=== PATIENT | female | born 1940 | race Caucasian/White ===

== ENCOUNTER 2022-09-29 08:12 | Outpatient (OUT) | payer MEDICARE, BC, SELFPAY ==
--- NOTE | 2022-09-29 08:27 | CT_ITS ---
The [address] [address] Patient Name: GIOVANNA BAUM MRN: [id number] date: 1940 Sex: F Assigned Patient Location: CT Current Patient Location: CT Accession/Order Number: [id number] Exam Date: 09/29/2022 08:40 Report Date: 09/29/2022 08:56 At the request of: GIOVANA JUAN Procedure: CT chest wo con EXAM: CT chest wo con HISTORY: Multiple Pulmonary Nodules R91.8 COMPARISON: CT chest 07/19/2022. TECHNIQUE: Axial soft tissue and lung windows of the chest with coronal and sagittal reformats. Findings: Lack of intravenous contrast limits evaluation. Unremarkable thyroid gland. The heart is mildly enlarged. There are mild coronary artery and aortic annular calcifications. No pericardial effusion. The thoracic aorta is normal caliber with mild atherosclerotic disease. The pulmonary arteries are nondilated. The central airways are patent. No pneumothorax. No pleural effusion. No significant interval change in the previously identified pulmonary nodules. The largest is within the right upper lobe measuring approximately 1.0 cm. Stable small region of left apical scarring. No enlarged mediastinal, hilar, axillary or supraclavicular nodes. Calcified mediastinal and hilar nodes likely relating to prior granulomatous disease. The gallbladder is surgically absent. No aggressive sclerotic or lytic osseous lesions. Mild multilevel degenerative spondylosis. IMPRESSION: 1. Stable pulmonary nodules. Nodule follow-up guidelines: Single or multiple solid nodule(s) greater than 8 mm in size warrant referral to a specialist or lung nodule clinic to determine if a 3 month follow-up, PET/CT, tissue sampling, or other strategy is warranted. Electronically authenticated by: NAVYA GUY Date: 09/29/2022 08:56
== END 2022-09-29 08:13 ==
LOC: CT 08:21
PROVIDERS: PCP Internal Medicine; Visit Provider Internal Medicine
DX: R91.8 Other nonspecific abnormal finding of lung field (principal)
CPT/HCPCS: 71250

== ENCOUNTER 2022-10-05 14:06 | Outpatient (OUT) | payer MEDICARE, BC, SELFPAY ==
--- NOTE | 2022-10-05 10:10 | PM.CN ---
Consult Note: HPI Data of Consult Patient: known to practice within the last 3 years Consult date: 10/05/22 Requesting Physician: DAVID KAPOOR NP Primary Care Provider: KENTON MAURICIO Consult Narrative Reason for consult: back pain Narrative: Rupali is here for low back pain exacerbation. Pain is in bilat low back and radiates down legs to knees. R>L with intermittent tingling. She had caudal NKECHI 07/20 with 99% relief of pain. We discussed repeating the NKECHI procedure and she is agreeable to this. She is unable to be scheduled until end of September so will give rx for medrol dose pack. She has had steroid pack before without issues. No new sensorimotor sx or new bowel or bladder issues. cc:: CC: DAVID KAPOOR NP Review of Systems ROS Status of ROS 10 or more systems reviewed and unremarkable except as noted in history and below Musculoskeletal Reports: back pain Meds Home Medications and Allergies Allergies Allergy/AdvReac Type Severity Reaction Status Date / Time midazolam [From Versed] Allergy Unknown Verified 10/05/22 10:18 Exam Constitutional Documenting provider has reviewed patient's vital signs: yes Common normals: no apparent distress, oriented x3, healthy appearing, alert and well nourished General appearance: cooperative, comfortable and well developed Orientation/consciousness: Yes awake, Yes oriented to person, Yes oriented to place and Yes oriented to time HENMS Common normals: normocephalic, external ears normal and moist oral mucous membranes Respiratory Common normals: normal respiratory effort, no retractions and no use of accessory muscles Effort & inspection: able to speak in complete sentences Back & Pelvis Lumbar spine/lower back: normal to inspection, ROM limited, pain with ROM, paraspinal muscle tenderness, paraspinal muscle spasm, straight leg raise negative bilaterally and other soft tissue findings (positive facet load, positive michelle r>l) Extremity Common normals: normal to inspection, full ROM and normal capillary refill Other: muscle strength 4/5 bilat with intact sensation bilat LE Assessment and Plan Assessment and Plan (1) Lumbar radiculopathy: Plan Caudal NKECHI medrol dose pack
== END 2022-10-05 14:07 ==
LOC: PM 11-16 14:06
PROVIDERS: PCP Internal Medicine; Visit Provider Nurse Practitioner
DX: M54.16 Radiculopathy, lumbar region (principal)
CPT/HCPCS: G0463

== ENCOUNTER 2022-10-24 09:03 | Day surgery (SDC) | payer MEDICARE, BC, SELFPAY ==
--- NOTE | 2022-10-24 08:53 | P.ON_ITS ---
Date of procedure: 10/24/22 Procedure: Caudal Epidural Steroid Injection Pre-operative diagnosis includes Lumbar Radiculopathy, Postoperative diagnosis same, Under fluoroscopic guidance Solution used for the injection is Marcaine 0.25% Depo-Medrol 80 mg total of 5ml Omnipaque 3cc,3ml total, 1ml was used for injection to confirm needle tip placement within the epidural space. Anesthesia: local anesthesia using 2% lidocaine, total no more than 5 mL. Timeout process compliant After obtaining informed consent .the patient was brought to the procedure room .placed in the prone position . the area was prepped and draped in a sterile fashion utilizing betadine. 25 gauge needle was used to create a skin wheal over the sacral hiatus identified under fluoroscopy. 17 gauge touhy needle was inserted over the anesthetized area and directed to the prairie band hiatus under fluoroscopic guidance . after piercing the sacrococcygeal ligament. Confirmation of needle tip placement within the epidural space was accomplished with injection of contrast solution. the steroid solution was then injected .needle was removed post procedurally. patient transferred to recovery area in stable condition. Discharged home after meeting criteria.l Surgeon: Cecily Herrmann
[2022-10-24 09:44] VITALS: BP 102/55; PULSE 66; RESP 16; TEMP 36.4; O2SAT 96
[2022-10-24 10:47] VITALS: RESP 20
[2022-10-24 10:51] VITALS: BP 137/66; PULSE 54; O2SAT 97
[2022-10-24] MEDS: IOHEXOL 240 MG/ML - 10 ML VIAL INJ (10:54)
[2022-10-24] MEDS: BUPIVACAINE HCL 0.25% PF 25 MG/10 ML VIAL 2 ML INJ (10:54)
[2022-10-24] MEDS: 0.9 % SODIUM CHLORIDE 10 ML SYRINGE - SALINE FLUSH 2 ML INJ (10:54)
[2022-10-24] MEDS: LIDOCAINE HCL 2% PF 100 MG/5 ML VIAL 2 ML INJ (10:55)
[2022-10-24] MEDS: METHYLPREDNISOLONE ACETATE 80 MG/ML VIAL INJ (10:55)
[2022-10-24 10:56] VITALS: BP 129/60; PULSE 56; O2SAT 96
== END 2022-10-24 10:58 | disposition home or self-care (01) ==
LOC: SURGOUT 09:03
PROVIDERS: PCP Internal Medicine; Visit Provider Anesthesiology Pain Medicine
DX: M54.16 Radiculopathy, lumbar region (principal)
CPT/HCPCS: 62323; J1040; Q9966

== ENCOUNTER 2022-11-09 09:33 | Outpatient (OUT) | payer MEDICARE, BC, SELFPAY ==
--- NOTE | 2022-11-09 09:51 | P.CN_ITS ---
Consult Note: HPI Data of Consult Patient: known to practice within the last 3 years Consult date: 11/09/22 Requesting Physician: DAVID KAPOOR NP Primary Care Provider: Ovi Crooks DO Consult Narrative Narrative: Here for f/u to caudal NKECHI done 10/24/22. She recieved 100% relief of pain with increased fx continued through today. Pain is midback today and 1/10 worse with activity. No new sensorimotor or bowel or bladder issues. No adverse med SE. JORGE- 20 cc:: CC: DAVID KAPOOR NP Review of Systems ROS Status of ROS 10 or more systems reviewed and unremarkable except as noted in history and below Musculoskeletal Reports: back pain PFSH [facility], [facility] Medical History (Updated 11/09/22 @ 10:00 by DAVID KAPOOR NP) Surgical History Meds Home Medications and Allergies Home Medications Medication Instructions Recorded Confirmed Type atorvastatin 40 mg tablet 40 mg PO DAILY 10/05/22 10/24/22 History baclofen 5 mg tablet 5 mg PO BID 10/05/22 10/24/22 History escitalopram oxalate 10 mg tablet 10 mg PO DAILY 10/05/22 10/24/22 History (Lexapro) gabapentin 100 mg capsule 100 mg PO DAILY 10/05/22 10/24/22 History isosorbide mononitrate 30 mg 30 mg PO DAILY 10/05/22 10/24/22 History tablet,extended release 24 hr losartan 50 mg tablet 50 mg PO DAILY 10/05/22 10/24/22 History metoprolol tartrate 25 mg tablet 12.5 mg PO DAILY 10/05/22 10/24/22 History oxybutynin chloride 15 mg 15 mg PO DAILY 10/05/22 10/24/22 History tablet,extended release 24 hr Allergies Allergy/AdvReac Type Severity Reaction Status Date / Time midazolam [From Versed] Allergy Unknown Verified 10/24/22 09:51 Exam Constitutional Documenting provider has reviewed patient's vital signs: yes Common normals: no apparent distress, average body habitus, oriented x3, no limitations, healthy appearing, alert and well nourished General appearance: cooperative, comfortable and well developed HENTX Common normals: normocephalic and moist oral mucous membranes Respiratory Common normals: normal respiratory effort, no retractions and no use of accessory muscles Effort & inspection: able to speak in complete sentences and symmetric chest movement Back & Pelvis Lumbar spine/lower back: normal to inspection, ROM limited, paraspinal muscle tenderness and paraspinal muscle spasm Other: muscle strength 4/5 bilat LE with intact sensation negative facet loading Extremity Common normals: normal to inspection, full ROM, normal capillary refill and no pedal edema Assessment and Plan Assessment and Plan (1) Lumbar radiculopathy: (2) Muscle spasm: Plan f/u in 3 months
== END 2022-11-09 09:34 | disposition home or self-care (01) ==
PROVIDERS: PCP Internal Medicine; Visit Provider Nurse Practitioner
DX: M54.16 Radiculopathy, lumbar region (principal); M62.838 Other muscle spasm
CPT/HCPCS: G0463

== ENCOUNTER 2023-01-22 14:11 | Outpatient (OUT) | payer MEDICARE, BC, SELFPAY ==
--- NOTE | 2023-01-22 14:18 | XR_ITS ---
The [place] [address] Patient Name: GIOVANNA BAUM MRN: [id number] date: 1940 Sex: F Assigned Patient Location: [facility] Current Patient Location: Accession/Order Number: [id number] Exam Date: 01/22/2023 14:22 Report Date: 01/23/2023 07:27 At the request of: KENTON MAURICIO Procedure: XR lumbar spine 2-3V EXAMINATION: XR lumbar spine 2-3V HISTORY: Acute right-sided low back pain w/o sciatica M54.50 COMPARISON: No relevant comparison available. FINDINGS: BONES: Levocurvature centered at L3. Moderate diffuse degenerative spondylosis and facet osteoarthropathy DISC SPACES: Moderate multilevel disc space narrowing with endplate sclerosis. Multilevel vacuum disks PARASPINOUS: Negative. No paraspinous abnormality is seen. OTHER: Right upper quadrant surgical clips from cholecystectomy XR/XR lumbar spine 2-3V IMPRESSION: Moderate degenerative changes with levocurvature Electronically authenticated by: GÓMEZ WALLER Date: 01/23/2023 07:27
--- NOTE | 2023-01-22 14:18 | XR_ITS ---
The [address] [address] Patient Name: GIOVANNA BAUM MRN: [id number] date: 1940 Sex: F Assigned Patient Location: [facility] Current Patient Location: [facility] Accession/Order Number: [id number] Exam Date: 01/22/2023 14:22 Report Date: 01/23/2023 07:29 At the request of: KENTON MAURICIO Procedure: XR hip RT 2V w/ pelvis PROCEDURE: XR hip RT 2V w/ pelvis COMPARISON: None. HISTORY: Right hip pain M25.551 FINDINGS: BONES:No acute fracture or dislocation. Moderate right and mild left hip osteoarthropathy with marginal osteophyte formation and joint space narrowing. Degenerative changes of the spine SOFT TISSUES:Negative. No visible soft tissue swelling. EFFUSION:None visible. OTHER: Negative. XR/XR hip RT 2V w/ pelvis IMPRESSION: Moderate right hip osteoarthritis Electronically authenticated by: GÓMEZ WALLER Date: 01/23/2023 07:29
== END 2023-01-22 14:12 | disposition home or self-care (01) ==
LOC: RAD 14:13
PROVIDERS: PCP Internal Medicine; Visit Provider Internal Medicine
DX: M54.50 Low back pain, unspecified (principal); M25.551 Pain in right hip; M16.11 Unilateral primary osteoarthritis, right hip
CPT/HCPCS: 72100; 73502

== ENCOUNTER 2023-02-07 08:52 | Outpatient (OUT) | payer MEDICARE, BC, SELFPAY ==
--- NOTE | 2023-02-07 09:05 | PM.CN ---
Consult Note: HPI Data of Consult Patient: known to practice within the last 3 years Requesting Physician: DAVID KAPOOR NP Primary Care Provider: Ovi Crooks DO Consult Narrative Reason for consult: f/u Narrative: Rupali Richardson a pleasant 82 year old female presents for evaluation of chronic low back pain. Patient recently had a fall and was seen by her family doctor who prescribed [place] for her pain which helped. Today rating pain 1/10 in low back. Patient had a caudal NKECHI in september which continues to provide 100% relief in radicular symptoms and 90% improvement in pain. cc:: CC: DAVID KAPOOR NP Review of Systems ROS Status of ROS 10 or more systems reviewed and unremarkable except as noted in history and below Musculoskeletal Reports: joint pain (right SIJ) PFSH PFS Medical History (Updated 02/07/23 @ 09:14 by Kelly Lott NP) Acid reflux ?K21.9 - Gastro-esophageal reflux disease without esophagitis (ICD-10) Atrial fibrillation ?I48.91 - Unspecified atrial fibrillation (ICD-10) Low back pain ?M54.50 - Low back pain, unspecified (ICD-10) Numbness and tingling ?R20.0 - Anesthesia of skin (ICD-10) ?R20.2 - Paresthesia of skin (ICD-10) Obesity ?E66.9 - Obesity, unspecified (ICD-10) Osteoarthritis ?M19.90 - Unspecified osteoarthritis, unspecified site (ICD-10) Sleep apnea ?G47.30 - Sleep apnea, unspecified (ICD-10) 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 - Acquired absence of unspecified finger(s) (ICD-10) Upper back pain ?M54.9 - Dorsalgia, unspecified (ICD-10) Surgical History H/O cardiac catheterization ?Z98.890 - Other specified postprocedural states (ICD-10) H/O hand surgery ?Z98.890 - Other specified postprocedural states (ICD-10) History of cholecystectomy ?Z90.49 - Acquired absence of other specified parts of digestive tract (ICD-10) History of hysterectomy ?Z90.710 - Acquired absence of both cervix and uterus (ICD-10) Hx of appendectomy ?Z90.49 - Acquired absence of other specified parts of digestive tract (ICD-10) S/P lumbar spine operation ?Z98.890 - Other specified postprocedural states (ICD-10) S/P sinus surgery ?Z98.890 - Other specified postprocedural states (ICD-10) S/P thoracentesis ?Z98.890 - Other specified postprocedural states (ICD-10) Meds Home Medications and Allergies Home Medications Medication Instructions Recorded Confirmed Type atorvastatin 40 mg tablet 40 mg PO DAILY 10/05/22 10/24/22 History baclofen 5 mg tablet 5 mg PO BID 10/05/22 10/24/22 History escitalopram oxalate 10 mg tablet 10 mg PO DAILY 10/05/22 10/24/22 History (Lexapro) gabapentin 100 mg capsule 100 mg PO DAILY 10/05/22 10/24/22 History isosorbide mononitrate 30 mg 30 mg PO DAILY 10/05/22 10/24/22 History tablet,extended release 24 hr losartan 50 mg tablet 50 mg PO DAILY 10/05/22 10/24/22 History metoprolol tartrate 25 mg tablet 12.5 mg PO DAILY 10/05/22 10/24/22 History oxybutynin chloride 15 mg 15 mg PO DAILY 10/05/22 10/24/22 History tablet,extended release 24 hr Allergies Allergy/AdvReac Type Severity Reaction Status Date / Time midazolam [From Versed] Allergy Unknown Verified 10/24/22 09:51 Exam Constitutional Documenting provider has reviewed patient's vital signs: yes Common normals: no apparent distress, oriented x3, healthy appearing, alert and well nourished General appearance: cooperative [facility] Common normals: normocephalic, hearing grossly normal bilaterally and moist oral mucous membranes Head and scalp: normocephalic Eye Common normals: PERRL Pupil: PERRL Neck & C-Spine Common normals: full ROM General: normal visual inspection Chest Common normals: inspection of chest normal Respiratory Common normals: normal respiratory effort, no retractions and no use of accessory muscles Back & Pelvis Lumbar spine/lower back: ROM limited and straight leg raise negative bilaterally Sacroiliac joints: SI joint(s) abnormal (right positive michelle, gaenslen, tender over PSIS) Extremity Common normals: normal to inspection and full ROM Neuro Common normals: oriented x3, CN's II-XII intact bilaterally, moves all extremities, no focal motor deficits, no sensory deficits noted and deep tendon reflexes 2+ bilaterally Sensorium/orientation: alert Motor exam: strength 5/5 throughout and no movement abnormalities noted Psych Common normals: mental status grossly normal, thought process normal, cooperative, affect normal, speech normal and activity/motor behavior normal Speech: normal speech Thought process: normal thought process Results Additional Findings Additional findings: I have checked an OARRS report on this patient today and there are no aberrancies noted in the prescribing history.?? A drug screen was completed and reviewed within the last year, and if there has not been a drug screen completed we ordered one today to monitor higher risk, state monitored pain medication use. As part of providing excellent, safe, comprehensive care, the following was completed at our patient's visit: 1. A medication reconciliation and review to ensure accurate knowledge of current/active medications, including asking our patients to inform us about any upuc-muo-gmlritc medications or herbal remedies/nutritional supplements/alternative remedies. 2. A review to specifically ensure our patients have had annual screening for: elevated body mass index (BMI), tobacco use, screening for depression, and screening for unhealthy alcohol use. When screening is concerning, patients are provided with education and the specific recommendation to discuss the concerning health issue and treatment options with their primary care provider. Assessment and Plan Assessment and Plan (1) Chronic right sacroiliac joint pain: (2) Lumbar radiculopathy: Assessment and Plan: symptoms resolved since caudal NKECHI, ongoing relief >80% (3) Muscle spasm: (4) Lumbar spondylosis: Plan declining SIJ injection on right side medications managed through PCP pain well controlled f/u PRN
== END 2023-02-07 08:53 | disposition home or self-care (01) ==
LOC: PM 08:53
PROVIDERS: PCP Internal Medicine; Visit Provider Nurse Practitioner
DX: M47.26 Other spondylosis with radiculopathy, lumbar region (principal); M62.838 Other muscle spasm; M53.3 Sacrococcygeal disorders, not elsewhere classified; G89.29 Other chronic pain
CPT/HCPCS: G0463

== ENCOUNTER 2023-02-21 10:48 | Outpatient (OUT) | payer MEDICARE, BC, SELFPAY ==
--- NOTE | 2023-02-21 11:01 | MR_ITS ---
The [address] [address] Patient Name: GIOVANNA BAUM MRN: [facility]:[id number] date: 1940 Sex: F Assigned Patient Location: LAB Current Patient Location: LAB Accession/Order Number: [id number] Exam Date: 02/21/2023 11:10 Report Date: 02/21/2023 12:29 At the request of: KENTON MAURICIO Procedure: MR head/brain wo/w con EXAM: MR head/brain wo/w con HISTORY: Jerking Movements Of Extremities R25.2, Left Leg Weakness COMPARISON: None. TECHNIQUE: Multiplanar multisequence MR imaging of the brain was performed with and without intravenous contrast. FINDINGS: Motion artifact mildly degrades evaluation of multiple sequences. Calvarium/skull base: No focal marrow replacing lesion suggestive of neoplasm. Orbits: Bilateral platinum ocular lens replacements. Paranasal sinuses: Inferior right maxillary sinus mucosal retention cyst versus polyp. Brain: No restricted diffusion. No significant white matter disease. Parenchymal volume is grossly appropriate. No abnormal intracranial enhancement. No mass effect, hemorrhage, or hydrocephalus. Grossly normal flow-related signal in the major intracranial arteries and dural sinuses. MR/MR head/brain wo/w con IMPRESSION: No acute intracranial process. Grossly unremarkable appearance of brain parenchyma for patient's age. Electronically authenticated by: JUAN JOSE ALLEN Date: 02/21/2023 12:29
[2023-02-21 11:08] LABS: Estimated GFR (African America >60 (>=60); Estimated GFR (Non-African Ame 50 (>=60)
== END 2023-02-21 10:49 | disposition home or self-care (01) ==
LOC: LAB 10:48
PROVIDERS: PCP Internal Medicine; Visit Provider Internal Medicine
DX: R29.898 Other symptoms and signs involving the musculoskeletal system (principal); R25.2 Cramp and spasm
CPT/HCPCS: 36415; 70553; 82565; A9575

== ENCOUNTER 2023-02-22 12:22 | Outpatient (OUT) | payer MEDICARE, BC, SELFPAY ==
[2023-02-22 12:40] LABS: Basophils Percent Auto 0.1 % (0.2-2.0); Eosinophils Absolute Auto 0.1 10^3/uL (0.0-0.7); Eosinophils Percent Auto 1.6 % (0.9-7.0); Hematocrit 37.9 % (36.0-48.0); Hemoglobin 12.2 g/dL (12.0-16.0); Immature Granulocytes Abs Auto 0.03 10^3/uL (0.00-0.03); Immature Granulocytes Pct Auto 0.4 % (0.0-0.5); Lymphocytes Absolute Auto 1.8 10^3/uL (1.2-3.8); Lymphocytes Percent Auto 24.5 % (20.5-60.0); Mean Corpuscular HGB Conc 32.2 g/dL (29.9-35.2); Mean Corpuscular Hemoglobin 30.1 pg (26.7-34.0); Mean Corpuscular Volume 93.6 fL (81.0-99.0); Mean Platelet Volume 11.2 fL (9.5-13.5); Monocytes Absolute Auto 0.6 10^3/uL (0.3-0.8); Neutrophils Absolute Auto 4.9 10^3/uL (1.4-6.5); Neutrophils Percent Auto 65.4 % (43.0-75.0); Platelet Count 199 10^3/uL (150-450); Red Blood Count 4.05 10^6/uL (4.20-5.40); White Blood Count 7.4 10^3/uL (4.0-11.0)
[2023-02-22 13:54] LABS: Alanine Aminotransferase 23 U/L (14-59); Albumin Globulin Ratio 1.1; Albumin Level 3.5 g/dL (3.4-5.0); Alkaline Phosphatase 81 U/L (46-116); Anion Gap 9.5; Aspartate Amino Transferase 17 U/L (15-37); BUN Creatinine Ratio 14.8; Bilirubin Total 1.1 mg/dL (0.2-1.0); Calcium 9.5 mg/dL (8.5-10.1); Carbon Dioxide 30.5 mmol/L (21.0-32.0); Chloride 103 mmol/L (98-107); Estimated GFR (African America 46 (>=60); Estimated GFR (Non-African Ame 38 (>=60); Globulin 3.2 g/dL; Glucose 110 mg/dL (74-106); Sodium 139 mmol/L (136-145); Thyroid Stimulating Hormone 1.676 uIU/mL (0.358-3.740); Total Protein 6.7 g/dL (6.4-8.2)
== END 2023-02-22 12:23 | disposition home or self-care (01) ==
LOC: LAB 12:26
PROVIDERS: PCP Internal Medicine; Visit Provider Internal Medicine
DX: R29.898 Other symptoms and signs involving the musculoskeletal system (principal); R25.2 Cramp and spasm; I10 Essential (primary) hypertension
CPT/HCPCS: 36415; 80053; 82607; 84443; 85025

== ENCOUNTER 2023-02-28 11:14 | Outpatient (OUT) | payer MEDICARE, BC, SELFPAY ==
--- NOTE | 2023-02-28 11:17 | US_ITS ---
[address] [address] Patient Name: GIOVANNA BAUM MRN: [id number] date: 1940 Sex: F Assigned Patient Location: Current Patient Location: [place] Accession/Order Number: [id number] Exam Date: 02/28/2023 11:20 Report Date: 02/28/2023 16:54 At the request of: KENTON MAURICIO Procedure: US carotid duplex BI EXAMINATION: US carotid duplex BI HISTORY: Cerebral Infraction, Thrombosis Of Cerebral Arteries COMPARISON: No relevant comparison available. TECHNIQUE: Duplex Doppler ultrasound analysis of carotid and vertebral arteries. . Bilateral carotid arterial duplex examination was performed using B-mode, color flow and spectral analysis. Carotid stenosis is reported according to validated velocity parameters, similar to NASCET criteria. FINDINGS: RIGHT CAROTID ARTERY No significant atherosclerotic plaque Subclavian: PSV: 131.9 cm/s cm/s EDV: 3.7 cm/s cm/s CCA: Prox: PSV: 74.7 cm/s cm/s EDV: 19.5 cm/s cm/s Mid: PSV: 60.9 cm/s cm/s EDV: 15.6 cm/s cm/s Distal: PSV: 58.1 cm/s cm/s EDV: 12.8 cm/s cm/s BULB: PSV: 52.9 cm/s cm/s EDV: 15.4 cm/s cm/s ICA: Prox: PSV: 45.2 cm/s cm/s EDV: 15.4 cm/s cm/s Mid: PSV: 68.4 cm/s cm/s EDV: 23.2 cm/s cm/s Distal: PSV: 35.5 cm/s cm/s EDV: 13.5 cm/s cm/s ECA: PSV: 76.8 cm/s cm/s EDV: 8.7 cm/s cm/s VERTEBRAL: PSV: 36.1 cm/s cm/s EDV: 12.0 cm/s cm/s, antegrade ICA/CCA ratio: PSV: 0.9 EDV: 1.2 LEFT CAROTID ARTERY No significant atherosclerotic plaque Subclavian: PSV: 155.4 cm/s cm/s EDV: 0.0 cm/s CCA: Prox: PSV: 77.4 cm/s cm/s EDV: 20.8 cm/s Mid: PSV: 77.4 cm/s cm/s EDV: 19.2 cm/s Distal: PSV: 72.5 cm/s cm/s EDV: 20.8 cm/s BULB: PSV: 46.0 cm/s cm/s EDV: 9.8 cm/s ICA: Prox: PSV: 47.1 cm/s cm/s EDV: 12.0 cm/s Mid: PSV: 50.4 cm/s cm/s EDV: 18.6 cm/s Distal: PSV: 64.7 cm/s cm/s EDV: 24.1 cm/s ECA: PSV: 93.5 cm/s cm/s EDV: 9.5 cm/s VERTEBRAL: PSV: 37.3 cm/s cm/s EDV: 12.0 cm/s , antegrade ICA/CCA ratio: PSV: 0.8 EDV: 1.2 US/US carotid duplex BI IMPRESSION: 0-49% flow stenosis bilateral internal carotid arteries Spectral Doppler US Thresholds (Reference: Omar EG, et al. Radiology 2000; 214:247-252) Stenosis (%) PSV (cm/sec) VICA/VCCA 0-49 <150 <2.5 50-69 150-225 2.5-4.0 >70 >225 >4.0 Electronically authenticated by: GÓMEZ WALLER Date: 02/28/2023 16:54
--- NOTE | 2023-02-28 12:39 | CA_ITS ---
The [facility] Test Date: 2023-03-12 Pat Name: GIOVANNA BAUM Department: Room: - Gender: Female [employer]ger: : 1940 Requested By: KENTON MAURICIO Order Number: [id number] Reading MD: KENTON MAURICIO Interpretive Statements Predominant rhythm is sinus with average rate of 62 bpm Tachycardia - max rate of 148 bpm w/ episode of SVT - 4 episodes of PSVT w/ longest duration of 6 beats Bradycardia - min rate of 44 bpm - longest episode of 3h 43min 17sec w/ rates between 45-55 bpm Ventricular ectopy - 927 total (<1%) - 925 PVC - 2 couplets Patient triggered events: none IMpression: Predominant rhythm is sinus with average rate of 62 bpm Fastest rate of 148 bpm and slowest rate of 44 bpm 925 PVC, 2 couplets No atrial fibrillation No pauses or blocks Electronically Signed On 03-13-2023 7:19:45 EST by KENTON MAURICIO
== END 2023-02-28 11:15 | disposition home or self-care (01) ==
LOC: US 11:14
PROVIDERS: PCP Internal Medicine; Visit Provider Internal Medicine
DX: I63.323 Cerebral infarction due to thrombosis of bilateral anterior cerebral arteries (principal); I25.10 Atherosclerotic heart disease of native coronary artery without angina pectoris; I10 Essential (primary) hypertension; R09.89 Other specified symptoms and signs involving the circulatory and respiratory systems
CPT/HCPCS: 93242; 93880

== ENCOUNTER 2023-03-02 08:48 | Outpatient (OUT) | payer MEDICARE, BC, SELFPAY ==
[2023-03-02 10:46] LABS: Chol HDL Ratio 2.1; Cholesterol 130 mg/dL (<=200); HDL Cholesterol 62 mg/dL (40-60); Triglycerides 124 mg/dL (<=150); VLDL CHOLESTEROL 24.8 mg/dL
[2023-03-02 12:15] LABS: Estimated Average Glucose 117 mg/dL; Glycohemoglobin A1C 5.7 % (4.5-6.2)
== END 2023-03-02 08:49 | disposition home or self-care (01) ==
LOC: LAB 08:50
PROVIDERS: PCP Internal Medicine; Visit Provider Psychiatry & Neurology Neurology
DX: I63.9 Cerebral infarction, unspecified (principal)
CPT/HCPCS: 36415; 80061; 83036

== ENCOUNTER 2023-03-06 12:48 | Outpatient (OUT) | payer MEDICARE, BC, SELFPAY ==
--- NOTE | 2023-03-06 13:41 | CA_ITS ---
Patient Name GIOVANNA BAUM MR# Age Sex Date Time [id number] F 03/06/2023 12:59 At the Request Of DR Ovi Crooks D.O. ECHOCARDIOGRAM REPORT PROCEDURE: CA ECHO DOPPLER COMPLETE INDICATIONS: ASHD, CVA, Primary HTN COMPARISON: None. DESCRIPTION: COMPLETE ECHOCARDIOGRAM Real-time transthoracic echocardiography with 2D, M-mode, spectral and color flow Doppler performed. QUALITY: Technical quality was good. LEFT VENTRICLE: Normal chamber size. Mild concentric left ventricular hypertrophy. LV EF: Global left ventricular systolic function is normal; visually estimated ejection fraction is 55-60% DIASTOLIC: Normal diastolic function. ATRIAL SEPTUM: Visually appears intact. LEFT ATRIUM: Normal chamber size. RIGHT ATRIUM: Normal chamber size. RIGHT VENTRICLE: Normal chamber size. Normal right ventricular systolic function. TRICUSPID VALVE: Normal mobility and thickness. Mild regurgitation. Doppler studies reveal mildly (35-45) elevated right sided pressures. RVSP 37 mmHg MITRAL VALVE: Normal mobility and thickness. No evidence of mitral valve stenosis. There is no mitral annular calcification. Trivial mitral regurgitation. AORTIC VALVE: Normal trileaflet appearance. No visible sclerosis. Normal leaflet mobility. No evidence of aortic valve stenosis. No aortic regurgitation. AORTIC ROOT: Normal diameter and appearance. PULMONIC VALVE: Not well visualized. No stenosis. No regurgitation. PERICARDIUM: Anterior free space; trivial effusion vs fat pad. IVC: Collapses with inspirations. CONCLUSION: 1. Global left ventricular systolic function is normal; visually estimated ejection fraction is 55-60% 2. The right ventricle is normal in size and systolic function 3. Normal diastolic function 4. Mildly increased left ventricular wall thickness 5. Mild tricuspid regurgitation 6. Right ventricular systolic pressure is mildly elevated; RVSP 37 mmHg 7. Anterior free space; trivial effusion versus fat pad Adult Echocardiography Procedure Report Left Ventricle LVEDD (3.7 - 5.6 cm): 4.36 cm LVESD (2.2 - 4.0 cm): 2.34 cm LVIVS thickness (0.6 - 1.2 cm): 1.07 cm LVPW thickness (0.5 - 1.0 cm): 0.97 cm e': 0.08 m/s E - e': 8.74 LVOT Max Gradient: 2.51 mm[Hg] LVOT Area (cm2): 0.79 m/s Peak Velocity (LVOT): 0.79 m/s LVOT Diameter 1.96 cm Left Atrium LA Volume Index (2D A2C): 35.42 ml/m2 Left Atrium Systolic Dimension: 4.03 cm Mitral Valve MV E to A Ratio: 0.82 Mitral Valve A-Wave Peak Velocity: 0.82 m/s Mitral Valve E-Wave Peak Velocity: 0.67 m/s Right Ventricle RV Internal Diastolic Dimension: 4.16 cm Aorta AO Root Diam: 2.71 cm Ascending Ao Diam: 2.47 cm Aortic Valve AoV Area (Peak Jose Alfredo): 1.80 cm2, 1.80 cm2 Peak Velocity(Antegrade Flow): 1.33 m/s Peak Gradient(Antegrade Flow): 7.08 mm[Hg] Tricuspid Valve Peak Velocity (Regurgitant Flow): 2.53 m/s, 2.54 m/s, 2.67 m/s, 2.93 m/s Pulmonic Valve Peak Velocity: 1.04 m/s Peak Gradient: 4.86 mm[Hg], 3.79 mm[Hg] Right Atrium Right Atrium Systolic Pressure: 38.20 ml, 38.20 ml Dictated by: Keshav Sanchez M.D. on 03/07/2023 at 12:30 Approved by: Keshav Sanchez M.D. on 03/07/2023 at 12:32
== END 2023-03-06 12:49 | disposition home or self-care (01) ==
LOC: CARD 12:48
PROVIDERS: PCP Internal Medicine; Visit Provider Internal Medicine
DX: I63.323 Cerebral infarction due to thrombosis of bilateral anterior cerebral arteries (principal); I25.10 Atherosclerotic heart disease of native coronary artery without angina pectoris; I10 Essential (primary) hypertension
CPT/HCPCS: 93306

== ENCOUNTER 2023-03-07 13:31 | Outpatient (OUT) | payer MEDICARE, BC, SELFPAY ==
--- NOTE | 2023-03-07 13:37 | MR_ITS ---
[address] [address] Patient Name: GIOVANNA BAUM MRN: [id number] date: 1940 Sex: F Assigned Patient Location: MRI Current Patient Location: MRI Accession/Order Number: [id number] Exam Date: 03/07/2023 13:42 Report Date: 03/07/2023 14:37 At the request of: CAROLINA LEO Procedure: MR angio head wo con EXAMINATION: MR angio head wo con HISTORY: Cerebral Infraction Left Hemisphere I63.9 COMPARISON: MRI brain 02/21/2023 TECHNIQUE: MR angiography was performed in the usual manner. Multiplanar reconstructed 2D and 3D images of the cerebral arteries were created and interpreted. FINDINGS: INTERNAL CAROTIDS: No visible stenosis or aneurysm. ANTERIOR CEREBRALS: No visible stenosis or aneurysm. MIDDLE CEREBRALS: No visible stenosis or aneurysm. POSTERIOR CEREBRALS: No visible stenosis or aneurysm. BASILAR: No visible stenosis or aneurysm. VERTEBRALS: No visible stenosis or aneurysm. OTHER: Negative with no evidence of a vascular malformation. MR/MR angio head wo con IMPRESSION: 1. Normal MR angiography of the brain. Electronically authenticated by: WILLIAM BERMEO Date: 03/07/2023 14:37
--- OUTSIDE RECORDS SUMMARY | 2023-04-17 15:21 | XMS_ITS | CCD ---
Author Name Unknown Address [address] [place] [address] Organization [facility] Care Team Providers Care Program Professional Name Role Phone Zahler, Quinn Unavailable Unavailable Zahler, Quinn Unavailable Unavailable Shelleyhler, Quinn Unavailable Unavailable OVI CROOKS~[id number] UNKNOWN Unavailable Unavailable Zahler, Quinn Unavailable Unavailable Zahler, Quinn Unavailable Unavailable Kala, Quinn Unavailable Unavailable OVI CROOKS~[id number] UNKNOWN Unavailable Unavailable MD Brina Morrissey Attending Provider Brina Morrissey Unavailable Ovi Crooks Unavailable DR OVI CROOKS Primary Care Unavailable CRISTOBAL .MARY Admitting Unavailable CRISTOBAL .MARY Attending Unavailable JESSICA ., DR ELIAZBETH Cerna Attending Unavailable JESSICA ., DR ELIZABETH Cerna Consulting Unavailable JESSICA ., DR ELIZABETH Cerna Admitting Unavailable BALL, DR FUNG Primary Care Unavailable HALKER ., DAVID Admitting Unavailable HALKER ., DAVID Attending Unavailable BALL, DR FUNG Primary Care Unavailable BALL, DR FUNG Admitting Unavailable BALL, DR FUNG Attending Unavailable BALL, DR FUNG Consulting Unavailable VALERIY, DR FUNG Primary Care Unavailable WEST, DR GÓMEZ Mclean Consulting Unavailable VALERIY, DR FUNG Admitting Unavailable BALL, DR FUNG Primary Care Unavailable BALL, DR FUNG Attending Unavailable BALL, DR FUNG Consulting Unavailable WEST, DR GÓMEZ Mclean Consulting Unavailable VALERIY, DR FUNG Primary Care Unavailable JESSICA ., DR ELIZABETH Cerna Attending Unavailable JESSICA ., DR ELIZABETH Cerna Consulting Unavailable JESSICA ., DR ELIZABETH Cerna Admitting Unavailable BALL, DR FUNG Primary Care Unavailable JESSICA ., DR ELIZABETH Cerna Attending Unavailable JESSICA ., DR ELIZABETH Cerna Admitting Unavailable LAKSHMIPATHY ., NARENDRANBRETT Admitting Elodia vailable LAKSHMIPATHY ., NARMARIA C Attending Elodia vailable LAKSHMIPATHY ., NARENDRANATH Consulting Elodia vailable BALL, DR FUNG Primary Care Unavailable CRISTOBAL ., MARY Consulting Unavailable JESSICA ., DR ELIZABETH Cerna Admitting Unavailable JESISCA ., DR ELIZABETH Cerna Attending Unavailable BALL, DR FUNG Primary Care Unavailable JESSICA ., DR ELIZABETH Cerna Attending Unavailable JESSICA ., DR ELIZABETH Cerna Consulting Unavailable JESSICA ., DR ELIZABETH Cerna Admitting Unavailable BALL, DR FUNG Primary Care Unavailable JLUISLLUVIA Consulting Unavailable JESSICA ., DR ELIZABETH Cerna Admitting Unavailable JESSICA ., DR ELIZABETH Cerna Attending Unavailable JESSICA ., DR ELIZABETH Cerna Consulting Unavailable BALL, DR FUNG Primary Care Unavailable CRISTOBAL ., MARY Consulting Unavailable JESSICA ., DR ELIZABETH Cerna Attending Unavailable JESSICA ., DR ELIZABETH Cerna Admitting Unavailable BALL, DR FUNG Primary Care Unavailable LAKSHMIPATHY ., NARENDRANATH Consulting Elodia vailable LAKSHMIPATHY ., NARENDRANATH Admitting Elodia vailable LAKSHMIPATHY ., RUBEN Attending Elodia vailable BALL, DR FUNG Primary Care Unavailable JESSICA ., DR ELIZABETH Cerna Attending Unavailable JESSICA ., DR ELIZABETH Cerna Admitting Unavailable BALL, DR FUNG Primary Care Unavailable JESSICA ., DR ELIZABETH Cerna Consulting Unavailable BALL, DR FUNG Admitting Unavailable BALL, DR FUNG Primary Care Unavailable BALL, DR FUNG Attending Unavailable BALL, DR FUNG Consulting Unavailable NEFCY, WHITNEY Consulting Unavailable CRISTOBAL ., MARY Consulting Unavailable JESSICA ., DR ELIZABETH Cerna Attending Unavailable JESSICA ., DR ELIZABETH Cerna Admitting Unavailable BALL, DR FUNG Primary Care Unavailable BALL, DR FUNG Primary Care Unavailable SAMSA ., GIOVANA Admitting Unavailable SAMSA ., GIOVANA Attending Unavailable SAMSA ., GIOVANA Consulting Unavailable ALGHOTHANI, MOHAMAD Consulting Unavailable ALGHOTHANI, MOHAMAD Admitting Unavailable ALGHOTHANI, MOHAMAD Attending Unavailable BALL, DR FUNG Primary Care Unavailable BALL, DR FUNG Primary Care Unavailable JESSICA ., DR ELIZABETH Cerna Attending Unavailable JESSICA ., DR ELIZABETH Cerna Admitting Unavailable HALKER ., DAVID Attending Unavailable HALKER ., ADVID Consulting Unavailable HALKER ., DAVID Admitting Unavailable BALL, DR FUNG Primary Care Unavailable BALL, DR FUNG Admitting Unavailable BALL, DR FUNG Attending Unavailable BALL, DR FUNG Consulting Unavailable BALL, DR FUNG Primary Care Unavailable ZIEBER, DR WILLIAM Alas Consulting Unavailable JESSICA ., DR ELIZABETH Cerna Attending Unavailable BALL, DR FUNG Primary Care Unavailable JESSICA ., DR ELIZABETH Cerna Consulting Unavailable JASKARAN ., DR ELIZABETH Cerna Admitting Unavailable MARY WHEELER Admitting Unavailable VALERIY, DR FUNG Primary Care Unavailable MARY WHEELER Attending Unavailable VALERIY, DR FUNG Consulting Unavailable ELVIE, DR WILLIAM Alas Consulting Unavailable SUSU .MARY Consulting Unavailable ALGHOTHANI, MOHAMAD Attending Unavailable ALGHOTHANI, MOHAMAD Attending Unavailable ALGHOTHANI, MOHAMAD Attending Unavailable ALGHOTHANI, MOHAMAD Attending Unavailable ALGHOTHANI, MOHAMAD Admitting Unavailable ALGHOTHANI, MOHAMAD Attending Unavailable ALGHOTHANI, MOHAMAD Referring Unavailable ALGHOTHANI, MOHAMAD Referring Unavailable Allergies Allergy Classification Reported Allergen(s) Allergy Type Date of Onset Reaction(s) Facility (1 source) Midazolam Drug Allergy 10-03-2016 [facility] Repository (1 source) Midazolam; 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: [MIDAZOLAM] Drug Allergy 05-10-2022 [facility] Repository Medications Current Medications Medication Drug Class(es) Dates Sig (Normalized) Sig (Original) acetaminophen 325 mg / HYDROcodone bitartrate 5 mg oral tablet (9 sources) Opioid Agonist Start: 01-19-2023 take 1 tablet by mouth twice daily as needed for pain HYDROcodone-Acetam inophen 5-325 MG 1 tablet Orally bid as needed for pain for 7 days Dec, Active aspirin 81 mg delayed release oral tablet (13 sources) Platelet Aggregation Inhibitor, Nonsteroidal Anti-inflammatory Drug take 1 tablet by mouth every twenty-four hours Aspirin Adult Low Dose 81 MG 1 tablet Orally Once a day Active atorvastatin 40 mg oral tablet (13 sources) HMG-CoA Reductase Inhibitor take 1 tablet by mouth every twenty-four hours Atorvastatin Calcium 40 MG 1 tablet Orally Once a day Active 120 actuat budesonide 0.16 mg/actuat / formoterol fumarate 0.0045 mg/actuat metered dose inhaler (11 sources) Corticosteroid, beta2-Adrenergic Agonist Start: 07-31-2022 take 2 puff(s) by inhalation twice daily Symbicort 160-4.5 MCG/ACT 2 puffs Inhalation Twice a day Jul, Active ciprofloxacin 3 mg/ml ophthalmic solution (5 sources) Quinolone Antimicrobial Start: 07-17-2022 take 2 drop(s) into the eye(s) every four hours Ciprofloxacin HCl 0.3 % 2 drops Ophthalmic every 4 hours while awake for 7 days Jun, Active CPAP Machine (17 sources) CPAP Machine Act susu escitalopram 10 mg oral tablet (17 sources) Serotonin Reuptake Inhibitor Escitalopram Oxalate 10 MG TAKE 1 TABLET EVERY DAY Active gabapentin 100 mg oral capsule (17 sources) Anti-epileptic Agent Gabapentin 100 MG TA KE 1 CAPSULE AT BEDTIME Active hydroCHLOROthiazide 25 mg oral tablet (15 sources) Thiazide Diuretic hydroCHLOROthi azide 25 MG TAKE 1 TABLET EVERY DAY Active Hydrochlorothiazide-25 mg 25 mg (2 sources) take 1 tablet by mouth once daily Hydrochlorothiazide-25 mg 25 mg 1 tablet Orally Once a day Active 24 hr isosorbide mononitrate 30 mg extended release oral tablet (13 sources) Nitrate Vasodilator take 1 tablet by mouth every twenty-four hours Isosorbide Mononitrate ER 30 MG 1 tablet in the morning Orally Once a day Active losartan potassium 50 mg oral tablet (17 sources) Angiotensin 2 Receptor Gustavo Losartan Potassium 5 0 MG TAKE 1 TABLET EVERY DAY Active 24 hr metoprolol succinate 25 mg extended release oral tablet (13 sources) beta-Adrenergic Gustavo take 1 tablet by mouth every twenty-four hours Metoprolol Succinate ER 25 MG 1 tablet Orally Once a day Active omeprazole 40 mg delayed release oral capsule (13 sources) Proton Pump Inhibitor Start: 2022 take 1 capsule by mouth once daily Omeprazole 40 MG 1 capsule 30 minutes before morning meal Orally Once a day Jun, Active 24 hr oxybutynin chloride 15 mg extended release oral tablet (13 sources) Cholinergic Muscarinic Antagonist oxyBUTYnin Chloride ER 15 MG TAKE 1 TABLET EVERY DAY for 90 Active Completed/Discontinued Medications Medication Drug Class(es) Dates Sig (Normalized) Sig (Original) baclofen 10 mg oral tablet (7 sources) gamma-Aminobutyric Acid-ergic Agonist take 1 tablet by mouth every twelve hours Baclofen 10 MG 1 tablet as needed Orally Twice a day Not-Taking fluticasone propionate 0.05 mg/actuat metered dose nasal spray (7 sources) Corticosteroid take 1 spray(s) nasal route once daily Flonase 50 MCG/ACT 1 spray in each nostril Nasally Once a day Not-Taking loratadine 10 mg oral tablet (7 sources) take 1 tablet by mouth once daily Claritin 10 MG 1 tablet Orally Once a day Not-Taking pantoprazole 40 mg delayed release oral tablet (7 sources) Proton Pump Inhibitor Start: 10-08-2012 take 1 tablet by mouth every twenty-four hours Protonix 40 mg 1 tablet Orally daily Sep, Not-Taking raNITIdine 300 mg oral tablet (7 sources) Histamine-2 Receptor Antagonist Start: 11-09-2014 take 1 tablet by mouth once daily Zantac 300 MG 1 tablet Orally daily Oct, Not-Taking triamcinolone acetonide 40 mg/ml injectable suspension (20 sources) Corticosteroid Start: 12-21-2021 Kenalog-40 Dec, 20 mg Tylenol Arthritis Pain 650 MG (7 sources) Tylenol Arthritis Pain 650 MG as directed Orally Not-Taking Tylenol Arthriti s Pain 650 MG as directed Orally Active Problems Active Problems Problem Classification Problem Date Documented Da te Episodic/Chronic Acute bronchitis (1 source) Acute bronchitis; 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: [Acute bronchitis due to other specified organisms] Episodic Acute cerebrovascular disease (6 sources) Cerebral infarction; 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: [Cerebral infarction, unspecified] Chronic Asthma (13 sources) Uncomplicated mild persistent asthma; 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: [Mild persistent asthma, uncomplicated] Onset: 6 Chronic Cardiac dysrhythmias (1 source) Paroxysmal atrial fibrillation; 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: [Paroxysmal atrial fibrillation] Chronic Coronary atherosclerosis and other heart disease (20 sources) Coronary arteriosclerosis; 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: [Atherosclerotic heart disease of [place] coronary artery without angina pectoris] Onset: 3 Chronic Disorders of lipid metabolism (20 sources) Hyperlipidemia, unspecified; 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: [Hypercholesterolemia] Onset: 3 Chronic Esophageal disorders (20 sources) Gastroesophageal reflux disease; 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: [GERD [Gastroesophageal reflux disease]] Chronic Esophageal disorders (2 sources) Esophageal disorders; 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: [Gastro-esophageal reflux disease with esophagitis, without bleeding] Essential hypertension (19 sources) Essential hypertension; 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: [Essential (primary) hypertension] Onset: 2 Chronic Genitourinary symptoms and ill-defined conditions (1 source) Urinary incontinence; 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: [Other urinary incontinence] Chronic Genitourinary symptoms and ill-defined conditions (1 source) Dysuria; 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: [Dysuria] Episodic Heart valve disorders (1 source) Rheumatic disorders of both mitral and tricuspid valves; 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: [RHEUMATIC D/O MITRAL TRICUSPID VALV] Onset: 2 Chronic Immunizations and screening for infectious disease (1 source) Vaccination given; 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: [Encounter for immunization] Episodic Inflammation; infection of eye (except that caused by tuberculosis or sexually transmitteddisease) (1 source) Unspecified acute conjunctivitis, bilateral Episodic Malaise and fatigue (2 sources) Chronic fatigue, unspecified; 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: [Chronic fatigue syndrome] Onset: 2 Chronic Menopausal disorders (1 source) Primary ovarian failure; 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: [Other primary ovarian failure] Onset: 6 Chronic Mood disorders (17 sources) Recurrent major depression in full remission; 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: [Major depressive disorder, recurrent, in full remission] Onset: 5 Chronic Mycoses (1 source) Candidiasis of skin and nails; 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: [Candidiasis of skin and nail] Episodic Nonspecific chest pain (7 sources) Chest pain, unspecified; 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: [Chest pain] Onset: 2 Episodic Nutritional deficiencies (1 source) Vitamin D deficiency; 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: [Vitamin D deficiency, unspecified] Onset: 8 Chronic Osteoarthritis (20 sources) Arthritis of bilateral first carpometacarpal joints; 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: [Bilateral primary osteoarthritis of first carpometacarpal joints] Onset: 6 Resolved: 2 Chronic Other aftercare (1 source) Long-term current use of drug therapy; 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: [Other medical terminologist (current) drug therapy] Episodic Other circulatory disease (1 source) H/O: cardiovascular disease; 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: [Personal history of other diseases of the circulatory system] Episodic Other circulatory disease (1 source) Other specified symptoms and signs involving the circulatory and respiratory systems Episodic Other congenital anomalies (1 source) Congenital spondylolysis of lumbosacral region; 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: [Congenital spondylolysis, lumbosacral region] Onset: 6 Chronic Other connective tissue disease (3 sources) Pain in left hand Onset: 2 Resolved: 2 Episodic Other connective tissue disease (3 sources) Pain in right hand Onset: 2 Resolved: 2 Episodic Other connective tissue disease (2 sources) Other symptoms and signs involving the musculoskeletal system Episodic Other connective tissue disease (2 sources) Cramp and spasm Episodic Other diseases of bladder and urethra (13 sources) Overactive bladder; 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: [Overactive bladder] Chronic Other diseases of bladder and urethra (1 source) Overactive bladder Chronic Other ear and sense organ disorders (1 source) Impacted cerumen; 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: [Impacted cerumen, right ear] Episodic Other gastrointestinal disorders (17 sources) Dysphagia; 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: [Dysphagia] Episodic Other injuries and conditions due to external causes (1 source) History of fall; 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: [History of falling] Episodic Other lower respiratory disease (18 sources) Cough; 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: [Cough] Episodic Other lower respiratory disease (12 sources) Multiple nodules of lung; 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: [Other nonspecific abnormal finding of lung field] Episodic Other lower respiratory disease (13 sources) Nodule of lung; 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: [Solitary pulmonary nodule] Episodic Other lower respiratory disease (2 sources) Solitary pulmonary nodule Episodic Other lower respiratory disease (5 sources) Other nonspecific abnormal finding of lung field; 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: [OTH NONSPECIFIC ABN FIND LNG FIELD] Onset: 3 Episodic Other lower respiratory disease (4 sources) Chronic cough; 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: [CHRONIC COUGH] Onset: 3 Episodic Other lower respiratory disease (1 source) Dyspnea; 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: [Other forms of dyspnea] Episodic Other nervous system disorders (17 sources) Carpal tunnel syndrome of right wrist; 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: [Carpal tunnel syndrome, right upper limb] Chronic Other nervous system disorders (17 sources) Carpal tunnel syndrome of left wrist; 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: [Carpal tunnel syndrome, left upper limb] Chronic Other nervous system disorders (3 sources) Carpal tunnel syndrome, right upper limb Onset: 2 Resolved: 2 Chronic Other nervous system disorders (3 sources) Carpal tunnel syndrome, left upper limb Onset: 2 Resolved: 2 Chronic Other nervous system disorders (1 source) Other chronic pain; 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: [OTHER CHRONIC PAIN] Onset: 3 Chronic Other nervous system disorders (2 sources) Anesthesia of skin Onset: 2 Resolved: 2 Episodic Other nervous system disorders (1 source) Paresthesia; 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: [Paresthesia of skin] Episodic Other nutritional; endocrine; and metabolic disorders (1 source) Hypercalcemia; 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: [Hypercalcemia] Onset: 8 Chronic Other nutritional; endocrine; and metabolic disorders (1 source) Obesity; 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: [Obesity, unspecified] Chronic Other nutritional; endocrine; and metabolic disorders (1 source) Simple obesity ; 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: [Other obesity due to excess calories] Onset: 6 Chronic Other nutritional; endocrine; and metabolic disorders (2 sources) Body mass index 30+ - obesity; 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: [Body mass index 31.0-31.9, adult] Onset: 6 Chronic Other screening for suspected conditions (not mental disorders or infectious disease) (1 source) Abnormal findings on diagnostic imaging of other specified body structures; 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: [ABNORML FIND DX IMG OTH BODY STRUC] Onset: 3 Chronic Other screening for suspected conditions (not mental disorders or infectious disease) (9 sources) Encounter for screening mammogram for malignant neoplasm of breast; 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: [Abnormal result of other cardiovascular function study] Onset: 7 Episodic Georgina-; endo-; and myocarditis; cardiomyopathy (except that caused by tuberculosis or sexually transmitted disease) (1 source) Acute pericarditis; 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: [Acute pericarditis, unspecified] Episodic Pulmonary heart disease (13 sources) Secondary pulmonary hypertension; 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: [Other secondary pulmonary hypertension] Chronic Residual codes; unclassified (14 sources) Obstructive sleep apnea syndrome; 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: [Obstructive sleep apnea (adult) (pediatric)] Onset: 7 Chronic Residual codes; unclassified (3 sources) Obstructive sleep apnea (adult) (pediatric); 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: [Obstructive sleep apnea] Chronic Residual codes; unclassified (1 source) Postmenopausal state; 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: [Asymptomatic menopausal state] Episodic Spondylosis; intervertebral disc disorders; other back problems (20 sources) Lumbar spondylosis; 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: [Spondylosis without myelopathy or radiculopathy, lumbar region] Onset: 5 Chronic Unclassified (4 sources) LOW BACK PAIN, UNSPECIFIED; 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: [LOW BACK PAIN, UNSPECIFIED] Onset: 3 Unclassified (1 source) CONTACT W/AND (SUSP) EXPOS COVID-19; 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: [CONTACT W/AND (SUSP) EXPOS COVID-19] Onset: 3 Unclassified (1 source) GASTR-ESOPH RFLX DS ESPHGTS W/O BLD; 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: [GASTR-ESOPH RFLX DS ESPHGTS W/O BLD] Onset: 2 Unclassified (2 sources) Cardiac Stress Test; 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: [Cardiac Stress Test] Onset: 3 Unclassified (1 source) Other ventricular tachycardia; 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: [Other ventricular tachycardia] Viral infection (1 source) Herpes zoster with complication; 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: [Zoster with other complications] Episodic Viral infection (1 source) Disease caused by 2019-nCoV; 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: [COVID-19] Past or Other Problems Problem Classification Problem Date Documented Da te Episodic/Chronic Conditions associated with dizziness or vertigo (1 source) Benign paroxysmal positional vertigo; 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: [Benign paroxysmal vertigo, unspecified ear] Resolved: 08-16-2021 Episodic Malaise and fatigue (1 source) Malaise and fatigue; 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: [Other malaise and fatigue] Onset: 08-05-2015 Episodic Other aftercare (1 source) Other medical terminologist (current) drug therapy; 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: [OTH PEDODONTIST CURRENT DRUG THERAPY] Onset: 09-20-2021 Episodic Other lower respiratory disease (5 sources) Other forms of dyspnea; 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: [OTHER FORMS OF DYSPNEA] Onset: 02-27-2022 Episodic Other non-traumatic joint disorders (1 source) Arthralgia of the pelvic region and thigh; 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: [Pain in joint, pelvic region and thigh] Onset: 01-17-2016 Episodic Other non-traumatic joint disorders (1 source) Arthralgia of the lower leg; 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: [Pain in joint, lower leg] Onset: 07-26-2018 Episodic Other nutritional; endocrine; and metabolic disorders (1 source) Overweight; 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: [Overweight] Onset: 08-05-2015 Episodic Other nutritional; endocrine; and metabolic disorders (1 source) Body mass index 25-29 - overweight; 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: [Body mass index 29.0-29.9, adult] Onset: 08-05-2015 Episodic Residual codes; unclassified (1 source) Requires influenza virus vaccination; 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: [Need for prophylactic vaccination and inoculation, Influenza] Onset: 03-27-2018 Episodic Spondylosis; intervertebral disc disorders; other back problems (9 sources) Radiculopathy, lumbar region; 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: [Spinal stenosis, lumbar region without neurogenic claudication] Onset: 12-04-2014 Episodic Unclassified (13 sources) NSVT (nonsustained ventricular tachycardia); 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: [NSVT (nonsustained ventricular tachycardia)] Unclassified (1 source) LOW BACK PAIN, UNSPECIFIED; 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: [LOW BACK PAIN, UNSPECIFIED] Onset: 07-20-2022 Results Test Name Value Interpretation Reference Range Facil ity Office Visiton 01-05-2023 Follow-up visit [id number] Naseem Richardson 1940 F Date Provider Department Center 01/05/2023 Nelida-NIK GR [facility] Family History Problem Relation Age of Onset No Known Problems Mother No Known Problems Father Family Status - Relation Status Age at Mother Father Level of Service:72319 [place] OFFICE/OUTPATIENT ESTABLISHED LOW MDM 20-29 MIN Normal [facility] FUNGAL AB QUANTITAIVE DOUBLE IMMUNODIFFUon 07-30-2022 Aspergillus flavus Negative Normal Neg:<1:1 [facility] Comment on above: Performed By: #### F UNGUYI #### [facility] [address] [address] [address] Milena Rosa Aspergillus fumigatus Negative Normal Neg:<1:1 [facility] Comment on above: Performed By: #### F UNGUYI #### [facility] [address] [address] [address] Milena Rosa Aspergillus niger Negative Normal Neg:<1:1 [facility] Comment on above: Performed By: #### F UNGUYI #### [facility] [address] [address] [address] Milena Rosa Blastomyces Negative Normal Neg:<1:1 [facility] Comment on above: Performed By: #### F UNGUYI #### [facility] [address] [address] [address] Milena Rosa HISTOPLASMA GALACTOMANNAN AG URINEon 07-30-2022 Histoplasma Gal'rosales Ag <0.5 Normal <0.5 ng/mL [facility] Comment on above: Performed By: #### H ISTGAL ####[facility] [id number] [address]Dr. Milena Rosa COCCIDIODES IGG/IGM AB BY IF Aon 07-29-2022 Coccidiodes Ab, IgG EIA 0.1 EIA Units Normal [facility] Comment on above: Result Comment: Nega tive <1.0 Indeterminate 1.0-1.4 Positive >1.4 Performed By: #### C OCCABS #### [facility] [address] [address] [address] Milena Rosa Coccidiodes Ab, IgM, EIA 0.0 EIA Units Normal [facility] Comment on above: Result Comment: Nega tive <1.0 Indeterminate 1.0-1.4 Positive >1.4 Performed By: #### C OCCABS #### [facility] [address] [address] [address] Milena Rosa HISTOPLASMA CAP AB QUANT DID on 07-29-2022 Histoplasma Mycelial CF Ab. Negative Normal Neg:<1:2 [facility] Comment on above: Performed By: #### H ISTDID ####[facility] [id number] [address]Dr. Milena Rosa Histoplasma Yeast CF Ab Negative Normal Neg:<1:2 [facility] Comment on above: Performed By: #### H ISTDID ####[facility] [id number] [address]Dr. Milena Rosa Office Visiton 07-26-2022 Follow-up visit [id number] Naseem Richardson 1940 F Date Provider [facility] Family History Problem Relation Age of Onset No Known Problems Mother No Known Problems Father Family Status - Relation Status Age at Mother Father Level of Service:65247 [place] OFFICE/OUTPATIENT ESTABLISHED MOD MDM 30-39 MIN Reason for Visit and Comments: Follow-up [605529] - 6 weeks- Go over Holter monitor results- Discuss medications Normal [facility] CT CHEST WO CONon 07-19-2022 CT CHEST WO CON EXAMINATION: CT CHES T WO CON HISTORY: Chronic cough , shortness of breath COMPARISON: No relevant comparison available. TECHNIQUE: Axial, Coronal, and Sagittal images were created without the administration of IV contrast material. Dose reduction techniques were achieved by using automated exposure control and/or adjustment of mA and/or kV according to patient size and/or use of iterative reconstruction technique. FINDINGS: LUNGS: A few scattered, well-circumscribed nodules, largest is within right upper lobe at level of aortic arch, 10 mm in diameter. No pulmonary infiltrates or significant chronic interstitial changes. PLEURA: No mass, effusion, or pneumothorax. VASCULATURE: No abnormality. ASHANTI: Numerous calcified lymph nodes bilaterally. MEDIASTINUM: Numerous calcified lymph nodes. CARDIAC: No enlargement or pericardial thickening. AORTA: No aneurysm or dissection. CHEST WALL: No mass or axillary adenopathy. BONES: No bone lesion or fracture. LIMITED ABDOMEN: No suspicious findings. Limited images of the upper abdomen. OTHER: Negative. IMPRESSION: 1. No appreciable infiltrates, significant chronic interstitial changes, or specific findings to account for patient's symptoms. 2. A few nodules scattered within the lungs, largest is within right upper lobe, 10 mm. While there are no overtly suspicious characteristics, and statistically these likely represent granulomas, follow-up CT chest in 3 months is recommended to document stability. Alternatively, PET/CT imaging could be performed at this time. 3. Numerous calcified mediastinal and bilateral hilar lymph nodes which also favors chronic granulomatous disease. Electronically authenticated by: WILLIAM BERMEO Date: 2022-07-19 14:55 Normal [facility] Office Visiton 06-07-2022 Follow-up visit [id number] Naseem Richardson 1940 F Date Provider Department Center 06/07/2022 [id number] GR [facility] Family History Problem Relation Age of Onset No Known Problems Mother No Known Problems Father Family Status - Relation Status Age at Mother Father Level of Service:33833 [place] OFFICE/OUTPATIENT ESTABLISHED MOD MDM 30-39 MIN Reason for Visit and Comments: Post-Cath [731] Normal [facility] HPon 05-17-2022 HP Attestation signed by Nik Gr MD at 05/17/2022 8:53 AM H and P reviewed. No significant changes. Patient presenting with CHAVIRA and abnormal stress. Plan to proceed with cath. Procedure was explained to patient at length and in detail. Risks, benefits, and alternatives were discussed. Patient is informed that risks of this invasive procedure include, but are not limited to, bleeding, hematoma, kidney injury, CVA, arrythmia requiring defibrillation, need for emergent open heart surgery, and . Patient understands these risks and wishes to proceed. Nik Gr MD History Of Present Illness Giovanna Richardson is a 81 y.o. female presenting with shortness of breath with positive stress test in LAD distribution. She is referred from Dr. Crooks for abnormal stress test. Had right heart cath and pericardiocentesis with Dr. Sanchez back in 2008. At that time she was found to have new onset afib and moderate pericardial effusion. She had Covid-19 in Dec 2021 and hasn't really felt the same since then. She does get chest pain, but can't tell if it's heartburn or not. Does get SOB w/wo exertion. Palpitations are not often. Had echo in Jan 2022. Past Medical History She has a past medical history of Hypertension. Surgical History She has a past surgical history that includes Pericardiocentesis; Appendectomy; Hysterectomy; Sinus surgery; and Back surgery. Social History She reports that she has never smoked. She has never used smokeless tobacco. She reports that she does not currently use alcohol. No history on file for drug use. Family History Family History Problem Relation Name Age of Onset No Known Problems Mother No Known Problems Father Allergies Versed [midazolam] Medications Medications Prior to Admission Medication Sig Dispense Refill Last Dose aspirin 81 mg EC tablet Take 81 mg by mouth in the morning. 05/17/2022 escitalopram (Lexapro) 10 mg tablet Take 10 mg by mouth in the morning. 05/17/2022 gabapentin (Neurontin) 100 mg capsule Take 100 mg by mouth 1 (one) time each day. 05/16/2022 hydroCHLOROthiazide (HYDRODiuril) 25 mg tablet Take 25 mg by mouth in the morning. 05/17/2022 losartan (Cozaar) 50 mg tablet Take 50 mg by mouth in the morning. 05/17/2022 metoprolol succinate XL (Toprol-XL) 25 mg 24 hr tablet Take 25 mg by mouth in the morning. 05/17/2022 oxybutynin XL (Ditropan-XL) 15 mg 24 hr tablet Take 15 mg by mouth in the morning. 05/17/2022 Review of Systems Review of Systems Cardiovascular: Positive for chest pain, dyspnea on exertion and palpitations. Respiratory: Positive for cough, shortness of breath and wheezing. Musculoskeletal: Positive for back pain. Neurological: Positive for headaches and light-headedness. All other systems reviewed and are negative. Last Recorded Vitals Patient Vitals for the past 24 hrs: BP Pulse Resp SpO2 05/17/22 0714 128/60 61 16 97 % Physical Exam Constitutional: Appearance: Normal appearance. HENT: Head: Normocephalic. Nose: Nose normal. Mouth/Throat: Mouth: Mucous membranes are moist. Eyes: Pupils: Pupils are equal, round, and reactive to light. Cardiovascular: Rate and Rhythm: Normal rate and regular rhythm. Pulses: Normal pulses. Pulmonary: Effort: Respiratory distress present. Abdominal: General: Bowel sounds are normal. Musculoskeletal: General: Normal range of motion. Skin: General: Skin is warm. Neurological: General: No focal deficit present. Psychiatric: Mood and Affect: Mood normal. Relevant Lab Results Lab Results Component Value Date CL 103 05/15/2022 CO2 26.7 05/15/2022 BUN 18 05/15/2022 Nuclear stress test: positive in LAD distribution. Echo: normal EF Relevant Imaging Results No image results found. Assessment/Plan Shortness of breath Positive stress test Hx of Covid infection Plan: We will do LHC with conscious sedation, risk and benefits discussed. 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 Milena Rosa Basophils/100 WBC (Bld) 0.3 % Normal 0.2-2.0 [facility] Comment on above: Performed By: #### C BC #### [facility] [address] [place] [address] Dr. Milena Rosa EO # 0.2 103/ul Normal 0.0-0.7 [facility] Comment on above: Performed By: #### C BC #### [facility] [address] [place] [address] Dr. Milena Rosa Eosinophils/100 WBC (Bld) 2.8 % Normal 0.9-7.0 [facility] Comment on above: Performed By: #### C BC #### [facility] [address] [place] [address] Dr. Milena Rosa Erythrocyte distribution wid th (RBC) [Ratio] 13.3 % Normal 11.0-15.0 [facility] Comment on above: Performed By: #### C BC #### [facility] [address] [place] [address] Dr. Milena Rosa Hematocrit (Bld) [Volume fraction] 38.5 % Normal 3 6.0-48.0 [facility] Comment on above: Performed By: #### C BC #### [facility] [address] [place] [address] Dr. Milena Rosa Hemoglobin (Bld) [Mass/Vol] 12.6 g/dL Normal 12.0-16. 0 [facility] Comment on above: Performed By: #### C BC #### [facility] [address] [place] [address] Dr. Milena Rosa IG # 0.02 10e3/ul Normal 0.00-0.03 [facility] Comment on above: Performed By: #### C BC #### [facility] [address] [place] [address] Dr. Milena Rosa IG % 0.3 % Normal 0.0-0.5 [facility] Comment on above: Performed By: #### C BC #### [facility] [address] [place] [address] Dr. Milena Rosa LYMPH # 2.5 103/ul Normal 1.2-3.8 [facility] Comment on above: Performed By: #### C BC #### [facility] [address] [place] [address] Dr. Milena Rosa Lymphocytes/100 WBC (Bld) 37.6 % Normal 20.5-60.0 [facility] Comment on above: Performed By: #### C BC #### [facility] [address] [place] [address] Dr. Milena Rosa MANUAL DIFF REQ NO Normal [facility] Comment on above: Performed By: #### C BC #### [facility] [address] [place] [address] Dr. Milena Rosa MCH (RBC) [Entitic mass] 29.8 pg Normal 26.7-34.0 [facility] Comment on above: Performed By: #### C BC #### [facility] [address] [place] [address] Dr. Milena Rosa MCHC (RBC) [Mass/Vol] 32.7 g/dL Normal 29.9-35.2 [facility] Comment on above: Performed By: #### C BC #### [facility] [address] [place] [address] Dr. Milena Rosa MCV (RBC) [Entitic vol] 91.0 fL Normal 81.0-99.0 [facility] Comment on above: Performed By: #### C BC #### [facility] [address] [place] [address] Dr. Milena Rosa MONO # 0.7 103/ul Normal 0.3-0.8 [facility] Comment on above: Performed By: #### C BC #### [facility] [address] [place] [address] Dr. Milena Rosa Monocytes/100 WBC (Bld) 10.0 % Normal 1.7-12.0 [facility] Comment on above: Performed By: #### C BC #### [facility] [address] [place] [address] Dr. Milena Rosa NEUT # 3.3 103/ul Normal 1.4-6.5 [facility] Comment on above: Performed By: #### C BC #### [facility] [address] [place] [address] Dr. Milena Rosa Neutrophils/100 WBC (Bld) 49.0 % Normal 43.0-75.0 [facility] Comment on above: Performed By: #### C BC #### [facility] [address] [place] [address] Dr. Milena Rosa Platelet mean volume (Bld) [ Entitic vol] 11.5 fL Normal 9.5-13.5 [facility] Comment on above: Performed By: #### C BC #### [facility] [address] [place] [address] Dr. Milena Rosa PLT 201 103/ul Normal 150-450 [facility] Comment on above: Performed By: #### C BC #### [facility] [address] [place] [address] Dr. Milena Rosa RBC 4.23 106/ul Normal 4.20-5.40 [facility] Comment on above: Performed By: #### C BC #### [facility] [address] [place] [address] Dr. Milena Rosa WBC 6.7 103/ul Normal 4.0-11.0 [facility] Comment on above: Performed By: #### C BC #### [facility] [address] [place] [address] Dr. Milena Rosa Covid-19 PCR ([facility])on 04-30 SARS-CoV-2 (COVID-19) RNA RADHA+probe Ql (Unsp spec) Not detected Normal NOT DETECTED [facility] Comment on above: Result Comment: This test is not yet approved or cleared by the [place] FDA. When there are no FDA-approved or cleared tests available, and other criteria are met, FDA can make tests available under an emergency access mechanism called an Emergency Use Authorization (EUA). The EUA for this test is supported by the [place] of Health and Human Service's (HHS's) declaration that circumstances exist to justify the emergency use of in vitro diagnostics for the detection and/or diagnosis of the virus that causes COVID-19. This EUA will remain in effect (meaning this test can be used) for the duration of the COVID-19 declaration justifying emergency of IVDs, unless it is terminated or revoked by FDA (after which the test may no longer be used). When diagnostic testing is negative, the possibility of a false negative should be considered in the context of a patient's recent exposures and the presence of clinical signs and symptoms consistent with SARS-CoV-2. Performed By: #### [facility] ####[facility] [address] [address]Dr. Milena Rosa PROF CHEM 8 (BAS METB)on Anion gap [Moles/Vol] 13.1 mmol/L Normal [facility] Comment on above: Performed By: #### B MP #### [facility] [address] [address] [address] Milena Rosa Calcium [Mass/Vol] 9.8 mg/dL Normal 8.5-10.1 [facility] Comment on above: Performed By: #### B MP #### [facility] [address] [address] [address] Milena Rosa Chloride [Moles/Vol] 103 mmol/L Normal 98-107 [facility] Comment on above: Performed By: #### B MP #### [facility] [address] [address] [address] Milena Rosa CO2 [Moles/Vol] 26.7 mmol/L Normal 21.0-32.0 [facility] Comment on above: Performed By: #### B MP #### [facility] [address] [address] [address] Milena Rosa Creatinine [Mass/Vol] 0.95 mg/dL Normal 0.55-1.02 [facility] Comment on above: Performed By: #### B MP #### [facility] [address] [address] [address] Milena Rsoa EGFR-AF ENGLISH >60 Normal >=60 [facility] Comment on above: Performed By: #### B MP #### [facility] [address] [address] [address] Milena Rosa EGFR-NON AF ENGLISH 57 mL/min/1.73m2 Critically low >=60 [facility] Comment on above: Performed By: #### B MP #### [facility] [address] [address] [address] Milena Rosa Glucose [Mass/Vol] 93 mg/dL Normal 74-106 [facility] Comment on above: Performed By: #### B MP #### [facility] [address] [address] [address] Milena Rosa Potassium [Moles/Vol] 3.8 mmol/L Normal 3.5-5.1 [facility] Comment on above: Performed By: #### B MP #### [facility] [address] [address] [address] Milena Rosa Sodium [Moles/Vol] 139 mmol/L Normal 136-145 [facility] Comment on above: Performed By: #### B MP #### [facility] [address] [address] [address] Milena Rosa Urea nitrogen [Mass/Vol] 18.0 mg/dL Normal 7.0-18.0 [facility] Comment on above: Performed By: #### B MP #### [facility] [address] [address] [address] Milena Rosa Urea nitrogen/Creatinine [Mass ratio] 18.9 mg/mg Normal [facility] Comment on above: Performed By: #### B MP #### [facility] [address] [address] [address] Milena Rosa Office Visiton 05-10-2022 Follow-up visit [id number] Naseem Richardson 1940 F Date Provider [facility] Family History Problem Relation Age of Onset No Known Problems Mother No Known Problems Father Family Status - Relation Status Age at Mother Father Level of Service:67567 [place] OFFICE/OUTPATIENT NEW MODERATE MDM 45-59 MINUTES Reason for Visit and Comments: Cardiac Stress Test [489] Normal [facility] NM STRESS/REST MULTIon 04-28 NM STRESS/REST MULTI Patient: GIOVANNA RICHARDSON Exam Date: 04/28/2022 : 1940 Gender:F Ordering : DR OVI CROOKS D.O. Admission #: [id number] Family : Order #: [id number] CLICK HERE TO VIEW EXAM RADIOLOGY REPORT PROCEDURE: RADIONUCLIDE IMAGING STRESS/REST MULTI COMPARISON: None. INDICATIONS: Dyspnea on exertion, chest pain TECHNIQUE: Exam Description: Stress/Rest one day protocol gated SPECT Rest Imagin.5 mCi Tc-99m Cardiolite IV on 04/28/2022 Stress Imaging 31.7 mCi Tc-99m Cardiolite IV on 04/28/2022 Exercise Protocol: Jason Heart Rate (bpm): Rest: 64 Max: 142 PMHR: 100 Blood Pressure: Rest: 134/82 Max: 186/114 Exercise Time: Minutes: 3 Seconds: 00 Stage Reached: Stage: 1 Mets 4.6 Symptoms: shortness of breath Rest and peak stress ECG findings were abnormal and the exercise portion of the study was abnormal per attending physician Dr. Ramón Crooks due to EKG changes. For more details please see separate cardiac stress test report. FINDINGS: QUALITY OF STUDY: Excellent. PERFUSION DEFECT: LOCATION: Mid-anterior. Apical anterior. SIZE: Small (1-2 segments). SEVERITY: Moderate. TYPE: Reversible. WALL MOTION: Normal. LV SIZE: Normal. 50 mL. TID / TCD: None; 0.9 LVEF: Normal. Calculated EF 73%. SUMMARY: Myocardial perfusion imaging study has ABNORMAL findings. CONCLUSION: 1. Moderate size moderate severity defect in the anterior wall, LAD distribution, with redistribution suggesting an area of reversible ischemia. Further evaluation is recommended 2. Abnormal exercise test secondary to EKG changes Dictated by: Gómez Ziegler MD on 04/28/2022 at 14:22 Approved by: Gómez Ziegler MD on 04/28/2022 at 14:26 Normal [facility] CBC AUTO DIFFon 02-27-2022 BASO # 0.0 103/ul Normal 0.0-0.1 [facility] Comment on above: Performed By: #### C BC ####[facility] [address] [address]Dr. Milena Rosa Basophils/100 WBC (Bld) 0.5 % Normal 0.2-2.0 [facility] Comment on above: Performed By: #### C BC ####[facility] [address] [place], [place] [address]Dr. Milena Rosa EO # 0.1 103/ul Normal 0.0-0.7 [facility] Comment on above: Performed By: #### C BC ####[facility] [address] [place], [place] [address]Dr. Milena Rosa Eosinophils/100 WBC (Bld) 1.9 % Normal 0.9-7.0 [facility] Comment on above: Performed By: #### C BC ####[facility] [address] [place], [place] [address]Dr. Milena Rosa Erythrocyte distribution wid th (RBC) [Ratio] 14.3 % Normal 11.0-15.0 [facility] Comment on above: Performed By: #### C BC ####[facility] [address] [place], [place] [address]Dr. Milena Rosa Hematocrit (Bld) [Volume fraction] 37.6 % Normal 3 6.0-48.0 [facility] Comment on above: Performed By: #### C BC ####[facility] [address] [place], [place] [address]Dr. Milena Rosa Hemoglobin (Bld) [Mass/Vol] 12.6 g/dL Normal 12.0-16. 0 [facility] Comment on above: Performed By: #### C BC ####[facility] [address] [place], [place] [address]Dr. Milena Rosa IG # 0.02 10e3/ul Normal 0.00-0.03 [facility] Comment on above: Performed By: #### C BC ####[facility] [address] [address]Dr. Kimberleychinedu Rosa IG % 0.3 % Normal 0.0-0.5 [facility] Comment on above: Performed By: #### C BC ####[facility] [address] [address]Dr. Milena Moe LYMPH # 2.1 103/ul Normal 1.2-3.8 [facility] Comment on above: Performed By: #### C BC ####[facility] [address] [place], [place] [address]Dr. Kimberleychinedu Rosa Lymphocytes/100 WBC (Bld) 33.2 % Normal 20.5-60.0 [facility] Comment on above: Performed By: #### C BC ####[facility] [address] [place], [place] [address]Dr. Milena Rosa MANUAL DIFF REQ NO Normal [facility] Comment on above: Performed By: #### C BC ####[facility] [address] [place], [place] [address]Dr. Milena Rosa MCH (RBC) [Entitic mass] 30.9 pg Normal 26.7-34.0 [facility] Comment on above: Performed By: #### C BC ####[facility] [address] [place], [place] [address]Dr. Milena Rosa MCHC (RBC) [Mass/Vol] 33.5 g/dL Normal 29.9-35.2 [facility] Comment on above: Performed By: #### C BC ####[facility] [address] [place], [place] [address]Dr. Milena Moe MCV (RBC) [Entitic vol] 92.2 fL Normal 81.0-99.0 [facility] Comment on above: Performed By: #### C BC ####[facility] [address] [place], [place] [address]Dr. Milena Rosa MONO # 0.6 103/ul Normal 0.3-0.8 [facility] Comment on above: Performed By: #### C BC ####[facility] [address] [address]Dr. Milena Rosa Monocytes/100 WBC (Bld) 8.9 % Normal 1.7-12.0 [facility] Comment on above: Performed By: #### C BC ####[facility] [address] [address]Dr. Milena Rosa NEUT # 3.5 103/ul Normal 1.4-6.5 [facility] Comment on above: Performed By: #### C BC ####[facility] [address] [address]Dr. Milena Rosa Neutrophils/100 WBC (Bld) 55.2 % Normal 43.0-75.0 [facility] Comment on above: Performed By: #### C BC ####[facility] [address] [address]Dr. Milena Rosa Platelet mean volume (Bld) [ Entitic vol] 11.6 fL Normal 9.5-13.5 [facility] Comment on above: Performed By: #### C BC ####[facility] [address] [place], [place] [address]Dr. Milena Rosa PLT 217 103/ul Normal 150-450 [facility] Comment on above: Performed By: #### C BC ####[facility] [address] [address]Dr. Milena Rosa RBC 4.08 106/ul Critically low 4.20-5.40 [facility] Comment on above: Performed By: #### C BC ####[facility] [address] [address]Dr. Milena Rosa WBC 6.3 103/ul Normal 4.0-11.0 [facility] Comment on above: Performed By: #### C BC ####[facility] [address] [address]Dr. Milena Rosa ECHOCARDIO M/2D COMPLETEon 1 ECHOCARDIO M/2D COMPLETE Patient: GIOVANNA ALCARAZ Exam Date: 02/27/2022 : 1940 Gender:F Ordering : DR OVI CROOKS D.O. Admission #: [id number] Family : Order #: [id number] CLICK HERE TO VIEW EXAM ECHOCARDIOGRAM REPORT PROCEDURE: CARDIO PULMONARY ECHOCARDIO M/2D COMP INDICATIONS: Dyspnea on exertion, h/o Covid (12/2021) COMPARISON: None. DESCRIPTION: COMPLETE ECHOCARDIOGRAM Real-time transthoracic echocardiography with 2D, M-mode, spectral and color flow Doppler performed. QUALITY: Technical quality was good. 59 150# BP 128/88 LEFT VENTRICLE: Normal chamber size. Borderline left ventricular hypertrophy. Systolic function is at the lower limits of normal. The septum is abnormal in function, might be related to bundle branch block. LV EF: Lower limits of normal left ventricular ejection fraction, (50-55%). DIASTOLIC: ATRIAL SEPTUM: Visually appears intact. LEFT ATRIUM: Normal chamber size. RIGHT ATRIUM: Normal chamber size. RIGHT VENTRICLE: Normal chamber size. Normal right ventricular systolic function. TRICUSPID VALVE: Normal mobility and thickness. No stenosis with mild regurgitation. Doppler studies reveal mildly (35-45) elevated right sided pressures. RVSP 42 mmHg MITRAL VALVE: Normal mobility and thickness. No evidence of mitral valve stenosis. There is no mitral annular calcification. Mild mitral regurgitation. AORTIC VALVE: Normal trileaflet appearance. No visible sclerosis. Normal leaflet mobility. No evidence of aortic valve stenosis. No aortic regurgitation. AORTIC ROOT: Normal diameter and appearance. PULMONIC VALVE: Normal thickness and mobility. No stenosis. No regurgitation. PERICARDIUM: No evidence of pericardial effusion. IVC: IVC is normal in size, does not fully collapse with inspiration. PLEURA: CONCLUSION: 1. Left ventricular systolic function is at the lower limits of normal. LVEF is 50 to 55%. 2. Normal right ventricular size and systolic function. 3. Mild mitral and tricuspid regurgitation. 4. Mildly elevated right-sided pressures. 5. No pericardial effusion. Adult Echocardiography Procedure Report Left Ventricle LVEDD (3.7 - 5.6 cm): 4.03 cm LVESD (2.2 - 4.0 cm): 2.75 cm LVIVS thickness (0.6 - 1.2 cm): 0.91 cm LVPW thickness (0.5 - 1.0 cm): 0.96 cm LVOT Max Gradient: 1.36 mm[Hg] Peak Velocity (LVOT): 0.58 m/s LVOT Diameter 2.36 cm Left Ventricular Ejection Fraction: 50-55 % Left Atrium LA Volume Index (2D A2C): 54.84 ml, 58.52 ml Left Atrium Systolic Dimension: 3.98 cm Mitral Valve MV E to A Ratio: 0.78 Mitral Valve A-Wave Peak Velocity: 0.72 m/s Mitral Valve E-Wave Peak Velocity: 0.56 m/s Right Ventricle Aorta AO Root Diam: 2.68 cm Aortic Valve AoV Area (Peak Jose Alfredo): 2.27 cm2, 2.27 cm2 Peak Velocity(Antegrade Flow): 1.13 m/s Peak Gradient(Antegrade Flow): 5.08 mm[Hg] Tricuspid Valve Peak Velocity (Regurgitant Flow): 2.27 m/s, 2.90 m/s Peak Velocity: 0.33 m/s Pulmonic Valve Mean Gradient: 1.15 mm[Hg] Mean Velocity: 0.49 m/s Peak Velocity: 0.77 m/s, 0.84 m/s Peak Gradient: 2.81 mm[Hg], 2.36 mm[Hg] Right Atrium Right Atrium Systolic Pressure: 46.25 ml, 62.25 ml, 30.25 ml Dictated by: Carlito Christie M.D. on 03/01/2022 at 11:51 Approved by: Carlito Christie M.D. on 03/01/2022 at 11:53 Normal [facility] PROF CHEM 8 (BAS METB)on Anion gap [Moles/Vol] 6.1 mmol/L Normal [facility] Comment on above: Performed By: #### B TERESA, TSH #### [facility] [address] [address] [address] Milena Rosa Calcium [Mass/Vol] 9.0 mg/dL Normal 8.5-10.1 [facility] Comment on above: Performed By: #### B TERESA, TSH #### [facility] [address] [address] [address] Milena Rosa Chloride [Moles/Vol] 103 mmol/L Normal 98-107 [facility] Comment on above: Performed By: #### B TERESA, TSH #### [facility] [address] [address] [address] Milena Rosa CO2 [Moles/Vol] 34.4 mmol/L Critically high 21.0-32.0 [facility] Comment on above: Performed By: #### B MP, TSH #### [facility] [address] [address] [address] Milena Rosa Creatinine [Mass/Vol] 1.21 mg/dL Critically high 0.55-1.02 [facility] Comment on above: Performed By: #### B MP, TSH #### [facility] [address] [address] [address] Milena Rosa EGFR-AF ENGLISH 52 mL/min/1.73m2 Critically low >=60 [facility] Comment on above: Performed By: #### B MP, TSH #### [facility] [address] [address] [address] Milena Rosa EGFR-NON AF ENGLISH 43 mL/min/1.73m2 Critically low >=60 [facility] Comment on above: Performed By: #### B MP, TSH #### [facility] [address] [address] [address] Milena Rosa Glucose [Mass/Vol] 101 mg/dL Normal 74-106 [facility] Comment on above: Performed By: #### B MP, TSH #### [facility] [address] [address] [address] Milena Rosa Potassium [Moles/Vol] 3.5 mmol/L Normal 3.5-5.1 [facility] Comment on above: Performed By: #### B MP, TSH #### [facility] [address] [address] [address] Milena Rosa Sodium [Moles/Vol] 140 mmol/L Normal 136-145 [facility] Comment on above: Performed By: #### B MP, TSH #### [facility] [address] [address] [address] Milena Rosa Urea nitrogen [Mass/Vol] 20.0 mg/dL Critically high 7.0-18 .0 [facility] Comment on above: Performed By: #### B MP, TSH #### [facility] [address] [place], [place] [address] Dr. Milena Rosa Urea nitrogen/Creatinine [Mass ratio] 16.5 mg/mg Normal [facility] Comment on above: Performed By: #### B MP, TSH #### [facility] [address] [place], [place] [address] Dr. Milena Rosa TSHon 02-27-2022 TSH 1.640 uIU/mL Normal 0.358-3.740 [facility] Comment on above: Performed By: #### B MP, TSH #### [facility] [address] [place], [place] [address] Dr. Milena Rosa XR CHEST 2 Von 02-27-2022 XR CHEST 2 V EXAM: XR CHEST 2 V HISTORY: Dyspnea for 2 months COMPARISON: None. TECHNIQUE: Upright PA and lateral chest x-ray FINDINGS: The heart is not enlarged and the vasculature is not distended. No acute infiltrate, effusion or pneumothorax is identified. A very small amount of atelectasis or scarring is seen at the lung bases. Some degenerative changes are seen in the spine. IMPRESSION: No acute infiltrate or evidence of cardiac decompensation. Slight chronic changes are seen at the lung bases. Direct comparison with a previous study may be helpful in determining the chronicity of these findings. Electronically authenticated by: WHITNEY FOURNIER Date: 2022-02-27 13:49 Normal [facility] MRI LSPINE WO CONon 01-10-20 22 MRI LSPINE WO CON EXAMINATION: MRI LSP INE WO CON HISTORY: Lumbar spondylosis ; chronic lumbar and right leg pain COMPARISON: XR lumbar spine 07/26/2018, MRI lumbar spine 01/24/2016 TECHNIQUE: A variety of imaging planes and parameters were utilized for visualization of suspected pathology. FINDINGS: For the purposes of numbering, sagittal T2 image # 8 extends from the T10 vertebral body superiorly to the S4 level inferiorly. PARASPINAL AREA: Chronic renal cysts bilaterally and old hemorrhagic cyst within left kidney; unchanged in size. BONES: Mild grade 1 retrolisthesis of L2 on 3. Degenerative marrow endplate changes at L2, 3, and 4. No fracture. CORD/CAUDA EQUINA: Normal caliber, contour, and signal intensity. DISC LEVELS: 12-L1: Early degenerative disc disease is present without focal protrusion or neural impingement. L1-L2: Mild central canal and right foramen narrowing. Mild diffuse disc bulging, slightly eccentric to the right. Mild degenerative facet arthropathy. L2-L3: Marked central canal with trace amount CSF surrounding the nerve roots. Mild/moderate foramen narrowing bilaterally. Large posterior disc-osteophyte complex and complete loss of disc space with Modic type I degenerative endplate changes. Mild degenerative facet arthropathy. L3-L4: Mild central canal narrowing. Marked right, mild left foramen narrowing. Small posterior disc-osteophyte complex and complete loss of disc height with Modic type I degenerative endplate changes. Mild degenerative facet arthropathy, left greater than right. L4-L5: Moderate-marked central canal and bilateral foramen narrowing. Mild diffuse disc bulging and mild disc at reduction. Moderate degenerative facet arthropathy bilaterally. L5-S1: Mild central canal and mild-moderate foramen narrowing bilaterally. Moderate diffuse disc bulging with moderate disc height reduction posteriorly. Moderate degenerative facet arthropathy bilaterally. IMPRESSION: 1. Multilevel central canal and foraminal narrowing secondary to degenerative disc disease and facet arthropathy, greatest at L2-L3, L3-L4, L4-L5. Electronically authenticated by: WILLIAM BERMEO Date: 2022-01-09 16:20 Normal [facility] XR hand BI 3Von 12-21-2021 XR hand BI 3V [facility] [address] XRay Report Signed Patient: Giovanna Richardson MR#: [id number] : 1940 Acct:[id number] Age/Sex: 81 / F ADM Date: 12/21/21 [place] [facility] [place]: Type: [facility] Attending Dr: Brina Morrissey MD Copies to: Brina Morrissey MD Ordering Provider: Brina Morrissey MD Date of Service: 12/21/21 XR/XR hand BI 3V: Pain in right hand Bilateral hand series, 4 views each. Reason for exam: Bilateral thumb pain at CMC joint. No known injury. COMPARISON: None. FINDINGS: Left hand demonstrates absence of the middle phalanx of the third and fourth digits. No focal soft tissue abnormality. No acute bony process. Moderate degenerative changes involving the CMC joint of the thumb. Mild degenerative changes of the interphalangeal joints. No bony erosions. Right hand demonstrates no focal soft tissue abnormality. Mild degenerative changes involving the CMC joint. Mild degenerative changes involving the interphalangeal joints. No bony erosions. Acute bony process. XR/XR hand BI 3V Impression: No acute bony process. Degenerative changes involving both hands with moderate degenerative changes involving the CMC joint of the left hand and mild degenerative changes involving the CMC joint of the right hand. 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 Impression dictated by: Erasmo Caal Jr., Vito12/21/2021 2:31 PM Dictation Location: [place] [address] Transcribed By: [facility] 12/21/21 1431 Dictated By: Erasmo Caal Jr, DO 12/21/21 1427 Signed By: 12/21/[address] [facility] CBC AUTO DIFFon 09-14-2021 BASO # 0.0 103/ul Normal 0.0-0.1 [facility] Comment on above: Performed By: #### C BC #### [facility] [address] [place] [address] Dr. Milena Rosa Basophils/100 WBC (Bld) 0.2 % Normal 0.2-2.0 [facility] Comment on above: Performed By: #### C BC #### [facility] [address] [place] [address] Dr. Milena Rosa EO # 0.1 103/ul Normal 0.0-0.7 [facility] Comment on above: Performed By: #### C BC #### [facility] [address] [address] [address] Milena Rosa Eosinophils/100 WBC (Bld) 2.8 % Normal 0.9-7.0 [facility] Comment on above: Performed By: #### C BC #### [facility] [address] [address] [address] Milena Rosa Erythrocyte distribution wid th (RBC) [Ratio] 13.4 % Normal 11.0-15.0 [facility] Comment on above: Performed By: #### C BC #### [facility] [address] [place] [address] Dr. Milena Rosa Hematocrit (Bld) [Volume fraction] 38.2 % Normal 3 6.0-48.0 [facility] Comment on above: Performed By: #### C BC #### [facility] [address] [place] [address] Dr. Milena Rosa Hemoglobin (Bld) [Mass/Vol] 12.5 g/dL Normal 12.0-16. 0 [facility] Comment on above: Performed By: #### C BC #### [facility] [address] [place] [address] Dr. Milena Rosa IG # 0.02 10e3/ul Normal 0.00-0.03 [facility] Comment on above: Performed By: #### C BC #### [facility] [address] [place] [address] Dr. Milena Rosa IG % 0.4 % Normal 0.0-0.5 [facility] Comment on above: Performed By: #### C BC #### [facility] [address] [place] [address] Dr. Milena Rosa LYMPH # 2.1 103/ul Normal 1.2-3.8 [facility] Comment on above: Performed By: #### C BC #### [facility] [address] [place] [address] Dr. Milena Rosa Lymphocytes/100 WBC (Bld) 40.5 % Normal 20.5-60.0 [facility] Comment on above: Performed By: #### C BC #### [facility] [address] [place] [address] Dr. Milena Rosa MANUAL DIFF REQ NO Normal [facility] Comment on above: Performed By: #### C BC #### [facility] [address] [place] [address] Dr. Milena Rosa MCH (RBC) [Entitic mass] 29.7 pg Normal 26.7-34.0 [facility] Comment on above: Performed By: #### C BC #### [facility] [address] [place] [address] Dr. Milena Rosa MCHC (RBC) [Mass/Vol] 32.7 g/dL Normal 29.9-35.2 [facility] Comment on above: Performed By: #### C BC #### [facility] [address] [place] [address] Dr. Milena Rosa MCV (RBC) [Entitic vol] 90.7 fL Normal 81.0-99.0 [facility] Comment on above: Performed By: #### C BC #### [facility] [address] [place] [address] Dr. Milena Rosa MONO # 0.6 103/ul Normal 0.3-0.8 [facility] Comment on above: Performed By: #### C BC #### [facility] [address] [place] [address] Dr. Milena Rosa Monocytes/100 WBC (Bld) 12.0 % Normal 1.7-12.0 [facility] Comment on above: Performed By: #### C BC #### [facility] [address] [place] [address] Dr. Milena Rosa NEUT # 2.3 103/ul Normal 1.4-6.5 [facility] Comment on above: Performed By: #### C BC #### [facility] [address] [place] [address] Dr. Milena Rosa Neutrophils/100 WBC (Bld) 44.1 % Normal 43.0-75.0 [facility] Comment on above: Performed By: #### C BC #### [facility] [address] [place] [address] Dr. Milena Rosa Platelet mean volume (Bld) [ Entitic vol] 11.7 fL Normal 9.5-13.5 [facility] Comment on above: Performed By: #### C BC #### [facility] [address] [place] [address] Dr. Milena Rosa PLT 206 103/ul Normal 150-450 [facility] Comment on above: Performed By: #### C BC #### [facility] [address], [place] [address] Dr. Milena Rosa RBC 4.21 106/ul Normal 4.20-5.40 [facility] Comment on above: Performed By: #### C BC #### [facility] [address], [place] [address] Dr. Milena Rosa WBC 5.1 103/ul Normal 4.0-11.0 [facility] Comment on above: Performed By: #### C BC #### [facility] [address], [place] [address] Dr. Milena Rosa MG MAMM SCREEN 3D SHERICE CADon 09-14-2021 MG MAMM SCREEN 3D SHERICE CAD Patient: GIOVANNA RICHARDSON Exam Date: 09/14/2021 : 1940 Gender:F Ordering : DR OVI CROOKS D.O. Admission #: [id number] Family : Order #: [id number] CLICK HERE TO VIEW EXAM RADIOLOGY REPORT PROCEDURE: MAMMOGRAM SCREENING 3D BILATERAL CAD COMPARISON: MG MAMM SCREEN HSERICE W CAD, 03/29/2018. MG MAMM SCREEN SHERICE W CAD, 07/05/2020. INDICATIONS: Screening mammography Calculator Name NCI Breast Cancer Risk Assessment Tool 5 Year Breast Cancer Risk 1.50% Lifetime Breast Cancer Risk 2.80% Personal Breast Cancer No Personal Ovarian Cancer No Treatments None Family Cancers None LOCATION: [facility] BREAST COMPOSITION: Scattered areas fibroglandular density. FINDINGS: DIAGNOSTIC CATEGORY 1--NEGATIVE. NO CHANGE FROM COMPARISON ASSESSMENT. Scattered benign-appearing calcifications are present. Scattered benign-appearing lymph nodes are present. RIGHT BREAST: No significant suspicious finding. LEFT BREAST: No significant suspicious finding. RECOMMENDATIONS: ROUTINE MAMMOGRAM AND CLINICAL EVALUATION IN 12 MONTHS. PLEASE NOTE: A NORMAL MAMMOGRAM DOES NOT EXCLUDE THE POSSIBILITY OF BREAST CANCER. A CLINICALLY SUSPICIOUS PALPABLE LUMP SHOULD BE BIOPSIED. Dictated by: Gómez Ziegler MD on 09/14/2021 at 10:40 Approved by: Gómez Ziegler MD on 09/14/2021 at 10:42 Normal [facility] PROF CHEM 8 (BAS METB)on Anion gap [Moles/Vol] 10.5 mmol/L Normal [facility] Comment on above: Performed By: #### B MP #### [facility] [address] [address] [address] Milena Rosa Calcium [Mass/Vol] 9.5 mg/dL Normal 8.5-10.1 [facility] Comment on above: Performed By: #### B MP #### [facility] [address] [address] [address] Milena Rosa Chloride [Moles/Vol] 101 mmol/L Normal 98-107 [facility] Comment on above: Performed By: #### B MP #### [facility] [address] [address] [address] Milena Rosa CO2 [Moles/Vol] 31.1 mmol/L Normal 21.0-32.0 [facility] Comment on above: Performed By: #### B MP #### [facility] [address] [address] [address] Milena Rosa Creatinine [Mass/Vol] 1.01 mg/dL Normal 0.55-1.02 [facility] Comment on above: Performed By: #### B MP #### [facility] [address] [address] [address] Milena Rosa EGFR-AF ENGLISH >60 Normal >=60 [facility] Comment on above: Performed By: #### B MP #### [facility] [address] [address] [address] Milena Rosa EGFR-NON AF ENGLISH 53 mL/min/1.73m2 Critically low >=60 [facility] Comment on above: Performed By: #### B MP #### [facility] [address] [address] [address] Milena Rosa Glucose [Mass/Vol] 96 mg/dL Normal 74-106 [facility] Comment on above: Performed By: #### B MP #### [facility] [address] [address] [address] Milena Rosa Potassium [Moles/Vol] 3.6 mmol/L Normal 3.5-5.1 [facility] Comment on above: Performed By: #### B MP #### [facility] [address] [address] [address] Milena Rosa Sodium [Moles/Vol] 139 mmol/L Normal 136-145 [facility] Comment on above: Performed By: #### B MP #### [facility] [address] [address] [address] Milena Rosa Urea nitrogen [Mass/Vol] 20.0 mg/dL Critically high 7.0-18 .0 [facility] Comment on above: Performed By: #### B MP #### [facility] [address] [address] [address] Milena Rosa Urea nitrogen/Creatinine [Mass ratio] 19.8 mg/mg Normal [facility] Comment on above: Performed By: #### B MP #### [facility] [address] [address] [address] Milena Rosa Coding Summary.on 12-26-2017 Coding Summary. CODING DATE: FINAL [facility] STATUS: Home (Routine DC) PAYOR: Medicare APC DESCRIPTION 5481 Laser Eye Procedures ADMIT DX: REASON FOR VISIT DX: H26.492 Other secondary cataract, left eye FINAL DX: PRINCIPAL: H26.492 Other secondary cataract, left eye SECONDARY: PYMT PROC APC STAT DESCRIPTION DOCTOR NAME DATE 77699 5481 T Discission of secondary Quinn Armendariz DO 12/25/2017 membranous cataract (opacified posterior lens capsule and/or anterior hyaloid); laser surgery (eg, YAG laser) (1 or more stages) LT Left side (used to identify procedures performed on the left side of the body) NOTE: The code number assigned matches the documented diagnosis and / or procedure in the patient's chart. However, the narrative phrase printed from the coding software may appear abbreviated, or result in slightly different terminology. Revised Coded By: Isha Eddy Revised Date Saved: 12/26/2017 11:03 am Normal [facility] Coding Summary.on 12-19-2017 Coding Summary. CODING DATE: FINAL [facility] STATUS: Home (Routine DC) PAYOR: Medicare APC DESCRIPTION 5481 Laser Eye Procedures ADMIT DX: REASON FOR VISIT DX: H26.40 Unspecified secondary cataract FINAL DX: PRINCIPAL: H26.40 Unspecified secondary cataract SECONDARY: PYMT PROC APC STAT DESCRIPTION DOCTOR NAME DATE 5480 T Discission of secondary Quinn Armendariz DO 12/18/2017 membranous cataract (opacified posterior lens capsule and/or anterior hyaloid); laser surgery (eg, YAG laser) (1 or more stages) RT Right side (used to identify procedures performed on the right side of the body) NOTE: The code number assigned matches the documented diagnosis and / or procedure in the patient's chart. However, the narrative phrase printed from the coding software may appear abbreviated, or result in slightly different terminology. Coded By: Shilpa Perez Date Saved: 12/19/2017 09:21 am Anastasia Alvarez [facility] Vital Signs Date Time Vital Sign Value Performing Clinician Facility 02-20-2023 16:00-0400 Body height [employer] Other [facility] Other 02-20-2023 16:00-0400 Body mass index (BMI) [Ratio] 30.44 kg/m2 [employer] Other [facility] Other 02-20-2023 16:00-0400 Body weight 69.54 kg Ovi Ball Other [facility] Other 02-20-2023 16:00-0400 Diastolic blood pressure 78 mm[Hg] [facility] [employer] Other [facility] Other 02-20-2023 16:00-0400 Respiratory rate 12 /min [facility] [employer] Other [facility] Other 02-20-2023 16:00-0400 Systolic blood pressure 144 mm[Hg] Ovi Ball Other [facility] Other 07-17-2022 16:30-0400 Body height [facility] [employer] Other [facility] Other 07-17-2022 16:30-0400 Body mass index (BMI) [Ratio] 31.33 kg/m2 Ovi Ball Other [facility] Other 07-17-2022 16:30-0400 Body weight 71.58 kg Ovi Ball Other [facility] Other 07-17-2022 16:30-0400 Diastolic blood pressure 75 mm[Hg] Ovi Ball Other [facility] Other 07-17-2022 16:30-0400 Respiratory rate 12 /min Ovi Ball Other [facility] Other 07-17-2022 16:30-0400 Systolic blood pressure 122 mm[Hg] Ovi Ball Other [facility] Other 12-21-2021 11:00-0400 Body height Brina Morrissey Other [facility] [employer] Other Encounters Encounter Date Encounter Type Care Provider Facility Start: 03-13-2023 End: 03-13-2023 ambulatory Ovi Ball Other [facility] [employer] Other Start: 03-13-2023 Telephone encounter Ovi Ball [facility] Start: 03-07-2023 End: 03-07-2023 ambulatory Ovi Ball Other [facility] Other Start: 03-07-2023 Telephone encounter Ovi Ball [facility] Start: 03-01-2023 End: 03-01-2023 ambulatory Ovi Ball Other [facility] Other Start: 03-01-2023 Telephone encounter Voi Ball [facility] Start: 02-28-2023 End: 02-28-2023 ambulatory Ovi Ball Other [facility] Other Start: 02-28-2023 Telephone encounter Ovi Crooks [facility] Start: 02-22-2023 End: 02-22-2023 ambulatory Ovi Crooks Other [facility] Other Start: 02-22-2023 Telephone encounter Ovi Crooks [facility] Start: 02-21-2023 End: 02-21-2023 ambulatory Ovi Crooks Other [facility] Other Start: 02-21-2023 Telephone encounter Ovi Crooks [facility] Start: 02-20-2023 End: 02-20-2023 ambulatory Ovi Crooks Other [facility] Other Start: 02-20-2023 Office outpatient vi sit 25 minutes Ovi Crooks [facility] Start: 01-23-2023 End: 01-23-2023 ambulatory Ovi Crooks Other [facility] Other Start: 01-23-2023 Telephone encounter Ovi Crooks [facility] Start: 01-16-2023 End: 01-16-2023 ambulatory Brina Morrissey Other [facility] Other Start: 01-16-2023 Office outpatient vi sit 15 minutes Brina Morrissey [facility] Start: 01-05-2023 End: 01-05-2023 ambulatory [facility] Start: 11-23-2022 ambulatory DAVID KAPOOR . Facili ty:[facility] Start: 09-01-2022 End: 09-02-2022 ambulatory DAVID KAPOOR . Facility:[facility] Start: 07-31-2022 End: 07-31-2022 ambulatory Brina Morrissey Other [facility] [employer] Other Start: 07-31-2022 Telephone encounter Brina Wright [facility] Start: 07-26-2022 End: 07-27-[address] OVI CROOKS Facility:[facility] Start: 07-26-2022 End: 07-26-2022 ambulatory [facility] Start: 07-25-2022 End: 07-25-2022 ambulatory SYEDMARIA C MICHAELBRITANYALEXANDRA . Facility:[facility] Start: 07-20-2022 End: 07-21-2022 ambulatory SYEDMARIA C MICHAELMIPATHY . Facility:[facility] Start: 07-19-2022 End: 07-20-[address] OVI CROOKS [facility] [employer] Other Start: 07-19-2022 Telephone encounter Ovi IBARRA [facility] Start: 07-17-2022 End: 07-17-2022 ambulatory Ovi Crooks Other [place] [employer] Other Start: 07-17-2022 Patient encounter procedure Ovi Crooks [facility] Start: 06-20-2022 End: 06-20-[address] ELIZABETH JESSICA . Facility:[facility] Start: 06-07-2022 Telephone encounter Brina Wright [facility] Start: 06-07-2022 End: 06-07-2022 ambulatory [facility] [employer] Other Start: 05-20-2022 Encounter for preprocedural laboratory examination [facility] Start: 05-17-2022 End: 05-17-2022 ambulatory [facility] Start: 05-15-2022 End: 05-16-2022 ambulatory [facility] Facility:[facility] Start: 05-15-2022 End: 05-16-2022 Encounter for preprocedural laboratory examination [facility] Facility:[facility] Start: 05-10-2022 End: 05-10-2022 ambulatory [facility] Start: 05-09-[address] ELIZABETH JESSICA . Faci lity:[facility]1 Start: 04-28-2022 End: 04-29-[address] OVI CROOKS Facility:[facility] Start: 04-13-[address] OVI Flores ty:[facility]1 Start: 03-14-[address] OVI CROOKS [facility] ty:[facility] Start: 03-10-[address] OVI Flores ty:[facility] Start: 03-07-[address] ELIZABETH JESSICA . Faci lity:[facility]1 Start: 03-03-2022 ambulatory DR OVI Flores ty:[facility]1 Start: 02-27-2022 End: 02-28-[address] OVI CROOKS Facility:[facility]1 Start: 02-23-2022 End: 02-24-2022 ambulatory MARY CRISTOBAL . Facility:[facility] Start: 02-07-2022 End: 02-07-[address] ELIZABETH JESSICA . Facility:[facility] Start: 01-18-2022 End: 01-18-2022 ambulatory Brina Morrissey Other [facility] Other Start: 01-18-2022 Office outpatient vi sit 15 minutes Brina Morrissey [facility] Start: 01-09-2022 End: 01-10-2022 ambulatory MARY CRISTOBAL . Facility:[facility] Start: 12-29-2021 End: 12-30-2021 ambulatory MARY CRISTOBAL . Facility:[facility] Start: 12-21-2021 End: 12-21-2021 ambulatory Brina Morrissey Other [facility] Other Start: 12-21-2021 Office outpatient ne w 30 minutes Brina Morrissey [facility] Start: 12-21-2021 End: 12-21-2021 Patient encounter procedure MD Brina Morrissey Work Phone: [facility] Start: 12-13-2021 End: 12-13-[address] ELIZABETH JESSICA . Facility:[facility]1 Start: 12-01-2021 End: 12-02-2021 ambulatory MARY CRISTOBAL . Facility:[facility] Start: 09-14-2021 End: 09-15-[address] OVI CROOKS Facility:[facility] Start: 08-17-2021 Adult health examination Brina Morrissey Other [facility] Other Start: 12-25-2017 End: 12-25-2017 Patient [place] [place]: 12-18-2017 End: 12-18-2017 Patient encounter Quinn Armendariz [place] [place] Date Procedure Procedure Detail Performing Clinician Start: 07-26-2022 Follow-up visit Follow-up NIK [facility] Start: 12-21-2021 Plain X-ray of castillo Morrissey Work Phone: Start: 03-26-2018 Screening for osteoporosis Brina Morrissey Other Start: 08-05-2015 Screening for malign ant neoplasm of colon Brina Hawkhernan Other Start: 08-05-2015 Screening mammography C oleliz Morrissey Other Cough 786.2 Brina Calvhernan Depression screening Brina Morrissey Other Screening for malign ant neoplasm of breast Brina Morrissey Other Immunizations Immunization Date Immunization Notes Care Provider Anita krishnamurthy 02-17-2022 influenza, high dose seasonal, preservative-free Ovi Crooks Other [facility] Other 02-17-2022 influenza virus vaccine, split virus (incl. purified surface antigen) Brina Morrissey Other [facility] Other 04-04-2021 COVID-19 Vaccine Pfi zer - Documentation Purposes Only Ovi Crooks Other [facility] Other 01-17-2021 influenza virus vaccine, split virus (incl. purified surface antigen) Brina Morrissey Other [facility] Other 06-17-2020 COVID-19 Vaccine Pfi zer - Documentation Purposes Only Ovi Valeriy Other [facility] Other 05-27-2020 COVID-19 Vaccine Moderna - Documentation Purposes Only Brina Morrissey Other [facility] Other 05-27-2020 COVID-19 Vaccine Pfi zer - Documentation Purposes Only Ovi Valeriy Other [facility] Other 03-10-2020 influenza virus vaccine, split virus (incl. purified surface antigen) Brina Morrissey Other [facility] Other 03-07-2019 influenza virus vaccine, split virus (incl. purified surface antigen) Brina Morrissey Other [facility] Other 03-27-2018 influenza virus vaccine, split virus (incl. purified surface antigen) Brina Morrissey Other [facility] Other 03-16-2017 pneumococcal Conjuga te, unspecified formulation; 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: [Need for prophylactic vaccination against Streptococcus pneumoniae (pneumococcus)] Brina Morrissey Other [facility] Other 03-16-2017 pneumococcal polysaccharide vaccine, 23 valent Ovi Crooks Other [facility] Other 11-17-2016 pneumococcal conjuga te vaccine, 13 valent Ovi Crooks Other [facility] Other 02-09-2016 influenza virus vaccine, split virus (incl. purified surface antigen) Brina Morrissey Other [facility] Other Payers Date Payer Category Payer Medicare [id number] 1957 Medicare [id number] 1959 Unknown [id number] 1942 Unknown [id number] 2.16.84 0.1.230237.3.579.2.593 1942 Unknown [id number] 2.16.84 0.1.195563.3.579.2.593 1942 Unknown [id number] 2.16.84 0.1.348424.3.579.2.593 1942 Unknown [id number] 2.16.84 0.1.927994.3.579.2.593 1942 Unknown [id number] 2.16.84 0.1.307688.3.579.2.593 1942 Unknown [id number] 2.16.84 0.1.092569.3.579.2.593 1942 Unknown [id number] 2.16.84 0.1.193496.3.579.2.593 1942 Unknown [id number] 2.16.84 0.1.092632.3.579.2.593 1942 Unknown [id number] 2.16.84 0.1.218063.3.579.2.593 1942 Unknown [id number] 2.16.84 0.1.136087.3.579.2.593 1942 Unknown [id number] 2.16.84 0.1.377524.3.579.2.593 1942 Unknown [id number] 2.16.84 0.1.871993.3.579.2.593 1942 Unknown [id number] 2.16.84 0.1.235809.3.579.2.593 1942 Unknown [id number] 2.16.84 0.1.680288.3.579.2.593 1942 Unknown [id number] 2.16.84 0.1.315311.3.579.2.593 1942 Unknown [id number] 2.16.84 0.1.731762.3.579.2.593 1942 Unknown [id number] 2.16.84 0.1.922429.3.579.2.593 1942 Unknown [id number] 2.16.84 0.1.506203.3.579.2.593 1942 Unknown [id number] 2.16.84 0.1.117460.3.579.2.593 1942 Unknown [id number] 2.16.84 0.1.386979.3.579.2.593 1942 Unknown [id number] 2.16.84 0.1.843085.3.579.2.593 1942 Unknown [id number] 2.16.84 0.1.663858.3.579.2.593 1942 Unknown [id number] 2.16.84 0.1.935626.3.579.2.593 1942 Unknown [id number] 2.16.84 0.1.452979.3.579.2.593 Social History Date Type Detail Facility Tobacco smoking status [facility] Unknown if ever smoked [facility] Work Phone: Start: 1940 Sex Assigned At Female F [facility] Sex Assigned At Sex Assigned At Bir th [facility] Other Clinical Notes 12-01-2021 to 02-28-2023 Note Date & Type Note Facility 02-28-2023 Evaluation note Encounter Date Diagnosis Assessment Notes Feb, Acute cerebral infarction (ICD-10 - I63.9) [facility] [employer] Other 11-01-2023 Evaluation note* Encounter Date Diagnosis Assessment Notes Treatment Notes Treatment Clinical Notes Feb, Bruit (ICD-10 - R09.89) [facility] Other 10-25-2023 Evaluation note* Encounter Date Diagnosis Assessment Notes Treatment Notes Treatment Clinical Notes Jan, Transient left leg weakness (ICD-10 - R29.898) Jan, Jerking movements of extremities (ICD-10 - R25.2) [facility] Other 10-24-2023 Evaluation note* Encounter Date Diagnosis Assessment Notes Treatment Notes Treatment Clinical Notes Jan, Transient left leg weakness (ICD-10 - R29.898) No acute findings on examination today. Unable to determine etiology to this patient's complaints. No obvious nerve impingment symptoms or findings No obvious persistent focal neurologic deficit MRI brain Labs Referral to Neurology Jan, Jerking movements of extremities (ICD-10 - R25.2) r/o metabolic abnormalities w/ labs. Focal seizure disorder? Schedule labs and MRI brain to r/o tumor, infarction, hemorrhage. Refer to Neurology Jan, Lumbar spondylosis (ICD-10 - M47.816) Jan, Obstructive sleep apnea (ICD-10 - G47.33) AHI 38 w/ Psat 80% Jan, ASHD (arteriosclerotic heart disease) (ICD-10 - I25.10) This patient is stable without activity related CP, dyspnea or lightheadedness. They are instructed to continue exercise and AHA diet plan. Continue secondary prevention measures. Jan, Primary hypertension (ICD-10 - I10) This patient is instructed to consume a healthy, low-fat, low-salt diet. They are also encouraged to continue exercise to achieve/maintain a normal BMI. Jan, Elevated cholesterol (ICD-10 - E78.00) Instructed on diet and exercise with continued statin therapy.Discussed the beneficial effects of lowering cholesterol in reducing the risk for cerebrovascular and cardiovascular disease. [facility] Other 09-19-2023 Evaluation note* Encounter Date Diagnosis Assessment Notes Treatment Notes Treatment Clinical Notes Dec, Carpal tunnel syndrome, right (ICD-10 - G56.01) Bilateral carpal tunnel and bilateral thumb CMC joints injected with cortisone under sterile technique, patient tolerated well Dec, Carpal tunnel syndrome, left (ICD-10 - G56.02) Dec, Arthritis of carpometacarpal (CMC) joint of right thumb (ICD-10 - M18.11) Dec, Arthritis of carpometacarpal (CMC) joint of left thumb (ICD-10 - M18.12) Dec, Pain in right hand (ICD-10 - M79.641) Dec, Pain in left hand (ICD-10 - M79.642) [facility] Other 09-08-2023 NoteCardiology Clinic Note Chief Complaint: abnormal stress HPI: Giovanna Richardson is a 82 y.o. female With a past medical history including hypertension, hyperlipidemia, questionable atrial fibrillation, and mild to moderate non obstructive CAD. She Presents to cardiology clinic today for follow-up. Overall, she states that she is doing well. She continues to have improvement in her shortness of breath with inhaler use. She denies any chest pain or Chest pressure. She states that she is active. She was recently cutting up wood with her son, and she denies any chest pain or shortness of breath with that activity. She denies any lower extremity with orthopnea, paroxysmal nocturnal dyspnea. She has not been taking aspirin as she does not like to take medications. Cardiology ROS: GENERAL: Denies fever, chills, night sweats, weight loss. HEENT: Denies changes in vision, photophobia, changes in hearing, epistaxis, oral bleeding. CARDIOVASCULAR: Denies chest pain. Endorses shortness of breath at rest and with exertion. Denies orthopnea/PND, lower extremity edema, palpitations, lightheadedness/dizziness. RESPIRATORY: Denies SOB, coughing, wheezing GI: Denies abdominal pain, nausea/vomiting, heartburn, melena/hematochezia. RENAL: Denies dysuria, hematuria, flank pain. MSK: Denies muscle weakness/pain, arthralgias/joint pain. NEUROLOGIC: Denies LOC, weakness, numbness, headaches. SKIN: Denies abnormal rashes or bleeding. PSYCH: Denies significant anxiety, depression, sleep disturbances. Past Medical History She has a past medical history of Hyperlipidemia and Hypertension. Surgical History She has a past surgical history that includes Pericardiocentesis; Appendectomy; Hysterectomy; Sinus surgery; and Back surgery. Social History She reports that she has never smoked. She has never used smokeless tobacco. She reports that she does not currently use alcohol. She reports that she does not use drugs. Family History Family History Problem Relation Name Age of Onset No Known Problems Mother No Known Problems Father Medications Current Outpatient Medications on File Prior to Visit Medication Sig Dispense Refill acetaminophen (Tylenol) 500 mg tablet Take by mouth every 6 (six) hours if needed for mild pain (1-3 pain score). atorvastatin (Lipitor) 40 mg tablet Take 40 mg by mouth in the morning. baclofen (Lioresal) 5 mg tablet Take 2.5-5 mg by mouth if needed. budesonide-formoteroL (Symbicort) 160-4.5 mcg/actuation inhaler every 12 (twelve) hours. calcium carbonate (CALCIUM 500 ORAL) Take by mouth. ciclesonide (Alvesco) 80 mcg/actuation inhaler 1 puff every 12 (twelve) hours. escitalopram (Lexapro) 10 mg tablet Take 10 mg by mouth in the morning. gabapentin (Neurontin) 100 mg capsule Take 100 mg by mouth 1 (one) time each day. hydroCHLOROthiazide (HYDRODiuril) 25 mg tablet Take 25 mg by mouth in the morning. isosorbide mononitrate ER (Imdur) 30 mg 24 hr tablet Take 1 tablet (30 mg) by mouth in the morning. Do not crush or chew. 90 tablet 3 losartan (Cozaar) 50 mg tablet Take 50 mg by mouth in the morning. metoprolol succinate XL (Toprol-XL) 25 mg 24 hr tablet Take 1 tablet (25 mg) by mouth once daily as directed. 90 tablet 3 multivitamin tablet Take 1 tablet by mouth in the morning. omeprazole (PriLOSEC) [address] capsule 1 (one) time each day at the same time. oxybutynin XL (Ditropan-XL) 15 mg 24 hr tablet Take 15 mg by mouth in the morning. aspirin 81 mg EC tablet Take 1 tablet (81 mg) by mouth in the morning. 90 tablet 3 atorvastatin (Lipitor) 40 mg tablet Take 1 tablet (40 mg) by mouth at bedtime. 90 tablet 3 No current facility-administered medications on file prior to visit. Allergies Versed [midazolam] Physical Exam VITAL SIGNS: BP 103/66 (BP Location: Left arm, Patient Position: Sitting) Pulse 60 Ht 1.511 m (4' 11.5 ) Wt 70.8 kg (156 lb) SpO2 93% BMI 30.98 kg/m??? Constitutional: Well developed, Well nourished, No acute distress, Non-toxic appearance. HENT: Normocephalic, Atraumatic, Bilateral external ears have normal appearance, Bilateral TMs clear, Oropharynx moist, No oral or pharyngeal exudates, Nose appears normal, nares are patent. Eyes: PERRLA, EOMI, Conjunctiva normal, No discharge. Neck: Normal range of motion, No tenderness, Supple, No stridor. No cervical lymphadenopathy noted. Cardiovascular: Normal heart rate, Normal rhythm, No murmurs, No rubs, No gallops. Thorax & Lungs: Normal breath sounds, No respiratory distress, No wheezing, No chest tenderness to palpation. Abdomen: Bowel sounds normal, Soft, Nontender, No masses, No pulsatile masses. Skin: Warm, Dry, No erythema, No rash. Back: No tenderness, No CVA tenderness. Extremities: Intact distal pulses, No edema, No tenderness, No cyanosis, No clubbing. Musculoskeletal: Good range of motion in all major joints with 5/5 muscle strength in all muscle groups, (more content not included)...[facility]09-08-2023 NotePatient here for 6 mo follow up CAD, hypertension, and hyperlipidemia. Has not been taking aspirin because she doesn't like taking a lot of pills. Says she's only had chest pain once recently. Sees Dr. Smith and had CT chest in September. [facility]04-03-2023 Evaluation note* Encounter Date Diagnosis Assessment Notes Treatment Notes Treatment Clinical Notes Jul, Pulmonary nodule (ICD-10 - R91.1) RUL 10mm nodule - 06/3022Jul, Cough (ICD9-CM - 786.2) Jul, Mild persistent asthma without complication (ICD-10 - J45.30) [facility] Other 03-29-2023 NoteCardiology Clinic Note Chief Complaint: abnormal stress HPI: Giovanna Richardson is a 81 y.o. female With a past medical history including hypertension, hyperlipidemia, questionable atrial fibrillation, and mild to moderate non obstructive CAD. She Presents to cardiology clinic today for follow-up. Overall patient is doing well. She denies chest pain. She continues to have some shortness of breath both at rest and with exertion, but she believes that this is much better since working with pulmonary on titration of inhalers. She denies any lower extremity with orthopnea, paroxysmal nocturnal dyspnea. She denies any dizziness or lightheadedness. She denies any near-syncope or syncope She recently completed a 30 day event monitor which did not demonstrate any sustained arrythmias. Cardiology ROS: GENERAL: Denies fever, chills, night sweats, weight loss. HEENT: Denies changes in vision, photophobia, changes in hearing, epistaxis, oral bleeding. CARDIOVASCULAR: Denies chest pain. Endorses shortness of breath at rest and with exertion. Denies orthopnea/PND, lower extremity edema, palpitations, lightheadedness/dizziness. RESPIRATORY: Denies SOB, coughing, wheezing GI: Denies abdominal pain, nausea/vomiting, heartburn, melena/hematochezia. RENAL: Denies dysuria, hematuria, flank pain. MSK: Denies muscle weakness/pain, arthralgias/joint pain. NEUROLOGIC: Denies LOC, weakness, numbness, headaches. SKIN: Denies abnormal rashes or bleeding. PSYCH: Denies significant anxiety, depression, sleep disturbances. Past Medical History She has a past medical history of Hyperlipidemia and Hypertension. Surgical History She has a past surgical history that includes Pericardiocentesis; Appendectomy; Hysterectomy; Sinus surgery; and Back surgery. Social History She reports that she has never smoked. She has never used smokeless tobacco. She reports that she does not currently use alcohol. She reports that she does not use drugs. Family History Family History Problem Relation Name Age of Onset No Known Problems Mother No Known Problems Father Medications Current Outpatient Medications on File Prior to Visit Medication Sig Dispense Refill acetaminophen (Tylenol) 500 mg tablet Take by mouth every 6 (six) hours if needed for mild pain (1-3 pain score). aspirin 81 mg EC tablet Take 1 tablet (81 mg) by mouth in the morning. 90 tablet 3 atorvastatin (Lipitor) 40 mg tablet Take 40 mg by mouth in the morning. calcium carbonate (CALCIUM 500 ORAL) Take by mouth. ciclesonide (Alvesco) 80 mcg/actuation inhaler 1 puff every 12 (twelve) hours. escitalopram (Lexapro) 10 mg tablet Take 10 mg by mouth in the morning. gabapentin (Neurontin) 100 mg capsule Take 100 mg by mouth 1 (one) time each day. hydroCHLOROthiazide (HYDRODiuril) 25 mg tablet Take 25 mg by mouth in the morning. isosorbide mononitrate ER (Imdur) 30 mg 24 hr tablet Take 1 tablet (30 mg) by mouth in the morning. Do not crush or chew. 90 tablet 3 losartan (Cozaar) 50 mg tablet Take 50 mg by mouth in the morning. metoprolol succinate XL (Toprol-XL) 25 mg 24 hr tablet Take 1 tablet (25 mg) by mouth once daily as directed. 90 tablet 3 multivitamin tablet Take 1 tablet by mouth in the morning. omeprazole (PriLOSEC) [address] capsule 1 (one) time each day at the same time. oxybutynin XL (Ditropan-XL) 15 mg 24 hr tablet Take 15 mg by mouth in the morning. atorvastatin (Lipitor) 40 mg tablet Take 1 tablet (40 mg) by mouth at bedtime. 90 tablet 3 No current facility-administered medications on file prior to visit. Allergies Versed [midazolam] Physical Exam VITAL SIGNS: BP 116/66 (BP Location: Left arm, Patient Position: Sitting, BP Cuff Size: Adult) Pulse 55 Ht 1.511 m (4' 11.5 ) Wt 70.3 kg (155 lb) SpO2 97% BMI 30.78 kg/m??? Constitutional: Well developed, Well nourished, No acute distress, Non-toxic appearance. HENT: Normocephalic, Atraumatic, Bilateral external ears have normal appearance, Bilateral TMs clear, Oropharynx moist, No oral or pharyngeal exudates, Nose appears normal, nares are patent. Eyes: PERRLA, EOMI, Conjunctiva normal, No discharge. Neck: Normal range of motion, No tenderness, Supple, No stridor. No cervical lymphadenopathy noted. Cardiovascular: Normal heart rate, Normal rhythm, No murmurs, No rubs, No gallops. Thorax & Lungs: Normal breath sounds, No respiratory distress, No wheezing, No chest tenderness to palpation. Abdomen: Bowel sounds normal, Soft, Nontender, No masses, No pulsatile masses. Skin: Warm, Dry, No erythema, No rash. Back: No tenderness, No CVA tenderness. Extremities: Intact distal pulses, No edema, No tenderness, No cyanosis, No clubbing. Musculoskeletal: Good range of motion in all major joints with 5/5 muscle strength in all muscle groups, No tenderness to palpation or major deformities noted. Neurologic: Alert & oriented x 3, Normal motor function in all (more content not included)...[facility]03-23-2023 NoteCONSULTATION CONSULTATION DATE: 07/20/2022 TO: Dr. Crooks CHIEF COMPLAINT: Includes severe lower back pain, left leg pain. HISTORY: Pain is rated 5-7/10 pain, sharp in character, increased with activities such as standing, walking and performing transitioning maneuvers. She reports that she walks for approximately 50-100 yards and has pain in her right lower extremity and her lower back. She reports that this sometimes increases her weakness as well. She feels most comfortable in the semi-recumbent position. She denies any change in her bowel and bladder habits. EXAM: Her exam is notable for patient having some mild hypoesthesia along the right L5 dermatome, equivocally depressed right Achilles reflex. Straight leg raise was equivocally positive at approximately 45 degrees. She had no clinical myelopathy on examination. She had a fair amount of myofascial spasm involving the lumbar paravertebral muscles. IMPRESSION: The patient appears to have chronic pain secondary to spinal stenosis. At this point, she expresses desire to avoid surgery if at all possible. RECOMMENDATIONS: I have recommended she start aquatic therapy, proceed with a caudal epidural steroid injection which we could advanced via a catheter to the L5 level, and to maintain her current regimen of baclofen 5 mg at h.s. and gabapentin 100 mg at h.s. She is unable to increase the gabapentin secondary to patient feeling sleepy, but she does report that it does seem to be helping some of her pain symptoms.[id number] Evaluation note* Encounter Date Diagnosis Assessment Notes Treatment Notes Treatment Clinical Notes Jun, Pulmonary nodule (ICD-10 - R91.1) RUL 10mm nodule - 06/3022 [facility] Other 03-20-2023 Evaluation note* Encounter Date Diagnosis Assessment Notes Treatment Notes Treatment Clinical Notes Jun, Medicare annual wellness visit, subsequent (ICD-10 - Z00.00) Personalized health advice was given to the beneficiary including a written plan for screenings discussed and provided. Advanced care planning reviewed and/or information given as requested. Additional counseling was provided here today in regards to, [ ]. The above visit was performed by [ ], under direct supervision of [ ]. Document reviewed and amended by provider signed below. Jun, ASHD (arteriosclerot ic heart disease) (ICD-10 - I25.10) This patient is stable without activity related CP, dyspnea or lightheadedness. They are instructed to continue exercise and AHA diet plan. Jun, Primary hypertension (ICD-10 - I10) This patient is instructed to consume a healthy, low-fat, low-salt diet. They are also encouraged to continue exercise to achieve/maintain a normal BMI. Jun, Gastroesophageal reflux disease with esophagitis without hemorrhage (ICD-10 - K21.00) Diet instructions: Smaller portions, avoid eating and laying flat, avoid eating or drinking prior to bedtime. Weight loss. Jun, Major depressive disorder, recurrent, in full remission (ICD-10 - F33.42) Healthy diet and exericise. Continue present therapy Jun, Obstructive sleep apnea (ICD-10 - G47.33) This patient is aware of the benefits associated with DIVINA: With continued use, the patient reduces the risk for ID, CVA, HTN, cardiac dysrhythmias and sudden cardiac deaths.The patient is also aware of the association between DIVINA and morning headaches, daytime somnolence, fatigue and obesity, which also has been improved with continued use.The patient is compliant with treatment, wearing the equipment every night for greater than 4 hours.The patient is instructed to continue use of the CPAP for DIVINA treatment. Jun, Overactive bladder (ICD-10 - N32.81) Improved w/ medications, tolerating side effects Jun, Acute bacterial conjunctivitis of both eyes (ICD-10 - H10.33) Warm compresses, begin antibiotics, wash hands frequently Jun, Screening mammogram for breast cancer (ICD-10 - Z12.31) [facility] Other 02-08-2023 Evaluation note* Encounter Date Diagnosis Assessment Notes Treatment Notes Treatment Clinical Notes May, ASHD (arterioscleroti c heart disease) (ICD-10 - I25.10) LHC: moderate, nonobstructive coronary disease - 05/2022 [facility] Other 02-08-2023 NotePatient here for follow up heart cath. She was started on atorvastatin and is tolerating it well so far. She will send back 30-day event monitor today for report generation. States she thinks she feels better, but still has some chest pain and SOB. Review of Systems Cardiovascular: Positive for chest pain, dyspnea on exertion and palpitations. Respiratory: Positive for cough, shortness of breath and wheezing. Musculoskeletal: Positive for back pain. Neurological: Positive for headaches and light-headedness. All other systems reviewed and are negative.[facility] 06-07-2022 NoteCardiology Clinic Note Chief Complaint: abnormal stress HPI: Giovanna Richardson is a 81 y.o. female With a past medical history including hypertension, hyperlipidemia, questionable atrial fibrillation, and mild to moderate non obstructive CAD. She Presents to cardiology clinic today for follow-up post cardiac catheterization. She states that overall, she is doing better. She continues to have occasional atypical chest pain. She does have some shortness of breath both at rest and with activity. She denies any additional complaints or concerns. She denies any lower extremity with orthopnea, paroxysmal nocturnal dyspnea. She denies any dizziness or lightheadedness. She denies any near-syncope or syncope.She has been wearing her 30-day event monitor, and just returned today. Cardiology ROS: GENERAL: Denies fever, chills, night sweats, weight loss. HEENT: Denies changes in vision, photophobia, changes in hearing, epistaxis, oral bleeding. CARDIOVASCULAR: Endorses occasional chest pain, shortness of breath at rest and with exertion. Denies orthopnea/PND, lower extremity edema, palpitations, lightheadedness/dizziness. RESPIRATORY: Denies SOB, coughing, wheezing GI: Denies abdominal pain, nausea/vomiting, heartburn, melena/hematochezia. RENAL: Denies dysuria, hematuria, flank pain. MSK: Denies muscle weakness/pain, arthralgias/joint pain. NEUROLOGIC: Denies LOC, weakness, numbness, headaches. SKIN: Denies abnormal rashes or bleeding. PSYCH: Denies significant anxiety, depression, sleep disturbances. Past Medical History She has a past medical history of Hyperlipidemia and Hypertension. Surgical History She has a past surgical history that includes Pericardiocentesis; Appendectomy; Hysterectomy; Sinus surgery; and Back surgery. Social History She reports that she has never smoked. She has never used smokeless tobacco. She reports that she does not currently use alcohol. No history on file for drug use. Family History Family History Problem Relation Name Age of Onset No Known Problems Mother No Known Problems Father Medications Current Outpatient Medications on File Prior to Visit Medication Sig Dispense Refill escitalopram (Lexapro) 10 mg tablet Take 10 mg by mouth in the morning. gabapentin (Neurontin) 100 mg capsule Take 100 mg by mouth 1 (one) time each day. hydroCHLOROthiazide (HYDRODiuril) 25 mg tablet Take 25 mg by mouth in the morning. losartan (Cozaar) 50 mg tablet Take 50 mg by mouth in the morning. oxybutynin XL (Ditropan-XL) 15 mg 24 hr tablet Take 15 mg by mouth in the morning. [DISCONTINUED] aspirin 81 mg EC tablet Take 81 mg by mouth in the morning. [DISCONTINUED] atorvastatin (Lipitor) 40 mg tablet Take 1 tablet (40 mg) by mouth in the morning. (Patient taking differently: Take 40 mg by mouth at bedtime.) 30 tablet 2 [DISCONTINUED] metoprolol succinate XL (Toprol-XL) 25 mg 24 hr tablet Take 25 mg by mouth in the morning. No current facility-administered medications on file prior to visit. Allergies Versed [midazolam] Physical Exam VITAL SIGNS: BP 111/73 (BP Location: Left arm, Patient Position: Sitting) Pulse 54 Ht 1.511 m (4' 11.5 ) Wt 69.4 kg (153 lb) SpO2 96% BMI 30.39 kg/m??? Constitutional: Well developed, Well nourished, No acute distress, Non-toxic appearance. HENT: Normocephalic, Atraumatic, Bilateral external ears have normal appearance, Bilateral TMs clear, Oropharynx moist, No oral or pharyngeal exudates, Nose appears normal, nares are patent. Eyes: PERRLA, EOMI, Conjunctiva normal, No discharge. Neck: Normal range of motion, No tenderness, Supple, No stridor. No cervical lymphadenopathy noted. Cardiovascular: Normal heart rate, Normal rhythm, No murmurs, No rubs, No gallops. Thorax & Lungs: Normal breath sounds, No respiratory distress, No wheezing, No chest tenderness to palpation. Abdomen: Bowel sounds normal, Soft, Nontender, No masses, No pulsatile masses. Skin: Warm, Dry, No erythema, No rash. Back: No tenderness, No CVA tenderness. Extremities: Intact distal pulses, No edema, No tenderness, No cyanosis, No clubbing. Musculoskeletal: Good range of motion in all major joints with 5/5 muscle strength in all muscle groups, No tenderness to palpation or major deformities noted. Neurologic: Alert & oriented x 3, Normal motor function in all major muscle groups, Normal sensory function to all major dermatomes, No focal deficits noted. Psychiatric: Affect normal, Judgment normal, Mood normal. 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 Plan discussed with attending. [facility] Card[facility] Clinic Note Chief Complaint: abnormal stress HPI: Giovanna Richardson is a 81 y.o. female With a past medical history including hypertension, hyperlipidemia questional atrial fibrillation. She was referred to Cardiology clinic for Abnormal stress test. Patient reports symptoms of Chest pain or shortness of breath. Stress test was performed, patient had abnormal EKG findings and abnormal myocardial perfusion concerning for ischemia in LAD distribution. Patient reports that their symptoms have increased in severity over the last few months. Patient adamantly denies any chest pain, syncope, LE edema, orthopnea, PND, palps, or bleeding. Patient denies any previous history of CVA, PVD, DM, HTN, Depressed LVEF, and CAD. Cardiology ROS: GENERAL: Denies fever, chills, night sweats, weight loss. HEENT: Denies changes in vision, photophobia, changes in hearing, epistaxis, oral bleeding. CARDIOVASCULAR: Endorses chest pain, shortness of breath. Denies orthopnea/PND, lower extremity edema, palpitations, lightheadedness/dizziness. RESPIRATORY: Denies SOB, coughing, wheezing GI: Denies abdominal pain, nausea/vomiting, heartburn, melena/hematochezia. RENAL: Denies dysuria, hematuria, flank pain. MSK: Denies muscle weakness/pain, arthralgias/joint pain. NEUROLOGIC: Denies LOC, weakness, numbness, headaches. SKIN: Denies abnormal rashes or bleeding. PSYCH: Denies significant anxiety, depression, sleep disturbances. Past Medical History She has a past medical history of Hyperlipidemia and Hypertension. Surgical History She has a past surgical history that includes Pericardiocentesis; Appendectomy; Hysterectomy; Sinus surgery; and Back surgery. Social History She reports that she has never smoked. She has never used smokeless tobacco. She reports that she does not currently use alcohol. No history on file for drug use. Family History Family History Problem Relation Name Age of Onset No Known Problems Mother No Known Problems Father Medications Current Outpatient Medications on File Prior to Visit Medication Sig Dispense Refill aspirin 81 mg EC tablet Take 81 mg by mouth in the morning. escitalopram (Lexapro) 10 mg tablet Take 10 mg by mouth in the morning. gabapentin (Neurontin) 100 mg capsule Take 100 mg by mouth 1 (one) time each day. hydroCHLOROthiazide (HYDRODiuril) 25 mg tablet Take 25 mg by mouth in the morning. losartan (Cozaar) 50 mg tablet Take 50 mg by mouth in the morning. metoprolol succinate XL (Toprol-XL) 25 mg 24 hr tablet Take 25 mg by mouth in the morning. oxybutynin XL (Ditropan-XL) 15 mg 24 hr tablet Take 15 mg by mouth in the morning. No current facility-administered medications on file prior to visit. Allergies Versed [midazolam] Physical Exam VITAL SIGNS: BP 124/77 (BP Location: Left arm, Patient Position: Sitting) Pulse 56 Ht 1.511 m (4' 11.5 ) Wt 70.8 kg (156 lb) SpO2 97% BMI 30.98 kg/m??? Constitutional: Well developed, Well nourished, No acute distress, Non-toxic appearance. HENT: Normocephalic, Atraumatic, Bilateral external ears have normal appearance, Bilateral TMs clear, Oropharynx moist, No oral or pharyngeal exudates, Nose appears normal, nares are patent. Eyes: PERRLA, EOMI, Conjunctiva normal, No discharge. Neck: Normal range of motion, No tenderness, Supple, No stridor. No cervical lymphadenopathy noted. Cardiovascular: Normal heart rate, Normal rhythm, No murmurs, No rubs, No gallops. Thorax & Lungs: Normal breath sounds, No respiratory distress, No wheezing, No chest tenderness to palpation. Abdomen: Bowel sounds normal, Soft, Nontender, No masses, No pulsatile masses. Skin: Warm, Dry, No erythema, No rash. Back: No tenderness, No CVA tenderness. Extremities: Intact distal pulses, No edema, No tenderness, No cyanosis, No clubbing. Musculoskeletal: Good range of motion in all major joints with 5/5 muscle strength in all muscle groups, No tenderness to palpation or major deformities noted. Neurologic: Alert & oriented x 3, Normal motor function in all major muscle groups, Normal sensory function to all major dermatomes, No focal deficits noted. Psychiatric: Affect normal, Judgment normal, Mood normal. EKG results: Encounter Date: 05/17/22 Electrocardiogram, 12-lead Result Value Ventricular Rate 53 Atrial Rate 53 TX Interval 186 QRS DURATION 142 QT Interval 472 QTC CALCULATION(BAZETT) 442 P [place] 29 R-[place] -35 T Wave [place] 59 Impression Sinus bradycardia Left axis deviation Left bundle branch block Abnormal ECG When compared with ECG of 30-NOV-2008 12:01, Premature atrial complexes are no longer Present Left bundle branch block is now Present Confirmed by Torres Arcos ([id number]) on 05/20/2022 10:41:20 PM Impression: -Abnormal stress -Chest pain -HTN: patient states blood pressure is well controlled -HLD -Questionable afib Plan: -The patient's find (more content not included)...[facility]01-11-2023 NoteNew patient here to re-establish care. She is referred from Dr. Crooks for abnormal stress test. Had right heart cath and pericardiocentesis with Dr. Sanchez back in 2008. At that time she was found to have new onset afib and moderate pericardial effusion. She had Covid-19 in Dec 2021 and hasn't really felt the same since then. She does get chest pain, but can't tell if it's heartburn or not. Does get SOB w/wo exertion. Palpitations are not often. Had echo in Jan 2022. Review of Systems Cardiovascular: Positive for chest pain, dyspnea on exertion and palpitations. Respiratory: Positive for cough, shortness of breath and wheezing. Musculoskeletal: Positive for back pain. Neurological: Positive for headaches and light-headedness. All other systems reviewed and are negative.[facility] 02-23-2022 NoteCONSULTATION CONSULTATION DATE: 02/23/2022 This is a very pleasant 81-year-old female who returns to the clinic status post #2 bilateral MBB of L2, L3 and L4, L5 completed on 02/07/2022. She was afforded 95% relief for one day. Today she reports her pain at 4 out of 10 at rest, it will climb to 6 or 7 out of 10 with physical activity. Activities that aggravate her pain are lifting, housework, bending and ADLs. Sitting and lying down decreases her pain. She does not use heat, ice or topical rubs. Medications include Baclofen 5 mg q.h.s., gabapentin 100 mg q. day and Lexapro. She does take a multivitamin regimen. Prior to this injection she had right anterior and lateral lower extremity radiating pain, this was greatly decreased with the infection. However, it is returning back to baseline. She denies any falls or injury or footdrop. REVIEW OF SYSTEMS, PAST MEDICAL HISTORY, ALLERGIES AND IMAGES: Have been reviewed and noted in the chart. PHYSICAL EXAM: VITAL SIGNS: Blood pressure 120/75, heart rate is 64, temperature is 96.9. Height is 4'11 , weighs 69 kg. . GENERAL APPEARANCE: Pleasant, appropriate and in no acute distress. BACK: Back with range of motion guarded in lateral rotation and flexion and extension. Reproduction of spinoaxial pain is noted to direct compression along the lower lumbar facets of L2, L3 and L4, L5 bilaterally. The patient does radiate to right lower extremities just below the knee. Enrique's point nontender bilaterally. Saber's and compression test negative. MUSCULOSKELETAL: Slight muscle atrophy noted bilateral lower extremities. However, the patient is steady and does not use the assistive device. NEUROLOGICAL: Patchy hypesthesia noted along L4 and L5 dermatomes to the right lower extremity, +1 bilateral patellar reflexes. DIAGNOSIS: Lumbar degenerative disease, lumbar spinal canal stenosis, lumbar spondylosis, spinoaxial lower back pain. PLAN: We will move forward to authorize for radiofrequency ablation done on the right side, subsequently move to the left of L2, L3 and L4, L5. She is to continue with the low dose Baclofen at 5 mg q.h.s. I did encourage her to use heat as well as a topical rub to decrease her muscle tightness. The patient agrees to move forward with the plan of care. She will be followed in the clinic thereafter.[facility] [id number] Evaluation note* Encounter Date Diagnosis Assessment Notes Treatment Notes Treatment Clinical Notes Dec, Pain in left hand (ICD-10 - M79.642) Dec, Arthritis of carpometacarpal (CMC) joint of both thumbs (ICD-10 - M18.0) Discussed with patient she is progressing well. Continue to use voltaren gel as needed. Patient given Dr. Stewart medication sheet Dec, Pain in right hand (ICD-10 - M79.641) Dec, Carpal tunnel syndrome, right (ICD-10 - G56.01) Dec, Carpal tunnel syndrome, left (ICD-10 - G56.02) Dec, Numbness in both duran ds (ICD-10 - R20.0) [employer] Other 09-01-2022 NoteCONSULTATION CONSULTATION DATE: 12/29/2021 HISTORY OF PRESENT ILLNESS: This is a 81-year-old female returning to the clinic status post #1 bilateral MBB of L2, L3 and L4, L5 completed on 12/13/2021 that afforded her 100% relief for a few hours. Patient had this procedure done in 2019, but states this procedure was much more successful. She does watch her great-grandchildren and is a very active lady. At her last appointment, she was prescribed baclofen 10 mg q.h.s. and she feels this has made a significant difference in her pain. However, she feels slightly foggy in the morning, so she has trialed 5 mg which has worked well for her. Current medications include gabapentin 100 mg daily, Lexapro 10 mg daily, Tylenol, multivitamin and Os-Te. Patient's REVIEW OF SYSTEMS / PAST MEDICAL HISTORY / ALLERGIES and IMAGES have been reviewed and they are noted on the chart. PHYSICAL EXAM: VITAL SIGNS: Blood pressure 146/81, heart rate is 69. Temperature is 97.7. She is 4'11 and weighs 69.5 kg. GENERAL APPEARANCE: Pleasant, appropriate, in no acute distress. FOCUSED EXAM - BACK: Range of motion is guarded in lateral rotation and flexion/extension. Reproduction of patient's spinal axial pain noted to direct compression along the lumbar facets. It does not radiate below the knees. Fullness is palpated which is indicative of facet arthropathy, lumbar spondylosis. Enrique's point is non-tender bilaterally with negative FABERs and compression tests. MUSCULOSKELETAL: Motor is intact, 4/5 bilaterally. Slight diffuse muscle atrophy noted. Patient ambulates without an assistive device in a stable and steady gait. NEUROLOGICAL: Patchy hypoesthesia noted along right L4, L5 dermatome below the knee. Radicular sensory is intact. +2 bilateral patellar and Achilles reflexes. DIAGNOSIS: Lumbar spondylosis, lumbar degenerative disc disease, lumbar neuritis and spinal axial lower back, pain. PLAN: We will authorize to move forward with #2 bilateral MBB of L2, L3 and L4, L5. Patient is to continue with the 5 mg of baclofen only at bedtime. Maintenance with her vitamins and heat regimen was encouraged. We will see the patient following the procedure and patient is in agreement to move forward.[facility] [id number] Evaluation note* Encounter Date Diagnosis Assessment Notes Treatment Notes Treatment Clinical Notes Nov, Pain in left hand (ICD-10 - M79.642) Nov, Arthritis of carpometacarpal (CMC) joint of both thumbs (ICD-10 - M18.0) Extensive discussion was held with the patient regarding treatment options. She was instructed to wear a supportive wrist brace at night and during activities during the day, as well as using topical Voltaren Gel in the morning and at night. Patient also has elected for cortisone injections today. After sterile prep, cortisone injections performed into bilateral thumb CMC joints. Patient tolerated well. Discussed surgical treatment if the injections are not helpful. Nov, Pain in right hand (ICD-10 - M79.641) Nov, Carpal tunnel syndrome, right (ICD-10 - G56.01) The patient also appears to have carpal tunnel of both wrists. Cortisone injections were performed into both wrists after sterile prep. Patient tolerated well. Nov, Carpal tunnel syndrome, left (ICD-10 - G56.02) Nov, Numbness in both duran ds (ICD-10 - R20.0) [employer] Other 08-04-2022 NoteCONSULTATION CONSULTATION DATE: 12/01/2021 HISTORY OF PRESENT ILLNESS: This is a very pleasant and active, 81-year-old female, returning to the clinic after one year for lower back and buttock pain. She has had procedures in the past with her last procedure being right sided SI RFA in August of 2020. She has had lumbar medial branch and RFAs in the past, which were very successful for her. Today, her pain is 4/10 and she describes it as a very heavy feeling and achy feeling. It increased approximately two months and last month was progressively worse. She does watch her small grandchildren. She describes her pain, which is mostly to the right leg, as heavy and has fallen twice going up the steps. She feels it is very difficult to lift her right leg when stepping up or into the car. Her last MRI was in 2015 which conformed multilevel degenerative disc. Activities that aggravate her pain are stairs, bending, lifting, physical activity and prolonged sitting. She does use heat which decreases the pain. Current medications include Tylenol, multivitamin, gabapentin and Lexapro. She does have a history of an unknown type of back surgery for a bulging disc in 2011. Patient does not use an assistive device to ambulate. 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 Patient's REVIEW OF SYSTEMS / PAST MEDICAL HISTORY / ALLERGIES and IMAGES have been reviewed and they are noted on the chart. PHYSICAL EXAM: VITAL SIGNS: Blood pressure 120/74, heart rate is 69. Temperature is 97.1. She is 4'11 and weighs 69 kg. GENERAL APPEARANCE: Pleasant, appropriate, in no acute distress. FOCUSED EXAM - BACK: Range of motion is guarded in lateral rotation and flexion/extension. Bilateral paravertebral muscles are taut bilaterally. Upon compression of the posterior elements of the lumbar facets, pain is reproduced that does not radiate below the legs. Fullness is palpated, which is indicative of facet arthropathy and lumbar spondylosis to L2, L3 and L4, L5 bilaterally. Patient has referred pain to the groin upon compression of L2, L3. Right Enrique's point is tender. FABERs mildly positive. MUSCULOSKELETAL: Motor is intact, right leg 3/5, left leg 4/5. Muscle atrophy noted to right quadriceps. Patient does not use assistive device but walks with a slow, steady, antalgic gait. NEUROLOGICAL: Diffuse neuropathy to right lower extremity, stocking distribution to right S1 to the fifth toe. IMPRESSION: Lumbar degenerative disc, lumbar spondylosis, spinal axial lower back pain and lumbar paravertebral spasms. PLAN: Patient will be started on baclofen 10 mg q.h.s. I feel it is important to get an updated MRI to evaluate pathological progression. We will authorize for a #1 bilateral MBB to L2, L3 and L4, L5, which the patient consents to and wishes to move forward on. Nutrition and vitamin importance were discussed. She is to use a heat rub with a heating pad daily. Patient will be followed up in the office post procedure.[facility] SystemEvaluation noteNo assessment information availableAcmc Healthcare System Glenbeigh Work Phone: Evaluation noteNo InformationNortThe Children's Hospital Foundation [employer] Other Hisjeyt general Narrative - Reported* Type Description Date Medical History Esophageal reflux Medical History seasonal allergies Medical History DIVINA Medical History Hypertension Surgical History APPENEDECTOMY Surgical History HYSTERECTOMY Surgical History SINUS Surgical History LEFT HAND Surgical History HEART CATH Surgical History CHOLECYSTECTOMY [employer] Other History general Narrative - Reported* Type Description Date Medical History Esophageal reflux Medical History seasonal allergies Medical History DIVINA Medical History Hypertension Medical History ASHD (arteriosclerotic heart dis ease) Surgical History APPENEDECTOMY Surgical History HYSTERECTOMY Surgical History SINUS Surgical History LEFT HAND Surgical History HEART CATH Surgical History CHOLECYSTECTOMY Surgical History cardiac catheterization 06/07/22 Current Media [facility] [employer] Other History general Narrative - Reported* Type Description Date Medical History Esophageal reflux Medical History seasonal allergies Medical History DIVINA Medical History Hypertension Medical History ASHD (arteriosclerotic heart dis ease) Medical History Lumbar spondylosis Medical History Overactive bladder Medical History Primary osteoarthrit is of both first carpometacarpal joints Medical History Other secondary pulmonary hypert ension Medical History Multiple pulmonary nodules Medical History NSVT (nonsustained ventricular t achycardia) Medical History Obstructive sleep apnea Medical History Major depressive dis order, recurrent, in full remission Surgical History APPENEDECTOMY Surgical History HYSTERECTOMY Surgical History SINUS Surgical History LEFT HAND Surgical History HEART CATH Surgical History CHOLECYSTECTOMY Surgical History cardiac catheterization 06/07/22 Hospitalization History SEE SURGICAL HX [employer] Other Summary Purpose Family History No Family History Records FoundNo Family History Records FoundNo Family History Records FoundNo Family History Records Found Advance Directives Advance Directive Response Recorded Date/ Time Advance Directives No December 21, 2021 12:20pm Chief Complaint and Reason for Visit Chief Complaint M79.641 Additional Source Comments INFORMATION SOURCE (unrecogn ized section and content) DATE CREATED AUTHOR 12/29/2017 [facility] DATE CREATED AUTHOR AUTHOR'S ORGANIZ ATION 12/25/2021 [facility] DATE CREATED AUTHOR AUTHOR'S ORGANIZ ATION 09/08/2022 [facility] DATE CREATED AUTHOR AUTHOR'S ORGANIZ ATION 01/06/2023 [facility] Care Teams (unrecognized sec tion and content) Team Status: Inactive Member Role Status Dates Brina Morrissey MD Attending Provider Active Goals (unrecognized section and content) Goals may be documented in a n alternate sectionNo InformationNo InformationNo InformationNo InformationNo InformationNo InformationNo InformationNo InformationNo InformationNo InformationNo InformationNo InformationNo InformationNo InformationNo InformationNo InformationNo Information REASON FOR VISIT (unrecogniz ed section and content) Bilateral Thumb PainRecheck Bilateral HandsNo InformationNo InformationWELLNESSNo InformationNo InformationBilateral Hand PainXray resultsright leg jerkingRevised orderMRI resultsNew DXNew DXUS resultsEcho resultsHolter FOR RECORDS PERTAINING TO PATIENTS WHO ARE OR HAVE BEEN ENROLLED IN A CHEMICAL DEPENDENCY/SUBSTANCEABUSE PROGRAM, SOME INFORMATION MAY BE OMITTED. This clinical summary was aggregated from multiple sources. Caution should be exercised in using it in the provision of clinical care. This summary normalizes information from multiple sources, and as a consequence, information in this document may materially change the coding, format and clinical context of patient data. In addition, data may be omitted in some cases. CLINICAL DECISIONS SHOULD BE BASED ON THE PRIMARY CLINICAL RECORDS. [facility] provides no warranty or guarantee of the accuracy or completeness of information in this document.
== END 2023-03-07 13:32 | disposition home or self-care (01) ==
LOC: MRI 13:31
PROVIDERS: PCP Internal Medicine; Visit Provider Psychiatry & Neurology Neurology
DX: I63.9 Cerebral infarction, unspecified (principal)
CPT/HCPCS: 70544

== ENCOUNTER 2023-04-12 12:32 | Outpatient (OUT) | payer MEDICARE, BC, SELFPAY ==
--- NOTE | 2023-04-12 12:56 | P.CN_ITS ---
Consult Note: HPI Data of Consult Patient: known to practice within the last 3 years Requesting Physician: Kelly Lott NP Primary Care Provider: Ovi Crooks DO Consult Narrative Reason for consult: f/u Narrative: Rupali Richardson a pleasant 82 year old female presents for evaluation of chronic low back pain, more so on the right side. Pain today 8/10 ache. Patient recently had a mini stroke, is now on plavix. Patient would like to discuss injection therapy today. Pt has found mild benefit from baclofen and gabapentin. 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 - Acquired absence of unspecified finger(s) (ICD-10) Numbness and tingling ?R20.0 - Anesthesia of skin (ICD-10) ?R20.2 - Paresthesia of skin (ICD-10) Osteoarthritis ?M19.90 - Unspecified osteoarthritis, unspecified site (ICD-10) Upper back pain ?M54.9 - Dorsalgia, unspecified (ICD-10) Low back pain ?M54.50 - Low back pain, unspecified (ICD-10) Acid reflux ?K21.9 - Gastro-esophageal reflux disease without esophagitis (ICD-10) Obesity ?E66.9 - Obesity, unspecified (ICD-10) Sleep apnea ?G47.30 - Sleep apnea, unspecified (ICD-10) Atrial fibrillation ?I48.91 - Unspecified atrial fibrillation (ICD-10) Surgical History S/P lumbar spine operation ?Z98.890 - Other specified postprocedural states (ICD-10) S/P thoracentesis ?Z98.890 - Other specified postprocedural states (ICD-10) S/P sinus surgery ?Z98.890 - Other specified postprocedural states (ICD-10) H/O hand surgery ?Z98.890 - Other specified postprocedural states (ICD-10) H/O cardiac catheterization ?Z98.890 - Other specified postprocedural states (ICD-10) History of hysterectomy ?Z90.710 - Acquired absence of both cervix and uterus (ICD-10) History of cholecystectomy ?Z90.49 - Acquired absence of other specified parts of digestive tract (ICD- 10) Hx of appendectomy ?Z90.49 - Acquired absence of other specified parts of digestive tract (ICD- 10) Meds Home Medications and Allergies Home Medications Medication Instructions Recorded Confirmed Type atorvastatin 40 mg tablet 40 mg PO DAILY 10/05/22 10/24/22 History baclofen 5 mg tablet 5 mg PO BID 10/05/22 10/24/22 History escitalopram oxalate 10 mg tablet 10 mg PO DAILY 10/05/22 10/24/22 History (Lexapro) gabapentin 100 mg capsule 100 mg PO DAILY 10/05/22 10/24/22 History isosorbide mononitrate 30 mg 30 mg PO DAILY 10/05/22 10/24/22 History tablet,extended release 24 hr losartan 50 mg tablet 50 mg PO DAILY 10/05/22 10/24/22 History metoprolol tartrate 25 mg tablet 12.5 mg PO DAILY 10/05/22 10/24/22 History oxybutynin chloride 15 mg 15 mg PO DAILY 10/05/22 10/24/22 History tablet,extended release 24 hr Allergies Allergy/AdvReac Type Severity Reaction Status Date / Time midazolam [From Versed] Allergy Unknown Verified 10/24/22 09:51 Exam Constitutional Documenting provider has reviewed patient's vital signs: yes Common normals: no apparent distress, oriented x3, healthy appearing, alert and well nourished General appearance: cooperative HENOH Common normals: normocephalic, hearing grossly normal bilaterally and moist oral mucous membranes Head and scalp: normocephalic Eye Common normals: PERRL Pupil: PERRL Neck & C-Spine Common normals: full ROM General: normal visual inspection Chest Common normals: inspection of chest normal Respiratory Common normals: normal respiratory effort, no retractions and no use of accessory muscles Back & Pelvis Lumbar spine/lower back: ROM limited and straight leg raise positive right Other: pain with palpation over bilateral superior gluteal nerves pain with michelle/fadir Extremity Common normals: normal to inspection and full ROM Neuro Common normals: oriented x3, CN's II-XII intact bilaterally, moves all extremities, no focal motor deficits, no sensory deficits noted and deep tendon reflexes 2+ bilaterally Sensorium/orientation: alert Gait (neuro): antalgic Motor exam: strength 5/5 throughout and no movement abnormalities noted Psych Common normals: mental status grossly normal, thought process normal, cooperative, affect normal, speech normal and activity/motor behavior normal Speech: normal speech Thought process: normal thought process Results Additional Findings Additional findings: I have checked an [place] report on this patient today and there are no aberrancies noted in the prescribing history.?? A drug screen was completed and reviewed within the last year, and if there has not been a drug screen completed we ordered one today to monitor higher risk, state monitored pain medication use. As part of providing excellent, safe, comprehensive care, the following was completed at our patient's visit: 1. A medication reconciliation and review to ensure accurate knowledge of current/active medications, including asking our patients to inform us about any [id number] medications or herbal remedies/nutritional supplements/alternative remedies. 2. A review to specifically ensure our patients have had annual screening for: elevated body mass index (BMI), tobacco use, screening for depression, and screening for unhealthy alcohol use. When screening is concerning, patients are provided with education and the specific recommendation to discuss the concerning health issue and treatment options with their primary care provider. Assessment and Plan Assessment and Plan (1) Neuritis: (2) Anticoagulant long-term use: (3) Lumbar spondylosis: (4) Lumbar radiculopathy: Plan will reach out to neurology to see at what point could we hold plavix for repeat caudal NKECHI as previous injection provided >3 months relief bilateral nerve block of superior gluteal nerves under fluoroscopy in consideration of thermal RFA continue HEP as tolerated increase gabapentin to 100mg BID f/u 1 week after procedure
== END 2023-04-12 12:33 | disposition home or self-care (01) ==
LOC: PM 12:33
PROVIDERS: PCP Internal Medicine; Visit Provider Nurse Practitioner
DX: M79.2 Neuralgia and neuritis, unspecified (principal); Z79.01 Long term (current) use of anticoagulants; M47.816 Spondylosis without myelopathy or radiculopathy, lumbar region; M54.16 Radiculopathy, lumbar region
CPT/HCPCS: G0463

== ENCOUNTER 2023-05-08 08:27 | Day surgery (SDC) | payer MEDICARE, BC, SELFPAY ==
--- OUTSIDE RECORDS SUMMARY | 2023-05-08 08:29 | XMS_ITS | CCD ---
Author Name Unknown Address [address] [place] [address] Organization [facility] Care Team Providers Care Headlight Adjuster Name Role Phone Zahler, Quinn Unavailable Unavailable Zahler, Quinn Unavailable Unavailable Erliner, Quinn Unavailable Unavailable OVI CROOKS~[phone] UNKNOWN Unavailable Unavailable Zahler, Quinn Unavailable Unavailable Zahler, Quinn Unavailable Unavailable Kala, Quinn Unavailable Unavailable OVI CROOKS~[phone] UNKNOWN Unavailable Unavailable MD Brina Morrissey Attending [...] (1 source) Midazolam Drug Allergy 10-03-2016 [facility] Repository (1 source) Midazolam; 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: [MIDAZOLAM] Drug Allergy 05-10-2022 [facility] Repository Medications Current Medications Medication Drug Class(es) [...] Coronary arteriosclerosis; 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: [Atherosclerotic heart disease of [place]ling[place] & [place] coronary artery without angina pectoris] Onset: 3 [...] current use of drug therapy; 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: [Other intermodal customer service (current) drug therapy] Episodic Other and ill-defined [...] 08-05-2015 Episodic Other aftercare (1 source) Other mcc (current) drug therapy; 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: [OTH NURSING HOME CURRENT DRUG THERAPY] Onset: 09-20-2021 Episodic Other [...] Range Facility Office Visiton 01-05-2023 Follow-up visit [id number] Giovanna Richardson 1940 F Date Provider Department Center 01/05/2023 NIK RICHARDS [facility] Family History Problem Relation Age of Onset No Known Problems Mother No Known Problems Father Family Status - Relation Status Age at Mother Father Level of Service:60622 [place] OFFICE/OUTPATIENT ESTABLISHED LOW MDM 20-29 MIN Normal [facility] FUNGAL AB QUANTITAIVE DOUBLE IMMUNODIFFUon 07-30-2022 Aspergillus flavus Negative Normal Neg:<1:1 [facility] Comment on above: Performed By: #### F UNGUYI #### [facility] Laboratory [address] [address] [address] Milena Rosa Aspergillus fumigatus Negative Normal Neg:<1:1 [facility] Comment on above: Performed By: #### F UNGUYI #### [facility] [address] [address] [address] Milena Rosa Aspergillus niger Negative Normal Neg:<1:1 [facility] Comment on above: Performed By: #### F UNGUYI #### [facility] [address] [address] [address] Milena Rosa Blastomyces Negative Normal Neg:<1:1 [facility] Comment on above: Performed By: #### F UNGUYI #### [facility] [address] [place] [address] Dr. Milena Rosa HISTOPLASMA GALACTOMANNAN AG URINEon 07-30-2022 Histoplasma Gal'rosales Ag <0.5 Normal <0.5 ng/mL [facility] Comment on above: Performed By: #### H ISTGAL ####[facility] [address] [address]Dr. Milena Rosa COCCIDIODES IGG/IGM AB BY IF Aon 07-29-2022 Coccidiodes Ab, IgG EIA 0.1 EIA Units Normal [facility] Comment on above: Result Comment: Nega tive <1.0 Indeterminate 1.0-1.4 Positive >1.4 Performed By: #### C OCCABS #### [facility] [address] [place] [address] Dr. Milena Rosa Coccidiodes Ab, IgM, EIA 0.0 EIA Units Normal [facility] Comment on above: Result Comment: Nega tive <1.0 Indeterminate 1.0-1.4 Positive >1.4 Performed By: #### C OCCABS #### [facility] [address] [place] [address] Dr. Milena Rosa HISTOPLASMA CAP AB QUANT DID on 07-29-2022 Histoplasma Mycelial CF Ab. Negative Normal Neg:<1:2 [facility] Comment on above: Performed By: #### H ISTDID ####[facility] [address] [place], [place] [address]Dr. Milena Rosa Histoplasma Yeast CF Ab Negative Normal Neg:<1:2 [facility] Comment on above: Performed By: #### H ISTDID ####[facility] [address] [address]Dr. Milena Rosa Office Visiton 07-26-2022 Follow-up visit [id number] Giovanna Richardson 1940 F Date Provider Department Center 07/26/2022 NIK RICHARDS [facility] Family History Problem Relation Age of Onset No Known Problems Mother No Known Problems Father Family Status - Relation Status Age at Mother Father Level of Service:55637 [place] OFFICE/OUTPATIENT ESTABLISHED MOD MDM 30-39 MIN Reason for Visit and Comments: Follow-up [639210] - 6 weeks- Go over Holter monitor results- Discuss medications Normal [facility] CT CHEST WO CONon 07-19-2022 CT CHEST [...] by: WILLIAM BERMEO Date: 2022-07-19 14:55 Normal [facility] Office Visiton 06-07-2022 Follow-up visit [id number] Giovanna Richardson 1940 F Date Provider Department Center 06/07/2022 [id number] GR [facility] Family History Problem Relation Age of Onset No Known Problems Mother No Known Problems Father Family Status - Relation Status Age at Mother Father Level of Service:00660 [place] OFFICE/OUTPATIENT ESTABLISHED MOD MDM 30-39 MIN Reason for Visit and Comments: Post-Cath [731] Normal [facility] HPon 05-17-2022 - Attestation signed by Nik [...] conscious sedation, risk and benefits discussed. 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 CBC AUTO DIFFon 05-15-2022 BASO # 0.0 103/ul Normal 0.0-0.1 [facility] Comment on above: Performed By: #### C BC #### [facility] [address] [address] [address] Milena Rosa Basophils/100 WBC (Bld) 0.3 % Normal 0.2-2.0 [facility] Comment on above: Performed By: #### C BC #### [facility] [address] [address] [address] Milena Rosa EO # 0.2 103/ul Normal 0.0-0.7 [facility] Comment on above: Performed By: #### C BC #### [facility] [address] [address] [address] Milena Rosa Eosinophils/100 WBC (Bld) 2.8 % Normal 0.9-7.0 [facility] Comment on above: Performed By: #### C BC #### [facility] [address] [address] [address] Milena Rosa Erythrocyte distribution width (RBC) [Ratio] 13.3 % Normal 11.0-15.0 [facility] Comment on above: Performed By: #### C BC #### [facility] [address] [address] [address] Milena Rosa Hematocrit (Bld) [Volume fraction] 38.5 % Normal 36.0-48.0 [facility] Comment on above: Performed By: #### C BC #### [facility] [address] [address] [address] Milena Rosa Hemoglobin (Bld) [Mass/Vol] 12.6 g/dL Normal 12.0-16.0 [facility] Comment on above: Performed By: #### C BC #### [facility] [address] [place] [address] Dr. Milena Rosa IG # 0.02 10e3/ul Normal 0.00-0.03 [facility] Comment on above: Performed By: #### C BC #### [facility] [address] [place] [address] Dr. Milena Rosa IG % 0.3 % Normal 0.0-0.5 [facility] Comment on above: Performed By: #### C BC #### [facility] [address] [place] [address] Dr. Milena Rosa LYMPH # 2.5 103/ul Normal 1.2-3.8 [facility] Comment on above: Performed By: #### C BC #### [facility] [address] [place] [address] Dr. Milena Rosa Lymphocytes/100 WBC (Bld) 37.6 % Normal 20.5-60.0 [facility] Comment on above: Performed By: #### C BC #### [facility] [address] [place] [address] Dr. Milena Rosa MANUAL DIFF REQ NO Normal [facility] Comment on above: Performed By: #### C BC #### [facility] [address] [place] [address] Dr. Milena Rosa MCH (RBC) [Entitic mass] 29.8 pg Normal 26.7-34.0 [facility] Comment on above: Performed By: #### C BC #### [facility] [address] [place] [address] Dr. Milena Rosa MCHC (RBC) [Mass/Vol] 32.7 g/dL Normal 29.9-35.2 [facility] Comment on above: Performed By: #### C BC #### [facility] [address] [place] [address] Dr. Milena Rosa MCV (RBC) [Entitic vol] 91.0 fL Normal 81.0-99.0 [facility] Comment on above: Performed By: #### C BC #### [facility] [address] [place] [address] Dr. Milena Rosa MONO # 0.7 103/ul Normal 0.3-0.8 [facility] Comment on above: Performed By: #### C BC #### [facility] [address] [place] [address] Dr. Milena Rosa Monocytes/100 WBC (Bld) 10.0 % Normal 1.7-12.0 [facility] Comment on above: Performed By: #### C BC #### [facility] [address] [place] [address] Dr. Milena Rosa NEUT # 3.3 103/ul Normal 1.4-6.5 [facility] Comment on above: Performed By: #### C BC #### [facility] [address] [place] [address] Dr. Milena Rosa Neutrophils/100 WBC (Bld) 49.0 % Normal 43.0-75.0 [facility] Comment on above: Performed By: #### C BC #### [facility] [address] [place] [address] Dr. Milena Rosa Platelet mean volume (Bld) [Entitic vol] 11.5 fL Normal 9.5-13.5 [facility] Comment on above: Performed By: #### C BC #### [facility] [address] [place] [address] Dr. Milena Rosa PLT 201 103/ul Normal 150-450 [facility] Comment on above: Performed By: #### C BC #### [facility] [address] [place] [address] Dr. Milena Rosa RBC 4.23 106/ul Normal 4.20-5.40 [facility] Comment on above: Performed By: #### C BC #### [facility] [address] [place] [address] Dr. Milena Rosa WBC 6.7 103/ul Normal 4.0-11.0 [facility] Comment on above: Performed By: #### C BC #### [facility] [address] [address] [address] Milena Rosa Covid-19 PCR (CVDTB)on 04-30 SARS-CoV-2 (COVID-19) RNA RADHA+probe Ql (Unsp spec) Not detected Normal NOT DETECTED [facility] Comment on above: Result Comment: This test is not yet approved or cleared by the [place] FDA. When there are no FDA-approved or cleared tests available, and other criteria are met, FDA can make tests available under an emergency access mechanism called an Emergency Use Authorization (EUA). The EUA for this test is supported by the [place] of Health and Human Service's (HHS's) declaration [...] with SARS-CoV-2. Performed By: #### C VDTB ####[facility] [address] [address]Dr. Milena Rosa PROF CHEM 8 (BAS METB)on Anion gap [Moles/Vol] 13.1 mmol/L Normal [facility] Comment on above: Performed By: #### B MP #### [facility] [address] [place] [address] Dr. Milena Rosa Calcium [Mass/Vol] 9.8 mg/dL Normal 8.5-10.1 [facility] Comment on above: Performed By: #### B MP #### [facility] [address] [place] [address] Dr. Milena Rosa Chloride [Moles/Vol] 103 mmol/L Normal 98-107 [facility] Comment on above: Performed By: #### B MP #### [facility] [address] [place] [address] Dr. Milena Rosa CO2 [Moles/Vol] 26.7 mmol/L Normal 21.0-32.0 [facility] Comment on above: Performed By: #### B MP #### [facility] [address] [address] [address] Milena Rosa Creatinine [Mass/Vol] 0.95 mg/dL Normal 0.55-1.02 [facility] Comment on above: Performed By: #### B MP #### [facility] [address] [address] [address] Milena Rosa EGFR-AF DOMINICAN >60 Normal >=[address] [facility] Comment on above: Performed By: #### B MP #### [facility] [address] [address] [address] Milena Rosa EGFR-NON AF DOMINICAN 57 mL/min/1.73m2 Critically low >=60 [facility] Comment on above: Performed By: #### B MP #### [facility] [address] [address] [address] Milena Rosa Glucose [Mass/Vol] 93 mg/dL Normal 74-106 [facility] Comment on above: Performed By: #### B MP #### [facility] [address] [address] [address] Milena Rosa Potassium [Moles/Vol] 3.8 mmol/L Normal 3.5-5.1 [facility] Comment on above: Performed By: #### B MP #### [facility] [address] [address] [address] Milena Rosa Sodium [Moles/Vol] 139 mmol/L Normal 136-145 [facility] Comment on above: Performed By: #### B MP #### [facility] [address] [address] [address] Milena Rosa Urea nitrogen [Mass/Vol] 18.0 mg/dL Normal 7.0-18.0 [facility] Comment on above: Performed By: #### B MP #### [facility] [address] [address] [address] Milena Rosa Urea nitrogen/Creatinine [Mass ratio] 18.9 mg/mg Normal [facility] Comment on above: Performed By: #### B #### [facility] [address] [address] [address] Milena Rosa Office Visiton 05-10-2022 Follow-up visit [id number] Giovanna Richardson 1940 F Date Provider Department Center 05/10/2022 3848-LEYDIBERNY SORIASimran [facility] Family History Problem Relation Age of Onset No Known Problems Mother No Known Problems Father Family Status - Relation Status Age at Mother Father Level of Service:36191 [place] OFFICE/OUTPATIENT NEW MODERATE MDM 45-59 MINUTES Reason for Visit and Comments: Cardiac Stress Test [489] Normal [facility] NM STRESS/REST MULTIon 04-28 NM STRESS/REST MULTI Patient: GIOVANNA RICHARDSON Exam Date: 04/28/2022 : 1940 Gender:F Ordering : DR OVI CROOKS DNinfa Admission #: [id number] Family : Order #: [id number] CLICK HERE TO VIEW EXAM RADIOLOGY REPORT [...] on 04/28/2022 at 14:22 Approved by: Gómez Zieglre MD on 04/28/2022 at 14:26 Normal [facility] CBC AUTO DIFFon 02-27-2022 BASO # 0.0 103/ul Normal 0.0-0.1 [facility] Comment on above: Performed By: #### C BC ####[facility] [address] [address]Dr. Milena Rosa Basophils/100 WBC (Bld) 0.5 % Normal 0.2-2.0 [facility] Comment on above: Performed By: #### C BC ####[facility] [address] [place], [place] [address]Dr. Milena Rosa EO # 0.1 103/ul Normal 0.0-0.7 [facility] Comment on above: Performed By: #### C BC ####[facility] [address] [place], [place] [address]Dr. Milena Rosa Eosinophils/100 WBC (Bld) 1.9 % Normal 0.9-7.0 [facility] Comment on above: Performed By: #### C BC ####[facility] [address] [place], [place] [address]Dr. Milena Rosa Erythrocyte distribution width (RBC) [Ratio] 14.3 % Normal 11.0-15.0 [facility] Comment on above: Performed By: #### C BC ####[facility] [address] [place], [place] [address]Dr. Milena Rosa Hematocrit (Bld) [Volume fraction] 37.6 % Normal 36.0-48.0 [facility] Comment on above: Performed By: #### C BC ####[facility] [address] [place], [place] [address]Dr. Milena Rosa Hemoglobin (Bld) [Mass/Vol] 12.6 g/dL Normal 12.0-16.0 [facility] Comment on above: Performed By: #### C BC ####[facility] [address] [address]Dr. Milena Rosa IG # 0.02 10e3/ul Normal 0.00-0.03 [facility] Comment on above: Performed By: #### C BC ####[facility] [address] [address]Dr. Milena Rosa IG % 0.3 % Normal 0.0-0.5 [facility] Comment on above: Performed By: #### C BC ####[facility] [address] [address]Dr. Milena Rosa LYMPH # 2.1 103/ul Normal 1.2-3.8 [facility] Comment on above: Performed By: #### C BC ####[facility] [address] [address]DrElia Roas Lymphocytes/100 WBC (Bld) 33.2 % Normal 20.5-60.0 [facility] Comment on above: Performed By: #### C BC ####[facility] [address] [address]DrElia Rosa MANUAL DIFF REQ NO Normal [facility] Comment on above: Performed By: #### C BC ####[facility] [address] [address]Dr. Milena Rosa MCH (RBC) [Entitic mass] 30.9 pg Normal 26.7-34.0 [facility] Comment on above: Performed By: #### C BC ####[facility] [address] [address]Dr. Milena Rosa MCHC (RBC) [Mass/Vol] 33.5 g/dL Normal 29.9-35.2 [facility] Comment on above: Performed By: #### C BC ####[facility] [address] [address]Dr. Milena Rosa MCV (RBC) [Entitic vol] 92.2 fL Normal 81.0-99.0 [facility] Comment on above: Performed By: #### C BC ####[facility] [address] [address] Milena Rosa MONO # 0.6 103/ul Normal 0.3-0.8 [facility] Comment on above: Performed By: #### C BC ####[facility] [address] [address] Milena Rosa Monocytes/100 WBC (Bld) 8.9 % Normal 1.7-12.0 [facility] Comment on above: Performed By: #### C BC ####[facility] [address] [address] Milena Rosa NEUT # 3.5 103/ul Normal 1.4-6.5 [facility] Comment on above: Performed By: #### C BC ####[facility] [address] [address]Dr. Milena Rosa Neutrophils/100 WBC (Bld) 55.2 % Normal 43.0-75.0 [facility] Comment on above: Performed By: #### C BC ####[facility] [address] [address] Milena Rosa Platelet mean volume (Bld) [Entitic vol] 11.6 fL Normal 9.5-13.5 [facility] Comment on above: Performed By: #### C BC ####[facility] [address] [address] Milena Rosa PLT 217 103/ul Normal 150-450 [facility] Comment on above: Performed By: #### C BC ####[facility] [address] [address] Milena Rosa RBC 4.08 106/ul Critically low 4.20-5.40 [facility] Comment on above: Performed By: #### C BC ####[facility] [address] [address]Dr. Milena Rosa WBC 6.3 103/ul Normal 4.0-11.0 [facility] Comment on above: Performed By: #### C BC ####[facility] [address] [place], [place] [address]Bo. Milena Rosa ECHOCARDIO M/2D COMPLETEon 1 ECHOCARDIO M/2D COMPLETE Patient: GIOVANNA RICHARDSON Exam Date: 02/27/2022 : 1940 Gender:F Ordering : DR OVI CROOKS DEliaOElia Admission #: [id number] Family : Order #: [id number] CLICK HERE TO VIEW EXAM ECHOCARDIOGRAM REPORT [...] Christie M.D. on 03/01/2022 at 11:53 Normal [facility] PROF CHEM 8 (BAS METB)on Anion gap [Moles/Vol] 6.1 mmol/L Normal [facility] Comment on above: Performed By: #### B TERESA TSH #### [facility] [address] [place] [address] Dr. Milena Rosa Calcium [Mass/Vol] 9.0 mg/dL Normal 8.5-10.1 [facility] Comment on above: Performed By: #### B TERESA, TSH #### [facility] [address] [address] [address] Milena Rosa Chloride [Moles/Vol] 103 mmol/L Normal 98-107 [facility] Comment on above: Performed By: #### B MP, TSH #### [facility] [address] [address] [address] Milena Rosa CO2 [Moles/Vol] 34.4 mmol/L Critically high 21.0-32.0 [facility] Comment on above: Performed By: #### B MP, TSH #### [facility] [address] [address] [address] Milena Rosa Creatinine [Mass/Vol] 1.21 mg/dL Critically high 0.55-1.02 [facility] Comment on above: Performed By: #### B MP, TSH #### [facility] [address] [place] [address] Dr. Milena Rosa EGFR-AF DOMINICAN 52 mL/min/1.73m2 Critically low >=60 [facility] Comment on above: Performed By: #### B MP, TSH #### [facility] [address] [place] [address] Dr. Milena Rosa EGFR-NON AF DOMINICAN 43 mL/min/1.73m2 Critically low >=60 [facility] Comment on above: Performed By: #### B MP, TSH #### [facility] [address] [place] [address] Dr. Milena Rosa Glucose [Mass/Vol] 101 mg/dL Normal 74-106 [facility] Comment on above: Performed By: #### B MP, TSH #### [facility] [address] [place] [address] Dr. Milena Rosa Potassium [Moles/Vol] 3.5 mmol/L Normal 3.5-5.1 [facility] Comment on above: Performed By: #### B MP, TSH #### [facility] [address] [place] [address] Dr. Milena Rosa Sodium [Moles/Vol] 140 mmol/L Normal 136-145 [facility] Comment on above: Performed By: #### B MP, TSH #### [facility] [address] [address] [address] Milena Rosa Urea nitrogen [Mass/Vol] 20.0 mg/dL Critically high 7.0-18.0 [facility] Comment on above: Performed By: #### B MP, TSH #### [facility] [address] [address] [address] Milena Rosa Urea nitrogen/Creatinine [Mass ratio] 16.5 mg/mg Normal [facility] Comment on above: Performed By: #### B MP, TSH #### [facility] [address] [address] [address] Milena Rosa TSHon 02-27-2022 TSH 1.640 uIU/mL Normal 0.358-3.740 [facility] Comment on above: Performed By: #### B MP, TSH #### [facility] [address] [address] [address] Milena Rosa XR CHEST 2 Von [...] by: WHITNEY FOURNIER Date: 2022-02-27 13:49 Normal [facility] MRI LSPINE WO CONon 01-10-20 MRI LSPINE [...] by: WILLIAM BERMEO Date: 2022-01-09 16:20 Normal [facility] XR hand BI 3Von 12-21-2021 XR hand BI 3V [facility] Main [place] [address] [place] [address] XRay Report Signed Patient: Giovanna Richardson MR#: [id number] : 1940 Acct:[id number] Age/Sex: 81 / F ADM Date: 12/21/21 Loc: [facility] Room: Type: [facility] Attending Dr: Brina Morrissey MD Copies to: [...] Caal Jr., D.O.12/21/2021 2:31 PM Dictation Location: [place] [address] Transcribed By: [facility] 12/21/21 1431 Dictated By: Erasmo Caal Jr, DO 12/21/21 1427 Signed By: 12/21/21 1431 Normal [facility] CBC AUTO DIFFon 09-14-2021 BASO # 0.0 103/ul Normal 0.0-0.1 [facility] Comment on above: Performed By: #### C BC #### [facility] [address] [address] [address] Milena Rosa Basophils/100 WBC (Bld) 0.2 % Normal 0.2-2.0 [facility] Comment on above: Performed By: #### C BC #### [facility] [address] [address] [address] Milena Rosa EO # 0.1 103/ul Normal 0.0-0.7 [facility] Comment on above: Performed By: #### C BC #### [facility] [address] [address] [address] Milena Rosa Eosinophils/100 WBC (Bld) 2.8 % Normal 0.9-7.0 [facility] Comment on above: Performed By: #### C BC #### [facility] [address] [place] [address] Dr. Milena Rosa Erythrocyte distribution width (RBC) [Ratio] 13.4 % Normal 11.0-15.0 [facility] Comment on above: Performed By: #### C BC #### [facility] [address] [place] [address] Dr. Milena Rosa Hematocrit (Bld) [Volume fraction] 38.2 % Normal 36.0-48.0 [facility] Comment on above: Performed By: #### C BC #### [facility] [address] [place] [address] Dr. Milena Rosa Hemoglobin (Bld) [Mass/Vol] 12.5 g/dL Normal 12.0-16.0 [facility] Comment on above: Performed By: #### C BC #### [facility] [address] [place] [address] Dr. Milena Rosa IG # 0.02 10e3/ul Normal 0.00-0.03 [facility] Comment on above: Performed By: #### C BC #### [facility] [address] [place] [address] Dr. Milena Rosa IG % 0.4 % Normal 0.0-0.5 [facility] Comment on above: Performed By: #### C BC #### [facility] [address] [place] [address] Dr. Milena Rosa LYMPH # 2.1 103/ul Normal 1.2-3.8 [facility] Comment on above: Performed By: #### C BC #### [facility] [address] [place] [address] Dr. Milena Rosa Lymphocytes/100 WBC (Bld) 40.5 % Normal 20.5-60.0 [facility] Comment on above: Performed By: #### C BC #### [facility] [address] [place] [address] Dr. Milena Rosa MANUAL DIFF REQ NO Normal [facility] Comment on above: Performed By: #### C BC #### [facility] [address] [address] [address] Milena Rosa MCH (RBC) [Entitic mass] 29.7 pg Normal 26.7-34.0 [facility] Comment on above: Performed By: #### C BC #### [facility] [address] [place] [address] Dr. Milena Rosa MCHC (RBC) [Mass/Vol] 32.7 g/dL Normal 29.9-35.2 [facility] Comment on above: Performed By: #### C BC #### [facility] [address] [place] [address] Dr. Milena Rosa MCV (RBC) [Entitic vol] 90.7 fL Normal 81.0-99.0 [facility] Comment on above: Performed By: #### C BC #### [facility] [address] [place] [address] Dr. Milena Rosa MONO # 0.6 103/ul Normal 0.3-0.8 [facility] Comment on above: Performed By: #### C BC #### [facility] [address] [place] [address] Dr. Milena Rosa Monocytes/100 WBC (Bld) 12.0 % Normal 1.7-12.0 [facility] Comment on above: Performed By: #### C BC #### [facility] [address] [place] [address] Dr. Milena Rosa NEUT # 2.3 103/ul Normal 1.4-6.5 [facility] Comment on above: Performed By: #### C BC #### [facility] [address] [place] [address] Dr. Milnea Rosa Neutrophils/100 WBC (Bld) 44.1 % Normal 43.0-75.0 [facility] Comment on above: Performed By: #### C BC #### [facility] [address] [place] [address] Dr. Milena Rosa Platelet mean volume (Bld) [Entitic vol] 11.7 fL Normal 9.5-13.5 [facility] Comment on above: Performed By: #### C BC #### [facility] [address] [address] [address] Milena Rosa PLT 206 103/ul Normal 150-450 [facility] Comment on above: Performed By: #### C BC #### [facility] [address] [address] [address] Milena Rosa RBC 4.21 106/ul Normal 4.20-5.40 [facility] Comment on above: Performed By: #### C BC #### [facility] [address] [address] [address] Milena Rosa WBC 5.1 103/ul Normal 4.0-11.0 [facility] Comment on above: Performed By: #### C BC #### [facility] [address] [address] [address] Milena Rosa MG MAMM SCREEN 3D SHERICE CADon 09-14-2021 MG MAMM SCREEN 3D SHERICE CAD Patient: GIOVANNA RICHARDSON Exam Date: 09/14/2021 : 1940 Gender:F Ordering : DR OVI CROOKS D.O. Admission #: [id number] Family : Order #: [id number] CLICK HERE TO VIEW EXAM RADIOLOGY REPORT [...] Treatments None Family Cancers None LOCATION: [facility] BREAST COMPOSITION: Scattered areas fibroglandular density. FINDINGS: [...] Ziegler MD on 09/14/2021 at 10:42 Normal [facility] PROF CHEM 8 (BAS METB)on Anion gap [Moles/Vol] 10.5 mmol/L Normal [facility] Comment on above: Performed By: #### B MP #### [facility] [address] [place] [address] Dr. Milena Rosa Calcium [Mass/Vol] 9.5 mg/dL Normal 8.5-10.1 [facility] Comment on above: Performed By: #### B MP #### [facility] [address] [address] [address] Milena Rosa Chloride [Moles/Vol] 101 mmol/L Normal 98-107 [facility] Comment on above: Performed By: #### B MP #### [facility] [address] [place] [address] Dr. Milena Rosa CO2 [Moles/Vol] 31.1 mmol/L Normal 21.0-32.[address] [facility] Comment on above: Performed By: #### B MP #### [facility] [address] [place] [address] Dr. Milena Rosa Creatinine [Mass/Vol] 1.01 mg/dL Normal 0.55-1.02 [facility] Comment on above: Performed By: #### B MP #### [facility] [address] [place] [address] Dr. Milena Rosa EGFR-AF DOMINICAN >60 Normal >=[address] [facility] Comment on above: Performed By: #### B MP #### [facility] [address] [address] [address] Milena Rosa EGFR-NON AF DOMINICAN 53 mL/min/1.73m2 Critically low >=60 [facility] Comment on above: Performed By: #### B MP #### [facility] [address] [address] [address] Milena Rosa Glucose [Mass/Vol] 96 mg/dL Normal 74-106 [facility] Comment on above: Performed By: #### B MP #### [facility] [address] [place] [address] Dr. Milena Rosa Potassium [Moles/Vol] 3.6 mmol/L Normal 3.5-5.1 [facility] Comment on above: Performed By: #### B MP #### [facility] [address] [address] [address] Milena Rosa Sodium [Moles/Vol] 139 mmol/L Normal 136-145 [facility] Comment on above: Performed By: #### B MP #### [facility] [address] [address] [address] Milena Rosa Urea nitrogen [Mass/Vol] 20.0 mg/dL Critically high 7.0-18.0 [facility] Comment on above: Performed By: #### B MP #### [facility] [address] [address] [address] Milena Rosa Urea nitrogen/Creatinine [Mass ratio] 19.8 mg/mg Normal [facility] Comment on above: Performed By: #### B MP #### [facility] [address] [address] [address] Milena Rosa Coding Summary.on 12-26-2017 Coding Summary. CODING DATE: 12/26/2017 FINAL [facility] STATUS: Home (Routine DC) PAYOR: Medicare APC DESCRIPTION 5[address] [facility] Procedures ADMIT DX: REASON FOR VISIT DX: H26.492 Other secondary cataract, left eye FINAL DX: PRINCIPAL: H26.492 Other secondary cataract, left eye SECONDARY: PYMT PROC APC STAT DESCRIPTION DOCTOR NAME DATE 19616 5481 T Discission of secondary Kala KENNEDY [...] Revised Date Saved: 12/26/2017 11:03 am Normal [place] Coding Summary.on 12-19-2017 Coding Summary. CODING DATE: 12/19/2017 FINAL [facility] STATUS: Home (Routine DC) PAYOR: Medicare APC DESCRIPTION [address] [facility] Procedures ADMIT DX: REASON FOR VISIT DX: H26.40 Unspecified secondary cataract FINAL DX: PRINCIPAL: H26.40 Unspecified secondary cataract SECONDARY: PYMT PROC APC STAT DESCRIPTION DOCTOR NAME DATE 28550 5481 T Discission of secondary Quinn Armendariz [...] Perez Date Saved: 12/19/2017 09:21 am Normal [place] Vital Signs Date Time Vital Sign Value Performing Clinician Facility 02-20-2023 16:00-[address] [facility] Other [facility] Other 02-20-2023 16:00-0400 Body mass index (BMI) [Ratio] 30.44 kg/m2 [facility] Other [facility] Other 02-20-2023 16:00-0400 Body weight 69.54 kg [facility] [employer] Other [facility] Other 02-20-2023 16:00-0400 Diastolic blood pressure 78 mm[Hg] [facility] [employer] Other [facility] Other 02-20-2023 16:00-0400 Respiratory rate 12 /min [facility] [employer] Other [facility] Other 02-20-2023 16:00-0400 Systolic blood pressure 144 mm[Hg] [facility] [employer] Other [facility] Other 07-17-2022 16:30-0400 Body height Ovi Ball Other [facility] Other 07-17-2022 16:30-0400 Body mass index (BMI) [Ratio] 31.33 kg/m2 Ovi Ball Other [facility] Other 07-17-2022 16:30-0400 Body weight 71.58 kg Ovi Ball Other [facility] Other 07-17-2022 16:30-0400 Diastolic blood pressure 75 mm[Hg] Ovi Ball Other [facility] Other 07-17-2022 16:30-0400 Respiratory rate 12 /min Ovi Ball Other [facility] Other 07-17-2022 16:30-0400 Systolic blood pressure 122 mm[Hg] Ovi Ball Other [facility] Other 12-21-2021 11:00-0400 Body height Brina Morrissey Other [facility] Other Encounters Encounter Date Encounter Type Care Provider Facility Start: 04-17-2023 End: 04-17-2023 ambulatory Ovi Ball Other [facility] Other Start: 04-17-2023 Telephone encounter Ovi Ball [facility] Start: 03-13-2023 End: 03-13-2023 ambulatory Ovi Ball Other [facility] Other Start: 03-13-2023 Telephone encounter Ovi Ball [facility] Start: 03-07-2023 End: 03-07-2023 ambulatory Ovi Ball Other [facility] Other Start: 03-07-2023 Telephone encounter Ovi Ball [facility] Start: 03-01-2023 End: 03-01-2023 ambulatory Ovi Crooks Other [facility] Other Start: 03-01-2023 Telephone encounter Ovi Crooks [facility] Start: 02-28-2023 End: 02-28-2023 ambulatory Ovi Crooks Other [facility] Other Start: 02-28-2023 Telephone encounter Ovi Crooks [facility] Start: 02-22-2023 End: 02-22-2023 ambulatory Ovi Crooks Other [facility] Other Start: 02-22-2023 Telephone encounter Ovi Crooks [facility] Start: 02-21-2023 End: 02-21-2023 ambulatory Ovi Crooks Other [facility] Other Start: 02-21-2023 Telephone encounter Ovi Crooks [facility] Start: 02-20-2023 End: 02-20-2023 ambulatory Ovi Crooks Other [facility] Other Start: 02-20-2023 Office outpatient vi sit 25 minutes Ovi Crooks [facility] Start: 01-23-2023 End: 01-23-2023 ambulatory Ovi Crooks Other [facility] Other Start: 01-23-2023 Telephone encounter Ovi Crooks [facility] Start: 01-16-2023 End: 01-16-2023 ambulatory Brina Morrissey Other [facility] Other Start: 01-16-2023 Office outpatient vi sit 15 minutes Brina Morrissey [facility] Start: 01-05-2023 End: 01-05-2023 [facility] Start: 11-23-2022 ambulatory DAVID KAPOOR . Facili ty:[facility]1 Start: 09-01-2022 End: 09-02-2022 ambulatory DAVID KAPOOR . Facility:[facility]1 Start: 07-31-2022 End: 07-31-2022 ambulatory Brina Morrissey Other [facility] Other Start: 07-31-2022 Telephone encounter Brina Wright [facility] Start: 07-26-2022 End: 07-27-[address] OVI CROOKS Facility:[facility]1 Start: 07-26-2022 End: 07-26-2022 ambulatory [facility] Start: 07-25-2022 End: 07-25-2022 ambulatory NARJESENIAATH LAKSHMIPATHY . Facility:[facility]1 Start: 07-20-2022 End: 07-21-2022 ambulatory NARCLARERANATH LAKSHMIPATHY . Facility:[facility]1 Start: 07-19-2022 End: 07-20-[address] OVI CROOKS [facility] Other Start: 07-19-2022 Telephone encounter Ovi IBARRA [facility] Start: 07-17-2022 End: 07-17-2022 ambulatory Ovi Crooks Other [facility] Other Start: 07-17-2022 Patient encounter procedure Ovi Crooks [facility] Start: 06-20-2022 End: 06-20-[address] ELIZABETH JESSICA . Facility:[facility]1 Start: 06-07-2022 Telephone encounter Brina Wright [facility] Start: 06-07-2022 End: 06-07-2022 ambulatory [facility]S [facility] Other Start: 05-20-2022 [facility] Start: 05-17-2022 End: 05-17-2022 ambulatory [facility] Start: 05-15-2022 End: 05-16-2022 ambulatory [facility] Facility:[facility]1 Start: 05-15-2022 End: 05-16-2022 Encounter for preprocedural laboratory examination [facility] Facility:[facility]1 Start: 05-10-2022 End: 05-10-2022 ambulatory [facility] Start: 05-09-[address] ELIZABETH JESSICA . [...] 01-18-2022 End: 01-18-2022 ambulatory Brina Morrissey Other [facility] Other Start: 01-18-2022 Office outpatient vi sit 15 minutes Brina Morrissey [facility] Start: 01-09-2022 End: 01-10-2022 ambulatory MARY CRISTOBAL . Facility:[facility]1 Start: 12-29-2021 End: 12-30-2021 ambulatory MARY CRISTOBAL . Facility:[facility]1 Start: 12-21-2021 End: 12-21-2021 ambulatory Brina Morrissey Other [facility] Other Start: 12-21-2021 Office outpatient ne w 30 minutes Brina Morrissey [facility] Start: 12-21-2021 End: 12-21-2021 Patient encounter procedure MD Brina Morrissey Work Phone: [facility] Start: 12-13-2021 End: 12-13-[address] ELIZABETH JESSICA . Facility:[facility]1 Start: 12-01-2021 End: 12-02-2021 ambulatory MARY CRISTOBAL . Facility:[facility]1 Start: 09-14-2021 End: 09-15-[address] OVI CROOKS Facility: Start: 08-17-2021 Adult health examination Brina Morrissey Other [facility] Other Start: 12-25-2017 End: 12-25-2017 Patient encounter Quinn Armendariz Facility:[facility] Start: 12-18-2017 End: 12-18-2017 Patient encounter Quinn Armendariz Facility:[facility] Procedures Date Procedure Procedure Detail Performing Clinician Start: 07-26-2022 Follow-up visit Follow-up NIK GR Start: 12-21-2021 Plain X-ray of castlilo Morrissey Work Phone: Start: 03-26-2018 Screening for osteoporosis Brina Morrissey Other Start: 08-05-2015 Screening for malign ant neoplasm of colon Brina Morrissey Other Start: 08-05-2015 Screening mammography C oleliz Morrissey Other Cough 786.2 Brina Morrissey Depression screening Brina Ghanshyam Other Screening for malign ant neoplasm of breast Brina Ghanshyam Other Immunizations Immunization Date Immunization Notes Care Provider Fa [facility] 02-17-2022 influenza, high dose seasonal, preservative-free Ovi Crooks Other [facility] Other 02-17-2022 influenza virus vaccine, split virus (incl. purified surface antigen) Brina Morrissey Other [facility] Other 04-04-2021 COVID-19 Vaccine Pfi zer - Documentation Purposes Only Ovi Crooks Other [facility] Other 01-17-2021 influenza virus vaccine, split virus (incl. purified surface antigen) Brina Morrissey Other [facility] Other 06-17-2020 COVID-19 Vaccine Pfi zer - Documentation Purposes Only Ovi Crooks Other [facility] Other 05-27-2020 COVID-19 Vaccine Moderna - Documentation Purposes Only Brina Morrissey Other [facility] Other 05-27-2020 COVID-19 Vaccine Pfi zer - Documentation Purposes Only Ovi Crooks Other [facility] Other 03-10-2020 influenza virus vaccine, split virus (incl. purified surface antigen) Brina Morrissey Other [facility] Other 03-07-2019 influenza virus vaccine, split virus (incl. purified surface antigen) Brina Morrissey Other [facility] Other 03-27-2018 influenza virus vaccine, split virus (incl. purified surface antigen) Brina Morrissey Other [facility] Other 03-16-2017 pneumococcal Conjuga te, unspecified formulation; 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: [Need for prophylactic vaccination against Streptococcus pneumoniae (pneumococcus)] Brina Morrissey Other [facility] Other 03-16-2017 pneumococcal polysaccharide vaccine, 23 valent Ovi Crooks Other [facility] Other 11-17-2016 pneumococcal conjuga te vaccine, 13 valent Ovi Crooks Other [facility] Other 02-09-2016 influenza virus vaccine, split virus (incl. purified surface antigen) Brina Morrissey Other [facility] Other Payers Date Payer Category Payer Medicare [id number] 1957 Medicare [id number] 1957 Unknown [id number] 1940 Unknown [id number] 2.16.84 0.1.770397.3.579.2.593 1940 Unknown [id number] 2.16.84 0.1.048979.3.579.2.593 1940 Unknown [id number] 2.16.84 0.1.941459.3.579.2.593 1942 Unknown [id number] 2.16.84 0.1.143107.3.579.2.593 1940 Unknown [id number] 2.16.84 0.1.296147.3.579.2.593 1940 Unknown [id number] 2.16.84 0.1.599282.3.579.2.593 1940 Unknown [id number] 2.16.84 0.1.786263.3.579.2.593 1940 Unknown [id number] 2.16.84 0.1.345475.3.579.2.593 1940 Unknown [id number] 2.16.84 0.1.117804.3.579.2.593 1940 Unknown [id number] 2.16.84 0.1.975485.3.579.2.593 1942 Unknown [id number] 2.16.84 0.1.234813.3.579.2.593 1942 Unknown [id number] 2.16.84 0.1.640199.3.579.2.593 1942 Unknown [id number] 2.16.84 0.1.742496.3.579.2.593 1940 Unknown [id number] 2.16.84 0.1.735110.3.579.2.593 1942 Unknown [id number] 2.16.84 0.1.734842.3.579.2.593 1942 Unknown [id number] 2.16.84 0.1.451234.3.579.2.593 1942 Unknown [id number] 2.16.84 0.1.140984.3.579.2.593 1940 Unknown [id number] 2.16.84 0.1.219517.3.579.2.593 1940 Unknown [id number] 2.16.84 0.1.928699.3.579.2.593 1940 Unknown [id number] 2.16.84 0.1.861470.3.579.2.593 1940 Unknown [id number] 2.16.84 0.1.809627.3.579.2.593 1940 Unknown [id number] 2.16.84 0.1.654230.3.579.2.593 1940 Unknown [id number] 2.16.84 0.1.717333.3.579.2.593 1940 Unknown [id number] 2.16.84 0.1.954285.3.579.2.593 Social History Date Type Detail Facility Tobacco smoking status DCIS Unknown if ever smoked [facility] Work Phone: Start: 1940 Sex Assigned At Female F [facility] Sex Assigned At Sex Assigned At Bir th [facility] Other Clinical Notes 12-01-2021 to 04-17-2023 Note Date & Type Note Facility 04-17-2023 Evaluation note Encounter Date Diagnosis Assessment Notes Mar, Acute cerebral infarction (ICD-10 - I63.9) Mar, Cerebral atherosclerosis (ICD-10 - I67.2) [facility] Other 11-01-2023 Evaluation note* Encounter Date Diagnosis Assessment Notes Treatment Notes Treatment Clinical Notes Feb, Acute cerebral infarction (ICD-10 - I63.9) [facility] Other 11-01-2023 Evaluation note* Encounter Date Diagnosis Assessment Notes Treatment Notes Treatment Clinical Notes Feb, Bruit (ICD-10 - R09.89) [facility] Other 10-25-2023 Evaluation note* Encounter Date Diagnosis Assessment Notes Treatment Notes Treatment Clinical Notes Jan, Transient left leg weakness (ICD-10 - R29.898) Jan, Jerking movements of extremities (ICD-10 - R25.2) [facility] Other 10-24-2023 Evaluation note* Encounter Date Diagnosis [...] the risk for cerebrovascular and cardiovascular disease. [facility] Other 09-19-2023 Evaluation note* Encounter Date Diagnosis [...] Pain in left hand (ICD-10 - M79.642) [facility] Other 09-08-2023 NoteCardiology Clinic Note Chief Complaint: [...] in all muscle groups, (more content not included)...[facility]09-08-2023 NotePatient here for 6 mo follow up CAD, hypertension, and hyperlipidemia. Has not been taking aspirin because she doesn't like taking a lot of pills. Says she's only had chest pain once recently. Sees Dr. Smith and had CT chest in September. [facility]04-03-2023 Evaluation note* Encounter Date Diagnosis Assessment Notes Treatment Notes Treatment Clinical Notes Jul, Pulmonary nodule (ICD-10 - R91.1) RUL 10mm nodule - 06/3022Jul, Cough (ICD9-CM - 786.2) Jul, Mild persistent asthma without complication (ICD-10 - J45.30) [facility] Other 03-29-2023 NoteCardiology Clinic Note Chief Complaint: [...] motor function in all (more content not included)...[facility]03-23-2023 NoteCONSULTATION CONSULTATION DATE: 07/20/2022 TO: Dr. Crooks [...] be helping some of her pain symptoms.[id number] Evaluation note* Encounter Date Diagnosis Assessment Notes Treatment Notes Treatment Clinical Notes Jun, Pulmonary nodule (ICD-10 - R91.1) RUL 10mm nodule - 06/3022 [facility] Other 03-20-2023 Evaluation note* Encounter Date Diagnosis [...] use, the patient reduces the risk for KS, CVA, HTN, cardiac dysrhythmias and sudden cardiac [...] mammogram for breast cancer (ICD-10 - Z12.31) [facility] Other 02-08-2023 Evaluation note* Encounter Date Diagnosis Assessment Notes Treatment Notes Treatment Clinical Notes May, ASHD (arterioscleroti c heart disease) (ICD-10 - I25.10) LHC: moderate, nonobstructive coronary disease - 05/2022 [facility] Other 02-08-2023 NotePatient here for follow up [...] light-headedness. All other systems reviewed and are negative.[facility] 06-07-2022 NoteCardiology Clinic Note Chief Complaint: abnormal [...] Value Ventricular Rate 53 Atrial Rate 53 W[place] Interval 186 QRS DURATION 142 QT Interval 472 QTC CALCULATION(BAZETT) 442 P [place] 29 R-[place] -35 T Wave [place] 59 Impression Sinus bradycardia Left axis deviation Left bundle branch block Abnormal ECG When compared with ECG of 30-NOV-2008 12:01, Premature atrial comple (more content not included)...[facility]01-18-2023 NotePatient: Giovanna Gordon Lcwilber Procedure Information Date/Time: 05/17/22 0830 Procedure: CORONARY ANGIOGRAPHY Location: [facility] [address] / [facility] (Cath) Providers: Nik Gr MD Clinical information reviewed: Allergies Meds OB Status Physical Exam Airway Mallampati: III TM distance: >3 FB Neck ROM: full Cardiovascular Rhythm: regular Rate: normal Dental Pulmonary Abdominal Anesthesia Plan ASA 3 CSE Anesthetic plan and risks discussed with patient. Plan discussed with attending. [facility] Note Chief Complaint: [...] Value Ventricular Rate 53 Atrial Rate 53 W[place] Interval 186 QRS DURATION 142 QT Interval 472 QTC CALCULATION(BAZETT) 442 P [place] 29 R-[place] -35 T Wave [place] 59 Impression Sinus bradycardia Left axis deviation [...] Plan: -The patient's find (more content not included)...[facility]01-11-2023 NoteNew patient here to re-establish care. She [...] light-headedness. All other systems reviewed and are negative.[facility] 02-23-2022 NoteCONSULTATION CONSULTATION DATE: 02/23/2022 This is [...] will be followed in the clinic thereafter.[facility] [id number] Evaluation note* Encounter Date Diagnosis Assessment Notes [...] in both duran ds (ICD-10 - R20.0) [facility] Other 09-01-2022 NoteCONSULTATION CONSULTATION DATE: 12/29/2021 HISTORY [...] patient is in agreement to move forward.[facility] [id number] Evaluation note* Encounter Date Diagnosis Assessment Notes [...] in both duran ds (ICD-10 - R20.0) [facility] Other 08-04-2022 NoteCONSULTATION CONSULTATION DATE: 12/01/2021 HISTORY [...] followed up in the office post procedure.[facility] CenterEvaluation noteNo assessment information availableKettering Health [facility] Work Phone: Evaluation noteNo InformationNort for; to (do) Centers Other History general Narrative - Reported* Type Description Date Medical History Esophageal reflux Medical History seasonal allergies Medical History [place] Medical History Hypertension Surgical History APPENEDECTOMY Surgical History HYSTERECTOMY Surgical History SINUS Surgical History LEFT HAND Surgical History HEART CATH Surgical History CHOLECYSTECTOMY [facility] Other HisReliSen general Narrative - Reported* Type Description Date Medical History Esophageal reflux Medical History seasonal allergies Medical History [place] Medical History Hypertension Medical History ASHD (arteriosclerotic heart dis ease) Surgical History APPENEDECTOMY Surgical History HYSTERECTOMY Surgical History SINUS Surgical History LEFT HAND Surgical History HEART CATH Surgical History CHOLECYSTECTOMY Surgical History cardiac catheterization 06/07/22 [facility] Other Hisazkt general Narrative - Reported* Type Description Date [...] catheterization 06/07/22 Hospitalization History SEE SURGICAL HX [facility] Other Summary Purpose Family History No Family History Records FoundNo Family History Records FoundNo Family History Records FoundNo Family History Records Found Advance Directives Advance Directive Response Recorded Date/ Time Advance Directives No December 21, 2021 12:20pm Chief Complaint and Reason for Visit Chief Complaint M79.641 Additional Source Comments INFORMATION SOURCE (unrecogn ized section and content) DATE CREATED AUTHOR 12/29/[address] [facility] [facility] DATE CREATED AUTHOR AUTHOR'S ORGANIZ ATION 12/25/2021 [facility] DATE CREATED AUTHOR AUTHOR'S ORGANIZ ATION 09/08/2022 [facility] DATE CREATED AUTHOR AUTHOR'S ORGANIZ ATION 01/06/2023 [facility] Care Teams (unrecognized sec tion and [...] BE BASED ON THE PRIMARY CLINICAL RECORDS. [employer] [facility]. provides no warranty or guarantee of the accuracy or completeness of information in this document.
[2023-05-08 08:39] VITALS: BP 109/68; PULSE 61; RESP 16; TEMP 36.4; O2SAT 99
[2023-05-08 09:35] VITALS: BP 125/68; PULSE 69; RESP 20; O2SAT 94
[2023-05-08 09:37] VITALS: BP 151/69; PULSE 66; O2SAT 94
[2023-05-08] MEDS: BUPIVACAINE HCL 0.25% PF 25 MG/10 ML VIAL 8 ML INJ (09:41)
--- NOTE | 2023-05-08 10:47 | W.PM.PROCNOT ---
Date of procedure: 05/08/23 Pre-op diagnosis: Bilateral Gluteal nerve neuritis Post-op diagnosis: same as pre-op Procedure: Bilateral Superior gluteal nerve block, diagnostic Performed under fluoroscopic guidance Immediate complications none Anesthesia: none Solution used for injection: In each syringe, 2 milliliters 0.25% Marcaine 2.5 mL is used for injection for each side Time out process compliant After informed consent obtained patient was brought to the procedure room placed in the prone position skin overlying the area was prepped and draped in a sterile fashion using betadine. 25 gauge spinal needle Insert over each of the target areas identified in fluoroscopy corresponding needles were advanced Under fluoroscopic guidance until the target/targets encountered, no indication of intravascular or Intraneuronal needle tip placement. Solution injected.needles removed post procedurally. patient transferred to recovery room in stable condition to be discharged home after meeting criteria Anesthesia: Local Surgeon: Cecily Herrmann Condition: stable
== END 2023-05-08 09:49 | disposition home or self-care (01) ==
LOC: SURGOUT 08:27
PROVIDERS: PCP Internal Medicine; Visit Provider Anesthesiology Pain Medicine
DX: G57.83 Other specified mononeuropathies of bilateral lower limbs (principal)
CPT/HCPCS: 64450; J0665

== ENCOUNTER 2023-05-17 14:00 | Outpatient (OUT) | payer MEDICARE, BC, SELFPAY ==
--- OUTSIDE RECORDS SUMMARY | 2023-05-01 08:07 | XMS_ITS | CCD ---
Author Name Unknown Address [address] [place] [address] Organization [facility] Care Team Providers Care Switching Operator Name Role Phone Zahler, Quinn Unavailable Unavailable Zahler, Quinn Unavailable Unavailable Erliner, Quinn Unavailable Unavailable OVI CROOKS~[id number] UNKNOWN Unavailable Unavailable Zahler, Quinn Unavailable Unavailable Zahler, Quinn Unavailable Unavailable Kala, Quinn Unavailable Unavailable OVI CROOKS~[id number] UNKNOWN Unavailable Unavailable MD Brina Morrissey Attending Provider Brina Morrissey Unavailable Ovi Crooks Unavailable DR OVI CROOKS Primary Care Unavailable CRISTOBAL .MARY Admitting Unavailable CRISTOBAL .MARY Attending Unavailable JESSICA ., DR ELIZABETH Cerna Attending Unavailable JESSICA ., DR ELIZABETH Cerna Consulting Unavailable JESSICA ., DR ELIZABETH Cerna Admitting Unavailable BALL, DR FUNG Primary Care Unavailable HALKER ., DAVID Admitting Unavailable HALKER ., DAVID Attending Unavailable BALL, DR FUNG Primary Care Unavailable BALL, DR FUNG Admitting Unavailable BALL, DR FUNG Attending Unavailable BALL, DR FUNG Consulting Unavailable HANG, DR FUNG Primary Care Unavailable WEST, DR GÓMEZ Mclean Consulting Unavailable HANG, DR FUNG Admitting Unavailable BALL, DR FUNG Primary Care Unavailable BALL, DR FUNG Attending Unavailable BALL, DR FUNG Consulting Unavailable WEST, DR GÓMEZ Mclean Consulting Unavailable HANG, DR FUNG Primary Care Unavailable JESSICA ., DR ELIZABETH Cerna Attending Unavailable JESSICA ., DR ELIZABETH Cerna Consulting Unavailable JESSICA ., DR ELIZABETH Cerna Admitting Unavailable HANG, DR FUNG Primary Care Unavailable JESSICA ., [...] HALKER ., DAVID Attending Unavailable HALKER ., DAVID Consulting Unavailable HALKER ., DAVID Admitting Unavailable [...] Cerna Admitting Unavailable MARY WHEELER Admitting Unavailable DR OVI CROOKS Primary Care Unavailable MARY WHEELER Attending Unavailable HANG, DR FUNG Consulting Unavailable ELVIE, DR WILLIAM [...] (1 source) Midazolam Drug Allergy 10-03-2016 [facility] Repository (1 source) Midazolam; 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: [MIDAZOLAM] Drug Allergy 05-10-2022 [facility] Repository Medications Current Medications Medication Drug Class(es) Dates Sig (Normalized) Sig (Original) acetaminophen 325 mg / HYDROcodone bitartrate 5 mg oral tablet (10 sources) Opioid Agonist Start: 01-19-2023 take 1 tablet by mouth twice daily as needed for pain HYDROcodone-Acetam inophen 5-325 MG 1 tablet Orally bid as needed for pain for 7 days Dec, Active aspirin 81 mg delayed release oral tablet (14 sources) Platelet Aggregation Inhibitor, Nonsteroidal Anti-inflammatory Drug take 1 tablet by mouth every twenty-four hours Aspirin Adult Low Dose 81 MG 1 tablet Orally Once a day Active atorvastatin 40 mg oral tablet (14 sources) HMG-CoA Reductase Inhibitor take 1 tablet by mouth every twenty-four hours Atorvastatin Calcium 40 MG 1 tablet Orally Once a day Active 60 actuat budesonide 0.16 mg/actuat / formoterol fumarate 0.0045 mg/actuat metered dose inhaler (12 sources) Corticosteroid, beta2-Adrenergic Agonist Start: 07-31-2022 take 2 puff(s) by inhalation twice daily Symbicort 160-4.5 MCG/ACT 2 puffs Inhalation Twice a day Jul, Active Start: 07-31-2022 take 2 puff(s) by in halation twice daily Symbicort 160-4.5 MCG/ACT 2 puffs Inhalation Twice a day Jul, Active ciprofloxacin 3 mg/ml ophthalmic solution (5 sources) Quinolone Antimicrobial Start: 07-17-2022 take 2 drop(s) into the eye(s) every four hours Ciprofloxacin HCl 0.3 % 2 drops Ophthalmic every 4 hours while awake for 7 days Jun, Active clopidogrel 75 mg oral tablet (1 source) P2Y12 Platelet Inhibitor Start: 04-17-2023 take 1 tablet by mouth every twenty-four hours Clopidogrel Bisulfate 75 MG 1 tablet Orally Once a day for 30 days Mar, Active CPAP Machine (18 sources) CPAP Machine Act susu escitalopram 10 mg oral tablet (18 sources) Serotonin Reuptake Inhibitor Escitalopram Oxalate 10 MG TAKE 1 TABLET EVERY DAY Active gabapentin 100 mg oral capsule (18 sources) Anti-epileptic Agent Gabapentin 100 MG TA KE 1 CAPSULE AT BEDTIME Active hydroCHLOROthiazide 25 mg oral tablet (16 sources) Thiazide Diuretic hydroCHLOROthi azide 25 MG TAKE 1 TABLET EVERY DAY Active Hydrochlorothiazide-25 mg 25 mg (2 sources) take 1 tablet by mouth once daily Hydrochlorothiazide-25 mg 25 mg 1 tablet Orally Once a day Active 24 hr isosorbide mononitrate 30 mg extended release oral tablet (14 sources) Nitrate Vasodilator take 1 tablet by mouth every twenty-four hours Isosorbide Mononitrate ER 30 MG 1 tablet in the morning Orally Once a day Active losartan potassium 50 mg oral tablet (18 sources) Angiotensin 2 Receptor Gustavo Losartan Potassium 5 0 MG TAKE 1 TABLET EVERY DAY Active 24 hr metoprolol succinate 25 mg extended release oral tablet (14 sources) beta-Adrenergic Gustavo take 1 tablet by mouth every twenty-four hours Metoprolol Succinate ER 25 MG 1 tablet Orally Once a day Active omeprazole 40 mg delayed release oral capsule (14 sources) Proton Pump Inhibitor Start: 2022 take 1 capsule by mouth once daily Omeprazole 40 MG 1 capsule 30 minutes before morning meal Orally Once a day Jun, Active 24 hr oxybutynin chloride 15 mg extended release oral tablet (14 sources) Cholinergic Muscarinic Antagonist oxyBUTYnin Chloride ER [...] other specified organisms] Episodic Acute cerebrovascular disease (8 sources) Cerebral infarction; 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: [Cerebral infarction, unspecified] Chronic Asthma (14 sources) Uncomplicated mild persistent asthma; 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: [Mild persistent asthma, uncomplicated] Onset: 6 Chronic Cardiac dysrhythmias (2 sources) Paroxysmal atrial fibrillation; 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: [Paroxysmal atrial fibrillation] Chronic Coronary atherosclerosis and other heart disease (20 sources) Coronary arteriosclerosis; 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: [Atherosclerotic heart disease of tanana coronary artery without angina pectoris] Onset: 3 Chronic Disorders of lipid metabolism (20 sources) Hyperlipidemia, unspecified; 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: [Hypercholesterolemia] Onset: 3 Chronic Esophageal disorders (20 sources) Gastroesophageal reflux disease; 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: [GERD [Gastroesophageal reflux disease]] Chronic Esophageal disorders (2 sources) Esophageal disorders; 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: [Gastro-esophageal reflux disease with esophagitis, without bleeding] Essential hypertension (20 sources) Essential hypertension; 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: [Essential (primary) hypertension] [...] ovarian failure] Onset: 6 Chronic Mood disorders (18 sources) Recurrent major depression in full remission; [...] current use of drug therapy; 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: [Other parts counterman (current) drug therapy] Episodic Other and ill-defined cerebrovascular disease (1 source) Cerebral atherosclerosis; 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: [Cerebral atherosclerosis] Chronic Other and ill-defined cerebrovascular disease (1 source) Cerebral atherosclerosis Chronic Other circulatory disease (1 source) H/O: cardiovascular [...] Episodic Other diseases of bladder and urethra (14 sources) Overactive bladder; 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: [Overactive bladder] Chronic Other diseases of bladder and urethra (1 source) Overactive bladder Chronic Other ear and sense organ disorders (1 source) Impacted cerumen; 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: [Impacted cerumen, right ear] Episodic Other gastrointestinal disorders (18 sources) Dysphagia; 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: [Dysphagia] Episodic Other injuries and conditions due to external causes (1 source) History of fall; 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: [History of falling] Episodic Other lower respiratory disease (19 sources) Cough; 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: [Cough] Episodic Other lower respiratory disease (13 sources) Multiple nodules of lung; 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: [Other nonspecific abnormal finding of lung field] Episodic Other lower respiratory disease (14 sources) Nodule of lung; 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: [Solitary pulmonary [...] of dyspnea] Episodic Other nervous system disorders (18 sources) Carpal tunnel syndrome of right wrist; 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: [Carpal tunnel syndrome, right upper limb] Chronic Other nervous system disorders (18 sources) Carpal tunnel syndrome of left wrist; [...] [Acute pericarditis, unspecified] Episodic Pulmonary heart disease (14 sources) Secondary pulmonary hypertension; 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: [Other secondary pulmonary hypertension] Chronic Residual codes; unclassified (15 sources) Obstructive sleep apnea syndrome; 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: [Obstructive [...] 08-05-2015 Episodic Other aftercare (1 source) Other correction (current) drug therapy; 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: [OTH HALF-WAY CURRENT DRUG THERAPY] Onset: 09-20-2021 Episodic Other [...] Results Test Name Value Interpretation Reference Range Facility Office Visiton 01-05-2023 Follow-up visit [id number] Giovanna Richardson 1940 F Date Provider Department Center 01/05/2023 NIK RICHARDS [facility] Family History Problem Relation Age of Onset No Known Problems Mother No Known Problems Father Family Status - Relation Status Age at Mother Father Level of Service:86060 NM OFFICE/OUTPATIENT ESTABLISHED LOW MDM 20-29 MIN Normal [facility] FUNGAL AB QUANTITAIVE DOUBLE IMMUNODIFFUon 07-30-2022 Aspergillus flavus Negative Normal Neg:<1:1 [facility] Comment on above: Performed By: #### F UNGUYI #### [facility] [address] [address] [address] Milena Rosa Aspergillus fumigatus Negative Normal Neg:<1:1 [facility] Comment on above: Performed By: #### F UNGUYI #### [facility] [address] [address] [address] Milena Rosa Aspergillus niger Negative Normal Neg:<1:1 [facility] Comment on above: Performed By: #### F UNGUYI #### [facility] [address] [address] [address] Milena Rosa Blastomyces Negative Normal Neg:<1:1 [facility] Comment on above: Performed By: #### F UNGUYI #### [facility] [address] [place] [address] Dr. Milena Rosa HISTOPLASMA GALACTOMANNAN AG URINEon 07-30-2022 Histoplasma Gal'rosales Ag <0.5 Normal <0.5 ng/mL [facility] Comment on above: Performed By: #### H ISTGAL ####[facility] [address] [address]Dr. Milena Rosa COCCIDIODES IGG/IGM AB BY IF Aon 07-29-2022 Coccidiodes Ab, IgG EIA 0.1 EIA Units Normal [facility] Comment on above: Result Comment: Nega tive <1.0 Indeterminate 1.0-1.4 Positive >1.4 Performed By: #### C OCCABS #### [facility] [address] [place] [address] Dr. Milena Rosa Coccidiodes Ab, IgM, EIA 0.0 EIA Units Normal [facility] Comment on above: Result Comment: Nega tive <1.0 Indeterminate 1.0-1.4 Positive >1.4 Performed By: #### C OCCABS #### [facility] [address] [place] [address] Dr. Milena Rosa HISTOPLASMA CAP AB QUANT DID on 07-29-2022 Histoplasma Mycelial CF Ab. Negative Normal Neg:<1:2 [facility] Comment on above: Performed By: #### H ISTDID ####[facility] [address] [place], [place] [address]Dr. Milena Rosa Histoplasma Yeast CF Ab Negative Normal Neg:<1:2 [facility] Comment on above: Performed By: #### H ISTDID ####[facility] [address] [address]Dr. Milena Rosa Office Visiton 07-26-2022 Follow-up visit [id number] Giovanna Richardson 1940 F Date Provider Department Center 07/26/2022 NIK RICHARDS [facility] Family History Problem Relation Age of Onset No Known Problems Mother No Known Problems Father Family Status - Relation Status Age at Mother Father Level of Service:88133 NM OFFICE/OUTPATIENT ESTABLISHED MOD MDM 30-39 MIN Reason for Visit and Comments: Follow-up [870277] - 6 weeks- Go over Holter monitor results- Discuss medications Normal [facility] CT CHEST WO CONon 07-19-2022 CT CHEST [...] by: WILLIAM BERMEO Date: 2022-07-19 14:55 Normal [facility] Office Visiton 06-07-2022 Follow-up visit [id number] Giovanna Richardson 1940 F Date Provider Department Center 06/07/2022 [id number] [facility] Family History Problem Relation Age of Onset No Known Problems Mother No Known Problems Father Family Status - Relation Status Age at Mother Father Level of Service:24033 NM OFFICE/OUTPATIENT ESTABLISHED MOD MDM 30-39 MIN Reason for Visit and Comments: Post-Cath [731] Normal [facility] HPon 05-17-2022 - Attestation signed by Nik Gr MD at [...] conscious sedation, risk and benefits discussed. Susan. vamp wetter [facility] CBC AUTO DIFFon 05-15-2022 BASO # 0.0 103/ul Normal 0.0-0.1 [facility] Comment on above: Performed By: #### C BC #### [facility] [address] [address] [address] Milena Rosa Basophils/100 WBC (Bld) 0.3 % Normal 0.2-2.0 [facility] Comment on above: Performed By: #### C BC #### [facility] [address] [address] [address] Milena Rosa EO # 0.2 103/ul Normal 0.0-0.7 [facility] Comment on above: Performed By: #### C BC #### [facility] [address] [address] [address] Milena Rosa Eosinophils/100 WBC (Bld) 2.8 % Normal 0.9-7.0 [facility] Comment on above: Performed By: #### C BC #### [facility] [address] [address] [address] Milena Rosa Erythrocyte distribution width (RBC) [Ratio] 13.3 % Normal 11.0-15.0 [facility] Comment on above: Performed By: #### C BC #### [facility] [address] [address] [address] Milena Rosa Hematocrit (Bld) [Volume fraction] 38.5 % Normal 36.0-48.0 [facility] Comment on above: Performed By: #### C BC #### [facility] [address] [address] [address] Milena Rosa Hemoglobin (Bld) [Mass/Vol] 12.6 g/dL Normal 12.0-16.0 [facility] Comment on above: Performed By: #### C BC #### [facility] [address] [place] [address] Dr. Milena Rosa IG # 0.02 10e3/ul Normal 0.00-0.03 [facility] Comment on above: Performed By: #### C BC #### [facility] [address] [place] [address] Dr. Milena Rosa IG % 0.3 % Normal 0.0-0.5 [facility] Comment on above: Performed By: #### C BC #### [facility] [address] [place] [address] Dr. Milena Rosa LYMPH # 2.5 103/ul Normal 1.2-3.8 [facility] Comment on above: Performed By: #### C BC #### [facility] [address] [place] [address] Dr. Milena Rosa Lymphocytes/100 WBC (Bld) 37.6 % Normal 20.5-60.0 [facility] Comment on above: Performed By: #### C BC #### [facility] [address] [place] [address] Dr. Milena Rosa MANUAL DIFF REQ NO Normal [facility] Comment on above: Performed By: #### C BC #### [facility] [address] [place] [address] Dr. Milena Rosa MCH (RBC) [Entitic mass] 29.8 pg Normal 26.7-34.0 [facility] Comment on above: Performed By: #### C BC #### [facility] [address] [place] [address] Dr. Milena Rosa MCHC (RBC) [Mass/Vol] 32.7 g/dL Normal 29.9-35.2 [facility] Comment on above: Performed By: #### C BC #### [facility] [address] [place] [address] Dr. Milena Rosa MCV (RBC) [Entitic vol] 91.0 fL Normal 81.0-99.0 [facility] Comment on above: Performed By: #### C BC #### [facility] [address] [place] [address] Dr. Milena Rosa MONO # 0.7 103/ul Normal 0.3-0.8 [facility] Comment on above: Performed By: #### C BC #### [facility] [address] [place] [address] Dr. Milena Rosa Monocytes/100 WBC (Bld) 10.0 % Normal 1.7-12.0 [facility] Comment on above: Performed By: #### C BC #### [facility] [address] [place] [address] Dr. Milena Rosa NEUT # 3.3 103/ul Normal 1.4-6.5 [facility] Comment on above: Performed By: #### C BC #### [facility] [address] [place] [address] Dr. Milena Rosa Neutrophils/100 WBC (Bld) 49.0 % Normal 43.0-75.0 [facility] Comment on above: Performed By: #### C BC #### [facility] [address] [place] [address] Dr. Milena Rosa Platelet mean volume (Bld) [Entitic vol] 11.5 fL Normal 9.5-13.5 [facility] Comment on above: Performed By: #### C BC #### [facility] [address] [place] [address] Dr. Milena Rosa PLT 201 103/ul Normal 150-450 [facility] Comment on above: Performed By: #### C BC #### [facility] [address] [place] [address] Dr. Milena Rosa RBC 4.23 106/ul Normal 4.20-5.40 [facility] Comment on above: Performed By: #### C BC #### [facility] [address] [place] [address] Dr. Milena Rosa WBC 6.7 103/ul Normal 4.0-11.0 [facility] Comment on above: Performed By: #### C BC #### [facility] [address] [address] [address] Milena Rosa Covid-19 PCR (CVDTB)on 04-30 SARS-CoV-2 (COVID-19) RNA RADHA+probe Ql (Unsp spec) Not detected Normal NOT DETECTED [facility] Comment on above: Result Comment: This test is not yet approved or cleared by the [place] FDA. When there are no FDA-approved or cleared tests available, and other criteria are met, FDA can make tests available under an emergency access mechanism called an Emergency Use Authorization (EUA). The EUA for this test is supported by the [place] of Health and Human Service's (HHS's) declaration [...] consistent with SARS-CoV-2. Performed By: #### C VDTB ####[facility] [address] [address]Dr. Milena Rosa PROF CHEM 8 (BAS METB)on Anion gap [Moles/Vol] 13.1 mmol/L Normal [facility] Comment on above: Performed By: #### B MP #### [facility] [address] [place] [address] Dr. Milena Rosa Calcium [Mass/Vol] 9.8 mg/dL Normal 8.5-10.1 [facility] Comment on above: Performed By: #### B MP #### [facility] [address] [place] [address] Dr. Milena Rosa Chloride [Moles/Vol] 103 mmol/L Normal 98-107 [facility] Comment on above: Performed By: #### B MP #### [facility] [address] [place] [address] Dr. Milena Rosa CO2 [Moles/Vol] 26.7 mmol/L Normal 21.0-32.0 [facility] Comment on above: Performed By: #### B MP #### [facility] [address] [address] [address] Milena Rosa Creatinine [Mass/Vol] 0.95 mg/dL Normal 0.55-1.02 [facility] Comment on above: Performed By: #### B MP #### [facility] [address] [address] [address] Milena Rosa EGFR-AF FINNISH >60 Normal >=60 [facility] Comment on above: Performed By: #### B MP #### [facility] [address] [address] [address] Milena Rosa EGFR-NON AF FINNISH 57 mL/min/1.73m2 Critically low >=60 [facility] Comment on above: Performed By: #### B MP #### [facility] [address] [address] [address] Milena Rosa Glucose [Mass/Vol] 93 mg/dL Normal 74-106 [facility] Comment on above: Performed By: #### B MP #### [facility] [address] [address] [address] Milena Rosa Potassium [Moles/Vol] 3.8 mmol/L Normal 3.5-5.1 [facility] Comment on above: Performed By: #### B MP #### [facility] [address] [address] [address] Milena Rosa Sodium [Moles/Vol] 139 mmol/L Normal 136-145 [facility] Comment on above: Performed By: #### B MP #### [facility] [address] [address] [address] Milena Rosa Urea nitrogen [Mass/Vol] 18.0 mg/dL Normal 7.0-18.0 [facility] Comment on above: Performed By: #### B MP #### [facility] [address] [address] [address] Milena Rosa Urea nitrogen/Creatinine [Mass ratio] 18.9 mg/mg Normal [facility] Comment on above: Performed By: #### B #### [facility] [address] [address] [address] Milena Rosa Office Visiton 05-10-2022 Follow-up visit [id number] Giovanna Richardson 1940 F Date Provider Department Center 05/10/2022 [id number] SORIASimran [facility] Family History Problem Relation Age of Onset No Known Problems Mother No Known Problems Father Family Status - Relation Status Age at Mother Father Level of Service:30258 NM OFFICE/OUTPATIENT NEW MODERATE MDM 45-59 MINUTES Reason for Visit and Comments: Cardiac Stress Test [489] Normal [facility] NM STRESS/REST MULTIon 04-28 NM STRESS/REST MULTI Patient: GIOVANNA RICHARDSON Exam Date: 04/28/2022 : 1940 Gender:F Ordering : DR OVI CROOKS DNinfa Admission #: [id number] Family : Order #: [id number] CLICK HERE TO VIEW EXAM RADIOLOGY REPORT [...] MD on 04/28/2022 at 14:26 Normal [facility] CBC AUTO DIFFon 02-27-2022 BASO # 0.0 103/ul Normal 0.0-0.1 [facility] Comment on above: Performed By: #### C BC ####[facility] [address] [address]Dr. Milena Rosa Basophils/100 WBC (Bld) 0.5 % Normal 0.2-2.0 [facility] Comment on above: Performed By: #### C BC ####[facility] [address] [place], [place] [address]Dr. Milena Rosa EO # 0.1 103/ul Normal 0.0-0.7 [facility] Comment on above: Performed By: #### C BC ####[facility] [address] [place], [place] [id number]. Milena Rosa Eosinophils/100 WBC (Bld) 1.9 % Normal 0.9-7.0 [facility] Comment on above: Performed By: #### C BC ####[facility] [address] [place], [place] [address]Dr. Milena Rosa Erythrocyte distribution width (RBC) [Ratio] 14.3 % Normal 11.0-15.0 [facility] Comment on above: Performed By: #### C BC ####[facility] [address] [place], [place] [address]Dr. Milnea Rosa Hematocrit (Bld) [Volume fraction] 37.6 % Normal 36.0-48.0 [facility] Comment on above: Performed By: #### C BC ####[facility] [address] [place], [place] [address]Dr. Milena Rosa Hemoglobin (Bld) [Mass/Vol] 12.6 g/dL Normal 12.0-16.0 [facility] Comment on above: Performed By: #### C BC ####[facility] [address] [address]Dr. Milena Rosa IG # 0.02 10e3/ul Normal 0.00-0.03 [facility] Comment on above: Performed By: #### C BC ####[facility] [address] [address]Dr. Milena Rosa IG % 0.3 % Normal 0.0-0.5 [facility] Comment on above: Performed By: #### C BC ####[facility] [address] [address]Dr. Milena Rosa LYMPH # 2.1 103/ul Normal 1.2-3.8 [facility] Comment on above: Performed By: #### C BC ####[facility] [id number] [place] [address]DrElia Rosa Lymphocytes/100 WBC (Bld) 33.2 % Normal 20.5-60.0 [facility] Comment on above: Performed By: #### C BC ####[facility] [address]ckbvrwdcv8306 [place] [address]DrElia Rosa MANUAL DIFF REQ NO Normal [facility] Comment on above: Performed By: #### C BC ####[facility] [address]tkq[address]fwumi[address] [place] [address]Dr. Milena Rosa MCH (RBC) [Entitic mass] 30.9 pg Normal 26.7-34.0 [facility] Comment on above: Performed By: #### C BC ####[facility] [address] [place] [address]Dr. Milena Rosa MCHC (RBC) [Mass/Vol] 33.5 g/dL Normal 29.9-35.2 [facility] Comment on above: Performed By: #### C BC ####[facility] Mozqzndowy[address] [place] [address]Dr. Milena Rosa MCV (RBC) [Entitic vol] 92.2 fL Normal 81.0-99.0 [facility] Comment on above: Performed By: #### C BC ####[facility] [address] [place] [id number]. Milena Rosa MONO # 0.6 103/ul Normal 0.3-0.8 [facility] Comment on above: Performed By: #### C BC ####[facility] Mzyfzcwfqy82[address] [place] [id number]. Milena Rsoa Monocytes/100 WBC (Bld) 8.9 % Normal 1.7-12.0 [facility] Comment on above: Performed By: #### C BC ####[facility] [address]zoxsht[address] [place] [id number]. Milena Rosa NEUT # 3.5 103/ul Normal 1.4-6.5 [facility] Comment on above: Performed By: #### C BC ####[facility] Ytjlug[address]ij32[address] [place] [address]Dr. Milena Rosa Neutrophils/100 WBC (Bld) 55.2 % Normal 43.0-75.0 [facility] Comment on above: Performed By: #### C BC ####[facility] Snqvommqxr7[address] [place] [id number]. Milena Rosa Platelet mean volume (Bld) [Entitic vol] 11.6 fL Normal 9.5-13.5 [facility] Comment on above: Performed By: #### C BC ####[facility] [address]blktkvz34[address] [place] [id number]. Milena Rosa PLT 217 103/ul Normal 150-450 [facility] Comment on above: Performed By: #### C BC ####[facility] Dwxgbqlhaz8354 [place] [id number]. Milena Rosa RBC 4.08 106/ul Critically low 4.20-5.40 [facility] Comment on above: Performed By: #### C BC ####[facility] Cgnvpzljmj3[address] [place] [id number]. Milena Rosa WBC 6.3 103/ul Normal 4.0-11.0 [facility] Comment on above: Performed By: #### C BC ####[facility] Qkmhpmenpj9856 [place], [place] [address]Wu. Milena Rosa ECHOCARDIO M/2D COMPLETEon 1 ECHOCARDIO M/2D COMPLETE Patient: GIOVANNA RICHARDSON Exam Date: 02/27/2022 : 1940 Gender:F Ordering : DR OVI CROOKS DEliaOElia Admission #: [id number] Family : Order #: [id number] CLICK HERE TO VIEW EXAM ECHOCARDIOGRAM REPORT [...] Christie M.D. on 03/01/2022 at 11:53 Normal [facility] PROF CHEM 8 (BAS METB)on Anion gap [Moles/Vol] 6.1 mmol/L Normal [facility] Comment on above: Performed By: #### B TERESA TSH #### [facility] [address] [place] [address] Dr. Milena Rosa Calcium [Mass/Vol] 9.0 mg/dL Normal 8.5-10.1 [facility] Comment on above: Performed By: #### B TERESA, TSH #### [facility] [address] [place] [address] [address] Milena Rosa Chloride [Moles/Vol] 103 mmol/L Normal 98-107 [facility] Comment on above: Performed By: #### B MP, TSH #### [facility] [address] [place] [address] [address] Milena Rosa CO2 [Moles/Vol] 34.4 mmol/L Critically high 21.0-32.0 [facility] Comment on above: Performed By: #### B MP, TSH #### [facility] [address] [place] [address] [address] Milena Rosa Creatinine [Mass/Vol] 1.21 mg/dL Critically high 0.55-1.02 [facility] Comment on above: Performed By: #### B MP, TSH #### [facility] [address] [place] [address] Dr. Milena Rosa EGFR-AF FINNISH 52 mL/min/1.73m2 Critically low >=60 [facility] Comment on above: Performed By: #### B MP, TSH #### [facility] [address] [place] [address] Dr. Milena Rosa EGFR-NON AF FINNISH 43 mL/min/1.73m2 Critically low >=60 [facility] Comment on above: Performed By: #### B MP, TSH #### [facility] [address] [place] [address] Dr. Milena Rosa Glucose [Mass/Vol] 101 mg/dL Normal 74-106 [facility] Comment on above: Performed By: #### B MP, TSH #### [facility] [address] [place] [address] Dr. Milena Rosa Potassium [Moles/Vol] 3.5 mmol/L Normal 3.5-5.1 [facility] Comment on above: Performed By: #### B MP, TSH #### [facility] [address] [place] [address] Dr. Milena Rosa Sodium [Moles/Vol] 140 mmol/L Normal 136-145 [facility] Comment on above: Performed By: #### B MP, TSH #### [facility] [address] [place] [address] [address] Milena Rosa Urea nitrogen [Mass/Vol] 20.0 mg/dL Critically high 7.0-18.0 [facility] Comment on above: Performed By: #### B MP, TSH #### [facility] [address] [place] [address] [address] Milena Rosa Urea nitrogen/Creatinine [Mass ratio] 16.5 mg/mg Normal [facility] Comment on above: Performed By: #### B MP, TSH #### [facility] [address] [place] [address] [address] Milena Rosa TSHon 02-27-2022 TSH 1.640 uIU/mL Normal 0.358-3.740 [facility] Comment on above: Performed By: #### B MP, TSH #### [facility] [address] [place] [address] [address] Milena Rosa XR CHEST 2 Von [...] by: WHITNEY FOURNIER Date: 2022-02-27 13:49 Normal [facility] MRI LSPINE WO CONon 01-10-20 MRI LSPINE WO CON EXAMINATION: MRI LSPINE WO CON HISTORY: Lumbar spondylosis ; chronic [...] by: WILLIAM BERMEO Date: 2022-01-09 16:20 Normal [facility] XR hand BI 3Von 12-21-2021 XR hand BI 3V [facility] [place] [address] [place] [address] XRay Report Signed Patient: Giovanna Richardson MR#: [id number] : 1940 Acct:[id number] Age/Sex: 81 / F ADM Date: 12/21/21 Loc: [facility] Room: Type: [facility] Attending Dr: Brina Morrissey MD Copies to: [...] hand. Impression dictated by: Erasmo Caal Jr., D.O.12/21/2021 2:31 PM Dictation Location: [place] [address] Transcribed By: [facility] 12/21/21 1431 Dictated By: Erasmo Caal Jr, DO 12/21/21 1427 Signed By: 12/21/21 [address] [facility] CBC AUTO DIFFon 09-14-2021 BASO # 0.0 103/ul Normal 0.0-0.1 [facility] Comment on above: Performed By: #### C BC #### [facility] [address] [place] [address] [address] Milena Rosa Basophils/100 WBC (Bld) 0.2 % Normal 0.2-2.0 [facility] Comment on above: Performed By: #### C BC #### [facility] [address] [place] [address] [address] Milena Rosa EO # 0.1 103/ul Normal 0.0-0.7 [facility] Comment on above: Performed By: #### C BC #### [facility] [address] [place] [address] [address] Milena Rosa Eosinophils/100 WBC (Bld) 2.8 % Normal 0.9-7.0 [facility] Comment on above: Performed By: #### C BC #### [facility] [address] [place] [address] Dr. Milena Rosa Erythrocyte distribution width (RBC) [Ratio] 13.4 % Normal 11.0-15.0 [facility] Comment on above: Performed By: #### C BC #### [facility] [address] [place] [address] Dr. Milena Rosa Hematocrit (Bld) [Volume fraction] 38.2 % Normal 36.0-48.0 [facility] Comment on above: Performed By: #### C BC #### [facility] [address] [place] [address] Dr. Milena Rosa Hemoglobin (Bld) [Mass/Vol] 12.5 g/dL Normal 12.0-16.0 [facility] Comment on above: Performed By: #### C BC #### [facility] [address] [place] [address] Dr. Milena Rosa IG # 0.02 10e3/ul Normal 0.00-0.03 [facility] Comment on above: Performed By: #### C BC #### [facility] [address] [place] [address] Dr. Milena Rosa IG % 0.4 % Normal 0.0-0.5 [facility] Comment on above: Performed By: #### C BC #### [facility] [address] [place] [address] Dr. Milena Rosa LYMPH # 2.1 103/ul Normal 1.2-3.8 [facility] Comment on above: Performed By: #### C BC #### [facility] [address] [place] [address] Dr. Milena Rosa Lymphocytes/100 WBC (Bld) 40.5 % Normal 20.5-60.0 [facility] Comment on above: Performed By: #### C BC #### [facility] [address] [place] [address] Dr. Milena Rosa MANUAL DIFF REQ NO Normal [facility] Comment on above: Performed By: #### C BC #### [facility] [address] [place] [address] [address] Milena Rosa MCH (RBC) [Entitic mass] 29.7 pg Normal 26.7-34.0 [facility] Comment on above: Performed By: #### C BC #### [facility] [address] [place] [address] Dr. Milena Rosa MCHC (RBC) [Mass/Vol] 32.7 g/dL Normal 29.9-35.2 [facility] Comment on above: Performed By: #### C BC #### [facility] [address] [place] [address] Dr. Milena Rosa MCV (RBC) [Entitic vol] 90.7 fL Normal 81.0-99.0 [facility] Comment on above: Performed By: #### C BC #### [facility] [address] [place] [address] Dr. Milena Rosa MONO # 0.6 103/ul Normal 0.3-0.8 [facility] Comment on above: Performed By: #### C BC #### [facility] [address] [place] [address] Dr. Milena Rosa Monocytes/100 WBC (Bld) 12.0 % Normal 1.7-12.0 [facility] Comment on above: Performed By: #### C BC #### [facility] [address] [place] [address] Dr. Milena Rosa NEUT # 2.3 103/ul Normal 1.4-6.5 [facility] Comment on above: Performed By: #### C BC #### [facility] [address] [place] [address] Dr. Milena Rosa Neutrophils/100 WBC (Bld) 44.1 % Normal 43.0-75.0 [facility] Comment on above: Performed By: #### C BC #### [facility] [address] [place] [address] Dr. Milena Rosa Platelet mean volume (Bld) [Entitic vol] 11.7 fL Normal 9.5-13.5 [facility] Comment on above: Performed By: #### C BC #### [facility] [address] [place] [address] [address] Milena Rosa PLT 206 103/ul Normal 150-450 [facility] Comment on above: Performed By: #### C BC #### [facility] [address] [place] [address] [address] Milena Rosa RBC 4.21 106/ul Normal 4.20-5.40 [facility] Comment on above: Performed By: #### C BC #### [facility] [address] [place] [address] [address] Milena Rosa WBC 5.1 103/ul Normal 4.0-11.0 [facility] Comment on above: Performed By: #### C BC #### [facility] [address] [place] [address] [address] Milena Rosa MG MAMM SCREEN 3D SHERICE CADon 09-14-2021 MG MAMM SCREEN 3D SHERICE CAD Patient: GIOVANNA RICHARDSON Exam Date: 09/14/2021 : 1940 Gender:F Ordering : DR OVI CROOKS D.O. Admission #: [id number] Family : Order #: [id number] CLICK HERE TO VIEW EXAM RADIOLOGY REPORT PROCEDURE: MAMMOGRAM SCREENING 3D BILATERAL CAD COMPARISON: MG MAMM SCREEN SHERICE W CAD, 03/29/2018. MG MAMM SCREEN SHERICE W CAD, 07/05/2020. INDICATIONS: Screening mammography Calculator Name NCI Breast Cancer Risk Assessment Tool 5 Year Breast Cancer Risk 1.50% Lifetime Breast Cancer Risk 2.80% Personal Breast Cancer No Personal Ovarian Cancer No Treatments None Family Cancers None LOCATION: [facility] BREAST COMPOSITION: Scattered areas fibroglandular density. FINDINGS: [...] Ziegler MD on 09/14/2021 at 10:42 Normal [facility] PROF CHEM 8 (BAS METB)on Anion gap [Moles/Vol] 10.5 mmol/L Normal [facility] Comment on above: Performed By: #### B MP #### [facility] [address] [place] [address] Dr. Milena Rosa Calcium [Mass/Vol] 9.5 mg/dL Normal 8.5-10.1 [facility] Comment on above: Performed By: #### B MP #### [facility] [address] [place] [address] [address] Milena Rosa Chloride [Moles/Vol] 101 mmol/L Normal 98-107 [facility] Comment on above: Performed By: #### B MP #### [facility] [address] [place] [address] Dr. Milena Rosa CO2 [Moles/Vol] 31.1 mmol/L Normal 21.0-32.0 [facility] Comment on above: Performed By: #### B MP #### [facility] [address] [place] [address] Dr. Milena Rosa Creatinine [Mass/Vol] 1.01 mg/dL Normal 0.55-1.02 [facility] Comment on above: Performed By: #### B MP #### [facility] [address] [place] [address] Dr. Milena Rosa EGFR-AF FINNISH >60 Normal >=60 [facility] Comment on above: Performed By: #### B MP #### [facility] [address] [address] [address] Milena Rosa EGFR-NON AF FINNISH 53 mL/min/1.73m2 Critically low >=60 [facility] Comment on above: Performed By: #### B MP #### [facility] [address] [place] [address] [address] Milena Rosa Glucose [Mass/Vol] 96 mg/dL Normal 74-106 [facility] Comment on above: Performed By: #### B MP #### [facility] [address] [place] [address] Dr. Milena Rosa Potassium [Moles/Vol] 3.6 mmol/L Normal 3.5-5.1 [facility] Comment on above: Performed By: #### B MP #### [facility] [address] [place] [address] [address] Milena Rosa Sodium [Moles/Vol] 139 mmol/L Normal 136-145 [facility] Comment on above: Performed By: #### B MP #### [facility] [address] [place] [address] [address] Milena Rosa Urea nitrogen [Mass/Vol] 20.0 mg/dL Critically high 7.0-18.0 [facility] Comment on above: Performed By: #### B MP #### [facility] [address] [place] [address] [address] Milena Rosa Urea nitrogen/Creatinine [Mass ratio] 19.8 mg/mg Normal [facility] Comment on above: Performed By: #### B MP #### [facility] [address] [address] [address] Milena Rosa Coding Summary.on 12-26-2017 Coding Summary. 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 Coding Summary.on 12-19-2017 Coding Summary. CODING DATE: 12/19/2017 FINAL [facility] STATUS: Home (Routine DC) PAYOR: Medicare APC DESCRIPTION 5481 [facility] Procedures ADMIT DX: REASON FOR VISIT DX: H26.40 Unspecified secondary cataract FINAL DX: PRINCIPAL: H26.40 Unspecified secondary cataract SECONDARY: PYMT PROC APC STAT DESCRIPTION DOCTOR NAME DATE 74449 5481 T Discission of secondary Quinn Armendariz [...] Shilpa Perez Date Saved: 12/19/2017 09:21 am Normal [facility] Vital Signs Date Time Vital Sign Value Performing Clinician Facility 02-20-2023 16:00-0400 Body height [facility] Other [facility] Other 02-20-2023 16:00-0400 Body mass index (BMI) [Ratio] 30.44 kg/m2 [facility] Other [facility] Other 02-20-2023 16:00-0400 Body weight 69.54 kg Ovi Sybari Other [facility] Other 02-20-2023 16:00-0400 Diastolic blood pressure 78 mm[Hg] Ovi Sybari Other [facility] Other 02-20-2023 16:00-0400 Respiratory rate 12 /min Ovi Sybari Other [facility] Other 02-20-2023 16:00-0400 Systolic blood pressure 144 mm[Hg] Ovi Sybari Other [facility] Other 07-17-2022 16:30-0400 Body height Ovi Ball Other [facility] Other 07-17-2022 16:30-0400 Body mass index (BMI) [Ratio] 31.33 kg/m2 Ovi Ball Other [facility] Other 07-17-2022 16:30-0400 Body weight 71.58 kg Ovi Ball Other [facility] Other 07-17-2022 16:30-0400 Diastolic blood pressure 75 mm[Hg] Ovi Ball Other [facility] Other 07-17-2022 16:30-0400 Respiratory rate 12 /min Ovi Ball Other [facility] Other 07-17-2022 16:30-0400 Systolic blood pressure 122 mm[Hg] Ovi Ball Other [facility] Other 12-21-2021 11:00-0400 Body height Brina Morrissey Other [facility] Other Encounters Encounter Date Encounter Type Care Provider Facility Start: 04-17-2023 End: 04-17-2023 ambulatory Ovi Ball Other [facility] Other Start: 04-17-2023 Telephone encounter Ovi Ball [facility] Start: 03-13-2023 End: 03-13-2023 ambulatory Ovi Ball Other [facility] Other Start: 03-13-2023 Telephone encounter Ovi Ball [facility] Start: 03-07-2023 End: 03-07-2023 ambulatory Ovi Ball Other [facility] Other Start: 03-07-2023 Telephone encounter Ovi Ball [facility] Start: 03-01-2023 End: 03-01-2023 ambulatory Ovi Crooks Other [facility] Other Start: 03-01-2023 Telephone encounter Ovi Crooks [facility] Start: 02-28-2023 End: 02-28-2023 ambulatory Ovi Crooks Other [facility] Other Start: 02-28-2023 Telephone encounter Ovi Crooks [facility] Start: 02-22-2023 End: 02-22-2023 ambulatory Ovi Crooks Other [facility] Other Start: 02-22-2023 Telephone encounter Ovi Crooks [facility] Start: 02-21-2023 End: 02-21-2023 ambulatory Ovi Crooks Other [facility] Other Start: 02-21-2023 Telephone encounter Ovi Crooks [facility] Start: 02-20-2023 End: 02-20-2023 ambulatory Ovi Crooks Other [facility] Other Start: 02-20-2023 Office outpatient vi sit 25 minutes Ovi Crooks [facility] Start: 01-23-2023 End: 01-23-2023 ambulatory Ovi Crooks Other [facility] Other Start: 01-23-2023 Telephone encounter Ovi Crooks [facility] Start: 01-16-2023 End: 01-16-2023 ambulatory Brina Morrissey Other [facility] Other Start: 01-16-2023 Office outpatient vi sit 15 minutes Brina Morrissey [facility] Start: 01-05-2023 End: 01-05-2023 [facility] Start: 11-23-2022 ambulatory DAVID KAPOOR . Facili ty:H1 Start: 09-01-2022 End: 09-02-2022 ambulatory DAVID KAPOOR . Facility:[facility] Start: 07-31-2022 End: 07-31-2022 ambulatory Brina Morrissey Other [facility] Other Start: 07-31-2022 Telephone encounter Brina Wright [facility] Start: 07-26-2022 End: 07-27-[address] OVI CROOKS Facility:[facility]1 Start: 07-26-2022 End: 07-26-2022 ambulatory [facility] Start: 07-25-2022 End: 07-25-2022 ambulatory NARJESENIAATH LAKSHMIPATHY . Facility:[facility]1 Start: 07-20-2022 End: 07-21-2022 ambulatory NARCLARERANATH LAKSHMIPATHY . Facility:[facility]1 Start: 07-19-2022 End: 07-20-[address] OVI CROOKS [facility] Other Start: 07-19-2022 Telephone encounter Ovi IBARRA [facility] Start: 07-17-2022 End: 07-17-2022 ambulatory Ovi Crooks Other [facility] Other Start: 07-17-2022 Patient encounter procedure Ovi Crooks [facility] Start: 06-20-2022 End: 06-20-[address] ELIZABETH JESSICA . Facility:[facility]1 Start: 06-07-2022 Telephone encounter Brina Wright [facility] Start: 06-07-2022 End: 06-07-2022 ambulatory [facility] Other Start: 05-20-2022 Encounter for preprocedural laboratory examination [facility] Start: 05-17-2022 End: 05-17-2022 ambulatory [facility] Start: 05-15-2022 End: 05-16-2022 ambulatory [facility] Facility:[facility]1 Start: 05-15-2022 End: 05-16-2022 Encounter for preprocedural laboratory examination [facility] Facility:[facility]1 Start: 05-10-2022 End: 05-10-2022 ambulatory [facility] Start: 05-09-[address] ELIZABETH JESSICA . Faci lity:H1 Start: 04-28-2022 End: 04-29-[address] OVI CROOKS Facility:[facility]1 Start: 04-13-[address] OVI CROOKS Facilgarcía ty:H1 Start: 03-14-[address] OVI Flores ty:[facility]1 Start: 03-10-[address] OVI Flores ty:[facility]1 Start: 03-07-[address] ELIZABETH JESSICA . Faci lity:H1 Start: 03-03-[address] OVI Flores ty:H1 Start: 02-27-2022 End: 02-28-[address] OVI CROOKS Facility:H1 Start: 02-23-2022 End: 02-24-2022 ambulatory MARY CRISTOBAL . Facility:[facility]1 Start: 02-07-2022 End: 02-07-[address] ELIZABETH JESSICA . Facility:[facility]1 Start: 01-18-2022 End: 01-18-2022 ambulatory Brina Morrissey Other [facility] Other Start: 01-18-2022 Office outpatient vi sit 15 minutes Brina Morrissey [facility] Start: 01-09-2022 End: 01-10-2022 ambulatory MARY CRISTOBAL . Facility:[facility]1 Start: 12-29-2021 End: 12-30-2021 ambulatory MARY CRISTOBAL . Facility:[facility]1 Start: 12-21-2021 End: 12-21-2021 ambulatory Brina Morrissey Other [facility] Other Start: 12-21-2021 Office outpatient ne w 30 minutes Brina Morrissey [facility] Start: 12-21-2021 End: 12-21-2021 Patient encounter procedure MD Brina Morrissey Work Phone: [facility] Start: 12-13-2021 End: 12-13-[address] ELIZABETH JESSICA . Facility:[facility]1 Start: 12-01-2021 End: 12-02-2021 ambulatory MARY CRISTOBAL . Facility:[facility]1 Start: 09-14-2021 End: 09-15-[address] OVI CROOKS Facility: Start: 08-17-2021 Adult health examination Brina Morrissey Other [facility] Other Start: 12-25-2017 End: 12-25-2017 Patient encounter Quinn Armendariz Facility:[facility] Start: 12-18-2017 End: 12-18-2017 Patient encounter Quinn Armendariz Facility:[facility] Procedures Date Procedure Procedure Detail Performing Clinician Start: 07-26-2022 Follow-up visit Follow-up NIK GR Start: 12-21-2021 Plain X-ray of castillo Morrissey Work Phone: Start: 03-26-2018 Screening for osteoporosis Brina Morrissey Other Start: 08-05-2015 Screening for malign ant neoplasm of colon Brina Morrissey Other Start: 08-05-2015 Screening mammography C oleliz Morrissey Other Cough 786.2 Brina Morrissey Depression screening Brina Ghanshyam Other Screening for malign ant neoplasm of breast Brina Ghanshyam Other Immunizations Immunization Date Immunization Notes Care Provider Fa [facility] 02-17-2022 influenza, high dose seasonal, preservative-free Ovi Crooks Other [facility] Other 02-17-2022 influenza virus vaccine, split virus (incl. purified surface antigen) Brina Morrissey Other [facility] Other 04-04-2021 COVID-19 Vaccine Pfi zer - Documentation Purposes Only Ovi Crooks Other [facility] Other 01-17-2021 influenza virus vaccine, split virus (incl. purified surface antigen) Brina Morrissey Other [facility] Other 06-17-2020 COVID-19 Vaccine Pfi zer - Documentation Purposes Only Ovi Crooks Other [facility] Other 05-27-2020 COVID-19 Vaccine Moderna - Documentation Purposes Only Brina Morrissey Other [facility] Other 05-27-2020 COVID-19 Vaccine Pfi zer - Documentation Purposes Only Ovi Crooks Other [facility] Other 03-10-2020 influenza virus vaccine, split virus (incl. purified surface antigen) Brina Morrissey Other [facility] Other 03-07-2019 influenza virus vaccine, split virus (incl. purified surface antigen) Brina Morrissey Other [facility] Other 03-27-2018 influenza virus vaccine, split virus (incl. purified surface antigen) Brina Morrissey Other [facility] Other 03-16-2017 pneumococcal Conjuga te, unspecified formulation; 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: [Need for prophylactic vaccination against Streptococcus pneumoniae (pneumococcus)] Brina Morrissey Other [facility] Other 03-16-2017 pneumococcal polysaccharide vaccine, 23 valent Ovi Crooks Other [facility] Other 11-17-2016 pneumococcal conjuga te vaccine, 13 valent Ovi Crooks Other [facility] Other 02-09-2016 influenza virus vaccine, split virus (incl. purified surface antigen) Brina Morrissey Other [facility] Other Payers Date Payer Category Payer Medicare [id number] 1957 Medicare [id number] 1959 Unknown [id number] 1942 Unknown [id number] 2.16.84 0.1.404535.3.579.2.593 1942 Unknown [id number] 2.16.84 0.1.076287.3.579.2.593 1942 Unknown [id number] 2.16.84 0.1.255693.3.579.2.593 1942 Unknown [id number] 2.16.84 0.1.020261.3.579.2.593 1942 Unknown [id number] 2.16.84 0.1.169886.3.579.2.593 1942 Unknown [id number] 2.16.84 0.1.472799.3.579.2.593 1942 Unknown [id number] 2.16.84 0.1.289068.3.579.2.593 1942 Unknown [id number] 2.16.84 0.1.064309.3.579.2.593 1942 Unknown [id number] 2.16.84 0.1.698324.3.579.2.593 1942 Unknown [id number] 2.16.84 0.1.462917.3.579.2.593 1942 Unknown [id number] 2.16.84 0.1.732699.3.579.2.593 1942 Unknown [id number] 2.16.84 0.1.450884.3.579.2.593 1942 Unknown [id number] 2.16.84 0.1.259784.3.579.2.593 1942 Unknown [id number] 2.16.84 0.1.158435.3.579.2.593 1942 Unknown [id number] 2.16.84 0.1.477674.3.579.2.593 1942 Unknown [id number] 2.16.84 0.1.130701.3.579.2.593 1942 Unknown [id number] 2.16.84 0.1.394514.3.579.2.593 1942 Unknown [id number] 2.16.84 0.1.793087.3.579.2.593 1942 Unknown [id number] 2.16.84 0.1.796728.3.579.2.593 1942 Unknown [id number] 2.16.84 0.1.055931.3.579.2.593 1942 Unknown [id number] 2.16.84 0.1.785080.3.579.2.593 1942 Unknown [id number] 2.16.84 0.1.212910.3.579.2.593 1942 Unknown [id number] 2.16.84 0.1.229925.3.579.2.593 1942 Unknown [id number] 2.16.84 0.1.599201.3.579.2.593 Social History Date Type Detail Facility Tobacco smoking status MOIS Unknown if ever smoked [facility] Work Phone: Start: 1940 Sex Assigned At Female F [facility] Sex Assigned At Sex Assigned At Bir th [facility] Other Clinical Notes 12-01-2021 to 04-17-2023 Note Date & Type Note Facility 04-17-2023 Evaluation note Encounter Date Diagnosis Assessment Notes Mar, Acute cerebral infarction (ICD-10 - I63.9) Mar, Cerebral atherosclerosis (ICD-10 - I67.2) [facility] Other 11-01-2023 Evaluation note* Encounter Date Diagnosis Assessment Notes Treatment Notes Treatment Clinical Notes Feb, Acute cerebral infarction (ICD-10 - I63.9) [facility] Other 11-01-2023 Evaluation note* Encounter Date Diagnosis Assessment Notes Treatment Notes Treatment Clinical Notes Feb, Bruit (ICD-10 - R09.89) [facility] Other 10-25-2023 Evaluation note* Encounter Date Diagnosis Assessment Notes Treatment Notes Treatment Clinical Notes Jan, Transient left leg weakness (ICD-10 - R29.898) Jan, Jerking movements of extremities (ICD-10 - R25.2) [facility] Other 10-24-2023 Evaluation note* Encounter Date Diagnosis [...] the risk for cerebrovascular and cardiovascular disease. [facility] Other 09-19-2023 Evaluation note* Encounter Date Diagnosis [...] Pain in left hand (ICD-10 - M79.642) [facility] Other 09-08-2023 NoteCardiology Clinic Note Chief Complaint: [...] in all muscle groups, (more content not included)...[facility]09-08-2023 NotePatient here for 6 mo follow up CAD, hypertension, and hyperlipidemia. Has not been taking aspirin because she doesn't like taking a lot of pills. Says she's only had chest pain once recently. Sees Dr. Smith and had CT chest in September. [facility]04-03-2023 Evaluation note* Encounter Date Diagnosis Assessment Notes Treatment Notes Treatment Clinical Notes Jul, Pulmonary nodule (ICD-10 - R91.1) RUL 10mm nodule - 06/3022Jul, Cough (ICD9-CM - 786.2) Jul, Mild persistent asthma without complication (ICD-10 - J45.30) [facility] Other 03-29-2023 NoteCardiology Clinic Note Chief Complaint: [...] motor function in all (more content not included)...[facility]03-23-2023 NoteCONSULTATION CONSULTATION DATE: 07/20/2022 TO: Dr. Crooks [...] be helping some of her pain symptoms.[facility] [id number] Evaluation note* Encounter Date Diagnosis Assessment Notes Treatment Notes Treatment Clinical Notes Jun, Pulmonary nodule (ICD-10 - R91.1) RUL 10mm nodule - 06/3022 [facility] Other 03-20-2023 Evaluation note* Encounter Date Diagnosis [...] use, the patient reduces the risk for OH, CVA, HTN, cardiac dysrhythmias and sudden cardiac [...] mammogram for breast cancer (ICD-10 - Z12.31) [facility] Other 02-08-2023 Evaluation note* Encounter Date Diagnosis Assessment Notes Treatment Notes Treatment Clinical Notes May, ASHD (arterioscleroti c heart disease) (ICD-10 - I25.10) LHC: moderate, nonobstructive coronary disease - 05/2022 [facility] Other 02-08-2023 NotePatient here for follow up [...] light-headedness. All other systems reviewed and are negative.[facility] 06-07-2022 NoteCardiology Clinic Note Chief Complaint: abnormal [...] Value Ventricular Rate 53 Atrial Rate 53 NM Interval 186 QRS DURATION 142 QT Interval 472 QTC CALCULATION(BAZETT) 442 P Kent 29 R-Kent -35 T Wave Kent 59 Impression Sinus bradycardia Left axis deviation Left bundle branch block Abnormal ECG When compared with ECG of 30-NOV-2008 12:01, Premature atrial comple (more content not included)...[facility]01-18-2023 NotePatient: Giovanna Gordon Lcwilber Procedure Information Date/Time: 05/17/22 0830 Procedure: CORONARY ANGIOGRAPHY Location: [facility] [address] / [facility] (Cath) Providers: Nik Gr MD Clinical information reviewed: Allergies Meds OB Status Physical Exam Airway Mallampati: III TM distance: >3 FB Neck ROM: full Cardiovascular Rhythm: regular Rate: normal Dental Pulmonary Abdominal Anesthesia Plan ASA 3 CSE Anesthetic plan and risks discussed with patient. Plan discussed with attending. Additional Equipment RequestsUnHolmes [facility] Note Chief Complaint: abnormal [...] Value Ventricular Rate 53 Atrial Rate 53 NM Interval 186 QRS DURATION 142 QT Interval 472 QTC CALCULATION(BAZETT) 442 P Kent 29 R-Kent -35 T Wave Kent 59 Impression Sinus bradycardia Left axis deviation [...] Plan: -The patient's find (more content not included)...[facility]01-11-2023 NoteNew patient here to re-establish care. She [...] light-headedness. All other systems reviewed and are negative.[facility] 02-23-2022 NoteCONSULTATION CONSULTATION DATE: 02/23/2022 This is [...] will be followed in the clinic thereafter.[facility] [id number] Evaluation note* Encounter Date Diagnosis Assessment Notes [...] in both duran ds (ICD-10 - R20.0) [facility] Other 09-01-2022 NoteCONSULTATION CONSULTATION DATE: 12/29/2021 HISTORY [...] patient is in agreement to move forward.[facility] [id number] Evaluation note* Encounter Date Diagnosis Assessment Notes [...] in both duran ds (ICD-10 - R20.0) [facility] Other 08-04-2022 NoteCONSULTATION CONSULTATION DATE: 12/01/2021 HISTORY [...] followed up in the office post procedure.[facility] HospitalEvaluation noteNo assessment information availableMemorial Health System Work Phone: Evaluation noteNo InformationNort Bridge [employer] Other History general Narrative - Reported* Type Description Date Medical History Esophageal reflux Medical History seasonal allergies Medical History DIV[place] Medical History Hypertension Surgical History APPENEDECTOMY Surgical History HYSTERECTOMY Surgical History SINUS Surgical History LEFT HAND Surgical History HEART CATH Surgical History CHOLECYSTECTOMY [facility] Other [employer] general Narrative - Reported* Type Description Date Medical History Esophageal reflux Medical History seasonal allergies Medical History [place] Medical History Hypertension Medical History ASHD (arteriosclerotic heart dis ease) Surgical History APPENEDECTOMY Surgical History HYSTERECTOMY Surgical History SINUS Surgical History LEFT HAND Surgical History HEART CATH Surgical History CHOLECYSTECTOMY Surgical History cardiac catheterization 06/07/22 [facility] Other [employer] general Narrative - Reported* Type Description Date [...] catheterization 06/07/22 Hospitalization History SEE SURGICAL HX [facility] Other Summary Purpose Family History No Family History Records FoundNo Family History Records FoundNo Family History Records FoundNo Family History Records Found Advance Directives Advance Directive Response Recorded Date/ Time Advance Directives No December 21, 2021 12:20pm Chief Complaint and Reason for Visit Chief Complaint M79.641 Additional Source Comments INFORMATION SOURCE (unrecogn ized section and content) DATE CREATED AUTHOR 12/29/2017 [facility] DATE CREATED AUTHOR AUTHOR'S ORGANIZ ATION 12/25/2021 [facility] DATE CREATED AUTHOR AUTHOR'S ORGANIZ ATION 09/08/2022 [facility] DATE CREATED AUTHOR AUTHOR'S ORGANIZ ATION 01/06/2023 [facility] Care Teams (unrecognized sec tion and [...] leg jerkingRevised orderMRI resultsNew DXNew DXUS resultsEcho resultsHolterNo Information FOR RECORDS PERTAINING TO PATIENTS WHO ARE [...] BE BASED ON THE PRIMARY CLINICAL RECORDS. [facility] [employer] [facility]. provides no warranty or guarantee of the accuracy or completeness of information in this document.
--- OUTSIDE RECORDS SUMMARY | 2023-05-17 14:03 | XMS_ITS | CCD ---
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 Name Role Phone Zahler, Quinn Unavailable Unavailable Zahler, Quinn Unavailable Unavailable Erliner, Quinn Unavailable Unavailable OVI CROOKS~[id number] UNKNOWN Unavailable Unavailable Zahler, Quinn Unavailable Unavailable Zahler, Quinn Unavailable Unavailable Kala, Quinn Unavailable Unavailable OVI CROOKS~[phone] UNKNOWN Unavailable Unavailable MD Brina Morrissey Attending [...] Primary Care Unavailable JESSICA ., DR ELIZABETH Crena Attending Unavailable JESSICA ., DR ELIZABETH Cerna [...] (1 source) Midazolam Drug Allergy 10-03-2016 [facility] Repository (1 source) Midazolam; 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: [MIDAZOLAM] Drug Allergy 05-10-2022 [facility] Repository Medications Current Medications Medication Drug Class(es) [...] Coronary arteriosclerosis; 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: [Atherosclerotic heart disease of [place] coronary artery without angina pectoris] Onset: 3 [...] current use of drug therapy; 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: [Other fci (current) drug therapy] Episodic Other and ill-defined [...] 08-05-2015 Episodic Other aftercare (1 source) 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; 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: [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] Onset: 09-20-2021 Episodic Other [...] Range Facility Office Visiton 01-05-2023 Follow-up visit [id number] Giovanna Richardson 1940 F Date Provider Department Center 01/05/2023 NIK RICHARDS [facility] Family History Problem Relation Age of Onset No Known Problems Mother No Known Problems Father Family Status - Relation Status Age at Mother Father Level of Service:30695 SD OFFICE/OUTPATIENT ESTABLISHED LOW MDM 20-29 MIN Normal [facility] FUNGAL AB QUANTITAIVE DOUBLE IMMUNODIFFUon 07-30-2022 Aspergillus flavus Negative Normal Neg:<1:1 [facility] Comment on above: Performed By: #### F UNGUYI #### [facility] [address] [address] [address] Milena Rosa Aspergillus fumigatus Negative Normal Neg:<1:1 [facility] Comment on above: Performed By: #### F UNGUYI #### [facility] [address] [address] [address] Milena Rosa Aspergillus niger Negative Normal Neg:<1:1 [facility] Comment on above: Performed By: #### F UNGUYI #### [facility] [address] [address] [address] Milena Rosa Blastomyces Negative Normal Neg:<1:1 [facility] Comment on above: Performed By: #### F UNGUYI #### [facility] [address] [place] [address] Dr. Milena Rosa HISTOPLASMA GALACTOMANNAN AG URINEon 07-30-2022 Histoplasma Gal'rosales Ag <0.5 Normal <0.5 ng/mL [facility] Comment on above: Performed By: #### H ISTGAL ####[facility] [address] [address]Dr. Milena Rosa COCCIDIODES IGG/IGM AB BY IF Aon 07-29-2022 Coccidiodes Ab, IgG EIA 0.1 EIA Units Normal [facility] Comment on above: Result Comment: Nega tive <1.0 Indeterminate 1.0-1.4 Positive >1.4 Performed By: #### C OCCABS #### [facility] [address] [place] [address] Dr. Milena Rosa Coccidiodes Ab, IgM, EIA 0.0 EIA Units Normal [facility] Comment on above: Result Comment: Nega tive <1.0 Indeterminate 1.0-1.4 Positive >1.4 Performed By: #### C OCCABS #### [facility] [address] [place] [address] Dr. Milena Rosa HISTOPLASMA CAP AB QUANT DID on 07-29-2022 Histoplasma Mycelial CF Ab. Negative Normal Neg:<1:2 [facility] Comment on above: Performed By: #### H ISTDID ####[facility] [address] [place], [place] [address]Dr. Milena Rosa Histoplasma Yeast CF Ab Negative Normal Neg:<1:2 [facility] Comment on above: Performed By: #### H ISTDID ####[facility] [address] [address]Dr. Milena Rosa Office Visiton 07-26-2022 Follow-up visit [id number] Giovanna Richardson 1940 F Date Provider Department Center 07/26/2022 NIK RICHARDS [facility] Family History Problem Relation Age of Onset No Known Problems Mother No Known Problems Father Family Status - Relation Status Age at Mother Father Level of Service:66992 SD OFFICE/OUTPATIENT ESTABLISHED MOD MDM 30-39 MIN Reason for Visit and Comments: Follow-up [528043] - 6 weeks- Go over Holter monitor results- Discuss medications Normal [facility] CT CHEST WO CONon 07-19-2022 CT CHEST [...] by: WILLIAM BERMEO Date: 2022-07-19 14:55 Normal [facility] Office Visiton 06-07-2022 Follow-up visit [id number] Giovanna Richardson 1940 F Date Provider Department Center 06/07/2022 [id number] [facility] Family History Problem Relation Age of Onset No Known Problems Mother No Known Problems Father Family Status - Relation Status Age at Mother Father Level of Service:89054 SD OFFICE/OUTPATIENT ESTABLISHED MOD MDM 30-39 MIN Reason for Visit and Comments: Post-Cath [731] Normal [facility] HPon 05-17-2022 - Attestation signed by Nik [...] conscious sedation, risk and benefits discussed. 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 Milena Rosa Basophils/100 WBC (Bld) 0.3 % Normal 0.2-2.0 [facility] Comment on above: Performed By: #### C BC #### [facility] [address] [address] [address] Milena Rosa EO # 0.2 103/ul Normal 0.0-0.7 [facility] Comment on above: Performed By: #### C BC #### [facility] [address] [address] [address] Milena Rosa Eosinophils/100 WBC (Bld) 2.8 % Normal 0.9-7.0 [facility] Comment on above: Performed By: #### C BC #### [facility] [address] [address] [address] Milena Rosa Erythrocyte distribution width (RBC) [Ratio] 13.3 % Normal 11.0-15.0 [facility] Comment on above: Performed By: #### C BC #### [facility] [address] [address] [address] Milena Rosa Hematocrit (Bld) [Volume fraction] 38.5 % Normal 36.0-48.0 [facility] Comment on above: Performed By: #### C BC #### [facility] [address] [address] [address] Milena Rosa Hemoglobin (Bld) [Mass/Vol] 12.6 g/dL Normal 12.0-16.0 [facility] Comment on above: Performed By: #### C BC #### [facility] [address] [place] [address] Dr. Milena Rosa IG # 0.02 10e3/ul Normal 0.00-0.03 [facility] Comment on above: Performed By: #### C BC #### [facility] [address] [place] [address] Dr. Milena Rosa IG % 0.3 % Normal 0.0-0.5 [facility] Comment on above: Performed By: #### C BC #### [facility] [address] [place] [address] Dr. Milena Rosa LYMPH # 2.5 103/ul Normal 1.2-3.8 [facility] Comment on above: Performed By: #### C BC #### [facility] [address] [place] [address] Dr. Milena Rosa Lymphocytes/100 WBC (Bld) 37.6 % Normal 20.5-60.0 [facility] Comment on above: Performed By: #### C BC #### [facility] [address] [place] [address] Dr. Milena Rosa MANUAL DIFF REQ NO Normal [facility] Comment on above: Performed By: #### C BC #### [facility] [address] [place] [address] Dr. Milena Rosa MCH (RBC) [Entitic mass] 29.8 pg Normal 26.7-34.0 [facility] Comment on above: Performed By: #### C BC #### [facility] [address] [place] [address] Dr. Milena Rosa MCHC (RBC) [Mass/Vol] 32.7 g/dL Normal 29.9-35.2 [facility] Comment on above: Performed By: #### C BC #### [facility] [address] [place] [address] Dr. Milena Rosa MCV (RBC) [Entitic vol] 91.0 fL Normal 81.0-99.0 [facility] Comment on above: Performed By: #### C BC #### [facility] [address] [place] [address] Dr. Milena Rosa MONO # 0.7 103/ul Normal 0.3-0.8 [facility] Comment on above: Performed By: #### C BC #### [facility] [address] [place] [address] Dr. Milena Rosa Monocytes/100 WBC (Bld) 10.0 % Normal 1.7-12.0 [facility] Comment on above: Performed By: #### C BC #### [facility] [address] [place] [address] Dr. Milena Rosa NEUT # 3.3 103/ul Normal 1.4-6.5 [facility] Comment on above: Performed By: #### C BC #### [facility] [address] [place] [address] Dr. Milena Rosa Neutrophils/100 WBC (Bld) 49.0 % Normal 43.0-75.0 [facility] Comment on above: Performed By: #### C BC #### [facility] [address] [place] [address] Dr. Milena Rosa Platelet mean volume (Bld) [Entitic vol] 11.5 fL Normal 9.5-13.5 [facility] Comment on above: Performed By: #### C BC #### [facility] [address] [place] [address] Dr. Milena Rosa PLT 201 103/ul Normal 150-450 [facility] Comment on above: Performed By: #### C BC #### [facility] [address] [place] [address] Dr. Milena Rosa RBC 4.23 106/ul Normal 4.20-5.40 [facility] Comment on above: Performed By: #### C BC #### [facility] [address] [place] [address] Dr. Milena Rosa WBC 6.7 103/ul Normal 4.0-11.0 [facility] Comment on above: Performed By: #### C BC #### [facility] [address] [address] [address] Milena Rosa Covid-19 PCR (CVDTB)on 04-30 SARS-CoV-2 (COVID-19) RNA RADHA+probe Ql (Unsp spec) Not detected Normal NOT DETECTED [facility] Comment on above: Result Comment: This test is not yet approved or cleared by the [place] FDA. When there are no FDA-approved or cleared tests available, and other criteria are met, FDA can make tests available under an emergency access mechanism called an Emergency Use Authorization (EUA). The EUA for this test is supported by the Chairman And Chief Executive Officer of Health and Human Service's (HHS's) declaration [...] with SARS-CoV-2. Performed By: #### C VDTB ####[facility] [address] [address]Dr. Milena Rosa PROF CHEM 8 (BAS METB)on Anion gap [Moles/Vol] 13.1 mmol/L Normal [facility] Comment on above: Performed By: #### B MP #### [facility] [address] [place] [address] Dr. Milena Rosa Calcium [Mass/Vol] 9.8 mg/dL Normal 8.5-10.1 [facility] Comment on above: Performed By: #### B MP #### [facility] [address] [place] [address] Dr. Milena Rosa Chloride [Moles/Vol] 103 mmol/L Normal 98-107 [facility] Comment on above: Performed By: #### B MP #### [facility] [address] [place] [address] Dr. Milena Rosa CO2 [Moles/Vol] 26.7 mmol/L Normal 21.0-32.0 [facility] Comment on above: Performed By: #### B MP #### [facility] [address] [address] [address] Milena Rosa Creatinine [Mass/Vol] 0.95 mg/dL Normal 0.55-1.02 [facility] Comment on above: Performed By: #### B MP #### [facility] [address] [address] [address] Milena Rosa EGFR-AF CUBAN >60 Normal >=60 [facility] Comment on above: Performed By: #### B MP #### [facility] [address] [address] [address] Milena Rosa EGFR-NON AF CUBAN 57 mL/min/1.73m2 Critically low >=60 [facility] Comment on above: Performed By: #### B MP #### [facility] [address] [address] [address] Milena Rosa Glucose [Mass/Vol] 93 mg/dL Normal 74-106 [facility] Comment on above: Performed By: #### B MP #### [facility] [address] [address] [address] Milena Rosa Potassium [Moles/Vol] 3.8 mmol/L Normal 3.5-5.1 [facility] Comment on above: Performed By: #### B MP #### [facility] [address] [address] [address] Milena Rosa Sodium [Moles/Vol] 139 mmol/L Normal 136-145 [facility] Comment on above: Performed By: #### B MP #### [facility] [address] [address] [address] Milena Rosa Urea nitrogen [Mass/Vol] 18.0 mg/dL Normal 7.0-18.0 [facility] Comment on above: Performed By: #### B MP #### [facility] [address] [address] [address] Milena Rosa Urea nitrogen/Creatinine [Mass ratio] 18.9 mg/mg Normal [facility] Comment on above: Performed By: #### B #### [facility] [address] [address] [address] Milena Rosa Office Visiton 05-10-2022 Follow-up visit [id number] Giovanna Richardson 1940 F Date Provider Department Center 05/10/2022 [id number] SORIASimran [facility] Family History Problem Relation Age of Onset No Known Problems Mother No Known Problems Father Family Status - Relation Status Age at Mother Father Level of Service:43818 SD OFFICE/OUTPATIENT NEW MODERATE MDM 45-59 MINUTES Reason for Visit and Comments: Cardiac Stress Test [489] Normal [facility] NM STRESS/REST MULTIon 04-28 NM STRESS/REST MULTI Patient: GIOVANNA RICHARDSON Exam Date: 04/28/2022 : 1940 Gender:F Ordering : DR OVI CROOKS DNinfa Admission #: [id number] Family : Order #: [id number] CLICK HERE TO VIEW EXAM RADIOLOGY REPORT [...] MD on 04/28/2022 at 14:26 Normal [facility] CBC AUTO DIFFon 02-27-2022 BASO # 0.0 103/ul Normal 0.0-0.1 [facility] Comment on above: Performed By: #### C BC ####[facility] [address] [address]Dr. Milena Rosa Basophils/100 WBC (Bld) 0.5 % Normal 0.2-2.0 [facility] Comment on above: Performed By: #### C BC ####[facility] [address] [place], [place] [address]Dr. Milena Rosa EO # 0.1 103/ul Normal 0.0-0.7 [facility] Comment on above: Performed By: #### C BC ####[facility] [address] [place], [place] [address]Dr. Milena Rosa Eosinophils/100 WBC (Bld) 1.9 % Normal 0.9-7.0 [facility] Comment on above: Performed By: #### C BC ####[facility] [address] [place], [place] [address]Dr. Milena Rosa Erythrocyte distribution width (RBC) [Ratio] 14.3 % Normal 11.0-15.0 [facility] Comment on above: Performed By: #### C BC ####[facility] [address] [place], [place] [address]Dr. Milena Rosa Hematocrit (Bld) [Volume fraction] 37.6 % Normal 36.0-48.0 [facility] Comment on above: Performed By: #### C BC ####[facility] [address] [place], [place] [address]Dr. Milena Rosa Hemoglobin (Bld) [Mass/Vol] 12.6 g/dL Normal 12.0-16.0 [facility] Comment on above: Performed By: #### C BC ####[facility] [address] [address]Dr. Milena Rosa IG # 0.02 10e3/ul Normal 0.00-0.03 [facility] Comment on above: Performed By: #### C BC ####[facility] [address] [address]Dr. Milena Rosa IG % 0.3 % Normal 0.0-0.5 [facility] Comment on above: Performed By: #### C BC ####[facility] [address] [address]Dr. Milena Rosa LYMPH # 2.1 103/ul Normal 1.2-3.8 [facility] Comment on above: Performed By: #### C BC ####[facility] [address] [address]DrElia Rosa Lymphocytes/100 WBC (Bld) 33.2 % Normal 20.5-60.0 [facility] Comment on above: Performed By: #### C BC ####[facility] [address] [address]DrElia Rosa MANUAL DIFF REQ NO Normal [facility] Comment on above: Performed By: #### C BC ####[facility] [address] [address]Dr. Milena Rosa MCH (RBC) [Entitic mass] 30.9 pg Normal 26.7-34.0 [facility] Comment on above: Performed By: #### C BC ####[facility] [address] [address]Dr. Milena Rosa MCHC (RBC) [Mass/Vol] 33.5 g/dL Normal 29.9-35.2 [facility] Comment on above: Performed By: #### C BC ####[facility] [address] [address]Dr. Milena Rosa MCV (RBC) [Entitic vol] 92.2 fL Normal 81.0-99.0 [facility] Comment on above: Performed By: #### C BC ####[facility] [address] [address] Milena Rosa MONO # 0.6 103/ul Normal 0.3-0.8 [facility] Comment on above: Performed By: #### C BC ####[facility] [address] [address]Dr. Milena Rosa Monocytes/100 WBC (Bld) 8.9 % Normal 1.7-12.0 [facility] Comment on above: Performed By: #### C BC ####[facility] [address] [address]Dr. Milena Rosa NEUT # 3.5 103/ul Normal 1.4-6.5 [facility] Comment on above: Performed By: #### C BC ####[facility] [address] [address]Dr. Milena Rosa Neutrophils/100 WBC (Bld) 55.2 % Normal 43.0-75.0 [facility] Comment on above: Performed By: #### C BC ####[facility] [address] [address] Milena Rosa Platelet mean volume (Bld) [Entitic vol] 11.6 fL Normal 9.5-13.5 [facility] Comment on above: Performed By: #### C BC ####[facility] [address] [address]. Milena Rosa PLT 217 103/ul Normal 150-450 [facility] Comment on above: Performed By: #### C BC ####[facility] [address] [address]Dr. Milena Rosa RBC 4.08 106/ul Critically low 4.20-5.40 [facility] Comment on above: Performed By: #### C BC ####[facility] [address] [address]. Milena Rosa WBC 6.3 103/ul Normal 4.0-11.0 [facility] Comment on above: Performed By: #### C BC ####[facility] [address] [place], [place] [address]Kb. Milena Rosa ECHOCARDIO M/2D COMPLETEon 1 ECHOCARDIO M/2D COMPLETE Patient: GIOVANNA RICHARDSON Exam Date: 02/27/2022 : 1940 Gender:F Ordering : DR OVI CROOKS DEliaOElia Admission #: [id number] Family : Order #: [id number] CLICK HERE TO VIEW EXAM ECHOCARDIOGRAM REPORT [...] Christie M.D. on 03/01/2022 at 11:53 Normal [facility] PROF CHEM 8 (BAS METB)on Anion gap [Moles/Vol] 6.1 mmol/L Normal [facility] Comment on above: Performed By: #### B TERESA TSH #### [facility] [address] [place] [address] Dr. Milena Rosa Calcium [Mass/Vol] 9.0 mg/dL Normal 8.5-10.1 [facility] Comment on above: Performed By: #### B TERESA, TSH #### [facility] [address] [address] [address] Milena Rosa Chloride [Moles/Vol] 103 mmol/L Normal 98-107 [facility] Comment on above: Performed By: #### B MP, TSH #### [facility] [address] [address] [address] Milena Rosa CO2 [Moles/Vol] 34.4 mmol/L Critically high 21.0-32.0 [facility] Comment on above: Performed By: #### B MP, TSH #### [facility] [address] [address] [address] Milena Rosa Creatinine [Mass/Vol] 1.21 mg/dL Critically high 0.55-1.02 [facility] Comment on above: Performed By: #### B MP, TSH #### [facility] [address] [place] [address] Dr. Milena Rosa EGFR-AF CUBAN 52 mL/min/1.73m2 Critically low >=60 [facility] Comment on above: Performed By: #### B MP, TSH #### [facility] [address] [place] [address] Dr. Milena Rosa EGFR-NON AF CUBAN 43 mL/min/1.73m2 Critically low >=60 [facility] Comment on above: Performed By: #### B MP, TSH #### [facility] [address] [place] [address] Dr. Milena Rosa Glucose [Mass/Vol] 101 mg/dL Normal 74-106 [facility] Comment on above: Performed By: #### B MP, TSH #### [facility] [address] [place] [address] Dr. Milena Rosa Potassium [Moles/Vol] 3.5 mmol/L Normal 3.5-5.1 [facility] Comment on above: Performed By: #### B MP, TSH #### [facility] [address] [place] [address] Dr. Milena Rosa Sodium [Moles/Vol] 140 mmol/L Normal 136-145 [facility] Comment on above: Performed By: #### B MP, TSH #### [facility] [address] [address] [address] Milena Rosa Urea nitrogen [Mass/Vol] 20.0 mg/dL Critically high 7.0-18.0 [facility] Comment on above: Performed By: #### B MP, TSH #### [facility] [address] [address] [address] Milena Rosa Urea nitrogen/Creatinine [Mass ratio] 16.5 mg/mg Normal [facility] Comment on above: Performed By: #### B MP, TSH #### [facility] [address] [address] [address] Milena Rosa TSHon 02-27-2022 TSH 1.640 uIU/mL Normal 0.358-3.[address] [facility] Comment on above: Performed By: #### B MP, TSH #### [facility] [address] [address] [address] Milena Rosa XR CHEST 2 Von [...] by: WHITNEY FOURNIER Date: 2022-02-27 13:49 Normal [facility] MRI LSPINE WO CONon 01-10-20 MRI [...] by: WILLIAM BERMEO Date: 2022-01-09 16:20 Normal [facility] XR hand BI 3Von 12-21-2021 XR hand BI 3V [facility] [place] [address] [place] [address] XRay Report Signed Patient: Giovanna Richardson MR#: [id number] : 1940 Acct:[id number] Age/Sex: 81 / F ADM Date: 12/21/21 Loc: [facility] Room: Type: [facility] Attending Dr: Brina Morrissey MD Copies [...] Caal Jr., D.O.12/21/2021 2:31 PM Dictation Location: [place] [address] Transcribed By: [facility] 12/21/21 1431 Dictated By: Erasmo Caal Jr, DO 12/21/21 1427 Signed By: 12/21/21 1431 Normal [facility] CBC AUTO DIFFon 09-14-2021 BASO # 0.0 103/ul Normal 0.0-0.1 [facility] Comment on above: Performed By: #### C BC #### [facility] [address] [address] [address] Milena Rosa Basophils/100 WBC (Bld) 0.2 % Normal 0.2-2.0 [facility] Comment on above: Performed By: #### C BC #### [facility] [address] [address] [address] Milena Rosa EO # 0.1 103/ul Normal 0.0-0.7 [facility] Comment on above: Performed By: #### C BC #### [facility] [address] [address] [address] Milena Rosa Eosinophils/100 WBC (Bld) 2.8 % Normal 0.9-7.0 [facility] Comment on above: Performed By: #### C BC #### [facility] [address] [place], [place] [address] Dr. Milena Rosa Erythrocyte distribution width (RBC) [Ratio] 13.4 % Normal 11.0-15.0 [facility] Comment on above: Performed By: #### C BC #### [facility] [address] [place] [address] Dr. Milena Rosa Hematocrit (Bld) [Volume fraction] 38.2 % Normal 36.0-48.0 [facility] Comment on above: Performed By: #### C BC #### [facility] [address] [place] [address] Dr. Milena Rosa Hemoglobin (Bld) [Mass/Vol] 12.5 g/dL Normal 12.0-16.0 [facility] Comment on above: Performed By: #### C BC #### [facility] [address] [place] [address] Dr. Milena Rosa IG # 0.02 10e3/ul Normal 0.00-0.03 [facility] Comment on above: Performed By: #### C BC #### [facility] [address] [place] [address] Dr. Milena Rosa IG % 0.4 % Normal 0.0-0.5 [facility] Comment on above: Performed By: #### C BC #### [facility] [address] [place] [address] Dr. Milena Rosa LYMPH # 2.1 103/ul Normal 1.2-3.8 [facility] Comment on above: Performed By: #### C BC #### [facility] [address] [place] [address] Dr. Milena Rosa Lymphocytes/100 WBC (Bld) 40.5 % Normal 20.5-60.0 [facility] Comment on above: Performed By: #### C BC #### [facility] [address] [place] [address] Dr. Milena Rosa MANUAL DIFF REQ NO Normal [facility] Comment on above: Performed By: #### C BC #### [facility] [address] [address] [address] Milena Rosa MCH (RBC) [Entitic mass] 29.7 pg Normal 26.7-34.0 [facility] Comment on above: Performed By: #### C BC #### [facility] [address] [place] [address] Dr. Milena Rosa MCHC (RBC) [Mass/Vol] 32.7 g/dL Normal 29.9-35.2 [facility] Comment on above: Performed By: #### C BC #### [facility] [address] [place] [address] Dr. Milena Rosa MCV (RBC) [Entitic vol] 90.7 fL Normal 81.0-99.0 [facility] Comment on above: Performed By: #### C BC #### [facility] [address] [place] [address] Dr. Milena Rosa MONO # 0.6 103/ul Normal 0.3-0.8 [facility] Comment on above: Performed By: #### C BC #### [facility] [address] [place] [address] Dr. Milena Rosa Monocytes/100 WBC (Bld) 12.0 % Normal 1.7-12.0 [facility] Comment on above: Performed By: #### C BC #### [facility] [address] [place] [address] Dr. Milena Rosa NEUT # 2.3 103/ul Normal 1.4-6.5 [facility] Comment on above: Performed By: #### C BC #### [facility] [address] [place] [address] Dr. Milena Rosa Neutrophils/100 WBC (Bld) 44.1 % Normal 43.0-75.0 [facility] Comment on above: Performed By: #### C BC #### [facility] [address] [place] [address] Dr. Milena Rosa Platelet mean volume (Bld) [Entitic vol] 11.7 fL Normal 9.5-13.5 [facility] Comment on above: Performed By: #### C BC #### [facility] [address] [address] [address] Milena Rosa PLT 206 103/ul Normal 150-450 [facility] Comment on above: Performed By: #### C BC #### [facility] [address] [address] [address] Milena Rosa RBC 4.21 106/ul Normal 4.20-5.40 [facility] Comment on above: Performed By: #### C BC #### [facility] [address] [address] [address] Milena Rosa WBC 5.1 103/ul Normal 4.0-11.0 [facility] Comment on above: Performed By: #### C BC #### [facility] [address] [address] [address] Milena Rosa MG MAMM SCREEN 3D SHERICE CADon 09-14-2021 MG MAMM SCREEN 3D SHERICE CAD Patient: GIOVANNA RICHARDSON Exam Date: 09/14/2021 : 1940 Gender:F Ordering : DR OVI CROOKS D.O. Admission #: [id number] Family : Order #: [id number] CLICK HERE TO VIEW EXAM RADIOLOGY REPORT [...] Treatments None Family Cancers None LOCATION: [facility] BREAST COMPOSITION: Scattered areas fibroglandular [...] Ziegler MD on 09/14/2021 at 10:42 Normal [facility] PROF CHEM 8 (BAS METB)on Anion gap [Moles/Vol] 10.5 mmol/L Normal [facility] Comment on above: Performed By: #### B MP #### [facility] [address] [place] [address] Dr. Milena Rosa Calcium [Mass/Vol] 9.5 mg/dL Normal 8.5-10.1 [facility] Comment on above: Performed By: #### B MP #### [facility] [address] [address] [address] Milena Rosa Chloride [Moles/Vol] 101 mmol/L Normal 98-107 [facility] Comment on above: Performed By: #### B MP #### [facility] [address] [place] [address] Dr. Milena Rosa CO2 [Moles/Vol] 31.1 mmol/L Normal 21.0-32.0 [facility] Comment on above: Performed By: #### B MP #### [facility] [address] [place] [address] Dr. Milena Rosa Creatinine [Mass/Vol] 1.01 mg/dL Normal 0.55-1.02 [facility] Comment on above: Performed By: #### B MP #### [facility] [address] [place] [address] Dr. Milena Rosa EGFR-AF CUBAN >60 Normal >=60 [facility] Comment on above: Performed By: #### B MP #### [facility] [address] [address] [address] Milena Rosa EGFR-NON AF CUBAN 53 mL/min/1.73m2 Critically low >=60 [facility] Comment on above: Performed By: #### B MP #### [facility] [address] [address] [address] Milena Rosa Glucose [Mass/Vol] 96 mg/dL Normal 74-106 [facility] Comment on above: Performed By: #### B MP #### [facility] [address] [place] [address] Dr. Milena Rosa Potassium [Moles/Vol] 3.6 mmol/L Normal 3.5-5.1 [facility] Comment on above: Performed By: #### B MP #### [facility] [address] [address] [address] Milena Rosa Sodium [Moles/Vol] 139 mmol/L Normal 136-145 [facility] Comment on above: Performed By: #### B MP #### [facility] [address] [address] [address] Milena Rosa Urea nitrogen [Mass/Vol] 20.0 mg/dL Critically high 7.0-18.0 [facility] Comment on above: Performed By: #### B MP #### [facility] [address] [address] [address] Milena Rosa Urea nitrogen/Creatinine [Mass ratio] 19.8 mg/mg Normal [facility] Comment on above: Performed By: #### B MP #### [facility] [address] [address] [address] Milena Rosa Coding Summary.on 12-26-2017 Coding Summary. CODING DATE: 12/26/2017 FINAL [facility] STATUS: Home (Routine DC) PAYOR: Medicare APC DESCRIPTION [address] [facility] Procedures ADMIT DX: REASON FOR VISIT DX: H26.492 Other secondary cataract, left eye FINAL DX: PRINCIPAL: H26.492 Other secondary cataract, left eye SECONDARY: PYMT PROC APC STAT DESCRIPTION DOCTOR NAME DATE 13780 5481 T Discission of secondary Kala KENNEDY [...] Revised Date Saved: 12/26/2017 11:03 am Normal [facility] Coding Summary.on 12-19-2017 Coding Summary. CODING DATE: 12/19/2017 FINAL [facility] STATUS: Home (Routine DC) PAYOR: Medicare APC DESCRIPTION [facility] [facility] Procedures ADMIT DX: REASON FOR VISIT DX: H26.40 Unspecified secondary cataract FINAL DX: PRINCIPAL: H26.40 Unspecified secondary cataract SECONDARY: PYMT PROC APC STAT DESCRIPTION DOCTOR NAME DATE 23171 5481 T Discission of secondary Quinn Armendariz [...] Perez Date Saved: 12/19/2017 09:21 am Normal [facility] Vital Signs Date Time Vital Sign Value Performing Clinician Facility 02-20-2023 16:00-0400 Body height [facility] Other [facility] Other 02-20-2023 16:00-0400 Body mass index (BMI) [Ratio] 30.44 kg/m2 [facility] Other [facility] Other 02-20-2023 16:00-0400 Body weight 69.54 kg [facility] Other [facility] Other 02-20-2023 16:00-0400 Diastolic blood pressure 78 mm[Hg] [facility] Other [facility] Other 02-20-2023 16:00-0400 Respiratory rate 12 /min [facility] [employer] Other [facility] Other 02-20-2023 16:00-0400 Systolic blood pressure 144 mm[Hg] [facility] Other [facility] Other 07-17-2022 16:30-0400 Body height Ovi Ball Other [facility] Other 07-17-2022 16:30-0400 Body mass index (BMI) [Ratio] 31.33 kg/m2 Ovi Ball Other [facility] Other 07-17-2022 16:30-0400 Body weight 71.58 kg Ovi Ball Other [facility] Other 07-17-2022 16:30-0400 Diastolic blood pressure 75 mm[Hg] Ovi Ball Other [facility] Other 07-17-2022 16:30-0400 Respiratory rate 12 /min Ovi Ball Other [facility] Other 07-17-2022 16:30-0400 Systolic blood pressure 122 mm[Hg] Ovi Ball Other [facility] Other 12-21-2021 11:00-0400 Body height Brina Morrissey Other [facility] Other Encounters Encounter Date Encounter Type Care Provider Facility Start: 04-17-2023 End: 04-17-2023 ambulatory Ovi Ball Other [facility] Other Start: 04-17-2023 Telephone encounter Ovi Ball [facility] Start: 03-13-2023 End: 03-13-2023 ambulatory Ovi Ball Other [facility] Other Start: 03-13-2023 Telephone encounter Ovi Ball [facility] Start: 03-07-2023 End: 03-07-2023 ambulatory Ovi Ball Other [facility] Other Start: 03-07-2023 Telephone encounter Ovi Ball [facility] Start: 03-01-2023 End: 03-01-2023 ambulatory Ovi Crooks Other [facility] Other Start: 03-01-2023 Telephone encounter Ovi Crooks [facility] Start: 02-28-2023 End: 02-28-2023 ambulatory Ovi Crooks Other [facility] Other Start: 02-28-2023 Telephone encounter Ovi Crooks [facility] Start: 02-22-2023 End: 02-22-2023 ambulatory Ovi Crooks Other [facility] Other Start: 02-22-2023 Telephone encounter Ovi Crooks [facility] Start: 02-21-2023 End: 02-21-2023 ambulatory Ovi Crooks Other [facility] Other Start: 02-21-2023 Telephone encounter Ovi Crooks [facility] Start: 02-20-2023 End: 02-20-2023 ambulatory Ovi Crooks Other [facility] Other Start: 02-20-2023 Office outpatient vi sit 25 minutes Ovi Crooks [facility] Start: 01-23-2023 End: 01-23-2023 ambulatory Ovi Crooks Other [facility] Other Start: 01-23-2023 Telephone encounter Ovi Crooks [facility] Start: 01-16-2023 End: 01-16-2023 ambulatory Brina Morrissey Other [facility] Other Start: 01-16-2023 Office outpatient vi sit 15 minutes Brina Morrissey [facility] Start: 01-05-2023 End: 01-05-2023 [facility] Start: 11-23-2022 ambulatory DAVID KAPOOR . Facili ty:H1 Start: 09-01-2022 End: 09-02-2022 ambulatory DAVID KAPOOR . Facility:[facility]1 Start: 07-31-2022 End: 07-31-2022 ambulatory Brina Morrissey Other [facility] Other Start: 07-31-2022 Telephone encounter Brina Wright [facility] Start: 07-26-2022 End: 07-27-[address] OVI CROOKS Facility:[facility]1 Start: 07-26-2022 End: 07-26-2022 ambulatory [facility] Start: 07-25-2022 End: 07-25-2022 ambulatory NARJESENIAATH LAKSHMIPATHY . Facility:H1 Start: 07-20-2022 End: 07-21-2022 ambulatory NARCLARERANATH LAKSHMIPATHY . Facility:[facility]1 Start: 07-19-2022 End: 07-20-[address] OVI CROOKS [facility] Other Start: 07-19-2022 Telephone encounter Ovi IBARRA [facility] Start: 07-17-2022 End: 07-17-2022 ambulatory Ovi Crooks Other [facility] Other Start: 07-17-2022 Patient encounter procedure Ovi Crooks [facility] Start: 06-20-2022 End: 06-20-[address] ELIZABETH JESSICA . Facility:[facility]1 Start: 06-07-2022 Telephone encounter Brina Wright [facility] Start: 06-07-2022 End: 06-07-2022 [facility] [employer] Other Start: 05-20-2022 Encounter for preprocedural laboratory examination [facility] Start: 05-17-2022 End: 05-17-2022 ambulatory [facility] Start: 05-15-2022 End: 05-16-2022 ambulatory [facility] Facility:H1 Start: 05-15-2022 End: 05-16-2022 Encounter for preprocedural laboratory examination [facility] Facility:[facility]1 Start: 05-10-2022 End: 05-10-2022 ambulatory NIK [facility] Start: 05-09-[address] ELIZABETH JESSICA . [...] 01-18-2022 End: 01-18-2022 ambulatory Brina Morrissey Other [facility] Other Start: 01-18-2022 Office outpatient vi sit 15 minutes Brina Morrissey [facility] Start: 01-09-2022 End: 01-10-2022 ambulatory MARY CRISTOBAL . Facility:H1 Start: 12-29-2021 End: 12-30-2021 ambulatory MARY CRISTOBAL . Facility:[facility]1 Start: 12-21-2021 End: 12-21-2021 ambulatory Brina Morrissey Other [facility] Other Start: 12-21-2021 Office outpatient ne w 30 minutes Brina Morrissey [facility] Start: 12-21-2021 End: 12-21-2021 Patient encounter procedure MD Brina Morrissey Work Phone: [facility] Start: 12-13-2021 End: 12-13-[address] ELIZABETH JESSICA . Facility:[facility]1 Start: 12-01-2021 End: 12-02-2021 ambulatory MARY CRISTOBAL . Facility:[facility]1 Start: 09-14-2021 End: 09-15-[address] OVI CROOKS Facility: Start: 08-17-2021 Adult health examination Brina Morrissey Other [facility] [employer] Other Start: 12-25-2017 End: 12-25-2017 Patient encounter Quinn Armendariz Facility:[facility] Start: 12-18-2017 End: 12-18-2017 Patient encounter Quinn Armendariz Facility:[facility] Procedures Date Procedure Procedure Detail Performing Clinician [...] Immunization Date Immunization Notes Care Provider Fa [facility] 02-17-2022 influenza, high dose seasonal, preservative-free Ovi Crooks Other [facility] Other 02-17-2022 influenza virus vaccine, split virus (incl. purified surface antigen) Brina Morrissey Other [facility] Other 04-04-2021 COVID-19 Vaccine Pfi zer - Documentation Purposes Only Ovi Crooks Other [facility] Other 01-17-2021 influenza virus vaccine, split virus (incl. purified surface antigen) Brina Morrissey Other [facility] Other 06-17-2020 COVID-19 Vaccine Pfi zer - Documentation Purposes Only Ovi Crooks Other [facility] Other 05-27-2020 COVID-19 Vaccine Moderna - Documentation Purposes Only Brina Morrissey Other [facility] Other 05-27-2020 COVID-19 Vaccine Pfi zer - Documentation Purposes Only Ovi Crooks Other [facility] Other 03-10-2020 influenza virus vaccine, split virus (incl. purified surface antigen) Brina Morrissey Other [facility] Other 03-07-2019 influenza virus vaccine, split virus (incl. purified surface antigen) Brina Morrissey Other [facility] Other 03-27-2018 influenza virus vaccine, split virus (incl. purified surface antigen) Brina Morrissey Other [facility] Other 03-16-2017 pneumococcal Conjuga te, unspecified formulation; 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: [Need for prophylactic vaccination against Streptococcus pneumoniae (pneumococcus)] Brina Morrissey Other [facility] Other 03-16-2017 pneumococcal polysaccharide vaccine, 23 valent Ovi Crooks Other [facility] Other 11-17-2016 pneumococcal conjuga te vaccine, 13 valent Ovi Crooks Other [facility] Other 02-09-2016 influenza virus vaccine, split virus (incl. purified surface antigen) Brina Morrissey Other [facility] Other Payers Date Payer Category Payer Medicare [id number] 1957 Medicare [id number] 1957 Unknown [id number] 1940 Unknown [id number] 2.16.84 0.1.310608.3.579.2.593 1940 Unknown [id number] 2.16.84 0.1.177087.3.579.2.593 1940 Unknown [id number] 2.16.84 0.1.207269.3.579.2.593 1942 Unknown [id number] 2.16.84 0.1.539795.3.579.2.593 1940 Unknown [id number] 2.16.84 0.1.726844.3.579.2.593 1940 Unknown [id number] 2.16.84 0.1.813984.3.579.2.593 1940 Unknown [id number] 2.16.84 0.1.339454.3.579.2.593 1942 Unknown [id number] 2.16.84 0.1.459040.3.579.2.593 1942 Unknown [id number] 2.16.84 0.1.185275.3.579.2.593 1942 Unknown [id number] 2.16.84 0.1.341841.3.579.2.593 1942 Unknown [id number] 2.16.84 0.1.907859.3.579.2.593 1942 Unknown [id number] 2.16.84 0.1.685226.3.579.2.593 1942 Unknown [id number] 2.16.84 0.1.671578.3.579.2.593 1942 Unknown [id number] 2.16.84 0.1.661538.3.579.2.593 1942 Unknown [id number] 2.16.84 0.1.312776.3.579.2.593 1942 Unknown [id number] 2.16.84 0.1.622585.3.579.2.593 1942 Unknown [id number] 2.16.84 0.1.749093.3.579.2.593 1940 Unknown [id number] 2.16.84 0.1.389137.3.579.2.593 1940 Unknown [id number] 2.16.84 0.1.692274.3.579.2.593 1942 Unknown [id number] 2.16.84 0.1.642634.3.579.2.593 1942 Unknown [id number] 2.16.84 0.1.712808.3.579.2.593 1942 Unknown [id number] 2.16.84 0.1.424990.3.579.2.593 1940 Unknown [id number] 2.16.84 0.1.899546.3.579.2.593 1940 Unknown [id number] 2.16.84 0.1.693756.3.579.2.593 Social History Date Type Detail Facility Tobacco smoking status NDIS Unknown if ever smoked [facility] Work Phone: Start: 1940 Sex Assigned At Female F [facility] Sex Assigned At Sex Assigned At Bir th [employer] [employer] Other Clinical Notes 12-01-2021 to 04-17-2023 Note Date & Type Note Facility 04-17-2023 Evaluation note Encounter Date Diagnosis Assessment Notes Mar, Acute cerebral infarction (ICD-10 - I63.9) Mar, Cerebral atherosclerosis (ICD-10 - I67.2) [facility] [employer] Other 11-01-2023 Evaluation note* Encounter Date Diagnosis Assessment Notes Treatment Notes Treatment Clinical Notes Feb, Acute cerebral infarction (ICD-10 - I63.9) [facility] Other 11-01-2023 Evaluation note* Encounter Date Diagnosis Assessment Notes Treatment Notes Treatment Clinical Notes Feb, Bruit (ICD-10 - R09.89) [facility] Other 10-25-2023 Evaluation note* Encounter Date Diagnosis Assessment Notes Treatment Notes Treatment Clinical Notes Jan, Transient left leg weakness (ICD-10 - R29.898) Jan, Jerking movements of extremities (ICD-10 - R25.2) [facility] Other 10-24-2023 Evaluation note* Encounter Date Diagnosis [...] the risk for cerebrovascular and cardiovascular disease. [facility] Other 09-19-2023 Evaluation note* Encounter Date Diagnosis [...] Pain in left hand (ICD-10 - M79.642) [facility] Other 09-08-2023 NoteCardiology Clinic Note Chief Complaint: [...] in all muscle groups, (more content not included)...[facility]09-08-2023 NotePatient here for 6 mo follow up CAD, hypertension, and hyperlipidemia. Has not been taking aspirin because she doesn't like taking a lot of pills. Says she's only had chest pain once recently. Sees Dr. Smith and had CT chest in September. [facility]04-03-2023 Evaluation note* Encounter Date Diagnosis Assessment Notes Treatment Notes Treatment Clinical Notes Jul, Pulmonary nodule (ICD-10 - R91.1) RUL 10mm nodule - 06/3022Jul, Cough (ICD9-CM - 786.2) Jul, Mild persistent asthma without complication (ICD-10 - J45.30) [facility] Other 03-29-2023 NoteCardiology Clinic Note Chief Complaint: [...] motor function in all (more content not included)...[facility]03-23-2023 NoteCONSULTATION CONSULTATION DATE: 07/20/2022 TO: Dr. Crooks [...] be helping some of her pain symptoms.[id number] Evaluation note* Encounter Date Diagnosis Assessment Notes Treatment Notes Treatment Clinical Notes Jun, Pulmonary nodule (ICD-10 - R91.1) RUL 10mm nodule - 06/3022 [facility] Other 03-20-2023 Evaluation note* Encounter Date Diagnosis [...] use, the patient reduces the risk for VA, CVA, HTN, cardiac dysrhythmias and sudden cardiac [...] mammogram for breast cancer (ICD-10 - Z12.31) [facility] Other 02-08-2023 Evaluation note* Encounter Date Diagnosis Assessment Notes Treatment Notes Treatment Clinical Notes May, ASHD (arterioscleroti c heart disease) (ICD-10 - I25.10) LHC: moderate, nonobstructive coronary disease - 05/2022 [facility] Other 02-08-2023 NotePatient here for follow up [...] light-headedness. All other systems reviewed and are negative.[facility] 06-07-2022 NoteCardiology Clinic Note Chief Complaint: abnormal [...] Value Ventricular Rate 53 Atrial Rate 53 SD Interval 186 QRS DURATION 142 QT Interval 472 QTC CALCULATION(BAZETT) 442 P [place] 29 R-[place] -35 T Wave [place] 59 Impression Sinus bradycardia Left axis deviation Left bundle branch block Abnormal ECG When compared with ECG of 30-NOV-2008 12:01, Premature atrial comple (more content not included)...[facility]01-18-2023 NotePatient: Giovanna Gordon Lcwilber Procedure Information Date/Time: 05/17/22 0830 Procedure: CORONARY ANGIOGRAPHY Location: [facility] / [facility] (Cath) Providers: Nik Gr MD Clinical information reviewed: Allergies Meds OB Status Physical Exam Airway Mallampati: III TM distance: >3 FB Neck ROM: full Cardiovascular Rhythm: regular Rate: normal Dental Pulmonary Abdominal Anesthesia Plan ASA 3 CSE Anesthetic plan and risks discussed with patient. Plan discussed with attending. [facility] Note Chief Complaint: [...] Value Ventricular Rate 53 Atrial Rate 53 SD Interval 186 QRS DURATION 142 QT Interval 472 QTC CALCULATION(BAZETT) 442 P [place] 29 R-[place] -35 T Wave [place] 59 Impression Sinus bradycardia Left axis deviation [...] Plan: -The patient's find (more content not included)...[facility]01-11-2023 NoteNew patient here to re-establish care. She [...] light-headedness. All other systems reviewed and are negative.[facility] 02-23-2022 NoteCONSULTATION CONSULTATION DATE: 02/23/2022 This is [...] will be followed in the clinic thereafter.[facility] [id number] Evaluation note* Encounter Date Diagnosis Assessment Notes [...] in both duran ds (ICD-10 - R20.0) [facility] Other 09-01-2022 NoteCONSULTATION CONSULTATION DATE: 12/29/2021 HISTORY [...] patient is in agreement to move forward.[facility] [id number] Evaluation note* Encounter Date Diagnosis Assessment Notes [...] in both duran ds (ICD-10 - R20.0) [facility] Other 08-04-2022 NoteCONSULTATION CONSULTATION DATE: 12/01/2021 HISTORY [...] followed up in the office post procedure.[facility] CenterEvaluation noteNo assessment information availableSelect [facility] Work Phone: Evaluation noteNo InformationNort [employer] Other History general Narrative - Reported* Type Description Date Medical History Esophageal reflux Medical History seasonal allergies Medical History DIVINA Medical History Hypertension Surgical History APPENEDECTOMY Surgical History HYSTERECTOMY Surgical History SINUS Surgical History LEFT HAND Surgical History HEART CATH Surgical History CHOLECYSTECTOMY [employer] Other [employer] Narrative - Reported* Type Description Date Medical History Esophageal reflux Medical History seasonal allergies Medical History DIV[place] Medical History Hypertension Medical History ASHD (arteriosclerotic heart dis ease) Surgical History APPENEDECTOMY Surgical History HYSTERECTOMY Surgical History SINUS Surgical History LEFT HAND Surgical History HEART CATH Surgical History CHOLECYSTECTOMY Surgical History cardiac catheterization 06/07/22 [employer] Other [facility] general Narrative - Reported* Type Description Date [...] catheterization 06/07/22 Hospitalization History SEE SURGICAL HX [employer] Other Summary Purpose Family History No Family History Records FoundNo Family History Records FoundNo Family History Records FoundNo Family History Records Found Advance Directives Advance Directive Response Recorded Date/ Time Advance Directives No December 21, 2021 12:20pm Chief Complaint and Reason for Visit Chief Complaint M79.641 Additional Source Comments INFORMATION SOURCE (unrecogn ized section and content) DATE CREATED AUTHOR 12/29/2017 [facility] [email or web address] [facility] DATE CREATED AUTHOR AUTHOR'S ORGANIZ ATION 12/25/2021 [facility] DATE CREATED AUTHOR AUTHOR'S ORGANIZ ATION 09/08/2022 [facility] DATE CREATED AUTHOR AUTHOR'S ORGANIZ ATION 01/06/2023 [facility] Care Teams (unrecognized sec tion [...] BE BASED ON THE PRIMARY CLINICAL RECORDS. [facility]. provides no warranty or guarantee of the accuracy or completeness of information in this document.
--- NOTE | 2023-05-17 14:21 | P.CN_ITS ---
Consult Note: HPI Data of Consult Patient: known to practice within the last 3 years Requesting Physician: Kelly Lott NP Primary Care Provider: Ovi Crooks, Consult Narrative Reason for consult: f/u Narrative: Rupali Richardson a pleasant 82 year old female presents for evaluation of chronic low back pain, more so on the right side. Pain today 5/10 ache. Patient recently had a mini stroke, is now on plavix. Pt has found mild benefit from baclofen and gabapentin. Patient reports 70% improvement for 4 hours after bilateral superior gluteal nerve block. Patients son here today to discuss injection therapy and care plan. 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 - Acquired absence of unspecified finger(s) (ICD-10) Numbness and tingling ?R20.0 - Anesthesia of skin (ICD-10) ?R20.2 - Paresthesia of skin (ICD-10) Osteoarthritis ?M19.90 - Unspecified osteoarthritis, unspecified site (ICD-10) Upper back pain ?M54.9 - Dorsalgia, unspecified (ICD-10) Low back pain ?M54.50 - Low back pain, unspecified (ICD-10) Acid reflux ?K21.9 - Gastro-esophageal reflux disease without esophagitis (ICD-10) Obesity ?E66.9 - Obesity, unspecified (ICD-10) Sleep apnea ?G47.30 - Sleep apnea, unspecified (ICD-10) Atrial fibrillation ?I48.91 - Unspecified atrial fibrillation (ICD-10) Surgical History S/P lumbar spine operation ?Z98.890 - Other specified postprocedural states (ICD-10) S/P thoracentesis ?Z98.890 - Other specified postprocedural states (ICD-10) S/P sinus surgery ?Z98.890 - Other specified postprocedural states (ICD-10) H/O hand surgery ?Z98.890 - Other specified postprocedural states (ICD-10) H/O cardiac catheterization ?Z98.890 - Other specified postprocedural states (ICD-10) History of hysterectomy ?Z90.710 - Acquired absence of both cervix and uterus (ICD-10) History of cholecystectomy ?Z90.49 - Acquired absence of other specified parts of digestive tract (ICD- 10) Hx of appendectomy ?Z90.49 - Acquired absence of other specified parts of digestive tract (ICD- 10) Meds Home Medications and Allergies Home Medications Medication Instructions Recorded Confirmed Type atorvastatin 40 mg tablet 40 mg PO DAILY 10/05/22 05/08/23 History baclofen 5 mg tablet 5 mg PO BID 10/05/22 05/08/23 History escitalopram oxalate 10 mg tablet 10 mg PO DAILY 10/05/22 05/08/23 History (Lexapro) gabapentin 100 mg capsule 100 mg PO BID 10/05/22 05/08/23 History isosorbide mononitrate 30 mg 30 mg PO DAILY 10/05/22 05/08/23 History tablet,extended release 24 hr losartan 50 mg tablet 50 mg PO DAILY 10/05/22 05/08/23 History metoprolol tartrate 25 mg tablet 12.5 mg PO DAILY 10/05/22 05/08/23 History oxybutynin chloride 15 mg 15 mg PO DAILY 10/05/22 05/08/23 History tablet,extended release 24 hr clopidogrel .ROUTE DAILY 04/12/23 History Allergies Allergy/AdvReac Type Severity Reaction Status Date / Time midazolam [From Versed] Allergy Unknown Verified 05/08/23 08:46 Exam Constitutional Documenting provider has reviewed patient's vital signs: yes Common normals: no apparent distress, oriented x3, healthy appearing, alert and well nourished General appearance: cooperative [facility] Common normals: normocephalic, hearing grossly normal bilaterally and moist oral mucous membranes Head and scalp: normocephalic Eye Common normals: PERRL Pupil: PERRL Neck & C-Spine Common normals: full ROM General: normal visual inspection Chest Common normals: inspection of chest normal Respiratory Common normals: normal respiratory effort, no retractions and no use of accessory muscles Back & Pelvis Lumbar spine/lower back: ROM limited and straight leg raise negative bilaterally Other: pain with palpation over bilateral superior gluteal nerves pain with michelle/fadir Extremity Common normals: normal to inspection and full ROM Neuro Common normals: oriented x3, CN's II-XII intact bilaterally, moves all extremities, no focal motor deficits, no sensory deficits noted and deep tendon reflexes 2+ bilaterally Sensorium/orientation: alert Gait (neuro): antalgic Motor exam: strength 5/5 throughout and no movement abnormalities noted Psych Common normals: mental status grossly normal, thought process normal, cooperative, affect normal, speech normal and activity/motor behavior normal Speech: normal speech Thought process: normal thought process Results Additional Findings Additional findings: I have checked an OARRS report on this patient today and there are no aberrancies noted in the prescribing history.?? A drug screen was completed and reviewed within the last year, and if there has not been a drug screen completed we ordered one today to monitor higher risk, state monitored pain medication use. As part of providing excellent, safe, comprehensive care, the following was completed at our patient's visit: 1. A medication reconciliation and review to ensure accurate knowledge of current/active medications, including asking our patients to inform us about any [id number] medications or herbal remedies/nutritional supplements/alternative remedies. 2. A review to specifically ensure our patients have had annual screening for: elevated body mass index (BMI), tobacco use, screening for depression, and screening for unhealthy alcohol use. When screening is concerning, patients are provided with education and the specific recommendation to discuss the concerning health issue and treatment options with their primary care provider. Assessment and Plan Assessment and Plan (1) Neuritis: (2) Anticoagulant long-term use: (3) Lumbar radiculopathy: (4) Muscle spasm: Plan reviewed options with patient,has previously had >50% improvement >3 months from caudal NKECHI in the past however recent bilateral superior gluteal nerve block relieved pain 70% and increased functional ability patient would like to proceed with bilateral superior gluteal nerve RFA under fluoroscopy with Dr Herrmann continue current medications will reach out to tree trimming line technician regarding plavix hold for procedure f/u 1 month after procedure
== END 2023-05-17 14:01 | disposition home or self-care (01) ==
LOC: PM 14:00
PROVIDERS: PCP Internal Medicine; Visit Provider Nurse Practitioner
DX: M79.2 Neuralgia and neuritis, unspecified (principal); Z79.01 Long term (current) use of anticoagulants; M54.16 Radiculopathy, lumbar region; M62.838 Other muscle spasm
CPT/HCPCS: G0463

== ENCOUNTER 2023-07-30 08:31 | Outpatient (OUT) | payer MEDICARE, BC, SELFPAY ==
--- NOTE | 2023-07-30 08:35 | MM_ITS ---
Patient Name: GIOVANNA BAUM MR#: [id number] : 1940 Exam Date: 07/30/2023 Ordering Doctor: DR Ovi Crooks D.O. RADIOLOGY REPORT PROCEDURE: MM TOMOSYNTHESIS SCREENING BI COMPARISON: MG MAMM SCREEN 3D SHERICE CAD, 09/14/2021. MG MAMM SCREEN SHERICE W CAD, 07/05/2020. MG MAMM SCREEN SHERICE W CAD, 03/29/2018. MG MAMM SHERICE SCRN W CAD DIG, 08/12/2015. INDICATIONS: screening Calculator Name NCI Breast Cancer Risk Assessment Tool 5 Year Breast Cancer Risk 1.50% Lifetime Breast Cancer Risk 2.30% Personal Breast Cancer No Personal Ovarian Cancer No Treatments None Family Cancers None LOCATION: [facility] BREAST COMPOSITION: Scattered areas fibroglandular density. FINDINGS: DIAGNOSTIC CATEGORY 1--NEGATIVE. RIGHT BREAST: No significant suspicious finding. No significant change has occurred. LEFT BREAST: No significant suspicious finding. No significant change has occurred. RECOMMENDATIONS: ROUTINE MAMMOGRAM AND CLINICAL EVALUATION IN 12 MONTHS. PLEASE NOTE: A NORMAL MAMMOGRAM DOES NOT EXCLUDE THE POSSIBILITY OF BREAST CANCER. A CLINICALLY SUSPICIOUS PALPABLE LUMP SHOULD BE BIOPSIED. Dictated by: Les Harris M.D. on 08/01/2023 at 11:30 Approved by: Les Harris M.D. on 08/01/2023 at 11:32
== END 2023-07-30 08:32 | disposition home or self-care (01) ==
LOC: MAMMO 08:31
PROVIDERS: PCP Internal Medicine; Visit Provider Internal Medicine
DX: Z12.31 Encounter for screening mammogram for malignant neoplasm of breast (principal); I67.2 Cerebral atherosclerosis; I25.10 Atherosclerotic heart disease of native coronary artery without angina pectoris; E78.00 Pure hypercholesterolemia, unspecified; I10 Essential (primary) hypertension
CPT/HCPCS: 77063; 77067

== ENCOUNTER 2023-08-01 11:30 | Outpatient (OUT) | payer MEDICARE, BC, SELFPAY ==
[2023-08-01 13:02] LABS: Alanine Aminotransferase 25 U/L (14-59); Albumin Globulin Ratio 1.2; Albumin Level 3.6 g/dL (3.4-5.0); Alkaline Phosphatase 75 U/L (46-116); Anion Gap 12.3; Aspartate Amino Transferase 26 U/L (15-37); BUN Creatinine Ratio 14.6; Bilirubin Total 0.9 mg/dL (0.2-1.0); Calcium 9.6 mg/dL (8.5-10.1); Carbon Dioxide 29.6 mmol/L (21.0-32.0); Chloride 105 mmol/L (98-107); Chol HDL Ratio 1.9; Cholesterol 126 mg/dL (<=200); Estimated GFR (African America >60 (>=60); Estimated GFR (Non-African Ame 52 (>=60); Globulin 3.1 g/dL; Glucose 82 mg/dL (74-106); HDL Cholesterol 68 mg/dL (40-60); Potassium 3.9 mmol/L (3.5-5.1); Sodium 143 mmol/L (136-145); Total Protein 6.7 g/dL (6.4-8.2); Triglycerides 114 mg/dL (<=150); VLDL CHOLESTEROL 22.8 mg/dL
== END 2023-08-01 11:31 | disposition home or self-care (01) ==
LOC: LAB 11:30
PROVIDERS: PCP Internal Medicine; Visit Provider Internal Medicine
DX: I67.2 Cerebral atherosclerosis (principal); I25.10 Atherosclerotic heart disease of native coronary artery without angina pectoris; I10 Essential (primary) hypertension; E78.00 Pure hypercholesterolemia, unspecified
CPT/HCPCS: 36415; 80053; 80061

== ENCOUNTER 2023-08-02 11:56 | Outpatient (OUT) | payer MEDICARE, BC, SELFPAY ==
--- OUTSIDE RECORDS SUMMARY | 2023-08-02 12:11 | XMS_ITS | CCD ---
Author Organization [facility] Care Team Providers Care Professor Of Biological Sciences Name Role Phone Zahler, Quinn Unavailable Unavailable Zahler, Quinn Unavailable Unavailable Erliner, Quinn Unavailable Unavailable OVI CROOKS~[id number] UNKNOWN Unavailable Unavailable Zahler, Quinn Unavailable Unavailable Zahler, Quinn Unavailable Unavailable Kala, Quinn Unavailable Unavailable OVI CROOKS~[id number] UNKNOWN Unavailable Unavailable MD Brina Morrissey Attending Provider Brina Morrissey Unavailable Ovi Crooks Unavailable DR OVI CROOKS Primary Care Unavailable CRISTOBAL . MARY Admitting Unavailable CRISTOBAL ., MARY Attending Unavailable JESSICA ., DR ELIZABETH Cerna Attending Unavailable JESSICA ., DR ELIZABETH Cerna Consulting Unavailable JESSICA ., DR ELIZABETH Cerna Admitting Unavailable BALL, DR DIOR Primary Care Unavailable HALKER .DAVID Admitting Unavailable HALKER .DAVID Attending Unavailable BALL, DR DIOR Primary Care Unavailable BALL, DR DIOR Admitting Unavailable BALL, DR DIOR Attending Unavailable BALL, DR DIOR Consulting Unavailable VALERIY, DR DIOR Primary Care Unavailable CHRISTIN, DR GÓMEZ Mclean Consulting Unavailable VALERIY, DR DIOR Admitting Unavailable BALL, DR DIOR Primary Care Unavailable BALL, DR DIOR Attending Unavailable BALL, DR DIOR Consulting Unavailable WEST, DR GÓMEZ Mclean Consulting Unavailable VALERIY, DR DIOR Primary Care Unavailable JESSICA ., DR ELIZABETH Cerna Attending Unavailable JESSICA ., DR ELIZABETH Cerna Consulting Unavailable JESSICA ., DR ELIZABETH Cerna Admitting Unavailable VALERIY, DR DIOR Primary Care Unavailable JESSICA ., DR ELIZABETH Cerna Attending Unavailable JESSICA ., DR ELIZABETH Cerna Admitting Unavailable LAKSHMIPATHY ., NARENDDYLAN Admitting Elodia vailable LAKSHMIPATHY ., NARMARIA C Attending Elodia vailable LAKSHMIPATHY ., NARENDDYLAN Consulting Elodia vailable BALL, DR DIOR Primary Care Unavailable CRISTOBAL ., MARY Consulting Unavailable JESSICA ., DR ELIZABETH Cerna Admitting Unavailable JESSICA ., DR ELIZABETH Cerna Attending Unavailable BALL, DR DIOR Primary Care Unavailable JESSICA ., DR ELIZABETH Cerna Attending Unavailable JESSICA ., DR ELIZABETH Cerna Consulting Unavailable JESSICA ., DR ELIZABETH Cerna Admitting Unavailable BALL, DR DIOR Primary Care Unavailable JLUISLLUVIA Consulting Unavailable JESSICA ., DR ELIZABETH Cerna Admitting Unavailable JESSICA ., DR ELIZABETH Cerna Attending Unavailable JESSICA ., DR ELIZABETH Cerna Consulting Unavailable BALL, DR DIOR Primary Care Unavailable CRISTOBAL ., MARY Consulting Unavailable JESSICA ., DR ELIZABETH Cerna Attending Unavailable JESSICA ., DR ELIZABETH Cerna Admitting Unavailable BALL, DR DIOR Primary Care Unavailable LAKSHMIPATHY ., NARENDRANATH Consulting Elodia vailable LAKSHMIPATHY ., NARENDRANATH Admitting Elodia vailable LAKSHMIPATHY ., RUBEN Attending Elodia vailable BALL, DR DIOR Primary Care Unavailable JESSICA ., DR ELIZABETH Cerna Attending Unavailable JESSICA ., DR ELIZABETH Cerna Admitting Unavailable BALL, DR DIOR Primary Care Unavailable JESSICA ., DR ELIZABETH Cerna Consulting Unavailable BALL, DR DIOR Admitting Unavailable BALL, DR DIOR Primary Care Unavailable BALL, DR DIOR Attending Unavailable BALL, DR DIOR Consulting Unavailable NEFCY, PETER Consulting Unavailable CRISTOBAL ., MARY Consulting Unavailable JESSICA ., DR ELIZABETH Cerna Attending Unavailable JESSICA ., DR ELIZABETH Cerna Admitting Unavailable BALL, DR DIOR Primary Care Unavailable BALL, DR DIOR Primary Care Unavailable SAMSA ., GIOVANA Admitting Unavailable SAMSA ., GIOVANA Attending Unavailable SAMSA ., GIOVANA Consulting Unavailable ALGHOTHANI, MOHAMAD Consulting Unavailable ALGHOTHANI, MOHAMAD Admitting Unavailable ALGHOTHANI, JEMAL Attending Unavailable BALL, DR DIOR Primary Care Unavailable BALL, DR DIOR Primary Care Unavailable JESSICA ., DR ELIAZBETH Cerna Attending Unavailable JESSICA ., DR ELIZABETH Cerna Admitting Unavailable HALKER ., DAVID Attending Unavailable HALKER ., DAVID Consulting Unavailable HALKER ., DAVID Admitting Unavailable BALL, DR DIOR Primary Care Unavailable BALL, DR DIOR Admitting Unavailable BALL, DR DIOR Attending Unavailable BALL, DR DIOR Consulting Unavailable BALL, DR DIOR Primary Care Unavailable ZIEBER, DR WILLIAM Alas Consulting Unavailable JESSICA ., DR ELIZABETH Cerna Attending Unavailable BALL, DR DIOR Primary Care Unavailable JESSICA ., DR ELIZABETH Cerna Consulting Unavailable JESSICA ., DR LEMONAL S Admitting Unavailable MARY WHEELER Admitting Unavailable DR OVI CROOKS Primary Care Unavailable MARY WHEELER Attending Unavailable DR OVI CROOKS Consulting Unavailable DR WILLIAM BERMEO Consulting Unavailable MARY WHEELER Consulting Unavailable JEMAL MEDEIROS Attending Unavailable JEMAL MEDEIROS Attending Unavailable JEMAL MEDEIROS Attending Unavailable Allergies Allergy Classification Reported Allergen(s) Allergy Type Date of Onset Reaction(s) Facility (1 source) Midazolam Drug Allergy 10-03-2016 [facility] Repository (1 source) Midazolam; 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: [MIDAZOLAM] Drug Allergy 05-10-2022 [facility] Repository Medications Current Medications Medication Drug Class(es) Dates Sig (Normalized) Sig (Original) acetaminophen 325 mg / HYDROcodone bitartrate 5 mg oral tablet (10 sources) Opioid Agonist Start: 01-19-2023 take 1 tablet by mouth twice daily as needed for pain HYDROcodone-Acetam inophen 5-325 MG 1 tablet Orally bid as needed for pain for 7 days Dec, Active atorvastatin 40 mg oral tablet (15 sources) HMG-CoA Reductase Inhibitor Start: 07-03-2023 take 1 tablet by mouth once daily Atorvastatin Active 1 TAB PO Daily July 03, 2023 1:00am FreeTextSi tablet Orally Once a day; Note: Source Status: Taking; Provider: Valeriy Dior ( ) take 1 tablet by jose th every twenty-four hours Atorvastatin Calcium 40 MG 1 tablet Oral ly Once a day Active 120 actuat budesonide 0.16 mg/actuat / formoterol fumarate 0.0045 mg/actuat metered dose inhaler (13 sources) Corticosteroid, beta2-Adrenergic Agonist Start: 07-19-2023 take 1 puff(s) by inhalation twice daily Budesonide-Formoterol (Symbicort) 160-4.5 mcg/actuation HFA aerosol inhaler Active 2 PUFF INHALATION Twice daily July 19, 2023 12:00am Start: 07-31-2022 take 2 puff(s) by in [...] Jun, Active clopidogrel 75 mg oral tablet (2 sources) P2Y12 Platelet Inhibitor Start: 07-03-2023 take 1 tablet by mouth once daily Clopidogrel Active 75 MG PO Daily July 03, 2023 1:00am FreeTextSi tablet Orally Once a day; Note: Source Status: Start; Provider: Valeriy Quinn Start: 04-17-2023 take 1 tablet by jose th every twenty-four hours Clopidogrel Bisulfate 75 MG 1 tablet Orally Once a day for 30 days Mar, Active CPAP Machine (18 sources) CPAP Machine Act susu escitalopram 10 mg oral tablet (20 sources) Serotonin Reuptake Inhibitor Start: 07-16-2023 Escitalopram Oxalate Active 0 .ROUTE .COMPLEX 90 July 16, 2023 5:05pm TAKE 1 TABLET EVERY DAY Start: 07-03-2023 End: 07-16-2023 take 1 tablet by mouth once daily Escitalopram Oxalate Discontinued 10 MG PO Daily July 03, 2023 1:00am July 16, 2023 5:05pm FreeTextSig: TAKE 1 TABLET EVERY DAY; Note: Source Status: Taking; Provider: Valeriy Dior ( ) Escitalopram Oxa late 10 MG TAKE 1 TABLET EVERY DAY Active gabapentin 100 mg oral capsule (19 sources) Anti-epileptic Agent Start: 07-03-2023 take 1 capsule by mouth at bedtime Gabapentin Active 100 MG PO July 03, 2023 1:00am FreeTextSig: TAKE 1 CAPSULE AT BEDTIME; Note: Source Status: Start; Refills: 3; Qty: 90 Capsule; Provider: Valeriy Dior ( ) Gabapentin 100 M G TAKE 1 CAPSULE AT BEDTIME Active hydroCHLOROthiazide 25 mg oral tablet (17 sources) Thiazide Diuretic Start: 07-03-2023 take 1 tablet by mouth once daily Hydrochlorothiazide Active 25 MG PO Daily July 03, 2023 1:00am FreeTextSig: TAKE 1 TABLET EVERY DAY; Note: Source Status: Taking; Provider: Valeriy Dior ( ) hydroCHLOROthiaz luis 25 MG TAKE 1 TABLET EVERY DAY Active Hydrochlorothiazide-25 mg 25 mg (2 sources) take 1 tablet by mouth once daily Hydrochlorothiazide-25 mg 25 mg 1 tablet Orally Once a day Active 24 hr isosorbide mononitrate 30 mg extended release oral tablet (15 sources) Nitrate Vasodilator Start : 07-02 take 1 tablet by mouth once daily in the morning Isosorbide Mononitrate Active 1 TAB PO Daily July 03, 2023 1:00am FreeTextSi tablet in the morning Orally Once a day; Note: Source Status: Taking; Provider: Valeriy Dior ( ) take 1 tablet by jose th every twenty-four hours Isosorbide Mononitrate ER 30 MG 1 tablet in the morning Orally Once a day Active losartan potassium 50 mg oral tablet (19 sources) Angiotensin 2 Receptor Gustavo Start: 07-03-2023 take 1 tablet by mouth once daily Losartan Active 50 MG PO Daily July 03, 2023 1:00am FreeTextSig: TAKE 1 TABLET EVERY DAY; Note: Source Status: Taking; Provider: Valeriy Dior ( ) Losartan Potassi um 50 MG TAKE 1 TABLET EVERY DAY Active 24 hr metoprolol succinate 25 mg extended release oral tablet (15 sources) beta-Adrenergic Gustavo Start: 07-03-2023 take 1 tablet by mouth once daily Metoprolol Succinate Active 25 MG PO Daily July 03, 2023 1:00am FreeTextSi tablet Orally Once a day; Note: Source Status: Taking; Provider: Valeriy Dior ( ) take 1 tablet by jose th every twenty-four hours Metoprolol Succinate ER 25 MG 1 tablet Orally Once a day Active omeprazole 40 mg delayed release oral capsule (15 sources) Proton Pump Inhibitor Start: 07-03-2023 take 1 capsule by mouth once daily Omeprazole Active 40 MG PO Daily July 03, 2023 1:00am FreeTextSi capsule 30 minutes before morning meal Orally Once a day; Note: Source Status: Taking; Provider: Valeriy Quinn Start: 07-17-2022 take 1 capsule by mo uth once daily Omeprazole 40 MG 1 capsule 30 minutes before morning meal Orally Once a day Jun, Active 24 hr oxybutynin chloride 15 mg extended release oral tablet (15 sources) Cholinergic Muscarinic Antagonist Start: 07-03-2023 take 1 tablet by mouth once daily Oxybutynin Chloride Active 1 TAB PO Daily July 03, 2023 1:00am FreeTextSig: TAKE 1 TABLET EVERY DAY; Note: Source Status: Taking; Refills: 3; Qty: 90 Tablet; Provider: Valeriy Dior ( ) oxyBUTYnin Chlor luis ER 15 MG TAKE 1 TABLET EVERY DAY for 90 Active Completed/Discontinued Medications Medication Drug Class(es) Dates Sig (Normalized) Sig (Original) aspirin 81 mg delayed release oral tablet (16 sources) Platelet Aggregation Inhibitor, Nonsteroidal Anti-inflammatory Drug Start: 07-19-2023 End: 07-20-2023 Aspirin (Karon Low Dose Aspirin) 81 mg tablet,delayed release (DR/EC) Discontinued 81 MG PO Daily July 19, 2023 12:00am July 20, 2023 9:03am Start: 07-03-2023 End: 07-04-2023 take 1 tablet by mouth once daily Aspirin Discontinued 81 MG PO Daily July 03, 2023 1:00am July 04, 2023 10:06am FreeTextSi tablet Orally Once a day; Note: Source Status: Taking; Provider: Valeriy Dior ( ) take 1 tablet by jose th every twenty-four hours Aspirin Adult Low Dose 81 MG 1 tablet Orally Once a day Active baclofen 10 mg oral tablet (7 sources) [...] tablet (7 sources) Proton Pump Inhibitor Start: 10-09-19 13 take 1 tablet by mouth every twenty-four hours Protonix 40 mg 1 tablet Orally daily Sep, Not-Taking raNITIdine 300 mg oral tablet (7 sources) Histamine-2 Receptor Antagonist Start: 11-10-19 15 take 1 tablet by mouth once daily Zantac 300 MG 1 tablet Orally daily Oct, Not-Taking triamcinolone acetonide 40 mg/ml injectable suspension (20 sources) Corticosteroid Start: 12-22-19 Kenalog-40 Dec, 20 mg Tylenol Arthritis Pain 650 MG (7 sources) Tylenol Arthriti s Pain 650 MG as directed Orally Not-Taking Tylenol Arthriti s Pain 650 MG as directed Orally Active Problems Active Problems Problem Classification Problem Date Documented Da te Episodic/Chronic Acute bronchitis (1 source) Acute bronchitis; 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: [Acute bronchitis due to other specified organisms] Episodic Acute cerebrovascular disease (8 sources) Cerebral infarction; 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: [Cerebral infarction, unspecified] Chronic Asthma (16 sources) Uncomplicated mild persistent asthma; 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: [Mild persistent asthma, uncomplicated] Onset: 6 Chronic Cardiac dysrhythmias (2 sources) Paroxysmal atrial fibrillation; 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: [Paroxysmal atrial fibrillation] Chronic Coronary atherosclerosis and other heart disease (20 sources) Coronary arteriosclerosis; 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: [Atherosclerotic heart disease of [place] coronary artery without angina pectoris] Onset: 3 Chronic Disorders of lipid metabolism (20 sources) Hypercholesterolemia; 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: [Pure hypercholesterolemia, unspecified] Onset: 3 Chronic Esophageal disorders (20 sources) Gastroesophageal reflux disease; 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: [GERD [Gastroesophageal reflux disease]] 07-18-2023 Chronic Esophageal disorders (2 sources) Esophageal disorders; [...] ovarian failure] Onset: 6 Chronic Mood disorders (20 sources) Recurrent major depression in full remission; 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: [Major depressive disorder, recurrent, in full remission] Onset: 5 Chronic Mycoses (1 source) Candidiasis of skin and nails; 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: [Candidiasis of skin and nail] Episodic Nutritional deficiencies (1 source) Vitamin D deficiency; 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: [Vitamin D deficiency, unspecified] Onset: 8 Chronic Osteoarthritis (20 sources) Arthritis of bilateral first carpometacarpal joints; 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: [Bilateral primary osteoarthritis of first carpometacarpal joints] Onset: 6 Resolved: 2 Chronic Other aftercare (1 source) Long-term current use of drug therapy; 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: [Other care home (current) drug therapy] Episodic Other and ill-defined cerebrovascular disease (2 sources) Cerebral atherosclerosis; 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: [Cerebral atherosclerosis] 07-18-2023 Chronic Other and ill-defined cerebrovascular disease (2 sources) Cerebral atherosclerosis; 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: [Cerebral atherosclerosis] Chronic Other circulatory disease (1 source) H/O: cardiovascular disease; 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: [Personal history of other diseases of the circulatory system] Episodic Other circulatory disease (1 source) Other specified symptoms and signs involving the circulatory and respiratory systems Episodic Other congenital anomalies (1 source) Congenital spondylolysis of lumbosacral region; 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: [Congenital spondylolysis, lumbosacral region] Onset: 6 Chronic Other connective tissue disease (4 sources) Pain in left hand; 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: [Pain in limb] Onset: 2 Resolved: 2 Episodic Other connective tissue disease (4 sources) Pain in right hand; 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: [Pain in limb] Onset: 2 Resolved: 2 Episodic Other connective tissue disease (2 sources) Other symptoms and signs involving the musculoskeletal system Episodic Other connective tissue disease (2 sources) Cramp and spasm Episodic Other connective tissue disease (2 sources) Hand pain; 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: [Pain in left hand] 07-04-2023 Episodic Other diseases of bladder and urethra [...] of dyspnea] Episodic Other nervous system disorders (19 sources) Carpal tunnel syndrome of right wrist; 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: [Carpal tunnel syndrome, right upper limb] 07-03-2023 Chronic Other nervous system disorders (19 sources) Carpal tunnel syndrome of left wrist; 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: [Carpal tunnel syndrome, left upper limb] 07-03-2023 Chronic Other nervous system disorders (4 sources) Carpal tunnel syndrome, right upper limb; 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: [Carpal tunnel syndrome] Onset: 2 Resolved: 2 Chronic Other nervous system disorders (4 sources) Carpal tunnel syndrome, left upper limb; 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: [Carpal tunnel syndrome] Onset: 2 Resolved: 2 Chronic Other nervous [...] conditions (not mental disorders or infectious disease) (8 sources) Encounter for screening mammogram for malignant neoplasm of breast; 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: [Encounter for screening for diseases of the blood and blood-forming organs and certain disorders involving the immune mechanism] Onset: 7 Episodic Georgina-; endo-; and myocarditis; cardiomyopathy (except that caused by tuberculosis or sexually transmitted disease) (1 source) Acute pericarditis; 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: [Acute pericarditis, unspecified] Episodic Pulmonary heart disease (14 sources) Secondary pulmonary hypertension; 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: [Other secondary pulmonary hypertension] Chronic Residual codes; unclassified (16 sources) Obstructive sleep apnea syndrome; 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: [Obstructive sleep apnea (adult) (pediatric)] Onset: 7 07-18-2023 Chronic Residual codes; unclassified (4 sources) Obstructive sleep apnea (adult) (pediatric); 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: [Obstructive sleep apnea (adult)(pediatric)] Chronic Residual codes; unclassified (1 source) Postmenopausal [...] DS ESPHGTS W/O BLD] Onset: 2 Unclassified (1 source) Other ventricular tachycardia; 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: [...] [Other malaise and fatigue] Onset: 08-05-2015 Episodic Nonspecific chest pain (7 sources) Chest pain, unspecified; 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: [Chest pain] Onset: 04-28-2022 Episodic Other aftercare (1 source) Other terminologist (current) drug therapy; 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: [OTH CUSTODIAL CURRENT DRUG THERAPY] Onset: 09-20-2021 Episodic Other [...] Range Facility Office Visiton 01-05-2023 Follow-up visit [id number] Giovanna Richardson 1940 F Date Provider Department Center 01/05/2023 JEMAL RICHARDS [facility] Family History Problem Relation Age of Onset No Known Problems Mother No Known Problems Father Family Status - Relation Status Age at Mother Father Level of Service:[address]50 [place] OFFICE/OUTPATIENT ESTABLISHED LOW MDM 20-29 MIN Normal [facility] FUNGAL AB QUANTITAIVE DOUBLE IMMUNODIFFUon 07-30-2022 Aspergillus flavus Negative Normal Neg:<1:1 [facility] Comment on above: Performed By: #### F UNGUYI #### [facility] [address] [address] [address] Milena Rosa Aspergillus fumigatus Negative Normal Neg:<1:1 [facility] Comment on above: Performed By: #### F UNGUYI #### [facility] [address] [address] [address] Milena Rosa Aspergillus niger Negative Normal Neg:<1:1 [facility] Comment on above: Performed By: #### F UNGUYI #### [facility] [address] [address] [address] Milena Rosa Blastomyces Negative Normal Neg:<1:1 [facility] Comment on above: Performed By: #### F UNGUYI #### [facility] [address] [address] [address] Milena Rosa HISTOPLASMA GALACTOMANNAN AG URINEon 07-30-2022 Histoplasma Gal'rosales Ag <0.5 Normal <0.5 ng/mL [facility] Comment on above: Performed By: #### H ISTGAL ####[facility] [id number] [address]DrElia Rosa COCCIDIODES IGG/IGM AB BY IF Aon 07-29-2022 Coccidiodes Ab, IgG EIA 0.1 EIA Units Normal [facility] Comment on above: Result Comment: Nega tive <1.0 Indeterminate 1.0-1.4 Positive >1.4 Performed By: #### C OCCABS #### [facility] [address] [place] [address] Dr. Milena Rosa Coccidiodes Ab, IgM, EIA 0.0 EIA Units Normal [facility] Comment on above: Result Comment: Nega tive <1.0 Indeterminate 1.0-1.4 Positive >1.4 Performed By: #### C OCCABS #### [facility] [address] [address] [address] Milena Rosa HISTOPLASMA CAP AB QUANT DID on 07-29-2022 Histoplasma Mycelial CF Ab. Negative Normal Neg:<1:2 [facility] Comment on above: Performed By: #### H ISTDID ####[facility] [id number] [address]DrElia Rosa Histoplasma Yeast CF Ab Negative Normal Neg:<1:2 [facility] Comment on above: Performed By: #### H ISTDID ####[facility] [id number] [address]DrElia Rosa Office Visiton 07-26-2022 Follow-up visit [id number] Giovanna Richardson 1940 F Date Provider Department Center 07/26/2022 Kamilah8JEMAL LYON [facility] Family History Problem Relation Age of Onset No Known Problems Mother No Known Problems Father Family Status - Relation Status Age at Mother Father Level of Service:[address]324 [place] OFFICE/OUTPATIENT ESTABLISHED MOD MDM 30-39 MIN Reason for Visit and Comments: Follow-up [397436] - 6 weeks- Go over Holter monitor results- Discuss medications Normal [facility] CT CHEST WO CONon 07-19-2022 CT [...] mass, effusion, or pneumothorax. VASCULATURE: No abnormality. SAHANTI: Numerous calcified lymph nodes bilaterally. MEDIASTINUM: Numerous [...] by: WILLIAM BERMEO Date: 2022-07-19 14:55 Normal [facility] Office Visiton 06-07-2022 Follow-up visit [id number] Giovanna Richardson 1940 F Date Provider Department Center 06/07/2022 3848-JEMAL MEDEIROS [facility] Family History Problem Relation Age of Onset No Known Problems Mother No Known Problems Father Family Status - Relation Status Age at Mother Father Level of Service:[address]44 [place] OFFICE/OUTPATIENT ESTABLISHED MOD MDM 30-39 MIN Reason for Visit and Comments: Post-Cath [731] Normal [facility] CBC AUTO DIFFon 05-15-2022 BASO # 0.0 103/ul Normal 0.0-0.1 [facility] Comment on above: Performed By: #### C BC #### [facility] [address] [address] [address] Milena Rosa Basophils/100 WBC (Bld) 0.3 % Normal 0.2-2.0 [facility] Comment on above: Performed By: #### C BC #### [facility] [address] [address] [address] Milena Rosa EO # 0.2 103/ul Normal 0.0-0.7 [facility] Comment on above: Performed By: #### C BC #### [facility] [address] [place] [address] Dr. Milena Rosa Eosinophils/100 WBC (Bld) 2.8 % Normal 0.9-7.0 [facility] Comment on above: Performed By: #### C BC #### [facility] [address] [place] [address] Dr. Milena Rosa Erythrocyte distribution width (RBC) [Ratio] 13.3 % Normal 11.0-15.0 [facility] Comment on above: Performed By: #### C BC #### [facility] [address] [place] [address] Dr. Milena Rosa Hematocrit (Bld) [Volume fraction] 38.5 % Normal 36.0-48.0 [facility] Comment on above: Performed By: #### C BC #### [facility] [address] [place] [address] Dr. Milena Rosa Hemoglobin (Bld) [Mass/Vol] 12.6 g/dL Normal 12.0-16.0 [facility] Comment on above: Performed By: #### C BC #### [facility] [address] [place] [address] Dr. Milena Rosa IG # 0.02 10e3/ul Normal 0.00-0.03 [facility] Comment on above: Performed By: #### C BC #### [facility] [address] [place] [address] Dr. Milena Rosa IG % 0.3 % Normal 0.0-0.5 [facility] Comment on above: Performed By: #### C BC #### [facility] [address] [place] [address] Dr. Milena Rosa LYMPH # 2.5 103/ul Normal 1.2-3.8 [facility] Comment on above: Performed By: #### C BC #### [facility] [address] [place] [address] Dr. Milena Rosa Lymphocytes/100 WBC (Bld) 37.6 % Normal 20.5-60.0 [facility] Comment on above: Performed By: #### C BC #### [facility] [address] [place] [address] Dr. Milena Rosa MANUAL DIFF REQ NO Normal [facility] Comment on above: Performed By: #### C BC #### [facility] [address] [place] [address] Dr. Milena Rosa MCH (RBC) [Entitic mass] 29.8 pg Normal 26.7-34.0 [facility] Comment on above: Performed By: #### C BC #### [facility] [address] [place] [address] Dr. Milena Rosa MCHC (RBC) [Mass/Vol] 32.7 g/dL Normal 29.9-35.2 [facility] Comment on above: Performed By: #### C BC #### [facility] [address] [place] [address] Dr. Milena Rosa MCV (RBC) [Entitic vol] 91.0 fL Normal 81.0-99.0 [facility] Comment on above: Performed By: #### C BC #### [facility] [address] [place] [address] Dr. Milena Rosa MONO # 0.7 103/ul Normal 0.3-0.8 [facility] Comment on above: Performed By: #### C BC #### [facility] [address] [place] [address] Dr. Milena Rosa Monocytes/100 WBC (Bld) 10.0 % Normal 1.7-12.0 [facility] Comment on above: Performed By: #### C BC #### [facility] [address] [place] [address] Dr. Milena Rosa NEUT # 3.3 103/ul Normal 1.4-6.5 [facility] Comment on above: Performed By: #### C BC #### [facility] [address] [place] [address] Dr. Milena Rosa Neutrophils/100 WBC (Bld) 49.0 % Normal 43.0-75.0 [facility] Comment on above: Performed By: #### C BC #### [facility] [address] [place] [address] Dr. Milena Rosa Platelet mean volume (Bld) [Entitic vol] 11.5 fL Normal 9.5-13.5 [facility] Comment on above: Performed By: #### C BC #### [facility] [address] [place] [address] Dr. Milena Rosa PLT 201 103/ul Normal 150-450 [facility] Comment on above: Performed By: #### C BC #### [facility] [address] [place] [address] Dr. Milena Rosa RBC 4.23 106/ul Normal 4.20-5.40 [facility] Comment on above: Performed By: #### C BC #### [facility] [address] [place] [address] Dr. Milena Rosa WBC 6.7 103/ul Normal 4.0-11.0 [facility] Comment on above: Performed By: #### C BC #### [facility] [address] [place] [address] Dr. Milena Rosa Covid-19 PCR (CVDTB)on 04-30 SARS-CoV-2 (COVID-19) RNA RADHA+probe Ql (Unsp spec) Not detected Normal NOT DETECTED [facility] Comment on above: Result Comment: This test is not yet approved or cleared by the [place] FDA. When there are no FDA-approved or cleared tests available, and other criteria are met, FDA can make tests available under an emergency access mechanism called an Emergency Use Authorization (EUA). The EUA for this test is supported by the [place] of Health and Human Service's (HHS's) declaration [...] consistent with SARS-CoV-2. Performed By: #### [facility] ####[facility] [address] [place] [address]Dr. Milena Rosa PROF CHEM 8 (BAS METB)on Anion gap [Moles/Vol] 13.1 mmol/L Normal [facility] Comment on above: Performed By: #### B MP #### [facility] [address] [place] [address] Dr. Milena Rosa Calcium [Mass/Vol] 9.8 mg/dL Normal 8.5-10.1 [facility] Comment on above: Performed By: #### B MP #### [facility] [address] [place] [address] Dr. Milena Rosa Chloride [Moles/Vol] 103 mmol/L Normal 98-107 [facility] Comment on above: Performed By: #### B MP #### [facility] [address] [address] [address] Milena Rosa CO2 [Moles/Vol] 26.7 mmol/L Normal 21.0-32.0 [facility] Comment on above: Performed By: #### B MP #### [facility] [address] [address] [address] Milena Rosa Creatinine [Mass/Vol] 0.95 mg/dL Normal 0.55-1.02 [facility] Comment on above: Performed By: #### B MP #### [facility] [address] [address] [address] Milena Rosa EGFR-AF EGYPTIAN >60 Normal >=60 [facility] Comment on above: Performed By: #### B MP #### [facility] [address] [address] [address] Milena Rosa EGFR-NON AF EGYPTIAN 57 mL/min/1.73m2 Critically low >=60 [facility] Comment on above: Performed By: #### B MP #### [facility] [address] [address] [address] Milena Rosa Glucose [Mass/Vol] 93 mg/dL Normal 74-106 [facility] Comment on above: Performed By: #### B MP #### [facility] [address] [address] [address] Milena Rosa Potassium [Moles/Vol] 3.8 mmol/L Normal 3.5-5.1 [facility] Comment on above: Performed By: #### B MP #### [facility] [address] [address] [address] Milena Rosa Sodium [Moles/Vol] 139 mmol/L Normal 136-145 [facility] Comment on above: Performed By: #### B MP #### [facility] [address] [address] [address] Milena Rosa Urea nitrogen [Mass/Vol] 18.0 mg/dL Normal 7.0-18.0 [facility] Comment on above: Performed By: #### B MP #### [facility] [address] [address] [address] Milena Rosa Urea nitrogen/Creatinine [Mass ratio] 18.9 mg/mg Normal [facility] Comment on above: Performed By: #### B MP #### [facility] [address] [address] [address] Milena Rosa NM STRESS/REST MULTIon 04-28 NM STRESS/REST MULTI Patient: GIOVANNA RICHARDSONElia Exam Date: 04/28/2022 : 1940 Gender:F Ordering : DR OVI CROOKS DNinfa Admission #: [id number] Family : Order #: [id number] CLICK HERE TO VIEW EXAM RADIOLOGY REPORT [...] MD on 04/28/2022 at 14:26 Normal [facility] CBC AUTO DIFFon 02-27-2022 BASO # 0.0 103/ul Normal 0.0-0.1 [facility] Comment on above: Performed By: #### C BC ####[facility] [address] [place], [place] [address]VcElia Rosa Basophils/100 WBC (Bld) 0.5 % Normal 0.2-2.0 [facility] Comment on above: Performed By: #### C BC ####[facility] [address] [place] [id number]. Milena Rosa EO # 0.1 103/ul Normal 0.0-0.7 [facility] Comment on above: Performed By: #### C BC ####[facility] [address] [place] [address]Dr. Milena Rosa Eosinophils/100 WBC (Bld) 1.9 % Normal 0.9-7.0 [facility] Comment on above: Performed By: #### C BC ####[facility] [address] [place], [place] [address]Dr. Milena Rosa Erythrocyte distribution width (RBC) [Ratio] 14.3 % Normal 11.0-15.0 [facility] Comment on above: Performed By: #### C BC ####[facility] [address] [place], [place] [address]Dr. Milena Rosa Hematocrit (Bld) [Volume fraction] 37.6 % Normal 36.0-48.0 [facility] Comment on above: Performed By: #### C BC ####[facility] [address] [place], [place] [address]Dr. Milena Rosa Hemoglobin (Bld) [Mass/Vol] 12.6 g/dL Normal 12.0-16.0 [facility] Comment on above: Performed By: #### C BC ####[facility] [address] [place], [place] [address]Dr. Milena Rosa IG # 0.02 10e3/ul Normal 0.00-0.03 [facility] Comment on above: Performed By: #### C BC ####[facility] [address] [place], [place] [address]Dr. Milena Rosa IG % 0.3 % Normal 0.0-0.5 [facility] Comment on above: Performed By: #### C BC ####[facility] [address] [place], [place] [address]Dr. Milena Rosa LYMPH # 2.1 103/ul Normal 1.2-3.8 [facility] Comment on above: Performed By: #### C BC ####[facility] [address] [place] [address]Dr. Milena Rosa Lymphocytes/100 WBC (Bld) 33.2 % Normal 20.5-60.0 [facility] Comment on above: Performed By: #### C BC ####[facility] [address] [place] [address]Dr. Milena Moe MANUAL DIFF REQ NO Normal [facility] Comment on above: Performed By: #### C BC ####[facility] [address] [place] [address]Dr. Milena Rosa MCH (RBC) [Entitic mass] 30.9 pg Normal 26.7-34.0 [facility] Comment on above: Performed By: #### C BC ####[facility] [address] [place] [address]Dr. Milena Moe MCHC (RBC) [Mass/Vol] 33.5 g/dL Normal 29.9-35.2 [facility] Comment on above: Performed By: #### C BC ####[facility] [address] [place], [place] [address]Dr. Milena Moe MCV (RBC) [Entitic vol] 92.2 fL Normal 81.0-99.0 [facility] Comment on above: Performed By: #### C BC ####[facility] [address] [place], [place] [address]Dr. Milena Moe MONO # 0.6 103/ul Normal 0.3-0.8 [facility] Comment on above: Performed By: #### C BC ####[facility] [address] [place] [address]Dr. Milena Moe Monocytes/100 WBC (Bld) 8.9 % Normal 1.7-12.0 [facility] Comment on above: Performed By: #### C BC ####[facility] [address] [place], [place] [address]Dr. Kimberleychinedu Moe NEUT # 3.5 103/ul Normal 1.4-6.5 [facility] Comment on above: Performed By: #### C BC ####[facility] [address] [place], [place] [address]Kn. Milena Rosa Neutrophils/100 WBC (Bld) 55.2 % Normal 43.0-75.0 [facility] Comment on above: Performed By: #### C BC ####[facility] [address] [place], [place] [address]Mi. Milena Rosa Platelet mean volume (Bld) [Entitic vol] 11.6 fL Normal 9.5-13.5 [facility] Comment on above: Performed By: #### C BC ####[facility] [address] [place], [place] [address]Cx. Milena Rosa PLT 217 103/ul Normal 150-450 [facility] Comment on above: Performed By: #### C BC ####[facility] [address] [place], [place] [address]Jw. Milena Rosa RBC 4.08 106/ul Critically low 4.20-5.40 [facility] Comment on above: Performed By: #### C BC ####[facility] [address] [place], [place] [address]Rv. Milena Rosa WBC 6.3 103/ul Normal 4.0-11.0 [facility] Comment on above: Performed By: #### C BC ####[facility] [address] [place], [place] [address]Fi. Milena Rosa ECHOCARDIO M/2D COMPLETEon 1 ECHOCARDIO M/2D COMPLETE Patient: GIOVANNA RICHARDSON Exam Date: 02/27/2022 : 1940 Gender:F Ordering : DR OVI CROOKS D.O. Admission #: [id number] Family : Order #: [id number] CLICK HERE TO VIEW EXAM ECHOCARDIOGRAM REPORT [...] M.D. on 03/01/2022 at 11:51 Approved by: Cralito Christie M.D. on 03/01/2022 at 11:53 Normal [facility] PROF CHEM 8 (BAS METB)on Anion gap [Moles/Vol] 6.1 mmol/L Normal [facility] Comment on above: Performed By: #### B TERESA, TSH #### [facility] [address] [place] [address] Dr. Milena Rosa Calcium [Mass/Vol] 9.0 mg/dL Normal 8.5-10.1 [facility] Comment on above: Performed By: #### Naseem MOORE, TSH #### [facility] [address] [place] [address] Dr. Milena Rosa Chloride [Moles/Vol] 103 mmol/L Normal 98-107 [facility] Comment on above: Performed By: #### Naseem MOORE, TSH #### [facility] [address] [place] [address] Dr. Milena Rosa CO2 [Moles/Vol] 34.4 mmol/L Critically high 21.0-32.0 [facility] Comment on above: Performed By: #### B TERESA, TSH #### [facility] [address] [place] [address] Dr. Milena Rosa Creatinine [Mass/Vol] 1.21 mg/dL Critically high 0.55-1.02 [facility] Comment on above: Performed By: #### Naseem MOORE, TSH #### [facility] [address] [address] [address] Milena Rosa EGFR-AF EGYPTIAN 52 mL/min/1.73m2 Critically low >=60 [facility] Comment on above: Performed By: #### B MP, TSH #### [facility] [address] [place] [address] Dr. Milena Rosa EGFR-NON AF EGYPTIAN 43 mL/min/1.73m2 Critically low >=60 [facility] Comment on above: Performed By: #### B MP, TSH #### [facility] [address] [place] [address] Dr. Milena Rosa Glucose [Mass/Vol] 101 mg/dL Normal 74-106 [facility] Comment on above: Performed By: #### B MP, TSH #### [facility] [address] [place] [address] Dr. Milena Rosa Potassium [Moles/Vol] 3.5 mmol/L Normal 3.5-5.1 [facility] Comment on above: Performed By: #### B TERESA, TSH #### [facility] [address] [place] [address] Dr. Milena Rosa Sodium [Moles/Vol] 140 mmol/L Normal 136-145 [facility] Comment on above: Performed By: #### B TERESA, TSH #### [facility] [address] [place] [address] Dr. Milena Rosa Urea nitrogen [Mass/Vol] 20.0 mg/dL Critically high 7.0-18.0 [facility] Comment on above: Performed By: #### B MP, TSH #### [facility] [address] [place] [address] Dr. Milena Rosa Urea nitrogen/Creatinine [Mass ratio] 16.5 mg/mg Normal [facility] Comment on above: Performed By: #### B MP, TSH #### [facility] [address] [place] [address] Dr. Milena Rosa TSHon 02-27-2022 TSH 1.640 uIU/mL Normal 0.358-3.740 [facility] Comment on above: Performed By: #### B MP, TSH #### [facility] [address] [address] [address] Milena Rosa XR CHEST 2 Von [...] WHITNEY FOURNIER Date: 2022-02-27 13:49 Normal [facility] MRI LSPINE WO CONon 01-10-20 22 MRI LSPINE WO CON EXAMINATION: MRI LSPINE [...] by: WILLIAM BERMEO Date: 2022-01-09 16:20 Normal [facility] XR hand BI 3Von 12-21-2021 XR hand BI 3V [facility] [place] [address] [place] [address] XRay Report Signed Patient: Giovanna Richardson MR#: [id number] : 1940 Acct:[id number] Age/Sex: 81 / F ADM Date: 12/21/21 Loc: [facility] Room: Type: [facility] Attending Dr: Brina Morrissey MD Copies to: [...] Caal Jr., D.O.12/21/2021 2:31 PM Dictation Location: [facility]- Transcribed By: [facility] 12/21/21 1431 Dictated By: Erasmo Caal Jr, DO 12/21/21 1427 Signed By: 12/21/21 1431 [facility] [place] [facility] CBC AUTO DIFFon 09-14-2021 BASO # 0.0 103/ul Normal 0.0-0.1 [facility] Comment on above: Performed By: #### C BC #### [facility] [address] [address] [address] Milena Rosa Basophils/100 WBC (Bld) 0.2 % Normal 0.2-2.0 [facility] Comment on above: Performed By: #### C BC #### [facility] [address] [address] [address] Milena Rosa EO # 0.1 103/ul Normal 0.0-0.7 [facility] Comment on above: Performed By: #### C BC #### [facility] [address] [address] [address] Milena Rosa Eosinophils/100 WBC (Bld) 2.8 % Normal 0.9-7.0 [facility] Comment on above: Performed By: #### C BC #### [facility] [address] [address] [address] Milena Rosa Erythrocyte distribution width (RBC) [Ratio] 13.4 % Normal 11.0-15.0 [facility] Comment on above: Performed By: #### C BC #### [facility] [address] [address] [address] Milena Rosa Hematocrit (Bld) [Volume fraction] 38.2 % Normal 36.0-48.0 [facility] Comment on above: Performed By: #### C BC #### [facility] [address] [address] [address] Milena Rosa Hemoglobin (Bld) [Mass/Vol] 12.5 g/dL Normal 12.0-16.0 [facility] Comment on above: Performed By: #### C BC #### [facility] [address] [place] [address] Dr. Milena Rosa IG # 0.02 10e3/ul Normal 0.00-0.03 [facility] Comment on above: Performed By: #### C BC #### [facility] [address] [place] [address] Dr. Milena Rosa IG % 0.4 % Normal 0.0-0.5 [facility] Comment on above: Performed By: #### C BC #### [facility] [address] [place] [address] Dr. Milena Rosa LYMPH # 2.1 103/ul Normal 1.2-3.8 [facility] Comment on above: Performed By: #### C BC #### [facility] [address] [place] [address] Dr. Milena Rosa Lymphocytes/100 WBC (Bld) 40.5 % Normal 20.5-60.0 [facility] Comment on above: Performed By: #### C BC #### [facility] [address] [place] [address] Dr. Milena Rosa MANUAL DIFF REQ NO Normal [facility] Comment on above: Performed By: #### C BC #### [facility] [address] [place] [address] Dr. Milena Rosa MCH (RBC) [Entitic mass] 29.7 pg Normal 26.7-34.0 [facility] Comment on above: Performed By: #### C BC #### [facility] [address] [place] [address] Dr. Milena Rosa MCHC (RBC) [Mass/Vol] 32.7 g/dL Normal 29.9-35.2 [facility] Comment on above: Performed By: #### C BC #### [facility] [address] [place] [address] Dr. Milena Rosa MCV (RBC) [Entitic vol] 90.7 fL Normal 81.0-99.0 [facility] Comment on above: Performed By: #### C BC #### [facility] [address] [place] [address] Dr. Milena Rosa MONO # 0.6 103/ul Normal 0.3-0.8 [facility] Comment on above: Performed By: #### C BC #### [facility] [address] [place] [address] Dr. Milena Rosa Monocytes/100 WBC (Bld) 12.0 % Normal 1.7-12.0 [facility] Comment on above: Performed By: #### C BC #### [facility] [address] [place] [address] Dr. Milena Rosa NEUT # 2.3 103/ul Normal 1.4-6.5 [facility] Comment on above: Performed By: #### C BC #### [facility] [address] [place] [address] Dr. Milena Rosa Neutrophils/100 WBC (Bld) 44.1 % Normal 43.0-75.0 [facility] Comment on above: Performed By: #### C BC #### [facility] [address] [place] [address] Dr. Milena Rosa Platelet mean volume (Bld) [Entitic vol] 11.7 fL Normal 9.5-13.5 [facility] Comment on above: Performed By: #### C BC #### [facility] [address] [place] [address] Dr. Milena Rosa PLT 206 103/ul Normal 150-450 [facility] Comment on above: Performed By: #### C BC #### [facility] [address] [place] [address] Dr. Milena Rosa RBC 4.21 106/ul Normal 4.20-5.40 [facility] Comment on above: Performed By: #### C BC #### [facility] [address] [place] [address] Dr. Milena Rosa WBC 5.1 103/ul Normal 4.0-11.0 [facility] Comment on above: Performed By: #### C BC #### [facility] [address] [place] [address] Dr. Milena Rosa MG MAMM SCREEN 3D SHERICE CADon 05-18-2022 MG MAMM SCREEN 3D SHERICE CAD Patient: GIOVANNA RICHARDSON Exam Date: 09/14/2021 : 1940 Gender:F Ordering : DR OVI CROOKS D.O. Admission #: [id number] Family : Order #: [id number] CLICK HERE TO VIEW EXAM RADIOLOGY REPORT [...] Treatments None Family Cancers None LOCATION: [facility] BREAST COMPOSITION: Scattered areas fibroglandular density. [...] MD on 09/14/2021 at 10:42 Normal [facility] PROF CHEM 8 (BAS METB)on Anion gap [Moles/Vol] 10.5 mmol/L Normal [facility] Comment on above: Performed By: #### B MP #### [facility] [address] [address] [address] Milena Rosa Calcium [Mass/Vol] 9.5 mg/dL Normal 8.5-10.1 [facility] Comment on above: Performed By: #### B MP #### [facility] [address] [address] [address] Milena Rosa Chloride [Moles/Vol] 101 mmol/L Normal 98-107 [facility] Comment on above: Performed By: #### B MP #### [facility] [address] [address] [address] Milena Rosa CO2 [Moles/Vol] 31.1 mmol/L Normal 21.0-32.0 [facility] Comment on above: Performed By: #### B MP #### [facility] [address] [address] [address] Milena Rosa Creatinine [Mass/Vol] 1.01 mg/dL Normal 0.55-1.02 [facility] Comment on above: Performed By: #### B MP #### [facility] [address] [address] [address] Milena Rosa EGFR-AF EGYPTIAN >60 Normal >=60 [facility] Comment on above: Performed By: #### B MP #### [facility] [address] [address] [address] Milena Rosa EGFR-NON AF EGYPTIAN 53 mL/min/1.73m2 Critically low >=60 [facility] Comment on above: Performed By: #### B MP #### [facility] [address] [address] [address] Milena Rosa Glucose [Mass/Vol] 96 mg/dL Normal 74-106 [facility] Comment on above: Performed By: #### B MP #### [facility] [address] [address] [address] Milena Rosa Potassium [Moles/Vol] 3.6 mmol/L Normal 3.5-5.1 [facility] Comment on above: Performed By: #### B MP #### [facility] [address] [address] [address] Milena Rosa Sodium [Moles/Vol] 139 mmol/L Normal 136-145 [facility] Comment on above: Performed By: #### B MP #### [facility] [address] [address] [address] Milena Rosa Urea nitrogen [Mass/Vol] 20.0 mg/dL Critically high 7.0-18.0 [facility] Comment on above: Performed By: #### B MP #### [facility] [address] [address] [address] Milena Rosa Urea nitrogen/Creatinine [Mass ratio] 19.8 mg/mg Normal [facility] Comment on above: Performed By: #### B MP #### [facility] [address] [address] [address] Milena Rosa Coding Summary.on 12-26-2017 Coding Summary. 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 [...] Shilpa Perez Date Saved: 12/19/2017 09:21 am [facility] Vital Signs Date Time Vital Sign Value Performing Clinician Facility 07-20-2023 09:05-0400 Body height 151.13 cm [facility] 07-20-2023 09:05-0400 Body mass index (BMI) [Ratio] 29.8 kg/m2 [facility] 07-20-2023 09:05-0400 Body weight 68.2 kg [facility] 07-20-2023 09:05-0400 Diastolic blood pressure 71 mm[Hg] [facility] 07-20-2023 09:05-0400 Heart rate 62 /min [facility] 07-20-2023 09:05-0400 Respiratory rate 12 /min [facility] 07-20-2023 09:05-0400 Systolic blood pressure 112 mm[Hg] [facility] 02-20-2023 16:00-0400 Body height Ovi Ball Other [facility] Other 02-20-2023 16:00-0400 Body mass index (BMI) [Ratio] 30.44 kg/m2 Ovi Ball Other [facility] Other 02-20-2023 16:00-0400 Body weight 69.54 kg Ovi Ball Other [facility] Other 02-20-2023 16:00-0400 Diastolic blood pressure 78 mm[Hg] Ovi Ball Other [facility] Other 02-20-2023 16:00-0400 Respiratory rate 12 /min Ovi Ball Other [facility] Other 02-20-2023 16:00-0400 Systolic blood pressure 144 mm[Hg] Ovi Ball Other [facility] Other 07-17-2022 16:30-0400 Body height Ovi Ball Other [facility] Other 07-17-2022 16:30-0400 Body mass index (BMI) [Ratio] 31.33 kg/m2 Ovi Crooks Other [facility] Other 07-17-2022 16:30-0400 Body weight 71.58 kg Ovi Ball Other [facility] [facility] Other 07-17-2022 16:30-0400 Diastolic blood pressure 75 mm[Hg] Ovi Ball Other [facility] Other 07-17-2022 16:30-0400 Respiratory rate 12 /min Ovi Ball Other [facility] [facility] Other 07-17-2022 16:30-0400 Systolic blood pressure 122 mm[Hg] Ovi Ball Other [facility] [facility] Other 12-21-2021 11:00-0400 Body height Brina Morrissey Other [employer] Other Encounters Encounter Date Encounter Type Care Provider Facility Start: 07-20-2023 End: 07-20-2023 ambulatory [facility] Work Phone: Start: 07-20-2023 End: 07-20-2023 Patient encounter procedure [facility] Work Phone: Start: 07-04-2023 End: 07-04-2023 Patient encounter procedure [facility] Work Phone: Start: 04-17-2023 End: 04-17-2023 ambulatory Ovi Crooks Other [employer] Other Start: 04-17-2023 Telephone encounter Ovi Ball [facility] Start: 03-13-2023 End: 03-13-2023 ambulatory Ovi Ball Other [facility] [facility] Other Start: 03-13-2023 Telephone encounter Ovi Crooks [facility] Start: 03-07-2023 End: 03-07-2023 ambulatory Ovi Crooks Other [facility] Other Start: 03-07-2023 Telephone encounter Ovi Crooks [facility] Start: 03-01-2023 End: 03-01-2023 ambulatory Ovi Crooks Other [facility] Other Start: 03-01-2023 Telephone encounter Ovi Crooks [facility] Start: 02-28-2023 End: 02-28-2023 ambulatory Ovi Crooks Other [facility] Other Start: 02-28-2023 Telephone encounter Ovi Crooks [facility] Start: 02-22-2023 End: 02-22-2023 ambulatory Ovi Crooks Other [facility] Networks Other Start: 02-22-2023 Telephone encounter Ovi Crooks [facility] Start: 02-21-2023 End: 02-21-2023 ambulatory Ovi Crooks Other [employer] Other Start: 02-21-2023 Telephone encounter Ovi Crooks [facility] Start: 02-20-2023 End: 02-20-2023 ambulatory Ovi Crooks Other [employer] Other Start: 02-20-2023 Office outpatient vi sit 25 minutes Ovi Crooks [facility] Start: 01-23-2023 End: 01-23-2023 ambulatory Ovi Ball Other [employer] Other Start: 01-23-2023 Telephone encounter Ovi Crooks [facility] Start: 01-16-2023 End: 01-16-2023 ambulatory Brina Morrissey Other [employer] Other Start: 01-16-2023 Office outpatient vi sit 15 minutes Brina Carineey [facility] Start: 01-05-2023 End: 01-05-2023 ambulatory [facility] Start: 11-23-2022 ambulatory DAVID HALCHASE . Facili ty:H1 Start: 09-01-2022 End: 09-02-2022 ambulatory DAVID HALCHASE . Facility:[facility]1 Start: 07-31-2022 End: 07-31-2022 ambulatory Brina Morrissey Other [phone] Other Start: 07-31-2022 Telephone encounter Brina Wright [facility] Start: 07-26-2022 End: 07-27-[address] OVI CROOKS Facility:[facility]1 Start: 07-26-2022 End: 07-26-2022 ambulatory [facility] Start: 07-25-2022 End: 07-25-2022 ambulatory NARENDRANATH LAKSHMIPATHY . Facility:H1 Start: 07-20-2022 End: 07-21-2022 ambulatory NARENDRANATH LAKSHMIPATHY . Facility:[facility]1 Start: 07-19-2022 End: 07-20-[address] OVI CROOKS [facility] Other Start: 07-19-2022 Telephone encounter Ovi Crooks [facility] Start: 07-17-2022 End: 07-17-2022 ambulatory Ovi Crooks Other [employer] Other Start: 07-17-2022 Patient encounter procedure Ovi GUERRERO [facility] Start: 06-20-2022 End: 06-20-[address] ELIZABETH JESSICA . Facility:[facility]1 Start: 06-07-2022 Telephone encounter Brina Wright [facility] Start: 06-07-2022 End: 06-07-2022 ambulatory [facility] [employer] Other Start: 05-20-2022 Encounter for preprocedural laboratory examination [facility] Start: 05-15-2022 End: 05-16-2022 ambulatory JEMAL MEDEIROS Facility:H1 Start: 05-15-2022 End: 05-16-2022 Encounter for preprocedural laboratory examination JEMAL MEDEIROS Facility:[facility]1 Start: 05-09-[address] ELIZABETH JESSICA . [...] 01-18-2022 End: 01-18-2022 ambulatory Brina Morrissey Other [employer] Other Start: 01-18-2022 Office outpatient vi sit 15 minutes Brina Morrissey [facility] Start: 01-09-2022 End: 01-10-2022 ambulatory MARY CRISTOBAL . Facility:H1 Start: 12-29-2021 End: 12-30-2021 ambulatory MARY CRISTOBAL . Facility:[facility]1 Start: 12-21-2021 End: 12-21-2021 ambulatory Brina Morrissey Other [employer] Other Start: 12-21-2021 Office outpatient ne w 30 minutes Brina Morrissey [facility] Start: 12-21-2021 End: 12-21-2021 Patient encounter procedure MD Brina Morrissey Work Phone: [facility] Start: 12-13-2021 End: 12-13-[address] ELIZABETH JESSICA . Facility: Start: 12-01-2021 End: 12-02-2021 ambulatory MARY CRISTOBAL . Facility:[facility]1 Start: 09-14-2021 End: 09-15-[address] OVI CROOKS Facility: Start: 08-17-2021 Adult health examination Brina Morrissey Other [employer] Other Start: 12-25-2017 End: 12-25-2017 Patient encounter Quinn Armendariz Facility[place] Start: 12-18-2017 End: 12-18-2017 Patient encounter Quinn Armendariz Facility[place] Procedures Date Procedure Procedure Detail Performing Clinician Start: 07-26-2022 Follow-up visit Follow-up JEMAL MEDEIROS Start: 12-21-2021 Plain X-ray of castillo Morrissey Work Phone: Start: 03-26-2018 Screening for osteoporosis Brina Ghanshyam Other Start: 08-05-2015 Screening for malign ant neoplasm of colon Brinaishmael Morrissey Other Start: 08-05-2015 Screening mammography C olmikeishmael Morrissey Other Cough 786.2 Brina Morrissey Depression screening Brina Morrissey Other Screening for malign ant neoplasm of breast Brina Morrissey Other Immunizations Immunization Date Immunization Notes Care Provider Fa desirae 02-17-2022 influenza, high dose seasonal, preservative-free Ovi Crooks Other [employer] Other 02-17-2022 influenza virus vaccine, split virus (incl. purified surface antigen) Brina Morrissey Other [employer] Other 02-17-2022 influenza virus vaccine, unspecified formulation [facility] 04-04-2021 COVID-19 Vaccine Pfi zer - Documentation Purposes Only Ovi Crooks Other [facility] 01-17-2021 influenza virus vaccine, split virus (incl. purified surface antigen) Brina Morrissey Other [facility] Other 01-17-2021 influenza virus vaccine, unspecified formulation [facility] 06-17-2020 COVID-19 Vaccine Pfi zer - Documentation Purposes Only Ovi Crooks Other [facility] 05-27-2020 COVID-19 Vaccine Moderna - Documentation Purposes Only Brina Morrissey Other [facility] 05-27-2020 COVID-19 Vaccine Pfi zer - Documentation Purposes Only Ovi Crooks Other [facility] 03-10-2020 influenza virus vaccine, split virus (incl. purified surface antigen) Brina Morrissey Other [facility] Other 03-10-2020 influenza virus vaccine, unspecified formulation [facility] 03-07-2019 influenza virus vaccine, split virus (incl. purified surface antigen) Brina Morrissey Other [facility] Other 03-07-2019 influenza virus vaccine, unspecified formulation [facility] 03-27-2018 influenza virus vaccine, split virus (incl. purified surface antigen) Brina Morrissey Other [facility] Other 03-27-2018 influenza virus vaccine, unspecified formulation [facility] 03-16-2017 pneumococcal Conjuga te, unspecified formulation; 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: [Need for prophylactic vaccination against Streptococcus pneumoniae (pneumococcus)] Brina Morrissey Other [facility] Other 03-16-2017 pneumococcal polysaccharide vaccine, 23 valent Ovi Crooks Other [facility] 11-17-2016 pneumococcal conjuga te vaccine, 13 valent Ovi Crooks Other [facility] 02-09-2016 influenza virus vaccine, split virus (incl. purified surface antigen) Brina Morrissey Other [employer] Other 02-09-2016 influenza virus vaccine, unspecified formulation [facility] Payers Date Payer Category Payer Medicare [id number] 1957 Medicare [id number] 1957 Unknown [id number] 1940 Unknown [id number] 2.16.84 0.1.500531.3.579.2.593 1940 Unknown [id number] 2.16.84 0.1.192461.3.579.2.593 1942 Unknown [id number] 2.16.84 0.1.717889.3.579.2.593 1942 Unknown [id number] 2.16.84 0.1.661890.3.579.2.593 1942 Unknown [id number] 2.16.84 0.1.430321.3.579.2.593 1942 Unknown [id number] 2.16.84 0.1.499004.3.579.2.593 1942 Unknown [id number] 2.16.84 0.1.595522.3.579.2.593 1942 Unknown [id number] 2.16.84 0.1.833362.3.579.2.593 1942 Unknown [id number] 2.16.84 0.1.206565.3.579.2.593 1942 Unknown [id number] 2.16.84 0.1.863927.3.579.2.593 1942 Unknown [id number] 2.16.84 0.1.060508.3.579.2.593 1942 Unknown [id number] 2.16.84 0.1.299654.3.579.2.593 1942 Unknown [id number] 2.16.84 0.1.247841.3.579.2.593 1942 Unknown [id number] 2.16.84 0.1.753069.3.579.2.593 1942 Unknown [id number] 2.16.84 0.1.980833.3.579.2.593 1942 Unknown [id number] 2.16.84 0.1.974334.3.579.2.593 1942 Unknown [id number] 2.16.84 0.1.157443.3.579.2.593 1942 Unknown [id number] 2.16.84 0.1.970592.3.579.2.593 1942 Unknown [id number] 2.16.84 0.1.946880.3.579.2.593 1942 Unknown [id number] 2.16.84 0.1.384890.3.579.2.593 1942 Unknown [id number] 2.16.84 0.1.546283.3.579.2.593 1942 Unknown [id number] 2.16.84 0.1.778953.3.579.2.593 1942 Unknown [id number] 2.16.84 0.1.211670.3.579.2.593 1942 Unknown [id number] 2.16.84 0.1.850438.3.579.2.593 Social History Date Type Detail Facility Tobacco smoking status DCIS Unknown if ever smoked [facility] Work Phone: Start: 1940 Sex Assigned At Female F [facility] Sex Assigned At Sex Assigned At Bir th [facility] Other Start: 06-28-2023 Tobacco smoking status NHIS Never smoked tobacco (finding) [facility] Clinical Notes 12-01-2021 to 05-18-2023 Note Date & Type Note Facility 05-18-2023 Note We received fax from [facility] requesting patient hold her Plavix x7 prior to a procedure with them. I looked in her medication list and did not see it listed. Also noted her CAD was non obstructive . I called patient to see if she was actually taking Plavix. She said Dr. Lennon (neurology) put her on it in Jan/Feb 2023 for TIA. I faxed back the request to Pain Mgmt and asked them to contact Dr. Arriola for clearance. [facility] 04-17-2023 Evaluation note Encounter Date Diagnosis Assessment Notes Mar, Acute cerebral infarction (ICD-10 - I63.9) Mar, Cerebral atherosclerosis (ICD-10 - I67.2) [employer] Other 11-01-2023 Evaluation note* Encounter Date Diagnosis Assessment Notes Treatment Notes Treatment Clinical Notes Feb, Acute cerebral infarction (ICD-10 - I63.9) [employer] Other 11-01-2023 Evaluation note* Encounter Date Diagnosis Assessment Notes Treatment Notes Treatment Clinical Notes Feb, Bruit (ICD-10 - R09.89) [employer] Other 10-25-2023 Evaluation note* Encounter Date Diagnosis Assessment Notes Treatment Notes Treatment Clinical Notes Jan, Transient left leg weakness (ICD-10 - R29.898) Jan, Jerking movements of extremities (ICD-10 - R25.2) [employer] Other 10-24-2023 Evaluation note* Encounter Date Diagnosis [...] the risk for cerebrovascular and cardiovascular disease. [employer] Other 09-19-2023 Evaluation note* Encounter Date Diagnosis [...] Pain in left hand (ICD-10 - M79.642) [employer] Other 09-08-2023 NoteCardiology Clinic Note Chief Complaint: [...] in all muscle groups, (more content not included)...[facility]09-08-2023 NotePatient here for 6 mo follow up CAD, hypertension, and hyperlipidemia. Has not been taking aspirin because she doesn't like taking a lot of pills. Says she's only had chest pain once recently. Sees Dr. Smith and had CT chest in September. [facility]04-03-2023 Evaluation note* Encounter Date Diagnosis Assessment Notes Treatment Notes Treatment Clinical Notes Jul, Pulmonary nodule (ICD-10 - R91.1) RUL 10mm nodule - 06/3022Jul, Cough (ICD9-CM - 786.2) Jul, Mild persistent asthma without complication (ICD-10 - J45.30) [employer] Other 03-29-2023 NoteCardiology Clinic Note Chief Complaint: [...] motor function in all (more content not included)...[facility]03-23-2023 NoteCONSULTATION CONSULTATION DATE: 07/20/2022 TO: Dr. [...] be helping some of her pain symptoms.[id number] Evaluation [facility]* Encounter Date Diagnosis Assessment Notes Treatment Notes Treatment Clinical Notes Jun, Pulmonary nodule (ICD-10 - R91.1) RUL 10mm nodule - 06/3022 [employer] Other 03-20-2023 Evaluation note* Encounter Date Diagnosis [...] use, the patient reduces the risk for NH, CVA, HTN, cardiac dysrhythmias and sudden cardiac [...] mammogram for breast cancer (ICD-10 - Z12.31) [employer] Other 02-08-2023 Evaluation note* Encounter Date Diagnosis Assessment Notes Treatment Notes Treatment Clinical Notes May, ASHD (arterioscleroti c heart disease) (ICD-10 - I25.10) LHC: moderate, nonobstructive coronary disease - 05/2022 [employer] Other 02-08-2023 NotePatient here for follow up [...] light-headedness. All other systems reviewed and are negative.[facility] 06-07-2022 NoteCardiology Clinic Note Chief Complaint: [...] Value Ventricular Rate 53 Atrial Rate 53 [place] Interval 186 QRS DURATION 142 QT Interval 472 QTC CALCULATION(BAZETT) 442 P [place] 29 R-[place] -35 T Wave [place] 59 Impression Sinus bradycardia Left axis deviation Left bundle branch block Abnormal ECG When compared with ECG of 30-NOV-2008 12:01, Premature atrial comple (more content not included)...[facility]10-27-2022 NoteCONSULTATION CONSULTATION DATE: 02/23/2022 This is a [...] will be followed in the clinic thereafter.[facility] [id number] Evaluation note* Encounter Date Diagnosis Assessment Notes [...] in both duran ds (ICD-10 - R20.0) [employer] Other 09-01-2022 NoteCONSULTATION CONSULTATION DATE: 12/29/2021 HISTORY [...] patient is in agreement to move forward.[facility] [id number] Evaluation note* Encounter Date Diagnosis Assessment Notes [...] in both duran ds (ICD-10 - R20.0) [employer] Other 08-04-2022 NoteCONSULTATION CONSULTATION DATE: 12/01/2021 HISTORY [...] followed up in the office post procedure.[facility] Hospital[facility] noteNo assessment information [facility] Work Phone: Evaluation noteNo [facility] Other Evaluation note* Diagnosis Onset Date Resolution Status Arthritis of carpometacarpal (CMC) joint of left thumb acute Arthritis of carpometacarpal (CMC) joint of right thumb acute Carpal tunnel syndrome, left acute Carpal tunnel syndrome, right acute Left hand pain acute Right hand pain acute ASHD (arteriosclerotic heart disease) acute Cerebral atherosclerosis acu te GERD (gastroesophageal reflux disease) acute Lumbar spondylosis acute Major depressive disorder, r ecurrent, in full remission acute Mild persistent asthma without complication acute Obstructive sleep apnea acut e Primary hypertension acute Medicare annual wellness visit, subsequent noneactive Screening mammogram for breast cancer noneactive [facility] Work Phone: History general Narrative - Reported* Type Description Date Medical History Esophageal reflux Medical History seasonal allergies Medical History DIVINA Medical History Hypertension Surgical History APPENEDECTOMY Surgical History HYSTERECTOMY Surgical History SINUS Surgical History LEFT HAND Surgical History HEART CATH Surgical History CHOLECYSTECTOMY [facility] Other History general Narrative - Reported* Type Description Date Medical History Esophageal reflux Medical History seasonal allergies Medical History DIV[place] Medical History Hypertension Medical History ASHD (arteriosclerotic heart dis ease) Surgical History APPENEDECTOMY Surgical History HYSTERECTOMY Surgical History SINUS Surgical History LEFT HAND Surgical History HEART CATH Surgical History CHOLECYSTECTOMY Surgical History cardiac catheterization 06/07/22 [employer] Other History general Narrative - Reported* Type [...] catheterization 06/07/22 Hospitalization History SEE SURGICAL HX [employer] Other Summary Purpose Family History Relationship Condition Age at Onset Recorded Date/T urvashi sister Hypertension Unknown Diabetes mellitus Unknown Advance Directives Advance Directive Response Recorded Date/ Time Advance Directives No December 21, 2021 12:20pm Chief Complaint and Reason for Visit Chief Complaint M79.641 Chief Complaint OP SP SHERICE HAND PAIN Medicare Wellness Reason for Visit Arthritis of carpome tacarpal (CMC) joint of left thumb Arthritis of carpometacarpal (CMC) joint of right thumb Carpal tunnel syndrome, left Carpal tunnel syndrome, right Left hand pain Right hand pain ASHD (arteriosclerotic heart disease) Cerebral atherosclerosis GERD (gastroesophageal reflux disease) Lumbar spondylosis Major depressive disorder, recurrent, in full remission Mild persistent asthma without complication Obstructive sleep apnea Primary hypertension Medicare annual wellness visit, subsequent Screening mammogram for breast cancer Additional Source Comments INFORMATION SOURCE (unrecogn ized section and content) DATE CREATED AUTHOR [facility]29/[facility] DATE CREATED AUTHOR AUTHOR'S ORGANIZ ATION 12/25/2021 [facility] DATE CREATED AUTHOR AUTHOR'S ORGANIZ ATION 09/08/2022 [facility] DATE CREATED AUTHOR AUTHOR'S ORGANIZ ATION 05/19/2023 [facility] Care Teams (unrecognized sec tion and content) Team Status: Inactive Member Role Status Dates Brina Morrissey MD Attending Provider Active Team Status: Active Member Role Status Dates Ovi Crooks DO Primary Care Provider Active Team Status: Inactive Member Role Status Dates Ovi Crooks DO Primary Care Provider Active Start: July 04, 2023 End: July 04, 2023 Brina Morrissey MD Attending Provider Active Start: July 04, 2023 End: July 04, 2023 Team Status: Inactive Member Role Status Dates Ovi Crooks DO Primary Care Provide r, Attending Provider Active Start: July 20, 2023 End: July 20, 2023 Goals (unrecognized section and content) Goals may be documented in a n alternate sectionNo InformationNo InformationNo InformationNo InformationNo InformationNo InformationNo InformationNo InformationNo InformationNo InformationNo InformationNo InformationNo InformationNo InformationNo InformationNo InformationNo InformationNo InformationGoals may be documented in an alternate section REASON FOR VISIT (unrecogniz ed section and [...] BE BASED ON THE PRIMARY CLINICAL RECORDS. [facility]. provides no warranty or guarantee of the accuracy or completeness of information in this document.
[2023-08-02 12:41] LABS: Basophils Percent Auto 0.3 % (0.2-2.0); Eosinophils Absolute Auto 0.2 10^3/uL (0.0-0.7); Eosinophils Percent Auto 3.1 % (0.9-7.0); Hematocrit 37.7 % (36.0-48.0); Hemoglobin 11.8 g/dL (12.0-16.0); Immature Granulocytes Abs Auto 0.02 10^3/uL (0.00-0.03); Immature Granulocytes Pct Auto 0.3 % (0.0-0.5); Lymphocytes Absolute Auto 2.1 10^3/uL (1.2-3.8); Lymphocytes Percent Auto 34.3 % (20.5-60.0); Mean Corpuscular HGB Conc 31.3 g/dL (29.9-35.2); Mean Corpuscular Volume 92.6 fL (81.0-99.0); Mean Platelet Volume 11.6 fL (9.5-13.5); Monocytes Absolute Auto 0.6 10^3/uL (0.3-0.8); Monocytes Percent Auto 10.1 % (1.7-12.0); Neutrophils Absolute Auto 3.1 10^3/uL (1.4-6.5); Neutrophils Percent Auto 51.9 % (43.0-75.0); Platelet Count 191 10^3/uL (150-450); Red Blood Count 4.07 10^6/uL (4.20-5.40)
== END 2023-08-02 11:57 | disposition home or self-care (01) ==
LOC: LAB 11:58
PROVIDERS: PCP Internal Medicine; Visit Provider Internal Medicine
DX: I67.2 Cerebral atherosclerosis (principal); I25.10 Atherosclerotic heart disease of native coronary artery without angina pectoris; I10 Essential (primary) hypertension; E78.00 Pure hypercholesterolemia, unspecified
CPT/HCPCS: 36415; 85025

== ENCOUNTER 2023-09-13 12:45 | Outpatient (OUT) | payer MEDICARE, BC, SELFPAY ==
--- NOTE | 2023-09-13 12:52 | FL_ITS ---
The [address] [address] Patient Name: GIOVANNA BAUM MRN: [id number] date: 1940 Sex: F Assigned Patient Location: [place] Current [place] Location[place] Accession/Order Number: [id number] Exam Date: 09/13/2023 13:00 Report Date: 09/13/2023 14:07 At the request of: TORRES ROSA Procedure: FL modified barium swallow EXAMINATION: FL modified barium swallow HISTORY: PHARYNGOESOPHAGEAL DYSPHAGIA COMPARISON: No relevant comparison available. TECHNIQUE: A swallowing evaluation was performed with fluoroscopy in the usual manner. Standard level fluoroscopic mode of operation utilized. FINDINGS: ORAL PHASE: Normal deglutition. PHARYNGEAL PHASE: Slightly early spillage of thin and nectar thickened liquid over the base of the tongue and slightly delayed/limited closure of the epiglottis. ASPIRATION: No aspiration or penetration. STRUCTURE: Normal. No visible obstruction, stricture, or dilatation. OTHER: Patient swallowed a barium tablet without difficulty or delay, but describes feeling like the tablet was stuck within her throat. FL/FL modified barium swallow IMPRESSION: 1. No aspiration or penetration despite less than optimal closure of the epiglottis and early spillage of contrast over base of tongue. Please see speech pathologist's report for further discussion. Electronically authenticated by: WILLIAM BERMEO Date: 09/13/2023 14:07
--- OUTSIDE RECORDS SUMMARY | 2023-09-13 13:08 | XMS_ITS | CCD ---
Author Organization [facility] Care Team Providers Care Behavioral Assistant Name Role Phone Zahler, Quinn Unavailable Unavailable Zahler, Quinn Unavailable Unavailable Erliner, Quinn Unavailable Unavailable OVI CROOKS~[id number] UNKNOWN Unavailable Unavailable Zahler, Quinn Unavailable Unavailable Zahler, Quinn Unavailable Unavailable Kala, Quinn Unavailable Unavailable OVI CROOKS~[id number] UNKNOWN Unavailable Unavailable MD Brina Morrissey Attending Provider [phone] Brina Morrissey Unavailable Ovi Crooks Unavailable DR OVI CROOKS Primary Care Unavailable CRISTOBAL .MARY Admitting Unavailable CRISTOBAL ., MARY Attending Unavailable JESSICA ., DR ELIZABETH Cerna Attending Unavailable JESSICA ., DR ELIZABETH Cerna Consulting Unavailable JESSICA ., DR ELIZABETH Cerna Admitting Unavailable VALERIY, DR DIOR Primary Care Unavailable HALKER .DAVID Admitting Unavailable HALKER .DAVID Attending Unavailable VALERIY, DR DIOR Primary Care Unavailable VALERIY, DR DIOR Admitting Unavailable BALL, DR DIOR Attending Unavailable BALL, DR DIOR Consulting Unavailable VALERIY, DR DIOR Primary Care Unavailable CHRISTIN, DR GÓMEZ Mclean Consulting Unavailable VALERIY, DR DIOR Admitting Unavailable VALERIY, DR DIOR Primary Care Unavailable VALERIY, DR DIOR Attending Unavailable BALL, DR DIOR [...] ., NARENDRANATH Consulting Elodia vailable BALL, DR DIOR Primary [...] ., NARENDRANATH Consulting Elodia vailable LAKSHMIPATHY ., NARENDDREWATH Admitting Elodia vailable LAKSHMIPATHY ., RUBEN Attending [...] Consulting Unavailable ALGHOTHANI, MOHAMAD Admitting Unavailable ALGHOTHANI, MOHQUINTEND Attending Unavailable BALL, DR DIOR Primary Care [...] JESSICA ., DR ELIZABETH Cerna Consulting Unavailable DR ELIZABETH LEE Admitting Unavailable MARY WHEELER Admitting Unavailable DR OVI CROOKS Primary Care Unavailable MARY WHEELER Attending Unavailable DR OVI CROOKS Consulting Unavailable DR WILLIAM BERMEO Consulting Unavailable MARY WHEELER Consulting Unavailable JEMAL MEDEIROS Attending Unavailable JEMAL MEDEIROS Attending Unavailable JEMAL MEDEIROS Attending Unavailable TORRES ROSA Attending Unavailable Allergies Allergy Classification Reported Allergen(s) Allergy Type Date of Onset Reaction(s) Facility (1 source) Midazolam Drug Allergy 10-03-2016 [facility] Repository (1 source) Midazolam; 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: [MIDAZOLAM] Drug Allergy 05-10-2022 [facility] Repository Medications Current Medications Medication [...] Start: 07-17-2022 take 1 capsule by mo [facility] once daily Omeprazole 40 MG 1 capsule [...] Dior ( ) take 1 tablet by [facility] every twenty-four hours Aspirin Adult Low Dose [...] Coronary arteriosclerosis; 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: [Atherosclerotic heart disease of [place] coronary artery without angina pectoris] Onset: 3 [...] current use of drug therapy; 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: [Other detention (current) drug therapy] Episodic Other and ill-defined [...] 04-28-2022 Episodic Other aftercare (1 source) 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; 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: [OTH HALF-WAY CURRENT [...] Range Facility Office Visiton 01-05-2023 Follow-up visit [id number] Giovanna Richardson 1940 F Date Provider Department Center 01/05/2023 NelidaJEMAL MEDEIROS [facility] Family History Problem Relation Age of Onset No Known Problems Mother No Known Problems Father Family Status - Relation Status Age at Mother Father Level of Service:38925 [place] OFFICE/OUTPATIENT ESTABLISHED LOW MDM 20-29 MIN Normal [facility] FUNGAL AB QUANTITAIVE DOUBLE IMMUNODIFFUon 07-30-2022 Aspergillus flavus Negative Normal Neg:<1:1 [facility] Comment on above: Performed By: #### F UNGUYI #### [facility] [address] [address] [address] Milena Rosa Aspergillus fumigatus Negative Normal Neg:<1:1 [facility] Comment on above: Performed By: #### F UNGUYI #### [facility] [address] [address] [address] Milena Rosa Aspergillus niger Negative Normal Neg:<1:1 [facility] Comment on above: Performed By: #### F UNGUYI #### [facility] [address] [address] [address] Milena Rosa Blastomyces Negative Normal Neg:<1:1 [facility] Comment on above: Performed By: #### F UNGUYI #### [facility] [address] [address] [address] Milena Rosa HISTOPLASMA GALACTOMANNAN AG URINEon 07-30-2022 Histoplasma Gal'rosales Ag <0.5 Normal <0.5 ng/mL [facility] Comment on above: Performed By: #### H ISTGAL ####[facility] [address] [address]DrElia Rosa COCCIDIODES IGG/IGM AB BY IF Aon 07-29-2022 Coccidiodes Ab, IgG EIA 0.1 EIA Units Normal [facility] Comment on above: Result Comment: Nega tive <1.0 Indeterminate 1.0-1.4 Positive >1.4 Performed By: #### C OCCABS #### [facility] [address] [address] [address] Milena Rosa Coccidiodes Ab, IgM, EIA 0.0 EIA Units Normal [facility] Comment on above: Result Comment: Nega tive <1.0 Indeterminate 1.0-1.4 Positive >1.4 Performed By: #### C OCCABS #### [facility] [address] [address] [address] Milena Rosa HISTOPLASMA CAP AB QUANT DID on 07-29-2022 Histoplasma Mycelial CF Ab. Negative Normal Neg:<1:2 [facility] Comment on above: Performed By: #### H ISTDID ####[facility] [address] [address]DrElia Rosa Histoplasma Yeast CF Ab Negative Normal Neg:<1:2 [facility] Comment on above: Performed By: #### H ISTDID ####[facility] [address] [address]Dr. Milena Rosa Office Visiton 07-26-2022 Follow-up visit [id number] Giovanna Richardson 1940 F Date Provider Department Center 07/26/2022 JEMAL RICHARDS [facility] Family History Problem Relation Age of Onset No Known Problems Mother No Known Problems Father Family Status - Relation Status Age at Mother Father Level of Service:66593 [place] OFFICE/OUTPATIENT ESTABLISHED MOD MDM 30-39 MIN Reason for Visit and Comments: Follow-up [904482] - 6 weeks- Go over Holter monitor results- Discuss medications Normal [facility] CT CHEST WO CONon 07-19-2022 [...] by: WILLIAM BERMEO Date: 2022-07-19 14:55 Normal [facility] Office Visiton 06-07-2022 Follow-up visit [id number] Giovanna Richardson 1940 F Date Provider Department Center 06/07/2022 3848-JEMAL MEDEIROS [facility] Family History Problem Relation Age of Onset No Known Problems Mother No Known Problems Father Family Status - Relation Status Age at Mother Father Level of Service:81973 [place] OFFICE/OUTPATIENT ESTABLISHED MOD MDM 30-39 MIN Reason for Visit and Comments: Post-Cath [731] Normal [facility] CBC AUTO DIFFon 05-15-2022 BASO # 0.0 103/ul Normal 0.0-0.1 [facility] Comment on above: Performed By: #### C BC #### [facility] [address] [address] [address] Milena Rosa Basophils/100 WBC (Bld) 0.3 % Normal 0.2-2.0 [facility] Comment on above: Performed By: #### C BC #### [facility] [address] [address] [address] Milena Rosa EO # 0.2 103/ul Normal 0.0-0.7 [facility] Comment on above: Performed By: #### C BC #### [facility] [address] [place] [address] Dr. Milena Rosa Eosinophils/100 WBC (Bld) 2.8 % Normal 0.9-7.0 [facility] Comment on above: Performed By: #### C BC #### [facility] [address] [address] [address] Milena Rosa Erythrocyte distribution width (RBC) [Ratio] 13.3 % Normal 11.0-15.0 [facility] Comment on above: Performed By: #### C BC #### [facility] [address] [place] [address] Dr. Milena Rosa Hematocrit (Bld) [Volume fraction] 38.5 % Normal 36.0-48.0 [facility] Comment on above: Performed By: #### C BC #### [facility] [address] [address] [address] Milena Rosa Hemoglobin (Bld) [Mass/Vol] 12.6 g/dL Normal 12.0-16.0 [facility] Comment on above: Performed By: #### C BC #### [facility] [address] [place] [address] Dr. Milena Rosa IG # 0.02 10e3/ul Normal 0.00-0.03 [facility] Comment on above: Performed By: #### C BC #### [facility] [address] [place] [address] Dr. Milena Rosa IG % 0.3 % Normal 0.0-0.5 [facility] Comment on above: Performed By: #### C BC #### [facility] [address] [place] [address] Dr. Milena Rosa LYMPH # 2.5 103/ul Normal 1.2-3.8 [facility] Comment on above: Performed By: #### C BC #### [facility] [address] [place] [address] Dr. Milena Rosa Lymphocytes/100 WBC (Bld) 37.6 % Normal 20.5-60.0 [facility] Comment on above: Performed By: #### C BC #### [facility] [address] [place] [address] Dr. Milena Rosa MANUAL DIFF REQ NO Normal [facility] Comment on above: Performed By: #### C BC #### [facility] [address] [place] [address] Dr. Milena Rosa MCH (RBC) [Entitic mass] 29.8 pg Normal 26.7-34.0 [facility] Comment on above: Performed By: #### C BC #### [facility] [address] [place] [address] Dr. Milena Rosa MCHC (RBC) [Mass/Vol] 32.7 g/dL Normal 29.9-35.2 [facility] Comment on above: Performed By: #### C BC #### [facility] [address] [place] [address] Dr. Milena Rosa MCV (RBC) [Entitic vol] 91.0 fL Normal 81.0-99.0 [facility] Comment on above: Performed By: #### C BC #### [facility] [address] [place] [address] Dr. Milena Rosa MONO # 0.7 103/ul Normal 0.3-0.8 [facility] Comment on above: Performed By: #### C BC #### [facility] [address] [place] [address] Dr. Milena Rosa Monocytes/100 WBC (Bld) 10.0 % Normal 1.7-12.0 [facility] Comment on above: Performed By: #### C BC #### [facility] [address] [place] [address] Dr. Milena Rosa NEUT # 3.3 103/ul Normal 1.4-6.5 [facility] Comment on above: Performed By: #### C BC #### [facility] [address] [place] [address] Dr. Milena Rosa Neutrophils/100 WBC (Bld) 49.0 % Normal 43.0-75.0 [facility] Comment on above: Performed By: #### C BC #### [facility] [address] [place] [address] Dr. Milena Rosa Platelet mean volume (Bld) [Entitic vol] 11.5 fL Normal 9.5-13.5 [facility] Comment on above: Performed By: #### C BC #### [facility] [address] [place] [address] Dr. Milena Rosa PLT 201 103/ul Normal 150-450 [facility] Comment on above: Performed By: #### C BC #### [facility] [address] [place] [address] Dr. Milena Rosa RBC 4.23 106/ul Normal 4.20-5.40 [facility] Comment on above: Performed By: #### C BC #### [facility] [address] [place] [address] Dr. Milena Rosa WBC 6.7 103/ul Normal 4.0-11.0 [facility] Comment on above: Performed By: #### C BC #### [facility] [address] [place] [address] Dr. Milena Rosa [facility]30 SARS-CoV-2 (COVID-19) RNA RADHA+probe Ql (Unsp spec) Not detected Normal NOT DETECTED [facility] Comment on above: Result Comment: This test is not yet approved or cleared by the [place] FDA. When there are no FDA-approved or cleared tests available, and other criteria are met, FDA can make tests available under an emergency access mechanism called an Emergency Use Authorization (EUA). The EUA for this test is supported by the [employer] Inspector of Health and Human Service's (HHS's) declaration [...] with SARS-CoV-2. Performed By: #### C VDTB ####[facility] [address] [address]Dr. Milena Rosa PROF CHEM 8 (BAS METB)on Anion gap [Moles/Vol] 13.1 mmol/L Normal [facility] Comment on above: Performed By: #### B MP #### [facility] [address] [place] [address] Dr. Milena Rosa Calcium [Mass/Vol] 9.8 mg/dL Normal 8.5-10.1 [facility] Comment on above: Performed By: #### B MP #### [facility] [address] [place] [address] Dr. Milena Rosa Chloride [Moles/Vol] 103 mmol/L Normal 98-107 [facility] Comment on above: Performed By: #### B MP #### [facility] [address] [place] [address] Dr. Milena Rosa CO2 [Moles/Vol] 26.7 mmol/L Normal 21.0-32.0 [facility] Comment on above: Performed By: #### B MP #### [facility] [address] [place] [address] Dr. Milena Rosa Creatinine [Mass/Vol] 0.95 mg/dL Normal 0.55-1.02 [facility] Comment on above: Performed By: #### B MP #### [facility] [address] [address] [address] Milena Rosa EGFR-AF ICELANDIC >60 Normal >=60 [facility] Comment on above: Performed By: #### B MP #### [facility] [address] [address] [address] Milena Rosa EGFR-NON AF ICELANDIC 57 mL/min/1.73m2 Critically low >=60 [facility] Comment on above: Performed By: #### B MP #### [facility] [address] [address] [address] Milena Rosa Glucose [Mass/Vol] 93 mg/dL Normal 74-106 [facility] Comment on above: Performed By: #### B MP #### [facility] [address] [address] [address] Milena Rosa Potassium [Moles/Vol] 3.8 mmol/L Normal 3.5-5.1 [facility] Comment on above: Performed By: #### B MP #### [facility] [address] [address] [address] Milena Rosa Sodium [Moles/Vol] 139 mmol/L Normal 136-145 [facility] Comment on above: Performed By: #### B MP #### [facility] [address] [address] [address] Milena Rosa Urea nitrogen [Mass/Vol] 18.0 mg/dL Normal 7.0-18.0 [facility] Comment on above: Performed By: #### B MP #### [facility] [address] [address] [address] Milena Rosa Urea nitrogen/Creatinine [Mass ratio] 18.9 mg/mg Normal [facility] Comment on above: Performed By: #### B MP #### [facility] [address] [address] [address] Milena Rosa NM STRESS/REST MULTIon 04-28 NM STRESS/REST MULTI Patient: GIOVANNA RICHARDSON Exam Date: 04/28/2022 : 1940 Gender:F Ordering : DR OVI CROOKS D.O. Admission #: [id number] Family : Order #: [id number] CLICK HERE TO VIEW EXAM RADIOLOGY REPORT [...] MD on 04/28/2022 at 14:26 Normal [facility] CBC AUTO DIFFon 02-27-2022 BASO # 0.0 103/ul Normal 0.0-0.1 [facility] Comment on above: Performed By: #### C BC ####[facility] [address] [place], [place] [address]ZvElia Abbott Rosa Basophils/100 WBC (Bld) 0.5 % Normal 0.2-2.0 [facility] Comment on above: Performed By: #### C BC ####[facility] [address] [address]Dr. Milena Rosa EO # 0.1 103/ul Normal 0.0-0.7 [facility] Comment on above: Performed By: #### C BC ####[facility] [address] [place], [place] [address]Dr. Milena Rosa Eosinophils/100 WBC (Bld) 1.9 % Normal 0.9-7.0 [facility] Comment on above: Performed By: #### C BC ####[facility] [address] [place], [place] [address]Dr. Milena Rosa Erythrocyte distribution width (RBC) [Ratio] 14.3 % Normal 11.0-15.0 [facility] Comment on above: Performed By: #### C BC ####[facility] [address] [place], [place] [address]Dr. Milena Rosa Hematocrit (Bld) [Volume fraction] 37.6 % Normal 36.0-48.0 [facility] Comment on above: Performed By: #### C BC ####[facility] [address] [place], [place] [address]Dr. Milena Rosa Hemoglobin (Bld) [Mass/Vol] 12.6 g/dL Normal 12.0-16.0 [facility] Comment on above: Performed By: #### C BC ####[facility] [address] [place], [place] [address]Dr. Milena Rosa IG # 0.02 10e3/ul Normal 0.00-0.03 [facility] Comment on above: Performed By: #### C BC ####[facility] [address] [place], [place] [address]Dr. Milena Rosa IG % 0.3 % Normal 0.0-0.5 [facility] Comment on above: Performed By: #### C BC ####[facility] [address] [place], [place] [address]Dr. Kimberleychinedu Rosa LYMPH # 2.1 103/ul Normal 1.2-3.8 [facility] Comment on above: Performed By: #### C BC ####[facility] [address] [id number]. Milena Moe Lymphocytes/100 WBC (Bld) 33.2 % Normal 20.5-60.0 [facility] Comment on above: Performed By: #### C BC ####[facility] [address] [id number]. Milena Rosa MANUAL DIFF REQ NO Normal [facility] Comment on above: Performed By: #### C BC ####[facility] [address] [id number]. Kimberleychinedu Rosa MCH (RBC) [Entitic mass] 30.9 pg Normal 26.7-34.0 [facility] Comment on above: Performed By: #### C BC ####[facility] [address] [place], [place] [address]Dr. Milena Rosa MCHC (RBC) [Mass/Vol] 33.5 g/dL Normal 29.9-35.2 [facility] Comment on above: Performed By: #### C BC ####[facility] [address] [place], [place] [address]Dr. Milena Rosa MCV (RBC) [Entitic vol] 92.2 fL Normal 81.0-99.0 [facility] Comment on above: Performed By: #### C BC ####[facility] [address] [place], [place] [address]Dr. Milena Rosa MONO # 0.6 103/ul Normal 0.3-0.8 [facility] Comment on above: Performed By: #### C BC ####[facility] [address] [place], [place] [address]Dr. Milena Rosa Monocytes/100 WBC (Bld) 8.9 % Normal 1.7-12.0 [facility] Comment on above: Performed By: #### C BC ####[facility] [address] [place], [place] [address]Dr. Milena Rosa NEUT # 3.5 103/ul Normal 1.4-6.5 [facility] Comment on above: Performed By: #### C BC ####[facility] [address] [place], [place] [address]Qt. Milena Rosa Neutrophils/100 WBC (Bld) 55.2 % Normal 43.0-75.0 [facility] Comment on above: Performed By: #### C BC ####[facility] [address] [place], [place] [address]Ty. Milena Rosa Platelet mean volume (Bld) [Entitic vol] 11.6 fL Normal 9.5-13.5 [facility] Comment on above: Performed By: #### C BC ####[facility] [address] [place], [place] [address]Zg. Milena Rosa PLT 217 103/ul Normal 150-450 [facility] Comment on above: Performed By: #### C BC ####[facility] [address] [place], [place] [address]Ar. Milena Rosa RBC 4.08 106/ul Critically low 4.20-5.40 [facility] Comment on above: Performed By: #### C BC ####[facility] [address] [place], [place] [address]No. Milena Rosa WBC 6.3 103/ul Normal 4.0-11.0 [facility] Comment on above: Performed By: #### C BC ####[facility] [address] [id number]. Milena Rosa ECHOCARDIO M/2D COMPLETEon 1 ECHOCARDIO M/2D COMPLETE Patient: GIOVANNA RICHARDSON Exam Date: 02/27/2022 : 1940 Gender:F Ordering : DR OVI CROOKS DEliaOElia Admission #: [id number] Family : Order #: [id number] CLICK HERE TO VIEW EXAM ECHOCARDIOGRAM REPORT [...] Christie M.D. on 03/01/2022 at 11:53 Normal [facility] PROF CHEM 8 (BAS METB)on Anion gap [Moles/Vol] 6.1 mmol/L Normal [facility] Comment on above: Performed By: #### B TERESA, TSH #### [facility] [address] [address] [address] Milena Rosa Calcium [Mass/Vol] 9.0 mg/dL Normal 8.5-10.1 [facility] Comment on above: Performed By: #### B TERESA, TSH #### [facility] [address] [address] [address] Milena Rosa Chloride [Moles/Vol] 103 mmol/L Normal 98-107 [facility] Comment on above: Performed By: #### B TERESA, TSH #### [facility] [address] [address] [address] Milena Rosa CO2 [Moles/Vol] 34.4 mmol/L Critically high 21.0-32.0 [facility] Comment on above: Performed By: #### B TERESA, TSH #### [facility] [address] [address] [address] Milena Rosa Creatinine [Mass/Vol] 1.21 mg/dL Critically high 0.55-1.02 [facility] Comment on above: Performed By: #### B ETRESA, TSH #### [facility] [address] [address] [address] Milena Rosa EGFR-AF ICELANDIC 52 mL/min/1.73m2 Critically low >=60 [facility] Comment on above: Performed By: #### B MP, TSH #### [facility] [address] [address] [address] Milena Rosa EGFR-NON AF ICELANDIC 43 mL/min/1.73m2 Critically low >=60 [facility] Comment on above: Performed By: #### B MP, TSH #### [facility] [address] [address] [address] Milena Rosa Glucose [Mass/Vol] 101 mg/dL Normal 74-106 [facility] Comment on above: Performed By: #### B MP, TSH #### [facility] [address] [place] [address] Dr. Milena Rosa Potassium [Moles/Vol] 3.5 mmol/L Normal 3.5-5.1 [facility] Comment on above: Performed By: #### B MP, TSH #### [facility] [address] [place] [address] Dr. Milena Rosa Sodium [Moles/Vol] 140 mmol/L Normal 136-145 [facility] Comment on above: Performed By: #### B MP, TSH #### [facility] [address] [place] [address] Dr. Milena Rosa Urea nitrogen [Mass/Vol] 20.0 mg/dL Critically high 7.0-18.0 [facility] Comment on above: Performed By: #### B MP, TSH #### [facility] [address] [place] [address] Dr. Milena Rosa Urea nitrogen/Creatinine [Mass ratio] 16.5 mg/mg Normal [facility] Comment on above: Performed By: #### B MP, TSH #### [facility] [address] [address] [address] Milena Rosa TSHon 02-27-2022 TSH 1.640 uIU/mL Normal 0.358-3.740 [facility] Comment on above: Performed By: #### B , [facility] #### [facility] [address] [address] [address] Milena Rosa XR CHEST 2 Von [...] WHITNEY FOURNIER Date: 2022-02-27 13:49 Normal [facility] [facility] WO CONon 01-10-20 [...] by: WILLIAM BERMEO Date: 2022-01-09 16:20 Normal [facility] XR hand BI 3Von 12-21-2021 XR hand BI 3V [facility] Main [place] [address] [place] [address] XRay Report Signed Patient: Giovanna Richardson MR#: [id number] : 1940 Acct:[id number] Age/Sex: 81 / F ADM Date: 12/21/21 Loc: [facility] Room: Type: [facility] Attending Dr: Brina Morrissey MD Copies to: [...] Caal Jr., D.O.12/21/2021 2:31 PM Dictation Location: [place] [address] Transcribed By: [facility] 12/21/21 143 Dictated By: Erasmo Caal Jr, DO 12/21/21 1427 Signed By: 12/21/21 1431 [facility] CBC AUTO DIFFon 09-14-2021 BASO # 0.0 103/ul Normal 0.0-0.1 [facility] Comment on above: Performed By: #### C BC #### [facility] [address] [place] [address] Dr. Milena Rosa Basophils/100 WBC (Bld) 0.2 % Normal 0.2-2.0 [facility] Comment on above: Performed By: #### C BC #### [facility] [address] [place] [address] Dr. Milena Rosa EO # 0.1 103/ul Normal 0.0-0.7 [facility] Comment on above: Performed By: #### C BC #### [facility] [address] [place] [address] Dr. Milena Rosa Eosinophils/100 WBC (Bld) 2.8 % Normal 0.9-7.0 [facility] Comment on above: Performed By: #### C BC #### [facility] [address] [place] [address] Dr. Milena Rosa Erythrocyte distribution width (RBC) [Ratio] 13.4 % Normal 11.0-15.0 [facility] Comment on above: Performed By: #### C BC #### [facility] [address] [place] [address] Dr. Milena Rosa Hematocrit (Bld) [Volume fraction] 38.2 % Normal 36.0-48.0 [facility] Comment on above: Performed By: #### C BC #### [facility] [address] [place] [address] Dr. Milena Rosa Hemoglobin (Bld) [Mass/Vol] 12.5 g/dL Normal 12.0-16.0 [facility] Comment on above: Performed By: #### C BC #### [facility] [address] [place] [address] Dr. Milena Rosa IG # 0.02 10e3/ul Normal 0.00-0.03 [facility] Comment on above: Performed By: #### C BC #### [facility] [address] [place] [address] Dr. Milena Rosa IG % 0.4 % Normal 0.0-0.5 [facility] Comment on above: Performed By: #### C BC #### [facility] [address] [place] [address] Dr. Milena Rosa LYMPH # 2.1 103/ul Normal 1.2-3.8 [facility] Comment on above: Performed By: #### C BC #### [facility] [address] [place] [address] Dr. Milena Rosa Lymphocytes/100 WBC (Bld) 40.5 % Normal 20.5-60.0 [facility] Comment on above: Performed By: #### C BC #### [facility] [address] [place] [address] Dr. Milena Rosa MANUAL DIFF REQ NO Normal [facility] Comment on above: Performed By: #### C BC #### [facility] [address] [place] [address] Dr. Milena Rosa MCH (RBC) [Entitic mass] 29.7 pg Normal 26.7-34.0 [facility] Comment on above: Performed By: #### C BC #### [facility] [address] [place] [address] Dr. Milena Rosa MCHC (RBC) [Mass/Vol] 32.7 g/dL Normal 29.9-35.2 [facility] Comment on above: Performed By: #### C BC #### [facility] [address] [place] [address] Dr. Milena Rosa MCV (RBC) [Entitic vol] 90.7 fL Normal 81.0-99.0 [facility] Comment on above: Performed By: #### C BC #### [facility] [address] [place] [address] Dr. Milena Rosa MONO # 0.6 103/ul Normal 0.3-0.8 [facility] Comment on above: Performed By: #### C BC #### [facility] [address] [place] [address] Dr. Milena Rosa Monocytes/100 WBC (Bld) 12.0 % Normal 1.7-12.0 [facility] Comment on above: Performed By: #### C BC #### [facility] [address] [place] [address] Dr. Milena Rosa NEUT # 2.3 103/ul Normal 1.4-6.5 [facility] Comment on above: Performed By: #### C BC #### [facility] [address] [place] [address] Dr. Milena Rosa Neutrophils/100 WBC (Bld) 44.1 % Normal 43.0-75.0 [facility] Comment on above: Performed By: #### C BC #### [facility] [address] [place] [address] Dr. Milena Rosa Platelet mean volume (Bld) [Entitic vol] 11.7 fL Normal 9.5-13.5 [facility] Comment on above: Performed By: #### C BC #### [facility] [address] [place] [address] Dr. Milena Rosa PLT 206 103/ul Normal 150-450 [facility] Comment on above: Performed By: #### C BC #### [facility] [address] [place] [address] Dr. Milena Rosa RBC 4.21 106/ul Normal 4.20-5.40 [facility] Comment on above: Performed By: #### C BC #### [facility] [address] [place] [address] Dr. Milena Rosa WBC 5.1 103/ul Normal 4.0-11.0 [facility] Comment on above: Performed By: #### C BC #### [facility] [address] [place] [address] Dr. Milena Rosa MG MAMM SCREEN 3D SHERICE CADon 09-14-2021 MG MAMM SCREEN 3D SHERICE CAD Patient: GIOVANNA RICHARDSON Exam Date: 09/14/2021 : 1940 Gender:F Ordering : DR OVI CROOKS D.O. Admission #: [id number] Family : Order #: [id number] CLICK HERE TO VIEW EXAM RADIOLOGY REPORT [...] Treatments None Family Cancers None LOCATION: [facility] BREAST COMPOSITION: Scattered areas fibroglandular [...] Ziegler MD on 09/14/2021 at 10:42 Normal [facility] PROF CHEM 8 (BAS METB)on Anion gap [Moles/Vol] 10.5 mmol/L Normal [facility] Comment on above: Performed By: #### B MP #### [facility] [address] [address] [address] Milena Rosa Calcium [Mass/Vol] 9.5 mg/dL Normal 8.5-10.1 [facility] Comment on above: Performed By: #### B MP #### [facility] [address] [place] [address] [address] Milena Rosa Chloride [Moles/Vol] 101 mmol/L Normal 98-107 [facility] Comment on above: Performed By: #### B MP #### [facility] [address] [place] [address] [address] Milena Rosa CO2 [Moles/Vol] 31.1 mmol/L Normal 21.0-32.0 [facility] Comment on above: Performed By: #### B MP #### [facility] [address] [place] [address] [address] Milena Rosa Creatinine [Mass/Vol] 1.01 mg/dL Normal 0.55-1.02 [facility] Comment on above: Performed By: #### B MP #### [facility] [address] [place] [address] [address] Milena Rosa EGFR-AF ICELANDIC >60 Normal >=60 [facility] Comment on above: Performed By: #### B MP #### [facility] [address] [place] [address] [address] Milena Rosa EGFR-NON AF ICELANDIC 53 mL/min/1.73m2 Critically low >=60 [facility] Comment on above: Performed By: #### B MP #### [facility] [address] [place] [address] [address] Milena Rosa Glucose [Mass/Vol] 96 mg/dL Normal 74-106 [facility] Comment on above: Performed By: #### B MP #### [facility] [address] [address] [address] Milena Rosa Potassium [Moles/Vol] 3.6 mmol/L Normal 3.5-5.1 [facility] Comment on above: Performed By: #### B MP #### [facility] [address] [address] [address] Milena Rosa Sodium [Moles/Vol] 139 mmol/L Normal 136-145 [facility] Comment on above: Performed By: #### B MP #### [facility] [address] [address] [address] Milena Rosa Urea nitrogen [Mass/Vol] 20.0 mg/dL Critically high 7.0-18.0 [facility] Comment on above: Performed By: #### B MP #### [facility] [address] [address] [address] Milena Rosa Urea nitrogen/Creatinine [Mass ratio] 19.8 mg/mg Normal [facility] Comment on above: Performed By: #### B #### [facility] [address] [address] [address] Milena Rosa Coding Summary.on 12-26-2017 Coding Summary. CODING DATE: 12/26/2017 FINAL [facility] STATUS: Home (Routine DC) PAYOR: Medicare APC DESCRIPTION 5481 [facility] Procedures ADMIT DX: REASON FOR VISIT DX: H26.492 Other secondary cataract, left eye FINAL DX: PRINCIPAL: H26.492 Other secondary cataract, left eye SECONDARY: PYMT PROC APC STAT DESCRIPTION DOCTOR NAME DATE 28422 5481 T Discission of secondary Zahler DO, Quinn 12/25/2017 membranous cataract (opacified posterior lens [...] Saved: 12/26/2017 11:03 am Normal [facility] Coding Summary.on 12-19-2017 Coding Summary. CODING DATE: 12/19/2017 [facility] STATUS: Home (Routine DC) PAYOR: Medicare APC DESCRIPTION 5481 [facility] Eye Procedures ADMIT DX: REASON FOR VISIT DX: H26.40 Unspecified secondary cataract FINAL DX: PRINCIPAL: H26.40 Unspecified secondary cataract SECONDARY: PYMT PROC APC STAT DESCRIPTION DOCTOR NAME DATE 48067 5481 T Discission of secondary Shelleyhler DOMeronQuinn 12/18/2017 membranous cataract (opacified posterior lens capsule [...] Saved: 12/19/2017 09:21 am Normal [facility] Vital Signs Date Time Vital Sign Value Performing Clinician Facility 07-20-2023 09:05-0400 Body height 151.13 cm [facility] 07-20-2023 09:05-0400 Body mass index (BMI) [Ratio] 29.8 kg/m2 [facility] 07-20-2023 09:05-0400 Body weight 68.2 kg [facility] 07-20-2023 09:05-0400 Diastolic blood pressure 71 mm[Hg] [facility] 07-20-2023 09:05-0400 Heart rate 62 /min [facility] 07-20-2023 09:05-0400 Respiratory rate 12 /min [facility] 07-20-2023 09:05-0400 Systolic blood pressure 112 mm[Hg] [facility] 02-20-2023 16:00-0400 Body height Ovi Ball Other [facility] Other 02-20-2023 16:00-0400 Body mass index (BMI) [Ratio] 30.44 kg/m2 Ovi Ball Other [facility] Other 02-20-2023 16:00-0400 Body weight 69.54 kg Ovi Ball Other [facility] Other 02-20-2023 16:00-0400 Diastolic blood pressure 78 mm[Hg] Ovi Ball Other [facility] Other 02-20-2023 16:00-0400 Respiratory rate 12 /min Ovi Ball Other [facility] Other 02-20-2023 16:00-0400 Systolic blood pressure 144 mm[Hg] Ovi Ball Other [facility] Other 07-17-2022 16:30-0400 Body height Ovi Ball Other [facility] Other 07-17-2022 16:30-0400 Body mass index (BMI) [Ratio] 31.33 kg/m2 Ovi Crooks Other [facility] Other 07-17-2022 16:30-0400 Body weight 71.58 kg Ovi Crooks Other [facility] Other 07-17-2022 16:30-0400 Diastolic blood pressure 75 mm[Hg] Ovi Crooks Other [facility] Other 07-17-2022 16:30-0400 Respiratory rate 12 /min Ovi Crooks Other [facility] Other 07-17-2022 16:30-0400 Systolic blood pressure 122 mm[Hg] Ovi Crooks Other [facility] Other 12-21-2021 11:00-0400 Body height Brina Morrissey Other [employer] Other Encounters Encounter Date Encounter Type Care Provider Facility Start: 08-15-2023 End: 08-15-2023 ambulatory TORRES ROSA Not Available Start: 07-20-2023 End: 07-20-2023 ambulatory [facility] Work Phone: Start: 07-20-2023 End: 07-20-2023 Patient encounter procedure [facility] Work Phone: Start: 07-04-2023 End: 07-04-2023 Patient encounter procedure [facility] Work Phone: Start: 04-17-2023 End: 04-17-2023 ambulatory Ovi Valeriy Other [facility] [employer] Other Start: 04-17-2023 Telephone encounter Ovi Ball [facility] Start: 03-13-2023 End: 03-13-2023 ambulatory Ovi Crooks Other [facility] Other Start: 03-13-2023 Telephone encounter Ovi Crooks [facility] Start: 03-07-2023 End: 03-07-2023 ambulatory Ovi Ball Other [facility] [employer] Other Start: 03-07-2023 Telephone encounter Ovi Ball [facility] Start: 03-01-2023 End: 03-01-2023 ambulatory Ovi Ball Other [facility] Other Start: 03-01-2023 Telephone encounter Ovi Crooks [facility] Start: 02-28-2023 End: 02-28-2023 ambulatory Ovi Crooks Other [facility] Other Start: 02-28-2023 Telephone encounter Ovi Ball [facility] Start: 02-22-2023 End: 02-22-2023 ambulatory Ovi Crooks Other [facility] Other Start: 02-22-2023 Telephone encounter Ovi Crooks [facility] Start: 02-21-2023 End: 02-21-2023 ambulatory Ovi Crooks Other [facility] Other Start: 02-21-2023 Telephone encounter Ovi Ball [facility] Start: 02-20-2023 End: 02-20-2023 ambulatory Ovi Ball Other [facility] Other Start: 02-20-2023 Office outpatient vi sit 25 minutes Ovi Ball [facility] Start: 01-23-2023 End: 01-23-2023 ambulatory Ovi Ball Other [facility] Other Start: 01-23-2023 Telephone encounter Ovi Ball [facility] Start: 01-16-2023 End: 01-16-2023 ambulatory Brina Morrissey Other [facility] Other Start: 01-16-2023 Office outpatient vi sit 15 minutes Brina Morrissey [facility] Start: 01-05-2023 End: 01-05-2023 ambulatory [facility] Start: 11-23-2022 ambulatory DAVID KAPOOR . Facili ty:[facility]1 Start: 09-01-2022 End: 09-02-2022 ambulatory DAVID KAPOOR . Facility:[facility] Start: 07-31-2022 End: 07-31-2022 ambulatory Brina Morrissey Other [employer] Other Start: 07-31-2022 Telephone encounter Brina Wright [facility] Start: 07-26-2022 End: 07-27-[address] OVI CROOKS Facility:[facility] Start: 07-26-2022 End: 07-26-2022 ambulatory [facility] Start: 07-25-2022 End: 07-25-2022 ambulatory NARENDRANATH LAKSHMIPATHY . Facility:[facility] Start: 07-20-2022 End: 07-21-2022 ambulatory NARENDRANATH LAKSHMIPATHY . Facility:[facility] Start: 07-19-2022 End: 07-20-[address] OVI CROOKS [facility] Other Start: 07-19-2022 Telephone encounter Ovi Crooks [facility] Start: 07-17-2022 End: 07-17-2022 ambulatory Ovi Crooks Other [employer] Other Start: 07-17-2022 Patient encounter procedure Ovi GUERRERO [facility] Start: 06-20-2022 End: 06-20-[address] ELIZABETH JESSICA . Facility:[facility]1 Start: 06-07-2022 Telephone encounter Brina Wright [facility] Start: 06-07-2022 End: 06-07-[address] [facility] Other Start: 05-20-2022 Encounter for preprocedural laboratory examination JEMAL MEDEIROS [facility] Start: 05-15-2022 End: 05-16-2022 ambulatory JEMAL MEDEIROS Facility:[facility] Start: 05-15-2022 End: 05-16-2022 Encounter for preprocedural laboratory examination JEMAL MEDEIROS Facility:[facility] Start: 05-09-[address] ELIZABETH JESSICA . Faci lity:[facility]1 Start: 04-28-2022 End: 04-29-[address] OVI CROOKS Facility:[facility] Start: 04-13-[address] OVI Flores ty:[facility]1 Start: 03-14-[address] OVI Flores [...] 01-18-2022 End: 01-18-2022 ambulatory Brina Morrissey Other [facility] Other Start: 01-18-2022 Office outpatient vi sit 15 minutes Brina Morrissey [facility] Start: 01-09-2022 End: 01-10-2022 ambulatory MARY CRISTOBAL . Facility:[facility]1 Start: 12-29-2021 End: 12-30-2021 ambulatory MARY CRISTOBAL . Facility:[facility] Start: 12-21-2021 End: 12-21-2021 ambulatory Brina Morrissey Other [facility] Other Start: 12-21-2021 Office outpatient ne w 30 minutes Brina Morrissey [facility] Start: 12-21-2021 End: 12-21-2021 Patient encounter procedure MD Brina Morrissey Work Phone: [facility] Start: 12-13-2021 End: 12-13-[address] ELIZABETH JESSICA . Facility:[facility]1 Start: 12-01-2021 End: 12-02-2021 ambulatory MARY CRISTOBAL . Facility: Start: 09-14-2021 End: 09-15-[address] OVI CROOKS Facility: Start: 08-17-2021 Adult health examination Brina Morrissey Other [employer] Other Start: 12-25-2017 End: 12-25-2017 Patient encounter Quinn Armendariz Facility:[facility] Start: 12-18-2017 End: 12-18-2017 Patient encounter Quinn Armendariz Facility:[facility] Procedures Date Procedure Procedure Detail Performing Clinician Start: 07-26-2022 Follow-up visit Follow-up JEMAL MEDEIROS Start: 12-21-2021 Plain X-ray of bilat eral hands MD Brina Morrissey Work Phone: Start: 03-26-2018 Screening for osteoporosis Brina Morrissey Other Start: 08-05-2015 Screening for malign ant neoplasm of colon Brina Morrissey Other Start: 08-05-2015 Screening mammography C oleliz Morrissey Other Cough 786.2 Brina Morrissey Depression screening Brina Morrissey Other Screening for malign ant neoplasm of breast Brina Morrissey Other Immunizations Immunization Date Immunization Notes Care Provider Fa cili 02-17-2022 influenza, high dose seasonal, preservative-free Ovi Crooks Other [employer] Other 02-17-2022 influenza virus vaccine, split virus (incl. purified surface antigen) Brina Morrissey Other [employer] Other 02-17-2022 influenza virus vaccine, unspecified formulation [facility] 04-04-2021 COVID-19 Vaccine Pfi zer - Documentation Purposes Only Ovi Crooks Other [facility] 01-17-2021 influenza virus vaccine, split virus (incl. purified surface antigen) Brina Morrissey Other [facility] Other 01-17-2021 influenza virus vaccine, unspecified formulation [facility] 06-17-2020 COVID-19 Vaccine Pfi zer - Documentation Purposes Only Ovi Crooks Other [facility] 05-27-2020 COVID-19 Vaccine Moderna - Documentation Purposes Only Brina Morrissey Other [facility] 05-27-2020 COVID-19 Vaccine Pfi zer - Documentation Purposes Only Ovi Crooks Other [facility] 03-10-2020 influenza virus vaccine, split virus (incl. purified surface antigen) Brina Morrissey Other [facility] Other 03-10-2020 influenza virus vaccine, unspecified formulation [facility] 03-07-2019 influenza virus vaccine, split virus (incl. purified surface antigen) Brina Morrissey Other [facility] Other 03-07-2019 influenza virus vaccine, unspecified formulation [facility] 03-27-2018 influenza virus vaccine, split virus (incl. purified surface antigen) Brina Morrissey Other [facility] Other 03-27-2018 influenza virus vaccine, unspecified formulation [facility] 03-16-2017 pneumococcal Conjuga te, unspecified formulation; 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: [Need for prophylactic vaccination against Streptococcus pneumoniae (pneumococcus)] Brina Morrissey Other [facility] Other 03-16-2017 pneumococcal polysaccharide vaccine, 23 valent Ovi Crooks Other [facility] 11-17-2016 pneumococcal conjuga te vaccine, 13 valent Ovi Crooks Other [facility] 02-09-2016 influenza virus vaccine, split virus (incl. purified surface antigen) Brina Morrissey Other [employer] Other 02-09-2016 influenza virus vaccine, unspecified formulation [facility] Payers Date Payer Category Payer Medicare [id number] 1957 Medicare [id number] 1957 Unknown [id number] 1940 Unknown [id number] 2.16.84 0.1.148311.3.579.2.593 1940 Unknown [id number] 2.16.84 0.1.755664.3.579.2.593 1940 Unknown [id number] 2.16.84 0.1.609328.3.579.2.593 1940 Unknown [id number] 2.16.84 0.1.167954.3.579.2.593 1940 Unknown [id number] 2.16.84 0.1.190645.3.579.2.593 1940 Unknown [id number] 2.16.84 0.1.067567.3.579.2.593 1940 Unknown [id number] 2.16.84 0.1.817238.3.579.2.593 1940 Unknown [id number] 2.16.84 0.1.225128.3.579.2.593 1940 Unknown [id number] 2.16.84 0.1.974448.3.579.2.593 1940 Unknown [id number] 2.16.84 0.1.575154.3.579.2.593 1942 Unknown [id number] 2.16.84 0.1.830998.3.579.2.593 1942 Unknown [id number] 2.16.84 0.1.245049.3.579.2.593 1942 Unknown [id number] 2.16.84 0.1.888374.3.579.2.593 1942 Unknown [id number] 2.16.84 0.1.727169.3.579.2.593 1942 Unknown [id number] 2.16.84 0.1.427054.3.579.2.593 1942 Unknown [id number] 2.16.84 0.1.575120.3.579.2.593 1942 Unknown [id number] 2.16.84 0.1.546978.3.579.2.593 1942 Unknown [id number] 2.16.84 0.1.519549.3.579.2.593 1942 Unknown [id number] 2.16.84 0.1.543689.3.579.2.593 1942 Unknown [id number] 2.16.84 0.1.354815.3.579.2.593 1942 Unknown [id number] 2.16.84 0.1.761922.3.579.2.593 1942 Unknown [id number] 2.16.84 0.1.229050.3.579.2.593 1940 Unknown [id number] 2.16.84 0.1.629827.3.579.2.593 1940 Unknown [id number] 2.16.84 0.1.661113.3.579.2.593 1940 Unknown [id number] 2.16.84 0.1.067777.3.579.2.1259 Social History Date Type Detail Facility Tobacco smoking status OHIS Unknown if ever smoked [facility] Work Phone: Start: 1940 Sex Assigned At Female [facility] Sex Assigned At Sex Assigned At Bir th [employer] Other Start: 06-28-2023 Tobacco smoking status NHIS Never smoked tobacco (finding) [facility] Clinical Notes 12-01-2021 to 05-18-2023 Note Date & Type Note Facility 05-18-2023 Note We received fax from [facility] Pain Mgmt requesting patient hold her Plavix [...] them to contact Dr. Arriola for clearance. [facility] 04-17-2023 Evaluation note Encounter Date Diagnosis Assessment Notes Mar, Acute cerebral infarction (ICD-10 - I63.9) Mar, Cerebral atherosclerosis (ICD-10 - I67.2) [facility] Other 11-01-2023 Evaluation note* Encounter Date Diagnosis Assessment Notes Treatment Notes Treatment Clinical Notes Feb, Acute cerebral infarction (ICD-10 - I63.9) [facility] Other 11-01-2023 Evaluation note* Encounter Date Diagnosis Assessment Notes Treatment Notes Treatment Clinical Notes Feb, Bruit (ICD-10 - R09.89) [facility] Other 10-25-2023 Evaluation note* Encounter Date Diagnosis Assessment Notes Treatment Notes Treatment Clinical Notes Jan, Transient left leg weakness (ICD-10 - R29.898) Jan, Jerking movements of extremities (ICD-10 - R25.2) [facility] Other 10-24-2023 Evaluation note* Encounter Date Diagnosis [...] the risk for cerebrovascular and cardiovascular disease. [facility] Other 09-19-2023 Evaluation note* Encounter Date Diagnosis [...] Pain in left hand (ICD-10 - M79.642) [facility] Other 09-08-2023 NoteCardiology Clinic Note Chief Complaint: [...] in all muscle groups, (more content not included)...[facility]09-08-2023 NotePatient here for 6 mo follow up CAD, hypertension, and hyperlipidemia. Has not been taking aspirin because she doesn't like taking a lot of pills. Says she's only had chest pain once recently. Sees Dr. Smith and had CT chest in September. [facility]04-03-2023 Evaluation note* Encounter Date Diagnosis Assessment Notes Treatment Notes Treatment Clinical Notes Jul, Pulmonary nodule (ICD-10 - R91.1) RUL 10mm nodule - 06/3022Jul, Cough (ICD9-CM - 786.2) Jul, Mild persistent asthma without complication (ICD-10 - J45.30) [facility] Other 03-29-2023 NoteCardiology Clinic Note Chief Complaint: [...] motor function in all (more content not included)...[facility]03-23-2023 NoteCONSULTATION CONSULTATION DATE: 07/20/2022 TO: [...] be helping some of her pain symptoms.[id number] Evaluation note* Encounter Date Diagnosis Assessment Notes Treatment Notes Treatment Clinical Notes Jun, Pulmonary nodule (ICD-10 - R91.1) RUL 10mm nodule - 06/3022 [employer] Other 03-20-2023 Evaluation note* Encounter Date Diagnosis [...] use, the patient reduces the risk for DE, CVA, HTN, cardiac dysrhythmias and sudden cardiac [...] mammogram for breast cancer (ICD-10 - Z12.31) [employer] Other 02-08-2023 Evaluation note* Encounter Date Diagnosis Assessment Notes Treatment Notes Treatment Clinical Notes May, ASHD (arterioscleroti c heart disease) (ICD-10 - I25.10) LHC: moderate, nonobstructive coronary disease - 05/2022 [employer] Other 02-08-2023 NotePatient here for follow up [...] light-headedness. All other systems reviewed and are negative.[facility] 06-07-2022 NoteCardiology Clinic Note Chief [...] Value Ventricular Rate 53 Atrial Rate 53 GA Interval 186 QRS DURATION 142 QT Interval 472 QTC CALCULATION(BAZETT) 442 P [place] 29 R-[place] -35 T Wave [place] 59 Impression Sinus bradycardia Left axis deviation Left bundle branch block Abnormal ECG When compared with ECG of 30-NOV-2008 12:01, Premature atrial comple (more content not included)...[facility]10-27-2022 NoteCONSULTATION CONSULTATION DATE: 02/23/2022 This is a [...] will be followed in the clinic thereafter.[facility] [id number] Evaluation note* Encounter Date Diagnosis Assessment Notes [...] in both duran ds (ICD-10 - R20.0) [employer] Other 09-01-2022 NoteCONSULTATION CONSULTATION DATE: 12/29/2021 HISTORY [...] patient is in agreement to move forward.[facility] [id number] Evaluation note* Encounter Date Diagnosis Assessment Notes [...] in both duran ds (ICD-10 - R20.0) [employer] Other 08-04-2022 NoteCONSULTATION CONSULTATION DATE: 12/01/2021 HISTORY [...] followed up in the office post procedure.[facility] CenterEvaluation noteNo assessment information availableKindred Hospital Dayton Work Phone: Evaluation noteNo InformationNort [employer] Other Evaluation note* Diagnosis Onset Date Resolution [...] noneactive Screening mammogram for breast cancer noneactive [facility] Work Phone: Histdzm general Narrative - Reported* Type Description Date Medical History Esophageal reflux Medical History seasonal allergies Medical History DIVINA Medical History Hypertension Surgical History APPENEDECTOMY Surgical History HYSTERECTOMY Surgical History SINUS Surgical History LEFT HAND Surgical History HEART CATH Surgical History CHOLECYSTECTOMY [employer] Other Histbxc general Narrative - Reported* Type Description Date Medical History Esophageal reflux Medical History seasonal allergies Medical History DIVINA Medical History Hypertension Medical History ASHD (arteriosclerotic heart dis ease) Surgical History APPENEDECTOMY Surgical History HYSTERECTOMY Surgical History SINUS Surgical History LEFT HAND Surgical History HEART CATH Surgical History CHOLECYSTECTOMY Surgical History cardiac catheterization 06/07/22 [employer] Other Hisjcdh general Narrative - Reported* Type Description Date [...] catheterization 06/07/22 Hospitalization History SEE SURGICAL HX [employer] Other Summary Purpose Family History No Family History Records Found Relationship Condition Age at Onset Recorded Date/T urvashi sister Hypertension Unknown Diabetes mellitus Unknown Advance Directives No Advanced Directives Records Found Advance Directive Response Recorded Date/ Time Advance [...] and content) DATE CREATED AUTHOR 12/29/2017 [facility] DATE CREATED AUTHOR AUTHOR'S ORGANIZ ATION 12/25/2021 [facility] DATE CREATED AUTHOR AUTHOR'S ORGANIZ ATION 09/08/2022 [facility] DATE CREATED AUTHOR AUTHOR'S ORGANIZ ATION 05/19/2023 [facility] DATE CREATED AUTHOR AUTHOR'S ORGANIZ ATION 08/16/2023 [facility]ists EPIC Care Teams (unrecognized sec tion and content) [...] BE BASED ON THE PRIMARY CLINICAL RECORDS. [employer] [facility]. provides no warranty or guarantee of the accuracy or completeness of information in this document.
== END 2023-09-13 12:46 | disposition home or self-care (01) ==
LOC: FL 12:47
PROVIDERS: PCP Internal Medicine; Visit Provider Otolaryngology
DX: R13.14 Dysphagia, pharyngoesophageal phase (principal)
CPT/HCPCS: 74230; 92611

== ENCOUNTER 2023-10-08 09:54 | Outpatient (RCR) | payer MEDICARE, BC, SELFPAY | END 2023-11-20 11:53 | disposition home or self-care (01) | LOC: ST 09:54 | PROVIDERS: PCP Internal Medicine; Visit Provider Otolaryngology | DX: R13.14 Dysphagia, pharyngoesophageal phase (principal) | CPT/HCPCS: 92526 ==

== ENCOUNTER 2023-11-07 11:35 | Outpatient (OUT) | payer MEDICARE, BC, SELFPAY ==
[2023-11-07 12:08] LABS: Basophils Percent Auto 0.4 % (0.2-2.0); Eosinophils Absolute Auto 0.1 10^3/uL (0.0-0.7); Eosinophils Percent Auto 2.6 % (0.9-7.0); Hematocrit 35.4 % (36.0-48.0); Hemoglobin 11.8 g/dL (12.0-16.0); Immature Granulocytes Abs Auto 0.01 10^3/uL (0.00-0.03); Immature Granulocytes Pct Auto 0.2 % (0.0-0.5); Lymphocytes Absolute Auto 1.9 10^3/uL (1.2-3.8); Lymphocytes Percent Auto 35.4 % (20.5-60.0); Mean Corpuscular HGB Conc 33.3 g/dL (29.9-35.2); Mean Corpuscular Hemoglobin 30.6 pg (26.7-34.0); Mean Corpuscular Volume 91.7 fL (81.0-99.0); Mean Platelet Volume 12.2 fL (9.5-13.5); Monocytes Absolute Auto 0.6 10^3/uL (0.3-0.8); Monocytes Percent Auto 12.1 % (1.7-12.0); Neutrophils Absolute Auto 2.6 10^3/uL (1.4-6.5); Neutrophils Percent Auto 49.3 % (43.0-75.0); Platelet Count 190 10^3/uL (150-450); Red Blood Count 3.86 10^6/uL (4.20-5.40); Red Cell Distribution Width 13.3 % (11.0-15.0); White Blood Count 5.3 10^3/uL (4.0-11.0)
[2023-11-07 12:10] LABS: Anion Gap 11.8; BUN Creatinine Ratio 12.8; Carbon Dioxide 30.7 mmol/L (21.0-32.0); Chloride 102 mmol/L (98-107); Estimated GFR (African America 54 (>=60); Estimated GFR (Non-African Ame 45 (>=60); Glucose 107 mg/dL (74-106); Potassium 3.5 mmol/L (3.5-5.1); Sodium 141 mmol/L (136-145)
[2023-11-07 13:20] LABS: Percent Iron Saturation 31.8 %
== END 2023-11-07 11:36 | disposition home or self-care (01) ==
LOC: LAB 11:36
PROVIDERS: PCP Internal Medicine; Visit Provider Internal Medicine
DX: D64.9 Anemia, unspecified (principal); N18.9 Chronic kidney disease, unspecified
CPT/HCPCS: 36415; 80048; 82607; 82728; 82746; 83540; 83550; 85025

== ENCOUNTER 2023-12-26 08:58 | Outpatient (OUT) | payer MEDICARE, BC, SELFPAY ==
--- OUTSIDE RECORDS SUMMARY | 2023-12-26 09:19 | XMS_ITS | CCD ---
Author Organization [facility] [place] [facility] Care Team Providers Care Tableau Administrator Name Role Phone Zahler, Quinn Unavailable Unavailable Zahler, Quinn Unavailable Unavailable Shelleyhler, Quinn Unavailable Unavailable OVI CROOKS~[id number] UNKNOWN Unavailable Unavailable Zahler, Quinn Unavailable Unavailable Zahler, Quinn Unavailable Unavailable Erliner, Quinn Unavailable Unavailable OVI CROOKS~[id number] UNKNOWN Unavailable Unavailable MD Brina Morrissey Attending Provider [phone] Brina Morrissey Unavailable Ovi Crooks Unavailable DR OVI CROOKS Primary Care Unavailable CRISTOBAL . MARY Admitting Unavailable CRISTOBAL ., MARY Attending Unavailable JESSICA ., DR ELIZABETH Cerna Attending Unavailable JESSICA ., DR ELIZABETH Cerna Consulting Unavailable JESSICA ., DR ELIZABETH Cerna Admitting Unavailable BALL, DR DIOR Primary Care Unavailable HALKER ., DAVID Admitting Unavailable HALKER .DAVID Attending Unavailable BALL, DR DIOR Primary Care Unavailable BALL, DR DIOR Admitting Unavailable BALL, DR DIOR Attending Unavailable BALL, DR DIOR Consulting Unavailable VALERIY, DR DIOR Primary Care Unavailable CHRISTIN, DR GÓMEZ Mclean Consulting Unavailable VALERIY, DR DIOR Admitting Unavailable BALL, DR DIOR Primary Care Unavailable BALL, DR DIOR Attending Unavailable BALL, DR OVI Tucker Unavailable WEST, DR GÓMEZ Mclean Consulting Unavailable [...] NARMARIA C Attending Elodia vailable LAKSHMIPATHY ., NARMARIA C Consulting Elodia vailable VALERIY, DR DIOR Primary Care Unavailable CRISTOBAL ., [...] ., NARENDRANATH Admitting Elodia vailable LAKSHMIPATHY ., NARJESENIAATH Attending Elodia vailable BALL, DR DIOR Primary Care Unavailable JESSICA ., DR ELIZABETH eCrna Attending Unavailable JESSICA ., DR ELIZABETH Cerna [...] JESSICA ., DR ELIZABETH Cerna Admitting Unavailable MARY WHEELER Admitting Unavailable DR OVI CROOKS Primary Care Unavailable MARY WHEELER Attending Unavailable DR OVI CROOKS Consulting Unavailable DR WILLIAM BERMEO Consulting Unavailable MARY WHEELER Consulting Unavailable JEMAL MEDEIROS Attending Unavailable JEMAL MEDEIROS Attending Unavailable JEMAL MEDEIROS Attending Unavailable TORRES ROSA Attending Unavailable TORRES ROSA Attending Unavailable Allergies Allergy Classification Reported Allergen(s) Allergy Type Date of Onset Reaction(s) Facility (1 source) Midazolam Drug Allergy 10-03-2016 [facility] Repository (1 source) Midazolam; 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: [MIDAZOLAM] Drug Allergy 05-10-2022 [facility] Repository Medications Current Medications Medication [...] Start: 07-17-2022 take 1 capsule by mo [facility] once daily Omeprazole 40 MG 1 capsule [...] Dior ( ) take 1 tablet by [facility] every twenty-four hours Aspirin Adult Low [...] Coronary arteriosclerosis; 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: [Atherosclerotic heart disease of [place] coronary artery without angina pectoris] Onset: 3 [...] current use of drug therapy; 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: [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] Episodic Other and ill-defined [...] 04-28-2022 Episodic Other aftercare (1 source) 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; 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: [OTH LONG-TERM CURRENT DRUG THERAPY] Onset: 09-20-2021 Episodic Other [...] Range Facility Office Visiton 01-05-2023 Follow-up visit [id number] Giovanna Richardson 1940 F Date Provider Department Center 01/05/2023 NelidaJEMAL MEDEIROS [facility] Family History Problem Relation Age of Onset No Known Problems Mother No Known Problems Father Family Status - Relation Status Age at Mother Father Level of Service:59763 DC OFFICE/OUTPATIENT ESTABLISHED LOW MDM 20-29 MIN Normal [facility] FUNGAL AB QUANTITAIVE DOUBLE IMMUNODIFFUon 07-30-2022 Aspergillus flavus Negative Normal Neg:<1:1 [facility] Comment on above: Performed By: #### F UNGUYI #### [facility] Laboratory [address] [address] [address] Milena Rosa Aspergillus fumigatus Negative Normal Neg:<1:1 [facility] Comment on above: Performed By: #### F UNGUYI #### [facility] Laboratory [address] [address] [address] Milena Rosa Aspergillus niger Negative Normal Neg:<1:1 [facility] Comment on above: Performed By: #### F UNGUYI #### [facility] Laboratory [address] [address] [address] Milena Rosa Blastomyces Negative Normal Neg:<1:1 [facility] Comment on above: Performed By: #### F UNGUYI #### [facility] Laboratory [address] [address] [address] Milena Rosa HISTOPLASMA GALACTOMANNAN AG URINEon 07-30-2022 Histoplasma Gal'rosales Ag <0.5 Normal <0.5 ng/mL [facility] Comment on above: Performed By: #### H ISTGAL ####[facility] [address] [address]Dr. Milena Rosa COCCIDIODES IGG/IGM AB BY IF Aon 07-29-2022 Coccidiodes Ab, IgG EIA 0.1 EIA Units Normal [facility] Comment on above: Result Comment: Nega tive <1.0 Indeterminate 1.0-1.4 Positive >1.4 Performed By: #### C OCCABS #### [facility] Laboratory [address] [address] [address] Milena Rosa Coccidiodes Ab, IgM, EIA 0.0 EIA Units Normal [facility] Comment on above: Result Comment: Nega tive <1.0 Indeterminate 1.0-1.4 Positive >1.4 Performed By: #### C OCCABS #### [facility] Laboratory [address] [address] [address] Milena Rosa HISTOPLASMA CAP AB QUANT DID on 07-29-2022 Histoplasma Mycelial CF Ab. Negative Normal Neg:<1:2 [facility] Comment on above: Performed By: #### H ISTDID ####[facility] [address] [address]DrElia Rosa Histoplasma Yeast CF Ab Negative Normal Neg:<1:2 [facility] Comment on above: Performed By: #### H ISTDID ####[facility] [address] [address]DrElia Rosa Office Visiton 07-26-2022 Follow-up visit [id number] Giovanna Richardson 1940 F Date Provider Department Center 07/26/2022 JEMAL RICHARDS [facility] Family History Problem Relation Age of Onset No Known Problems Mother No Known Problems Father Family Status - Relation Status Age at Mother Father Level of Service:42954 DC OFFICE/OUTPATIENT ESTABLISHED MOD MDM 30-39 MIN Reason for Visit and Comments: Follow-up [210493] - 6 weeks- Go over Holter monitor results- Discuss medications Normal [facility] CT CHEST WO CONon 07-19-2022 [...] by: WILLIAM BERMEO Date: 2022-07-19 14:55 Normal [facility] Office Visiton 06-07-2022 Follow-up visit [id number] Giovanna Richardson 1940 F Date Provider Department Center 06/07/2022 3848-JEMAL MEDEIROS [facility] Family History Problem Relation Age of Onset No Known Problems Mother No Known Problems Father Family Status - Relation Status Age at Mother Father Level of Service:87799 DC OFFICE/OUTPATIENT ESTABLISHED MOD MDM 30-39 MIN Reason for Visit and Comments: Post-Cath [731] Normal [facility] CBC AUTO DIFFon 05-15-2022 BASO # 0.0 103/ul Normal 0.0-0.1 [facility] Comment on above: Performed By: #### C BC #### [facility] Laboratory [address] [address] [address] Milena Rosa Basophils/100 WBC (Bld) 0.3 % Normal 0.2-2.0 [facility] Comment on above: Performed By: #### C BC #### [facility] Laboratory [address] [address] [address] Milena Rosa EO # 0.2 103/ul Normal 0.0-0.7 [facility] Comment on above: Performed By: #### C BC #### [facility] Laboratory [address] [address] [address] Milena Rosa Eosinophils/100 WBC (Bld) 2.8 % Normal 0.9-7.0 [facility] Comment on above: Performed By: #### C BC #### [facility] Laboratory [address] [address] [address] Milena Rosa Erythrocyte distribution width (RBC) [Ratio] 13.3 % Normal 11.0-15.0 [facility] Comment on above: Performed By: #### C BC #### [facility] Laboratory [address] [address] [address] Milena Rosa Hematocrit (Bld) [Volume fraction] 38.5 % Normal 36.0-48.0 [facility] Comment on above: Performed By: #### C BC #### [facility] Laboratory [address] [address] [address] Milena Rosa Hemoglobin (Bld) [Mass/Vol] 12.6 g/dL Normal 12.0-16.0 [facility] Comment on above: Performed By: #### C BC #### [facility] Laboratory [address] [address] [address] Milena Rosa IG # 0.02 10e3/ul Normal 0.00-0.03 [facility] Comment on above: Performed By: #### C BC #### [facility] Laboratory [address] [place] [address] Dr. Milena Rosa IG % 0.3 % Normal 0.0-0.5 [facility] Comment on above: Performed By: #### C BC #### [facility] Laboratory [address] [place] [address] Dr. Milena Rosa LYMPH # 2.5 103/ul Normal 1.2-3.8 [facility] Comment on above: Performed By: #### C BC #### [facility] Laboratory [address] [place] [address] Dr. Milena Rosa Lymphocytes/100 WBC (Bld) 37.6 % Normal 20.5-60.0 [facility] Comment on above: Performed By: #### C BC #### [facility] Laboratory [address] [place] [address] Dr. Milena Rosa MANUAL DIFF REQ NO [facility] Comment on above: Performed By: #### C BC #### [facility] Laboratory [address] [place] [address] Dr. Milena Rosa MCH (RBC) [Entitic mass] 29.8 pg Normal 26.7-34.0 [facility] Comment on above: Performed By: #### C BC #### [facility] Laboratory [address] [place] [address] Dr. Milena Rosa MCHC (RBC) [Mass/Vol] 32.7 g/dL Normal 29.9-35.2 [facility] Comment on above: Performed By: #### C BC #### [facility] Laboratory [address] [place] [address] Dr. Milena Rosa MCV (RBC) [Entitic vol] 91.0 fL Normal 81.0-99.0 [facility] Comment on above: Performed By: #### C BC #### [facility] Laboratory [address] [place] [address] Dr. Milena Rosa MONO # 0.7 103/ul Normal 0.3-0.8 [facility] Comment on above: Performed By: #### C BC #### [facility] Laboratory [address] [place] [address] Dr. Milena Rosa Monocytes/100 WBC (Bld) 10.0 % Normal 1.7-12.0 [facility] Comment on above: Performed By: #### C BC #### [facility] Laboratory [address] [place] [address] Dr. Milena Rosa NEUT # 3.3 103/ul Normal 1.4-6.5 [facility] Comment on above: Performed By: #### C BC #### [facility] Laboratory [address] [place] [address] Dr. Milena Rosa Neutrophils/100 WBC (Bld) 49.0 % Normal 43.0-75.0 [facility] Comment on above: Performed By: #### C BC #### [facility] Laboratory [address] [place] [address] Dr. Milena Rosa Platelet mean volume (Bld) [Entitic vol] 11.5 fL Normal 9.5-13.5 [facility] Comment on above: Performed By: #### C BC #### [facility] Laboratory [address] [place] [address] Dr. Milena Rosa PLT 201 103/ul Normal 150-450 [facility] Comment on above: Performed By: #### C BC #### [facility] Laboratory [address] [place] [address] Dr. Milena Rosa RBC 4.23 106/ul Normal 4.20-5.40 [facility] Comment on above: Performed By: #### C BC #### [facility] Laboratory [address] [place] [address] Dr. Milena Rosa WBC 6.7 103/ul Normal 4.0-11.0 [facility] Comment on above: Performed By: #### C BC #### [facility] Laboratory [address] [place] [address] Dr. Milena Rosa Covid-19 PCR ([facility]on 04-30 SARS-CoV-2 (COVID-19) RNA RADHA+probe Ql (Unsp spec) Not detected Normal NOT DETECTED [facility] Comment on above: Result Comment: This test is not yet approved or cleared by the [place] FDA. When there are no FDA-approved or cleared tests available, and other criteria are met, FDA can make tests available under an emergency access mechanism called an Emergency Use Authorization (EUA). The EUA for this test is supported by the [place] of Health and Human Service's (HHS's) declaration [...] with SARS-CoV-2. Performed By: #### C VDTB ####[facility] [address] [address]Dr. Milena Rosa PROF CHEM 8 (BAS METB)on Anion gap [Moles/Vol] 13.1 mmol/L Normal [facility] Comment on above: Performed By: #### B MP #### [facility] Laboratory [address] [place] [address] Dr. Milena Rosa Calcium [Mass/Vol] 9.8 mg/dL Normal 8.5-10.1 [facility] Comment on above: Performed By: #### B MP #### [facility] Laboratory [address] [place] [address] Dr. Milena Rosa Chloride [Moles/Vol] 103 mmol/L Normal 98-107 [facility] Comment on above: Performed By: #### B MP #### [facility] Laboratory [address] [place] [address] Dr. Milena Rosa CO2 [Moles/Vol] 26.7 mmol/L Normal 21.0-32.0 [facility] Comment on above: Performed By: #### B MP #### [facility] Laboratory [address] [place] [address] Dr. Milena Rosa Creatinine [Mass/Vol] 0.95 mg/dL Normal 0.55-1.02 [facility] Comment on above: Performed By: #### B MP #### [facility] Laboratory [address] [address] [address] Milena Rosa EGFR-AF MONTENEGRIN >60 Normal >=60 [facility] Comment on above: Performed By: #### B MP #### [facility] Laboratory [address] [address] [address] Milena Rosa EGFR-NON AF MONTENEGRIN 57 mL/min/1.73m2 Critically low >=60 [facility] Comment on above: Performed By: #### B MP #### [facility] [address] [address] [address] Milena Rosa Glucose [Mass/Vol] 93 mg/dL Normal 74-106 [facility] Comment on above: Performed By: #### B MP #### [facility] Laboratory [address] [address] [address] Milena Rosa Potassium [Moles/Vol] 3.8 mmol/L Normal 3.5-5.1 [facility] Comment on above: Performed By: #### B MP #### [facility] Laboratory [address] [address] [address] Milena Rosa Sodium [Moles/Vol] 139 mmol/L Normal 136-145 [facility] Comment on above: Performed By: #### B MP #### [facility] Laboratory [address] [address] [address] Milena Rosa Urea nitrogen [Mass/Vol] 18.0 mg/dL Normal 7.0-18.0 [facility] Comment on above: Performed By: #### B MP #### [facility] Laboratory [address] [address] [address] Milena Rosa Urea nitrogen/Creatinine [Mass ratio] 18.9 mg/mg Normal [facility] Comment on above: Performed By: #### B MP #### [facility] Laboratory [address] [address] [address] Milena Rosa NM STRESS/REST MULTIon 04-28 NM STRESS/REST MULTI Patient: GIOVANNA RICHARDSON Exam Date: 04/28/2022 : 1940 Gender:F Ordering : DR OVI CROOKS D.O. Admission #: [id number] Family : Order #: [id number] CLICK HERE TO VIEW EXAM RADIOLOGY REPORT [...] MD on 04/28/2022 at 14:22 Approved by: Gómze Ziegler MD on 04/28/2022 at 14:26 Normal [facility] CBC AUTO DIFFon 02-27-2022 BASO # 0.0 103/ul Normal 0.0-0.1 [facility] Comment on above: Performed By: #### C BC ####[facility] [address] [place], [place] [address]PiElia Abbott Rosa Basophils/100 WBC (Bld) 0.5 % Normal 0.2-2.0 [facility] Comment on above: Performed By: #### C BC ####[facility] [address] [address]Dr. Milena Rosa EO # 0.1 103/ul Normal 0.0-0.7 [facility] Comment on above: Performed By: #### C BC ####[facility] [address] [place], [place] [address]Dr. Milena Rosa Eosinophils/100 WBC (Bld) 1.9 % Normal 0.9-7.0 [facility] Comment on above: Performed By: #### C BC ####[facility] [address] [place], [place] [address]Dr. Milena Rosa Erythrocyte distribution width (RBC) [Ratio] 14.3 % Normal 11.0-15.0 [facility] Comment on above: Performed By: #### C BC ####[facility] [address] [place], [place] [address]Dr. Milena Rosa Hematocrit (Bld) [Volume fraction] 37.6 % Normal 36.0-48.0 [facility] Comment on above: Performed By: #### C BC ####[facility] [address] [place], [place] [address]Dr. Milena Rosa Hemoglobin (Bld) [Mass/Vol] 12.6 g/dL Normal 12.0-16.0 [facility] Comment on above: Performed By: #### C BC ####[facility] [address] [place], [place] [address]Dr. Milena Rosa IG # 0.02 10e3/ul Normal 0.00-0.03 [facility] Comment on above: Performed By: #### C BC ####[facility] [address] [place], [place] [address]Dr. Milena Rosa IG % 0.3 % Normal 0.0-0.5 [facility] Comment on above: Performed By: #### C BC ####[facility] [address] [place], [place] [address]Dr. Kimberleychinedu Rosa LYMPH # 2.1 103/ul Normal 1.2-3.8 [facility] Comment on above: Performed By: #### C BC ####[facility] [address] [address]. Milena Moe Lymphocytes/100 WBC (Bld) 33.2 % Normal 20.5-60.0 [facility] Comment on above: Performed By: #### C BC ####[facility] [address] [address]. Milena Rosa MANUAL DIFF REQ NO Normal [facility] Comment on above: Performed By: #### C BC ####[facility] [address] [id number]. Kimberleychinedu Rosa MCH (RBC) [Entitic mass] 30.9 pg Normal 26.7-34.0 [facility] Comment on above: Performed By: #### C BC ####[facility] [address] [place], [place] [address]Dr. Milena Rosa MCHC (RBC) [Mass/Vol] 33.5 g/dL Normal 29.9-35.2 [facility] Comment on above: Performed By: #### C BC ####[facility] [address] [place], [place] [address]Dr. Milena Rosa MCV (RBC) [Entitic vol] 92.2 fL Normal 81.0-99.0 [facility] Comment on above: Performed By: #### C BC ####[facility] [address] [place], [place] [address]Dr. Milena Rosa MONO # 0.6 103/ul Normal 0.3-0.8 [facility] Comment on above: Performed By: #### C BC ####[facility] [address] [place], [place] [address]Dr. Milena Rosa Monocytes/100 WBC (Bld) 8.9 % Normal 1.7-12.0 [facility] Comment on above: Performed By: #### C BC ####[facility] [address] [place], [place] [address]Dr. Milena Rosa NEUT # 3.5 103/ul Normal 1.4-6.5 [facility] Comment on above: Performed By: #### C BC ####[facility] [address] [place], [place] [address]Gj. Milena Rosa Neutrophils/100 WBC (Bld) 55.2 % Normal 43.0-75.0 [facility] Comment on above: Performed By: #### C BC ####[facility] [address] [place], [place] [address]Gu. Milena Rosa Platelet mean volume (Bld) [Entitic vol] 11.6 fL Normal 9.5-13.5 [facility] Comment on above: Performed By: #### C BC ####[facility] [address] [place], [place] [address]Fe. Milena Rosa PLT 217 103/ul Normal 150-450 [facility] Comment on above: Performed By: #### C BC ####[facility] [address] [address]Dr. Milena Rosa RBC 4.08 106/ul Critically low 4.20-5.40 [facility] Comment on above: Performed By: #### C BC ####[facility] [address] [place], [place] [address]Ol. Milena Rosa WBC 6.3 103/ul Normal 4.0-11.0 [facility] Comment on above: Performed By: #### C BC ####[facility] [address] [id number]. Milena Rosa ECHOCARDIO M/2D COMPLETEon 1 ECHOCARDIO M/2D COMPLETE Patient: GIOVANNA RICHARDSON Exam Date: 02/27/2022 : 1940 Gender:F Ordering : DR OVI CROOKS DEliaOElia Admission #: [id number] Family : Order #: [id number] CLICK HERE TO VIEW EXAM ECHOCARDIOGRAM REPORT [...] Christie M.D. on 03/01/2022 at 11:53 Normal [facility] PROF CHEM 8 (BAS METB)on Anion gap [Moles/Vol] 6.1 mmol/L Normal [facility] Comment on above: Performed By: #### B TERESA, TSH #### [facility] Laboratory [address] [address] [address] Milena Rosa Calcium [Mass/Vol] 9.0 mg/dL Normal 8.5-10.1 [facility] Comment on above: Performed By: #### B TERESA, TSH #### [facility] Laboratory [address] [address] [address] Milena Rosa Chloride [Moles/Vol] 103 mmol/L Normal 98-107 [facility] Comment on above: Performed By: #### B TERESA, TSH #### [facility] Laboratory [address] [address] [address] Milena Rosa CO2 [Moles/Vol] 34.4 mmol/L Critically high 21.0-32.0 [facility] Comment on above: Performed By: #### B TERESA, TSH #### [facility] Laboratory [address] [place] [address] Dr[address] Milena Rosa Creatinine [Mass/Vol] 1.21 mg/dL Critically high 0.55-1.02 [facility] Comment on above: Performed By: #### B TERESA, TSH #### [facility] [address] [place] [address] [address] Milena Rosa EGFR-AF MONTENEGRIN 52 mL/min/1.73m2 Critically low >=60 [facility] Comment on above: Performed By: #### B MP, TSH #### [facility] [address] [place] [address] [address] Milena Rosa EGFR-NON AF MONTENEGRIN 43 mL/min/1.73m2 Critically low >=60 [facility] Comment on above: Performed By: #### B MP, TSH #### [facility] [address] [place] [address] [address] Milena Rosa Glucose [Mass/Vol] 101 mg/dL Normal 74-106 [facility] Comment on above: Performed By: #### B MP, TSH #### [facility] [address] [place] [address] Dr. Milena Rosa Potassium [Moles/Vol] 3.5 mmol/L Normal 3.5-5.1 [facility] Comment on above: Performed By: #### B MP, TSH #### [facility] [address] [place] [address] [address] Milena Rosa Sodium [Moles/Vol] 140 mmol/L Normal 136-145 [facility] Comment on above: Performed By: #### B MP, TSH #### [facility] [address] [place] [address] Dr. Milena Rosa Urea nitrogen [Mass/Vol] 20.0 mg/dL Critically high 7.0-18.0 [facility] Comment on above: Performed By: #### B MP, TSH #### [facility] [address] [place] [address] [address] Milena Rosa Urea nitrogen/Creatinine [Mass ratio] 16.5 mg/mg Normal [facility] Comment on above: Performed By: #### B MP, TSH #### [facility] [address] [place] [address] [address] Milena Rosa TSHon 02-27-2022 TSH 1.640 uIU/mL Normal 0.358-3.740 [facility] Comment on above: Performed By: #### B , [facility] #### [facility] [address] [place] [address] [address] Milena Rosa XR CHEST 2 Von [...] WHITNEY FOURNIER Date: 2022-02-27 13:49 Normal The [facility] MRI LSPINE WO CONon 01-10-20 MRI LSPINE [...] by: WILLIAM BERMEO Date: 2022-01-09 16:20 Normal [facility] XR hand BI 3Von 12-21-2021 XR hand BI 3V [facility] Main [place] [address] [place] [address] XRay Report Signed Patient: Giovanna Richardson MR#: [id number] : 1940 Acct:[id number] Age/Sex: 81 / F ADM Date: 12/21/21 Loc: [facility] Room: Type: [facility] Attending Dr: Brina Morrissey MD Copies to: [...] Caal Jr., D.O.12/21/2021 2:31 PM Dictation Location: [place] [address] Transcribed By: [facility] 12/21/21 143 Dictated By: Erasmo Caal Jr, DO 12/21/21 1427 Signed By: 12/21/21 1431 [facility] CBC AUTO DIFFon 09-14-2021 BASO # 0.0 103/ul Normal 0.0-0.1 [facility] Comment on above: Performed By: #### C BC #### [facility] [address] [place] [address] [address] Milena Rosa Basophils/100 WBC (Bld) 0.2 % Normal 0.2-2.0 [facility] Comment on above: Performed By: #### C BC #### [facility] [address] [place] [address] Dr. Milena Rosa EO # 0.1 103/ul Normal 0.0-0.7 [facility] Comment on above: Performed By: #### C BC #### [facility] [address] [place] [address] Dr. Milena Rosa Eosinophils/100 WBC (Bld) 2.8 % Normal 0.9-7.0 [facility] Comment on above: Performed By: #### C BC #### [facility] [address] [place] [address] Dr. Milena Rosa Erythrocyte distribution width (RBC) [Ratio] 13.4 % Normal 11.0-15.0 [facility] Comment on above: Performed By: #### C BC #### [facility] [address] [place] [address] Dr. Milena Rosa Hematocrit (Bld) [Volume fraction] 38.2 % Normal 36.0-48.0 [facility] Comment on above: Performed By: #### C BC #### [facility] [address] [place] [address] Dr. Milena Rosa Hemoglobin (Bld) [Mass/Vol] 12.5 g/dL Normal 12.0-16.0 [facility] Comment on above: Performed By: #### C BC #### [facility] [address] [place] [address] [address] Milena Rosa IG # 0.02 10e3/ul Normal 0.00-0.03 [facility] Comment on above: Performed By: #### C BC #### [facility] [address] [place] [address] Dr. Milena Rosa IG % 0.4 % Normal 0.0-0.5 [facility] Comment on above: Performed By: #### C BC #### [facility] [address] [place] [address] Dr. Milena Rosa LYMPH # 2.1 103/ul Normal 1.2-3.8 [facility] Comment on above: Performed By: #### C BC #### [facility] [address] [place] [address] Dr. Milena Rosa Lymphocytes/100 WBC (Bld) 40.5 % Normal 20.5-60.0 [facility] Comment on above: Performed By: #### C BC #### [facility] [address] [place] [address] Dr. Milena Rosa MANUAL DIFF REQ NO [facility] Comment on above: Performed By: #### C BC #### [facility] [address] [place] [address] Dr. Milena Rosa MCH (RBC) [Entitic mass] 29.7 pg Normal 26.7-34.0 [facility] Comment on above: Performed By: #### C BC #### [facility] [address] [place] [address] Dr. Milena Rosa MCHC (RBC) [Mass/Vol] 32.7 g/dL Normal 29.9-35.2 The [facility] Comment on above: Performed By: #### C BC #### [facility] [address] [place] [address] Dr. Milena Rosa MCV (RBC) [Entitic vol] 90.7 fL Normal 81.0-99.0 [facility] Comment on above: Performed By: #### C BC #### [facility] [address] [place] [address] Dr. Milena Rosa MONO # 0.6 103/ul Normal 0.3-0.8 The [facility] Comment on above: Performed By: #### C BC #### [facility] [address] [place] [address] Dr. Milena Rosa Monocytes/100 WBC (Bld) 12.0 % Normal 1.7-12.0 [facility] Comment on above: Performed By: #### C BC #### [facility] [address] [place] [address] Dr. Milena Rosa NEUT # 2.3 103/ul Normal 1.4-6.5 The [facility] Comment on above: Performed By: #### C BC #### [facility] [address] [place] [address] Dr. Milena Rosa Neutrophils/100 WBC (Bld) 44.1 % Normal 43.0-75.0 [facility] Comment on above: Performed By: #### C BC #### [facility] [address] [place] [address] Dr. Milena Rosa Platelet mean volume (Bld) [Entitic vol] 11.7 fL Normal 9.5-13.5 The [facility] Comment on above: Performed By: #### C BC #### [facility] [address] [place] [address] Dr. Milena Rosa PLT 206 103/ul Normal 150-450 [facility] Comment on above: Performed By: #### C BC #### [facility] [address] [place] [address] Dr. Milena Rosa RBC 4.21 106/ul Normal 4.20-5.40 The [facility] Comment on above: Performed By: #### C BC #### [facility] [address] [place] [address] Dr. Milena Rosa WBC 5.1 103/ul Normal 4.0-11.0 The [facility] Comment on above: Performed By: #### C BC #### [facility] [address] [place] [address] Dr. Milena Rosa MG MAMM SCREEN 3D SHERICE CADon 09-14-2021 MG MAMM SCREEN 3D SHERICE CAD Patient: GIOVANNA RICHARDSON Exam Date: 09/14/2021 : 1940 Gender:F Ordering : DR OVI CROOKS D.O. Admission #: [id number] Family : Order #: [id number] CLICK HERE TO VIEW EXAM RADIOLOGY REPORT [...] Treatments None Family Cancers None LOCATION: The [facility] BREAST COMPOSITION: Scattered areas fibroglandular density. FINDINGS: [...] Ziegler MD on 09/14/2021 at 10:42 Normal [facility] PROF CHEM 8 (BAS METB)on Anion gap [Moles/Vol] 10.5 mmol/L Normal [facility] Comment on above: Performed By: #### B MP #### [facility] [address] [place] [address] [address] Milena Rosa Calcium [Mass/Vol] 9.5 mg/dL Normal 8.5-10.1 [facility] Comment on above: Performed By: #### B MP #### [facility] [address] [place] [address] [address] Milena Rosa Chloride [Moles/Vol] 101 mmol/L Normal 98-107 [facility] Comment on above: Performed By: #### B MP #### [facility] [address] [address] [address] Milena Rosa CO2 [Moles/Vol] 31.1 mmol/L Normal 21.0-32.0 The [facility] Comment on above: Performed By: #### B MP #### [facility] [address] [place] [address] Dr. Milena Rosa Creatinine [Mass/Vol] 1.01 mg/dL Normal 0.55-1.02 [facility] Comment on above: Performed By: #### B MP #### [facility] [address] [place] [address] Dr. Milena Rosa EGFR-AF MONTENEGRIN >60 Normal >=60 The [facility] Comment on above: Performed By: #### B MP #### [facility] [address] [place] [address] Dr. Milena Rosa EGFR-NON AF MONTENEGRIN 53 mL/min/1.73m2 Critically low >=60 The [facility] Comment on above: Performed By: #### B MP #### [facility] [address] [place] [address] Dr. Milena Rosa Glucose [Mass/Vol] 96 mg/dL Normal 74-106 [facility] Comment on above: Performed By: #### B MP #### [facility] [address] [place] [address] Dr. Milena Rosa Potassium [Moles/Vol] 3.6 mmol/L Normal 3.5-5.1 The [facility] Comment on above: Performed By: #### B MP #### [facility] [address] [address] [address] Milena Rosa Sodium [Moles/Vol] 139 mmol/L Normal 136-145 [facility] Comment on above: Performed By: #### B MP #### [facility] [address] [place] [address] Dr. Milena Rosa Urea nitrogen [Mass/Vol] 20.0 mg/dL Critically high 7.0-18.0 The [facility] Comment on above: Performed By: #### B MP #### [facility] [address] [place] [address] Dr. Milena Rosa Urea nitrogen/Creatinine [Mass ratio] 19.8 mg/mg Normal [facility] Comment on above: Performed By: #### B #### [facility] [address] [place] [address] [address] Milena Rosa Coding Summary.on 12-26-2017 Coding Summary. CODING DATE: 12/26/2017 FINAL [facility] STATUS: Home (Routine DC) PAYOR: Medicare APC DESCRIPTION 5481 Laser Eye Procedures ADMIT DX: REASON FOR VISIT DX: H26.492 Other secondary cataract, left eye FINAL DX: PRINCIPAL: H26.492 Other secondary cataract, left eye SECONDARY: PYMT PROC APC STAT DESCRIPTION DOCTOR NAME DATE 66912 5481 T Discission of secondary Zahler DOMeronQuinn 12/25/2017 membranous cataract (opacified posterior lens capsule [...] in slightly different terminology. Revised Coded By: sIha Eddy Revised Date Saved: 12/26/2017 11:03 am [address] [facility] Coding Summary.on 12-19-2017 Coding Summary. CODING DATE: 12/19/2017 FINAL [facility] STATUS: Home (Routine DC) PAYOR: Medicare APC DESCRIPTION 5481 Laser Eye Procedures ADMIT DX: REASON FOR VISIT DX: H26.40 Unspecified secondary cataract FINAL DX: PRINCIPAL: H26.40 Unspecified secondary cataract SECONDARY: PYMT PROC APC STAT DESCRIPTION DOCTOR NAME DATE 85467 5481 T Discission of secondary Shelleyhler DOMeronQuinn [...] 12/19/2017 09:21 am Normal [facility] Vital Signs Date Time Vital Sign Value Performing Clinician Facility 07-20-2023 09:05-0400 Body height 151.13 cm [facility] 07-20-2023 09:05-0400 Body mass index (BMI) [Ratio] 29.8 kg/m2 [facility] 07-20-2023 09:05-0400 Body weight 68.2 kg [facility] 07-20-2023 09:05-0400 Diastolic blood pressure 71 mm[Hg] [facility] 07-20-2023 09:05-0400 Heart rate 62 /min [facility] 07-20-2023 09:05-0400 Respiratory rate 12 /min [facility] 07-20-2023 09:05-0400 Systolic blood pressure 112 mm[Hg] [facility] 02-20-2023 16:00-0400 Body height Ovi Ball Other [facility] Other 02-20-2023 16:00-0400 Body mass index (BMI) [Ratio] 30.44 kg/m2 Ovi Ball Other [facility] Other 02-20-2023 16:00-0400 Body weight 69.54 kg Ovi Ball Other [facility] Other 02-20-2023 16:00-0400 Diastolic blood pressure 78 mm[Hg] Ovi Ball Other [facility] Other 02-20-2023 16:00-0400 Respiratory rate 12 /min Ovi Ball Other [facility] Other 02-20-2023 16:00-0400 Systolic blood pressure 144 mm[Hg] Ovi Ball Other [facility] Other 07-17-2022 16:30-0400 Body height Ovi Ball Other [employer] Other 07-17-2022 16:30-0400 Body mass index (BMI) [Ratio] 31.33 kg/m2 Ovi Ball Other [employer] Other 07-17-2022 16:30-0400 Body weight 71.58 kg Ovi Ball Other [employer] Other 07-17-2022 16:30-0400 Diastolic blood pressure 75 mm[Hg] Ovi Valeriy Other [employer] Other 07-17-2022 16:30-0400 Respiratory rate 12 /min Ovi Ball Other [employer] Other 07-17-2022 16:30-0400 Systolic blood pressure 122 mm[Hg] Ovi Crooks Other [employer] Other 12-21-2021 11:00-0400 Body height Brina Morrissey Other [employer] Other Encounters Encounter Date Encounter Type Care Provider Facility Start: 09-26-2023 End: 09-26-2023 ambulatory TORRES H TIMMIS Not Available Start: 08-15-2023 End: 08-15-2023 ambulatory TORRES H TIMMIS Not Available Start: 07-20-2023 End: 07-20-2023 ambulatory [facility] Work Phone: Start: 07-20-2023 End: 07-20-2023 Patient encounter procedure [facility] Work Phone: Start: 07-04-2023 End: 07-04-2023 Patient encounter procedure [facility] Work Phone: Start: 04-17-2023 End: 04-17-2023 ambulatory Ovi Crooks Other [employer] Other Start: 04-17-2023 Telephone encounter Ovi Ball [facility] Start: 03-13-2023 End: 03-13-2023 ambulatory Ovi Ball Other [employer] Other Start: 03-13-2023 Telephone encounter Ovi Ball [facility] Start: 03-07-2023 End: 03-07-2023 ambulatory Ovi Ball Other [employer] Other Start: 03-07-2023 Telephone encounter Ovi Ball [facility] Start: 03-01-2023 End: 03-01-2023 ambulatory Ovi Ball Other [employer] Other Start: 03-01-2023 Telephone encounter Ovi Ball [facility] Start: 02-28-2023 End: 02-28-2023 ambulatory Ovi Ball Other [employer] Other Start: 02-28-2023 Telephone encounter Ovi Ball [facility] Start: 02-22-2023 End: 02-22-2023 ambulatory Ovi Ball Other [employer] Other Start: 02-22-2023 Telephone encounter Ovi Ball [facility] Start: 02-21-2023 End: 02-21-2023 ambulatory Ovi Ball Other [employer] Other Start: 02-21-2023 Telephone encounter Ovi Ball [facility] Start: 02-20-2023 End: 02-20-2023 ambulatory Ovi Ball Other [employer] Other Start: 02-20-2023 Office outpatient vi sit 25 minutes Ovi Ball [facility] Start: 01-23-2023 End: 01-23-2023 ambulatory Ovi Ball Other [employer] Other Start: 01-23-2023 Telephone encounter Ovi Ball [facility] Start: 01-16-2023 End: 01-16-2023 ambulatory Brina Morrissey Other [employer] Other Start: 01-16-2023 Office outpatient vi sit 15 minutes Brina GUERRERO [facility] Start: 01-05-2023 End: 01-05-2023 ambulatory [facility] Start: 11-23-2022 ambulatory DAVID KAPOOR . Facili ty:[facility] Start: 09-01-2022 End: 09-02-2022 ambulatory DAVID KAPOOR . Facility:[facility] Start: 07-31-2022 End: 07-31-2022 ambulatory Brina Morrissey Other [employer] Other Start: 07-31-2022 Telephone encounter Brina Wright [facility] Start: 07-26-2022 End: 07-27-[address] OVI CROOKS Facility:[facility] Start: 07-26-2022 End: 07-26-2022 ambulatory [facility] Start: 07-25-2022 End: 07-25-2022 ambulatory NARENDRANATH LAKSHMIPATHY . Facility:[facility] Start: 07-20-2022 End: 07-21-2022 ambulatory NARENDRANATH LAKSHMIPATHY . Facility:[facility] Start: 07-19-2022 End: 07-20-[address]VI CROOKS [facility] Other Start: 07-19-2022 Telephone encounter Ovi IBARRA [facility] Start: 07-17-2022 End: 07-17-2022 ambulatory Ovi Crooks Other [facility] [facility] [employer] Other Start: 07-17-2022 Patient encounter procedure Ovi GUERRERO [facility] Start: 06-20-2022 End: 06-20-[address] ELIZABETH JESSICA . Facility:[facility] Start: 06-07-2022 Telephone encounter Brina Wright [facility] Start: 06-07-2022 End: 06-07-2022 ambulatory JEMAL MEDEIROS [employer] Other Start: 05-20-2022 Encounter for preprocedural laboratory examination JEMAL MEDEIROS [facility] Start: 05-15-2022 End: 05-16-2022 ambulatory JEMAL [...] 01-18-2022 End: 01-18-2022 ambulatory Brina Morrissey Other [employer] Other Start: 01-18-2022 Office outpatient vi sit 15 minutes Brina Calvey [facility] Start: 01-09-2022 End: 01-10-2022 ambulatory MARY CRISTOBAL . Facility:[facility] Start: 12-29-2021 End: 12-30-2021 ambulatory MARY CRISTOBAL . Facility:[facility] Start: 12-21-2021 End: 12-21-2021 ambulatory Brina Calvey Other [employer] Other Start: 12-21-2021 Office outpatient ne w 30 minutes Brina Calvey [facility] Start: 12-21-2021 End: 12-21-2021 Patient encounter procedure MD Brina Morrissey Work Phone: [facility] Start: 12-13-2021 End: 12-13-[address] ELIZABETH JESSICA . Facility:[facility] Start: 12-01-2021 End: 12-02-2021 ambulatory MARY Rodrigez Facility:[facility] Start: 09-14-2021 End: 09-15-[address] OVI CROOKS Facility:[facility] Start: 08-17-2021 Adult health examination Brina Morrissey Other [employer] Other Start: 12-25-2017 End: 12-25-2017 Patient encounter Quinn Armendariz Facility:[facility] Start: 12-18-2017 End: 12-18-2017 Patient encounter Quinn Armendariz Facility:[facility] Procedures Date Procedure Procedure Detail Performing Clinician Start: 07-26-2022 Follow-up visit Follow-up JEMAL MEDEIROS Start: 12-21-2021 Plain X-ray of bilat savital hands MD Brina Morrissey Work Phone: Start: 03-26-2018 Screening for osteoporosis Brina Morrissey Other Start: 08-05-2015 Screening for malign ant neoplasm of colon Brina Morrissey Other Start: 08-05-2015 Screening mammography C oleliz Morrissey Other [employer] 786.2 Brina Morrissey Depression screening Brina Morrissey Other Screening for malign ant neoplasm of breast Brina Morrissey Other Immunizations Immunization Date Immunization Notes Care Provider Antia krishnamurthy 02-17-2022 influenza, high dose seasonal, preservative-free Ovi Crooks Other [employer] Other 02-17-2022 influenza virus vaccine, split virus (incl. purified surface antigen) Brina Morrissey Other [employer] Other 02-17-2022 influenza virus vaccine, unspecified formulation [facility] 04-04-2021 COVID-19 Vaccine Pfi zer - Documentation Purposes Only Ovi Crooks Other [facility] 01-17-2021 influenza virus vaccine, split virus (incl. purified surface antigen) Brina Morrissey Other [employer] [facility] [employer] Other 01-17-2021 influenza virus vaccine, unspecified formulation [facility] 06-17-2020 COVID-19 Vaccine Pfi zer - Documentation Purposes Only Ovi Crooks Other [facility] 05-27-2020 COVID-19 Vaccine Moderna - Documentation Purposes Only Brina Morrissey Other [facility] 05-27-2020 COVID-19 Vaccine Pfi zer - Documentation Purposes Only Ovi Crooks Other [facility] 03-10-2020 influenza virus vaccine, split virus (incl. purified surface antigen) Brina Morrissey Other [facility] [employer] Other 03-10-2020 influenza virus vaccine, unspecified formulation [facility] 03-07-2019 influenza virus vaccine, split virus (incl. purified surface antigen) Brina Morrissey Other [facility] [employer] Other 03-07-2019 influenza virus vaccine, unspecified formulation [facility] 03-27-2018 influenza virus vaccine, split virus (incl. purified surface antigen) Brina Morrissey Other [employer] [facility] [employer] Other 03-27-2018 influenza virus vaccine, unspecified formulation [facility] 03-16-2017 pneumococcal Conjuga te, unspecified formulation; 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: [Need for prophylactic vaccination against Streptococcus pneumoniae (pneumococcus)] Brina Morrissey Other [employer] Other 03-16-2017 pneumococcal polysaccharide vaccine, 23 valent Ovi Crooks Other [facility] 11-17-2016 pneumococcal conjuga te vaccine, 13 valent Ovi Crooks Other [facility] 02-09-2016 influenza virus vaccine, split virus (incl. purified surface antigen) Brina Morrissey Other [employer] Other 02-09-2016 influenza virus vaccine, unspecified formulation [facility] Payers Date Payer Category Payer Medicare [id number] 1957 Medicare [id number] 1957 Unknown [id number] 1940 Unknown [id number] 2.16.84 [id number] 1940 Unknown [id number] 2.16.84 [id number] 1940 Unknown [id number] 2.16.84 [id number] 1940 Unknown [id number] 2.16.84 [id number] 1940 Unknown [id number] 2.16.84 [id number] 1940 Unknown [id number] 2.16.84 [id number] 1940 Unknown [id number] 2.16.84 [id number] 1940 Unknown [id number] 2.16.84 0.1.759873.3.579.2.593 1940 Unknown [id number] 2.16.84 0.1.606768.3.579.2.593 1940 Unknown [id number] 2.16.84 0.1.891519.3.579.2.593 1942 Unknown [id number] 2.16.84 0.1.971113.3.579.2.593 1942 Unknown [id number] 2.16.84 0.1.343472.3.579.2.593 1942 Unknown [id number] 2.16.84 0.1.391610.3.579.2.593 1942 Unknown [id number] 2.16.84 0.1.159375.3.579.2.593 1942 Unknown [id number] 2.16.84 0.1.935704.3.579.2.593 1942 Unknown [id number] 2.16.84 0.1.807635.3.579.2.593 1942 Unknown [id number] 2.16.84 0.1.694327.3.579.2.593 1942 Unknown [id number] 2.16.84 0.1.493625.3.579.2.593 1942 Unknown [id number] 2.16.84 0.1.731659.3.579.2.593 1942 Unknown [id number] 2.16.84 0.1.896183.3.579.2.593 1942 Unknown [id number] 2.16.84 0.1.942164.3.579.2.593 1942 Unknown [id number] 2.16.84 0.1.229165.3.579.2.593 1942 Unknown [id number] 2.16.84 0.1.136501.3.579.2.593 1942 Unknown [id number] 2.16.84 0.1.263932.3.579.2.593 1940 Unknown [id number] 2.16.84 0.1.613391.3.579.2.1259 1940 Unknown [id number] 2.16.84 0.1.384436.3.579.2.1259 Social History Date Type Detail Facility Tobacco smoking status NHIS Unknown if ever smoked [facility] Work Phone: Start: 1940 Sex Assigned At Female F [facility] Sex Assigned At Sex Assigned At Bir [place] [employer] Other Start: 06-28-2023 Tobacco smoking status NHIS Never smoked tobacco (finding) [facility] Clinical Notes 12-01-2021 to 05-18-2023 Note Date & Type Note Facility 05-18-2023 Note We received fax from [facility] requesting patient hold her Plavix [...] them to contact Dr. Arriola for clearance. [facility] 04-17-2023 Evaluation note Encounter Date Diagnosis Assessment Notes Mar, Acute cerebral infarction (ICD-10 - I63.9) Mar, Cerebral atherosclerosis (ICD-10 - I67.2) [employer] [facility] [employer] Other 11-01-2023 Evaluation note* Encounter Date Diagnosis Assessment Notes Treatment Notes Treatment Clinical Notes Feb, Acute cerebral infarction (ICD-10 - I63.9) [employer] Other 11-01-2023 Evaluation note* Encounter Date Diagnosis Assessment Notes Treatment Notes Treatment Clinical Notes Feb, Bruit (ICD-10 - R09.89) [employer] Other 10-25-2023 Evaluation note* Encounter Date Diagnosis Assessment Notes Treatment Notes Treatment Clinical Notes Jan, Transient left leg weakness (ICD-10 - R29.898) Jan, Jerking movements of extremities (ICD-10 - R25.2) [employer] Other 10-24-2023 Evaluation note* Encounter Date Diagnosis [...] the risk for cerebrovascular and cardiovascular disease. [employer] Other 09-19-2023 Evaluation note* Encounter Date Diagnosis [...] Pain in left hand (ICD-10 - M79.642) [employer] Other 09-08-2023 NoteCardiology Clinic Note Chief Complaint: [...] in all muscle groups, (more content not included)...[facility]09-08-2023 NotePatient here for 6 mo follow up CAD, hypertension, and hyperlipidemia. Has not been taking aspirin because she doesn't like taking a lot of pills. Says she's only had chest pain once recently. Sees Dr. Smith and had CT chest in September. [facility]04-03-2023 Evaluation note* Encounter Date Diagnosis Assessment Notes Treatment Notes Treatment Clinical Notes Jul, Pulmonary nodule (ICD-10 - R91.1) RUL 10mm nodule - 06/3022Jul, Cough (ICD9-CM - 786.2) Jul, Mild persistent asthma without complication (ICD-10 - J45.30) [employer] Other 03-29-2023 NoteCardiology Clinic Note Chief Complaint: [...] motor function in all (more content not included)...[facility]03-23-2023 NoteCONSULTATION CONSULTATION DATE: 07/20/2022 TO: [...] be helping some of her pain symptoms.[id number] [facility] note* Encounter Date Diagnosis Assessment Notes Treatment Notes Treatment Clinical Notes Jun, Pulmonary nodule (ICD-10 - R91.1) RUL 10mm nodule - 06/3022 [employer] Other 03-20-2023 Evaluation note* Encounter Date Diagnosis [...] use, the patient reduces the risk for NM, CVA, HTN, cardiac dysrhythmias and sudden cardiac [...] mammogram for breast cancer (ICD-10 - Z12.31) [employer] Other 02-08-2023 Evaluation note* Encounter Date Diagnosis Assessment Notes Treatment Notes Treatment Clinical Notes May, ASHD (arterioscleroti c heart disease) (ICD-10 - I25.10) LHC: moderate, nonobstructive coronary disease - 05/2022 [employer] Other 02-08-2023 NotePatient here for follow up [...] light-headedness. All other systems reviewed and are negative.[facility] 06-07-2022 NoteCardiology Clinic Note Chief [...] Value Ventricular Rate 53 Atrial Rate 53 DC Interval 186 QRS DURATION 142 QT Interval 472 QTC CALCULATION(BAZETT) 442 P [place] 29 R-[place] -35 T Wave [place] 59 Impression Sinus bradycardia Left axis deviation Left bundle branch block Abnormal ECG When compared with ECG of 30-NOV-2008 12:01, Premature atrial comple (more content not included)...[facility]10-27-2022 NoteCONSULTATION CONSULTATION DATE: 02/23/2022 This [...] will be followed in the clinic thereafter.[facility] [id number] Evaluation note* Encounter Date Diagnosis Assessment Notes [...] in both duran ds (ICD-10 - R20.0) [employer] Other 09-01-2022 NoteCONSULTATION CONSULTATION DATE: 12/29/2021 HISTORY [...] patient is in agreement to move forward.[facility] [id number] Evaluation note* Encounter Date Diagnosis Assessment Notes [...] in both duran ds (ICD-10 - R20.0) [employer] Other 08-04-2022 NoteCONSULTATION CONSULTATION DATE: 12/01/2021 HISTORY [...] followed up in the office post procedure.[facility]Evaluation noteNo assessment information availableTrihealth Good Sam[facility] Work Phone: Evaluation noteNo InformationNort [employer] Other Evaluation note* Diagnosis Onset Date Resolution [...] noneactive Screening mammogram for breast cancer noneactive [facility] Work Phone: Hisfwng general Narrative - Reported* Type Description Date Medical History Esophageal reflux Medical History seasonal allergies Medical History DIVINA Medical History Hypertension Surgical History APPENEDECTOMY Surgical History HYSTERECTOMY Surgical History SINUS Surgical History LEFT HAND Surgical History HEART CATH Surgical History CHOLECYSTECTOMY [employer] Other Hisbdve general Narrative - Reported* Type Description Date Medical History Esophageal reflux Medical History seasonal allergies Medical History DIVINA Medical History Hypertension Medical History ASHD (arteriosclerotic heart dis ease) Surgical History APPENEDECTOMY Surgical History HYSTERECTOMY Surgical History SINUS Surgical History LEFT HAND Surgical History HEART CATH Surgical History CHOLECYSTECTOMY Surgical History cardiac catheterization 06/07/22 [employer] Other Hisbxnw general Narrative - Reported* Type Description Date [...] catheterization 06/07/22 Hospitalization History SEE SURGICAL HX [employer] Other Summary Purpose Family History No Family [...] and content) DATE CREATED AUTHOR 12/29/2017 Jaime Mckeon [facility] DATE CREATED AUTHOR AUTHOR'S ORGANIZ ATION 12/25/2021 [facility] DATE CREATED AUTHOR AUTHOR'S ORGANIZ ATION 09/08/2022 [facility] DATE CREATED AUTHOR AUTHOR'S ORGANIZ ATION 05/19/2023 [facility] DATE CREATED AUTHOR AUTHOR'S ORGANIZ ATION 09/27/2023 [facility] EPIC Care Teams (unrecognized [...] BE BASED ON THE PRIMARY CLINICAL RECORDS. [facility] [employer] [facility]. provides no warranty or guarantee of the accuracy or completeness of information in this document.
--- NOTE | 2023-12-26 09:39 | P.CN_ITS ---
Consult Note: HPI Data of Consult Patient: known to practice within the last 3 years Requesting Physician: Kelly Lott NP Primary Care Provider: Ovi Crooks, Consult Narrative Reason for consult: f/u Narrative: Rupali Richardson a pleasant 82 year old female presents for evaluation of chronic low back pain, more so on the right side. Pain today 5-6/10 burning, sharp ache. Pt has found mild benefit from tylenol and gabapentin, stopped baclofen as she did not like the way it made her feel. Patient previously reported 70% improvement for 4 hours after bilateral superior gluteal nerve block immediately following and hours after, however we were not able to proceed with RFA as a blood thinner hold of plavix for 7 days was not approved. Patients would like to discuss proceeding with RFAs at this time, saw Dr Arriola in October and has not been evaluated recently by Dr Crooks. cc:: CC: Kelly Lott NP Review of Systems ROS Status of ROS 10 or more systems reviewed and unremark able except as noted in history and below Musculoskeletal Reports: back pain PFSH PFSH Medical History (Updated 04/12/23 @ 13:12 by Kelly Lott NP) Numbness and tingling ?R20.0 - Anesthesia of skin (ICD-10) ?R20.2 - Paresthesia of skin (ICD-10) Osteoarthritis ?M19.90 - Unspecified osteoarthritis, unspecified site (ICD-10) Upper back pain ?M54.9 - Dorsalgia, unspecified (ICD-10) Low back pain ?M54.50 - Low back pain, unspecified (ICD-10) Acid reflux ?K21.9 - Gastro-esophageal reflux disease without esophagitis (ICD-10) Obesity ?E66.9 - Obesity, unspecified (ICD-10) Sleep apnea ?G47.30 - Sleep apnea, unspecified (ICD-10) Atrial fibrillation ?I48.91 - Unspecified atrial fibrillation (ICD-10) Surgical History 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 - Acquired absence of unspecified finger(s) (ICD-10) S/P lumbar spine operation ?Z98.890 - Other specified postprocedural states (ICD-10) S/P thoracentesis ?Z98.890 - Other specified postprocedural states (ICD-10) S/P sinus surgery ?Z98.890 - Other specified postprocedural states (ICD-10) H/O hand surgery ?Z98.890 - Other specified postprocedural states (ICD-10) H/O cardiac catheterization ?Z98.890 - Other specified postprocedural states (ICD-10) History of hysterectomy ?Z90.710 - Acquired absence of both cervix and uterus (ICD-10) History of cholecystectomy ?Z90.49 - Acquired absence of other specified parts of digestive tract (ICD- 10) Hx of appendectomy ?Z90.49 - Acquired absence of other specified parts of digestive tract (ICD- 10) Meds Home Medications and Allergies Home Medications ?Medication ?Instructions ?Recorded ?Confirmed ?Type atorvastatin 40 mg tablet 40 mg PO DAILY 10/05/22 05/08/23 History baclofen 5 mg tablet 5 mg PO BID 10/05/22 05/08/23 History escitalopram oxalate 10 mg tablet 10 mg PO DAILY 10/05/22 05/08/23 History (Lexapro) gabapentin 100 mg capsule 100 mg PO BID 10/05/22 05/08/23 History isosorbide mononitrate 30 mg 30 mg PO DAILY 10/05/22 05/08/23 History tablet,extended release 24 hr losartan 50 mg tablet 50 mg PO DAILY 10/05/22 05/08/23 History metoprolol tartrate 25 mg tablet 12.5 mg PO DAILY 10/05/22 05/08/23 History oxybutynin chloride 15 mg 15 mg PO DAILY 10/05/22 05/08/23 History tablet,extended release 24 hr clopidogrel .ROUTE DAILY 04/12/23 History Allergies Allergy/AdvReac Type Severity Reaction Status Date / Time midazolam [From Versed] Allergy Unknown Verified 05/08/23 08:46 Exam Constitutional Documenting provider has reviewed patient's vital signs: yes Common normals: no apparent distress, oriented x3, healthy appearing, alert and well nourished General appearance: cooperative HENMT Common normals: normocephalic, hearing grossly normal bilaterally and moist oral mucous membranes Head and scalp: normocephalic Eye Common normals: PERRL Pupil: PERRL Neck & C-Spine Common normals: full ROM General: normal visual inspection Chest Common normals: inspection of chest normal Respiratory Common normals: normal respiratory effort, no retractions and no use of accessory muscles Back & Pelvis Lumbar spine/lower back: ROM limited and straight leg raise negative bilaterally Other: pain with palpation over bilateral superior gluteal nerves pain with michelle/fadir Extremity Common normals: normal to inspection and full ROM Neuro Common normals: oriented x3, CN's II-XII intact bilaterally, moves all extremities, no focal motor deficits, no sensory deficits noted and deep tendon reflexes 2+ bilaterally Sensorium/orientation: alert Gait (neuro): antalgic Motor exam: strength 5/5 throughout and no movement abnormalities noted Psych Common normals: mental status grossly normal, thought process normal, cooperative, affect normal, speech normal and activity/motor behavior normal Speech: normal speech Thought process: normal thought process Results Additional Findings Additional findings: If on a controlled substance or opioids, I have checked an [place]AR[place] report on this patient and there are no aberrancies noted in the prescribing history.??If on a controlled substance or opioid a drug screen was completed and reviewed within the last year, and if there has not been a drug screen completed we ordered one today to monitor higher risk, state monitored pain medication use. As part of providing excellent, safe, comprehensive care, the following was completed at our patient's visit: 1. A medication reconciliation and review to ensure accurate knowledge of current/active medications, including asking our patients to inform us about any [id number] medications or herbal remedies/nutritional supplements/alternative remedies. 2. A review to specifically ensure our patients have had annual screening for screening for depression, screening for tobacco use, and screening for unhealthy alcohol use. For concerning screenings had a discussion with the patient, provided patient education, and recommended follow-up with primary care provider when appropriate. If patient noted with a risk of falling, they received education on strength, gait, and balance training to prevent future risk of falling. Assessment and Plan Assessment and Plan (1) Neuritis: (2) Anticoagulant long-term use: (3) Lumbar radiculopathy: (4) Muscle spasm: Plan right then left superior gluteal nerve RFA under fluoroscopy with Dr Herrmann, risks vs benefits reviewed. we will request 7 day hold of plavix prior to procedure continue current medications f/u 1 month after procedure
== END 2023-12-26 08:59 | disposition home or self-care (01) ==
LOC: PM 08:58
PROVIDERS: PCP Internal Medicine; Visit Provider Nurse Practitioner
DX: M79.2 Neuralgia and neuritis, unspecified (principal); Z79.01 Long term (current) use of anticoagulants; M62.838 Other muscle spasm
CPT/HCPCS: G0463

== ENCOUNTER 2024-03-08 01:08 | Observation (INO) | payer MEDICARE, BC, SELFPAY ==
[2024-03-08] VITALS (67 sets, daily range): BP systolic 76–126; BP diastolic 45–70; PULSE 57–79; TEMP 36.3–37; O2SAT 89–98; BMI 30.7; BMI 32.0
--- NOTE | 2024-03-08 01:15 | ECG_ITS ---
[facility] Test Date: 2024-03-08 Pat Name: GIOVANNA BAUM Department: Room: - Gender: Female Manager Crisis: : 1940 Requested By: [id number] Order Number: [id number] Reading MD: YE MARSHALL Measurements Intervals [place] Rate: 67 P: 26 WI: 166 QRS: 14 QRSD: 130 T: 94 QT: 436 QTc: 451 Interpretive Statements 1100 Sinus rhythm 2550 Left bundle branch block 9150 abnormal ECG Compared to ECG 03/03/2019 11:45:44 Sinus arrhythmia no longer present Electronically Signed On 03-08-2024 6:30:47 EST by YE MARSHALL
--- OUTSIDE RECORDS SUMMARY | 2024-03-08 01:15 | XMS_ITS | CCD ---
Author Organization [facility] Care Team Providers Care Anti Air Warfare Operations Officer Name Role Phone Zahler, Quinn Unavailable Unavailable Zahler, Quinn Unavailable Unavailable Zahler, Quinn Unavailable Unavailable OVI CROOKS~[id number] UNKNOWN Unavailable Unavailable Zahler, Quinn Unavailable Unavailable Zahler, Quinn Unavailable Unavailable Erliner, Quinn Unavailable Unavailable OVI CROOKS~[id number] UNKNOWN Unavailable Unavailable MD Brina Morrissey Attending Provider Brina Morrissey Unavailable Ovi Crooks Unavailable DR OVI CROOKS Primary Care Unavailable CRISTOBAL . MARY Admitting Unavailable RCISTOBAL .MARY Attending Unavailable JESSICA ., DR ELIZABETH [...] DR ELIZABETH Cerna Admitting Unavailable LAKSHMIPATHY ., NARMARIA C Admitting Elodia vailable LAKSHMIPATHY ., RUBEN Attending Elodia vailable LAKSHMIPATHY ., NARENDDYLAN Consulting Elodia vailable VALERIY, DR DIOR Primary Care Unavailable CRISTOBAL ., MARY Consulting Unavailable JESSICA ., DR ELIZABETH Cerna Admitting Unavailable JESSICA ., DR ELIZABETH Cerna Attending Unavailable BALL, DR DIOR Primary Care Unavailable JESSICA ., DR ELIZABETH Cerna Attending Unavailable JESSICA ., DR ELIZABETH Cerna Consulting Unavailable JESSICA ., DR ELIZABETH Cerna Admitting Unavailable BALL, DR DIOR Primary Care Unavailable JLUISLLUVIA Brumfield Consulting Unavailable JESSICA ., DR ELIZABETH Cerna [...] ., NARENDRANATH Admitting Elodia vailable LAKSHMIPATHY ., NARMARIA C Attending Elodia vailable BALL, DR DIOR Primary Care Unavailable JESSICA ., DR ELIZABETH Cerna Attending Unavailable JESSICA ., DR ELIZABETH Cerna Admitting Unavailable BALL, DR DIOR Primary Care Unavailable JESSICA ., DR ELIZABETH Cerna Consulting Unavailable BALL, DR DIOR Admitting Unavailable BALL, DR DIOR Primary Care Unavailable BALL, DR DIOR Attending Unavailable BALL, DR DIOR Consulting Unavailable NEFCY, WHITNEY Consulting Unavailable CRISTOBAL [...] JESSICA ., DR ELIZABETH Cerna Admitting Unavailable CRISTOBAL ., MARY Admitting Unavailable DR OVI CROOKS Primary Care Unavailable MARY WHEELER Attending Unavailable DR OVI CROOKS Consulting Unavailable ELVIE, DR WILLIAM Alas Consulting Unavailable MARY WHEELER Consulting Unavailable JEMAL MEDEIROS Attending Unavailable JEMAL MEDEIROS Attending Unavailable JEMAL MEDEIROS Attending Unavailable TORRES ROSA Attending Unavailable TORRES ROSA Attending Unavailable Ovi Crooks MD Primary Care Provider Allergies Allergy Classification Reported Allergen(s) Allergy Type Date of Onset Reaction(s) Facility (1 source) Midazolam Drug Allergy 7 [facility] Repository (2 sources) Midazolam; 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: [MIDAZOLAM] Drug Allergy 3 Nausea And Vomiting [facility] Repository Medications Current Medications Medication Drug Class(es) Dates Sig (Normalized) Sig (Original) acetaminophen 325 mg / HYDROcodone bitartrate 5 mg oral tablet (10 sources) Opioid Agonist Start: 01-19-2023 take 1 tablet by mouth twice daily as needed for pain HYDROcodone-Acetam inophen 5-325 MG 1 tablet Orally bid as needed for pain for 7 days Dec, Active atorvastatin 40 mg oral tablet (18 sources) HMG-CoA Reductase Inhibitor Start: 05-08-2023 take 1 tablet by mouth once daily [...] formoterol fumarate 0.0045 mg/actuat metered dose inhaler (16 sources) Corticosteroid, beta2-Adrenergic Agonist Start: 07-19-2023 take [...] puffs Inhalation Twice a day Jul, Active take 2 puff(s) by in halation in the morning budesonide-formoterol (Symbicort) 160-4.5 MCG/ACT inhaler Inhale 2 puffs in the morning and 2 puffs before bedtime. Rinse mouth with water after use to reduce aftertaste and incidence of candidiasis. Do not swallow.. Active ciprofloxacin 3 mg/ml ophthalmic solution (5 sources) Quinolone Antimicrobial Start: 07-17-2022 take 2 drop(s) into the eye(s) every four hours Ciprofloxacin HCl 0.3 % 2 drops Ophthalmic every 4 hours while awake for 7 days Jun, Active clopidogrel 75 mg oral tablet (5 sources) P2Y12 Platelet Inhibitor Start: 07-03-2023 End: 01-16-2025 take 1 tablet by mouth once daily clopidogrel (Plavix) 75 MG tablet Indications: Cerebral infarction, left hemisphere (CMS/HCC) Take 1 tablet (75 mg) by mouth Daily 90 tablet 3 01/17/2024 01/16/2025 Active Start: 04-17-2023 take 1 tablet by jose th every twenty-four hours Clopidogrel Bisulfate 75 MG 1 tablet Orally Once a day for 30 days Mar, Active CPAP Machine (18 sources) CPAP Machine Act susu escitalopram 10 mg oral tablet (20 sources) Serotonin Reuptake Inhibitor Start: 07-16-2023 End: 12-10-2023 Escitalopram Oxalate Active 0 .ROUTE .COMPLEX 90 December 10, 2023 6:54am TAKE 1 TABLET EVERY DAY Start: 07-03-2023 End: 07-16-2023 take 1 tablet by mouth once daily Escitalopram Oxalate Discontinued 10 MG PO Daily July 03, 2023 1:00am July 16, 2023 5:05pm FreeTextSig: TAKE 1 TABLET EVERY DAY; Note: Source Status: Taking; Provider: Valeriy Dior ( ) famotidine 20 mg oral tablet (2 sources) Histamine-2 Receptor Antagonist Start: 02-25-2024 take 20 mg by mouth once daily at bedtime Famotidine Active 20 MG PO Daily at bedtime February 25, 2024 12:00am Start: 11-12-2023 take 1 tablet by jose th at bedtime famotidine (Pepcid) 20 MG tablet Indications: LPRD (laryngopharyngeal reflux disease) TAKE 1 TABLET BY MOUTH AT BEDTIME 90 tablet 11/12/2023 Active gabapentin 100 mg oral capsule (20 sources) Anti-epileptic Agent Start: 07-03-2023 take 1 capsule by mouth at bedtime Gabapentin Active 100 MG PO July 03, 2023 1:00am FreeTextSig: TAKE 1 CAPSULE AT BEDTIME; Note: Source Status: Start; Refills: 3; Qty: 90 Capsule; Provider: Valeriy Dior ( ) hydroCHLOROthiazide (20 sources) Thiazide Diuretic Start: 08-28-2023 Hydrochlorothiazide Active 0 .ROUTE .COMPLEX 90 August 28, 2023 4:54pm TAKE 1 TABLET EVERY DAY Start: 07-03-2023 End: 08-28-2023 take 1 tablet by mouth once daily Hydrochlorothiazide Discontinued 25 MG PO Daily July 03, 2023 1:00am August 28, 2023 4:54pm FreeTextSig: TAKE 1 TABLET EVERY DAY; Note: Source Status: Taking; Provider: Valeriy Dior ( ) Hydrochlorothiazide-25 mg 25 mg (2 sources) take 1 tablet by mouth once daily Hydrochlorothiazide-25 mg 25 mg 1 tablet Orally Once a day Active 24 hr isosorbide mononitrate 30 mg extended release oral tablet (18 sources) Nitrate Vasodilator Start : 05-08 take 1 tablet by mouth once daily [...] Active losartan potassium 50 mg oral tablet (20 sources) Angiotensin 2 Receptor Gustavo Start: 07-03-2023 take 1 tablet by mouth once daily Losartan Active 50 MG PO Daily July 03, 2023 1:00am FreeTextSig: TAKE 1 TABLET EVERY DAY; Note: Source Status: Taking; Provider: Valeriy Dior ( ) 24 hr metoprolol succinate 25 mg extended release oral tablet (18 sources) beta-Adrenergic Gustavo Start: 06-19-2023 take 1 tablet by mouth once daily Metoprolol Succinate Active 25 MG PO Daily July 03, 2023 1:00am FreeTextSi tablet Orally Once a day; Note: Source Status: Taking; Provider: Valeriy Dior ( ) take 1 tablet by jose every twenty-four hours Metoprolol Succinate ER 25 MG 1 tablet Orally Once a day Active omeprazole 40 mg delayed release oral capsule (18 sources) Proton Pump Inhibitor Start: 07-03-2023 take 1 capsule by mouth once daily Omeprazole Active 40 MG PO Daily July 03, 2023 1:00am FreeTextSi capsule 30 minutes before morning meal Orally Once a day; Note: Source Status: Taking; Provider: Valeriy Quinn Start: 07-17-2022 take 1 capsule by mo [facility] once daily Omeprazole 40 MG 1 capsule 30 minutes before morning meal Orally Once a day Jun, Active 24 hr oxybutynin chloride 15 mg extended release oral tablet (20 sources) Cholinergic Muscarinic Antagonist Start: 12-10-2023 Oxybutynin Chloride Active 0 .ROUTE .COMPLEX 90 December 10, 2023 6:54am TAKE 1 TABLET EVERY DAY Start: 09-28-2023 oxybutynin XL (Ditropan-XL) 15 MG 24 hr tablet 09/28/2023 Active Start: 07-03-2023 End: 12-10-2023 take 1 tablet by mouth once daily Oxybutynin Chloride Discontinued 1 TAB PO Daily July 03, 2023 1:00am December 10, 2023 6:54am FreeTextSig: TAKE 1 TABLET EVERY DAY; Note: Source Status: Taking; Refills: 3; Qty: 90 Tablet; Provider: Valeriy Dior ( ) oxyBUTYnin Chlor luis ER 15 MG TAKE 1 TABLET EVERY DAY for 90 Active Completed/Discontinued Medications Medication Drug Class(es) Dates Sig (Normalized) Sig (Original) aspirin 81 mg delayed release oral tablet (20 sources) Platelet Aggregation Inhibitor, Nonsteroidal Anti-inflammatory Drug [...] injectable suspension (20 sources) Corticosteroid Start: 12-22-19 22 Kenalog-40 Dec, 20 mg Tylenol Arthritis Pain 650 MG (7 sources) Tylenol Arthriti s Pain 650 MG as directed Orally Not-Taking Tylenol Arthriti s Pain 650 MG as directed Orally Active Problems Active Problems Problem Classification Problem Date Documented Date Episodic/Chronic Acute bronchitis (1 source) Acute bronchitis; 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: [Acute bronchitis due to other specified organisms] Episodic Acute cerebrovascular disease (10 sources) Cerebral infarction; 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: [Cerebral infarction, unspecified] Onset: 10-08-2023 Chronic Asthma (20 sources) Uncomplicated mild persistent asthma; 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: [Mild persistent asthma, uncomplicated] Onset: 08-05-2015 Chronic Cardiac dysrhythmias (3 sources) Paroxysmal atrial fibrillation; 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: [Paroxysmal atrial fibrillation] Onset: 07-26-2022 08-09-2023 Chronic Chronic kidney disease (2 sources) Chronic kidney disease; 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: [Chronic kidney disease, unspecified] 08-02-2023 Chronic Coronary atherosclerosis and other heart disease (20 sources) Coronary arteriosclerosis; 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: [Atherosclerotic heart disease of [place] coronary artery without angina pectoris] Onset: 06-07-2022 Chronic Deficiency and other anemia (2 sources) Anemia; 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: [Anemia, unspecified] 08-02-2023 Episodic Disorders of lipid metabolism (20 sources) Hypercholesterolemia; 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: [Pure hypercholesterolemia, unspecified] Onset: 06-07-2022 Chronic Esophageal disorders (20 sources) Gastroesophageal reflux disease; 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: [GERD [Gastroesophageal reflux disease]] Onset: 07-26-2022 07-18-2023 Chronic Esophageal disorders (2 sources) Esophageal disorders; 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: [Gastro-esophageal reflux disease with esophagitis, without bleeding] Essential hypertension (20 sources) Essential hypertension; 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: [Essential (primary) hypertension] Onset: 03-02-2022 Chronic Genitourinary symptoms and ill-defined conditions (1 source) Urinary incontinence; 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: [Other urinary incontinence] Chronic Genitourinary symptoms and ill-defined conditions (1 source) Dysuria; 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: [Dysuria] Episodic Heart valve disorders (1 source) Rheumatic disorders of both mitral and tricuspid valves; 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: [RHEUMATIC D/O MITRAL TRICUSPID VALV] Onset: 03-02-2022 Chronic Immunizations and screening for infectious disease (1 source) Vaccination given; 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: [Encounter for immunization] Episodic Inflammation; infection of eye (except that caused by tuberculosis or sexually transmitteddisease) (1 source) Unspecified acute conjunctivitis, bilateral Episodic Malaise and fatigue (2 sources) Chronic fatigue, unspecified; 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: [Chronic fatigue syndrome] Onset: 03-02-2022 Chronic Menopausal disorders (1 source) Primary ovarian failure; 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: [Other primary ovarian failure] Onset: 08-05-2015 Chronic Miscellaneous mental health disorders (1 source) Primary insomnia; 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: [Primary insomnia] Onset: 10-08-2023 10-08-2023 Chronic Mood disorders (20 sources) Recurrent major depression in full remission; 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: [Major depressive disorder, recurrent, in full remission] Onset: 12-04-2014 Chronic Mycoses (1 source) Candidiasis of skin and nails; 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: [Candidiasis of skin and nail] Episodic Nutritional deficiencies (1 source) Vitamin D deficiency; 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: [Vitamin D deficiency, unspecified] Onset: 07-21-2017 Chronic Osteoarthritis (20 sources) Arthritis of bilateral first carpometacarpal joints; 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: [Bilateral primary osteoarthritis of first carpometacarpal joints] Onset: 12-14-2015 Resolved: 12-21-2021 Chronic Other aftercare (1 source) Long-term current use of drug therapy; 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: [Other halfway (current) drug therapy] Episodic Other and ill-defined cerebrovascular disease (5 sources) Cerebral atherosclerosis; 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: [Cerebral atherosclerosis] Onset: 08-09-2023 07-18-2023 Chronic Other and ill-defined cerebrovascular disease (3 sources) Cerebral atherosclerosis; 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: [Cerebral atherosclerosis] Chronic Other circulatory disease (1 source) H/O: cardiovascular disease; 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: [Personal history of other diseases of the circulatory system] Episodic Other circulatory disease (1 source) Other specified symptoms and signs involving the circulatory and respiratory systems Episodic Other congenital anomalies (1 source) Congenital spondylolysis of lumbosacral region; 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: [Congenital spondylolysis, lumbosacral region] Onset: 12-14-2015 Chronic Other connective tissue disease (4 sources) Pain in left hand; 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: [Pain in limb] Onset: 12-21-2021 Resolved: 12-21-2021 Episodic Other connective tissue disease (4 sources) Pain in right hand; 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: [Pain in limb] Onset: 12-21-2021 Resolved: 12-21-2021 Episodic Other connective tissue disease (2 sources) Other symptoms and signs involving the musculoskeletal system Episodic Other connective tissue disease (2 sources) Cramp and spasm Episodic Other connective tissue disease (6 sources) Hand pain; 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: [Pain in left hand] 07-04-2023 Episodic Other diseases of bladder and urethra (15 sources) Overactive bladder; 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: [Overactive bladder] Onset: 07-26-2022 08-09-2023 Chronic Other diseases of bladder and urethra (1 source) Overactive bladder Chronic Other ear and sense organ disorders (1 source) Impacted cerumen; 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: [Impacted cerumen, right ear] Episodic Other injuries and conditions due to external causes (1 source) History of fall; 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: [History of falling] Episodic Other lower respiratory disease (19 sources) Cough; 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: [Cough] Episodic Other lower respiratory disease (16 sources) Multiple nodules of lung; 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: [Other nonspecific abnormal finding of lung field] Onset: 07-26-2022 12-03-2023 Episodic Other lower respiratory disease (14 sources) Nodule of lung; 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: [Solitary pulmonary nodule] Episodic Other lower respiratory disease (2 sources) Solitary pulmonary nodule Episodic Other lower respiratory disease (5 sources) Other nonspecific abnormal finding of lung field; 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: [OTH NONSPECIFIC ABN FIND LNG FIELD] Onset: 07-26-2022 Episodic Other nervous system disorders (20 sources) Carpal tunnel syndrome of right wrist; 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: [Carpal tunnel syndrome, right upper limb] 07-03-2023 Chronic Other nervous system disorders (20 sources) Carpal tunnel syndrome of left wrist; 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: [Carpal tunnel syndrome, left upper limb] 07-03-2023 Chronic Other nervous system disorders (6 sources) Carpal tunnel syndrome, right upper limb; 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: [Carpal tunnel syndrome] Onset: 12-21-2021 Resolved: 12-21-2021 Chronic Other nervous system disorders (6 sources) Carpal tunnel syndrome, left upper limb; 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: [Carpal tunnel syndrome] Onset: 12-21-2021 Resolved: 12-21-2021 Chronic Other nervous system disorders (1 source) Other chronic pain; 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: [OTHER CHRONIC PAIN] Onset: 07-23-2022 Chronic Other nervous system disorders (2 sources) Anesthesia of skin Onset: 12-21-2021 Resolved: 12-21-2021 Episodic Other nervous system disorders (1 source) Paresthesia; 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: [Paresthesia of skin] Episodic Other nutritional; endocrine; and metabolic disorders (1 source) Hypercalcemia; 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: [Hypercalcemia] Onset: 07-21-2017 Chronic Other nutritional; endocrine; and metabolic disorders (1 source) Simple obesity ; 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: [Other obesity due to excess calories] Onset: 08-05-2015 Chronic Other nutritional; endocrine; and metabolic disorders (2 sources) Body mass index 30+ - obesity; 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: [Body mass index 31.0-31.9, adult] Onset: 08-05-2015 Chronic Other upper respiratory disease (2 sources) Hoarse; 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: [Dysphonia] 07-20-2023 Episodic Paralysis (1 source) Right hemiparesis; 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: [Hemiplegia, unspecified affecting right dominant side] Onset: 10-08-2023 10-08-2023 Chronic Georgina-; endo-; and myocarditis; cardiomyopathy (except that caused by tuberculosis or sexually transmitted disease) (1 source) Acute pericarditis; 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: [Acute pericarditis, unspecified] Episodic Pulmonary heart disease (15 sources) Secondary pulmonary hypertension; 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: [Other secondary pulmonary hypertension] Onset: 07-26-2022 08-09-2023 Chronic Residual codes; unclassified (19 sources) Obstructive sleep apnea syndrome; 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: [Obstructive sleep apnea (adult) (pediatric)] Onset: 10-06-2016 07-18-2023 Chronic Residual codes; unclassified (5 sources) Obstructive sleep apnea (adult) (pediatric); 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: [Obstructive sleep apnea (adult)(pediatric)] Chronic Residual codes; unclassified (1 source) Hypersomnia; 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: [Hypersomnia, unspecified] Onset: 10-08-2023 10-08-2023 Chronic Residual codes; unclassified (1 source) Postmenopausal state; Translations: [Asymptomatic menopausal state] Episodic Spondylosis; intervertebral disc disorders; other back problems (20 sources) Lumbar spondylosis; Translations: [Spondylosis without myelopathy or radiculopathy, lumbar region] Onset: 12-04-2014 Chronic Unclassified (4 sources) LOW BACK PAIN, UNSPECIFIED; Translations: [LOW BACK PAIN, UNSPECIFIED] Onset: 06-21-2022 Unclassified (1 source) CONTACT W/AND (SUSP) EXPOS COVID-19; Translations: [CONTACT W/AND (SUSP) EXPOS COVID-19] Onset: 05-20-2022 Unclassified (1 source) GASTR-ESOPH RFLX DS ESPHGTS W/O BLD; Translations: [GASTR-ESOPH RFLX DS ESPHGTS W/O BLD] Onset: 03-02-2022 Unclassified (1 source) Other ventricular tachycardia; Translations: [...] 04-28-2022 Episodic Other aftercare (1 source) Other aerographer (current) drug therapy; Translations: [OTH LEGAL RESEARCHER CURRENT DRUG THERAPY] Onset: 09-20-2021 Episodic Other aftercare (1 source) Long-term current use of inhaled steroid; Translations: [mounter (current) use of 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] Onset: 07-26-2022 08-09-2023 Episodic Other gastrointestinal disorders (19 sources) Dysphagia; Translations: [Dysphagia] Onset: 08-15-2023 08-15-2023 Episodic Other infections; including parasitic (1 source) Personal history of other infectious and parasitic diseases; Translations: [History of COVID-19] Onset: 07-26-2022 Resolved: 08-09-2023 08-09-2023 Episodic Other lower respiratory disease (5 sources) Chronic cough; Translations: [Chronic cough] Onset: 07-19-2022 Episodic Other lower respiratory disease (5 sources) Other forms of dyspnea; Translations: [OTHER FORMS OF DYSPNEA] Onset: 02-27-2022 Episodic Other lower respiratory disease (2 sources) Dyspnea; Translations: [Other forms of dyspnea] Onset: 07-26-2022 Resolved: 08-09-2023 08-09-2023 Episodic Other lower respiratory disease (1 source) Hypoxia; Translations: [Hypoxemia] Onset: 10-08-2023 10-08-2023 Episodic Other non-traumatic joint disorders (1 source) Arthralgia of the pelvic region and thigh; Translations: [Pain in joint, pelvic region and thigh] Onset: 01-17-2016 Episodic Other non-traumatic joint disorders (1 source) Arthralgia of the lower leg; Translations: [Pain in joint, lower leg] Onset: 07-26-2018 Episodic Other nutritional; endocrine; and metabolic disorders (2 sources) Obesity; Translations: [Obesity, unspecified] Onset: 01-05-2023 Resolved: 08-09-2023 08-09-2023 Chronic Other nutritional; endocrine; and metabolic disorders (1 source) Overweight; Translations: [Overweight] Onset: 08-05-2015 Episodic Other nutritional; endocrine; and metabolic disorders (1 source) Body mass index 25-29 - overweight; Translations: [Body mass index 29.0-29.9, adult] Onset: 08-05-2015 Episodic Other screening for suspected conditions (not mental disorders or infectious disease) (2 sources) Abnormal findings on diagnostic imaging of other specified body structures; Translations: [Imaging of thorax abnormal] Onset: 07-22-2022 Resolved: 08-09-2023 08-09-2023 Chronic Other screening for suspected conditions (not mental disorders or infectious disease) (9 sources) Encounter for screening mammogram for malignant neoplasm of breast; Translations: [Encounter for screening for diseases of the blood and blood-forming organs and certain disorders involving the immune mechanism] Onset: 03-16-2017 Resolved: 08-09-2023 Episodic Residual codes; unclassified (1 source) Requires influenza virus vaccination; Translations: [Need for prophylactic vaccination and inoculation, Influenza] Onset: 03-27-2018 Episodic Residual codes; unclassified (1 source) Sleep deprivation; Translations: [Sleep deprivation] Onset: 10-08-2023 10-08-2023 Episodic Spondylosis; intervertebral disc disorders; other back problems (9 sources) Radiculopathy, lumbar region; Translations: [Spinal stenosis, lumbar region without neurogenic claudication] Onset: 12-04-2014 Episodic Unclassified (13 sources) NSVT (nonsustained ventricular tachycardia); Translations: [NSVT (nonsustained ventricular tachycardia)] Unclassified (1 source) LOW BACK PAIN, UNSPECIFIED; Translations: [LOW BACK PAIN, UNSPECIFIED] Onset: 07-20-2022 Results Test Name Value Interpretation Reference Range Facility Basophils Auto (Bld) [#/Vol] on 11-07-2023 Basophils (Bld) [#/Vol] 0.0 10 3/uL 0.0-0.1 [facility] Basophils/100 WBC Auto (Bld) on 11-07-2023 Basophils/100 WBC (Bld) 0.4 % 0.2-2.0 [facility] Eosinophils/100 WBC Auto (Bl d)on 11-07-2023 Eosinophils/100 WBC (Bld) 2.6 % 0.9-7.0 [facility] Erythrocyte distribution wid th Auto (RBC) [Ratio]on 11-07-2023 Erythrocyte distribution width (RBC) [Ratio] 13.3 % 11.0-15.0 [facility] Estimated glomerular filtrat ion rate (GFR) non- Americanon 11-07-2023 GFR/1.73 sq M.predicted among non-blacks MDRD (S/P/Bld) [Vol rate/Area] 45 mL/min/{1.73_m2} Low >=60 [facility] Hematocrit Auto (Bld) [Volum e fraction]on 11-07-2023 Hematocrit (Bld) [Volume fraction] 35.4 % Low 36.0-48.0 [facility] Hemoglobin [Mass/volume] in Bloodon 11-07-2023 Hemoglobin (Bld) [Mass/Vol] 11.8 g/dL Low 12.0-16.0 [facility] Iron binding capacity [Mass/ volume] in Serum or Plasmaon 11-07-2023 Iron binding capacity [Mass/Vol] 258.0 ug/dL 250.0-450.0 [facility] Iron saturation [Mass Fracti on] in Serum or Plasmaon 11-07-2023 Iron saturation [Mass fraction] 31.8 % [facility] Laboratory - Chemistry and C hemistry - challengeon 11-07-2023 Calcium [Mass/Vol] 10.0 mg/dL 8.5-10.1 [facility] Chloride [Moles/Vol] 102 mmol/L 98-107 [facility] CO2 [Moles/Vol] 30.7 mmol/L 21.0-32.0 [facility] Cobalamin (Vitamin B12) [Mass/Vol] 344.0 pg/mL 193.0-986.0 [facility] Creatinine [Mass/Vol] 1.17 mg/dL High 0.55-1.02 [facility] Ferritin [Mass/Vol] 154.0 ng/mL 8.0-252.0 [facility] GFR/1.73 sq M.predicted MDRD (S/P/Bld) [Vol rate/Area] 54 mL/min/{1.73_m2} Low >=60 [facility] Glucose [Mass/Vol] 107 mg/dL High 74-106 [facility] Iron [Mass/Vol] 82.0 ug/dL 50.0-170.0 [facility] Potassium [Moles/Vol] 3.5 mmol/L 3.5-5.1 [facility] Sodium [Moles/Vol] 141 mmol/L 136-145 [facility] Urea nitrogen [Mass/Vol] 15.0 mg/dL 7.0-18.0 [facility] Urea nitrogen/Creatinine [Mass ratio] 12.8 mg/mg [facility] Laboratory - Hematology and Cell countson 11-07-2023 Immature granulocytes/100 WBC (Bld) 0.2 % 0.0-0.5 [facility] Leukocytes [#/volume] correc jonnie for nucleated erythrocytes in Blood by Automated counon 11-07-2023 WBC corrected for nucl RBC Auto (Bld) [#/Vol] 5.3 10 3/uL 4.0-11.0 [facility] Lymphocytes Auto (Bld) [#/Vo l]on 11-07-2023 Lymphocytes (Bld) [#/Vol] 1.9 10 3/uL 1.2-3.8 [facility] Lymphocytes/100 WBC Auto (Bl d)on 11-07-2023 Lymphocytes/100 WBC (Bld) 35.4 % 20.5-60.0 [facility] MCH Auto (RBC) [Entitic mass ]on 11-07-2023 MCH (RBC) [Entitic mass] 30.6 pg 26.7-34.0 [facility] MCHC Auto (RBC) [Mass/Vol]on 11-07-2023 MCHC (RBC) [Mass/Vol] 33.3 g/dL 29.9-35.2 [facility] MCV Auto (RBC) [Entitic vol] on 11-07-2023 MCV (RBC) [Entitic vol] 91.7 fL 81.0-99.0 [facility] Monocytes Auto (Bld) [#/Vol] on 11-07-2023 Monocytes (Bld) [#/Vol] 0.6 10 3/uL 0.3-0.8 [facility] Monocytes/100 WBC Auto (Bld) on 11-07-2023 Monocytes/100 WBC (Bld) 12.1 % High 1.7-12.0 [facility] Neutrophils Auto (Bld) [#/Vo l]on 11-07-2023 Neutrophils (Bld) [#/Vol] 2.6 10 3/uL 1.4-6.5 [facility] Neutrophils/100 WBC Auto (Bl d)on 11-07-2023 Neutrophils/100 WBC (Bld) 49.3 % 43.0-75.0 [facility] No Panel Informationon 11-06 Eosinophils # (Auto) 0.1 10 3/uL 0.0-0.7 [facility] Folate 17.80 ng/mL 8.60-58.90 [facility] Immature Granulocyte # (Auto) 0.01 10 3/uL 0.00-0.03 [facility] Platelet mean volume Auto (B ld) [Entitic vol]on 11-07-2023 Platelet mean volume (Bld) [Entitic vol] 12.2 fL 9.5-13.5 [facility] Platelets Auto (Bld) [#/Vol] on 11-07-2023 Platelets (Bld) [#/Vol] 190 10 3/uL 150-450 [facility] RBC Auto (Bld) [#/Vol]on RBC (Bld) [#/Vol] 3.86 10 6/uL Low 4.20-5.[address] [facility] Serum or plasma anion gap de terminationon 11-07-2023 Anion gap [Moles/Vol] 11.8 mmol/L [facility] Office Visiton 01-05-2023 Follow-up visit [id number] Giovanna Richardson 1940 F Date Provider Department Center 01/05/2023 [id number]-LAYNONIBERNYSimran [facility] Family History Problem Relation Age of Onset No Known Problems Mother No Known Problems Father Family Status - Relation Status Age at Mother Father Level of Service:70655 IN OFFICE/OUTPATIENT ESTABLISHED LOW MDM 20-29 MIN Normal [facility] FUNGAL AB QUANTITAIVE DOUBLE IMMUNODIFFUon 07-30-2022 Aspergillus flavus Negative Normal Neg:<1:1 [facility] Comment on above: Performed By: #### F UNGUYI #### [facility] [address] [address] [address] Milena Rosa Aspergillus fumigatus Negative Normal Neg:<1:1 [facility] Comment on above: Performed By: #### F UNGUYI #### [facility] [address] [place] [address] Dr. Milena Rosa Aspergillus niger Negative Normal Neg:<1:1 [facility] Comment on above: Performed By: #### F UNGUYI #### [facility] [address] [address] [address] Milena Rosa Blastomyces Negative Normal Neg:<1:1 [facility] Comment on above: Performed By: #### F UNGUYI #### [facility] [address] [address] [address] Milena Rosa HISTOPLASMA GALACTOMANNAN AG URINEon 07-30-2022 Histoplasma Gal'rosales Ag <0.5 Normal <0.5 ng/mL [facility] Comment on above: Performed By: #### H ISTGAL ####[facility] [address] [address]Dr. Milena Rosa COCCIDIODES IGG/IGM AB BY IF Aon 07-29-2022 Coccidiodes Ab, IgG EIA 0.1 EIA Units Normal [facility] Comment on above: Result Comment: Nega tive <1.0 Indeterminate 1.0-1.4 Positive >1.4 Performed By: #### C OCCABS #### [facility] [address] [address] [address] Milena Rosa Coccidiodes Ab, IgM, EIA 0.0 EIA Units Normal [facility] Comment on above: Result Comment: Nega tive <1.0 Indeterminate 1.0-1.4 Positive >1.4 Performed By: #### C OCCABS #### [facility] [address] [place], [place] [address] Dr. Milena Rosa HISTOPLASMA CAP AB QUANT DID on 07-29-2022 Histoplasma Mycelial CF Ab. Negative Normal Neg:<1:2 [facility] Comment on above: Performed By: #### H ISTDID ####[facility] [address] [place], [place] [address]WsDr. Milena Rosa Histoplasma Yeast CF Ab Negative Normal Neg:<1:2 [facility] Comment on above: Performed By: #### H ISTDID ####[facility] [address] [id number]. Milena Rosa Office Visiton 07-26-2022 Follow-up visit [id number] Giovanna Richardson 1940 F Date Provider Department Center 07/26/2022 3848-JEMAL MEDEIROS [facility] Family History Problem Relation Age of Onset No Known Problems Mother No Known Problems Father Family Status - Relation Status Age at Mother Father Level of Service:83117 IN OFFICE/OUTPATIENT ESTABLISHED MOD MDM 30-39 MIN Reason for Visit and Comments: Follow-up [003638] - 6 weeks- Go over Holter monitor results- Discuss medications Normal [facility] CT CHEST WO CONon 07-19-2022 CT CHEST [...] by: WILLIAM BERMEO Date: 2022-07-19 14:55 Normal [facility] Office Visiton 06-07-2022 Follow-up visit [id number] Giovanna Richardson 1940 F Date Provider Department Center 06/07/2022 3848-JEMAL MEDEIROS [facility] Family History Problem Relation Age of Onset No Known Problems Mother No Known Problems Father Family Status - Relation Status Age at Mother Father Level of Service:34689 IN OFFICE/OUTPATIENT ESTABLISHED MOD MDM 30-39 MIN Reason for Visit and Comments: Post-Cath [731] Normal [facility] CBC AUTO DIFFon 05-15-2022 BASO # 0.0 103/ul Normal 0.0-0.1 [facility] Comment on above: Performed By: #### C BC #### [facility] [address] [place], [place] [address] Dr. Milena Rosa Basophils/100 WBC (Bld) 0.3 % Normal 0.2-2.0 [facility] Comment on above: Performed By: #### C BC #### [facility] [address] [place], [place] [address] Dr. Milena Rosa EO # 0.2 103/ul Normal 0.0-0.7 [facility] Comment on above: Performed By: #### C BC #### [facility] [address] [place] [address] Dr. Milena Rosa Eosinophils/100 WBC (Bld) 2.8 % Normal 0.9-7.0 [facility] Comment on above: Performed By: #### C BC #### [facility] [address] [place] [address] Dr. Milena Rosa Erythrocyte distribution width (RBC) [Ratio] 13.3 % Normal 11.0-15.0 [facility] Comment on above: Performed By: #### C BC #### [facility] [address] [place] [address] Dr. Milena Rosa Hematocrit (Bld) [Volume fraction] 38.5 % Normal 36.0-48.0 [facility] Comment on above: Performed By: #### C BC #### [facility] [address] [place] [address] Dr. Milena Rosa Hemoglobin (Bld) [Mass/Vol] 12.6 g/dL Normal 12.0-16.0 [facility] Comment on above: Performed By: #### C BC #### [facility] [address] [place] [address] Dr. Milena Rosa IG # 0.02 10e3/ul Normal 0.00-0.03 [facility] Comment on above: Performed By: #### C BC #### [facility] [address] [place] [address] Dr. Milena Rosa IG % 0.3 % Normal 0.0-0.5 [facility] Comment on above: Performed By: #### C BC #### [facility] [address] [place] [address] Dr. Milena Rosa LYMPH # 2.5 103/ul Normal 1.2-3.8 [facility] Comment on above: Performed By: #### C BC #### [facility] [address] [place] [address] Dr. Milena Rosa Lymphocytes/100 WBC (Bld) 37.6 % Normal 20.5-60.0 [facility] Comment on above: Performed By: #### C BC #### [facility] [address] [place] [address] Dr. Milena Rosa MANUAL DIFF REQ NO Normal [facility] Comment on above: Performed By: #### C BC #### [facility] [address] [place] [address] Dr. Milena Rosa MCH (RBC) [Entitic mass] 29.8 pg Normal 26.7-34.0 [facility] Comment on above: Performed By: #### C BC #### [facility] [address] [place] [address] Dr. Milena Rosa MCHC (RBC) [Mass/Vol] 32.7 g/dL Normal 29.9-35.2 [facility] Comment on above: Performed By: #### C BC #### [facility] [address] [place] [address] Dr. Milena Rosa MCV (RBC) [Entitic vol] 91.0 fL Normal 81.0-99.0 [facility] Comment on above: Performed By: #### C BC #### [facility] [address] [place] [address] Dr. Milena Rosa MONO # 0.7 103/ul Normal 0.3-0.8 [facility] Comment on above: Performed By: #### C BC #### [facility] [address] [place] [address] Dr. Milena Rosa Monocytes/100 WBC (Bld) 10.0 % Normal 1.7-12.0 [facility] Comment on above: Performed By: #### C BC #### [facility] [address] [place] [address] Dr. Milena Rosa NEUT # 3.3 103/ul Normal 1.4-6.5 [facility] Comment on above: Performed By: #### C BC #### [facility] [address] [place] [address] Dr. Milena Rosa Neutrophils/100 WBC (Bld) 49.0 % Normal 43.0-75.0 [facility] Comment on above: Performed By: #### C BC #### [facility] [address] [place] [address] Dr. Milena Rosa Platelet mean volume (Bld) [Entitic vol] 11.5 fL Normal 9.5-13.5 [facility] Comment on above: Performed By: #### C BC #### [facility] [address] [place] [address] Dr. Milena Rosa PLT 201 103/ul Normal 150-450 [facility] Comment on above: Performed By: #### C BC #### [facility] [address] [place] [address] Dr. Milena Rosa RBC 4.23 106/ul Normal 4.20-5.40 [facility] Comment on above: Performed By: #### C BC #### [facility] [address] [place] [address] Dr. Milena Rosa WBC 6.7 103/ul Normal 4.0-11.0 [facility] Comment on above: Performed By: #### C BC #### [facility] [address] [place] [address] Dr. Milena Rosa [facility]on [facility]30 SARS-CoV-2 (COVID-19) RNA RADHA+probe Ql (Unsp spec) Not detected Normal NOT DETECTED [facility] Comment on above: Result Comment: This test is not yet approved or cleared by the [place] FDA. When there are no FDA-approved or cleared tests available, and other criteria are met, FDA can make tests available under an emergency access mechanism called an Emergency Use Authorization (EUA). The EUA for this test is supported by the Supervisor [employer] of Health and Human Service's (HHS's) declaration [...] consistent with SARS-CoV-2. Performed By: #### C VDTBH ####[facility] [address] [place], [place] [address]JdDr. Milena Rosa PROF CHEM 8 (BAS METB)on Anion gap [Moles/Vol] 13.1 mmol/L Normal [facility] Comment on above: Performed By: #### B MP #### [facility] [address] [address] [address] Milena Rosa Calcium [Mass/Vol] 9.8 mg/dL Normal 8.5-10.1 [facility] Comment on above: Performed By: #### B MP #### [facility] [address] [address] [address] Milena Rosa Chloride [Moles/Vol] 103 mmol/L Normal 98-107 [facility] Comment on above: Performed By: #### B MP #### [facility] [address] [address] [address] Milena Rosa CO2 [Moles/Vol] 26.7 mmol/L Normal 21.0-32.0 [facility] Comment on above: Performed By: #### B MP #### [facility] [address] [address] [address] Milena Rosa Creatinine [Mass/Vol] 0.95 mg/dL Normal 0.55-1.02 [facility] Comment on above: Performed By: #### B MP #### [facility] [address] [address] [address] Milena Rosa EGFR-AF COLOMBIAN >60 Normal >=60 [facility] Comment on above: Performed By: #### B MP #### [facility] [address] [address] [address] Milena Rosa EGFR-NON AF COLOMBIAN 57 mL/min/1.73m2 Critically low >=60 [facility] Comment on above: Performed By: #### B MP #### [facility] [address] [address] [address] Milena Rosa Glucose [Mass/Vol] 93 mg/dL Normal 74-106 [facility] Comment on above: Performed By: #### B MP #### [facility] [address] [address] [address] Milena Rosa Potassium [Moles/Vol] 3.8 mmol/L Normal 3.5-5.1 [facility] Comment on above: Performed By: #### B MP #### [facility] [address] [address] [address] Milena Rosa Sodium [Moles/Vol] 139 mmol/L Normal 136-145 [facility] Comment on above: Performed By: #### B MP #### [facility] [address] [address] [address] Milena Rosa Urea nitrogen [Mass/Vol] 18.0 mg/dL Normal 7.0-18.0 [facility] Comment on above: Performed By: #### B MP #### [facility] [address] [address] [address] Milena Rosa Urea nitrogen/Creatinine [Mass ratio] 18.9 mg/mg Normal [facility] Comment on above: Performed By: #### B MP #### [facility] [address] [address] [address] Milena Rosa NM STRESS/REST MULTIon 04-28 NM STRESS/REST MULTI Patient: GIOVANNA RICHARDSON Exam Date: 04/28/2022 : 1940 Gender:F Ordering : DR OVI CROOKS D.O. Admission #: [id number] Family : Order #: [id number] CLICK HERE TO VIEW EXAM RADIOLOGY REPORT [...] MD on 04/28/2022 at 14:26 Normal [facility] CBC AUTO DIFFon 02-27-2022 BASO # 0.0 103/ul Normal 0.0-0.1 [facility] Comment on above: Performed By: #### C BC ####[facility] [address] [place], [place] [address]Dr. Milena Rosa Basophils/100 WBC (Bld) 0.5 % Normal 0.2-2.0 [facility] Comment on above: Performed By: #### C BC ####[facility] [address] [place], [place] [address]Dr. Kimberleychinedu Rosa EO # 0.1 103/ul Normal 0.0-0.7 [facility] Comment on above: Performed By: #### C BC ####[facility] [address] [place], [place] [address]Dr. Kimberleychinedu Rosa Eosinophils/100 WBC (Bld) 1.9 % Normal 0.9-7.0 [facility] Comment on above: Performed By: #### C BC ####[facility] [address] [address]Dr. Kimberleychinedu Rosa Erythrocyte distribution width (RBC) [Ratio] 14.3 % Normal 11.0-15.0 [facility] Comment on above: Performed By: #### C BC ####[facility] [address] [address]Dr. Milena Rosa Hematocrit (Bld) [Volume fraction] 37.6 % Normal 36.0-48.0 [facility] Comment on above: Performed By: #### C BC ####[facility] [address] [address]Dr. Milena Rosa Hemoglobin (Bld) [Mass/Vol] 12.6 g/dL Normal 12.0-16.0 [facility] Comment on above: Performed By: #### C BC ####[facility] [address] [address]Dr. Milena Rosa IG # 0.02 10e3/ul Normal 0.00-0.03 [facility] Comment on above: Performed By: #### C BC ####[facility] [address] [address]Dr. Milena Rosa IG % 0.3 % Normal 0.0-0.5 [facility] Comment on above: Performed By: #### C BC ####[facility] [address] [place], [place] [address]Dr. Milena Rosa LYMPH # 2.1 103/ul Normal 1.2-3.8 The [facility] Comment on above: Performed By: #### C BC ####[facility] [address] [place], [place] [address]Dr. Milena Rosa Lymphocytes/100 WBC (Bld) 33.2 % Normal 20.5-60.0 [facility] Comment on above: Performed By: #### C BC ####[facility] [address] [place], [place] [address]Dr. Milena Rosa MANUAL DIFF REQ NO Normal [facility] Comment on above: Performed By: #### C BC ####[facility] [address] [place], [place] [address]Dr. Kimberleychinedu Rosa MCH (RBC) [Entitic mass] 30.9 pg Normal 26.7-34.0 [facility] Comment on above: Performed By: #### C BC ####[facility] [address] [address]Dr. Milena Rosa MCHC (RBC) [Mass/Vol] 33.5 g/dL Normal 29.9-35.2 [facility] Comment on above: Performed By: #### C BC ####[facility] [address] [address]Dr. Milena Rosa MCV (RBC) [Entitic vol] 92.2 fL Normal 81.0-99.0 [facility] Comment on above: Performed By: #### C BC ####[facility] [address] [address]Dr. Milena Rosa MONO # 0.6 103/ul Normal 0.3-0.8 [facility] Comment on above: Performed By: #### C BC ####[facility] [address] [place], [place] [address]Dr. Milena Rosa Monocytes/100 WBC (Bld) 8.9 % Normal 1.7-12.0 [facility] Comment on above: Performed By: #### C BC ####[facility] [address] [place], [place] [address]Dr. Milena Rosa NEUT # 3.5 103/ul Normal 1.4-6.5 The [facility] Comment on above: Performed By: #### C BC ####[facility] [address] [place], [place] [address]Dr. Milena Rosa Neutrophils/100 WBC (Bld) 55.2 % Normal 43.0-75.0 [facility] Comment on above: Performed By: #### C BC ####[facility] [address] [id number]. Milena Rosa Platelet mean volume (Bld) [Entitic vol] 11.6 fL Normal 9.5-13.5 [facility] Comment on above: Performed By: #### C BC ####[facility] [address] [place], [place] [id number]. Milena Rosa PLT 217 103/ul Normal 150-450 [facility] Comment on above: Performed By: #### C BC ####[facility] [address] [place], [place] [address]Wo. Milena Rosa RBC 4.08 106/ul Critically low 4.20-5.40 The [facility] Comment on above: Performed By: #### C BC ####[facility] [address] [place], [place] [address]ZqElia Rosa WBC 6.3 103/ul Normal 4.0-11.0 [facility] Comment on above: Performed By: #### C BC ####[facility] [address] [place], [place] [address]Vv. Milena Rosa ECHOCARDIO M/2D COMPLETEon 1 ECHOCARDIO M/2D COMPLETE Patient: GIOVANNA RICHARDSON Exam Date: 02/27/2022 : 1940 Gender:F Ordering : DR OVI CROOKS D.O. Admission #: [id number] Family : Order #: [id number] CLICK HERE TO VIEW EXAM ECHOCARDIOGRAM REPORT [...] Christie M.D. on 03/01/2022 at 11:53 Normal [facility] PROF CHEM 8 (BAS B)on Anion gap [Moles/Vol] 6.1 mmol/L Normal [facility] Comment on above: Performed By: #### B TERESA, TSH #### [facility] [address] [address] [address] Milena Rosa Calcium [Mass/Vol] 9.0 mg/dL Normal 8.5-10.1 [facility] Comment on above: Performed By: #### B TERESA, TSH #### [facility] [address] [address] [address] Milena Rosa Chloride [Moles/Vol] 103 mmol/L Normal 98-107 [facility] Comment on above: Performed By: #### B TERESA, TSH #### [facility] [address] [place] [address] Dr. Milena Rosa CO2 [Moles/Vol] 34.4 mmol/L Critically high 21.0-32.0 [facility] Comment on above: Performed By: #### B TERESA, TSH #### [facility] [address] [place] [address] Dr. Milena Rosa Creatinine [Mass/Vol] 1.21 mg/dL Critically high 0.55-1.02 [facility] Comment on above: Performed By: #### B TERESA, TSH #### [facility] [address] [place] [address] Dr. Milena Rosa EGFR-AF COLOMBIAN 52 mL/min/1.73m2 Critically low >=60 [facility] Comment on above: Performed By: #### B TERESA, TSH #### [facility] [address] [place] [address] Dr. Milena Rosa EGFR-NON AF COLOMBIAN 43 mL/min/1.73m2 Critically low >=60 [facility] Comment on above: Performed By: #### B TERESA, TSH #### [facility] [address] [place] [address] Dr. Milena Rosa Glucose [Mass/Vol] 101 mg/dL Normal 74-106 [facility] Comment on above: Performed By: #### B TERESA, TSH #### [facility] [address] [address] [address] Milena Rosa Potassium [Moles/Vol] 3.5 mmol/L Normal 3.5-5.1 [facility] Comment on above: Performed By: #### B MP, TSH #### [facility] [address] [place] [address] Dr. Milena Rosa Sodium [Moles/Vol] 140 mmol/L Normal 136-145 [facility] Comment on above: Performed By: #### B MP, TSH #### [facility] [address] [place] [address] Dr. Milena Rosa Urea nitrogen [Mass/Vol] 20.0 mg/dL Critically high 7.0-18.0 [facility] Comment on above: Performed By: #### B MP, TSH #### [facility] [address] [place] [address] Dr. Milena Rosa Urea nitrogen/Creatinine [Mass ratio] 16.5 mg/mg Normal [facility] Comment on above: Performed By: #### B MP, TSH #### [facility] [address] [place] [address] Dr. Milena Rosa TSHon 02-27-2022 TSH 1.640 uIU/mL Normal 0.358-3.[address] [facility] Comment on above: Performed By: #### B MP, TSH #### [facility] [facility] [address] [place] [address] Dr. Milena Rosa XR CHEST 2 Von [...] WHITNEY FOURNIER Date: 2022-02-27 13:49 Normal The [facility] MRI LSPINE WO CONon 01-10-20 MRI [facility] CON EXAMINATION: MRI [facility] CON HISTORY: Lumbar spondylosis ; chronic lumbar [...] by: WILLIAM BERMEO Date: 2022-01-09 16:20 Normal [facility] XR hand BI 3Von 12-21-2021 XR hand BI 3V [facility] Main [place] [address] [place] [address] XRay Report Signed Patient: Giovanna Richardson MR#: [id number] : 1940 Acct:[id number] Age/Sex: 81 / F ADM Date: 12/21/21 Loc: [facility] Room: Type: [facility] Attending Dr: Brina Morrissey MD Copies [...] hand. Impression dictated by: Erasmo Caal Jr., D.OElia12/21/2021 2:31 PM Dictation Location: [place] [address] Transcribed By: [facility] 12/21/21 1431 Dictated By: Erasmo Caal Jr, DO 12/21/21 1427 Signed By: 12/21/21 1431 [facility] CBC AUTO DIFFon 09-14-2021 BASO # 0.0 103/ul Normal 0.0-0.1 [facility] Comment on above: Performed By: #### C BC #### [facility] [address] [address] [address] Milena Rosa Basophils/100 WBC (Bld) 0.2 % Normal 0.2-2.0 [facility] Comment on above: Performed By: #### C BC #### [facility] [address] [place] [address] Dr. Milena Rosa EO # 0.1 103/ul Normal 0.0-0.7 [facility] Comment on above: Performed By: #### C BC #### [facility] [address] [place] [address] Dr. Milena Rosa Eosinophils/100 WBC (Bld) 2.8 % Normal 0.9-7.0 [facility] Comment on above: Performed By: #### C BC #### [facility] [address] [place] [address] Dr. Milena Rosa Erythrocyte distribution width (RBC) [Ratio] 13.4 % Normal 11.0-15.0 [facility] Comment on above: Performed By: #### C BC #### [facility] [address] [place] [address] Dr. Milena Rosa Hematocrit (Bld) [Volume fraction] 38.2 % Normal 36.0-48.0 [facility] Comment on above: Performed By: #### C BC #### [facility] [address] [place] [address] Dr. Milena Rosa Hemoglobin (Bld) [Mass/Vol] 12.5 g/dL Normal 12.0-16.0 [facility] Comment on above: Performed By: #### C BC #### [facility] [address] [place] [address] Dr. Milena Rosa IG # 0.02 10e3/ul Normal 0.00-0.03 [facility] Comment on above: Performed By: #### C BC #### [facility] [address] [place] [address] Dr. Milena Rosa IG % 0.4 % Normal 0.0-0.5 [facility] Comment on above: Performed By: #### C BC #### [facility] [address] [place] [address] Dr. Milena Rosa LYMPH # 2.1 103/ul Normal 1.2-3.8 [facility] Comment on above: Performed By: #### C BC #### [facility] [address] [place] [address] Dr. Milena Rosa Lymphocytes/100 WBC (Bld) 40.5 % Normal 20.5-60.0 [facility] Comment on above: Performed By: #### C BC #### [facility] [address] [place] [address] Dr. Milena Rosa MANUAL DIFF REQ NO Normal [facility] Comment on above: Performed By: #### C BC #### [facility] [address] [place] [address] Dr. Milena Rosa MCH (RBC) [Entitic mass] 29.7 pg Normal 26.7-34.0 [facility] Comment on above: Performed By: #### C BC #### [facility] [address] [place] [address] Dr. Milena Rosa MCHC (RBC) [Mass/Vol] 32.7 g/dL Normal 29.9-35.2 [facility] Comment on above: Performed By: #### C BC #### [facility] [address] [place] [address] Dr. Milena Rosa MCV (RBC) [Entitic vol] 90.7 fL Normal 81.0-99.0 [facility] Comment on above: Performed By: #### C BC #### [facility] [address] [place] [address] Dr. Milena Rosa MONO # 0.6 103/ul Normal 0.3-0.8 [facility] Comment on above: Performed By: #### C BC #### [facility] [address] [place] [address] Dr. Milena Rosa Monocytes/100 WBC (Bld) 12.0 % Normal 1.7-12.0 [facility] Comment on above: Performed By: #### C BC #### [facility] [address] [place] [address] Dr. Milena Rosa NEUT # 2.3 103/ul Normal 1.4-6.5 [facility] Comment on above: Performed By: #### C BC #### [facility] [address] [place] [address] Dr. iMlena Rosa Neutrophils/100 WBC (Bld) 44.1 % Normal 43.0-75.0 [facility] Comment on above: Performed By: #### C BC #### [facility] [address] [place] [address] Dr. Milena Rosa Platelet mean volume (Bld) [Entitic vol] 11.7 fL Normal 9.5-13.5 [facility] Comment on above: Performed By: #### C BC #### [facility] [address] [address] [address] Milena Rosa PLT 206 103/ul Normal 150-450 [facility] Comment on above: Performed By: #### C BC #### [facility] [address] [place] [address] Dr. Milena Rosa RBC 4.21 106/ul Normal 4.20-5.40 [facility] Comment on above: Performed By: #### C BC #### [facility] [address] [place] [address] Dr. Milena Rosa WBC 5.1 103/ul Normal 4.0-11.0 [facility] Comment on above: Performed By: #### C BC #### [facility] [address] [place] [address] Dr. Milena Rosa MG MAMM SCREEN 3D SHERICE CADon 09-14-2021 MG MAMM SCREEN 3D SHERICE CAD Patient: GIOVANNA RICHARDSON Exam Date: 09/14/2021 : 1940 Gender:F Ordering : DR OVI CROOKS D.O. Admission #: [id number] Family : Order #: [id number] CLICK HERE TO VIEW EXAM RADIOLOGY REPORT [...] Treatments None Family Cancers None LOCATION: [facility] BREAST COMPOSITION: Scattered areas fibroglandular [...] Ziegler MD on 09/14/2021 at 10:42 Normal [facility] PROF CHEM 8 (BAS METB)on Anion gap [Moles/Vol] 10.5 mmol/L Normal [facility] Comment on above: Performed By: #### B MP #### [facility] [address] [place] [address] Dr. Milena Rosa Calcium [Mass/Vol] 9.5 mg/dL Normal 8.5-10.1 [facility] Comment on above: Performed By: #### B MP #### [facility] [address] [place] [address] Dr. Milena Rosa Chloride [Moles/Vol] 101 mmol/L Normal 98-107 [facility] Comment on above: Performed By: #### B MP #### [facility] [address] [place] [address] Dr. Milena Rosa CO2 [Moles/Vol] 31.1 mmol/L Normal 21.0-32.0 [facility] Comment on above: Performed By: #### B MP #### [facility] [address] [address] [address] Milena Rosa Creatinine [Mass/Vol] 1.01 mg/dL Normal 0.55-1.02 [facility] Comment on above: Performed By: #### B MP #### [facility] [address] [place] [address] Dr. Milena Rosa EGFR-AF COLOMBIAN >60 Normal >=60 [facility] Comment on above: Performed By: #### B MP #### [facility] [address] [place] [address] Dr. Milena Rosa EGFR-NON AF COLOMBIAN 53 mL/min/1.73m2 Critically low >=60 [facility] Comment on above: Performed By: #### B MP #### [facility] [address] [address] [address] Milena Rosa Glucose [Mass/Vol] 96 mg/dL Normal 74-106 [facility] Comment on above: Performed By: #### B MP #### [facility] [address] [address] [address] Milena Rosa Potassium [Moles/Vol] 3.6 mmol/L Normal 3.5-5.1 [facility] Comment on above: Performed By: #### B MP #### [facility] [address] [address] [address] Milena Rosa Sodium [Moles/Vol] 139 mmol/L Normal 136-145 [facility] Comment on above: Performed By: #### B MP #### [facility] [address] [address] [address] Milena Rosa Urea nitrogen [Mass/Vol] 20.0 mg/dL Critically high 7.0-18.0 [facility] Comment on above: Performed By: #### B MP #### [facility] [address] [address] [address] Milena Rosa Urea nitrogen/Creatinine [Mass ratio] 19.8 mg/mg Normal [facility] Comment on above: Performed By: #### B MP #### [facility] [address] [address] [address] Milena Rosa Coding Summary.on 12-26-2017 Coding Summary. CODING DATE: 12/26/2017 FINAL [facility] STATUS: Home (Routine DC) PAYOR: Medicare APC DESCRIPTION [address] [facility] Procedures ADMIT DX: REASON FOR VISIT DX: H26.492 Other secondary cataract, left eye FINAL DX: PRINCIPAL: H26.492 Other secondary cataract, left eye SECONDARY: PYMT PROC APC STAT DESCRIPTION DOCTOR NAME DATE 76117 2516 T Discission of secondary Quinn Armendariz DO [...] Eddy Revised Date Saved: 12/26/2017 11:03 am [facility] Coding Summary.on 12-19-2017 Coding Summary. CODING DATE: 12/19/2017 FINAL [facility] STATUS: Home (Routine DC) PAYOR: Medicare APC DESCRIPTION [facility] Procedures ADMIT DX: REASON FOR VISIT DX: H26.40 Unspecified secondary cataract FINAL DX: PRINCIPAL: H26.40 Unspecified secondary cataract SECONDARY: PYMT PROC APC STAT DESCRIPTION DOCTOR NAME DATE 70753 5481 T Discission of secondary Quinn Armendariz [...] Shilpa Perez Date Saved: 12/19/2017 09:21 am [facility] Vital Signs Date Time Vital Sign Value Performing Clinician Facility 02-25-2024 10:040 Body height 151.13 cm [facility] 02-25-2024 10:080400 Body mass index (BMI) [Ratio] 30.4 kg/m2 [facility] 02-25-2024 10:080400 Body weight 69.39 kg [facility] 02-25-2024 10:08-0400 Diastolic blood pressure 70 mm[Hg] [facility] 02-25-2024 10:08-0400 Heart rate 61 /min [facility] 02-25-2024 10:080400 Respiratory rate 12 /min [facility] 02-25-2024 10:080400 Systolic blood pressure 126 mm[Hg] [facility] 07-20-2023 09:05-0400 Body height 151.13 cm [facility] 07-20-2023 09:05-0400 Body mass index (BMI) [Ratio] 29.8 kg/m2 [facility] 07-20-2023 09:05-0400 Body weight 68.2 kg [facility] 07-20-2023 09:05-0400 Diastolic blood pressure 71 mm[Hg] [facility] 07-20-2023 09:05-0400 Heart rate 62 /min [facility] 07-20-2023 09:05-0400 Respiratory rate 12 /min [facility] 07-20-2023 09:05-0400 Systolic blood pressure 112 mm[Hg] [facility] 02-20-2023 16:00-0400 Body height Ovi Ball Other [facility] [employer] Other 02-20-2023 16:00-0400 Body mass index (BMI) [Ratio] 30.44 kg/m2 Ovi Ball Other [facility] [employer] Other 02-20-2023 16:00-0400 Body weight 69.54 kg Ovi Ball Other [facility] [employer] Other 02-20-2023 16:00-0400 Diastolic blood pressure 78 mm[Hg] Ovi Ball Other [facility] [employer] Other 02-20-2023 16:00-0400 Respiratory rate 12 /min Ovi Ball Other [facility] [employer] Other 02-20-2023 16:00-0400 Systolic blood pressure 144 mm[Hg] Ovi Ball Other [facility] [employer] Other 07-17-2022 16:30-0400 Body height Ovi Ball Other [facility] [employer] Other 07-17-2022 16:30-0400 Body mass index (BMI) [Ratio] 31.33 kg/m2 [facility] [employer] Other [facility] Other 07-17-2022 16:30-0400 Body weight 71.58 kg Ovi [employer] Other [facility] Other 07-17-2022 16:30-0400 Diastolic blood pressure 75 mm[Hg] [facility] [employer] Other [facility] Other 07-17-2022 16:30-0400 Respiratory rate 12 /min [facility] [employer] Other [facility] Other 07-17-2022 16:30-0400 Systolic blood pressure 122 mm[Hg] [facility] [employer] Other [facility] Other 12-21-2021 11:00-0400 Body height Brina Morrissey Other [facility] Other Encounters Encounter Date Encounter Type Care Provider Facility Start: 02-25-2024 End: 02-25-2024 ambulatory [facility] Work Phone: Start: 02-25-2024 End: 02-25-2024 Patient encounter procedure [facility] Work Phone: Start: 02-15-2024 End: 02-15-2024 Loki Rosa MD Work Phone: [facility] Comment on above: LPRD (laryngopharyng eal reflux disease) Start: 01-01-2024 End: 01-01-2024 ambulatory [facility] Work Phone: Start: 01-01-2024 End: 01-01-2024 Patient encounter procedure [facility] Work Phone: Start: 11-07-2023 Non-patient / Non-visit [facility] Work Phone: Start: 09-26-2023 End: 09-26-2023 ambulatory TORRES H TIMMIS Not Available Start: 08-15-2023 End: 08-15-2023 ambulatory TORRES H TIMMIS Not Available Start: 07-20-2023 End: 07-20-2023 ambulatory [facility] Work Phone: Start: 07-20-2023 End: 07-20-2023 Patient encounter procedure [facility] Work Phone: Start: 07-04-2023 End: 07-04-2023 Patient encounter procedure [facility] Work Phone: Start: 04-17-2023 End: 04-17-2023 ambulatory Ovi Ball Other [facility] Other Start: 04-17-2023 Telephone encounter Ovi Ball [facility] Start: 03-13-2023 End: 03-13-2023 ambulatory Ovi Ball Other [facility] Other Start: 03-13-2023 Telephone encounter Ovi Ball [facility] Start: 03-07-2023 End: 03-07-2023 ambulatory Ovi Ball Other [facility] Other Start: 03-07-2023 Telephone encounter Ovi Ball [facility] Start: 03-01-2023 End: 03-01-2023 ambulatory Ovi Ball Other [facility] Other Start: 03-01-2023 Telephone encounter Ovi Ball [facility] Start: 02-28-2023 End: 02-28-2023 ambulatory Ovi Ball Other [facility] Other Start: 02-28-2023 Telephone encounter Ovi Ball [facility] Start: 02-22-2023 End: 02-22-2023 ambulatory Ovi Ball Other [facility] Other Start: 02-22-2023 Telephone encounter Ovi IBARRA [facility] Start: 02-21-2023 End: 02-21-2023 ambulatory Ovi Crooks Other [facility] Other Start: 02-21-2023 Telephone encounter Ovi IBARRA [facility] Start: 02-20-2023 End: 02-20-2023 ambulatory Ovi Crooks Other [facility] Other Start: 02-20-2023 Office outpatient vi sit 25 minutes Ovi Crooks [facility] Start: 01-23-2023 End: 01-23-2023 ambulatory Ovi Valeriy Other [facility] Other Start: 01-23-2023 Telephone encounter Ovi IBARRA [facility] Start: 01-16-2023 End: 01-16-2023 ambulatory Brina Morrissey Other [facility] Other Start: 01-16-2023 Office outpatient vi sit 15 minutes [facility] Start: 01-05-2023 End: 01-05-2023 ambulatory [facility] Start: 11-23-2022 ambulatory DAVID KAPOOR . Facili ty:[facility]1 Start: 09-01-2022 End: 09-02-2022 ambulatory DAVID KAPOOR . Facility:[facility] Start: 07-31-2022 End: 07-31-2022 ambulatory Brina Morrissey Other [facility] Other Start: 07-31-2022 Telephone encounter Brina Wright [facility] Start: 07-26-2022 End: 07-27-[address] OVI CROOKS Facility:[facility]1 Start: 07-26-2022 End: 07-26-2022 ambulatory [facility] Start: 07-25-2022 End: 07-25-2022 ambulatory NARENDRANATH LAKSHMIPATHY . Facility:[facility]1 Start: 07-20-2022 End: 07-21-2022 ambulatory NARENDRANATH LAKSHMIPATHY . Facility:[facility]1 Start: 07-19-2022 End: 07-20-[address] OVI CROOKS [facility] [employer] Other Start: 07-19-2022 Telephone encounter Ovi Crooks [facility] Start: 07-17-2022 End: 07-17-2022 ambulatory Ovi Crooks Other [facility] [employer] Other Start: 07-17-2022 Patient encounter procedure Oiv GUERRERO [facility] Start: 06-20-2022 End: 06-20-[address] ELIZABETH JESSICA . Facility:[facility]1 Start: 06-07-2022 Telephone encounter Brina Carinehernan Wright BONILL[facility] Start: 06-07-2022 End: 06-07-2022 ambulatory [facility] Other Start: 05-20-2022 Encounter for preprocedural laboratory examination [facility] Start: 05-15-2022 End: 05-16-2022 ambulatory [facility] Facility:[facility]1 Start: 05-15-2022 End: 05-16-2022 Encounter for preprocedural laboratory examination [facility] Facility:[facility]1 Start: 05-09-[address] ELIZABETH JESSICA [...] 01-18-2022 End: 01-18-2022 ambulatory Brina Morrissey Other [facility] Other Start: 01-18-2022 Office outpatient vi sit 15 minutes Brina Morrissey [facility] Start: 01-09-2022 End: 01-10-2022 ambulatory MARY CRISTOBAL . Facility:[facility]1 Start: 12-29-2021 End: 12-30-2021 ambulatory MARY CRISTOBAL . Facility:[facility]1 Start: 12-21-2021 End: 12-21-2021 ambulatory Brina Morrissey Other [facility] Other Start: 12-21-2021 Office outpatient ne w 30 minutes Brina Morrissey [facility] Start: 12-21-2021 End: 12-21-2021 Patient encounter procedure MD Brina Morrissey Work Phone: [facility] Start: 12-13-2021 End: 12-13-[address] ELIZABETH JESSICA . Facility: Start: 12-01-2021 End: 12-02-2021 ambulatory MARY CRISTOBAL . Facility: Start: 09-14-2021 End: 09-15-[address] OVI CROOKS Facility: Start: 08-17-2021 Adult health examination Brina Morrissey Other [facility] Other Start: 12-25-2017 End: 12-25-2017 Patient encounter Quinn Armendariz [place] Start: 12-18-2017 End: 12-18-2017 Patient encounter Quinn Armendariz Facility[place] Procedures [...] ant neoplasm of breast Brina Morrissey Other Plan of Treatment Date Care Activity Detail Author Start: 04-14-2024 End: 04-14-2024 Patient encounter procedure 04/14/2024 2:20 PM EST Office [facility] [address] [place] [address] Brigitte Yang NP [address] [place], [place] [facility] [address] Start: 12-30-2023 Influenza vaccination Influenza Vacc ine (#1) [facility] Immunizations Immunization Date Immunization Notes Care Provider Fa cili 02-25-2024 influenza, high dose seasonal, preservative-free [facility] 02-17-2022 influenza, high dose seasonal, preservative-free Ovi Crooks Other [facility] [employer] Other 02-17-2022 influenza virus vaccine, split virus (incl. purified surface antigen) Brina Morrissey Other [facility] Other 02-17-2022 influenza virus vaccine, unspecified formulation [facility] 04-04-2021 COVID-19 Vaccine Pfi zer - Documentation Purposes Only Ovi Crooks Other [facility] 01-17-2021 influenza virus vaccine, split virus (incl. purified surface antigen) Brina Morrissey Other [facility] [employer] Other 01-17-2021 influenza virus vaccine, unspecified formulation [facility] 06-17-2020 COVID-19 Vaccine Pfi zer - Documentation Purposes Only Ovi Crooks Other [facility] 05-27-2020 COVID-19 Vaccine Moderna - Documentation Purposes Only Brina Morrissey Other [facility] 05-27-2020 COVID-19 Vaccine Pfi zer - Documentation Purposes Only Ovi Crooks Other [facility] 03-10-2020 influenza virus vaccine, split virus (incl. purified surface antigen) Brina Morrissey Other [facility] [employer] Other 03-10-2020 influenza virus vaccine, unspecified formulation [facility] 03-07-2019 influenza virus vaccine, split virus (incl. purified surface antigen) Brina Morrissey Other [facility] [employer] Other 03-07-2019 influenza virus vaccine, unspecified formulation [facility] 03-27-2018 influenza virus vaccine, split virus (incl. purified surface antigen) Brina Morrissey Other [facility] [employer] Other 03-27-2018 influenza virus vaccine, unspecified formulation [facility] 03-16-2017 pneumococcal Conjuga te, unspecified formulation; Translations: [Need for prophylactic vaccination against Streptococcus pneumoniae (pneumococcus)] Brina Morrissey Other [facility] [employer] Other 03-16-2017 pneumococcal polysaccharide vaccine, 23 valent Ovi Crooks Other [facility] 11-17-2016 pneumococcal conjuga te vaccine, 13 valent Ovi Crooks Other [facility] 02-09-2016 influenza virus vaccine, split virus (incl. purified surface antigen) Brina Morrissey Other [facility] [employer] Other 02-09-2016 influenza virus vaccine, unspecified formulation [facility] Payers Date Payer Category Payer Medicare [id number] 2016 [employer] Blue [employer] BCBS [id number] 2007 Medicare MEDICARE [id number] 1959 Medicare [id number] 1959 Unknown [id number] 1940 Unknown [id number] 2.16840.1.459126.3.579. 2.59 1940 Unknown [id number] 2.16.840.1.171503.3.579. 2.59 1942 Unknown [id number] 2.16.840.1.346713.3.579. 2.59 1942 Unknown [id number] 2.16.840.1.475766.3.579. 2.593 1942 Unknown [id number] 2.16.840.1.569328.3.579. 2.593 1942 Unknown [id number] 2.16.840.1.439418.3.579. 2.593 1942 Unknown [id number] 2.16.840.1.675516.3.579. 2.593 1942 Unknown [id number] 2.16.840.1.182351.3.579. 2.593 1942 Unknown [id number] 2.16.840.1.026837.3.579. 2.593 1942 Unknown [id number] 2.16.840.1.455543.3.579. 2.593 1942 Unknown [id number] 2.16.840.1.146212.3.579. 2.593 1942 Unknown [id number] 2.16.840.1.658933.3.579. 2.593 1942 Unknown [id number] 2.16.840.1.958796.3.579. 2.593 1942 Unknown [id number] 2.16.840.1.988304.3.579. 2.593 1942 Unknown [id number] 2.16.840.1.382040.3.579. 2.593 1942 Unknown [id number] 2.16.840.1.889119.3.579. 2.593 1942 Unknown [id number] 2.16.840.1.359688.3.579. 2.593 1942 Unknown [id number] 2.16.840.1.550743.3.579. 2.593 1942 Unknown [id number] 2.16.840.1.072090.3.579. 2.593 1942 Unknown [id number] 2.16.840.1.586324.3.579. 2.593 1942 Unknown [id number] 2.16.840.1.250572.3.579. 2.593 1942 Unknown [id number] 2.16.840.1.251479.3.579. 2.593 1942 Unknown [id number] 2.16.840.1.623843.3.579. 2.593 1942 Unknown [id number] 2.16.840.1.972662.3.579. 2.593 1942 Unknown [id number] 1940 Unknown [id number] Social History Date Type Detail Facility Tobacco smoking stat us [facility] Unknown if ever smoked [facility] Work Phone: Start: 1940 Sex Assigned At Female F [facility] Start: 10-08-2023 Sex Assigned At N [facility] [employer] Other Start: 06-28-2023 End: 08-09-2023 Tobacco smoking status NHIS Never smoked tobacco (finding) [facility] Start: 08-09-2023 Tobacco use and exposure Smokeless tobacco non-user [facility] Start: 10-08-2023 Alcoholic beverage intake Current drinker of alcohol (finding) [facility] Start: 10-08-2023 History of Social function [facility] How often to you hav e a drink containing alcohol? Monthly or less [facility] How many standard drinks containing alcohol do you have on a typical day? 1 or 2 [facility] How often do you hav e 6 or more drinks on 1 occasion? Never [facility] Start: 10-08-2023 Alcohol Comment caffeine: 1-2 cups per day [facility] Start: 1940 Sex assigned at Not on file [facility] Clinical Notes 12-01-2021 to 05-18-2023 Note Date & Type Note Facility 05-18-2023 Note We received fax from [facility] requesting patient hold her Plavix [...] them to contact Dr. Arriola for clearance. [facility] 04-17-2023 Evaluation note Encounter Date Diagnosis Assessment Notes Mar, Acute cerebral infarction (ICD-10 - I63.9) Mar, Cerebral atherosclerosis (ICD-10 - I67.2) [employer] Other 11-01-2023 Evaluation note* Encounter Date Diagnosis Assessment Notes Treatment Notes Treatment Clinical Notes Feb, Acute cerebral infarction (ICD-10 - I63.9) [facility] Other 11-01-2023 Evaluation note* Encounter Date Diagnosis Assessment Notes Treatment Notes Treatment Clinical Notes Feb, Bruit (ICD-10 - R09.89) [facility] Other 10-25-2023 Evaluation note* Encounter Date Diagnosis Assessment Notes Treatment Notes Treatment Clinical Notes Jan, Transient left leg weakness (ICD-10 - R29.898) Jan, Jerking movements of extremities (ICD-10 - R25.2) [facility] Other 10-24-2023 Evaluation note* Encounter Date Diagnosis [...] the risk for cerebrovascular and cardiovascular disease. [employer] Other 09-19-2023 Evaluation note* Encounter Date Diagnosis [...] Pain in left hand (ICD-10 - M79.642) [facility] Other 09-08-2023 NoteCardiology Clinic Note Chief Complaint: [...] in all muscle groups, (more content not included)...[facility]09-08-2023 NotePatient here for 6 mo follow up CAD, hypertension, and hyperlipidemia. Has not been taking aspirin because she doesn't like taking a lot of pills. Says she's only had chest pain once recently. Sees Dr. Smith and had CT chest in September. [facility]04-03-2023 Evaluation note* Encounter Date Diagnosis Assessment Notes Treatment Notes Treatment Clinical Notes Jul, Pulmonary nodule (ICD-10 - R91.1) RUL 10mm nodule - 06/3022Jul, Cough (ICD9-CM - 786.2) Jul, Mild persistent asthma without complication (ICD-10 - J45.30) [facility] Other 03-29-2023 NoteCardiology Clinic Note Chief Complaint: [...] motor function in all (more content not included)...[facility]03-23-2023 NoteCONSULTATION CONSULTATION DATE: 07/20/2022 TO: Dr. Crooks [...] be helping some of her pain symptoms.[id number] Evaluation note* Encounter Date Diagnosis Assessment Notes Treatment Notes Treatment Clinical Notes Jun, Pulmonary nodule (ICD-10 - R91.1) RUL 10mm nodule - 06/3022 [facility] Other 03-20-2023 Evaluation note* Encounter Date Diagnosis [...] use, the patient reduces the risk for [place], CVA, HTN, cardiac dysrhythmias and sudden cardiac [...] mammogram for breast cancer (ICD-10 - Z12.31) [facility] Other 02-08-2023 Evaluation note* Encounter Date Diagnosis Assessment Notes Treatment Notes Treatment Clinical Notes May, ASHD (arterioscleroti c heart disease) (ICD-10 - I25.10) LHC: moderate, nonobstructive coronary disease - 05/2022 [employer] Other 02-08-2023 NotePatient here for follow up [...] light-headedness. All other systems reviewed and are negative.[facility] 06-07-2022 NoteCardiology Clinic Note Chief Complaint: abnormal [...] Value Ventricular Rate 53 Atrial Rate 53 IN Interval 186 QRS DURATION 142 QT Interval 472 QTC CALCULATION(BAZETT) 442 P [place] 29 R-Estelline -35 T Wave [place] 59 Impression Sinus bradycardia Left axis deviation Left bundle branch block Abnormal ECG When compared with ECG of 30-NOV-2008 12:01, Premature atrial comple (more content not included)...[facility]10-27-2022 NoteCONSULTATION CONSULTATION DATE: 02/23/2022 This is a [...] will be followed in the clinic thereafter.[facility] [id number] Evaluation note* Encounter Date Diagnosis Assessment Notes [...] in both duran ds (ICD-10 - R20.0) [employer] Other 09-01-2022 NoteCONSULTATION CONSULTATION DATE: 12/29/2021 HISTORY [...] patient is in agreement to move forward.[facility] [id number] Evaluation note* Encounter Date Diagnosis Assessment Notes [...] in both duran ds (ICD-10 - R20.0) [facility] Other 08-04-2022 NoteCONSULTATION CONSULTATION DATE: 12/01/2021 HISTORY [...] followed up in the office post procedure.[facility] CenterEvaluation noteNo assessment information availableMercy Health St. [facility] Work Phone: Evaluation noteNo InformationNort [employer] Other Evaluation note* Diagnosis Onset Date Resolution [...] noneactive Screening mammogram for breast cancer noneactive [facility] Work Phone: Evaluation note* Diagnosis Onset Date Resolution Status Arthritis of carpometacarpal (CMC) joint of left thumb acute Arthritis of carpometacarpal (CMC) joint of right thum b acute Carpal tunnel syndrome, left acute Carpal tunnel syndrome, right acute [facility] Work Phone: Evaluation note* Diagnosis LPRD (laryngopharyngeal reflux disease) Acute laryngitis, without mention of obstruction documented in this encounter [facility] HealthcareEvaluation [facility]* Diagnosis Onset Date Resolution Status Arthritis of carpometacarpal (CMC) joint of left thumb acute Arthritis of carpometacarpal (CMC) joint of right thum b acute Carpal tunnel syndrome, left acute Carpal tunnel syndrome, right acute ASHD (arteriosclerotic heart disease) acute Cerebral atherosclerosis acu te Elevated cholesterol acute Lumbar spondylosis acute Major depressive disorder, recurrent, in full remissio n acute Mild persistent asthma without complication acute Obstructive sleep apnea acut e Primary hypertension acute [facility] Work Phone: [employer] general Narrative - Reported* Type Description Date Medical History Esophageal reflux Medical History seasonal allergies Medical History [place] Medical History Hypertension Surgical History APPENEDECTOMY Surgical History HYSTERECTOMY Surgical History SINUS Surgical History LEFT HAND Surgical History HEART CATH Surgical History CHOLECYSTECTOMY [facility] Other [employer] general Narrative - Reported* Type Description Date Medical History Esophageal reflux Medical History seasonal allergies Medical History [place] Medical History Hypertension Medical History ASHD (arteriosclerotic heart dis ease) Surgical History APPENEDECTOMY Surgical History HYSTERECTOMY Surgical History SINUS Surgical History LEFT HAND Surgical History HEART CATH Surgical History CHOLECYSTECTOMY Surgical History cardiac catheterization 06/07/22 [facility] Other [facility]p general Narrative - Reported* Type Description Date [...] catheterization 06/07/22 Hospitalization History SEE SURGICAL HX [facility] Other Summary Purpose Family History Relationship Condition [...] visit, subsequent Screening mammogram for breast cancer Chief Complaint OP SP BILAT HAND TIM N Reason for Visit Arthritis of carpome tacarpal (CMC) joint of left thumb Arthritis of carpometacarpal (CMC) joint of right thumb Carpal tunnel syndrome, left Carpal tunnel syndrome, right Chief Complaint OP SP BILAT HAND TIM N 6 Month Check Up Reason for Visit Arthritis of carpome tacarpal (CMC) joint of left thumb Arthritis of carpometacarpal (CMC) joint of right thumb Carpal tunnel syndrome, left Carpal tunnel syndrome, right ASHD (arteriosclerotic heart disease) Cerebral atherosclerosis Elevated cholesterol Lumbar spondylosis Major depressive disorder, recurrent, in full remission Mild persistent asthma without complication Obstructive sleep apnea Primary hypertension Additional Source Comments INFORMATION SOURCE (unrecogn ized section and content) DATE CREATED AUTHOR 12/29/2017 [place] [facility] DATE CREATED AUTHOR AUTHOR'S ORGANIZ ATION 12/25/2021 [facility] DATE CREATED AUTHOR AUTHOR'S ORGANIZ ATION 09/08/2022 [facility] DATE CREATED AUTHOR AUTHOR'S ORGANIZ ATION 05/19/2023 [facility] DATE CREATED AUTHOR AUTHOR'S ORGANIZ ATION 09/27/2023 [facility] Care Teams (unrecognized sec tion and content) Team Status: Active Member Role Status Dates Ovi Crooks DO Primary Care Provider Active Team Status: Inactive Member Role Status Dates Ovi Crooks DO Primary Care Provider Active Start: January 01, 2024 End: January 01, 2024 Brina Morrissey MD Attending Provider Active Start: January 01, 2024 End: January 01, 2024 Team Status: Inactive Member Role Status Dates Ovi Crooks DO Primary Care Provide r, Attending Provider Active Start: February 25, 2024 End: February 25, 2024 Team Status: Active Member Role Status Dates Ovi Crooks DO Primary Care Provider Active Team Status: Active Member Role Status Dates Ovi Crooks DO Primary Care Provide r, Attending Provider Active Start: November 07, 2023 Team Status: Inactive Member Role Status Dates Ovi Crooks DO Primary Care Provider Active Start: January 01, 2024 End: January 01, 2024 Brina Morrissey MD Attending Provider Active Start: January 01, 2024 End: January 01, 2024 Team Status: Inactive Member Role Status Dates Brina Morrissey MD Attending Provider Active Team Status: Inactive Member Role Status Dates Ovi Crooks DO Primary Care Provider Active Start: July 04, 2023 End: July 04, 2023 Brina Morrissey MD Attending Provider Active Start: July 04, 2023 End: July 04, 2023 Team Status: Inactive Member Role Status Dates Ovi Crooks DO Primary Care Provide r, Attending Provider Active Start: July 20, 2023 End: July 20, 2023 [employer] Relationship Specialty [place] [address] [place] [id number] PCP - General Internal Medicine 07/10/23 Team Status: Inactive Member Role Status Dates Ovi Crooks DO Primary Care Provide r, Attending Provider Active Start: February 25, 2024 End: February 25, 2024 Goals (unrecognized section and content) Goals may be documented in a n alternate sectionNo InformationNo InformationNo InformationNo InformationNo InformationNo InformationNo InformationNo InformationNo InformationNo InformationNo InformationNo InformationNo InformationNo InformationNo InformationNo InformationNo InformationNo InformationGoals may be documented in an alternate sectionGoals may be documented in an alternate sectionGoals may be documented in an alternate section REASON FOR VISIT (unrecogniz ed section and content) Reason Comments Med Refill FOR RECORDS PERTAINING TO PATIENTS WHO ARE [...] BE BASED ON THE PRIMARY CLINICAL RECORDS. [employer] [facility]. provides no warranty or guarantee of the accuracy or completeness of information in this document.
--- NOTE | 2024-03-08 01:27 | ED_ITS ---
Documented by User: Marin Chase MD 03/11/24 19:25 HPI - Chest Pain General Chief Complaint: Chest Pain Stated Complaint: chest pain Time Seen by Provider: 03/08/24 01:23 Source: patient Mode of arrival: Wheelchair Limitations: no limitations History of Present Illness HPI narrative: presents complaining of pain left shoulder and neck. States she developed left shoulder pain before going to bed. She decided to go to bed hoping it would be better in the AM. States she woke up in the middle of the night to go to the bathroom and the pain was worse and she also felt weak. States pain then was also present on her left side. Points to left flank area. Pain in her shoulder increases with deep breath or changing position. No nausea or vomiting. with palpation she has shoulder pain but she feels taking a deep breath causes more pain of the shoulder than palpitation. She is not short of breath. No injury Related Data Home Medications ?Medication ?Instructions ?Recorded ?Confirmed atorvastatin 40 mg tablet 40 mg PO DAILY 10/05/22 03/08/24 escitalopram oxalate 10 mg tablet 10 mg PO DAILY 10/05/22 03/08/24 (Lexapro) gabapentin 100 mg capsule 100 mg PO BID 10/05/22 03/08/24 isosorbide mononitrate 30 mg 30 mg PO DAILY 10/05/22 03/08/24 tablet,extended release 24 hr losartan 50 mg tablet 50 mg PO DAILY 10/05/22 03/08/24 metoprolol tartrate 25 mg tablet 12.5 mg PO DAILY 10/05/22 03/08/24 oxybutynin chloride 15 mg 15 mg PO DAILY 10/05/22 03/08/24 tablet,extended release 24 hr clopidogrel 75 mg PO DAILY 04/12/23 03/08/24 budesonide-formoterol HFA 160 2 puff inhalation Q12H 03/08/24 03/08/24 mcg-4.5 mcg/actuation aerosol inhaler (Symbicort) hydrochlorothiazide 25 mg tablet 25 mg PO QAM 03/08/24 03/08/24 omeprazole 40 mg capsule,delayed 40 mg PO .ACB 03/08/24 03/08/24 release Previous Rx's ?Medication ?Instructions ?Recorded cefdinir 300 mg capsule 600 mg (2 x 300 mg) PO DAILY #20 03/09/24 caps prednisone 20 mg tablet 60 mg (3 x 20 mg) PO DAILY 4 days 03/09/24 #12 tabs Allergies Allergy/AdvReac Type Severity Reaction Status Date / Time midazolam (From Versed) Allergy Unknown Vomiting Verified 03/08/24 01:18 Review of Systems 2 ROS0 Status of ROS 10 or more systems reviewed and unremark able except as noted in history and below [facility] Medical History (Updated 03/08/24 @ 06:28 by Marin Chase MD) Numbness and tingling ?R20.0 - Anesthesia of skin (ICD-10) ?R20.2 - Paresthesia of skin (ICD-10) Osteoarthritis ?M19.90 - Unspecified osteoarthritis, unspecified site (ICD-10) Upper back pain ?M54.9 - Dorsalgia, unspecified (ICD-10) Low back pain ?M54.50 - Low back pain, unspecified (ICD-10) Acid reflux ?K21.9 - Gastro-esophageal reflux disease without esophagitis (ICD-10) Obesity ?E66.9 - Obesity, unspecified (ICD-10) Sleep apnea ?G47.30 - Sleep apnea, unspecified (ICD-10) Atrial fibrillation ?I48.91 - Unspecified atrial fibrillation (ICD-10) Surgical History 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 - Acquired absence of unspecified finger(s) (ICD-10) S/P lumbar spine operation ?Z98.890 - Other specified postprocedural states (ICD-10) S/P thoracentesis ?Z98.890 - Other specified postprocedural states (ICD-10) S/P sinus surgery ?Z98.890 - Other specified postprocedural states (ICD-10) H/O hand surgery ?Z98.890 - Other specified postprocedural states (ICD-10) H/O cardiac catheterization ?Z98.890 - Other specified postprocedural states (ICD-10) History of hysterectomy ?Z90.710 - Acquired absence of both cervix and uterus (ICD-10) History of cholecystectomy ?Z90.49 - Acquired absence of other specified parts of digestive tract (ICD- 10) Hx of appendectomy ?Z90.49 - Acquired absence of other specified parts of digestive tract (ICD- 10) Social History Highest level of school completed/degree received: high school graduate Little interest or pleasure in doing things: not at all Feeling down, depressed, or hopeless: not at all Exam Constitutional Vital Signs, click to edit/add: Last Vital Signs Temp 98.2 F 03/09/24 11:50 Pulse 72 03/09/24 13:49 Resp 18 03/09/24 11:50 BP 110/62 03/09/24 11:50 Pulse Ox 90 L 03/09/24 11:50 O2 Del Method Room Air 03/09/24 11:50 O2 Flow Rate 2 03/09/24 07:56 Common normals: no apparent distress, average body habitus, oriented x3, no limitations, healthy appearing, alert and well nourished HENGA Common normals: normocephalic and head/scalp atraumatic Eye Common normals: PERRL, EOMs intact bilaterally and conjunctivae normal Respiratory Common normals: normal respiratory effort, no retractions, no use of accessory muscles and clear to auscultation bilaterally Cardio Common normals: regular rate, regular rhythm, S1 normal heart sound and S2 normal heart sound GI Common normals: Normal to inspection, nondistended, normoactive bowel sounds present and soft to palpation GI image (female): 2 1. mild tenderness Extremity Common normals: normal to inspection and full ROM Other: mild tenderness with palpation left shoulder Neuro Common normals: oriented x3, CN's II-XII intact bilaterally, moves all extremities and no focal motor deficits Psych Appearance: grossly normal Course Course Hospital Course: Patient was initially admitted after evaluation in the emergency room for chest pain. Cardiac markers were negative, EKG was negative, CTA was completed secondary to elevated D-dimer, found to have no pulmonary embolism but does have groundglass appearance. Laboratory results showed acute kidney injury and hypokalemia. She was not improved the following day so she was kept 1 additional day with IV steroids. The IV steroids and Toradol did seem to improve her chest wall pain. This is likely then pleurisy. She did end up requiring it in an extended stay secondary to persistence of her pain and no improvement over the first midnight. Medically necessary treatment did span 2 midnights. Today she is improved, much faster than anticipated based on her pain level the previous day. At this point if she is ambulating well in the hallway she will be discharged to home in improving condition. Medications to this. Follow-up PCP this next week. Vital Signs Vital signs: Vital Signs Temperature 98.5 F 03/08/24 01:13 Pulse Rate 79 03/08/24 01:13 Respiratory Rate 18 03/08/24 01:13 Blood Pressure 126/64 03/08/24 01:13 Pulse Oximetry 94 L 03/08/24 01:13 Oxygen Delivery Method Room Air 03/08/24 01:13 Temperature 98.2 F 03/09/24 11:50 Pulse Rate 72 03/09/24 13:49 Respiratory Rate 18 03/09/24 11:50 Blood Pressure 110/62 03/09/24 11:50 Pulse Oximetry 90 L 03/09/24 11:50 Oxygen Delivery Method Room Air 03/09/24 11:50 Oxygen Delivery Flow Rate 2 03/09/24 07:56 MDM - Chest Pain MDM Narrative Medical decision making narrative: patient presents with complaint of left shoulder and neck pain. she has a history of CAD. EKG NSR with LBBB. Pain increases with deep breath. She also describes pain left abdomen flank area. At home she woke up to go to the bathroom and describes feeling weak. Called her son to bring her to the hospital. Exam with mild tenderness of her left shoulder. left shoulder pain increases more with deep breath than with palpation. serial troponin neg. d-dimer is positive. She also became hypotensive during her time in the department with BP decreasing to 80 systolic. She however is asymptomatic . CT abdomen and pelvis ordered due to complaint of left flank pain. CTA chest ordered due to elevated d-dimer and complaint of pleuritic pain. cxray with borderline cardiomegaly. CT abdomen without findings to explain her symptoms. IV NS ordered due to hypotension and CTA chest pending at change of shift care transferred to oncoming physician at change of shift Lab Data Labs: Lab Results 03/08/24 03/08/24 03/08/24 Range/Units 01:45 04:50 09:00 WBC 9.9 (4.0-11.0) 10^3/uL RBC 3.82 L (4.20-5.40) 10^6/uL Hgb 11.6 L (12.0-16.0) g/dL Hct 34.8 L (36.0-48.0) % MCV 91.1 (81.0-99.0) fL MCH 30.4 (26.7-34.0) pg MCHC 33.3 (29.9-35.2) g/dL RDW 14.0 (11.0-15.0) % Plt Count 195 (150-450) 10^3/uL MPV 11.9 (9.5-13.5) fL Neut % (Auto) 70.1 (43.0-75.0) % Lymph % (Auto) 20.1 L (20.5-60.0) % Perry % (Auto) 8.0 (1.7-12.0) % Eos % (Auto) 1.3 (0.9-7.0) % Baso % (Auto) 0.2 (0.2-2.0) % Neut # (Auto) 6.9 H (1.4-6.5) 10^3/uL Lymph # (Auto) 2.0 (1.2-3.8) 10^3/uL Perry # (Auto) 0.8 (0.3-0.8) 10^3/uL Eos # (Auto) 0.1 (0.0-0.7) 10^3/uL Baso # (Auto) 0.0 (0.0-0.1) 10^3/uL Abs Immat Gran (auto) 0.03 (0.00-0.03) 10^3/uL Imm/Tot Granulo (auto) 0.3 (0.0-0.5) % D-Dimer 1.19 H* (<=0.59) mg/L FEU Sodium 145 (136-145) mmol/L Potassium 3.1 L (3.5-5.1) mmol/L Chloride 106 (98-107) mmol/L Carbon Dioxide 29.0 (21.0-32.0) mmol/L Anion Gap 13.1 BUN 18.0 (7.0-18.0) mg/dL Creatinine 1.25 H (0.55-1.02) mg/dL Est GFR ( Amer) 50 L (>=60 mL/min/1.73m^2) Est GFR (Non-Af Amer) 41 L (>=60 mL/min/1.73m^2) BUN/Creatinine Ratio 14.4 Glucose 111 H (74-106) mg/dL Calcium 9.0 (8.5-10.1) mg/dL Troponin I High Sens 9.0 8.2 (4.0-51.3) pg/mL Specimen Source Blood A.calcoaceticus-baumannii cmplx PCR Not detected (NOT DETECTE) Bacteroides fragilis Not detected (NOT DETECTE) Tawnya albicans (PCR) Not detected (NOT DETECTE) Tawnya auris (PCR) Not detected (NOT DETECTE) C. glabrata (PCR) Not detected (NOT DETECTE) C. krusei (PCR) Not detected (NOT DETECTE) C. parapsilosis (PCR) Not detected (NOT DETECTE) C. tropicalis (PCR) Not detected (NOT DETECTE) C. neoform/gattii (PCR) Not detected (NOT DETECTE) Enterobacterales (PCR) Not detected (NOT DETECTE) E. cloacae complex PCR Not detected (NOT DETECTE) Enterococc faecalis PCR Not detected (NOT DETECTE) Enterococc faecium PCR Not detected (NOT DETECTE) E. coli (PCR) Not detected (NOT DETECTE) H. influenzae (PCR) Not detected (NOT DETECTE) Klebsiella aerogenes (PCR) Not detected (NOT DETECTE) Klebsiella oxytoca PCR Not detected (NOT DETECTE) K. pneumoniae group (PCR) Not detected (NOT DETECTE) List. monocytogenes PCR Not detected (NOT DETECTE) N. meningitidis (PCR) Not detected (NOT DETECTE) Proteus spp. (copies/mL) Not detected (NOT DETECTE) Salmonella spp. (PCR) Not detected (NOT DETECTE) Serratia marcescens PCR Not detected (NOT DETECTE) Staphylococcus sp PCR Not detected (NOT DETECTE) Staph aureus (PCR) Not detected (NOT DETECTE) mecA/C & MREJ Resist Gene Not applicable (NOT DETECTE) mecA/C-Methicil Resis Gene Not applicable (NOT DETECTE) mcr-1 Colistin Res Gene PCR Not applicable (NOT DETECTE) Staph epidermidis (PCR) Not detected (NOT DETECTE) Staph lugdunensis (TEM-PCR) Not detected (NOT DETECTE) S. maltophilia (PCR) Not detected (NOT DETECTE) Streptococcus sp PCR Not detected (NOT DETECTE) Strep agalactiae (PCR) Not detected (NOT DETECTE) Strep pneumoniae (PCR) Not detected (NOT DETECTE) S. pyogenes (PCR) Not detected (NOT DETECTE) P. aeruginosa (PCR) Not detected (NOT DETECTE) Giovanny/B-Vanco Res Genes Not applicable (NOT DETECTE) blaIMP Car res Gene PCR Not applicable (NOT DETECTE) KPC (blaKPC) Detect PCR Not applicable (NOT DETECTE) NDM (blaNDM) Detect PCR Not applicable (NOT DETECTE) OXA-48 Carbapenem Resis Gene (PCR) Not applicable (NOT DETECTE) blaVIM Car Res Gene PCR Not applicable (NOT DETECTE) CTX-M ESBL (PCR) Not applicable (NOT DETECTE) Imaging Data Chest x-ray: Radiologist's impression: ITS Impressions Chest X-Ray 03/08/24 01:29 IMPRESSION: 1. Borderline enlarged cardiac silhouette with mild left basilar atelectasis. Electronically authenticated by: Deyis MOTA Date: 03/08/2024 04:40 Abdomen/Pelvis CT 03/08/24 05:32 IMPRESSION: 1. No obvious explanation for patient's abdominal pain particularly on the left. 2. No nephro or ureterolithiasis. 3. There are few simple appearing cysts in the right as well as left kidney with a hypodense nodule along the lower pole of the left kidney which could be a hemorrhagic cyst or cyst with proteinaceous contents. 4. Previous cholecystectomy, hysterectomy, appendectomy. 5. Diverticulosis without diverticulitis. Electronically authenticated by: NICOLE CAIN Date: 03/08/2024 06:25 Chest CTA 03/08/24 06:36 IMPRESSION: 1. No evidence of major pulmonary thromboembolism. 2. Mild cardiomegaly with mild interstitial prominence and groundglass haze could be from pulmonary congestion. Trace left pleural effusion. 3. Calcified granulomas including a few noncalcified lung nodules. Recommend clinical correlation and follow-up at 6-12 month interval. Electronically authenticated by: EDWIN MUÑIZ Date: 03/08/2024 08:10 Discharge Plan Discharge Chief Complaint: Chest Pain Clinical Impression: Pleuritic chest pain, Acute hypotension Patient Disposition: Admitted as Observation Time of Disposition Decision: 08:43 Condition: Fair Discharge Date/Time: 03/08/24 09:43 Documented by User: Zachary Carcamo MD 03/08/24 09:15 HPI - Chest Pain General Chief Complaint: Chest Pain Stated Complaint: chest pain Time Seen by Provider: 03/08/24 01:23 Related Data Home Medications ?Medication ?Instructions ?Recorded ?Confirmed atorvastatin 40 mg tablet 40 mg PO DAILY 10/05/22 03/08/24 escitalopram oxalate 10 mg tablet 10 mg PO DAILY 10/05/22 03/08/24 (Lexapro) gabapentin 100 mg capsule 100 mg PO BID 10/05/22 03/08/24 isosorbide mononitrate 30 mg 30 mg PO DAILY 10/05/22 03/08/24 tablet,extended release 24 hr losartan 50 mg tablet 50 mg PO DAILY 10/05/22 03/08/24 metoprolol tartrate 25 mg tablet 12.5 mg PO DAILY 10/05/22 03/08/24 oxybutynin chloride 15 mg 15 mg PO DAILY 10/05/22 03/08/24 tablet,extended release 24 hr clopidogrel 75 mg PO DAILY 04/12/23 03/08/24 budesonide-formoterol HFA 160 2 puff inhalation Q12H 03/08/24 03/08/24 mcg-4.5 mcg/actuation aerosol inhaler (Symbicort) hydrochlorothiazide 25 mg tablet 25 mg PO QAM 03/08/24 03/08/24 omeprazole 40 mg capsule,delayed 40 mg PO .ACB 03/08/24 03/08/24 release Previous Rx's ?Medication ?Instructions ?Recorded cefdinir 300 mg capsule 600 mg (2 x 300 mg) PO DAILY #20 03/09/24 caps prednisone 20 mg tablet 60 mg (3 x 20 mg) PO DAILY 4 days 03/09/24 #12 tabs Allergies Allergy/AdvReac Type Severity Reaction Status Date / Time midazolam (From Versed) Allergy Unknown Vomiting Verified 03/08/24 01:18 PFSH PFS Medical History (Updated 03/08/24 @ 06:28 by Marin Chase MD) Numbness and tingling ?R20.0 - Anesthesia of skin (ICD-10) ?R20.2 - Paresthesia of skin (ICD-10) Osteoarthritis ?M19.90 - Unspecified osteoarthritis, unspecified site (ICD-10) Upper back pain ?M54.9 - Dorsalgia, unspecified (ICD-10) Low back pain ?M54.50 - Low back pain, unspecified (ICD-10) Acid reflux ?K21.9 - Gastro-esophageal reflux disease without esophagitis (ICD-10) Obesity ?E66.9 - Obesity, unspecified (ICD-10) Sleep apnea ?G47.30 - Sleep apnea, unspecified (ICD-10) Atrial fibrillation ?I48.91 - Unspecified atrial fibrillation (ICD-10) Surgical History 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 - Acquired absence of unspecified finger(s) (ICD-10) S/P lumbar spine operation ?Z98.890 - Other specified postprocedural states (ICD-10) S/P thoracentesis ?Z98.890 - Other specified postprocedural states (ICD-10) S/P sinus surgery ?Z98.890 - Other specified postprocedural states (ICD-10) H/O hand surgery ?Z98.890 - Other specified postprocedural states (ICD-10) H/O cardiac catheterization ?Z98.890 - Other specified postprocedural states (ICD-10) History of hysterectomy ?Z90.710 - Acquired absence of both cervix and uterus (ICD-10) History of cholecystectomy ?Z90.49 - Acquired absence of other specified parts of digestive tract (ICD- 10) Hx of appendectomy ?Z90.49 - Acquired absence of other specified parts of digestive tract (ICD- 10) Social History Highest level of school completed/degree received: high school graduate Little interest or pleasure in doing things: not at all Feeling down, depressed, or hopeless: not at all Exam Constitutional Vital Signs, click to edit/add: Last Vital Signs Temp 98.2 F 11/10/24 11:50 Pulse 72 03/09/24 13:49 Resp 18 03/09/24 11:50 BP 110/62 03/09/24 11:50 Pulse Ox 90 L 03/09/24 11:50 O2 Del Method Room Air 03/09/24 11:50 O2 Flow Rate 2 03/09/24 07:56 GI GI image (female): 2 1. mild tenderness Course Course Hospital Course: Patient was initially admitted after evaluation in the emergency room for chest pain. Cardiac markers were negative, EKG was negative, CTA was completed secondary to elevated D-dimer, found to have no pulmonary embolism but does have groundglass appearance. Laboratory results showed acute kidney injury and hypokalemia. She was not improved the following day so she was kept 1 additional day with IV steroids. The IV steroids and Toradol did seem to improve her chest wall pain. This is likely then pleurisy. She did end up requiring it in an extended stay secondary to persistence of her pain and no improvement over the first midnight. Medically necessary treatment did span 2 midnights. Today she is improved, much faster than anticipated based on her pain level the previous day. At this point if she is ambulating well in the hallway she will be discharged to home in improving condition. Medications to this. Follow-up PCP this next week. Vital Signs Vital signs: Vital Signs Temperature 98.5 F 03/08/24 01:13 Pulse Rate 79 03/08/24 01:13 Respiratory Rate 18 03/08/24 01:13 Blood Pressure 126/64 03/08/24 01:13 Pulse Oximetry 94 L 03/08/24 01:13 Oxygen Delivery Method Room Air 03/08/24 01:13 Temperature 98.2 F 03/09/24 11:50 Pulse Rate 72 03/09/24 13:49 Respiratory Rate 18 03/09/24 11:50 Blood Pressure 110/62 03/09/24 11:50 Pulse Oximetry 90 L 03/09/24 11:50 Oxygen Delivery Method Room Air 03/09/24 11:50 Oxygen Delivery Flow Rate 2 03/09/24 07:56 MDM - Chest Pain MDM Narrative Medical decision making narrative: patient presents with complaint of left shoulder and neck pain. she has a history of CAD. EKG NSR with LBBB. Pain increases with deep breath. She also describes pain left abdomen flank area. At home she woke up to go to the bathroom and describes feeling weak. Called her son to bring her to the hospital. Exam with mild tenderness of her left shoulder. left shoulder pain increases more with deep breath than with palpation. serial troponin neg. d-dimer is positive. She also became hypotensive during her time in the department with BP decreasing to 80 systolic. She however is asymptomatic . CT abdomen and pelvis ordered due to complaint of left flank pain. CTA chest ordered due to elevated d-dimer and complaint of pleuritic pain. cxray with borderline cardiomegaly. CT abdomen without findings to explain her symptoms. IV NS ordered due to hypotension and CTA chest pending at change of shift care transferred to oncoming physician at change of shift JK 8:45am CAT scan of chest shows no evidence of pulmonary embolism. CT of the abdomen is negative as well. She was hypotensive upon arrival and is now running a systolic blood pressure in the 90s. She is on several blood pressure medications at home, including hydrochlorothiazide, metoprolol, and losartan. She is also on isosorbide. Blood cultures are obtained and are pending. She is being admitted for observation. 2 sets of troponin are negative. Differential Diagnosis Differential diagnosis: Likely fracture of rib, pneumothorax, unstable angina pectoris, atypical chest pain, st elevation myocardial infarction, chest pain and other Lab Data Attestation: I reviewed the patient's lab results. Labs: Lab Results 03/08/24 03/08/24 03/08/24 Range/Units 01:45 04:50 09:00 WBC 9.9 (4.0-11.0) 10^3/uL RBC 3.82 L (4.20-5.40) 10^6/uL Hgb 11.6 L (12.0-16.0) g/dL Hct 34.8 L (36.0-48.0) % MCV 91.1 (81.0-99.0) fL MCH 30.4 (26.7-34.0) pg MCHC 33.3 (29.9-35.2) g/dL RDW 14.0 (11.0-15.0) % Plt Count 195 (150-450) 10^3/uL MPV 11.9 (9.5-13.5) fL Neut % (Auto) 70.1 (43.0-75.0) % Lymph % (Auto) 20.1 L (20.5-60.0) % Perry % (Auto) 8.0 (1.7-12.0) % Eos % (Auto) 1.3 (0.9-7.0) % Baso % (Auto) 0.2 (0.2-2.0) % Neut # (Auto) 6.9 H (1.4-6.5) 10^3/uL Lymph # (Auto) 2.0 (1.2-3.8) 10^3/uL Perry # (Auto) 0.8 (0.3-0.8) 10^3/uL Eos # (Auto) 0.1 (0.0-0.7) 10^3/uL Baso # (Auto) 0.0 (0.0-0.1) 10^3/uL Abs Immat Gran (auto) 0.03 (0.00-0.03) 10^3/uL Imm/Tot Granulo (auto) 0.3 (0.0-0.5) % D-Dimer 1.19 H* (<=0.59) mg/L FEU Sodium 145 (136-145) mmol/L Potassium 3.1 L (3.5-5.1) mmol/L Chloride 106 (98-107) mmol/L Carbon Dioxide 29.0 (21.0-32.0) mmol/L Anion Gap 13.1 BUN 18.0 (7.0-18.0) mg/dL Creatinine 1.25 H (0.55-1.02) mg/dL Est GFR ( Amer) 50 L (>=60 mL/min/1.73m^2) Est GFR (Non-Af Amer) 41 L (>=60 mL/min/1.73m^2) BUN/Creatinine Ratio 14.4 Glucose 111 H (74-106) mg/dL Calcium 9.0 (8.5-10.1) mg/dL Troponin I High Sens 9.0 8.2 (4.0-51.3) pg/mL Specimen Source Blood A.calcoaceticus-baumannii cmplx PCR Not detected (NOT DETECTE) Bacteroides fragilis Not detected (NOT DETECTE) Tawnya albicans (PCR) Not detected (NOT DETECTE) Tawnya auris (PCR) Not detected (NOT DETECTE) C. glabrata (PCR) Not detected (NOT DETECTE) C. krusei (PCR) Not detected (NOT DETECTE) C. parapsilosis (PCR) Not detected (NOT DETECTE) C. tropicalis (PCR) Not detected (NOT DETECTE) C. neoform/gattii (PCR) Not detected (NOT DETECTE) Enterobacterales (PCR) Not detected (NOT DETECTE) E. cloacae complex PCR Not detected (NOT DETECTE) Enterococc faecalis PCR Not detected (NOT DETECTE) Enterococc faecium PCR Not detected (NOT DETECTE) E. coli (PCR) Not detected (NOT DETECTE) H. influenzae (PCR) Not detected (NOT DETECTE) Klebsiella aerogenes (PCR) Not detected (NOT DETECTE) Klebsiella oxytoca PCR Not detected (NOT DETECTE) K. pneumoniae group (PCR) Not detected (NOT DETECTE) List. monocytogenes PCR Not detected (NOT DETECTE) N. meningitidis (PCR) Not detected (NOT DETECTE) Proteus spp. (copies/mL) Not detected (NOT DETECTE) Salmonella spp. (PCR) Not detected (NOT DETECTE) Serratia marcescens PCR Not detected (NOT DETECTE) Staphylococcus sp PCR Not detected (NOT DETECTE) Staph aureus (PCR) Not detected (NOT DETECTE) mecA/C & MREJ Resist Gene Not applicable (NOT DETECTE) mecA/C-Methicil Resis Gene Not applicable (NOT DETECTE) mcr-1 Colistin Res Gene PCR Not applicable (NOT DETECTE) Staph epidermidis (PCR) Not detected (NOT DETECTE) Staph lugdunensis (TEM-PCR) Not detected (NOT DETECTE) S. maltophilia (PCR) Not detected (NOT DETECTE) Streptococcus sp PCR Not detected (NOT DETECTE) Strep agalactiae (PCR) Not detected (NOT DETECTE) Strep pneumoniae (PCR) Not detected (NOT DETECTE) S. pyogenes (PCR) Not detected (NOT DETECTE) P. aeruginosa (PCR) Not detected (NOT DETECTE) Giovanny/B-Vanco Res Genes Not applicable (NOT DETECTE) blaIMP Car res Gene PCR Not applicable (NOT DETECTE) KPC (blaKPC) Detect PCR Not applicable (NOT DETECTE) NDM (blaNDM) Detect PCR Not applicable (NOT DETECTE) OXA-48 Carbapenem Resis Gene (PCR) Not applicable (NOT DETECTE) blaVIM Car Res Gene PCR Not applicable (NOT DETECTE) CTX-M ESBL (PCR) Not applicable (NOT DETECTE) Imaging Data Chest x-ray: Radiologist's impression: ITS Impressions Chest X-Ray 03/08/24 01:29 IMPRESSION: 1. Borderline enlarged cardiac silhouette with mild left basilar atelectasis. Electronically authenticated by: Deysi MOTA Date: 03/08/2024 04:40 Abdomen/Pelvis CT 03/08/24 05:32 IMPRESSION: 1. No obvious explanation for patient's abdominal pain particularly on the left. 2. No nephro or ureterolithiasis. 3. There are few simple appearing cysts in the right as well as left kidney with a hypodense nodule along the lower pole of the left kidney which could be a hemorrhagic cyst or cyst with proteinaceous contents. 4. Previous cholecystectomy, hysterectomy, appendectomy. 5. Diverticulosis without diverticulitis. Electronically authenticated by: NICOLE CAIN Date: 03/08/2024 06:25 Chest CTA 03/08/24 06:36 IMPRESSION: 1. No evidence of major pulmonary thromboembolism. 2. Mild cardiomegaly with mild interstitial prominence and groundglass haze could be from pulmonary congestion. Trace left pleural effusion. 3. Calcified granulomas including a few noncalcified lung nodules. Recommend clinical correlation and follow-up at 6-12 month interval. Electronically authenticated by: EDWIN MUÑIZ Date: 03/08/2024 08:10 ECG Data Attestation: I personally reviewed and interpreted this ECG as follows: (EKG on my interpretation shows sinus rhythm with a left bundle branch block and a rate of 67.) Discharge Plan Discharge Chief Complaint: Chest Pain Clinical Impression: Pleuritic chest pain, Acute hypotension Patient Disposition: Admitted as Observation Time of Disposition Decision: 08:43 Condition: Fair Discharge Date/Time: 03/08/24 09:43
--- NOTE | 2024-03-08 01:29 | XR_ITS ---
The [address] [address] Patient Name: GIOVANNA ABUM MRN: [id number] date: 1940 Sex: F Assigned Patient Location: ER Current Patient Location: ER Accession/Order Number: [id number] Exam Date: 03/08/2024 01:45 Report Date: 03/08/2024 04:40 At the request of: JOSE BRANNON Procedure: XR chest 1V EXAM: XR chest 1V HISTORY: chest pain COMPARISON: None. TECHNIQUE: One view of the chest was obtained. FINDINGS: The cardiac silhouette is borderline enlarged. There is mild left basilar atelectasis. There is no significant pneumothorax or pleural effusion. No acute osseous abnormality is seen. There are calcified mediastinal and hilar lymph nodes. XR/XR chest 1V IMPRESSION: 1. Borderline enlarged cardiac silhouette with mild left basilar atelectasis. Electronically authenticated by: Deysi MOTA Date: 03/08/2024 04:40
[2024-03-08 02:00] LABS: Basophils Percent Auto 0.2 % (0.2-2.0); Eosinophils Absolute Auto 0.1 10^3/uL (0.0-0.7); Eosinophils Percent Auto 1.3 % (0.9-7.0); Hematocrit 34.8 % (36.0-48.0); Hemoglobin 11.6 g/dL (12.0-16.0); Immature Granulocytes Abs Auto 0.03 10^3/uL (0.00-0.03); Immature Granulocytes Pct Auto 0.3 % (0.0-0.5); Lymphocytes Percent Auto 20.1 % (20.5-60.0); Mean Corpuscular HGB Conc 33.3 g/dL (29.9-35.2); Mean Corpuscular Hemoglobin 30.4 pg (26.7-34.0); Mean Corpuscular Volume 91.1 fL (81.0-99.0); Mean Platelet Volume 11.9 fL (9.5-13.5); Monocytes Absolute Auto 0.8 10^3/uL (0.3-0.8); Neutrophils Absolute Auto 6.9 10^3/uL (1.4-6.5); Neutrophils Percent Auto 70.1 % (43.0-75.0); Platelet Count 195 10^3/uL (150-450); Red Blood Count 3.82 10^6/uL (4.20-5.40); White Blood Count 9.9 10^3/uL (4.0-11.0)
[2024-03-08] MEDS: MORPHINE SULFATE 4 MG/ML VIAL IV (02:45)
[2024-03-08] MEDS: ONDANSETRON PF 4 MG/2 ML VIAL IV (03:00)
--- NOTE | 2024-03-08 05:32 | CT_ITS ---
The [address] [address] Patient Name: GIOVANNA BAUM MRN: [id number] date: 1940 Sex: F Assigned Patient Location: ER Current Patient Location: Accession/Order Number: [id number] Exam Date: 03/08/2024 05:25 Report Date: 03/08/2024 06:25 At the request of: JOSE BRANNON Procedure: CT abdomen pelvis wo con CLINICAL HISTORY: Left-sided abdominal pain. Nausea. EXAMINATION: Unenhanced CT scan of the abdomen and pelvis: 03/08/2024. COMPARISON: None. TECHNIQUE: 3 mm axial images from lung bases through ischial tuberosities without intravenous or oral contrast were obtained. Sagittal, coronal reconstructions were performed. FINDINGS: The visualized lung bases demonstrate no focal abnormalities. The heart size seems normal. There is a small sliding-type hiatus hernia. There are some calcified granulomas at the left lung base. CT ABDOMEN: For a noncontrast study the liver, spleen, pancreas, adrenal glands appear normal. The patient is status post cholecystectomy. There is no hydronephrosis or nephrolithiasis involving the left or the right kidney. There is a hypodense nodule along the lower pole posterior aspect of the left kidney which is exophytic, which measures 8 mm in size with average Hounsfield units of approximately 85. At the same level there are 2 small low-density lesions anteriorly both exophytic, one less than a centimeter in size and the other lesion being 1.2 cm with average Hounsfield units of 2. The abdominal aorta is mildly atherosclerotic. There is no retroperitoneal or mesenteric adenopathy. The bowel loops are of normal caliber. Appendix is not seen. There are few scattered diverticula in the colon. CT PELVIS: The bladder is normal. There is no ureterolithiasis. There is no pelvic adenopathy. No discrete pockets of fluid collections are seen. The uterus, ovaries are not identified. The visualized osseous structures demonstrate degenerative changes of the thoracolumbar spine. CT/CT abdomen pelvis wo con IMPRESSION: 1. No obvious explanation for patient's abdominal pain particularly on the left. 2. No nephro or ureterolithiasis. 3. There are few simple appearing cysts in the right as well as left kidney with a hypodense nodule along the lower pole of the left kidney which could be a hemorrhagic cyst or cyst with proteinaceous contents. 4. Previous cholecystectomy, hysterectomy, appendectomy. 5. Diverticulosis without diverticulitis. Electronically authenticated by: NICOLE CAIN Date: 03/08/2024 06:25
[2024-03-08 06:04] LABS: Anion Gap 13.1; BUN Creatinine Ratio 14.4; Chloride 106 mmol/L (98-107); Estimated GFR (African America 50 (>=60 mL/min/1.73m^2); Estimated GFR (Non-African Ame 41 (>=60 mL/min/1.73m^2); Glucose 111 mg/dL (74-106); Potassium 3.1 mmol/L (3.5-5.1); Sodium 145 mmol/L (136-145)
[2024-03-08 06:07] LABS: Troponin I High Sensitivity 8.2 pg/mL (4.0-51.3)
[2024-03-08 06:12] LABS: D Dimer 1.19 mg/L FEU (<=0.59)
--- NOTE | 2024-03-08 06:36 | CT_ITS ---
The [address] [address] Patient Name: GIOVANNA BAUM MRN: [id number] date: 1940 Sex: F Assigned Patient Location: ED.MAIN Current Patient Location: ER Accession/Order Number: [id number] Exam Date: 03/08/2024 07:15 Report Date: 03/08/2024 08:10 At the request of: JOSE BRANNON Procedure: CT angio chest EXAM: CT angio chest , 03/08/2024 HISTORY: chest pain left-sided and left abdomen. Nausea. COMPARISON: Chest x-ray from 03/18/[address] scan from 2022. TECHNIQUE: CT scan of the chest was performed following IV contrast injection using 100 mL of Omnipaque 350 iodine contrast with angiogram protocol. Coronal and sagittal reconstructions were performed. FINDINGS: The main pulmonary artery, right and left pulmonary arteries, bilateral lobar and segmental pulmonary arteries are patent and show no filling defect to suggest pulmonary thromboembolism. Some of the imaging is limited due to motion/breathing artifacts. The lung windows demonstrate prominent interstitial markings and bilateral groundglass haziness could be from mild pulmonary congestion or nonspecific inflammation. Bilateral mild dependent atelectasis and low lung volumes. Bilateral lung nodules, some of which are calcified along with calcified hilar and mediastinal lymph nodes are likely due to old granulomas. Noncalcified nodular densities in the right upper lobe, likely due to chronically impacted bronchi. CT scan at 12 month interval could be considered to demonstrate stability. The central tracheobronchial airways are patent. The mediastinal windows demonstrate patent thoracic aorta and great vessels. Motion artifacts at the aortic root. No obvious thoracic aneurysm. Mild atherosclerotic calcification of the thoracic aorta. Mild cardiomegaly. No thyroid enlargement or focal lesion. The esophagus is nondilated. Small hiatal hernia. Trace left pleural effusion. No right pleural effusion or pericardial effusion. The bone windows demonstrate mild degenerative changes thoracic spine. No focal aggressive bone lesion. CT/CT angio chest IMPRESSION: 1. No evidence of major pulmonary thromboembolism. 2. Mild cardiomegaly with mild interstitial prominence and groundglass haze could be from pulmonary congestion. Trace left pleural effusion. 3. Calcified granulomas including a few noncalcified lung nodules. Recommend clinical correlation and follow-up at 6-12 month interval. Electronically authenticated by: EDWIN MUÑIZ Date: 03/08/2024 08:10
[2024-03-08] MEDS: 0.9 % SODIUM CHLORIDE 1,000 ML 999 ML IV (06:49)
--- OUTSIDE RECORDS SUMMARY | 2024-03-08 10:04 | XMS_ITS | CCD ---
Author Organization [facility] Care Team Providers Care Student Records Coordinator Name Role Phone Zahler, Quinn Unavailable Unavailable Zahler, Quinn Unavailable Unavailable Zahler, Quinn Unavailable Unavailable OVI CROOKS~[phone] UNKNOWN Unavailable Unavailable Zahler, Quinn Unavailable Unavailable Zahler, Quinn Unavailable Unavailable Erliner, Quinn Unavailable Unavailable OVI CROOKS~[phone] UNKNOWN Unavailable Unavailable MD Brina Morrissey Attending Provider Brina Morrissey Unavailable Ovi Crooks Unavailable DR OVI CROOKS Primary Care Unavailable CRISTOBAL . MARY Admitting Unavailable CRISTOBAL .MARY Attending Unavailable JESSICA [...] Primary Care Unavailable JESSICA ., DR ELIZABETH Ceran Attending Unavailable JESSICA ., DR ELIZABETH Cerna [...] WILLIAM Alas Consulting Unavailable JESSICA ., DR ELIAZBETH Cerna Attending Unavailable BALL, DR DIOR Primary Care Unavailable JESSICA ., DR ELIZABETH Cerna Consulting Unavailable JESISCA ., DR ELIZABETH Cerna Admitting Unavailable CRISTOBAL [...] (1 source) Midazolam Drug Allergy 7 [facility] Repository (2 sources) Midazolam; Translations: [MIDAZOLAM] Drug Allergy 3 Nausea And Vomiting [facility] Repository Medications Current Medications Medication Drug Class(es) [...] Start: 07-17-2022 [facility] Omeprazole 40 MG 1 [...] Coronary arteriosclerosis; Translations: [Atherosclerotic heart disease of [place] coronary artery without angina pectoris] Onset: 06-07-2022 [...] current use of drug therapy; Translations: [Other longterm (current) drug therapy] Episodic Other and ill-defined [...] 04-28-2022 Episodic Other aftercare (1 source) 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; Translations: [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 DRUG THERAPY] Onset: 09-20-2021 Episodic Other aftercare (1 source) Long-term current use of inhaled steroid; Translations: [termite inspector (current) use of 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] Onset: 07-26-2022 [...] Basophils (Bld) [#/Vol] 0.0 10 3/uL 0.0-0.1 [facility] Basophils/100 WBC Auto (Bld) on 11-07-2023 Basophils/100 WBC (Bld) 0.4 % 0.2-2.0 [facility] Eosinophils/100 WBC Auto (Bl d)on 11-07-2023 Eosinophils/100 WBC (Bld) 2.6 % 0.9-7.0 [facility] Erythrocyte distribution wid th Auto (RBC) [Ratio]on 11-07-2023 Erythrocyte distribution width (RBC) [Ratio] 13.3 % 11.0-15.0 [facility] Estimated glomerular filtrat ion rate (GFR) non- Americanon 11-07-2023 GFR/1.73 sq M.predicted among non-blacks MDRD (S/P/Bld) [Vol rate/Area] 45 mL/min/{1.73_m2} Low >=60 [facility] Hematocrit Auto (Bld) [Volum e fraction]on 11-07-2023 Hematocrit (Bld) [Volume fraction] 35.4 % Low 36.0-48.0 [facility] Hemoglobin [Mass/volume] in Bloodon 11-07-2023 Hemoglobin (Bld) [Mass/Vol] 11.8 g/dL Low 12.0-16.0 [facility] Iron binding capacity [Mass/ volume] in Serum or Plasmaon 11-07-2023 Iron binding capacity [Mass/Vol] 258.0 ug/dL 250.0-450.0 [facility] Iron saturation [Mass Fracti on] in Serum or Plasmaon 11-07-2023 Iron saturation [Mass fraction] 31.8 % [facility] Laboratory - Chemistry and C hemistry - challengeon 11-07-2023 Calcium [Mass/Vol] 10.0 mg/dL 8.5-10.1 [facility] Chloride [Moles/Vol] 102 mmol/L 98-107 [facility] CO2 [Moles/Vol] 30.7 mmol/L 21.0-32.0 [facility] Cobalamin (Vitamin B12) [Mass/Vol] 344.0 pg/mL 193.0-986.0 [facility] Creatinine [Mass/Vol] 1.17 mg/dL High 0.55-1.02 [facility] Ferritin [Mass/Vol] 154.0 ng/mL 8.0-252.0 [facility] GFR/1.73 sq M.predicted MDRD (S/P/Bld) [Vol rate/Area] 54 mL/min/{1.73_m2} Low >=60 [facility] Glucose [Mass/Vol] 107 mg/dL High 74-106 [facility] Iron [Mass/Vol] 82.0 ug/dL 50.0-170.0 [facility] Potassium [Moles/Vol] 3.5 mmol/L 3.5-5.1 [facility] Sodium [Moles/Vol] 141 mmol/L 136-145 [facility] Urea nitrogen [Mass/Vol] 15.0 mg/dL 7.0-18.0 [facility] Urea nitrogen/Creatinine [Mass ratio] 12.8 mg/mg [facility] Laboratory - Hematology and Cell countson 11-07-2023 Immature granulocytes/100 WBC (Bld) 0.2 % 0.0-0.5 [facility] Leukocytes [#/volume] correc jonnie for nucleated erythrocytes in Blood by Automated counon 11-07-2023 WBC corrected for nucl RBC Auto (Bld) [#/Vol] 5.3 10 3/uL 4.0-11.0 [facility] Lymphocytes Auto (Bld) [#/Vo l]on 11-07-2023 Lymphocytes (Bld) [#/Vol] 1.9 10 3/uL 1.2-3.8 [facility] Lymphocytes/100 WBC Auto (Bl d)on 11-07-2023 Lymphocytes/100 WBC (Bld) 35.4 % 20.5-60.0 [facility] MCH Auto (RBC) [Entitic mass ]on 11-07-2023 MCH (RBC) [Entitic mass] 30.6 pg 26.7-34.0 [facility] MCHC Auto (RBC) [Mass/Vol]on 11-07-2023 MCHC (RBC) [Mass/Vol] 33.3 g/dL 29.9-35.2 [facility] MCV Auto (RBC) [Entitic vol] on 11-07-2023 MCV (RBC) [Entitic vol] 91.7 fL 81.0-99.0 [facility] Monocytes Auto (Bld) [#/Vol] on 11-07-2023 Monocytes (Bld) [#/Vol] 0.6 10 3/uL 0.3-0.8 [facility] Monocytes/100 WBC Auto (Bld) on 11-07-2023 Monocytes/100 WBC (Bld) 12.1 % High 1.7-12.0 [facility] Neutrophils Auto (Bld) [#/Vo l]on 11-07-2023 Neutrophils (Bld) [#/Vol] 2.6 10 3/uL 1.4-6.5 [facility] Neutrophils/100 WBC Auto (Bl d)on 11-07-2023 Neutrophils/100 WBC (Bld) 49.3 % 43.0-75.0 [facility] No Panel Informationon 11-06 Eosinophils # (Auto) 0.1 10 3/uL 0.0-0.7 [facility] Folate 17.80 ng/mL 8.60-58.90 [facility] Immature Granulocyte # (Auto) 0.01 10 3/uL 0.00-0.03 [facility] Platelet mean volume Auto (B ld) [Entitic vol]on 11-07-2023 Platelet mean volume (Bld) [Entitic vol] 12.2 fL 9.5-13.5 [facility] Platelets Auto (Bld) [#/Vol] on 11-07-2023 Platelets (Bld) [#/Vol] 190 10 3/uL 150-450 [facility] RBC Auto (Bld) [#/Vol]on RBC (Bld) [#/Vol] 3.86 10 6/uL Low 4.20-5.40 [facility] Serum or plasma anion gap de terminationon 11-07-2023 Anion gap [Moles/Vol] 11.8 mmol/L [facility] Office Visiton 01-05-2023 Follow-up visit [id number] Giovanna Richardson 1940 F Date Provider Department Center 01/05/2023 [id number]-LAYNONIBERNYSimran [facility] Family History Problem Relation Age of Onset No Known Problems Mother No Known Problems Father Family Status - Relation Status Age at Mother Father Level of Service:71384 MS OFFICE/OUTPATIENT ESTABLISHED LOW MDM 20-29 MIN Normal [facility] FUNGAL AB QUANTITAIVE DOUBLE IMMUNODIFFUon 07-30-2022 Aspergillus flavus Negative Normal Neg:<1:1 [facility] Comment on above: Performed By: #### F UNGUYI #### [facility] [address] [address] [address] Milena Rosa Aspergillus fumigatus Negative Normal Neg:<1:1 [facility] Comment on above: Performed By: #### F UNGUYI #### [facility] [address] [place] [address] Dr. Milena Rosa Aspergillus niger Negative Normal Neg:<1:1 [facility] Comment on above: Performed By: #### F UNGUYI #### [facility] [address] [address] [address] Milena Rosa Blastomyces Negative Normal Neg:<1:1 [facility] Comment on above: Performed By: #### F UNGUYI #### [facility] [address] [address] [address] Milena Rosa HISTOPLASMA GALACTOMANNAN AG URINEon 07-30-2022 Histoplasma Gal'rosales Ag <0.5 Normal <0.5 ng/mL [facility] Comment on above: Performed By: #### H ISTGAL ####[facility] [address] [address]Dr. Milena Rosa COCCIDIODES IGG/IGM AB BY IF Aon 07-29-2022 Coccidiodes Ab, IgG EIA 0.1 EIA Units Normal [facility] Comment on above: Result Comment: Nega tive <1.0 Indeterminate 1.0-1.4 Positive >1.4 Performed By: #### C OCCABS #### [facility] [address] [address] [address] Milena Rosa Coccidiodes Ab, IgM, EIA 0.0 EIA Units Normal [facility] Comment on above: Result Comment: Nega tive <1.0 Indeterminate 1.0-1.4 Positive >1.4 Performed By: #### C OCCABS #### [facility] [address], [place] [address] Dr. Milena Rosa HISTOPLASMA CAP AB QUANT DID on 07-29-2022 Histoplasma Mycelial CF Ab. Negative Normal Neg:<1:2 [facility] Comment on above: Performed By: #### H ISTDID ####[facility] [address] [place], [place] [address]JyDr. Milena Rosa Histoplasma Yeast CF Ab Negative Normal Neg:<1:2 [facility] Comment on above: Performed By: #### H ISTDID ####[facility] [address] [id number]. Milena Rosa Office Visiton 07-26-2022 Follow-up visit [id number] Giovanna Richardson 1940 F Date Provider Department Center 07/26/2022 3848-JEMAL MEDEIROS [facility] Family History Problem Relation Age of Onset No Known Problems Mother No Known Problems Father Family Status - Relation Status Age at Mother Father Level of Service:54442 MS OFFICE/OUTPATIENT ESTABLISHED MOD MDM 30-39 MIN Reason for Visit and Comments: Follow-up [263888] - 6 weeks- Go over Holter monitor results- Discuss medications Normal [facility] CT CHEST WO CONon 07-19-2022 CT CHEST [...] WILLIAM BERMEO Date: 2022-07-19 14:55 Normal [facility] Office Visiton 06-07-2022 Follow-up visit [id number] Giovanna Richardson 1940 F Date Provider Department Center 06/07/2022 3848-JEMAL MEDEIROS [facility] Family History Problem Relation Age of Onset No Known Problems Mother No Known Problems Father Family Status - Relation Status Age at Mother Father Level of Service:50268 MS OFFICE/OUTPATIENT ESTABLISHED MOD MDM 30-39 MIN Reason for Visit and Comments: Post-Cath [731] Normal [facility] CBC AUTO DIFFon 05-15-2022 BASO # 0.0 103/ul Normal 0.0-0.1 [facility] Comment on above: Performed By: #### C BC #### [facility] [address] [place], [place] [address] Dr. Milena Rosa Basophils/100 WBC (Bld) 0.3 % Normal 0.2-2.0 [facility] Comment on above: Performed By: #### C BC #### [facility] [address] [place], [place] [address] Dr. Milena Rosa EO # 0.2 103/ul Normal 0.0-0.7 [facility] Comment on above: Performed By: #### C BC #### [facility] [address] [place] [address] Dr. Milena Rosa Eosinophils/100 WBC (Bld) 2.8 % Normal 0.9-7.0 [facility] Comment on above: Performed By: #### C BC #### [facility] [address] [place] [address] Dr. Milena Rosa Erythrocyte distribution width (RBC) [Ratio] 13.3 % Normal 11.0-15.0 [facility] Comment on above: Performed By: #### C BC #### [facility] [address] [place] [address] Dr. Milena Rosa Hematocrit (Bld) [Volume fraction] 38.5 % Normal 36.0-48.0 [facility] Comment on above: Performed By: #### C BC #### [facility] [address] [place] [address] Dr. Milena Rosa Hemoglobin (Bld) [Mass/Vol] 12.6 g/dL Normal 12.0-16.0 [facility] Comment on above: Performed By: #### C BC #### [facility] [address] [place] [address] Dr. Milena Rosa IG # 0.02 10e3/ul Normal 0.00-0.03 [facility] Comment on above: Performed By: #### C BC #### [facility] [address] [place] [address] Dr. Milena Rosa IG % 0.3 % Normal 0.0-0.5 [facility] Comment on above: Performed By: #### C BC #### [facility] [address] [place] [address] Dr. Milena Rosa LYMPH # 2.5 103/ul Normal 1.2-3.8 [facility] Comment on above: Performed By: #### C BC #### [facility] [address] [place] [address] Dr. Milena Rosa Lymphocytes/100 WBC (Bld) 37.6 % Normal 20.5-60.0 [facility] Comment on above: Performed By: #### C BC #### [facility] [address] [place] [address] Dr. Milena Rosa MANUAL DIFF REQ NO Normal [facility] Comment on above: Performed By: #### C BC #### [facility] [address] [place] [address] Dr. Milena Rosa MCH (RBC) [Entitic mass] 29.8 pg Normal 26.7-34.0 [facility] Comment on above: Performed By: #### C BC #### [facility] [address] [place] [address] Dr. Milena Rosa MCHC (RBC) [Mass/Vol] 32.7 g/dL Normal 29.9-35.2 [facility] Comment on above: Performed By: #### C BC #### [facility] [address] [place] [address] Dr. Milena Rosa MCV (RBC) [Entitic vol] 91.0 fL Normal 81.0-99.0 [facility] Comment on above: Performed By: #### C BC #### [facility] [address] [place] [address] Dr. Milena Rosa MONO # 0.7 103/ul Normal 0.3-0.8 [facility] Comment on above: Performed By: #### C BC #### [facility] [address] [place] [address] Dr. Milena Rosa Monocytes/100 WBC (Bld) 10.0 % Normal 1.7-12.0 [facility] Comment on above: Performed By: #### C BC #### [facility] [address] [place] [address] Dr. Milena Rosa NEUT # 3.3 103/ul Normal 1.4-6.5 [facility] Comment on above: Performed By: #### C BC #### [facility] [address] [place] [address] Dr. Milena Rosa Neutrophils/100 WBC (Bld) 49.0 % Normal 43.0-75.0 [facility] Comment on above: Performed By: #### C BC #### [facility] [address] [place] [address] Dr. Milena Rosa Platelet mean volume (Bld) [Entitic vol] 11.5 fL Normal 9.5-13.5 [facility] Comment on above: Performed By: #### C BC #### [facility] [address] [place] [address] Dr. Milena Rosa PLT 201 103/ul Normal 150-450 [facility] Comment on above: Performed By: #### C BC #### [facility] [address] [place] [address] Dr. Milena Rosa RBC 4.23 106/ul Normal 4.20-5.40 [facility] Comment on above: Performed By: #### C BC #### [facility] [address] [place] [address] Dr. Milena Rosa WBC 6.7 103/ul Normal 4.0-11.0 [facility] Comment on above: Performed By: #### C BC #### [facility] [address] [place] [address] Dr. Milena Rosa [facility] 04-30 SARS-CoV-2 (COVID-19) RNA RADHA+probe Ql (Unsp spec) Not detected Normal NOT DETECTED [facility] Comment on above: Result Comment: This test is not yet approved or cleared by the [place] FDA. When there are no FDA-approved or cleared tests available, and other criteria are met, FDA can make tests available under an emergency access mechanism called an Emergency Use Authorization (EUA). The EUA for this test is supported by the Sales Trainee of Health and Human Service's (HHS's) declaration [...] with SARS-CoV-2. Performed By: #### C VDTBH ####[facility] [address] [place], [place] [address]QsDr. Milena Rosa PROF CHEM 8 (BAS METB)on Anion gap [Moles/Vol] 13.1 mmol/L Normal [facility] Comment on above: Performed By: #### B MP #### [facility] [address] [address] [address] Milena Rosa Calcium [Mass/Vol] 9.8 mg/dL Normal 8.5-10.1 [facility] Comment on above: Performed By: #### B MP #### [facility] [address] [address] [address] Milena Rosa Chloride [Moles/Vol] 103 mmol/L Normal 98-107 [facility] Comment on above: Performed By: #### B MP #### [facility] [address] [address] [address] Milena Rosa CO2 [Moles/Vol] 26.7 mmol/L Normal 21.0-32.0 [facility] Comment on above: Performed By: #### B MP #### [facility] [address] [address] [address] Milena Rosa Creatinine [Mass/Vol] 0.95 mg/dL Normal 0.55-1.02 [facility] Comment on above: Performed By: #### B MP #### [facility] [address] [address] [address] Milena Rosa EGFR-AF MICRONESIAN >60 Normal >=60 [facility] Comment on above: Performed By: #### B MP #### [facility] [address] [address] [address] Milena Rosa EGFR-NON AF MICRONESIAN 57 mL/min/1.73m2 Critically low >=60 [facility] Comment on above: Performed By: #### B MP #### [facility] [address] [address] [address] Milena Rosa Glucose [Mass/Vol] 93 mg/dL Normal 74-106 [facility] Comment on above: Performed By: #### B MP #### [facility] [address] [address] [address] Milena Rosa Potassium [Moles/Vol] 3.8 mmol/L Normal 3.5-5.1 [facility] Comment on above: Performed By: #### B MP #### [facility] [address] [address] [address] Milena Rosa Sodium [Moles/Vol] 139 mmol/L Normal 136-145 [facility] Comment on above: Performed By: #### B MP #### [facility] [address] [address] [address] Milena Rosa Urea nitrogen [Mass/Vol] 18.0 mg/dL Normal 7.0-18.0 [facility] Comment on above: Performed By: #### B MP #### [facility] [address] [address] [address] Milena Rosa Urea nitrogen/Creatinine [Mass ratio] 18.9 mg/mg Normal [facility] Comment on above: Performed By: #### B MP #### [facility] [address] [address] [address] Milena Rosa NM STRESS/REST MULTIon 04-28 NM STRESS/REST MULTI Patient: GIOVANNA RICHARDSON Exam Date: 04/28/2022 : 1940 Gender:F Ordering : DR OVI CROOKS D.O. Admission #: [id number] Family : Order #: [id number] CLICK HERE TO VIEW EXAM RADIOLOGY REPORT [...] on 04/28/2022 at 14:26 Normal [facility] CBC AUTO DIFFon 02-27-2022 BASO # 0.0 103/ul Normal 0.0-0.1 [facility] Comment on above: Performed By: #### C BC ####[facility] [address] [place], [place] [address]Dr. Milena Rosa Basophils/100 WBC (Bld) 0.5 % Normal 0.2-2.0 [facility] Comment on above: Performed By: #### C BC ####[facility] [address] [place], [place] [address]Dr. Kimberleychinedu Rosa EO # 0.1 103/ul Normal 0.0-0.7 [facility] Comment on above: Performed By: #### C BC ####[facility] [address] [place], [place] [address]Dr. Kimberleychinedu Rosa Eosinophils/100 WBC (Bld) 1.9 % Normal 0.9-7.0 [facility] Comment on above: Performed By: #### C BC ####[facility] [address] [address]Dr. Kimberleychinedu Rosa Erythrocyte distribution width (RBC) [Ratio] 14.3 % Normal 11.0-15.0 [facility] Comment on above: Performed By: #### C BC ####[facility] [address] [address]Dr. Milena oRsa Hematocrit (Bld) [Volume fraction] 37.6 % Normal 36.0-48.0 [facility] Comment on above: Performed By: #### C BC ####[facility] [address] [address]Dr. Milena Rosa Hemoglobin (Bld) [Mass/Vol] 12.6 g/dL Normal 12.0-16.0 [facility] Comment on above: Performed By: #### C BC ####[facility] [address] [address]Dr. Milena Rosa IG # 0.02 10e3/ul Normal 0.00-0.03 [facility] Comment on above: Performed By: #### C BC ####[facility] [address] [address]Dr. Milena Rosa IG % 0.3 % Normal 0.0-0.5 [facility] Comment on above: Performed By: #### C BC ####[facility] [address] [place], [place] [address]Dr. Milena Rosa LYMPH # 2.1 103/ul Normal 1.2-3.8 [facility] Comment on above: Performed By: #### C BC ####[facility] [address] [place], [place] [address]Dr. Milena Rosa Lymphocytes/100 WBC (Bld) 33.2 % Normal 20.5-60.0 [facility] Comment on above: Performed By: #### C BC ####[facility] [address] [place], [place] [address]Dr. Milena Rosa MANUAL DIFF REQ NO Normal [facility] Comment on above: Performed By: #### C BC ####[facility] [address] [place], [place] [address]Dr. Kimberleychinedu Rosa MCH (RBC) [Entitic mass] 30.9 pg Normal 26.7-34.0 [facility] Comment on above: Performed By: #### C BC ####[facility] [address] [id number]. Milena Rosa MCHC (RBC) [Mass/Vol] 33.5 g/dL Normal 29.9-35.2 [facility] Comment on above: Performed By: #### C BC ####[facility] [address] [id number]. Milena Rosa MCV (RBC) [Entitic vol] 92.2 fL Normal 81.0-99.0 [facility] Comment on above: Performed By: #### C BC ####[facility] [address] [id number]. Milena Rosa MONO # 0.6 103/ul Normal 0.3-0.8 [facility] Comment on above: Performed By: #### C BC ####[facility] [address] [place], [place] [address]Dr. Milena Rosa Monocytes/100 WBC (Bld) 8.9 % Normal 1.7-12.0 [facility] Comment on above: Performed By: #### C BC ####[facility] [address] [place], [place] [address]Dr. Milena Rosa NEUT # 3.5 103/ul Normal 1.4-6.5 [facility] Comment on above: Performed By: #### C BC ####[facility] [address] [place], [place] [address]Dr. Milena Rosa Neutrophils/100 WBC (Bld) 55.2 % Normal 43.0-75.0 [facility] Comment on above: Performed By: #### C BC ####[facility] [address] [id number]. Milena Rosa Platelet mean volume (Bld) [Entitic vol] 11.6 fL Normal 9.5-13.5 [facility] Comment on above: Performed By: #### C BC ####[facility] [address] [place], [place] [address]Dr. Milena Rosa PLT 217 103/ul Normal 150-450 [facility] Comment on above: Performed By: #### C BC ####[facility] [address] [place], [place] [address]Zd. Milena Rosa RBC 4.08 106/ul Critically low 4.20-5.40 [facility] Comment on above: Performed By: #### C BC ####[facility] [address] [place], [place] [address]VnElia Rosa WBC 6.3 103/ul Normal 4.0-11.0 [facility] Comment on above: Performed By: #### C BC ####[facility] [address] [place], [place] [address]Dd. Milena Rosa ECHOCARDIO M/2D COMPLETEon 1 ECHOCARDIO M/2D COMPLETE Patient: GIOVANNA RICHARDSON Exam Date: 02/27/2022 : 1940 Gender:F Ordering : DR OVI CROOKS D.O. Admission #: [id number] Family : Order #: [id number] CLICK HERE TO VIEW EXAM ECHOCARDIOGRAM REPORT [...] M.D. on 03/01/2022 at 11:53 Normal [facility] PROF CHEM 8 (BAS B)on Anion gap [Moles/Vol] 6.1 mmol/L Normal [facility] Comment on above: Performed By: #### B TERESA, TSH #### [facility] [address] [address] [address] Milena Rosa Calcium [Mass/Vol] 9.0 mg/dL Normal 8.5-10.1 [facility] Comment on above: Performed By: #### B TERESA, TSH #### [facility] [address] [address] [address] Milena Rosa Chloride [Moles/Vol] 103 mmol/L Normal 98-107 [facility] Comment on above: Performed By: #### B TERESA, TSH #### [facility] [address] [place] [address] Dr. Milena Rosa CO2 [Moles/Vol] 34.4 mmol/L Critically high 21.0-32.0 [facility] Comment on above: Performed By: #### B TERESA, TSH #### [facility] [address] [place] [address] Dr. Milena Rosa Creatinine [Mass/Vol] 1.21 mg/dL Critically high 0.55-1.02 [facility] Comment on above: Performed By: #### B TERESA, TSH #### [facility] [address] [place] [address] Dr. Milena Rosa EGFR-AF MICRONESIAN 52 mL/min/1.73m2 Critically low >=60 [facility] Comment on above: Performed By: #### B TERESA, TSH #### [facility] [address] [place] [address] Dr. Milena Rosa EGFR-NON AF MICRONESIAN 43 mL/min/1.73m2 Critically low >=60 [facility] Comment on above: Performed By: #### B TERESA, TSH #### [facility] [address] [place] [address] Dr. Milena Rosa Glucose [Mass/Vol] 101 mg/dL Normal 74-106 [facility] Comment on above: Performed By: #### B TERESA, TSH #### [facility] [address] [address] [address] Milena Rosa Potassium [Moles/Vol] 3.5 mmol/L Normal 3.5-5.1 [facility] Comment on above: Performed By: #### B MP, TSH #### [facility] [address] [place] [address] Dr. Milena Rosa Sodium [Moles/Vol] 140 mmol/L Normal 136-145 [facility] Comment on above: Performed By: #### B MP, TSH #### [facility] [address] [place] [address] Dr. Milena Rosa Urea nitrogen [Mass/Vol] 20.0 mg/dL Critically high 7.0-18.0 [facility] Comment on above: Performed By: #### B MP, TSH #### [facility] [address] [place] [address] Dr. Milena Rosa Urea nitrogen/Creatinine [Mass ratio] 16.5 mg/mg Normal [facility] Comment on above: Performed By: #### B MP, TSH #### [facility] [address] [place] [address] Dr. Milena Rosa TSHon 02-27-2022 TSH 1.640 uIU/mL Normal 0.358-3.740 [facility] Comment on above: Performed By: #### B MP, TSH #### [facility] [address] [place] [address] Dr. Milena Rosa XR CHEST 2 Von [...] WHITNEY FOURNIER Date: 2022-02-27 13:49 Normal [facility] MRI LSPINE WO CONon 01-10-20 MRI [facility] CON EXAMINATION: MRI [facility] CON HISTORY: Lumbar spondylosis ; chronic [...] by: WILLIAM BERMEO Date: 2022-01-09 16:20 Normal [facility] XR hand BI 3Von 12-21-2021 XR hand BI [address]V [facility] [place] [address] [place] [address] XRay Report Signed Patient: Giovanna Richardson MR#: [id number] : 1940 Acct:[id number] Age/Sex: 81 / F ADM Date: 12/21/21 [place] [facility] [place]: Type: [facility] Attending Dr: Brina Morrissey MD Copies [...] Caal Jr., D.OElia12/21/2021 2:31 PM Dictation Location: [place] [address] Transcribed By: [facility] 12/21/21 1431 Dictated By: Erasmo Caal Jr, DO 12/21/21 1427 Signed By: 12/21/21 1431 [facility] CBC AUTO DIFFon 09-14-2021 BASO # 0.0 103/ul Normal 0.0-0.1 [facility] Comment on above: Performed By: #### C BC #### [facility] [address] [address] [address] Milena Rosa Basophils/100 WBC (Bld) 0.2 % Normal 0.2-2.0 [facility] Comment on above: Performed By: #### C BC #### [facility] [address] [place] [address] Dr. Milena Rosa EO # 0.1 103/ul Normal 0.0-0.7 [facility] Comment on above: Performed By: #### C BC #### [facility] [address] [place] [address] Dr. Milena Rosa Eosinophils/100 WBC (Bld) 2.8 % Normal 0.9-7.0 [facility] Comment on above: Performed By: #### C BC #### [facility] [address] [place] [address] Dr. Milena Rosa Erythrocyte distribution width (RBC) [Ratio] 13.4 % Normal 11.0-15.0 [facility] Comment on above: Performed By: #### C BC #### [facility] [address] [place] [address] Dr. Milena Rosa Hematocrit (Bld) [Volume fraction] 38.2 % Normal 36.0-48.0 [facility] Comment on above: Performed By: #### C BC #### [facility] [address] [place] [address] Dr. Milena Rosa Hemoglobin (Bld) [Mass/Vol] 12.5 g/dL Normal 12.0-16.0 [facility] Comment on above: Performed By: #### C BC #### [facility] [address] [place] [address] Dr. Milena Rosa IG # 0.02 10e3/ul Normal 0.00-0.03 [facility] Comment on above: Performed By: #### C BC #### [facility] [address] [place] [address] Dr. Milena Rosa IG % 0.4 % Normal 0.0-0.5 [facility] Comment on above: Performed By: #### C BC #### [facility] [address] [place] [address] Dr. Milena Rosa LYMPH # 2.1 103/ul Normal 1.2-3.8 [facility] Comment on above: Performed By: #### C BC #### [facility] [address] [place] [address] Dr. Milena Rosa Lymphocytes/100 WBC (Bld) 40.5 % Normal 20.5-60.0 [facility] Comment on above: Performed By: #### C BC #### [facility] [address] [place] [address] Dr. Milena Rosa MANUAL DIFF REQ NO Normal [facility] Comment on above: Performed By: #### C BC #### [facility] [address] [place] [address] Dr. Milena Rosa MCH (RBC) [Entitic mass] 29.7 pg Normal 26.7-34.0 [facility] Comment on above: Performed By: #### C BC #### [facility] [address] [place] [address] Dr. Milena Rosa MCHC (RBC) [Mass/Vol] 32.7 g/dL Normal 29.9-35.2 [facility] Comment on above: Performed By: #### C BC #### [facility] [address] [place] [address] Dr. Milena Rosa MCV (RBC) [Entitic vol] 90.7 fL Normal 81.0-99.0 [facility] Comment on above: Performed By: #### C BC #### [facility] [address] [place] [address] Dr. Milena Rosa MONO # 0.6 103/ul Normal 0.3-0.8 [facility] Comment on above: Performed By: #### C BC #### [facility] [address] [place] [address] Dr. Milena Rosa Monocytes/100 WBC (Bld) 12.0 % Normal 1.7-12.0 [facility] Comment on above: Performed By: #### C BC #### [facility] [address] [place] [address] Dr. Milena Rosa NEUT # 2.3 103/ul Normal 1.4-6.5 [facility] Comment on above: Performed By: #### C BC #### [facility] [address] [place] [address] Dr. Milena Rosa Neutrophils/100 WBC (Bld) 44.1 % Normal 43.0-75.0 [facility] Comment on above: Performed By: #### C BC #### [facility] [address] [place] [address] Dr. Milena Rosa Platelet mean volume (Bld) [Entitic vol] 11.7 fL Normal 9.5-13.5 [facility] Comment on above: Performed By: #### C BC #### [facility] [address] [address] [address] Milena Rosa PLT 206 103/ul Normal 150-450 [facility] Comment on above: Performed By: #### C BC #### [facility] [address] [place] [address] Dr. Milena Rosa RBC 4.21 106/ul Normal 4.20-5.40 [facility] Comment on above: Performed By: #### C BC #### [facility] [address] [place] [address] Dr. Milena Rosa WBC 5.1 103/ul Normal 4.0-11.0 [facility] Comment on above: Performed By: #### C BC #### [facility] [address] [place] [address] Dr. Milena Rosa MG MAMM SCREEN 3D SHERICE CADon 09-14-2021 MG MAMM SCREEN 3D SHERICE CAD Patient: GIOVANNA RICHARDSON Exam Date: 09/14/2021 : 1940 Gender:F Ordering : DR OVI CROOKS D.O. Admission #: [id number] Family : Order #: [id number] CLICK HERE TO VIEW EXAM RADIOLOGY REPORT [...] None Family Cancers None LOCATION: [facility] BREAST COMPOSITION: Scattered areas fibroglandular density. [...] Ziegler MD on 09/14/2021 at 10:42 Normal [facility] PROF CHEM 8 (BAS METB)on Anion gap [Moles/Vol] 10.5 mmol/L Normal [facility] Comment on above: Performed By: #### B MP #### [facility] [address] [place] [address] Dr. Milena Rosa Calcium [Mass/Vol] 9.5 mg/dL Normal 8.5-10.1 [facility] Comment on above: Performed By: #### B MP #### [facility] [address] [place] [address] Dr. Milena Rosa Chloride [Moles/Vol] 101 mmol/L Normal 98-107 [facility] Comment on above: Performed By: #### B MP #### [facility] [address] [place] [address] Dr. Milena Rosa CO2 [Moles/Vol] 31.1 mmol/L Normal 21.0-32.0 [facility] Comment on above: Performed By: #### B MP #### [facility] [address] [address] [address] Milena Rosa Creatinine [Mass/Vol] 1.01 mg/dL Normal 0.55-1.02 [facility] Comment on above: Performed By: #### B MP #### [facility] [address] [place] [address] Dr. Milena Rosa EGFR-AF MICRONESIAN >60 Normal >=60 [facility] Comment on above: Performed By: #### B MP #### [facility] [address] [place] [address] Dr. Milena Rosa EGFR-NON AF MICRONESIAN 53 mL/min/1.73m2 Critically low >=60 [facility] Comment on above: Performed By: #### B MP #### [facility] [address] [address] [address] Milena Rosa Glucose [Mass/Vol] 96 mg/dL Normal 74-106 [facility] Comment on above: Performed By: #### B MP #### [facility] [address] [address] [address] Milena Rosa Potassium [Moles/Vol] 3.6 mmol/L Normal 3.5-5.1 [facility] Comment on above: Performed By: #### B MP #### [facility] [address] [address] [address] Milena Rosa Sodium [Moles/Vol] 139 mmol/L Normal 136-145 [facility] Comment on above: Performed By: #### B MP #### [facility] [address] [address] [address] Milena Rosa Urea nitrogen [Mass/Vol] 20.0 mg/dL Critically high 7.0-18.0 [facility] Comment on above: Performed By: #### B MP #### [facility] [address] [address] [address] Milena Rosa Urea nitrogen/Creatinine [Mass ratio] 19.8 mg/mg Normal [facility] Comment on above: Performed By: #### B MP #### [facility] [address] [address] [address] Milena Rosa Coding Summary.on 12-26-2017 Coding Summary. CODING DATE: 12/26/2017 FINAL [facility] STATUS: Home (Routine DC) PAYOR: Medicare APC DESCRIPTION 5[facility] Procedures ADMIT DX: REASON FOR VISIT DX: H26.492 Other secondary cataract, left eye FINAL DX: PRINCIPAL: H26.492 Other secondary cataract, left eye SECONDARY: PYMT PROC APC STAT DESCRIPTION DOCTOR NAME DATE 43993 0951 T Discission of secondary Quinn Armendariz DO [...] Eddy Revised Date Saved: 12/26/2017 11:03 am [facility] Coding Summary.on 12-19-2017 Coding Summary. CODING DATE: 12/19/2017 FINAL [facility] STATUS: Home (Routine DC) PAYOR: Medicare APC DESCRIPTION [facility] Procedures ADMIT DX: REASON FOR VISIT DX: H26.40 Unspecified secondary cataract FINAL DX: PRINCIPAL: H26.40 Unspecified secondary cataract SECONDARY: PYMT PROC APC STAT DESCRIPTION DOCTOR NAME DATE 65871 5481 T Discission of secondary Quinn Armendariz [...] Shilpa Perez Date Saved: 12/19/2017 09:21 am [facility] Vital Signs Date Time Vital Sign Value Performing Clinician Facility 02-25-2024 10:040 Body height 151.13 cm [facility] 02-25-2024 10:080400 Body mass index (BMI) [Ratio] 30.4 kg/m2 [facility] 02-25-2024 10:080400 Body weight 69.39 kg [facility] 02-25-2024 10:08-0400 Diastolic blood pressure 70 mm[Hg] [facility] 02-25-2024 10:08-0400 Heart rate 61 /min [facility] 02-25-2024 10:080400 Respiratory rate 12 /min [facility] 02-25-2024 10:080400 Systolic blood pressure 126 mm[Hg] [facility] 07-20-2023 09:05-0400 Body height 151.13 cm [facility] 07-20-2023 09:05-0400 Body mass index (BMI) [Ratio] 29.8 kg/m2 [facility] 07-20-2023 09:05-0400 Body weight 68.2 kg [facility] 07-20-2023 09:05-0400 Diastolic blood pressure 71 mm[Hg] [facility] 07-20-2023 09:05-0400 Heart rate 62 /min [facility] 07-20-2023 09:05-0400 Respiratory rate 12 /min [facility] 07-20-2023 09:05-0400 Systolic blood pressure 112 mm[Hg] [facility] 02-20-2023 16:00-0400 Body height Ovi Ball Other [facility] [employer] Other 02-20-2023 16:00-0400 Body mass index (BMI) [Ratio] 30.44 kg/m2 Ovi Ball Other [facility] [employer] Other 02-20-2023 16:00-0400 Body weight 69.54 kg Ovi Ball Other [facility] [employer] Other 02-20-2023 16:00-0400 Diastolic blood pressure 78 mm[Hg] Ovi Ball Other [facility] [employer] Other 02-20-2023 16:00-0400 Respiratory rate 12 /min Ovi Ball Other [facility] [employer] Other 02-20-2023 16:00-0400 Systolic blood pressure 144 mm[Hg] Ovi Ball Other [facility] [employer] Other 07-17-2022 16:30-0400 Body height Ovi Ball Other [facility] [employer] Other 07-17-2022 16:30-0400 Body mass index (BMI) [Ratio] 31.33 kg/m2 [facility]vi [employer] Other [employer] Other 07-17-2022 16:30-0400 Body weight 71.58 kg Ovi [employer] Other [employer] Other 07-17-2022 16:30-0400 Diastolic blood pressure 75 mm[Hg] [facility] [employer] Other [employer] Other 07-17-2022 16:30-0400 Respiratory rate 12 /min [facility]vi [employer] Other [employer] Other 07-17-2022 16:30-0400 Systolic blood pressure 122 mm[Hg] [facility] [employer] Other [employer] Other 12-21-2021 11:00-0400 Body height Brina Morrissey Other [employer] Other Encounters Encounter Date Encounter Type Care Provider Facility Start: 02-25-2024 End: 02-25-2024 ambulatory [facility] Work Phone: Start: 02-25-2024 End: 02-25-2024 Patient encounter procedure [facility] Work Phone: Start: 02-15-2024 End: 02-15-2024 Loki Rosa MD Work Phone: [facility] Comment on above: LPRD (laryngopharyng eal reflux disease) Start: 01-01-2024 End: 01-01-2024 ambulatory [facility] Work Phone: Start: 01-01-2024 End: 01-01-2024 Patient encounter procedure [facility] Work Phone: Start: 11-07-2023 Non-patient / Non-visit [facility] Work Phone: Start: 09-26-2023 End: 09-26-2023 ambulatory TORRES H TIMMIS Not Available Start: 08-15-2023 End: 08-15-2023 ambulatory TORRES H TIMMIS Not Available Start: 07-20-2023 End: 07-20-2023 ambulatory [facility] Work Phone: Start: 07-20-2023 End: 07-20-2023 Patient encounter procedure [facility] Work Phone: Start: 07-04-2023 End: 07-04-2023 Patient encounter procedure [facility] Work Phone: Start: 04-17-2023 End: 04-17-2023 ambulatory Ovi Ball Other [employer] Other Start: 04-17-2023 Telephone encounter Ovi Ball [facility] Start: 03-13-2023 End: 03-13-2023 ambulatory Ovi Ball Other [employer] Other Start: 03-13-2023 Telephone encounter Ovi Ball [facility] Start: 03-07-2023 End: 03-07-2023 ambulatory Ovi Ball Other [employer] Other Start: 03-07-2023 Telephone encounter Ovi Ball [facility] Start: 03-01-2023 End: 03-01-2023 ambulatory Ovi Ball Other [employer] Other Start: 03-01-2023 Telephone encounter Ovi Ball [facility] Start: 02-28-2023 End: 02-28-2023 ambulatory Ovi Ball Other [employer] Other Start: 02-28-2023 Telephone encounter Ovi Ball [facility] Start: 02-22-2023 End: 02-22-2023 ambulatory Ovi Ball Other [employer] Other Start: 02-22-2023 Telephone encounter Ovi IBARRA [facility] Start: 02-21-2023 End: 02-21-2023 ambulatory Ovi Crooks Other [employer] Other Start: 02-21-2023 Telephone encounter Ovi IBARRA [facility] Start: 02-20-2023 End: 02-20-2023 ambulatory Ovi Crooks Other [employer] Other Start: 02-20-2023 Office outpatient vi sit 25 minutes Ovi Crooks [facility] Start: 01-23-2023 End: 01-23-2023 ambulatory Ovi Valeriy Other [employer] Other Start: 01-23-2023 Telephone encounter Ovi IBARRA [facility] Start: 01-16-2023 End: 01-16-2023 ambulatory Brina Morrissey Other [employer] Other Start: 01-16-2023 Office outpatient vi sit 15 minutes [facility] Start: 01-05-2023 End: 01-05-2023 ambulatory [facility] Start: 11-23-2022 ambulatory DAVID KAPOOR . Facili ty:[facility]1 Start: 09-01-2022 End: 09-02-2022 ambulatory DAVID KAPOOR . Facility:[facility] Start: 07-31-2022 End: 07-31-2022 ambulatory Brina Morrissey Other [employer] Other Start: 07-31-2022 Telephone encounter Brina Wright [facility] Start: 07-26-2022 End: 07-27-[address] OVI CROOKS Facility:[facility]1 Start: 07-26-2022 End: 07-26-2022 ambulatory [facility] Start: 07-25-2022 End: 07-25-2022 ambulatory NARENDRANATH LAKSHMIPATHY . Facility:[facility] Start: 07-20-2022 End: 07-21-2022 ambulatory NARENDRANATH LAKSHMIPATHY . Facility:[facility] Start: 07-19-2022 End: 07-20-[address] OVI CROOKS [facility] [employer] Other Start: 07-19-2022 Telephone encounter Ovi Crooks [facility] Start: 07-17-2022 End: 07-17-2022 ambulatory Ovi Crooks Other [facility] [employer] Other Start: 07-17-2022 Patient encounter procedure Ovi GUERRERO [facility] Start: 06-20-2022 End: 06-20-[address] ELIZABETH JESSICA . Facility:[facility]1 Start: 06-07-2022 Telephone encounter Brina Carinehernan Wright BONILLA [facility] Start: 06-07-2022 End: 06-07-2022 ambulatory [facility] [employer] Other Start: 05-20-2022 Encounter for preprocedural laboratory examination [facility] Start: 05-15-2022 End: 05-16-2022 ambulatory [facility] Facility:[facility]1 Start: 05-15-2022 End: 05-16-2022 Encounter for preprocedural laboratory examination [facility] Facility:[facility]1 Start: 05-09-[address] ELIZABETH JESSICA [...] 01-18-2022 End: 01-18-2022 ambulatory Brina Morrissey Other [employer] Other Start: 01-18-2022 Office outpatient vi sit 15 minutes Brina Morrissey [facility] Start: 01-09-2022 End: 01-10-2022 ambulatory MARY CRISTOBAL . Facility:[facility]1 Start: 12-29-2021 End: 12-30-2021 ambulatory MARY CRISTOBAL . Facility:[facility] Start: 12-21-2021 End: 12-21-2021 ambulatory Brina Morrissey Other [employer] Other Start: 12-21-2021 Office outpatient ne w 30 minutes Brina Morrissey [facility] Start: 12-21-2021 End: 12-21-2021 Patient encounter procedure MD Brina Morrissey Work Phone: [facility] Start: 12-13-2021 End: 12-13-[address] ELIZABETH JESSICA . Facility: Start: 12-01-2021 End: 12-02-2021 ambulatory MARY CRISTOBAL . Facility: Start: 09-14-2021 End: 09-15-[address] OVI CROOKS Facility: Start: 08-17-2021 Adult health examination Brina Morrissey Other [employer] Other Start: 12-25-2017 End: 12-25-2017 Patient encounter Quinn Armendariz Facility:[facility] Start: 12-18-2017 End: 12-18-2017 Patient encounter Quinn Armendariz Facility:[facility] Procedures Date Procedure Procedure Detail Performing Clinician [...] procedure 04/14/2024 2:20 PM EST [facility] [address] [place] [address] Brigitte Yang NP [address] [place], [place] [facility] [address] Start: 12-30-2023 Influenza vaccination Influenza Vacc ine (#1) [facility] Immunizations Immunization Date Immunization Notes Care Provider Fa cili 02-25-2024 influenza, high dose seasonal, preservative-free [facility] 02-17-2022 influenza, high dose seasonal, preservative-free Ovi Crooks Other [facility] [employer] Other 02-17-2022 influenza virus vaccine, split virus (incl. purified surface antigen) Brina Morrissey Other [facility] [employer] Other 02-17-2022 influenza virus vaccine, unspecified formulation [facility] 04-04-2021 COVID-19 Vaccine Pfi zer - Documentation Purposes Only Ovi Crooks Other [facility] 01-17-2021 influenza virus vaccine, split virus (incl. purified surface antigen) Brina Morrissey Other [facility] [employer] Other 01-17-2021 influenza virus vaccine, unspecified formulation [facility] 06-17-2020 COVID-19 Vaccine Pfi zer - Documentation Purposes Only Ovi Crooks Other [facility] 05-27-2020 COVID-19 Vaccine Moderna - Documentation Purposes Only Brina Morrissey Other [facility] 05-27-2020 COVID-19 Vaccine Pfi zer - Documentation Purposes Only Ovi Crooks Other [place] [facility] 03-10-2020 influenza virus vaccine, split virus (incl. purified surface antigen) Brina Morrissey Other [email or web address] [facility] [employer] Other 03-10-2020 influenza virus vaccine, unspecified formulation [facility] 03-07-2019 influenza virus vaccine, split virus (incl. purified surface antigen) Brina Morrissey Other [email or web address] [facility] [employer] Other 03-07-2019 influenza virus vaccine, unspecified formulation [facility] 03-27-2018 influenza virus vaccine, split virus (incl. purified surface antigen) Brina Morrissey Other [email or web address] [facility] [employer] Other 03-27-2018 influenza virus vaccine, unspecified formulation [facility] 03-16-2017 pneumococcal Conjuga te, unspecified formulation; Translations: [Need for prophylactic vaccination against Streptococcus pneumoniae (pneumococcus)] Brina Morrissey Other [email or web address] [facility] [employer] Other 03-16-2017 pneumococcal polysaccharide vaccine, 23 valent Ovi Crooks Other [facility] 11-17-2016 pneumococcal conjuga te vaccine, 13 valent Ovi Crooks Other [facility] 02-09-2016 influenza virus vaccine, split virus (incl. purified surface antigen) Brina Morrissey Other [email or web address] [facility] [employer] Other 02-09-2016 influenza virus vaccine, unspecified formulation [facility] Payers Date Payer Category Payer Medicare [id number] 2016 [employer] Blue [employer] BCBS [id number] 2007 Medicare MEDICARE [id number] 1959 Medicare [id number] 1959 Unknown [id number] 1942 Unknown [id number] 2.16840.1.680952.3.579. 2.59 1942 Unknown [id number] 2.16.840.1.525496.3.579. 2.59 1942 Unknown [id number] 2.16.840.1.172295.3.579. 2.59 1942 Unknown [id number] 2.16.840.1.418628.3.579. 2.593 1942 Unknown [id number] 2.16.840.1.648441.3.579. 2.593 1942 Unknown [id number] 2.16.840.1.794528.3.579. 2.593 1942 Unknown [id number] 2.16.840.1.315554.3.579. 2.593 1942 Unknown [id number] 2.16.840.1.065644.3.579. 2.593 1942 Unknown [id number] 2.16.840.1.983658.3.579. 2.593 1942 Unknown [id number] 2.16.840.1.906097.3.579. 2.593 1942 Unknown [id number] 2.16.840.1.611570.3.579. 2.593 1942 Unknown [id number] 2.16.840.1.598255.3.579. 2.593 1942 Unknown [id number] 2.16.840.1.239009.3.579. 2.593 1942 Unknown [id number] 2.16.840.1.044000.3.579. 2.593 1942 Unknown [id number] 2.16.840.1.831781.3.579. 2.593 1942 Unknown [id number] 2.16.840.1.791248.3.579. 2.593 1942 Unknown [id number] 2.16.840.1.849640.3.579. 2.593 1942 Unknown [id number] 2.16.840.1.104793.3.579. 2.593 1942 Unknown [id number] 2.16.840.1.922331.3.579. 2.593 1942 Unknown [id number] 2.16.840.1.662152.3.579. 2.593 1942 Unknown [id number] 2.16.840.1.851673.3.579. 2.593 1942 Unknown [id number] 2.16.840.1.769805.3.579. 2.593 1942 Unknown [id number] 2.16.840.1.986943.3.579. 2.593 1942 Unknown [id number] 2.16.840.1.675180.3.579. 2.593 1942 Unknown [id number] 2.16.840.1.762490.3.579. 2.1259 1942 Unknown [id number] 2.16.840.1.699046.3.579. 2.1259 Social History Date Type Detail Facility Tobacco smoking stat us [facility] Unknown if ever smoked [facility] Work Phone: Start: 1940 Sex Assigned At Female F [facility] Start: 10-08-2023 Sex Assigned At [facility] Other Start: 06-28-2023 End: 08-09-2023 Tobacco smoking status NHIS Never smoked tobacco (finding) [facility] Start: 08-09-2023 Tobacco use and exposure [...] them to contact Dr. Arriola for clearance. [facility] 04-17-2023 Evaluation note Encounter Date Diagnosis Assessment Notes Mar, Acute cerebral infarction (ICD-10 - I63.9) Mar, Cerebral atherosclerosis (ICD-10 - I67.2) [employer] Other 11-01-2023 Evaluation note* Encounter Date Diagnosis Assessment Notes Treatment Notes Treatment Clinical Notes Feb, Acute cerebral infarction (ICD-10 - I63.9) [employer] Other 11-01-2023 Evaluation note* Encounter Date Diagnosis Assessment Notes Treatment Notes Treatment Clinical Notes Feb, Bruit (ICD-10 - R09.89) [employer] Other 10-25-2023 Evaluation note* Encounter Date Diagnosis Assessment Notes Treatment Notes Treatment Clinical Notes Jan, Transient left leg weakness (ICD-10 - R29.898) Jan, Jerking movements of extremities (ICD-10 - R25.2) [employer] [facility] Other 10-24-2023 Evaluation note* Encounter Date Diagnosis [...] the risk for cerebrovascular and cardiovascular disease. [facility] Other 09-19-2023 Evaluation note* Encounter Date Diagnosis [...] Pain in left hand (ICD-10 - M79.642) [employer] Other 09-08-2023 NoteCardiology Clinic Note Chief Complaint: [...] in all muscle groups, (more content not included)...[facility]09-08-2023 NotePatient here for 6 mo follow up CAD, hypertension, and hyperlipidemia. Has not been taking aspirin because she doesn't like taking a lot of pills. Says she's only had chest pain once recently. Sees Dr. Smith and had CT chest in September. [facility]04-03-2023 Evaluation note* Encounter Date Diagnosis Assessment Notes Treatment Notes Treatment Clinical Notes Jul, Pulmonary nodule (ICD-10 - R91.1) RUL 10mm nodule - 06/3022Jul, Cough (ICD9-CM - 786.2) Jul, Mild persistent asthma without complication (ICD-10 - J45.30) [employer] Other 03-29-2023 NoteCardiology Clinic Note Chief Complaint: [...] motor function in all (more content not included)...[facility]03-23-2023 NoteCONSULTATION CONSULTATION DATE: 07/20/2022 TO: Dr. Crooks [...] helping some of her pain symptoms.[id number] Evaluation note* Encounter Date Diagnosis Assessment Notes Treatment Notes Treatment Clinical Notes Jun, Pulmonary nodule (ICD-10 - R91.1) RUL 10mm nodule - 06/3022 [employer] Other 03-20-2023 Evaluation note* Encounter Date Diagnosis [...] mammogram for breast cancer (ICD-10 - Z12.31) [employer] Other 02-08-2023 Evaluation note* Encounter Date Diagnosis Assessment Notes Treatment Notes Treatment Clinical Notes May, ASHD (arterioscleroti c heart disease) (ICD-10 - I25.10) LHC: moderate, nonobstructive coronary disease - 05/2022 [employer] Other 02-08-2023 NotePatient here for follow up [...] light-headedness. All other systems reviewed and are negative.[facility] 06-07-2022 NoteCardiology Clinic Note Chief Complaint: abnormal [...] Value Ventricular Rate 53 Atrial Rate 53 MS Interval 186 QRS DURATION 142 QT Interval 472 QTC CALCULATION(BAZETT) 442 P Ripley 29 R-Ripley -35 T Wave Ripley 59 Impression Sinus bradycardia Left axis deviation Left bundle branch block Abnormal ECG When compared with ECG of 30-NOV-2008 12:01, Premature atrial comple (more content not included)...[facility]10-27-2022 NoteCONSULTATION CONSULTATION DATE: 02/23/2022 This is a [...] be followed in the clinic thereafter.[facility] [id number] Evaluation note* Encounter Date Diagnosis Assessment Notes [...] in both duran ds (ICD-10 - R20.0) [employer] Other 09-01-2022 NoteCONSULTATION CONSULTATION DATE: 12/29/2021 HISTORY [...] is in agreement to move forward.[facility] [id number] Evaluation note* Encounter Date Diagnosis Assessment Notes [...] in both duran ds (ICD-10 - R20.0) [employer] Other 08-04-2022 NoteCONSULTATION CONSULTATION DATE: 12/01/2021 HISTORY [...] up in the office post procedure.[facility] HospitalEvaluation noteNo assessment information availableAdena [facility] Work Phone: Evaluation noteNo InformationNort [employer] Other Evaluation note* Diagnosis Onset Date Resolution [...] noneactive Screening mammogram for breast cancer noneactive [facility] Work Phone: Evaluation note* Diagnosis Onset Date Resolution Status Arthritis of carpometacarpal (CMC) joint of left thumb acute Arthritis of carpometacarpal (CMC) joint of right thum b acute Carpal tunnel syndrome, left acute Carpal tunnel syndrome, right acute [facility] Work Phone: Evaluation note* Diagnosis LPRD (laryngopharyngeal reflux disease) Acute laryngitis, without mention of obstruction documented in this encounter [facility]* Diagnosis Onset Date Resolution Status [...] sleep apnea acut e Primary hypertension acute [facility] Work Phone: Hiskgqa general Narrative - Reported* Type Description Date Medical History Esophageal reflux Medical History seasonal allergies Medical History DIVINA Medical History Hypertension Surgical History APPENEDECTOMY Surgical History HYSTERECTOMY Surgical History SINUS Surgical History LEFT HAND Surgical History HEART CATH Surgical History CHOLECYSTECTOMY [employer] Other Hiscrnc general Narrative - Reported* Type Description Date Medical History Esophageal reflux Medical History seasonal allergies Medical History DIVINA Medical History Hypertension Medical History ASHD (arteriosclerotic heart dis ease) Surgical History APPENEDECTOMY Surgical History HYSTERECTOMY Surgical History SINUS Surgical History LEFT HAND Surgical History HEART CATH Surgical History CHOLECYSTECTOMY Surgical History cardiac catheterization 06/07/22 [employer] Other Hisfaxv general Narrative - Reported* Type Description Date [...] catheterization 06/07/22 Hospitalization History SEE SURGICAL HX [employer] Other Summary Purpose Family History Relationship Condition [...] section and content) DATE CREATED AUTHOR 12/29/2017 Algona Moca [facility] DATE CREATED AUTHOR AUTHOR'S ORGANIZ ATION 12/25/2021 [facility] DATE CREATED AUTHOR AUTHOR'S ORGANIZ ATION 09/08/2022 [facility] DATE CREATED AUTHOR AUTHOR'S ORGANIZ ATION 05/19/2023 [facility] DATE CREATED AUTHOR AUTHOR'S ORGANIZ ATION 09/27/2023 [facility] d[facility] Specialists [facility] Care Teams (unrecognized sec tion and content) [...] July 20, 2023 End: July 20, 2023 Student Records Coordinator Relationship Specialty [place] [address] [place] [id number] PCP - General Internal Medicine 07/10/23 Team [...] BE BASED ON THE PRIMARY CLINICAL RECORDS. [email or web address] [facility]. provides no warranty or guarantee of the accuracy or completeness of information in this document.
--- NOTE | 2024-03-08 10:59 | P.HP_ITS ---
HPI H&P: HPI History of Present Illness Chief complaint: chest pain, HYPOTENSION Narrative: Patient was seen and evaluated in the emergency room with left-sided pain. CT scan was done to look for a pulmonary embolism that was negative. Did have some groundglass appearance but COVID-19 also negative. Patient was given morphine for pain control, after that had significant hypotension with blood pressure 76/44 with a mean arterial pressure of 46. Patient was given some fluids. Impr ovement in blood pressure. When I saw patient up on the medical surgical floor, she was resting in bed with some being uncomfortable with left-sided pain., son was with her., No other complaints. Opioid HPI Opioid Management Most Recent Pain and Opioid Data: Last Pain Scale 4 03/08/24 13:15 03/08/24 Last Pain Assessment 03/08/24 13:15 Last MAR Pain Assessment 03/08/24 12:31 Last ORT Total Score 0 03/08/24 10:05 03/08/24 Last ORT Risk Category Low Risk 03/08/24 10:05 03/08/24 Review of Systems ROS Status of ROS 10 or more systems reviewed and unremark able except as noted in history and below [facility] Medical History (Updated 03/08/24 @ 06:28 by Marin Chase MD) Numbness and tingling ?R20.0 - Anesthesia of skin (ICD-10) ?R20.2 - Paresthesia of skin (ICD-10) Osteoarthritis ?M19.90 - Unspecified osteoarthritis, unspecified site (ICD-10) Upper back pain ?M54.9 - Dorsalgia, unspecified (ICD-10) Low back pain ?M54.50 - Low back pain, unspecified (ICD-10) Acid reflux ?K21.9 - Gastro-esophageal reflux disease without esophagitis (ICD-10) Obesity ?E66.9 - Obesity, unspecified (ICD-10) Sleep apnea ?G47.30 - Sleep apnea, unspecified (ICD-10) Atrial fibrillation ?I48.91 - Unspecified atrial fibrillation (ICD-10) Surgical History 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 - Acquired absence of unspecified finger(s) (ICD-10) S/P lumbar spine operation ?Z98.890 - Other specified postprocedural states (ICD-10) S/P thoracentesis ?Z98.890 - Other specified postprocedural states (ICD-10) S/P sinus surgery ?Z98.890 - Other specified postprocedural states (ICD-10) H/O hand surgery ?Z98.890 - Other specified postprocedural states (ICD-10) H/O cardiac catheterization ?Z98.890 - Other specified postprocedural states (ICD-10) History of hysterectomy ?Z90.710 - Acquired absence of both cervix and uterus (ICD-10) History of cholecystectomy ?Z90.49 - Acquired absence of other specified parts of digestive tract (ICD- 10) Hx of appendectomy ?Z90.49 - Acquired absence of other specified parts of digestive tract (ICD- 10) Social History Highest level of school completed/degree received: high school graduate Little interest or pleasure in doing things: not at all Feeling down, depressed, or hopeless: not at all Meds Home Medications and Allergies Home Medications ?Medication ?Instructions ?Recorded ?Confirmed ?Type atorvastatin 40 mg tablet 40 mg PO DAILY 10/05/22 03/08/24 History escitalopram oxalate 10 mg tablet 10 mg PO DAILY 10/05/22 03/08/24 History (Lexapro) gabapentin 100 mg capsule 100 mg PO BID 10/05/22 03/08/24 History isosorbide mononitrate 30 mg 30 mg PO DAILY 10/05/22 03/08/24 History tablet,extended release 24 hr losartan 50 mg tablet 50 mg PO DAILY 10/05/22 03/08/24 History metoprolol tartrate 25 mg tablet 12.5 mg PO DAILY 10/05/22 03/08/24 History oxybutynin chloride 15 mg 15 mg PO DAILY 10/05/22 03/08/24 History tablet,extended release 24 hr clopidogrel 75 mg PO DAILY 04/12/23 03/08/24 History budesonide-formoterol HFA 160 2 puff inhalation Q12H 03/08/24 03/08/24 History mcg-4.5 mcg/actuation aerosol inhaler (Symbicort) hydrochlorothiazide 25 mg tablet 25 mg PO QAM 03/08/24 03/08/24 History omeprazole 40 mg capsule,delayed 40 mg PO .ACB 03/08/24 03/08/24 History release Allergies Allergy/AdvReac Type Severity Reaction Status Date / Time midazolam (From Versed) Allergy Unknown Vomiting Verified 03/08/24 01:18 Exam Constitutional Vital Signs, click to edit/add: Last Vital Signs Temp 98.0 F 03/08/24 10:05 Pulse 70 03/08/24 10:05 Resp 18 03/08/24 10:05 BP 105/70 03/08/24 10:05 Pulse Ox 89 L 03/08/24 10:05 O2 Del Method Nasal Cannula 03/08/24 10:05 O2 Flow Rate 2 03/08/24 10:05 Documenting provider has reviewed patient's vital signs: yes Common normals: apparent distress (Moderate respiratory distress secondary to pain and chest wall) HENMT Common normals: normocephalic Chest Common normals: inspection of chest normal (No palpable chest pain) Respiratory Common normals: abnormal respiratory effort (Moderate respiratory distress secondary to pain) Auscultation: no rales, no rhonchi and no wheezes Cardio Common normals: irregular rate and irregular rhythm Rate: tachycardic Rhythm: abnormal rhythm GI Common normals: Normal to inspection, nondistended, normoactive bowel sounds present, soft to palpation and non-tender Results Labs Labs: Short CBC 03/08/24 Range/Units 01:45 WBC 9.9 (4.0-11.0) 10^3/uL Hgb 11.6 L (12.0-16.0) g/dL Hct 34.8 L (36.0-48.0) % Plt Count 195 (150-450) 10^3/uL BMP 03/08/24 01:45 Sodium 145 Potassium 3.1 L Chloride 106 Carbon Dioxide 29.0 BUN 18.0 Creatinine 1.25 H Glucose 111 H Calcium 9.0 Assessment and Plan Assessment and Plan (1) Acute hypotension: (2) Pleuritic chest pain: (3) Anticoagulant long-term use: (4) Lumbar spondylosis: (5) Sleep apnea: (6) Atrial fibrillation: Plan Admission findings: Tachycardia, respiratory distress, acute hypotension with a mean arterial blood pressure of 56 in the emergency room. Secondary to left- sided pain. Groundglass appearance on CT scan but no signs of heart failure or COVID. Left-sided pain possibly related to pleurisy. Left-sided chest wall pain with increasing pain with deep inspiration consistent with pleurisy. Patient with significant hypotension with current treatment plan. Monitor closely. Hypokalemia-supplement and monitor daily Groundglass appearance on CT scan with possible left lower lobe pneumonia- monitor as an outpatient possibly related to pleurisy, IV antibiotics. Toradol and steroids for pain control. LVH-monitor as an outpatient Acute kidney injury, baseline creatinine of 1.06, admission creatinine of 1.25 resulting in 118% above baseline secondary to dehydration Bradycardia-monitor on telemetry Hypercholesterolemia- continue with home medication Depression-continue with home medications Low back pain-continue with home medications Hypertension-continue with home medications GERD-continue with home medications Bladder spasm-continue with home medications Admission status: Patient initially placed in observation with the symptoms as outlined above, patient not significantly improved today with pain persisting further. Medications will be adjusted today. But medically necessary treatment will span 2 midnights. Inpatient status.
[2024-03-08 11:11] LABS: Bilirubin Urine NEGATIVE (NEGATIVE); Blood Urine TRACE-L (NEGATIVE); Clarity Urine CLEAR (CLEAR); Color Urine LT. YELLOW (YELLOW); Glucose Urine UA NEGATIVE (NEGATIVE); Ketones Urine NEGATIVE (NEGATIVE); Leukocyte Esterase Urine NEGATIVE (NEGATIVE); Nitrite Urine NEGATIVE (NEGATIVE); Protein Urine NEGATIVE (NEG/TRACE)
[2024-03-08 11:19] LABS: Bacteria Urine TRACE #/HPF (NONE SEEN); Cast Seen? SEEN #/LPF (NONE SEEN); Crystals Seen? None Seen #/HPF (None Seen); Hyaline Casts Urine RARE; Mucus Urine TRACE (NONE SEEN); RBC Urine 0-2 #/HPF (0-2); Squamous Epithelial Cell Urine RARE #/LPF (NONE/RARE); Urine Culture Indicated NO; WBC Urine 0-2 #/HPF (NONE SEEN)
[2024-03-08 11:38] LABS: Influenza Virus A Antigen Negative; Influenza Virus B Antigen Negative; Internal Control Within Normal Limits; SARS-CoV-2 Ag NEGATIVE (NEGATIVE)
[2024-03-08 11:47] LABS: Lactate/Lactic Acid 1.2 mmol/L (0.4-2.0)
[2024-03-08 11:57] LABS: Troponin I High Sensitivity 9.3 pg/mL (4.0-51.3)
[2024-03-08 12:25] LABS: Alanine Aminotransferase 156 U/L (14-59); Albumin Level 3.2 g/dL (3.4-5.0); Alkaline Phosphatase 89 U/L (46-116); Aspartate Amino Transferase 178 U/L (15-37); Bilirubin Direct 0.4 mg/dL (0.0-0.2); Bilirubin Total 1.4 mg/dL (0.2-1.0); Globulin 3.1 g/dL; Magnesium 1.9 mg/dL (1.8-2.4); Total Protein 6.3 g/dL (6.4-8.2)
[2024-03-08] MEDS: LACTATED RINGER'S SOLUTION 1,000 ML 100 ML IV ×2 (12:30→20:50)
[2024-03-08] MEDS: CEFTRIAXONE 1,000 MG in 0.9 % SODIUM CHLORIDE 50 ML 100 MG IV (12:31)
[2024-03-08] MEDS: KETOROLAC TROMETHAMINE 30 MG/ML VIAL 15 MG IVP ×2 (12:31→18:25)
[2024-03-08] MEDS: HYOSCYAMINE SULFATE 0.125 MG TAB.SUBL SL ×2 (12:31→16:07)
[2024-03-08] MEDS: DEXAMETHASONE SOD PHOS 20 MG/5 ML VIAL 6 MG IVP (12:32)
[2024-03-08] MEDS: ISOSORBIDE MONONITRATE 30 MG TAB.ER.24H PO (16:07)
[2024-03-08] MEDS: OXYBUTYNIN CHLORIDE 5 MG TAB XL 15 MG PO (16:08)
[2024-03-08] MEDS: OMEPRAZOLE 40 MG CAPSULE.DR PO (16:08)
[2024-03-08] MEDS: GABAPENTIN 100 MG CAPSULE PO ×2 (16:09→20:50)
[2024-03-08] MEDS: CLOPIDOGREL BISULFATE 75 MG TABLET PO (16:09)
[2024-03-08] MEDS: ESCITALOPRAM 10 MG TABLET PO (16:09)
[2024-03-08] MEDS: TRAMADOL HCL 50 MG TABLET PO (20:50)
[2024-03-08] MEDS: ATORVASTATIN CALCIUM 40 MG TABLET PO (20:50)
[2024-03-08] MEDS: IPRATROPIUM/ALBUTEROL SULFATE 3 ML AMPUL.NEB IH (22:19)
[2024-03-08] MEDS: BUDESONIDE 0.5 MG/2 ML AMPULE NEB IH (22:19)
[2024-03-08 22:55] LABS: A. calcoaceticus-baumannii Cpx NOT DETECTED (NOT DETECTE); Bacteroides fragilis NOT DETECTED (NOT DETECTE); Candida albicans NOT DETECTED (NOT DETECTE); Candida auris NOT DETECTED (NOT DETECTE); Candida glabrata NOT DETECTED (NOT DETECTE); Candida krusei NOT DETECTED (NOT DETECTE); Candida parapsilosis NOT DETECTED (NOT DETECTE); Candida tropicalis NOT DETECTED (NOT DETECTE); Cryptococcus neoformans/gattii NOT DETECTED (NOT DETECTE); Enterobacter cloacae complex NOT DETECTED (NOT DETECTE); Enterobacterales NOT DETECTED (NOT DETECTE); Enterococcus faecalis NOT DETECTED (NOT DETECTE); Enterococcus faecium NOT DETECTED (NOT DETECTE); Haemophilus influenzae NOT DETECTED (NOT DETECTE); Klebsiella aerogenes NOT DETECTED (NOT DETECTE); Klebsiella pneumoniae group NOT DETECTED (NOT DETECTE); Listeria monocytogenes NOT DETECTED (NOT DETECTE); Neisseria meningitidis NOT DETECTED (NOT DETECTE); Proteus spp. NOT DETECTED (NOT DETECTE); Pseudomonas aeruginosa NOT DETECTED (NOT DETECTE); Salmonella spp. NOT DETECTED (NOT DETECTE); Serratia marcescens NOT DETECTED (NOT DETECTE); Staphylococcus epidermidis NOT DETECTED (NOT DETECTE); Staphylococcus lugdunensis NOT DETECTED (NOT DETECTE); Staphylococcus spp. NOT DETECTED (NOT DETECTE); Stenotrophomonas maltophilia NOT DETECTED (NOT DETECTE); Streptococcus agalactiae NOT DETECTED (NOT DETECTE); Streptococcus pneumoniae NOT DETECTED (NOT DETECTE); Streptococcus pyogenes NOT DETECTED (NOT DETECTE); Streptococcus spp. NOT DETECTED (NOT DETECTE)
[2024-03-09] VITALS (12 sets, daily range): BP systolic 91–110; BP diastolic 53–62; PULSE 65–91; TEMP 36.3–36.8; O2SAT 90–94
[2024-03-09] MEDS: KETOROLAC TROMETHAMINE 30 MG/ML VIAL 15 MG IVP ×2 (01:05→05:51)
[2024-03-09] MEDS: IPRATROPIUM/ALBUTEROL SULFATE 3 ML AMPUL.NEB IH (05:04)
[2024-03-09] MEDS: HYOSCYAMINE SULFATE 0.125 MG TAB.SUBL SL (05:51)
[2024-03-09] MEDS: OMEPRAZOLE 40 MG CAPSULE.DR PO (05:51)
[2024-03-09 06:25] LABS: Basophils Percent Auto 0.1 % (0.2-2.0); Hematocrit 35.4 % (36.0-48.0); Hemoglobin 11.5 g/dL (12.0-16.0); Immature Granulocytes Abs Auto 0.06 10^3/uL (0.00-0.03); Immature Granulocytes Pct Auto 0.7 % (0.0-0.5); Lymphocytes Absolute Auto 1.3 10^3/uL (1.2-3.8); Lymphocytes Percent Auto 13.9 % (20.5-60.0); Mean Corpuscular HGB Conc 32.5 g/dL (29.9-35.2); Mean Corpuscular Hemoglobin 30.1 pg (26.7-34.0); Mean Corpuscular Volume 92.7 fL (81.0-99.0); Monocytes Absolute Auto 0.3 10^3/uL (0.3-0.8); Monocytes Percent Auto 3.4 % (1.7-12.0); Neutrophils Absolute Auto 7.6 10^3/uL (1.4-6.5); Neutrophils Percent Auto 81.9 % (43.0-75.0); Platelet Count 179 10^3/uL (150-450); Red Blood Count 3.82 10^6/uL (4.20-5.40); White Blood Count 9.2 10^3/uL (4.0-11.0)
[2024-03-09 06:45] LABS: Anion Gap 19.1; BUN Creatinine Ratio 12.1; Calcium 8.9 mg/dL (8.5-10.1); Carbon Dioxide 21.8 mmol/L (21.0-32.0); Chloride 103 mmol/L (98-107); Estimated GFR (African America 34 (>=60 mL/min/1.73m^2); Estimated GFR (Non-African Ame 28 (>=60 mL/min/1.73m^2); Glucose 164 mg/dL (74-106); Sodium 141 mmol/L (136-145)
[2024-03-09 06:49] LABS: Potassium 2.9 mmol/L (3.5-5.1)
[2024-03-09] MEDS: ISOSORBIDE MONONITRATE 30 MG TAB.ER.24H PO (09:17)
[2024-03-09] MEDS: CLOPIDOGREL BISULFATE 75 MG TABLET PO (09:17)
[2024-03-09] MEDS: OXYBUTYNIN CHLORIDE 5 MG TAB XL 15 MG PO (09:17)
[2024-03-09] MEDS: GABAPENTIN 100 MG CAPSULE PO (09:17)
[2024-03-09] MEDS: 0.9 % SODIUM CHLORIDE 1,000 ML 1000 ML IV (09:17)
[2024-03-09] MEDS: POTASSIUM CHLORIDE 10 MEQ ER TABLET 20 MEQ PO (09:17)
[2024-03-09] MEDS: ESCITALOPRAM 10 MG TABLET PO (09:17)
[2024-03-09] MEDS: POTASSIUM CHLORIDE 40 MEQ in 0.9 % SODIUM CHLORIDE 250 ML 67.5 MEQ IV (09:20)
[2024-03-09 09:35] LABS: Source Blood
--- NOTE | 2024-03-09 10:50 | P.DS_ITS ---
DS: Providers Provider Date of admission: 03/08/24 09:43 Primary care physician: Ovi Crooks DO Consults: 03/08/24 11:00 Consult to Pharmacy Routine Consulting Provider: Reason for consultation: Please [place] me when Med Rec is Updated Has provider been notified: No Occupational Therapy Eval and Treat Routine Reason for consultation: Only if needed for Rehab Has provider been notified: No Physical Therapy Eval and Treat Routine Reason for consultation: Eval and Treat Has provider been notified: No DS: Diagnosis Discharge Diagnosis (1) Acute hypotension: (2) Pleuritic chest pain: (3) Anticoagulant long-term use: (4) Lumbar spondylosis: (5) Sleep apnea: (6) Atrial fibrillation: Plan Admission findings: Tachycardia, respiratory distress, acute hypotension with a mean arterial blood pressure of 56 in the emergency room. Secondary to left- sided pain. Groundglass appearance on CT scan but no signs of heart failure or COVID. Left-sided pain possibly related to pleurisy. Left-sided chest wall pain with increasing pain with deep inspiration consistent with pleurisy.-Workup for pulmonary embolism was negative. Improved today. Hypokalemia-stable Groundglass appearance on CT scan with possible left lower lobe pneumonia-may need repeat CT scan as an outpatient LVH-monitor as an outpatient Acute kidney injury, baseline creatinine of 1.06, admission creatinine of 1.25 resulting in 118% above baseline secondary to dehydration-stable at the time of discharge Bradycardia-monitor on telemetry Hypercholesterolemia- continue with home medication Depression-continue with home medications Low back pain-continue with home medications Hypertension-continue with home medications GERD-continue with home medications Bladder spasm-continue with home medications Admission status: Patient initially placed in observation with the symptoms as outlined above, patient not significantly improved today with pain persisting further. Medications will be adjusted today. But medically necessary treatment will span 2 midnights. Inpatient status. ? DS: Summary Hospital Course Hospital Course: Patient was initially admitted after evaluation in the emergency room for chest pain. Cardiac markers were negative, EKG was negative, CTA was completed secondary to elevated D-dimer, found to have no pulmonary embolism but does have groundglass appearance. Laboratory results showed acute kidney injury and hypokalemia. She was not improved the following day so she was kept 1 additional day with IV steroids. The IV steroids and Toradol did seem to improve her chest wall pain. This is likely then pleurisy. She did end up requiring it in an extended stay secondary to persistence of her pain and no improvement over the first midnight. Medically necessary treatment did span 2 midnights. Today she is improved, much faster than anticipated based on her pain level the previous day. At this point if she is ambulating well in the hallway she will be discharged to home in improving condition. Medications to this. Follow-up PCP this next week. Status at Discharge Overall status at discharge: patient is not back to baseline Time Spent with Patient Time attestation: Total time spent providing and/or coordinating discharge services: Time spent: greater than 30 minutes Exam Constitutional Vital Signs, click to edit/add: Last Vital Signs Temp 97.6 F 03/09/24 07:56 Pulse 72 03/09/24 10:11 Resp 18 03/09/24 07:56 BP 91/53 03/09/24 07:56 Pulse Ox 94 L 03/09/24 10:11 O2 Del Method Room Air 03/09/24 10:11 O2 Flow Rate 2 03/09/24 07:56 Documenting provider has reviewed patient's vital signs: yes Common normals: no apparent distress Chest Common normals: inspection of chest normal Respiratory Common normals: normal respiratory effort and no retractions Cardio Common normals: regular rate and regular rhythm GI Common normals: Normal to inspection, nondistended, normoactive bowel sounds present Extremity Common normals: normal to inspection DS: Data Data Completed and Pending Labs on day of discharge: Labs from last 24 hours 03/09/24 03/08/24 03/08/24 06:00 11:19 11:13 WBC 9.2 RBC 3.82 L Hgb 11.5 L Hct 35.4 L MCV 92.7 MCH 30.1 MCHC 32.5 RDW 14.0 Plt Count 179 MPV 12.0 Neut % (Auto) 81.9 H Lymph % (Auto) 13.9 L Coles % (Auto) 3.4 Eos % (Auto) 0.0 L Baso % (Auto) 0.1 L Neut # (Auto) 7.6 H Lymph # (Auto) 1.3 Coles # (Auto) 0.3 Eos # (Auto) 0.0 Baso # (Auto) 0.0 Abs Immat Gran (auto) 0.06 H Imm/Tot Granulo (auto) 0.7 H Sodium 141 Potassium 2.9 L* Chloride 103 Carbon Dioxide 21.8 Anion Gap 19.1 BUN 21.0 H Creatinine 1.74 H Est GFR ( Amer) 34 L Est GFR (Non-Af Amer) 28 L BUN/Creatinine Ratio 12.1 Glucose 164 H Lactate 1.2 Calcium 8.9 Magnesium 1.9 Total Bilirubin 1.4 H Direct Bilirubin 0.4 H AST 178 H ALT 156 H Alkaline Phosphatase 89 Troponin I High Sens 9.3 NT-Pro-B Natriuret Pep 697.0 Total Protein 6.3 L Albumin 3.2 L Globulin 3.1 Albumin/Globulin Ratio 1.0 Lipase 26.0 Urine Color Urine Clarity Urine pH Ur Specific Wagner Urine Protein Urine Glucose (UA) Urine Ketones Urine Occult Blood Urine Nitrite Urine Bilirubin Urine Urobilinogen Ur Leukocyte Esterase Urine RBC Urine WBC Ur Squamous Epith Cells Urine Crystals Urine Bacteria Urine Casts Hyaline Casts Urine Mucus Ur Culture Indicated? Specimen Source A.calcoaceticus-baumannii cmplx PCR Bacteroides fragilis Tawnya albicans (PCR) Tawnya auris (PCR) C. glabrata (PCR) C. krusei (PCR) C. parapsilosis (PCR) C. tropicalis (PCR) C. neoform/gattii (PCR) Enterobacterales (PCR) E. cloacae complex PCR Enterococc faecalis PCR Enterococc faecium PCR E. coli (PCR) H. influenzae (PCR) Influenza Type A Ag Negative Influenza Type B Ag Negative Klebsiella aerogenes (PCR) Klebsiella oxytoca PCR K. pneumoniae group (PCR) List. monocytogenes PCR N. meningitidis (PCR) Proteus spp. (copies/mL) Salmonella spp. (PCR) SARS-CoV-2 Ag (CV2AG) Negative Serratia marcescens PCR Staphylococcus sp PCR Staph aureus (PCR) mecA/C & MREJ Resist Gene mecA/C-Methicil Resis Gene mcr-1 Colistin Res Gene PCR Staph epidermidis (PCR) Staph lugdunensis (TEM-PCR) S. maltophilia (PCR) Streptococcus sp PCR Strep agalactiae (PCR) Strep pneumoniae (PCR) S. pyogenes (PCR) P. aeruginosa (PCR) Giovanny/B-Vanco Res Genes blaIMP Car res Gene PCR KPC (blaKPC) Detect PCR NDM (blaNDM) Detect PCR OXA-48 Carbapenem Resis Gene (PCR) blaVIM Car Res Gene PCR CTX-M ESBL (PCR) 03/08/24 03/08/24 11:00 09:00 WBC RBC Hgb Hct MCV MCH MCHC RDW Plt Count MPV Neut % (Auto) Lymph % (Auto) Coles % (Auto) Eos % (Auto) Baso % (Auto) Neut # (Auto) Lymph # (Auto) Coles # (Auto) Eos # (Auto) Baso # (Auto) Abs Immat Gran (auto) Imm/Tot Granulo (auto) Sodium Potassium Chloride Carbon Dioxide Anion Gap BUN Creatinine Est GFR ( Amer) Est GFR (Non-Af Amer) BUN/Creatinine Ratio Glucose Lactate Calcium Magnesium Total Bilirubin Direct Bilirubin AST ALT Alkaline Phosphatase Troponin I High Sens NT-Pro-B Natriuret Pep Total Protein Albumin Globulin Albumin/Globulin Ratio Lipase Urine Color Lt. yellow Urine Clarity Clear Urine pH 7.0 Ur Specific Wagner 1.010 Urine Protein Negative Urine Glucose (UA) Negative Urine Ketones Negative Urine Occult Blood Trace-l Urine Nitrite Negative Urine Bilirubin Negative Urine Urobilinogen 1.0 Ur Leukocyte Esterase Negative Urine RBC 0-2 Urine WBC 0-2 A Ur Squamous Epith Cells Rare Urine Crystals None seen Urine Bacteria Trace A Urine Casts Seen A Hyaline Casts Rare Urine Mucus Trace A Ur Culture Indicated? No Specimen Source Blood A.calcoaceticus-baumannii cmplx PCR Not detected Bacteroides fragilis Not detected Tawnya albicans (PCR) Not detected Tawnya auris (PCR) Not detected C. glabrata (PCR) Not detected C. krusei (PCR) Not detected C. parapsilosis (PCR) Not detected C. tropicalis (PCR) Not detected C. neoform/gattii (PCR) Not detected Enterobacterales (PCR) Not detected E. cloacae complex PCR Not detected Enterococc faecalis PCR Not detected Enterococc faecium PCR Not detected E. coli (PCR) Not detected H. influenzae (PCR) Not detected Influenza Type A Ag Influenza Type B Ag Klebsiella aerogenes (PCR) Not detected Klebsiella oxytoca PCR Not detected K. pneumoniae group (PCR) Not detected List. monocytogenes PCR Not detected N. meningitidis (PCR) Not detected Proteus spp. (copies/mL) Not detected Salmonella spp. (PCR) Not detected SARS-CoV-2 Ag (CV2AG) Serratia marcescens PCR Not detected Staphylococcus sp PCR Not detected Staph aureus (PCR) Not detected mecA/C & MREJ Resist Gene Not applicable mecA/C-Methicil Resis Gene Not applicable mcr-1 Colistin Res Gene PCR Not applicable Staph epidermidis (PCR) Not detected Staph lugdunensis (TEM-PCR) Not detected S. maltophilia (PCR) Not detected Streptococcus sp PCR Not detected Strep agalactiae (PCR) Not detected Strep pneumoniae (PCR) Not detected S. pyogenes (PCR) Not detected P. aeruginosa (PCR) Not detected Giovanny/B-Vanco Res Genes Not applicable blaIMP Car res Gene PCR Not applicable KPC (blaKPC) Detect PCR Not applicable NDM (blaNDM) Detect PCR Not applicable OXA-48 Carbapenem Resis Gene (PCR) Not applicable blaVIM Car Res Gene PCR Not applicable CTX-M ESBL (PCR) Not applicable Preliminary micro results at discharge 03/08/24 09:00 Blood Culture Result 2 - Preliminary Blood Discharge Plan Discharge Disposition: Home, Self-Care Condition: Fair Discharge Medications: New prednisone 20 mg tablet 60 mg PO DAILY 4 Days Qty: 12 0RF cefdinir 300 mg capsule 600 mg PO DAILY Qty: 20 0RF Continued gabapentin 100 mg capsule 100 mg PO BID clopidogrel [Plavix] 75 mg PO DAILY atorvastatin 40 mg tablet 40 mg PO DAILY metoprolol tartrate 25 mg tablet 12.5 mg PO DAILY losartan 50 mg tablet 50 mg PO DAILY escitalopram oxalate [Lexapro] 10 mg tablet 10 mg PO DAILY isosorbide mononitrate 30 mg tablet extended release 24 hr 30 mg PO DAILY oxybutynin chloride 15 mg tablet extended release 24hr 15 mg PO DAILY hydrochlorothiazide 25 mg tablet 25 mg PO QAM budesonide-formoterol [Symbicort] 160-4.5 mcg/actuation HFA aerosol inhaler 2 puff INHALATION Q12H omeprazole 40 mg capsule,delayed release(DR/EC) 40 mg PO .ACB Activity: increase activity as tolerated Diet: advance to your usual diet Print Language: Mauritian Patient Instructions: Prednisone (By mouth), Cefdinir (By mouth), Pleurisy (DC) Forms: Portal Instructions Follow Up Appointments: Call Dr. Crooks's office tomorrow to make follow up for within the week #
== END 2024-03-09 15:56 | disposition home or self-care (01) ==
LOC: ER 08:43 → MS 10:02
PROVIDERS: Internal Medicine; Admitting Provider Family Medicine; Emergency Provider Emergency Medicine; PCP Internal Medicine; Visit Provider Family Medicine
DX: R09.1 Pleurisy (principal); I95.9 Hypotension, unspecified; R00.0 Tachycardia, unspecified; R06.03 Acute respiratory distress; E87.6 Hypokalemia; I51.7 Cardiomegaly; N17.9 Acute kidney failure, unspecified; R00.1 Bradycardia, unspecified; E78.00 Pure hypercholesterolemia, unspecified; F32.A Depression, unspecified; M54.50 Low back pain, unspecified; I10 Essential (primary) hypertension; K21.9 Gastro-esophageal reflux disease without esophagitis; N32.89 Other specified disorders of bladder; M47.816 Spondylosis without myelopathy or radiculopathy, lumbar region; R91.8 Other nonspecific abnormal finding of lung field; Z20.822 Contact with and (suspected) exposure to COVID-19; G47.30 Sleep apnea, unspecified; I48.91 Unspecified atrial fibrillation; Z79.01 Long term (current) use of anticoagulants
CPT/HCPCS: 36415; 71045; 71275; 74176; 80048; 80076; 81001; 83605; 83690; 83735; 83880; 84484; 85025; 85378; 87040; 87150; 87804; 87811; 93005; 94640; 94667; 94668; 94761; 96361; 96365; 96366; 96367; 96375; 96376; 97162; 99285; G0378; J0696; J1100; J1885; J2270; J2405; J3480; Q9967

== ENCOUNTER 2024-05-08 09:21 | Outpatient (OUT) | payer MEDICARE, BC, SELFPAY ==
--- NOTE | 2024-05-08 09:26 | CT_ITS ---
[address] [address] Patient Name: GIOVANNA BAUM MRN: [id number] date: 1940 Sex: F Assigned Patient Location: CT Current Patient Location: CT Accession/Order Number: [id number] Exam Date: 05/08/2024 09:30 Report Date: 05/08/2024 13:05 At the request of: KENTON MAURICIO Procedure: CT chest wo con EXAMINATION: CT chest wo con, 05/08/2024 9:30 AM EST HISTORY: Ground Glass Opacity Present On Imaging Of Lung COMPARISON: 09/29/2022 TECHNIQUE: CT scan of the chest was performed without IV contrast. CT dose reduction technique was used, including Automated Exposure Control. FINDINGS: No supraclavicular adenopathy. Thyroid gland is normal. No axillary adenopathy. Calcified hilar and mediastinal nodes from prior granulomatous disease. Heart size is normal. Mild coronary artery calcifications. No acute abnormality of the visualized portions of the upper abdomen. Mild bilateral apical lung scarring. Unchanged pulmonary lung nodules. Examples include: Pulmonary nodule of the right upper lobe measuring 5 mm (3/17). Pulmonary nodule of the right upper lobe measuring 5 mm (3/25). Pulmonary nodule of the right upper lobe measuring 7 mm (3/29), unchanged. Previously seen groundglass opacity from the 03/08/2024 examination has resolved. Mild patchy atelectasis at the right lung base. Mild to moderate degeneration of the thoracic spine disc spaces. Vertebral body height is preserved. No acute osseous abnormality. CT/CT chest wo con IMPRESSION: 1. Previously seen groundglass opacity from the 03/08/2024 examination has resolved. 2. Unchanged pulmonary lung nodules. The largest nodule at the right upper lobe measuring 7 mm. Follow-up CT of the chest could be obtained in 6 months. 3. No acute abnormality of the visualized portions of the upper abdomen. 4. No acute osseous abnormality. Electronically authenticated by: WADE ALEXIS Date: 05/08/2024 13:05
[2024-05-08 10:35] LABS: Basophils Percent Auto 0.1 % (0.2-2.0); Eosinophils Percent Auto 0.2 % (0.9-7.0); Immature Granulocytes Abs Auto 0.05 10^3/uL (0.00-0.03); Immature Granulocytes Pct Auto 0.4 % (0.0-0.5); Lymphocytes Absolute Auto 1.8 10^3/uL (1.2-3.8); Lymphocytes Percent Auto 14.1 % (20.5-60.0); Mean Corpuscular HGB Conc 33.3 g/dL (29.9-35.2); Mean Corpuscular Hemoglobin 30.2 pg (26.7-34.0); Mean Corpuscular Volume 90.5 fL (81.0-99.0); Monocytes Absolute Auto 0.8 10^3/uL (0.3-0.8); Monocytes Percent Auto 6.5 % (1.7-12.0); Neutrophils Absolute Auto 9.9 10^3/uL (1.4-6.5); Neutrophils Percent Auto 78.7 % (43.0-75.0); Platelet Count 232 10^3/uL (150-450); Red Blood Count 4.31 10^6/uL (4.20-5.40); White Blood Count 12.6 10^3/uL (4.0-11.0)
[2024-05-08 10:53] LABS: Alanine Aminotransferase 17 U/L (14-59); Albumin Globulin Ratio 1.2; Albumin Level 3.7 g/dL (3.4-5.0); Alkaline Phosphatase 69 U/L (46-116); Anion Gap 11.1; Aspartate Amino Transferase 16 U/L (15-37); BUN Creatinine Ratio 20.2; Bilirubin Total 0.6 mg/dL (0.2-1.0); Calcium 9.9 mg/dL (8.5-10.1); Carbon Dioxide 29.7 mmol/L (21.0-32.0); Chloride 104 mmol/L (98-107); Estimated GFR (African America 50 (>=60 mL/min/1.73m^2); Estimated GFR (Non-African Ame 42 (>=60 mL/min/1.73m^2); Globulin 3.1 g/dL; Glucose 115 mg/dL (74-106); Potassium 3.8 mmol/L (3.5-5.1); Sodium 141 mmol/L (136-145); Total Protein 6.8 g/dL (6.4-8.2)
== END 2024-05-08 09:22 | disposition home or self-care (01) ==
LOC: CT 09:21
PROVIDERS: PCP Internal Medicine; Visit Provider Internal Medicine
DX: R91.8 Other nonspecific abnormal finding of lung field (principal); R74.01 Elevation of levels of liver transaminase levels; N18.9 Chronic kidney disease, unspecified
CPT/HCPCS: 36415; 71250; 80053; 85025

== ENCOUNTER 2024-08-27 08:24 | Outpatient (OUT) | payer MEDICARE, BC, SELFPAY ==
--- NOTE | 2024-08-27 09:02 | PM.CN ---
Consult Note: HPI Data of Consult Patient: known to practice within the last 3 years Requesting Physician: Kelly Lott NP Primary Care Provider: Ovi Crooks, DO Consult Narrative Reason for consult: low back and right leg pain Narrative: Rupali Richardson a pleasant 83 year old female presents for evaluation of low back and right leg pain. prior lumbar MRI consistent with multilevel degenerative changes and stenosis. Pain today 3/10 aching sharp, increasing to 10/10 with standing, walking, twisting, pulling, standing, gardening. Pain improved with forward flexion, sitting, lying down. Pt reports heaviness and weakness to RLE with activity. currently utilizing tylenol and gabapentin with mild benefit without side effects. cc:: CC: Kelly Lott NP Review of Systems ROS Status of ROS 10 or more systems reviewed and unremarkable except as noted in history and below Musculoskeletal Reports: back pain and extremity pain [facility], [facility] Medical History (Updated 08/27/24 @ 09:04 by Kelly Lott NP) Acute hypotension ?I95.9 - Hypotension, unspecified (ICD-10) Pleuritic chest pain ?R07.81 - Pleurodynia (ICD-10) Anticoagulant long-term use ?Z79.01 - custodial (current) use of anticoagulants (ICD-10) Lumbar spondylosis ?M47.816 - Spondylosis without myelopathy or radiculopathy, lumbar region (ICD-10) Numbness and tingling ?R20.0 - Anesthesia of skin (ICD-10) ?R20.2 - Paresthesia of skin (ICD-10) Osteoarthritis ?M19.90 - Unspecified osteoarthritis, unspecified site (ICD-10) Upper back pain ?M54.9 - Dorsalgia, unspecified (ICD-10) Low back pain ?M54.50 - Low back pain, unspecified (ICD-10) Acid reflux ?K21.9 - Gastro-esophageal reflux disease without esophagitis (ICD-10) Obesity ?E66.9 - Obesity, unspecified (ICD-10) Sleep apnea ?G47.30 - Sleep apnea, unspecified (ICD-10) Atrial fibrillation ?I48.91 - Unspecified atrial fibrillation (ICD-10) Surgical History 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 - Acquired absence of unspecified finger(s) (ICD-10) S/P lumbar spine operation ?Z98.890 - Other specified postprocedural states (ICD-10) S/P thoracentesis ?Z98.890 - Other specified postprocedural states (ICD-10) S/P sinus surgery ?Z98.890 - Other specified postprocedural states (ICD-10) H/O hand surgery ?Z98.890 - Other specified postprocedural states (ICD-10) H/O cardiac catheterization ?Z98.890 - Other specified postprocedural states (ICD-10) History of hysterectomy ?Z90.710 - Acquired absence of both cervix and uterus (ICD-10) History of cholecystectomy ?Z90.49 - Acquired absence of other specified parts of digestive tract (ICD-10) Hx of appendectomy ?Z90.49 - Acquired absence of other specified parts of digestive tract (ICD-10) Social History Highest level of school completed/degree received: high school graduate Little interest or pleasure in doing things: not at all Feeling down, depressed, or hopeless: not at all Meds Home Medications and Allergies Home Medications ?Medication ?Instructions ?Recorded ?Confirmed ?Type atorvastatin 40 mg tablet 40 mg PO DAILY 10/05/22 03/08/24 History escitalopram oxalate 10 mg tablet 10 mg PO DAILY 10/05/22 03/08/24 History (Lexapro) gabapentin 100 mg capsule 100 mg PO BID 10/05/22 03/08/24 History isosorbide mononitrate 30 mg 30 mg PO DAILY 10/05/22 03/08/24 History tablet,extended release 24 hr losartan 50 mg tablet 50 mg PO DAILY 10/05/22 03/08/24 History metoprolol tartrate 25 mg tablet 12.5 mg PO DAILY 10/05/22 03/08/24 History oxybutynin chloride 15 mg 15 mg PO DAILY 10/05/22 03/08/24 History tablet,extended release 24 hr clopidogrel 75 mg PO DAILY 04/12/23 03/08/24 History budesonide-formoterol HFA 160 2 puff inhalation Q12H 03/08/24 03/08/24 History mcg-4.5 mcg/actuation aerosol inhaler (Symbicort) hydrochlorothiazide 25 mg tablet 25 mg PO QAM 03/08/24 03/08/24 History omeprazole 40 mg capsule,delayed 40 mg PO .ACB 03/08/24 03/08/24 History release cefdinir 300 mg capsule 600 mg (2 x 300 mg) PO DAILY #20 03/09/24 Rx caps prednisone 20 mg tablet 60 mg (3 x 20 mg) PO DAILY 4 days 03/09/24 Rx #12 tabs Allergies Allergy/AdvReac Type Severity Reaction Status Date / Time midazolam (From Versed) Allergy Unknown Vomiting Verified 03/08/24 01:18 Exam Constitutional Documenting provider has reviewed patient's vital signs: yes Common normals: no apparent distress, oriented x3, healthy appearing, alert and well nourished General appearance: cooperative HENMT Common normals: normocephalic, hearing grossly normal bilaterally and moist oral mucous membranes Head and scalp: normocephalic Eye Common normals: PERRL Pupil: PERRL Neck & C-Spine Common normals: full ROM General: normal visual inspection Chest Common normals: inspection of chest normal Respiratory Common normals: normal respiratory effort, no retractions and no use of accessory muscles Back & Pelvis Lumbar spine/lower back: ROM limited, pain with ROM, lumbar spinal tenderness and straight leg raise positive right Sacroiliac joints: SI joint(s) abnormal Other: decreased sensation to right L4,5,S1 strength 4/5 in RLE right sij positive michelle(patricks), gaenslens, thigh thrust, compression test Neuro Common normals: oriented x3 Sensorium/orientation: alert Psych Common normals: mental status grossly normal, thought process normal, cooperative, affect normal, speech normal and activity/motor behavior normal Speech: normal speech Thought process: normal thought process Results Additional Findings Additional findings: If on a controlled substance or opioids, I have checked an [place] report on this patient and there are no aberrancies noted in the prescribing history.??If on a controlled substance or opioid a drug screen was completed and reviewed within the last year, and if there has not been a drug screen completed we ordered one today to monitor higher risk, state monitored pain medication use. As part of providing excellent, safe, comprehensive care, the following was completed at our patient's visit: 1. A medication reconciliation and review to ensure accurate knowledge of current/active medications, including asking our patients to inform us about any [id number] medications or herbal remedies/nutritional supplements/alternative remedies. 2. A review to specifically ensure our patients have had annual screening for screening for depression, screening for tobacco use, and screening for unhealthy alcohol use. For concerning screenings had a discussion with the patient, provided patient education, and recommended follow-up with primary care provider when appropriate. If patient noted with a risk of falling, they received education on strength, gait, and balance training to prevent future risk of falling. Portions of this note may have been carried over from the previous visit and updated as appropriate. Please note this office utilizes paper charting in addition to the electronic medical record. A list of current medications, vitals, and PMH is available there as the clinical staff outside of myself do not have access to [employer] charting during the clinic day operations. As part of providing quality comprehensive care the current medications, vitals, and PMH were reviewed in the paper chart. Assessment and Plan Assessment and Plan (1) Lumbar stenosis with neurogenic claudication: Assessment and Plan: The patient has had over 3 months of moderate to severe low back and right leg pain with functional impairment and inadequate response to conservative care including NSAIDS (unless there are contraindication such as concurrent blood thinners), multiple oral or topical pain medications, and home exercise program/physical therapy.? Patient has completed >6 weeks of guided home exercise program and/or formal physical therapy program without relief of their symptoms.? I have reviewed the imaging of the lumbar spine and no red flags were identified.? The Oswestry Disability Index was completed, and the patient scored a 24%.? The patient noted the following:?? moderate to severe pain impacting ADLs, sleep, social life, travel We discussed the risks and benefits of the procedure with the patient, and we are NOT planning on using sedation as outlined in the guidelines from Medicare unless there is a documented reason that sedation would be strongly recommended.?? ?The procedure will be completed with fluoroscopic guidance.? (2) Sacroiliitis: Plan proceed with right L4-5 L5-S1 TFESI under fluoroscopy for lumbar stenosis with NC. continue HEP as tolerated. continue current medications. f/u after injection, consider right SIJ injection if right SIJ pain persists.
== END 2024-08-27 08:25 | disposition home or self-care (01) ==
LOC: PM 08:24
PROVIDERS: PCP Internal Medicine; Visit Provider Nurse Practitioner
DX: M48.062 Spinal stenosis, lumbar region with neurogenic claudication (principal); M46.1 Sacroiliitis, not elsewhere classified
CPT/HCPCS: G0463

== ENCOUNTER 2024-09-03 08:34 | Outpatient (OUT) | payer MEDICARE, BC, SELFPAY ==
[2024-09-03 08:59] LABS: Basophils Percent Auto 0.1 % (0.2-2.0); Eosinophils Percent Auto 0.1 % (0.9-7.0); Hematocrit 37.6 % (36.0-48.0); Hemoglobin 12.8 g/dL (12.0-16.0); Immature Granulocytes Abs Auto 0.04 10^3/uL (0.00-0.03); Immature Granulocytes Pct Auto 0.4 % (0.0-0.5); Lymphocytes Absolute Auto 1.3 10^3/uL (1.2-3.8); Lymphocytes Percent Auto 11.6 % (20.5-60.0); Mean Corpuscular Hemoglobin 30.2 pg (26.7-34.0); Mean Corpuscular Volume 88.7 fL (81.0-99.0); Mean Platelet Volume 11.8 fL (9.5-13.5); Monocytes Absolute Auto 0.4 10^3/uL (0.3-0.8); Monocytes Percent Auto 3.8 % (1.7-12.0); Neutrophils Absolute Auto 9.1 10^3/uL (1.4-6.5); Platelet Count 213 10^3/uL (150-450); Red Blood Count 4.24 10^6/uL (4.20-5.40); Red Cell Distribution Width 13.2 % (11.0-15.0); White Blood Count 10.8 10^3/uL (4.0-11.0)
[2024-09-03 09:46] LABS: Alanine Aminotransferase 21 U/L (14-59); Albumin Globulin Ratio 1.1; Albumin Level 3.7 g/dL (3.4-5.0); Alkaline Phosphatase 75 U/L (46-116); Anion Gap 7.2; Aspartate Amino Transferase 13 U/L (15-37); BUN Creatinine Ratio 15.2; Bilirubin Total 0.7 mg/dL (0.2-1.0); Calcium 10.6 mg/dL (8.5-10.1); Carbon Dioxide 32.4 mmol/L (21.0-32.0); Chloride 103 mmol/L (98-107); Chol HDL Ratio 1.8; Cholesterol 129 mg/dL (<=200); Estimated GFR (African America 47 (>=60 mL/min/1.73m^2); Estimated GFR (Non-African Ame 39 (>=60 mL/min/1.73m^2); Globulin 3.3 g/dL; Glucose 149 mg/dL (74-106); HDL Cholesterol 73 mg/dL (40-60); Potassium 3.6 mmol/L (3.5-5.1); Sodium 139 mmol/L (136-145); Triglycerides 72 mg/dL (<=150); VLDL CHOLESTEROL 14.4 mg/dL
== END 2024-09-03 08:35 | disposition home or self-care (01) ==
LOC: LAB 08:36
PROVIDERS: PCP Internal Medicine; Visit Provider Internal Medicine
DX: D64.9 Anemia, unspecified (principal); I25.10 Atherosclerotic heart disease of native coronary artery without angina pectoris; I10 Essential (primary) hypertension; E78.00 Pure hypercholesterolemia, unspecified
CPT/HCPCS: 36415; 80053; 80061; 85025

== ENCOUNTER 2024-09-08 07:45 | Day surgery (SDC) | payer MEDICARE, BC, SELFPAY ==
--- OUTSIDE RECORDS SUMMARY | 2024-09-08 08:06 | XMS_ITS | CCD ---
Author Organization [facility] Care Team Providers Care Film Examiner Name Role Phone Zahler, Quinn Unavailable Unavailable Zahler, Quinn Unavailable Unavailable Zahler, Quinn Unavailable Unavailable OVI CROOKS~[phone] UNKNOWN Unavailable Unavailable Zahler, Quinn Unavailable Unavailable Zahler, Quinn Unavailable Unavailable Erliner, Quinn Unavailable Unavailable OVI CROOKS~[id number] UNKNOWN Unavailable Unavailable MD Brina Morrissey Attending [...] Attending Unavailable BALL, DR DIOR Consulting Unavailable HANG, DR DIOR Primary Care Unavailable CHRISTIN, DR GÓMEZ Mclean Consulting Unavailable HANG, DR DIOR Admitting Unavailable BALL, DR DIOR Primary Care Unavailable BALL, DR DIOR Attending Unavailable BALL, DR DIOR Consulting Unavailable WEST, DR GÓMEZ Mclean Consulting Unavailable HANG, DR DIOR Primary Care Unavailable JESSICA ., DR ELIZABETH Cerna Attending Unavailable JESSICA ., DR ELIZABETH Cerna Consulting Unavailable JESSICA ., DR ELIZABETH Cerna Admitting Unavailable HANG, DR DIOR Primary Care Unavailable JESSICA ., DR ELIZABETH Cerna Attending Unavailable JESSICA ., DR ELIZABETH Cerna Admitting Unavailable LAKSHMIPATHY ., NARMARIA C Admitting Elodia vailable LAKSHMIPATHY ., RUBEN Attending Elodia vailable LAKSHMIPATHY ., NARENDDYLAN Consulting Elodia vailable HANG, DR DIOR Primary Care Unavailable CRISTOBAL ., [...] MEDEIROS Attending Unavailable JEMAL MEDEIROS Attending Unavailable Ovi Crooks MD Primary Care Provider Madhavi Arriola DO Unavailable TORRES ROSA Attending Unavailable TORRES ROSA Attending Unavailable BRIGITTE YANG Attending Unavailable BRIGITTE YANG Attending Unavailable Allergies Allergy Classification Reported Allergen(s) Allergy Type Date of Onset Reaction(s) Facility (1 source) Midazolam Drug Allergy 7 [facility] Repository (6 sources) Midazolam; Translations: [MIDAZOLAM] Drug Allergy 3 Nausea And Vomiting [facility] Repository Medications Current Medications Medication Drug Class(es) Dates Sig (Normalized) Sig (Original) acetaminophen 325 mg / HYDROcodone bitartrate 5 mg oral tablet (10 sources) Opioid Agonist Start: 01-19-2023 take 1 tablet by mouth twice daily as needed for pain HYDROcodone-Acetam inophen 5-325 MG 1 tablet Orally bid as needed for pain for 7 days Dec, Active atorvastatin 40 mg oral tablet (20 sources) HMG-CoA Reductase Inhibitor Start: 05-08-2023 take 1 tablet by mouth once daily Atorvastatin 40 mg tablet Active 1 TAB PO Daily July 03, 2023 1:00am FreeTextSi tablet Orally Once a day; Note: Source Status: Taking; Provider: Hang Dior ( ) take 1 tablet by jose th every twenty-four hours Atorvastatin Calcium 40 MG 1 tablet Oral ly Once a day Active 120 actuat budesonide 0.16 mg/actuat / formoterol fumarate 0.0045 mg/actuat metered dose inhaler (20 sources) Corticosteroid, beta2-Adrenergic Agonist Start: 07-19-2023 take [...] Jun, Active clopidogrel 75 mg oral tablet (14 sources) P2Y12 Platelet Inhibitor Start: 04-17-2023 End: 01-16-2025 take 1 tablet by mouth once daily Clopidogrel 75 mg tablet Active 75 MG PO Daily July 03, 2023 1:00am FreeTextSi tablet Orally Once a day; Note: Source Status: Start; Provider: Hang Quinn CPAP Machine (18 sources) CPAP Machine Act susu escitalopram 10 mg oral tablet (20 sources) Serotonin Reuptake Inhibitor Start: 07-16-2023 End: 12-10-2023 Escitalopram Oxalate 10 mg tablet Active 0 .ROUTE .COMPLEX December 10, 2023 6:54am TAKE 1 TABLET EVERY DAY Start: 07-03-2023 End: 07-16-2023 take 1 tablet by mouth once daily Escitalopram Oxalate 10 mg tablet Discontinued 10 MG PO Daily July 03, 2023 1:00am July 16, 2023 5:05pm FreeTextSig: TAKE 1 TABLET EVERY DAY; Note: Source Status: Taking; Provider: Hang Dior ( ) gabapentin (20 sources) Anti-epileptic Agent Start: 05-11-2024 Gabapenti n 100 mg capsule Active 0 .ROUTE .COMPLEX May 11, 2024 8:27pm TAKE 1 CAPSULE AT BEDTIME Start: 07-03-2023 End: 05-11-2024 take 1 capsule by mouth at bedtime Gabapentin 100 mg capsule Discontinued 100 MG PO July 03, 2023 1:00am May 11, 2024 8:27pm FreeTextSig: TAKE 1 CAPSULE AT BEDTIME; Note: Source Status: Start; Refills: 3; Qty: 90 Capsule; Provider: Hang Dior ( ) hydroCHLOROthiazide (20 sources) Thiazide Diuretic Start: 05-11-2024 Hydrochlorot hiazide 25 mg tablet Active 0 .ROUTE .COMPLEX May 11, 2024 8:27pm TAKE 1 TABLET EVERY DAY Start: 08-28-2023 End: 05-11-2024 Hydrochlorothiazide 25 mg ta blet Discontinued 0 .ROUTE .COMPLEX August 28, 2023 4:54pm May 11, 2024 8:27pm TAKE 1 TABLET EVERY DAY Start: 08-28-2023 Hydrochlorothi azide 25 mg tablet Active 0 .ROUTE .COMPLEX August 28, 2023 3:54pm TAKE 1 TABLET EVERY DAY Start: 08-28-2023 Hydrochlorothi azide Active 0 .ROUTE .COMPLEX August 28, 2023 4:54pm TAKE 1 TABLET EVERY DAY Start: 07-03-2023 End: 08-28-2023 take 1 tablet by mouth once daily Hydrochlorothiazide 25 mg tablet Discontinued 25 MG PO Daily July 03, 2023 1:00am August 28, 2023 4:54pm FreeTextSig: TAKE 1 TABLET EVERY DAY; Note: Source Status: Taking; Provider: Hang Dior ( ) Hydrochlorothiazide-25 mg 25 mg (2 sources) take 1 tablet by mouth once daily Hydrochlorothiazide-25 mg 25 mg 1 tablet Orally Once a day Active 24 hr isosorbide mononitrate 30 mg extended release oral tablet (20 sources) Nitrate Vasodilator Start : 05-08 take 1 tablet by mouth once daily in the morning Isosorbide Mononitrate 30 mg tablet extended release 24 hr Active 1 TAB PO Daily July 03, 2023 1:00am FreeTextSi tablet in the morning Orally Once a day; Note: Source Status: Taking; Provider: Hang Dior ( ) take 1 tablet by jose th every twenty-four hours Isosorbide Mononitrate ER 30 MG 1 tablet in the morning Orally Once a day Active losartan potassium 50 mg oral tablet (20 sources) Angiotensin 2 Receptor Gustavo Start: 07-03-2023 take 1 tablet by mouth once daily Losartan 50 mg tablet Active 50 MG PO Daily July 03, 2023 1:00am FreeTextSig: TAKE 1 TABLET EVERY DAY; Note: Source Status: Taking; Provider: Hang Dior ( ) 24 hr metoprolol succinate 25 mg extended release oral tablet (20 sources) beta-Adrenergic Gustavo Start: 06-19-2023 take 1 tablet by mouth once daily Metoprolol Succinate 25 mg tablet extended release 24 hr Active 25 MG PO Daily July 03, 2023 1:00am FreeTextSi tablet Orally Once a day; Note: Source Status: Taking; Provider: Hang Dior ( ) take 1 tablet by jose th every twenty-four hours Metoprolol Succinate ER 25 MG 1 tablet Orally Once a day Active omeprazole 40 mg delayed release oral capsule (20 sources) Proton Pump Inhibitor Start: 03-22-2024 Omeprazole 40 mg capsule,delayed release(DR/EC) Active 0 .ROUTE .COMPLEX March 22, 2024 12:46pm TAKE 1 CAPSULE ONE TIME DAILY 30 MINUTES BEFORE MORNING MEAL Start: 07-03-2023 End: 03-22-2024 take 1 capsule by mouth once daily Omeprazole 40 mg capsule,delayed release(DR/EC) Discontinued 40 MG PO Daily July 03, 2023 1:00am March 22, 2024 12:46pm FreeTextSi capsule 30 minutes before morning meal Orally Once a day; Note: Source Status: Taking; Provider: Hang Quinn Start: 07-17-2022 take 1 capsule by mo [facility] once daily Omeprazole 40 MG 1 capsule 30 minutes before morning meal Orally Once a day Jun, Active 24 hr oxybutynin chloride 15 mg extended release oral tablet (20 sources) Cholinergic Muscarinic Antagonist Start: 12-10-2023 Oxybutynin Chloride 15 mg tablet extended release 24hr Active 0 .ROUTE .COMPLEX 90 December 10, 2023 6:54am TAKE 1 TABLET EVERY DAY Start: 09-28-2023 oxybutynin XL (Ditropan-XL) 15 MG 24 hr tablet 09/28/2023 Active Start: 07-03-2023 End: 12-10-2023 take 1 tablet by mouth once daily Oxybutynin Chloride 15 mg tablet extended release 24hr Discontinued 1 TAB PO Daily July 03, 2023 1:00am December 10, 2023 6:54am FreeTextSig: TAKE 1 TABLET EVERY DAY; Note: Source Status: Taking; Refills: 3; Qty: 90 Tablet; Provider: Hang Dior ( ) oxyBUTYnin Chlor luis ER [...] 1 tablet by mouth once daily Aspirin 81 mg tablet,delayed release (DR/EC) Discontinued 81 MG PO Daily July 03, 2023 1:00am July 04, 2023 10:06am FreeTextSi tablet Orally Once a day; Note: Source Status: Taking; Provider: Hang Dior ( ) take 1 tablet by jose th every twenty-four hours Aspirin Adult Low Dose 81 MG 1 tablet Orally Once a day Active baclofen 10 mg oral tablet (7 sources) gamma-Aminobutyric Acid-ergic Agonist take 1 tablet by mouth every twelve hours Baclofen 10 MG 1 tablet as needed Orally Twice a day Not-Taking famotidine 20 mg oral tablet (10 sources) Histamine-2 Receptor Antagonist Start: 024 End: 025 take 1 tablet by mouth once daily at bedtime Famotidine 20 mg tablet Discontinued 20 MG PO Daily at bedtime February 25, 2024 12:00am August 25, 2024 10:00am fluticasone propionate 0.05 mg/actuat metered dose nasal [...] tablet (7 sources) Proton Pump Inhibitor Start: 013 take 1 tablet by mouth every twenty-four hours Protonix 40 mg 1 tablet Orally daily Sep, Not-Taking raNITIdine 300 mg oral tablet (7 sources) Histamine-2 Receptor Antagonist Start: 015 take 1 tablet by mouth once daily Zantac 300 MG 1 tablet Orally daily Oct, Not-Taking triamcinolone acetonide 40 mg/ml injectable suspension (20 sources) Corticosteroid Start: 022 Kenalog-40 Dec, 20 mg Tylenol Arthritis Pain 650 MG (7 sources) Tylenol Arthriti s Pain 650 MG as directed Orally Not-Taking Tylenol Arthriti s Pain 650 MG as directed Orally Active Problems Active Problems Problem Classification Problem Date Documented Date Episodic/Chronic Acute and unspecified renal failure (1 source) Acute kidney failure, unspecified; Translations: [Acute kidney failure, unspecified] 03-17-2024 Episodic Acute bronchitis (1 source) Acute bronchitis; Translations: [Acute bronchitis due to other specified organisms] Episodic Acute cerebrovascular disease (20 sources) Cerebral infarction; Translations: [Cerebral infarction, unspecified] Onset: 10-08-2023 Chronic Asthma (20 sources) Uncomplicated mild persistent asthma; Translations: [Mild persistent asthma, uncomplicated] Onset: 08-05-2015 Chronic Cardiac dysrhythmias (7 sources) Paroxysmal atrial fibrillation; Translations: [Paroxysmal atrial fibrillation] Onset: 07-26-2022 08-09-2023 Chronic Chronic kidney disease (7 sources) Chronic kidney disease; Translations: [Chronic kidney disease, unspecified] 08-02-2023 Chronic Coronary atherosclerosis and other heart disease (20 sources) Coronary arteriosclerosis; Translations: [Atherosclerotic heart disease of [place] coronary artery without angina pectoris] Onset: 06-07-2022 Chronic Deficiency and other anemia (6 sources) Anemia; Translations: [Anemia, unspecified] 08-02-2023 Episodic [...] Onset: 08-05-2015 Chronic Miscellaneous mental health disorders (5 sources) Primary insomnia; Translations: [Primary insomnia] Onset: 10-08-2023 [...] current use of drug therapy; Translations: [Other lobsterman (current) drug therapy] Episodic Other and ill-defined cerebrovascular disease (13 sources) Cerebral atherosclerosis; Translations: [Cerebral atherosclerosis] Onset: 08-09-2023 07-18-2023 Chronic Other and ill-defined cerebrovascular disease (7 sources) Cerebral atherosclerosis; Translations: [Cerebral atherosclerosis] Chronic [...] Episodic Other diseases of bladder and urethra (19 sources) Overactive bladder; Translations: [Overactive bladder] Onset: 07-26-2022 08-09-2023 Chronic Other diseases of bladder and urethra (1 source) Overactive bladder Chronic Other ear and sense organ disorders (1 source) Impacted cerumen; Translations: [Impacted cerumen, right ear] Episodic Other injuries and conditions due to external causes (1 source) History of fall; Translations: [History of falling] Episodic Other liver diseases (8 sources) Elevated liver enzymes level; Translations: [High liver transaminase level] 03-15-2024 Episodic Other lower respiratory disease (19 sources) Cough; Translations: [Cough] Episodic Other lower respiratory disease (20 sources) Multiple nodules of lung; Translations: [Other nonspecific abnormal finding of lung field] Onset: 07-26-2022 12-03-2023 Episodic Comment on above: CT: 10cm RUL - 3No further imaging due to patient decision CT: 10cm RUL - 3, CT: 5mm (2), 7mm RUL - 04/2024No further imaging due to patient decision Other lower respiratory disease (14 sources) Nodule of lung; Translations: [Solitary pulmonary nodule] Episodic Other lower respiratory disease (2 sources) Solitary pulmonary nodule Episodic Other lower respiratory disease (13 sources) Other nonspecific abnormal finding of lung field; Translations: [Ground glass opacity present on imaging of lung] Onset: 07-26-2022 Episodic Other lower respiratory disease (7 sources) Hypoxia; Translations: [Hypoxemia] Onset: 10-08-2023 10-08-2023 Episodic Other lower respiratory disease (4 sources) Pleuritic pain; Translations: [Pleurodynia] 03-15-2024 Episodic Other lower respiratory disease (2 sources) Pleurodynia; Translations: [Painful respiration] 03-17-2024 Episodic Other nervous system disorders (20 sources) Carpal tunnel syndrome of right wrist; Translations: [Carpal tunnel syndrome, right upper limb] 07-03-2023 Chronic Other nervous system disorders (20 sources) Carpal tunnel syndrome of left wrist; Translations: [Carpal tunnel syndrome, left upper limb] 07-03-2023 Chronic Other nervous system disorders (9 sources) Carpal tunnel syndrome, right upper limb; Translations: [Carpal tunnel syndrome] Onset: 12-21-2021 Resolved: 12-21-2021 Chronic Other nervous system disorders (9 sources) Carpal tunnel syndrome, left upper limb; [...] Chronic Other nutritional; endocrine; and metabolic disorders (10 sources) Obesity; Translations: [Obesity, unspecified] Onset: 01-05-2023 Resolved: 08-09-2023 08-09-2023 Chronic Other nutritional; endocrine; and metabolic disorders (1 source) Simple obesity ; Translations: [Other obesity due to excess calories] Onset: 08-05-2015 Chronic Other nutritional; endocrine; and metabolic disorders (2 sources) Body mass index 30+ - obesity; Translations: [Body mass index 31.0-31.9, adult] Onset: 08-05-2015 Chronic Other nutritional; endocrine; and metabolic disorders (4 sources) Obesity, unspecified; Translations: [Obesity, unspecified] 02-25-2024 Chronic Other screening for suspected conditions (not mental disorders or infectious disease) (15 sources) Encounter for screening mammogram for malignant neoplasm of breast; Translations: [Encounter for screening for diseases of the blood and blood-forming organs and certain disorders involving the immune mechanism] Onset: 03-16-2017 Resolved: 08-09-2023 Episodic Other upper respiratory disease (6 sources) Hoarse; Translations: [Dysphonia] 07-20-2023 Episodic Paralysis (5 sources) Right hemiparesis; Translations: [Hemiplegia, unspecified affecting right dominant side] Onset: 10-08-2023 10-08-2023 Chronic Georgina-; endo-; and myocarditis; cardiomyopathy (except that caused by tuberculosis or sexually transmitted disease) (1 source) Acute pericarditis; Translations: [Acute pericarditis, unspecified] Episodic Pneumonia (except that caused by tuberculosis or sexually transmitted disease) (6 sources) Pneumonia; Translations: [Pneumonia, unspecified organism] 03-15-2024 Episodic Pulmonary heart disease (19 sources) Secondary pulmonary hypertension; Translations: [Other secondary pulmonary hypertension] Onset: 07-26-2022 08-09-2023 Chronic Residual codes; unclassified (20 sources) Obstructive sleep apnea syndrome; Translations: [Obstructive sleep apnea (adult) (pediatric)] Onset: 10-06-2016 07-18-2023 Chronic Residual codes; unclassified (9 sources) Obstructive sleep apnea (adult) (pediatric); Translations: [Obstructive sleep apnea (adult)(pediatric)] Chronic Residual codes; unclassified (5 sources) Hypersomnia; Translations: [Hypersomnia, unspecified] Onset: 10-08-2023 10-08-2023 Chronic Residual codes; unclassified (1 source) Postmenopausal state; Translations: [Asymptomatic menopausal state] Episodic Residual codes; unclassified (7 sources) Sleep deprivation; Translations: [Sleep deprivation] Onset: 10-08-2023 [...] 04-28-2022 Episodic Other aftercare (1 source) Other lobsterman (current) drug therapy; Translations: [OTH HALF-WAY CURRENT DRUG THERAPY] Onset: 09-20-2021 Episodic Other aftercare (5 sources) Long-term current use of inhaled steroid; Translations: [terminal manager (current) use of 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] Onset: 07-26-2022 08-09-2023 Episodic Other gastrointestinal disorders (20 sources) Dysphagia; Translations: [Dysphagia] Onset: 08-15-2023 08-15-2023 Episodic Other infections; including parasitic (5 sources) Personal history of other infectious and parasitic diseases; Translations: [History of COVID-19] Onset: 07-26-2022 Resolved: 08-09-2023 08-09-2023 Episodic Other lower respiratory disease (9 sources) Chronic cough; Translations: [Chronic cough] Onset: 07-19-2022 Episodic Other lower respiratory disease (5 sources) Other forms of dyspnea; Translations: [OTHER FORMS OF DYSPNEA] Onset: 02-27-2022 Episodic Other lower respiratory disease (6 sources) Dyspnea; Translations: [Other forms of dyspnea] Onset: 07-26-2022 Resolved: 08-09-2023 08-09-2023 Episodic Other non-traumatic joint disorders (1 source) [...] conditions (not mental disorders or infectious disease) (6 sources) Abnormal findings on diagnostic imaging of other specified body structures; Translations: [Imaging of thorax abnormal] Onset: 07-22-2022 Resolved: 08-09-2023 08-09-2023 Chronic Residual codes; unclassified (1 source) Requires influenza [...] Range Facility Basophils Auto (Bld) [#/Vol] on 03-09-2024 Basophils (Bld) [#/Vol] Automated basophil count 0.0-0.1 [facility] Basophils/100 WBC Auto (Bld) on 03-09-2024 Basophils/100 WBC (Bld) Automated basophil % Low 0.2-2.0 [facility] Eosinophils/100 WBC Auto (Bl d)on 03-09-2024 Eosinophils/100 WBC (Bld) Automated eosinophil % Low 0.9-7.0 [facility] Erythrocyte distribution wid th Auto (RBC) [Ratio]on 03-09-2024 Erythrocyte distribution width (RBC) [Ratio] Erythrocyte distribution width [Ratio] by Automated count 11.0-15.0 [facility] Estimated glomerular filtrat ion rate (GFR) non- Americanon 03-09-2024 GFR/1.73 sq M.predicted among non-blacks MDRD (S/P/Bld) [Vol rate/Area] Estimated glomerular filtration rate (GFR) non- Low >=60 mL/min/1.73m 2 [facility] Hematocrit Auto (Bld) [Volum e fraction]on 03-09-2024 Hematocrit (Bld) [Volume fraction] Hematocrit [Volume Fraction] of Blood by Automated count Low 36.0-48.0 [facility] Hemoglobin [Mass/volume] in Bloodon 03-09-2024 Hemoglobin (Bld) [Mass/Vol] Hemoglobin [Mass/volume] in Blood Low 12.0-16.0 [facility] Laboratory - Chemistry and C hemistry - challengeon 03-09-2024 Calcium [Mass/Vol] 8.9 mg/dL 8.5-10.1 [facility] Chloride [Moles/Vol] 103 mmol/L 98-107 [facility] CO2 [Moles/Vol] 21.8 mmol/L 21.0-32.0 [facility] Creatinine [Mass/Vol] 1.74 mg/dL High 0.55-1.02 [facility] GFR/1.73 sq M.predicted MDRD (S/P/Bld) [Vol rate/Area] 34 mL/min/{1.73_m2} Low >=60 mL/min/1.73m 2 [facility] Glucose [Mass/Vol] 164 mg/dL High 74-106 [facility] Potassium [Moles/Vol] 2.9 mmol/L Critically low 3.5-5.1 [facility] Comment on above: RESULTS CALLED TO KAROL VAZQUEZ RN @BY Cecile San [id number] Sodium [Moles/Vol] 141 mmol/L 136-145 [facility] Urea nitrogen [Mass/Vol] 21.0 mg/dL High 7.0-18.0 [facility] Urea nitrogen/Creatinine [Mass ratio] 12.1 mg/mg [facility] Laboratory - Hematology and Cell countson 03-09-2024 Immature granulocytes/100 WBC (Bld) 0.7 % High 0.0-0.5 [facility] Leukocytes [#/volume] correc jonnie for nucleated erythrocytes in Blood by Automated counon 03-09-2024 WBC corrected for nucl RBC Auto (Bld) [#/Vol] Leukocytes [#/volume] corrected for nucleated erythrocytes in Blood by Automated coun 4.0-11.0 [facility] Lymphocytes Auto (Bld) [#/Vo l]on 03-09-2024 Lymphocytes (Bld) [#/Vol] Lymphocytes [#/volume] in Blood by Automated count 1.2-3.8 [facility] Lymphocytes/100 WBC Auto (Bl d)on 03-09-2024 Lymphocytes/100 WBC (Bld) Lymphocytes/100 leukocytes in Blood by Automated count Low 20.5-60.0 [facility] MCH Auto (RBC) [Entitic mass ]on 03-09-2024 MCH (RBC) [Entitic mass] MCH [Entitic mass] by Automated count 26.7-34.0 [facility] MCHC Auto (RBC) [Mass/Vol]on 03-09-2024 MCHC (RBC) [Mass/Vol] MCHC [Mass/volume] by Automated count 29.9-35.2 [facility] MCV Auto (RBC) [Entitic vol] on 03-09-2024 MCV (RBC) [Entitic vol] MCV [Entitic volume] by Automated count 81.0-99.0 [facility] Monocytes Auto (Bld) [#/Vol] on 03-09-2024 Monocytes (Bld) [#/Vol] Automated blood monocyte count 0.3-0.8 [facility] Monocytes/100 WBC Auto (Bld) on 03-09-2024 Monocytes/100 WBC (Bld) Automated monocyte % 1.7-12.0 [facility] Neutrophils Auto (Bld) [#/Vo l]on 03-09-2024 Neutrophils (Bld) [#/Vol] Neutrophils [#/volume] in Blood by Automated count High 1.4-6.5 [facility] Neutrophils/100 WBC Auto (Bl d)on 03-09-2024 Neutrophils/100 WBC (Bld) Automated neutrophil % High 43.0-75.0 [facility] No Panel Informationon 03-09 Eosinophils # (Auto) 0.0 10 3/uL 0.0-0.7 [facility] Immature Granulocyte # (Auto) 0.06 10 3/uL High 0.00-0.03 [facility] Platelet mean volume Auto (B ld) [Entitic vol]on 03-09-2024 Platelet mean volume (Bld) [Entitic vol] Platelet mean volume [Entitic volume] in Blood by Automated count 9.5-13.5 [facility] Platelets Auto (Bld) [#/Vol] on 03-09-2024 Platelets (Bld) [#/Vol] Platelets [#/volume] in Blood by Automated count 150-450 [facility] RBC Auto (Bld) [#/Vol]on RBC (Bld) [#/Vol] Erythrocytes [#/volume] in Blood by Automated count Low 4.20-5.40 [facility] Serum or plasma anion gap de terminationon 03-09-2024 Anion gap [Moles/Vol] Serum or plasma an ion gap determination [facility] Basophils Auto (Bld) [#/Vol] on 03-08-2024 Basophils (Bld) [#/Vol] Automated basophil count 0.0-0.1 [facility] Basophils/100 WBC Auto (Bld) on 03-08-2024 Basophils/100 WBC (Bld) Automated basophil % 0.2-2.0 [facility] Eosinophils/100 WBC Auto (Bl d)on 03-08-2024 Eosinophils/100 WBC (Bld) Automated eosinophil % 0.9-7.0 [facility] Erythrocyte distribution wid th Auto (RBC) [Ratio]on 03-08-2024 Erythrocyte distribution width (RBC) [Ratio] Erythrocyte distribution width [Ratio] by Automated count 11.0-15.0 [facility] Estimated glomerular filtrat ion rate (GFR) non- Americanon 03-08-2024 GFR/1.73 sq M.predicted among non-blacks MDRD (S/P/Bld) [Vol rate/Area] Estimated glomerular filtration rate (GFR) non- Low >=60 mL/min/1.73m 2 [facility] Fibrin D-dimer [Presence] in Platelet poor plasma by Latex agglutinationon 03-08-2024 Fibrin D-dimer LA Ql (PPP) Fibrin D-dimer [Presence] in Platelet poor plasma by Latex agglutination Critically high <=0.59 [facility] Comment on above: RESULTS CALLED TO CHONG Villeda RN @BY Tarun Albright MLT at [id number] in D-Dimer concentration observed withthromboembolic events can be variable due to localization,size, and age of the thrombus. Therefore, a thromboembolicevent cannot be diagnosed with certainty on the basis of thereference range. D-Dimers may also be elevated for a varietyof disorders including advanced age, , coronarydisease, cancer, liver disease, infection, inflammation,hematoma, DIC, trauma, post-surgery, diabetes, thrombolyticor anticoagulant therapy, stress, and generalizedhospitalization. Globulin Calc (S) [Mass/Vol] on 03-08-2024 Globulin (S) [Mass/Vol] Serum globulin measurement by calculation (mass/volume) [facility] Hematocrit Auto (Bld) [Volum e fraction]on 03-08-2024 Hematocrit (Bld) [Volume fraction] Hematocrit [Volume Fraction] of Blood by Automated count Low 36.0-48.0 [facility] Hemoglobin [Mass/volume] in Bloodon 03-08-2024 Hemoglobin (Bld) [Mass/Vol] Hemoglobin [Mass/volume] in Blood Low 12.0-16.0 [facility] Laboratory - Chemistry and C hemistry - challengeon 03-08-2024 Albumin [Mass/Vol] 3.2 g/dL Low 3.4-5.0 [facility] ALP [Catalytic activity/Vol] 89 U/L 46-116 [facility] ALT [Catalytic activity/Vol] 156 U/L High 14-59 [facility] AST [Catalytic activity/Vol] 178 U/L High 15-37 [facility] Bilirubin [Mass/Vol] 1.4 mg/dL High 0.2-1.0 [facility] Bilirubin.direct [Mass/Vol] 0.4 mg/dL High 0.0-0.2 [facility] Lactate [Moles/Vol] 1.2 mmol/L 0.4-2.0 [facility] Lipase [Catalytic activity/Vol] 26.0 U/L 16.0-77.0 [facility] Magnesium [Mass/Vol] 1.9 mg/dL 1.8-2.4 [facility] Natriuretic peptide B (Bld) [Mass/Vol] 697.0 pg/mL <=1800.0 [facility] Protein [Mass/Vol] 6.3 g/dL Low 6.4-8.2 [facility] Bilirubin Ql (U) Negative NEGATIVE [facility] Glucose (U) [Mass/Vol] Negative NEGATIVE [facility] Ketones Ql (U) Negative NEGATIVE [facility] pH (U) 7.0 [pH] 5.0-9.0 [facility] Specific gravity (U) [Rel density] 1.010 1.005-1.025 [facility] Urobilinogen Qn (U) 1.0 {Nora'U}/dL 0.2-1.0 [facility] Calcium [Mass/Vol] 9.0 mg/dL 8.5-10.1 [facility] Chloride [Moles/Vol] 106 mmol/L 98-107 [facility] CO2 [Moles/Vol] 29.0 mmol/L 21.0-32.0 [facility] Creatinine [Mass/Vol] 1.25 mg/dL High 0.55-1.02 [facility] GFR/1.73 sq M.predicted MDRD (S/P/Bld) [Vol rate/Area] 50 mL/min/{1.73_m2} Low >=60 mL/min/1.73m 2 [facility] Glucose [Mass/Vol] 111 mg/dL High 74-106 [facility] Potassium [Moles/Vol] 3.1 mmol/L Low 3.5-5.1 [facility] Sodium [Moles/Vol] 145 mmol/L 136-145 [facility] Urea nitrogen [Mass/Vol] 18.0 mg/dL 7.0-18.0 [facility] Urea nitrogen/Creatinine [Mass ratio] 14.4 mg/mg [facility] Laboratory - Hematology and Cell countson 03-08-2024 Immature granulocytes/100 WBC (Bld) 0.3 % 0.0-0.5 [facility] Laboratory - Microbiology an d Antimicrobial susceptibilityon 03-08-2024 SARS-CoV-2 (COVID-19) RNA RADHA+probe Ql (Unsp spec) Negative NEGATIVE [facility] Comment on above: This test has not be en FDA cleared or approved, but has beenauthorized by the FDA under an Emergency Use Authorization(EUA) for use by authorized laboratories certified underIA that meet the requirements to perform moderate or highcomplexity testing. This test has been authorized only forthe detection of proteins from SARS-CoV-2, not for any otherviruses or pathogens. The emergency use of this test isauthorized for the duration of the declaration thatcircumstances exist justifying the authorization ofemergency use of in vitro diagnostic tests for detectionand/or diagnosis of Covid-19 under section 564(b)(1) of theAct, 21 U.S.C. 360bbb-3(b)(1), unless the declaration isterminated or authorization is revoked sooner. S. agalactiae Org specific cx Ql (Vag fld) Not detected NOT DETECTE [facility] Laboratory - Specimen inform ationon 03-08-2024 Appearance (U) CLEAR CLEAR [facility] Color (U) LT. YELLOW YELLOW [facility] Laboratory - Urinalysison Hyaline casts LM Ql (Urine sed) RARE [facility] Leukocyte esterase Test strip Ql (U) Negative NEGATIVE [facility] Mucus Ql (Urine sed) TRACE Abnormal NONE SEEN [facility] Nitrite Ql (U) Negative NEGATIVE [facility] Protein Ql (U) Negative NEG/TRACE [facility] Leukocytes [#/volume] correc jonnie for nucleated erythrocytes in Blood by Automated counon 03-08-2024 WBC corrected for nucl RBC Auto (Bld) [#/Vol] Leukocytes [#/volume] corrected for nucleated erythrocytes in Blood by Automated coun 4.0-11.0 [facility] Lymphocytes Auto (Bld) [#/Vo l]on 03-08-2024 Lymphocytes (Bld) [#/Vol] Lymphocytes [#/volume] in Blood by Automated count 1.2-3.8 [facility] Lymphocytes/100 WBC Auto (Bl d)on 03-08-2024 Lymphocytes/100 WBC (Bld) Lymphocytes/100 leukocytes in Blood by Automated count Low 20.5-60.0 [facility] MCH Auto (RBC) [Entitic mass ]on 03-08-2024 MCH (RBC) [Entitic mass] MCH [Entitic mass] by Automated count 26.7-34.0 [facility] MCHC Auto (RBC) [Mass/Vol]on 03-08-2024 MCHC (RBC) [Mass/Vol] MCHC [Mass/volume] by Automated count 29.9-35.2 [facility] MCV Auto (RBC) [Entitic vol] on 03-08-2024 MCV (RBC) [Entitic vol] MCV [Entitic volume] by Automated count 81.0-99.0 [facility] Monocytes Auto (Bld) [#/Vol] on 03-08-2024 Monocytes (Bld) [#/Vol] Automated blood monocyte count 0.3-0.8 [facility] Monocytes/100 WBC Auto (Bld) on 03-08-2024 Monocytes/100 WBC (Bld) Automated monocyte % 1.7-12.0 [facility] Neutrophils Auto (Bld) [#/Vo l]on 03-08-2024 Neutrophils (Bld) [#/Vol] Neutrophils [#/volume] in Blood by Automated count High 1.4-6.5 [facility] Neutrophils/100 WBC Auto (Bl d)on 03-08-2024 Neutrophils/100 WBC (Bld) Automated neutrophil % 43.0-75.0 [facility] No Panel Informationon 03-08 Troponin I High Sensitivity 9.3 pg/mL 4.0-51.3 [facility] Comment on above: CUT-OFF POINTS HAVE BEEN ESTABLISHED BASED ON THE FOURTHUNIVERSAL DEFINITION OF MYOCARDIAL INFARCTION. THE UPPERREFERENCE LIMIT (URL) OF TROPONIN, DEFINED THE 99THPERCENTILE OF cTnI DISTRIBUTION IN A REFERENCE POPULATION,HAS BEEN CONFIRMED THE DECISION THRESHOLD FOR MIDIAGNOSIS.99TH PERCENTILE = 51.4 PG/MLNOTE: HIGH-SENSITIVITY TROPONIN ASSAY IS NOT INTENDED TO BEUSED IN ISOLATION BUT SHOULD BE INTERPRETED IN CONJUNCTIONWITH OTHER DIAGNOSTIC AND CLINICAL INFORMATION. Bedside Influenza Type A Antigen Negative [facility] Comment on above: Negative for Flu A p rotein antigen. Infection due to Flu Acannot be ruled out. Flu A antigen in the sample may bebelow the detection limit of the test. Bedside Influenza Type B Antigen Negative [facility] Comment on above: Negative for Flu B p rotein antigen. Infection due to Flu Bcannot be ruled out. Flu B antigen in the sample may bebelow the detection limit of the test. Urine Bacteria TRACE #/HPF Abnormal NONE SEEN [facility] Urine [facility] Occult Blood TRACE-L NEGATIVE [facility] Urine Other Casts SEEN #/LPF Abnormal NONE SEEN [facility] Urine Other Crystals None Seen #/HPF None Seen [facility] Urine RBC 0-2 #/HPF 0-2 [facility] Urine Squamous Epithelial Cells RARE #/LPF NONE/RARE [facility] Urine WBC 0-2 #/HPF Abnormal NONE SEEN [facility] A.calcoaceticus-fadi dean cmplx PCR Not detected NOT DETECTE [facility] Bacteroides fragilis (PCR) Not detected NOT DETECTE [facility] Blood Culture Source Blood [facility] Tawnya albicans (PCR) Not detected NOT DETECTE [facility] Tawnya auris (PCR) Not detected NOT DETECTE [facility] Tawnya glabrata (PCR) Not detected NOT DETECTE [facility] Tawnya krusei (PCR) Not detected NOT DETECTE [facility] Tawnya parapsilosis (PCR) Not detected NOT DETECTE [facility] Tawnya tropicalis (PCR) Not detected NOT DETECTE [facility] Crypto neoformans/gattii (PCR)(LAB) Not detected NOT DETECTE [facility] CTX-M ESBL (PCR) NOT APPLICABLE NOT DETECTE [facility] Enterobacter cloacae complex (PCR) Not detected NOT DETECTE [facility] Enterobacterales (PCR) Not detected NOT DETECTE [facility] Enterococcus faecalis PCR Not detected NOT DETECTE [facility] Enterococcus faecium PCR Not detected NOT DETECTE [facility] Escherichia coli Result Not detected NOT DETECTE [facility] Haemophilus influenzae DNA Not detected NOT DETECTE [facility] IMP (blaIMP) Carbap Res Gene (PCR) NOT APPLICABLE NOT DETECTE [facility] Klebsiella aerogenes (PCR) Not detected NOT DETECTE [facility] Klebsiella oxytoca (PCR) Not detected NOT DETECTE [facility] Klebsiella pneumoniae group (PCR) Not detected NOT DETECTE [facility] KPC (blaKPC) Detection (PCR) NOT APPLICABLE NOT DETECTE [facility] Listeria monocytogenes (PCR) Not detected NOT DETECTE [facility] MCR-1 Resistance Gene NOT APPLICABLE NOT DETECT E [facility] mecA/C & MREJ Antimicrob Resist Gen NOT APPLICABLE NOT DETECTE [facility] mecA/C-Methicillin Resistance Gene NOT APPLICABLE NOT DETECTE [facility] NDM (blaNDM) Detection (PCR) NOT APPLICABLE NOT DETECTE [facility] Neisseria meningitidis (PCR) Not detected NOT DETECTE [facility] Proteus species (PCR) Not detected NOT DETECTE [facility] Pseudomonas aeruginosa (PCR) Not detected NOT DETECTE [facility] Salmonella spp. (PCR) Not detected NOT DETECTE [facility] Serratia marcescens (PCR) Not detected NOT DETECTE [facility] Staphylococcus aureus (PCR)(LAB) Not detected NOT DETECTE [facility] Staphylococcus epidermidis (PCR) Not detected NOT DETECTE [facility] Staphylococcus lugdunensis (TEM-PCR Not detected NOT DETECTE [facility] Staphylococcus species (PCR) Not detected NOT DETECTE [facility] Stenotroph. maltophilia (PCR) Not detected NOT DETECTE [facility] Streptococcus pneumoniae (PCR) Not detected NOT DETECTE [facility] Streptococcus pyogenes (PCR)(LAB) Not detected NOT DETECTE [facility] Streptococcus species (PCR) Not detected NOT DETECTE [facility] Syn OXA-48-like Carb Res Gene (PCR) NOT APPLICABLE NOT DETECTE [facility] Giovanny/B-Vancomycin Resistance Genes NOT APPLICABLE NOT DETECTE [facility] VIM (blaVIM) Carbap Res Gene (PCR) NOT APPLICABLE NOT DETECTE [facility] Eosinophils # (Auto) 0.1 10 3/uL 0.0-0.7 [facility] Immature Granulocyte # (Auto) 0.03 10 3/uL 0.00-0.03 [facility] No Panel InformationOrdered By: Rich Carcamo on 03-08-2024 Anaerobe Identification Only [facility] Blood Culture 1 [facility] Platelet mean volume Auto (B ld) [Entitic vol]on 03-08-2024 Platelet mean volume (Bld) [Entitic vol] Platelet mean volume [Entitic volume] in Blood by Automated count 9.5-13.5 [facility] Platelets Auto (Bld) [#/Vol] on 03-08-2024 Platelets (Bld) [#/Vol] Platelets [#/volume] in Blood by Automated count 150-450 [facility] RBC Auto (Bld) [#/Vol]on RBC (Bld) [#/Vol] Erythrocytes [#/volume] in Blood by Automated count Low 4.20-5.40 [facility] Serum or plasma albumin/glob ulin mass ratioon 03-08-2024 Albumin/Globulin [Mass ratio] Serum or plasma albumin/globulin mass ratio [facility] Serum or plasma anion gap de terminationon 03-08-2024 Anion gap [Moles/Vol] Serum or plasma an ion gap determination [facility] Basophils Auto (Bld) [#/Vol] on 11-07-2023 Basophils (Bld) [#/Vol] 0.0 10 3/uL 0.0-0.1 [facility] Basophils/100 WBC Auto (Bld) on 11-07-2023 Basophils/100 WBC (Bld) 0.4 % 0.2-2.0 [facility] Eosinophils/100 WBC Auto (Bl d)on 11-07-2023 Eosinophils/100 WBC (Bld) 2.6 % 0.9-7.0 [facility] Erythrocyte distribution wid th Auto (RBC) [Ratio]on 11-07-2023 Erythrocyte distribution width (RBC) [Ratio] 13.3 % 11.0-15.0 [facility] Estimated glomerular filtrat ion rate (GFR) non- Americanon 11-07-2023 GFR/1.73 sq M.predicted among non-blacks MDRD (S/P/Bld) [Vol rate/Area] 45 mL/min/{1.73_m2} Low >=60 [facility] Hematocrit Auto (Bld) [Volum e fraction]on 11-07-2023 Hematocrit (Bld) [Volume fraction] 35.4 % Low 36.0-48.0 [facility] Hemoglobin [Mass/volume] in Bloodon 11-07-2023 Hemoglobin (Bld) [Mass/Vol] 11.8 g/dL Low 12.0-16.0 [facility] Iron binding capacity [Mass/ volume] in Serum or Plasmaon 11-07-2023 Iron binding capacity [Mass/Vol] 258.0 ug/dL 250.0-450.0 [facility] Iron saturation [Mass Fracti on] in Serum or Plasmaon 11-07-2023 Iron saturation [Mass fraction] 31.8 % [facility] Laboratory - Chemistry and C hemistry - challengeon 11-07-2023 Calcium [Mass/Vol] 10.0 mg/dL 8.5-10.1 [facility] Chloride [Moles/Vol] 102 mmol/L 98-107 [facility] CO2 [Moles/Vol] 30.7 mmol/L 21.0-32.0 [facility] Cobalamin (Vitamin B12) [Mass/Vol] 344.0 pg/mL 193.0-986.0 [facility] Creatinine [Mass/Vol] 1.17 mg/dL High 0.55-1.02 [facility] Ferritin [Mass/Vol] 154.0 ng/mL 8.0-252.0 [facility] GFR/1.73 sq M.predicted MDRD (S/P/Bld) [Vol rate/Area] 54 mL/min/{1.73_m2} Low >=60 [facility] Glucose [Mass/Vol] 107 mg/dL High 74-106 [facility] Iron [Mass/Vol] 82.0 ug/dL 50.0-170.0 [facility] Potassium [Moles/Vol] 3.5 mmol/L 3.5-5.1 [facility] Sodium [Moles/Vol] 141 mmol/L 136-145 [facility] Urea nitrogen [Mass/Vol] 15.0 mg/dL 7.0-18.0 [facility] Urea nitrogen/Creatinine [Mass ratio] 12.8 mg/mg [facility] Laboratory - Hematology and Cell countson 11-07-2023 Immature granulocytes/100 WBC (Bld) 0.2 % 0.0-0.5 [facility] Leukocytes [#/volume] correc jonnie for nucleated erythrocytes in Blood by Automated counon 11-07-2023 WBC corrected for nucl RBC Auto (Bld) [#/Vol] 5.3 10 3/uL 4.0-11.0 [facility] Lymphocytes Auto (Bld) [#/Vo l]on 11-07-2023 Lymphocytes (Bld) [#/Vol] 1.9 10 3/uL 1.2-3.8 [facility] Lymphocytes/100 WBC Auto (Bl d)on 11-07-2023 Lymphocytes/100 WBC (Bld) 35.4 % 20.5-60.0 [facility] MCH Auto (RBC) [Entitic mass ]on 11-07-2023 MCH (RBC) [Entitic mass] 30.6 pg 26.7-34.0 [facility] MCHC Auto (RBC) [Mass/Vol]on 11-07-2023 MCHC (RBC) [Mass/Vol] 33.3 g/dL 29.9-35.2 [facility] MCV Auto (RBC) [Entitic vol] on 11-07-2023 MCV (RBC) [Entitic vol] 91.7 fL 81.0-99.0 [facility] Monocytes Auto (Bld) [#/Vol] on 11-07-2023 Monocytes (Bld) [#/Vol] 0.6 10 3/uL 0.3-0.8 [facility] Monocytes/100 WBC Auto (Bld) on 11-07-2023 Monocytes/100 WBC (Bld) 12.1 % High 1.7-12.0 [facility] Neutrophils Auto (Bld) [#/Vo l]on 11-07-2023 Neutrophils (Bld) [#/Vol] 2.6 10 3/uL 1.4-6.5 [facility] Neutrophils/100 WBC Auto (Bl d)on 11-07-2023 Neutrophils/100 WBC (Bld) 49.3 % 43.0-75.0 [facility] No Panel Informationon 11-06 Eosinophils # (Auto) 0.1 10 3/uL 0.0-0.7 [facility] Folate 17.80 ng/mL 8.60-58.90 [facility] Immature Granulocyte # (Auto) 0.01 10 3/uL 0.00-0.03 [facility] Platelet mean volume Auto (B ld) [Entitic vol]on 11-07-2023 Platelet mean volume (Bld) [Entitic vol] 12.2 fL 9.5-13.5 [facility] Platelets Auto (Bld) [#/Vol] on 11-07-2023 Platelets (Bld) [#/Vol] 190 10 3/uL 150-450 [facility] RBC Auto (Bld) [#/Vol]on RBC (Bld) [#/Vol] 3.86 10 6/uL Low 4.20-5.40 [facility] Serum or plasma anion gap de terminationon 11-07-2023 Anion gap [Moles/Vol] 11.8 mmol/L [facility] Office Visiton 01-05-2023 Follow-up visit [id number] Giovanna Richardson 1940 F Date Provider Department Center 01/05/2023 3848-JEMAL MEDEIROS [facility] Family History Problem Relation Age of Onset No Known Problems Mother No Known Problems Father Family Status - Relation Status Age at Mother Father Level of Service:97677 [place] OFFICE/OUTPATIENT ESTABLISHED LOW MDM 20-29 MIN Normal [facility] FUNGAL AB QUANTITAIVE DOUBLE IMMUNODIFFUon 07-30-2022 Aspergillus flavus Negative Normal Neg:<1:1 [facility] Comment on above: Performed By: #### F UNGUYI #### [facility] [address] [address] [address] Milena Rosa Aspergillus fumigatus Negative Normal Neg:<1:1 [facility] [place] Comment on above: Performed By: #### F UNGUYI #### [facility] [address] [address] [address] Milena Rosa Aspergillus niger Negative Normal Neg:<1:1 [facility] Comment on above: Performed By: #### F UNGUYI #### [facility] [address] [address] [address] Milena Rosa Blastomyces Negative Normal Neg:<1:1 [facility] [place] Comment on above: Performed By: #### F UNGUYI #### [facility] [address] [address] [address] Milena Rosa HISTOPLASMA GALACTOMANNAN AG URINEon 07-30-2022 Histoplasma Gal'rosales Ag <0.5 Normal <0.5 ng/mL [facility] [place] Comment on above: Performed By: #### H ISTGAL ####[facility] [address] [address]Dr. Milena Rosa COCCIDIODES IGG/IGM AB BY IF Aon 07-29-2022 Coccidiodes Ab, IgG EIA 0.1 EIA Units Normal [facility] [place] Comment on above: Result Comment: Nega tive <1.0 Indeterminate 1.0-1.4 Positive >1.4 Performed By: #### C OCCABS #### [facility] [address] [address] [address] Milena Rosa Coccidiodes Ab, IgM, EIA 0.0 EIA Units Normal [facility] [place] Comment on above: Result Comment: Nega tive <1.0 Indeterminate 1.0-1.4 Positive >1.4 Performed By: #### C OCCABS #### [facility] [address], [place] [address] Dr. Milena Rosa HISTOPLASMA CAP AB QUANT DID on 07-29-2022 Histoplasma Mycelial CF Ab. Negative Normal Neg:<1:2 [facility] [place] Comment on above: Performed By: #### H ISTDID ####[facility] [address] [place], [place] [address]VxDr. Milena Rosa Histoplasma Yeast CF Ab Negative Normal Neg:<1:2 [facility] [place] Comment on above: Performed By: #### H ISTDID ####[facility] [address] [place], [place] [address]WpDr. Milena Rosa Office Visiton 07-26-2022 Follow-up visit [id number] Giovanna Richardson 1940 F Date Provider Department Center 07/26/2022 Kamilah8-JEMAL MEDEIROS [facility] Family History Problem Relation Age of Onset No Known Problems Mother No Known Problems Father Family Status - Relation Status Age at Mother Father Level of Service:50650 MT OFFICE/OUTPATIENT ESTABLISHED MOD MDM 30-39 MIN Reason for Visit and Comments: Follow-up [514267] - 6 weeks- Go over Holter monitor results- Discuss medications Normal [facility] CT CHEST WO CONon 07-19-2022 CT [...] WILLIAM BERMEO Date: 2022-07-19 14:55 Normal [facility] Office Visiton 06-07-2022 Follow-up visit [id number] Giovanna Richardson 1940 F Date Provider Department Center 06/07/2022 3848-JEMAL MEDEIROS [facility] Family History Problem Relation Age of Onset No Known Problems Mother No Known Problems Father Family Status - Relation Status Age at Mother Father Level of Service:98528 MT OFFICE/OUTPATIENT ESTABLISHED MOD MDM 30-39 MIN Reason for Visit and Comments: Post-Cath [731] Normal [facility] CBC AUTO DIFFon 05-15-2022 BASO # 0.0 103/ul Normal 0.0-0.1 [facility] [place] Comment on above: Performed By: #### C BC #### [facility] [address] [place] [address] Dr. Milena Rosa Basophils/100 WBC (Bld) 0.3 % Normal 0.2-2.0 [facility] [place] Comment on above: Performed By: #### C BC #### [facility] [address], [place] [address] Dr. Milena Rosa EO # 0.2 103/ul Normal 0.0-0.7 [facility] [place] Comment on above: Performed By: #### C BC #### [facility] [address] [place] [address] Dr. Milena Rosa Eosinophils/100 WBC (Bld) 2.8 % Normal 0.9-7.0 [facility] [place] Comment on above: Performed By: #### C BC #### [facility] [address] [place] [address] Dr. Milena Rosa Erythrocyte distribution width (RBC) [Ratio] 13.3 % Normal 11.0-15.0 [facility] [place] Comment on above: Performed By: #### C BC #### [facility] [address] [place] [address] Dr. Milena Rosa Hematocrit (Bld) [Volume fraction] 38.5 % Normal 36.0-48.0 [facility] [place] Comment on above: Performed By: #### C BC #### [facility] [address] [place] [address] Dr. Milena Rosa Hemoglobin (Bld) [Mass/Vol] 12.6 g/dL Normal 12.0-16.0 [facility] [place] Comment on above: Performed By: #### C BC #### [facility] [address] [place] [address] Dr. Milena Rosa IG # 0.02 10e3/ul Normal 0.00-0.03 [facility] [place] Comment on above: Performed By: #### C BC #### [facility] [address] [place] [address] Dr. Milena Rosa IG % 0.3 % Normal 0.0-0.5 [facility] Comment on above: Performed By: #### C BC #### [facility] [address] [place] [address] Dr. Milena Rosa LYMPH # 2.5 103/ul Normal 1.2-3.8 [facility] Comment on above: Performed By: #### C BC #### [facility] [address] [place] [address] Dr. Milena Rosa Lymphocytes/100 WBC (Bld) 37.6 % Normal 20.5-60.0 [facility] [place] Comment on above: Performed By: #### C BC #### [facility] [address] [place] [address] Dr. Milena Rosa MANUAL DIFF REQ NO Normal [facility] Comment on above: Performed By: #### C BC #### [facility] [address] [place] [address] Dr. Milena Rosa MCH (RBC) [Entitic mass] 29.8 pg Normal 26.7-34.0 [facility] [place] Comment on above: Performed By: #### C BC #### [facility] [address] [place] [address] Dr. Milena Rosa MCHC (RBC) [Mass/Vol] 32.7 g/dL Normal 29.9-35.2 [facility] [place] Comment on above: Performed By: #### C BC #### [facility] [address] [place] [address] Dr. Milena Rosa MCV (RBC) [Entitic vol] 91.0 fL Normal 81.0-99.0 [facility] [place] Comment on above: Performed By: #### C BC #### [facility] [address] [place] [address] Dr. Milena Rosa MONO # 0.7 103/ul Normal 0.3-0.8 [facility] [place] Comment on above: Performed By: #### C BC #### [facility] [address] [place] [address] Dr. Milena Rosa Monocytes/100 WBC (Bld) 10.0 % Normal 1.7-12.0 [facility] [place] Comment on above: Performed By: #### C BC #### [facility] [address] [place] [address] Dr. Milena Rosa NEUT # 3.3 103/ul Normal 1.4-6.5 [facility] Comment on above: Performed By: #### C BC #### [facility] [address] [place] [address] Dr. Milena Rosa Neutrophils/100 WBC (Bld) 49.0 % Normal 43.0-75.0 [facility] Comment on above: Performed By: #### C BC #### [facility] [address] [place] [address] Dr. Milena Rosa Platelet mean volume (Bld) [Entitic vol] 11.5 fL Normal 9.5-13.5 [facility] Comment on above: Performed By: #### C BC #### [facility] [address] [place] [address] Dr. Milena Rosa PLT 201 103/ul Normal 150-450 [facility] Comment on above: Performed By: #### C BC #### [facility] [address] [place] [address] Dr. Milena Rosa RBC 4.23 106/ul Normal 4.20-5.40 [facility] [place] Comment on above: Performed By: #### C BC #### [facility] [address] [place] [address] Dr. Milena Rosa WBC 6.7 103/ul Normal 4.0-11.0 [facility] [place] Comment on above: Performed By: #### C BC #### [facility] [address] [place] [address] Dr. Milena Rosa Covid-19 PCR ([facility])on 04-30 SARS-CoV-2 (COVID-19) RNA RADHA+probe Ql (Unsp spec) Not detected Normal NOT DETECTED [facility] Comment on above: Result Comment: This test is not yet approved or cleared by the [place] FDA. When there are no FDA-approved or cleared tests available, and other criteria are met, FDA can make tests available under an emergency access mechanism called an Emergency Use Authorization (EUA). The EUA for this test is supported by the [place] Operator of Health and Human Service's (HHS's) declaration [...] with SARS-CoV-2. Performed By: #### C VDTBH ####[facility] [address] [place], [place] [address]IwDr. Milena Rosa PROF CHEM 8 (BAS METB)on Anion gap [Moles/Vol] 13.1 mmol/L Normal [facility] Comment on above: Performed By: #### B MP #### [facility] [address] [address] [address] Milena Rosa Calcium [Mass/Vol] 9.8 mg/dL Normal 8.5-10.1 [facility] Comment on above: Performed By: #### B MP #### [facility] [address] [address] [address] Milena Rosa Chloride [Moles/Vol] 103 mmol/L Normal 98-107 [facility] [place] Comment on above: Performed By: #### B MP #### [facility] [address] [address] [address] Milena Rosa CO2 [Moles/Vol] 26.7 mmol/L Normal 21.0-32.0 [facility] Comment on above: Performed By: #### B MP #### [facility] [address] [address] [address] Milena Rosa Creatinine [Mass/Vol] 0.95 mg/dL Normal 0.55-1.02 [facility] [place] Comment on above: Performed By: #### B MP #### [facility] [address] [address] [address] Milena Rosa EGFR-AF PAPUA NEW GUINEAN >60 Normal >=60 [facility] Comment on above: Performed By: #### B MP #### [facility] [address] [address] [address] Milena Rosa EGFR-NON AF PAPUA NEW GUINEAN 57 mL/min/1.73m2 Critically low >=60 [facility] [place] Comment on above: Performed By: #### B MP #### [facility] [address] [address] [address] Milena Rosa Glucose [Mass/Vol] 93 mg/dL Normal 74-106 [facility] Comment on above: Performed By: #### B MP #### [facility] [address] [address] [address] Milena Rosa Potassium [Moles/Vol] 3.8 mmol/L Normal 3.5-5.1 [facility] [place] Comment on above: Performed By: #### B MP #### [facility] [address] [address] [address] Milena Rosa Sodium [Moles/Vol] 139 mmol/L Normal 136-145 [facility] Comment on above: Performed By: #### B MP #### [facility] [address] [address] [address] Milena Rosa Urea nitrogen [Mass/Vol] 18.0 mg/dL Normal 7.0-18.0 [facility] [place] Comment on above: Performed By: #### B MP #### [facility] [address] [address] [address] Milena Rosa Urea nitrogen/Creatinine [Mass ratio] 18.9 mg/mg Normal [facility] [place] Comment on above: Performed By: #### B MP #### [facility] [address] [address] [address] Milena Rosa NM STRESS/REST MULTIon 04-28 NM STRESS/REST MULTI Patient: GIOVANNA RICHARDSON Exam Date: 04/28/2022 : 1940 Gender:F Ordering : DR OVI CROOKS D.O. Admission #: [id number] Family : Order #: [id number] CLICK HERE TO VIEW EXAM RADIOLOGY REPORT [...] MD on 04/28/2022 at 14:26 Normal [facility] CBC AUTO DIFFon 02-27-2022 BASO # 0.0 103/ul Normal 0.0-0.1 [facility] [place] Comment on above: Performed By: #### C BC ####[facility] [address] [address]Dr. Milena Rosa Basophils/100 WBC (Bld) 0.5 % Normal 0.2-2.0 [facility] Comment on above: Performed By: #### C BC ####[facility] [address] [address]Dr. Milena Rosa EO # 0.1 103/ul Normal 0.0-0.7 [facility] Comment on above: Performed By: #### C BC ####[facility] [address] [place], [place] [address]Dr. Milena Moe Eosinophils/100 WBC (Bld) 1.9 % Normal 0.9-7.0 [facility] Comment on above: Performed By: #### C BC ####[facility] [address] [address]Dr. Milena Moe Erythrocyte distribution width (RBC) [Ratio] 14.3 % Normal 11.0-15.0 [facility] [place] Comment on above: Performed By: #### C BC ####[facility] [address] [place] [id number]. Milena Rosa Hematocrit (Bld) [Volume fraction] 37.6 % Normal 36.0-48.0 [facility] Comment on above: Performed By: #### C BC ####[facility] [address] [address]Dr. Milena Rosa Hemoglobin (Bld) [Mass/Vol] 12.6 g/dL Normal 12.0-16.0 [facility] Comment on above: Performed By: #### C BC ####[facility] [address] [address]Dr. Milena Moe IG # 0.02 10e3/ul Normal 0.00-0.03 [facility] [place] Comment on above: Performed By: #### C BC ####[facility] [address] [address]Dr. Milena Rosa IG % 0.3 % Normal 0.0-0.5 [facility] [place] Comment on above: Performed By: #### C BC ####[facility] [address] [address]Dr. Kimberleychinedu Rosa LYMPH # 2.1 103/ul Normal 1.2-3.8 [facility] Comment on above: Performed By: #### C BC ####[facility] [address] [address]Dr. Kimberleychinedu Rosa Lymphocytes/100 WBC (Bld) 33.2 % Normal 20.5-60.0 [facility] Comment on above: Performed By: #### C BC ####[facility] [address] [place] [address]Dr. Kimberleychinedu Rosa MANUAL DIFF REQ NO Normal [facility] Comment on above: Performed By: #### C BC ####[facility] [address] [address]Dr. Milena Moe MCH (RBC) [Entitic mass] 30.9 pg Normal 26.7-34.0 [facility] Comment on above: Performed By: #### C BC ####[facility] [address] [place] [address]Ja. Milena Rosa MCHC (RBC) [Mass/Vol] 33.5 g/dL Normal 29.9-35.2 [facility] Comment on above: Performed By: #### C BC ####[facility] [address] [place] [id number]. Milena Rosa MCV (RBC) [Entitic vol] 92.2 fL Normal 81.0-99.0 [facility] Comment on above: Performed By: #### C BC ####[facility] [address] [address]Dr. Milena Moe MONO # 0.6 103/ul Normal 0.3-0.8 [facility] Comment on above: Performed By: #### C BC ####[facility] [address] [address]Dr. Kimberleychinedu Rosa Monocytes/100 WBC (Bld) 8.9 % Normal 1.7-12.0 [facility] Comment on above: Performed By: #### C BC ####[facility] [address] [place], [place] [address]Dr. Milena Rosa NEUT # 3.5 103/ul Normal 1.4-6.5 [facility] Comment on above: Performed By: #### C BC ####[facility] [address] [place], [place] [address]Dr. Milena Rosa Neutrophils/100 WBC (Bld) 55.2 % Normal 43.0-75.0 [facility] Comment on above: Performed By: #### C BC ####[facility] [address] [place] [id number]. Milena Rosa Platelet mean volume (Bld) [Entitic vol] 11.6 fL Normal 9.5-13.5 [facility] Comment on above: Performed By: #### C BC ####[facility] [address] [address]Dr. Milena Moe PLT 217 103/ul Normal 150-450 [facility] Comment on above: Performed By: #### C BC ####[facility] [address] [place], [place] [address]Bi. Milena Rosa RBC 4.08 106/ul Critically low 4.20-5.40 [facility] Comment on above: Performed By: #### C BC ####[facility] [address] [place], [place] [address]PbElia Rosa WBC 6.3 103/ul Normal 4.0-11.0 [facility] [place] Comment on above: Performed By: #### C BC ####[facility] [address] [place], [place] [address]Lq. Milena Rosa ECHOCARDIO M/2D COMPLETEon 1 ECHOCARDIO M/2D COMPLETE Patient: GIOVANNA RICHARDSON Exam Date: 02/27/2022 : 1940 Gender:F Ordering : DR OVI CROOKS D.O. Admission #: [id number] Family : Order #: [id number] CLICK HERE TO VIEW EXAM ECHOCARDIOGRAM REPORT [...] M.D. on 03/01/2022 at 11:53 Normal [facility] PROF CHEM 8 (BAS B)on Anion gap [Moles/Vol] 6.1 mmol/L Normal [facility] [place] Comment on above: Performed By: #### B TERESA, TSH #### [facility] [address] [place] [address] Dr. Milena Rosa Calcium [Mass/Vol] 9.0 mg/dL Normal 8.5-10.1 [facility] Comment on above: Performed By: #### B TERESA, TSH #### [facility] [address] [address] [address] Milena Rosa Chloride [Moles/Vol] 103 mmol/L Normal 98-107 [facility] Comment on above: Performed By: #### B TERESA, TSH #### [facility] [address] [place] [address] Dr. Milena Rosa CO2 [Moles/Vol] 34.4 mmol/L Critically high 21.0-32.0 [facility] [place] Comment on above: Performed By: #### B TERESA, TSH #### [facility] [address] [place] [address] Dr. Milena Rosa Creatinine [Mass/Vol] 1.21 mg/dL Critically high 0.55-1.02 [facility] [place] Comment on above: Performed By: #### B TERESA, TSH #### [facility] [address] [place] [address] Dr. Milena Rosa EGFR-AF PAPUA NEW GUINEAN 52 mL/min/1.73m2 Critically low >=60 [facility] Comment on above: Performed By: #### B TERESA, TSH #### [facility] [address] [place] [address] Dr. Milena Rosa EGFR-NON AF PAPUA [place] GUINEAN 43 mL/min/1.73m2 Critically low >=60 [facility] Comment on above: Performed By: #### B TERESA, TSH #### [facility] [address] [place] [address] Dr. Milena Rosa Glucose [Mass/Vol] 101 mg/dL Normal 74-106 [facility] Comment on above: Performed By: #### B TERESA, TSH #### [facility] [address] [place] [address] Dr. Milena Rosa Potassium [Moles/Vol] 3.5 mmol/L Normal 3.5-5.1 [facility] [place] Comment on above: Performed By: #### B MP, TSH #### [facility] [address] [address] [address] Milena Rosa Sodium [Moles/Vol] 140 mmol/L Normal 136-145 [facility] Comment on above: Performed By: #### B MP, TSH #### [facility] [address] [address] [address] Milena Rosa Urea nitrogen [Mass/Vol] 20.0 mg/dL Critically high 7.0-18.0 [facility] [place] Comment on above: Performed By: #### B MP, TSH #### [facility] [address] [place] [address] Dr. Milena Rosa Urea nitrogen/Creatinine [Mass ratio] 16.5 mg/mg Normal [facility] [place] Comment on above: Performed By: #### B MP, TSH #### [facility] [address] [place] [address] Dr. Milena Rosa TSHon 02-27-2022 TSH 1.640 uIU/mL Normal 0.358-3.740 [facility] Comment on above: Performed By: #### B MP, TSH #### [facility] [address] [place] [address] Dr. Milena Rosa XR CHEST 2 Von [...] WHITNEY FOURNIER Date: 2022-02-27 13:49 Normal [facility] MRI LSPINE WO CONon 01-10-20 MRI [facility] WO CON EXAMINATION: MRI LSPELICAN WO CON HISTORY: Lumbar spondylosis ; chronic [...] by: WILLIAM BERMEO Date: 2022-01-09 16:20 Normal [facility] [place] XR hand BI 3Von 12-21-2021 XR hand BI 3V [facility] [place] [address] [place] [address] XRay Report Signed Patient: Giovanna Richardson MR#: [id number] : 1940 Acct:[id number] Age/Sex: 81 / F ADM Date: 12/21/21 Loc: [facility] [place] Room: Type: [facility] Attending Dr: Brina Morrissey MD Copies [...] hand. Impression dictated by: Erasmo Caal Jr., DEliaOElia12/21/2021 2:31 PM Dictation Location: [place] [address] Transcribed By: [facility] 12/21/21 1431 Dictated By: Erasmo Caal Jr, DO 12/21/21 1427 Signed By: 12/21/21 1431 [facility] CBC AUTO DIFFon 09-14-2021 BASO # 0.0 103/ul Normal 0.0-0.1 [facility] [place] Comment on above: Performed By: #### C BC #### [facility] [address] [place], [place] [address] Dr. Milena Rosa Basophils/100 WBC (Bld) 0.2 % Normal 0.2-2.0 [facility] [place] Comment on above: Performed By: #### C BC #### [facility] [address] [place] [address] Dr. Milena Rosa EO # 0.1 103/ul Normal 0.0-0.7 [facility] Comment on above: Performed By: #### C BC #### [facility] [address] [place] [address] Dr. Milena Rosa Eosinophils/100 WBC (Bld) 2.8 % Normal 0.9-7.0 [facility] [place] Comment on above: Performed By: #### C BC #### [facility] [address] [place] [address] Dr. Milena Rosa Erythrocyte distribution width (RBC) [Ratio] 13.4 % Normal 11.0-15.0 [facility] [place] Comment on above: Performed By: #### C BC #### [facility] [address] [place] [address] Dr. Milena Rosa Hematocrit (Bld) [Volume fraction] 38.2 % Normal 36.0-48.0 [facility] [place] Comment on above: Performed By: #### C BC #### [facility] [address] [place] [address] Dr. Milena Rosa Hemoglobin (Bld) [Mass/Vol] 12.5 g/dL Normal 12.0-16.0 [facility] Comment on above: Performed By: #### C BC #### [facility] [address] [place] [address] Dr. Milena Rosa IG # 0.02 10e3/ul Normal 0.00-0.03 [facility] Comment on above: Performed By: #### C BC #### [facility] [address] [place] [address] Dr. Milena Rosa IG % 0.4 % Normal 0.0-0.5 [facility] Comment on above: Performed By: #### C BC #### [facility] [address] [place] [address] Dr. Milena Rosa LYMPH # 2.1 103/ul Normal 1.2-3.8 [facility] Comment on above: Performed By: #### C BC #### [facility] [address] [place] [address] Dr. Milena Rosa Lymphocytes/100 WBC (Bld) 40.5 % Normal 20.5-60.0 [facility] [place] Comment on above: Performed By: #### C BC #### [facility] [address] [place] [address] Dr. Milena Rosa MANUAL DIFF REQ NO Normal [facility] Comment on above: Performed By: #### C BC #### [facility] [address] [place] [address] Dr. Milena Rosa MCH (RBC) [Entitic mass] 29.7 pg Normal 26.7-34.0 [facility] [place] Comment on above: Performed By: #### C BC #### [facility] [address] [place] [address] Dr. Milena Rosa MCHC (RBC) [Mass/Vol] 32.7 g/dL Normal 29.9-35.2 [facility] Comment on above: Performed By: #### C BC #### [facility] [address] [place] [address] Dr. Milena Rosa MCV (RBC) [Entitic vol] 90.7 fL Normal 81.0-99.0 [facility] [place] Comment on above: Performed By: #### C BC #### [facility] [address] [place] [address] Dr. Milena Rosa MONO # 0.6 103/ul Normal 0.3-0.8 [facility] [place] Comment on above: Performed By: #### C BC #### [facility] [address] [place] [address] Dr. Milena Rosa Monocytes/100 WBC (Bld) 12.0 % Normal 1.7-12.0 [facility] [place] Comment on above: Performed By: #### C BC #### [facility] [address] [place] [address] Dr. Milena Rosa NEUT # 2.3 103/ul Normal 1.4-6.5 [facility] [place] Comment on above: Performed By: #### C BC #### [facility] [address] [place] [address] Dr. Milena Rosa Neutrophils/100 WBC (Bld) 44.1 % Normal 43.0-75.0 [facility] [place] Comment on above: Performed By: #### C BC #### [facility] [address] [address] [address] Milena Rosa Platelet mean volume (Bld) [Entitic vol] 11.7 fL Normal 9.5-13.5 [facility] [place] Comment on above: Performed By: #### C BC #### [facility] [address] [address] [address] Milena Rosa PLT 206 103/ul Normal 150-450 [facility] Comment on above: Performed By: #### C BC #### [facility] [address] [address] [address] Milena Rosa RBC 4.21 106/ul Normal 4.20-5.40 [facility] [place] Comment on above: Performed By: #### C BC #### [facility] [address] [place] [address] Dr. Milena Rosa WBC 5.1 103/ul Normal 4.0-11.0 [facility] [place] Comment on above: Performed By: #### C BC #### [facility] [address] [place] [address] Dr. Milena Rosa MG MAMM SCREEN 3D SHERICE CADon 09-14-2021 MG MAMM SCREEN 3D SHERICE CAD Patient: GIOVANNA RICHARDSON Exam Date: 09/14/2021 : 1940 Gender:F Ordering : DR OVI CROOKS D.O. Admission #: [id number] Family : Order #: [id number] CLICK HERE TO VIEW EXAM RADIOLOGY REPORT [...] Treatments None Family Cancers None LOCATION: [facility] BREAST COMPOSITION: Scattered areas fibroglandular density. [...] Ziegler MD on 09/14/2021 at 10:42 Normal [facility] [place] PROF CHEM 8 (BAS METB)on Anion gap [Moles/Vol] 10.5 mmol/L Normal [facility] Comment on above: Performed By: #### B MP #### [facility] [address] [place] [address] Dr. Milena Rosa Calcium [Mass/Vol] 9.5 mg/dL Normal 8.5-10.1 [facility] Comment on above: Performed By: #### B MP #### [facility] [address] [place] [address] Dr. Milena Rosa Chloride [Moles/Vol] 101 mmol/L Normal 98-107 [facility] [place] Comment on above: Performed By: #### B MP #### [facility] [address] [place] [address] Dr. Milena Rosa CO2 [Moles/Vol] 31.1 mmol/L Normal 21.0-32.0 [facility] Comment on above: Performed By: #### B MP #### [facility] [address] [place] [address] Dr. Milena Rosa Creatinine [Mass/Vol] 1.01 mg/dL Normal 0.55-1.02 [facility] [place] Comment on above: Performed By: #### B MP #### [facility] [address] [place] [address] Dr. Milena Rosa EGFR-AF PAPUA NEW GUINEAN >60 Normal >=60 [facility] Comment on above: Performed By: #### B MP #### [facility] [address] [place] [address] Dr. Milena Rosa EGFR-NON AF PAPUA NEW GUINEAN 53 mL/min/1.73m2 Critically low >=60 [facility] [place] Comment on above: Performed By: #### B MP #### [facility] [address] [address] [address] Milena Rosa Glucose [Mass/Vol] 96 mg/dL Normal 74-106 [facility] Comment on above: Performed By: #### B MP #### [facility] [address] [address] [address] Milena Rosa Potassium [Moles/Vol] 3.6 mmol/L Normal 3.5-5.1 [facility] [place] Comment on above: Performed By: #### B MP #### [facility] [address] [address] [address] Milena Rosa Sodium [Moles/Vol] 139 mmol/L Normal 136-145 [facility] Comment on above: Performed By: #### B MP #### [facility] [address] [address] [address] Milena Rosa Urea nitrogen [Mass/Vol] 20.0 mg/dL Critically high 7.0-18.0 [facility] [place] Comment on above: Performed By: #### B MP #### [facility] [address] [address] [address] Milena Rosa Urea nitrogen/Creatinine [Mass ratio] 19.8 mg/mg Normal [facility] [place] Comment on above: Performed By: #### B MP #### [facility] [address] [address] [address] Milena Rosa Coding Summary.on 12-26-2017 Coding Summary. CODING DATE: 12/26/2017 FINAL [facility] STATUS: Home (Routine DC) PAYOR: Medicare APC DESCRIPTION [address] [facility] Procedures ADMIT DX: REASON FOR VISIT DX: H26.492 Other secondary cataract, left eye FINAL DX: PRINCIPAL: H26.492 Other secondary cataract, left eye SECONDARY: PYMT PROC APC STAT DESCRIPTION DOCTOR NAME DATE [id number] T Discission of secondary Quinn Armendariz DO [...] different terminology. Revised Coded By: Isha Eddy Date Saved: 12/26/2017 11:03 am [facility] Coding Summary.on 12-19-2017 Coding Summary. CODING DATE: 12/19/2017 FINAL [facility] STATUS: Home (Routine DC) PAYOR: Medicare APC DESCRIPTION [address] [facility] Procedures ADMIT DX: REASON FOR VISIT DX: H26.40 Unspecified secondary cataract FINAL DX: PRINCIPAL: H26.40 Unspecified secondary cataract SECONDARY: PYMT PROC APC STAT DESCRIPTION DOCTOR NAME DATE [id number] T Discission of secondary Quinn Armendariz DO [...] Shilpa Perez Date Saved: 12/19/2017 09:21 am [facility] Vital Signs Date Time Vital Sign Value Performing Clinician Facility 08-25-2024 09:56-0400 Body height 151.13 cm [facility] 08-25-2024 09:56-0400 Body mass index (BMI) [Ratio] 30.7 kg/m2 [facility] 08-25-2024 09:56-0400 Body weight 70.02 kg [facility] 08-25-2024 09:56-0400 Diastolic blood pressure 74 mm[Hg] [facility] 08-25-2024 09:56-0400 Heart rate 64 /min [facility] 08-25-2024 09:56-0400 Respiratory rate 12 /min [facility] 08-25-2024 09:56-0400 SaO2% (BldA) [Mass fraction] 97 % [facility] 08-25-2024 09:56-0400 Systolic blood pressure 124 mm[Hg] [facility] 04-14-2024 14:22-0500 Body height 149.9 cm Brigitte Martinezr [employer] Work Phone: [facility] 04-14-2024 14:22-0500 Body mass index (BMI) [Ratio] 31.71 kg/m2 Brigitte Brarmor [employer] Work Phone: [facility] 04-14-2024 14:22-0500 Body weight 71.22 kg Brigitte Brarmor [employer] Work Phone: [facility] 04-14-2024 14:22-0500 Diastolic blood pressure 52 mm[Hg] Brigitte Brarmor [employer] Work Phone: [facility] 04-14-2024 14:22-0500 Heart rate 61 /min Brigitte Brarmor [employer] Work Phone: [facility] 04-14-2024 14:22-0500 SaO2% (BldA) [Mass fraction] 97 % Brigitte Brarmor [employer] Work Phone: [facility] 04-14-2024 14:22-0500 Systolic blood pressure 93 mm[Hg] Brigitte Martinezr [employer] Work Phone: [facility] 03-17-2024 10:07-0500 Body height 151.13 cm [facility] 03-17-2024 10:07-0500 Body mass index (BMI) [Ratio] 30.5 kg/m2 [facility] 03-17-2024 10:07-0500 Body weight 69.85 kg [facility] 03-17-2024 10:07-0500 Diastolic blood pressure 72 mm[Hg] [facility] 03-17-2024 10:07-0500 Heart rate 61 /min [facility] 03-17-2024 10:07-0500 SaO2% (BldA) [Mass fraction] 97 % [facility] 03-17-2024 10:07-0500 Systolic blood pressure 120 mm[Hg] [facility] 02-25-2024 10:08-0400 Body height 151.13 cm [facility] 02-25-2024 10:08-0400 Body mass index (BMI) [Ratio] 30.4 kg/m2 [facility] 02-25-2024 10:08-0400 Body weight 69.39 kg [facility] 02-25-2024 10:08-0400 Diastolic blood pressure 70 mm[Hg] [facility] 02-25-2024 10:08-0400 Heart rate 61 /min [facility] 02-25-2024 10:08-0400 Respiratory rate 12 /min [facility] 02-25-2024 10:08-0400 Systolic blood pressure 126 mm[Hg] [facility] 07-20-2023 09:05-0400 Body height 151.13 cm [facility] [facility] 07-[facility]2023 09:05-0400 Body mass index (BMI) [Ratio] 29.8 kg/m2 [facility] 07-20-2023 09:05-0400 Body weight 68.2 kg [facility] 07-20-2023 09:05-0400 Diastolic blood pressure 71 mm[Hg] [facility] 07-20-2023 09:05-0400 Heart rate 62 /min [facility] 07-20-2023 09:05-0400 Respiratory rate 12 /min [facility] 07-20-2023 09:05-0400 Systolic blood pressure 112 mm[Hg] [facility] 02-20-2023 16:00-0400 Body height Ovi Ball Other [facility] Other 02-20-2023 16:00-0400 Body mass index (BMI) [Ratio] 30.44 kg/m2 Ovi Ball Other [facility] Other 02-20-2023 16:00-0400 Body weight 69.54 kg Ovi Ball Other [facility] Other 02-20-2023 16:00-0400 Diastolic blood pressure 78 mm[Hg] Ovi Ball Other [facility] Other 02-20-2023 16:00-0400 Respiratory rate 12 /min Ovi Ball Other [facility] Other 02-20-2023 16:00-0400 Systolic blood pressure 144 mm[Hg] Ovi Ball Other [facility] Other 07-17-2022 16:30-0400 Body height Ovi Ball Other [facility] Other 07-17-2022 16:30-0400 Body mass index (BMI) [Ratio] 31.33 kg/m2 Ovi Ball Other [facility] Other 07-17-2022 16:30-0400 Body weight 71.58 kg Ovi Ball Other [facility] Other 07-17-2022 16:30-0400 Diastolic blood pressure 75 mm[Hg] Ovi Ball Other [facility] Other 07-17-2022 16:30-0400 Respiratory rate 12 /min Ovi Ball Other [facility] Other 07-17-2022 16:30-0400 Systolic blood pressure 122 mm[Hg] Ovi Ball Other [facility] Other 12-21-2021 11:00-0400 Body height Brina Morrissey Other [facility] Other Encounters Encounter Date Encounter Type Care Provider Facility Start: 09-02-2024 End: 09-02-2024 ambulatory [facility] Work Phone: Start: 09-02-2024 End: 09-02-2024 Patient encounter procedure [facility] Work Phone: Start: 08-25-2024 End: 08-25-2024 ambulatory [facility] Work Phone: Start: 08-25-2024 End: 08-25-2024 Patient encounter procedure [facility] Work Phone: Start: 05-06-2024 End: 05-06-2024 ambulatory [facility] Work Phone: Start: 05-06-2024 End: 05-06-2024 Patient encounter procedure [facility] Work Phone: Start: 04-14-2024 End: 04-14-2024 Office outpatient visit 25 minutes Brigitte Yang REC[employer] Work Phone: [facility] Comment on above: Obstructive sleep ap ravi syndrome (Primary Dx); Cerebral infarction, left hemisphere (CMS/HCC); Hypoxia; Sleep deprivation Start: 04-14-2024 End: 04-14-2024 ambulatory BRIGITTE YANG Not Available Start: 04-14-2024 End: 04-14-2024 Bamboo flowsheet Brigitte Yang RECORD MAKER Work Phone: [facility] [employer] [facility] Start: 04-14-2024 End: 04-14-2024 Bamboo flowsheet Brigitte Yang RECORD MAKER Work Phone: [facility] Start: 03-17-2024 End: 03-17-2024 ambulatory [facility] Work Phone: Start: 03-17-2024 End: 03-17-2024 Patient encounter procedure [facility] Work Phone: Start: 03-10-2024 Non-patient / Non-visit [facility] Work Phone: Start: 03-09-2024 Non-patient / Non-visit [facility] Work Phone: Start: 03-08-2024 Non-patient / Non-visit [facility] Work Phone: Start: 02-27-2024 Non-patient / Non-visit [facility] Work Phone: Start: 02-25-2024 End: 02-25-2024 ambulatory [facility] Work Phone: Start: 02-25-2024 End: 02-25-2024 Patient encounter procedure [facility] Work Phone: Start: 02-15-2024 End: 02-15-2024 Refill Torres Rosa MD Work Phone: [facility] Comment on above: LPRD (laryngopharyng eal reflux disease) Start: 01-17-2024 End: 01-17-2024 Refill Alejandro Monteiro MA [facility] [address] [facility] Comment on above: Cerebral infarction, left hemisphere (CMS/HCC) (Primary Dx) Start: 01-01-2024 End: 01-01-2024 ambulatory [facility] Work Phone: Start: 01-01-2024 End: 01-01-2024 Patient encounter procedure [facility] Work Phone: Start: 11-07-2023 Non-patient / Non-visit [facility] Work Phone: Start: 10-08-2023 End: 10-08-2023 ambulatory BRIGITTE BRARSONG Not Available Start: 09-26-2023 End: 09-26-2023 ambulatory TORRES H TIMMIS Not Available Start: 08-15-2023 End: 08-15-2023 ambulatory TORRES H TIMMIS Not Available Start: 07-20-2023 End: 07-20-2023 ambulatory [facility] Work Phone: Start: 07-20-2023 End: 07-20-2023 Patient encounter procedure [facility] Work Phone: Start: 07-04-2023 End: 07-04-2023 Patient encounter procedure [facility] Work Phone: Start: 04-17-2023 End: 04-17-2023 ambulatory Ovi Ball Other [facility] Other Start: 04-17-2023 Telephone encounter Ovi Ball [facility] Start: 03-13-2023 End: 03-13-2023 ambulatory Ovi Ball Other [facility] Other Start: 03-13-2023 Telephone encounter Ovi Ball [facility] Start: 03-07-2023 End: 03-07-2023 ambulatory Ovi Ball Other [facility] Other Start: 03-07-2023 Telephone encounter Ovi Ball [facility] Start: 03-01-2023 End: 03-01-2023 ambulatory Ovi Ball Other [facility] Other Start: 03-01-2023 Telephone encounter Ovi Ball [facility] Start: 02-28-2023 End: 02-28-2023 ambulatory Ovi Ball Other [facility] Other Start: 02-28-2023 Telephone encounter Ovi Ball [facility] Start: 02-22-2023 End: 02-22-2023 ambulatory Ovi Ball Other [facility] Other Start: 02-22-2023 Telephone encounter Ovi Ball [facility] Start: 02-21-2023 End: 02-21-2023 ambulatory Ovi Ball Other [facility] Other Start: 02-21-2023 Telephone encounter Ovi Ball [facility] Start: 02-20-2023 End: 02-20-2023 ambulatory Ovi Ball Other [facility] Other Start: 02-20-2023 Office outpatient vi sit 25 [address] [facility] Start: 01-23-2023 End: 01-23-2023 ambulatory Ovi Crooks Other [facility] Other Start: 01-23-2023 Telephone encounter Ovi IBARRA [facility] Start: 01-16-2023 End: 01-16-2023 ambulatory Brina Morrissey Other [facility] Other Start: 01-16-2023 Office outpatient vi sit 15 minutes Brina Morrissey [facility] Start: 01-05-2023 End: 01-05-2023 ambulatory [facility] Start: 11-23-2022 ambulatory DAVID KAPOOR . Facili ty:H1 Start: 09-01-2022 End: 09-02-2022 ambulatory DAVID KAPOOR . Facility:[facility] Start: 07-31-2022 End: 07-31-2022 ambulatory Brina Morrissey Other [facility] Other Start: 07-31-2022 Telephone encounter Brina Wright [facility] Start: 07-26-2022 End: 07-27-[address] OVI CROOKS Facility:[facility]1 Start: 07-26-2022 End: 07-26-2022 ambulatory [facility] Start: 07-25-2022 End: 07-25-2022 ambulatory NARENDRANATH LAKSHMIPATHY . Facility:[facility]1 Start: 07-20-2022 End: 07-21-2022 ambulatory NARENDRANATH LAKSHMIPATHY . Facility:[facility]1 Start: 07-19-2022 End: 07-20-[address] OVI CROOKS [facility] Other Start: 07-19-2022 Telephone encounter Ovi IBARRA [facility] Start: 07-17-2022 End: 07-17-2022 ambulatory Ovi Crooks Other [facility] Other Start: 07-17-2022 Patient encounter procedure Ovi Crooks [facility] Start: 06-20-2022 End: 06-20-[address] ELIZABETH JESSICA . Facility:[facility]1 Start: 06-07-2022 Telephone encounter Brina Crooks [facility] Start: 06-07-2022 End: 06-07-2022 ambulatory [facility] Other Start: 05-20-2022 Encounter for preprocedural laboratory examination [facility] Start: 05-15-2022 End: 05-16-2022 ambulatory [facility] Facility:[facility]1 Start: 05-15-2022 End: 05-16-2022 Encounter for preprocedural laboratory examination [facility] Facility:[facility]1 Start: 05-09-[address] ELIZABETH JESSICA [...] 01-18-2022 End: 01-18-2022 ambulatory Brina Morrissey Other [facility] Other Start: 01-18-2022 Office outpatient vi sit 15 minutes Brina GUERRERO [facility] Start: 01-09-2022 End: 01-10-2022 ambulatory MARY CRISTOBAL . Facility:H1 Start: 12-29-2021 End: 12-30-2021 ambulatory MARY CRISTOBAL . Facility:[facility]1 Start: 12-21-2021 End: 12-21-2021 ambulatory Brina Morrissey Other [facility] Other Start: 12-21-2021 Office outpatient ne w 30 minutes [facility] Start: 12-21-2021 End: 12-21-2021 Patient encounter procedure MD Brina Morrissey Work Phone: [facility] Start: 12-13-2021 End: 12-13-[address] ELIZABETH JESSICA . Facility: Start: 12-01-2021 End: 12-02-2021 ambulatory MARY CRISTOBAL . Facility: Start: 09-14-2021 End: 09-15-[address] OVI CROOKS Facility: Start: 08-17-2021 Adult health examination Brina Morrissey Other [facility] Other Start: 12-25-2017 End: 12-25-2017 Patient encounter Quinn Armendariz Facility:[facility] Start: 12-18-2017 End: 12-18-2017 Patient encounter Quinn Armendariz Facility:[facility] Procedures Date Procedure Procedure Detail Performing Clinician Start: 03-08-2024 Anaerobe Identificat ion Only Start: 03-08-2024 Blood Culture 1 Start: 07-26-2022 Follow-up visit Follow-up JEMAL MEDEIROS Start: 12-21-2021 Plain X-ray of bilat eral hands MD Brina Morirssey Work Phone: Start: 03-26-2018 Screening for osteoporosis Brina Morrissey Other Start: 08-05-2015 Screening for malign ant neoplasm of colon Brina Mrorissey Other Start: 08-05-2015 Screening mammography C oleliz Morrissey Other Cough 786.2 Brina Morrissey Depression screening Brina Morrissey Other Screening for malign ant neoplasm of breast Brina Morrissey Other Plan of Treatment Date Care Activity Detail Author Start: 09-08-2024 End: 09-08-2024 Patient encounter procedure 09/08/2024 11:00 AM EDT [facility] [address] [place] [address] Brigitte Yang, JAVON [address] [place], [place] [facility] [address] Start: 04-14-2024 End: 04-14-2024 [facility] Comment on above: Arrived Start: 12-30-2023 Influenza vaccination Influenz a Vaccine (#1) [facility] Comprehensive metabo lic 1999 panel - Serum or Plasma [facility] Comprehensive metabo lic 1999 panel - Serum or Plasma [facility] Comprehensive metabo lic 1999 panel - Serum or Plasma [facility] CT Chest [facility] Chest [facility] MG Breast - bilatera l Screening [facility] Immunizations Immunization Date Immunization Notes Care Provider Fa cility 02-25-2024 influenza, high dose seasonal, preservative-free [facility] 02-17-2022 influenza, high dose seasonal, preservative-free Ovi Crooks Other [facility] Other 02-17-2022 influenza virus vaccine, split virus (incl. purified surface antigen) Brina Morrissey Other [facility] Other 02-17-2022 influenza virus vaccine, unspecified formulation [facility] 04-04-2021 COVID-19 Vaccine Pfi zer - Documentation Purposes Only Ovi Crooks Other [facility] 01-17-2021 influenza virus vaccine, split virus (incl. purified surface antigen) Brina Carinehernan Other [facility] Other 01-17-2021 influenza virus vaccine, unspecified formulation [facility] 06-17-2020 COVID-19 Vaccine Pfi zer - Documentation Purposes Only Ovi Crooks Other [facility] 05-27-2020 COVID-19 Vaccine Moderna - Documentation Purposes Only Brina Morrissey Other [facility] 05-27-2020 COVID-19 Vaccine Pfi zer - Documentation Purposes Only Ovi Crooks Other [facility] 03-10-2020 influenza virus vaccine, split virus (incl. purified surface antigen) Brina Morrissey Other [facility] Other 03-10-2020 influenza virus vaccine, unspecified formulation [facility] 03-07-2019 influenza virus vaccine, split virus (incl. purified surface antigen) Brina Morrissey Other [facility] Other 03-07-2019 influenza virus vaccine, unspecified formulation [facility] 03-27-2018 influenza virus vaccine, split virus (incl. purified surface antigen) Brina Morrissey Other [facility] Other 03-27-2018 influenza virus vaccine, unspecified formulation [facility] 03-16-2017 pneumococcal Conjuga te, unspecified formulation; Translations: [Need for prophylactic vaccination against Streptococcus pneumoniae (pneumococcus)] Brina Morrissey Other [facility] Other 03-16-2017 pneumococcal polysaccharide vaccine, 23 valent Ovi Crooks Other [facility] 11-17-2016 pneumococcal conjuga te vaccine, 13 valent Ovi Crooks Other [facility] 02-09-2016 influenza virus vaccine, split virus (incl. purified surface antigen) Brina Morrissey Other [facility] Other 02-09-2016 influenza virus vaccine, unspecified formulation [facility] Payers Date Payer Category Payer Medicare [id number] 2016 [facility] BCBS [id number] 2016 Unknown BCBS BCBS [id number] 2016-Present [phone] [id number] [place], [place] [id number] [id number] 2007 Medicare [id number] 1959 Medicare [id number] 1959 Unknown [id number] 1942 Unknown [id number] 2.16.840.1.240278.3.579. 2.593 1942 Unknown [id number] 2.16.840.1.506877.3.579. 2.593 1942 Unknown [id number] 2.16.840.1.486406.3.579. 2.593 1942 Unknown [id number] 2.16.840.1.981457.3.579. 2.593 1942 Unknown [id number] 2.16.840.1.286797.3.579. 2.593 1942 Unknown [id number] 2.16.840.1.934657.3.579. 2.593 1942 Unknown [id number] 2.16.840.1.475310.3.579. 2.593 1942 Unknown [id number] 2.16.840.1.510668.3.579. 2.593 1942 Unknown [id number] 2.16.840.1.339986.3.579. 2.593 1942 Unknown [id number] 2.16.840.1.132352.3.579. 2.593 1942 Unknown [id number] 2.16.840.1.526894.3.579. 2.593 1942 Unknown [id number] 2.16.840.1.737677.3.579. 2.593 1942 Unknown [id number] 2.16.840.1.173885.3.579. 2.593 1942 Unknown [id number] 2.16.840.1.563502.3.579. 2.593 1942 Unknown [id number] 2.16.840.1.852835.3.579. 2.593 1942 Unknown [id number] 2.16.840.1.488946.3.579. 2.593 1942 Unknown [id number] 2.16.840.1.625391.3.579. 2.593 1942 Unknown [id number] 2.16.840.1.870274.3.579. 2.593 1942 Unknown [id number] 2.16.840.1.668899.3.579. 2.593 1942 Unknown [id number] 2.16.840.1.862995.3.579. 2.593 1942 Unknown [id number] 2.16.840.1.245988.3.579. 2.593 1942 Unknown [id number] 2.16.840.1.132885.3.579. 2.593 1942 Unknown [id number] 2.16.840.1.375705.3.579. 2.593 1942 Unknown [id number] 2.16.840.1.806646.3.579. 2.593 1942 Unknown [id number] 2.16.840.1.237935.3.579. 2.1259 1942 Unknown [id number] 2.16.840.1.503053.3.579. 2.1259 1942 Unknown [id number] 2.16.840.1.086149.3.579. 2.1259 1942 Unknown [id number] 2.16.840.1.330450.3.579. 2.1259 Social History Date Type Detail Facility Tobacco smoking stat us [facility] Unknown if ever smoked [facility] Work Phone: Start: 1940 Sex Assigned At Female F [facility] Start: 10-08-2023 End: 04-14-2024 Sex Assigned At [facility] Other Start: 06-28-2023 End: 06-28-2023 Tobacco smoking status SCIS Never smoked tobacco (finding) [facility] Start: 08-09-2023 Tobacco use and exposure Smokeless tobacco non-user [facility] Start: 10-08-2023 End: 04-14-2024 Alcoholic beverage intake Current drinker of alcohol (finding) [facility] Start: 10-08-2023 End: 04-14-2024 History of Social function [facility] How [...] Alcohol Comment caffeine: 1-2 cups per day [facility] Start: 1940 Sex assigned at Not on file N [facility] Start: 03-17-2024 End: 09-02-2024 Sex Female (finding) [facility] Clinical Notes 12-01-2021 to 08-25-2024 Note Date & Type Note Facility 08-25-2024 Evaluation note Diagnosis Onset Date Resolution ASHD (arteriosclerotic heart disease) acute August 25, 2024 9:55am Cerebral atherosclerosis acute August 25, 2024 9:55am Elevated cholesterol acute Apri l 2024 9:55am Elevation of levels of liver transaminase levels acute August 25, 2024 9:55am Lumbar spondylosis acute August 25, 2024 9:55am Major depressive disorder, recurrent, in full remission acute August 25, 2024 9:55am Mild persistent asthma without complication acute August 25, 2024 9:55am Multiple pulmonary nodules acute August 25, 2024 9:55am Obesity acute August 25 9:55am Obstructive sleep apnea acute A pril 2024 9:55am Primary hypertension acute Apri l 2024 9:55am Medicare annual wellness visit, subsequent noneactive August 25 9:55am Screening mammogram for breast cancer noneactive August 25, 2024 9:55am Arthritis of carpometacarpal (CMC) joint of left thumb acute September 02 10:11am Arthritis of carpometacarpal (CMC) joint of right thumb acute September 02 10:11am Carpal tunnel syndrome, left acute September 02, 2024 10:11am Carpal tunnel syndrome, right acute September 02, 2024 10:11am [facility] Work Phone: 1(495) 649-769810-28-2024 Evaluation note* Diagnosis Onset Date Resolution Status Admit Date ASHD (arteriosclerotic heart disease) acute February 24 9:54am Cerebral atherosclerosis acute February 25, 2024 9:54am Elevated cholesterol acute Octo moise 2023 9:54am Lumbar spondylosis acute Octobe r 2023 9:54am Major depressive disorder, recurrent, in full remission acute Jan felecia 2023 9:54am Mild persistent asthma witho ut complication acute February 24 9:54am Obesity acute February 25, 2024 9:54am Obstructive sleep apnea acute O ctober 2023 9:54am Primary hypertension acute 2023 9:54am ASHD (arteriosclerotic heart disease) acute March 17 10:03am Elevation of levels of liver transaminase levels acute February 10:03am Ground glass opacity present on imaging of lung acute February 10:03am Mild persistent asthma witho ut complication acute March 17 10:03am Pleuritic chest pain acute 2023 10:03am Pneumonia acute March 17, 2024 10:03am Primary hypertension acute 2023 10:03am Acute kidney injury superimposed on chronic kidney disease noneactive March 17 10:03am Arthritis of carpometacarpal (CMC) joint of left thumb acute 2024 8:46am Arthritis of carpometacarpal (CMC) joint of right thumb acute 2024 8:46am Carpal tunnel syndrome, left acute May 06, 2024 8:46am Carpal tunnel syndrome, right acute May 06, 2024 8:46am [facility] Work Phone: 1(464) 980-721809-03-2024 Evaluation note* Diagnosis Onset Date Resolution Status Admit Date Arthritis of carpometacarpal (CMC) joint of left thumb acute 2023 8:36am Arthritis of carpometacarpal (CMC) joint of right thumb acute 2023 8:36am Carpal tunnel syndrome, left acute January 01, 2024 8:36am Carpal tunnel syndrome, right acute January 01, 2024 8:36am ASHD (arteriosclerotic heart disease) acute February 24 9:54am Cerebral atherosclerosis acute February 25, 2024 9:54am Elevated cholesterol acute Jano moise 2023 9:54am Lumbar spondylosis acute Octobe r 2023 9:54am Major depressive disorder, recurrent, in full remission acute Jan felecia 2023 9:54am Mild persistent asthma witho ut complication acute February 24 9:54am Obesity acute February 25, 2024 9:54am Obstructive sleep apnea acute O ctober 2023 9:54am Primary hypertension acute Octo 2023 9:54am ASHD (arteriosclerotic heart disease) acute March 17 10:03am Chronic kidney disease acute No vember 2023 10:03am Elevation of levels of liver transaminase levels acute February 10:03am Ground glass opacity present on imaging of lung acute March 17 10:03am Mild persistent asthma witho ut complication acute March 17 10:03am Pleuritic chest pain acute 2023 10:03am Pneumonia acute March 17, 2024 10:03am Primary hypertension acute 2023 10:03am [facility] Work Phone: 1(551) 660-993801-19-2024 Quane received fax from [facility] Pain [facility] requesting patient hold her [...] asked them to contact Dr. Arriola for clearance.[facility]12-19-2023 Evaluation note* Encounter Date Diagnosis Assessment Notes Treatment Notes Treatment Clinical Notes Mar, Acute cerebral infarction (ICD-10 - I63.9) Mar, Cerebral atherosclerosis (ICD-10 - I67.2) [facility] Other 11-01-2023 Evaluation note* Encounter Date Diagnosis Assessment Notes Treatment Notes Treatment Clinical Notes Feb, Acute cerebral infarction (ICD-10 - I63.9) [facility] Other 11-01-2023 Evaluation note* Encounter Date Diagnosis Assessment Notes Treatment Notes Treatment Clinical Notes Feb, Bruit (ICD-10 - R09.89) [facility] Other 10-25-2023 Evaluation note* Encounter Date Diagnosis Assessment Notes Treatment Notes Treatment Clinical Notes Jan, Transient left leg weakness (ICD-10 - R29.898) Jan, Jerking movements of extremities (ICD-10 - R25.2) [facility] Other 10-24-2023 Evaluation note* Encounter Date Diagnosis [...] the risk for cerebrovascular and cardiovascular disease. [facility] Other 09-19-2023 Evaluation note* Encounter Date Diagnosis [...] Pain in left hand (ICD-10 - M79.642) [facility] Other 09-08-2023 NoteCardiology Clinic Note Chief Complaint: [...] in all muscle groups, (more content not included)...[facility]09-08-2023 NotePatient here for 6 mo follow up CAD, hypertension, and hyperlipidemia. Has not been taking aspirin because she doesn't like taking a lot of pills. Says she's only had chest pain once recently. Sees Dr. Smith and had CT chest in September. [facility]04-03-2023 Evaluation note* Encounter Date Diagnosis Assessment Notes Treatment Notes Treatment Clinical Notes Jul, Pulmonary nodule (ICD-10 - R91.1) RUL 10mm nodule - 06/3022Jul, Cough (ICD9-CM - 786.2) Jul, Mild persistent asthma without complication (ICD-10 - J45.30) [facility] Other 03-29-2023 NoteCardiology Clinic Note Chief Complaint: [...] motor function in all (more content not included)...[facility]03-23-2023 NoteCONSULTATION CONSULTATION DATE: 07/20/2022 TO: Dr. [...] be helping some of her pain symptoms.[id number]* Encounter Date Diagnosis Assessment Notes Treatment Notes Treatment Clinical Notes Jun, Pulmonary nodule (ICD-10 - R91.1) RUL 10mm nodule - 06/3022 [facility] Other 03-20-2023 Evaluation note* Encounter Date Diagnosis [...] mammogram for breast cancer (ICD-10 - Z12.31) [facility] Other 02-08-2023 Evaluation note* Encounter Date Diagnosis Assessment Notes Treatment Notes Treatment Clinical Notes May, ASHD (arterioscleroti c heart disease) (ICD-10 - I25.10) LHC: moderate, nonobstructive coronary disease - 05/2022 [facility] Other 02-08-2023 NotePatient here for follow up [...] light-headedness. All other systems reviewed and are negative.[facility] 06-07-2022 NoteCardiology Clinic Note Chief Complaint: [...] Value Ventricular Rate 53 Atrial Rate 53 MT Interval 186 QRS DURATION 142 QT Interval 472 QTC CALCULATION(BAZETT) 442 P Madison 29 R-Madison -35 T Wave Madison 59 Impression Sinus bradycardia Left axis deviation Left bundle branch block Abnormal ECG When compared with ECG of 30-NOV-2008 12:01, Premature atrial comple (more content not included)...[facility]10-27-2022 NoteCONSULTATION CONSULTATION DATE: 02/23/2022 This is [...] will be followed in the clinic thereafter.[id number] Evaluation note* Encounter Date Diagnosis Assessment Notes [...] in both duran ds (ICD-10 - R20.0) [facility] Other 09-01-2022 NoteCONSULTATION CONSULTATION DATE: 12/29/2021 HISTORY [...] patient is in agreement to move forward.[id number] Evaluation note* Encounter Date Diagnosis Assessment Notes [...] in both duran ds (ICD-10 - R20.0) [facility] Other 08-04-2022 NoteCONSULTATION CONSULTATION DATE: 12/01/2021 HISTORY [...] followed up in the office post procedure.[facility] noteNo assessment information availableOhiohealth Work Phone: Evaluation noteNo InformationNort [employer] Other Evaluation note* Diagnosis Onset Date Resolution [...] noneactive Screening mammogram for breast cancer noneactive [facility] Work Phone: Evaluation note* Diagnosis Onset Date Resolution Status Arthritis of carpometacarpal (CMC) joint of left thumb acute Arthritis of carpometacarpal (CMC) joint of right thum b acute Carpal tunnel syndrome, left acute Carpal tunnel syndrome, right acute [facility] Work Phone: Evaluation note* Diagnosis LPRD (laryngopharyngeal reflux disease) Acute laryngitis, without mention of obstruction documented in [facility] encounter [facility]* Diagnosis Onset Date Resolution [...] sleep apnea acut e Primary hypertension acute [facility] Work Phone: Evaluation note* Diagnosis Obstructive sleep apnea syndrome- Primary Obstructive sleep apnea (adult) (pediatric) Cerebral infarction, left hemisphere (CMS/HCC) Unspecified cerebral artery occlusion with cerebral infarction Hypoxia Hypoxemia Sleep deprivation Problems related to lack of adequate sleep documented in this encounter [facility]* Diagnosis Cerebral infarction, left hemisphere (CMS/HCC)- Primary Unspecified cerebral artery occlusion with cerebral infarction documented in this encounter [facility] HealthcareEvaluation note* Diagnosis Onset Date Resolution Status Admit Date ASHD (arteriosclerotic heart disease) acute August 25, 2024 9:55am Cerebral atherosclerosis acute August 25, 2024 9:55am Elevated cholesterol acute Apri l 2024 9:55am Elevation of levels of liver transaminase levels acute August 25, 2024 9:55am Lumbar spondylosis acute August 25, 2024 9:55am Major depressive disorder, recurrent, in full remission acute Apr il 2024 9:55am Mild persistent asthma witho ut complication acute August 25, 2024 9:55am Multiple pulmonary nodules acute August 25, 2024 9:55am Obesity acute August 25 9:55am Obstructive sleep apnea acute A pril 2024 9:55am Primary hypertension acute Apri 2024 9:55am Medicare annual wellness vis it, subsequent noneactive August 25, 2024 9:55am Screening mammogram for jay [facility] cancer noneactive August 25, 2024 9:55am [facility] Work Phone: Hiskmvd general Narrative - Reported* Type Description Date Medical History Esophageal reflux Medical History seasonal allergies Medical History DIVINA Medical History Hypertension Surgical History APPENEDECTOMY Surgical History HYSTERECTOMY Surgical History SINUS Surgical History LEFT HAND Surgical History HEART CATH Surgical History CHOLECYSTECTOMY [facility] Other Hisixmo general Narrative - Reported* Type Description Date Medical History Esophageal reflux Medical History seasonal allergies Medical History DIVINA Medical History Hypertension Medical History ASHD (arteriosclerotic heart dis ease) Surgical History APPENEDECTOMY Surgical History HYSTERECTOMY Surgical History SINUS Surgical History LEFT HAND Surgical History HEART CATH Surgical History CHOLECYSTECTOMY Surgical History cardiac catheterization 06/07/22 [facility] Other Hisqher general Narrative - Reported* Type Description Date [...] catheterization 06/07/22 Hospitalization History SEE SURGICAL HX [facility] Other Summary Purpose Family History Relationship Condition Age at Onset Recorded Date/T urvashi sister Hypertension Unknown Diabetes mellitus Unknown Advance Directives Advance Directive Response Recorded Date/ Time Advance Directives No December 21, 2021 12:20pm Advance Directive Response Recorded Date/ Time Advance Directives No December 21, 2021 11:20am Chief Complaint and Reason for Visit Chief [...] without complication Obstructive sleep apnea Primary hypertension Chief Complaint Admit Date OP SP BILAT HAND PAIN December 31 8:36am 6 Month Check Up February 25, 2024 9 :54am CC Adult Risk Stratification January 10:02am Amb Documentation March 10, 2024 1:48pm CC Adult Risk Stratification March 102023 2:07pm IP NATHALIE, hypokalemia, chest wall pain-HIG H RISK March 17, 2024 10:03am Reason for Visit Admit Date Arthritis of carpometacarpal (CMC) joint of left thumb January 01, 2024 8:36am Arthritis of carpometacarpal (CMC) joint of right thumb January 01, 2024 8:36am Carpal tunnel syndrome, left December 312023 8:36am Carpal tunnel syndrome, right January 01, 2024 8:36am ASHD (arteriosclerotic heart disease) Oc tober 2023 9:54am Cerebral atherosclerosis February 24 024 9:54am Elevated cholesterol February 25, 2024 9:54am Lumbar spondylosis February 25, 2024 9 :54am Major depressive disorder, recurrent, in full remission February 25, 2024 9:54am Mild persistent asthma without complicat ion February 25, 2024 9:54am Obesity February 25, 2024 9 :54am Obstructive sleep apnea February 24 9:54am Primary hypertension February 25, 2024 9:54am ASHD (arteriosclerotic heart disease) No vember 2023 10:03am Chronic kidney disease March 17 10:03am Elevation of levels of liver transaminas e levels March 17, 2024 10:03am Ground glass opacity present on imaging of lung March 17, 2024 10:03am Mild persistent asthma without complicat ion March 17, 2024 10:03am Pleuritic chest pain March 17, 2024 10:03am Pneumonia March 17, 2024 10:03am Primary hypertension March 17, 2024 10:03am Chief Complaint Admit Date 6 Month Check Up February 25, 2024 9 :54am CC Adult Risk Stratification January 10:02am Amb Documentation March 10, 2024 1:48pm CC Adult Risk Stratification March 102023 2:07pm IP NATHALIE, hypokalemia, chest wall pain-HIG H RISK March 17, 2024 10:03am 4 MONTHS May 06, 2024 8: 46am Reason for Visit Admit Date ASHD (arteriosclerotic heart disease) Oc tober 2023 9:54am Cerebral atherosclerosis February 24 024 9:54am Elevated cholesterol February 25, 2024 9:54am Lumbar spondylosis February 25, 2024 9 :54am Major depressive disorder, recurrent, in full remission February 25, 2024 9:54am Mild persistent asthma without complicat ion February 25, 2024 9:54am Obesity February 25, 2024 9 :54am Obstructive sleep apnea February 24 9:54am Primary hypertension February 25, 2024 9:54am ASHD (arteriosclerotic heart disease) No vember 2023 10:03am Elevation of levels of liver transaminas e levels March 17, 2024 10:03am Ground glass opacity present on imaging of lung March 17, 2024 10:03am Mild persistent asthma without complicat ion March 17, 2024 10:03am Pleuritic chest pain March 17, 2024 10:03am Pneumonia March 17, 2024 10:03am Primary hypertension March 17, 2024 10:03am Acute kidney injury superimp osed on chronic kidney disease March 17, 2024 10:03am Arthritis of carpometacarpal (CMC) joint of left thumb May 06, 2024 8:46am Arthritis of carpometacarpal (CMC) joint of right thumb May 06, 2024 8:46am Carpal tunnel syndrome, left April 8:46am Carpal tunnel syndrome, right April 8:46am Chief Complaint Admit Date 6 month f/u-HIGH RISK August 25, 2024 9 :55am Reason for Visit Admit Date ASHD (arteriosclerotic heart disease) Ap [facility] 2024 9:55am Cerebral atherosclerosis August 25 9:55am Elevated cholesterol August 25, 2024 9: 55am Elevation of levels of liver transaminas e levels August 25, 2024 9:55am Lumbar spondylosis August 25, 2024 9:5 5am Major depressive disorder, recurrent, in full remission August 25, 2024 9:55am Mild persistent asthma without complicat ion August 25, 2024 9:55am Multiple pulmonary nodules August 25, 2 025 9:55am Obesity August 25, 2024 9:5 5am Obstructive sleep apnea August 25, 2024 9:55am Primary hypertension August 25, 2024 9: 55am Medicare annual wellness visit, subseque nt August 25, 2024 9:55am Screening mammogram for breast cancer [facility] 2024 9:55am Chief Complaint Admit Date 6 month f/u-HIGH RISK August 25, 2024 9 :55am 3 MONTHS September 02, 2024 10:11a m Reason for Visit Admit Date ASHD (arteriosclerotic heart disease) Ap [facility] 2024 9:55am Cerebral atherosclerosis August 25 9:55am Elevated cholesterol August 25, 2024 9: 55am Elevation of levels of liver transaminas e levels August 25, 2024 9:55am Lumbar spondylosis August 25, 2024 9:5 5am Major depressive disorder, recurrent, in full remission August 25, 2024 9:55am Mild persistent asthma without complicat ion August 25, 2024 9:55am Multiple pulmonary nodules August 25, 025 9:55am Obesity August 25, 2024 9:5 5am Obstructive sleep apnea August 25, 2024 9:55am Primary hypertension August 25, 2024 9: 55am Medicare annual wellness visit, subseque nt August 25, 2024 9:55am Screening mammogram for breast cancer Ap ril 2024 9:55am Arthritis of carpometacarpal (CMC) joint of left thumb September 02, 2024 10:11am Arthritis of carpometacarpal (CMC) joint of right thumb September 02, 2024 10:11am Carpal tunnel syndrome, left September 02 10:11am Carpal tunnel syndrome, right September 02 025 10:11am Additional Source Comments INFORMATION SOURCE (unrecogn ized section and content) DATE CREATED AUTHOR 12/29/2017 [facility] DATE CREATED AUTHOR AUTHOR'S ORGANIZ ATION 12/25/2021 [facility] DATE CREATED AUTHOR AUTHOR'S ORGANIZ ATION 09/08/2022 [facility] DATE CREATED AUTHOR AUTHOR'S ORGANIZ ATION 05/19/2023 [facility] DATE CREATED AUTHOR AUTHOR'S ORGANIZ ATION 04/16/2024 [facility] EPIC Care Teams (unrecognized [...] July 20, 2023 End: July 20, 2023 Film Examiner Relationship Specialty Start Date End Date Ovi Crooks MD [address] [place] [id number] PCP - General Internal Medicine 07/10/23 Team Status: Active Member Role Status Dates Ovi Crooks DO Primary Care Provide r, Attending Provider Active Start: February 27, 2024 Team Status: Active Member Role Status Dates Ovi Crooks DO Primary Care Provider Active Start: March 08, 2024 Marin Chase MD Attending Provider Active St art: March 08, 2024 Team Status: Active Member Role Status Dates Ovi Crooks DO Primary Care Provider Active Start: March 09, 2024 Tyrone Rosas MD Attending Provider Active Sta rt: March 09, 2024 Team Status: Active Member Role Status Dates Ovi Crooks DO Primary Care Provider Active Start: March 10, 2024 Aditi Daniel CMA Attending Provider Active Start: March 10, 2024 Team Status: Active Member Role Status Dates Ovi Crooks DO Primary Care Provide r, Attending Provider Active Start: March 10, 2024 Team Status: Inactive Member Role Status Dates Ovi Crooks DO Primary Care Provide r, Attending Provider Active Start: March 17, 2024 End: March 17, 2024 Film Examiner Relationship Specialty Start Date End Date Ovi Crooks MD [address] [place] [id number] PCP - General Internal Medicine 07/10/23 Madhavi Arriola DO [address] [place] [address] Referring Physician Neurology 04/14/24 Film Examiner Relationship Specialty Start Date End Date Ovi Crooks MD [address] [place] [id number] PCP - General Internal Medicine 07/10/23 Madhavi Arriola DO [address] [place] [address] Referring Physician Neurology 04/14/24 Film Examiner Relationship Specialty Start Date End Date Ovi Crooks MD [address] [place] [id number] PCP - General Internal Medicine 07/10/23 Team Status: Inactive Member Role Status Dates Ovi Crooks DO Primary Care Provider Active Start: May 06, 2024 End: May 06, 2024 Brina Morrissey MD Attending Provider Active Start: May 06, 2024 End: May 06, 2024 Team Status: Inactive Member Role Status Dates Ovi Crooks DO Primary Care Provide r, Attending Provider Active Start: August 25, 2024 End: August 25, 2024 Team Status: Inactive Member Role Status Dates Ovi Crooks DO Primary Care Provider Active Start: September 02, 2024 End: September 02, 2024 Brina Morrissey MD Attending Provider Active Start: September 02, 2024 End: September 02, 2024 Goals (unrecognized section and content) Goals [...] BE BASED ON THE PRIMARY CLINICAL RECORDS. [employer] provides no warranty or guarantee of the accuracy or completeness of information in this document.
[2024-09-08 08:07] VITALS: BP 123/56; PULSE 58; TEMP 36.7; O2SAT 95
[2024-09-08 08:59] VITALS: BP 134/66; BP 144/66; PULSE 59; PULSE 60; O2SAT 96; O2SAT 97
--- NOTE | 2024-09-08 09:02 | P.ON_ITS ---
Date of procedure: 09/08/24 Pre-op diagnosis: Pain due to lumbar stenosis with neurogenic claudication Post-op diagnosis: same as pre-op Procedure: Procedure: Right L4-5, L5-S1 transforaminal epidural steroid injection Medications: Bupivacaine 0.25% 2cc, lidocaine 2% 1cc, depomedrol 80mg The patient was seen and examined in the preoperative holding area.? Informed consent was obtained and placed on the chart.? Patient was brought to the medical procedure unit and placed in the prone position where a timeout was completed verifying the correct patient, procedure site, position, and planned special equipment using sterile aseptic technique.? Under direct fluoroscopic visualization a 25-gauge Quincke tipped spinal needle was advanced to the designated neural foramen where contrast dye was injected to show adequate spread.? The needle was inserted at level right L4-5. There was no evidence of vascular or adverse uptake.? Epidural spread was appreciated.? The above- mentioned injectate was then placed in a 1.5 mL aliquot preceded by negative aspiration.? The needle was removed. The needle was inserted and the procedure repeated at level right L5-S1.? The surgery site was covered.? Patient was taken to the postprocedural recovery area and monitored for an appropriate length of time before found suitable for discharge in the accompaniment of a responsible adult. Anesthesia: Local Surgeon: Isaac Guy Pathology: none sent Condition: stable Disposition: no change
[2024-09-08] MEDS: 0.9 % SODIUM CHLORIDE 10 ML SYRINGE - SALINE FLUSH INJ (09:03)
[2024-09-08] MEDS: LIDOCAINE HCL 2% 400 MG/20 ML MDV INJ (09:03)
[2024-09-08] MEDS: IOHEXOL 240 MG/ML - 10 ML VIAL 24 MG INJ (09:03)
[2024-09-08] MEDS: BUPIVACAINE HCL 0.25% PF 25 MG/10 ML VIAL INJ (09:03)
[2024-09-08] MEDS: METHYLPREDNISOLONE ACETATE 80 MG/ML VIAL INJ (09:04)
== END 2024-09-08 09:07 | disposition home or self-care (01) ==
LOC: SURGOUT 07:47
PROVIDERS: PCP Internal Medicine; Visit Provider Anesthesiology
DX: M48.062 Spinal stenosis, lumbar region with neurogenic claudication (principal); M54.50 Low back pain, unspecified
CPT/HCPCS: 64483; 64484; J0665; J1010; Q9966

== ENCOUNTER 2024-09-17 08:35 | Outpatient (OUT) | payer MEDICARE, BC, SELFPAY ==
--- OUTSIDE RECORDS SUMMARY | 2024-09-17 08:38 | XMS_ITS | CCD ---
Author Organization [facility] Care Team Providers Care Charge Entry Specialist Name Role Phone Zahler, Quinn Unavailable Unavailable Zahler, Quinn Unavailable Unavailable Zahler, Quinn Unavailable Unavailable OVI CROOKS~[phone] UNKNOWN Unavailable Unavailable Zahler, Quinn Unavailable Unavailable Zahler, Quinn Unavailable Unavailable Erliner, Quinn Unavailable Unavailable OVI CROOKS~[phone] UNKNOWN Unavailable Unavailable MD Brina Morrissey Attending [...] JESSICA ., DR ELIZABETH Cerna Attending Unavailable JSESICA ., DR ELIZABETH Cerna Admitting Unavailable BALL, [...] (1 source) Midazolam Drug Allergy 7 [facility] (6 sources) Midazolam; Translations: [MIDAZOLAM] Drug Allergy 3 Nausea And Vomiting 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) drug therapy] Episodic Other and ill-defined [...] 04-28-2022 Episodic Other aftercare (1 source) Other watermaster (current) drug therapy; Translations: [OTH JAIL CURRENT DRUG THERAPY] Onset: 09-20-2021 Episodic Other aftercare (5 sources) Long-term current use of inhaled steroid; 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] Onset: 07-26-2022 [...] Basophils (Bld) [#/Vol] Automated basophil count 0.0-0.1 [facility] Basophils/100 WBC Auto (Bld) on 03-09-2024 Basophils/100 WBC (Bld) Automated basophil % Low 0.2-2.0 [facility] Eosinophils/100 WBC Auto (Bl d)on 03-09-2024 Eosinophils/100 WBC (Bld) Automated eosinophil % Low 0.9-7.0 [facility] Erythrocyte distribution wid th Auto (RBC) [Ratio]on 03-09-2024 Erythrocyte distribution width (RBC) [Ratio] Erythrocyte distribution width [Ratio] by Automated count 11.0-15.0 [facility] Estimated glomerular filtrat ion rate (GFR) non- Americanon 03-09-2024 GFR/1.73 sq M.predicted among non-blacks MDRD (S/P/Bld) [Vol rate/Area] Estimated glomerular filtration rate (GFR) non- Low >=60 mL/min/1.73m 2 [facility] Hematocrit Auto (Bld) [Volum e fraction]on 03-09-2024 Hematocrit (Bld) [Volume fraction] Hematocrit [Volume Fraction] of Blood by Automated count Low 36.0-48.0 [facility] Hemoglobin [Mass/volume] in Bloodon 03-09-2024 Hemoglobin (Bld) [Mass/Vol] Hemoglobin [Mass/volume] in Blood Low 12.0-16.0 [facility] Laboratory - Chemistry and C hemistry - challengeon 03-09-2024 Calcium [Mass/Vol] 8.9 mg/dL 8.5-10.1 [facility] Chloride [Moles/Vol] 103 mmol/L 98-107 [facility] CO2 [Moles/Vol] 21.8 mmol/L 21.0-32.0 [facility] Creatinine [Mass/Vol] 1.74 mg/dL High 0.55-1.02 [facility] GFR/1.73 sq M.predicted MDRD (S/P/Bld) [Vol rate/Area] 34 mL/min/{1.73_m2} Low >=60 mL/min/1.73m 2 [facility] Glucose [Mass/Vol] 164 mg/dL High 74-106 [facility] Potassium [Moles/Vol] 2.9 mmol/L Critically low 3.5-5.1 [facility] Comment on above: RESULTS CALLED TO KAROL VAZQUEZ RN @BY Cecile San [phone] Sodium [Moles/Vol] 141 mmol/L 136-145 [facility] Urea nitrogen [Mass/Vol] 21.0 mg/dL High 7.0-18.0 [facility] Urea nitrogen/Creatinine [Mass ratio] 12.1 mg/mg [facility] Laboratory - Hematology and Cell countson 03-09-2024 Immature granulocytes/100 WBC (Bld) 0.7 % High 0.0-0.5 [facility] Leukocytes [#/volume] correc jonnie for nucleated erythrocytes in Blood by Automated counon 03-09-2024 WBC corrected for nucl RBC Auto (Bld) [#/Vol] Leukocytes [#/volume] corrected for nucleated erythrocytes in Blood by Automated coun 4.0-11.0 [facility] Lymphocytes Auto (Bld) [#/Vo l]on 03-09-2024 Lymphocytes (Bld) [#/Vol] Lymphocytes [#/volume] in Blood by Automated count 1.2-3.8 [facility] Lymphocytes/100 WBC Auto (Bl d)on 03-09-2024 Lymphocytes/100 WBC (Bld) Lymphocytes/100 leukocytes in Blood by Automated count Low 20.5-60.0 [facility] MCH Auto (RBC) [Entitic mass ]on 03-09-2024 MCH (RBC) [Entitic mass] MCH [Entitic mass] by Automated count 26.7-34.0 [facility] MCHC Auto (RBC) [Mass/Vol]on 03-09-2024 MCHC (RBC) [Mass/Vol] MCHC [Mass/volume] by Automated count 29.9-35.2 [facility] MCV Auto (RBC) [Entitic vol] on 03-09-2024 MCV (RBC) [Entitic vol] MCV [Entitic volume] by Automated count 81.0-99.0 [facility] Monocytes Auto (Bld) [#/Vol] on 03-09-2024 Monocytes (Bld) [#/Vol] Automated blood monocyte count 0.3-0.8 [facility] Monocytes/100 WBC Auto (Bld) on 03-09-2024 Monocytes/100 WBC (Bld) Automated monocyte % 1.7-12.0 [facility] Neutrophils Auto (Bld) [#/Vo l]on 03-09-2024 Neutrophils (Bld) [#/Vol] Neutrophils [#/volume] in Blood by Automated count High 1.4-6.5 [facility] Neutrophils/100 WBC Auto (Bl d)on 03-09-2024 Neutrophils/100 WBC (Bld) Automated neutrophil % High 43.0-75.0 [facility] No Panel Informationon 03-09 Eosinophils # (Auto) 0.0 10 3/uL 0.0-0.7 [facility] Immature Granulocyte # (Auto) 0.06 10 3/uL High 0.00-0.03 [facility] Platelet mean volume Auto (B ld) [Entitic vol]on 03-09-2024 Platelet mean volume (Bld) [Entitic vol] Platelet mean volume [Entitic volume] in Blood by Automated count 9.5-13.5 [facility] Platelets Auto (Bld) [#/Vol] on 03-09-2024 Platelets (Bld) [#/Vol] Platelets [#/volume] in Blood by Automated count 150-450 [facility] RBC Auto (Bld) [#/Vol]on RBC (Bld) [#/Vol] Erythrocytes [#/volume] in Blood by Automated count Low 4.20-5.40 [facility] Serum or plasma anion gap de terminationon 03-09-2024 Anion gap [Moles/Vol] Serum or plasma an ion gap determination [facility] Basophils Auto (Bld) [#/Vol] on 03-08-2024 Basophils (Bld) [#/Vol] Automated basophil count 0.0-0.1 [facility] Basophils/100 WBC Auto (Bld) on 03-08-2024 Basophils/100 WBC (Bld) Automated basophil % 0.2-2.0 [facility] Eosinophils/100 WBC Auto (Bl d)on 03-08-2024 Eosinophils/100 WBC (Bld) Automated eosinophil % 0.9-7.0 [facility] Erythrocyte distribution wid th Auto (RBC) [Ratio]on 03-08-2024 Erythrocyte distribution width (RBC) [Ratio] Erythrocyte distribution width [Ratio] by Automated count 11.0-15.0 [facility] Estimated glomerular filtrat ion rate (GFR) non- Americanon 03-08-2024 GFR/1.73 sq M.predicted among non-blacks MDRD (S/P/Bld) [Vol rate/Area] Estimated glomerular filtration rate (GFR) non- Low >=60 mL/min/1.73m 2 [facility] Fibrin D-dimer [Presence] in Platelet poor plasma by Latex agglutinationon 03-08-2024 Fibrin D-dimer LA Ql (PPP) Fibrin D-dimer [Presence] in Platelet poor plasma by Latex agglutination Critically high <=0.59 [facility] Comment on above: RESULTS CALLED TO CHONG [...] [Mass/Vol] Serum globulin measurement by calculation (mass/volume) [facility] Hematocrit Auto (Bld) [Volum e fraction]on 03-08-2024 Hematocrit (Bld) [Volume fraction] Hematocrit [Volume Fraction] of Blood by Automated count Low 36.0-48.0 [facility] Hemoglobin [Mass/volume] in Bloodon 03-08-2024 Hemoglobin (Bld) [Mass/Vol] Hemoglobin [Mass/volume] in Blood Low 12.0-16.0 [facility] Laboratory - Chemistry and C hemistry - challengeon 03-08-2024 Albumin [Mass/Vol] 3.2 g/dL Low 3.4-5.0 [facility] ALP [Catalytic activity/Vol] 89 U/L 46-116 [facility] ALT [Catalytic activity/Vol] 156 U/L High 14-59 [facility] AST [Catalytic activity/Vol] 178 U/L High 15-37 [facility] Bilirubin [Mass/Vol] 1.4 mg/dL High 0.2-1.0 [facility] Bilirubin.direct [Mass/Vol] 0.4 mg/dL High 0.0-0.2 [facility] Lactate [Moles/Vol] 1.2 mmol/L 0.4-2.0 [facility] Lipase [Catalytic activity/Vol] 26.0 U/L 16.0-77.0 [facility] Magnesium [Mass/Vol] 1.9 mg/dL 1.8-2.4 [facility] Natriuretic peptide B (Bld) [Mass/Vol] 697.0 pg/mL <=1800.0 [facility] Protein [Mass/Vol] 6.3 g/dL Low 6.4-8.2 [facility] Bilirubin Ql (U) Negative NEGATIVE [facility] Glucose (U) [Mass/Vol] Negative NEGATIVE [facility] Ketones Ql (U) Negative NEGATIVE [facility] pH (U) 7.0 [pH] 5.0-9.0 [facility] Specific gravity (U) [Rel density] 1.010 1.005-1.025 [facility] Urobilinogen Qn (U) 1.0 {Nora'U}/dL 0.2-1.0 [facility] Calcium [Mass/Vol] 9.0 mg/dL 8.5-10.1 [facility] Chloride [Moles/Vol] 106 mmol/L 98-107 [facility] CO2 [Moles/Vol] 29.0 mmol/L 21.0-32.0 [facility] Creatinine [Mass/Vol] 1.25 mg/dL High 0.55-1.02 [facility] GFR/1.73 sq M.predicted MDRD (S/P/Bld) [Vol rate/Area] 50 mL/min/{1.73_m2} Low >=60 mL/min/1.73m 2 [facility] Glucose [Mass/Vol] 111 mg/dL High 74-106 [facility] Potassium [Moles/Vol] 3.1 mmol/L Low 3.5-5.1 [facility] Sodium [Moles/Vol] 145 mmol/L 136-145 [facility] Urea nitrogen [Mass/Vol] 18.0 mg/dL 7.0-18.0 [facility] Urea nitrogen/Creatinine [Mass ratio] 14.4 mg/mg [facility] Laboratory - Hematology and Cell countson 03-08-2024 Immature granulocytes/100 WBC (Bld) 0.3 % 0.0-0.5 [facility] Laboratory - Microbiology an d Antimicrobial susceptibilityon 03-08-2024 SARS-CoV-2 (COVID-19) RNA RADHA+probe Ql (Unsp spec) Negative NEGATIVE [facility] Comment on above: This test has not [...] Ql (Vag fld) Not detected NOT DETECTE [facility] Laboratory - Specimen inform ationon 03-08-2024 Appearance (U) CLEAR CLEAR [facility] Color (U) LT. YELLOW YELLOW [facility] Laboratory - Urinalysison Hyaline casts LM Ql (Urine sed) RARE [facility] Leukocyte esterase Test strip Ql (U) Negative NEGATIVE [facility] Mucus Ql (Urine sed) TRACE Abnormal NONE SEEN [facility] Nitrite Ql (U) Negative NEGATIVE [facility] Protein Ql (U) Negative NEG/TRACE [facility] Leukocytes [#/volume] correc jonnie for nucleated erythrocytes in Blood by Automated counon 03-08-2024 WBC corrected for nucl RBC Auto (Bld) [#/Vol] Leukocytes [#/volume] corrected for nucleated erythrocytes in Blood by Automated coun 4.0-11.0 [facility] Lymphocytes Auto (Bld) [#/Vo l]on 03-08-2024 Lymphocytes (Bld) [#/Vol] Lymphocytes [#/volume] in Blood by Automated count 1.2-3.8 [facility] Lymphocytes/100 WBC Auto (Bl d)on 03-08-2024 Lymphocytes/100 WBC (Bld) Lymphocytes/100 leukocytes in Blood by Automated count Low 20.5-60.0 [facility] MCH Auto (RBC) [Entitic mass ]on 03-08-2024 MCH (RBC) [Entitic mass] MCH [Entitic mass] by Automated count 26.7-34.0 [facility] MCHC Auto (RBC) [Mass/Vol]on 03-08-2024 MCHC (RBC) [Mass/Vol] MCHC [Mass/volume] by Automated count 29.9-35.2 [facility] MCV Auto (RBC) [Entitic vol] on 03-08-2024 MCV (RBC) [Entitic vol] MCV [Entitic volume] by Automated count 81.0-99.0 [facility] Monocytes Auto (Bld) [#/Vol] on 03-08-2024 Monocytes (Bld) [#/Vol] Automated blood monocyte count 0.3-0.8 [facility] Monocytes/100 WBC Auto (Bld) on 03-08-2024 Monocytes/100 WBC (Bld) Automated monocyte % 1.7-12.0 [facility] Neutrophils Auto (Bld) [#/Vo l]on 03-08-2024 Neutrophils (Bld) [#/Vol] Neutrophils [#/volume] in Blood by Automated count High 1.4-6.5 [facility] Neutrophils/100 WBC Auto (Bl d)on 03-08-2024 Neutrophils/100 WBC (Bld) Automated neutrophil % 43.0-75.0 [facility] No Panel Informationon 03-08 Troponin I High Sensitivity 9.3 pg/mL 4.0-51.3 [facility] Comment on above: CUT-OFF POINTS HAVE BEEN [...] INFORMATION. Bedside Influenza Type A Antigen Negative [facility] Comment on above: Negative for Flu A p rotein antigen. Infection due to Flu Acannot be ruled out. Flu A antigen in the sample may bebelow the detection limit of the test. Bedside Influenza Type B Antigen Negative [facility] Comment on above: Negative for Flu B p rotein antigen. Infection due to Flu Bcannot be ruled out. Flu B antigen in the sample may bebelow the detection limit of the test. Urine Bacteria TRACE #/HPF Abnormal NONE SEEN [facility] Occult Blood TRACE-L NEGATIVE [facility] Urine Other Casts SEEN #/LPF Abnormal NONE SEEN [facility] Urine Other Crystals None Seen #/HPF None Seen [facility] Urine RBC 0-2 #/HPF 0-2 [facility] Urine Squamous Epithelial Cells RARE #/LPF NONE/RARE [facility] Urine WBC 0-2 #/HPF Abnormal NONE SEEN [facility] A.calcoaceticus-fadi dean cmplx PCR Not detected NOT DETECTE [facility] Bacteroides fragilis (PCR) Not detected NOT DETECTE [facility] Blood Culture Source Blood [facility] Tawnya albicans (PCR) Not detected NOT DETECTE [facility] Tawnya auris (PCR) Not detected NOT DETECTE [facility] Tawnya glabrata (PCR) Not detected NOT DETECTE [facility] Tawnya krusei (PCR) Not detected NOT DETECTE [facility] Tawnya parapsilosis (PCR) Not detected NOT DETECTE [facility] Tawnya tropicalis (PCR) Not detected NOT DETECTE [facility] Crypto neoformans/gattii (PCR)(LAB) Not detected NOT DETECTE [facility] CTX-M ESBL (PCR) NOT APPLICABLE NOT DETECTE [facility] Enterobacter cloacae complex (PCR) Not detected NOT DETECTE [facility] Enterobacterales (PCR) Not detected NOT DETECTE [facility] Enterococcus faecalis PCR Not detected NOT DETECTE [facility] Enterococcus faecium PCR Not detected NOT DETECTE [facility] Escherichia coli Result Not detected NOT DETECTE [facility] Haemophilus influenzae DNA Not detected NOT DETECTE [facility] IMP (blaIMP) Carbap Res Gene (PCR) NOT APPLICABLE NOT DETECTE [facility] Klebsiella aerogenes (PCR) Not detected NOT DETECTE [facility] Klebsiella oxytoca (PCR) Not detected NOT DETECTE [facility] Klebsiella pneumoniae group (PCR) Not detected NOT DETECTE [facility] KPC (blaKPC) Detection (PCR) NOT APPLICABLE NOT DETECTE [facility] Listeria monocytogenes (PCR) Not detected NOT DETECTE [facility] MCR-1 Resistance Gene NOT APPLICABLE NOT DETECT E [facility] mecA/C & MREJ Antimicrob Resist Gen NOT APPLICABLE NOT DETECTE [facility] mecA/C-Methicillin Resistance Gene NOT APPLICABLE NOT DETECTE [facility] NDM (blaNDM) Detection (PCR) NOT APPLICABLE NOT DETECTE [facility] Neisseria meningitidis (PCR) Not detected NOT DETECTE [facility] Proteus species (PCR) Not detected NOT DETECTE [facility] Pseudomonas aeruginosa (PCR) Not detected NOT DETECTE [facility] Salmonella spp. (PCR) Not detected NOT DETECTE [facility] Serratia marcescens (PCR) Not detected NOT DETECTE [facility] Staphylococcus aureus (PCR)(LAB) Not detected NOT DETECTE [facility] Staphylococcus epidermidis (PCR) Not detected NOT DETECTE [facility] Staphylococcus lugdunensis (TEM-PCR Not detected NOT DETECTE [facility] Staphylococcus species (PCR) Not detected NOT DETECTE [facility] Stenotroph. maltophilia (PCR) Not detected NOT DETECTE [facility] Streptococcus pneumoniae (PCR) Not detected NOT DETECTE [facility] Streptococcus pyogenes (PCR)(LAB) Not detected NOT DETECTE [facility] Streptococcus species (PCR) Not detected NOT DETECTE [facility] Syn OXA-48-like Carb Res Gene (PCR) NOT APPLICABLE NOT DETECTE [facility] Giovanny/B-Vancomycin Resistance Genes NOT APPLICABLE NOT DETECTE [facility] VIM (blaVIM) Carbap Res Gene (PCR) NOT APPLICABLE NOT DETECTE [facility] Eosinophils # (Auto) 0.1 10 3/uL 0.0-0.7 [facility] Immature Granulocyte # (Auto) 0.03 10 3/uL 0.00-0.03 [facility] No Panel InformationOrdered By: Rich Carcamo on 03-08-2024 Anaerobe Identification Only [facility] Blood Culture 1 [facility] Platelet mean volume Auto (B ld) [Entitic vol]on 03-08-2024 Platelet mean volume (Bld) [Entitic vol] Platelet mean volume [Entitic volume] in Blood by Automated count 9.5-13.5 [facility] Platelets Auto (Bld) [#/Vol] on 03-08-2024 Platelets (Bld) [#/Vol] Platelets [#/volume] in Blood by Automated count 150-450 [facility] RBC Auto (Bld) [#/Vol]on RBC (Bld) [#/Vol] Erythrocytes [#/volume] in Blood by Automated count Low 4.20-5.40 [facility] Serum or plasma albumin/glob ulin mass ratioon 03-08-2024 Albumin/Globulin [Mass ratio] Serum or plasma albumin/globulin mass ratio [facility] Serum or plasma anion gap de terminationon 03-08-2024 Anion gap [Moles/Vol] Serum or plasma an ion gap determination [facility] Basophils Auto (Bld) [#/Vol] on 11-07-2023 Basophils (Bld) [#/Vol] 0.0 10 3/uL 0.0-0.1 [facility] Basophils/100 WBC Auto (Bld) on 11-07-2023 Basophils/100 WBC (Bld) 0.4 % 0.2-2.0 [facility] Eosinophils/100 WBC Auto (Bl d)on 11-07-2023 Eosinophils/100 WBC (Bld) 2.6 % 0.9-7.0 [facility] Erythrocyte distribution wid th Auto (RBC) [Ratio]on 11-07-2023 Erythrocyte distribution width (RBC) [Ratio] 13.3 % 11.0-15.0 [facility] Estimated glomerular filtrat ion rate (GFR) non- Americanon 11-07-2023 GFR/1.73 sq M.predicted among non-blacks MDRD (S/P/Bld) [Vol rate/Area] 45 mL/min/{1.73_m2} Low >=60 [facility] Hematocrit Auto (Bld) [Volum e fraction]on 11-07-2023 Hematocrit (Bld) [Volume fraction] 35.4 % Low 36.0-48.0 [facility] Hemoglobin [Mass/volume] in Bloodon 11-07-2023 Hemoglobin (Bld) [Mass/Vol] 11.8 g/dL Low 12.0-16.0 [facility] Iron binding capacity [Mass/ volume] in Serum or Plasmaon 11-07-2023 Iron binding capacity [Mass/Vol] 258.0 ug/dL 250.0-450.0 [facility] Iron saturation [Mass Fracti on] in Serum or Plasmaon 11-07-2023 Iron saturation [Mass fraction] 31.8 % [facility] Laboratory - Chemistry and C hemistry - challengeon 11-07-2023 Calcium [Mass/Vol] 10.0 mg/dL 8.5-10.1 [facility] Chloride [Moles/Vol] 102 mmol/L 98-107 [facility] CO2 [Moles/Vol] 30.7 mmol/L 21.0-32.0 [facility] Cobalamin (Vitamin B12) [Mass/Vol] 344.0 pg/mL 193.0-986.0 [facility] Creatinine [Mass/Vol] 1.17 mg/dL High 0.55-1.02 [facility] Ferritin [Mass/Vol] 154.0 ng/mL 8.0-252.0 [facility] GFR/1.73 sq M.predicted MDRD (S/P/Bld) [Vol rate/Area] 54 mL/min/{1.73_m2} Low >=60 [facility] Glucose [Mass/Vol] 107 mg/dL High 74-106 [facility] Iron [Mass/Vol] 82.0 ug/dL 50.0-170.0 [facility] Potassium [Moles/Vol] 3.5 mmol/L 3.5-5.1 [facility] Sodium [Moles/Vol] 141 mmol/L 136-145 [facility] Urea nitrogen [Mass/Vol] 15.0 mg/dL 7.0-18.0 [facility] Urea nitrogen/Creatinine [Mass ratio] 12.8 mg/mg [facility] Laboratory - Hematology and Cell countson 11-07-2023 Immature granulocytes/100 WBC (Bld) 0.2 % 0.0-0.5 [facility] Leukocytes [#/volume] correc jonnie for nucleated erythrocytes in Blood by Automated counon 11-07-2023 WBC corrected for nucl RBC Auto (Bld) [#/Vol] 5.3 10 3/uL 4.0-11.0 [facility] Lymphocytes Auto (Bld) [#/Vo l]on 11-07-2023 Lymphocytes (Bld) [#/Vol] 1.9 10 3/uL 1.2-3.8 [facility] Lymphocytes/100 WBC Auto (Bl d)on 11-07-2023 Lymphocytes/100 WBC (Bld) 35.4 % 20.5-60.0 [facility] MCH Auto (RBC) [Entitic mass ]on 11-07-2023 MCH (RBC) [Entitic mass] 30.6 pg 26.7-34.0 [facility] MCHC Auto (RBC) [Mass/Vol]on 11-07-2023 MCHC (RBC) [Mass/Vol] 33.3 g/dL 29.9-35.2 [facility] MCV Auto (RBC) [Entitic vol] on 11-07-2023 MCV (RBC) [Entitic vol] 91.7 fL 81.0-99.0 [facility] Monocytes Auto (Bld) [#/Vol] on 11-07-2023 Monocytes (Bld) [#/Vol] 0.6 10 3/uL 0.3-0.8 [facility] Monocytes/100 WBC Auto (Bld) on 11-07-2023 Monocytes/100 WBC (Bld) 12.1 % High 1.7-12.0 [facility] Neutrophils Auto (Bld) [#/Vo l]on 11-07-2023 Neutrophils (Bld) [#/Vol] 2.6 10 3/uL 1.4-6.5 [facility] Neutrophils/100 WBC Auto (Bl d)on 11-07-2023 Neutrophils/100 WBC (Bld) 49.3 % 43.0-75.0 [facility] No Panel Informationon 11-06 Eosinophils # (Auto) 0.1 10 3/uL 0.0-0.7 [facility] Folate 17.80 ng/mL 8.60-58.90 [facility] Immature Granulocyte # (Auto) 0.01 10 3/uL 0.00-0.03 [facility] Platelet mean volume Auto (B ld) [Entitic vol]on 11-07-2023 Platelet mean volume (Bld) [Entitic vol] 12.2 fL 9.5-13.5 [facility] Platelets Auto (Bld) [#/Vol] on 11-07-2023 Platelets (Bld) [#/Vol] 190 10 3/uL 150-450 [facility] RBC Auto (Bld) [#/Vol]on RBC (Bld) [#/Vol] 3.86 10 6/uL Low 4.20-5.40 [facility] Serum or plasma anion gap de terminationon 11-07-2023 Anion gap [Moles/Vol] 11.8 mmol/L [facility] Office Visiton 01-05-2023 Follow-up visit [id number] Giovanna Richardson 1940 F Date Provider Department Center 01/05/2023 [id number] MEDEIROS [facility] Family History Problem Relation Age of Onset No Known Problems Mother No Known Problems Father Family Status - Relation Status Age at Mother Father Level of Service:88378 [place] OFFICE/OUTPATIENT ESTABLISHED LOW MDM 20-29 MIN Normal [facility] FUNGAL AB QUANTITAIVE DOUBLE IMMUNODIFFUon 07-30-2022 Aspergillus flavus Negative Normal Neg:<1:1 [facility] Comment on above: Performed By: #### F UNGUYI #### [facility] [address] [address] [address] Milena Rosa Aspergillus fumigatus Negative Normal Neg:<1:1 [facility] Comment on above: Performed By: #### F UNGUYI #### [facility] [address] [address] [address] Milena Rosa Aspergillus niger Negative Normal Neg:<1:1 [facility] Comment on above: Performed By: #### F UNGUYI #### [facility] [address] [address] [address] Milena Rosa Blastomyces Negative Normal Neg:<1:1 [facility] Comment on above: Performed By: #### F UNGUYI #### [facility] [address] [address] [address] Milena Rosa HISTOPLASMA GALACTOMANNAN AG URINEon 07-30-2022 Histoplasma Gal'rosales Ag <0.5 Normal <0.5 ng/mL [facility] Comment on above: Performed By: #### H ISTGAL ####[facility] [id number] [address]Dr. Mielna Rosa COCCIDIODES IGG/IGM AB BY IF Aon 07-29-2022 Coccidiodes Ab, IgG EIA 0.1 EIA Units Normal [facility] Comment on above: Result Comment: Nega tive <1.0 Indeterminate 1.0-1.4 Positive >1.4 Performed By: #### C OCCABS #### [facility] [address] [address] [address] Milena Rosa Coccidiodes Ab, IgM, EIA 0.0 EIA Units Normal [facility] Comment on above: Result Comment: Nega tive <1.0 Indeterminate 1.0-1.4 Positive >1.4 Performed By: #### C OCCABS #### [facility] [address] [place], [place] [address] Dr. Milena Rosa HISTOPLASMA CAP AB QUANT DID on 07-29-2022 Histoplasma Mycelial CF Ab. Negative Normal Neg:<1:2 [facility] Comment on above: Performed By: #### H ISTDID ####[facility] [id number] [place], [place] [address]CcDr. Milena Rosa Histoplasma Yeast CF Ab Negative Normal Neg:<1:2 [facility] Comment on above: Performed By: #### H ISTDID ####[facility] [address] [place], [place] [address]YoDr. Milena Rosa Office Visiton 07-26-2022 Follow-up visit [id number] Giovanna Richardson 1940 F Date Provider Department Center 07/26/2022 Kamilah8-JEMAL MEDEIROS [facility] Family History Problem Relation Age of Onset No Known Problems Mother No Known Problems Father Family Status - Relation Status Age at Mother Father Level of Service:87312 AR OFFICE/OUTPATIENT ESTABLISHED MOD MDM 30-39 MIN Reason for Visit and Comments: Follow-up [272591] - 6 weeks- Go over Holter monitor results- Discuss medications Normal [facility] CT CHEST WO CONon 07-19-2022 CT [...] WILLIAM BERMEO Date: 2022-07-19 14:55 Normal [facility] Office Visiton 06-07-2022 Follow-up visit [id number] Giovanna Richardson 1940 F Date Provider Department Center 06/07/2022 3848-JEMAL MEDEIROS [facility] Family History Problem Relation Age of Onset No Known Problems Mother No Known Problems Father Family Status - Relation Status Age at Mother Father Level of Service:06177 AR OFFICE/OUTPATIENT ESTABLISHED MOD MDM 30-39 MIN Reason for Visit and Comments: Post-Cath [731] Normal [facility] CBC AUTO DIFFon 05-15-2022 BASO # 0.0 103/ul Normal 0.0-0.1 [facility] Comment on above: Performed By: #### C BC #### [facility] [address] [place] [address] Dr. Milena Rosa Basophils/100 WBC (Bld) 0.3 % Normal 0.2-2.0 [facility] Comment on above: Performed By: #### C BC #### [facility] [address] [place], [place] [address] Dr. Milena Rosa EO # 0.2 103/ul Normal 0.0-0.7 [facility] Comment on above: Performed By: #### C BC #### [facility] [address] [place] [address] Dr. Milena Rosa Eosinophils/100 WBC (Bld) 2.8 % Normal 0.9-7.0 [facility] Comment on above: Performed By: #### C BC #### [facility] [address] [place] [address] Dr. Milena Rosa Erythrocyte distribution width (RBC) [Ratio] 13.3 % Normal 11.0-15.0 [facility] Comment on above: Performed By: #### C BC #### [facility] [address] [place] [address] Dr. Milena Rosa Hematocrit (Bld) [Volume fraction] 38.5 % Normal 36.0-48.0 [facility] Comment on above: Performed By: #### C BC #### [facility] [address] [place] [address] Dr. Milena Rosa Hemoglobin (Bld) [Mass/Vol] 12.6 g/dL Normal 12.0-16.0 [facility] Comment on above: Performed By: #### C BC #### [facility] [address] [place] [address] Dr. Milena Rosa IG # 0.02 10e3/ul Normal 0.00-0.03 [facility] Comment on above: Performed By: #### C BC #### [facility] [address] [place] [address] Dr. Milena Rosa IG % 0.3 % Normal 0.0-0.5 [facility] Comment on above: Performed By: #### C BC #### [facility] [address] [place] [address] Dr. Milena Rosa LYMPH # 2.5 103/ul Normal 1.2-3.8 [facility] Comment on above: Performed By: #### C BC #### [facility] [address] [place] [address] Dr. Milena Rosa Lymphocytes/100 WBC (Bld) 37.6 % Normal 20.5-60.0 [facility] Comment on above: Performed By: #### C BC #### [facility] [address] [place] [address] Dr. Milena Rosa MANUAL DIFF REQ NO Normal [facility] Comment on above: Performed By: #### C BC #### [facility] [address] [place] [address] Dr. Milena Rosa MCH (RBC) [Entitic mass] 29.8 pg Normal 26.7-34.0 [facility] Comment on above: Performed By: #### C BC #### [facility] [address] [place] [address] Dr. Milena Rosa MCHC (RBC) [Mass/Vol] 32.7 g/dL Normal 29.9-35.2 [facility] Comment on above: Performed By: #### C BC #### [facility] [address] [place] [address] Dr. Milena Rosa MCV (RBC) [Entitic vol] 91.0 fL Normal 81.0-99.0 [facility] Comment on above: Performed By: #### C BC #### [facility] [address] [place] [address] Dr. Milena Rosa MONO # 0.7 103/ul Normal 0.3-0.8 [facility] Comment on above: Performed By: #### C BC #### [facility] [address] [place] [address] Dr. Milena Rosa Monocytes/100 WBC (Bld) 10.0 % Normal 1.7-12.0 [facility] Comment on above: Performed By: #### C BC #### [facility] [address] [place] [address] Dr. Milena Rosa NEUT # 3.3 103/ul Normal 1.4-6.5 [facility] Comment on above: Performed By: #### C BC #### [facility] [address] [place] [address] Dr. Milena Rosa Neutrophils/100 WBC (Bld) 49.0 % Normal 43.0-75.0 [facility] Comment on above: Performed By: #### C BC #### [facility] [address] [place] [address] Dr. Milena Rosa Platelet mean volume (Bld) [Entitic vol] 11.5 fL Normal 9.5-13.5 [facility] Comment on above: Performed By: #### C BC #### [facility] [address] [place] [address] Dr. Milena Rosa PLT 201 103/ul Normal 150-450 [facility] Comment on above: Performed By: #### C BC #### [facility] [address] [place] [address] Dr. Milena Rosa RBC 4.23 106/ul Normal 4.20-5.40 [facility] Comment on above: Performed By: #### C BC #### [facility] [address] [place] [address] Dr. Milena Rosa WBC 6.7 103/ul Normal 4.0-11.0 [facility] Comment on above: Performed By: #### C BC #### [facility] [address] [place] [address] Dr. Milena Rosa Covid-19 PCR ([facility])on 04-30 SARS-CoV-2 (COVID-19) RNA RADHA+probe Ql (Unsp spec) Not detected Normal NOT DETECTED [facility] Comment on above: Result Comment: This test is not yet approved or cleared by the [place] FDA. When there are no FDA-approved or cleared tests available, and other criteria are met, FDA can make tests available under an emergency access mechanism called an Emergency Use Authorization (EUA). The EUA for this test is supported by the [employer] of Health and Human Service's (HHS's) declaration [...] with SARS-CoV-2. Performed By: #### C VDTBH ####[facility] [address] [place], [place] [address]ApDr. Milena Rosa PROF CHEM 8 (BAS METB)on Anion gap [Moles/Vol] 13.1 mmol/L Normal [facility] Comment on above: Performed By: #### B MP #### [facility] [address] [place] [address] [address] Milena Rosa Calcium [Mass/Vol] 9.8 mg/dL Normal 8.5-10.1 [facility] Comment on above: Performed By: #### B MP #### [facility] [address] [place] [address] [address] Milena Rosa Chloride [Moles/Vol] 103 mmol/L Normal 98-107 [facility] Comment on above: Performed By: #### B MP #### [facility] [address] [place] [address] [address] Milena Rosa CO2 [Moles/Vol] 26.7 mmol/L Normal 21.0-32.0 [facility] Comment on above: Performed By: #### B MP #### [facility] [address] [place] [address] [address] Milena Rsoa Creatinine [Mass/Vol] 0.95 mg/dL Normal 0.55-1.02 [facility] Comment on above: Performed By: #### B MP #### [facility] [address] [place] [address] [address] Milena Rosa EGFR-AF LEBANESE >60 Normal >=60 [facility] Comment on above: Performed By: #### B MP #### [facility] [address] [place] [address] [address] Milena Rosa EGFR-NON AF LEBANESE 57 mL/min/1.73m2 Critically low >=60 [facility] Comment on above: Performed By: #### B MP #### [facility] [address] [place] [address] [address] Milena Rosa Glucose [Mass/Vol] 93 mg/dL Normal 74-106 [facility] Comment on above: Performed By: #### B MP #### [facility] [address] [place] [address] [address] Milena Rosa Potassium [Moles/Vol] 3.8 mmol/L Normal 3.5-5.1 [facility] Comment on above: Performed By: #### B MP #### [facility] [address] [place] [address] [address] Milena Rosa Sodium [Moles/Vol] 139 mmol/L Normal 136-145 [facility] Comment on above: Performed By: #### B MP #### [facility] [address] [place] [address] [address] Milena Rosa Urea nitrogen [Mass/Vol] 18.0 mg/dL Normal 7.0-18.0 [facility] Comment on above: Performed By: #### B MP #### [facility] [address] [place] [address] [address] Milena Rosa Urea nitrogen/Creatinine [Mass ratio] 18.9 mg/mg Normal [facility] Comment on above: Performed By: #### B MP #### [facility] [address] [place] [address] [address] Milena Rosa NM STRESS/REST MULTIon 04-28 NM STRESS/REST MULTI Patient: GIOVANNA RICHARDSNO Exam Date: 04/28/2022 : 1940 Gender:F Ordering : DR OVI CROOKS D.O. Admission #: [id number] Family : Order #: [id number] CLICK HERE TO VIEW EXAM RADIOLOGY REPORT [...] MD on 04/28/2022 at 14:26 Normal [facility] CBC AUTO DIFFon 02-27-2022 BASO # 0.0 103/ul Normal 0.0-0.1 [facility] Comment on above: Performed By: #### C BC ####[facility] [address] [place] [address]Dr. Milena Rosa Basophils/100 WBC (Bld) 0.5 % Normal 0.2-2.0 [facility] Comment on above: Performed By: #### C BC ####[facility] [address] [place] [address]Dr. Milena Rosa EO # 0.1 103/ul Normal 0.0-0.7 [facility] Comment on above: Performed By: #### C BC ####[facility] [address] [place], [place] [address]Dr. Milena Moe Eosinophils/100 WBC (Bld) 1.9 % Normal 0.9-7.0 [facility] Comment on above: Performed By: #### C BC ####[facility] [address] [place] [address]Dr. Milena Moe Erythrocyte distribution width (RBC) [Ratio] 14.3 % Normal 11.0-15.0 [facility] Comment on above: Performed By: #### C BC ####[facility] [address] [place] [id number]. Milena Rosa Hematocrit (Bld) [Volume fraction] 37.6 % Normal 36.0-48.0 [facility] Comment on above: Performed By: #### C BC ####[facility] [address] [place] [id number]. Milena Rosa Hemoglobin (Bld) [Mass/Vol] 12.6 g/dL Normal 12.0-16.0 [facility] Comment on above: Performed By: #### C BC ####[facility] [address] [place] [address]Dr. Milena Moe IG # 0.02 10e3/ul Normal 0.00-0.03 [facility] Comment on above: Performed By: #### C BC ####[facility] [address] [place] [address]Dr. Milena Rosa IG % 0.3 % Normal 0.0-0.5 [facility] Comment on above: Performed By: #### C BC ####[facility] [address] [place] [address]Dr. Kimberleychinedu Rosa LYMPH # 2.1 103/ul Normal 1.2-3.8 [facility] Comment on above: Performed By: #### C BC ####[facility] [address] [place] [address]Dr. Kimberleychinedu Rosa Lymphocytes/100 WBC (Bld) 33.2 % Normal 20.5-60.0 [facility] Comment on above: Performed By: #### C BC ####[facility] [address] [place] [address]Dr. Kimberleychinedu Rosa MANUAL DIFF REQ NO Normal [facility] Comment on above: Performed By: #### C BC ####[facility] [address] [place] [address]Dr. Milena Moe MCH (RBC) [Entitic mass] 30.9 pg Normal 26.7-34.0 [facility] Comment on above: Performed By: #### C BC ####[facility] [address] [place] [address]Qr. Milena Rosa MCHC (RBC) [Mass/Vol] 33.5 g/dL Normal 29.9-35.2 [facility] Comment on above: Performed By: #### C BC ####[facility] [address] [place] [id number]. Milena Rosa MCV (RBC) [Entitic vol] 92.2 fL Normal 81.0-99.0 [facility] Comment on above: Performed By: #### C BC ####[facility] [address] [place] [id number]. Milena Moe MONO # 0.6 103/ul Normal 0.3-0.8 [facility] Comment on above: Performed By: #### C BC ####[facility] [address] [place] [address]Dr. Kimberleychinedu Rosa Monocytes/100 WBC (Bld) 8.9 % Normal 1.7-12.0 [facility] Comment on above: Performed By: #### C BC ####[facility] [address] [place], [place] [address]Dr. Milena Rosa NEUT # 3.5 103/ul Normal 1.4-6.5 [facility] Comment on above: Performed By: #### C BC ####[facility] [address] [place], [place] [address]Dr. Milena Rosa Neutrophils/100 WBC (Bld) 55.2 % Normal 43.0-75.0 [facility] Comment on above: Performed By: #### C BC ####[facility] [address] [place] [id number]. Milena Rosa Platelet mean volume (Bld) [Entitic vol] 11.6 fL Normal 9.5-13.5 [facility] Comment on above: Performed By: #### C BC ####[facility] [address] [place] [id number]. Milena Moe PLT 217 103/ul Normal 150-450 [facility] Comment on above: Performed By: #### C BC ####[facility] [address] [place], [place] [address]Ti. Milena Rosa RBC 4.08 106/ul Critically low 4.20-5.40 [facility] Comment on above: Performed By: #### C BC ####[facility] [address] [place], [place] [address]SoElia Rosa WBC 6.3 103/ul Normal 4.0-11.0 [facility] Comment on above: Performed By: #### C BC ####[facility] [address] [place], [place] [address]Ka. Milena Rosa ECHOCARDIO M/2D COMPLETEon 1 ECHOCARDIO M/2D COMPLETE Patient: GIOVANNA RICHARDSON Exam Date: 02/27/2022 : 1940 Gender:F Ordering : DR OVI CROOKS D.O. Admission #: [id number] Family : Order #: [id number] CLICK HERE TO VIEW EXAM ECHOCARDIOGRAM REPORT [...] M.D. on 03/01/2022 at 11:53 Normal [facility] PROF CHEM 8 (BAS B)on Anion gap [Moles/Vol] 6.1 mmol/L Normal [facility] Comment on above: Performed By: #### B TERESA, TSH #### [facility] [address] [place] [address] Dr. Milena Rosa Calcium [Mass/Vol] 9.0 mg/dL Normal 8.5-10.1 [facility] Comment on above: Performed By: #### B TERESA, TSH #### [facility] [address] [place] [address] [address] Milena Rosa Chloride [Moles/Vol] 103 mmol/L Normal 98-107 [facility] Comment on above: Performed By: #### B TERESA, TSH #### [facility] [address] [place] [address] Dr. Milena Rosa CO2 [Moles/Vol] 34.4 mmol/L Critically high 21.0-32.0 [facility] Comment on above: Performed By: #### B TERESA, TSH #### [facility] [address] [place] [address] Dr. Milena Rosa Creatinine [Mass/Vol] 1.21 mg/dL Critically high 0.55-1.02 [facility] Comment on above: Performed By: #### B TERESA, TSH #### [facility] [address] [place] [address] Dr. Milena Rosa EGFR-AF LEBANESE 52 mL/min/1.73m2 Critically low >=60 [facility] Comment on above: Performed By: #### B TERESA, TSH #### [facility] [address] [place] [address] Dr. Milena Rosa EGFR-NON AF LEBANESE 43 mL/min/1.73m2 Critically low >=60 [facility] Comment on above: Performed By: #### B TERESA, TSH #### [facility] [address] [place] [address] Dr. Milena Rosa Glucose [Mass/Vol] 101 mg/dL Normal 74-106 [facility] Comment on above: Performed By: #### B TERESA, TSH #### [facility] [address] [place] [address] Dr. Milena Rosa Potassium [Moles/Vol] 3.5 mmol/L Normal 3.5-5.1 [facility] Comment on above: Performed By: #### B MP, TSH #### [facility] [address] [place] [address] [address] Milena Rosa Sodium [Moles/Vol] 140 mmol/L Normal 136-145 [facility] Comment on above: Performed By: #### B MP, TSH #### [facility] [address] [place] [address] [address] Milena Rosa Urea nitrogen [Mass/Vol] 20.0 mg/dL Critically high 7.0-18.0 [facility] Comment on above: Performed By: #### B MP, TSH #### [facility] [address] [place] [address] Dr. Milena Rosa Urea nitrogen/Creatinine [Mass ratio] 16.5 mg/mg Normal [facility] Comment on above: Performed By: #### B MP, TSH #### [facility] [address] [place] [address] Dr. Milena Rosa TSHon 02-27-2022 TSH 1.640 uIU/mL Normal 0.358-3.740 [facility] Comment on above: Performed By: #### B MP, TSH #### [facility] [address] [place] [address] Dr. Milena Rosa XR CHEST 2 Von [...] WHITNEY FOURNIER Date: 2022-02-27 13:49 Normal [facility] MRI LSPINE WO CONon 01-10-20 MRI [facility] WO CON EXAMINATION: MRI LSHERREID WO CON HISTORY: Lumbar spondylosis ; chronic [...] BERMEO Date: 2022-01-09 16:20 Normal [facility] XR hand BI 3Von 12-21-2021 XR hand BI 3V [facility] Main [place] [address] [place] [address] XRay Report Signed Patient: Giovanna Richardson MR#: [id number] : 1940 Acct:[id number] Age/Sex: 81 / F ADM Date: 12/21/21 Loc: [facility] [place] Room: Type: [facility] Attending Dr: Brina Morrissey MD Copies [...] Caal Jr., DEliaOElia12/21/2021 2:31 PM Dictation Location: [place] [address] Transcribed By: [facility] 12/21/21 1431 Dictated By: Erasmo Caal Jr, DO 12/21/21 1427 Signed By: 12/21/21 1431 [facility] CBC AUTO DIFFon 09-14-2021 BASO # 0.0 103/ul Normal 0.0-0.1 [facility] Comment on above: Performed By: #### C BC #### [facility] [address] [place], [place] [address] Dr. Milena Rosa Basophils/100 WBC (Bld) 0.2 % Normal 0.2-2.0 [facility] Comment on above: Performed By: #### C BC #### [facility] [address] [place] [address] Dr. Milena Rosa EO # 0.1 103/ul Normal 0.0-0.7 [facility] Comment on above: Performed By: #### C BC #### [facility] [address] [place] [address] Dr. Milena Rosa Eosinophils/100 WBC (Bld) 2.8 % Normal 0.9-7.0 [facility] Comment on above: Performed By: #### C BC #### [facility] [address] [place] [address] Dr. Milena Rosa Erythrocyte distribution width (RBC) [Ratio] 13.4 % Normal 11.0-15.0 [facility] Comment on above: Performed By: #### C BC #### [facility] [address] [place] [address] Dr. Milena Rosa Hematocrit (Bld) [Volume fraction] 38.2 % Normal 36.0-48.0 [facility] Comment on above: Performed By: #### C BC #### [facility] [address] [place] [address] Dr. Milena Rosa Hemoglobin (Bld) [Mass/Vol] 12.5 g/dL Normal 12.0-16.0 [facility] Comment on above: Performed By: #### C BC #### [facility] [address] [place] [address] Dr. Milena Rosa IG # 0.02 10e3/ul Normal 0.00-0.03 [facility] Comment on above: Performed By: #### C BC #### [facility] [address] [place] [address] Dr. Milena Rosa IG % 0.4 % Normal 0.0-0.5 [facility] Comment on above: Performed By: #### C BC #### [facility] [address] [place] [address] Dr. Milena Rosa LYMPH # 2.1 103/ul Normal 1.2-3.8 [facility] Comment on above: Performed By: #### C BC #### [facility] [address] [place] [address] Dr. Milena Rosa Lymphocytes/100 WBC (Bld) 40.5 % Normal 20.5-60.0 [facility] Comment on above: Performed By: #### C BC #### [facility] [address] [place] [address] Dr. Milena Rosa MANUAL DIFF REQ NO Normal [facility] Comment on above: Performed By: #### C BC #### [facility] [address] [place] [address] Dr. Milena Rosa MCH (RBC) [Entitic mass] 29.7 pg Normal 26.7-34.0 [facility] Comment on above: Performed By: #### C BC #### [facility] [address] [place] [address] Dr. Milena Rosa MCHC (RBC) [Mass/Vol] 32.7 g/dL Normal 29.9-35.2 [facility] Comment on above: Performed By: #### C BC #### [facility] [address] [place] [address] Dr. Milena Rosa MCV (RBC) [Entitic vol] 90.7 fL Normal 81.0-99.0 [facility] Comment on above: Performed By: #### C BC #### [facility] [address] [place] [address] Dr. Milena Rosa MONO # 0.6 103/ul Normal 0.3-0.8 [facility] Comment on above: Performed By: #### C BC #### [facility] [address] [place] [address] Dr. Milena Rosa Monocytes/100 WBC (Bld) 12.0 % Normal 1.7-12.0 [facility] Comment on above: Performed By: #### C BC #### [facility] [address] [place] [address] Dr. Milena Rosa NEUT # 2.3 103/ul Normal 1.4-6.5 [facility] Comment on above: Performed By: #### C BC #### [facility] [address] [place] [address] Dr. Milena Rosa Neutrophils/100 WBC (Bld) 44.1 % Normal 43.0-75.0 [facility] Comment on above: Performed By: #### C BC #### [facility] [address] [address] [address] Milena Rosa Platelet mean volume (Bld) [Entitic vol] 11.7 fL Normal 9.5-13.5 [facility] Comment on above: Performed By: #### C BC #### [facility] [address] [address] [address] Milena Rosa PLT 206 103/ul Normal 150-450 [facility] Comment on above: Performed By: #### C BC #### [facility] [address] [address] [address] Milena Rosa RBC 4.21 106/ul Normal 4.20-5.40 [facility] Comment on above: Performed By: #### C BC #### [facility] [address] [place] [address] Dr. Milena Rosa WBC 5.1 103/ul Normal 4.0-11.0 [facility] Comment on above: Performed By: #### C BC #### [facility] [address] [place] [address] Dr. Milena Rosa MG MAMM SCREEN 3D SHERICE CADon 09-14-2021 MG MAMM SCREEN 3D SHERICE CAD Patient: GIOVANNA RICHARDSON Exam Date: 09/14/2021 : 1940 Gender:F Ordering : DR OVI CROOKS D.O. Admission #: [id number] Family : Order #: [id number] CLICK HERE TO VIEW EXAM RADIOLOGY REPORT [...] Treatments None Family Cancers None LOCATION: [facility] BREAST COMPOSITION: Scattered areas fibroglandular density. FINDINGS: [...] on 09/14/2021 at 10:42 Normal [facility] PROF CHEM 8 (BAS METB)on Anion gap [Moles/Vol] 10.5 mmol/L Normal [facility] Comment on above: Performed By: #### B MP #### [facility] [address] [place] [address] Dr. Milena Rosa Calcium [Mass/Vol] 9.5 mg/dL Normal 8.5-10.1 [facility] Comment on above: Performed By: #### B MP #### [facility] [address] [place] [address] Dr. Milena Rosa Chloride [Moles/Vol] 101 mmol/L Normal 98-107 [facility] Comment on above: Performed By: #### B MP #### [facility] [address] [place] [address] Dr. Milena Rosa CO2 [Moles/Vol] 31.1 mmol/L Normal 21.0-32.0 [facility] Comment on above: Performed By: #### B MP #### [facility] [address] [place] [address] Dr. Milena Rosa Creatinine [Mass/Vol] 1.01 mg/dL Normal 0.55-1.02 [facility] Comment on above: Performed By: #### B MP #### [facility] [address] [place] [address] Dr. Milena Rosa EGFR-AF LEBANESE >60 Normal >=60 [facility] Comment on above: Performed By: #### B MP #### [facility] [address] [place] [address] Dr. Milena Rosa EGFR-NON AF LEBANESE 53 mL/min/1.73m2 Critically low >=60 [facility] Comment on above: Performed By: #### B MP #### [facility] [address] [place] [address] [address] Milena Rosa Glucose [Mass/Vol] 96 mg/dL Normal 74-106 [facility] Comment on above: Performed By: #### B MP #### [facility] [address] [place] [address] [address] Milena Rosa Potassium [Moles/Vol] 3.6 mmol/L Normal 3.5-5.1 [facility] Comment on above: Performed By: #### B MP #### [facility] [address] [place] [address] [address] Milena Rosa Sodium [Moles/Vol] 139 mmol/L Normal 136-145 [facility] [facility] Comment on above: Performed By: #### B MP #### [facility] [address] [address] [address] Milena Rosa Urea nitrogen [Mass/Vol] 20.0 mg/dL Critically high 7.0-18.0 [facility] Comment on above: Performed By: #### B MP #### [facility] [address] [address] [address] Milena Rosa Urea nitrogen/Creatinine [Mass ratio] 19.8 mg/mg Normal [facility] Comment on above: Performed By: #### B MP #### [facility] [address] [address] [address] Milena Rosa Coding Summary.on 12-26-2017 Coding Summary. CODING DATE: 12/26/2017 FINAL [facility] STATUS: Home (Routine DC) PAYOR: Medicare APC DESCRIPTION 5481 Laser Eye Procedures ADMIT DX: REASON FOR VISIT DX: H26.492 Other secondary cataract, left eye FINAL DX: PRINCIPAL: H26.492 Other secondary cataract, left eye SECONDARY: PYMT PROC APC STAT DESCRIPTION DOCTOR NAME DATE [id number] Discission of secondary Quinn Armendariz DO [...] Isha Eddy Date Saved: 12/26/2017 11:03 am [facility] Coding Summary.on 12-19-2017 Coding Summary. CODING DATE: 12/19/2017 FINAL [facility] STATUS: Home (Routine DC) PAYOR: Medicare APC DESCRIPTION 5481 Laser Eye Procedures ADMIT DX: REASON FOR VISIT DX: H26.40 Unspecified secondary cataract FINAL DX: PRINCIPAL: H26.40 Unspecified secondary cataract SECONDARY: PYMT PROC APC STAT DESCRIPTION DOCTOR NAME DATE [id number] Discission of secondary Quinn Armendariz DO [...] Shilpa Perez Date Saved: 12/19/2017 09:21 am [facility] Vital Signs Date Time Vital Sign Value Performing Clinician Facility 08-25-2024 09:56-0400 Body height 151.13 cm [facility] 08-25-2024 09:56-0400 Body mass index (BMI) [Ratio] 30.7 kg/m2 [facility] 08-25-2024 09:56-0400 Body weight 70.02 kg [facility] 08-25-2024 09:56-0400 Diastolic blood pressure 74 mm[Hg] [facility] 08-25-2024 09:56-0400 Heart rate 64 /min [facility] 08-25-2024 09:56-0400 Respiratory rate 12 /min [facility] 08-25-2024 09:56-0400 SaO2% (BldA) [Mass fraction] 97 % [facility] 08-25-2024 09:56-0400 Systolic blood pressure 124 mm[Hg] [facility] 04-14-2024 14:22-0500 Body height 149.9 cm Brigitte Martinezr [employer] Work Phone: [facility] 04-14-2024 14:22-0500 Body mass index (BMI) [Ratio] 31.71 kg/m2 Brigitte Brarmor [employer] Work Phone: [facility] 04-14-2024 14:22-0500 Body weight 71.22 kg Brigitte Brarmor [employer] Work Phone: [facility] 04-14-2024 14:22-0500 Diastolic blood pressure 52 mm[Hg] Brigitte Brarmor [employer] Work Phone: [facility] 04-14-2024 14:22-0500 Heart rate 61 /min Brigitte Brarmor [employer] Work Phone: [facility] 04-14-2024 14:22-0500 SaO2% (BldA) [Mass fraction] 97 % Brigitte Brarmor [employer] Work Phone: [facility] 04-14-2024 14:22-0500 Systolic blood pressure 93 mm[Hg] Brigitte Martinezr [employer] Work Phone: [facility] 03-17-2024 10:07-0500 Body height 151.13 cm [facility] 03-17-2024 10:07-0500 Body mass index (BMI) [Ratio] 30.5 kg/m2 [facility] 03-17-2024 10:07-0500 Body weight 69.85 kg [facility] 03-17-2024 10:07-0500 Diastolic blood pressure 72 mm[Hg] [facility] 03-17-2024 10:07-0500 Heart rate 61 /min [facility] 03-17-2024 10:07-0500 SaO2% (BldA) [Mass fraction] 97 % [facility] 03-17-2024 10:07-0500 Systolic blood pressure 120 mm[Hg] [facility] 02-25-2024 10:08-0400 Body height 151.13 cm [facility] 02-25-2024 10:08-0400 Body mass index (BMI) [Ratio] 30.4 kg/m2 [facility] 02-25-2024 10:08-0400 Body weight 69.39 kg [facility] 02-25-2024 10:08-0400 Diastolic blood pressure 70 mm[Hg] [facility] 02-25-2024 10:08-0400 Heart rate 61 /min [facility] 02-25-2024 10:08-0400 Respiratory rate 12 /min [facility] 02-25-2024 10:08-0400 Systolic blood pressure 126 mm[Hg] [facility] 07-20-2023 09:05-0400 Body height 151.13 cm [facility] 07-20-2023 09:05-0400 Body mass index (BMI) [Ratio] 29.8 kg/m2 [facility] 07-20-2023 09:05-0400 Body weight 68.2 kg [facility] 07-20-2023 09:05-0400 Diastolic blood pressure 71 mm[Hg] [facility] 07-20-2023 09:05-0400 Heart rate 62 /min [facility] 07-20-2023 09:05-0400 Respiratory rate 12 /min [facility] 07-20-2023 09:05-0400 Systolic blood pressure 112 mm[Hg] [facility] 02-20-2023 16:00-0400 Body height Ovi Ball Other [facility] [employer] Other 02-20-2023 16:00-0400 Body mass index (BMI) [Ratio] 30.44 kg/m2 Ovi Ball Other [employer] Other 02-20-2023 16:00-0400 Body weight 69.54 kg Ovi Ball Other [employer] Other 02-20-2023 16:00-0400 Diastolic blood pressure 78 mm[Hg] Ovi Ball Other [employer] Other 02-20-2023 16:00-0400 Respiratory rate 12 /min Ovi Ball Other [employer] Other 02-20-2023 16:00-0400 Systolic blood pressure 144 mm[Hg] Ovi Ball Other [employer] Other 07-17-2022 16:30-0400 Body height Ovi Ball Other [employer] Other 07-17-2022 16:30-0400 Body mass index (BMI) [Ratio] 31.33 kg/m2 Ovi Ball Other [employer] Other 07-17-2022 16:30-0400 Body weight 71.58 kg Ovi Ball Other [employer] Other 07-17-2022 16:30-0400 Diastolic blood pressure 75 mm[Hg] Ovi Ball Other [employer] Other 07-17-2022 16:30-0400 Respiratory rate 12 /min Ovi Ball Other [employer] Other 07-17-2022 16:30-0400 Systolic blood pressure 122 mm[Hg] Ovi Ball Other [employer] Other 12-21-2021 11:00-0400 Body height Brina Morrissey Other [employer] Other Encounters Encounter Date Encounter Type Care Provider Facility Start: 09-02-2024 End: 09-02-2024 ambulatory [facility] Work Phone: Start: 09-02-2024 End: 09-02-2024 Patient encounter procedure [facility] Work Phone: Start: 08-25-2024 End: 08-25-[address] [facility] Work Phone: Start: 08-25-2024 End: 08-25-2024 Patient encounter procedure [facility] Work Phone: Start: 05-06-2024 End: 05-06-[address] [facility] Work Phone: Start: 05-06-2024 End: 05-06-2024 Patient encounter procedure [facility] Work Phone: Start: 04-14-2024 End: 04-14-2024 Office outpatient visit 25 minutes Brigitte Yang [employer] Work Phone: [facility] Comment on above: Obstructive sleep ap ravi syndrome (Primary Dx); Cerebral infarction, left hemisphere (CMS/HCC); Hypoxia; Sleep deprivation Start: 04-14-2024 End: 04-14-2024 ambulatory BRIGITTE YANG Not Available Start: 04-14-2024 End: 04-14-2024 Bamboo flowsheet Brigitte Yang [employer] Work Phone: [facility] Start: 04-14-2024 End: 04-14-2024 Bamboo flowsheet Brigitte Yang [employer] Work Phone: [facility] Start: 03-17-2024 End: 03-17-[address] [facility] Work Phone: Start: 03-17-2024 End: 03-17-2024 Patient encounter procedure [facility] Work Phone: Start: 03-10-2024 Non-patient / Non-visit [facility] Work Phone: Start: 03-09-2024 Non-patient / Non-visit [facility] Physician [facility] Work Phone: Start: 03-08-2024 Non-patient / Non-visit [facility] Work Phone: Start: 02-27-2024 Non-patient / Non-visit [facility] Work Phone: Start: 02-25-2024 End: 02-25-[address] [facility] Work Phone: Start: 02-25-2024 End: 02-25-2024 Patient encounter procedure [facility] Work Phone: Start: 02-15-2024 End: 02-15-2024 Refill Torres Rosa MD Work Phone: [facility] Comment on above: LPRD (laryngopharyng eal reflux disease) Start: 01-17-2024 End: 01-17-2024 Refill Alejandro Monteiro MA [facility] [address] Comment on above: Cerebral infarction, left hemisphere (CMS/HCC) (Primary Dx) Start: 01-01-2024 End: 01-01-[address] [facility] Work Phone: Start: 01-01-2024 End: 01-01-2024 Patient encounter procedure [facility] Work Phone: Start: 11-07-2023 Non-patient / Non-visit [facility] Work Phone: Start: 10-08-2023 End: 10-08-2023 ambulatory BRIGITTE BRARSONG Not Available Start: 09-26-2023 End: 09-26-2023 ambulatory TORRES H TIMMIS Not Available Start: 08-15-2023 End: 08-15-2023 ambulatory TORRES H TIMMIS Not Available Start: 07-20-2023 End: 07-20-2023 ambulatory [facility] Work Phone: Start: 07-20-2023 End: 07-20-2023 Patient encounter procedure [facility] Work Phone: Start: 07-04-2023 End: 07-04-2023 Patient encounter procedure [facility] Work Phone: Start: 04-17-2023 End: 04-17-2023 ambulatory Ovi Ball Other [employer] Other Start: 04-17-2023 Telephone encounter Ovi Ball [facility] Start: 03-13-2023 End: 03-13-2023 ambulatory Ovi Ball Other [employer] Other Start: 03-13-2023 Telephone encounter Ovi Ball [facility] Start: 03-07-2023 End: 03-07-2023 ambulatory Ovi Ball Other [employer] Other Start: 03-07-2023 Telephone encounter Ovi Ball [facility] Start: 03-01-2023 End: 03-01-2023 ambulatory Ovi Ball Other [employer] Other Start: 03-01-2023 Telephone encounter Ovi Ball [facility] Start: 02-28-2023 End: 02-28-2023 ambulatory Ovi Ball Other [employer] Other Start: 02-28-2023 Telephone encounter Ovi Ball [facility] Start: 02-22-2023 End: 02-22-2023 ambulatory Ovi Ball Other [employer] Other Start: 02-22-2023 Telephone encounter Ovi Ball [facility] Start: 02-21-2023 End: 02-21-2023 ambulatory Ovi Ball Other [employer] Other Start: 02-21-2023 Telephone encounter Ovi Ball [facility] Start: 02-20-2023 End: 02-20-2023 ambulatory Ovi Ball Other [employer] Other Start: 02-20-2023 Office outpatient vi sit 25 minutes Ovi Crooks [facility] Start: 01-23-2023 End: 01-23-2023 ambulatory Ovi Crooks Other [employer] Other Start: 01-23-2023 Telephone encounter Ovi IBARRA [facility] Start: 01-16-2023 End: 01-16-2023 ambulatory Brina Morrissey Other [employer] Other Start: 01-16-2023 Office outpatient vi sit 15 minutes Brina Morrissey [facility] Start: 01-05-2023 End: 01-05-2023 ambulatory [facility] Start: 11-23-2022 ambulatory DAVID KAPOOR . Facili ty:H1 Start: 09-01-2022 End: 09-02-2022 ambulatory DAVID KAPOOR . Facility:H1 Start: 07-31-2022 End: 07-31-2022 ambulatory Brina Morrissey Other [employer] Other Start: 07-31-2022 Telephone encounter Brina Wright [facility] Start: 07-26-2022 End: 07-27-[address] OVI CROOKS Facility:H1 Start: 07-26-2022 End: 07-26-2022 ambulatory [facility] Start: 07-25-2022 End: 07-25-2022 ambulatory NARENDRANATH LAKSHMIPATHY . Facility:H1 Start: 07-20-2022 End: 07-21-2022 ambulatory NARENDRANATH LAKSHMIPATHY . Facility:H1 Start: 07-19-2022 End: 07-20-[address] OVI CROOKS [employer] Other Start: 07-19-2022 Telephone encounter Ovi IBARRA G [facility] Start: 07-17-2022 End: 07-17-2022 ambulatory Ovi Crooks Other [employer] Other Start: 07-17-2022 Patient encounter procedure Ovi Crooks [facility] Start: 06-20-2022 End: 06-20-[address] ELIZABETH JESSICA . Facility:H1 Start: 06-07-2022 Telephone encounter Brina Crooks [facility] Start: 06-07-2022 End: 06-07-2022 ambulatory [facility] [employer] Other Start: 05-20-2022 Encounter for preprocedural laboratory examination [facility] Start: 05-15-2022 End: 05-16-2022 ambulatory [facility] Facility:H1 Start: 05-15-2022 End: 05-16-2022 Encounter for preprocedural laboratory examination [facility] Facility:H1 Start: 05-09-[address] ELIZABETH [...] 01-18-2022 End: 01-18-2022 ambulatory Brina Morrissey Other [employer] Other Start: 01-18-2022 Office outpatient vi sit 15 minutes Brina GUERRERO [facility] Start: 01-09-2022 End: 01-10-2022 ambulatory MARY CRISTOBAL . Facility:H1 Start: 12-29-2021 End: 12-30-2021 ambulatory MARY CRISTOBAL . Facility:H1 Start: 12-21-2021 End: 12-21-2021 ambulatory Brina Morrissey Other [employer] Other Start: 12-21-2021 Office outpatient ne w 30 minutes [facility] Start: 12-21-2021 End: 12-21-2021 Patient encounter procedure MD Brina Morrissey Work Phone: [facility] Start: 12-13-2021 End: 12-13-[address] ELIZABETH JESSICA . Facility: Start: 12-01-2021 End: 12-02-2021 ambulatory MARY CRISTOBAL . Facility: Start: 09-14-2021 End: 09-15-[address] OVI CROOKS Facility: Start: 08-17-2021 Adult health examination Brina Morrissey Other [employer] Other Start: 12-25-2017 End: 12-25-2017 Patient encounter Quinn Armendariz Facility:[facility] Start: 12-18-2017 End: 12-18-2017 Patient encounter Quinn Armendariz Facility:[facility] Procedures Date Procedure Procedure Detail Performing Clinician [...] procedure 09/08/2024 11:00 AM EDT [facility] [address] [place] [address] Brigitte Yang, JAVON [address] [place], [place] [facility] [address] Start: 04-14-2024 End: 04-14-2024 [facility] Comment on above: Arrived Start: 12-30-2023 Influenza vaccination Influenz a Vaccine (#1) [facility] Comprehensive metabo lic 1999 panel - Serum or Plasma [facility] Comprehensive metabo lic 1999 panel - Serum or Plasma [facility] Comprehensive metabo lic 1999 panel - Serum or Plasma [facility] CT Chest WO contrast [facility] CT Chest WO contrast [facility] MG Breast - bilatera l Screening [facility] Immunizations Immunization Date Immunization Notes Care Provider Fa cility 02-25-2024 influenza, high dose seasonal, preservative-free [facility] 02-17-2022 influenza, high dose seasonal, preservative-free Ovi Crooks Other [facility] [employer] Other 02-17-2022 influenza virus vaccine, split virus (incl. purified surface antigen) Brina Morrissey Other [facility] [employer] Other 02-17-2022 influenza virus vaccine, unspecified formulation [facility] 04-04-2021 COVID-19 Vaccine Pfi zer - Documentation Purposes Only Ovi Crooks Other [facility] 01-17-2021 influenza virus vaccine, split virus (incl. purified surface antigen) Brina Carinehernan Other [facility] [employer] Other 01-17-2021 influenza virus vaccine, unspecified formulation [facility] 06-17-2020 COVID-19 Vaccine Pfi zer - Documentation Purposes Only Ovi Crooks Other [facility] 05-27-2020 COVID-19 Vaccine Moderna - Documentation Purposes Only Brina Morrissey Other [facility] 05-27-2020 COVID-19 Vaccine Pfi zer - Documentation Purposes Only Ovi Crooks Other [facility] 03-10-2020 influenza virus vaccine, split virus (incl. purified surface antigen) Brina Morrissey Other [facility] [employer] Other 03-10-2020 influenza virus vaccine, unspecified formulation [facility] 03-07-2019 influenza virus vaccine, split virus (incl. purified surface antigen) Brina Morrissey Other [facility] [employer] Other 03-07-2019 influenza virus vaccine, unspecified formulation [facility] 03-27-2018 influenza virus vaccine, split virus (incl. purified surface antigen) Brina Morrissey Other [facility] [employer] Other 03-27-2018 influenza virus vaccine, unspecified formulation [facility] 03-16-2017 pneumococcal Conjuga te, unspecified formulation; Translations: [Need for prophylactic vaccination against Streptococcus pneumoniae (pneumococcus)] Brina Morrissey Other [facility] [employer] Other 03-16-2017 pneumococcal polysaccharide vaccine, 23 valent Ovi Crooks Other [facility] 11-17-2016 pneumococcal conjuga te vaccine, 13 valent Ovi Crooks Other [facility] 02-09-2016 influenza virus vaccine, split virus (incl. purified surface antigen) Brina Morrissey Other [facility] [employer] Other 02-09-2016 influenza virus vaccine, unspecified formulation [facility] Payers Date Payer Category Payer Medicare [id number] 2016 [employer] [facility] BCBS [id number] 2016 Unknown BCBS BCBS [id number] 2016-Present [phone] [id number] [place], [place] [id number] [id number] 2007 Medicare [id number] 1959 Medicare [id number] 1959 Unknown [id number] 1942 Unknown [id number] 2.16.840.1.962811.3.579. 2.593 1942 Unknown [id number] 2.16.840.1.826829.3.579. 2.593 1942 Unknown [id number] 2.16.840.1.237325.3.579. 2.593 1942 Unknown [id number] 2.16.840.1.989773.3.579. 2.593 1942 Unknown [id number] 2.16.840.1.239301.3.579. 2.593 1942 Unknown [id number] 2.16.840.1.281380.3.579. 2.593 1942 Unknown [id number] 2.16.840.1.064837.3.579. 2.593 1942 Unknown [id number] 2.16.840.1.069811.3.579. 2.593 1942 Unknown [id number] 2.16.840.1.259554.3.579. 2.593 1942 Unknown [id number] 2.16.840.1.754855.3.579. 2.593 1942 Unknown [id number] 2.16.840.1.152796.3.579. 2.593 1942 Unknown [id number] 2.16.840.1.346214.3.579. 2.593 1942 Unknown [id number] 2.16.840.1.959096.3.579. 2.593 1942 Unknown [id number] 2.16.840.1.445183.3.579. 2.593 1942 Unknown [id number] 2.16.840.1.256958.3.579. 2.593 1942 Unknown [id number] 2.16.840.1.135459.3.579. 2.593 1942 Unknown [id number] 2.16.840.1.373836.3.579. 2.593 1942 Unknown [id number] 2.16.840.1.173024.3.579. 2.593 1942 Unknown [id number] 2.16.840.1.602129.3.579. 2.593 1942 Unknown [id number] 2.16.840.1.747958.3.579. 2.593 1942 Unknown [id number] 2.16.840.1.834322.3.579. 2.593 1942 Unknown [id number] 2.16.840.1.333815.3.579. 2.593 1942 Unknown [id number] 2.16.840.1.743824.3.579. 2.593 1942 Unknown [id number] 2.16.840.1.963331.3.579. 2.593 1942 Unknown [id number] 2.16.840.1.489132.3.579. 2.1259 1942 Unknown [id number] 2.16.840.1.163466.3.579. 2.1259 1942 Unknown [id number] 2.16.840.1.637311.3.579. 2.1259 1942 Unknown [id number] 2.16.840.1.439195.3.579. 2.1259 Social History Date Type Detail Facility Tobacco smoking stat us [facility] Unknown if ever smoked [facility] Work Phone: Start: 1940 Sex Assigned At Female F [facility] Start: 10-08-2023 End: 04-14-2024 Sex Assigned At [facility] [employer] Other Start: 06-28-2023 End: 06-28-2023 Tobacco smoking status GAIS Never smoked tobacco (finding) [facility] Start: 08-09-2023 Tobacco use and exposure Smokeless [...] Alcohol Comment caffeine: 1-2 cups per day [facility] Start: 1940 Sex assigned at Not on file N [facility] Start: 03-17-2024 End: 09-02-2024 Sex Female (finding) [facility] Clinical Notes 12-01-2021 to 08-25-2024 Note Date [...] syndrome, right acute September 02, 2024 10:11am [facility] Work Phone: 1(493) 462-746110-28-2024 Evaluation note* Diagnosis Onset Date Resolution Status [...] syndrome, right acute May 06, 2024 8:46am [facility] Work Phone: 1(429) 541-894909-03-2024 Evaluation note* Diagnosis Onset Date Resolution Status [...] 2024 10:03am Primary hypertension acute 2023 10:03am [facility] Work Phone: 1(816) 673-187201-19-2024 Quane received fax from [facility] Pain Mgmt requesting patient hold her [...] asked them to contact Dr. Arriola for clearance.[facility]12-19-2023 Evaluation note* Encounter Date Diagnosis Assessment Notes Treatment Notes Treatment Clinical Notes Mar, Acute cerebral infarction (ICD-10 - I63.9) Mar, Cerebral atherosclerosis (ICD-10 - I67.2) [employer] Other 11-01-2023 Evaluation note* Encounter Date Diagnosis Assessment Notes Treatment Notes Treatment Clinical Notes Feb, Acute cerebral infarction (ICD-10 - I63.9) [employer] Other 11-01-2023 Evaluation note* Encounter Date Diagnosis Assessment Notes Treatment Notes Treatment Clinical Notes Feb, Bruit (ICD-10 - R09.89) [employer] Other 10-25-2023 Evaluation note* Encounter Date Diagnosis Assessment Notes Treatment Notes Treatment Clinical Notes Jan, Transient left leg weakness (ICD-10 - R29.898) Jan, Jerking movements of extremities (ICD-10 - R25.2) [employer] Other 10-24-2023 Evaluation note* Encounter Date Diagnosis [...] the risk for cerebrovascular and cardiovascular disease. [employer] Other 09-19-2023 Evaluation note* Encounter Date Diagnosis [...] Pain in left hand (ICD-10 - M79.642) [employer] Other 09-08-2023 NoteCardiology Clinic Note Chief Complaint: [...] in all muscle groups, (more content not included)...[facility]09-08-2023 NotePatient here for 6 mo follow up CAD, hypertension, and hyperlipidemia. Has not been taking aspirin because she doesn't like taking a lot of pills. Says she's only had chest pain once recently. Sees Dr. Smith and had CT chest in September. [facility]04-03-2023 Evaluation note* Encounter Date Diagnosis Assessment Notes Treatment Notes Treatment Clinical Notes Jul, Pulmonary nodule (ICD-10 - R91.1) RUL 10mm nodule - 06/3022Jul, Cough (ICD9-CM - 786.2) Jul, Mild persistent asthma without complication (ICD-10 - J45.30) [employer] Other 03-29-2023 NoteCardiology Clinic Note Chief Complaint: [...] motor function in all (more content not included)...[facility]03-23-2023 NoteCONSULTATION CONSULTATION DATE: 07/20/2022 TO: Dr. [...] be helping some of her pain symptoms.[id number]* Encounter Date Diagnosis Assessment Notes Treatment Notes Treatment Clinical Notes Jun, Pulmonary nodule (ICD-10 - R91.1) RUL 10mm nodule - 06/3022 [employer] Other 03-20-2023 Evaluation note* Encounter Date Diagnosis [...] mammogram for breast cancer (ICD-10 - Z12.31) [employer] Other 02-08-2023 Evaluation note* Encounter Date Diagnosis Assessment Notes Treatment Notes Treatment Clinical Notes May, ASHD (arterioscleroti c heart disease) (ICD-10 - I25.10) LHC: moderate, nonobstructive coronary disease - 05/2022 [employer] Other 02-08-2023 NotePatient here for follow up [...] light-headedness. All other systems reviewed and are negative.[facility] 06-07-2022 NoteCardiology Clinic Note Chief Complaint: [...] Value Ventricular Rate 53 Atrial Rate 53 AR Interval 186 QRS DURATION 142 QT Interval 472 QTC CALCULATION(BAZETT) 442 P Brilliant 29 R-Brilliant -35 T Wave Brilliant 59 Impression Sinus bradycardia Left axis deviation Left bundle branch block Abnormal ECG When compared with ECG of 30-NOV-2008 12:01, Premature atrial comple (more content not included)...[facility]10-27-2022 NoteCONSULTATION CONSULTATION DATE: 02/23/2022 This is [...] will be followed in the clinic thereafter.[id number] Evaluation note* Encounter Date Diagnosis Assessment Notes [...] in both duran ds (ICD-10 - R20.0) [employer] Other 09-01-2022 NoteCONSULTATION CONSULTATION DATE: 12/29/2021 HISTORY [...] patient is in agreement to move forward.[id number] Evaluation note* Encounter Date Diagnosis Assessment Notes [...] in both duran ds (ICD-10 - R20.0) [employer] Other 08-04-2022 NoteCONSULTATION CONSULTATION DATE: 12/01/2021 HISTORY [...] followed up in the office post procedure.[facility]Evaluation noteNo assessment information availableSum[facility] Work Phone: Evaluation noteNo InformationNort Inside Other Evaluation note* Diagnosis Onset Date Resolution [...] noneactive Screening mammogram for breast cancer noneactive [facility] Work Phone: Evaluation note* Diagnosis Onset Date Resolution Status Arthritis of carpometacarpal (CMC) joint of left thumb acute Arthritis of carpometacarpal (CMC) joint of right thum b acute Carpal tunnel syndrome, left acute Carpal tunnel syndrome, right acute [facility] Work Phone: Evaluation note* Diagnosis LPRD (laryngopharyngeal reflux disease) Acute laryngitis, without mention of obstruction documented in this encounter [facility] HealthcareEvaluation note* Diagnosis Onset Date Resolution [...] sleep apnea acut e Primary hypertension acute [facility] Work Phone: Evaluation note* Diagnosis Obstructive sleep apnea syndrome- Primary Obstructive sleep apnea (adult) (pediatric) Cerebral infarction, left hemisphere (CMS/HCC) Unspecified cerebral artery occlusion with cerebral infarction Hypoxia Hypoxemia Sleep deprivation Problems related to lack of adequate sleep documented in this encounter [facility] HealthcareEvaluation note* Diagnosis Cerebral infarction, left hemisphere (CMS/HCC)- Primary Unspecified cerebral artery occlusion with cerebral infarction documented in this encounter [facility] HealthcareEvaluation note* Diagnosis Onset Date Resolution [...] st cancer noneactive August 25, 2024 9:55am [facility] Work Phone: Hisgqph general Narrative - Reported* Type Description Date Medical History Esophageal reflux Medical History seasonal allergies Medical History DIVINA Medical History Hypertension Surgical History APPENEDECTOMY Surgical History HYSTERECTOMY Surgical History SINUS Surgical History LEFT HAND Surgical History HEART CATH Surgical History CHOLECYSTECTOMY [employer] Other Hisriai general Narrative - Reported* Type Description Date Medical History Esophageal reflux Medical History seasonal allergies Medical History DIVINA Medical History Hypertension Medical History ASHD (arteriosclerotic heart dis ease) Surgical History APPENEDECTOMY Surgical History HYSTERECTOMY Surgical History SINUS Surgical History LEFT HAND Surgical History HEART CATH Surgical History CHOLECYSTECTOMY Surgical History cardiac catheterization 06/07/22 [employer] Other Hisnokc general Narrative - Reported* Type Description Date [...] catheterization 06/07/22 Hospitalization History SEE SURGICAL HX [employer] Other Summary Purpose Family History Relationship Condition [...] Admit Date ASHD (arteriosclerotic heart disease) Ap [facility] 2024 9:55am Cerebral atherosclerosis August 25 [...] 2024 9:55am Screening mammogram for breast cancer [facility] 2024 9:55am Chief Complaint Admit Date 6 month f/u-HIGH RISK August 25, 2024 9 :55am 3 MONTHS September 02, 2024 10:11a m Reason for Visit Admit Date ASHD (arteriosclerotic heart disease) Ap [facility] 2024 9:55am Cerebral atherosclerosis August 25 [...] section and content) DATE CREATED AUTHOR 12/29/2017 [facility] DATE CREATED AUTHOR AUTHOR'S ORGANIZ ATION 12/25/2021 [facility] DATE CREATED AUTHOR AUTHOR'S ORGANIZ ATION 09/08/2022 [facility] DATE CREATED AUTHOR AUTHOR'S ORGANIZ ATION 05/19/2023 [facility] DATE CREATED AUTHOR AUTHOR'S ORGANIZ ATION 04/16/2024 [facility] dical Specialists EPIC Care Teams (unrecognized [...] July 20, 2023 End: July 20, 2023 Charge Entry Specialist Relationship Specialty Start Date End Date Ovi Crooks MD [address] [place] [id number] PCP - General Internal Medicine 07/10/23 Team [...] March 17, 2024 End: March 17, 2024 Charge Entry Specialist Relationship Specialty Start Date End Date Ovi Crooks MD [address] [place] [id number] PCP - General Internal Medicine 07/10/23 Madhavi Arriola DO [address] [place] [address] Referring Physician Neurology 04/14/24 Charge Entry Specialist Relationship Specialty Start Date End Date Ovi Crooks MD [address] [place] [id number] PCP - General Internal Medicine 07/10/23 Madhavi Arriola DO [address] [place] [address] Referring Physician Neurology 04/14/24 Charge Entry Specialist Relationship Specialty Start Date End Date Ovi Crooks MD [address] [place] [id number] PCP - General Internal Medicine 07/10/23 Team Status: Inactive Member Role Status Dates vOi Crooks DO Primary Care Provider Active Start: [...] BE BASED ON THE PRIMARY CLINICAL RECORDS. [employer] provides no warranty or guarantee of the accuracy or completeness of information in this document.
--- NOTE | 2024-09-17 09:05 | PM.CN ---
Consult Note: HPI Data of Consult Patient: known to practice within the last 3 years Requesting Physician: Kelly Lott NP Primary Care Provider: Ovi Crooks, DO Consult Narrative Reason for consult: low back and right leg pain Narrative: Rupali Richardson a pleasant 83 year old female presents for evaluation of low back and right leg pain. prior lumbar MRI consistent with multilevel degenerative changes and stenosis. Pain today 1/10 aching burn, increasing with standing, walking, twisting, pulling, standing, gardening. Pain improved with forward flexion, sitting, lying down. Pt reports heaviness and weakness to RLE with activity. currently utilizing tylenol and gabapentin with mild benefit without side effects. recently underwent right L4/5 L5/S1 TFESI with >80% improvement in pain and functional ability ongoing. cc:: CC: Kelly Lott NP Review of Systems ROS Status of ROS 10 or more systems reviewed and unremarkable except as noted in history and below Musculoskeletal Reports: back pain and extremity pain PFSH [facility] Medical History (Updated 08/27/24 @ 09:04 by Kelly Lott NP) Acute hypotension ?I95.9 - Hypotension, unspecified (ICD-10) Pleuritic chest pain ?R07.81 - Pleurodynia (ICD-10) Anticoagulant long-term use ?Z79.01 - residential (current) use of anticoagulants (ICD-10) Lumbar spondylosis ?M47.816 - Spondylosis without myelopathy or radiculopathy, lumbar region (ICD-10) Numbness and tingling ?R20.0 - Anesthesia of skin (ICD-10) ?R20.2 - Paresthesia of skin (ICD-10) Osteoarthritis ?M19.90 - Unspecified osteoarthritis, unspecified site (ICD-10) Upper back pain ?M54.9 - Dorsalgia, unspecified (ICD-10) Low back pain ?M54.50 - Low back pain, unspecified (ICD-10) Acid reflux ?K21.9 - Gastro-esophageal reflux disease without esophagitis (ICD-10) Obesity ?E66.9 - Obesity, unspecified (ICD-10) Sleep apnea ?G47.30 - Sleep apnea, unspecified (ICD-10) Atrial fibrillation ?I48.91 - Unspecified atrial fibrillation (ICD-10) Surgical History 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 - Acquired absence of unspecified finger(s) (ICD-10) S/P lumbar spine operation ?Z98.890 - Other specified postprocedural states (ICD-10) S/P thoracentesis ?Z98.890 - Other specified postprocedural states (ICD-10) S/P sinus surgery ?Z98.890 - Other specified postprocedural states (ICD-10) H/O hand surgery ?Z98.890 - Other specified postprocedural states (ICD-10) H/O cardiac catheterization ?Z98.890 - Other specified postprocedural states (ICD-10) History of hysterectomy ?Z90.710 - Acquired absence of both cervix and uterus (ICD-10) History of cholecystectomy ?Z90.49 - Acquired absence of other specified parts of digestive tract (ICD-10) Hx of appendectomy ?Z90.49 - Acquired absence of other specified parts of digestive tract (ICD-10) Social History Highest level of school completed/degree received: high school graduate Little interest or pleasure in doing things: not at all Feeling down, depressed, or hopeless: not at all Meds Home Medications and Allergies Home Medications ?Medication ?Instructions ?Recorded ?Confirmed ?Type atorvastatin 40 mg tablet 40 mg PO DAILY 10/05/22 09/08/24 History escitalopram oxalate 10 mg tablet 10 mg PO DAILY 10/05/22 09/08/24 History (Lexapro) gabapentin 100 mg capsule 100 mg PO BID 10/05/22 09/08/24 History isosorbide mononitrate 30 mg 30 mg PO DAILY 10/05/22 09/08/24 History tablet,extended release 24 hr losartan 50 mg tablet 50 mg PO DAILY 10/05/22 09/08/24 History metoprolol tartrate 25 mg tablet 12.5 mg PO DAILY 10/05/22 09/08/24 History oxybutynin chloride 15 mg 15 mg PO DAILY 10/05/22 09/08/24 History tablet,extended release 24 hr clopidogrel 75 mg PO DAILY 04/12/23 09/08/24 History budesonide-formoterol HFA 160 2 puff inhalation Q12H 03/08/24 09/08/24 History mcg-4.5 mcg/actuation aerosol inhaler (Symbicort) hydrochlorothiazide 25 mg tablet 25 mg PO QAM 03/08/24 09/08/24 History omeprazole 40 mg capsule,delayed 40 mg PO .ACB 03/08/24 09/08/24 History release Allergies Allergy/AdvReac Type Severity Reaction Status Date / Time midazolam (From Versed) Allergy Unknown Vomiting Verified 09/08/24 08:13 Exam Constitutional Documenting provider has reviewed patient's vital signs: yes Common normals: no apparent distress, oriented x3, healthy appearing, alert and well nourished General appearance: cooperative HENMT Common normals: normocephalic, hearing grossly normal bilaterally and moist oral mucous membranes Head and scalp: normocephalic Eye Common normals: PERRL Pupil: PERRL Neck & C-Spine Common normals: full ROM General: normal visual inspection Chest Common normals: inspection of chest normal Respiratory Common normals: normal respiratory effort, no retractions and no use of accessory muscles Back & Pelvis Lumbar spine/lower back: ROM limited, pain with ROM, lumbar spinal tenderness and straight leg raise negative bilaterally Sacroiliac joints: SI joints normal Other: sensation intact BLE strength 4/5 in RLE right sij negative michelle(patricks), gaenslens, thigh thrust, compression test Neuro Common normals: oriented x3 Sensorium/orientation: alert Psych Common normals: mental status grossly normal, thought process normal, cooperative, affect normal, speech normal and activity/motor behavior normal Speech: normal speech Thought process: normal thought process Results Additional Findings Additional findings: If on a controlled substance or opioids, I have checked an [place] report on this patient and there are no aberrancies noted in the prescribing history.??If on a controlled substance or opioid a drug screen was completed and reviewed within the last year, and if there has not been a drug screen completed we ordered one today to monitor higher risk, state monitored pain medication use. As part of providing excellent, safe, comprehensive care, the following was completed at our patient's visit: 1. A medication reconciliation and review to ensure accurate knowledge of current/active medications, including asking our patients to inform us about any [id number] medications or herbal remedies/nutritional supplements/alternative remedies. 2. A review to specifically ensure our patients have had annual screening for screening for depression, screening for tobacco use, and screening for unhealthy alcohol use. For concerning screenings had a discussion with the patient, provided patient education, and recommended follow-up with primary care provider when appropriate. If patient noted with a risk of falling, they received education on strength, gait, and balance training to prevent future risk of falling. Portions of this note may have been carried over from the previous visit and updated as appropriate. Please note this office utilizes paper charting in addition to the electronic medical record. A list of current medications, vitals, and PMH is available there as the clinical staff outside of myself do not have access to [employer] charting during the clinic day operations. As part of providing quality comprehensive care the current medications, vitals, and PMH were reviewed in the paper chart. Assessment and Plan Assessment and Plan (1) Lumbar stenosis with neurogenic claudication: Assessment and Plan: The patient has had over 3 months of moderate to severe low back and right leg pain with functional impairment and inadequate response to conservative care including NSAIDS (unless there are contraindication such as concurrent blood thinners), multiple oral or topical pain medications, and home exercise program/physical therapy.? Patient has completed >6 weeks of guided home exercise program and/or formal physical therapy program without relief of their symptoms.? I have reviewed the imaging of the lumbar spine and no red flags were identified.? The Oswestry Disability Index was completed, and the patient scored a 16%.? The patient noted the following:?? moderate to severe pain impacting ADLs, sleep, social life, travel (2) Sacroiliitis: Plan update lumbar xray with flexion to evaluate stability update lumbar MRI without contrast to assess lumbar stenosis with NC in consideration of vertiflex/scs vs NS intervention continue HEP as tolerated continue current medications f/u 3 months, sooner if needed
== END 2024-09-17 08:36 | disposition home or self-care (01) ==
LOC: PM 08:36
PROVIDERS: PCP Internal Medicine; Visit Provider Nurse Practitioner
DX: M48.062 Spinal stenosis, lumbar region with neurogenic claudication (principal); M46.1 Sacroiliitis, not elsewhere classified
CPT/HCPCS: G0463

== ENCOUNTER 2024-09-24 06:48 | Outpatient (OUT) | payer MEDICARE, BC, SELFPAY ==
--- OUTSIDE RECORDS SUMMARY | 2023-10-29 06:00 | XMS_ITS ---
Author Organization The [facility] in [place] Address [address] [place] [address] Care Team Providers Care Personnel Manager Name Role Phone Ovi Crooks DO Primary Care Provider Rogelio Pearl Unavailable [phone] REASON FOR VISIT F/U -1 YEAR ASTHMA Encounters Encounter Location Date Provider Diagnosis Pulmonary Medicine [place] [address] [place] [address] 10/29/2023 Rogelio Smith Plan Of Treatment Next Appt Details Provider Name:Rogelio Smith, 11/25/2024 10:00:00 AM, [address] [place], [address], Progress Notes * Rupali RICHADRSON LDOB:[birth year] (83 yo F)Acc No.[id number]:10/29/2023 UNLOCKED PROGRESS NOTE Follow Up Patient: Afsaneh ARANGOashley Gordon Provider: Harish Smith DO :1940 A ge:82 Y S ex:Female Date:10/29/2023 Address:[address] [place] [address], [id number] Pcp:Ovi Crooks DO Subjective: * Chief Complaints: * 1 . F/U -1 YEAR ASTHMA. * Medical History: Objective: * Vitals: Assessment: Plan: * Treatment: * * Electronic signature of Key Smith DO on 09/24/2024 at 06:50 AM EDT Sign off status: Pending Visit Status: R /S (Rescheduled) * Provider: Harish Smtih, Date: 0 10/29/2023 Generated for Roseline foster/Erin/Lorin on: 0 09/24/2024 06:50 AM EDT
--- OUTSIDE RECORDS SUMMARY | 2023-10-31 09:00 | XMS_ITS ---
Author Organization The [facility] in [place] Address [address] [place] [address] Care Team Providers Care Disbursement Clerk Name Role Phone Ovi Crooks DO Primary Care Provider Rogelio Pearl Unavailable [phone] REASON FOR VISIT F/U -1 YEAR ASTHMA Encounters Encounter Location Date Provider Diagnosis Pulmonary Medicine [place] [address] [place] [address] 10/31/2023 Rogelio Smith Plan Of Treatment Next Appt Details Provider Name:Rogelio Smith, 11/25/2024 10:00:00 AM, [address] [place], [address], Progress Notes * Rupali R[place] LDOB:[birth year] (83 yo F)Acc No.[id number]:10/31/2023 UNLOCKED PROGRESS NOTE Follow Up Patient: Rupali ARANGO Evan Provider: Harish Smith DO :1940 A ge:82 Y S ex:Female Date:10/31/2023 Address:[address] [place] [address], [id number] Pcp:Ovi Crooks DO Subjective: * Chief Complaints: * 1 . F/U -1 YEAR ASTHMA. * Medical History: Objective: * Vitals: Assessment: Plan: * Treatment: * * Electronic signature of Key Smith DO on 09/24/2024 at 06:50 AM EDT Sign off status: Pending Visit Status: R /S (Rescheduled) * Provider: Harish Smith DO Date: 0 10/31/2023 Generated for Roseline foster/Erin/Lorin on: 0 09/24/2024 06:50 AM EDT
--- OUTSIDE RECORDS SUMMARY | 2023-11-20 06:00 | XMS_ITS ---
Author Organization [facility] in [place] Address [address] [place] [address] Care Team Providers Care Clinical Trial Educator Name Role Phone Ovi Crooks DO Primary Care Provider Rogelio Pearl Unavailable [phone] Allergies Allergen (clinical drug ingredient) Drug/Non Drug [...] Encounter Location Date Provider Diagnosis Pulmonary Medicine [place] [address] [place] [address] 11/20/2023 Rogelio Smith Mild persistent asth ma, uncomplicated J45.30 ; Multiple pulmonary nodules R91.8 ; [facility]P (current) use of 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 Z79.51 ; [...] imaging will be ordered regarding this. 11/20/2023 long term (current) use of 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 (ICD-10 - [...] further imaging will be ordered regarding this. long term (current) use of i nhaled steroids Patient was counseled to rinse & gargle with water after inhaled corticosteroid use. 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 Weight loss indicated: Decrease calories, increase activity. Next Appt Details Follow Up: 1 Year, Reason: A sta Provider Name:Rogelio Smith, 11/25/2024 10:00:00 AM, [address] [place], [address], Procedure Notes * Category Sub-Category Detail Notes PFT Data: PFT 09/15/2014:-F EV1/FVC: 78% -FEV1: 98%-FVC: 94%-Bronchodilator response: None-RV: 72%-T%-DLCO: 111%-Flow-volume loop: NormalPFT 03/05/2013:-FEV1/FVC: 76% -FEV1: 92%-FVC: 91%-Bronchodilator response: None-RV: 103%-T%-DLCO: 98%-Flow-volume loop: Normal Progress Notes * Rupali RICHARDSON LDOB:[birth year] (83 yo F)Acc No.[id number]:11/20/2023 Follow Up Patient: Rupali ARANGO Provider: Harish Smith, :1940 A ge:83 Y S ex:Female Date:11/20/2023 Address:[address] [place] [address]. [address], [facility] Pcp:Ovi Crooks, DO Check In:09:55 AM ESTCheck [...] smoker. Patient is under the care of [facility] Cardiology. * ROS: G eneral/Constitutional: Fever [...] History of COVID-19 Modified On:07/26/2022U Status:confirmed Z79.51 USP (current) use of 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 Modified On:11/01/2022U [...] of Medical Reason: N ot indicated B [place] ACTION PLAN Above Normal BMI Follow-up D ietary management education, guidance, and counseling * Follow Up: 1 Year (Reason: Asthma) * * Sign off status: Completed Visit Status: C HK (Check Out) true * Provider: Harish Smith DO Date: 11/20/2023 Generated for Roseline foster/Erin/Marianitting on: 0 09/24/2024 06:50 AM EDT History and Physical Notes * HPI (History of Present Illness) Category Sub-Category Detail Notes Category Not es General Paient presents for a follow up for Asthma. Patient denies any complaints or concerns with her breathing today. Patient is currently using Symbicort daily with benefit. Patient is a non smoker. Patient is under the care of [facility] Cardiology. Examination Category Sub-Category Detail Notes Category Not es Exam GENERAL APPEARANCE: Appears stated age Skin Normal Mouth [place] and moist , no candidiasis Trachea Midline Chest Normal Respiratory Breath sounds are cl ear to auscultation Gastrointestinal Normal Vascular No edema Musculoskeletal Normal posture Neurological Focal, intact Psychiatric Alert and oriented x 3 Mentation/Cognition Normal Oropharynx/Tongue Mallampati Class III
--- NOTE | 2024-09-24 06:50 | MR_ITS ---
The [address] [address] Patient Name: GIOVANNA BAUM MRN: [id number] date: 1940 Sex: F Assigned Patient Location: MRI Current Patient Location: MRI Accession/Order Number: [id number] Exam Date: 09/24/2024 08:49 Report Date: 09/24/2024 08:56 At the request of: SERGIO NUÑEZ NP Procedure: MR lumbar spine wo con MR lumbar spine wo con 09/24/2024 7:35 AM SIGNS AND SYMPTOMS: ^note modic changes ^sacroiliitis, not elsewhere classified,Spinal stenosis, low back pain with radiculopathy bilaterally PROTOCOL: Multiplanar multisequence MR images of the lumbar spine without IV contrast COMPARISON: 09/24/2024 and 03/08/2024 FINDINGS: Their is 5 mm of retrolisthesis of L2 upon L3. There is preservation of vertebral body. There is severe disc height loss at L2-L3 with moderate disc height loss at L3-L4 and L5-S1. There is moderate disc height loss at L1-L2 with mild disc height loss at L4-5. There is Schmorl's node formation throughout. There is Modic type I endplate edema at L1-L2 and L2-3. There is Modic type II fatty endplate degenerative change at L3-L4 and L5-S1. The conus terminates at the inferior endplate of the L1 vertebral body level. No epidural or paraspinous fluid collection is appreciated. There is a 1.4 cm heterogeneous structure in the left renal cortex posteriorly. This is isointense attenuating on the previous CT. This may represent a complex/hemorrhagic cyst. A mass is not excluded however. Follow-up with contrast-enhanced CT or MRI is recommended. There is a similar hemorrhagic cyst at the inferior pole of the left renal cortex. Simple cysts are noted in the renal cortices requiring no further follow-up. At T12-L1: There is a small right central disc bulge with mild spinal canal narrowing. There is facet hypertrophy. There is no significant neural foraminal stenosis. At L1-L2: There is a circumferential disc bulge with a focal right subarticular disc protrusion. There is facet hypertrophy. There is moderate spinal canal stenosis with mild right neural foraminal narrowing. At L2-L3: There is a circumferential disc bulge with facet hypertrophy. There is mild spinal canal stenosis with mild left and moderate right neural foraminal narrowing. At L3-L4: There is a broad-based disc bulge with facet hypertrophy and evidence of previous right hemilaminotomy. No spinal canal narrowing. There is endplate osteophyte formation. There is mild left and moderate right neural foraminal stenosis. At L4-L5: There is a broad-based disc bulge with facet hypertrophy and ligament flavum thickening. There is moderate spinal canal stenosis with mild to moderate bilateral neural foraminal narrowing. At L5-S1: There is a circumferential disc bulge with facet hypertrophy and ligamentum flavum thickening. There is endplate osteophyte formation. There is no spinal canal narrowing. There is mild right and moderate left neural foraminal stenosis. MR/MR lumbar spine wo con IMPRESSION: Variable degrees of spinal canal and neural foraminal narrowing are noted throughout the lumbar spine as above secondary to disc, facet, and endplate degenerative changes. See details above. There is a 1.4 cm heterogeneous structure in the left renal cortex posteriorly. This is isointense attenuating on the previous CT. This may represent a complex/hemorrhagic cyst. A mass is not excluded however. Follow-up with contrast-enhanced CT or MRI is recommended. Impression dictated by: Zion Garcia M.D. 09/24/2024 8:56 AM Dictation Location: [place] [address] Electronically authenticated by: [id number] Y Date: 09/24/2024 08:56
--- OUTSIDE RECORDS SUMMARY | 2024-09-24 06:50 | XMS_ITS | Patient Health Record ---
Author Organization [facility] [place] Address [address] [place] [address] Care Team Providers Care Radiologist Name Role Phone Ovi Crooks DO Primary Care Provider Rogelio Pearl Unavailable [phone] Allergies Allergen (clinical drug ingredient) Drug/Non Drug Allergy documented on EMR Reaction Allergy Type Onset Date Status Versed (uncoded) nausea and vomiting Allergy Active Results Component Value Reference Range Notes PROF CHEM 8 (BAS METB) Reviewed date:03/09/2024 05:32:33 PM Interpretation: Performing Lab: Notes/Report: [facility] , Sodium 141 136-145 mmol/L Potassium 2.9 3.5-5.1 mmol/L RESULTS CALLED TO JASON VAZQUEZ RN @BY Cecile San at 0649 Chloride 103 98-107 mmol/L Carbon Dioxide 21.8 21.0-32.0 mmol/L Anion Gap 19.1 Glucose 164 74-106 mg/dL Blood Urea Nitrogen 21.0 7.0-18.0 mg/dL Creatinine 1.74 0.55-1.02 mg/dL Estimated GFR ( Michelle 34 >=60 mL/min/1.73m 2 Estimated GFR (Non- Gaby 28 >=60 mL/min/1.73m 2 BUN Creatinine Ratio 12.1 Calcium 8.9 8.5-10.1 mg/dL Performing Lab: see note ML - [facility] LB CBC AUTO DIFF Reviewed date:03/09/2024 05:32:33 PM Interpretation: Performing Lab: Notes/Report: [facility] , White Blood Count 9.2 4.0-11.0 10 3/uL Red Blood Count 3.82 4.20-5.40 10 6/uL Hemoglobin 11.5 12.0-16.0 g/dL Hematocrit 35.4 36.0-48.0 % Mean Corpuscular Volume 92.7 81.0-99.0 fL Mean Corpuscular Hemoglobin 30.1 26.7-34.0 pg Mean Corpuscular HGB Conc 32.5 29.9-35.2 g/dL Red Cell Distribution Width 14.0 11.0-15.0 % Platelet Count 179 150-450 10 3/uL Mean Platelet Volume 12.0 9.5-13.5 fL Neutrophils Percent Auto 81.9 43.0-75.0 % Lymphocytes Percent Auto 13.9 20.5-60.0 % Monocytes Percent Auto 3.4 1.7-12.0 % Eosinophils Percent Auto 0.0 0.9-7.0 % Basophils Percent Auto 0.1 0.2-2.0 % Immature Granulocytes Pct Auto 0.7 0.0-0.5 % Neutrophils Absolute Auto 7.6 1.4-6.5 10 3/uL Lymphocytes Absolute Auto 1.3 1.2-3.8 10 3/uL Monocytes Absolute Auto 0.3 0.3-0.8 10 3/uL Eosinophils Absolute Auto 0.0 0.0-0.7 10 3/uL Basophils Absolute Auto 0.0 0.0-0.1 10 3/uL Immature Granulocytes Abs Auto 0.06 0.00-0.03 10 3/uL Performing Lab: see note ML - [facility] LB SARS-CoV-2 Ag* Reviewed date:03/08/2024 03:33:10 PM Interpretation: Performing Lab: Notes/Report: [facility] , SARS-CoV-2 Ag NEGATIVE NEGATIVE This test has not been FDA cleared or approved, but has been authorized by the FDA under an Emergency Use Authorization (EUA) for use by authorized laboratories certified under CLIA that meet the requirements to perform moderate or high complexity testing. This test has been authorized only for the detection of proteins from SARS-CoV-2, not for any other viruses or pathogens. The emergency use of this test is authorized for the duration of the declaration that circumstances exist justifying the authorization of emergency use of in vitro diagnostic tests for detection and/or diagnosis of Covid-19 under section 564(b)(1) of the Act, 21 U.S.C. 360bbb-3(b)(1), unless the declaration is terminated or authorization is revoked sooner. Performing Lab: see note ML - [facility] LB Troponin I High Sensitivity Reviewed date:03/08/2024 03:33:10 PM Interpretation: Performing Lab: Notes/Report: [facility] , Troponin I High Sensitivity 9.3 4.0-51.3 pg/m L CUT-OFF POINTS HAVE BEEN ESTABLISHED BASED ON THE FOURTH UNIVERSAL DEFINITION OF MYOCARDIAL INFARCTION. THE UPPER REFERENCE LIMIT (URL) OF TROPONIN, DEFINED THE 99TH PERCENTILE OF cTnI DISTRIBUTION IN A REFERENCE POPULATION, HAS BEEN CONFIRMED THE DECISION THRESHOLD FOR [place] DIAGNOSIS. 99TH PERCENTILE = 51.4 PG/ML NOTE: HIGH-SENSITIVITY TROPONIN ASSAY IS NOT INTENDED TO BE USED IN ISOLATION BUT SHOULD BE INTERPRETED IN CONJUNCTION WITH OTHER DIAGNOSTIC AND CLINICAL INFORMATION. Performing Lab: see note ML - [facility] UA RANDOM W or MICROSCOPIC Reviewed date:03/08/2024 03:33:10 PM Interpretation: Performing Lab: Notes/Report: Comment Cath specimen [facility] , Color Urine LT. YELLOW YELLOW Clarity Urine CLEAR CLEAR Specific [place] Urine 1.010 1.005-1.025 pH Urine 7.0 5.0-9.0 Protein Urine NEGATIVE NEG/TRACE mg/dL Glucose Urine UA NEGATIVE NEGATIVE mg/dL Bilirubin Urine NEGATIVE NEGATIVE Ketones Urine NEGATIVE NEGATIVE mg/dL Blood Urine TRACE-L NEGATIVE Nitrite Urine NEGATIVE NEGATIVE Urobilinogen Urine 1.0 0.2-1.0 EU/dL Leukocyte Esterase Urine NEGATIVE NEGATIVE WBC Urine 0-2 NONE SEEN #/HPF RBC Urine 0-2 0-2 #/HPF Bacteria Urine TRACE NONE SEEN #/HPF Mucus Urine TRACE NONE SEEN Squamous Epithelial Cell Urine RARE NONE/RARE #/LPF Crystals Seen? None Seen None Seen #/HPF Cast Seen? SEEN NONE SEEN #/LPF Hyaline Casts Urine RARE Urine Culture Indicated NO Performing Lab: see note ML - [facility] LB MAGNESIUM Reviewed date:03/08/2024 03:33:10 PM Interpretation: Performing Lab: Notes/Report: [facility] , Magnesium 1.9 1.8-2.4 mg/dL Performing Lab: see note ML - [facility] LB LIVER PROFILE Reviewed date:03/08/2024 03:33:10 PM Interpretation: Performing Lab: Notes/Report: [facility] , Bilirubin Total 1.4 0.2-1.0 mg/dL Bilirubin Direct 0.4 0.0-0.2 mg/dL Aspartate Amino Transferase 178 15-37 U/L Alanine Aminotransferase 156 14-59 U/L Alkaline Phosphatase 89 46-116 U/L Total Protein 6.3 6.4-8.2 g/dL Albumin Level 3.2 3.4-5.0 g/dL Globulin 3.1 Albumin Globulin Ratio 1.0 Performing Lab: see note ML - [facility] LB LIPASE Reviewed date:03/08/2024 03:33:10 PM Interpretation: Performing Lab: Notes/Report: [facility] , Lipase 26.0 16.0-77.0 U/L Performing Lab: see note ML - [facility] LB LACTATE or LACTIC ACID Reviewed date:03/08/2024 03:33:10 PM Interpretation: Performing Lab: Notes/Report: [facility] , Lactate/Lactic Acid 1.2 0.4-2.0 mmol/L Performing Lab: see note ML - [facility] INFLUENZA A AND B AG Reviewed date:03/08/2024 03:33:10 PM Interpretation: Performing Lab: Notes/Report: [facility] , Influenza Virus A Antigen Negative Negative for Flu A protein antigen. Infection due to Flu A cannot be ruled out. Flu A antigen in the sample may be below the detection limit of the test. Influenza Virus B Antigen Negative Negative for Flu B protein antigen. Infection due to Flu B cannot be ruled out. Flu B antigen in the sample may be below the detection limit of the test. Performing Lab: see note ML - [facility] LB BNP Reviewed date:03/08/2024 03:33:10 PM Interpretation: Performing Lab: Notes/Report: [facility] , NT Pro B Type Natriuretic Pept 697.0 <=1800.0 pg/mL Performing Lab: see note ML - [facility] LB Reason For Referral No Information Medications Medication SIG (Take, Route, Frequency, Duration) Notes Start Date End Date Status Symbicort 160-4.5 MCG/ACT 2 puffs Inhalation BID for 90 days Rinse after use Active Escitalopram Oxalate 10 MG 1 tablet Oral ly Once a day Active Gabapentin 100 MG 1 capsule Orally Onc e a day Active oxyBUTYnin Chloride ER 15 MG 1 tablet Or ally Once a day Active Atorvastatin Calcium 40 MG 1 tablet Oral ly Once a day Active Isosorbide Mononitrate ER 30 MG 1 tablet in the morning Orally Once a day Active Losartan Potassium 50 MG 1 tablet Orally Once a day Active Metoprolol Succinate 25 MG 1 capsule Ora lly Once a day Active Omeprazole 20 MG 1 capsule 30 minutes before morning meal Orally Once a day Active hydroCHLOROthiazide 25 MG 1 tablet in th e morning Orally Once a day Active Immunizations Vaccine Route Administration Date Status Comme nts Flu, Unspecified Unknown 02/17/2022 Administered Pneumococcal (Pneumovax 23) Unknown 03/16/2017 Administ ered SARS-COV-2 (COVID 19 Pfizer 30mcg/0.3mL) Unknown 04/04/2021 Administered Social History Tobacco Use: Social History Observation Description Date Details (start date - stop date) Never Smoker NA - NA Tobacco Use/Smoking Question Answer Notes Patient is a nonsmoker Tobacco Control (Standard) Question Answer Notes Tobacco use: Nonsmoker Problems Problem Type SNOMED Code ICD Code Onset Dates Problem Status W/U Status Risk Notes Problem Obstructive sleep apnea syndrome (disorder) (23333410) Obstructive sleep apnea (adult) (pediatric) (G47.33) Active confirmed Problem 055122828 Obesity, unspeci fied (E66.9) Active confirmed Problem 018759669 Mild persistent asthma, uncomplicated (J45.30) Active confirmed Problem Overactive bladder (370070037) Overactive bladder (N32.81) Active confirmed Problem 436438879 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) use of 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 (Z79.51) Active confirmed Problem Coronary artery disease (30885316) Coronary artery disease (I25.10) Active confirmed Problem Paroxysmal atrial fibrillation (061301723) Paroxysmal atrial fibrillation (I48.0) Active confirmed Problem Benign essential hypertension (9564042) Benign essential hypertension (I10) Active confirmed Problem Multiple pulmonary nodules (722334352) Multiple pulmonary nodules (R91.8) Active confirmed Problem Hypercholesterolemia (87672147) Hypercholesterolemia (E78.00) Active confirmed Problem Secondary pulmonary hypertension (80320113) Other secondary pulmonary hypertension (I27.29) Active confirmed Problem Body mass index 30.0 0 to 34.99 (394486882433607) Body mass index [BMI] 31.0-31.9, adult (Z68.31) Active confirmed Problem Gastroesophageal reflux disease with esophagitis (disorder) (942469877) Gastroesophageal reflux disease with esophagitis without hemorrhage (K21.00) Active confirmed Problem History of COVID-19 (731625720625328518) History of COVID-19 (Z86.16) Active confirmed Vital Signs Heart Rate 60 /min 11/20/2023 Temperature 96.1 degrees Fahrenheit 11/20/2023 Respiratory Rate 18 /min 11/20/2023 Blood pressure diastolic 71 mm Hg 11/20/2023 Oximetry 93 % 11/20/2023 Height 59 in 11/20/2023 Blood pressure systolic 111 mm Hg 11/20/2023 Weight 154.2 lbs 11/20/2023 BMI 31.14 kg/m2 11/20/2023 Encounters Encounter Location Date Provider Diagnosis Pulmonary Medicine [place] [address] [place] [address] 11/20/2023 Rogelio Smith Mild persistent asth ma, uncomplicated J45.30 ; Multiple pulmonary nodules R91.8 ; retirement (current) use of 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 Z79.51 ; [...] imaging will be ordered regarding this. 11/20/2023 retirement (current) use of 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 (ICD-10 - Z79.51) Patient was counseled to rinse & gargle with water after inhaled corticosteroid use. 11/20/2023 Obesity, unspecified (ICD-10 - E66.9) Patient's weight is inducing a restrictive pulmonary physiology. Weight loss indicated: Decrease calories, increase activity. 11/20/2023 Body mass index [BMI] 31.0-31.9, adult (ICD-10 - Z68.31) Plan Of Treatment Next Appt Details Provider Name:Rogelio Smith, 11/25/2024 10:00:00 AM, [address] [place], [address], Insurance Providers Payer Name Payer Address Payer Phone Subscriber Number Group Number Insured Name Patient Relationship to Insured Coverage Start Date Coverage End Date MEDICARE [place] [employer] [address] [address] [place] [address] [id number] Rupali Cruz Self - patient is the insured 8 [employer] MEDICARE SUPPLEMENT [address] [place] [address] [id number] Kiki mcdonough Rupali Self - patient is the insured 6 Medical (General) History Medical History History ICD Code Multiple pulmonary nodules R91.8 Coronary artery disease I25.10 Gastroesophageal reflux disease with eso phagitis without hemorrhage K21.00 Obstructive sleep apnea (adult) (pediatr ic) G47.33 History of COVID-19 Z86.16 H/O pericarditis Z86.79 Paroxysmal atrial fibrillation I48.0 Benign essential hypertension I10 Lumbar spondylosis M47.816 Overactive bladder N32.81 Other secondary pulmonary hypertension I 27.29 Calcified lymph nodes I89.8 Surgical History Surgery Date(Month/Year) Sinus polypectomy cardiac catheterization 05/17/2022 Nerve Ablation-Back 06/20/2022 Back Injection 07/25/2022 Laminectomy Cholecystectomy appendectomy hysterectomy, abdominal
--- OUTSIDE RECORDS SUMMARY | 2024-09-24 06:50 | XMS_ITS | Clinical Summary ---
Author Organization [facility] Address [address] [place] [address] Care Team Providers Care Strip Mill Operator Name Role Phone Ovi Crooks [place] KENNEDY Primary Care Provider [phone] Madhavi Arriola DO Unavailable [phone] Allergies Active Allergy Reactions Criticality Noted Date Comments Midazolam Nausea And Vomiting Medium 05/10/2022 Medications atorvastatin (Lipitor) 40 MG tablet Take 40 mg by mouth at bedtime 4 Active metoprolol succinate XL (Toprol-XL) 25 MG 24 hr tablet Take 25 mg by mouth Daily 4 Active isosorbide mononitrate ER (Imdur) 30 MG 24 hr tablet Take 30 mg by mouth Daily 4 Active budesonide-formo terol (Symbicort) 160-4.5 MCG/ACT inhaler Inhale 2 puffs in the morning and 2 puffs before bedtime. Rinse mouth with water after use to reduce aftertaste and incidence of candidiasis. Do not swallow.. Active escitalopram (Lexapro) 10 MG tablet Take 10 mg by mouth Daily Active gabapentin (Neurontin) 100 MG capsule Take 100 mg by mouth in the morning and 100 mg before bedtime. Active hydroCHLOROthiaz luis (HYDRODiuril) 25 MG tablet Take 25 mg by mouth Daily Active losartan (Cozaar) 50 MG tablet Take 50 mg by mouth Daily Active omeprazole (PriLOSEC) [address] Mascorro ns:LPRD (laryngopharynge al reflux disease) Take 1 capsule (40 mg) by mouth in the morning. Take before meals. Do not crush or chew.. 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 10/08/2023 Cerebral infarction, left hemisphere 10/08/2023 Right hemiparesis 10/08/2023 Sleep deprivation 10/08/2023 Hypoxia 10/08/2023 LPRD (laryngopharyngeal reflux disease) 08/15/19 24 Pharyngoesophageal dysphagia 08/15/2023 Mild persistent asthma without complication 07/29 Depressive disorder 08/09/2023 Lumbar spondylosis 08/09/2023 Cerebral atherosclerosis 08/09/2023 Benign essential hypertension 07/26/2022 Chronic cough 07/26/2022 Coronary artery disease 07/26/2022 Gastroesophageal reflux dise ase with esophagitis without hemorrhage 07/26/2022 Hypertensive pulmonary arterial disease 07/27/19 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 06/29 Multiple pulmonary nodules 07/26/2022 Obstructive sleep apnea syndrome 07/26/2022 Overactive bladder 07/26/2022 Paroxysmal atrial fibrillation 07/26/2022 Resolved Problems Problem Noted Date Diagnosed Date Resolved Date Obesity, unspecified 01/05/2023 024 Abnormal CXR 07/26/2022 08/09/2023 History of COVID-19 07/26/2022 08/09/19 24 Shortness of breath 07/26/2022 08/09/19 24 Abnormal stress test 05/11/2022 024 Overview (08/09/2023): Added automatically from request for surgery [id number] Family History Medical History Relation Name Comments Kidney failure Father Alzheimer's disease Mother natural Mother Hyperlipidemia Sibling Myasthenia gravis Sibling Diabetes Sister 1 Hypertension Sister 1 Sinclair's esophagus Sister 2 Relation Name Status Comments Father Mother Sibling Sister 1 Alive Sister 2 Alive Social History Tobacco Use Types Packs/Day Years Used Date Smoking Tobacco: Never Smokeless Tobacco: Never Tobacco Cessation:Counseling Given: Not Answered Alcohol Use Standard Drinks/Week Comments Yes 0 (1 standard drink = 0.6 oz pur e alcohol) caffeine: 1-2 cups per day AUDIT-C Answer Date Recorded Q1: How often do you have a drink containing alc ohol? Monthly or less 10/08/2023 Q2: How many drinks containi ng alcohol do you have on a typical day when you are drinking? 1 or 2 10/08/2023 Q3: How often do you have si x or more drinks on one occasion? Never 10/08/2023 Comments Unknown Sex and Gender Information Value Date Recorded Sex Assigned at Not on file Legal Sex Female 8:31 PM EDT Gender Identity Not on file Sexual Orientation Not on file Last Filed Vital Signs Vital Sign Reading Time Taken Comments Blood Pressure 93/52 04/14/2024 2:22 PM EST Pulse 61 04/14/2024 2:22 PM EST Temperature - - Respiratory Rate - - Oxygen Saturation 97% 04/14/2024 2:22 PM EST Inhaled Oxygen Concentration - - Weight 71.2 kg (157 lb) 04/14/2024 2:22 PM EST Height 149.9 cm (4' 11 ) 04/14/2024 2:22 PM EST Body Mass Index 31.71 04/14/2024 2:22 PM EST Plan of Treatment Upcoming Encounters Date Type Department Care Team (Late st Contact Info) Description 11/24/2024 12:40 PM EDT Office Visit [facility] [place] [phone] Brigitte Yang NP [address] [place] [address] Health Maintenance Due Date Last Done Comments Pneumococcal Vaccine: 65+ Years Completed 7, 11/17/2016 Influenza Vaccine Completed 02/25/2024, , 03/10/2020, Additional history exists Insurance MEDICARE [facility] Care Teams Strip Mill Operator Relationship Specialty Start Date End Date Ovi Crooks DO PCP - General Internal Medicine 07/10/23 Madhavi Arriola DO [address] [place] [address] Referring Physician Neurology 04/14/24
--- OUTSIDE RECORDS SUMMARY | 2024-09-24 06:50 | XMS_ITS | Encounter Summary ---
Author Organization [facility] Address [address] [place] [address] Care Team Providers Care Still Worker Helper Name Role Phone Ovi Crooks DO Primary Care Provider [phone] Madhavi Arriola DO Unavailable [phone] Reason for Visit * Reason Comments Med Refill Encounter Details Date Type Department Care Team (Late st Contact Info) Description 05/18/2024 Refill [facility] [address] [facility] [address] [place] [id number] Celeste Steinberg MD [address] [facility] [address] [place], [place] [id number] LPRD (laryngopharyngeal reflux disease) Social History Tobacco Use Types Packs/Day Years Used Date Smoking Tobacco: Never Smokeless Tobacco: Never Alcohol Use Standard Drinks/Week Comments Yes 0 [...] on file Sexual Orientation Not on file documented as of this encounter Plan of Treatment Upcoming Encounters Date Type Department Care Team (Late st Contact Info) Description 11/24/2024 12:40 PM EDT Office Visit [facility] [address] [place] [id number] Brigitte Yang NP [address] [place], [place] documented as of this encounter Visit Diagnoses Diagnosis LPRD (laryngopharyngeal reflux disease) Acute laryngitis, without mention of obstruction documented in this encounter Care Teams Still Worker Helper Relationship Specialty Start Date End Date Ovi Crooks DO PCP - General Internal Medicine 07/10/23 Madhavi Arriola DO [address] [place] [address] Referring Physician Neurology 04/14/24 documented as of this encounter
--- OUTSIDE RECORDS SUMMARY | 2024-09-24 06:50 | XMS_ITS | Referral Summary ---
Author Organization [facility] Address [address] [place] [address] Care Team Providers Care Customer Trainer Name Role Phone Ovi Crooks DO Primary Care Provider [phone] Allergies Active Allergy Reactions Criticality Noted Date Comments Midazolam Nausea And Vomiting Medium 05/10/2022 Medications Medication Sig Dispensed Refills Start Date End Date Status gabapentin (Neurontin) 100 mg capsule Take 100 mg by mouth 1 (one) time each day. 03/14/2022 Active losartan (Cozaar) 50 mg tablet Take 50 mg by mouth in the morning. 03/21/2022 Active oxybutynin XL (Ditropan-XL) 15 mg 24 hr tablet Take 15 mg by mouth in the morning. 03/16/2022 Active escitalopram (Lexapro) 10 mg tablet Take 10 mg by mouth in the morning. 05/05/2022 Active hydroCHLOROthiazide (HYDRODiuril) 25 mg tablet Take 25 mg by mouth in the morning. 04/12/2022 Active aspirin 81 mg EC tabletIndications:Co ronary artery disease of [place]vas[place] heart with stable angina pectoris, unspecified vessel or lesion type Take 1 tablet (81 mg) by mouth in the morning. 90 tablet 3 06/07/2022 Active ciclesonide (Alvesco) 80 mcg/actuation inhaler 1 puff every 12 (twelve) hours. Active omeprazole (PriLOSEC) [address] capsule 1 (one) time each day at the same time. Active multivitamin tablet Take 1 tablet by mouth in the morning. Active calcium carbonate (CALCIUM 500 ORAL) Take by mouth. Ac tive acetaminophen (Tylenol) 500 mg tablet Take by mouth every 6 (six) hours if needed for mild pain (1-3 pain score). Active budesonide-formotero L (Symbicort) 160-4.5 mcg/actuation inhaler every 12 (twelve) hours. 07/26/2022 Active baclofen (Lioresal) 5 mg tablet Take 2.5-5 mg by mouth if needed. 10/21/2022 Active atorvastatin (Lipitor) 40 mg tabletIndications:Co ronary artery disease of [place]vas[place]ai heart with stable angina pectoris, unspecified vessel or lesion type TAKE 1 TABLET AT BEDTIME 90 tablet 3 05/08/2023 Active metoprolol succinate XL (Toprol-XL) 25 mg 24 hr tabletIndications:Co ronary artery disease of [place] heart with stable angina pectoris, unspecified vessel or lesion type TAKE 1 TABLET ONE TIME DAILY DIRECTED 90 tablet 3 06/19/2023 Active atorvastatin (Lipitor) 40 mg tabletIndications:Co ronary artery disease of [place] heart with stable angina pectoris, unspecified vessel or lesion type Take 1 tablet (40 mg) by mouth in the morning. 90 tablet 3 06/19/2024 06/19/2025 Active isosorbide mononitrate ER (Imdur) 30 mg 24 hr tabletIndications:Co ronary artery disease of [place]vas[place] heart with stable angina pectoris, unspecified vessel or lesion type Take 1 tablet (30 mg) by mouth in the morning. Do not crush or chew. 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 06/29 Multiple pulmonary nodules 07/26/2022 Obstructive sleep apnea syndrome 07/26/2022 Overactive bladder 07/26/2022 Paroxysmal atrial fibrillation 07/26/2022 Secondary pulmonary hypertension 07/26/2022 Shortness of breath 07/26/2022 Abnormal stress test 05/11/2022 Overview (05/11/2022): Added automatically from request for surgery [id number] Immunizations Name Administration Dates Next Due Influenza, Seasonal, Quadriv alent, Adjuvanted 02/17/2022 Influenza, injectable, quadrivalent 03/26/2017 Influenza, trivalent, adjuvanted 03/10/2020,03/01 Pneumococcal Conjugate PCV 13 11/17/2016 Pneumococcal Polysaccharide PPV23 03/16/2017 Unspecified Sars-Cov-2 Vaccination 04/04/2021,,05/27/2020 Social History Tobacco Use Types Packs/Day Years Used Date Smoking Tobacco: Never Smokeless Tobacco: Never Tobacco Cessation:Counseling Given: Not Answered Alcohol Use Standard Drinks/Week Comments Not Currently 0 (1 standard drink = 0.6 oz pur e alcohol) [place] Safety & Environment Answer Date Rec orded Fear of Current or Ex-Partner Not on file Emotionally Abused Not on file 06/21/2023 Physically Abused Not on file 06/21/2023 Sexually Abused Not on file 06/21/2023 Physically or Sexually Abused Not on file Sex and Gender Information Value Date Recorded Sex Assigned at Not on file Gender Identity Not on file Sexual Orientation Not on file Last Filed Vital Signs Vital Sign Reading Time Taken Comments Blood Pressure 103/66 01/05/2023 11:11 AM EDT Pulse 60 01/05/2023 11:11 AM EDT Temperature - - Respiratory Rate 16 05/17/2022 11:00 AM EST Oxygen Saturation 93% 01/05/2023 11:11 AM EDT Inhaled Oxygen Concentration - - Weight 70.8 kg (156 lb) 01/05/2023 11:11 AM EDT Height 151.1 cm (4' 11.5 ) 01/05/2023 11:11 AM E DT Body Mass Index 30.98 01/05/2023 11:11 AM EDT Plan of Treatment Not on file Care Teams Customer Trainer Relationship Specialty Start Date End Date Ovi Crooks DO [address] [place] [id number] PCP - General 05/09/22
--- OUTSIDE RECORDS SUMMARY | 2024-09-24 06:50 | XMS_ITS | Clinical Summary ---
Author Organization [facility] Address [address] [place] [address] Care Team Providers Care General Operations Agent Name Role Phone Ovi Crooks DO Primary Care Provider [phone] Allergies Active Allergy Reactions Criticality Noted Date [...] mg EC tabletIndications:Co ronary artery disease of [place] heart with stable angina pectoris, unspecified vessel [...] 40 mg tabletIndications:Co ronary artery disease of [place] heart with stable angina pectoris, unspecified vessel or lesion type TAKE 1 TABLET AT BEDTIME 90 tablet 3 05/08/2023 Active metoprolol succinate XL (Toprol-XL) 25 mg 24 hr tabletIndications:Co ronary artery disease of [place] heart with stable angina pectoris, unspecified vessel or lesion type TAKE 1 TABLET ONE TIME DAILY DIRECTED 90 tablet 3 06/19/2023 Active atorvastatin (Lipitor) 40 mg tabletIndications:Co ronary artery disease of [place] heart with stable angina pectoris, unspecified vessel or lesion type Take 1 tablet (40 mg) by mouth in the morning. 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 06/29 Multiple pulmonary nodules 07/26/2022 Obstructive sleep apnea syndrome 07/26/2022 Overactive bladder 07/26/2022 Paroxysmal atrial fibrillation 07/26/2022 Secondary pulmonary hypertension 07/26/2022 Shortness of breath 07/26/2022 Abnormal stress test 05/11/2022 Overview (05/11/2022): Added automatically from request for surgery [id number] Immunizations Name Administration Dates Next Due Influenza, Seasonal, Quadriv alent, Adjuvanted 02/17/2022 Influenza, injectable, quadrivalent 03/26/2017 Influenza, trivalent, adjuvanted 03/10/2020,03/01 Pneumococcal Conjugate PCV 13 11/17/2016 Pneumococcal Polysaccharide PPV23 03/16/2017 Unspecified Sars-Cov-2 Vaccination 04/04/2021,,05/27/2020 Family History Medical History Relation Name Comments No Known Problems Father No Known Problems Mother Relation Name Status Comments Father Mother Social History Tobacco Use Types Packs/Day Years [...] 01/05/2023 11:11 AM EDT Plan of Treatment Health Maintenance Due Date Last Done Comments Medicare Annual Wellness (AWV) 1940 Depression Screening 1954 Adult Tetanus 1964 Zoster Vaccines (1 of 2) 1992 Fall Risk Screening 11/09/2007 COVID-19 Vaccine ( season) 2023 04/04/2021, 04/04/2021, 06/17/2020, Additional history exists Influenza Vaccine (Season Ended) 2024 02/17/2022, 03/10/2020, 03/27/2018, Additional history exists Pneumococcal Vaccine: 65+ Years Completed 03/16/2017, 11/17/2016 HIB Vaccines Aged Out No longer eligi ble based on patient's age to complete this topic HPV Vaccines Aged Out No longer eligi ble based on patient's age to complete this topic IPV Vaccines Aged Out No longer eligi ble based on patient's age to complete this topic Meningococcal B Vaccine Aged Out No l onger eligible based on patient's age to complete this topic Meningococcal Vaccine Aged Out No obdulia [place] eligible based on patient's age to complete this topic Rotavirus Vaccines Aged Out No longer eligible based on patient's age to complete this topic Care Teams General Operations Agent Relationship Specialty Start Date End Date Ovi Crooks DO [address] [place] [id number] PCP - General 05/09/22
--- OUTSIDE RECORDS SUMMARY | 2024-09-24 06:51 | XMS_ITS | Encounter Summary ---
Author Organization [facility] Address [address] [place] [address] Care Team Providers Care Farm Or Ranch Animal Caretaker Name Role Phone Ovi Crooks DO Primary Care Provider [phone] Madhavi Arriola DO Unavailable [phone] Encounter Details Date Type Department Care Team (Late st Contact Info) Description 09/13/2023 Clinisync Result Encounter [facility] External Department Unsolicited Celeste Steinberg MD [address] [address] Social History Tobacco Use Types Packs/Day Years Used Date Smoking Tobacco: Never Smokeless Tobacco: Never Alcohol Use Standard Drinks/Week Comments Yes 0 (1 standard drink = 0.6 oz pur e alcohol) Socially Comments Unknown Sex and Gender Information Value Date Recorded Sex Assigned at Not on file Legal Sex Female 8:31 PM EDT Gender Identity Not on file Sexual Orientation Not on file documented as of this encounter Plan of Treatment Upcoming Encounters Date Type Department Care Team (Late st Contact Info) Description 11/24/2024 12:40 PM EDT Office Visit [address] [place] [address] Brigitte Yang NP [address] [place], [place] documented as of this encounter Procedures Procedure Name Priority Date/Time Associated Diagnosis Comments FL MODIFIED BARIUM SWALLOW 09/13/2023 2:07 PM EDT documented in this encounter Results * FL MODIFIED BARIUM SWALLOW (09/13/2023 2:07 PM EDT) Anatomical Region Laterality Modality Radiographic Diya ging 09/13/2023 2:07 PM EDT Narrative 09/13/2023 2:10 [place] [address] Fluoroscopy Report Signed Patient: RUPALI RICHARDSON MR#: [id number] : 1940 Acct:[id number] Age/Sex: 82 / F ADM Date: 09/13/23 Loc: [place] Attending Dr: Celeste Steinberg M.D. Ordering Physician: Celeste Steinberg M.D. Date of Service: 09/13/23 Procedure(s): FL modified barium swallow Accession Number(s): [id number] cc: Ovi Crooks D.O.; Celeste Steinberg M.D. [place] [address] Patient Name: RUPALI RICHARDSON MRN: [id number] date: 1940 Sex: F Assigned Patient Location: [place] Current Patient Location: [place] Accession/Order Number: [id number] Exam Date: 09/13/2023 13:00 Report Date: 09/13/2023 14:07 At the request of: CELESTE STEINBERG Procedure: FL modified barium swallow EXAMINATION: FL modified barium swallow HISTORY: PHARYNGOESOPHAGEAL DYSPHAGIA COMPARISON: No relevant comparison available. TECHNIQUE: A swallowing evaluation was performed with fluoroscopy in the usual manner. Standard level fluoroscopic mode of operation utilized. FINDINGS: ORAL PHASE: Normal deglutition. PHARYNGEAL PHASE: Slightly early spillage of thin and nectar thickened liquid over the base of the tongue and slightly delayed/limited closure of the epiglottis. ASPIRATION: No aspiration or penetration. STRUCTURE: Normal. No visible obstruction, stricture, or dilatation. OTHER: Patient swallowed a barium tablet without difficulty or delay, but describes feeling like the tablet was stuck within her throat. FL/FL modified barium swallow IMPRESSION: 1. No aspiration or penetration despite less than optimal closure of the epiglottis and early spillage of contrast over base of tongue. Please see speech pathologist's report for further discussion. Electronically authenticated by: LES HARRIS Date: 09/13/2023 14:07 Dictated By: Les Harris M.D. Signed By: 09/13/23 1410 DD/ 1407 TD/TT: Truck Driver Salesperson: Procedure Note Radiology, Radiologist, MD - 09/13/2023 [place] [address] Fluoroscopy Report Signed Patient: RUPALI RICHARDSON LMR#: [id number] : 1940cct:[id number] Age/Sex: 82 / FADM Date: 09/13/23 Loc: [place] Attending Dr: Celeste Steinberg M.D. Ordering Physician: Celeste Steinberg M.D. Date of Service: 09/13/23 Procedure(s): FL modified barium swallow Accession Number(s): [id number] cc: Ovi Crooks D.O.; Celeste Steinberg M.D. The [place] [address] Patient Name: RUPALI RICHARDSON MRN: [id number] date: 1940 Sex: F Assigned Patient Location: [place] Current Patient Location: [place] Accession/Order Number: [id number] Exam Date: 09/13/2023 13:00 Report Date: 09/13/2023 14:07 At the request of: CELESTE STEINBERG Procedure: FL modified barium swallow EXAMINATION: FL modified barium swallow HISTORY: PHARYNGOESOPHAGEAL DYSPHAGIA COMPARISON: No relevant comparison available. TECHNIQUE: A swallowing evaluation was performed with fluoroscopy in theusual manner. Standard level fluoroscopic mode of operation utilized. FINDINGS: ORAL PHASE: Normal deglutition. PHARYNGEAL PHASE: Slightly early spillage of thin and nectar thickenedliquid over the base of the tongue and slightly delayed/limited closure of the epiglottis. ASPIRATION: No aspiration or penetration. STRUCTURE: Normal. No visible obstruction, stricture, or dilatation. OTHER: Patient swallowed a barium tablet without difficulty or delay, but describes feeling like the tablet was stuck within her throat. FL/FL modified barium swallow IMPRESSION: 1. No aspiration or penetration despite less than optimal closure of the epiglottis and early spillage of contrast over base of tongue. Please see speech pathologist's report for further discussion. Electronically authenticated by: LES HARRIS Date: 09/13/2023 14:07 Dictated By: Les Harris M.D. Signed By:09/13/23 1410 DD/ 1407 TD/TT: Truck Driver Salesperson: us Celeste Steinberg MD IMG XR PROCEDURES Final Resul t documented in this encounter Visit Diagnoses Not on filedocumented in this encounter Care Teams Farm Or Ranch Animal Caretaker Relationship Specialty Start Date End Date Ovi Crooks DO PCP - General Internal Medicine 07/10/23 Madhavi Arriola DO [address] [place] [address] Referring Physician Neurology 04/14/24 documented as of this encounter
--- OUTSIDE RECORDS SUMMARY | 2024-09-24 06:51 | XMS_ITS | Encounter Summary ---
Author Organization [facility] Address [address] [place] [address] Care Team Providers Care Java Engineer Name Role Phone Ovi Crooks DO Primary Care Provider [phone] Madhavi Arriola DO Unavailable [phone] Encounter Details Date Type Department Care Team (Late st Contact Info) Description 11/05/2023 Orders Only [facility] [address] [facility] [address] [place] [id number] Celeste Steinberg MD [address] [facility] [address] [place], [place] [id number] Social History Tobacco Use Types Packs/Day Years [...] 12:40 PM EDT Office Visit [address] [place] [address] Brigitte Yang NP [address] [place] documented as of this encounter Procedures Procedure Name Priority Date/Time Associated Diagnosis Comments FIRMWARE ARCHITECT EVAL AND TREAT Routine 09/13/2023 4:13 PM EDT documented in this encounter Results * FIRMWARE ARCHITECT eval and treat (09/13/2023 4:13 PM EDT) us Celeste Steinberg MD FIRMWARE ARCHITECT ORDERABLES Final Result documented in this encounter Visit Diagnoses Not on filedocumented in this encounter Care Teams Java Engineer Relationship Specialty Start Date End Date Ovi Crooks DO PCP - General Internal Medicine 07/10/23 Madhavi Arriola DO [address] [place] [id number] Referring Physician Neurology 04/14/24 documented as of this encounter
--- OUTSIDE RECORDS SUMMARY | 2024-09-24 07:09 | XMS_ITS | CCD ---
Author Organization [facility] Care Team Providers Care Detailer Furniture Name Role Phone Zahler, Quinn Unavailable Unavailable Zahler, Quinn Unavailable Unavailable Zahler, Quinn Unavailable Unavailable OVI CROOKS~[phone] UNKNOWN Unavailable Unavailable Zahler, Quinn Unavailable Unavailable Zahler, Quinn Unavailable Unavailable Shelleyhler, Quinn Unavailable Unavailable OVI CROOKS~[phone] UNKNOWN Unavailable Unavailable MD Brina Morrissey Attending Provider [phone] Brina Morrissey Unavailable Ovi Crooks Unavailable DR [...] [employer] Unavailable JESSICA ., DR ELIZABETH Cenra Admitting Unavailable HANG, DR DIOR Primary Care [...] (1 source) Midazolam Drug Allergy 7 [facility] Repository (6 sources) Midazolam; Translations: [MIDAZOLAM] Drug Allergy 3 Nausea And Vomiting [facility] Repository Medications Current Medications Medication Drug [...] 07-17-2022 take 1 capsule by mo [facility] once daily Omeprazole 40 MG 1 [...] Coronary arteriosclerosis; Translations: [Atherosclerotic heart disease of [place] coronary artery without angina pectoris] Onset: 06-07-2022 [...] current use of drug therapy; Translations: [Other exterminator (current) drug therapy] Episodic Other and ill-defined [...] 04-28-2022 Episodic Other aftercare (1 source) Other exterminator (current) drug therapy; Translations: [OTH PRISON CURRENT DRUG THERAPY] Onset: 09-20-2021 Episodic Other aftercare (5 sources) Long-term current use of inhaled steroid; Translations: [exterminator (current) use of 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] Onset: 07-26-2022 [...] Basophils (Bld) [#/Vol] Automated basophil count 0.0-0.1 [facility] Basophils/100 WBC Auto (Bld) on 03-09-2024 Basophils/100 WBC (Bld) Automated basophil % Low 0.2-2.0 [facility] Eosinophils/100 WBC Auto (Bl d)on 03-09-2024 Eosinophils/100 WBC (Bld) Automated eosinophil % Low 0.9-7.0 [facility] Erythrocyte distribution wid th Auto (RBC) [Ratio]on 03-09-2024 Erythrocyte distribution width (RBC) [Ratio] Erythrocyte distribution width [Ratio] by Automated count 11.0-15.0 [facility] Estimated glomerular filtrat ion rate (GFR) non- Americanon 03-09-2024 GFR/1.73 sq M.predicted among non-blacks MDRD (S/P/Bld) [Vol rate/Area] Estimated glomerular filtration rate (GFR) non- Low >=60 mL/min/1.73m 2 [facility] Hematocrit Auto (Bld) [Volum e fraction]on 03-09-2024 Hematocrit (Bld) [Volume fraction] Hematocrit [Volume Fraction] of Blood by Automated count Low 36.0-48.0 [facility] Hemoglobin [Mass/volume] in Bloodon 03-09-2024 Hemoglobin (Bld) [Mass/Vol] Hemoglobin [Mass/volume] in Blood Low 12.0-16.0 [facility] Laboratory - Chemistry and C hemistry - challengeon 03-09-2024 Calcium [Mass/Vol] 8.9 mg/dL 8.5-10.1 [facility] Chloride [Moles/Vol] 103 mmol/L 98-107 [facility] CO2 [Moles/Vol] 21.8 mmol/L 21.0-32.0 [facility] Creatinine [Mass/Vol] 1.74 mg/dL High 0.55-1.02 [facility] GFR/1.73 sq M.predicted MDRD (S/P/Bld) [Vol rate/Area] 34 mL/min/{1.73_m2} Low >=60 mL/min/1.73m 2 [facility] Glucose [Mass/Vol] 164 mg/dL High 74-106 [facility] Potassium [Moles/Vol] 2.9 mmol/L Critically low 3.5-5.1 [facility] Comment on above: RESULTS CALLED TO KAROL VAZQUEZ RN @BY Cecile San [id number] Sodium [Moles/Vol] 141 mmol/L 136-145 [facility] Urea nitrogen [Mass/Vol] 21.0 mg/dL High 7.0-18.0 [facility] Urea nitrogen/Creatinine [Mass ratio] 12.1 mg/mg [facility] Laboratory - Hematology and Cell countson 03-09-2024 Immature granulocytes/100 WBC (Bld) 0.7 % High 0.0-0.5 [facility] Leukocytes [#/volume] correc jonnie for nucleated erythrocytes in Blood by Automated counon 03-09-2024 WBC corrected for nucl RBC Auto (Bld) [#/Vol] Leukocytes [#/volume] corrected for nucleated erythrocytes in Blood by Automated coun 4.0-11.0 [facility] Lymphocytes Auto (Bld) [#/Vo l]on 03-09-2024 Lymphocytes (Bld) [#/Vol] Lymphocytes [#/volume] in Blood by Automated count 1.2-3.8 [facility] Lymphocytes/100 WBC Auto (Bl d)on 03-09-2024 Lymphocytes/100 WBC (Bld) Lymphocytes/100 leukocytes in Blood by Automated count Low 20.5-60.0 [facility] MCH Auto (RBC) [Entitic mass ]on 03-09-2024 MCH (RBC) [Entitic mass] MCH [Entitic mass] by Automated count 26.7-34.0 [facility] MCHC Auto (RBC) [Mass/Vol]on 03-09-2024 MCHC (RBC) [Mass/Vol] MCHC [Mass/volume] by Automated count 29.9-35.2 [facility] MCV Auto (RBC) [Entitic vol] on 03-09-2024 MCV (RBC) [Entitic vol] MCV [Entitic volume] by Automated count 81.0-99.0 [facility] Monocytes Auto (Bld) [#/Vol] on 03-09-2024 Monocytes (Bld) [#/Vol] Automated blood monocyte count 0.3-0.8 [facility] Monocytes/100 WBC Auto (Bld) on 03-09-2024 Monocytes/100 WBC (Bld) Automated monocyte % 1.7-12.0 [facility] Neutrophils Auto (Bld) [#/Vo l]on 03-09-2024 Neutrophils (Bld) [#/Vol] Neutrophils [#/volume] in Blood by Automated count High 1.4-6.5 [facility] Neutrophils/100 WBC Auto (Bl d)on 03-09-2024 Neutrophils/100 WBC (Bld) Automated neutrophil % High 43.0-75.0 [facility] No Panel Informationon 03-09 Eosinophils # (Auto) 0.0 10 3/uL 0.0-0.7 [facility] Immature Granulocyte # (Auto) 0.06 10 3/uL High 0.00-0.03 [facility] Platelet mean volume Auto (B ld) [Entitic vol]on 03-09-2024 Platelet mean volume (Bld) [Entitic vol] Platelet mean volume [Entitic volume] in Blood by Automated count 9.5-13.5 [facility] Platelets Auto (Bld) [#/Vol] on 03-09-2024 Platelets (Bld) [#/Vol] Platelets [#/volume] in Blood by Automated count 150-450 [facility] RBC Auto (Bld) [#/Vol]on RBC (Bld) [#/Vol] Erythrocytes [#/volume] in Blood by Automated count Low 4.20-5.40 [facility] Serum or plasma anion gap de terminationon 03-09-2024 Anion gap [Moles/Vol] Serum or plasma an ion gap determination [facility] Basophils Auto (Bld) [#/Vol] on 03-08-2024 Basophils (Bld) [#/Vol] Automated basophil count 0.0-0.1 [facility] Basophils/100 WBC Auto (Bld) on 03-08-2024 Basophils/100 WBC (Bld) Automated basophil % 0.2-2.0 [facility] Eosinophils/100 WBC Auto (Bl d)on 03-08-2024 Eosinophils/100 WBC (Bld) Automated eosinophil % 0.9-7.0 [facility] Erythrocyte distribution wid th Auto (RBC) [Ratio]on 03-08-2024 Erythrocyte distribution width (RBC) [Ratio] Erythrocyte distribution width [Ratio] by Automated count 11.0-15.0 [facility] Estimated glomerular filtrat ion rate (GFR) non- Americanon 03-08-2024 GFR/1.73 sq M.predicted among non-blacks MDRD (S/P/Bld) [Vol rate/Area] Estimated glomerular filtration rate (GFR) non- Low >=60 mL/min/1.73m 2 [facility] Fibrin D-dimer [Presence] in Platelet poor plasma by Latex agglutinationon 03-08-2024 Fibrin D-dimer LA Ql (PPP) Fibrin D-dimer [Presence] in Platelet poor plasma by Latex agglutination Critically high <=0.59 [facility] Comment on above: RESULTS CALLED TO [...] [Mass/Vol] Serum globulin measurement by calculation (mass/volume) [facility] Hematocrit Auto (Bld) [Volum e fraction]on 03-08-2024 Hematocrit (Bld) [Volume fraction] Hematocrit [Volume Fraction] of Blood by Automated count Low 36.0-48.0 [facility] Hemoglobin [Mass/volume] in Bloodon 03-08-2024 Hemoglobin (Bld) [Mass/Vol] Hemoglobin [Mass/volume] in Blood Low 12.0-16.0 [facility] Laboratory - Chemistry and C hemistry - challengeon 03-08-2024 Albumin [Mass/Vol] 3.2 g/dL Low 3.4-5.0 [facility] ALP [Catalytic activity/Vol] 89 U/L 46-116 [facility] ALT [Catalytic activity/Vol] 156 U/L High 14-59 [facility] AST [Catalytic activity/Vol] 178 U/L High 15-37 [facility] Bilirubin [Mass/Vol] 1.4 mg/dL High 0.2-1.0 [facility] Bilirubin.direct [Mass/Vol] 0.4 mg/dL High 0.0-0.2 [facility] Lactate [Moles/Vol] 1.2 mmol/L 0.4-2.0 [facility] Lipase [Catalytic activity/Vol] 26.0 U/L 16.0-77.0 [facility] Magnesium [Mass/Vol] 1.9 mg/dL 1.8-2.4 [facility] Natriuretic peptide B (Bld) [Mass/Vol] 697.0 pg/mL <=1800.0 [facility] Protein [Mass/Vol] 6.3 g/dL Low 6.4-8.2 [facility] Bilirubin Ql (U) Negative NEGATIVE [facility] Glucose (U) [Mass/Vol] Negative NEGATIVE Fi [facility] Ketones Ql (U) Negative NEGATIVE [facility] pH (U) 7.0 [pH] 5.0-9.0 [facility] Specific gravity (U) [Rel density] 1.010 1.005-1.025 [facility] Urobilinogen Qn (U) 1.0 {Nora'U}/dL 0.2-1.0 [facility] Calcium [Mass/Vol] 9.0 mg/dL 8.5-10.1 [facility] Chloride [Moles/Vol] 106 mmol/L 98-107 [facility] CO2 [Moles/Vol] 29.0 mmol/L 21.0-32.0 [facility] Creatinine [Mass/Vol] 1.25 mg/dL High 0.55-1.02 [facility] GFR/1.73 sq M.predicted MDRD (S/P/Bld) [Vol rate/Area] 50 mL/min/{1.73_m2} Low >=60 mL/min/1.73m 2 [facility] Glucose [Mass/Vol] 111 mg/dL High 74-106 [facility] Potassium [Moles/Vol] 3.1 mmol/L Low 3.5-5.1 [facility] Sodium [Moles/Vol] 145 mmol/L 136-145 [facility] Urea nitrogen [Mass/Vol] 18.0 mg/dL 7.0-18.0 [facility] Urea nitrogen/Creatinine [Mass ratio] 14.4 mg/mg [facility] Laboratory - Hematology and Cell countson 03-08-2024 Immature granulocytes/100 WBC (Bld) 0.3 % 0.0-0.5 [facility] Laboratory - Microbiology an d Antimicrobial susceptibilityon 03-08-2024 SARS-CoV-2 (COVID-19) RNA RADHA+probe Ql (Unsp spec) Negative NEGATIVE [facility] Comment on above: This test has [...] Ql (Vag fld) Not detected NOT DETECTE [facility] Laboratory - Specimen inform ationon 03-08-2024 Appearance (U) CLEAR CLEAR [facility] Color (U) LT. YELLOW YELLOW [facility] Laboratory - Urinalysison Hyaline casts LM Ql (Urine sed) RARE [facility] Leukocyte esterase Test strip Ql (U) Negative NEGATIVE [facility] Mucus Ql (Urine sed) TRACE Abnormal NONE SEEN [facility] Nitrite Ql (U) Negative NEGATIVE [facility] Protein Ql (U) Negative NEG/TRACE [facility] Leukocytes [#/volume] correc jonnie for nucleated erythrocytes in Blood by Automated counon 03-08-2024 WBC corrected for nucl RBC Auto (Bld) [#/Vol] Leukocytes [#/volume] corrected for nucleated erythrocytes in Blood by Automated coun 4.0-11.0 [facility] Lymphocytes Auto (Bld) [#/Vo l]on 03-08-2024 Lymphocytes (Bld) [#/Vol] Lymphocytes [#/volume] in Blood by Automated count 1.2-3.8 [facility] Lymphocytes/100 WBC Auto (Bl d)on 03-08-2024 Lymphocytes/100 WBC (Bld) Lymphocytes/100 leukocytes in Blood by Automated count Low 20.5-60.0 [facility] MCH Auto (RBC) [Entitic mass ]on 03-08-2024 MCH (RBC) [Entitic mass] MCH [Entitic mass] by Automated count 26.7-34.0 [facility] MCHC Auto (RBC) [Mass/Vol]on 03-08-2024 MCHC (RBC) [Mass/Vol] MCHC [Mass/volume] by Automated count 29.9-35.2 [facility] MCV Auto (RBC) [Entitic vol] on 03-08-2024 MCV (RBC) [Entitic vol] MCV [Entitic volume] by Automated count 81.0-99.0 [facility] Monocytes Auto (Bld) [#/Vol] on 03-08-2024 Monocytes (Bld) [#/Vol] Automated blood monocyte count 0.3-0.8 [facility] Monocytes/100 WBC Auto (Bld) on 03-08-2024 Monocytes/100 WBC (Bld) Automated monocyte % 1.7-12.0 [facility] Neutrophils Auto (Bld) [#/Vo l]on 03-08-2024 Neutrophils (Bld) [#/Vol] Neutrophils [#/volume] in Blood by Automated count High 1.4-6.5 [facility] Neutrophils/100 WBC Auto (Bl d)on 03-08-2024 Neutrophils/100 WBC (Bld) Automated neutrophil % 43.0-75.0 [facility] No Panel Informationon 03-08 Troponin I High Sensitivity 9.3 pg/mL 4.0-51.3 [facility] Comment on above: CUT-OFF POINTS HAVE [...] INFORMATION. Bedside Influenza Type A Antigen Negative [facility] Comment on above: Negative for Flu A p rotein antigen. Infection due to Flu Acannot be ruled out. Flu A antigen in the sample may bebelow the detection limit of the test. Bedside Influenza Type B Antigen Negative [facility] Comment on above: Negative for Flu B p rotein antigen. Infection due to Flu Bcannot be ruled out. Flu B antigen in the sample may bebelow the detection limit of the test. Urine Bacteria TRACE #/HPF Abnormal NONE SEEN [facility] Urine [facility] Occult Blood TRACE-L NEGATIVE [facility] Urine Other Casts SEEN #/LPF Abnormal NONE SEEN [facility] Urine Other Crystals None Seen #/HPF None Seen [facility] Urine RBC 0-2 #/HPF 0-2 [facility] Urine Squamous Epithelial Cells RARE #/LPF NONE/RARE [facility] Urine WBC 0-2 #/HPF Abnormal NONE SEEN [facility] A.calcoaceticus-fadi dean cmplx PCR Not detected NOT DETECTE [facility] Bacteroides fragilis (PCR) Not detected NOT DETECTE [facility] Blood Culture Source Blood [facility] Tawnya albicans (PCR) Not detected NOT DETECTE [facility] Tawnya auris (PCR) Not detected NOT DETECTE [facility] Tawnya glabrata (PCR) Not detected NOT DETECTE [facility] Tawnya krusei (PCR) Not detected NOT DETECTE [facility] Tawnya parapsilosis (PCR) Not detected NOT DETECTE [facility] Tawnya tropicalis (PCR) Not detected NOT DETECTE [facility] Crypto neoformans/gattii (PCR)(LAB) Not detected NOT DETECTE [facility] CTX-M ESBL (PCR) NOT APPLICABLE NOT DETECTE [facility] Enterobacter cloacae complex (PCR) Not detected NOT DETECTE [facility] Enterobacterales (PCR) Not detected NOT DETECTE [facility] Enterococcus faecalis PCR Not detected NOT DETECTE [facility] Enterococcus faecium PCR Not detected NOT DETECTE [facility] Escherichia coli Result Not detected NOT DETECTE [facility] Haemophilus influenzae DNA Not detected NOT DETECTE [facility] IMP (blaIMP) Carbap Res Gene (PCR) NOT APPLICABLE NOT DETECTE [facility] Klebsiella aerogenes (PCR) Not detected NOT DETECTE [facility] Klebsiella oxytoca (PCR) Not detected NOT DETECTE [facility] Klebsiella pneumoniae group (PCR) Not detected NOT DETECTE [facility] KPC (blaKPC) Detection (PCR) NOT APPLICABLE NOT DETECTE [facility] Listeria monocytogenes (PCR) Not detected NOT DETECTE [facility] MCR-1 Resistance Gene NOT APPLICABLE NOT DETECT E [facility] mecA/C & MREJ Antimicrob Resist Gen NOT APPLICABLE NOT DETECTE [facility] mecA/C-Methicillin Resistance Gene NOT APPLICABLE NOT DETECTE [facility] NDM (blaNDM) Detection (PCR) NOT APPLICABLE NOT DETECTE [facility] Neisseria meningitidis (PCR) Not detected NOT DETECTE [facility] Proteus species (PCR) Not detected NOT DETECTE [facility] Pseudomonas aeruginosa (PCR) Not detected NOT DETECTE [facility] Salmonella spp. (PCR) Not detected NOT DETECTE [facility] Serratia marcescens (PCR) Not detected NOT DETECTE [facility] Staphylococcus aureus (PCR)(LAB) Not detected NOT DETECTE [facility] Staphylococcus epidermidis (PCR) Not detected NOT DETECTE [facility] Staphylococcus lugdunensis (TEM-PCR Not detected NOT DETECTE [facility] Staphylococcus species (PCR) Not detected NOT DETECTE [facility] Stenotroph. maltophilia (PCR) Not detected NOT DETECTE [facility] Streptococcus pneumoniae (PCR) Not detected NOT DETECTE [facility] Streptococcus pyogenes (PCR)(LAB) Not detected NOT DETECTE [facility] Streptococcus species (PCR) Not detected NOT DETECTE [facility] Syn OXA-48-like Carb Res Gene (PCR) NOT APPLICABLE NOT DETECTE [facility] Giovanny/B-Vancomycin Resistance Genes NOT APPLICABLE NOT DETECTE [facility] VIM (blaVIM) Carbap Res Gene (PCR) NOT APPLICABLE NOT DETECTE [facility] Eosinophils # (Auto) 0.1 10 3/uL 0.0-0.7 [facility] Immature Granulocyte # (Auto) 0.03 10 3/uL 0.00-0.03 [facility] No Panel InformationOrdered By: Rich Carcamo on 03-08-2024 Anaerobe Identification Only [facility] Blood Culture 1 [facility] Platelet mean volume Auto (B ld) [Entitic vol]on 03-08-2024 Platelet mean volume (Bld) [Entitic vol] Platelet mean volume [Entitic volume] in Blood by Automated count 9.5-13.5 [facility] Platelets Auto (Bld) [#/Vol] on 03-08-2024 Platelets (Bld) [#/Vol] Platelets [#/volume] in Blood by Automated count 150-450 [facility] RBC Auto (Bld) [#/Vol]on RBC (Bld) [#/Vol] Erythrocytes [#/volume] in Blood by Automated count Low 4.20-5.40 [facility] Serum or plasma albumin/glob ulin mass ratioon 03-08-2024 Albumin/Globulin [Mass ratio] Serum or plasma albumin/globulin mass ratio [facility] Serum or plasma anion gap de terminationon 03-08-2024 Anion gap [Moles/Vol] Serum or plasma an ion gap determination [facility] Basophils Auto (Bld) [#/Vol] on 11-07-2023 Basophils (Bld) [#/Vol] 0.0 10 3/uL 0.0-0.1 [facility] Basophils/100 WBC Auto (Bld) on 11-07-2023 Basophils/100 WBC (Bld) 0.4 % 0.2-2.0 [facility] Eosinophils/100 WBC Auto (Bl d)on 11-07-2023 Eosinophils/100 WBC (Bld) 2.6 % 0.9-7.0 [facility] Erythrocyte distribution wid th Auto (RBC) [Ratio]on 11-07-2023 Erythrocyte distribution width (RBC) [Ratio] 13.3 % 11.0-15.0 [facility] Estimated glomerular filtrat ion rate (GFR) non- Americanon 11-07-2023 GFR/1.73 sq M.predicted among non-blacks MDRD (S/P/Bld) [Vol rate/Area] 45 mL/min/{1.73_m2} Low >=60 [facility] Hematocrit Auto (Bld) [Volum e fraction]on 11-07-2023 Hematocrit (Bld) [Volume fraction] 35.4 % Low 36.0-48.0 [facility] Hemoglobin [Mass/volume] in Bloodon 11-07-2023 Hemoglobin (Bld) [Mass/Vol] 11.8 g/dL Low 12.0-16.0 [facility] Iron binding capacity [Mass/ volume] in Serum or Plasmaon 11-07-2023 Iron binding capacity [Mass/Vol] 258.0 ug/dL 250.0-450.0 [facility] Iron saturation [Mass Fracti on] in Serum or Plasmaon 11-07-2023 Iron saturation [Mass fraction] 31.8 % [facility] Laboratory - Chemistry and C hemistry - challengeon 11-07-2023 Calcium [Mass/Vol] 10.0 mg/dL 8.5-10.1 [facility] Chloride [Moles/Vol] 102 mmol/L 98-107 [facility] CO2 [Moles/Vol] 30.7 mmol/L 21.0-32.0 [facility] Cobalamin (Vitamin B12) [Mass/Vol] 344.0 pg/mL 193.0-986.0 [facility] Creatinine [Mass/Vol] 1.17 mg/dL High 0.55-1.02 [facility] Ferritin [Mass/Vol] 154.0 ng/mL 8.0-252.0 [facility] GFR/1.73 sq M.predicted MDRD (S/P/Bld) [Vol rate/Area] 54 mL/min/{1.73_m2} Low >=60 [facility] Glucose [Mass/Vol] 107 mg/dL High 74-106 [facility] Iron [Mass/Vol] 82.0 ug/dL 50.0-170.0 [facility] Potassium [Moles/Vol] 3.5 mmol/L 3.5-5.1 [facility] Sodium [Moles/Vol] 141 mmol/L 136-145 [facility] Urea nitrogen [Mass/Vol] 15.0 mg/dL 7.0-18.0 [facility] Urea nitrogen/Creatinine [Mass ratio] 12.8 mg/mg [facility] Laboratory - Hematology and Cell countson 11-07-2023 Immature granulocytes/100 WBC (Bld) 0.2 % 0.0-0.5 [facility] Leukocytes [#/volume] correc jonnie for nucleated erythrocytes in Blood by Automated counon 11-07-2023 WBC corrected for nucl RBC Auto (Bld) [#/Vol] 5.3 10 3/uL 4.0-11.0 [facility] Lymphocytes Auto (Bld) [#/Vo l]on 11-07-2023 Lymphocytes (Bld) [#/Vol] 1.9 10 3/uL 1.2-3.8 [facility] Lymphocytes/100 WBC Auto (Bl d)on 11-07-2023 Lymphocytes/100 WBC (Bld) 35.4 % 20.5-60.0 [facility] MCH Auto (RBC) [Entitic mass ]on 11-07-2023 MCH (RBC) [Entitic mass] 30.6 pg 26.7-34.0 [facility] MCHC Auto (RBC) [Mass/Vol]on 11-07-2023 MCHC (RBC) [Mass/Vol] 33.3 g/dL 29.9-35.2 [facility] MCV Auto (RBC) [Entitic vol] on 11-07-2023 MCV (RBC) [Entitic vol] 91.7 fL 81.0-99.0 [facility] Monocytes Auto (Bld) [#/Vol] on 11-07-2023 Monocytes (Bld) [#/Vol] 0.6 10 3/uL 0.3-0.8 [facility] Monocytes/100 WBC Auto (Bld) on 11-07-2023 Monocytes/100 WBC (Bld) 12.1 % High 1.7-12.0 [facility] Neutrophils Auto (Bld) [#/Vo l]on 11-07-2023 Neutrophils (Bld) [#/Vol] 2.6 10 3/uL 1.4-6.5 [facility] Neutrophils/100 WBC Auto (Bl d)on 11-07-2023 Neutrophils/100 WBC (Bld) 49.3 % 43.0-75.0 [facility] No Panel Informationon 11-06 Eosinophils # (Auto) 0.1 10 3/uL 0.0-0.7 [facility] Folate 17.80 ng/mL 8.60-58.90 [facility] Immature Granulocyte # (Auto) 0.01 10 3/uL 0.00-0.03 [facility] Platelet mean volume Auto (B ld) [Entitic vol]on 11-07-2023 Platelet mean volume (Bld) [Entitic vol] 12.2 fL 9.5-13.5 [facility] Platelets Auto (Bld) [#/Vol] on 11-07-2023 Platelets (Bld) [#/Vol] 190 10 3/uL 150-450 [facility] RBC Auto (Bld) [#/Vol]on RBC (Bld) [#/Vol] 3.86 10 6/uL Low 4.20-5.40 [facility] Serum or plasma anion gap de terminationon 11-07-2023 Anion gap [Moles/Vol] 11.8 mmol/L [facility] Office Visiton 01-05-2023 Follow-up visit [id number] Giovanna Richardson 1940 F Date Provider Department Center 01/05/2023 [id number] MEDEIROS [facility] Family History Problem Relation Age of Onset No Known Problems Mother No Known Problems Father Family Status - Relation Status Age at Mother Father Level of Service:02257 [place] OFFICE/OUTPATIENT ESTABLISHED LOW MDM 20-29 MIN Normal [facility] FUNGAL AB QUANTITAIVE DOUBLE IMMUNODIFFUon 07-30-2022 Aspergillus flavus Negative Normal Neg:<1:1 [facility] Comment on above: Performed By: #### F UNGUYI #### [facility] [address] [address] [address] Milena Rosa Aspergillus fumigatus Negative Normal Neg:<1:1 [facility] Comment on above: Performed By: #### F UNGUYI #### [facility] [address] [address] [address] Milena Rosa Aspergillus niger Negative Normal Neg:<1:1 [facility] Comment on above: Performed By: #### F UNGUYI #### [facility] [address] [address] [address] Milena Rosa Blastomyces Negative Normal Neg:<1:1 [facility] Comment on above: Performed By: #### F UNGUYI #### [facility] [address] [address] [address] Milena Rosa HISTOPLASMA GALACTOMANNAN AG URINEon 07-30-2022 Histoplasma Gal'rosales Ag <0.5 Normal <0.5 ng/mL [facility] Comment on above: Performed By: #### H ISTGAL ####[facility] [address]Dr. Milena Rosa COCCIDIODES IGG/IGM AB BY IF Aon 07-29-2022 Coccidiodes Ab, IgG EIA 0.[address] [facility] Comment on above: Result Comment: Nega tive <1.0 Indeterminate 1.0-1.4 Positive >1.4 Performed By: #### C OCCABS #### [facility] [address] [address] [address] Milena Rosa Coccidiodes Ab, IgM, EIA 0.[address] [facility] Comment on above: Result Comment: Nega tive <1.0 Indeterminate 1.0-1.4 Positive >1.4 Performed By: #### C OCCABS #### [facility] [address] [place], [place] [address] Dr. Milena Rosa HISTOPLASMA CAP AB QUANT DID on 07-29-2022 Histoplasma Mycelial CF Ab. Negative Normal Neg:<1:2 [facility] Comment on above: Performed By: #### H ISTDID ####[facility] [address] [place], [place] [address]EtDr. Milena Rosa Histoplasma Yeast CF Ab Negative Normal Neg:<1:2 [facility] Comment on above: Performed By: #### H ISTDID ####[facility] [address] [place], [place] [address]UdDr. Milena Rosa Office Visiton 07-26-2022 Follow-up visit [id number] Giovanna Richardson 1940 F Date Provider Department Center 07/26/2022 Kamilah8-JEMAL MEDEIROS [facility] Family History Problem Relation Age of Onset No Known Problems Mother No Known Problems Father Family Status - Relation Status Age at Mother Father Level of Service:69195 UT OFFICE/OUTPATIENT ESTABLISHED MOD MDM 30-39 MIN Reason for Visit and Comments: Follow-up [033571] - 6 weeks- Go over Holter monitor results- Discuss medications Normal [facility] CT CHEST WO CONon 07-19-2022 CT [...] WILLIAM BERMEO Date: 2022-07-19 14:55 Normal [facility] Office Visiton 06-07-2022 Follow-up visit [id number] Giovanna Richardson 1940 F Date Provider Department Center 06/07/2022 3848-JEMAL MEDEIROS [facility] Family History Problem Relation Age of Onset No Known Problems Mother No Known Problems Father Family Status - Relation Status Age at Mother Father Level of Service:34923 UT OFFICE/OUTPATIENT ESTABLISHED MOD MDM 30-39 MIN Reason for Visit and Comments: Post-Cath [731] Normal [facility] CBC AUTO DIFFon 05-15-2022 BASO # 0.0 103/ul Normal 0.0-0.1 [facility] Comment on above: Performed By: #### C BC #### [facility] [address] [place] [address] Dr. Milena Rosa Basophils/100 WBC (Bld) 0.3 % Normal 0.2-2.0 [facility] Comment on above: Performed By: #### C BC #### [facility] [address] [place], [place] [address] Dr. Milena Rosa EO # 0.2 103/ul Normal 0.0-0.7 [facility] Comment on above: Performed By: #### C BC #### [facility] [address] [place] [address] Dr. Milena Rosa Eosinophils/100 WBC (Bld) 2.8 % Normal 0.9-7.0 [facility] Comment on above: Performed By: #### C BC #### [facility] [address] [place] [address] Dr. Milena Rosa Erythrocyte distribution width (RBC) [Ratio] 13.3 % Normal 11.0-15.0 [facility] Comment on above: Performed By: #### C BC #### [facility] [address] [place] [address] Dr. Milena Rosa Hematocrit (Bld) [Volume fraction] 38.5 % Normal 36.0-48.0 [facility] Comment on above: Performed By: #### C BC #### [facility] [address] [place] [address] Dr. Milena Rosa Hemoglobin (Bld) [Mass/Vol] 12.6 g/dL Normal 12.0-16.0 [facility] Comment on above: Performed By: #### C BC #### [facility] [address] [place] [address] Dr. Milena Rosa IG # 0.02 10e3/ul Normal 0.00-0.03 [facility] Comment on above: Performed By: #### C BC #### [facility] [address] [place] [address] Dr. Milena Rosa IG % 0.3 % Normal 0.0-0.5 [facility] Comment on above: Performed By: #### C BC #### [facility] [address] [place] [address] Dr. Milena Rosa LYMPH # 2.5 103/ul Normal 1.2-3.8 [facility] Comment on above: Performed By: #### C BC #### [facility] [address] [place] [address] Dr. Milena Rosa Lymphocytes/100 WBC (Bld) 37.6 % Normal 20.5-60.0 [facility] Comment on above: Performed By: #### C BC #### [facility] [address] [place] [address] Dr. Milena Rosa MANUAL DIFF REQ NO Normal [facility] Comment on above: Performed By: #### C BC #### [facility] [address] [place] [address] Dr. Milena Rosa MCH (RBC) [Entitic mass] 29.8 pg Normal 26.7-34.0 [facility] Comment on above: Performed By: #### C BC #### [facility] [address] [place] [address] Dr. Milena Rosa MCHC (RBC) [Mass/Vol] 32.7 g/dL Normal 29.9-35.2 [facility] Comment on above: Performed By: #### C BC #### [facility] [address] [place] [address] Dr. Milena Rosa MCV (RBC) [Entitic vol] 91.0 fL Normal 81.0-99.0 [facility] Comment on above: Performed By: #### C BC #### [facility] [address] [place] [address] Dr. Milena Rosa MONO # 0.7 103/ul Normal 0.3-0.8 [facility] Comment on above: Performed By: #### C BC #### [facility] [address] [place] [address] Dr. Milena Rosa Monocytes/100 WBC (Bld) 10.0 % Normal 1.7-12.0 [facility] Comment on above: Performed By: #### C BC #### [facility] [address] [place] [address] Dr. Milena Rosa NEUT # 3.3 103/ul Normal 1.4-6.5 [facility] Comment on above: Performed By: #### C BC #### [facility] [address] [place] [address] Dr. Milena Rosa Neutrophils/100 WBC (Bld) 49.0 % Normal 43.0-75.0 [facility] Comment on above: Performed By: #### C BC #### [facility] [address] [place] [address] Dr. Milena Rosa Platelet mean volume (Bld) [Entitic vol] 11.5 fL Normal 9.5-13.5 [facility] Comment on above: Performed By: #### C BC #### [facility] [address] [place] [address] Dr. Milena Rosa PLT 201 103/ul Normal 150-450 [facility] Comment on above: Performed By: #### C BC #### [facility] [address] [place] [address] Dr. Milena Rosa RBC 4.23 106/ul Normal 4.20-5.40 [facility] Comment on above: Performed By: #### C BC #### [facility] [address] [place] [address] Dr. Milena Rosa WBC 6.7 103/ul Normal 4.0-11.0 [facility] Comment on above: Performed By: #### C BC #### [facility] [address] [place] [address] Dr. Milena Rosa Covid-19 PCR ([facility])on 04-30 SARS-CoV-2 (COVID-19) RNA RADHA+probe Ql (Unsp spec) Not detected Normal NOT DETECTED [facility] Comment on above: Result Comment: This test is not yet approved or cleared by the [place] FDA. When there are no FDA-approved or cleared tests available, and other criteria are met, FDA can make tests available under an emergency access mechanism called an Emergency Use Authorization (EUA). The EUA for this test is supported by the Assistant Curator of Health and Human Service's (HHS's) declaration [...] with SARS-CoV-2. Performed By: #### C VDTBH ####[facility] [address] [place], [place] [address]QiDr. Milena Rosa PROF CHEM 8 (BAS METB)on Anion gap [Moles/Vol] 13.1 mmol/L Normal [facility] Comment on above: Performed By: #### B MP #### [facility] [address] [address] [address] Milena Rosa Calcium [Mass/Vol] 9.8 mg/dL Normal 8.5-10.1 [facility] Comment on above: Performed By: #### B MP #### [facility] [address] [address] [address] Milena Rosa Chloride [Moles/Vol] 103 mmol/L Normal 98-107 [facility] Comment on above: Performed By: #### B MP #### [facility] [address] [address] [address] Milena Rosa CO2 [Moles/Vol] 26.7 mmol/L Normal 21.0-32.0 [facility] Comment on above: Performed By: #### B MP #### [facility] [address] [address] [address] Milena Rosa Creatinine [Mass/Vol] 0.95 mg/dL Normal 0.55-1.02 [facility] Comment on above: Performed By: #### B MP #### [facility] [address] [address] [address] Milena Rosa EGFR-AF IRANIAN >60 Normal >=60 [facility] Comment on above: Performed By: #### B MP #### [facility] [address] [address] [address] Milena Rosa EGFR-NON AF IRANIAN 57 mL/min/1.73m2 Critically low >=60 [facility] Comment on above: Performed By: #### B MP #### [facility] [address] [address] [address] Milena Rosa Glucose [Mass/Vol] 93 mg/dL Normal 74-106 [facility] Comment on above: Performed By: #### B MP #### [facility] [address] [address] [address] Milena Rosa Potassium [Moles/Vol] 3.8 mmol/L Normal 3.5-5.1 [facility] Comment on above: Performed By: #### B MP #### [facility] [address] [address] [address] Milena Rosa Sodium [Moles/Vol] 139 mmol/L Normal 136-145 [facility] Comment on above: Performed By: #### B MP #### [facility] [address] [address] [address] Milena Rosa Urea nitrogen [Mass/Vol] 18.0 mg/dL Normal 7.0-18.0 [facility] Comment on above: Performed By: #### B MP #### [facility] [address] [address] [address] Milena Rosa Urea nitrogen/Creatinine [Mass ratio] 18.9 mg/mg Normal [facility] Comment on above: Performed By: #### B MP #### [facility] [address] [address] [address] Milena Rosa NM STRESS/REST MULTIon 04-28 NM STRESS/REST MULTI Patient: GIOVANNA RICHARDSON Exam Date: 04/28/2022 : 1940 Gender:F Ordering : DR OVI CROOKS D.O. Admission #: [id number] Family : Order #: [id number] CLICK HERE TO VIEW EXAM RADIOLOGY REPORT [...] MD on 04/28/2022 at 14:26 Normal [facility] CBC AUTO DIFFon 02-27-2022 BASO # 0.0 103/ul Normal 0.0-0.1 [facility] Comment on above: Performed By: #### C BC ####[facility] [address] [address]Dr. Milena Rosa Basophils/100 WBC (Bld) 0.5 % Normal 0.2-2.0 [facility] Comment on above: Performed By: #### C BC ####[facility] [address] [address]Dr. Milena Rosa EO # 0.1 103/ul Normal 0.0-0.7 [facility] Comment on above: Performed By: #### C BC ####[facility] [address] [place], [place] [address]Dr. Milena Moe Eosinophils/100 WBC (Bld) 1.9 % Normal 0.9-7.0 [facility] Comment on above: Performed By: #### C BC ####[facility] [address] [address]Dr. Milena Moe Erythrocyte distribution width (RBC) [Ratio] 14.3 % Normal 11.0-15.0 [facility] Comment on above: Performed By: #### C BC ####[facility] [address] [id number]. Milena Rosa Hematocrit (Bld) [Volume fraction] 37.6 % Normal 36.0-48.0 [facility] Comment on above: Performed By: #### C BC ####[facility] [address] [address]Dr. Milena Rosa Hemoglobin (Bld) [Mass/Vol] 12.6 g/dL Normal 12.0-16.0 [facility] Comment on above: Performed By: #### C BC ####[facility] [address] [address]Dr. Milena Moe IG # 0.02 10e3/ul Normal 0.00-0.03 [facility] Comment on above: Performed By: #### C BC ####[facility] [address] [address]Dr. Milena Rosa IG % 0.3 % Normal 0.0-0.5 [facility] Comment on above: Performed By: #### C BC ####[facility] [address] [address]Dr. Kimberleychinedu Rosa LYMPH # 2.1 103/ul Normal 1.2-3.8 [facility] Comment on above: Performed By: #### C BC ####[facility] [address] [address]Dr. Kimberleychinedu oRsa Lymphocytes/100 WBC (Bld) 33.2 % Normal 20.5-60.0 [facility] Comment on above: Performed By: #### C BC ####[facility] [address] [address]Dr. Kimberleychinedu Rosa MANUAL DIFF REQ NO Normal [facility] Comment on above: Performed By: #### C BC ####[facility] [address] [address]Dr. Milena Moe MCH (RBC) [Entitic mass] 30.9 pg Normal 26.7-34.0 [facility] Comment on above: Performed By: #### C BC ####[facility] [address] [place] [address]Ho. Milena Rosa MCHC (RBC) [Mass/Vol] 33.5 g/dL Normal 29.9-35.2 [facility] Comment on above: Performed By: #### C BC ####[facility] [address] [id number]. Milena Rosa MCV (RBC) [Entitic vol] 92.2 fL Normal 81.0-99.0 [facility] Comment on above: Performed By: #### C BC ####[facility] [address] [id number]. Milena Moe MONO # 0.6 103/ul Normal 0.3-0.8 [facility] Comment on above: Performed By: #### C BC ####[facility] [address] [address]Dr. Kimberleychinedu Rosa Monocytes/100 WBC (Bld) 8.9 % Normal 1.7-12.0 [facility] Comment on above: Performed By: #### C BC ####[facility] [address] [place], [place] [id number]. Milena Rosa NEUT # 3.5 103/ul Normal 1.4-6.5 [facility] Comment on above: Performed By: #### C BC ####[facility] [address] [place], [place] [address]Dr. Milena Rosa Neutrophils/100 WBC (Bld) 55.2 % Normal 43.0-75.0 [facility] Comment on above: Performed By: #### C BC ####[facility] [address] [id number]. Milena Rosa Platelet mean volume (Bld) [Entitic vol] 11.6 fL Normal 9.5-13.5 [facility] Comment on above: Performed By: #### C BC ####[facility] [address] [id number]. Milena Moe PLT 217 103/ul Normal 150-450 [facility] Comment on above: Performed By: #### C BC ####[facility] [address] [place], [place] [address]Xr. Milena Rosa RBC 4.08 106/ul Critically low 4.20-5.40 [facility] Comment on above: Performed By: #### C BC ####[facility] [address] [place], [place] [address]TvElia Rosa WBC 6.3 103/ul Normal 4.0-11.0 [facility] Comment on above: Performed By: #### C BC ####[facility] [address] [place], [place] [address]Lu. Milena Rosa ECHOCARDIO M/2D COMPLETEon 1 ECHOCARDIO M/2D COMPLETE Patient: GIOVANNA RICHARDSON Exam Date: 02/27/2022 : 1940 Gender:F Ordering : DR OVI CROOKS D.O. Admission #: [id number] Family : Order #: [id number] CLICK HERE TO VIEW EXAM ECHOCARDIOGRAM REPORT [...] M.D. on 03/01/2022 at 11:53 Normal [facility] PROF CHEM 8 (BAS B)on Anion gap [Moles/Vol] 6.1 mmol/L Normal [facility] Comment on above: Performed By: #### B TERESA, TSH #### [facility] [address] [place] [address] Dr. Milena Rosa Calcium [Mass/Vol] 9.0 mg/dL Normal 8.5-10.1 [facility] Comment on above: Performed By: #### B TERESA, TSH #### [facility] [address] [address] [address] Milena Rosa Chloride [Moles/Vol] 103 mmol/L Normal 98-107 [facility] Comment on above: Performed By: #### B TERESA, TSH #### [facility] [address] [place] [address] Dr. Milena Rosa CO2 [Moles/Vol] 34.4 mmol/L Critically high 21.0-32.0 [facility] Comment on above: Performed By: #### B TERESA, TSH #### [facility] [address] [place] [address] Dr. Milena Rosa Creatinine [Mass/Vol] 1.21 mg/dL Critically high 0.55-1.02 [facility] Comment on above: Performed By: #### B TERESA, TSH #### [facility] [address] [place] [address] Dr. Milena Rosa EGFR-AF IRANIAN 52 mL/min/1.73m2 Critically low >=60 [facility] Comment on above: Performed By: #### B TERESA, TSH #### [facility] [address] [place] [address] Dr. Milena Rosa EGFR-NON AF IRANIAN 43 mL/min/1.73m2 Critically low >=60 [facility] Comment on above: Performed By: #### B TERESA, TSH #### [facility] [address] [place] [address] Dr. Milena Rosa Glucose [Mass/Vol] 101 mg/dL Normal 74-106 [facility] Comment on above: Performed By: #### B TERESA, TSH #### [facility] [address] [place] [address] Dr. Milena Rosa Potassium [Moles/Vol] 3.5 mmol/L Normal 3.5-5.1 [facility] Comment on above: Performed By: #### B MP, TSH #### [facility] [address] [address] [address] Milena Rosa Sodium [Moles/Vol] 140 mmol/L Normal 136-145 [facility] Comment on above: Performed By: #### B MP, TSH #### [facility] [address] [address] [address] Milena Rosa Urea nitrogen [Mass/Vol] 20.0 mg/dL Critically high 7.0-18.0 [facility] Comment on above: Performed By: #### B MP, TSH #### [facility] [address] [place] [address] Dr. Milena Rosa Urea nitrogen/Creatinine [Mass ratio] 16.5 mg/mg Normal [facility] Comment on above: Performed By: #### B MP, TSH #### [facility] [address] [place] [address] Dr. Milena Rosa TSHon 02-27-2022 TSH 1.640 uIU/mL Normal 0.358-3.740 [facility] Comment on above: Performed By: #### B MP, TSH #### [facility] [address] [place] [address] Dr. Milena Rosa XR CHEST 2 Von [...] WHITNEY FOURNIER Date: 2022-02-27 13:49 Normal [facility] MRI LSPINE WO CONon 01-10-20 MRI [facility] [place] CON EXAMINATION: [place] H[place]ORY: Lumbar spondylosis ; chronic [...] by: WILLIAM BERMEO Date: 2022-01-09 16:[address] [facility] XR hand BI 3Von 12-21-2021 XR hand BI 3V [facility] [address] [place] [address] XRay Report Signed Patient: Giovanna Richardson MR#: [id number] : 1940 Acct:[id number] Age/Sex: 81 / F ADM Date: 12/21/21 Loc: [facility] [place] Room: Type: [facility] Attending Dr: Brina Morrissey MD Copies [...] Caal Jr., DEliaOElia12/21/2021 2:31 PM Dictation Location: [place] [address] Transcribed By: [facility] 12/21/21 1431 Dictated By: Erasmo Caal Jr, DO 12/21/21 1427 Signed By: 12/21/21 1431 [facility] CBC AUTO DIFFon 09-14-2021 BASO # 0.0 103/ul Normal 0.0-0.1 [facility] Comment on above: Performed By: #### C BC #### [facility] [address] [place], [place] [address] Dr. Milena Rosa Basophils/100 WBC (Bld) 0.2 % Normal 0.2-2.0 [facility] Comment on above: Performed By: #### C BC #### [facility] [address] [place] [address] Dr. Milena Rosa EO # 0.1 103/ul Normal 0.0-0.7 [facility] Comment on above: Performed By: #### C BC #### [facility] [address] [place] [address] Dr. Milena Rosa Eosinophils/100 WBC (Bld) 2.8 % Normal 0.9-7.0 [facility] Comment on above: Performed By: #### C BC #### [facility] [address] [place] [address] Dr. Milena Rosa Erythrocyte distribution width (RBC) [Ratio] 13.4 % Normal 11.0-15.0 [facility] Comment on above: Performed By: #### C BC #### [facility] [address] [place] [address] Dr. Milena Rosa Hematocrit (Bld) [Volume fraction] 38.2 % Normal 36.0-48.0 [facility] Comment on above: Performed By: #### C BC #### [facility] [address] [place] [address] Dr. Milena oRsa Hemoglobin (Bld) [Mass/Vol] 12.5 g/dL Normal 12.0-16.0 [facility] Comment on above: Performed By: #### C BC #### [facility] [address] [place] [address] Dr. Milena Rosa IG # 0.02 10e3/ul Normal 0.00-0.03 [facility] Comment on above: Performed By: #### C BC #### [facility] [address] [place] [address] Dr. Milena Rosa IG % 0.4 % Normal 0.0-0.5 [facility] Comment on above: Performed By: #### C BC #### [facility] [address] [place] [address] Dr. Milena Rosa LYMPH # 2.1 103/ul Normal 1.2-3.8 [facility] Comment on above: Performed By: #### C BC #### [facility] [address] [place] [address] Dr. Milena Rosa Lymphocytes/100 WBC (Bld) 40.5 % Normal 20.5-60.0 [facility] Comment on above: Performed By: #### C BC #### [facility] [address] [place] [address] Dr. Milena Rosa MANUAL DIFF REQ NO Normal [facility] Comment on above: Performed By: #### C BC #### [facility] [address] [place] [address] Dr. Milena Rosa MCH (RBC) [Entitic mass] 29.7 pg Normal 26.7-34.0 [facility] Comment on above: Performed By: #### C BC #### [facility] [address] [place] [address] Dr. Milena Rosa MCHC (RBC) [Mass/Vol] 32.7 g/dL Normal 29.9-35.2 [facility] Comment on above: Performed By: #### C BC #### [facility] [address] [place] [address] Dr. Milena Rosa MCV (RBC) [Entitic vol] 90.7 fL Normal 81.0-99.0 [facility] Comment on above: Performed By: #### C BC #### [facility] [address] [place] [address] Dr. Milena Rosa MONO # 0.6 103/ul Normal 0.3-0.8 [facility] Comment on above: Performed By: #### C BC #### [facility] [address] [place] [address] Dr. Milena Rosa Monocytes/100 WBC (Bld) 12.0 % Normal 1.7-12.0 [facility] Comment on above: Performed By: #### C BC #### [facility] [address] [place] [address] Dr. Milena Rosa NEUT # 2.3 103/ul Normal 1.4-6.5 [facility] Comment on above: Performed By: #### C BC #### [facility] [address] [place] [address] Dr. Milena Rosa Neutrophils/100 WBC (Bld) 44.1 % Normal 43.0-75.0 [facility] Comment on above: Performed By: #### C BC #### [facility] [address] [address] [address] Milena Rosa Platelet mean volume (Bld) [Entitic vol] 11.7 fL Normal 9.5-13.5 [facility] Comment on above: Performed By: #### C BC #### [facility] [address] [address] [address] Milena Rosa PLT 206 103/ul Normal 150-450 [facility] Comment on above: Performed By: #### C BC #### [facility] [address] [address] [address] Milena Rosa RBC 4.21 106/ul Normal 4.20-5.40 [facility] Comment on above: Performed By: #### C BC #### [facility] [address] [place] [address] Dr. Milena Rosa WBC 5.1 103/ul Normal 4.0-11.0 [facility] Comment on above: Performed By: #### C BC #### [facility] [address] [place] [address] Dr. Milena Rosa MG MAMM SCREEN 3D SHERICE CADon 09-14-2021 MG MAMM SCREEN 3D SHERICE CAD Patient: GIOVANNA RICHARDSON Exam Date: 09/14/2021 : 1940 Gender:F Ordering : DR OVI CROOKS D.O. Admission #: [id number] Family : Order #: [id number] CLICK HERE TO VIEW EXAM RADIOLOGY REPORT [...] Treatments None Family Cancers None LOCATION: [facility] BREAST COMPOSITION: Scattered areas fibroglandular density. [...] Ziegler MD on 09/14/2021 at 10:[address] [facility] PROF CHEM 8 (BAS METB)on Anion gap [Moles/Vol] 10.5 mmol/L Normal [facility] Comment on above: Performed By: #### B MP #### [facility] [address] [place] [address] Dr. Milena Rosa Calcium [Mass/Vol] 9.5 mg/dL Normal 8.5-10.1 [facility] Comment on above: Performed By: #### B MP #### [facility] [address] [place] [address] Dr. Milena Rosa Chloride [Moles/Vol] 101 mmol/L Normal 98-107 [facility] Comment on above: Performed By: #### B MP #### [facility] [address] [place] [address] Dr. Milena Rosa CO2 [Moles/Vol] 31.1 mmol/L Normal 21.0-32.0 [facility] Comment on above: Performed By: #### B MP #### [facility] [address] [place] [address] Dr. Milena Rosa Creatinine [Mass/Vol] 1.01 mg/dL Normal 0.55-1.02 [facility] Comment on above: Performed By: #### B MP #### [facility] [address] [place] [address] Dr. Milena Rosa EGFR-AF IRANIAN >60 Normal >=60 [facility] Comment on above: Performed By: #### B MP #### [facility] [address] [place] [address] Dr. Milena Rosa EGFR-NON AF IRANIAN 53 mL/min/1.73m2 Critically low >=60 [facility] Comment on above: Performed By: #### B MP #### [facility] [address] [address] [address] Milena Rosa Glucose [Mass/Vol] 96 mg/dL Normal 74-106 [facility] Comment on above: Performed By: #### B MP #### [facility] [address] [address] [address] Milena Rosa Potassium [Moles/Vol] 3.6 mmol/L Normal 3.5-5.1 [facility] Comment on above: Performed By: #### B MP #### [facility] [address] [address] [address] Milena Rosa Sodium [Moles/Vol] 139 mmol/L Normal 136-145 [facility] Comment on above: Performed By: #### B MP #### [facility] [address] [address] [address] Milena Rosa Urea nitrogen [Mass/Vol] 20.0 mg/dL Critically high 7.0-18.0 [facility] Comment on above: Performed By: #### B MP #### [facility] [address] [address] [address] Milena Rosa Urea nitrogen/Creatinine [Mass ratio] 19.8 mg/mg Normal [facility] Comment on above: Performed By: #### B MP #### [facility] [address] [address] [address] Milena Rosa Coding Summary.on 12-26-2017 Coding Summary. CODING DATE: 12/26/2017 FINAL [facility] STATUS: Home (Routine DC) PAYOR: Medicare APC DESCRIPTION 5[facility] Procedures ADMIT DX: REASON FOR VISIT DX: H26.492 Other secondary cataract, left eye FINAL DX: PRINCIPAL: H26.492 Other secondary cataract, left eye SECONDARY: PYMT PROC APC STAT DESCRIPTION DOCTOR NAME DATE [id number] T Discission of secondary Quinn Armendariz DO [...] Isha Eddy Date Saved: 12/26/2017 11:03 am [facility] Coding Summary.on 12-19-2017 Coding Summary. CODING DATE: 12/19/2017 FINAL [facility] STATUS: Home (Routine DC) PAYOR: Medicare APC DESCRIPTION 5[facility] Procedures ADMIT DX: REASON FOR VISIT DX: H26.40 Unspecified secondary cataract FINAL DX: PRINCIPAL: H26.40 Unspecified secondary cataract SECONDARY: PYMT PROC APC STAT DESCRIPTION DOCTOR NAME DATE [id number] Discission of secondary Quinn Armendariz DO [...] Shilpa Perez Date Saved: 12/19/2017 09:21 am [facility] Vital Signs Date Time Vital Sign Value Performing Clinician Facility 08-25-2024 09:56-0400 Body height 151.13 cm [facility] 08-25-2024 09:56-0400 Body mass index (BMI) [Ratio] 30.7 kg/m2 [facility] 08-25-2024 09:56-0400 Body weight 70.02 kg [facility] 08-25-2024 09:56-0400 Diastolic blood pressure 74 mm[Hg] [facility] 08-25-2024 09:56-0400 Heart rate 64 /min [facility] 08-25-2024 09:56-0400 Respiratory rate 12 /min [facility] 08-25-2024 09:56-0400 SaO2% (BldA) [Mass fraction] 97 % [facility] 08-25-2024 09:56-0400 Systolic blood pressure 124 mm[Hg] [facility] 04-14-2024 14:22-0500 Body height 149.9 cm Brigitte Martinezr [employer] Work Phone: [facility] 04-14-2024 14:22-0500 Body mass index (BMI) [Ratio] 31.71 kg/m2 Brigitte Brarmor [employer] Work Phone: [facility] 04-14-2024 14:22-0500 Body weight 71.22 kg Brigitte Brarmor [employer] Work Phone: [facility] 04-14-2024 14:22-0500 Diastolic blood pressure 52 mm[Hg] Brigitte Brarmor [employer] Work Phone: [facility] 04-14-2024 14:22-0500 Heart rate 61 /min Brigitte Brarmor [employer] Work Phone: [facility] 04-14-2024 14:22-0500 SaO2% (BldA) [Mass fraction] 97 % Brigitte Brarmor [employer] Work Phone: [facility] 04-14-2024 14:22-0500 Systolic blood pressure 93 mm[Hg] Brigitte Martinezr [employer] Work Phone: [facility] 03-17-2024 10:07-0500 Body height 151.13 cm [facility] 03-17-2024 10:07-0500 Body mass index (BMI) [Ratio] 30.5 kg/m2 [facility] 03-17-2024 10:07-0500 Body weight 69.85 kg [facility] 03-17-2024 10:07-0500 Diastolic blood pressure 72 mm[Hg] [facility] 03-17-2024 10:07-0500 Heart rate 61 /min [facility] 03-17-2024 10:07-0500 SaO2% (BldA) [Mass fraction] 97 % [facility] 03-17-2024 10:07-0500 Systolic blood pressure 120 mm[Hg] [facility] 02-25-2024 10:08-0400 Body height 151.13 cm [facility] 02-25-2024 10:08-0400 Body mass index (BMI) [Ratio] 30.4 kg/m2 [facility] 02-25-2024 10:08-0400 Body weight 69.39 kg [facility] 02-25-2024 10:08-0400 Diastolic blood pressure 70 mm[Hg] [facility] 02-25-2024 10:08-0400 Heart rate 61 /min [facility] 02-25-2024 10:08-0400 Respiratory rate 12 /min [facility] 02-25-2024 10:08-0400 Systolic blood pressure 126 mm[Hg] [facility] 07-20-2023 09:05-0400 Body height 151.13 cm [facility] 07-20-2023 09:05-0400 Body mass index (BMI) [Ratio] 29.8 kg/m2 [facility] 07-20-2023 09:05-0400 Body weight 68.2 kg [facility] 07-20-2023 09:05-0400 Diastolic blood pressure 71 mm[Hg] [facility] 07-20-2023 09:05-0400 Heart rate 62 /min [facility] 07-20-2023 09:05-0400 Respiratory rate 12 /min [facility] 07-20-2023 09:05-0400 Systolic blood pressure 112 mm[Hg] [facility] 02-20-2023 16:00-0400 Body height Ovi Ball Other [employer] [facility] [employer] Other 02-20-2023 16:00-0400 Body mass index (BMI) [Ratio] 30.44 kg/m2 Ovi Ball Other [facility] Other 02-20-2023 16:00-0400 Body weight 69.54 kg Ovi Ball Other [employer] Other 02-20-2023 16:00-0400 Diastolic blood pressure 78 mm[Hg] Ovi Ball Other [employer] Other 02-20-2023 16:00-0400 Respiratory rate 12 /min Ovi Ball Other [employer] Other 02-20-2023 16:00-0400 Systolic blood pressure 144 mm[Hg] Ovi Ball Other [employer] Other 07-17-2022 16:30-0400 Body height Ovi Ball Other [employer] Other 07-17-2022 16:30-0400 Body mass index (BMI) [Ratio] 31.33 kg/m2 Ovi Ball Other [employer] Other 07-17-2022 16:30-0400 Body weight 71.58 kg Ovi Ball Other [employer] Other 07-17-2022 16:30-0400 Diastolic blood pressure 75 mm[Hg] Ovi Ball Other [employer] Other 07-17-2022 16:30-0400 Respiratory rate 12 /min Ovi Ball Other [employer] Other 07-17-2022 16:30-0400 Systolic blood pressure 122 mm[Hg] Ovi Ball Other [employer] Other 12-21-2021 11:00-0400 Body height Brina Morrissey Other [employer] Other Encounters Encounter Date Encounter Type Care Provider Facility Start: 09-02-2024 End: 09-02-2024 ambulatory [facility] Work Phone: Start: 09-02-2024 End: 09-02-2024 Patient encounter procedure [facility] Physician [facility] Work Phone: Start: 08-25-2024 End: 08-25-2024 ambulatory [facility] Work Phone: Start: 08-25-2024 End: 08-25-2024 Patient encounter procedure [facility] Physician [facility] Work Phone: Start: 05-06-2024 End: 05-06-2024 ambulatory [facility] Work Phone: Start: 05-06-2024 End: 05-06-2024 Patient encounter procedure [facility] Work Phone: Start: 04-14-2024 End: 04-14-2024 Office outpatient visit 25 minutes Brigitte Yang [employer] [facility] Comment on above: Obstructive sleep ap ravi syndrome (Primary Dx); Cerebral infarction, left hemisphere (CMS/HCC); Hypoxia; Sleep deprivation Start: 04-14-2024 End: 04-14-2024 ambulatory BRIGITTE YANG Not Available Start: 04-14-2024 End: 04-14-2024 Bamboo flowsheet Brigitte Yang [employer] Work Phone: [facility] [facility] Start: 04-14-2024 End: 04-14-2024 Bamboo flowsheet Brigitte Yang [employer] Work Phone: [facility] Start: 03-17-2024 End: 03-17-2024 ambulatory [facility] Work Phone: Start: 03-17-2024 End: 03-17-2024 Patient encounter procedure [facility] Physician [facility] Work Phone: Start: 03-10-2024 Non-patient / Non-visit [facility] Physician [facility] Work Phone: Start: 03-09-2024 Non-patient / Non-visit [facility] Physician [facility] Work Phone: Start: 03-08-2024 Non-patient / Non-visit [facility] Work Phone: Start: 02-27-2024 Non-patient / Non-visit [facility] Physician [facility] Work Phone: Start: 02-25-2024 End: 02-25-2024 ambulatory [facility] Work Phone: Start: 02-25-2024 End: 02-25-2024 Patient encounter procedure [facility] Work Phone: Start: 02-15-2024 End: 02-15-2024 Refill Torres Rosa MD Work Phone: [facility] Comment on above: LPRD (laryngopharyng eal reflux disease) Start: 01-17-2024 End: 01-17-2024 Refill Alejandro Monteiro MA [facility] [address] Comment on above: Cerebral infarction, left hemisphere (CMS/HCC) (Primary Dx) Start: 01-01-2024 End: 01-01-2024 ambulatory [facility] Work Phone: Start: 01-01-2024 End: 01-01-2024 Patient encounter procedure [facility] Work Phone: Start: 11-07-2023 Non-patient / Non-visit [facility] Work Phone: Start: 10-08-2023 End: 10-08-2023 ambulatory BRIGITTE BRARSONG Not Available Start: 09-26-2023 End: 09-26-2023 ambulatory TORRES H TIMMIS Not Available Start: 08-15-2023 End: 08-15-2023 ambulatory TORRES H TIMMIS Not Available Start: 07-20-2023 End: 07-20-2023 ambulatory [facility] Work Phone: Start: 07-20-2023 End: 07-20-2023 Patient encounter procedure [facility] Work Phone: Start: 07-04-2023 End: 07-04-2023 Patient encounter procedure [facility] Work Phone: Start: 04-17-2023 End: 04-17-2023 ambulatory Ovi Ball Other [employer] Other Start: 04-17-2023 Telephone encounter Ovi Ball [facility] Start: 03-13-2023 End: 03-13-2023 ambulatory Ovi Ball Other [employer] Other Start: 03-13-2023 Telephone encounter Ovi Ball [facility] Start: 03-07-2023 End: 03-07-2023 ambulatory Ovi Ball Other [employer] Other Start: 03-07-2023 Telephone encounter Ovi Ball [facility] Start: 03-01-2023 End: 03-01-2023 ambulatory Ovi Ball Other [employer] Other Start: 03-01-2023 Telephone encounter Ovi Ball [facility] Start: 02-28-2023 End: 02-28-2023 ambulatory Ovi Ball Other [employer] Other Start: 02-28-2023 Telephone encounter Ovi Ball [facility] Start: 02-22-2023 End: 02-22-2023 ambulatory Ovi Ball Other [employer] Other Start: 02-22-2023 Telephone encounter Ovi Ball [facility] Start: 02-21-2023 End: 02-21-2023 ambulatory Ovi Ball Other [employer] Other Start: 02-21-2023 Telephone encounter Ovi Ball [facility] Start: 02-20-2023 End: 02-20-2023 ambulatory Ovi Ball Other [employer] Other Start: 02-20-2023 Office outpatient vi sit 25 minutes Ovi Crooks [facility] Start: 01-23-2023 End: 01-23-2023 ambulatory Ovi Crooks Other [employer] Other Start: 01-23-2023 Telephone encounter Ovi IBARRA G [facility] Start: 01-16-2023 End: 01-16-2023 ambulatory Brina Morrissey Other [employer] Other Start: 01-16-2023 Office outpatient vi sit 15 minutes Brina Morrissey [facility] Start: 01-05-2023 End: 01-05-2023 ambulatory [facility] Start: 11-23-2022 ambulatory DAVDI KAPOOR . Facili ty:H1 Start: 09-01-2022 End: 09-02-2022 ambulatory DAVID KAPOOR . Facility:[facility]1 Start: 07-31-2022 End: 07-31-2022 ambulatory Brina Morrissey Other [facility] Other Start: 07-31-2022 Telephone encounter Brina Wright [facility] Start: 07-26-2022 End: 07-27-[address] OVI CROOKS Facility:[facility]1 Start: 07-26-2022 End: 07-26-2022 ambulatory [facility] Start: 07-25-2022 End: 07-25-2022 ambulatory NARENDRANATH LAKSHMIPATHY . Facility:H1 Start: 07-20-2022 End: 07-21-2022 ambulatory NARENDRANATH LAKSHMIPATHY . Facility:[facility]1 Start: 07-19-2022 End: 07-20-[address] OVI CROOKS [facility] Other Start: 07-19-2022 Telephone encounter Ovi IBARRA G [facility] Start: 07-17-2022 End: 07-17-2022 ambulatory Ovi Crooks Other [employer] Other Start: 07-17-2022 Patient encounter procedure Ovi Crooks [facility] Start: 06-20-2022 End: 06-20-[address] ELIZABETH JESSICA . Facility:[facility]1 Start: 06-07-2022 Telephone encounter Brina Crooks [facility] Start: 06-07-2022 End: 06-07-2022 ambulatory [facility] [employer] [facility] Other Start: 05-20-2022 Encounter for preprocedural laboratory examination [facility] Start: 05-15-2022 End: 05-16-2022 ambulatory [facility] Facility:H1 Start: 05-15-2022 End: 05-16-2022 Encounter for preprocedural laboratory examination [facility] Facility:[facility]1 Start: 05-09-[address] [...] 01-18-2022 End: 01-18-2022 ambulatory Brina Morrissey Other [employer] Other Start: 01-18-2022 Office outpatient vi sit 15 minutes Brina GUERRERO [facility] Start: 01-09-2022 End: 01-10-2022 ambulatory MARY CRISTOBAL . Facility:H1 Start: 12-29-2021 End: 12-30-2021 ambulatory MARY CRISTOBAL . Facility:H1 Start: 12-21-2021 End: 12-21-2021 ambulatory Brina Morrissey Other [facility] Other Start: 12-21-2021 Office outpatient ne w 30 minutes [facility] Start: 12-21-2021 End: 12-21-2021 Patient encounter procedure MD Brina Morrissey Work Phone: [facility] Start: 12-13-2021 End: 12-13-[address] ELIZABETH JESSICA . Facility: Start: 12-01-2021 End: 12-02-2021 ambulatory MARY CRISTOBAL . Facility: Start: 09-14-2021 End: 09-15-[address] OVI CROOKS Facility: Start: 08-17-2021 Adult health examination Brina Morrissey Other [employer] Other Start: 12-25-2017 End: 12-25-2017 Patient encounter Quinn Armendariz Facility:[facility] Start: 12-18-2017 End: 12-18-2017 Patient encounter Quinn Armendariz Facility:[facility] Procedures Date Procedure Procedure [...] 09/08/2024 11:00 AM EDT [facility] [address] [place] [address] Brigitte Yang, JAVON [address] [place], [place] [facility] [address] Start: 04-14-2024 End: 04-14-2024 [facility] Comment on above: Arrived Start: 12-30-2023 Influenza vaccination Influenz a Vaccine (#1) [facility] Comprehensive metabo lic 1999 panel - Serum or Plasma [facility] Comprehensive metabo lic 1999 panel - Serum or Plasma [facility] Comprehensive metabo lic 1999 panel - Serum or Plasma [facility] MG Breast - bilatera l Screening [facility] Immunizations Immunization Date Immunization Notes Care Provider Fa cility 02-25-2024 influenza, high dose seasonal, preservative-free [facility] 02-17-2022 influenza, high dose seasonal, preservative-free Ovi Crooks Other [facility] [employer] Other 02-17-2022 influenza virus vaccine, split virus (incl. purified surface antigen) Brina Morrissey Other [facility] [employer] Other 02-17-2022 influenza virus vaccine, unspecified formulation [facility] 04-04-2021 COVID-19 Vaccine Pfi zer - Documentation Purposes Only Ovi Crooks Other [facility] 01-17-2021 influenza virus vaccine, split virus (incl. purified surface antigen) Brina Carinehernan Other [facility] [employer] Other 01-17-2021 influenza virus vaccine, unspecified formulation [facility] 06-17-2020 COVID-19 Vaccine Pfi zer - Documentation Purposes Only Ovi Crooks Other [facility] 05-27-2020 COVID-19 Vaccine Moderna - Documentation Purposes Only Brina Morrissey Other [facility] 05-27-2020 COVID-19 Vaccine Pfi zer - Documentation Purposes Only Ovi Crooks Other [facility] 03-10-2020 influenza virus vaccine, split virus (incl. purified surface antigen) Brina Morrissey Other [facility] [employer] Other 03-10-2020 influenza virus vaccine, unspecified formulation [facility] 03-07-2019 influenza virus vaccine, split virus (incl. purified surface antigen) Brina Morrissey Other [facility] [employer] Other 03-07-2019 influenza virus vaccine, unspecified formulation [facility] 03-27-2018 influenza virus vaccine, split virus (incl. purified surface antigen) Brina Morrissey Other [facility] [employer] Other 03-27-2018 influenza virus vaccine, unspecified formulation [facility] 03-16-2017 pneumococcal Conjuga te, unspecified formulation; Translations: [Need for prophylactic vaccination against Streptococcus pneumoniae (pneumococcus)] Brina Morrissey Other [employer] [facility] Other 03-16-2017 pneumococcal polysaccharide vaccine, 23 valent Ovi Crooks Other [facility] 11-17-2016 pneumococcal conjuga te vaccine, 13 valent Ovi Crooks Other [facility] 02-09-2016 influenza virus vaccine, split virus (incl. purified surface antigen) Brina Morrissey Other [facility] [employer] Other 02-09-2016 influenza virus vaccine, unspecified formulation [facility] Payers Date Payer Category Payer Medicare [id number] 2016 Blue [facility] BCBS [id number] 2016 Unknown BCBS BCBS [id number] 2016-Present [phone] [id number] [place], [place] [address] [id number] [id number] 2007 Medicare [id number] 1959 Medicare [id number] 1959 Unknown [id number] 1942 Unknown [id number] 2.16.840.1.432005.3.579. 2.593 1942 Unknown [id number] 2.16.840.1.836289.3.579. 2.593 1942 Unknown [id number] 2.16.840.1.389393.3.579. 2.593 1942 Unknown [id number] 2.16.840.1.175696.3.579. 2.593 1942 Unknown [id number] 2.16.840.1.425315.3.579. 2.593 1942 Unknown [id number] 2.16.840.1.519808.3.579. 2.593 1942 Unknown [id number] 2.16.840.1.819954.3.579. 2.593 1942 Unknown [id number] 2.16.840.1.396797.3.579. 2.593 1942 Unknown [id number] 2.16.840.1.375367.3.579. 2.593 1942 Unknown [id number] 2.16.840.1.520542.3.579. 2.593 1942 Unknown [id number] 2.16.840.1.515755.3.579. 2.593 1942 Unknown [id number] 2.16.840.1.140250.3.579. 2.593 1942 Unknown [id number] 2.16.840.1.681110.3.579. 2.593 1942 Unknown [id number] 2.16.840.1.420379.3.579. 2.593 1942 Unknown [id number] 2.16.840.1.821539.3.579. 2.593 1942 Unknown [id number] 2.16.840.1.926843.3.579. 2.593 1942 Unknown [id number] 2.16.840.1.576998.3.579. 2.593 1942 Unknown [id number] 2.16.840.1.410284.3.579. 2.593 1942 Unknown [id number] 2.16.840.1.550248.3.579. 2.593 1942 Unknown [id number] 2.16.840.1.248704.3.579. 2.593 1942 Unknown [id number] 2.16.840.1.671476.3.579. 2.593 1942 Unknown [id number] 2.16.840.1.031264.3.579. 2.593 1942 Unknown [id number] 2.16.840.1.231679.3.579. 2.593 1942 Unknown [id number] 2.16.840.1.733090.3.579. 2.593 1942 Unknown [id number] 2.16.840.1.858441.3.579. 2.1259 1942 Unknown [id number] 2.16.840.1.430823.3.579. 2.1259 1942 Unknown [id number] 2.16.840.1.480854.3.579. 2.1259 1942 Unknown [id number] 2.16.840.1.716111.3.579. 2.1259 Social History Date Type Detail Facility Tobacco smoking stat us [facility] Unknown if ever smoked [facility] Work Phone: Start: 1940 Sex Assigned At Female F [facility] Start: 10-08-2023 End: 04-14-[address] [facility] [employer] Other Start: 06-28-2023 End: 06-28-2023 Tobacco smoking status AZIS Never smoked tobacco (finding) [facility] Start: 08-09-2023 Tobacco use and exposure [...] Alcohol Comment caffeine: 1-2 cups per day [facility] Start: 1940 Sex assigned at Not on file [facility] Start: 03-17-2024 End: 09-02-2024 Sex Female (finding) [facility] Clinical Notes 12-01-2021 to 08-25-2024 Note [...] right acute September 02, 2024 10:11am [facility] Work Phone: 1(504) 324-916610-28-2024 Evaluation note* Diagnosis Onset Date Resolution Status [...] right acute May 06, 2024 8:46am [facility] Work Phone: 1(372) 951-297909-03-2024 Evaluation note* Diagnosis Onset Date Resolution Status [...] 10:03am Primary hypertension acute 2023 10:03am [facility] Work Phone: 1(584) 558-651001-19-2024 Quane received fax from [facility] Pain Mgmt requesting patient hold her [...] asked them to contact Dr. Arriola for clearance.[facility]12-19-2023 Evaluation note* Encounter Date Diagnosis Assessment Notes Treatment Notes Treatment Clinical Notes Mar, Acute cerebral infarction (ICD-10 - I63.9) Mar, Cerebral atherosclerosis (ICD-10 - I67.2) [facility] Other 11-01-2023 Evaluation note* Encounter Date Diagnosis Assessment Notes Treatment Notes Treatment Clinical Notes Feb, Acute cerebral infarction (ICD-10 - I63.9) [facility] Other 11-01-2023 Evaluation note* Encounter Date Diagnosis Assessment Notes Treatment Notes Treatment Clinical Notes Feb, Bruit (ICD-10 - R09.89) [facility] Other 10-25-2023 Evaluation note* Encounter Date Diagnosis Assessment Notes Treatment Notes Treatment Clinical Notes Jan, Transient left leg weakness (ICD-10 - R29.898) Jan, Jerking movements of extremities (ICD-10 - R25.2) [facility] Other 10-24-2023 Evaluation note* Encounter Date Diagnosis [...] the risk for cerebrovascular and cardiovascular disease. [facility] Other 09-19-2023 Evaluation note* Encounter Date Diagnosis [...] Pain in left hand (ICD-10 - M79.642) [facility] Other 09-08-2023 NoteCardiology Clinic Note Chief Complaint: [...] in all muscle groups, (more content not included)...[facility]09-08-2023 NotePatient here for 6 mo follow up CAD, hypertension, and hyperlipidemia. Has not been taking aspirin because she doesn't like taking a lot of pills. Says she's only had chest pain once recently. Sees Dr. Smith and had CT chest in September. [facility]04-03-2023 Evaluation note* Encounter Date Diagnosis Assessment Notes Treatment Notes Treatment Clinical Notes Jul, Pulmonary nodule (ICD-10 - R91.1) RUL 10mm nodule - 06/3022Jul, Cough (ICD9-CM - 786.2) Jul, Mild persistent asthma without complication (ICD-10 - J45.30) [facility] Other 03-29-2023 NoteCardiology Clinic Note Chief Complaint: [...] motor function in all (more content not included)...[facility]03-23-2023 NoteCONSULTATION CONSULTATION DATE: 07/20/2022 TO: Dr. [...] be helping some of her pain symptoms.[id number]* Encounter Date Diagnosis Assessment Notes Treatment Notes Treatment Clinical Notes Jun, Pulmonary nodule (ICD-10 - R91.1) RUL 10mm nodule - 06/3022 [facility] Other 03-20-2023 Evaluation note* Encounter Date Diagnosis [...] use, the patient reduces the risk for NC, CVA, HTN, cardiac dysrhythmias and sudden cardiac [...] mammogram for breast cancer (ICD-10 - Z12.31) [facility] Other 02-08-2023 Evaluation note* Encounter Date Diagnosis Assessment Notes Treatment Notes Treatment Clinical Notes May, ASHD (arterioscleroti c heart disease) (ICD-10 - I25.10) LHC: moderate, nonobstructive coronary disease - 05/2022 card[employer] Other 02-08-2023 NotePatient here for follow up [...] light-headedness. All other systems reviewed and are negative.[facility] 06-07-2022 NoteCardiology Clinic Note Chief Complaint: [...] Value Ventricular Rate 53 Atrial Rate 53 UT Interval 186 QRS DURATION 142 QT Interval 472 QTC CALCULATION(BAZETT) 442 P [place] 29 R-[place] -35 T Wave [place] 59 Impression Sinus bradycardia Left axis deviation Left bundle branch block Abnormal ECG When compared with ECG of 30-NOV-2008 12:01, Premature atrial comple (more content not included)...[facility]10-27-2022 NoteCONSULTATION CONSULTATION DATE: 02/23/2022 This is [...] will be followed in the clinic thereafter.[id number] Evaluation note* Encounter Date Diagnosis Assessment Notes [...] in both duran ds (ICD-10 - R20.0) [facility] Other 09-01-2022 NoteCONSULTATION CONSULTATION DATE: 12/29/2021 HISTORY [...] patient is in agreement to move forward.[facility] [id number] Evaluation note* Encounter Date Diagnosis Assessment Notes [...] in both duran ds (ICD-10 - R20.0) [facility] Other 08-04-2022 NoteCONSULTATION CONSULTATION DATE: 12/01/2021 HISTORY [...] followed up in the office post procedure.[facility]Evaluation noteNo assessment information availableEast [facility] Work Phone: Evaluation noteNo InformationNort Aria [employer] Other Evaluation note* Diagnosis Onset Date Resolution [...] Screening mammogram for breast cancer noneactive [facility] Work Phone: Evaluation note* Diagnosis Onset Date Resolution Status Arthritis of carpometacarpal (CMC) joint of left thumb acute Arthritis of carpometacarpal (CMC) joint of right thum b acute Carpal tunnel syndrome, left acute Carpal tunnel syndrome, right acute [facility] Work Phone: Evaluation note* Diagnosis LPRD (laryngopharyngeal reflux disease) Acute laryngitis, without mention of obstruction documented in this encounter [facility] HealthcareEvaluation note* Diagnosis Onset Date Resolution [...] apnea acut e Primary hypertension acute [facility] Work Phone: Evaluation note* Diagnosis Obstructive sleep apnea syndrome- Primary Obstructive sleep apnea (adult) (pediatric) Cerebral infarction, left hemisphere (CMS/HCC) Unspecified cerebral artery occlusion with cerebral infarction Hypoxia Hypoxemia Sleep deprivation Problems related to lack of adequate sleep documented in this encounter [facility] HealthcareEvaluation note* Diagnosis Cerebral infarction, left hemisphere (CMS/HCC)- Primary Unspecified cerebral artery occlusion with cerebral infarction documented in this encounter [facility] HealthcareEvaluation note* Diagnosis Onset Date Resolution [...] cancer noneactive August 25, 2024 9:55am [facility] Work Phone: Hisirdc general Narrative - Reported* Type Description Date Medical History Esophageal reflux Medical History seasonal allergies Medical History DIVINA Medical History Hypertension Surgical History APPENEDECTOMY Surgical History HYSTERECTOMY Surgical History SINUS Surgical History LEFT HAND Surgical History HEART CATH Surgical History CHOLECYSTECTOMY [facility] Other Hisivke general Narrative - Reported* Type Description Date Medical History Esophageal reflux Medical History seasonal allergies Medical History DIVINA Medical History Hypertension Medical History ASHD (arteriosclerotic heart dis ease) Surgical History APPENEDECTOMY Surgical History HYSTERECTOMY Surgical History SINUS Surgical History LEFT HAND Surgical History HEART CATH Surgical History CHOLECYSTECTOMY Surgical History cardiac catheterization 06/07/22 card[facility] Other Hisuhkm general Narrative - Reported* Type Description Date [...] catheterization 06/07/22 Hospitalization History SEE SURGICAL HX [facility] Other Summary Purpose Family History Relationship Condition [...] Admit Date ASHD (arteriosclerotic heart disease) Ap [facility] 2024 9:55am Cerebral atherosclerosis August 25 9:55am [...] Screening mammogram for breast cancer [facility] 2024 9:55am Chief Complaint Admit Date 6 month f/u-HIGH RISK August 25, 2024 9 :55am 3 MONTHS September 02, 2024 10:11a m Reason for Visit Admit Date ASHD (arteriosclerotic heart disease) Ap [facility] 2024 9:55am Cerebral atherosclerosis August 25 9:55am [...] section and content) DATE CREATED AUTHOR 12/29/2017 [facility] DATE CREATED AUTHOR AUTHOR'S ORGANIZ ATION 12/25/2021 [facility] DATE CREATED AUTHOR AUTHOR'S ORGANIZ ATION 09/08/2022 [facility] DATE CREATED AUTHOR AUTHOR'S ORGANIZ ATION 05/19/2023 [facility] DATE CREATED AUTHOR AUTHOR'S ORGANIZ ATION 04/16/2024 [facility] dical Specialists EPIC Care Teams (unrecognized [...] July 20, 2023 End: July 20, 2023 Detailer Furniture Relationship Specialty Start Date End Date Ovi Crooks MD [address] [place] [address] PCP - General Internal Medicine 07/10/23 Team [...] March 17, 2024 End: March 17, 2024 Detailer Furniture Relationship Specialty Start Date End Date Ovi Crooks MD [address] [place] [address] PCP - General Internal Medicine 07/10/23 Madhavi Arriola DO [address] [place] [address] Referring Physician Neurology 04/14/24 Detailer Furniture Relationship Specialty Start Date End Date Ovi Crooks MD [address] [place] [address] PCP - General Internal Medicine 07/10/23 Madhavi Arriola DO [address] [place] [address] Referring Physician Neurology 04/14/24 Detailer Furniture Relationship Specialty Start Date End Date Ovi Crooks MD [address] [place] [address] PCP - General Internal Medicine 07/10/23 Team [...] BE BASED ON THE PRIMARY CLINICAL RECORDS. [employer] provides no warranty or guarantee of the accuracy or completeness of information in this document.
--- NOTE | 2024-09-24 07:32 | XR_ITS ---
The [place] [address] Patient Name: GIOVANNA BAUM MRN: [id number] date: 1940 Sex: F Assigned Patient Location: MRI Current Patient Location: MRI Accession/Order Number: [id number] Exam Date: 09/24/2024 08:57 Report Date: 09/24/2024 08:59 At the request of: SERGIO NUÑEZ NP Procedure: XR lumbar spine 6V w bending XR lumbar spine 6V w bending 09/24/2024 7:55 AM SIGNS AND SYMPTOMS: ^note modic changes ^sacroiliitis, not elsewhere classified,Spinal stenosis, low back pain with radiculopathy bilaterally PROTOCOLS: Frontal, lateral, and oblique radiographs of the lumbar spine COMPARISON: None FINDINGS: Their is 5 mm of retrolisthesis of L2 upon L3. There is preservation of vertebral body. There is severe disc height loss at L2-L3 with moderate disc height loss at L3-L4 and L5-S1. There is moderate disc height loss at L1-L2 with mild disc height loss at L4-5. The sacrum and sacroiliac joints are normal. Mild degenerative changes are noted in the bilateral hips. Surgical clips are present in the right upper quadrant consistent with prior cholecystectomy. XR/XR lumbar spine 6V w bending IMPRESSION: No fracture. There is 5 mm of retrolisthesis of L2 on L3 secondary to facet hypertrophy. Multilevel degenerative changes noted as above. Impression dictated by: Zion Garcia M.D. 09/24/2024 8:59 AM Dictation Location: [facility]Yeahka Electronically authenticated by: [id number] Y Date: 09/24/2024 08:59
== END 2024-09-24 06:49 | disposition home or self-care (01) ==
LOC: MRI 06:48
PROVIDERS: PCP Internal Medicine; Visit Provider Nurse Practitioner
DX: M48.062 Spinal stenosis, lumbar region with neurogenic claudication (principal); M46.1 Sacroiliitis, not elsewhere classified; M47.816 Spondylosis without myelopathy or radiculopathy, lumbar region; N28.89 Other specified disorders of kidney and ureter
CPT/HCPCS: 72114; 72148

== ENCOUNTER 2024-09-26 08:27 | Outpatient (OUT) | payer MEDICARE, BC, SELFPAY ==
--- OUTSIDE RECORDS SUMMARY | 2023-10-29 06:00 | XMS_ITS ---
Author Organization [facility] [place] Address [address] [place] [address] Care Team Providers Care Forestry Contractor Name Role Phone Ovi Crooks DO Primary Care Provider Rogelio Pearl Unavailable [phone] REASON FOR VISIT F/U -1 YEAR ASTHMA Encounters Encounter Location Date Provider Diagnosis Pulmonary Medicine [place] [address] [place] [address] 10/29/2023 Rogelio Smith Plan Of Treatment Next Appt Details Provider Name:Rogelio Smith, 11/25/2024 10:00:00 AM, [address] [place], [address], Progress Notes * Rupali RICHARDSON LDOB:[birth year] (83 yo F)Acc No.[id number]:10/29/2023 UNLOCKED PROGRESS NOTE Follow Up Patient: Afsaneh ARANGOashley Gordon Provider: Harish Smith DO :1940 A ge:82 Y S ex:Female Date:10/29/2023 Address:[address] [place] [address], [id number] Pcp:Ovi Crooks DO Subjective: * Chief Complaints: * 1 . F/U -1 YEAR ASTHMA. * Medical History: Objective: * Vitals: Assessment: Plan: * Treatment: * * Electronic signature of Key Smith DO on 09/26/2024 at 08:29 AM EDT Sign off status: Pending Visit Status: R /S (Rescheduled) * Provider: Harish Smith DO Date: 0 10/29/2023 Generated for Roseline foster/Erin/Lorin on: 0 09/26/2024 08:29 AM EDT
--- OUTSIDE RECORDS SUMMARY | 2023-10-31 09:00 | XMS_ITS ---
Author Organization The [facility] in [place] Address [address] [place] [address] Care Team Providers Care Radarman Name Role Phone Ovi Crooks DO Primary Care Provider Rogelio Pearl Unavailable [phone] REASON FOR VISIT F/U -1 YEAR ASTHMA Encounters Encounter Location Date Provider Diagnosis Pulmonary Medicine [place] [address] [place] [address] 10/31/2023 Rogelio Smith Plan Of Treatment Next Appt Details Provider Name:Rogelio Smith, 11/25/2024 10:00:00 AM, [address] [place], [address], Progress Notes * Rupali RICH[place]ON LDOB:[birth year] (83 yo F)Acc No.[id number]:10/31/2023 UNLOCKED PROGRESS NOTE Follow Up Patient: Rupali ARANGO Evan Provider: Harish Smith DO :1940 A ge:82 Y S ex:Female Date:10/31/2023 Address:[address] [place] [address], [id number] Pcp:Ovi Crooks DO Subjective: * Chief Complaints: * 1 . F/U -1 YEAR ASTHMA. * Medical History: Objective: * Vitals: Assessment: Plan: * Treatment: * * Electronic signature of Key Smith DO on 09/26/2024 at 08:29 AM EDT Sign off status: Pending Visit Status: R /S (Rescheduled) * Provider: Harish Smith DO Date: 0 10/31/2023 Generated for Roseline foster/Erin/Lorin on: 0 09/26/2024 08:29 AM EDT
--- OUTSIDE RECORDS SUMMARY | 2023-11-20 06:00 | XMS_ITS ---
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 Weight loss indicated: Decrease calories, increase activity. Next Appt Details Follow Up: 1 Year, Reason: A sta Provider Name:Rogelio Smith, 11/25/2024 10:00:00 AM, [address] [place], [address], Procedure Notes * Category Sub-Category Detail Notes PFT Data: PFT 09/15/2014:-F EV1/FVC: 78% -FEV1: 98%-FVC: 94%-Bronchodilator response: None-RV: 72%-T%-DLCO: 111%-Flow-volume loop: NormalPFT 03/05/2013:-FEV1/FVC: 76% -FEV1: 92%-FVC: 91%-Bronchodilator response: None-RV: 103%-T%-DLCO: 98%-Flow-volume loop: Normal Progress Notes * Rupali RICHARDSON LDOB:[birth year] (83 yo F)Acc No.[id number]:11/20/2023 Follow Up Patient: Rupali ARANGO Provider: Harish Smith, :1940 A ge:83 Y S ex:Female Date:11/20/2023 Address:[address] [place] [address]. [address], [facility] Pcp:Ovi Crooks, DO Check In:09:55 AM ESTCheck [...] smoker. Patient is under the care of [facility] Cardiology. * ROS: G eneral/Constitutional: Fever or [...] History of COVID-19 Modified On:07/26/2022U Status:confirmed Z79.51 senior care (current) use of 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 Modified On:11/01/2022U [...] of Medical Reason: N ot indicated B PA ACTION PLAN Above Normal BMI Follow-up D ietary management education, guidance, and counseling * Follow Up: 1 Year (Reason: Asthma) * * Sign off status: Completed Visit Status: C HK (Check Out) true * Provider: Harish Smith DO Date: 11/20/2023 Generated for Roseline foster/Erin/Marianitting on: 09/26/2024 08:29 AM EDT History and Physical Notes * HPI (History of Present Illness) Category Sub-Category Detail Notes Category Not es General Paient presents for a follow up for Asthma. Patient denies any complaints or concerns with her breathing today. Patient is currently using Symbicort daily with benefit. Patient is a non smoker. Patient is under the care of [facility] Cardiology. Examination Category Sub-Category Detail Notes Category Not es Exam GENERAL APPEARANCE: Appears stated age Skin Normal Mouth [place] and moist , no candidiasis Trachea Midline Chest Normal Respiratory Breath sounds are cl ear to auscultation Gastrointestinal Normal Vascular No edema Musculoskeletal Normal posture Neurological Focal, intact Psychiatric Alert and oriented x 3 Mentation/Cognition Normal Oropharynx/Tongue Mallampati Class III
--- OUTSIDE RECORDS SUMMARY | 2024-09-26 08:29 | XMS_ITS | Encounter Summary ---
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 Name Role Phone Ovi Crooks DO Primary Care Provider Madhavi Arriola DO Unavailable [phone] Reason for Visit * Reason Comments Med Refill Encounter Details Date Type Department Care Team (Late st Contact Info) Description 05/18/2024 Refill [facility] [address] [facility] [address] [place] [id number] Celeste Steinberg MD 112 [facility] [address] [place], [place] [address] LPRD (laryngopharyngeal reflux disease) Social History Tobacco [...] as of this encounter Plan of Treatment Not on file documented as of this encounter Visit Diagnoses Diagnosis LPRD (laryngopharyngeal reflux disease) Acute laryngitis, without mention of obstruction documented in this encounter Care Teams Municipal Firefighter Relationship Specialty Start Date End Date Ovi Crooks DO PCP - General Internal Medicine 07/10/23 Madhavi Arriola DO [address] [place] [address] Referring Physician Neurology 04/14/24 documented as of this encounter
--- OUTSIDE RECORDS SUMMARY | 2024-09-26 08:29 | XMS_ITS | Patient Health Record ---
Author Organization [facility] in [employer] Address [address] [place] [address] Care Team Providers Care Senior Underwriting Assistant Name Role Phone Ovi Crooks DO Primary Care Provider Rogelio Pearl Unavailable [phone] Allergies Allergen (clinical drug ingredient) Drug/Non Drug Allergy documented on EMR Reaction Allergy Type Onset Date Status Versed (uncoded) nausea and vomiting Allergy Active Results Component Value Reference Range Notes SARS-CoV-2 Ag* Reviewed date:03/08/2024 03:33:10 PM Interpretation: Performing Lab: Notes/Report: [facility] , SARS-CoV-2 Ag NEGATIVE NEGATIVE complexity testing. This test has been authorized only for authorized for the duration of the declaration that and/or diagnosis of Covid-19 under section 564(b)(1) of the circumstances exist justifying the authorization of (EUA) for use by authorized laboratories certified under terminated or authorization is revoked sooner. authorized by the FDA under an Emergency Use Authorization emergency use of in vitro diagnostic tests for detection viruses or pathogens. The emergency use of this test is Act, 21 U.S.C. 360bbb-3(b)(1), unless the declaration is This test has not been FDA cleared or approved, but has been the detection of proteins from SARS-CoV-2, not for any other CLIA that meet the requirements to perform moderate or high Performing Lab: see note ML - [facility] LB INFLUENZA A AND B AG Reviewed date:03/08/2024 03:33:10 PM Interpretation: Performing Lab: Notes/Report: [facility] , Influenza Virus A Antigen Negative Negative for Flu A protein antigen. Infection due to Flu A below the detection limit of the test. cannot be ruled out. Flu A antigen in the sample may be Influenza Virus B Antigen Negative Negative for Flu B protein antigen. Infection due to Flu B cannot be ruled out. Flu B antigen in the sample may be below the detection limit of the test. Performing Lab: see note ML - [facility] Troponin I High Sensitivity Reviewed date:03/08/2024 03:33:10 PM Interpretation: Performing Lab: Notes/Report: [facility] , Troponin I High Sensitivity 9.3 4.0-51.3 pg/m L 99TH PERCENTILE = 51.4 PG/ML DIAGNOSIS. UNIVERSAL DEFINITION OF MYOCARDIAL INFARCTION. THE UPPER REFERENCE LIMIT (URL) OF TROPONIN, DEFINED THE 99TH WITH OTHER DIAGNOSTIC AND CLINICAL INFORMATION. CUT-OFF POINTS HAVE BEEN ESTABLISHED BASED ON THE FOURTH PERCENTILE OF cTnI DISTRIBUTION IN A REFERENCE POPULATION, NOTE: HIGH-SENSITIVITY TROPONIN ASSAY IS NOT INTENDED TO BE HAS BEEN CONFIRMED THE DECISION THRESHOLD FOR ID USED IN ISOLATION BUT SHOULD BE INTERPRETED IN CONJUNCTION Performing Lab: see note ML - [facility] LB MAGNESIUM Reviewed date:03/08/2024 03:33:10 PM Interpretation: Performing Lab: Notes/Report: [facility] , Magnesium 1.9 1.8-2.4 mg/dL Performing Lab: see note ML - [facility] LB LIVER PROFILE Reviewed date:03/08/2024 03:33:10 PM Interpretation: Performing Lab: Notes/Report: [facility] , Bilirubin Total 1.4 0.2-1.0 mg/dL Bilirubin Direct 0.4 0.0-0.2 mg/dL Aspartate Amino Transferase 178 15-37 U/L Alanine Aminotransferase 156 14-59 U/L Alkaline Phosphatase 89 46-116 U/L Total Protein 6.3 6.4-8.2 g/dL Albumin Level 3.2 3.4-5.0 g/dL Globulin 3.1 Albumin Globulin Ratio 1.0 Performing Lab: see note ML - [facility] LB LIPASE Reviewed date:03/08/2024 03:33:10 PM Interpretation: Performing Lab: Notes/Report: [facility] , Lipase 26.0 16.0-77.0 U/L Performing Lab: see note ML - [facility] LB LACTATE or LACTIC ACID Reviewed date:03/08/2024 03:33:10 PM Interpretation: Performing Lab: Notes/Report: [facility] , Lactate/Lactic Acid 1.2 0.4-2.0 mmol/L Performing Lab: see note ML - [facility] LB BNP Reviewed date:03/08/2024 03:33:10 PM Interpretation: Performing Lab: Notes/Report: [facility] , NT Pro B Type Natriuretic Pept 697.0 <=1800.0 pg/mL Performing Lab: see note ML - [facility] LB UA RANDOM W or MICROSCOPIC Reviewed date:03/08/2024 03:33:10 PM Interpretation: Performing Lab: Notes/Report: Comment Cath specimen [facility] , Color Urine LT. YELLOW YELLOW Clarity Urine CLEAR CLEAR Specific [place] Urine 1.010 1.005-1.025 pH Urine 7.0 5.0-9.0 [...] Performing Lab: see note ML - [facility] LB PROF CHEM 8 (BAS METB) Reviewed date:03/09/2024 05:32:33 PM Interpretation: Performing Lab: Notes/Report: [facility] , Sodium 141 136-145 mmol/L Potassium 2.9 3.5-5.1 mmol/L 0649 RESULTS CALLED TO JASON VAZQUEZ RN @BY Cecile San at Chloride 103 98-107 mmol/L Carbon Dioxide 21.8 21.0-32.0 mmol/L Anion Gap 19.1 Glucose 164 74-106 mg/dL Blood Urea Nitrogen 21.0 7.0-18.0 mg/dL Creatinine 1.74 0.55-1.02 mg/dL Estimated GFR ( Michelle 34 >=60 mL/min/1.73m 2 Estimated GFR (Non- Gaby 28 >=60 mL/min/1.73m 2 BUN Creatinine Ratio 12.1 Calcium 8.9 8.5-10.1 mg/dL Performing Lab: see note ML - [facility] LB CBC AUTO DIFF Reviewed date:03/09/2024 05:32:33 PM Interpretation: Performing Lab: Notes/Report: [facility] , White Blood Count 9.2 4.0-11.0 [...] Performing Lab: see note ML - [facility] LB Reason For Referral No Information Medications [...] Notes Problem Obstructive sleep apnea syndrome (disorder) (34344833) Obstructive sleep apnea (adult) (pediatric) (G47.33) Active confirmed Problem 787452903 Obesity, unspeci fied (E66.9) Active confirmed Problem 526747394 Mild persistent asthma, uncomplicated (J45.30) Active confirmed Problem Overactive bladder (343688540) Overactive bladder (N32.81) Active confirmed Problem 829409700 MCC (curre nt) use of 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 (Z79.51) Active confirmed Problem Coronary artery disease (42154748) Coronary artery disease (I25.10) Active confirmed Problem Paroxysmal atrial fibrillation (911343724) Paroxysmal atrial fibrillation (I48.0) Active confirmed Problem Benign essential hypertension (2323868) Benign essential hypertension (I10) Active confirmed Problem Multiple pulmonary nodules (385716546) Multiple pulmonary nodules (R91.8) Active confirmed Problem Hypercholesterolemia (30099594) Hypercholesterolemia (E78.00) Active confirmed Problem Secondary pulmonary hypertension (18495339) Other secondary pulmonary hypertension (I27.29) Active confirmed Problem Body mass index 30.0 0 to 34.99 (901769542583307) Body mass index [BMI] 31.0-31.9, adult (Z68.31) Active confirmed Problem Gastroesophageal reflux disease with esophagitis (disorder) (477461785) Gastroesophageal reflux disease with esophagitis without hemorrhage (K21.00) Active confirmed Problem History of COVID-19 (547470153764678834) History of COVID-19 (Z86.16) Active confirmed Vital Signs Heart Rate 60 /min 11/20/2023 Temperature 96.1 degrees Fahrenheit 11/20/2023 Respiratory Rate 18 /min 11/20/2023 Oximetry 93 % 11/20/2023 Blood pressure diastolic 71 mm Hg 11/20/2023 Height 59 in 11/20/2023 Blood pressure systolic 111 mm Hg 11/20/2023 Weight 154.2 lbs 11/20/2023 BMI 31.14 kg/m2 11/20/2023 Encounters Encounter Location Date Provider Diagnosis [facility] [place] [address] [place] [address] 11/20/2023 Rogelio Smith Mild persistent asth ma, uncomplicated J45.30 ; Multiple pulmonary nodules R91.8 ; MCC (current) use of 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 Z79.51 ; [...] imaging will be ordered regarding this. 11/20/2023 MCC (current) use of 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 (ICD-10 - [...] Name:Rogelio Smith, 11/25/2024 10:00:00 AM, [address] [place], [address], Insurance Providers Payer Name Payer Address Payer Phone Subscriber Number Group Number Insured Name Patient Relationship to Insured Coverage Start Date Coverage End Date MEDICARE [place] [address] [address] [place] [address] [phone] [id number] Rupali Cruz Self - patient is the insured 8 [employer] MEDICARE SUPPLEMENT [address] [place] [address] [id number] Kiki mcdonough Rupali Self [...]
--- OUTSIDE RECORDS SUMMARY | 2024-09-26 08:29 | XMS_ITS | Encounter Summary ---
Author Organization [facility] Address [address] [place] [address] Care Team Providers Care Mail Carrier And Clerk Name Role Phone Ovi Crooks Primary Care Provider [phone] Madhavi Arriola DO Unavailable [phone] Encounter Details Date Type Department Care Team (Late st Contact Info) Description 09/13/2023 Clinisync Result Encounter [facility] External Department Unsolicited Celeste Steinberg MD [address] [place] [address] Social History Tobacco Use Types Packs/Day Years [...] on file documented as of this encounter Procedures Procedure Name Priority Date/Time Associated Diagnosis Comments FL MODIFIED BARIUM SWALLOW 09/13/2023 2:07 PM EDT documented in this encounter Results * FL MODIFIED BARIUM SWALLOW (09/13/2023 2:07 PM EDT) Anatomical Region Laterality Modality Radiographic Diya ging 09/13/2023 2:07 PM EDT Narrative 09/13/2023 2:10 PM EDT The [address] [address] Fluoroscopy Report Signed Patient: RUPALI RICHARDSON MR#: [id number] : 1940 Acct:[id number] Age/Sex: 82 / F ADM Date: 09/13/23 Loc: [place] Attending Dr: Celeste Steinberg M.D. Ordering Physician: Celeste Steinberg M.D. Date of Service: 09/13/23 Procedure(s): FL modified barium swallow Accession Number(s): [id number] cc: Ovi Crooks D.O.; Celeste Steinberg M.D. [place] [address] Patient Name: RUPALI RICHARDSON MRN: [id number] date: 1940 Sex: F Assigned Patient Location: [place] Current Patient Location: [place] Accession/Order Number: [id number] Exam Date: 09/13/2023 13:00 Report Date: 09/13/2023 [...] Signed By: 09/13/23 1410 DD/ 1407 TD/TT: Independent Living Advisor: Procedure Note Radiology, Radiologist, MD - 09/13/2023 [place] [address] Fluoroscopy Report Signed Patient: RUPALI RICHARDSON LMR#: [id number] : 1940cct:[id number] Age/Sex: 82 / FADM Date: 09/13/23 Loc: [place] Attending Dr: Celeste Steinberg M.D. Ordering Physician: Celeste Steinberg M.D. Date of Service: 09/13/23 Procedure(s): FL modified barium swallow Accession Number(s): [id number] cc: Ovi Crooks D.O.; Celeste Steinberg M.D. [facility] [place] [address] Patient Name: RUPALI RICHARDSON MRN: [facility]:[id number] date: 1940 Sex: F Assigned Patient Location: [place] Current Patient Location: [place] Accession/Order Number: [id number] Exam Date: 09/13/2023 13:00 Report Date: 09/13/2023 [...] M.D. Signed By:09/13/23 1410 DD/ 1407 TD/TT: Independent Living Advisor: us Celeste Steinberg MD IMG XR PROCEDURES Final Resul t documented in this encounter Visit Diagnoses Not on filedocumented in this encounter Care Teams Mail Carrier And Clerk Relationship Specialty Start Date End Date Ovi Crooks DO PCP - General Internal Medicine 07/10/23 Madhavi Arriola DO [address] [place] [address] Referring Physician Neurology 04/14/24 documented as of this encounter
--- OUTSIDE RECORDS SUMMARY | 2024-09-26 08:29 | XMS_ITS | Encounter Summary ---
Author Organization [facility] Address [address] [place] [address] Care Team Providers Care Phosphoric Acid Operator Name Role Phone Ovi Crooks DO Primary Care Provider [phone] Madhavi Arriola DO Unavailable [phone] Encounter Details Date Type Department Care Team (Late st Contact Info) Description 11/05/2023 Orders Only [facility] 112 [facility] [address] [place] [address] Celeste Steinberg MD 112 [facility] 130 [place], [place] [address] Social History Tobacco Use Types Packs/Day Years [...] Procedure Name Priority Date/Time Associated Diagnosis Comments LICENSED FINAL EXPENSE AGENTS EVAL AND TREAT Routine 09/13/2023 4:13 PM EDT documented in this encounter Results * LICENSED FINAL EXPENSE AGENTS eval and treat (09/13/2023 4:13 PM EDT) us Celeste Steinberg MD LICENSED FINAL EXPENSE AGENTS ORDERABLES Final Result documented in this encounter Visit Diagnoses Not on filedocumented in this encounter Care Teams Phosphoric Acid Operator Relationship Specialty Start Date End Date Ovi Crooks DO PCP - General Internal Medicine 07/10/23 Madhavi Arriloa DO [address] [place] [address] Referring Physician Neurology 04/14/24 documented as of this encounter
--- OUTSIDE RECORDS SUMMARY | 2024-09-26 08:29 | XMS_ITS | Clinical Summary ---
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, unspecified vessel [...] 07/26/2022 Hypertensive pulmonary arterial disease 07/27/19 terminal carman (current) use of 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 06/29 Multiple pulmonary nodules 07/26/2022 Obstructive sleep apnea syndrome 07/26/2022 Overactive bladder 07/26/2022 Paroxysmal atrial fibrillation 07/26/2022 Secondary pulmonary hypertension 07/26/2022 Shortness of breath 07/26/2022 Abnormal stress test 05/11/2022 Overview (05/11/2022): Added automatically from request for surgery [id number] Immunizations Name Administration Dates Next Due Influenza, [...] age to complete this topic Care Teams Paperback Machine Operator Relationship Specialty Start Date End Date Ovi Crooks DO [address] [place] [address] PCP - General 05/09/22
--- OUTSIDE RECORDS SUMMARY | 2024-09-26 08:29 | XMS_ITS | Referral Summary ---
Author Organization 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, unspecified vessel [...] COVID-19 07/26/2022 Hypertensive pulmonary arterial disease 07/27/19 keno terminal operator (current) use of 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 06/29 Multiple pulmonary nodules 07/26/2022 Obstructive sleep apnea syndrome 07/26/2022 Overactive bladder 07/26/2022 Paroxysmal atrial fibrillation 07/26/2022 Secondary pulmonary hypertension 07/26/2022 Shortness of breath 07/26/2022 Abnormal stress test 05/11/2022 Overview (05/11/2022): Added automatically from request for surgery [id number] Immunizations Name Administration Dates Next Due Influenza, [...] of Treatment Not on file Care Teams Piece Worker Relationship Specialty Start Date End Date Ovi Crooks DO [address] [place] [id number] PCP - General 05/09/22
--- OUTSIDE RECORDS SUMMARY | 2024-09-26 08:37 | XMS_ITS | CCD ---
Author Organization [facility] Care Team Providers Care Automation Operator Name Role Phone Zahler, Quinn Unavailable Unavailable Zahler, Quinn Unavailable Unavailable Erliner, Quinn Unavailable Unavailable OVI CROOKS~[id number] UNKNOWN Unavailable Unavailable Zahler, Quinn Unavailable Unavailable Zahler, Quinn Unavailable Unavailable Kala, Quinn Unavailable Unavailable OVI CROOKS~[id number] UNKNOWN Unavailable Unavailable MD Brina Morrissey Attending Provider [phone] Brina Morrissey Unavailable Ovi Crooks Unavailable DR OVI CROOKS Primary Care Unavailable CRISTOBAL .MARY Admitting Unavailable CRISTOBAL .MARY Attending Unavailable JESSICA ., DR ELIZABETH Cerna Attending Unavailable JESSICA ., DR ELIZABETH Cerna Consulting Unavailable JESSICA ., DR ELIZABETH Cerna Admitting Unavailable BALL, DR DIOR Primary Care Unavailable HALKER .DAVID Admitting Unavailable HALKER .DAVID Attending Unavailable HANG, DR DIOR Primary Care Unavailable BALL, DR DIOR Admitting Unavailable BALL, DR DIOR Attending Unavailable BALL, DR DIOR Consulting Unavailable HANG, DR DIOR Primary Care Unavailable CHRISTIN, DR GÓMEZ Mclean Consulting Unavailable HANG, DR DIOR Admitting Unavailable HANG, DR DIOR Primary Care Unavailable HANG, DR DIOR Attending Unavailable BALL, DR DIOR [...] DR ELIZABETH Cerna Admitting Unavailable LAKSHMIPATHY ., NARENDRANATH Admitting Elodia vailable LAKSHMIPATHY ., NARENDDYLAN Attending Elodia vailable LAKSHMIPATHY ., NARENDDYLAN Consulting [...] Unavailable ALGHOTHANI, MOHAMAD Attending Unavailable BALL, DR DIOR Primary Care [...] Unavailable BALL, DR DIOR Primary Care Unavailable ZIEBCHONG, DR WILLIAM Alas Consulting Unavailable JESSICA ., DR ELIZABETH Cerna Attending Unavailable BALL, DR DIOR Primary Care Unavailable JESSICA ., DR ELIZABETH Cerna Consulting Unavailable JASKARAN Rodrigez, DR ELIZABETH Cerna Admitting Unavailable MARY WHEELER Admitting Unavailable DR OVI CROOKS Primary Care Unavailable MARY WHEELER Attending Unavailable HANG, DR DIOR Consulting Unavailable ELVIE, DR WILLIAM Alas Consulting Unavailable MARY WHEELER Consulting Unavailable JEMAL MEDEIROS Attending Unavailable JEMAL MEDEIROS Attending Unavailable JEMAL MEDEIROS Attending Unavailable Ovi Crooks MD Primary Care Provider Zeinab Madhavi Unavailable TORRES ROSA Attending Unavailable TORRES ROSA Attending Unavailable BRIGITTE YANG Attending Unavailable BRIGITTE YANG Attending Unavailable Malena WILLIS, Isaac Chatterjee Attending Unavailable Allergies Allergy Classification Reported Allergen(s) Allergy Type Date of Onset Reaction(s) Facility (1 source) Midazolam Drug Allergy 7 [facility] Repository (6 sources) Midazolam; Translations: [MIDAZOLAM] Drug Allergy 3 Nausea And Vomiting [facility] Repository Medications Current Medications Medication Drug [...] 10 mg tablet Active 0 .ROUTE .COMPLEX 90 December 10, [...] extended release 24hr Active 0 .ROUTE .COMPLEX December 10, 2023 [...] Coronary arteriosclerosis; Translations: [Atherosclerotic heart disease of campo coronary artery without angina pectoris] Onset: 06-07-2022 [...] current use of drug therapy; Translations: [Other intermediate (current) drug therapy] Episodic Other and ill-defined [...] 04-28-2022 Episodic Other aftercare (1 source) Other meterman (current) drug therapy; Translations: [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] Onset: 09-20-2021 Episodic Other aftercare (5 sources) Long-term current use of inhaled steroid; 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: [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] Onset: [...] Basophils (Bld) [#/Vol] Automated basophil count 0.0-0.1 [facility] Basophils/100 WBC Auto (Bld) on 03-09-2024 Basophils/100 WBC (Bld) Automated basophil % Low 0.2-2.0 [facility] Eosinophils/100 WBC Auto (Bl d)on 03-09-2024 Eosinophils/100 WBC (Bld) Automated eosinophil % Low 0.9-7.0 [facility] Erythrocyte distribution wid th Auto (RBC) [Ratio]on 03-09-2024 Erythrocyte distribution width (RBC) [Ratio] Erythrocyte distribution width [Ratio] by Automated count 11.0-15.0 [facility] Estimated glomerular filtrat ion rate (GFR) non- Americanon 03-09-2024 GFR/1.73 sq M.predicted among non-blacks MDRD (S/P/Bld) [Vol rate/Area] Estimated glomerular filtration rate (GFR) non- Low >=60 mL/min/1.73m 2 [facility] Hematocrit Auto (Bld) [Volum e fraction]on 03-09-2024 Hematocrit (Bld) [Volume fraction] Hematocrit [Volume Fraction] of Blood by Automated count Low 36.0-48.0 [facility] Hemoglobin [Mass/volume] in Bloodon 03-09-2024 Hemoglobin (Bld) [Mass/Vol] Hemoglobin [Mass/volume] in Blood Low 12.0-16.0 [facility] Laboratory - Chemistry and C hemistry - challengeon 03-09-2024 Calcium [Mass/Vol] 8.9 mg/dL 8.5-10.1 [facility] Chloride [Moles/Vol] 103 mmol/L 98-107 [facility] CO2 [Moles/Vol] 21.8 mmol/L 21.0-32.0 [facility] Creatinine [Mass/Vol] 1.74 mg/dL High 0.55-1.02 [facility] GFR/1.73 sq M.predicted MDRD (S/P/Bld) [Vol rate/Area] 34 mL/min/{1.73_m2} Low >=60 mL/min/1.73m 2 [facility] Glucose [Mass/Vol] 164 mg/dL High 74-106 [facility] Potassium [Moles/Vol] 2.9 mmol/L Critically low 3.5-5.1 [facility] Comment on above: RESULTS CALLED TO KAROL VAZQUEZ RN @BY Cecile San [phone] Sodium [Moles/Vol] 141 mmol/L 136-145 [facility] Urea nitrogen [Mass/Vol] 21.0 mg/dL High 7.0-18.0 [facility] Urea nitrogen/Creatinine [Mass ratio] 12.1 mg/mg [facility] Laboratory - Hematology and Cell countson 03-09-2024 Immature granulocytes/100 WBC (Bld) 0.7 % High 0.0-0.5 [facility] Leukocytes [#/volume] correc jonnie for nucleated erythrocytes in Blood by Automated counon 03-09-2024 WBC corrected for nucl RBC Auto (Bld) [#/Vol] Leukocytes [#/volume] corrected for nucleated erythrocytes in Blood by Automated coun 4.0-11.0 [facility] Lymphocytes Auto (Bld) [#/Vo l]on 03-09-2024 Lymphocytes (Bld) [#/Vol] Lymphocytes [#/volume] in Blood by Automated count 1.2-3.8 [facility] Lymphocytes/100 WBC Auto (Bl d)on 03-09-2024 Lymphocytes/100 WBC (Bld) Lymphocytes/100 leukocytes in Blood by Automated count Low 20.5-60.0 [facility] MCH Auto (RBC) [Entitic mass ]on 03-09-2024 MCH (RBC) [Entitic mass] MCH [Entitic mass] by Automated count 26.7-34.0 [facility] MCHC Auto (RBC) [Mass/Vol]on 03-09-2024 MCHC (RBC) [Mass/Vol] MCHC [Mass/volume] by Automated count 29.9-35.2 [facility] MCV Auto (RBC) [Entitic vol] on 03-09-2024 MCV (RBC) [Entitic vol] MCV [Entitic volume] by Automated count 81.0-99.0 [facility] Monocytes Auto (Bld) [#/Vol] on 03-09-2024 Monocytes (Bld) [#/Vol] Automated blood monocyte count 0.3-0.8 [facility] Monocytes/100 WBC Auto (Bld) on 03-09-2024 Monocytes/100 WBC (Bld) Automated monocyte % 1.7-12.0 [facility] Neutrophils Auto (Bld) [#/Vo l]on 03-09-2024 Neutrophils (Bld) [#/Vol] Neutrophils [#/volume] in Blood by Automated count High 1.4-6.5 [facility] Neutrophils/100 WBC Auto (Bl d)on 03-09-2024 Neutrophils/100 WBC (Bld) Automated neutrophil % High 43.0-75.0 [facility] No Panel Informationon 03-09 Eosinophils # (Auto) 0.0 10 3/uL 0.0-0.7 [facility] Immature Granulocyte # (Auto) 0.06 10 3/uL High 0.00-0.03 [facility] Platelet mean volume Auto (B ld) [Entitic vol]on 03-09-2024 Platelet mean volume (Bld) [Entitic vol] Platelet mean volume [Entitic volume] in Blood by Automated count 9.5-13.5 [facility] Platelets Auto (Bld) [#/Vol] on 03-09-2024 Platelets (Bld) [#/Vol] Platelets [#/volume] in Blood by Automated count 150-450 [facility] RBC Auto (Bld) [#/Vol]on RBC (Bld) [#/Vol] Erythrocytes [#/volume] in Blood by Automated count Low 4.20-5.40 [facility] Serum or plasma anion gap de terminationon 03-09-2024 Anion gap [Moles/Vol] Serum or plasma an ion gap determination [facility] Basophils Auto (Bld) [#/Vol] on 03-08-2024 Basophils (Bld) [#/Vol] Automated basophil count 0.0-0.1 [facility] Basophils/100 WBC Auto (Bld) on 03-08-2024 Basophils/100 WBC (Bld) Automated basophil % 0.2-2.0 [facility] Eosinophils/100 WBC Auto (Bl d)on 03-08-2024 Eosinophils/100 WBC (Bld) Automated eosinophil % 0.9-7.0 [facility] Erythrocyte distribution wid th Auto (RBC) [Ratio]on 03-08-2024 Erythrocyte distribution width (RBC) [Ratio] Erythrocyte distribution width [Ratio] by Automated count 11.0-15.0 [facility] Estimated glomerular filtrat ion rate (GFR) non- Americanon 03-08-2024 GFR/1.73 sq M.predicted among non-blacks MDRD (S/P/Bld) [Vol rate/Area] Estimated glomerular filtration rate (GFR) non- Low >=60 mL/min/1.73m 2 [facility] Fibrin D-dimer [Presence] in Platelet poor plasma by Latex agglutinationon 03-08-2024 Fibrin D-dimer LA Ql (PPP) Fibrin D-dimer [Presence] in Platelet poor plasma by Latex agglutination Critically high <=0.59 [facility] Comment on above: RESULTS CALLED TO CHONG [...] [Mass/Vol] Serum globulin measurement by calculation (mass/volume) [facility] Hematocrit Auto (Bld) [Volum e fraction]on 03-08-2024 Hematocrit (Bld) [Volume fraction] Hematocrit [Volume Fraction] of Blood by Automated count Low 36.0-48.0 [facility] Hemoglobin [Mass/volume] in Bloodon 03-08-2024 Hemoglobin (Bld) [Mass/Vol] Hemoglobin [Mass/volume] in Blood Low 12.0-16.0 [facility] Laboratory - Chemistry and C hemistry - challengeon 03-08-2024 Albumin [Mass/Vol] 3.2 g/dL Low 3.4-5.0 [facility] ALP [Catalytic activity/Vol] 89 U/L 46-116 [facility] ALT [Catalytic activity/Vol] 156 U/L High 14-59 [facility] AST [Catalytic activity/Vol] 178 U/L High 15-37 [facility] Bilirubin [Mass/Vol] 1.4 mg/dL High 0.2-1.0 [facility] Bilirubin.direct [Mass/Vol] 0.4 mg/dL High 0.0-0.2 [facility] Lactate [Moles/Vol] 1.2 mmol/L 0.4-2.0 [facility] Lipase [Catalytic activity/Vol] 26.0 U/L 16.0-77.0 [facility] Magnesium [Mass/Vol] 1.9 mg/dL 1.8-2.4 [facility] Natriuretic peptide B (Bld) [Mass/Vol] 697.0 pg/mL <=1800.0 [facility] Protein [Mass/Vol] 6.3 g/dL Low 6.4-8.2 [facility] Bilirubin Ql (U) Negative NEGATIVE [facility] Glucose (U) [Mass/Vol] Negative NEGATIVE [facility] Ketones Ql (U) Negative NEGATIVE [facility] pH (U) 7.0 [pH] 5.0-9.0 [facility] Specific gravity (U) [Rel density] 1.010 1.005-1.025 [facility] Urobilinogen Qn (U) 1.0 {Nora'U}/dL 0.2-1.0 [facility] Calcium [Mass/Vol] 9.0 mg/dL 8.5-10.1 [facility] Chloride [Moles/Vol] 106 mmol/L 98-107 [facility] CO2 [Moles/Vol] 29.0 mmol/L 21.0-32.0 [facility] Creatinine [Mass/Vol] 1.25 mg/dL High 0.55-1.02 [facility] GFR/1.73 sq M.predicted MDRD (S/P/Bld) [Vol rate/Area] 50 mL/min/{1.73_m2} Low >=60 mL/min/1.73m 2 [facility] Glucose [Mass/Vol] 111 mg/dL High 74-106 [facility] Potassium [Moles/Vol] 3.1 mmol/L Low 3.5-5.1 [facility] Sodium [Moles/Vol] 145 mmol/L 136-145 [facility] Urea nitrogen [Mass/Vol] 18.0 mg/dL 7.0-18.0 [facility] Urea nitrogen/Creatinine [Mass ratio] 14.4 mg/mg [facility] Laboratory - Hematology and Cell countson 03-08-2024 Immature granulocytes/100 WBC (Bld) 0.3 % 0.0-0.5 [facility] Laboratory - Microbiology an d Antimicrobial susceptibilityon 03-08-2024 SARS-CoV-2 (COVID-19) RNA RADHA+probe Ql (Unsp spec) Negative NEGATIVE [facility] Comment on above: This test has not [...] Ql (Vag fld) Not detected NOT DETECTE [facility] Laboratory - Specimen inform ationon 11-09-2024 Appearance (U) CLEAR CLEAR [facility] Color (U) LT. YELLOW YELLOW [facility] Laboratory - Urinalysison Hyaline casts LM Ql (Urine sed) RARE [facility] Leukocyte esterase Test strip Ql (U) Negative NEGATIVE [facility] Mucus Ql (Urine sed) TRACE Abnormal NONE SEEN [facility] Nitrite Ql (U) Negative NEGATIVE [facility] Protein Ql (U) Negative NEG/TRACE [facility] Leukocytes [#/volume] correc jonnie for nucleated erythrocytes in Blood by Automated counon 03-08-2024 WBC corrected for nucl RBC Auto (Bld) [#/Vol] Leukocytes [#/volume] corrected for nucleated erythrocytes in Blood by Automated coun 4.0-11.0 [facility] Lymphocytes Auto (Bld) [#/Vo l]on 03-08-2024 Lymphocytes (Bld) [#/Vol] Lymphocytes [#/volume] in Blood by Automated count 1.2-3.8 [facility] Lymphocytes/100 WBC Auto (Bl d)on 03-08-2024 Lymphocytes/100 WBC (Bld) Lymphocytes/100 leukocytes in Blood by Automated count Low 20.5-60.0 [facility] MCH Auto (RBC) [Entitic mass ]on 03-08-2024 MCH (RBC) [Entitic mass] MCH [Entitic mass] by Automated count 26.7-34.0 [facility] MCHC Auto (RBC) [Mass/Vol]on 03-08-2024 MCHC (RBC) [Mass/Vol] MCHC [Mass/volume] by Automated count 29.9-35.2 [facility] MCV Auto (RBC) [Entitic vol] on 03-08-2024 MCV (RBC) [Entitic vol] MCV [Entitic volume] by Automated count 81.0-99.0 [facility] Monocytes Auto (Bld) [#/Vol] on 03-08-2024 Monocytes (Bld) [#/Vol] Automated blood monocyte count 0.3-0.8 [facility] Monocytes/100 WBC Auto (Bld) on 03-08-2024 Monocytes/100 WBC (Bld) Automated monocyte % 1.7-12.0 [facility] Neutrophils Auto (Bld) [#/Vo l]on 03-08-2024 Neutrophils (Bld) [#/Vol] Neutrophils [#/volume] in Blood by Automated count High 1.4-6.5 [facility] Neutrophils/100 WBC Auto (Bl d)on 03-08-2024 Neutrophils/100 WBC (Bld) Automated neutrophil % 43.0-75.0 [facility] No Panel Informationon 03-08 Troponin I High Sensitivity 9.3 pg/mL 4.0-51.3 [facility] Comment on above: CUT-OFF POINTS HAVE BEEN [...] INFORMATION. Bedside Influenza Type A Antigen Negative [facility] Comment on above: Negative for Flu A p rotein antigen. Infection due to Flu Acannot be ruled out. Flu A antigen in the sample may bebelow the detection limit of the test. Bedside Influenza Type B Antigen Negative [facility] Comment on above: Negative for Flu B p rotein antigen. Infection due to Flu Bcannot be ruled out. Flu B antigen in the sample may bebelow the detection limit of the test. Urine Bacteria TRACE #/HPF Abnormal NONE SEEN [facility] Urine Culture [facility] Urine Occult Blood TRACE-L NEGATIVE [facility] Urine Other Casts SEEN #/LPF Abnormal NONE SEEN [facility] Urine Other Crystals None Seen #/HPF None Seen [facility] Urine RBC 0-2 #/HPF 0-2 [facility] Urine Squamous Epithelial Cells RARE #/LPF NONE/RARE [facility] Urine WBC 0-2 #/HPF Abnormal NONE SEEN [facility] A.calcoaceticus-fadi dean cmplx PCR Not detected NOT DETECTE [facility] Bacteroides fragilis (PCR) Not detected NOT DETECTE [facility] Blood Culture Source Blood [facility] Tawnya albicans (PCR) Not detected NOT DETECTE [facility] Tawnya auris (PCR) Not detected NOT DETECTE [facility] Tawnya glabrata (PCR) Not detected NOT DETECTE [facility] Tawnya krusei (PCR) Not detected NOT DETECTE [facility] Tawnya parapsilosis (PCR) Not detected NOT DETECTE [facility] Tawnya tropicalis (PCR) Not detected NOT DETECTE [facility] Crypto neoformans/gattii (PCR)(LAB) Not detected NOT DETECTE [facility] CTX-M ESBL (PCR) NOT APPLICABLE NOT DETECTE [facility] Enterobacter cloacae complex (PCR) Not detected NOT DETECTE [facility] Enterobacterales (PCR) Not detected NOT DETECTE [facility] Enterococcus faecalis PCR Not detected NOT DETECTE [facility] Enterococcus faecium PCR Not detected NOT DETECTE [facility] Escherichia coli Result Not detected NOT DETECTE [facility] Haemophilus influenzae DNA Not detected NOT DETECTE [facility] IMP (blaIMP) Carbap Res Gene (PCR) NOT APPLICABLE NOT DETECTE [facility] Klebsiella aerogenes (PCR) Not detected NOT DETECTE [facility] Klebsiella oxytoca (PCR) Not detected NOT DETECTE [facility] Klebsiella pneumoniae group (PCR) Not detected NOT DETECTE [facility] KPC (blaKPC) Detection (PCR) NOT APPLICABLE NOT DETECTE [facility] Listeria monocytogenes (PCR) Not detected NOT DETECTE [facility] MCR-1 Resistance Gene NOT APPLICABLE NOT DETECT E [facility] mecA/C & MREJ Antimicrob Resist Gen NOT APPLICABLE NOT DETECTE [facility] mecA/C-Methicillin Resistance Gene NOT APPLICABLE NOT DETECTE [facility] NDM (blaNDM) Detection (PCR) NOT APPLICABLE NOT DETECTE [facility] Neisseria meningitidis (PCR) Not detected NOT DETECTE [facility] Proteus species (PCR) Not detected NOT DETECTE [facility] Pseudomonas aeruginosa (PCR) Not detected NOT DETECTE [facility] Salmonella spp. (PCR) Not detected NOT DETECTE [facility] Serratia marcescens (PCR) Not detected NOT DETECTE [facility] Staphylococcus aureus (PCR)(LAB) Not detected NOT DETECTE [facility] Staphylococcus epidermidis (PCR) Not detected NOT DETECTE [facility] Staphylococcus lugdunensis (TEM-PCR Not detected NOT DETECTE [facility] Staphylococcus species (PCR) Not detected NOT DETECTE [facility] Stenotroph. maltophilia (PCR) Not detected NOT DETECTE [facility] Streptococcus pneumoniae (PCR) Not detected NOT DETECTE [facility] Streptococcus pyogenes (PCR)(LAB) Not detected NOT DETECTE [facility] Streptococcus species (PCR) Not detected NOT DETECTE [facility] Syn OXA-48-like Carb Res Gene (PCR) NOT APPLICABLE NOT DETECTE [facility] Giovanny/B-Vancomycin Resistance Genes NOT APPLICABLE NOT DETECTE [facility] VIM (blaVIM) Carbap Res Gene (PCR) NOT APPLICABLE NOT DETECTE [facility] Eosinophils # (Auto) 0.1 10 3/uL 0.0-0.7 [facility] Immature Granulocyte # (Auto) 0.03 10 3/uL 0.00-0.03 [facility] No Panel InformationOrdered By: Rich Carcamo on 03-08-2024 Anaerobe Identification Only [facility] Blood Culture 1 [facility] Platelet mean volume Auto (B ld) [Entitic vol]on 03-08-2024 Platelet mean volume (Bld) [Entitic vol] Platelet mean volume [Entitic volume] in Blood by Automated count 9.5-13.5 [facility] Platelets Auto (Bld) [#/Vol] on 03-08-2024 Platelets (Bld) [#/Vol] Platelets [#/volume] in Blood by Automated count 150-450 [facility] RBC Auto (Bld) [#/Vol]on RBC (Bld) [#/Vol] Erythrocytes [#/volume] in Blood by Automated count Low 4.20-5.40 [facility] Serum or plasma albumin/glob ulin mass ratioon 03-08-2024 Albumin/Globulin [Mass ratio] Serum or plasma albumin/globulin mass ratio [facility] Serum or plasma anion gap de terminationon 03-08-2024 Anion gap [Moles/Vol] Serum or plasma an ion gap determination [facility] Basophils Auto (Bld) [#/Vol] on 11-07-2023 Basophils (Bld) [#/Vol] 0.0 10 3/uL 0.0-0.1 [facility] Basophils/100 WBC Auto (Bld) on 11-07-2023 Basophils/100 WBC (Bld) 0.4 % 0.2-2.0 [facility] Eosinophils/100 WBC Auto (Bl d)on 11-07-2023 Eosinophils/100 WBC (Bld) 2.6 % 0.9-7.0 [facility] Erythrocyte distribution wid th Auto (RBC) [Ratio]on 11-07-2023 Erythrocyte distribution width (RBC) [Ratio] 13.3 % 11.0-15.0 [facility] Estimated glomerular filtrat ion rate (GFR) non- Americanon 11-07-2023 GFR/1.73 sq M.predicted among non-blacks MDRD (S/P/Bld) [Vol rate/Area] 45 mL/min/{1.73_m2} Low >=60 [facility] Hematocrit Auto (Bld) [Volum e fraction]on 11-07-2023 Hematocrit (Bld) [Volume fraction] 35.4 % Low 36.0-48.0 [facility] Hemoglobin [Mass/volume] in Bloodon 11-07-2023 Hemoglobin (Bld) [Mass/Vol] 11.8 g/dL Low 12.0-16.0 [facility] Iron binding capacity [Mass/ volume] in Serum or Plasmaon 11-07-2023 Iron binding capacity [Mass/Vol] 258.0 ug/dL 250.0-450.0 [facility] Iron saturation [Mass Fracti on] in Serum or Plasmaon 11-07-2023 Iron saturation [Mass fraction] 31.8 % [facility] Laboratory - Chemistry and C hemistry - challengeon 11-07-2023 Calcium [Mass/Vol] 10.0 mg/dL 8.5-10.1 [facility] Chloride [Moles/Vol] 102 mmol/L 98-107 [facility] CO2 [Moles/Vol] 30.7 mmol/L 21.0-32.0 [facility] Cobalamin (Vitamin B12) [Mass/Vol] 344.0 pg/mL 193.0-986.0 [facility] Creatinine [Mass/Vol] 1.17 mg/dL High 0.55-1.02 [facility] Ferritin [Mass/Vol] 154.0 ng/mL 8.0-252.0 [facility] GFR/1.73 sq M.predicted MDRD (S/P/Bld) [Vol rate/Area] 54 mL/min/{1.73_m2} Low >=60 [facility] Glucose [Mass/Vol] 107 mg/dL High 74-106 [facility] Iron [Mass/Vol] 82.0 ug/dL 50.0-170.0 [facility] Potassium [Moles/Vol] 3.5 mmol/L 3.5-5.1 [facility] Sodium [Moles/Vol] 141 mmol/L 136-145 [facility] Urea nitrogen [Mass/Vol] 15.0 mg/dL 7.0-18.0 [facility] Urea nitrogen/Creatinine [Mass ratio] 12.8 mg/mg [facility] Laboratory - Hematology and Cell countson 11-07-2023 Immature granulocytes/100 WBC (Bld) 0.2 % 0.0-0.5 [facility] Leukocytes [#/volume] correc jonnie for nucleated erythrocytes in Blood by Automated counon 11-07-2023 WBC corrected for nucl RBC Auto (Bld) [#/Vol] 5.3 10 3/uL 4.0-11.0 [facility] Lymphocytes Auto (Bld) [#/Vo l]on 11-07-2023 Lymphocytes (Bld) [#/Vol] 1.9 10 3/uL 1.2-3.8 [facility] Lymphocytes/100 WBC Auto (Bl d)on 11-07-2023 Lymphocytes/100 WBC (Bld) 35.4 % 20.5-60.0 [facility] MCH Auto (RBC) [Entitic mass ]on 11-07-2023 MCH (RBC) [Entitic mass] 30.6 pg 26.7-34.0 [facility] MCHC Auto (RBC) [Mass/Vol]on 11-07-2023 MCHC (RBC) [Mass/Vol] 33.3 g/dL 29.9-35.2 [facility] MCV Auto (RBC) [Entitic vol] on 11-07-2023 MCV (RBC) [Entitic vol] 91.7 fL 81.0-99.0 [facility] Monocytes Auto (Bld) [#/Vol] on 11-07-2023 Monocytes (Bld) [#/Vol] 0.6 10 3/uL 0.3-0.8 [facility] Monocytes/100 WBC Auto (Bld) on 11-07-2023 Monocytes/100 WBC (Bld) 12.1 % High 1.7-12.0 [facility] Neutrophils Auto (Bld) [#/Vo l]on 11-07-2023 Neutrophils (Bld) [#/Vol] 2.6 10 3/uL 1.4-6.5 [facility] Neutrophils/100 WBC Auto (Bl d)on 11-07-2023 Neutrophils/100 WBC (Bld) 49.3 % 43.0-75.0 [facility] No Panel Informationon 11-06 Eosinophils # (Auto) 0.1 10 3/uL 0.0-0.7 [facility] Folate 17.80 ng/mL 8.60-58.90 [facility] Immature Granulocyte # (Auto) 0.01 10 3/uL 0.00-0.03 [facility] Platelet mean volume Auto (B ld) [Entitic vol]on 11-07-2023 Platelet mean volume (Bld) [Entitic vol] 12.2 fL 9.5-13.5 [facility] Platelets Auto (Bld) [#/Vol] on 11-07-2023 Platelets (Bld) [#/Vol] 190 10 3/uL 150-450 [facility] RBC Auto (Bld) [#/Vol]on RBC (Bld) [#/Vol] 3.86 10 6/uL Low 4.20-5.40 [facility] Serum or plasma anion gap de terminationon 11-07-2023 Anion gap [Moles/Vol] 11.8 mmol/L [facility] Office Visiton 01-05-2023 Follow-up visit [id number] Giovanna Richardson Evan 1940 F Date Provider Department Center 01/05/2023 3848-LEYDIMARGARITOBAILEYBERNYSimran [facility] Family History Problem Relation Age of Onset No Known Problems Mother No Known Problems Father Family Status - Relation Status Age at Mother Father Level of Service:70980 [place] OFFICE/OUTPATIENT ESTABLISHED LOW MDM 20-29 MIN Normal [facility] FUNGAL AB QUANTITAIVE DOUBLE IMMUNODIFFUon 07-30-2022 Aspergillus flavus Negative Normal Neg:<1:1 [facility] Comment on above: Performed By: #### F UNGUYI #### [facility] [address] [address] [address] Milena Rosa Aspergillus fumigatus Negative Normal Neg:<1:1 [facility] Comment on above: Performed By: #### F UNGUYI #### [facility] [address] [address] [address] Milena Rosa Aspergillus niger Negative Normal Neg:<1:1 [facility] Comment on above: Performed By: #### F UNGUYI #### [facility] [address] [address] [address] Milena Rosa Blastomyces Negative Normal Neg:<1:1 [facility] Comment on above: Performed By: #### F UNGUYI #### [facility] [address] [address] [address] Milena Rosa HISTOPLASMA GALACTOMANNAN AG URINEon 07-30-2022 Histoplasma Gal'rosales Ag <0.5 Normal <0.5 ng/mL [facility] Comment on above: Performed By: #### H ISTGAL ####[facility] [address] [place], [place] [address]Dr. Milena Rosa COCCIDIODES IGG/IGM AB BY IF Aon 07-29-2022 Coccidiodes Ab, IgG EIA 0.1 EIA Units Normal [facility] Comment on above: Result Comment: Nega tive <1.0 Indeterminate 1.0-1.4 Positive >1.4 Performed By: #### C OCCABS #### [facility] [address] [place], [place] [address] Dr. Milena Rosa Coccidiodes Ab, IgM, EIA 0.0 EIA Units Normal [facility] Comment on above: Result Comment: Nega tive <1.0 Indeterminate 1.0-1.4 Positive >1.4 Performed By: #### C OCCABS #### [facility] [address] [address] [address] Milena Rosa HISTOPLASMA CAP AB QUANT DID on 07-29-2022 Histoplasma Mycelial CF Ab. Negative Normal Neg:<1:2 [facility] Comment on above: Performed By: #### H ISTDID ####[facility] [address] [id number]. Milena Rosa Histoplasma Yeast CF Ab Negative Normal Neg:<1:2 [facility] Comment on above: Performed By: #### H ISTDID ####[facility] [address] [id number] Rosa Office Visiton 07-26-2022 Follow-up visit [id number] Giovanna Richardson 1940 F Date Provider Department Center 07/26/2022 3848-JEMAL MEDEIROS [facility] Family History Problem Relation Age of Onset No Known Problems Mother No Known Problems Father Family Status - Relation Status Age at Mother Father Level of Service:65294 [place] OFFICE/OUTPATIENT ESTABLISHED MOD MDM 30-39 MIN Reason for Visit and Comments: Follow-up [618256] - 6 weeks- Go over Holter monitor results- Discuss medications Normal [facility] CT CHEST WO CONon 07-19-2022 CT [...] BERMEO Date: 2022-07-19 14:55 Normal [facility] Office Visiton 06-07-2022 Follow-up visit [id number] Giovanna Richardson 1940 F Date Provider Department Center 06/07/2022 3848-JEMAL MEDEIROS [facility] Family History Problem Relation Age of Onset No Known Problems Mother No Known Problems Father Family Status - Relation Status Age at Mother Father Level of Service:54507 [place] OFFICE/OUTPATIENT ESTABLISHED MOD MDM 30-39 MIN Reason for Visit and Comments: Post-Cath [731] Normal [facility] CBC AUTO DIFFon 05-15-2022 BASO # 0.0 103/ul Normal 0.0-0.1 [facility] Comment on above: Performed By: #### C BC #### [facility] [address] [address] [address] Milena Rosa Basophils/100 WBC (Bld) 0.3 % Normal 0.2-2.0 [facility] Comment on above: Performed By: #### C BC #### [facility] [address] [place], [place] [address] Dr. Milena Rosa EO # 0.2 103/ul Normal 0.0-0.7 [facility] Comment on above: Performed By: #### C BC #### [facility] [address] [place] [address] Dr. Milena Rosa Eosinophils/100 WBC (Bld) 2.8 % Normal 0.9-7.0 [facility] Comment on above: Performed By: #### C BC #### [facility] [address] [place] [address] Dr. Milena Rosa Erythrocyte distribution width (RBC) [Ratio] 13.3 % Normal 11.0-15.0 [facility] Comment on above: Performed By: #### C BC #### [facility] [address] [place] [address] Dr. Milena Rosa Hematocrit (Bld) [Volume fraction] 38.5 % Normal 36.0-48.0 [facility] Comment on above: Performed By: #### C BC #### [facility] [address] [place] [address] Dr. Milena Rosa Hemoglobin (Bld) [Mass/Vol] 12.6 g/dL Normal 12.0-16.0 [facility] Comment on above: Performed By: #### C BC #### [facility] [address] [place] [address] Dr. Milena Rosa IG # 0.02 10e3/ul Normal 0.00-0.03 [facility] Comment on above: Performed By: #### C BC #### [facility] [address] [place] [address] Dr. Milena Rosa IG % 0.3 % Normal 0.0-0.5 [facility] Comment on above: Performed By: #### C BC #### [facility] [address] [place] [address] Dr. Milena Rosa LYMPH # 2.5 103/ul Normal 1.2-3.8 [facility] Comment on above: Performed By: #### C BC #### [facility] [address] [place] [address] Dr. Milena Rosa Lymphocytes/100 WBC (Bld) 37.6 % Normal 20.5-60.0 [facility] Comment on above: Performed By: #### C BC #### [facility] [address] [place] [address] Dr. Milena Rosa MANUAL DIFF REQ NO Normal [facility] Comment on above: Performed By: #### C BC #### [facility] [address] [place] [address] Dr. Milena Rosa MCH (RBC) [Entitic mass] 29.8 pg Normal 26.7-34.0 [facility] Comment on above: Performed By: #### C BC #### [facility] [address] [place] [address] Dr. Milena Rosa MCHC (RBC) [Mass/Vol] 32.7 g/dL Normal 29.9-35.2 [facility] Comment on above: Performed By: #### C BC #### [facility] [address] [place] [address] Dr. Milena Rosa MCV (RBC) [Entitic vol] 91.0 fL Normal 81.0-99.0 [facility] Comment on above: Performed By: #### C BC #### [facility] [address] [place] [address] Dr. Milena Rosa MONO # 0.7 103/ul Normal 0.3-0.8 [facility] Comment on above: Performed By: #### C BC #### [facility] [address] [place] [address] Dr. Milena Rosa Monocytes/100 WBC (Bld) 10.0 % Normal 1.7-12.0 [facility] Comment on above: Performed By: #### C BC #### [facility] [address] [place] [address] Dr. Milena Rosa NEUT # 3.3 103/ul Normal 1.4-6.5 [facility] Comment on above: Performed By: #### C BC #### [facility] [address] [place] [address] Dr. Milena Rosa Neutrophils/100 WBC (Bld) 49.0 % Normal 43.0-75.0 [facility] Comment on above: Performed By: #### C BC #### [facility] [address] [address] [address] Milena Rosa Platelet mean volume (Bld) [Entitic vol] 11.5 fL Normal 9.5-13.5 [facility] Comment on above: Performed By: #### C BC #### [facility] [address] [place] [address] Dr. Milena Rosa PLT 201 103/ul Normal 150-450 [facility] Comment on above: Performed By: #### C BC #### [facility] [address] [address] [address] Milena Rosa RBC 4.23 106/ul Normal 4.20-5.40 [facility] Comment on above: Performed By: #### C BC #### [facility] [address] [place] [address] Dr. Milena Rosa WBC 6.7 103/ul Normal 4.0-11.0 [facility] Comment on above: Performed By: #### C BC #### [facility] [address] [address] [address] Milena Rosa Covid-19 PCR (CVDTB)on 04-30 SARS-CoV-2 (COVID-19) RNA RADHA+probe Ql (Unsp spec) Not detected Normal NOT DETECTED [facility] Comment on above: Result Comment: This test is not yet approved or cleared by the [place] FDA. When there are no FDA-approved or cleared tests available, and other criteria are met, FDA can make tests available under an emergency access mechanism called an Emergency Use Authorization (EUA). The EUA for this test is supported by the [employer] Tender of Health and Human Service's (HHS's) declaration [...] consistent with SARS-CoV-2. Performed By: #### [facility] ####[facility] [address] [address]Dr. Milena Rosa PROF CHEM 8 (BAS METB)on Anion gap [Moles/Vol] 13.1 mmol/L Normal [facility] Comment on above: Performed By: #### B MP #### [facility] [address] [address] [address] Milena Rosa Calcium [Mass/Vol] 9.8 mg/dL Normal 8.5-10.1 [facility] Comment on above: Performed By: #### B MP #### [facility] [address] [place] [address] Dr. Milena Rosa Chloride [Moles/Vol] 103 mmol/L Normal 98-107 [facility] Comment on above: Performed By: #### B MP #### [facility] [address] [address] [address] Milena Rosa CO2 [Moles/Vol] 26.7 mmol/L Normal 21.0-32.0 [facility] Comment on above: Performed By: #### B MP #### [facility] [address] [place] [address] Dr. Milena Rosa Creatinine [Mass/Vol] 0.95 mg/dL Normal 0.55-1.02 [facility] Comment on above: Performed By: #### B MP #### [facility] [address] [place] [address] Dr. Milena Rosa EGFR-AF PORTUGUESE >60 Normal >=60 [facility] Comment on above: Performed By: #### B MP #### [facility] [address] [address] [address] Milena Rosa EGFR-NON AF PORTUGUESE 57 mL/min/1.73m2 Critically low >=60 [facility] Comment on above: Performed By: #### B MP #### [facility] [address] [place] [address] Dr. Milena Rosa Glucose [Mass/Vol] 93 mg/dL Normal 74-106 [facility] Comment on above: Performed By: #### B MP #### [facility] [address] [address] [address] Milena Rosa Potassium [Moles/Vol] 3.8 mmol/L Normal 3.5-5.1 [facility] Comment on above: Performed By: #### B MP #### [facility] [address] [address] [address] Milena Rosa Sodium [Moles/Vol] 139 mmol/L Normal 136-145 [facility] Comment on above: Performed By: #### B MP #### [facility] [address] [address] [address] Milena Rosa Urea nitrogen [Mass/Vol] 18.0 mg/dL Normal 7.0-18.0 [facility] Comment on above: Performed By: #### B MP #### [facility] [address] [address] [address] Milena Rosa Urea nitrogen/Creatinine [Mass ratio] 18.9 mg/mg Normal [facility] Comment on above: Performed By: #### B MP #### [facility] [id number] Milena Rosa NM STRESS/REST MULTIon 04-28 NM STRESS/REST MULTI Patient: GIOVANNA RICHARDSON Exam Date: 04/28/2022 : 1940 Gender:F Ordering : DR OVI CROOKS D.O. Admission #: [id number] Family : Order #: [id number] CLICK HERE TO VIEW EXAM RADIOLOGY REPORT [...] MD on 04/28/2022 at 14:26 Normal [facility] CBC AUTO DIFFon 02-27-2022 BASO # 0.0 103/ul Normal 0.0-0.1 [facility] Comment on above: Performed By: #### C BC ####[facility] [address] [address]Dr. Milena Rosa Basophils/100 WBC (Bld) 0.5 % Normal 0.2-2.0 [facility] Comment on above: Performed By: #### C BC ####[facility] [address] [place], [place] [address]DrElia Rosa EO # 0.1 103/ul Normal 0.0-0.7 [facility] Comment on above: Performed By: #### C BC ####[facility] [address] [address]DrElia Rosa Eosinophils/100 WBC (Bld) 1.9 % Normal 0.9-7.0 [facility] Comment on above: Performed By: #### C BC ####[facility] [address] [address]DrElia Rosa Erythrocyte distribution width (RBC) [Ratio] 14.3 % Normal 11.0-15.0 [facility] Comment on above: Performed By: #### C BC ####[facility] [address] [address]Dr. Milena Rosa Hematocrit (Bld) [Volume fraction] 37.6 % Normal 36.0-48.0 [facility] Comment on above: Performed By: #### C BC ####[facility] [address] [place], [place] [address]Dr. Milena Rosa Hemoglobin (Bld) [Mass/Vol] 12.6 g/dL Normal 12.0-16.0 [facility] Comment on above: Performed By: #### C BC ####[facility] [address] [place], [place] [address]Dr. Milena Rosa IG # 0.02 10e3/ul Normal 0.00-0.03 [facility] Comment on above: Performed By: #### C BC ####[facility] [address] [place], [place] [address]Dr. Milena Rosa IG % 0.3 % Normal 0.0-0.5 [facility] Comment on above: Performed By: #### C BC ####[facility] [address] [place], [place] [address]Dr. Milena Rosa LYMPH # 2.1 103/ul Normal 1.2-3.8 [facility] Comment on above: Performed By: #### C BC ####[facility] [address] [place], [place] [address]Dr. Milena Rosa Lymphocytes/100 WBC (Bld) 33.2 % Normal 20.5-60.0 [facility] Comment on above: Performed By: #### C BC ####[facility] [address] [place], [place] [address]Dr. Milena Rosa MANUAL DIFF REQ NO Normal [facility] Comment on above: Performed By: #### C BC ####[facility] [address] [address]Dr. Milena Rosa MCH (RBC) [Entitic mass] 30.9 pg Normal 26.7-34.0 [facility] Comment on above: Performed By: #### C BC ####[facility] [address] [address]Dr. Milena Moe MCHC (RBC) [Mass/Vol] 33.5 g/dL Normal 29.9-35.2 [facility] Comment on above: Performed By: #### C BC ####[facility] [address] [address]Dr. Milena Rosa MCV (RBC) [Entitic vol] 92.2 fL Normal 81.0-99.0 [facility] Comment on above: Performed By: #### C BC ####[facility] [address] [place], [place] [address]Dr. Milena Rosa MONO # 0.6 103/ul Normal 0.3-0.8 [facility] Comment on above: Performed By: #### C BC ####[facility] [address] [place], [place] [address]Dr. Milena Rosa Monocytes/100 WBC (Bld) 8.9 % Normal 1.7-12.0 [facility] Comment on above: Performed By: #### C BC ####[facility] [address] [place], [place] [address]Dr. Milena Rosa NEUT # 3.5 103/ul Normal 1.4-6.5 [facility] Comment on above: Performed By: #### C BC ####[facility] [address] [place], [place] [address]Dr. Milena Rosa Neutrophils/100 WBC (Bld) 55.2 % Normal 43.0-75.0 [facility] Comment on above: Performed By: #### C BC ####[facility] [address] [place], [place] [address]Dr. Milena Rosa Platelet mean volume (Bld) [Entitic vol] 11.6 fL Normal 9.5-13.5 [facility] Comment on above: Performed By: #### C BC ####[facility] [address] [place], [place] [address]Dr. Milena Rosa PLT 217 103/ul Normal 150-450 [facility] Comment on above: Performed By: #### C BC ####[facility] [address] [place], [place] [address]Bb. Milena Rosa RBC 4.08 106/ul Critically low 4.20-5.40 [facility] Comment on above: Performed By: #### C BC ####[facility] [address] [place], [place] [address]Rw. Milena Rosa WBC 6.3 103/ul Normal 4.0-11.0 [facility] Comment on above: Performed By: #### C BC ####[facility] [address] [place], [place] [address]Vt. Milena Rosa ECHOCARDIO M/2D COMPLETEon 1 ECHOCARDIO M/2D COMPLETE Patient: GIOVANNA RICHARDSON Exam Date: 02/27/2022 : 1940 Gender:F Ordering : DR OVI CROOKS D.O. Admission #: [id number] Family : Order #: [id number] CLICK HERE TO VIEW EXAM ECHOCARDIOGRAM REPORT [...] M.D. on 03/01/2022 at 11:53 Normal [facility] PROF CHEM 8 (BAS METB)on Anion gap [Moles/Vol] 6.1 mmol/L Normal [facility] Comment on above: Performed By: #### B MP, TSH #### [facility] [address] [address] [address] Milena Rosa Calcium [Mass/Vol] 9.0 mg/dL Normal 8.5-10.1 [facility] Comment on above: Performed By: #### B MP, TSH #### [facility] [address] [address] [address] Milena Rosa Chloride [Moles/Vol] 103 mmol/L Normal 98-107 [facility] Comment on above: Performed By: #### B MP, TSH #### [facility] [address] [address] [address] Milena Rosa CO2 [Moles/Vol] 34.4 mmol/L Critically high 21.0-32.0 [facility] Comment on above: Performed By: #### B MP, TSH #### [facility] [address] [address] [address] Milena Rosa Creatinine [Mass/Vol] 1.21 mg/dL Critically high 0.55-1.02 [facility] Comment on above: Performed By: #### B MP, TSH #### [facility] [address] [address] [address] Milena Rosa EGFR-AF PORTUGUESE 52 mL/min/1.73m2 Critically low >=60 [facility] Comment on above: Performed By: #### B MP, TSH #### [facility] [address] [address] [address] Milena Rosa EGFR-NON AF PORTUGUESE 43 mL/min/1.73m2 Critically low >=60 [facility] Comment on above: Performed By: #### B MP, TSH #### [facility] [address] [address] [address] Milena Rosa Glucose [Mass/Vol] 101 mg/dL Normal 74-106 [facility] Comment on above: Performed By: #### B MP, TSH #### [facility] [address] [address] [address] Milena Rosa Potassium [Moles/Vol] 3.5 mmol/L Normal 3.5-5.1 [facility] Comment on above: Performed By: #### B MP, TSH #### [facility] [address] [place] [address] Dr. Milena Rosa Sodium [Moles/Vol] 140 mmol/L Normal 136-145 [facility] Comment on above: Performed By: #### B MP, TSH #### [facility] [address] [place] [address] Dr. Milena Rosa Urea nitrogen [Mass/Vol] 20.0 mg/dL Critically high 7.0-18.0 [facility] Comment on above: Performed By: #### B TERESA, TSH #### [facility] [address] [place] [address] Dr. Milena Rosa Urea nitrogen/Creatinine [Mass ratio] 16.5 mg/mg Normal [facility] Comment on above: Performed By: #### B TERESA, TSH #### [facility] [address] [place] [address] Dr. Mil[facility] TSH 1.640 uIU/mL Normal 0.358-3.740 [facility] Comment on above: Performed By: #### B TERESA, TSH #### [facility] [address] [place] [address] Dr. Milena Rosa XR CHEST 2 Von [...] WHITNEY FOURNIER Date: 2022-02-27 13:49 Normal [facility] MRI LSPINE WO CONon 01-10-20 MRI LSPINE WO CON EXAMINATION: MRI LSZOEY WO CON HISTORY: Lumbar spondylosis ; chronic [...] by: WILLIAM BERMEO Date: 2022-01-09 16:20 Normal [facility] XR hand BI 3Von 12-21-2021 XR hand BI 3V [facility] [facility] [address] [place] [address] XRay Report Signed Patient: Giovanna Richardson MR#: [id number] : 1940 Acct:[id number] Age/Sex: 81 / F ADM Date: 12/21/21 Loc: [facility] [place] [place] Room: Type: [facility] Attending Dr: Brina Morrissey MD Copies to: [...] hand. Impression dictated by: Erasmo Caal Jr., MasonOElia12/21/2021 2:31 PM Dictation Location: [place] [address] Transcribed By: [facility] 12/21/21 1431 Dictated By: Erasmo Caal Jr, DO 12/21/21 1427 Signed By: 12/21/21 1431 Normal [facility] CBC AUTO DIFFon 09-14-2021 BASO # 0.0 103/ul Normal 0.0-0.1 [facility] Comment on above: Performed By: #### C BC #### [facility] [address] [address] [address] Milena Rosa Basophils/100 WBC (Bld) 0.2 % Normal 0.2-2.0 [facility] Comment on above: Performed By: #### C BC #### [facility] [address] [place] [address] Dr. Milena Rosa EO # 0.1 103/ul Normal 0.0-0.7 [facility] Comment on above: Performed By: #### C BC #### [facility] [address] [place] [address] Dr. Milena Rosa Eosinophils/100 WBC (Bld) 2.8 % Normal 0.9-7.0 [facility] Comment on above: Performed By: #### C BC #### [facility] [address] [place] [address] Dr. Milena Rosa Erythrocyte distribution width (RBC) [Ratio] 13.4 % Normal 11.0-15.0 [facility] Comment on above: Performed By: #### C BC #### [facility] [address] [place] [address] Dr. Milena Rosa Hematocrit (Bld) [Volume fraction] 38.2 % Normal 36.0-48.0 [facility] Comment on above: Performed By: #### C BC #### [facility] [address] [place] [address] Dr. Milena Rosa Hemoglobin (Bld) [Mass/Vol] 12.5 g/dL Normal 12.0-16.0 [facility] Comment on above: Performed By: #### C BC #### [facility] [address] [place] [address] Dr. Milena Rosa IG # 0.02 10e3/ul Normal 0.00-0.03 [facility] Comment on above: Performed By: #### C BC #### [facility] [address] [place] [address] Dr. Milena Rosa IG % 0.4 % Normal 0.0-0.5 [facility] Comment on above: Performed By: #### C BC #### [facility] [address] [place] [address] Dr. Milena Rosa LYMPH # 2.1 103/ul Normal 1.2-3.8 [facility] Comment on above: Performed By: #### C BC #### [facility] [address] [place] [address] Dr. Milena Rosa Lymphocytes/100 WBC (Bld) 40.5 % Normal 20.5-60.0 [facility] Comment on above: Performed By: #### C BC #### [facility] [address] [place] [address] Dr. Milena Rosa MANUAL DIFF REQ NO Normal [facility] Comment on above: Performed By: #### C BC #### [facility] [address] [place] [address] Dr. Milena Rosa MCH (RBC) [Entitic mass] 29.7 pg Normal 26.7-34.0 [facility] Comment on above: Performed By: #### C BC #### [facility] [address] [place] [address] Dr. Milena Rosa MCHC (RBC) [Mass/Vol] 32.7 g/dL Normal 29.9-35.2 [facility] Comment on above: Performed By: #### C BC #### [facility] [address] [place] [address] Dr. Milena Rosa MCV (RBC) [Entitic vol] 90.7 fL Normal 81.0-99.0 [facility] Comment on above: Performed By: #### C BC #### [facility] [address] [place] [address] Dr. Milena Rosa MONO # 0.6 103/ul Normal 0.3-0.8 [facility] Comment on above: Performed By: #### C BC #### [facility] [address] [place] [address] Dr. Milena Rosa Monocytes/100 WBC (Bld) 12.0 % Normal 1.7-12.0 [facility] Comment on above: Performed By: #### C BC #### [facility] [address] [place] [address] Dr. Milena Rosa NEUT # 2.3 103/ul Normal 1.4-6.5 [facility] Comment on above: Performed By: #### C BC #### [facility] [address] [address] [address] Milena Rosa Neutrophils/100 WBC (Bld) 44.1 % Normal 43.0-75.0 [facility] Comment on above: Performed By: #### C BC #### [facility] [address] [address] [address] Milena Rosa Platelet mean volume (Bld) [Entitic vol] 11.7 fL Normal 9.5-13.5 [facility] Comment on above: Performed By: #### C BC #### [facility] [address] [address] [address] Milena Rosa PLT 206 103/ul Normal 150-450 [facility] Comment on above: Performed By: #### C BC #### [facility] [address] [address] [address] Milena Rosa RBC 4.21 106/ul Normal 4.20-5.40 [facility] Comment on above: Performed By: #### C BC #### [facility] [address] [address] [address] Milena Rosa WBC 5.1 103/ul Normal 4.0-11.0 [facility] Comment on above: Performed By: #### C BC #### [facility] [address] [place] [address] Dr. Milena Rosa MG MAMM SCREEN 3D SHERICE CADon 09-14-2021 MG MAMM SCREEN 3D SHERICE CAD Patient: GIOVANNA RICHARDSON Exam Date: 09/14/2021 : 1940 Gender:F Ordering : DR OVI CROOKS D.O. Admission #: [id number] Family : Order #: [id number] CLICK HERE TO VIEW EXAM RADIOLOGY REPORT [...] Treatments None Family Cancers None LOCATION: [facility] BREAST COMPOSITION: Scattered areas fibroglandular [...] on 09/14/2021 at 10:42 Normal [facility] PROF CHEM 8 (BAS METB)on Anion gap [Moles/Vol] 10.5 mmol/L Normal [facility] Comment on above: Performed By: #### B MP #### [facility] [address] [address] [address] Milena Rosa Calcium [Mass/Vol] 9.5 mg/dL Normal 8.5-10.1 [facility] Comment on above: Performed By: #### B MP #### [facility] [address] [address] [address] Milena Rosa Chloride [Moles/Vol] 101 mmol/L Normal 98-107 [facility] Comment on above: Performed By: #### B MP #### [facility] [address] [address] [address] Milena Rosa CO2 [Moles/Vol] 31.1 mmol/L Normal 21.0-32.0 [facility] Comment on above: Performed By: #### B MP #### [facility] [address] [address] [address] Milena Rosa Creatinine [Mass/Vol] 1.01 mg/dL Normal 0.55-1.02 [facility] Comment on above: Performed By: #### B MP #### [facility] [address] [address] [address] Milena Rosa EGFR-AF PORTUGUESE >60 Normal >=60 [facility] Comment on above: Performed By: #### B MP #### [facility] [address] [address] [address] Milena Rosa EGFR-NON AF PORTUGUESE 53 mL/min/1.73m2 Critically low >=60 [facility] Comment on above: Performed By: #### B MP #### [facility] [address] [address] [address] Milena Rosa Glucose [Mass/Vol] 96 mg/dL Normal 74-106 [facility] Comment on above: Performed By: #### B MP #### [facility] [address] [address] [address] Milena Rosa Potassium [Moles/Vol] 3.6 mmol/L Normal 3.5-5.1 [facility] Comment on above: Performed By: #### B MP #### [facility] [address] [address] [address] Milena Rosa Sodium [Moles/Vol] 139 mmol/L Normal 136-145 [facility] Comment on above: Performed By: #### B MP #### [facility] [address] [address] [address] Milena Rosa Urea nitrogen [Mass/Vol] 20.0 mg/dL Critically high 7.0-18.0 [facility] Comment on above: Performed By: #### B MP #### [facility] [address] [address] [address] Milena Rosa Urea nitrogen/Creatinine [Mass ratio] 19.8 mg/mg Normal [facility] Comment on above: Performed By: #### B MP #### [facility] [address] [address] [address] Milena Rosa Coding Summary.on 12-26-2017 Coding Summary. CODING DATE: 12/26/2017 FINAL [facility] DSC STATUS: Home (Routine DC) PAYOR: Medicare APC DESCRIPTION [address] [facility] Procedures ADMIT DX: REASON FOR VISIT DX: H26.492 Other secondary cataract, left eye FINAL DX: PRINCIPAL: H26.492 Other secondary cataract, left eye SECONDARY: PYMT PROC APC STAT DESCRIPTION DOCTOR NAME DATE 81161 2936 T Discission of secondary Quinn Armendariz DO [...] Eddy Revised Date Saved: 12/26/2017 11:03 am [facility] Coding Summary.on 12-19-2017 Coding Summary. 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 [...] Shilpa Perez Date Saved: 12/19/2017 09:21 am [facility] Vital Signs Date Time Vital Sign Value Performing Clinician Facility 08-25-2024 09:56-0400 Body height 151.13 cm [facility] 08-25-2024 09:56-0400 Body mass index (BMI) [Ratio] 30.7 kg/m2 [facility] 08-25-2024 09:56-0400 Body weight 70.02 kg [facility] 08-25-2024 09:56-0400 Diastolic blood pressure 74 mm[Hg] [facility] 08-25-2024 09:56-0400 Heart rate 64 /min [facility] 08-25-2024 09:56-0400 Respiratory rate 12 /min [facility] 08-25-2024 09:56-0400 SaO2% (BldA) [Mass fraction] 97 % [facility] 08-25-2024 09:56-0400 Systolic blood pressure 124 mm[Hg] [facility] 04-14-2024 14:22-0500 Body height 149.9 cm Brigitte Gillmor [employer] Work Phone: [facility] 04-14-2024 14:22-0500 Body mass index (BMI) [Ratio] 31.71 kg/m2 Brigitte Zoniamor [employer] Work Phone: [facility] 04-14-2024 14:22-0500 Body weight 71.22 kg Brigitte Zoniamor [employer] Work Phone: [facility] 04-14-2024 14:22-0500 Diastolic blood pressure 52 mm[Hg] Brigitte Zoniamor [employer] Work Phone: [facility] 04-14-2024 14:22-0500 Heart rate 61 /min Brigitte Zoniamor [employer] Work Phone: [facility] 04-14-2024 14:22-0500 SaO2% (BldA) [Mass fraction] 97 % Brigitte Zoniamor [employer] Work Phone: [facility] 04-14-2024 14:22-0500 Systolic blood pressure 93 mm[Hg] Brigitte Zoniamor [employer] Work Phone: [facility] 03-17-2024 10:07-0500 Body height 151.13 cm [facility] 03-17-2024 10:07-0500 Body mass index (BMI) [Ratio] 30.5 kg/m2 [facility] 03-17-2024 10:07-0500 Body weight 69.85 kg [facility] 03-17-2024 10:07-0500 Diastolic blood pressure 72 mm[Hg] [facility] 03-17-2024 10:07-0500 Heart rate 61 /min [facility] 03-17-2024 10:07-0500 SaO2% (BldA) [Mass fraction] 97 % [facility] 03-17-2024 10:07-0500 Systolic blood pressure 120 mm[Hg] [facility] 02-25-2024 10:08-0400 Body height 151.13 cm [facility] 02-25-2024 10:08-0400 Body mass index (BMI) [Ratio] 30.4 kg/m2 [facility] 02-25-2024 10:08-0400 Body weight 69.39 kg [facility] 02-25-2024 10:08-0400 Diastolic blood pressure 70 mm[Hg] [facility] 02-25-2024 10:08-0400 Heart rate 61 /min [facility] 02-25-2024 10:08-0400 Respiratory rate 12 /min [facility] 02-25-2024 10:08-0400 Systolic blood pressure 126 mm[Hg] [facility] 07-20-2023 09:05-0400 Body height 151.13 cm [facility] 07-20-2023 09:05-0400 Body mass index (BMI) [Ratio] 29.8 kg/m2 [facility] 07-20-2023 09:05-0400 Body weight 68.2 kg [facility] 07-20-2023 09:05-0400 Diastolic blood pressure 71 mm[Hg] [facility] 07-20-2023 09:05-0400 Heart rate 62 /min [facility] 07-20-2023 09:05-0400 Respiratory rate 12 /min [facility] 07-20-2023 09:05-0400 Systolic blood pressure 112 mm[Hg] [facility] 02-20-2023 16:00-0400 Body height Ovi Ball Other [employer] Other 02-20-2023 16:00-0400 Body mass index (BMI) [Ratio] 30.44 kg/m2 Ovi Ball Other [employer] Other 02-20-2023 16:00-0400 Body weight 69.54 kg Ovi Ball Other [employer] Other 02-20-2023 16:00-0400 Diastolic blood pressure 78 mm[Hg] Ovi Ball Other [employer] Other 02-20-2023 16:00-0400 Respiratory rate 12 /min Ovi Ball Other [employer] Other 02-20-2023 16:00-0400 Systolic blood pressure 144 mm[Hg] Ovi Ball Other [employer] Other 07-17-2022 16:30-0400 Body height Voi Ball Other [employer] Other 07-17-2022 16:30-0400 Body mass index (BMI) [Ratio] 31.33 kg/m2 Ovi Ball Other [employer] Other 07-17-2022 16:30-0400 Body weight 71.58 kg Ovi Ball Other [employer] Other 07-17-2022 16:30-0400 Diastolic blood pressure 75 mm[Hg] Ovi Ball Other [employer] Other 07-17-2022 16:30-0400 Respiratory rate 12 /min Ovi Ball Other [employer] Other 07-17-2022 16:30-0400 Systolic blood pressure 122 mm[Hg] Ovi Ball Other [employer] Other 12-21-2021 11:00-0400 Body height Brina Hawkhernan Other [employer] Other Encounters Encounter Date Encounter Type Care Provider Facility Start: 09-08-2024 End: 09-08-2024 ambulatory Isaac Guy MD Facility: [facility] Start: 09-02-2024 End: 09-02-2024 ambulatory [facility] Work Phone: Start: 09-02-2024 End: 09-02-2024 Patient encounter procedure [facility] Work Phone: Start: 08-25-2024 End: 08-25-2024 ambulatory [facility] Work Phone: Start: 08-25-2024 End: 08-25-2024 Patient encounter procedure [facility] Work Phone: Start: 05-06-2024 End: 05-06-2024 ambulatory [facility] Work Phone: Start: 05-06-2024 End: 05-06-2024 Patient encounter procedure [facility] Work Phone: Start: 04-14-2024 End: 04-14-2024 Office outpatient visit 25 minutes Brigitte Yang [employer] Work Phone: [facility] Comment on above: Obstructive sleep ap ravi syndrome (Primary Dx); Cerebral infarction, left hemisphere (CMS/HCC); Hypoxia; Sleep deprivation Start: 04-14-2024 End: 04-14-2024 ambulatory BRIGITTE YANG Not Available Start: 04-14-2024 End: 04-14-2024 Bamboo flowsheet Brigitte Yang F[employer]ER Work Phone: [facility] Start: 04-14-2024 End: 04-14-2024 Bamboo flowsheet Brigitte Martinezr [employer] Work Phone: [facility] Start: 03-17-2024 End: 03-17-2024 ambulatory [facility] Work Phone: Start: 03-17-2024 End: 03-17-2024 Patient encounter procedure [facility] Work Phone: Start: 03-10-2024 Non-patient / Non-visit [facility] Work Phone: Start: 03-09-2024 Non-patient / Non-visit [facility] Work Phone: Start: 03-08-2024 Non-patient / Non-visit [facility] Work Phone: Start: 02-27-2024 Non-patient / Non-visit [facility] Work Phone: Start: 02-25-2024 End: 02-25-2024 ambulatory [facility] Work Phone: Start: 02-25-2024 End: 02-25-2024 Patient encounter procedure [facility] Work Phone: Start: 02-15-2024 End: 02-15-2024 Refill Torres Rosa MD Work Phone: [facility] Comment on above: LPRD (laryngopharyng eal reflux disease) Start: 01-17-2024 End: 01-17-2024 Refill Alejandro Monteiro MA [facility] [address] [facility] Comment on above: Cerebral infarction, left hemisphere (CMS/HCC) (Primary Dx) Start: 01-01-2024 End: 01-01-2024 ambulatory [facility] Work Phone: Start: 01-01-2024 End: 01-01-2024 Patient encounter procedure [facility] Work Phone: Start: 11-07-2023 Non-patient / Non-visit [facility] Work Phone: Start: 10-08-2023 End: 10-08-2023 ambulatory BRIGITTE YANG Not Available Start: 09-26-2023 End: 09-26-2023 ambulatory TORRES ROSA Not Available Start: 08-15-2023 End: 08-15-2023 ambulatory TORRES ROSA Not Available Start: 07-20-2023 End: 07-20-2023 ambulatory [facility] Work Phone: Start: 07-20-2023 End: 07-20-2023 Patient encounter procedure [facility] Work Phone: Start: 07-04-2023 End: 07-04-2023 Patient encounter procedure [facility] Work Phone: Start: 04-17-2023 End: 04-17-2023 ambulatory Ovi Ball Other [employer] Other Start: 04-17-2023 Telephone encounter Ovi Ball [facility] Start: 03-13-2023 End: 03-13-2023 ambulatory Ovi Ball Other [employer] Other Start: 03-13-2023 Telephone encounter Ovi Ball [facility] Start: 03-07-2023 End: 03-07-2023 ambulatory Ovi Ball Other [employer] Other Start: 03-07-2023 Telephone encounter Ovi Ball [facility] Start: 03-01-2023 End: 03-01-2023 ambulatory Ovi Ball Other [employer] Other Start: 03-01-2023 Telephone encounter Ovi Ball [facility] Start: 02-28-2023 End: 02-28-2023 ambulatory Ovi Ball Other [employer] Other Start: 02-28-2023 Telephone encounter Ovi Ball [facility] Start: 02-22-2023 End: 02-22-2023 ambulatory Ovi Ball Other [employer] Other Start: 02-22-2023 Telephone encounter Ovi Ball [facility] Start: 02-21-2023 End: 02-21-2023 ambulatory Ovi Ball Other [employer] Other Start: 02-21-2023 Telephone encounter Ovi IBARRA [facility] Start: 02-20-2023 End: 02-20-2023 ambulatory Ovi Crooks Other [employer] Other Start: 02-20-2023 Office outpatient vi sit 25 minutes Ovi Crooks [facility] Start: 01-23-2023 End: 01-23-2023 ambulatory Ovi Crooks Other [employer] Other Start: 01-23-2023 Telephone encounter Ovi Bui [facility] Start: 01-16-2023 End: 01-16-2023 ambulatory Brina Morrissey Other [employer] Other Start: 01-16-2023 Office outpatient vi sit 15 minutes Brina Morrissey [facility] Start: 01-05-2023 End: 01-05-2023 ambulatory [facility] Start: 11-23-2022 ambulatory DAVID KAPOOR . Facili ty:[facility] Start: 09-01-2022 End: 09-02-2022 ambulatory DAVID KAPOOR . Facility:[facility] Start: 07-31-2022 End: 07-31-2022 ambulatory Brina Morrissey Other [employer] Other Start: 07-31-2022 Telephone encounter Brina Wright [facility] Start: 07-26-2022 End: 07-27-[address] OVI CROOKS Facility:[facility] Start: 07-26-2022 End: 07-26-2022 ambulatory [facility] Start: 07-25-2022 End: 07-25-2022 ambulatory NARENDRANATH LAKSHMIPATHY . Facility:[facility] Start: 07-20-2022 End: 07-21-2022 ambulatory NARENDRANATH LAKSHMIPATHY . Facility:[facility] Start: 07-19-2022 End: 07-20-[address] OVI CROOKS [facility] [employer] Other Start: 07-19-2022 Telephone encounter Ovi Crooks [facility] Start: 07-17-2022 End: 07-17-2022 ambulatory Ovi Crooks Other [facility] [employer] Other Start: 07-17-2022 Patient encounter procedure Ovi Crooks [facility] Start: 06-20-2022 End: 06-20-[address] ELIZABETH JESSICA . Facility:[facility] Start: 06-07-2022 Telephone encounter Brina Wright [facility] Start: 06-07-2022 End: 06-07-2022 [facility] [employer] [facility] Start: 05-20-2022 Encounter for [facility]procedural [facility] Start: 05-15-2022 End: 05-16-2022 [facility] Start: 05-15-2022 End: 05-16-2022 Encounter for preprocedural laboratory examination [facility] Start: 05-09-[address] ELIZABETH JESSICA [...] Facility:[facility] Start: 02-23-2022 End: 02-24-2022 ambulatory MARY Rodrigez Facility:[facility] Start: 02-07-2022 End: 02-07-[address] ELIZABETH JESSICA . Facility:[facility] Start: 01-18-2022 End: 01-18-2022 ambulatory Brina Morrissey Other [employer] Other Start: 01-18-2022 Office outpatient vi sit 15 minutes Brina Morrissey [facility] Start: 01-09-2022 End: 01-10-2022 ambulatory MARY CRISTOBAL . Facility:[facility] Start: 12-29-2021 End: 12-30-2021 ambulatory MARY CRISTOBAL . Facility:[facility] Start: 12-21-2021 End: 12-21-2021 ambulatory Brina Morrissey Other [employer] Other Start: 12-21-2021 Office outpatient ne w 30 minutes Brina Morrissey [facility] Start: 12-21-2021 End: 12-21-2021 Patient encounter procedure MD Brina Morrissey Work Phone: [facility] Start: 12-13-2021 End: 12-13-[address] ELIZABETH JESSICA . Facility: Start: 12-01-2021 End: 12-02-2021 ambulatory MARY CRISTOBAL . Facility: Start: 09-14-2021 End: 09-15-[address] OVI CROOKS Facility: Start: 08-17-2021 Adult health examination Brina Morrissey Other [employer] Other Start: 12-25-2017 End: 12-25-2017 Patient encounter Quinn Armendariz Facility:[facility] Start: 12-18-2017 End: 12-18-2017 Patient encounter Quinn Armendariz Facility:[facility] Procedures Date Procedure [...] Morrissey Other Start: 08-05-2015 Screening mammography C rachel Morrissey Other Cough 786.2 Brina Morrissey Depression screening Brina Morrissey Other Screening for malign ant neoplasm of breast Brina Morrissey Other Plan of Treatment Date Care Activity Detail Author Start: 09-08-2024 End: 09-08-2024 Patient encounter procedure 09/08/2024 11:00 AM EDT [facility] [address] [place] [address] Brigitte Yang NP [address] [place] [place] [facility] Start: 04-14-2024 End: 04-14-2024 [facility] Comment on above: Arrived Start: 12-30-2023 Influenza vaccination Influenz a Vaccine (#1) [facility] metabo lic 1999 panel - Serum or Plasma [facility] Comprehensive metabo lic 1999 panel - Serum or Plasma [facility] Comprehensive metabo lic 1999 panel - Serum or Plasma [facility] CT Chest [facility] - bilatera l [facility] Immunizations Immunization Date Immunization Notes Care Provider Fa cility 02-25-2024 influenza, high dose seasonal, preservative-free [facility] 02-17-2022 influenza, high dose seasonal, preservative-free Ovi Crooks Other [employer] Other 02-17-2022 influenza virus vaccine, split virus (incl. purified surface antigen) Brina Morrissey Other [employer] Other 02-17-2022 influenza virus vaccine, unspecified formulation [facility] 04-04-2021 COVID-19 Vaccine Pfi zer - Documentation Purposes Only Ovi Crooks Other [facility] 01-17-2021 influenza virus vaccine, split virus (incl. purified surface antigen) Brina Morrissey Other [facility] [employer] Other 01-17-2021 influenza virus vaccine, unspecified formulation [facility] 06-17-2020 COVID-19 Vaccine Pfi zer - Documentation Purposes Only Ovi Crooks Other [facility] 05-27-2020 COVID-19 Vaccine Moderna - Documentation Purposes Only Brina Morrissey Other [facility] 05-27-2020 COVID-19 Vaccine Pfi zer - Documentation Purposes Only Ovi Crooks Other [facility] 03-10-2020 influenza virus vaccine, split virus (incl. purified surface antigen) Brina Morrissey Other [facility] [employer] Other 03-10-2020 influenza virus vaccine, unspecified formulation [facility] 03-07-2019 influenza virus vaccine, split virus (incl. purified surface antigen) Brina Morrissey Other [facility] [employer] Other 03-07-2019 influenza virus vaccine, unspecified formulation [facility] 03-27-2018 influenza virus vaccine, split virus (incl. purified surface antigen) Brina Morrissey Other [facility] [employer] Other 03-27-2018 influenza virus vaccine, unspecified formulation [facility] 03-16-2017 pneumococcal Conjuga te, unspecified formulation; Translations: [Need for prophylactic vaccination against Streptococcus pneumoniae (pneumococcus)] Brina Morrissey Other [facility] [employer] Other 03-16-2017 pneumococcal polysaccharide vaccine, 23 valent Ovi Crooks Other [facility] 11-17-2016 pneumococcal conjuga te vaccine, 13 valent Ovi Crooks Other [facility] 02-09-2016 influenza virus vaccine, split virus (incl. purified surface antigen) Brina Morrissey Other [employer] Other 02-09-2016 influenza virus vaccine, unspecified formulation [facility] Payers Date Payer Category Payer Medicare [id number] 2016 [facility] Memb er Subscriber Plan / Payer (Effective 2016-Present) Name: Giovanna Richardson Relation to Subscriber: Self Name: Giovanna Richardson Payer ID: Not on file Group ID: [id number] Type: Not on file Address: [place] [id number] 2016 Unknown [id number] .[id number] 2007 Medicare [id number] 1.13.693.2 .[id number] 1959 Medicare [id number] 1959 Unknown [id number] 1942 Unknown [id number] 2.16.840.1.053954.3.579.2 .593 1942 Unknown [id number] 2.16.840.1.186789.3.579.2 .593 1942 Unknown [id number] 2.16.840.1.493317.3.579.2 .593 1942 Unknown [id number] 2.16.840.1.611186.3.579.2 .593 1942 Unknown [id number] 2.16.840.1.449842.3.579.2 .593 1942 Unknown [id number] 2.16.840.1.621045.3.579.2 .593 1942 Unknown [id number] 2.16.840.1.763078.3.579.2 .593 1942 Unknown [id number] 2.16.840.1.752101.3.579.2 .593 1942 Unknown [id number] 2.16.840.1.671899.3.579.2 .593 1942 Unknown [id number] 2.16.840.1.065863.3.579.2 .593 1942 Unknown [id number] 2.16.840.1.532724.3.579.2 .593 1942 Unknown [id number] 2.16.840.1.880458.3.579.2 .593 1942 Unknown [id number] 2.16.840.1.290116.3.579.2 .593 1942 Unknown [id number] 2.16.840.1.915654.3.579.2 .593 1942 Unknown [id number] 2.16.840.1.863960.3.579.2 .593 1942 Unknown [id number] 2.16.840.1.622348.3.579.2 .593 1942 Unknown [id number] 2.16.840.1.502367.3.579.2 .593 1942 Unknown [id number] 2.16.840.1.877186.3.579.2 .593 1942 Unknown [id number] 2.16.840.1.390595.3.579.2 .593 1942 Unknown [id number] 2.16.840.1.355659.3.579.2 .593 1942 Unknown [id number] 2.16.840.1.514692.3.579.2 .593 1942 Unknown [id number] 2.16.840.1.091198.3.579.2 .593 1942 Unknown [id number] 2.16.840.1.967272.3.579.2 .593 1942 Unknown [id number] 2.16.840.1.368434.3.579.2 .593 1942 Unknown [id number] 2.16.840.1.891480.3.579.2 .1259 1942 Unknown [id number] 2.16.840.1.591707.3.579.2 .1259 1942 Unknown [id number] 2.16.840.1.798918.3.579.2 .1259 1942 Unknown [id number] 2.16.840.1.502933.3.579.2 .1259 1942 Unknown [id number] 2.16.840.1.905351.3.579.2 .196 Social History Date Type Detail Facility Tobacco smoking stat us MAIS Unknown if ever smoked [facility] Work Phone: Start: 1940 Sex Assigned At Female F [facility] Start: 10-08-2023 End: 04-14-2024 Sex Assigned At [facility] Other Start: 06-28-2023 End: 06-28-2023 Tobacco smoking status NHIS Never smoked tobacco (finding) [facility] Start: 08-09-2023 Tobacco use and exposure Smokeless [...] at Not on file [facility] Start: 03-17-2024 End: 09-02-2024 Sex Female (finding) [facility] Clinical Notes 12-01-2021 to 08-25-2024 Note Date [...] syndrome, right acute September 02, 2024 10:11am [facility] Work Phone: [phone]) 206-309210-28-2024 Evaluation note* Diagnosis Onset Date Resolution Status Admit Date ASHD (arteriosclerotic heart disease) acute February 24 9:54am Cerebral atherosclerosis acute February 25, 2024 9:54am Elevated cholesterol acute 2023 9:54am Lumbar spondylosis acute Janobe r 2023 9:54am Major depressive disorder, recurrent, in full remission acute Jan felecia2023 9:54am Mild persistent asthma witho ut complication [...] syndrome, right acute May 06, 2024 8:46am [facility] Work Phone: 1(495) 418-683309-03-2024 Evaluation note* Diagnosis Onset Date Resolution Status [...] February 25, 2024 9:54am Elevated cholesterol acute 2023 9:54am Lumbar spondylosis acute Octobe r [...] 2024 10:03am Primary hypertension acute 2023 10:03am [facility] Work Phone: 1(145) 302-528001-19-2024 Marta received fax from [facility] requesting patient hold her Plavix x7 prior [...] I faxed back the request to [facility] and asked them to contact Dr. Arriola for clearance.[facility]12-19-2023 Evaluation note* Encounter Date Diagnosis Assessment Notes Treatment Notes Treatment Clinical Notes Mar, Acute cerebral infarction (ICD-10 - I63.9) Mar, Cerebral atherosclerosis (ICD-10 - I67.2) [employer] Other 11-01-2023 Evaluation note* Encounter Date Diagnosis Assessment Notes Treatment Notes Treatment Clinical Notes Feb, Acute cerebral infarction (ICD-10 - I63.9) [employer] Other 11-01-2023 Evaluation note* Encounter Date Diagnosis Assessment Notes Treatment Notes Treatment Clinical Notes Feb, Bruit (ICD-10 - R09.89) [employer] Other 10-25-2023 Evaluation note* Encounter Date Diagnosis Assessment Notes Treatment Notes Treatment Clinical Notes Jan, Transient left leg weakness (ICD-10 - R29.898) Jan, Jerking movements of extremities (ICD-10 - R25.2) [employer] Other 10-24-2023 Evaluation note* Encounter Date [...] the risk for cerebrovascular and cardiovascular disease. [employer] Other 09-19-2023 Evaluation note* Encounter Date [...] Pain in left hand (ICD-10 - M79.642) [employer] Other 09-08-2023 NoteCardiology Clinic Note Chief [...] all muscle groups, (more content not included)...[facility]09-08-2023 NotePatient here for 6 mo follow up CAD, hypertension, and hyperlipidemia. Has not been taking aspirin because she doesn't like taking a lot of pills. Says she's only had chest pain once recently. Sees Dr. Smith and had CT chest in September. [facility]04-03-2023 Evaluation note* Encounter Date Diagnosis Assessment Notes Treatment Notes Treatment Clinical Notes Jul, Pulmonary nodule (ICD-10 - R91.1) RUL 10mm nodule - 06/3022Jul, Cough (ICD9-CM - 786.2) Jul, Mild persistent asthma without complication (ICD-10 - J45.30) [employer] Other 03-29-2023 NoteCardiology Clinic Note Chief [...] function in all (more content not included)...[facility]03-23-2023 NoteCONSULTATION CONSULTATION DATE: 07/20/2022 TO: Dr. [...] be helping some of her pain symptoms.[facility] [id number] Evaluation note* Encounter Date Diagnosis Assessment Notes Treatment Notes Treatment Clinical Notes Jun, Pulmonary nodule (ICD-10 - R91.1) RUL 10mm nodule - 06/3022 [employer] Other 03-20-2023 Evaluation note* Encounter Date [...] mammogram for breast cancer (ICD-10 - Z12.31) [employer] Other 02-08-2023 Evaluation note* Encounter Date Diagnosis Assessment Notes Treatment Notes Treatment Clinical Notes May, ASHD (arterioscleroti c heart disease) (ICD-10 - I25.10) LHC: moderate, nonobstructive coronary disease - 05/2022 [employer] Other 02-08-2023 NotePatient here for follow [...] All other systems reviewed and are negative.[facility] 06-07-2022 NoteCardiology Clinic Note Chief Complaint: [...] Value Ventricular Rate 53 Atrial Rate 53 AK Interval 186 QRS DURATION 142 QT Interval 472 QTC CALCULATION(BAZETT) 442 P [place] 29 R-Colebrook -35 T Wave [place] 59 Impression Sinus bradycardia Left axis deviation Left bundle branch block Abnormal ECG When compared with ECG of 30-NOV-2008 12:01, Premature atrial comple (more content not included)...[facility]10-27-2022 NoteCONSULTATION CONSULTATION DATE: 02/23/2022 This is [...] will be followed in the clinic thereafter.[facility] [id number] Evaluation note* Encounter Date Diagnosis Assessment Notes [...] in both duran ds (ICD-10 - R20.0) [employer] Other 09-01-2022 NoteCONSULTATION CONSULTATION DATE: 12/29/2021 [...] patient is in agreement to move forward.[facility] [id number] Evaluation note* Encounter Date Diagnosis Assessment Notes [...] in both duran ds (ICD-10 - R20.0) [employer] Other 08-04-2022 NoteCONSULTATION CONSULTATION DATE: 12/01/2021 [...] the car. Her last MRI was in 2016 which conformed multilevel degenerative disc. Activities that [...] followed up in the office post procedure.[facility] assessment information [facility] Work Phone: Evaluation noteNo InformationNort [employer] Other Evaluation note* Diagnosis Onset Date Resolution [...] noneactive Screening mammogram for breast cancer noneactive [facility] Work Phone: Evaluation note* Diagnosis Onset Date Resolution Status Arthritis of carpometacarpal (CMC) joint of left thumb acute Arthritis of carpometacarpal (CMC) joint of right thum b acute Carpal tunnel syndrome, left acute Carpal tunnel syndrome, right acute [facility] Work Phone: Evaluation note* Diagnosis LPRD (laryngopharyngeal reflux disease) Acute laryngitis, without mention of obstruction documented in this encounter [facility] HealthcareEvaluation note* Diagnosis Onset Date Resolution Status [...] sleep apnea acut e Primary hypertension acute [facility] Work Phone: Evaluation note* Diagnosis Obstructive sleep apnea syndrome- Primary Obstructive sleep apnea (adult) (pediatric) Cerebral infarction, left hemisphere (CMS/HCC) Unspecified cerebral artery occlusion with cerebral infarction Hypoxia Hypoxemia Sleep deprivation Problems related to lack of adequate sleep documented in this encounter [facility] HealthcareEvaluation note* Diagnosis Cerebral infarction, left hemisphere (CMS/HCC)- Primary Unspecified cerebral artery occlusion with cerebral infarction [facility] Diagnosis Onset Date Resolution Status [...] Apri l 2024 9:55am Medicare annual wellness vis it, subsequent noneactive August 25, 2024 9:55am Screening mammogram for jay st cancer noneactive August 25, 2024 9:55am [facility] Work Phone: Hisawri general Narrative - Reported* Type Description Date Medical History Esophageal reflux Medical History seasonal allergies Medical History DIVINA Medical History Hypertension Surgical History APPENEDECTOMY Surgical History HYSTERECTOMY Surgical History SINUS Surgical History LEFT HAND Surgical History HEART CATH Surgical History CHOLECYSTECTOMY [employer] Other Hisqblw general Narrative - Reported* Type Description Date Medical History Esophageal reflux Medical History seasonal allergies Medical History DIVINA Medical History Hypertension Medical History ASHD (arteriosclerotic heart dis ease) Surgical History APPENEDECTOMY Surgical History HYSTERECTOMY Surgical History SINUS Surgical History LEFT HAND Surgical History HEART CATH Surgical History CHOLECYSTECTOMY Surgical History cardiac catheterization 06/07/22 [employer] Other Hisejwb general Narrative - Reported* Type Description Date [...] catheterization 06/07/22 Hospitalization History SEE SURGICAL HX [employer] Other Summary Purpose Family History No Family [...] Admit Date ASHD (arteriosclerotic heart disease) Ap ril 2024 9:55am Cerebral atherosclerosis August 25 9:55am [...] for breast cancer Ap ril 2024 9:55am Chief Complaint Admit Date 6 month f/u-HIGH RISK August 25, 2024 9 :55am 3 MONTHS September 02, 2024 10:11a m Reason for Visit Admit Date ASHD (arteriosclerotic heart disease) Ap ril 2024 9:55am Cerebral atherosclerosis August 25 9:55am [...] 02 10:11am Carpal tunnel syndrome, right September 02, 025 10:11am Additional Source Comments INFORMATION SOURCE (unrecogn ized section and content) DATE CREATED AUTHOR 12/29/2017 Jaime Mckeon [facility] DATE CREATED AUTHOR AUTHOR'S ORGANIZ ATION 12/25/2021 [facility] DATE CREATED AUTHOR AUTHOR'S ORGANIZ ATION 09/08/2022 [facility] DATE CREATED AUTHOR AUTHOR'S ORGANIZ ATION 05/19/2023 [facility] DATE CREATED AUTHOR AUTHOR'S ORGANIZ ATION 04/16/2024 [facility] DATE CREATED AUTHOR AUTHOR'S ORGANIZ ATION 09/24/2024 [facility] Care Teams (unrecognized sec tion and content) [...] 2023 Team Status: Inactive Member Role Status Ovi Crooks DO Primary Care Provide r, Attending Provider Active Start: July 20, 2023 End: July 20, 2023 Automation Operator Relationship Specialty Start Date End Date Ovi Crooks MD [address] [place] [id number] PCP - General Internal Medicine 07/10/23 Team Status: Active Member Role Status Ovi Crooks DO Primary Care Provide r, [...] March 17, 2024 End: March 17, 2024 Automation Operator Relationship Specialty Start Date End Date Ovi Crooks MD [address] [place] [address] PCP - General Internal Medicine 07/10/23 Madhavi Arriola DO [address] [place] [address] Referring Physician Neurology 04/14/24 Automation Operator Relationship Specialty Start Date End Date Ovi Crooks MD [address] [place] [address] PCP - General Internal Medicine 07/10/23 Madhavi Arriola DO [address] [place] [address] Referring Physician Neurology 04/14/24 Automation Operator Relationship Specialty [place] [address] [place] [phone] PCP - General Internal Medicine 07/10/23 Team Status: Inactive Member Role Status Dates Ovi Crooks DO Primary Care Provider Active Start: May 06, 2024 End: May 06, 2024 Brina Morrissey MD Attending Provider Active Start: May 06, 2024 End: May 06, 2024 Team Status: Inactive Member Role Status Dates Ovi Coroks DO Primary Care Provide r, Attending Provider [...] BE BASED ON THE PRIMARY CLINICAL RECORDS. [employer] provides no warranty or guarantee of the accuracy or completeness of information in this document.
--- NOTE | 2024-09-26 09:00 | MM_ITS ---
Patient Name: GIOVANNA BAUM MR#: [id number] : 1940 Exam Date: 09/26/2024 Ordering Doctor: DR KENTON MAURICIO D.O. RADIOLOGY REPORT PROCEDURE: MM TOMOSYNTHESIS SCREENING BI COMPARISON: MM TOMOSYNTHESIS SCREENING BI, 07/30/2023. MG MAMM SCREEN 3D SHERICE CAD, 09/14/2021. MG MAMM SCREEN SHERICE W CAD, 07/05/2020. MG MAMM SHERICE SCRN W CAD DIG, 08/12/2015. INDICATIONS: Screening Calculator Name NCI Breast Cancer Risk Assessment Tool 5 Year Breast Cancer Risk 1.40% Lifetime Breast Cancer Risk 2.10% Personal Breast Cancer No Personal Ovarian Cancer No Treatments None Family Cancers None LOCATION: [facility] BREAST COMPOSITION: There are scattered areas of fibroglandular density. FINDINGS: RIGHT BREAST: No significant suspicious finding. Benign-appearing calcifications are present. Benign-appearing lymph nodes are noted along the chest wall appeared LEFT BREAST: No significant suspicious finding. Benign-appearing calcifications are present. Benign-appearing 1 noted along the chest wall. DIAGNOSTIC CATEGORY 2--BENIGN FINDING: RECOMMENDATIONS: ROUTINE MAMMOGRAM AND CLINICAL EVALUATION IN 12 MONTHS. PLEASE NOTE: A NORMAL MAMMOGRAM DOES NOT EXCLUDE THE POSSIBILITY OF BREAST CANCER. A CLINICALLY SUSPICIOUS PALPABLE LUMP SHOULD BE BIOPSIED. Dictated by: Zion Garcia MD on 09/26/2024 at 10:14 Approved by: Zion Garcia MD on 09/26/2024 at 10:18
== END 2024-09-26 08:28 | disposition home or self-care (01) ==
LOC: MAMMO 08:27
PROVIDERS: PCP Internal Medicine; Visit Provider Internal Medicine
DX: Z12.31 Encounter for screening mammogram for malignant neoplasm of breast (principal)
CPT/HCPCS: 77063; 77067

== ENCOUNTER 2024-09-30 08:06 | Outpatient (OUT) | payer MEDICARE, BC, SELFPAY ==
--- OUTSIDE RECORDS SUMMARY | 2023-10-29 06:00 | XMS_ITS ---
Author Organization The [facility] in [place] Address [address] [place] [address] Care Team Providers Care Cutch Cleaner Name Role Phone Ovi Crooks DO Primary Care Provider Rogelio Pearl Unavailable [phone] REASON FOR VISIT F/U -1 YEAR ASTHMA Encounters Encounter Location Date Provider Diagnosis Pulmonary Medicine [place] [address] [place] [address] 10/29/2023 Rogelio Smith Plan Of Treatment Next Appt Details Provider Name:Rogelio Smith, 11/25/2024 10:00:00 AM, [address] [place], [address], Progress Notes * Rupali R[place]ON LDOB:[birth year] (83 yo F)Acc No.[id number]:10/29/2023 UNLOCKED PROGRESS NOTE Follow Up Patient: Rupali ARANGO Evan Provider: Harish Smith DO :1940 A ge:82 Y S ex:Female Date:10/29/2023 Address:[address] [place] [address], [id number] Pcp:Ovi Crooks DO Subjective: * Chief Complaints: * 1 . F/U -1 YEAR ASTHMA. * Medical History: Objective: * Vitals: Assessment: Plan: * Treatment: * * Electronic signature of Key Smith DO on 09/30/2024 at 08:12 AM EDT Sign off status: Pending Visit Status: R /S (Rescheduled) * Provider: Hraish Smith DO Date: 0 10/29/2023 Generated for Roseline foster/Erin/Lorin on: 0 09/30/2024 08:12 AM EDT
--- OUTSIDE RECORDS SUMMARY | 2023-10-31 09:00 | XMS_ITS ---
Author Organization The [facility] in [place] Address [address] [place] [address] Care Team Providers Care Wheel Tuner Name Role Phone Ovi Crooks DO Primary Care Provider Rogelio Pearl Unavailable [phone] REASON FOR VISIT F/U -1 YEAR ASTHMA Encounters Encounter Location Date Provider Diagnosis Pulmonary Medicine [place] [address] [place] [address] 10/31/2023 Rogelio Smith Plan Of Treatment Next Appt Details Provider Name:Rogelio Smith, 11/25/2024 10:00:00 AM, [address] [place], [address], Progress Notes * Rupali R[place] LDOB:[birth year] (83 yo F)Acc No.[id number]:10/31/2023 UNLOCKED PROGRESS NOTE Follow Up Patient: Rupali ARANGO Evan Provider: Harish Smith DO :1940 A ge:82 Y S ex:Female Date:10/31/2023 Address:[address] [place] [address], [id number] Pcp:Ovi Crooks DO Subjective: * Chief Complaints: * 1 . F/U -1 YEAR ASTHMA. * Medical History: Objective: * Vitals: Assessment: Plan: * Treatment: * * Electronic signature of Key Smith DO on 09/30/2024 at 08:11 AM EDT Sign off status: Pending Visit Status: R /S (Rescheduled) * Provider: Harish Smith, Date: 0 10/31/2023 Generated for Roseline foster/Erin/Lorin on: 0 09/30/2024 08:11 AM EDT
--- OUTSIDE RECORDS SUMMARY | 2023-11-20 06:00 | XMS_ITS ---
Author Organization [facility] in [place] Address [address] [place] [address] Care Team Providers Care Tubing Oiler Name Role Phone Ovi Crooks DO Primary Care Provider Rogelio Pearl Unavailable [phone] Allergies Allergen (clinical drug ingredient) Drug/Non Drug Allergy documented on EMR Reaction Allergy Type Onset Date Status Versed (uncoded) nausea and vomiting Allergy Active REASON FOR VISIT F/U -1 YEAR ASTHMA Medications Medication SIG (Take, Route, Frequency, Duration) Notes Start Date End Date Status oxyBUTYnin Chloride ER 15 MG 1 tablet Or ally Once a day Active Isosorbide Mononitrate ER 30 MG 1 tablet in the morning Orally Once a day Active Losartan Potassium 50 MG 1 tablet Orally Once a day Active Metoprolol Succinate 25 MG 1 capsule Ora lly Once a day Active Omeprazole 20 MG 1 capsule 30 minutes before morning meal Orally Once a day Active Symbicort 160-4.5 MCG/ACT 2 puffs Inhalation BID for 90 days Rinse after use Active Escitalopram Oxalate 10 MG 1 tablet Oral ly Once a day Active Gabapentin 100 MG 1 capsule Orally Onc e a day Active Atorvastatin Calcium 40 MG 1 tablet Oral ly Once a day Active hydroCHLOROthiazide 25 MG 1 tablet in th e morning Orally Once a day Active Social History Tobacco Use: Social History Observation Description Date Details (start date - stop date) Never Smoker NA - NA Tobacco Use/Smoking Question Answer Notes Patient is a nonsmoker Tobacco Control (Standard) Question Answer Notes Tobacco use: Nonsmoker Problems Problem Type SNOMED Code ICD Code Onset Dates Problem Status W/U Status Risk Notes Problem Body mass index [BMI] 31.0-31.9, adult (Z68.31) Active confirmed Vital Signs Weight 154.2 lbs 11/20/2023 Height 59 in 11/20/2023 Blood pressure systolic 111 mm Hg 11/20/19 Blood pressure diastolic 71 mm Hg 024 Temperature 96.1 degrees Fahrenheit 11/20/19 Heart Rate 60 /min 11/20/2023 Respiratory Rate 18 /min 11/20/2023 BMI 31.14 kg/m2 11/20/2023 Oximetry 93 % 11/20/2023 Encounters Encounter Location Date Provider Diagnosis Pulmonary Medicine [place] [address] [place] [address] 11/20/2023 Rogelio Smith Mild persistent asth ma, uncomplicated J45.30 ; Multiple pulmonary nodules R91.8 ; [facility] (current) use of 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 Z79.51 ; Obesity, unspecified E66.9 and Body mass index [BMI] 31.0-31.9, adult Z68.31 Assessments Encounter Date Diagnosis (ICD Code) Assessment Notes Treatment Notes Treatment Clinical Notes Section Notes 11/20/2023 Mild persistent asthma, uncomplicated (ICD-10 - J45.30) She continues to have an excellent response to Symbicort. Dyspnea seems to be mainly during activity in heat. Discussed de-escalating use, weaning down # puffs/day. She voiced she would like to try that. She can decrease use. If she end up not requiring it daily, she may use it PRN. If she begins to have symptoms, she may restart it. Additionally, if there is an upcoming heat wave that she knows could exacerbate her breathing, she should start using Symbicort several days ahead of time. F/U 1 year. 11/20/2023 Multiple pulmonary nodules (ICD-10 - R91.8) CT 09/29/2022 compared to 07/19/2022 showed no change in multiple pulmonary nodules, including the largest in the RUL @ 10cm. Fungal labs were negative. She previously stated she did not believe this was cancer and did not want any further F/U. She continues to maintain this stance when addressed today. No further imaging will be ordered regarding this. 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 11/20/2023 Obesity, unspecified (ICD-10 - E66.9) Patient's weight is inducing a restrictive pulmonary physiology. Weight loss indicated: Decrease calories, increase activity. 11/20/2023 Body mass index [BMI] 31.0-31.9, adult (ICD-10 - Z68.31) Plan Of Treatment Medication Medication Name Sig Start Date Stop Date Notes Symbicort 160-4.5 MCG/ACT 2 puffs Inhala tion BID for 90 days Treatment Notes Assessment Notes Mild persistent asthma, uncomplicated She continues to have an excellent response to Symbicort. Dyspnea seems to be mainly during activity in heat. Discussed de-escalating use, weaning down # puffs/day. She voiced she would like to try that. She can decrease use. If she end up not requiring it daily, she may use it PRN. If she begins to have symptoms, she may restart it. Additionally, if there is an upcoming heat wave that she knows could exacerbate her breathing, she should start using Symbicort several days ahead of time. F/U 1 year. Multiple pulmonary nodules CT 09/29/2022 compared to 07/19/2022 showed no change in multiple pulmonary nodules, including the largest in the RUL @ 10cm. Fungal labs were negative. She previously stated she did not believe this was cancer and did not want any further F/U. She continues to maintain this stance when addressed today. No further imaging will be ordered regarding this. 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 Weight loss indicated: Decrease calories, increase activity. Next Appt Details Follow Up: 1 Year, Reason: A sta Provider Name:Rogelio Smith, 11/25/2024 10:00:00 AM, [address] [place], [address], Procedure Notes * Category Sub-Category Detail Notes PFT Data: PFT 09/15/2014:-F EV1/FVC: 78% -FEV1: 98%-FVC: 94%-Bronchodilator response: None-RV: 72%-T%-DLCO: 111%-Flow-volume loop: NormalPFT 03/05/2013:-FEV1/FVC: 76% -FEV1: 92%-FVC: 91%-Bronchodilator response: None-RV: 103%-T%-DLCO: 98%-Flow-volume loop: Normal Progress Notes * Rupali BAUM LDOB:[birth year] (83 yo F)Acc No.[id number]:11/20/2023 Follow Up Patient: Rupali ARANGO Provider: Harish Smith, :1940 A ge:83 Y S ex:Female Date:11/20/2023 Address:[address] [place] [address]. [address], [facility] Pcp:Ovi Crooks, DO Check In:09:55 AM ESTCheck O ut:10:26 AM EST Subjective: * Chief Complaints: * F /U -1 YEAR ASTHMA * HPI: G eneral: 1 YEAR F/U She states she is doing well since last visit. She continues to use Symbicort with benefit, denies any adverse effects. She denies any exacerbations. She is not having to use albuterol. The only issues are during extreme heat waves, and even then, she is getting by with just Symbicort. MA Intake Comments:. Marsha presents for a follow up for Asthma. Patient denies any complaints or concerns with her breathing today. Patient is currently using Symbicort daily with benefit. Patient is a non smoker. Patient is under the care of [facility] Cardiology. * ROS: G eneral/Constitutional: Fever or sweats d enies. C hange of appetite d enies. C hills d enies. W eight Change d enies. H EENT: Dry mouth d enies. S ore throat d enies. O ral Ulcers d enies. P ost Nasal Drip D enies. C ongestion D enies. H oarseness?Denies. C ardiovascular: Tachycardia d enies. C hest pain d enies. P alpitations d enies. R espiratory: Chest tightness d enies. P leurisy D enies. D yspnea r are, mainly with heat + exertion. C ough d enies. H emoptysis d enies. W heezing d enies. G astrointestinal: Acid Reflux/GERD/Heartburn o ccasional. D ysphagia d enies. M usculoskeletal: Arthralgias/joint pain D enies. S kin: Easy bruising d enies. N eurologic: Seizures d enies. T remor d enies. H ematology: Abnormal Bleeding d enies. P sychiatric: Anxiety d enies. 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 Modified On:07/12/2022 Status:confirmed K21.00 Gastroesophageal ref lux disease with esophagitis without hemorrhage Modified On:07/26/2022 Status:confirmed Z86.16 History of COVID-19 Modified On:07/26/2022U Status:confirmed Z79.51 [facility] (current) use of 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 Modified On:11/01/2022U Status:confirmed J45.30 Mild persistent asth ma, uncomplicated Modified On:11/01/2022U Status:confirmed E66.9 Obesity, unspecified Modified On:11/01/2022 Status:confirmed Z68.31 Body mass index [BMI ] 31.0-31.9, adult Modified On:11/20/2023U Status:confirmed * Medical History: * Surgical History: L aminectomy Cholecystectomy appendectomy hysterectomy, abdominal Sinus polypectomy cardiac catheterization 01/18/2023Nerve Ablation-Back 06/20/2022ack Injection 07/25/2022 * Hospitalization/Major Diagno stic Procedure: D enies Past Hospitalization * Family History: M other: . S chan(s): diagnosed with Diabetes mellitus without mention of complication, type II or unspecified type, not stated as uncontrolled. 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 D rugs/Alcohol: D rugs H ave you used drugs other than those for medical reasons in the past 12 months? N o D oes the Patient have a History of Drug Abuse in the Past? N o Caffeine I ntake: 1 -2 cups per day Coffee Do you drink alcohol?: Yes, Socially. Do you smoke marijuana?: Denies. * Medications: T akingAtorvastatin Calcium 40 MG Tablet 1 tablet Orally Once a day Escitalopram Oxalate 10 MG Tablet 1 tablet Orally Once a day Gabapentin 100 MG Capsule 1 capsule Orally Once a day hydroCHLOROthiazide 25 MG Tablet 1 tablet in the morning Orally Once a day Isosorbide Mononitrate ER 30 MG Tablet Extended Release 24 Hour 1 tablet in the morning Orally Once a day Losartan Potassium 50 MG Tablet 1 tablet Orally Once a day Metoprolol Succinate 25 MG Capsule ER 24 Hour Sprinkle 1 capsule Orally Once a day Omeprazole 20 MG Capsule Delayed Release 1 capsule 30 minutes before morning meal Orally Once a day oxyBUTYnin Chloride ER 15 MG Tablet Extended Release 24 Hour 1 tablet Orally Once a day Symbicort(Budesonide-Formoterol Fumarate) 160-4.5 MCG/ACT Aerosol INHALE 2 PUFFS TWICE A DAY Medication List reviewed and reconciled with the patientTaking Atorvastatin Calcium 40 MG Tablet 1 tablet Orally Once a day Taking Escitalopram Oxalate 10 MG Tablet 1 tablet Orally Once a day Taking Gabapentin 100 MG Capsule 1 capsule Orally Once a day Taking hydroCHLOROthiazide 25 MG Tablet 1 tablet in the morning Orally Once a day Taking Isosorbide Mononitrate ER 30 MG Tablet Extended Release 24 Hour 1 tablet in the morning Orally Once a day Taking Losartan Potassium 50 MG Tablet 1 tablet Orally Once a day Taking Metoprolol Succinate 25 MG Capsule ER 24 Hour Sprinkle 1 capsule Orally Once a day Taking Omeprazole 20 MG Capsule Delayed Release 1 capsule 30 minutes before morning meal Orally Once a day Taking oxyBUTYnin Chloride ER 15 MG Tablet Extended Release 24 Hour 1 tablet Orally Once a day Taking Symbicort(Budesonide-Formoterol Fumarate) 160-4.5 MCG/ACT Aerosol INHALE 2 PUFFS TWICE A DAY Medication List reviewed and reconciled with the patient * Allergies: V ersed: nausea and vomiting - Allergyno[Allergies Verified] Objective: * Vitals: W t:154.2lbs, Ht: 59 in, BP:sittin/71mm Hg, Temp:Forehead:96.1F, HR:60/min, RR:18/min, BMI:31.14Index, Oxygen sat %:Room Air:93%, Ht-cm: 149.86 cm, Wt-k.94 kg. * Examination: E xam: GENERAL APPEARANCE: A ppears stated age. Skin N ormal. Mouth P ink and moist , no candidiasis. Oropharynx/Tongue M allampati Class III. Trachea M idline. Chest N ormal. Respiratory B reath sounds are clear to auscultation. Gastrointestinal N ormal. Vascular N o edema. Musculoskeletal N ormal posture. Neurological F ocal, intact. Psychiatric A lert and oriented x3. Mentation/Cognition N ormal. Assessment: * Assessment: 1. M ild persistent asthma, uncomplicated - J45.30 (Primary) 2 . M ultiple pulmonary nodules - R91.8 3 . L peter term (current) use of 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 - Z79.51 4 . O besity, unspecified - E66.9 5 . B juliano mass index [BMI] 31.0-31.9, adult - Z68.31 Plan: * Treatment: 2. M ultiple pulmonary nodules Notes: CT 09/29/2022 compared to 07/19/2022 showed no change in multiple pulmonary nodules, including the largest in the RUL @ 10cm. Fungal labs were negative. She previously stated she did not believe this was cancer and did not want any further F/U. She continues to maintain this stance when addressed today. No further imaging will be ordered regarding this. 3. L peter term (current) use of 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 Notes: Patient was counseled to rinse & gargle with water after inhaled corticosteroid use. 4. O besity, unspecified Notes: Patient's weight is inducing a restrictive pulmonary physiology. Weight loss indicated: Decrease calories, increase activity. * Procedures: P FT: Data: PFT 09/15/2014: -FEV1/FVC: 78% -FEV1: 98% -FVC: 94% -Bronchodilator response: None -RV: 72% -T% -DLCO: 111% -Flow-volume loop: Normal PFT 03/05/2013: -FEV1/FVC: 76% -FEV1: 92% -FVC: 91% -Bronchodilator response: None -RV: 103% -T% -DLCO: 98% -Flow-volume loop: Normal. * Procedure Codes: * Preventive Medicine: COVID Vaccination: H as patient had COVID Vaccination? COVID Vaccination Y es 04/04/2021 Immunization Status: P neumovacc p neumovacc - 03/16/2017. I nfluenza U TD-01/2023 per patient. Screenings/Counseling: F ALL RISK SCREENING Fall Risk Assessment: N o falls in the past year Are you afraid of falling? N o T OBACCO ACTION PLAN Exclusion: M edical Reason Non Smoker Type of Medical Reason: N ot indicated B [place] ACTION PLAN Above Normal BMI Follow-up D ietary management education, guidance, and counseling * Follow Up: 1 Year (Reason: Asthma) * * Sign off status: Completed Visit Status: C HK (Check Out) true * Provider: Harish Smith DO Date: 11/20/2023 Generated for Roseline foster/Erin/Marianitting on: 0 09/30/2024 08:11 AM EDT History and Physical Notes * HPI (History of Present Illness) Category Sub-Category Detail Notes Category Not es General Paient presents for a follow up for Asthma. Patient denies any complaints or concerns with her breathing today. Patient is currently using Symbicort daily with benefit. Patient is a non smoker. Patient is under the care of [facility] Cardiology. Examination Category Sub-Category Detail Notes Category Not es Exam GENERAL APPEARANCE: Appears stated age Skin Normal Mouth [place] and moist , no candidiasis Trachea Midline Chest Normal Respiratory Breath sounds are cl ear to auscultation Gastrointestinal Normal Vascular No edema Musculoskeletal Normal posture Neurological Focal, intact Psychiatric Alert and oriented x 3 Mentation/Cognition Normal Oropharynx/Tongue Mallampati Class III
--- OUTSIDE RECORDS SUMMARY | 2024-09-30 08:09 | XMS_ITS | Clinical Summary ---
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 06/29 Multiple [...] (08/09/2023): Added automatically from request for surgery [id number] Family History Medical History Relation Name Comments [...] 04/14/2024 2:22 PM EST Plan of Treatment Health Maintenance Due Date Last Done Comments Pneumococcal Vaccine: 65+ Years Completed 7, 11/17/2016 Influenza Vaccine Completed 02/25/2024, , 03/10/2020, Additional history exists Insurance MEDICARE [facility] Care Teams Learning Specialist Relationship Specialty Start Date End Date Ovi Crooks DO PCP - General Internal Medicine 07/10/23 Madhavi Arriola DO [address] [place] [address] Referring Physician Neurology 04/14/24
--- OUTSIDE RECORDS SUMMARY | 2024-09-30 08:09 | XMS_ITS | Referral Summary ---
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
--- OUTSIDE RECORDS SUMMARY | 2024-09-30 08:09 | XMS_ITS | Encounter Summary ---
Author Organization [facility] Address [address] [place] [address] Care Team Providers Care Lag Screwer Name Role Phone Ovi Crooks DO Primary Care Provider [phone] Madhavi Arriola DO Unavailable [phone] Reason for Visit * Reason Comments Med Refill Encounter Details Date Type Department Care Team (Late st Contact Info) Description 05/18/2024 Refill [facility] [address] [facility] [address] [place] [phone] Celeste Steinberg MD [address] [facility] [address] [place], [place] [id number] LPRD (laryngopharyngeal reflux disease) Social History Tobacco [...] obstruction documented in this encounter Care Teams Lag Screwer Relationship Specialty Start Date End Date Ovi Crooks DO PCP - General Internal Medicine 07/10/23 Madhavi Arriola DO [address] [place] [address] Referring Physician Neurology 04/14/24 documented as of this encounter
--- OUTSIDE RECORDS SUMMARY | 2024-09-30 08:10 | XMS_ITS | Clinical Summary ---
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
--- OUTSIDE RECORDS SUMMARY | 2024-09-30 08:12 | XMS_ITS | Encounter Summary ---
Author Organization [facility] Address [address] [place] [address] Care Team Providers Care Pattern Chart Writer Name Role Phone Ovi Crooks DO Primary Care Provider [phone] Madhavi Arriola DO Unavailable [phone] Encounter Details Date Type Department Care Team (Late st Contact Info) Description 11/05/2023 Orders Only [facility] 112 [facility] [address] [place] [address] Celeste Steinberg MD 112 [facility] [address] [place], [place] [id number] Social History Tobacco Use Types Packs/Day Years [...] Procedure Name Priority Date/Time Associated Diagnosis Comments MID LEVEL CLINICIAN EVAL AND TREAT Routine 09/13/2023 4:13 PM EDT documented in this encounter Results * MID LEVEL CLINICIAN eval and treat (09/13/2023 4:13 PM EDT) us Celeste Steinberg MD MID LEVEL CLINICIAN ORDERABLES Final Result documented in this encounter Visit Diagnoses Not on filedocumented in this encounter Care Teams Pattern Chart Writer Relationship Specialty Start Date End Date Ovi Crooks DO PCP - General Internal Medicine 07/10/23 Madhavi Arriola DO [address] [place] [address] Referring Physician Neurology 04/14/24 documented as of this encounter
--- OUTSIDE RECORDS SUMMARY | 2024-09-30 08:12 | XMS_ITS | Patient Health Record ---
Author Organization [facility] [place] Address [address] [place] [address] Care Team Providers Care Security Site Supervisor Name Role Phone Ovi Crooks DO Primary Care Provider Rogelio Pearl Unavailable [phone] Allergies Allergen (clinical drug ingredient) Drug/Non Drug Allergy documented on EMR Reaction Allergy Type Onset Date Status Versed (uncoded) nausea and vomiting Allergy Active Results Component Value Reference Range Notes SARS-CoV-2 Ag* Reviewed date:03/08/2024 03:33:10 PM Interpretation: Performing Lab: Notes/Report: [facility] , SARS-CoV-2 Ag NEGATIVE NEGATIVE complexity [...] Performing Lab: see note ML - [facility] LB Troponin I High Sensitivity Reviewed date:03/08/2024 03:33:10 PM Interpretation: Performing Lab: Notes/Report: [facility] , Troponin I High Sensitivity 9.3 [...] HAS BEEN CONFIRMED THE DECISION THRESHOLD FOR [place] USED IN ISOLATION BUT SHOULD BE INTERPRETED IN CONJUNCTION Performing Lab: see note ML - [facility] UA RANDOM W or MICROSCOPIC Reviewed date:03/08/2024 03:33:10 PM Interpretation: Performing Lab: Notes/Report: Comment Cath specimen [facility] , Color Urine LT. YELLOW YELLOW Clarity Urine CLEAR CLEAR Specific [place] Urine 1.010 1.005-1.025 pH Urine 7.0 5.0-9.0 [...] NO Performing Lab: see note ML - [facility] LB MAGNESIUM Reviewed date:03/08/2024 03:33:10 PM Interpretation: Performing Lab: Notes/Report: [facility] , Magnesium 1.9 1.8-2.4 mg/dL Performing Lab: see note ML - [facility] LB LIVER PROFILE Reviewed date:03/08/2024 03:33:10 PM Interpretation: Performing Lab: Notes/Report: [facility] , Bilirubin Total 1.4 0.2-1.0 mg/dL Bilirubin Direct 0.4 0.0-0.2 mg/dL Aspartate Amino Transferase 178 15-37 U/L Alanine Aminotransferase 156 14-59 U/L Alkaline Phosphatase 89 46-116 U/L Total Protein 6.3 6.4-8.2 g/dL Albumin Level 3.2 3.4-5.0 g/dL Globulin 3.1 Albumin Globulin Ratio 1.0 Performing Lab: see note ML - [facility] LB LIPASE Reviewed date:03/08/2024 03:33:10 PM Interpretation: Performing Lab: Notes/Report: [facility] , Lipase 26.0 16.0-77.0 U/L Performing Lab: see note ML - [facility] LB LACTATE or LACTIC ACID Reviewed date:03/08/2024 03:33:10 PM Interpretation: Performing Lab: Notes/Report: [facility] , Lactate/Lactic Acid 1.2 0.4-2.0 mmol/L Performing Lab: see note ML - [facility] LB INFLUENZA A AND B AG Reviewed date:03/08/2024 03:33:10 PM Interpretation: Performing Lab: Notes/Report: [facility] , Influenza Virus A Antigen Negative [...] Performing Lab: see note ML - [facility] LB BNP Reviewed date:03/08/2024 03:33:10 PM Interpretation: Performing Lab: Notes/Report: [facility] , NT Pro B Type Natriuretic Pept 697.0 <=1800.0 pg/mL Performing Lab: see note ML - [facility] LB PROF CHEM 8 (BAS METB) Reviewed date:03/09/2024 05:32:33 PM Interpretation: Performing Lab: Notes/Report: [facility] , Sodium 141 136-145 mmol/L Potassium [...] mg/dL Performing Lab: see note ML - [facility] LB CBC AUTO DIFF Reviewed date:03/09/2024 05:32:33 PM Interpretation: Performing Lab: Notes/Report: [facility] , White Blood Count 9.2 4.0-11.0 [...] Performing Lab: see note ML - [facility] LB Reason For Referral No Information Medications [...] Notes Problem Obstructive sleep apnea syndrome (disorder) (22482937) Obstructive sleep apnea (adult) (pediatric) (G47.33) Active confirmed Problem 222687526 Obesity, unspeci fied (E66.9) Active confirmed Problem 546910348 Mild persistent asthma, uncomplicated (J45.30) Active confirmed Problem Overactive bladder (101697022) Overactive bladder (N32.81) Active confirmed Problem 323750713 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) use of 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 (Z79.51) Active confirmed Problem Coronary artery disease (66355769) Coronary artery disease (I25.10) Active confirmed Problem Paroxysmal atrial fibrillation (291896131) Paroxysmal atrial fibrillation (I48.0) Active confirmed Problem Benign essential hypertension (3627357) Benign essential hypertension (I10) Active confirmed Problem Multiple pulmonary nodules (759538523) Multiple pulmonary nodules (R91.8) Active confirmed Problem Hypercholesterolemia (79590638) Hypercholesterolemia (E78.00) Active confirmed Problem Secondary pulmonary hypertension (32678061) Other secondary pulmonary hypertension (I27.29) Active confirmed Problem Body mass index 30.0 0 to 34.99 (062580702291425) Body mass index [BMI] 31.0-31.9, adult (Z68.31) Active confirmed Problem Gastroesophageal reflux disease with esophagitis (disorder) (223430644) Gastroesophageal reflux disease with esophagitis without hemorrhage (K21.00) Active confirmed Problem History of COVID-19 (518667715247290391) History of COVID-19 (Z86.16) Active confirmed Vital Signs Heart Rate 60 /min 11/20/2023 Temperature 96.1 degrees Fahrenheit 11/20/2023 Respiratory Rate 18 /min 11/20/2023 Oximetry 93 % 11/20/2023 Blood pressure diastolic 71 mm Hg 11/20/2023 Height 59 in 11/20/2023 Blood pressure systolic 111 mm Hg 11/20/2023 Weight 154.2 lbs 11/20/2023 BMI 31.14 kg/m2 11/20/2023 Encounters Encounter Location Date Provider Diagnosis [facility] [address] [place] [address] 11/20/2023 Rogelio Smith Mild persistent asth ma, [...] Name:Rogelio Smith, 11/25/2024 10:00:00 AM, [address] [place], [address], Insurance Providers Payer Name Payer Address Payer Phone Subscriber Number Group Number Insured Name Patient Relationship to Insured Coverage Start Date Coverage End Date MEDICARE [place] [employer] [address] [address] [place] [address] [id number] Rupali Cruz Self - patient is the insured 8 [employer] MEDICARE SUPPLEMENT [address] [place] [address] [id number] Kiki mcdonough Rupali Self [...]
--- OUTSIDE RECORDS SUMMARY | 2024-09-30 08:12 | XMS_ITS | Encounter Summary ---
Author Organization [facility] Address [address] [place] [address] Care Team Providers Care Election Assistant Name Role Phone Ovi Crooks Primary Care Provider [phone] Madhavi Arriola DO Unavailable [phone] Encounter Details Date Type Department Care Team (Late st Contact Info) Description 09/13/2023 Clinisync Result Encounter [facility] External Department Unsolicited Celeste Steinberg MD [address] [place] [address] Social History Tobacco Use Types Packs/Day Years [...] EDT Narrative 09/13/2023 2:10 PM EDT The [address] [address] Fluoroscopy Report Signed Patient: RUPALI RICHARDSON MR#: [id number] : 1940 Acct:[id number] Age/Sex: 82 / F ADM Date: 09/13/23 Loc: [place] Attending Dr: Celeste Steinberg M.D. Ordering Physician: Celeste Steinberg M.D. Date of Service: 09/13/23 Procedure(s): FL modified barium swallow Accession Number(s): [id number] cc: Ovi Crooks D.O.; Celeste Steinberg M.D. [place] [address] Patient Name: RUPALI RICHARDSON MRN: [id number] date: 1940 Sex: F Assigned Patient Location: [place] Current Patient Location: [place] Accession/Order Number: [id number] Exam Date: 09/13/2023 13:00 Report Date: 09/13/2023 [...] Signed By: 09/13/23 1410 DD/ 1407 TD/TT: Soil Science Teacher: Procedure Note Radiology, Radiologist, MD - 09/13/2023 [place] [address] Fluoroscopy Report Signed Patient: RUPALI RICHARDSON LMR#: [id number] : 1940cct:[id number] Age/Sex: 82 / FADM Date: 09/13/23 Loc: [place] Attending Dr: Celeste Steinberg M.D. Ordering Physician: Celeste Steinberg M.D. Date of Service: 09/13/23 Procedure(s): FL modified barium swallow Accession Number(s): [id number] cc: Ovi Crooks D.O.; Celeste Steinberg M.D. The [place] [address] Patient Name: RUPALI RICHARDSON MRN: [facility]:[id number] date: 1940 Sex: F Assigned Patient Location: [place] Current Patient Location: [place] Accession/Order Number: [id number] Exam Date: 09/13/2023 13:00 Report Date: 09/13/2023 [...] M.D. Signed By:09/13/23 1410 DD/ 1407 TD/TT: Soil Science Teacher: us Celeste Steinberg MD IMG XR PROCEDURES Final Resul t documented in this encounter Visit Diagnoses Not on filedocumented in this encounter Care Teams Election Assistant Relationship Specialty Start Date End Date Ovi Crooks DO PCP - General Internal Medicine 07/10/23 Madhavi Arriola DO [address] [place] [address] Referring Physician Neurology 04/14/24 documented as of this encounter
[2024-09-30 08:28] LABS: Estimated GFR (African America >60 (>=60 mL/min/1.73m^2); Estimated GFR (Non-African Ame 51 (>=60 mL/min/1.73m^2)
== END 2024-09-30 08:07 | disposition home or self-care (01) ==
PROVIDERS: PCP Internal Medicine; Visit Provider Internal Medicine
DX: N28.89 Other specified disorders of kidney and ureter (principal); N28.1 Cyst of kidney, acquired
CPT/HCPCS: 74183; 82565; A9575

== ENCOUNTER 2024-10-23 15:36 | Outpatient (OUT) | payer MEDICARE, BC, SELFPAY ==
--- OUTSIDE RECORDS SUMMARY | 2023-10-29 06:00 | XMS_ITS ---
Author Organization The [facility] in [place] Address [address] [place] [address] Care Team Providers Care Merchandise Planning Manager Name Role Phone Ovi Crooks DO Primary Care Provider Rogelio Pearl Unavailable [phone] REASON FOR VISIT F/U -1 YEAR ASTHMA Encounters Encounter Location Date Provider Diagnosis Pulmonary Medicine [place] [address] [place] [address] 10/29/2023 Rogelio Smith Plan Of Treatment Next Appt Details Provider Name:Rogelio Smith, 11/25/2024 10:00:00 AM, [address] [place], [address], Progress Notes * Rupali RICHARDSON LDOB:[birth year] (83 yo F)Acc No.[id number]:10/29/2023 UNLOCKED PROGRESS NOTE Follow Up Patient: Afsaneh ARANGOashley Gordon Provider: Harish Smith DO :1940 A ge:82 Y S ex:Female Date:10/29/2023 Address:[address] [place] [address], [id number] Pcp:Ovi Crooks DO Subjective: * Chief Complaints: * 1 . F/U -1 YEAR ASTHMA. * Medical History: Objective: * Vitals: Assessment: Plan: * Treatment: * * Electronic signature of Key Smith DO on 10/23/2024 at 03:44 PM EDT Sign off status: Pending Visit Status: R /S (Rescheduled) * Provider: Harish Smith DO Date: 0 10/29/2023 Generated for Roseline foster/Erin/Lorin on: 0 10/23/2024 03:44 PM EDT
--- OUTSIDE RECORDS SUMMARY | 2023-10-31 09:00 | XMS_ITS ---
Author Organization The [facility] in [place] Address [address] [place] [address] Care Team Providers Care Plow Shaker Name Role Phone Ovi Crooks DO Primary Care Provider Rogelio Pearl Unavailable [phone] REASON FOR VISIT F/U -1 YEAR ASTHMA Encounters Encounter Location Date Provider Diagnosis Pulmonary Medicine [place] [address] [place] [address] 10/31/2023 Rogelio Smith Plan Of Treatment Next Appt Details Provider Name:Rogelio Smith, 11/25/2024 10:00:00 AM, [address] [place], [address], Progress Notes * Rupali RICH[place] LDOB:[birth year] (83 yo F)Acc No.[id number]:10/31/2023 UNLOCKED PROGRESS NOTE Follow Up Patient: Rupali ARANGO Evan Provider: Harish Smith DO :1940 A ge:82 Y S ex:Female Date:10/31/2023 Address:[address] [place] [address], [id number] Pcp:Ovi Crooks DO Subjective: * Chief Complaints: * 1 . F/U -1 YEAR ASTHMA. * Medical History: Objective: * Vitals: Assessment: Plan: * Treatment: * * Electronic signature of Key Smith DO on 10/23/2024 at 03:44 PM EDT Sign off status: Pending Visit Status: R /S (Rescheduled) * Provider: Harish Smith DO Date: 0 10/31/2023 Generated for Roseline foster/Erin/Lorin on: 0 10/23/2024 03:44 PM EDT
--- OUTSIDE RECORDS SUMMARY | 2023-11-20 06:00 | XMS_ITS ---
Author Organization [facility] in [place] Address [address] [place] [address] Care Team Providers Care Machine Spreader Name Role Phone Ovi Crooks DO Primary Care Provider Rogelio Pearl Unavailable [phone] Allergies Allergen (clinical drug ingredient) Drug/Non Drug [...] Status Risk Notes Problem Body mass index 30.00 to 34.99 ([id number] 107) Body mass index [BMI] 31.0-31.9, adult (Z68.31) Active confirmed Vital Signs Temperature 96.1 degrees Fahrenheit 11/20/19 24 Blood pressure systolic 111 mm Hg 11/20/19 24 Blood pressure diastolic 71 mm Hg 024 Heart Rate 60 /min 11/20/2023 Respiratory Rate 18 /min 11/20/2023 Height 59 in 11/20/2023 Weight 154.2 lbs 11/20/2023 BMI 31.14 kg/m2 11/20/2023 Oximetry 93 % 11/20/2023 Encounters Encounter Location Date Provider Diagnosis Pul[facility] [address] [place] [address] 11/20/2023 Rogelio Smith Mild persistent asth ma, uncomplicated J45.30 ; Multiple pulmonary nodules R91.8 ; [facility] (current) use of 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 Z79.51 ; [...] imaging will be ordered regarding this. 11/20/2023 [facility] (current) use of 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 (ICD-10 - [...] further imaging will be ordered regarding this. 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 Weight loss indicated: Decrease calories, increase activity. Next Appt Details Follow Up: 1 Year, Reason: A sta Provider Name:Rogelio Smith, 11/25/2024 10:00:00 AM, [address] [place], [address], Procedure Notes * Category Sub-Category Detail Notes PFT Data: PFT 09/15/2014:-F EV1/FVC: 78% -FEV1: 98%-FVC: 94%-Bronchodilator response: None-RV: 72%-T%-DLCO: 111%-Flow-volume loop: NormalPFT 03/05/2013:-FEV1/FVC: 76% -FEV1: 92%-FVC: 91%-Bronchodilator response: None-RV: 103%-T%-DLCO: 98%-Flow-volume loop: Normal Progress Notes * Rupali RICHARDSON LDOB:[birth year] (83 yo F)Acc No.[id number]:11/20/2023 Follow Up Patient: Rupali ARANGO Provider: Harish Smith, DO :1940 A ge:83 Y S ex:Female Date:11/20/2023 Address:[address] [place] [address]. [address], [place], [id number] Pcp:Ovi Crooks, DO Check In:09:55 AM ESTCheck [...] smoker. Patient is under the care of [facility] Cardiology. 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 S isdanyell(s): diagnosed with Diabetes mellitus without mention of complication, type II or unspecified type, not stated as uncontrolled. * Social History: T obacco Use: T obacco Control (Standard) T obacco use: N onsmoker Electronic Cigarette use C urrent user N o Tobacco Use/Smoking P atient is a n villa M iscellaneous: O ccupation O ccupation: S [...] of Medical Reason: N ot indicated B MA ACTION PLAN Above Normal BMI Follow-up D ietary management education, guidance, and counseling * Follow Up: 1 Year (Reason: Asthma) * * Sign off status: Completed Visit Status: C HK (Check Out) true * Provider: Harish Smith DO Date: 11/20/2023 Generated for Roseline foster/Erin/Marianitting on: 10/23/2024 03:44 PM EDT History and Physical Notes * HPI (History of Present Illness) Category Sub-Category Detail Notes Category Not es General Paient presents for a follow up for Asthma. Patient denies any complaints or concerns with her breathing today. Patient is currently using Symbicort daily with benefit. Patient is a non smoker. Patient is under the care of [facility] Cardiology. Examination Category Sub-Category Detail Notes Category Not es Exam GENERAL APPEARANCE: Appears stated age Skin Normal Mouth [place] and moist , no candidiasis Trachea Midline Chest Normal Respiratory Breath sounds are cl ear to auscultation Gastrointestinal Normal Vascular No edema Musculoskeletal Normal posture Neurological Focal, intact Psychiatric Alert and oriented x 3 Mentation/Cognition Normal Oropharynx/Tongue Mallampati Class III
--- OUTSIDE RECORDS SUMMARY | 2024-10-23 15:43 | XMS_ITS | Clinical Summary ---
Author Organization [facility] Address [address] [place] [address] Care Team Providers Care Founder President And Ceo Name Role Phone Ovi Crooks DO Primary Care Provider Allergies Active Allergy Reactions Criticality Noted Date Comments Midazolam Nausea And Vomiting Medium 05/10/2022 Medications gabapentin (Neurontin) 100 mg capsule Take 100 mg by mouth 1 (one) time each day. 2 Active losartan (Cozaar) 50 mg tablet Take 50 mg by mouth in the morning. 2 Active oxybutynin XL (Ditropan-XL) 15 mg 24 hr tablet Take 15 mg by mouth in the morning. 2 Active escitalopram (Lexapro) 10 mg tablet Take 10 mg by mouth in the morning. 3 Active hydroCHLOROthiaz luis (HYDRODiuril) 25 mg tablet Take 25 mg by mouth in the morning. 2 Active aspirin 81 mg EC tabletIndication s:Coronary artery disease of [place] heart with stable angina pectoris, unspecified vessel or lesion type Take 1 tablet (81 mg) by mouth in the morning. 90 tablet 3 3 Active ciclesonide (Alvesco) 80 mcg/actuation inhaler 1 puff every 12 (twelve) hours. Active omeprazole (PriLOSEC) [address] capsule 1 (one) time each day at the same time. Active multivitamin tablet Take 1 tablet by mouth in the morning. Active calcium carbonate (CALCIUM 500 ORAL) Take by mouth. Active acetaminophen (Tylenol) 500 mg tablet Take by mouth every 6 (six) hours if needed for mild pain (1-3 pain score). Active budesonide-formo teroL (Symbicort) 160-4.5 mcg/actuation inhaler every 12 (twelve) hours. 3 Active baclofen (Lioresal) 5 mg tablet Take 2.5-5 mg by mouth if needed. 3 Active atorvastatin (Lipitor) 40 mg tabletIndication s:Coronary artery disease of [place] heart with stable angina pectoris, unspecified vessel or lesion type TAKE 1 TABLET AT BEDTIME 90 tablet 3 4 Active metoprolol succinate XL (Toprol-XL) 25 mg 24 hr tabletIndication s:Coronary artery disease of [place] heart with stable angina pectoris, unspecified vessel or lesion type TAKE 1 TABLET ONE TIME DAILY DIRECTED 90 tablet 3 4 Active atorvastatin (Lipitor) 40 mg tabletIndication s:Coronary artery disease of [place] heart with stable angina pectoris, unspecified vessel or lesion type Take 1 tablet (40 mg) by mouth in the morning. 90 tablet 3 5 06/19/19 26 Active isosorbide mononitrate ER (Imdur) 30 mg 24 hr tabletIndication s:Coronary artery disease of [place] heart with stable angina pectoris, unspecified vessel or lesion type Take 1 tablet (30 mg) by mouth in the morning. Do not crush or chew. 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 06/29 Multiple pulmonary nodules 07/26/2022 Obstructive sleep apnea syndrome 07/26/2022 Overactive bladder 07/26/2022 Paroxysmal atrial fibrillation 07/26/2022 Secondary pulmonary hypertension 07/26/2022 Shortness of breath 07/26/2022 Abnormal stress test 05/11/2022 Overview (05/11/2022): Added automatically from request for surgery [id number] Immunizations Immunization Administration Dates Next Due Influenza, Seasonal, Quadriv [...] Physically or Sexually Abused Not on file Comments No Sex and Gender Information Value Date Recorded Sex Assigned at Not on file Legal Sex Female 10:33 PM EDT Gender Identity Not on file [...] 03/10/2020, 03/27/2018, Additional history exists Pneumococcal Vaccine: 50+ Years Completed 03/16/2017, 11/17/2016 HIB Vaccines Aged [...] on patient's age to complete this topic Insurance MEDICARE [facility] Care Teams Founder President And Ceo Relationship Specialty Start Date End Date Ovi Crooks DO [address] [place] [address] PCP - General 05/09/22
--- OUTSIDE RECORDS SUMMARY | 2024-10-23 15:43 | XMS_ITS | Encounter Summary ---
Author Organization [facility] Address [address] [place] [address] Care Team Providers Care Senior Nuclear Medicine Technologist Name Role Phone Ovi Crooks DO Primary Care Provider [phone] Madhavi Arriola DO Unavailable [phone] Reason for Visit * Reason Comments Med Refill Encounter Details Date Type Department Care Team (Late st Contact Info) Description 05/18/2024 Refill [facility] 112 [facility] [address] [place] [address] Celeste Steinberg MD 112 [facility] [address] [place], [place] [address] LPRD (laryngopharyngeal reflux disease) Social History Tobacco [...] obstruction documented in this encounter Care Teams Senior Nuclear Medicine Technologist Relationship Specialty Start Date End Date Ovi Crooks DO PCP - General Internal Medicine 07/10/23 Madhavi Arriola DO [address] [place] [address] Referring Physician Neurology 04/14/24 documented as of this encounter
--- OUTSIDE RECORDS SUMMARY | 2024-10-23 15:43 | XMS_ITS | Referral Summary ---
Author Organization [facility] Address [address] [place] [address] Care Team Providers Care Manager Finance Name Role Phone Ovi Crooks DO Primary [...] mg EC tabletIndication s:Coronary artery disease of [place] heart with stable angina pectoris, unspecified vessel [...] 40 mg tabletIndication s:Coronary artery disease of [place] heart with stable angina pectoris, unspecified vessel or lesion type TAKE 1 TABLET AT BEDTIME 90 tablet 3 4 Active metoprolol succinate XL (Toprol-XL) 25 mg 24 hr tabletIndication s:Coronary artery disease of [place] heart with stable angina pectoris, unspecified vessel or lesion type TAKE 1 TABLET ONE TIME DAILY DIRECTED 90 tablet 3 4 Active atorvastatin (Lipitor) 40 mg tabletIndication s:Coronary artery disease of [place] heart with stable angina pectoris, unspecified vessel or lesion type Take 1 tablet (40 mg) by mouth in the morning. 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 06/29 Multiple pulmonary nodules 07/26/2022 Obstructive sleep apnea syndrome 07/26/2022 Overactive bladder 07/26/2022 Paroxysmal atrial fibrillation 07/26/2022 Secondary pulmonary hypertension 07/26/2022 Shortness of breath 07/26/2022 Abnormal stress test 05/11/2022 Overview (05/11/2022): Added automatically from request for surgery [id number] Immunizations Immunization Administration Dates Next Due Influenza, [...] EDT Plan of Treatment Not on file Insurance MEDICARE [facility] Care Teams Manager Finance Relationship Specialty Start Date End Date Ovi Crooks DO [address] [place] [address] PCP - General 05/09/22
--- OUTSIDE RECORDS SUMMARY | 2024-10-23 15:44 | XMS_ITS | Encounter Summary ---
Author Organization [facility] Address [address] [place] [address] Care Team Providers Care Waiter/Waitress Tourist Class Name Role Phone Ovi Crooks Primary Care Provider [phone] Madhavi Arriola DO Unavailable [phone] Encounter Details Date Type Department Care Team (Late st Contact Info) Description 09/13/2023 Clinisync Result Encounter [facility] External Department Unsolicited Celeste Steinberg MD [address] [place] [address] Social History Tobacco Use Types Packs/Day Years [...] EDT Narrative 09/13/2023 2:10 PM EDT The [address] [address] Fluoroscopy Report Signed Patient: RUPALI RICHARDSON MR#: [id number] : 1940 Acct:[id number] Age/Sex: 82 / F ADM Date: 09/13/23 Loc: [place] Attending Dr: Celeste Steinberg M.D. Ordering Physician: Celeste Steinberg M.D. Date of Service: 09/13/23 Procedure(s): FL modified barium swallow Accession Number(s): [id number] cc: Ovi Crooks D.O.; Celeste Steinberg M.D. [place] [address] Patient Name: RUPALI RICHARDSON MRN: [facility]:[id number] date: 1940 Sex: F Assigned Patient Location: [place] Current Patient Location: [place] Accession/Order Number: [id number] Exam Date: 09/13/2023 13:00 Report Date: 09/13/2023 [...] Signed By: 09/13/23 1410 DD/ 1407 TD/TT: Automotive Electrical Helper: Procedure Note Radiology, Radiologist, MD - 09/13/2023 [place] [address] Fluoroscopy Report Signed Patient: RUPALI RICHARDSON LMR#: [id number] : 1940cct:[id number] Age/Sex: 82 / FADM Date: 09/13/23 Loc: [place] Attending Dr: Celeste Steinberg M.D. Ordering Physician: Celeste Steinberg M.D. Date of Service: 09/13/23 Procedure(s): FL modified barium swallow Accession Number(s): [id number] cc: Ovi Crooks D.O.; Celeste Steinberg M.D. The [place] [address] Patient Name: RUPALI RICHARDSON MRN: [facility]:[id number] date: 1940 Sex: F Assigned Patient Location: [place] Current Patient Location: [place] Accession/Order Number: [id number] Exam Date: 09/13/2023 13:00 Report Date: 09/13/2023 [...] M.D. Signed By:09/13/23 1410 DD/ 1407 TD/TT: Automotive Electrical Helper: us Celeste Steinberg MD IMG XR PROCEDURES Final Resul t documented in this encounter Visit Diagnoses Not on filedocumented in this encounter Care Teams Waiter/Waitress Tourist Class Relationship Specialty Start Date End Date Ovi Crooks DO PCP - General Internal Medicine 07/10/23 Madhavi Arriola DO [address] [place] [address] Referring Physician Neurology 04/14/24 documented as of this encounter
--- OUTSIDE RECORDS SUMMARY | 2024-10-23 15:44 | XMS_ITS | Patient Health Record ---
Author Organization [facility] [place] Address [address] [place] [address] Care Team Providers Care Scientific Informatics Analyst Name Role Phone Valeriy KENNEDY Ovi Primary Care Provider Rogelio Pearl Unavailable [phone] Allergies Allergen (clinical drug ingredient) Drug/Non Drug Allergy documented on EMR Reaction Allergy Type Onset Date Status Versed (uncoded) nausea and vomiting Allergy Active Results Component Value Reference Range Notes BNP Reviewed date:03/08/2024 03:33:10 PM Interpretation: Performing Lab: Notes/Report: [facility] , NT Pro B Type Natriuretic Pept 697.0 <=1800.0 pg/mL Performing Lab: see note ML - [facility] LB INFLUENZA A AND B AG Reviewed date:03/08/2024 03:33:10 PM Interpretation: Performing Lab: Notes/Report: [facility] , Influenza Virus A Antigen Negative [...] Lab: see note ML - [facility] LB LACTATE or LACTIC ACID Reviewed date:03/08/2024 03:33:10 PM Interpretation: Performing Lab: Notes/Report: [facility] , Lactate/Lactic Acid 1.2 0.4-2.0 mmol/L Performing Lab: see note ML - [facility] LB LIPASE Reviewed date:03/08/2024 03:33:10 PM Interpretation: Performing Lab: Notes/Report: [facility] , Lipase 26.0 16.0-77.0 U/L Performing Lab: see note ML - [facility] LB LIVER PROFILE Reviewed date:03/08/2024 03:33:10 PM Interpretation: Performing Lab: Notes/Report: [facility] , Bilirubin Total 1.4 0.2-1.0 mg/dL Bilirubin Direct 0.4 0.0-0.2 mg/dL Aspartate Amino Transferase 178 15-37 U/L Alanine Aminotransferase 156 14-59 U/L Alkaline Phosphatase 89 46-116 U/L Total Protein 6.3 6.4-8.2 g/dL Albumin Level 3.2 3.4-5.0 g/dL Globulin 3.1 Albumin Globulin Ratio 1.0 Performing Lab: see note ML - [facility] MAGNESIUM Reviewed date:03/08/2024 03:33:10 PM Interpretation: Performing Lab: Notes/Report: [facility] , Magnesium 1.9 1.8-2.4 mg/dL Performing Lab: see note ML - [facility] UA RANDOM W or MICROSCOPIC Reviewed date:03/08/2024 03:33:10 PM Interpretation: Performing Lab: Notes/Report: Comment Cath specimen [facility] , Color Urine LT. YELLOW YELLOW Clarity Urine CLEAR CLEAR Specific [place] Urine 1.010 1.005-1.025 pH Urine 7.0 5.0-9.0 [...] NO Performing Lab: see note ML - [facility] LB Troponin I High Sensitivity Reviewed date:03/08/2024 03:33:10 PM Interpretation: Performing Lab: Notes/Report: [facility] , Troponin I High Sensitivity 9.3 4.0-51.3 pg/m L 99TH PERCENTILE = 51.4 PG/ML UNIVERSAL DEFINITION OF MYOCARDIAL INFARCTION. THE UPPER REFERENCE LIMIT (URL) OF TROPONIN, DEFINED THE 99TH DIAGNOSIS. WITH OTHER DIAGNOSTIC AND CLINICAL INFORMATION. PERCENTILE OF cTnI DISTRIBUTION IN A REFERENCE POPULATION, CUT-OFF POINTS HAVE BEEN ESTABLISHED BASED ON THE FOURTH NOTE: HIGH-SENSITIVITY TROPONIN ASSAY IS NOT INTENDED TO BE HAS BEEN CONFIRMED THE DECISION THRESHOLD FOR [place] USED IN ISOLATION BUT SHOULD BE INTERPRETED IN CONJUNCTION Performing Lab: see note ML - [facility] LB SARS-CoV-2 Ag* Reviewed date:03/08/2024 03:33:10 PM Interpretation: Performing Lab: Notes/Report: [facility] , SARS-CoV-2 Ag NEGATIVE NEGATIVE complexity testing. This test has been authorized only for authorized for the duration of the declaration that and/or diagnosis of Covid-19 under section 564(b)(1) of the circumstances exist justifying the authorization of (EUA) for use by authorized laboratories certified under terminated or authorization is revoked sooner. authorized by the FDA under an Emergency Use Authorization Act, 21 U.S.C. 360bbb-3(b)(1), unless the declaration is emergency use of in vitro diagnostic tests for detection viruses or pathogens. The emergency use of this test is This test has not been FDA cleared or approved, but has been the detection of proteins from SARS-CoV-2, not for any other CLIA that meet the requirements to perform moderate or high Performing Lab: see note ML - [facility] LB PROF CHEM 8 (BAS METB) Reviewed date:03/09/2024 05:32:33 PM Interpretation: Performing Lab: Notes/Report: [facility] , Sodium 141 136-145 mmol/L Potassium [...] mg/dL Performing Lab: see note ML - [facility] LB CBC AUTO DIFF Reviewed date:03/09/2024 05:32:33 PM Interpretation: Performing Lab: Notes/Report: [facility] , White Blood Count 9.2 4.0-11.0 [...] Lab: see note ML - [facility] LB Reason For Referral No Information [...] Notes Problem Obstructive sleep apnea syndrome (disorder) (39392328) Obstructive sleep apnea (adult) (pediatric) (G47.33) Active confirmed Problem 804193885 Obesity, unspeci fied (E66.9) Active confirmed Problem 174602791 Mild persistent asthma, uncomplicated (J45.30) Active confirmed Problem Overactive bladder (520713526) Overactive bladder (N32.81) Active confirmed Problem 393893371 alf (curre nt) use of 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 (Z79.51) Active confirmed Problem Coronary artery disease (23157024) Coronary artery disease (I25.10) Active confirmed Problem Paroxysmal atrial fibrillation (888708306) Paroxysmal atrial fibrillation (I48.0) Active confirmed Problem Benign essential hypertension (4214295) Benign essential hypertension (I10) Active confirmed Problem Multiple pulmonary nodules (776793387) Multiple pulmonary nodules (R91.8) Active confirmed Problem Hypercholesterolemia (69778583) Hypercholesterolemia (E78.00) Active confirmed Problem Secondary pulmonary hypertension (46299070) Other secondary pulmonary hypertension (I27.29) Active confirmed Problem Body mass index 30.0 0 to 34.99 (559108237424904) Body mass index [BMI] 31.0-31.9, adult (Z68.31) Active confirmed Problem Gastroesophageal reflux disease with esophagitis (disorder) (656598016) Gastroesophageal reflux disease with esophagitis without hemorrhage (K21.00) Active confirmed Problem History of COVID-19 (219749417183304550) History of COVID-19 (Z86.16) Active confirmed Vital Signs Heart Rate 60 /min 11/20/2023 Temperature 96.1 degrees Fahrenheit 11/20/2023 Respiratory Rate 18 /min 11/20/2023 Oximetry 93 % 11/20/2023 Blood pressure diastolic 71 mm Hg 11/20/2023 Height 59 in 11/20/2023 Blood pressure systolic 111 mm Hg 11/20/2023 Weight 154.2 lbs 11/20/2023 BMI 31.14 kg/m2 11/20/2023 Encounters Encounter Location Date Provider Diagnosis Pulmonary Medicine [place] [address] [place] [address] 11/20/2023 Rogelio Smith Mild persistent asth ma, uncomplicated J45.30 ; Multiple pulmonary nodules R91.8 ; ferry terminal agent (current) use of 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 Z79.51 ; [...] imaging will be ordered regarding this. 11/20/2023 ferry terminal agent (current) use of 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 (ICD-10 - [...] Name:Rogelio Smith, 11/25/2024 10:00:00 AM, [address] [place], [address], Insurance Providers Payer Name Payer Address Payer Phone Subscriber Number Group Number Insured Name Patient Relationship to Insured Coverage Start Date Coverage End Date MEDICARE [place] [address] [address] [place] [address] [id number] Rupali Cruz Self - patient is the insured 8 [employer] MEDICARE SUPPLEMENT [address] [place] [address] [id number] Kiki mcdonough Rupali Self [...] lymph nodes I89.8 Surgical History Surgery Date(Month/Year) Back Injection 07/25/2022 Nerve Ablation-Back 06/20/2022 cardiac catheterization 05/17/2022 Sinus polypectomy Laminectomy Cholecystectomy appendectomy hysterectomy, abdominal
--- OUTSIDE RECORDS SUMMARY | 2024-10-23 15:45 | XMS_ITS | Encounter Summary ---
Author Organization [facility] Address [address] [place] [address] Care Team Providers Care Nut Grinder Name Role Phone Ovi Crooks DO Primary Care Provider [phone] Madhavi Arriola DO Unavailable [phone] Encounter Details Date Type Department Care Team (Late st Contact Info) Description 11/05/2023 Orders Only [facility] [address] [facility] [address] [place] [address] Celeste Steinberg MD [address] [facility] [address] [place], [place] [id number] Social History Tobacco Use Types Packs/Day Years [...] Procedure Name Priority Date/Time Associated Diagnosis Comments CONTROL OPERATOR FLOW COAT EVAL AND TREAT Routine 09/13/2023 4:13 PM EDT documented in this encounter Results * CONTROL OPERATOR FLOW COAT eval and treat (09/13/2023 4:13 PM EDT) us Celeste Steinberg MD CONTROL OPERATOR FLOW COAT ORDERABLES Final Result documented in this encounter Visit Diagnoses Not on filedocumented in this encounter Care Teams Nut Grinder Relationship Specialty Start Date End Date Ovi Crooks DO PCP - General Internal Medicine 07/10/23 Madhavi Arriola DO [address] [place] [address] Referring Physician Neurology 04/14/24 documented as of this encounter
[2024-10-23 16:23] LABS: Estimated Average Glucose 123 mg/dL; Glycohemoglobin A1C 5.9 % (4.5-6.2)
[2024-10-23 16:54] LABS: Albumin Level 3.3 g/dL (3.4-5.0)
[2024-10-26 11:10] LABS: PTH, Intact 43 pg/mL (15-65)
== END 2024-10-23 15:37 | disposition home or self-care (01) ==
PROVIDERS: PCP Internal Medicine; Visit Provider Internal Medicine
DX: R73.9 Hyperglycemia, unspecified (principal); E83.52 Hypercalcemia
CPT/HCPCS: 36415; 82042; 82306; 82310; 83036; 83970; 84100

== ENCOUNTER 2024-12-03 08:15 | Outpatient (OUT) | payer MEDICARE, BC, SELFPAY ==
--- NOTE | 2024-12-03 08:20 | PM.CN ---
Consult Note: HPI Data of Consult Patient: known to practice within the last 3 years Consult date: 12/03/24 Requesting Physician: Kelly Lott NP Primary Care Provider: Ovi Crooks, Consult Narrative Reason for consult: low back and right leg pain Narrative: Rupali Richardson a pleasant 83 year old female presents for evaluation of low back and right leg pain. recent lumbar MRI consistent with multilevel degenerative changes and stenosis. Pain today 5/10 sharp, increasing with standing, walking, twisting, pulling, standing, gardening to 10/10. Pain improved with forward flexion, sitting, lying down. Pt reports heaviness and weakness to RLE with activity. currently utilizing tylenol and gabapentin with mild benefit without side effects. 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 (ICD-10) Lumbar spondylosis ?M47.816 - Spondylosis without myelopathy or radiculopathy, lumbar region (ICD-10) Numbness and tingling ?R20.0 - Anesthesia of skin (ICD-10) ?R20.2 - Paresthesia of skin (ICD-10) Osteoarthritis ?M19.90 - Unspecified osteoarthritis, unspecified site (ICD-10) Upper back pain ?M54.9 - Dorsalgia, unspecified (ICD-10) Low back pain ?M54.50 - Low back pain, unspecified (ICD-10) Acid reflux ?K21.9 - Gastro-esophageal reflux disease without esophagitis (ICD-10) Obesity ?E66.9 - Obesity, unspecified (ICD-10) Sleep apnea ?G47.30 - Sleep apnea, unspecified (ICD-10) Atrial fibrillation ?I48.91 - Unspecified atrial fibrillation (ICD-10) Surgical History 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 - Acquired absence of unspecified finger(s) (ICD-10) S/P lumbar spine operation ?Z98.890 - Other specified postprocedural states (ICD-10) S/P thoracentesis ?Z98.890 - Other specified postprocedural states (ICD-10) S/P sinus surgery ?Z98.890 - Other specified postprocedural states (ICD-10) H/O hand surgery ?Z98.890 - Other specified postprocedural states (ICD-10) H/O cardiac catheterization ?Z98.890 - Other specified postprocedural states (ICD-10) History of hysterectomy ?Z90.710 - Acquired absence of both cervix and uterus (ICD-10) History of cholecystectomy ?Z90.49 - Acquired absence of other specified parts of digestive tract (ICD-10) Hx of appendectomy ?Z90.49 - Acquired absence of other specified parts of digestive tract (ICD-10) Social History Highest level of school completed/degree received: high school graduate Little interest or pleasure in doing things: not at all Feeling down, depressed, or hopeless: not at all Meds Home Medications and Allergies Home Medications ?Medication ?Instructions ?Recorded ?Confirmed ?Type atorvastatin 40 mg tablet 40 mg PO DAILY 10/05/22 09/08/24 History escitalopram oxalate 10 mg tablet 10 mg PO DAILY 10/05/22 09/08/24 History (Lexapro) gabapentin 100 mg capsule 100 mg PO BID 10/05/22 09/08/24 History isosorbide mononitrate 30 mg 30 mg PO DAILY 10/05/22 09/08/24 History tablet,extended release 24 hr losartan 50 mg tablet 50 mg PO DAILY 10/05/22 09/08/24 History metoprolol tartrate 25 mg tablet 12.5 mg PO DAILY 10/05/22 09/08/24 History oxybutynin chloride 15 mg 15 mg PO DAILY 10/05/22 09/08/24 History tablet,extended release 24 hr clopidogrel 75 mg PO DAILY 04/12/23 09/08/24 History budesonide-formoterol HFA 160 2 puff inhalation Q12H 03/08/24 09/08/24 History mcg-4.5 mcg/actuation aerosol inhaler (Symbicort) hydrochlorothiazide 25 mg tablet 25 mg PO QAM 03/08/24 09/08/24 History omeprazole 40 mg capsule,delayed 40 mg PO .ACB 03/08/24 09/08/24 History release Allergies Allergy/AdvReac Type Severity Reaction Status Date / Time midazolam (From Versed) Allergy Unknown Vomiting Verified 09/08/24 08:13 Exam Constitutional Documenting provider has reviewed patient's vital signs: yes Common normals: no apparent distress, oriented x3, healthy appearing, alert and well nourished General appearance: cooperative HENMT Common normals: normocephalic, hearing grossly normal bilaterally and moist oral mucous membranes Head and scalp: normocephalic Eye Common normals: PERRL Pupil: PERRL Neck & C-Spine Common normals: full ROM General: normal visual inspection Chest Common normals: inspection of chest normal Respiratory Common normals: normal respiratory effort, no retractions and no use of accessory muscles Back & Pelvis Lumbar spine/lower back: ROM limited, pain with ROM and straight leg raise positive right Sacroiliac joints: SI joint(s) abnormal Other: right positive michelle(patricks), gaenslens, thigh thrust, compression test strength 4/5 in RLE and 5/5 in LLE decreased sensation right L4,5,S1 Neuro Common normals: oriented x3 Sensorium/orientation: alert Psych Common normals: mental status grossly normal, thought process normal, cooperative, affect normal, speech normal and activity/motor behavior normal Speech: normal speech Thought process: normal thought process Results Additional Findings Additional findings: If on a controlled substance or opioids, I have checked an [place] report on this patient and there are no aberrancies noted in the prescribing history.??If on a controlled substance or opioid a drug screen was completed and reviewed within the last year, and if there has not been a drug screen completed we ordered one today to monitor higher risk, state monitored pain medication use. As part of providing excellent, safe, comprehensive care, the following was completed at our patient's visit: 1. A medication reconciliation and review to ensure accurate knowledge of current/active medications, including asking our patients to inform us about any udbd-own-wessben medications or herbal remedies/nutritional supplements/alternative remedies. 2. A review to specifically ensure our patients have had annual screening for screening for depression, screening for tobacco use, and screening for unhealthy alcohol use. For concerning screenings had a discussion with the patient, provided patient education, and recommended follow-up with primary care provider when appropriate. If patient noted with a risk of falling, they received education on strength, gait, and balance training to prevent future risk of falling. Portions of this note may have been carried over from the previous visit and updated as appropriate. Please note this office utilizes paper charting in addition to the electronic medical record. A list of current medications, vitals, and PMH is available there as the clinical staff outside of myself do not have access to [employer] charting during the clinic day operations. As part of providing quality comprehensive care the current medications, vitals, and PMH were reviewed in the paper chart. Assessment and Plan Assessment and Plan (1) Lumbar stenosis with neurogenic claudication: Assessment and Plan: The patient has had over 3 months of moderate to severe low back and right leg pain with functional impairment and inadequate response to conservative care including NSAIDS (unless there are contraindication such as concurrent blood thinners), multiple oral or topical pain medications, and home exercise program/physical therapy.? Patient has completed >6 weeks of guided home exercise program and/or formal physical therapy program without relief of their symptoms.? The Oswestry Disability Index was completed, and the patient scored a 24%.? We discussed the risks and benefits of the procedure with the patient, and we are NOT planning on using sedation as outlined in the guidelines from Medicare unless there is a documented reason that sedation would be strongly recommended.?? ?The procedure will be completed with fluoroscopic guidance.? (2) Sacroiliitis: (3) Myalgia, other site: Plan repeat right L4-5 L5-S1 TFESI, prior injection providing at least 50% improvement but is noticing the pain worsening restart baclofen 5-10mg BID PRN pain/spasms consider right SIJ injection as discussed today if pain persists f/u 2 weeks after injection
== END 2024-12-03 08:16 | disposition home or self-care (01) ==
LOC: PM 08:15
PROVIDERS: PCP Internal Medicine; Visit Provider Nurse Practitioner
DX: M48.062 Spinal stenosis, lumbar region with neurogenic claudication (principal); M46.1 Sacroiliitis, not elsewhere classified; M79.18 Myalgia, other site
CPT/HCPCS: G0463

== ENCOUNTER 2024-12-05 08:42 | Outpatient (OUT) | payer MEDICARE, BC, SELFPAY ==
--- OUTSIDE RECORDS SUMMARY | 2023-11-20 06:00 | XMS_ITS ---
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 11/20/2023 shelter (current) use of 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 (ICD-10 - [...] further imaging will be ordered regarding this. 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 Weight loss indicated: Decrease calories, increase activity. Next Appt Details Follow Up: 1 Year, Reason: A sthma Procedure Notes * Category Sub-Category Detail Notes PFT Data: PFT 09/15/2014:-F EV1/FVC: 78% -FEV1: 98%-FVC: 94%-Bronchodilator response: None-RV: 72%-T%-DLCO: 111%-Flow-volume loop: NormalPFT 03/05/2013:-FEV1/FVC: 76% -FEV1: 92%-FVC: 91%-Bronchodilator response: None-RV: 103%-T%-DLCO: 98%-Flow-volume loop: Normal Progress Notes * Rupali BAUM LDOB:[birth year] (83 yo F)Acc No.[id number]:11/20/2023 Follow Up Patient: Rupali ARANGO Provider: Harish Smith, DO :1940 A ge:83 Y S ex:Female Date:11/20/2023 Address:[address] [place] [address]. [address], [place], [place] Pcp:Ovi Crooks, DO Check In:09:55 AM ESTCheck [...] smoker. Patient is under the care of [facility] Cardiology. 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 S ister(s): diagnosed with Diabetes mellitus without mention of complication, type II or unspecified type, not stated as uncontrolled. 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 Patient denies any complaints or concerns with her breathing today. Patient is currently using Symbicort daily with benefit. Patient is a non smoker. Patient is under the care of [facility] Cardiology. Examination Category Sub-Category Detail Notes Category Not es Exam GENERAL APPEARANCE: Appears stated age Skin Normal Mouth [place] and moist , no candidiasis Trachea Midline Chest Normal Respiratory Breath sounds are cl ear to auscultation Gastrointestinal Normal Vascular No edema Musculoskeletal Normal posture Neurological Focal, intact Psychiatric Alert and oriented x 3 Mentation/Cognition Normal Oropharynx/Tongue Mallampati Class III
--- OUTSIDE RECORDS SUMMARY | 2024-11-17 10:19 | XMS_ITS ---
Author Organization [facility] [place] Address [address] [place] [address] Care Team Providers Care Patent Attorney Name Role Phone Ovi Crooks DO Primary Care Provider Rogelio Pearl Unavailable [phone] REASON FOR VISIT Letter/Appointment Encounters Encounter Location Date Provider Diagnosis Pulmonary Medicine [address] [address] 11/17/2024 Rogelio Smith Plan Of Treatment No Information Progress Notes * Rupali RICHARDSON LDOB:[birth year] (84 yo F)Acc No.[id number]:11/17/2024 Patient: Rupali ARANGO Evan :1940 A ge:84 Y S ex:Female Address:[address] [place] [address], [address] * true * Date: Generated for Loreni kristin/Erin/eTransmitting on: 0 12/05/2024 08:47 AM EDT
--- OUTSIDE RECORDS SUMMARY | 2024-11-24 09:13 | XMS_ITS | Continuity of Care Document ---
Author Organization [facility] Address [address] [place] [address] Phone Care Team Providers Care Vp Compliance Name Role Phone Ovi Crooks DO Primary Care Provider Brina Morrissey MD Attending Provider [phone] Ovi Crooks DO Attending Provider [phone] Brigitte Yang APRN Attending Provider [phone] Care Teams Patient Care Team Team Status: Active Member Role Status Dates Ovi Crooks DO Primary Care Provider Active Visit Care Team Team Status: Inactive Member Role Status Dates Ovi Crooks DO Primary Care Provider Active Start: September 02, 2024 End: September 02, 2024 Brina Morrissey MD Attending Provider Active Start: September 02, 2024 End: September 02, 2024 Visit Care Team Team Status: Active Member Role Status Dates Ovi Crooks DO Primary Care Provider Active Start: September 03, 2024 Ovi Crooks DO Attending Provider Active Sta rt: September 03, 2024 Visit Care Team Team Status: Active Member Role Status Dates Ovi Crooks DO Primary Care Provider Active Start: September 30, 2024 Ovi Crooks DO Attending Provider Active Sta rt: September 30, 2024 Patient Care Team Team Status: Active Member Role Status Dates Ovi Crooks DO Primary Care Provider Active Start: October 23, 2024 Ovi Crooks DO Attending Provider Active Sta rt: October 23, 2024 Patient Care Team Team Status: Inactive Member Role Status Dates Ovi Crooks DO Primary Care Provider Active Start: November 24, 2024 End: November 24, 2024 Brigitte Yang APRN Attending Provider Active Start: November 24, 2024 End: November 24, 2024 Chief Complaint and Reason for Visit Chief Complaint Admit Date 3 MONTHS September 02, 2024 10:11a m 5-6 Month Follow up November 24, 2024 12:3 7pm Reason for Visit Admit Date Arthritis of carpometacarpal (CMC) joint of left thumb September 02, 2024 10:11am Arthritis of carpometacarpal (CMC) joint of right thumb September 02, 2024 10:11am Carpal tunnel syndrome, left September 02, 20 25 10:11am Carpal tunnel syndrome, right September 02, 2 025 10:11am Allergies, Adverse Reactions, Alerts Allergen Type Severity Reaction Last Updated Verified Status No Known Allergies Allergy Unknown November 24, 2024 12:47 pm Yes Active Social History Smoking Status Status Start Date End Date Date of Observa tion Never smoked tobacco (finding) June 28, 2023 11:11am Observation Status Observation Response Date of Response Legal Sex Female (finding) Sex Assigned At Female 1940 Family History Relationship Condition Age at Onset Recorded Date/T urvashi sister Hypertension Unknown Diabetes mellitus Unknown Problems Active Problems Medical Problem Onset Date Status Comments Carpal tunnel syndrome, right Unknown Active Elevation of levels of liver transaminase levels Unknown Active Obstructive sleep apnea Unknown Active Carpal tunnel syndrome, left Unknown Active Mild persistent asthma witho ut complication Unknown Active Renal mass, left Unknown Active CT: hypoden se nodule left nodule - 02/2024,MRI spine: 1.4cm left renal cyst - 08/2024,MRI: 1.3cm left renal hemorrhagic cyst - 09/2024- recheck in year Pleuritic chest pain Unknown Active Hoarseness Unknown Active Elevated cholesterol Unknown Active Anemia Unknown Active Cerebral atherosclerosis Unknown Active Hyperglycemia Unknown Active Chronic kidney disease Unknown Active Primary hypertension Unknown Active Ground glass opacity present on imaging of lung Unknown Active Major depressive disorder, recurrent, in full remission Unknown Active LPRD (laryngopharyngeal refl ux disease) Unknown Active Multiple pulmonary nodules Unknown Active C T: 10cm RUL - 09/2022, CT: 5mm (2), 7mm RUL - 04/2024No further imaging due to patient decision GERD (gastroesophageal reflu x disease) Unknown Active Arthritis of carpometacarpal (CMC) joint of right thumb Unknown Active Arthritis of carpometacarpal (CMC) joint of left thumb Unknown Active Pneumonia Unknown Active Lumbar spondylosis Unknown Active Obesity Unknown Active ASHD (arteriosclerotic heart disease) Unknown Active Hypercalcemia Unknown Active Medications Medication Status Dose Units Route Directions Qty Days art Date Stop Date End Date Instructions Adherence Escitalopra m Oxalate 10 mg tablet Discont inued 0 [facility] July 16, 2023 5:05pm Augus t 2023 6:54a m TAKE 1 TABLET EVERY DAY Hydrochloro thiazide 25 mg tablet Discont inued 0 .[facility] August 28, 2023 4:54pm 2024 8:27p m TAKE 1 TABLET EVERY DAY Escitalopra m Oxalate 10 mg tablet Discont inued 0 .[facility] December 10, 2023 6:54am September 28, 2024 5:30p m TAKE 1 TABLET EVERY DAY Oxybutynin Chloride 15 mg tablet extended release 24hr Discont inued 0 .[facility] December 10, 2023 6:54am September 28, 2024 5:30p m TAKE 1 TABLET EVERY DAY Omeprazole 40 mg capsule,del ayed release(DR/ EC) Active 0 .[facility] 2023 12:46p m TAKE 1 CAPSULE ONE TIME DAILY 30 MINUTES BEFORE MORNING MEAL Complies with drug therapy Gabapentin 100 mg capsule Active 0 [facility] 2024 8:27pm TAKE 1 CAPSULE AT BEDTIME Complies with drug therapy Hydrochloro thiazide 25 mg tablet Active 0 [facility] 2024 8:27pm TAKE 1 TABLET EVERY DAY Complies with drug therapy Losartan 50 mg tablet Active 0 [facility] September 04, 2024 1:11pm TAKE 1 TABLET EVERY DAY Complies with drug therapy Metoprolol Succinate 25 mg tablet extended release 24 hr Active 25 MG PO Daily September 15, 2024 12:43p m Complies with drug therapy Escitalopra m Oxalate 10 mg tablet Active 0 [facility] September 28, 2024 5:29pm TAKE 1 TABLET EVERY DAY Complies with drug therapy Oxybutynin Chloride 15 mg tablet extended release 24hr Active 0 [facility] September 28, 2024 5:30pm TAKE 1 TABLET EVERY DAY Complies with drug therapy Gabapentin 100 mg capsule Discont inued 100 MG PO July 03, 2023 1:00am 2024 8:27p m FreeText[employer]: TAKE 1 CAPSULE AT BEDTIME; Note: Source Status: Start; Refills: 3; Qty: 90 Capsule; Provider: Valeriy Dior ( ) Escitalopra m Oxalate 10 mg tablet Discont inued 10 MG PO Daily July 03, 2023 1:00am July 16, 2023 5:05p m FreeText[employer]: TAKE 1 TABLET EVERY DAY; Note: Source Status: Taking; Provider: Valeriy Dior ( ) Hydrochloro thiazide 25 mg tablet Discont inued 25 MG PO Daily July 03, 2023 1:00am August 28, 2023 4:54p m FreeText[employer]: TAKE 1 TABLET EVERY DAY; Note: Source Status: Taking; Provider: Valeriy Dior ( ) Metoprolol Succinate 25 mg tablet extended release 24 hr Discont inued 25 MG PO Daily July 03, 2023 1:00am September 15, 2024 12:44 pm FreeTextSi tablet Orally Once a day; Note: Source Status: Taking; Provider: Valeriy Dior ( ) Clopidogrel 75 mg tablet Active 75 MG PO Daily July 03, 2023 1:00am FreeTextSi tablet Orally Once a day; Note: Source Status: Start; Provider: Valeriy Quinn Complies with drug therapy Atorvastati n 40 mg tablet Active 1 TAB PO Daily July 03, 2023 1:00am FreeTextSi tablet Orally Once a day; Note: Source Status: Taking; Provider: Valeriy Dior ( ) Complies with drug therapy Oxybutynin Chloride 15 mg tablet extended release 24hr Discont inued 1 TAB PO Daily July 03, 2023 1:00am Augus t 2023 6:54a m FreeText[employer]: TAKE 1 TABLET EVERY DAY; Note: Source Status: Taking; Refills: 3; Qty: 90 Tablet; Provider: Valeriy Dior ( ) Losartan 50 mg tablet Discont inued 50 MG PO Daily July 03, 2023 1:00am September 04, 2024 1:11p m FreeText[employer]: TAKE 1 TABLET EVERY DAY; Note: Source Status: Taking; Provider: Valeriy Dior ( ) Isosorbide Mononitrate 30 mg tablet extended release 24 hr Active 1 TAB PO Daily July 03, 2023 1:00am FreeTextSi tablet in the morning Orally Once a day; Note: Source Status: Taking; Provider: Valeriy Dior ( ) Complies with drug therapy Aspirin 81 mg tablet,hubert yed release (DR/EC) Discont inued 81 MG PO Daily July 03, 2023 1:00am July 04, 2023 10:06 am FreeText[employer] tablet Orally Once a day; Note: Source Status: Taking; Provider: Valeriy Dior ( ) Omeprazole 40 mg capsule,del ayed release(DR/ EC) Discont inued 40 MG PO Daily July 03, 2023 1:00am Novem 2023 12:46 pm FreeText[employer] capsule 30 minutes before morning meal Orally Once a day; Note: Source Status: Taking; Provider: Valeriy Quinn Aspirin (Karon Low Dose Aspirin) 81 mg tablet,hubert yed release (DR/EC) Discont inued 81 MG PO Daily July 19, 2023 12:00a m July 20, 2023 9:03a m Budesonide- Formoterol (Symbicort) 160-4.5 mcg/actuati on HFA aerosol inhaler Active 2 PUFF INHALA TION Twice daily July 19, 2023 12:00a m Complies with drug therapy Famotidine 20 mg tablet Discont inued 20 MG PO Daily at bedtime 2023 12:00a m August 25, 2024 10:00 am Immunizations Immunization Event Date Not Given Reason Dose Number Premium Note Interest Calculator Clerk Lot Number Vaccine Information Statement (VIS) Detail Administration Location COVID-19 mRNA-1273 (Moderna) May 27, 2020 COVID-19 mRNA, Comirnaty ([employer]) May 27, 2020 COVID-19 mRNA, Comirnaty ([employer]) June 17, 2020 COVID-19 mRNA, Comirnaty ([employer]) April 04, 2021 Fluzone TIV High-Dose 65YR+ February 25, 2024 [id number] [facility] influenza, unspecified formulation February 09, 2016 influenza, unspecified formulation March 27, 2018 influenza, unspecified formulation March 07, 2019 influenza, unspecified formulation March 10, 2020 influenza, unspecified formulation January 17, 2021 influenza, unspecified formulation February 17, 2022 Pneumococcal Conjugate Vaccine, 13 valent November 17, 2016 Pneumococcal Polysacc. Vaccine, 23 valent March 16, 2017 Relevant Diagnostic Tests and/or Laboratory Data Laboratory Results Test Collection Date/Time Result Date/Time Result Interpretation Reference Range Result Comment Performing Site Cholester ol/HDL Ratio September 03, 2024 8:49am September 03, 2024 8:49am 1.8 3.3 - 4.4 LOW RISK4.4 - 7.1 AVERAGE RISK7.1 - 11.0 MODERATE RISK>11.0 HIGH RISK Anion Gap September 03, 2024 8:49am September 03, 2024 8:49am 7.2 Basophils # (Auto) September 03, 2024 8:49am September 03, 2024 8:49am 0.0 10 3/uL 0.0-0.1 Creatinin e September 30, 2024 8:14am September 30, 2024 8:14am 1.04 mg/dL Above high normal 0.55-1.02 Parathyro id Hormone (Intact) October 23, 2024 4:02pm October 23, 2024 4:02pm 43 pg/mL 15-65 Performed at: [facility] [id number] Director: Davie Montez PhD, Phone: [phone] 25-Hydrox y Vitamin D Total October 23, 2024 4:02pm October 23, 2024 4:02pm 26.8 ng/mL <20 ng/mL Vit D [id number] <30 ng/mL Vit D insufficient 30-100 ng/mL Vit D sufficient>1 00 ng/mL Potential Toxicity Albumin October 23, 2024 4:02pm October 23, 2024 4:02pm 3.3 g/dL Below low normal 3.4-5.0 Phosphoru s Level October 23, 2024 4:02pm October 23, 2024 4:02pm 3.0 mg/dL 2.6-4.7 Calcium Level October 23, 2024 4:02pm October 23, 2024 4:02pm 10.0 mg/dL 8.5-10.1 Estimated Average Glucose October 23, 2024 4:02pm October 23, 2024 4:02pm 123 mg/dL Cholester ol Level September 03, 2024 8:49am September 03, 2024 8:49am 129 mg/dL <=200 Albumin/G lobulin Ratio September 03, 2024 8:49am September 03, 2024 8:49am 1.1 Basophils (%) (Auto) September 03, 2024 8:49am September 03, 2024 8:49am 0.1 % Below low normal 0.2-2.0 Estimated GFR () September 30, 2024 8:14am September 30, 2024 8:14am >60 >=60 mL/min/1.7 3m 2 Hemoglobi n A1c October 23, 2024 4:02pm October 23, 2024 4:02pm 5.9 % 4.5-6.2 ADA RECOMMENDED LIMIT 4.0 - 6.0ADA THERAPEUTIC TARGET < 7.0ACTION SUGGESTED> 7.0 HDL Cholester ol September 03, 2024 8:49am September 03, 2024 8:49am 73 mg/dL Above high normal 40-60 > or =60 mg/dl - LOW CARDIOVASCUL AR RISK<40 mg/dl - HIGH CARDIOVASCUL AR RISK Albumin September 03, 2024 8:49am September 03, 2024 8:49am 3.7 g/dL 3.4-5.0 Eosinophi ls # (Auto) September 03, 2024 8:49am September 03, 2024 8:49am 0.0 10 3/uL 0.0-0.7 Estimated GFR (Non-Afri can Norwegian September 30, 2024 8:14am September 30, 2024 8:14am 51 Below low normal >=60 mL/min/1.7 3m 2 LDL Cholester ol, Calculate d September 03, 2024 8:49am September 03, 2024 8:49am 42.0 mg/dL <100 mg/dl [id number] 29 mg/dl NEAR OR ABOVE [id number] 59 mg/dl BORDERLINE [id number] mg/dl HIGH>190 mg/dl VERY HIGH Alkaline Phosphata se September 03, 2024 8:49am September 03, 2024 8:49am 75 U/L 46-116 Eosinophi ls (%) (Auto) September 03, 2024 8:49am September 03, 2024 8:49am 0.1 % Below low normal 0.9-7.0 Triglycer ides Level September 03, 2024 8:49am September 03, 2024 8:49am 72 mg/dL <=150 Alanine Aminotran sferase (ALT/SGPT ) September 03, 2024 8:49am September 03, 2024 8:49am 21 U/L 14-59 Hematocri t September 03, 2024 8:49am September 03, 2024 8:49am 37.6 % 36.0-48.0 VLDL Cholester ol September 03, 2024 8:49am September 03, 2024 8:49am 14.4 mg/dL Aspartate Amino Transf (AST/SGOT ) September 03, 2024 8:49am September 03, 2024 8:49am 13 U/L Below low normal 15-37 Hemoglobi n September 03, 2024 8:49am September 03, 2024 8:49am 12.8 g/dL 12.0-16.0 BUN/Creat inine Ratio September 03, 2024 8:49am September 03, 2024 8:49am 15.2 Immature Granulocy te # (Auto) September 03, 2024 8:49am September 03, 2024 8:49am 0.04 10 3/uL Above high normal 0.00-0.03 Blood Urea Nitrogen September 03, 2024 8:49am September 03, 2024 8:49am 20.0 mg/dL Above high normal 7.0-18.0 Immature Granulocy te % (Auto) September 03, 2024 8:49am September 03, 2024 8:49am 0.4 % 0.0-0.5 Calcium Level September 03, 2024 8:49am September 03, 2024 8:49am 10.6 mg/dL Above high normal 8.5-10.1 Lymphocyt es # (Auto) September 03, 2024 8:49am September 03, 2024 8:49am 1.3 10 3/uL 1.2-3.8 Chloride Level September 03, 2024 8:49am September 03, 2024 8:49am 103 mmol/L 98-107 Lymphocyt es (%) (Auto) September 03, 2024 8:49am September 03, 2024 8:49am 11.6 % Below low normal 20.5-60.0 Carbon Dioxide Level September 03, 2024 8:49am September 03, 2024 8:49am 32.4 mmol/L Above high normal 21.0-32.0 Mean Corpuscul ar Hemoglobi n September 03, 2024 8:49am September 03, 2024 8:49am 30.2 pg 26.7-34.0 Creatinin e September 03, 2024 8:49am September 03, 2024 8:49am 1.32 mg/dL Above high normal 0.55-1.02 Mean Corpuscul ar Hemoglobi n Concent September 03, 2024 8:49am September 03, 2024 8:49am 34.0 g/dL 29.9-35.2 Estimated GFR () September 03, 2024 8:49am September 03, 2024 8:49am 47 Below low normal >=60 mL/min/1.7 3m 2 Mean Corpuscul ar Volume September 03, 2024 8:49am September 03, 2024 8:49am 88.7 fL 81.0-99.0 Estimated GFR (Non-Afri can Norwegian September 03, 2024 8:49am September 03, 2024 8:49am 39 Below low normal >=60 mL/min/1.7 3m 2 Monocytes # (Auto) September 03, 2024 8:49am September 03, 2024 8:49am 0.4 10 3/uL 0.3-0.8 Globulin September 03, 2024 8:49am September 03, 2024 8:49am 3.3 g/dL Monocytes (%) (Auto) September 03, 2024 8:49am September 03, 2024 8:49am 3.8 % 1.7-12.0 Glucose Level September 03, 2024 8:49am September 03, 2024 8:49am 149 mg/dL Above high normal 74-106 Mean Platelet Volume September 03, 2024 8:49am September 03, 2024 8:49am 11.8 fL 9.5-13.5 Potassium Level September 03, 2024 8:49am September 03, 2024 8:49am 3.6 mmol/L 3.5-5.1 Neutrophi ls # (Auto) September 03, 2024 8:49am September 03, 2024 8:49am 9.1 10 3/uL Above high normal 1.4-6.5 Sodium Level September 03, 2024 8:49am September 03, 2024 8:49am 139 mmol/L 136-145 Neutrophi ls (%) (Auto) September 03, 2024 8:49am September 03, 2024 8:49am 84.0 % Above high normal 43.0-75.0 Total Bilirubin September 03, 2024 8:49am September 03, 2024 8:49am 0.7 mg/dL 0.2-1.0 Platelet Count September 03, 2024 8:49am September 03, 2024 8:49am 213 10 3/uL 150-450 Total Protein September 03, 2024 8:49am September 03, 2024 8:49am 7.0 g/dL 6.4-8.2 Red Blood Count September 03, 2024 8:49am September 03, 2024 8:49am 4.24 10 6/uL 4.20-5.40 Red Cell Distribut ion Width September 03, 2024 8:49am September 03, 2024 8:49am 13.2 % 11.0-15.0 Corrected White Blood Count September 03, 2024 8:49am September 03, 2024 8:49am 10.8 10 3/uL 4.0-11.0 Vital Signs Vital Reading Result Reference Range Collection Date/Time Height 59 [in_i] November 24, 2024 12:46pm Weight 70.30 kg November 24, 2024 12:46pm Heart Rate 75 /min 60-100 November 24, 2024 12:46pm BP Systolic 111 mm[Hg] 100-140 November 24, 2024 12:46pm BP Diastolic 57 mm[Hg] 60-100 November 24, 2024 12:46pm BMI (Body Mass Index) 31.3 kg/m2 October 292024 12:46pm Advance Directives Advance Directive Response Recorded Date/ Time Advance Directives No December 21, 2021 12:20pm Insurance Providers Guarantor Rupali Richardson Address [address] [place] [address] [place] [phone] Contact Info. Home Phone: Payer Policy Id Subscriber's Name Subscriber Id Effectiv e Date Expiration Date Shirley ALLRED/PJ [id number] Rupali Princezenia [id number] Medicare [id number] Rupali Princeisaiascarolina [id number] Encounters Encounter Location(s) Arrival/Admit Date Discharge/Depart Date Provider(s) Departed Physician/Prov ider Office Visit -[facility] September 02, 2024 10:11am September 02, 2024 10:28am Brina Morrissey MD Non-patient / Non-visit -[facility] September 03, 2024 8:49am Ovi Crooks DO Non-patient / Non-visit -[facility] September 30, 2024 8:14am Ovi Crooks DO Non-patient / Non-visit -[facility] October 23, 2024 4:02pm Ovi Crooks DO Departed Physician/Prov ider Office Visit -[facility] November 24, 2024 12:37pm November 24, 2024 1:11pm Alexandra Brown APRN Recent Diagnosis Onset Date Admit Date Arthritis of carpometacarpal (CMC) joint of left thumb Unknown September 02, 2024 10:11am Arthritis of carpometacarpal (CMC) joint of right thumb Unknown September 02, 2024 10:11am Carpal tunnel syndrome, left Unknown September 02, 2024 10:11am Carpal tunnel syndrome, right Unknown Ma y 2024 10:11am Assessments Diagnosis Onset Date Resolution Status Admit Date Arthritis of carpometacarpal (CMC) joint of left thumb acute September 02 10:11am Arthritis of carpometacarpal (CMC) joint of right thumb acute September 02 10:11am Carpal tunnel syndrome, left acute September 02, 2024 10:11am Carpal tunnel syndrome, right acute September 02, 2024 10:11am Plan of Treatment Author Brigitte Yang [facility] Authored November 24, 2024 1:12 pm 84-year-old female with a hi story of a moderate - severe obstructive sleep apnea with some hypoxia that on the previous study was an AHI of 38 and oxygen desaturation down to 80%. Patient had right hemiparesis and feeling like her right leg was going to give out with some paresthesias. She had fallen or had been able to slide down to the floor when her leg was weak. She also had some shaking in her arm. She did not have any facial droop or speech abnormality. No change in vision. She did see Dr. Crooks who initiated a stroke work up. She is not having any worsening and her symptoms have improved. Her Carotid US preliminarily was no significant stenosis. We did order further stroke work up and look for seizure since she has the shaking. She also switched to plavix for stroke prevention as she was on asa with this event. 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 Workup below. No further signs or symptoms of a stroke. . She is tolerating her machine and is compliant with it. Download ending 04/09/2024 , she did wear the mask >4 hours 100% of the days, with nightly average usage 7 hours 31 minutes, residual AHI 5.9. We did adjust her pressures 2 visits ago as her AHI was 20.0. This has improved even further on this download reviewed today. Her strap is itchy. She is still feeling daytime hypersomnolence on some days and not others as it can be well controlled. She was going to discuss with PCP taking all meds that she can at night time. She complains of some dryness. She should try liners and biotene products. If she feels the mask leak it will wake her up and interrupt her sleep. She does get up to use the bathroom and can not always fall right back to sleep. She does need to try and get closer to 8 hours of sleep. . She has had medical issues that have made it likely more difficult to feel rested. She has had some sinus infections, covid x2, and shingles in the the last year. She had a stress test due to her daytime hypersomnia but this was negative as was her heart cath. She did then see cable former and was dx with asthma and now is on an inhaler. She does have some arthritis that wakes her up. PCP is treating her for vertigo that started again a few weeks ago after she was in the hospital for pleurisy and dehydration. She has a brain fog about her. She does have neck pain. She does sleep better when she takes her gabapentin. She is gaining weight she reports and seems upset about this. She is not exercising. Her son and his family have been living with her for 2 years while they built a house. They are moving out soon. She needs to join a gym and walk around a track and start to get regular exercise. I think she will overall feel better. . She denies any dizziness at this time and is drinking water and trying to hydrate. She has been working on this since recently dehydrated while at hospital. . Review and summary of old records: 02/21/2023 MRI 2 small foci of restricted diffusion involving left frontal parietal interface lobe measuring less than 5 mm in diameter. EEG routine normal MRA head normal Echo EF 55-60%, no mention of mass, thrombus, or vegetation Hgb A1C 5.7, est avg glucose 117, chol 130, trig 124, HDL 62, LDL 44 . . . Plan Change mask when she gets home as may be contributing to rise in AHI Join a gym or walking track during the winter months to stay/get more active Use liners and biotene products continue plavix and statin for secondary stroke prevention control risk factors with PCP 40 min or more of CV exercise at least 3 days a week download was reviewed and is as above download at next visit Continue to use machine whenever sleeping and should while traveling even if in hotel for one night Try to get more hours of sleep, closer to 8 every night May try some melatonin 3mg-10mg to increase her hours of sleep She could take a half an hour nap but should use the machine The patient was counseled on proper sleep hygiene and adequate hours of sleep. The patient was counselled on the risk of stroke, DE, and sudden with DIVINA, along with the need for compliance with CPAP/BiPAP treatment. I counseled the patient on stroke signs and symptoms and advised the patient to go immediately to the emergency room should these symptoms develop. The patient states understanding. This was discussed with the patient, all questions were answered and they agreed with the treatment plan. The patient is to call with any worsening of the condition or new symptoms. [facility] Authored September 02, 2024 10:29a m Extensive discussion about c urrent condition and treatment options available. We discussed repeat injections into the Bilateral thumb CMC joints and the Bilateral Carpal tunnel. Risks and benefits of the procedure fully explained to the patient and they voiced understanding. Patient was prepped and tolerated the injection well. Call with questions/concerns. Follow up in 4 months. 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 At this time, we've discussed nonoperative versus operative treatment options. - Regarding nonoperative treatment options, this would include an initial trial of cortisone injection, as well as night splinting. In general, cortisone injections are considered diagnostic, therapeutic, and prognostic. A positive response with reduction in symptoms following a cortisone injection, confirms the diagnosis, as well as provides therapeutic treatment with lessening of painful symptoms and temporary decreased compression across the median nerve. However, these results may be temporary, and further treatments either with repeat cortisone injection or surgical treatment may become necessary. In addition, a cortisone injection as prognostic in that if there is a positive response with reduction of symptoms following a cortisone injection, there will likely be improvement following surgical treatment. - Operative treatment would consist of carpal tunnel release - Patient was counseled that the nerve may recover regenerate 1 mm per day or 1 inch per month along the sensory fibers. Regarding motor fibers, we do not know at what point we are intervening in the release of the nerve compression. If there has been permanent injury to the nerve, the motor nerve may not be capable of full recovery, though at least nerve decompression would prevent progression or worsening with further loss of motor fibers. In the recovery of motor strength or function is seen as a bonus not as a guarantee . 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 At this time, I would recommend a course of nonoperative treatment/ continuance with nonoperative treatment including: Scheduled anti-inflammatory medication for control of arthritic flares, intra-articular corticosteroid injections as needed (no more frequently than 12 weeks apart), and supportive bracing during provocative activities (Pop-Pee, Thumb Spica). Patient was counseled that regular long-term use of anti-inflammatory medications may require further follow-up with patient's primary care physician for medical monitoring. - Should the patient fail to improve with nonoperative treatments, or should nonoperative treatments fail to provide lasting pain relief, we have discussed the possibility of future surgical treatments including: CMC arthrodesis versus trapeziectomy with ligament reconstruction. - Patient was counseled preoperatively that with thumb interposition arthroplasty despite best efforts, there may be some risk of subsidence in the future. In general we can expect up to 25% subsidence. If the patient develops symptomatic subsidence with secondary impingement, patient may require further nonoperative treatment modalities for pain relief versus revision interposition arthroplasty - Trial of topical voltaren gel - Trial of topical lidocaine patch - Trial of cortisone injection to CMC joint has resulted in symptom improvement and patient desires repeat injection - Trial turmeric supplement for generalized arthritis pain symptoms - Follow-up 4 months versus as needed for symptom recurrence INJECTION ADMINISTERED: - Patient was given an injection of the bilateral carpal tunnel and bilateral thumb CMC joints with: 0.5 cc Kenalog (40 mg/ 1 cc concentration) + 0.5 cc 1% Lidocaine plain without epinephrine at each location - This is the patient's sixth injection - Patient was counseled that there may be some swelling, inflammation, and mild pain in the area of injection for the first few days following treatment, which may be controlled with anti-inflammatory pain medication as needed. Patient was counseled that it may take time to note full resolution of pain and symptoms following the injection, and occasionally a series of injections is necessary for full or lasting relief of pain and symptoms. Patient was counseled that some individuals may experience skin hypopigmentation changes or fat atrophy in the area of steroid application following injection. Patient was counseled that if they are diabetic, there may be temporary changes in their blood sugar levels which may require more frequent blood sugar changes or temporary adjustment in their insulin coverage. - Patient was instructed to notify a physician if they note any concerning signs of infection including but not limited to fever, warmth, erythema, or ascending cellulitis in the area of steroid injection. Future Tests Future scheduled test information is unavailable Pending Tests Pending diagnostic test information is unavailable Future Visits Future appointment information is unavailable Referrals to Other Providers Referral information is unavailable Future Procedures Future procedure information is unavailable Future Medications Future medication information is unavailable Patient Instructions Patient instructions are unavailable
--- OUTSIDE RECORDS SUMMARY | 2024-11-25 06:00 | XMS_ITS ---
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 F/U -1 YEAR ASTHMA. * Medical History: Objective: * Vitals: Assessment: Plan: * Treatment: * * Electronic signature of Key Smith DO on 12/05/2024 at 08:50 AM EDT Sign off status: Pending Visit Status: O FF CANC (OFFICE CANCEL) * Provider: Harish Smith DO Date: 11/25/2024 Generated for Loreni kristin/Erin/eTransmitting on: 12/05/2024 08:50 AM EDT
--- OUTSIDE RECORDS SUMMARY | 2024-12-05 08:48 | XMS_ITS | Patient Health Record ---
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 Role Phone Ovi Crooks DO Primary Care Provider Rogelio Pearl Unavailable [phone] Allergies Allergen (clinical drug ingredient) Drug/Non Drug Allergy documented on EMR Reaction Allergy Type Onset Date Status Versed (uncoded) nausea and vomiting Allergy Active Results Component Value Reference Range Notes PROF CHEM 8 (BAS METB) Reviewed date:03/09/2024 05:32:33 PM Interpretation: Performing Lab: Notes/Report: [facility] , Sodium 141 136-145 mmol/L Potassium [...] Performing Lab: see note ML - [facility] LB SARS-CoV-2 Ag* Reviewed date:03/08/2024 03:33:10 PM Interpretation: Performing Lab: Notes/Report: [facility] , SARS-CoV-2 Ag NEGATIVE NEGATIVE and/or diagnosis of Covid-19 under section 564(b)(1) of the complexity testing. This test has been authorized only for circumstances exist justifying the authorization of authorized for the duration of the declaration that (EUA) for use by authorized laboratories certified under terminated or authorization is revoked sooner. Act, 21 U.S.C. 360bbb-3(b)(1), unless the declaration is emergency use of in vitro diagnostic tests for detection viruses or pathogens. The emergency use of this test is authorized by the FDA under an Emergency Use Authorization the detection of proteins from SARS-CoV-2, not for any other This test has not been FDA cleared or approved, but has been CLIA that meet the requirements to perform moderate or high Performing Lab: see note ML - [facility] LB Troponin I High Sensitivity Reviewed date:03/08/2024 03:33:10 PM Interpretation: Performing Lab: Notes/Report: [facility] , Troponin I High Sensitivity 9.3 4.0-51.3 pg/m L 99TH PERCENTILE = 51.4 PG/ML UNIVERSAL DEFINITION OF MYOCARDIAL INFARCTION. THE UPPER REFERENCE LIMIT (URL) OF TROPONIN, DEFINED THE 99TH DIAGNOSIS. CUT-OFF POINTS HAVE BEEN ESTABLISHED BASED ON THE FOURTH PERCENTILE OF cTnI DISTRIBUTION IN A REFERENCE POPULATION, WITH OTHER DIAGNOSTIC AND CLINICAL INFORMATION. NOTE: HIGH-SENSITIVITY TROPONIN ASSAY IS NOT INTENDED TO BE USED IN ISOLATION BUT SHOULD BE INTERPRETED IN CONJUNCTION HAS BEEN CONFIRMED THE DECISION THRESHOLD FOR FL Performing Lab: see note ML - [facility] LB UA RANDOM W or MICROSCOPIC Reviewed date:03/08/2024 03:33:10 PM Interpretation: Performing Lab: Notes/Report: Comment Cath specimen [facility] , Color Urine LT. YELLOW YELLOW Clarity Urine CLEAR CLEAR Specific Davis Urine 1.010 1.005-1.025 pH Urine 7.0 5.0-9.0 [...] Performing Lab: see note ML - [facility] LB MAGNESIUM Reviewed date:03/08/2024 03:33:10 PM Interpretation: Performing Lab: Notes/Report: [facility] , Magnesium 1.9 1.8-2.4 mg/dL Performing Lab: see note ML - [facility] LB LIVER PROFILE Reviewed date:03/08/2024 03:33:10 PM Interpretation: Performing Lab: Notes/Report: [facility] , Bilirubin Total 1.4 0.2-1.0 mg/dL Bilirubin Direct 0.4 0.0-0.2 mg/dL Aspartate Amino Transferase 178 15-37 U/L Alanine Aminotransferase 156 14-59 U/L Alkaline Phosphatase 89 46-116 U/L Total Protein 6.3 6.4-8.2 g/dL Albumin Level 3.2 3.4-5.0 g/dL Globulin 3.1 Albumin Globulin Ratio 1.0 Performing Lab: see note ML - [facility] LB LIPASE Reviewed date:03/08/2024 03:33:10 PM Interpretation: Performing Lab: Notes/Report: [facility] , Lipase 26.0 16.0-77.0 U/L Performing Lab: see note ML - [facility] LB LACTATE or LACTIC ACID Reviewed date:03/08/2024 03:33:10 PM Interpretation: Performing Lab: Notes/Report: [facility] , Lactate/Lactic Acid 1.2 0.4-2.0 mmol/L Performing Lab: see note ML - [facility] LB INFLUENZA A AND B AG Reviewed date:03/08/2024 03:33:10 PM Interpretation: Performing Lab: Notes/Report: [facility] , Influenza Virus A Antigen Negative below the detection limit of the test. Negative for Flu A protein antigen. Infection due to Flu A cannot be ruled out. Flu A antigen in the sample may be Influenza Virus B Antigen Negative cannot be ruled out. Flu B antigen in the sample may be Negative for Flu B protein antigen. Infection due to Flu B below the detection limit of the test. Performing Lab: see note ML - [facility] LB BNP Reviewed date:03/08/2024 03:33:10 PM Interpretation: Performing Lab: Notes/Report: [facility] , NT Pro B Type Natriuretic Pept 697.0 <=1800.0 pg/mL Performing Lab: see note ML - [facility] LB CBC AUTO DIFF Reviewed date:03/09/2024 05:32:33 PM Interpretation: Performing Lab: Notes/Report: [facility] , White Blood Count 9.2 4.0-11.0 [...] Performing Lab: see note ML - [facility] LB Reason For Referral No Information [...] Notes Problem Obstructive sleep apnea syndrome (disorder) (33306248) Obstructive sleep apnea (adult) (pediatric) (G47.33) Active confirmed Problem 087275585 Obesity, unspeci fied (E66.9) Active confirmed Problem 731437764 Mild persistent asthma, uncomplicated (J45.30) Active confirmed Problem Overactive bladder (577539384) Overactive bladder (N32.81) Active confirmed Problem 862007438 MCC (curre nt) use of 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 (Z79.51) Active confirmed Problem Coronary artery disease (59912861) Coronary artery disease (I25.10) Active confirmed Problem Paroxysmal atrial fibrillation (525132208) Paroxysmal atrial fibrillation (I48.0) Active confirmed Problem Benign essential hypertension (6608368) Benign essential hypertension (I10) Active confirmed Problem Multiple pulmonary nodules (788712826) Multiple pulmonary nodules (R91.8) Active confirmed Problem Hypercholesterolemia (16050202) Hypercholesterolemia (E78.00) Active confirmed Problem Secondary pulmonary hypertension (36721691) Other secondary pulmonary hypertension (I27.29) Active confirmed Problem Body mass index 30.0 0 to 34.99 (568779483369773) Body mass index [BMI] 31.0-31.9, adult (Z68.31) Active confirmed Problem Gastroesophageal reflux disease with esophagitis (disorder) (748171439) Gastroesophageal reflux disease with esophagitis without hemorrhage (K21.00) Active confirmed Problem History of COVID-19 (559141865995827353) History of COVID-19 (Z86.16) Active confirmed Encounters Encounter Location Date Provider Diagnosis Pulmonary Medicine [place] [address] [place] [address] 11/17/2024 Rogelio Smith Plan Of Treatment No Information Insurance Providers Payer Name Payer Address Payer Phone Subscriber Number Group Number Insured Name Patient Relationship to Insured Coverage Start Date Coverage End Date [place]IC[place] [address] [place] [address] [id number] Rupali Cruz Self - patient is the insured 8 [facility] MEDIC[facility] SUPPLEMENT [address] [place] [address] [id number] Rupali Cruz Self - patient is the insured 6 [...]
--- OUTSIDE RECORDS SUMMARY | 2024-12-05 08:48 | XMS_ITS | Clinical Summary ---
Author Organization [facility] Address [address] [place] [address] Care Team Providers Care Plastics Process Hand Name Role Phone Ovi Crooks DO Primary Care Provider [phone] Allergies Active Allergy Reactions Criticality Noted Date [...] mg EC tabletIndication s:Coronary artery disease of [place] heart with stable angina pectoris, unspecified vessel [...] 40 mg tabletIndication s:Coronary artery disease of [place] heart with stable angina pectoris, unspecified vessel or lesion type TAKE 1 TABLET AT BEDTIME 90 tablet 3 4 Active metoprolol succinate XL (Toprol-XL) 25 mg 24 hr tabletIndication s:Coronary artery disease of [place] heart with stable angina pectoris, unspecified vessel or lesion type TAKE 1 TABLET ONE TIME DAILY DIRECTED 90 tablet 3 4 Active atorvastatin (Lipitor) 40 mg tabletIndication s:Coronary artery disease of [place] heart with stable angina pectoris, unspecified vessel or lesion type Take 1 tablet (40 mg) by mouth in the morning. 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 06/29 Multiple pulmonary nodules 07/26/2022 Obstructive sleep apnea syndrome 07/26/2022 Overactive bladder 07/26/2022 Paroxysmal atrial fibrillation 07/26/2022 Secondary pulmonary hypertension 07/26/2022 Shortness of breath 07/26/2022 Abnormal stress test 05/11/2022 Overview (05/11/2022): Added automatically from request for surgery [id number] Immunizations Immunization Administration Dates Next Due Influenza, [...] 04/04/2021, 06/17/2020, Additional history exists Influenza Vaccine (#1) 2024 2, 03/10/2020, 03/27/2018, Additional history exists Pneumococcal Vaccine: [...] age to complete this topic Insurance MEDICARE [facility] Care Teams Plastics Process Hand Relationship Specialty Start Date End Date Ovi Crooks DO [address] [place] [id number] PCP - General 05/09/22
--- OUTSIDE RECORDS SUMMARY | 2024-12-05 08:48 | XMS_ITS | Clinical Summary ---
Author Organization [facility] Address [address] [place] [address] Care Team Providers Care Ticket Machine Operator Name Role Phone Ovi Crooks Cheyenne KENNEDY Primary Care Provider [phone] Madhavi Arriola DO Unavailable [phone] Allergies Active Allergy Reactions Criticality Noted [...] 75 MG tabletIndication s:Cerebral infarction, left hemisphere (HCC) Take 1 tablet (75 mg) by mouth [...] 07/26/2022 Hypertensive pulmonary arterial disease 07/27/19 23 longterm (current) use of 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 06/29 Multiple [...] (08/09/2023): Added automatically from request for surgery [id number] Encounters Date Type Department Care Team Description 11/06/[address] [place] [phone] Jackie Vegas, JAVON Cerebral infarction, left hemisphere (HCC) from Last 3 Months Family History Medical History Relation Name Comments [...] Health Maintenance Due Date Last Done Comments Influenza Vaccine (#1) 2024 , 02/17/2022, 03/10/2020, Additional history exists Pneumococcal Vaccine: 65+ Years Completed 7, 11/17/2016 Insurance MEDICARE [facility] Care Teams Ticket Machine Operator Relationship Specialty Start Date End Date Ovi Crooks DO PCP - General Internal Medicine 07/10/23 Madhavi Arriola DO [address] [place] [address] Referring Physician Neurology 04/14/24
--- OUTSIDE RECORDS SUMMARY | 2024-12-05 08:48 | XMS_ITS | Encounter Summary ---
Author Organization [facility] Address [address] [place] [address] Care Team Providers Care Music Researcher Name Role Phone Ovi Crooks Primary Care Provider Madhavi Arriola DO Unavailable [phone] Reason for Visit * Reason Comments Med Refill Encounter Details Date Type Department Care Team (Late st Contact Info) Description 11/06/2024 Refill [facility] [address] [place] [phone] Jackie Vegas, HISTORIC SITE ADMINISTRATOR [address] [facility] , [address] [phone] Cerebral infarction, left hemisphere (HCC) Social History Tobacco Use Types Packs/Day Years [...] as of this encounter Visit Diagnoses Diagnosis Cerebral infarction, left hemisphere (HCC) Unspecified cerebral artery occlusion with cerebral infarction documented in this encounter Care Teams Music Researcher Relationship Specialty Start Date End Date Ovi Crooks DO PCP - General Internal Medicine 07/10/23 Madhavi Arriola DO [address] [place] [address] Referring Physician Neurology 04/14/24 documented as of this encounter
--- OUTSIDE RECORDS SUMMARY | 2024-12-05 08:48 | XMS_ITS | Encounter Summary ---
Author Organization [facility] Address [address] [place] [address] Care Team Providers Care Build Engineer Name Role Phone Ovi Crooks DO Primary Care Provider [phone] Madhavi Arriola DO Unavailable [phone] Reason for Visit * Reason Comments Med Refill Encounter Details Date Type Department Care Team (Late st Contact Info) Description 05/18/2024 Refill [facility] [address] [facility] [address] [place] [phone] Celeste Steinberg MD [address] [facility] [address] [place] [address] LPRD (laryngopharyngeal reflux disease) Social History Tobacco [...] obstruction documented in this encounter Care Teams Build Engineer Relationship Specialty Start Date End Date Ovi Crooks DO PCP - General Internal Medicine 07/10/23 Madhavi Arriola DO [address] [place] [address] Referring Physician Neurology 04/14/24 documented as of this encounter
--- OUTSIDE RECORDS SUMMARY | 2024-12-05 08:50 | XMS_ITS | Encounter Summary ---
Author Organization [facility] Address [address] [place] [address] Care Team Providers Care Band Tumbler Name Role Phone Ovi Crooks Primary Care Provider [phone] Madhavi Arriola DO Unavailable [phone] Encounter Details Date Type Department Care Team (Late st Contact Info) Description 09/13/2023 Clinisync Result Encounter [facility] Department Unsolicited Celeste Steinberg MD [address] [place] [address] Social History Tobacco Use Types Packs/Day Years [...] EDT Narrative 09/13/2023 2:10 PM EDT The [address] [address] Fluoroscopy Report Signed Patient: RUPALI RICHARDSON MR#: [id number] : 1940 Acct:[id number] Age/Sex: 82 / F ADM Date: 09/13/23 Loc: [place] Attending Dr: Celeste Steinberg M.D. Ordering Physician: Celeste Steinberg M.D. Date of Service: 09/13/23 Procedure(s): FL modified barium swallow Accession Number(s): [id number] cc: Ovi Crooks D.O.; Celeste Steinberg M.D. [place] [address] Patient Name: RUPALI RICHARDSON MRN: [id number] date: 1940 Sex: F Assigned Patient Location: [place] Current Patient Location: [place] Accession/Order Number: [id number] Exam Date: 09/13/2023 13:00 Report Date: 09/13/2023 [...] Signed By: 09/13/23 1410 DD/ 1407 TD/TT: Account Technician: Procedure Note Radiology, Radiologist, MD - 09/13/2023 [place] [address] Fluoroscopy Report Signed Patient: RUPALI RICHARDSON LMR#: [id number] : 1940cct:[id number] Age/Sex: 82 / FADM Date: 09/13/23 Loc: [place] Attending Dr: Celeste Steinberg M.D. Ordering Physician: Celeste Steinberg M.D. Date of Service: 09/13/23 Procedure(s): FL modified barium swallow Accession Number(s): [id number] cc: Ovi Crooks D.O.; Celeste Steinberg M.D. The [place] [address] Patient Name: RUPALI RICHARDSON MRN: [facility]:[id number] date: 1940 Sex: F Assigned Patient Location: [place] Current Patient Location: [place] Accession/Order Number: [id number] Exam Date: 09/13/2023 13:00 Report Date: 09/13/2023 [...] M.D. Signed By:09/13/23 1410 DD/ 1407 TD/TT: Account Technician: us Celeste Steinberg MD IMG XR PROCEDURES Final Resul t documented in this encounter Visit Diagnoses Not on filedocumented in this encounter Care Teams Band Tumbler Relationship Specialty Start Date End Date Ovi Crooks DO PCP - General Internal Medicine 07/10/23 Madhavi Arriola DO [address] [place] [address] Referring Physician Neurology 04/14/24 documented as of this encounter
--- OUTSIDE RECORDS SUMMARY | 2024-12-05 08:50 | XMS_ITS | Encounter Summary ---
Author Organization [facility] Address [address] [place] [address] Care Team Providers Care Lie Detector Operator Name Role Phone Ovi Crooks DO Primary Care Provider [phone] Madhavi Arriola DO Unavailable [phone] Encounter Details Date Type Department Care Team (Late st Contact Info) Description 11/05/2023 Orders Only [facility] [address] [facility] [address] [place] [phone] Celeste Steinberg MD [address] [facility] [address] [place] [address] Social History Tobacco Use Types Packs/Day Years [...] Procedure Name Priority Date/Time Associated Diagnosis Comments WHEEL AND CASTER REPAIRER EVAL AND TREAT Routine 09/13/2023 4:13 PM EDT documented in this encounter Results * WHEEL AND CASTER REPAIRER eval and treat (09/13/2023 4:13 PM EDT) us Celeste Steinberg MD WHEEL AND CASTER REPAIRER ORDERABLES Final Result documented in this encounter Visit Diagnoses Not on filedocumented in this encounter Care Teams Lie Detector Operator Relationship Specialty Start Date End Date Ovi Crooks DO PCP - General Internal Medicine 07/10/23 Madhavi Arriola DO [address] [place] [address] Referring Physician Neurology 04/14/24 documented as of this encounter
== END 2024-12-05 08:43 | disposition home or self-care (01) ==
PROVIDERS: PCP Internal Medicine; Visit Provider Internal Medicine
DX: E55.9 Vitamin D deficiency, unspecified (principal)
CPT/HCPCS: 36415; 82306

== ENCOUNTER 2024-12-22 10:25 | Day surgery (SDC) | payer MEDICARE, BC, SELFPAY ==
--- OUTSIDE RECORDS SUMMARY | 2024-12-22 10:32 | XMS_ITS | CCD ---
Author Organization [facility] Care Team Providers Care 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 Name Role Phone Zahler, Quinn Unavailable Unavailable Zahler, Quinn Unavailable Unavailable Zahler, Quinn Unavailable Unavailable OVI CROOKS~[id number] UNKNOWN Unavailable Unavailable Zahler, Quinn Unavailable Unavailable Zahler, Quinn Unavailable Unavailable Erliner, Quinn Unavailable Unavailable OVI CROOKS~[phone] UNKNOWN Unavailable Unavailable MD Brina Morrissey Attending Provider [phone] Brina Morrissey Unavailable Ovi Crooks Unavailable DR OVI CROOKS Primary Care Unavailable CRISTOBAL .MARY Admitting Unavailable CRISTOBAL .MARY Attending Unavailable JESSICA ., DR ELIZABETH Cerna Attending Unavailable JESSICA ., DR ELIZABETH Cerna Consulting Unavailable JESSICA ., DR ELIZABTEH Cerna Admitting Unavailable HANG, DR DIOR Primary Care Unavailable HALKER ., [...] NARMARIA C Admitting Elodia vailable LAKSHMIPATHY ., NARMARIA C [...] ., NARENDRANATH Admitting Elodia vailable LAKSHMIPATHY ., NARENDDREWATH Attending Elodia vailable BALL, DR DIOR Primary [...] Unavailable Malena WILLIS, Isaac Chatterjee Attending Unavailable Ovi Crooks DO Primary Care Provider [phone] Ghanshyam WILLIS, Brina Alas Attending Provider [phone] Ovi Crooks DO Attending Provider [phone] Brigitte Yang APRN Attending Provider Ovi Crooks DO Primary Care Provider [phone] Ovi Crooks DO Attending Provider [phone] Allergies Allergy Classification Reported Allergen(s) Allergy Type Date of Onset Reaction(s) Facility (1 source) Midazolam Drug Allergy 7 [facility] Repository (6 sources) Midazolam; Translations: [MIDAZOLAM] Drug Allergy 3 Nausea And Vomiting [facility] Repository Medications Current Medications Medication Drug Class(es) [...] Status: Taking; Provider: Hang Dior ( ) Complies with drug therapy take 1 tablet by jose th every [...] INHALATION Twice daily July 19, 2023 12:00am Complies with drug therapy Start: 07-31-2022 take 2 puff(s) by in [...] incidence of candidiasis. Do not swallow.. Active cholecalciferol 1.25 mg oral tablet (1 source) Vitamin D Start: 12-08-2024 take 1 tablet by mouth once Cholecalciferol (Vitamin D3) 1,250 mcg (50,000 unit) tablet Active 1250 MCG PO Once December 08, 2024 12:00am Complies with drug therapy ciprofloxacin 3 mg/ml ophthalmic solution (5 sources) Quinolone Antimicrobial Start: 07-17-2022 take 2 drop(s) into the eye(s) every four hours Ciprofloxacin HCl 0.3 % 2 drops Ophthalmic every 4 hours while awake for 7 days Jun, Active clonazePAM 0.5 mg oral tablet (1 source) Benzodiazepine Start: 12-08-2024 take 1 tablet by mouth once daily 30 minutes before bedtime Clonazepam 0.5 mg tablet Active 0.5 MG PO Daily at bedtime December 08, 2024 12:00am administer 30 minutes before bedtime Complies with drug therapy clopidogrel 75 mg oral tablet (16 sources) [id number] Platelet Inhibitor Start: 04-17-2023 End: 01-16-2025 take 1 tablet by mouth once daily Clopidogrel 75 mg tablet Active 75 MG PO Daily July 03, 2023 1:00am FreeTextSi tablet Orally Once a day; Note: Source Status: Start; Provider: Hang Quinn Complies with drug therapy CPAP Machine (18 sources) CPAP Machine Act susu fexofenadine hydrochloride 180 mg oral tablet (1 source) Histamine-1 Receptor Antagonist Start: 12-08-2024 take 1 tablet by mouth once daily Fexofenadine 180 mg tablet Active 180 MG PO Daily December 08, 2024 12:00am Complies with drug therapy hydroCHLOROthiazide 25 mg oral tablet (20 sources) Thiazide Diuretic Start: 05-11-2024 Hydrochlorothiazide 25 mg tablet Active 0 .ROUTE .COMPLEX May 11, 2024 8:27pm TAKE 1 TABLET EVERY DAY Start: 08-28-2023 End: 05-11-2024 Hydrochlorothiazide 25 mg ta blet Active 0 .ROUTE .COMPLEX May 11, 2024 8:27pm TAKE 1 TABLET EVERY DAY Complies with drug therapy Start: 08-28-2023 End: 05-11-2024 Hydrochlorothiazide 25 mg [...] Status: Taking; Provider: Hang Dior ( ) Complies with drug therapy take 1 tablet by jose every twenty-four hours Isosorbide Mononitrate ER 30 MG 1 tablet in the morning Orally Once a day Active losartan potassium 50 mg oral tablet (20 sources) Angiotensin 2 Receptor Gustavo Start: 09-04-2024 Losartan 50 mg tablet Active 0 .ROUTE .COMPLEX September 04, 2024 1:11pm TAKE 1 TABLET EVERY DAY Complies with drug therapy Start: 07-03-2023 End: 09-04-2024 take 1 tablet by mouth once daily Losartan 50 mg tablet Discontinued 50 MG PO Daily July 03, 2023 1:00am September 04, 2024 1:11pm FreeTextSig: TAKE 1 TABLET EVERY DAY; Note: Source Status: Taking; Provider: Hang Dior ( ) omeprazole 40 mg delayed release oral capsule (20 sources) Proton Pump Inhibitor Start: 03-22-2024 Omeprazole 40 mg capsule,delayed release(DR/EC) Active 0 .ROUTE .COMPLEX 90 March 22, 2024 12:46pm TAKE 1 CAPSULE ONE TIME DAILY 30 MINUTES BEFORE MORNING MEAL Complies with drug therapy Start: 07-03-2023 End: 03-22-2024 take 1 capsule by mouth once daily Omeprazole 40 mg capsule,delayed release(DR/EC) Discontinued 40 MG PO Daily July 03, 2023 1:00am March 22, 2024 12:46pm FreeTextSi capsule 30 minutes before morning meal Orally Once a day; Note: Source Status: Taking; Provider: Hang Quinn Start: 07-17-2022 take 1 capsule by mo [facility] once daily Omeprazole 40 MG 1 capsule 30 minutes before morning meal Orally Once a day Jun, Active 24 hr oxybutynin chloride 15 mg extended release oral tablet (20 sources) Cholinergic Muscarinic Antagonist Start: 12-10-2023 End: 09-28-2024 Oxybutynin Chloride 15 mg tablet extended release 24hr Active 0 .ROUTE .COMPLEX September 28, 2024 5:30pm TAKE 1 TABLET EVERY DAY Complies with drug therapy Start: 09-28-2023 oxybutynin XL (Ditropan-XL) 15 MG [...] as needed Orally Twice a day Not-Taking escitalopram 10 mg oral tablet (20 sources) Serotonin Reuptake Inhibitor Start: 024 End: Escitalopram Oxalate 10 mg tablet Discontinued 0 .ROUTE .COMPLEX December 10, 2023 6:54am September 28, 2024 5:30pm TAKE 1 TABLET EVERY DAY Start: 07-03-2023 End: 07-16-2023 take 1 tablet by mouth once daily Escitalopram Oxalate 10 mg tablet Discontinued 10 MG PO Daily July 03, 2023 1:00am July 16, 2023 5:05pm FreeTextSig: TAKE 1 TABLET EVERY DAY; Note: Source Status: Taking; Provider: Hang Dior ( ) famotidine 20 mg oral tablet (12 sources) Histamine-2 Receptor Antagonist Start: 11-12-2023 End: 08-25-2024 take 1 tablet by mouth once daily at bedtime Famotidine 20 mg tablet Discontinued 20 MG PO Daily at bedtime February 25, 2024 12:00am August 25, 2024 10:00am fluticasone propionate 0.05 mg/actuat metered dose nasal spray (7 sources) Corticosteroid take 1 spray(s) nasal route once daily Flonase 50 MCG/ACT 1 spray in each nostril Nasally Once a day Not-Taking gabapentin 100 mg oral capsule (20 sources) Anti-epileptic Agent Start: 05-11-2024 End: 12-08-2024 Gabapentin 100 mg capsule Discontinued 0 .ROUTE .COMPLEX May 11, 2024 8:27pm December 08, 2024 10:37am TAKE 1 CAPSULE AT BEDTIME Start: 05-11-2024 Gabapentin 100 mg capsule Active 0 .ROUTE .COMPLEX May 11, 2024 8:27pm TAKE 1 CAPSULE AT BEDTIME Start: 07-03-2023 End: 05-11-2024 take 1 capsule by mouth at bedtime Gabapentin 100 mg capsule Discontinued 100 MG PO July 03, 2023 1:00am May 11, 2024 8:27pm FreeTextSig: TAKE 1 CAPSULE AT BEDTIME; Note: Source Status: Start; Refills: 3; Qty: 90 Capsule; Provider: Hang Dior ( ) loratadine 10 mg oral tablet (7 sources) take 1 tablet by mouth once daily Claritin 10 MG 1 tablet Orally Once a day Not-Taking 24 hr metoprolol succinate 25 mg extended release oral tablet (20 sources) beta-Adrenergic Gustavo Start: 06-19-2023 End: 09-15-2024 take 1 tablet by mouth once daily Metoprolol Succinate 25 mg tablet extended release 24 hr Discontinued 25 MG PO Daily July 03, 2023 1:00am September 15, 2024 12:44pm FreeTextSi tablet Orally Once a day; Note: Source Status: Taking; Provider: Hang Dior ( ) take 1 tablet by jose th every twenty-four hours Metoprolol Succinate ER 25 MG 1 tablet Orally Once a day Active pantoprazole 40 mg delayed release oral tablet [...] Onset: 07-26-2022 08-09-2023 Chronic Chronic kidney disease (9 sources) Chronic kidney disease; Translations: [Chronic kidney disease, unspecified] 08-02-2023 Chronic Coronary atherosclerosis and other heart disease (20 sources) Coronary arteriosclerosis; Translations: [Atherosclerotic heart disease of [place] coronary artery without angina pectoris] Onset: 06-07-2022 Chronic Deficiency and other anemia (8 sources) Anemia; Translations: [Anemia, unspecified] 08-02-2023 Episodic Diabetes mellitus without complication (2 sources) Hyperglycemia; Translations: [Hyperglycemia, unspecified] 09-03-2024 Episodic Disorders of lipid metabolism (20 sources) [...] Onset: 08-05-2015 Chronic Miscellaneous mental health disorders (8 sources) Primary insomnia; Translations: [Primary insomnia] Onset: [...] current use of drug therapy; Translations: [Other fpc (current) drug therapy] Episodic Other and ill-defined cerebrovascular disease (16 sources) Cerebral atherosclerosis; Translations: [Cerebral atherosclerosis] Onset: [...] urethra (1 source) Overactive bladder Chronic Other diseases of kidney and ureters (3 sources) Renal mass; Translations: [Other specified disorders of kidney and ureter] 10-01-2024 Chronic Comment on above: CT: hypodense nodule left nodule - 02/2024,MRI spine: 1.4cm left renal cyst - 08/2024,MRI: 1.3cm left renal hemorrhagic cyst - 09/2024- recheck in year CT: hypodense nodule left kidney - 02/2024,MRI spine: 1.4cm left renal cyst - 08/2024,MRI: 1.3cm left renal hemorrhagic cyst - 09/2024MRI spine: 1.4cm left renal cyst - 10/2024 (repeat in year - 09/2025) Other ear and sense organ disorders (1 source) Impacted cerumen; Translations: [Impacted cerumen, right ear] Episodic Other injuries and conditions due to external causes (1 source) History of fall; Translations: [History of falling] Episodic Other liver diseases (11 sources) Elevated liver enzymes level; Translations: [High [...] pulmonary nodule Episodic Other lower respiratory disease (15 sources) Other nonspecific abnormal finding of lung field; Translations: [Ground glass opacity present on imaging of lung] Onset: 07-26-2022 Episodic Other lower respiratory disease (7 sources) Hypoxia; Translations: [Hypoxemia] Onset: 10-08-2023 10-08-2023 Episodic Other lower respiratory disease (6 sources) Pleuritic pain; Translations: [Pleurodynia] 03-15-2024 Episodic [...] Episodic Other nutritional; endocrine; and metabolic disorders (3 sources) Hypercalcemia; Translations: [Hypercalcemia] Onset: 07-21-2017 09-03-2024 Chronic Other nutritional; endocrine; and metabolic disorders (13 sources) Obesity; Translations: [Obesity, unspecified] Onset: 01-05-2023 [...] Resolved: 08-09-2023 Episodic Other upper respiratory disease (8 sources) Hoarse; Translations: [Dysphonia] 07-20-2023 Episodic Paralysis (5 sources) Right hemiparesis; Translations: [Hemiplegia, unspecified affecting right dominant side] Onset: 10-08-2023 10-08-2023 Chronic Georgina-; endo-; and myocarditis; cardiomyopathy (except that caused by tuberculosis or sexually transmitted disease) (1 source) Acute pericarditis; Translations: [Acute pericarditis, unspecified] Episodic Pneumonia (except that caused by tuberculosis or sexually transmitted disease) (8 sources) Pneumonia; Translations: [Pneumonia, unspecified organism] 03-15-2024 Episodic Pulmonary heart disease (19 sources) Secondary pulmonary hypertension; Translations: [Other secondary pulmonary hypertension] Onset: 07-26-2022 08-09-2023 Chronic Residual codes; unclassified (20 sources) Obstructive sleep apnea syndrome; Translations: [Obstructive sleep apnea (adult) (pediatric)] Onset: 10-06-2016 07-18-2023 Chronic Residual codes; unclassified (9 sources) Obstructive sleep apnea (adult) (pediatric); Translations: [Obstructive sleep apnea (adult)(pediatric)] Chronic Residual codes; unclassified (7 sources) Hypersomnia; Translations: [Hypersomnia, unspecified] Onset: 10-08-2023 10-08-2023 Chronic Residual codes; unclassified (1 source) Postmenopausal state; Translations: [Asymptomatic menopausal state] Episodic Residual codes; unclassified (7 sources) Sleep deprivation; Translations: [Sleep deprivation] Onset: 10-08-2023 10-08-2023 Episodic Spondylosis; intervertebral disc disorders; other back problems (20 sources) Lumbar spondylosis; Translations: [Spondylosis without myelopathy or radiculopathy, lumbar region] Onset: 12-04-2014 Chronic Comment on above: MRI: L1-2 mod spinal canal stenosis, L2-3 mod right foraminal stenosis, L3-4 mod right foraminal stenosis, L4-5 mod B/L foraminal stenosis, L5S1 mod left foraminal stenosis - 11/2024 Unclassified (4 sources) LOW BACK PAIN, UNSPECIFIED; [...] 04-28-2022 Episodic Other aftercare (1 source) Other continuous churn buttermaker (current) drug therapy; Translations: [OTH STATEMENT CLERKS MANAGER CURRENT DRUG THERAPY] Onset: 09-20-2021 Episodic Other aftercare (5 sources) Long-term current use of inhaled steroid; Translations: [alf (current) use of 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] Onset: 07-26-2022 [...] Test Name Value Interpretation Reference Range Facility No Panel InformationOrdered By: Ovi Crooks on 12-05-2024 25-Hydroxy Vitamin D Total 28.3 ng/mL [facility] Comment on above: <20 ng/mL Vit D defi cient20-<30 ng/mL Vit D [id number] ng/mL Vit D sufficient>100 ng/mL Potential Toxicity Glucose mean value [Mass/vol ume] in Blood Estimated from glycated hemoglobinOrdered By: Ovi Crooks on 10-23-2024 Average glucose Estimated from glycated hemoglobin (Bld) [Mass/Vol] 123 mg/dL [facility] Hemoglobin A1c percentageOrd ered By: Ovi Crooks on 10-23-2024 HbA1c (Bld) [Mass fraction] 5.9 % 4.5-6.2 [facility] Comment on above: ADA RECOMMENDED LIMI T 4.0 - 6.0ADA THERAPEUTIC TARGET < 7.0ACTION SUGGESTED> 7.0 Laboratory - Chemistry and C hemistry - challengeOrdered By: Ovi Crooks on 06-26-2025 Albumin [Mass/Vol] 3.3 g/dL Low 3.4-5.0 [facility] Calcium [Mass/Vol] 10.0 mg/dL 8.5-10.1 [facility] No Panel InformationOrdered By: Ovi Crooks on 10-23-2024 25-Hydroxy Vitamin D Total 26.8 ng/mL [facility] Comment on above: <20 ng/mL Vit D defi cient20-<30 ng/mL Vit D [id number] ng/mL Vit D sufficient>100 ng/mL Potential Toxicity Parathyroid Hormone (Intact) 43 pg/mL 15-65 [facility] Comment on above: Performed at: [facility] [place] [id number] Director: Davie Montez PhD, Phone: [phone] Phosphorus Level 3.0 mg/dL 2.6-4.7 [facility] Estimated glomerular filtrat ion rate (GFR) non- Americanon 09-30-2024 GFR/1.73 sq M.predicted among non-blacks MDRD (S/P/Bld) [Vol rate/Area] 51 mL/min/{1.73_m2} Low >=60 mL/min/1.73m 2 [facility] Laboratory - Chemistry and C hemistry - challengeon 09-30-2024 Creatinine [Mass/Vol] 1.04 mg/dL High 0.55-1.02 [facility] GFR/1.73 sq M.predicted MDRD (S/P/Bld) [Vol rate/Area] mL/min/{1.73_m2} >=60 mL/min/1.73m 2 [facility] Basophils Auto (Bld) [#/Vol] on 09-03-2024 Basophils (Bld) [#/Vol] 0.0 10 3/uL 0.0-0.1 [facility] Basophils/100 WBC Auto (Bld) on 09-03-2024 Basophils/100 WBC (Bld) 0.1 % Low 0.2-2.0 [facility] Cholesterol in LDL Calc [Mas s/Vol]on 09-03-2024 Cholesterol in LDL [Mass/Vol] 42.0 mg/dL [facility] Comment on above: <100 mg/dl [id number] 0-129 mg/dl NEAR OR ABOVE [id number] mg/dl BORDERLINE [id number] mg/dl HIGH>190 mg/dl VERY HIGH Cholesterol in VLDL Calc [Ma ss/Vol]on 09-03-2024 Cholesterol in VLDL [Mass/Vol] 14.4 mg/dL [facility] Eosinophils/100 WBC Auto (Bl d)on 09-03-2024 Eosinophils/100 WBC (Bld) 0.1 % Low 0.9-7.0 [facility] Erythrocyte distribution wid th Auto (RBC) [Ratio]on 09-03-2024 Erythrocyte distribution width (RBC) [Ratio] 13.2 % 11.0-15.0 [facility] Estimated glomerular filtrat ion rate (GFR) non- Americanon 09-03-2024 GFR/1.73 sq M.predicted among non-blacks MDRD (S/P/Bld) [Vol rate/Area] 39 mL/min/{1.73_m2} Low >=60 mL/min/1.73m 2 [facility] Globulin Calc (S) [Mass/Vol] on 09-03-2024 Globulin (S) [Mass/Vol] 3.3 g/dL [facility] Hematocrit Auto (Bld) [Volum e fraction]on 09-03-2024 Hematocrit (Bld) [Volume fraction] 37.6 % 36.0-48.0 [facility] Hemoglobin [Mass/volume] in Bloodon 09-03-2024 Hemoglobin (Bld) [Mass/Vol] 12.8 g/dL 12.0-16.0 [facility] Laboratory - Chemistry and C hemistry - challengeon 09-03-2024 Albumin [Mass/Vol] 3.7 g/dL 3.4-5.0 [facility] ALP [Catalytic activity/Vol] 75 U/L 46-116 [facility] ALT [Catalytic activity/Vol] 21 U/L 14-59 [facility] AST [Catalytic activity/Vol] 13 U/L Low 15-37 [facility] Bilirubin [Mass/Vol] 0.7 mg/dL 0.2-1.0 [facility] Calcium [Mass/Vol] 10.6 mg/dL High 8.5-10.1 [facility] Chloride [Moles/Vol] 103 mmol/L 98-107 [facility] Cholesterol [Mass/Vol] 129 mg/dL <=200 [facility] Cholesterol in HDL [Mass/Vol] 73 mg/dL High 40-60 [facility] Comment on above: > or =60 mg/dl - LOW CARDIOVASCULAR RISK<40 mg/dl - HIGH CARDIOVASCULAR RISK CO2 [Moles/Vol] 32.4 mmol/L High 21.0-32.0 [facility] Creatinine [Mass/Vol] 1.32 mg/dL High 0.55-1.02 [facility] GFR/1.73 sq M.predicted MDRD (S/P/Bld) [Vol rate/Area] 47 mL/min/{1.73_m2} Low >=60 mL/min/1.73m 2 [facility] Glucose [Mass/Vol] 149 mg/dL High 74-106 [facility] Potassium [Moles/Vol] 3.6 mmol/L 3.5-5.1 [facility] Protein [Mass/Vol] 7.0 g/dL 6.4-8.2 [facility] Sodium [Moles/Vol] 139 mmol/L 136-145 [facility] Triglyceride [Mass/Vol] 72 mg/dL <=150 [facility] Urea nitrogen [Mass/Vol] 20.0 mg/dL High 7.0-18.0 [facility] Urea nitrogen/Creatinine [Mass ratio] 15.2 mg/mg [facility] Laboratory - Hematology and Cell countson 09-03-2024 Immature granulocytes/100 WBC (Bld) 0.4 % 0.0-0.5 [facility] Leukocytes [#/volume] correc jonnie for nucleated erythrocytes in Blood by Automated counon 09-03-2024 WBC corrected for nucl RBC Auto (Bld) [#/Vol] 10.8 10 3/uL 4.0-11.0 [facility] Lymphocytes Auto (Bld) [#/Vo l]on 09-03-2024 Lymphocytes (Bld) [#/Vol] 1.3 10 3/uL 1.2-3.8 [facility] Lymphocytes/100 WBC Auto (Bl d)on 09-03-2024 Lymphocytes/100 WBC (Bld) 11.6 % Low 20.5-60.0 [facility] MCH Auto (RBC) [Entitic mass ]on 09-03-2024 MCH (RBC) [Entitic mass] 30.2 pg 26.7-34.0 [facility] MCHC Auto (RBC) [Mass/Vol]on 09-03-2024 MCHC (RBC) [Mass/Vol] 34.0 g/dL 29.9-35.2 [facility] MCV Auto (RBC) [Entitic vol] on 09-03-2024 MCV (RBC) [Entitic vol] 88.7 fL 81.0-99.0 [facility] Monocytes Auto (Bld) [#/Vol] on 09-03-2024 Monocytes (Bld) [#/Vol] 0.4 10 3/uL 0.3-0.8 [facility] Monocytes/100 WBC Auto (Bld) on 09-03-2024 Monocytes/100 WBC (Bld) 3.8 % 1.7-12.0 [facility] Neutrophils Auto (Bld) [#/Vo l]on 09-03-2024 Neutrophils (Bld) [#/Vol] 9.1 10 3/uL High 1.4-6.5 [facility] Neutrophils/100 WBC Auto (Bl d)on 09-03-2024 Neutrophils/100 WBC (Bld) 84.0 % High 43.0-75.0 [facility] No Panel Informationon 09-03 Eosinophils # (Auto) 0.0 10 3/uL 0.0-0.7 [facility] Immature Granulocyte # (Auto) 0.04 10 3/uL High 0.00-0.03 [facility] Platelet mean volume Auto (B ld) [Entitic vol]on 09-03-2024 Platelet mean volume (Bld) [Entitic vol] 11.8 fL 9.5-13.5 [facility] Platelets Auto (Bld) [#/Vol] on 09-03-2024 Platelets (Bld) [#/Vol] 213 10 3/uL 150-450 [facility] RBC Auto (Bld) [#/Vol]on RBC (Bld) [#/Vol] 4.24 10 6/uL 4.20-5.40 [facility] Serum or plasma albumin/glob ulin mass ratioon 09-03-2024 Albumin/Globulin [Mass ratio] 1.1 {ratio} [facility] Serum or plasma anion gap de terminationon 09-03-2024 Anion gap [Moles/Vol] 7.2 mmol/L [facility] Serum or plasma total choles terol/high density lipoprotein (HDL) cholesterol mass gavin 09-03-2024 Cholesterol.total/Chol esterol in HDL [Mass ratio] 1.8 {ratio} [facility] Comment on above: 3.3 - 4.4 LOW RISK4. 4 - 7.1 AVERAGE RISK7.1 - 11.0 MODERATE RISK>11.0 HIGH RISK Basophils Auto (Bld) [#/Vol] on 03-09-2024 Basophils (Bld) [#/Vol] Automated basophil count 0.0-0.1 [facility] Basophils/100 WBC Auto (Bld) on 03-09-2024 Basophils/100 WBC (Bld) Automated basophil % Low 0.2-2.0 [facility] Eosinophils/100 WBC Auto (Bl d)on 03-09-2024 Eosinophils/100 WBC (Bld) Automated eosinophil % Low 0.9-7.0 [facility] Erythrocyte distribution wid th Auto (RBC) [Ratio]on 03-09-2024 Erythrocyte distribution width (RBC) [Ratio] Erythrocyte distribution width [Ratio] by Automated count 11.0-15.0 [facility] Estimated glomerular filtrat ion rate (GFR) non- Americanon 03-09-2024 GFR/1.73 sq M.predicted among non-blacks MDRD (S/P/Bld) [Vol rate/Area] Estimated glomerular filtration rate (GFR) non- Low >=60 mL/min/1.73m 2 [facility] Hematocrit Auto (Bld) [Volum e fraction]on 03-09-2024 Hematocrit (Bld) [Volume fraction] Hematocrit [Volume Fraction] of Blood by Automated count Low 36.0-48.0 [facility] Hemoglobin [Mass/volume] in Bloodon 03-09-2024 Hemoglobin (Bld) [Mass/Vol] Hemoglobin [Mass/volume] in Blood Low 12.0-16.0 [facility] Laboratory - Chemistry and C hemistry - challengeon 03-09-2024 Calcium [Mass/Vol] 8.9 mg/dL 8.5-10.1 [facility] Chloride [Moles/Vol] 103 mmol/L 98-107 [facility] CO2 [Moles/Vol] 21.8 mmol/L 21.0-32.0 [facility] Creatinine [Mass/Vol] 1.74 mg/dL High 0.55-1.02 [facility] GFR/1.73 sq M.predicted MDRD (S/P/Bld) [Vol rate/Area] 34 mL/min/{1.73_m2} Low >=60 mL/min/1.73m 2 [facility] Glucose [Mass/Vol] 164 mg/dL High 74-106 [facility] Potassium [Moles/Vol] 2.9 mmol/L Critically low 3.5-5.1 [facility] Comment on above: RESULTS CALLED TO KAROL VAZQUEZ RN @BY Cecile San [id number] Sodium [Moles/Vol] 141 mmol/L 136-145 [facility] Urea nitrogen [Mass/Vol] 21.0 mg/dL High 7.0-18.0 [facility] Urea nitrogen/Creatinine [Mass ratio] 12.1 mg/mg [facility] Laboratory - Hematology and Cell countson 03-09-2024 Immature granulocytes/100 WBC (Bld) 0.7 % High 0.0-0.5 [facility] Leukocytes [#/volume] correc jonnie for nucleated erythrocytes in Blood by Automated counon 03-09-2024 WBC corrected for nucl RBC Auto (Bld) [#/Vol] Leukocytes [#/volume] corrected for nucleated erythrocytes in Blood by Automated coun 4.0-11.0 [facility] Lymphocytes Auto (Bld) [#/Vo l]on 03-09-2024 Lymphocytes (Bld) [#/Vol] Lymphocytes [#/volume] in Blood by Automated count 1.2-3.8 [facility] Lymphocytes/100 WBC Auto (Bl d)on 03-09-2024 Lymphocytes/100 WBC (Bld) Lymphocytes/100 leukocytes in Blood by Automated count Low 20.5-60.0 [facility] MCH Auto (RBC) [Entitic mass ]on 03-09-2024 MCH (RBC) [Entitic mass] MCH [Entitic mass] by Automated count 26.7-34.0 [facility] MCHC Auto (RBC) [Mass/Vol]on 03-09-2024 MCHC (RBC) [Mass/Vol] MCHC [Mass/volume] by Automated count 29.9-35.2 [facility] MCV Auto (RBC) [Entitic vol] on 03-09-2024 MCV (RBC) [Entitic vol] MCV [Entitic volume] by Automated count 81.0-99.0 [facility] Monocytes Auto (Bld) [#/Vol] on 03-09-2024 Monocytes (Bld) [#/Vol] Automated blood monocyte count 0.3-0.8 [facility] Monocytes/100 WBC Auto (Bld) on 03-09-2024 Monocytes/100 WBC (Bld) Automated monocyte % 1.7-12.0 [facility] Neutrophils Auto (Bld) [#/Vo l]on 03-09-2024 Neutrophils (Bld) [#/Vol] Neutrophils [#/volume] in Blood by Automated count High 1.4-6.5 [facility] Neutrophils/100 WBC Auto (Bl d)on 03-09-2024 Neutrophils/100 WBC (Bld) Automated neutrophil % High 43.0-75.0 [facility] No Panel Informationon 03-09 Eosinophils # (Auto) 0.0 10 3/uL 0.0-0.7 [facility] Immature Granulocyte # (Auto) 0.06 10 3/uL High 0.00-0.03 [facility] Platelet mean volume Auto (B ld) [Entitic vol]on 03-09-2024 Platelet mean volume (Bld) [Entitic vol] Platelet mean volume [Entitic volume] in Blood by Automated count 9.5-13.5 [facility] Platelets Auto (Bld) [#/Vol] on 03-09-2024 Platelets (Bld) [#/Vol] Platelets [#/volume] in Blood by Automated count 150-450 [facility] RBC Auto (Bld) [#/Vol]on RBC (Bld) [#/Vol] Erythrocytes [#/volume] in Blood by Automated count Low 4.20-5.40 [facility] Serum or plasma anion gap de terminationon 03-09-2024 Anion gap [Moles/Vol] Serum or plasma an ion gap determination [facility] Basophils Auto (Bld) [#/Vol] on 03-08-2024 Basophils (Bld) [#/Vol] Automated basophil count 0.0-0.1 [facility] Basophils/100 WBC Auto (Bld) on 03-08-2024 Basophils/100 WBC (Bld) Automated basophil % 0.2-2.0 [facility] Eosinophils/100 WBC Auto (Bl d)on 03-08-2024 Eosinophils/100 WBC (Bld) Automated eosinophil % 0.9-7.0 [facility] Erythrocyte distribution wid th Auto (RBC) [Ratio]on 03-08-2024 Erythrocyte distribution width (RBC) [Ratio] Erythrocyte distribution width [Ratio] by Automated count 11.0-15.0 [facility] Estimated glomerular filtrat ion rate (GFR) non- Americanon 03-08-2024 GFR/1.73 sq M.predicted among non-blacks MDRD (S/P/Bld) [Vol rate/Area] Estimated glomerular filtration rate (GFR) non- Low >=60 mL/min/1.73m 2 [facility] Fibrin D-dimer [Presence] in Platelet poor plasma by Latex agglutinationon 03-08-2024 Fibrin D-dimer LA Ql (PPP) Fibrin D-dimer [Presence] in Platelet poor plasma by Latex agglutination Critically high <=0.59 [facility] Comment on above: RESULTS CALLED TO [...] [Mass/Vol] Serum globulin measurement by calculation (mass/volume) [facility] Hematocrit Auto (Bld) [Volum e fraction]on 03-08-2024 Hematocrit (Bld) [Volume fraction] Hematocrit [Volume Fraction] of Blood by Automated count Low 36.0-48.0 [facility] Hemoglobin [Mass/volume] in Bloodon 03-08-2024 Hemoglobin (Bld) [Mass/Vol] Hemoglobin [Mass/volume] in Blood Low 12.0-16.0 [facility] Laboratory - Chemistry and C hemistry - challengeon 03-08-2024 Albumin [Mass/Vol] 3.2 g/dL Low 3.4-5.0 [facility] ALP [Catalytic activity/Vol] 89 U/L 46-116 [facility] ALT [Catalytic activity/Vol] 156 U/L High 14-59 [facility] AST [Catalytic activity/Vol] 178 U/L High 15-37 [facility] Bilirubin [Mass/Vol] 1.4 mg/dL High 0.2-1.0 [facility] Bilirubin.direct [Mass/Vol] 0.4 mg/dL High 0.0-0.2 [facility] Lactate [Moles/Vol] 1.2 mmol/L 0.4-2.0 [facility] Lipase [Catalytic activity/Vol] 26.0 U/L 16.0-77.0 [facility] Magnesium [Mass/Vol] 1.9 mg/dL 1.8-2.4 [facility] Natriuretic peptide B (Bld) [Mass/Vol] 697.0 pg/mL <=1800.0 [facility] Protein [Mass/Vol] 6.3 g/dL Low 6.4-8.2 [facility] Bilirubin Ql (U) Negative NEGATIVE [facility] Glucose (U) [Mass/Vol] Negative [facility]IVE [facility] Ketones Ql (U) Negative NEGATIVE [facility] pH (U) 7.0 [pH] 5.0-9.0 [facility] Specific gravity (U) [Rel density] 1.010 1.005-1.025 [facility] Urobilinogen Qn (U) 1.0 {Nora'U}/dL 0.2-1.0 [facility] Calcium [Mass/Vol] 9.0 mg/dL 8.5-10.1 [facility] Chloride [Moles/Vol] 106 mmol/L 98-107 [facility] CO2 [Moles/Vol] 29.0 mmol/L 21.0-32.0 [facility] Creatinine [Mass/Vol] 1.25 mg/dL High 0.55-1.02 [facility] GFR/1.73 sq M.predicted MDRD (S/P/Bld) [Vol rate/Area] 50 mL/min/{1.73_m2} Low >=60 mL/min/1.73m 2 [facility] Glucose [Mass/Vol] 111 mg/dL High 74-106 [facility] Potassium [Moles/Vol] 3.1 mmol/L Low 3.5-5.1 [facility] Sodium [Moles/Vol] 145 mmol/L 136-145 [facility] Urea nitrogen [Mass/Vol] 18.0 mg/dL 7.0-18.0 [facility] Urea nitrogen/Creatinine [Mass ratio] 14.4 mg/mg [facility] Laboratory - Hematology and Cell countson 03-08-2024 Immature granulocytes/100 WBC (Bld) 0.3 % 0.0-0.5 [facility] Laboratory - Microbiology an d Antimicrobial susceptibilityon 03-08-2024 SARS-CoV-2 (COVID-19) RNA RADHA+probe Ql (Unsp spec) Negative NEGATIVE [facility] Comment on above: This test has [...] Ql (Vag fld) Not detected NOT DETECTE [facility] Laboratory - Specimen inform ationon 03-08-2024 Appearance (U) CLEAR CLEAR [facility] Color (U) LT. YELLOW YELLOW [facility] Laboratory - Urinalysison Hyaline casts LM Ql (Urine sed) RARE [facility] Leukocyte esterase Test strip Ql (U) Negative NEGATIVE [facility] Mucus Ql (Urine sed) TRACE Abnormal NONE SEEN [facility] Nitrite Ql (U) Negative NEGATIVE [facility] Protein Ql (U) Negative NEG/TRACE [facility] Leukocytes [#/volume] correc jonnie for nucleated erythrocytes in Blood by Automated counon 03-08-2024 WBC corrected for nucl RBC Auto (Bld) [#/Vol] Leukocytes [#/volume] corrected for nucleated erythrocytes in Blood by Automated coun 4.0-11.0 [facility] Lymphocytes Auto (Bld) [#/Vo l]on 03-08-2024 Lymphocytes (Bld) [#/Vol] Lymphocytes [#/volume] in Blood by Automated count 1.2-3.8 [facility] Lymphocytes/100 WBC Auto (Bl d)on 03-08-2024 Lymphocytes/100 WBC (Bld) Lymphocytes/100 leukocytes in Blood by Automated count Low 20.5-60.0 [facility] MCH Auto (RBC) [Entitic mass ]on 03-08-2024 MCH (RBC) [Entitic mass] MCH [Entitic mass] by Automated count 26.7-34.0 [facility] MCHC Auto (RBC) [Mass/Vol]on 03-08-2024 MCHC (RBC) [Mass/Vol] MCHC [Mass/volume] by Automated count 29.9-35.2 [facility] MCV Auto (RBC) [Entitic vol] on 03-08-2024 MCV (RBC) [Entitic vol] MCV [Entitic volume] by Automated count 81.0-99.0 [facility] Monocytes Auto (Bld) [#/Vol] on 03-08-2024 Monocytes (Bld) [#/Vol] Automated blood monocyte count 0.3-0.8 [facility] Monocytes/100 WBC Auto (Bld) on 03-08-2024 Monocytes/100 WBC (Bld) Automated monocyte % 1.7-12.0 [facility] Neutrophils Auto (Bld) [#/Vo l]on 03-08-2024 Neutrophils (Bld) [#/Vol] Neutrophils [#/volume] in Blood by Automated count High 1.4-6.5 [facility] Neutrophils/100 WBC Auto (Bl d)on 03-08-2024 Neutrophils/100 WBC (Bld) Automated neutrophil % 43.0-75.0 [facility] No Panel Informationon 03-08 Troponin I High Sensitivity 9.3 pg/mL 4.0-51.3 [facility] Comment on above: CUT-OFF POINTS HAVE [...] INFORMATION. Bedside Influenza Type A Antigen Negative [facility] Comment on above: Negative for Flu A p rotein antigen. Infection due to Flu Acannot be ruled out. Flu A antigen in the sample may bebelow the detection limit of the test. Bedside Influenza Type B Antigen Negative [facility] Comment on above: Negative for Flu B p rotein antigen. Infection due to Flu Bcannot be ruled out. Flu B antigen in the sample may bebelow the detection limit of the test. Urine Bacteria TRACE #/HPF Abnormal NONE SEEN [facility] Urine Culture Reflexed NO [facility] Urine Occult Blood TRACE-L NEGATIVE [facility] Urine Other Casts SEEN #/LPF Abnormal NONE SEEN [facility] Urine Other Crystals None Seen #/HPF None Seen [facility] Urine RBC 0-2 #/HPF 0-2 [facility] Urine Squamous Epithelial Cells RARE #/LPF NONE/RARE [facility] Urine WBC 0-2 #/HPF Abnormal NONE SEEN [facility] A.calcoaceticus-fadi dean cmplx PCR Not detected NOT DETECTE [facility] Bacteroides fragilis (PCR) Not detected NOT DETECTE [facility] Blood Culture Source Blood [facility] Tawnya albicans (PCR) Not detected NOT DETECTE [facility] Tawnya auris (PCR) Not detected NOT DETECTE [facility] Tawnya glabrata (PCR) Not detected NOT DETECTE [facility] Tawnya krusei (PCR) Not detected NOT DETECTE [facility] Tawnya parapsilosis (PCR) Not detected NOT DETECTE [facility] Tawnya tropicalis (PCR) Not detected NOT DETECTE [facility] Crypto neoformans/gattii (PCR)(LAB) Not detected NOT DETECTE [facility] CTX-M ESBL (PCR) NOT APPLICABLE NOT DETECTE [facility] Enterobacter cloacae complex (PCR) Not detected NOT DETECTE [facility] Enterobacterales (PCR) Not detected NOT DETECTE [facility] Enterococcus faecalis PCR Not detected NOT DETECTE [facility] Enterococcus faecium PCR Not detected NOT DETECTE [facility] Escherichia coli Result Not detected NOT DETECTE [facility] Haemophilus influenzae DNA Not detected NOT DETECTE [facility] IMP (blaIMP) Carbap Res Gene (PCR) NOT APPLICABLE NOT DETECTE [facility] Klebsiella aerogenes (PCR) Not detected NOT DETECTE [facility] Klebsiella oxytoca (PCR) Not detected NOT DETECTE [facility] Klebsiella pneumoniae group (PCR) Not detected NOT DETECTE [facility] KPC (blaKPC) Detection (PCR) NOT APPLICABLE NOT DETECTE [facility] Listeria monocytogenes (PCR) Not detected NOT DETECTE [facility] MCR-1 Resistance Gene NOT APPLICABLE NOT DETECT E [facility] mecA/C & MREJ Antimicrob Resist Gen NOT APPLICABLE NOT DETECTE [facility] mecA/C-Methicillin Resistance Gene NOT APPLICABLE NOT DETECTE [facility] NDM (blaNDM) Detection (PCR) NOT APPLICABLE NOT DETECTE [facility] Neisseria meningitidis (PCR) Not detected NOT DETECTE [facility] Proteus species (PCR) Not detected NOT DETECTE [facility] Pseudomonas aeruginosa (PCR) Not detected NOT DETECTE [facility] Salmonella spp. (PCR) Not detected NOT DETECTE [facility] Serratia marcescens (PCR) Not detected NOT DETECTE [facility] Staphylococcus aureus (PCR)(LAB) Not detected NOT DETECTE [facility] Staphylococcus epidermidis (PCR) Not detected NOT DETECTE [facility] Staphylococcus lugdunensis (TEM-PCR Not detected NOT DETECTE [facility] Staphylococcus species (PCR) Not detected NOT DETECTE [facility] Stenotroph. maltophilia (PCR) Not detected NOT DETECTE [facility] Streptococcus pneumoniae (PCR) Not detected NOT DETECTE [facility] Streptococcus pyogenes (PCR)(LAB) Not detected NOT DETECTE [facility] Streptococcus species (PCR) Not detected NOT DETECTE [facility] Syn OXA-48-like Carb Res Gene (PCR) NOT APPLICABLE NOT DETECTE [facility] Giovanny/B-Vancomycin Resistance Genes NOT APPLICABLE NOT DETECTE [facility] VIM (blaVIM) Carbap Res Gene (PCR) NOT APPLICABLE NOT DETECTE [facility] Eosinophils # (Auto) 0.1 10 3/uL 0.0-0.7 [facility] Immature Granulocyte # (Auto) 0.03 10 3/uL 0.00-0.03 [facility] No Panel InformationOrdered By: Rich Carcamo on 03-08-2024 Anaerobe Identification Only [facility] Blood Culture 1 [facility] Platelet mean volume Auto (B ld) [Entitic vol]on 03-08-2024 Platelet mean volume (Bld) [Entitic vol] Platelet mean volume [Entitic volume] in Blood by Automated count 9.5-13.5 [facility] Platelets Auto (Bld) [#/Vol] on 03-08-2024 Platelets (Bld) [#/Vol] Platelets [#/volume] in Blood by Automated count 150-450 [facility] RBC Auto (Bld) [#/Vol]on RBC (Bld) [#/Vol] Erythrocytes [#/volume] in Blood by Automated count Low 4.20-5.40 [facility] Serum or plasma albumin/glob ulin mass ratioon 03-08-2024 Albumin/Globulin [Mass ratio] Serum or plasma albumin/globulin mass ratio [facility] Serum or plasma anion gap de terminationon 03-08-2024 Anion gap [Moles/Vol] Serum or plasma an ion gap determination [facility] Basophils Auto (Bld) [#/Vol] on 11-07-2023 Basophils (Bld) [#/Vol] 0.0 10 3/uL 0.0-0.1 [facility] Basophils/100 WBC Auto (Bld) on 11-07-2023 Basophils/100 WBC (Bld) 0.4 % 0.2-2.0 [facility] Eosinophils/100 WBC Auto (Bl d)on 11-07-2023 Eosinophils/100 WBC (Bld) 2.6 % 0.9-7.0 [facility] Erythrocyte distribution wid th Auto (RBC) [Ratio]on 11-07-2023 Erythrocyte distribution width (RBC) [Ratio] 13.3 % 11.0-15.0 [facility] Estimated glomerular filtrat ion rate (GFR) non- Americanon 11-07-2023 GFR/1.73 sq M.predicted among non-blacks MDRD (S/P/Bld) [Vol rate/Area] 45 mL/min/{1.73_m2} Low >=60 [facility] Hematocrit Auto (Bld) [Volum e fraction]on 11-07-2023 Hematocrit (Bld) [Volume fraction] 35.4 % Low 36.0-48.0 [facility] Hemoglobin [Mass/volume] in Bloodon 11-07-2023 Hemoglobin (Bld) [Mass/Vol] 11.8 g/dL Low 12.0-16.0 [facility] Iron binding capacity [Mass/ volume] in Serum or Plasmaon 11-07-2023 Iron binding capacity [Mass/Vol] 258.0 ug/dL 250.0-450.0 [facility] Iron saturation [Mass Fracti on] in Serum or Plasmaon 11-07-2023 Iron saturation [Mass fraction] 31.8 % [facility] Laboratory - Chemistry and C hemistry - challengeon 11-07-2023 Calcium [Mass/Vol] 10.0 mg/dL 8.5-10.1 [facility] Chloride [Moles/Vol] 102 mmol/L 98-107 [facility] CO2 [Moles/Vol] 30.7 mmol/L 21.0-32.0 [facility] Cobalamin (Vitamin B12) [Mass/Vol] 344.0 pg/mL 193.0-986.0 [facility] Creatinine [Mass/Vol] 1.17 mg/dL High 0.55-1.02 [facility] Ferritin [Mass/Vol] 154.0 ng/mL 8.0-252.0 [facility] GFR/1.73 sq M.predicted MDRD (S/P/Bld) [Vol rate/Area] 54 mL/min/{1.73_m2} Low >=60 [facility] Glucose [Mass/Vol] 107 mg/dL High 74-106 [facility] Iron [Mass/Vol] 82.0 ug/dL 50.0-170.0 [facility] Potassium [Moles/Vol] 3.5 mmol/L 3.5-5.1 [facility] Sodium [Moles/Vol] 141 mmol/L 136-145 [facility] Urea nitrogen [Mass/Vol] 15.0 mg/dL 7.0-18.0 [facility] Urea nitrogen/Creatinine [Mass ratio] 12.8 mg/mg [facility] Laboratory - Hematology and Cell countson 11-07-2023 Immature granulocytes/100 WBC (Bld) 0.2 % 0.0-0.5 [facility] Leukocytes [#/volume] correc jonnie for nucleated erythrocytes in Blood by Automated counon 11-07-2023 WBC corrected for nucl RBC Auto (Bld) [#/Vol] 5.3 10 3/uL 4.0-11.0 [facility] Lymphocytes Auto (Bld) [#/Vo l]on 11-07-2023 Lymphocytes (Bld) [#/Vol] 1.9 10 3/uL 1.2-3.8 [facility] Lymphocytes/100 WBC Auto (Bl d)on 11-07-2023 Lymphocytes/100 WBC (Bld) 35.4 % 20.5-60.0 [facility] MCH Auto (RBC) [Entitic mass ]on 11-07-2023 MCH (RBC) [Entitic mass] 30.6 pg 26.7-34.0 [facility] MCHC Auto (RBC) [Mass/Vol]on 11-07-2023 MCHC (RBC) [Mass/Vol] 33.3 g/dL 29.9-35.2 [facility] MCV Auto (RBC) [Entitic vol] on 11-07-2023 MCV (RBC) [Entitic vol] 91.7 fL 81.0-99.0 [facility] Monocytes Auto (Bld) [#/Vol] on 11-07-2023 Monocytes (Bld) [#/Vol] 0.6 10 3/uL 0.3-0.8 [facility] Monocytes/100 WBC Auto (Bld) on 11-07-2023 Monocytes/100 WBC (Bld) 12.1 % High 1.7-12.0 [facility] Neutrophils Auto (Bld) [#/Vo l]on 11-07-2023 Neutrophils (Bld) [#/Vol] 2.6 10 3/uL 1.4-6.5 [facility] Neutrophils/100 WBC Auto (Bl d)on 11-07-2023 Neutrophils/100 WBC (Bld) 49.3 % 43.0-75.0 [facility] No Panel Informationon 11-06 Eosinophils # (Auto) 0.1 10 3/uL 0.0-0.7 [facility] Folate 17.80 ng/mL 8.60-58.90 [facility] Immature Granulocyte # (Auto) 0.01 10 3/uL 0.00-0.03 [facility] Platelet mean volume Auto (B ld) [Entitic vol]on 11-07-2023 Platelet mean volume (Bld) [Entitic vol] 12.2 fL 9.5-13.5 [facility] Platelets Auto (Bld) [#/Vol] on 11-07-2023 Platelets (Bld) [#/Vol] 190 10 3/uL 150-450 [facility] RBC Auto (Bld) [#/Vol]on RBC (Bld) [#/Vol] 3.86 10 6/uL Low 4.20-5.40 [facility] Serum or plasma anion gap de terminationon 11-07-2023 Anion gap [Moles/Vol] 11.8 mmol/L [facility] Office Visiton 01-05-2023 Follow-up visit [id number] Giovanna Richardson 1940 F Date Provider Department Center 01/05/2023 Kamilah8-JEMAL MEDEIROS [facility] Family History Problem Relation Age of Onset No Known Problems Mother No Known Problems Father Family Status - Relation Status Age at Mother Father Level of Service:17938 CT OFFICE/OUTPATIENT ESTABLISHED LOW MDM 20-29 MIN Normal [facility] FUNGAL AB QUANTITAIVE DOUBLE IMMUNODIFFUon 07-30-2022 Aspergillus flavus Negative Normal Neg:<1:1 [facility] Comment on above: Performed By: #### F UNGUYI #### [facility] [address] [place] [address] Dr. Milena Rosa Aspergillus fumigatus Negative Normal Neg:<1:1 [facility] Comment on above: Performed By: #### F UNGUYI #### [facility] [address] [place] [address] Dr. Milena Rosa Aspergillus niger Negative Normal Neg:<1:1 [facility] Comment on above: Performed By: #### F UNGUYI #### [facility] [address] [place] [address] Dr. Milena Rosa Blastomyces Negative Normal Neg:<1:1 [facility] Comment on above: Performed By: #### F UNGUYI #### [facility] [address] [place] [address] Dr. Milena Rosa HISTOPLASMA GALACTOMANNAN AG URINEon 07-30-2022 Histoplasma Gal'rosales Ag <0.5 Normal <0.5 ng/mL [facility] Comment on above: Performed By: #### H ISTGAL ####[facility] [id number] [place] [address]DrElia Rosa COCCIDIODES IGG/IGM AB BY IF Aon 07-29-2022 Coccidiodes Ab, IgG EIA 0.1 EIA Units Normal [facility] Comment on above: Result Comment: Nega tive <1.0 Indeterminate 1.0-1.4 Positive >1.4 Performed By: #### C OCCABS #### [facility] [address] [place] [address] Dr. Milena Rosa Coccidiodes Ab, IgM, EIA 0.0 EIA Units Normal [facility] Comment on above: Result Comment: Nega tive <1.0 Indeterminate 1.0-1.4 Positive >1.4 Performed By: #### C OCCABS #### [facility] [address] [place] [address] Dr. Milena Rosa HISTOPLASMA CAP AB QUANT DID on 07-29-2022 Histoplasma Mycelial CF Ab. Negative Normal Neg:<1:2 [facility] Comment on above: Performed By: #### H ISTDID ####[facility] [id number] [place] [address]DrElia Rosa Histoplasma Yeast CF Ab Negative Normal Neg:<1:2 [facility] Comment on above: Performed By: #### H ISTDID ####[facility] [id number] [place] [address]DrElia Rosa Office Visiton 07-26-2022 Follow-up visit [id number] Giovanna Richardson 1940 Date Provider Department [place] 07/26/2022 [facility] Family History Problem Relation Age of Onset No Known Problems Mother No Known Problems Father Family Status - Relation Status Age at Mother Father Level of Service:04775 CT OFFICE/OUTPATIENT ESTABLISHED MOD [facility] 30-39 MIN Reason for Visit and Comments: Follow-up [280086] - 6 weeks- Go over Holter monitor results- Discuss medications Normal [facility] CT CHEST WO CONon 07-19-2022 CT CHEST [...] by: WILLIAM BERMEO Date: 2022-07-19 14:55 Normal [facility] Office Visiton 06-07-2022 Follow-up visit [id number] Giovanna Richardson 1940 F Date Provider Department Center 06/07/2022 3848-JEMAL MEDEIROS [facility] Family History Problem Relation Age of Onset No Known Problems Mother No Known Problems Father Family Status - Relation Status Age at Mother Father Level of Service:97321 CT OFFICE/OUTPATIENT ESTABLISHED MOD MDM 30-39 MIN Reason for Visit and Comments: Post-Cath [731] Normal [facility] CBC AUTO DIFFon 05-15-2022 BASO # 0.0 103/ul Normal 0.0-0.1 [facility] Comment on above: Performed By: #### C BC #### [facility] [address] [place] [address] Dr. Milena Rosa Basophils/100 WBC (Bld) 0.3 % Normal 0.2-2.0 [facility] Comment on above: Performed By: #### C BC #### [facility] [address] [place] [address] Dr. Milena Rosa EO # 0.2 103/ul Normal 0.0-0.7 [facility] Comment on above: Performed By: #### C BC #### [facility] [address] [place] [address] Dr. Milena Rosa Eosinophils/100 WBC (Bld) 2.8 % Normal 0.9-7.0 [facility] Comment on above: Performed By: #### C BC #### [facility] [address] [place] [address] Dr. Milena Rosa Erythrocyte distribution width (RBC) [Ratio] 13.3 % Normal 11.0-15.0 [facility] Comment on above: Performed By: #### C BC #### [facility] [address] [place] [address] Dr. Milena Rosa Hematocrit (Bld) [Volume fraction] 38.5 % Normal 36.0-48.0 [facility] Comment on above: Performed By: #### C BC #### [facility] [address] [place] [address] Dr. Milena Rosa Hemoglobin (Bld) [Mass/Vol] 12.6 g/dL Normal 12.0-16.0 [facility] Comment on above: Performed By: #### C BC #### [facility] [address] [place] [address] Dr. Milena Rosa IG # 0.02 10e3/ul Normal 0.00-0.03 [facility] Comment on above: Performed By: #### C BC #### [facility] [address] [place] [address] Dr. Milena Rosa IG % 0.3 % Normal 0.0-0.5 [facility] Comment on above: Performed By: #### C BC #### [facility] [address] [place] [address] Dr. Milena Rosa LYMPH # 2.5 103/ul Normal 1.2-3.8 [facility] Comment on above: Performed By: #### C BC #### [facility] [address] [place] [address] Dr. Milena Rosa Lymphocytes/100 WBC (Bld) 37.6 % Normal 20.5-60.0 [facility] Comment on above: Performed By: #### C BC #### [facility] [address] [place] [address] Dr. Milena Rosa MANUAL DIFF REQ NO Normal [facility] Comment on above: Performed By: #### C BC #### [facility] [address] [place] [address] Dr. Milena Rosa MCH (RBC) [Entitic mass] 29.8 pg Normal 26.7-34.0 [facility] Comment on above: Performed By: #### C BC #### [facility] [address] [place] [address] Dr. Milena Rosa MCHC (RBC) [Mass/Vol] 32.7 g/dL Normal 29.9-35.2 [facility] Comment on above: Performed By: #### C BC #### [facility] [address] [place] [address] Dr. Milena Rosa MCV (RBC) [Entitic vol] 91.0 fL Normal 81.0-99.0 [facility] Comment on above: Performed By: #### C BC #### [facility] [address] [place] [address] Dr. Milena Rosa MONO # 0.7 103/ul Normal 0.3-0.8 [facility] Comment on above: Performed By: #### C BC #### [facility] [address] [place] [address] Dr. Milena Rosa Monocytes/100 WBC (Bld) 10.0 % Normal 1.7-12.0 [facility] Comment on above: Performed By: #### C BC #### [facility] [address] [place] [address] Dr. Milena Rosa NEUT # 3.3 103/ul Normal 1.4-6.5 [facility] Comment on above: Performed By: #### C BC #### [facility] [address] [place] [address] Dr. Milena Rosa Neutrophils/100 WBC (Bld) 49.0 % Normal 43.0-75.0 [facility] Comment on above: Performed By: #### C BC #### [facility] [address] [place] [address] Dr. Milena Rosa Platelet mean volume (Bld) [Entitic vol] 11.5 fL Normal 9.5-13.5 [facility] Comment on above: Performed By: #### C BC #### [facility] [address] [place] [address] Dr. Milena Rosa PLT 201 103/ul Normal 150-450 [facility] Comment on above: Performed By: #### C BC #### [facility] [address] [place] [address] Dr. Milena Rosa RBC 4.23 106/ul Normal 4.20-5.40 [facility] Comment on above: Performed By: #### C BC #### [facility] [address] [place] [address] Dr. Milena Rosa WBC 6.7 103/ul Normal 4.0-11.0 [facility] Comment on above: Performed By: #### C BC #### [facility] [address] [place] [address] Dr. Milena Rosa Covid-19 PCR (CVDTB)on 04-30 SARS-CoV-2 (COVID-19) RNA RADHA+probe Ql (Unsp spec) Not detected Normal NOT DETECTED [facility] Comment on above: Result Comment: This test is not yet approved or cleared by the [place] FDA. When there are no FDA-approved or cleared tests available, and other criteria are met, FDA can make tests available under an emergency access mechanism called an Emergency Use Authorization (EUA). The EUA for this test is supported by the [place] of Health and Human Service's (HHS's) declaration [...] with SARS-CoV-2. Performed By: #### C VDTB ####[facility] [address] [place] [address]Dr. Milena Rosa PROF CHEM 8 (BAS METB)on Anion gap [Moles/Vol] 13.1 mmol/L Normal [facility] Comment on above: Performed By: #### B MP #### [facility] [address] [place] [address] Dr. Milena Rosa Calcium [Mass/Vol] 9.8 mg/dL Normal 8.5-10.1 [facility] Comment on above: Performed By: #### B MP #### [facility] [address] [place] [address] [address] Milena Rosa Chloride [Moles/Vol] 103 mmol/L Normal 98-107 [facility] Comment on above: Performed By: #### B MP #### [facility] [address] [place] [address] [address] Milena Rosa CO2 [Moles/Vol] 26.7 mmol/L Normal 21.0-32.0 [facility] Comment on above: Performed By: #### B MP #### [facility] [address] [place] [address] [address] Milena Rosa Creatinine [Mass/Vol] 0.95 mg/dL Normal 0.55-1.02 [facility] Comment on above: Performed By: #### B MP #### [facility] [address] [place] [address] [address] Milena Rosa EGFR-AF KOSOVAN >60 Normal >=60 [facility] Comment on above: Performed By: #### B MP #### [facility] [address] [address] [address] Milena Rosa EGFR-NON AF KOSOVAN 57 mL/min/1.73m2 Critically low >=60 [facility] Comment on above: Performed By: #### B MP #### [facility] [address] [place] [address] Dr. Milena Rosa Glucose [Mass/Vol] 93 mg/dL Normal 74-106 [facility] Comment on above: Performed By: #### B MP #### [facility] [address] [place] [address] Dr. Milena Rsoa Potassium [Moles/Vol] 3.8 mmol/L Normal 3.5-5.1 [facility] Comment on above: Performed By: #### B MP #### [facility] [address] [place] [address] Dr. Milena Rosa Sodium [Moles/Vol] 139 mmol/L Normal 136-145 [facility] Comment on above: Performed By: #### B MP #### [facility] [address] [place] [address] [address] Milena Rosa Urea nitrogen [Mass/Vol] 18.0 mg/dL Normal 7.0-18.0 [facility] Comment on above: Performed By: #### B MP #### [facility] [address] [place] [address] [address] Milena Rosa Urea nitrogen/Creatinine [Mass ratio] 18.9 mg/mg Normal [facility] Comment on above: Performed By: #### B MP #### [facility] [address] [place] [address] [address] Milena Rosa NM STRESS/REST MULTIon 04-28 NM STRESS/REST MULTI Patient: GIOVANNA RICHARDSON Exam Date: 04/28/2022 : 1940 Gender:F Ordering : DR OVI CROOKS D.O. Admission #: [id number] Family : Order #: [id number] CLICK HERE TO VIEW EXAM RADIOLOGY REPORT [...] MD on 04/28/2022 at 14:26 Normal [facility] CBC AUTO DIFFon 02-27-2022 BASO # 0.0 103/ul Normal 0.0-0.1 [facility] Comment on above: Performed By: #### C BC ####[facility] [address] [place], [place] [address]YqDr. Milena Rosa Basophils/100 WBC (Bld) 0.5 % Normal 0.2-2.0 [facility] Comment on above: Performed By: #### C BC ####[facility] [address] [place], [place] [address]Dr. Milena Rosa EO # 0.1 103/ul Normal 0.0-0.7 [facility] Comment on above: Performed By: #### C BC ####[facility] [address] [place], [place] [address]Dr. Kimberleychinedu Rosa Eosinophils/100 WBC (Bld) 1.9 % Normal 0.9-7.0 [facility] Comment on above: Performed By: #### C BC ####[facility] [address] [place], [place] [address]Dr. Milena Rosa Erythrocyte distribution width (RBC) [Ratio] 14.3 % Normal 11.0-15.0 [facility] Comment on above: Performed By: #### C BC ####[facility] [address] [place], [place] [address]Dr. Milena Rosa Hematocrit (Bld) [Volume fraction] 37.6 % Normal 36.0-48.0 [facility] Comment on above: Performed By: #### C BC ####[facility] [address] [place], [place] [address]Dr. Milena Rosa Hemoglobin (Bld) [Mass/Vol] 12.6 g/dL Normal 12.0-16.0 [facility] Comment on above: Performed By: #### C BC ####[facility] [address] [place], [place] [address]Dr. Milena Rosa IG # 0.02 10e3/ul Normal 0.00-0.03 [facility] Comment on above: Performed By: #### C BC ####[facility] [address] [place], [place] [address]Dr. Milena Rosa IG % 0.3 % Normal 0.0-0.5 [facility] Comment on above: Performed By: #### C BC ####[facility] [address] [place], [place] [address]DrElia Rosa LYMPH # 2.1 103/ul Normal 1.2-3.8 [facility] Comment on above: Performed By: #### C BC ####[facility] [address] [place] [id number] Rosa Lymphocytes/100 WBC (Bld) 33.2 % Normal 20.5-60.0 [facility] Comment on above: Performed By: #### C BC ####[facility] [address] [place], [place] [address]DrElia Rosa MANUAL DIFF REQ NO Normal [facility] Comment on above: Performed By: #### C BC ####[facility] [address] [place] [address]DrElia Rosa MCH (RBC) [Entitic mass] 30.9 pg Normal 26.7-34.0 [facility] Comment on above: Performed By: #### C BC ####[facility] [address] [place], [place] [address]DrElia Rosa MCHC (RBC) [Mass/Vol] 33.5 g/dL Normal 29.9-35.2 [facility] Comment on above: Performed By: #### C BC ####[facility] [address] [place], [place] [address]DrElia Rosa MCV (RBC) [Entitic vol] 92.2 fL Normal 81.0-99.0 [facility] Comment on above: Performed By: #### C BC ####[facility] [address] [place], [place] [address]DrElia Rosa MONO # 0.6 103/ul Normal 0.3-0.8 [facility] Comment on above: Performed By: #### C BC ####[facility] [address] [place], [place] [address]DrElia Rosa Monocytes/100 WBC (Bld) 8.9 % Normal 1.7-12.0 [facility] Comment on above: Performed By: #### C BC ####[facility] [address] [place], [place] [address]DrElia Rosa NEUT # 3.5 103/ul Normal 1.4-6.5 [facility] Comment on above: Performed By: #### C BC ####[facility] [address] [place] [id number]. Milena Rosa Neutrophils/100 WBC (Bld) 55.2 % Normal 43.0-75.0 [facility] Comment on above: Performed By: #### C BC ####[facility] [address] [place] [id number]. Milena Rosa Platelet mean volume (Bld) [Entitic vol] 11.6 fL Normal 9.5-13.5 [facility] Comment on above: Performed By: #### C BC ####[facility] [address] [place] [address]Dr. Milena Rosa PLT 217 103/ul Normal 150-450 [facility] Comment on above: Performed By: #### C BC ####[facility] [address] [place] [id number]. Milena Rosa RBC 4.08 106/ul Critically low 4.20-5.[address] [facility] Comment on above: Performed By: #### C BC ####[facility] [address] [place] [id number]. Milena Rosa WBC 6.3 103/ul Normal 4.0-11.0 [facility] Comment on above: Performed By: #### C BC ####[facility] [address] [place] [id number]. Milena Rosa ECHOCARDIO M/2D COMPLETEon 1 ECHOCARDIO M/2D COMPLETE Patient: GIOVANNA RICHARDSON Exam Date: 02/27/2022 : 1940 Gender:F Ordering : DR OVI CROOKS D.O. Admission #: [id number] Family : Order #: [id number] CLICK HERE TO VIEW EXAM ECHOCARDIOGRAM REPORT [...] Christie M.D. on 03/01/2022 at 11:53 Normal [facility] PROF CHEM 8 (BAS METB)on Anion gap [Moles/Vol] 6.1 mmol/L Normal [facility] Comment on above: Performed By: #### B TERESA, TSH #### [facility] [address] [address] [address] Milena Rosa Calcium [Mass/Vol] 9.0 mg/dL Normal 8.5-10.1 [facility] Comment on above: Performed By: #### B TERESA, TSH #### [facility] [address] [address] [address] Milena Rosa Chloride [Moles/Vol] 103 mmol/L Normal 98-107 [facility] Comment on above: Performed By: #### B TERESA, TSH #### [facility] [address] [address] [address] Milena Rosa CO2 [Moles/Vol] 34.4 mmol/L Critically high 21.0-32.0 [facility] Comment on above: Performed By: #### B TERESA, TSH #### [facility] [address] [address] [address] Milena Rosa Creatinine [Mass/Vol] 1.21 mg/dL Critically high 0.55-1.02 [facility] Comment on above: Performed By: #### B MP, TSH #### [facility] [address] [place] [address] Dr. Milena Rosa EGFR-AF KOSOVAN 52 mL/min/1.73m2 Critically low >=60 [facility] Comment on above: Performed By: #### B MP, TSH #### [facility] [address] [place] [address] Dr. Milena Rosa EGFR-NON AF KOSOVAN 43 mL/min/1.73m2 Critically low >=60 [facility] Comment on above: Performed By: #### B MP, TSH #### [facility] [address] [place] [address] Dr. Milena Rosa Glucose [Mass/Vol] 101 mg/dL Normal 74-106 [facility] Comment on above: Performed By: #### B MP, TSH #### [facility] [address] [place] [address] Dr. Milena Rosa Potassium [Moles/Vol] 3.5 mmol/L Normal 3.5-5.1 [facility] Comment on above: Performed By: #### B MP, TSH #### [facility] [address] [place] [address] Dr. Milena Rosa Sodium [Moles/Vol] 140 mmol/L Normal 136-145 [facility] Comment on above: Performed By: #### B MP, TSH #### [facility] [address] [place] [address] Dr. Milena Rosa Urea nitrogen [Mass/Vol] 20.0 mg/dL Critically high 7.0-18.0 [facility] Comment on above: Performed By: #### B MP, TSH #### [facility] [address] [place] [address] Dr. Milena Rosa Urea nitrogen/Creatinine [Mass ratio] 16.5 mg/mg Normal [facility] Comment on above: Performed By: #### B MP, TSH #### [facility] [address] [place] [address] Dr. Milena Rosa TSHon 02-27-2022 TSH 1.640 uIU/mL Normal 0.358-3.740 [facility] Comment on above: Performed By: #### B , TSH #### [facility] [address] [id number] Milena Rosa XR CHEST 2 Von [...] WHITNEY FOURNIER Date: 2022-02-27 13:49 Normal [facility] MRI LSPINE WO CONon 01-10-20 22 MRI [...] by: WILLIAM BERMEO Date: 2022-01-09 16:20 Normal [facility] XR hand BI 3Von 12-21-2021 XR hand BI 3V [facility] [place] [address] [place] [address] XRay Report Signed Patient: Giovanna Richardson MR#: [id number] : 1940 Acct:[id number] Age/Sex: 81 / F ADM Date: 12/21/21 [place] [facility] [place]: Type: [facility] Attending Dr: Brina Morrissey MD Copies to: [...] Caal Jr., D.O.12/21/2021 2:31 PM Dictation Location: [place] [address] Transcribed By: [facility] 12/21/21 1431 Dictated By: Erasmo Caal Jr, DO 12/21/21 1427 Signed By: 12/21/21 1431 [facility] CBC AUTO DIFFon 09-14-2021 BASO # 0.0 103/ul Normal 0.0-0.1 [facility] Comment on above: Performed By: #### C BC #### [facility] [address] [place] [address] Dr. Milena Rosa Basophils/100 WBC (Bld) 0.2 % Normal 0.2-2.0 [facility] Comment on above: Performed By: #### C BC #### [facility] [address] [place] [address] Dr. Milena Rosa EO # 0.1 103/ul Normal 0.0-0.7 [facility] Comment on above: Performed By: #### C BC #### [facility] [address] [place] [address] Dr. Milena Rosa Eosinophils/100 WBC (Bld) 2.8 % Normal 0.9-7.0 [facility] Comment on above: Performed By: #### C BC #### [facility] [address] [place] [address] Dr. Milena Rosa Erythrocyte distribution width (RBC) [Ratio] 13.4 % Normal 11.0-15.0 [facility] Comment on above: Performed By: #### C BC #### [facility] [address] [place] [address] Dr. Milena Rosa Hematocrit (Bld) [Volume fraction] 38.2 % Normal 36.0-48.0 [facility] Comment on above: Performed By: #### C BC #### [facility] [address] [place] [address] Dr. Milena Rosa Hemoglobin (Bld) [Mass/Vol] 12.5 g/dL Normal 12.0-16.0 [facility] Comment on above: Performed By: #### C BC #### [facility] [address] [place] [address] Dr. Milena Rosa IG # 0.02 10e3/ul Normal 0.00-0.03 [facility] Comment on above: Performed By: #### C BC #### [facility] [address] [place] [address] Dr. Milena Rosa IG % 0.4 % Normal 0.0-0.5 [facility] Comment on above: Performed By: #### C BC #### [facility] [address] [place] [address] Dr. Milena Rosa LYMPH # 2.1 103/ul Normal 1.2-3.8 [facility] Comment on above: Performed By: #### C BC #### [facility] [address] [place] [address] Dr. Milena Rosa Lymphocytes/100 WBC (Bld) 40.5 % Normal 20.5-60.0 [facility] Comment on above: Performed By: #### C BC #### [facility] [address] [place] [address] Dr. Milena Rosa MANUAL DIFF REQ NO Normal [facility] Comment on above: Performed By: #### C BC #### [facility] [address] [place] [address] Dr. Milena Rosa MCH (RBC) [Entitic mass] 29.7 pg Normal 26.7-34.0 [facility] Comment on above: Performed By: #### C BC #### [facility] [address] [place] [address] Dr. Milena Rosa MCHC (RBC) [Mass/Vol] 32.7 g/dL Normal 29.9-35.2 [facility] Comment on above: Performed By: #### C BC #### [facility] [address] [place] [address] Dr. Milena Rosa MCV (RBC) [Entitic vol] 90.7 fL Normal 81.0-99.0 [facility] Comment on above: Performed By: #### C BC #### [facility] [address] [address] [address] Milena Rosa MONO # 0.6 103/ul Normal 0.3-0.8 [facility] Comment on above: Performed By: #### C BC #### [facility] [address] [place] [address] Dr. Milena Rosa Monocytes/100 WBC (Bld) 12.0 % Normal 1.7-12.0 [facility] Comment on above: Performed By: #### C BC #### [facility] [address] [place] [address] Dr. Milena Rosa NEUT # 2.3 103/ul Normal 1.4-6.5 [facility] Comment on above: Performed By: #### C BC #### [facility] [address] [place] [address] Dr. Milena Rosa Neutrophils/100 WBC (Bld) 44.1 % Normal 43.0-75.0 [facility] Comment on above: Performed By: #### C BC #### [facility] [address] [place] [address] Dr. Milena Rosa Platelet mean volume (Bld) [Entitic vol] 11.7 fL Normal 9.5-13.5 [facility] Comment on above: Performed By: #### C BC #### [facility] [address] [place] [address] Dr. Milena Rosa PLT 206 103/ul Normal 150-450 [facility] Comment on above: Performed By: #### C BC #### [facility] [address] [place] [address] Dr. Milena Rosa RBC 4.21 106/ul Normal 4.20-5.40 [facility] Comment on above: Performed By: #### C BC #### [facility] [address] [place] [address] Dr. Milnea Rosa WBC 5.1 103/ul Normal 4.0-11.0 [facility] Comment on above: Performed By: #### C BC #### [facility] [address] [address] [address] Milena Rosa MG MAMM SCREEN 3D SHERICE CADon 09-14-2021 MG MAMM SCREEN 3D SHERICE CAD Patient: GIOVANNA RICHARDSON Exam Date: 09/14/2021 : 1940 Gender:F Ordering : DR OVI CROOKS D.O. Admission #: [id number] Family : Order #: [id number] CLICK HERE TO VIEW EXAM RADIOLOGY REPORT [...] Treatments None Family Cancers None LOCATION: [facility] BREAST COMPOSITION: Scattered areas fibroglandular [...] Ziegler MD on 09/14/2021 at 10:42 Normal [facility] PROF CHEM 8 (BAS METB)on Anion gap [Moles/Vol] 10.5 mmol/L Normal [facility] Comment on above: Performed By: #### B MP #### [facility] [address] [address] [address] Milena Rosa Calcium [Mass/Vol] 9.5 mg/dL Normal 8.5-10.1 [facility] Comment on above: Performed By: #### B MP #### [facility] [address] [address] [address] Milena Rosa Chloride [Moles/Vol] 101 mmol/L Normal 98-107 [facility] Comment on above: Performed By: #### B MP #### [facility] [address] [address] [address] Milena Rosa CO2 [Moles/Vol] 31.1 mmol/L Normal 21.0-32.0 [facility] Comment on above: Performed By: #### B MP #### [facility] [address] [address] [address] Milena Rosa Creatinine [Mass/Vol] 1.01 mg/dL Normal 0.55-1.02 [facility] Comment on above: Performed By: #### B MP #### [facility] [address] [address] [address] Milena Rosa EGFR-AF KOSOVAN >60 Normal >=60 [facility] Comment on above: Performed By: #### B MP #### [facility] [address] [address] [address] Milena Rosa EGFR-NON AF KOSOVAN 53 mL/min/1.73m2 Critically low >=60 [facility] Comment on above: Performed By: #### B MP #### [facility] [address] [address] [address] Milena Rosa Glucose [Mass/Vol] 96 mg/dL Normal 74-106 [facility] Comment on above: Performed By: #### B MP #### [facility] [address] [address] [address] Milena Rosa Potassium [Moles/Vol] 3.6 mmol/L Normal 3.5-5.1 [facility] Comment on above: Performed By: #### B MP #### [facility] [address] [address] [address] Milena Rosa Sodium [Moles/Vol] 139 mmol/L Normal 136-145 [facility] Comment on above: Performed By: #### B MP #### [facility] [address] [address] [address] Milena Rosa Urea nitrogen [Mass/Vol] 20.0 mg/dL Critically high 7.0-18.0 [facility] Comment on above: Performed By: #### B MP #### [facility] [address], [place] [address] Dr. Milena Rosa Urea nitrogen/Creatinine [Mass ratio] 19.8 mg/mg Normal [facility] Comment on above: Performed By: #### B MP #### [facility] [address] [place], [place] [address] Dr. Milena Rosa Coding Summary.on 12-26-2017 Coding Summary. CODING DATE: 12/26/2017 FINAL [facility] STATUS: Home (Routine DC) PAYOR: Medicare APC DESCRIPTION 5481 Laser Eye Procedures ADMIT DX: REASON FOR VISIT DX: H26.492 Other secondary cataract, left eye FINAL DX: PRINCIPAL: H26.492 Other secondary cataract, left eye SECONDARY: PYMT PROC APC STAT DESCRIPTION DOCTOR NAME DATE 22135 5481 T Discission of secondary Shelleyhler Meron [...] Revised Date Saved: 12/26/2017 11:03 am Normal [facility] Coding Summary.on 12-19-2017 Coding Summary. 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 Vital Signs Date Time Vital Sign Value Performing Clinician Facility 12-08-2024 09:55-0400 Body height 149.86 cm Ovi Ball DO Work Phone: [facility] 12-08-2024 09:55-0400 Body mass index (BMI) [Ratio] 32.1 kg/m2 Ovi Ball DO Work Phone: [facility] 12-08-2024 09:55-0400 Body weight 72.23 kg Ovi Ball DO Work Phone: [facility] 12-08-2024 09:55-0400 Diastolic blood pressure 66 mm[Hg] Ovi Ball DO Work Phone: [facility] 12-08-2024 09:55-0400 Heart rate 58 /min Ovi Ball DO Work Phone: [facility] 12-08-2024 09:55-0400 Respiratory rate 12 /min Ovi Ball DO Work Phone: [facility] 12-08-2024 09:55-0400 SaO2% (BldA) [Mass fraction] 96 % Ovi Ball DO Work Phone: [facility] 12-08-2024 09:55-0400 Systolic blood pressure 116 mm[Hg] Ovi Ball DO Work Phone: [facility] 11-24-2024 12:46-0400 Body height 149.86 cm Ovi Ball DO Work Phone: [facility] 11-24-2024 12:46-0400 Body mass index (BMI) [Ratio] 31.3 kg/m2 Ovi Ball DO Work Phone: [facility] 11-24-2024 12:46-0400 Body weight 70.3 kg Ovi Ball DO Work Phone: [facility] 11-24-2024 12:46-0400 Diastolic blood pressure 57 mm[Hg] Ovi Ball DO Work Phone: [facility] 11-24-2024 12:46-0400 Heart rate 75 /min Ovi Ball DO Work Phone: [facility] 11-24-2024 12:46-0400 Systolic blood pressure 111 mm[Hg] Ovi Ball DO Work Phone: [facility] 08-25-2024 09:56-0400 Body height 151.13 cm [facility] 08-25-2024 09:56-0400 Body mass index (BMI) [Ratio] 30.7 kg/m2 [facility] 08-25-2024 09:56-0400 Body weight 70.02 kg [facility] 08-25-2024 09:56-0400 Diastolic blood pressure 74 mm[Hg] [facility] 08-25-2024 09:56-0400 Heart rate 64 /min [facility] 08-25-2024 09:56-0400 Respiratory rate 12 /min [facility] 08-25-2024 09:56-0400 SaO2% (BldA) [Mass fraction] 97 % [facility] 08-25-2024 09:56-0400 Systolic blood pressure 124 mm[Hg] [facility] 04-14-2024 14:22-0500 Body height 149.9 cm Brigitte Yang [employer] Work Phone: [facility] 04-14-2024 14:22-0500 Body mass index (BMI) [Ratio] 31.71 kg/m2 Brigitte Brarmor [employer] Work Phone: [facility] 04-14-2024 14:22-0500 Body weight 71.22 kg Brigitte Zoniamor [employer] Work Phone: [facility] 04-14-2024 14:22-0500 Diastolic blood pressure 52 mm[Hg] Brigitte Zoniamor [employer] Work Phone: [facility] 04-14-2024 14:22-0500 Heart rate 61 /min Brigitte Micheller [employer] Work Phone: [facility] 04-14-2024 14:22-0500 SaO2% (BldA) [Mass fraction] 97 % Brigitte Martinezceasar [employer] Work Phone: [facility] 04-14-2024 14:22-0500 Systolic blood pressure 93 mm[Hg] Brigitte Martinezr [employer] Work Phone: [facility] 03-17-2024 10:07-0500 Body height 151.13 cm [facility] 03-17-2024 10:07-0500 Body mass index (BMI) [Ratio] 30.5 kg/m2 [facility] 03-17-2024 10:07-0500 Body weight 69.85 kg [facility] 03-17-2024 10:07-0500 Diastolic blood pressure 72 mm[Hg] [facility] 03-17-2024 10:07-0500 Heart rate 61 /min [facility] 03-17-2024 10:07-0500 SaO2% (BldA) [Mass fraction] 97 % [facility] 03-17-2024 10:07-0500 Systolic blood pressure 120 mm[Hg] [facility] 02-25-2024 10:08-0400 Body height 151.13 cm [facility] 02-25-2024 10:08-0400 Body mass index (BMI) [Ratio] 30.4 kg/m2 [facility] 02-25-2024 10:08-0400 Body weight 69.39 kg [facility] 02-25-2024 10:08-0400 Diastolic blood pressure 70 mm[Hg] [facility] 02-25-2024 10:08-0400 Heart rate 61 /min [facility] 02-25-2024 10:08-0400 Respiratory rate 12 /min [facility] 02-25-2024 10:08-0400 Systolic blood pressure 126 mm[Hg] [facility] 07-20-2023 09:05-0400 Body height 151.13 cm [facility] 07-20-2023 09:05-0400 Body mass index (BMI) [Ratio] 29.8 kg/m2 [facility] 07-20-2023 09:05-0400 Body weight 68.2 kg [facility] 07-20-2023 09:05-0400 Diastolic blood pressure 71 mm[Hg] [facility] 07-20-2023 09:05-0400 Heart rate 62 /min [facility] 07-20-2023 09:05-0400 Respiratory rate 12 /min [facility] 07-20-2023 09:05-0400 Systolic blood pressure 112 mm[Hg] [facility] 02-20-2023 16:00-0400 Body height Ovi Ball Other [facility] Other 02-20-2023 16:00-0400 Body mass index (BMI) [Ratio] 30.44 kg/m2 Ovi Ball Other [facility] Other 02-20-2023 16:00-0400 Body weight 69.54 kg Ovi Ball Other [facility] Other 02-20-2023 16:00-0400 Diastolic blood pressure 78 mm[Hg] Ovi Ball Other [facility] Other 02-20-2023 16:00-0400 Respiratory rate 12 /min Ovi Ball Other [facility] Other 02-20-2023 16:00-0400 Systolic blood pressure 144 mm[Hg] Ovi Ball Other [facility] Other 07-17-2022 16:30-0400 Body height Ovi Ball Other [facility] Other 07-17-2022 16:30-0400 Body mass index (BMI) [Ratio] 31.33 kg/m2 Ovi Ball Other [facility] Other 07-17-2022 16:30-0400 Body weight 71.58 kg Ovi Crooks Other [facility] Other 07-17-2022 16:30-0400 Diastolic blood pressure 75 mm[Hg] Ovi Crooks Other [facility] Other 07-17-2022 16:30-0400 Respiratory rate 12 /min Ovi Crooks Other [facility] Other 07-17-2022 16:30-0400 Systolic blood pressure 122 mm[Hg] Ovi Crooks Other [facility] Other 12-21-2021 11:00-0400 Body height Brina Morrissey Other [facility] Other Encounters Encounter Date Encounter Type Care Provider Facility Start: 12-08-2024 End: 12-08-2024 ambulatory Ovi Crooks DO Work Phone: [facility] Work Phone: Start: 12-08-2024 End: 12-08-2024 Patient encounter procedure Ovi Crooks DO -[facility] Work Phone: Start: 12-05-2024 Non-patient / Non-visit Ovi monique DO -[facility] [employer] [facility] Work Phone: Start: 11-24-2024 End: 11-24-2024 ambulatory Ovi Crooks DO Work Phone: [facility] Work Phone: Start: 11-24-2024 End: 11-24-2024 Patient encounter procedure Brigitte Morris [employer]MENT [employer]PER -[facility] Work Phone: Start: 10-23-2024 Non-patient / Non-visit Ovi monique DO -[facility] [employer] [facility] Work Phone: Start: 09-30-2024 Non-patient / Non-visit Ovi monique DO -[facility] Work Phone: Start: 09-08-2024 End: 09-08-2024 ambulatory Isaac Guy MD Facility: [facility] Start: 09-03-2024 Non-patient / Non-visit Ovi monique DO [facility] Work Phone: Start: 09-02-2024 End: 09-02-2024 ambulatory [facility] Work Phone: Start: 09-02-2024 End: 09-02-2024 Patient encounter procedure [facility]Note 2[facility] Work Phone: Start: 08-25-2024 End: 08-25-2024 ambulatory [facility] Work Phone: Start: 08-25-2024 End: 08-25-2024 Patient encounter procedure [facility] Work Phone: Start: 05-06-2024 End: 05-06-2024 ambulatory [facility] Work Phone: Start: 05-06-2024 End: 05-06-2024 Patient encounter procedure [facility] Work Phone: Start: 04-14-2024 End: 04-14-2024 Office outpatient visit 25 minutes Brigitte Yang [employer] [facility] Comment on above: Obstructive sleep ap ravi syndrome (Primary Dx); Cerebral infarction, left hemisphere (CMS/HCC); Hypoxia; Sleep deprivation Start: 04-14-2024 End: 04-14-2024 ambulatory BRIGITTE YANG Not Available Start: 04-14-2024 End: 04-14-2024 Bamboo flowsheet Brigitte Yang [employer] Work Phone: [facility] Start: 04-14-2024 End: 04-14-2024 Bamboo flowsheet Brigitte Yang [employer] Work Phone: [facility] Start: 03-17-2024 End: 03-17-2024 ambulatory [facility] Work Phone: Start: 03-17-2024 End: 03-17-2024 Patient encounter procedure [facility] Physician [facility] Work Phone: Start: 03-10-2024 Non-patient / Non-visit [facility] Physician [facility] Work Phone: Start: 03-09-2024 Non-patient / Non-visit [facility] Physician [facility] Work Phone: Start: 03-08-2024 Non-patient / Non-visit [facility] Physician [facility] Work Phone: Start: 02-27-2024 Non-patient / Non-visit [facility] Physician [facility] Work Phone: Start: 02-25-2024 End: 02-25-2024 ambulatory [facility] Work Phone: Start: 02-25-2024 End: 02-25-2024 Patient encounter procedure [facility] Physician [facility] Work Phone: Start: 02-15-2024 End: 02-15-2024 Refill Torres Rosa MD Work Phone: [facility] Comment on above: LPRD (laryngopharyng eal reflux disease) Start: 01-17-2024 End: 01-17-2024 Refill Alejandro Monteiro MA [facility] [address] Comment on above: Cerebral infarction, left hemisphere (CMS/HCC) (Primary Dx) Start: 01-01-2024 End: 01-01-2024 ambulatory [facility] Work Phone: Start: 01-01-2024 End: 01-01-2024 Patient encounter procedure [facility] Physician [facility] Work Phone: Start: 11-07-2023 Non-patient / Non-visit [facility] Physician [facility] Work Phone: Start: 10-08-2023 End: 10-08-2023 ambulatory BRIGITTE YANG Not Available Start: 09-26-2023 End: 09-26-2023 ambulatory TORRES Garzon TIMMIS Not Available Start: 08-15-2023 End: 08-15-2023 ambulatory TORRES H TIMMIS Not Available Start: 07-20-2023 End: 07-20-2023 ambulatory [facility] Work Phone: Start: 07-20-2023 End: 07-20-2023 Patient encounter procedure [facility] Work Phone: Start: 07-04-2023 End: 07-04-2023 Patient encounter procedure [facility] Work Phone: Start: 04-17-2023 End: 04-17-2023 ambulatory Ovi Ball Other [facility] Other Start: 04-17-2023 Telephone encounter Ovi Ball [facility] Start: 03-13-2023 End: 03-13-2023 ambulatory Ovi Ball Other [facility] Other Start: 03-13-2023 Telephone encounter Ovi Ball [facility] Start: 03-07-2023 End: 03-07-2023 ambulatory Ovi Ball Other [facility] Other Start: 03-07-2023 Telephone encounter Ovi Ball [facility] Start: 03-01-2023 End: 03-01-2023 ambulatory Ovi Ball Other [facility] Other Start: 03-01-2023 Telephone encounter Ovi Ball [facility] Start: 02-28-2023 End: 02-28-2023 ambulatory Ovi Ball Other [facility] Other Start: 02-28-2023 Telephone encounter Ovi Ball [facility] Start: 02-22-2023 End: 02-22-2023 ambulatory Ovi Crooks Other [facility] Other Start: 02-22-2023 Telephone encounter Ovi Crooks [facility] Start: 02-21-2023 End: 02-21-2023 ambulatory Ovi Crooks Other [facility] Other Start: 02-21-2023 Telephone encounter Ovi Crooks [facility] Start: 02-20-2023 End: 02-20-2023 ambulatory Ovi Crooks Other [facility] Other Start: 02-20-2023 Office outpatient vi sit 25 minutes Ovi Crooks [facility] Start: 01-23-2023 End: 01-23-2023 ambulatory Ovi Crooks Other [facility] Other Start: 01-23-2023 Telephone encounter Ovi Hang STACEY [facility] Start: 01-16-2023 End: 01-16-2023 ambulatory Brina Morrissey Other [facility] Other Start: 01-16-2023 Office outpatient vi sit 15 minutes [facility] Start: 01-05-2023 End: 01-05-2023 ambulatory [facility] Start: 11-23-2022 ambulatory DAVID KAPOOR . Facili ty:[facility] Start: 09-01-2022 End: 09-02-2022 ambulatory DAVID KAPOOR . Facility:[facility] Start: 07-31-2022 End: 07-31-2022 ambulatory Brina Morrissey Other [facility] Other Start: 07-31-2022 Telephone encounter Brina Wright [facility] Start: 07-26-2022 End: 07-27-[address] OVI CROOKS Facility:[facility] Start: 07-26-2022 End: 07-26-2022 ambulatory [facility] Start: 07-25-2022 End: 07-25-2022 ambulatory NARENDRANATH LAKSHMIPATHY . Facility:[facility] Start: 07-20-2022 End: 07-21-2022 ambulatory NARENDRANATH LAKSHMIPATHY . Facility:[facility] Start: 07-19-2022 End: 07-20-[address] OVI CROOKS [facility] Other Start: 07-19-2022 Telephone encounter Ovi Crooks [facility] Start: 07-17-2022 End: 07-17-2022 ambulatory Ovi Crooks Other [facility] Other Start: 07-17-2022 Patient encounter procedure Ovi GUERRERO [facility] Start: 06-20-2022 End: 06-20-[address] ELIZABETH JESSICA . Facility:[facility] Start: 06-07-2022 Telephone encounter Brina Wright [facility] Start: 06-07-2022 End: 06-07-2022 ambulatory [facility] Other Start: 05-20-2022 Encounter for preprocedural laboratory examination [facility] Start: 05-15-2022 End: 05-16-2022 ambulatory [facility] Facility:[facility] Start: 05-15-2022 End: 05-16-2022 Encounter for preprocedural laboratory examination [facility] Facility:[facility] Start: 05-09-[address] ELIZABETH JESSICA [...] 01-18-2022 End: 01-18-2022 ambulatory Brina Morrissey Other [facility] Other Start: 01-18-2022 Office outpatient vi sit 15 minutes Brina Morrissey [facility] Start: 01-09-2022 End: 01-10-2022 ambulatory MARY CRISTOBAL . Facility:[facility] Start: 12-29-2021 End: 12-30-2021 ambulatory MARY CRISTOBAL . Facility:[facility] Start: 12-21-2021 End: 12-21-2021 ambulatory Brina Morrissey Other [facility] Other Start: 12-21-2021 Office outpatient ne w 30 minutes Brina Morrissey [facility] Start: 12-21-2021 End: 12-21-2021 Patient encounter procedure MD Brina Morrissey Work Phone: [facility] Start: 12-13-2021 End: 12-13-[address] ELIZABETH JESSICA . Facility:[facility] Start: 12-01-2021 End: 12-02-2021 ambulatory MARY CRISTOBAL . Facility:[facility] Start: 09-14-2021 End: 09-15-[address] OVI CROOKS Facility:[facility] Start: 08-17-2021 Adult health examination Brina Morrissey Other [facility] Other Start: 12-25-2017 End: 12-25-2017 Patient encounter Quinn Armendariz Facility:[facility] Start: 12-18-2017 End: 12-18-2017 Patient encounter Quinn Armendariz Facility:[facility] Procedures Date Procedure Procedure Detail Performing Clinician Start: 03-08-2024 Anaerobe Identificat ion Only Start: 03-08-2024 Blood Culture 1 Start: 07-26-2022 Follow-up visit Follow-up JEMAL MEDEIROS Start: 12-21-2021 Plain X-ray of castillo singh MD Brina Morrissey Work Phone: Start: 03-26-2018 Screening for osteoporosis Brina Morrissey Other Start: 08-05-2015 Screening for malign ant neoplasm of colon Brina Morrissey Other Start: 08-05-2015 Screening mammography C oleliz Morrissey Other Cough 786.2 Brinaishmael Morrissey Depression screening Brina Morrissey Other Screening for malign ant neoplasm of breast Brina Morrissey Other Plan of Treatment Date Care Activity Detail Author Start: 09-08-2024 End: 09-08-2024 Patient encounter procedure 09/08/2024 11:00 AM EDT Office Visit [facility] [address] [place] [id number] Brigitte Yang NP [address] [place], [place] [facility] [address] Start: 04-14-2024 End: 04-14-2024 Patient encounter procedure [facility] [address] Comment on above: Arrived Start: 12-30-2023 Influenza vaccination Influenz a Vaccine (#1) [facility] metabo lic 1999 panel - Serum or Plasma [facility] Comprehensive metabo lic 1999 panel - Serum or Plasma [facility] Comprehensive metabo lic 1999 panel - Serum or Plasma [facility] CT Chest WO contrast [facility] CT Chest WO contrast [facility] MG Breast - bilatera l Screening [facility] Immunizations Immunization Date Immunization Notes Care Provider Fa cilibenedicto 02-25-2024 influenza, high dose seasonal, preservative-free [facility] 02-17-2022 influenza, high dose seasonal, preservative-free Ovi Crooks Other [facility] Other 02-17-2022 influenza virus vaccine, split virus (incl. purified surface antigen) Brina Morrissey Other [facility] Other 02-17-2022 influenza virus vaccine, unspecified formulation [facility] 04-04-2021 COVID-19 Vaccine Pfi zer - Documentation Purposes Only Oiv Crooks Other [facility] 01-17-2021 influenza virus vaccine, split virus (incl. purified surface antigen) Brina Morrissey Other [facility] Other 01-17-2021 influenza virus vaccine, unspecified formulation [facility] 06-17-2020 COVID-19 Vaccine Pfi zer - Documentation Purposes Only Ovi Crooks Other [facility] 05-27-2020 COVID-19 Vaccine Moderna - Documentation Purposes Only Brina Morrissey Other [facility] 05-27-2020 COVID-19 Vaccine Pfi zer - Documentation Purposes Only Ovi Crooks Other [facility] 03-10-2020 influenza virus vaccine, split virus (incl. purified surface antigen) Brina Morrissey Other [facility] Other 03-10-2020 influenza virus vaccine, unspecified formulation [facility] 03-07-2019 influenza virus vaccine, split virus (incl. purified surface antigen) Brina Morrissey Other [facility] Other 03-07-2019 influenza virus vaccine, unspecified formulation [facility] 03-27-2018 influenza virus vaccine, split virus (incl. purified surface antigen) Brina Morrissey Other [facility] Other 03-27-2018 influenza virus vaccine, unspecified formulation [facility] 03-16-2017 pneumococcal Conjuga te, unspecified formulation; Translations: [Need for prophylactic vaccination against Streptococcus pneumoniae (pneumococcus)] Brina Morrissey Other [employer] Other 03-16-2017 pneumococcal polysaccharide vaccine, 23 valent Ovi Crooks Other [facility] 11-17-2016 pneumococcal conjuga te vaccine, 13 valent Ovi Crooks Other [facility] 02-09-2016 influenza virus vaccine, split virus (incl. purified surface antigen) Brina Morrissey Other [facility] [employer] Other 02-09-2016 influenza virus vaccine, unspecified formulation [facility] Payers Date Payer Category Payer Medicare [id number] 2016 [facility] er [id number] 2016 Unknown [id number] [id number] .[id number] 2007 Medicare [id number]. 1.13.693.2 .[id number] 1959 Medicare [id number] 1959 Unknown [id number] 1942 Unknown [id number] 2.840.1.817059.3.579.2 .593 1942 Unknown [id number] 2.16.840.1.000683.3.579.2 .593 1942 Unknown [id number] 2.16.840.1.499185.3.579.2 .593 1942 Unknown [id number] 2.16.840.1.563277.3.579.2 .593 1942 Unknown [id number] 2.16.840.1.118556.3.579.2 .593 1942 Unknown [id number] 2.16.840.1.830282.3.579.2 .593 1942 Unknown [id number] 2.16.840.1.191133.3.579.2 .593 1942 Unknown [id number] 2.16.840.1.285614.3.579.2 .593 1942 Unknown [id number] 2.16.840.1.821651.3.579.2 .593 1942 Unknown [id number] 2.16.840.1.319233.3.579.2 .593 1942 Unknown [id number] 2.16.840.1.311840.3.579.2 .593 1942 Unknown [id number] 2.16.840.1.595382.3.579.2 .593 1942 Unknown [id number] 2.16.840.1.200615.3.579.2 .593 1942 Unknown [id number] 2.16.840.1.009828.3.579.2 .593 1942 Unknown [id number] 2.16.840.1.840889.3.579.2 .593 1942 Unknown [id number] 2.16.840.1.439253.3.579.2 .593 1942 Unknown [id number] 2.16.840.1.575257.3.579.2 .593 1942 Unknown [id number] 2.16.840.1.436856.3.579.2 .593 1942 Unknown [id number] 2.16.840.1.627743.3.579.2 .593 1942 Unknown [id number] 2.16.840.1.678999.3.579.2 .593 1942 Unknown [id number] 2.16.840.1.465784.3.579.2 .593 1942 Unknown [id number] 2.16.840.1.541874.3.579.2 .593 1942 Unknown [id number] 2.16.840.1.255114.3.579.2 .593 1942 Unknown [id number] 2.16.840.1.360410.3.579.2 .593 1942 Unknown [id number] 2.16.840.1.888959.3.579.2 .1259 1942 Unknown [id number] 2.16.840.1.770033.3.579.2 .1259 1942 Unknown [id number] 2.16.840.1.040307.3.579.2 .1259 1942 Unknown [id number] 2.16.840.1.896528.3.579.2 .1259 1942 Unknown [id number] 2.16.840.1.369618.3.579.2 .196 Social History Date Type Detail [facility] Work Phone: Start: 1940 Sex Assigned At Female F [facility] Start: 10-08-2023 End: 04-14-2024 [facility] Start: 06-28-2023 End: 06-28-2023 Tobacco smoking status NHIS Never smoked tobacco (finding) [facility] Start: 08-09-2023 Tobacco use and exposure [...] Start: 03-17-2024 End: 09-02-2024 Sex Female (finding) [facility] Clinical Notes 12-01-2021 to 11-24-2024 Note Date & Type Note Facility 11-24-2024 Evaluation note Diagnosis Onset Date Resolution Cerebral infarction, left hemisphere acute November 24, 2024 12:37pm Hypersomnia acute November 24 12:37pm Obstructive sleep apnea acute J saul 2024 12:37pm Primary insomnia acute October 12:37pm ASHD (arteriosclerotic heart disease) acute December 08 9:47am Cerebral atherosclerosis acute December 08, 2024 9:47am Elevated cholesterol acute 2024 9:47am Elevation of levels of liver transaminase levels acute December 08, 2024 9:47am Lumbar spondylosis acute December 08, 2024 9:47am Major depressive disorder, recurrent, in full remission acute December 08 9:47am Mild persistent asthma without complication acute November 9:47am Multiple pulmonary nodules acute December 08 9:47am Obesity acute December 08, 025 9:47am Obstructive sleep apnea acute A ugust 2024 9:47am Primary hypertension acute 2024 9:47am Primary insomnia acute November 282024 9:47am Renal mass, left acute November 282024 9:47am [facility] Work Phone: 1([phone] 580-240905-06-2025 Evaluation note* Diagnosis Onset Date Resolution Status Admit Date Arthritis of carpometacarpal (CMC) joint of left thumb acute September 02 10:11am Arthritis of carpometacarpal (CMC) joint of right thumb acute September 02 10:11am Carpal tunnel syndrome, left acute September 02, 2024 10:11am Carpal tunnel syndrome, right acute September 02, 2024 10:11am [facility] Work Phone: 1(478) 561-687104-28-2025 Evaluation note* Diagnosis Onset Date Resolution Status Admit Date ASHD (arteriosclerotic heart disease) acute August 25, 2024 9:55am Cerebral atherosclerosis acute August 25, 2024 9:55am Elevated cholesterol acute Apr2024 9:55am Elevation of levels of liver transaminase levels acute August 25, 2024 9:55am Lumbar spondylosis acute August 25, 2024 9:55am Major depressive disorder, recurrent, in full remission acute Apr 2024 9:55am Mild persistent asthma witho ut complication acute August 25, 2024 9:55am Multiple pulmonary nodules acute August 25, 2024 9:55am Obesity acute August 25 9:55am Obstructive sleep apnea acute A pril 2024 9:55am Primary hypertension acute 2024 9:55am Medicare annual wellness vis it, subsequent noneactive August 25, 2024 9:55am Screening mammogram for jay st cancer noneactive August 25, 2024 9:55am Arthritis of carpometacarpal (CMC) joint of left thumb acute August 10:11am Arthritis of carpometacarpal (CMC) joint of right thumb acute September 022024 10:11am Carpal tunnel syndrome, left acute September 02, 2024 10:11am Carpal tunnel syndrome, right acute September 02, 2024 10:11am [facility] Work Phone: [phone]) 260-798710-28-2024 Evaluation note* Diagnosis Onset Date Resolution Status [...] syndrome, right acute May 06, 2024 8:46am [facility] Work Phone: 1(134) 483-241009-03-2024 Evaluation note* Diagnosis Onset Date Resolution Status [...] 2024 10:03am Primary hypertension acute 2023 10:03am [facility] Work Phone: 1(570) 387-613301-19-2024 Marta received fax from [facility] requesting patient hold her Plavix x7 [...] I faxed back the request to [facility] and asked them to contact Dr. Arriola for clearance.[facility]12-19-2023 Evaluation note* Encounter Date Diagnosis Assessment Notes Treatment Notes Treatment Clinical Notes Mar, Acute cerebral infarction (ICD-10 - I63.9) Mar, Cerebral atherosclerosis (ICD-10 - I67.2) [employer] Other 11-01-2023 Evaluation note* Encounter Date Diagnosis Assessment Notes Treatment Notes Treatment Clinical Notes Feb, Acute cerebral infarction (ICD-10 - I63.9) [employer] Other 11-01-2023 Evaluation note* Encounter Date Diagnosis Assessment Notes Treatment Notes Treatment Clinical Notes Feb, Bruit (ICD-10 - R09.89) [employer] Other 10-25-2023 Evaluation note* Encounter Date Diagnosis Assessment Notes Treatment Notes Treatment Clinical Notes Jan, Transient left leg weakness (ICD-10 - R29.898) Jan, Jerking movements of extremities (ICD-10 - R25.2) [employer] Other 10-24-2023 Evaluation note* Encounter Date Diagnosis [...] the risk for cerebrovascular and cardiovascular disease. [employer] Other 09-19-2023 Evaluation note* Encounter Date Diagnosis [...] Pain in left hand (ICD-10 - M79.642) [employer] Other 09-08-2023 NoteCardiology Clinic Note Chief Complaint: [...] in all muscle groups, (more content not included)...[facility]09-08-2023 NotePatient here for 6 mo follow up CAD, hypertension, and hyperlipidemia. Has not been taking aspirin because she doesn't like taking a lot of pills. Says she's only had chest pain once recently. Sees Dr. Smith and had CT chest in September. [facility]04-03-2023 Evaluation note* Encounter Date Diagnosis Assessment Notes Treatment Notes Treatment Clinical Notes Jul, Pulmonary nodule (ICD-10 - R91.1) RUL 10mm nodule - 06/3022Jul, Cough (ICD9-CM - 786.2) Jul, Mild persistent asthma without complication (ICD-10 - J45.30) [employer] Other 03-29-2023 NoteCardiology Clinic Note Chief Complaint: [...] motor function in all (more content not included)...[facility]03-23-2023 NoteCONSULTATION CONSULTATION DATE: 07/20/2022 TO: Dr. Crooks [...] be helping some of her pain symptoms.[facility] [id number] Evaluation note* Encounter Date Diagnosis Assessment Notes Treatment Notes Treatment Clinical Notes Jun, Pulmonary nodule (ICD-10 - R91.1) RUL 10mm nodule - 06/3022 [employer] Other 03-20-2023 Evaluation note* Encounter Date Diagnosis [...] mammogram for breast cancer (ICD-10 - Z12.31) [employer] Other 02-08-2023 Evaluation note* Encounter Date Diagnosis Assessment Notes Treatment Notes Treatment Clinical Notes May, ASHD (arterioscleroti c heart disease) (ICD-10 - I25.10) LHC: moderate, nonobstructive coronary disease - 05/2022 [employer] Other 02-08-2023 NotePatient here for follow up [...] light-headedness. All other systems reviewed and are negative.[facility] 06-07-2022 NoteCardiology Clinic Note Chief Complaint: abnormal [...] Value Ventricular Rate [address] Interval 186 QRS DURATION 142 QT Interval 472 QTC CALCULATION(BAZETT) 442 P Matador 29 R-Matador -35 T Wave Matador 59 Impression Sinus bradycardia Left axis deviation Left bundle branch block Abnormal ECG When compared with ECG of 30-NOV-2008 12:01, Premature atrial comple (more content not included)...[facility]10-27-2022 NoteCONSULTATION CONSULTATION DATE: 02/23/2022 This is a [...] will be followed in the clinic thereafter.[facility] [id number] Evaluation note* Encounter Date Diagnosis Assessment Notes [...] in both duran ds (ICD-10 - R20.0) [employer] Other 09-01-2022 NoteCONSULTATION CONSULTATION DATE: 12/29/2021 HISTORY [...] patient is in agreement to move forward.[facility] [id number] Evaluation note* Encounter Date Diagnosis Assessment Notes [...] in both duran ds (ICD-10 - R20.0) [employer] Other 08-04-2022 NoteCONSULTATION CONSULTATION DATE: 12/01/2021 HISTORY [...] followed up in the office post procedure.[facility] information [facility] Work Phone: Evaluation noteNo InformationNort [employer] Other Evaluation note* Diagnosis Onset Date Resolution [...] mammogram for breast cancer noneactive [facility] Work Phone: Evaluation note* Diagnosis Onset Date Resolution Status Arthritis of carpometacarpal (CMC) joint of left thumb acute Arthritis of carpometacarpal (CMC) joint of right thum b acute Carpal tunnel syndrome, left acute Carpal tunnel syndrome, right acute [facility] Work Phone: Evaluation note* Diagnosis LPRD (laryngopharyngeal reflux disease) Acute laryngitis, without mention of obstruction documented in this encounter [facility]* Diagnosis Onset Date Resolution [...] sleep apnea acut e Primary hypertension acute [facility] Work Phone: Evaluation note* Diagnosis Obstructive sleep apnea syndrome- Primary Obstructive sleep apnea (adult) (pediatric) Cerebral infarction, left hemisphere (CMS/HCC) Unspecified cerebral artery occlusion with cerebral infarction Hypoxia Hypoxemia Sleep deprivation Problems related to lack of adequate sleep documented in this encounter [facility] HealthcareEvaluation note* Diagnosis Cerebral infarction, left hemisphere (CMS/HCC)- Primary Unspecified cerebral artery occlusion with cerebral infarction documented in this encounter [facility] HealthcareEvaluation note* Diagnosis Onset Date Resolution Status Admit Date ASHD (arteriosclerotic heart disease) acute August 25, 2024 9:55am Cerebral atherosclerosis acute August 25, 2024 9:55am Elevated cholesterol acute Apri 2024 9:55am Elevation of levels of liver [...] st cancer noneactive August 25, 2024 9:55am [facility] Work Phone: Hisxqox general Narrative - Reported* Type Description Date Medical History Esophageal reflux Medical History seasonal allergies Medical History DIVINA Medical History Hypertension Surgical History APPENEDECTOMY Surgical History HYSTERECTOMY Surgical History SINUS Surgical History LEFT HAND Surgical History HEART CATH Surgical History CHOLECYSTECTOMY [employer] Other Hisyoud general Narrative - Reported* Type Description Date Medical History Esophageal reflux Medical History seasonal allergies Medical History DIVINA Medical History Hypertension Medical History ASHD (arteriosclerotic heart dis ease) Surgical History APPENEDECTOMY Surgical History HYSTERECTOMY Surgical History SINUS Surgical History LEFT HAND Surgical History HEART CATH Surgical History CHOLECYSTECTOMY Surgical History cardiac catheterization 06/07/22 [employer] Other Hiscypk general Narrative - Reported* Type Description Date [...] catheterization 06/07/22 Hospitalization History SEE SURGICAL HX [employer] Other Reason for referral (narrative)No reason for referral [facility] Work Phone: Summary Purpose Family History Relationship Condition Age [...] tunnel syndrome, right September 02, 025 10:11am Chief Complaint Admit Date 3 MONTHS September [...] tunnel syndrome, right September 02, 025 10:11am Chief Complaint Admit Date 5-6 Month Follow up November 24, 2024 12:3 7pm 4 month f/u-HIGH RISK December 08, 2024 9:47am Reason for Visit Admit Date Cerebral infarction, left hemisphere Xavier y 2024 12:37pm Hypersomnia November 24, 2024 12:3 7pm Obstructive sleep apnea November 24, 2024 12:37pm Primary insomnia November 24, 2024 12:3 7pm ASHD (arteriosclerotic heart disease) Au kings 2024 9:47am Cerebral atherosclerosis December 08 9:47am Elevated cholesterol December 08, 2024 9 :47am Elevation of levels of liver transaminas e levels December 08, 2024 9:47am Lumbar spondylosis December 08, 2024 9: 47am Major depressive disorder, recurrent, in full remission December 08, 2024 9:47am Mild persistent asthma without complicat ion December 08, 2024 9:47am Multiple pulmonary nodules December 08, 2024 9:47am Obesity December 08, 2024 9: 47am Obstructive sleep apnea December 08 9:47am Primary hypertension December 08, 2024 9 :47am Primary insomnia December 08, 2024 9: 47am Renal mass, left December 08, 2024 9: 47am Additional Source Comments INFORMATION SOURCE (unrecogn ized section and content) DATE CREATED AUTHOR 12/29/2017 [facility] DATE CREATED AUTHOR AUTHOR'S ORGANIZ ATION 12/25/2021 [facility] DATE CREATED AUTHOR AUTHOR'S ORGANIZ ATION 09/08/2022 [facility] DATE CREATED AUTHOR AUTHOR'S ORGANIZ ATION 05/19/2023 [facility] DATE CREATED AUTHOR AUTHOR'S ORGANIZ ATION 04/16/[address] [facility] DATE CREATED AUTHOR AUTHOR'S ORGANIZ ATION 09/24/2024 [facility] Teams (unrecognized sec tion and content) Team Status: Active Member Role Status Dates Ovi Crooks DO Primary Care Provider Active Team Status: Active Member Role Status Dates Ovi Crooks DO Primary Care Provider Active Start: September 30, 2024 Ovi Crooks DO Attending Provider Active Sta rt: September 30, 2024 Team Status: Active Member Role Status Dates Ovi Crooks DO Primary Care Provider Active Start: October 23, 2024 Ovi Crooks DO Attending Provider Active Sta rt: October 23, 2024 Team Status: Inactive Member Role Status Dates Ovi Crooks DO Primary Care Provider Active Start: November 24, 2024 End: November 24, 2024 Brigitte Yang APRN Attending Provider Active Start: November 24, 2024 End: November 24, 2024 Team Status: Active Member Role Status Dates Ovi Crooks DO Primary Care Provider Active Start: December 05, 2024 Ovi Crooks DO Attending Provider Active Sta rt: December 05, 2024 Team Status: Inactive Member Role Status Dates Ovi Crooks DO Primary Care Provider Active Start: December 08, 2024 End: December 08, 2024 Ovi Crooks DO Attending Provider Active Sta rt: December 08, 2024 End: December 08, 2024 Team Status: Active Member Role Status Javier Crooks DO Primary Care Provider Active Team Status: Inactive Member Role Status Javier Crooks DO Primary Care Provider Active Start: January 01, 2024 End: January 01, 2024 Brina Morrissey MD Attending Provider Active Start: January 01, 2024 End: January 01, 2024 Team Status: Inactive Member Role Status Javier Crooks DO Primary Care Provide r, Attending Provider Active Start: February 25, 2024 End: February 25, 2024 Team Status: Active Member Role Status Javier Crooks DO Primary Care Provide r, Attending Provider Active Start: November 07, 2023 Team Status: Inactive Member Role Status Dates Brina Morrissey MD Attending Provider Active Team Status: Inactive Member Role Status Javier Crooks DO Primary Care Provider Active Start: July 04, 2023 End: July 04, 2023 Brina Morrissey MD Attending Provider Active Start: July 04, 2023 End: July 04, 2023 Team Status: Inactive Member Role Status Javier Crooks DO Primary Care Provide r, Attending Provider Active Start: July 20, 2023 End: July 20, 2023 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 Relationship Specialty Start Date End Date Ovi Crooks MD [address] [place] [id number] PCP - General Internal Medicine 07/10/23 Team Status: Active Member Role Status Javier Crooks DO Primary Care Provide r, Attending [...] March 17, 2024 End: March 17, 2024 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 Relationship Specialty Start Date End Date Ovi Crooks MD [address] [place] [id number] PCP - General Internal Medicine 07/10/23 Madhavi Arriola DO [address] [id number] Referring Physician Neurology 04/14/24 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 Relationship Specialty Start Date End Date Ovi Crooks MD [address] [place] [phone] PCP - General Internal Medicine 07/10/23 Madhavi Arriola DO [address] [id number] Referring Physician Neurology 04/14/24 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 Relationship Specialty Start Date End Date Ovi Crooks MD [address] [place] [phone] PCP - General Internal Medicine 07/10/23 Team Status: Inactive Member Role Status Dates Ovi Ball , DO Primary Care Provider Active Start: May [...] September 02, 2024 End: September 02, 2024 Team Status: Active Member Role Status Dates Ovi Crooks DO Primary Care Provider Active Start: September 03, 2024 Ovi Crooks , Attending Provider Active Sta rt: September 03, 2024 Team Status: Active Member Role Status Dates Ovi Crooks DO Primary Care Provider Active Start: September 30, 2024 Ovi Crooks , DO Attending Provider Active Sta rt: September 30, 2024 Team Status: Active Member Role Status Dates Ovi Crooks DO Primary Care Provider Active Start: October 23, 2024 Ovi Crooks , DO Attending Provider Active Sta rt: October 23, 2024 Team Status: Inactive Member Role Status Dates Ovi Crooks DO Primary Care Provider Active Start: November 24, 2024 End: November 24, 2024 Brigitte Yang APRN Attending Provider Active Start: November 24, 2024 End: November 24, 2024 Team Status: Active Member Role Status Dates Ovi Crooks DO Primary Care Provider Active Start: December 05, 2024 Ovi Crooks , DO Attending Provider Active Sta rt: December 05, 2024 Team Status: Inactive Member Role Status Dates Ovi Crooks DO Primary Care Provider Active Start: December 08, 2024 End: December 08, 2024 Ovi Crooks , DO Attending Provider Active Sta rt: December 08, 2024 End: December 08, 2024 Goals (unrecognized section and content) Goals [...] BE BASED ON THE PRIMARY CLINICAL RECORDS. [employer] provides no warranty or guarantee of the accuracy or completeness of information in this document.
[2024-12-22 10:41] VITALS: BP 109/65; PULSE 68; TEMP 36.1; O2SAT 96
[2024-12-22 11:16] VITALS: BP 127/61; PULSE 68; O2SAT 95
[2024-12-22 11:17] VITALS: BP 135/67; PULSE 67; O2SAT 96
[2024-12-22] MEDS: 0.9 % SODIUM CHLORIDE 10 ML SYRINGE - SALINE FLUSH INJ (11:21)
[2024-12-22] MEDS: BUPIVACAINE HCL 0.25% PF 25 MG/10 ML VIAL INJ (11:21)
--- NOTE | 2024-12-22 11:21 | P.ON_ITS ---
Date of procedure: 12/22/24 Pre-op diagnosis: Pain due to lumbar stenosis with neurogenic claudication Post-op diagnosis: same as pre-op Procedure: Procedure: Right L4-5, L5-S1 transforaminal epidural steroid injection Medications: Bupivacaine 0.25% 2cc, lidocaine 2% 1cc, depomedrol 80mg The patient was seen and examined in the preoperative holding area.? Informed consent was obtained and placed on the chart.? Patient was brought to the medical procedure unit and placed in the prone position where a timeout was completed verifying the correct patient, procedure site, position, and planned special equipment using sterile aseptic technique.? Under direct fluoroscopic visualization a 25-gauge Quincke tipped spinal needle was advanced to the designated neural foramen where contrast dye was injected to show adequate spread.? The needle was inserted at level right L4-5. There was no evidence of vascular or adverse uptake.? Epidural spread was appreciated.? The above- mentioned injectate was then placed in a 1.5 mL aliquot preceded by negative aspiration.? The needle was removed. The needle was inserted and the procedure repeated at level right L5-S1.? The surgery site was covered.? Patient was taken to the postprocedural recovery area and monitored for an appropriate length of time before found suitable for discharge in the accompaniment of a responsible adult. Anesthesia: Local Surgeon: Isaac Guy Pathology: none sent Condition: stable Disposition: no change
[2024-12-22] MEDS: LIDOCAINE HCL 2% 400 MG/20 ML MDV 3 ML INJ (11:22)
[2024-12-22] MEDS: METHYLPREDNISOLONE ACETATE 80 MG/ML VIAL INJ (11:22)
[2024-12-22] MEDS: IOHEXOL 240 MG/ML - 10 ML VIAL 24 MG INJ (11:22)
== END 2024-12-22 11:27 | disposition home or self-care (01) ==
PROVIDERS: PCP Internal Medicine; Visit Provider Anesthesiology
DX: M48.062 Spinal stenosis, lumbar region with neurogenic claudication (principal)
CPT/HCPCS: 64483; 64484; J0665; J1010; Q9966

== ENCOUNTER 2025-01-01 08:16 | Outpatient (OUT) | payer MEDICARE, BC, SELFPAY ==
--- NOTE | 2025-01-01 08:31 | PM.CN ---
Consult Note: HPI Data of Consult Patient: known to practice within the last 3 years Consult date: 01/01/25 Requesting Physician: Kelly Lott NP Primary Care Provider: Ovi Crooks DO Consult Narrative Reason for consult: low back and RLE pain Narrative: Rupali Richardson a pleasant 84 year old female presents for evaluation of chronic low back pain secondary to lumbar stenosis, lumbar ddd, and lumbar spondylosis. Pt has failed to benefit from > 6 weeks of PT/HEP, heat, ice, tylenol, nsaids. recently underwent right L4-5 L5-S1 TFESI with significant ongoing improvement, >80% improvement in pain and functional ability per pt. Pain 0/10, JORGE 18%. continues to utilize tylenol and gabapentin, cannot take NSAIDs as she is on plavix. has not needed baclofen but has available at home. denies fall/injury since last visit. cc:: CC: Kelly Lott NP Review of Systems ROS Musculoskeletal Denies: back pain or extremity pain [facility] History (Updated 12/03/24 @ 08:47 by Kelly Lott NP) Acute hypotension ?I95.9 - Hypotension, unspecified (ICD-10) Pleuritic chest pain ?R07.81 - Pleurodynia (ICD-10) Anticoagulant long-term use ?Z79.01 - long-term (current) use of anticoagulants (ICD-10) Lumbar spondylosis ?M47.816 - Spondylosis without myelopathy or radiculopathy, lumbar region (ICD-10) Numbness and tingling ?R20.0 - Anesthesia of skin (ICD-10) ?R20.2 - Paresthesia of skin (ICD-10) Osteoarthritis ?M19.90 - Unspecified osteoarthritis, unspecified site (ICD-10) Upper back pain ?M54.9 - Dorsalgia, unspecified (ICD-10) Low back pain ?M54.50 - Low back pain, unspecified (ICD-10) Acid reflux ?K21.9 - Gastro-esophageal reflux disease without esophagitis (ICD-10) Obesity ?E66.9 - Obesity, unspecified (ICD-10) Sleep apnea ?G47.30 - Sleep apnea, unspecified (ICD-10) Atrial fibrillation ?I48.91 - Unspecified atrial fibrillation (ICD-10) Surgical History 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 - Acquired absence of unspecified finger(s) (ICD-10) S/P lumbar spine operation ?Z98.890 - Other specified postprocedural states (ICD-10) S/P thoracentesis ?Z98.890 - Other specified postprocedural states (ICD-10) S/P sinus surgery ?Z98.890 - Other specified postprocedural states (ICD-10) H/O hand surgery ?Z98.890 - Other specified postprocedural states (ICD-10) H/O cardiac catheterization ?Z98.890 - Other specified postprocedural states (ICD-10) History of hysterectomy ?Z90.710 - Acquired absence of both cervix and uterus (ICD-10) History of cholecystectomy ?Z90.49 - Acquired absence of other specified parts of digestive tract (ICD-10) Hx of appendectomy ?Z90.49 - Acquired absence of other specified parts of digestive tract (ICD-10) Social History Highest level of school completed/degree received: high school graduate Little interest or pleasure in doing things: not at all Feeling down, depressed, or hopeless: not at all Meds Home Medications and Allergies Home Medications ?Medication ?Instructions ?Recorded ?Confirmed ?Type atorvastatin 40 mg tablet 40 mg PO DAILY 10/05/22 12/22/24 History escitalopram oxalate 10 mg tablet 10 mg PO DAILY 10/05/22 12/22/24 History (Lexapro) gabapentin 100 mg capsule 100 mg PO BID 10/05/22 12/22/24 History isosorbide mononitrate 30 mg 30 mg PO DAILY 10/05/22 12/22/24 History tablet,extended release 24 hr losartan 50 mg tablet 50 mg PO DAILY 10/05/22 12/22/24 History metoprolol tartrate 25 mg tablet 12.5 mg PO DAILY 10/05/22 12/22/24 History oxybutynin chloride 15 mg 15 mg PO DAILY 10/05/22 12/22/24 History tablet,extended release 24 hr clopidogrel 75 mg PO DAILY 04/12/23 12/22/24 History budesonide-formoterol HFA 160 2 puff inhalation Q12H 03/08/24 12/22/24 History mcg-4.5 mcg/actuation aerosol inhaler (Symbicort) hydrochlorothiazide 25 mg tablet 25 mg PO QAM 03/08/24 12/22/24 History omeprazole 40 mg capsule,delayed 40 mg PO .ACB 03/08/24 12/22/24 History release baclofen 10 mg tablet 10 mg PO BID PRN muscle spasm #180 12/03/24 12/22/24 Rx tabs fexofenadine 180 mg tablet 180 mg PO DAILY 12/22/24 12/22/24 History (Leslie Allergy) Allergies Allergy/AdvReac Type Severity Reaction Status Date / Time midazolam (From Versed) Allergy Unknown Vomiting Verified 12/22/24 10:43 Exam Constitutional Documenting provider has reviewed patient's vital signs: yes Common normals: no apparent distress, oriented x3, healthy appearing, alert and well nourished General appearance: cooperative HENMT Common normals: normocephalic, hearing grossly normal bilaterally and moist oral mucous membranes Head and scalp: normocephalic Eye Common normals: PERRL Pupil: PERRL Neck & C-Spine Common normals: full ROM General: normal visual inspection Chest Common normals: inspection of chest normal Respiratory Common normals: normal respiratory effort, no retractions and no use of accessory muscles Back & Pelvis Thoracic spine/upper back: thoracic spinal tenderness (right T9-12); no pain with ROM Lumbar spine/lower back: lumbar spinal tenderness and straight leg raise negative bilaterally; no pain with ROM Sacroiliac joints: SI joints normal Other: decreased sensation right L4,5,S1 strength 5/5 in BLE Neuro Common normals: oriented x3 Sensorium/orientation: alert Psych Common normals: mental status grossly normal, thought process normal, cooperative, affect normal, speech normal and activity/motor behavior normal Speech: normal speech Thought process: normal thought process Results Additional Findings Additional findings: If on a controlled substance or opioids, I have checked an [place]AR[place] report on this patient and there are no aberrancies noted in the prescribing history.??If on a controlled substance or opioid a drug screen was completed and reviewed within the last year, and if there has not been a drug screen completed we ordered one today to monitor higher risk, state monitored pain medication use. As part of providing excellent, safe, comprehensive care, the following was completed at our patient's visit: 1. A medication reconciliation and review to ensure accurate knowledge of current/active medications, including asking our patients to inform us about any scoq-ltc-iqcazsx medications or herbal remedies/nutritional supplements/alternative remedies. 2. A review to specifically ensure our patients have had annual screening for screening for depression, screening for tobacco use, and screening for unhealthy alcohol use. For concerning screenings had a discussion with the patient, provided patient education, and recommended follow-up with primary care provider when appropriate. If patient noted with a risk of falling, they received education on strength, gait, and balance training to prevent future risk of falling. Portions of this note may have been carried over from the previous visit and updated as appropriate. Please note this office utilizes paper charting in addition to the electronic medical record. A list of current medications, vitals, and PMH is available there as the clinical staff outside of myself do not have access to [employer] charting during the clinic day operations. As part of providing quality comprehensive care the current medications, vitals, and PMH were reviewed in the paper chart. Assessment and Plan Assessment and Plan (1) Lumbar stenosis with neurogenic claudication: Assessment and Plan: 12/22/24 right L4-5 L5-S1 TFESI >80% improvement ongoing (2) Sacroiliitis: (3) Myalgia, other site: (4) Lumbar spondylosis: Plan continue HEP as tolerated continue current medications f/u 3 months, sooner if needed as discussed
== END 2025-01-01 08:17 | disposition home or self-care (01) ==
LOC: PM 08:16
PROVIDERS: PCP Internal Medicine; Visit Provider Nurse Practitioner
DX: M48.062 Spinal stenosis, lumbar region with neurogenic claudication (principal); M46.1 Sacroiliitis, not elsewhere classified; M79.18 Myalgia, other site; M47.816 Spondylosis without myelopathy or radiculopathy, lumbar region
CPT/HCPCS: G0463

== ENCOUNTER 2025-04-02 08:14 | Outpatient (OUT) | payer MEDICARE, BC, SELFPAY ==
--- OUTSIDE RECORDS SUMMARY | 2023-10-29 05:00 | XMS_ITS ---
Author Organization The [facility] in [place] Address [address] [place] [address] Care Team Providers Care Paid Search Marketing Analyst Name Role Phone Ovi Crooks DO Primary Care Provider Rogelio Pearl Unavailable [phone] REASON FOR VISIT F/U -1 YEAR ASTHMA Encounters Encounter Location Date Provider Diagnosis Pulmonary Medicine [address] [address] 10/29/2023 Rogelio Smith Plan Of Treatment No Information Progress Notes * Rupali R[place]ON LDOB:[birth year] (84 yo F)Acc No.[id number]:10/29/2023 UNLOCKED PROGRESS NOTE Follow Up Patient: Rupali ARANGO :?Rogelio Smith DODOB:1940???Age:82 Y ???Sex:FemaleDate:4Phone:[phone]:[address] [place] [address], [id number]:Ovi Crooks DO Subjective: * Chief Complaints: * 1 . F/U -1 YEAR ASTHMA. * Medical History: Objective: * Vitals: Assessment: Plan: * Treatment: * * Electronic signature of Rogelio Smith DO on 04/02/2025 at 08:18 AM ESTSign off status: PendingVisit Status:?R/S (Rescheduled) * Provider: Harish Smith DO Date: 0 10/29/2023 Generated for Printing/Faxing/eTransmitting on:?04/02/2025 08:18 AM EST
--- OUTSIDE RECORDS SUMMARY | 2023-10-31 08:00 | XMS_ITS ---
Author Organization The [facility] in [place] Address [address] [place] [address] Care Team Providers Care Maintenance Mechanic Supervisor Name Role Phone Ovi Crooks DO Primary Care Provider Rogelio Pearl Unavailable [phone] REASON FOR VISIT F/U -1 YEAR ASTHMA Encounters Encounter Location Date Provider Diagnosis Pulmonary Medicine [address] [address] 10/31/2023 Rogelio Smith Plan Of Treatment No Information Progress Notes * Rupali RICH[place]ON LDOB:[birth year] (84 yo F)Acc No.[id number]:10/31/2023 UNLOCKED PROGRESS NOTE Follow Up Patient: Rupali ARANGO :?Rogelio Smith DODOB:1940???Age:82 Y ???Sex:FemaleDate:4Phone:[phone]:[address] [place] [address], [id number]:Ovi Crooks DO Subjective: * Chief Complaints: * 1 . F/U -1 YEAR ASTHMA. * Medical History: Objective: * Vitals: Assessment: Plan: * Treatment: * * Electronic signature of Rogelio Smith DO on 04/02/2025 at 08:18 AM ESTSign off status: PendingVisit Status:?R/S (Rescheduled) * Provider: Harish Smith DO Date: 0 10/31/2023 Generated for Printing/Faxing/eTransmitting on:?04/02/2025 08:18 AM EST
--- OUTSIDE RECORDS SUMMARY | 2024-11-25 05:00 | XMS_ITS ---
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 Role Phone Ovi Crooks DO Primary Care Provider Rogelio Pearl Unavailable [phone] REASON FOR VISIT F/U -1 YEAR ASTHMA Encounters Encounter Location Date Provider Diagnosis Pulmonary Medicine [address] [address] 11/25/2024 oRgelio Smith Plan Of Treatment No Information Progress Notes * Rupali RICHARDSON LDOB:[birth year] (84 yo F)Acc No.[id number]:11/25/2024 UNLOCKED PROGRESS NOTE Follow Up Patient: Rupali ARANGO :?Rogelio Smith DODOB:1940???Age:84 Y ???Sex:FemaleDate:11/25/2024Phone:[phone]:[address] [place] [address], [id number]:Ovi Crooks DO Subjective: * Chief Complaints: * 1 . F/U -1 YEAR ASTHMA. * Medical History: Objective: * Vitals: Assessment: Plan: * Treatment: * * Electronic signature of Rogelio Smith DO on 04/02/2025 at 08:19 AM ESTSign off status: PendingVisit Status:?OFF CANC (OFFICE CANCEL) * Provider: Harish Smith DO Date: 0 11/25/2024 Generated for Printing/Faxing/eTransmitting on:?04/02/2025 08:19 AM EST
--- OUTSIDE RECORDS SUMMARY | 2025-04-02 08:17 | XMS_ITS | Clinical Summary ---
Author Organization [facility] Address [address] [place] [address] Care Team Providers Care Technology Applications Consultant Name Role Phone Ovi Crooks Cheyenne KENNEDY Primary Care Provider [phone] Madhavi Arriola DO Unavailable [phone] Allergies Active AllergyReactionsCriticalityNoted DateCommentsMidazolamNausea And Vomiting Rzkewn4405/10/2022 Medications MedicationSigDispense QuantityRefillsLast FilledStart DateEnd DateStatus atorvastatin (Lipitor) 40 MG tablet Take 40 mg by mouth at qcblcco4305/08/2023ctive metoprolol succinate XL (Toprol-XL) 25 MG 24 hr tablet Take 25 mg by mouth Daily06/19/2023ctive isosorbide mononitrate ER (Imdur) 30 MG 24 hr tablet Take 30 mg by mouth Daily05/08/2023ctive budesonide-formoterol (Symbicort) 160-4.5 MCG/ACT inhaler Inhale 2 puffs in the morning and 2 puffs before bedtime. Rinse mouth with water after use to reduce aftertaste and incidence of candidiasis. Do not swallow.. Active escitalopram (Lexapro) 10 MG tablet Take 10 mg by mouth DailyActive gabapentin (Neurontin) 100 MG capsule Take 100 mg by mouth in the morning and 100 mg before bedtime.Active hydroCHLOROthiazide (HYDRODiuril) 25 MG tablet Take 25 mg by mouth DailyActive losartan (Cozaar) 50 MG tablet Take 50 mg by mouth DailyActive omeprazole (PriLOSEC) [address] capsule Indications:LPRD (laryngopharyngeal reflux disease)Take 1 capsule (40 mg) by mouth in the morning. Take before meals. Do not crush or chew.. 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 10/08/2023erebral infarction, left utiyuhvqsk58/10/2024ight hemiparesis 10/08/2023Sleep nvsdbmenehd07/10/5960Htbxztw21/10/2024LPRD (laryngopharyngeal reflux disease)08/15/2023haryngoesophageal fdghvatce60/17/2024Mild persistent asthma without kzjblvymtlgt09/11/2024epressive muzlwxjz93/11/2024Lumbar ezdgyynaotu53/11/2024erebral cpeztuvchssnakj48/11/2024enign essential oqhtrddliinw95/29/2023hronic cough07/26/2022oronary artery fkuyhtn6307/26/2022 Gastroesophageal reflux disease with esophagitis without bhuuftimme87/29/2023 Hypertensive pulmonary arterial cgqbucz2207/26/2022Long term (current) use of inhaled gbpjmweu84/29/2023Multiple pulmonary bavjyyu1007/26/2022Obstructive sleep apnea empdqvyp17/29/2023Overactive xwqzsok2207/26/2022aroxysmal atrial /29/2023 Resolved Problems ProblemNoted DateDiagnosed DateResolved DateObesity, tzyhemvdbrd77/08/2023 08/09/2023bnormal CXRHistory of COVID-19007/26/2022 08/09/2023Shortness of yyjgtz71bnormal stress test05/11/2022 08/09/2023 Overview (08/09/2023): Added automatically from request for surgery [id number] Family History Medical HistoryRelationNameCommentsKidney failureFatherAlzheimer's diseaseMother natural deathMotherHyperlipidemiaSiblingMyasthenia gravisSiblingDiabetesSister 1 HypertensionSister 1Barrett's esophagusSister 2RelationNameStatusCommentsFather DeceasedMotherDeceasedSiblingSister 1AliveSister 2Alive Social History Tobacco UseTypesPacks/DayYears UsedDateSmoking Tobacco: NeverSmokeless Tobacco: Never Tobacco Cessation:Counseling Given: Not Answered Alcohol UseStandard Drinks/WeekCommentsYes0 (1 standard drink = 0.6 oz pure alcohol)caffeine: 1-2 cups per dayAUDIT-CAnswerDate RecordedQ1: How often do you have a drink containing alcohol?Monthly or less10/08/2023Q2: How many drinks containing alcohol do you have on a typical day when you are drinking?1 or 2 10/08/2023Q3: How often do you have six or more drinks on one occasion?Never 10/08/2023CommentsUnknownSex and Gender InformationValueDate RecordedSex Assigned at BirthNot on fileLegal CvzRomvmv06/01/2023 8:31 PM EDTGender Identity Not on fileSexual OrientationNot on file Last Filed Vital Signs Vital SignReadingTime TakenCommentsBlood Qblmtwpb26/5204/14/2024 2:22 PM EST Clvcq444804/14/2024 2:22 PM ESTTemperature--Respiratory Rate--Oxygen Xqtszvmyya91% 04/14/2024 2:22 PM ESTInhaled Oxygen Concentration--Mwhbto88.2 kg (157 lb) 04/14/2024 2:22 PM ZOLLevxpl160.9 cm (4' 11 )04/14/2024 2:22 PM ESTBody Mass Index31.7104/14/2024 2:22 PM EST Plan of Treatment Not on file Insurance Care Teams Team MemberRelationshipSpecialtyStart DateEnd Date Ovi Crooks DO PCP - GeneralInternal Medicine07/10/23 Madhavi Arriola DO [address] [place] [address] Referring VrevjnnbmVqeqdmdvw89/16/24
--- OUTSIDE RECORDS SUMMARY | 2025-04-02 08:17 | XMS_ITS | Clinical Summary ---
Author Organization [facility] Address [address] [place] [address] Care Team Providers Care Technical Business Analyst Name Role Phone Ovi Crooks DO Primary Care Provider [phone] Allergies Active AllergyReactionsCriticalityNoted DateCommentsMidazolamNausea And Vomiting Cnzimg6205/10/2022 Medications MedicationSigDispense QuantityRefillsLast FilledStart DateEnd DateStatus gabapentin (Neurontin) 100 mg capsule Take 100 mg by mouth 1 (one) time each day.03/14/2022ctive losartan (Cozaar) 50 mg tablet Take 50 mg by mouth in the morning.03/21/2022ctive oxybutynin XL (Ditropan-XL) 15 mg 24 hr tablet Take 15 mg by mouth in the morning.03/16/2022ctive escitalopram (Lexapro) 10 mg tablet Take 10 mg by mouth in the morning.05/05/2022ctive hydroCHLOROthiazide (HYDRODiuril) 25 mg tablet Take 25 mg by mouth in the morning.04/12/2022ctive aspirin 81 mg EC tablet Indications: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 90 tablet ctive ciclesonide (Alvesco) 80 mcg/actuation inhaler 1 puff every 12 (twelve) hours.Active omeprazole (PriLOSEC) [address] capsule 1 (one) time each day at the same time.Active multivitamin tablet Take 1 tablet by mouth in the morning.Active calcium carbonate (CALCIUM 500 ORAL) Take by mouth.Active acetaminophen (Tylenol) 500 mg tablet Take by mouth every 6 (six) hours if needed for mild pain (1-3 pain score). Active budesonide-formoteroL (Symbicort) 160-4.5 mcg/actuation inhaler every 12 (twelve) hours.07/26/2022ctive baclofen (Lioresal) 5 mg tablet Take 2.5-5 mg by mouth if needed.10/21/2022ctive atorvastatin (Lipitor) 40 mg tablet Indications:Coronary artery disease of [place] heart with stable angina pectoris, unspecified vessel or lesion typeTAKE 1 TABLET AT BEDTIME 90 tablet ctive metoprolol succinate XL (Toprol-XL) 25 mg 24 hr tablet Indications:Coronary artery disease of [place] heart with stable angina pectoris, unspecified vessel or lesion typeTAKE 1 TABLET ONE TIME DAILY DIRECTED 90 tablet ctive atorvastatin (Lipitor) 40 mg tablet Indications: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 90 tablet ctive isosorbide mononitrate ER (Imdur) 30 mg 24 hr tablet Indications:Coronary artery disease of [place] heart with stable angina pectoris, unspecified vessel or lesion typeTake 1 tablet (30 mg) by mouth in the morning. Do not crush or chew. 90 tablet ctive Active Problems ProblemNoted DateDiagnosed DateObesity, afmsujtuelo72/08/202309/bnormal CXR07/26/2022enign essential /29/2023hronic cough07/26/2022 Coronary artery tinifcb6007/26/2022astroesophageal reflux disease with esophagitis without vsgvhssapo48/29/2023History of COVID-19007/26/2022 Hypertensive pulmonary arterial ymfkxbo5407/26/2022Long term (current) use of inhaled /29/2023Multiple pulmonary wrkbbfz0207/26/2022Obstructive sleep apnea /29/2023Overactive nzypehn6807/26/2022aroxysmal atrial xwdbecqyemrv15/29/2023Secondary pulmonary rhuubkrfaffe77/29/2023Shortness of nxtigi2707/26/2022bnormal stress test05/11/2022 Overview (05/11/2022): Added automatically from request for surgery [id number] Immunizations ImmunizationAdministration DatesNext DueInfluenza, Seasonal, Quadrivalent, Tllqdiymfy63/21/2022Influenza, injectable, jwsaczdxwhpe39/27/2017Influenza, trivalent, kjogsqdomc57/11/2020,03/27/2018Pneumococcal Conjugate PCV 13 11/17/2016Pneumococcal Polysaccharide GYI890405/16/2016Unspecified Sars-Cov-2 Hygsdxsgnmr30/06/2021,06/17/2020,05/27/2020 Family History Medical HistoryRelationNameCommentsNo Known ProblemsFatherNo Known Problems MotherRelationNameStatusCommentsFatherMother Social History Tobacco UseTypesPacks/DayYears UsedDateSmoking Tobacco: NeverSmokeless Tobacco: Never Tobacco Cessation:Counseling Given: Not Answered Alcohol UseStandard Drinks/WeekCommentsNot Currently0 (1 standard drink = 0.6 oz pure alcohol)[place] Safety & EnvironmentAnswerDate RecordedFear of Current or Ex-PartnerNot on file06/21/2023Emotionally AbusedNot on file06/21/2023hysically AbusedNot on file06/21/2023Sexually AbusedNot on file06/21/2023hysically or Sexually AbusedNot on file06/21/2023CommentsNoSex and Gender Information ValueDate RecordedSex Assigned at BirthNot on fileLegal FnvZnffkh38/29/2022 10:33 PM EDTGender IdentityNot on fileSexual OrientationNot on file Last Filed Vital Signs Vital SignReadingTime TakenCommentsBlood Dadghwwq188/6609 11:11 AM EDT Xdsmk1460/08/2023 11:11 AM EDTTemperature--Respiratory Rmhn606305/17/2022 11:00 AM ESTOxygen Jcrgzwbxnk65%01/05/2023 11:11 AM EDTInhaled Oxygen Concentration-- Ekddlg84.8 kg (156 lb)01/05/2023 11:11 AM WXNFihgja035.1 cm (4' 11.5 )01/05/2023 11:11 AM EDTBody Mass Index30.98001/05/2023 11:11 AM EDT Plan of Treatment Health MaintenanceDue DateLast DoneCommentsMedicare Annual Wellness (AWV) 3Depression Lqkilzlwh88/12/1955Adult Gbnccnj7811/08/1964Zoster Vaccines (1 of 2)1992Fall Risk Ubcarllzf00/12/2008COVID-19 Vaccine ( season)512/09/2020, 04/04/2021, 06/17/2020, Additional history exists Influenza Vaccine (#1), 03/10/2020, 03/27/2018, Additional history existsPneumococcal Vaccine: 50+ YxpzoGrfmarmew14/17/2017, 11/17/2016HIB VaccinesAged OutNo longer eligible based on patient's age to complete this topic HPV VaccinesAged OutNo longer eligible based on patient's age to complete this topicIPV VaccinesAged OutNo longer eligible based on patient's age to complete this topicMeningococcal B VaccineAged OutNo longer eligible based on patient's age to complete this topicMeningococcal VaccineAged OutNo longer eligible based on patient's age to complete this topicRotavirus VaccinesAged OutNo longer eligible based on patient's age to complete this topic Insurance MemberSubscriberPlan / Payer (Effective 2016-Present)Name:Rupali Richardson Relation to Subscriber:SelfName:Rupali Richardson Payer ID:[id number] ([facility]) Group ID:[id number] Type:Not on file Address: [facility] [address] [address] Care Teams Team MemberRelationshipSpecialtyStart DateEnd Date Ovi Crooks DO [address] [place] [address] PCP - General05/09/22
--- OUTSIDE RECORDS SUMMARY | 2025-04-02 08:18 | XMS_ITS | Patient Health Record ---
Author Organization [facility] [place] Address [address] [place] [address] Care Team Providers Care Briquette Operator Name Role Phone Ovi Crooks DO Primary Care Provider Rogelio Pearl Unavailable [phone] Allergies Allergen (clinical drug ingredient) Drug/Non Drug Allergy documented on EMR Reaction Allergy Type Onset Date Status Versed (uncoded)nausea and vomitingAllergyActive Reason For Referral No Information Medications Medication SIG (Take, Route, Frequency, Duration) Notes Start Date End Date Status Symbicort 160-4.5 MCG/ACT 2 puffs Inhalation BID; Duration: 90 days Rinse after use ActiveEscitalopram Oxalate 10 MG1 tablet Orally Once a dayActiveGabapentin 100 MG1 capsule Orally Once a dayActiveoxyBUTYnin Chloride ER 15 MG1 tablet Orally Once a dayActiveAtorvastatin Calcium 40 MG1 tablet Orally Once a dayActive Isosorbide Mononitrate ER 30 MG1 tablet in the morning Orally Once a dayActive Losartan Potassium 50 MG1 tablet Orally Once a dayActiveMetoprolol Succinate 25 MG1 capsule Orally Once a dayActiveOmeprazole 20 MG1 capsule 30 minutes before morning meal Orally Once a dayActivehydroCHLOROthiazide 25 MG1 tablet in the morning Orally Once a dayActive Immunizations Vaccine Route Administration Date Status Comme nts Flu, Unspecified Unknown 02/17/2022 Administered Pneumococcal (Pneumovax 23)Viknmlp4303/16/20174663IsoazmnxlvjxLGJQ-HYH-9 (COVID 19 Pfizer 30mcg/0.3mL)Uczxjog06/06/2021Administered Social History Tobacco Use: Social History Observation Description Date Details (start date - stop date) Never Smoker NA - NA Tobacco Use/Smoking Question Answer Notes Patient is a nonsmoker Tobacco Control (Standard) Question Answer Notes Tobacco use: Nonsmoker Problems Problem Type SNOMED Code ICD Code Onset Dates Problem Status W/U Status Risk Notes Problem Obstructive sleep ap ravi syndrome (disorder) (73561357) Obstructive sleep apnea (adult) (pediatric) (G47.33) ActiveconfirmedProblemObesity (361468858)Obesity, unspecified (E66.9)Active confirmedProblemUncomplicated mild persistent asthma (744210328)Mild persistent asthma, uncomplicated (J45.30)ActiveconfirmedProblemOveractive bladder (820672901)Overactive bladder (N32.81)ActiveconfirmedProblemLong-term current use of inhaled steroid (937914922)terminal gauger (current) use of 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 (Z79.51)ActiveconfirmedProblemCoronary artery disease (08556084)Coronary artery disease (I25.10)ActiveconfirmedProblemParoxysmal atrial fibrillation (810288826) Paroxysmal atrial fibrillation (I48.0)ActiveconfirmedProblemBenign essential hypertension (1127524)Benign essential hypertension (I10)ActiveconfirmedProblem Multiple pulmonary nodules (751006958)Multiple pulmonary nodules (R91.8)Active confirmedProblemHypercholesterolemia (82098482)Hypercholesterolemia (E78.00) ActiveconfirmedProblemSecondary pulmonary hypertension (65486689)Other secondary pulmonary hypertension (I27.29)ActiveconfirmedProblemBody mass index 30.00 to 34.99 (267835816665895)Body mass index [BMI] 31.0-31.9, adult (Z68.31)Active confirmedProblemGastroesophageal reflux disease with esophagitis (disorder) (330895419)Gastroesophageal reflux disease with esophagitis without hemorrhage (K21.00)ActiveconfirmedProblemHistory of COVID-19 (863218241997589980)History of COVID-19 (Z86.16)Activeconfirmed Encounters Encounter Location Date Provider Diagnosis [facility] [address] [place] [address] 11/17/2024 Rogelio Smith Plan Of Treatment No Information Insurance Providers Payer Name Payer Address Payer Phone Subscriber Number Group Number Insured Name Patient Relationship to Insured Coverage Start Date Coverage End Date [place] [address] [place] [address] [id number] SureshRosalind merino - patient is the [id number] MEDICARE SUPPLEMENTPO [address] [place] [id number] SureshAfsaneh merinoPaddy - patient is the [id number] 2016 Medical (General) History Medical History History ICD [...] Surgical History Surgery Date(Month/Year) Sinus polypectomy cardiac sopszqrexyccmuc98/18/2023Nerve Ablation-Back06/20/2022ack Injection 07/25/2022LaminectomyCholecystectomyappendectomyhysterectomy, abdominal
--- OUTSIDE RECORDS SUMMARY | 2025-04-02 08:21 | XMS_ITS | CCD ---
Author Organization [facility] Care Team Providers Care Cellular Biologist Name Role Phone Zahler, Quinn Unavailable Unavailable Zahler, Quinn Unavailable Unavailable Erliner, Quinn Unavailable Unavailable OVI [phone] UNKNOWN Unavailable Unavailable Zahler, Quinn Unavailable Unavailable Zahler, Quinn Unavailable Unavailable Kala, Quinn Unavailable Unavailable OVI [phone] UNKNOWN Unavailable Unavailable MD Brina Morrissey Attending Provider Brina Morrissey Unavailable Ovi Mauricio Unavailable DR OVI MAURICIO Primary Care Unavailable CRISTOBAL . MARY Admitting [...] DR DIOR Primary Care Unavailable LAKSHMIPATHY ., NARENDDYLAN Consulting Elodia vailable LAKSHMIPATHY ., NARMARIA C Admitting Elodia vailable [...] Admitting Unavailable CRISTOBAL ., MARY Admitting Unavailable HANG, DR DIOR Primary Care Unavailable CRISTOBAL ., MARY Attending Unavailable HANG, DR DIOR Consulting Unavailable ZIEBER, DR WILLIAM Alas Consulting Unavailable CRISTOBAL ., MARY Consulting Unavailable ALGHOTHANI, MOHAMAD Attending Unavailable ALGHOTHANI, MOHAMAD Attending Unavailable MALA, BERNYD Attending Unavailable Ovi Mauricio MD Primary Care Provider ZeinabMadhavi powers DO Unavailable TORRES ROSA Attending Unavailable TORRES ROSA Attending Unavailable BRIGITTE YANG Attending Unavailable BRIGITTE YANG Attending Unavailable Hang KENNEDY, Ovi Primary Care Provider [phone] Brina Morrissey MD Attending Provider Hang KENNEDY, Ovi Attending Provider Brigitte Yang APRN Attending Provider Ovi Mauricio DO Primary Care Provider Hang KENNEDY, Ovi Attending Provider Malena WILLIS, Isaac Chatterjee Attending Unavailable Malena WILLIS, Isaac Chatterjee Attending Unavailable Hang KENNEDY, Ovi Primary Care Provider Hang KENNEDY, Ovi Attending Provider [phone] Brina Morrissey MD Attending Provider Ovi Mauricio DO E Primary Care Provider Hang KENNEDY, Ovi Primary Care Provider Hang KENNEDY, Ovi Attending Provider Ovi Mauricio DO Referring Provider Alina Ramirez APRN Attending Provider ZeinabDane powers DOle Unavailable Allergies Allergy ClassificationReported Allergen(s)Allergy TypeDate of OnsetReaction(s) Facility (1 source)MidazolamDrug Pzoufni23-47-3602[facility] Rep[facility] (8 sources)Midazolam; Translations: [MIDAZOLAM]Drug Zdhgluz17-96-5014Kzmwsw [facility] VomitingUniversity [facility] Medications Current Medications MedicationDrug Class(es)DatesSig (Normalized)Sig (Original)acetaminophen 325 mg / HYDROcodone bitartrate 5 mg oral tablet (10 sources)Opioid AgonistStart: 06-20-0335twcd 1 tablet by mouth twice daily as needed for painHYDROcodone-Acetaminophen 5-325 MG 1 tablet Orally bid as needed for pain for 7 days Dec, Activeatorvastatin 40 mg oral tablet (20 sources)HMG-CoA Reductase InhibitorStart: 37-25-7857wumq 1 tablet by mouth at bedtimeatorvastatin (Lipitor) 40 MG tablet Take 40 mg by mouth at bedtime 05/08/2023 Activetake 1 tablet by mouth every twenty-four hoursAtorvastatin Calcium 40 MG 1 tablet Orally Once a day Activeciprofloxacin 3 mg/ml ophthalmic solution (5 sources)Quinolone AntimicrobialStart: 73-07-0284lzuo 2 drop(s) into the eye(s) every four hoursCiprofloxacin HCl 0.3 % 2 drops Ophthalmic every 4 hours while awake for 7 days Jun, ActiveCpap (Continuous Positive Airway Pressure) unit (1 source)Start: 88-92-6641Ezjm (Continuous Positive Airway Pressure) unit Active 0 .ROUTE February 18, 2025 12:00am As directed at night time [place] [facility] [place] (18 sources)CPAP Machine Activegabapentin 100 mg oral capsule (20 sources)Anti-epileptic AgentStart: 40-60-1072yzgw 1 capsule by mouth once daily at bedtimeGabapentin 100 mg capsule Active 100 MG PO Daily at bedtime 90 90 0 December 11, 2024 2:28pm Complies with drug therapyStart: 05-11-2024 End: 35-08-1009Nwxtjldkqr 100 mg capsule Discontinued 0 .ROUTE .COMPLEX 90 3 May 11, 2024 8:27pm December 08, 2024 10:37am TAKE 1 CAPSULE AT BEDTIME Start: 09-12-1720Cdzklgniuw 100 mg capsule Active 0 .ROUTE .COMPLEX 90 May 11, 2024 8:27pm TAKE 1 CAPSULE AT BEDTIMEStart: 07-03-2023 End: 08-80-7207mnjk 1 capsule by mouth at bedtimeGabapentin 100 mg capsule Discontinued 100 MG PO July 03, 2023 1:00am May 11, 2024 8:27pm Fr eeTextSig: TAKE 1 CAPSULE AT BEDTIME; Note: Source Status: Start; Refills: 3; Qty: 90 Capsule; Provider: Hang Dior ( )hydroCHLOROthiazide 25 mg oral tablet (20 sources)Thiazide DiureticStart: 63-55-6121fnrj 1 tablet by mouth once daily Hydrochlorothiazide 25 mg tablet Active 25 MG PO Daily February 18, 2025 12:00am Complies with drug therapyStart: 43-17-8288Khwfsbikmylimsrizdh 25 mg tablet Active 0 .ROUTE .COMPLEX May 11, 2024 8:27pm TAKE 1 TABLET EVERY DAYStart: 08-28-2023 End: 31-95-0664Lbskcubrjbrybkxlbwq 25 mg tablet Discontinued 0 .ROUTE .COMPLEX 90 May 11, 2024 8:27pm February 18, 2025 10:41am TAKE 1 TABLET EVERY DAYStart: 08-28-2023 End: 07-25-0684Irbwiysmwenvwdjsary 25 mg tablet Discontinued 0 .ROUTE .COMPLEX August 28, 2023 4:54pm May 11, 2024 8:27pm TAKE 1 TABLET EVERY DAY Start: 63-78-1347Lzjmftcchowffzlrfsu 25 mg tablet Active 0 .ROUTE .COMPLEX August 28, 2023 3:54pm TAKE 1 TABLET EVERY DAYStart: 08-28-2023 Hydrochlorothiazide Active 0 .ROUTE .COMPLEX August 28, 2023 4:54pm TAKE 1 TABLET EVERY DAYStart: 07-03-2023 End: 92-16-2305qxuw 1 tablet by mouth once dailyHydrochlorothiazide 25 mg tablet Discontinued 25 MG PO Daily July 03, 2023 1:00am August 28, 2023 4:54pm FreeTextSig: TAKE 1 TABLET EVERY DAY; Note: Source Status: Taking; Provider: Hang Dior( )Hydrochlorothiazide-25 mg 25 mg (2 sources)take 1 tablet by mouth once dailyHydrochlorothiazide-25 mg 25 mg 1 tablet Orally Once a day Nzqoma01 hr isosorbide mononitrate 30 mg extended release oral tablet (20 sources)Nitrate VasodilatorStart: 99-80-1530yjjh 1 tablet by mouth once daily, then take 1 tablet by mouth every twenty-four hoursisosorbide mononitrate ER (Imdur) 30 MG 24 hr tablet Take 30 mg by mouth Daily 05/08/2023 Activetake 1 tablet by mouth every twenty-four hoursIsosorbide Mononitrate ER 30 MG 1 tablet in the morning Orally Once a day Activelosartan potassium 50 mg oral tablet (20 sources)Angiotensin 2 Receptor BlockerStart: 75-37-5983Hccxemjl 50 mg tablet Active 0 .ROUTE .COMPLEX 90 September 04, 2024 1:11pm TAKE 1 TABLET EVERY DAY Com plies with drug therapyStart: 07-03-2023 End: 79-08-7031pdtw 1 tablet by mouth once dailyLosartan 50 mg tablet Discontinued 50 MG PO Daily July 03, 2023 1:00am September 04, 2024 1:11pm FreeTe xtSig: TAKE 1 TABLET EVERY DAY; Note: Source Status: Taking; Provider: Hang Dior ( )24 hr metoprolol succinate 25 mg extended release oral tablet (20 sources)beta-Adrenergic BlockerStart: 06-19-2023 End: 02-53-9030kbda 1 tablet by mouth once dailymetoprolol succinate XL (Toprol- XL) 25 MG 24 hr tablet Take 25 mg by mouth Daily 06/19/2023 Activetake 1 tablet by mouth every twenty-four hoursMetoprolol Succinate ER 25 MG 1 tablet Orally Once a day Activeomeprazole 20 mg delayed release oral capsule (20 sources)Proton Pump InhibitorStart: 32-02-4614qsna 1 capsule by mouth once dailyOmeprazole 20 mg capsule,delayed release(DR/EC) Active 20 MG PO Daily February 18, 2025 12:00am Complies with drug therapyStart: 03-22-2024 End: 69-39-5817Hqtnsbysqq 40 mg capsule,delayed release(DR/EC) Discontinued 0 .ROUTE .COMPLEX 90 March 22, 2024 12:46pm January 10, 2025 8:26am TAKE 1 CAPSULE ONE TIME DAILY 30 MINUTES BEFORE MORNING MEALStart: 07-03-2023 End: 91-79-5798fvnj 1 capsule by mouth before mealtimeomeprazole (PriLOSEC) [address] capsule Indications: LPRD (laryngopharyngeal reflux disease) Take 1 c apsule (40 mg) by mouth in the morning. Take before meals. Do not crush or chew.. 90 capsule 08/15/2023 ActiveStart: 07-93-7560qepj 1 capsule by mouth once dailyOmeprazole 40 MG 1 capsule 30 minutes before morning meal Orally Once a day Jun, Htjmvr81 hr oxybutynin chloride 15 mg extended release oral tablet (20 sources)Cholinergic Muscarinic AntagonistStart: 12-10-2023 End: 39-35-7122Aehnrniths Chloride 15 mg tablet extended release 24hr Active 0 .ROUTE .COMPLEX 90 September 2855:30pm TAKE 1 TABLET EVERY DAY Complies with drug therapyStart: 69-61-2380gwbrbzlruv XL (Ditropan-XL) 15 MG 24 hr tablet 09/28/2023 ActiveStart: 07-03-2023 End: 18-78-8576briy 1 tablet by mouth once dailyOxybutynin Chloride 15 mg tablet extended release 24hr Discontinued 1 TAB PO Daily July 03, 2023 1:00am December 10, 2023 6:54am FreeTextSig: TAKE 1 TABLET EVERY DAY; Note: Source Status: Taking; Refills: 3; Qty: 90 Tablet; Provider: Hang Dior ( ) oxyBUTYnin Chloride ER 15 MG TAKE 1 TABLET EVERY DAY for 90 Active Completed/Discontinued Medications MedicationDrug Class(es)DatesSig (Normalized)Sig (Original)aspirin 81 mg delayed release oral tablet (20 sources)Platelet Aggregation Inhibitor, Nonsteroidal Anti-inflammatory Drug Start: 07-19-2023 End: 73-03-2007Adneqrs (Karon Low Dose Aspirin) 81 mg tablet,delayed release (DR/EC) Discontinued 81 MG PO Daily July 19, 2023 12:00am July 20, 2023 9:03amStart: 07-03-2023 End: 33-87-8172arjn 1 tablet by mouth once dailyAspirin 81 mg tablet,delayed release (DR/EC) Discontinued 81 MG PO Daily July 03, 2023 1:00am July 04, 2023 10:06am FreeTextSi tablet Orally Once a day; Note: Source Status: Taking; Provider:Hang Dior ( )take 1 tablet by mouth every twenty-four hoursAspirin Adult Low Dose 81 MG 1 tablet Orally Once a day Active baclofen 10 mg oral tablet (9 sources)gamma-Aminobutyric Acid-ergic AgonistStart: 01-21-2025 End: 49-13-9882Rslzwcaq 10 mg tablet Discontinued MG PO January 21, 2025 12:00am February 18, 2025 10:33amtake 1 tablet by mouth every twelve hours Baclofen 10 MG 1 tablet as needed Orally Twice a day Not-Mypqvt027 actuat budesonide 0.16 mg/actuat / formoterol fumarate 0.0045 mg/actuat metered dose inhaler (20 sources)Corticosteroid, beta2-Adrenergic AgonistStart: 07-19-2023 End: 51-36-4200jqsw 1 puff(s) by inhalation twice dailyBudesonide-Formoterol (Symbicort) 160-4.5 mcg/actuation HFA aerosol inhaler Discontinued 2 PUFF INHA LATION Twice daily July 19, 2023 12:00am February 18, 2025 10:34amStart: 87-18-0386xxkk 2 puff(s) by inhalation twice dailySymbicort 160-4.5 MCG/ACT 2 puffs Inhalation Twice a day Jul, ActiveStart: 21-28-3167fzbd 2 puff(s) by inhalation twice dailySymbicort 160-4.5 MCG/ACT 2 puffs Inhalation Twice a day Jul, Activetake 2 puff(s) by inhalation in the morningbudesonide- formoterol (Symbicort) 160-4.5 MCG/ACT inhaler Inhale 2 puffs in the morning and 2 puffsbefore bedtime. Rinse mouth with water after use to reduce aftertaste and incidence of candidiasis.Do not swallow.. Activecholecalciferol 1.25 mg oral tablet (3 sources)Vitamin DStart: 12-08-2024 End: 27-53-5833jnsi 1 tablet by mouth onceCholecalciferol (Vitamin D3) 1,250 mcg (50,000 unit) tablet Discontinued 1250 MCG PO Once December 08, 2024 12:00am February 18, 2025 10:34amclonazePAM 0.5 mg oral tablet (3 sources)BenzodiazepineStart: 12-08-2024 End: 69-95-6109plih 1 tablet by mouth once daily 30 minutes before bedtime Clonazepam 0.5 mg tablet Discontinued 0.5 MG PO Daily at bedtime 30 30 2 December 08, 2024 12:00am December 11, 2024 2:28pm Primary insomnia Primary insomnia administer 30 minutes before bedtimeclopidogrel 75 mg oral tablet (20 sources)P2Y12 Platelet InhibitorStart: 04-17-2023 End: 99-03-7684damb 1 tablet by mouth once dailyClopidogrel 75 mg tablet Discontinued 75 MG PO Daily 90 90 0 February 16, 2025 8:25am February 18, 2025 10:34amescitalopram 10 mg oral tablet (20 sources)Serotonin Reuptake InhibitorStart: 07-16-2023 End: 55-25-6536Rmhjehcqwdmn Oxalate 10 mg tablet Discontinued 0 .ROUTE .COMPLEX 90 3 December 10, 2023 6:54am 2024 5:30pm TAKE 1 TABLET EVERY DAYStart: 07-03-2023 End: 58-44-4071yanw 1 tablet by mouth once dailyEscitalopram Oxalate 10 mg tablet Discontinued 10 MG PO Daily July 03, 2023 1:00am July 16, 2023 5:05pm FreeTextSig: TAKE 1 TABLET EVERY DAY; Note: Source Status: Taking; Provider: Hang Dior ( )famotidine 20 mg oral tablet (15 sources)Histamine-2 Receptor AntagonistStart: 11-12-2023 End: 93-11-0397esph 1 tablet by mouth once daily at bedtimeFamotidine 20 mg tablet Discontinued 20 MG PO Daily at bedtime February 25, 2024 12:00am August 25, 2024 10:00amfexofenadine hydrochloride 180 mg oral tablet (3 sources)Histamine-1 Receptor AntagonistStart: 12-08-2024 End: 41-79-6753ljvz 1 tablet by mouth once dailyFexofenadine 180 mg tablet Discontinued 180 MG PO Daily December 08, 2024 12:00am February 18, 2025 10:34amfluticasone propionate 0.05 mg/actuat metered dose nasal spray (7 sources)Corticosteroidtake 1 spray(s) nasal route once dailyFlonase 50 MCG/ACT 1 spray in each nostril Nasally Once a day Not-Takingloratadine 10 mg oral tablet (7 sources)take 1 tablet by mouth once dailyClaritin 10 MG 1 tablet Orally Once a day Not-Takingpantoprazole 40 mg delayed release oral tablet (9 sources)Proton Pump InhibitorStart: 01-10-2025 End: 59-21-2721Atfxrryuison 40 mg tablet,delayed release (DR/EC) Discontinued 40 MG PO Daily 90 90 3 January 10, 2025 12:00am February 18, 2025 10:34am take on an empty stomach, 30 minutes prior to bkfstStart: 36-81-6153duyp 1 tablet by mouth every twenty-four hoursProtonix 40 mg 1 tablet Orally daily Sep, Not-TakingraNITIdine 300 mg oral tablet (7 sources)Histamine-2 Receptor AntagonistStart: 34-27-1296clca 1 tablet by mouth once dailyZantac 300 MG 1 tablet Orally daily Oct, Not-Taking triamcinolone acetonide 40 mg/ml injectable suspension (20 sources)CorticosteroidStart: 92-27-0209Dpoluge-40 Dec, 20 mgTylenol Arthritis Pain 650 MG (7 sources)Tylenol Arthritis Pain 650 MG as directed Orally Not-TakingTylenol Arthritis Pain 650 MG as directed Orally Active Problems Active Problems Problem ClassificationProblemDateDocumented DateEpisodic/ChronicAcute and unspecified renal failure (1 source)Acute kidney failure, unspecified; Translations: [Acute kidney failure, unspecified]30-57-5671XtwyjijySxyeg bronchitis (1 source)Acute bronchitis; Translations: [Acute bronchitis due to other specified organisms]EpisodicAcute cerebrovascular disease (20 sources)Cerebral infarction; Translations: [Cerebral infarction, unspecified]Onset: 47-86-7303FrgoseuXncrus (20 sources)Uncomplicated mild persistent asthma; Translations: [Mild persistent asthma, uncomplicated]Onset: 17-43-6537PhfkoidWlhcayg dysrhythmias (9 sources)Paroxysmal atrial fibrillation; Translations: [Paroxysmal atrial fibrillation]Onset: 258917-04-2069LkdpitjErjsbjw kidney disease (13 sources)Chronic kidney disease; Translations: [Chronic kidney disease, unspecified]29-84-1606YmhypflGpreppyz atherosclerosis and other heart disease (20 sources)Coronary arteriosclerosis; Translations: [Atherosclerotic heart disease of squaxin coronary artery without angina pectoris]Onset: 06-07-2022 ChronicComment on above:LHC: LAD 40-50%, LCx 20%, RCA 30% - eficiency and other anemia (8 sources)Anemia; Translations: [Anemia, unspecified]37-74-5270BsffekwxMczimhin mellitus without complication (2 sources)Hyperglycemia; Translations: [Hyperglycemia, unspecified]09-03-2024 EpisodicDisorders of lipid metabolism (20 sources)Hypercholesterolemia; Translations: [Pure hypercholesterolemia, unspecified]Onset: 86-37-1301FtcomdmGsedvvngkk disorders (20 sources)Gastroesophageal reflux disease; Translations: [GERD [Gastroesophageal reflux disease]]Onset: 860375-65-3625YyaxqhtJtdxzfrsgf disorders (2 sources)Esophageal disorders; Translations: [Gastro-esophageal reflux disease with esophagitis, without bleeding]Essential hypertension (20 sources)Essential hypertension; Translations: [Essential (primary) hypertension]Onset: 52-84-1225GrndgmqUftdbqxguicxl symptoms and ill-defined conditions (1 source)Urinary incontinence; Translations: [Other urinary incontinence] ChronicGenitourinary symptoms and ill-defined conditions (1 source)Dysuria; Translations: [Dysuria]EpisodicHeart valve disorders (1 source)Rheumatic disorders of both mitral and tricuspid valves; Translations: [RHEUMATIC D/O MITRAL TRICUSPID VALV]Onset: 25-14-7056VxntmqtTdbleqalnrktu and screening for infectious disease (1 source)Vaccination given; Translations: [Encounter for immunization]Episodic Inflammation; infection of eye (except that caused by tuberculosis or sexually transmitteddisease) (1 source)Unspecified acute conjunctivitis, bilateralEpisodicMalaise and fatigue (2 sources)Chronic fatigue, unspecified; Translations: [Chronic fatigue syndrome]Onset: 27-21-0614YvajaslSewjgaaguf disorders (1 source)Primary ovarian failure; Translations: [Other primary ovarian failure] Onset: 82-49-9052BkdlwxvYhjdtexpjscly mental health disorders (16 sources)Primary insomnia; Translations: [Primary insomnia]Onset: 10-08-2023 76-39-4010HylwpvwOuos disorders (20 sources)Recurrent major depression in full remission; Translations: [Major depressive disorder, recurrent, in full remission]Onset: 10-02-8159Pexnmfr Mycoses (1 source)Candidiasis of skin and nails; Translations: [Candidiasis of skin and nail]EpisodicNutritional deficiencies (1 source)Vitamin D deficiency; Translations: [Vitamin D deficiency, unspecified]Onset: 60-92-4005GkxcsnaWkjrjokdhrecvr (20 sources)Arthritis of bilateral first carpometacarpal joints; Translations: [Bilateral primary osteoarthritis of first carpometacarpal joints]Onset: 12-14-2015 Resolved: 53-95-8122WrsfgpmPgkll aftercare (1 source)Long-term current use of drug therapy; Translations: [Other detention (current) drug therapy]EpisodicOther and ill-defined cerebrovascular disease (20 sources)Cerebral atherosclerosis; Translations: [Cerebral atherosclerosis] Onset: 214619-12-7155FihmeaaMospi and ill-defined cerebrovascular disease (7 sources)Cerebral atherosclerosis; Translations: [Cerebral atherosclerosis] ChronicOther circulatory disease (1 source)H/O: cardiovascular disease; Translations: [Personal history of other diseases of the circulatory system]EpisodicOther circulatory disease (1 source)Other specified symptoms and signs involving the circulatory and respiratory systemsEpisodicOther congenital anomalies (1 source)Congenital spondylolysis of lumbosacral region; Translations: [Congenital spondylolysis, lumbosacral region]Onset: 10-01-9256KqdxsnpNrxyx connective tissue disease (4 sources)Pain in left hand; Translations: [Pain in limb]Onset: 12-21-2021 Resolved: 79-47-9062TuzbrpmqHcxkv connective tissue disease (4 sources)Pain in right hand; Translations: [Pain in limb]Onset: 12-21-2021 Resolved: 39-21-1557VfbcvuzqRktlx connective tissue disease (2 sources)Other symptoms and signs involving the musculoskeletal systemEpisodic Other connective tissue disease (2 sources)Cramp and spasmEpisodicOther connective tissue disease (6 sources)Hand pain; Translations: [Pain in left hand]82-77-7119RntomjawZwnib diseases of bladder and urethra (20 sources)Overactive bladder; Translations: [Overactive bladder]Onset: 182840-80-1412LkotagkSzdhc diseases of bladder and urethra (1 source)Overactive bladderChronicOther diseases of kidney and ureters (7 sources)Renal mass; Translations: [Other specified disorders of kidney and ureter]87-52-9934YuixyicBnltejf on above:CT: hypodense nodule left nodule - 02/2024,MRI spine: 1.4cm left renal cyst - 08/2024,MRI: 1.3cm left renal hemorrhagic cyst - 09/2024- recheck in yearCT: hypodense nodule left kidney - 02/2024,MRI spine: 1.4cm left renal cyst - 08/2024,MRI: 1.3cm left renal hemorrhagic cyst - 09/2024MRI spine: 1.4cm left renal cyst - 10/2024 (repeat in year - 09/2025)Other ear and sense organ disorders (1 source)Impacted cerumen; Translations: [Impacted cerumen, right ear]Episodic Other injuries and conditions due to external causes (1 source)History of fall; Translations: [History of falling]EpisodicOther liver diseases (13 sources)Elevated liver enzymes level; Translations: [High liver transaminase level]76-27-8926MedmzwtoHpkes lower respiratory disease (19 sources)Cough; Translations: [Cough]EpisodicOther lower respiratory disease (14 sources)Nodule of lung; Translations: [Solitary pulmonary nodule]Episodic Other lower respiratory disease (2 sources)Solitary pulmonary noduleEpisodicOther lower respiratory disease (17 sources)Other nonspecific abnormal finding of lung field; Translations: [Ground glass opacity present on imaging of lung]Onset: 74-83-7916MvcwnipzShfji lower respiratory disease (8 sources)Pleuritic pain; Translations: [Pleurodynia]96-34-4736WgksunjtZqhop lower respiratory disease (2 sources)Pleurodynia; Translations: [Painful respiration]30-55-7033Ezzzkwfm Other lower respiratory disease (2 sources)Posterior rhinorrhea; Translations: [Upper airway cough syndrome] 90-56-5612SbfkjkneUlruv lower respiratory disease (2 sources)Dyspnea on exertion; Translations: [Shortness of breath]02-18-2025 EpisodicOther nervous system disorders (20 sources)Carpal tunnel syndrome of right wrist; Translations: [Carpal tunnel syndrome, right upper limb]69-37-9388XhbwillYaclg nervous system disorders (20 sources)Carpal tunnel syndrome of left wrist; Translations: [Carpal tunnel syndrome, left upper limb]10-88-6618ZszhbadFqzpc nervous system disorders (9 sources)Carpal tunnel syndrome, right upper limb; Translations: [Carpal tunnel syndrome]Onset: 12-21-2021 Resolved: 67-38-6749SmmktveHlxtu nervous system disorders (9 sources)Carpal tunnel syndrome, left upper limb; Translations: [Carpal tunnel syndrome]Onset: 12-21-2021 Resolved: 47-87-2786AzwwmodYmibz nervous system disorders (1 source)Other chronic pain; Translations: [OTHER CHRONIC PAIN]Onset: 22-10-0369VkbhhjvXnyaf nervous system disorders (2 sources)Anesthesia of skinOnset: 12-21-2021 Resolved: 40-99-0885BerreewpRknzv nervous system disorders (1 source)Paresthesia; Translations: [Paresthesia of skin]EpisodicOther nutritional; endocrine; and metabolic disorders (3 sources)Hypercalcemia; Translations: [Hypercalcemia]Onset: 07-21-2017 45-13-6038AmbdvcrMzvdi nutritional; endocrine; and metabolic disorders (1 source)Simple obesity ; Translations: [Other obesity due to excess calories] Onset: 17-13-6539GrsszrlCknmx nutritional; endocrine; and metabolic disorders (2 sources)Body mass index 30+ - obesity; Translations: [Body mass index 31.0- 31.9, adult]Onset: 75-16-1125RwhfwreEzfir nutritional; endocrine; and metabolic disorders (4 sources)Obesity, unspecified; Translations: [Obesity, unspecified]02-25-2024 ChronicOther upper respiratory disease (8 sources)Hoarse; Translations: [Dysphonia]82-82-5969DnatsifnHkgewnmuf (7 sources)Right hemiparesis; Translations: [Hemiplegia, unspecified affecting right dominant side]Onset: 741115-68-8689QmrzldhZevq-; endo-; and myocarditis; cardiomyopathy (except that caused by tuberculosis or sexually transmitted disease) (1 source)Acute pericarditis; Translations: [Acute pericarditis, unspecified] EpisodicPneumonia (except that caused by tuberculosis or sexually transmitted disease) (8 sources)Pneumonia; Translations: [Pneumonia, unspecified organism]03-15-2024 EpisodicPulmonary heart disease (20 sources)Secondary pulmonary hypertension; Translations: [Other secondary pulmonary hypertension]Onset: 886414-02-8020SelkpflMyxqkyec codes; unclassified (20 sources)Obstructive sleep apnea syndrome; Translations: [Obstructive sleep apnea (adult) (pediatric)]Onset: 415722-45-6111HsvowlqSnmxqbmm codes; unclassified (9 sources)Obstructive sleep apnea (adult) (pediatric); Translations: [Obstructive sleep apnea (adult)(pediatric)]ChronicResidual codes; unclassified (13 sources)Hypersomnia; Translations: [Hypersomnia, unspecified]Onset: 242616-94-1109WtyirzaAemnfcec codes; unclassified (1 source)Postmenopausal state; Translations: [Asymptomatic menopausal state] EpisodicSpondylosis; intervertebral disc disorders; other back problems (20 sources)Lumbar spondylosis; Translations: [Spondylosis without myelopathy or radiculopathy, lumbar region]Onset: 48-02-9444KkjekijXekmwty on above:MRI: L1-2 mod spinal canal stenosis, L2-3 mod right foraminal stenosis, L3-4 mod right foraminal stenosis, L4-5 mod B/L foraminal stenosis, L5S1 mod left foraminal stenosis - 11/2024Unclassified (4 sources)LOW BACK PAIN, UNSPECIFIED; Translations: [LOW BACK PAIN, UNSPECIFIED]Onset: 81-94-4427Rjeiwbylxubv (1 source)CONTACT W/AND (SUSP) EXPOS COVID-19; Translations: [CONTACT W/AND (SUSP) EXPOS COVID-19]Onset: 24-31-1391Jrsoynmserkh (1 source)GASTR-ESOPH RFLX DS ESPHGTS W/O BLD; Translations: [GASTR-ESOPH RFLX DS ESPHGTS W/O BLD]Onset: 46-79-6877Djkvborijizr (1 source)Other ventricular tachycardia; Translations: [Other ventricular tachycardia]Viral infection (1 source)Herpes zoster with complication; Translations: [Zoster with other complications]EpisodicViral infection (1 source)Disease caused by 2019-nCoV; Translations: [COVID-19] Past or Other Problems Problem ClassificationProblemDateDocumented DateEpisodic/ChronicConditions associated with dizziness or vertigo (1 source)Benign paroxysmal positional vertigo; Translations: [Benign paroxysmal vertigo, unspecified ear] Resolved: 36-12-9723FppqvzzsWnoibxg and fatigue (1 source)Malaise and fatigue; Translations: [Other malaise and fatigue]Onset: 93-60-5745EbormgexIveyoujvgsu chest pain (7 sources)Chest pain, unspecified; Translations: [Chest pain]Onset: 04-28-2022 EpisodicOther aftercare (1 source)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; Translations: [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]Onset: 97-43-9389HnzbgpflFgeau aftercare (7 sources)Long-term current use of inhaled steroid; Translations: [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]Onset: 333422-44-9316OkxwgbrqQgnjg gastrointestinal disorders (20 sources)Dysphagia; Translations: [Dysphagia]Onset: 197850-93-3902 EpisodicOther infections; including parasitic (7 sources)Personal history of other infectious and parasitic diseases; Translations: [History of COVID-19]Onset: 07-26-2022 Resolved: 248150-09-6399GkqhnyrtDxqew lower respiratory disease (20 sources)Multiple nodules of lung; Translations: [Other nonspecific abnormal finding of lung field]Onset: 880127-28-6570ZimiapjoPyyspfu on above:CT: 10cm RUL - 09/2022No further imaging due to patient decisionCT: 10cm RUL - 09/2022, CT: 5mm (2), 7mm RUL - 04/2024No further imaging due to patient decision Other lower respiratory disease (11 sources)Chronic cough; Translations: [Chronic cough]Onset: 07-19-2022 EpisodicOther lower respiratory disease (5 sources)Other forms of dyspnea; Translations: [OTHER FORMS OF DYSPNEA]Onset: 64-59-9476JiyeicwjCyrsm lower respiratory disease (8 sources)Dyspnea; Translations: [Other forms of dyspnea]Onset: 07-26-2022 Resolved: 202547-43-6590XvvezejdRqblx lower respiratory disease (9 sources)Hypoxia; Translations: [Hypoxemia]Onset: 949703-93-6237Btxcqlmq Other non-traumatic joint disorders (1 source)Arthralgia of the pelvic region and thigh; Translations: [Pain in joint, pelvic region and thigh]Onset: 18-54-4438YkpgigawFkmws non-traumatic joint disorders (1 source)Arthralgia of the lower leg; Translations: [Pain in joint, lower leg] Onset: 42-74-6432BxofryyoWlbvn nutritional; endocrine; and metabolic disorders (19 sources)Obesity; Translations: [Obesity, unspecified]Onset: 01-05-2023 Resolved: 247316-56-5162VyewbolXszun nutritional; endocrine; and metabolic disorders (1 source)Overweight; Translations: [Overweight]Onset: 99-03-1920YsedbcapUtypl nutritional; endocrine; and metabolic disorders (1 source)Body mass index 25-29 - overweight; Translations: [Body mass index 29.0-29.9, adult]Onset: 43-32-2371BngmtllnDoguc screening for suspected conditions (not mental disorders or infectious disease) (8 sources)Abnormal findings on diagnostic imaging of other specified body structures; Translations: [Imaging of thorax abnormal]Onset: 07-22-2022 Resolved: 738855-93-7580ZstphyqQwdnx screening for suspected conditions (not mental disorders or infectious disease) (17 sources)Encounter for screening mammogram for malignant neoplasm of breast; Translations: [Encounter for screening for diseases of the blood and blood- forming organs and certain disorders involving the immune mechanism]Onset: 03-16-2017 Resolved: 75-16-4581LaynibanLrdonobh codes; unclassified (1 source)Requires influenza virus vaccination; Translations: [Need for prophylactic vaccination and inoculation, Influenza]Onset: 91-46-4308Cvqcpguy Residual codes; unclassified (9 sources)Sleep deprivation; Translations: [Sleep deprivation]Onset: 10-08-2023 04-07-5999LnnuftonOorqktylllq; intervertebral disc disorders; other back problems (9 sources)Radiculopathy, lumbar region; Translations: [Spinal stenosis, lumbar region without neurogenic claudication]Onset: 25-68-0605KhgjejfsJyvgbayyyekd (13 sources)NSVT (nonsustained ventricular tachycardia); Translations: [NSVT (nonsustained ventricular tachycardia)]Unclassified (1 source)LOW BACK PAIN, UNSPECIFIED; Translations: [LOW BACK PAIN, UNSPECIFIED] Onset: 07-20-2022 Results Test NameValueInterpretationReference RangeFacilityNo Panel InformationOrdered By: Ovi Mauricio on 602266-Siogqpy Vitamin D Total28.3 ng/mLChildren'S Hospital Of ColumbusComment on above:<20 ng/mL Vit D ghhvaqbhf60-<30 ng/mL Vit D txbtdzierabz92-397 ng/mL Vit D sufficient>100 ng/mL Potential Toxicity Glucose mean value [Mass/volume] in Blood Estimated from glycated hemoglobin Ordered By: Ovi Mauricio on 45-58-1268Jkivluy glucose Estimated from glycated hemoglobin (Bld) [Mass/Vol]123 mg/dLChildren'S Hospital Of ColumbusHemoglobin A1c percentageOrdered By: Ovi Mauricio on 58-47-3916LkQ7j (Bld) [Mass fraction] 5.9 %4.5-6.2FAultman HospitalComment on above:ADA RECOMMENDED LIMIT 4.0 - 6.0ADA THERAPEUTIC TARGET < 7.0ACTION SUGGESTED> 7.0Laboratory - Chemistry and Chemistry - challengeOrdered By: Ovi Mauricio on 10-23-2024 Albumin [Mass/Vol]3.3 g/dLLow3.4-5.0[facility] Of ColumbusCalcium [Mass/Vol]10.0 mg/dL8.5-10.1FAultman HospitalNo Panel InformationOrdered By: Ovi Mauricio on 217759-Nrrfrfq Vitamin D Total26.8 ng/mLChildren'S Hospital Of ColumbusComment on above:<20 ng/mL Vit D eqwixrgni30-<30 ng/mL Vit D dejolapnekcs33-922 ng/mL Vit D sufficient>100 ng/mL Potential ToxicityParathyroid Hormone (Intact)43 pg/dZ43-71PyzhjkuhwChildren'S Hospital Of ColumbusComment on above:Performed at: - [facility] [id number] Director: Davie Montez PhD, Phone: [phone] Phosphorus Level3.0 mg/dL2.6-4.7FAultman HospitalEstimated glomerular filtration rate (GFR) non- Americanon 95-04-0318FRD/1.73 sq M.predicted among non-blacks MDRD (S/P/Bld) [Vol rate/Area]51 mL/min/{1.73_m2} Low>=60 mL/min/1.73m [address] [place], [place] [address]Laboratory - Chemistry and Chemistry - challengeon 97-99-5451Fvkogtqoxi [Mass/Vol]1.04 mg/dLHigh 0.55-1.02[facility] Of ColumbusGFR/1.73 sq M.predicted MDRD (S/P/Bld) [Vol rate/Area]mL/min/{1.73_m2}>=60 mL/min/1.[address]m [address] [place], [place] [address]Basophils Auto (Bld) [#/Vol]on 67-44-8544Nobukgsfw (Bld) [#/Vol]0.0 10 3/uL0.0-0.1FAultman HospitalBasophils/100 WBC Auto (Bld)on 34-43-0008Yhoxfjugp/100 WBC (Bld)0.1 %Low0.2-2.0[facility] ColumbusCholesterol in LDL Calc [Mass/Vol]on 44-97-7959Pkaplqyqgvq in LDL [Mass/Vol]42.0 mg/dLChildren'S Hospital Of ColumbusComment on above:<100 mg/dl LGMETUB591-178 mg/dl NEAR OR ABOVE GSNOQBB545-049 mg/dl BORDERLINE WUBL739-182 mg/dl HIGH>190 mg/dl VERY HIGHCholesterol in VLDL Calc [Mass/Vol]on 09-03-2024 Cholesterol in VLDL [Mass/Vol]14.4 mg/dLChildren'S Hospital Of Columbus Eosinophils/100 WBC Auto (Bld)on 77-75-0526Sqvtdtespva/100 WBC (Bld)0.1 %Low 0.9-7.0[facility] Of ColumbusErythrocyte distribution width Auto (RBC) [Ratio]on 75-81-5893Grvagosjjas distribution width (RBC) [Ratio]13.2 % 11.0-15.0[facility] ColumbusEstimated glomerular filtration rate (GFR) non- Americanon 33-79-4152CMX/1.73 sq M.predicted among non-blacks MDRD (S/P/Bld) [Vol rate/Area]39 mL/min/{1.73_m2}Low>=60 mL/min/1.73m 2FAultman HospitalGlobulin Calc (S) [Mass/Vol]on 85-10-6126Gutqiywi (S) [Mass/Vol]3.3 g/dLChildren'S Hospital Of ColumbusHematocrit Auto (Bld) [Volume fraction]on 41-43-4834Ksdaitahxo (Bld) [Volume fraction]37.6 %36.0-48.0 [facility] ColumbusHemoglobin [Mass/volume] in Bloodon 09-03-2024 Hemoglobin (Bld) [Mass/Vol]12.8 g/dL12.0-16.0[facility] Laboratory - Chemistry and Chemistry - challengeon 69-38-8382Xubgopi [Mass/Vol] 3.7 g/dL3.4-5.0[facility] ColumbusALP [Catalytic activity/Vol]75 U/R15-272MebwxgnuiChildren'S Hospital Of ColumbusALT [Catalytic activity/Vol]21 U/L 14-59[facility] Of ColumbusAST [Catalytic activity/Vol]13 U/CRob55-53 [facility] ColumbusBilirubin [Mass/Vol]0.7 mg/dL0.2-1.0[facility] ColumbusCalcium [Mass/Vol]10.6 mg/dLHigh8.5-10.1FAultman HospitalChloride [Moles/Vol]103 mmol/I01-982BrvevkupzChildren'S Hospital Of ColumbusCholesterol [Mass/Vol]129 mg/dL<=200[facility] ColumbusCholesterol in HDL [Mass/Vol]73 mg/vKNyml79-03CmpbvyugwChildren'S Hospital Of ColumbusComment on above:> or =60 mg/dl - LOW CARDIOVASCULAR RISK<40 mg/dl - HIGH CARDIOVASCULAR RISKCO2 [Moles/Vol]32.4 mmol/LHigh21.0-32.0[facility] ColumbusCreatinine [Mass/Vol]1.32 mg/dLHigh0.55-1.02[facility] ColumbusGFR/1.73 sq M.predicted MDRD (S/P/Bld) [Vol rate/Area]47 mL/min/{1.73_m2}Low>=60 mL/min/1.73m 2FAultman HospitalGlucose [Mass/Vol]149 mg/qBYnzr64-880MhtwnopayChildren'S Hospital Of ColumbusPotassium [Moles/Vol]3.6 mmol/L3.5-5.1FAultman HospitalProtein [Mass/Vol] 7.0 g/dL6.4-8.2FSt. John of God Hospitalodium [Moles/Vol]139 mmol/L 136-145Children[facility] Hospital Of ColumbusTriglyceride [Mass/Vol]72 mg/dL<=150 [facility] ColumbusUrea nitrogen [Mass/Vol]20.0 mg/dLHigh7.0-18.0 [facility] ColumbusUrea nitrogen/Creatinine [Mass ratio]15.2 mg/mg [facility] ColumbusLaboratory - Hematology and Cell countson 93-75-0848Xoskitrz granulocytes/100 WBC (Bld)0.4 %0.0-0.5FAultman HospitalLeukocytes [#/volume] corrected for nucleated erythrocytes in Blood by Automated counon 57-87-4769RQI corrected for nucl RBC Auto (Bld) [#/Vol]10.8 10 3/uL4.0-11.0[facility] Hospital Of ColumbusLymphocytes Auto (Bld) [#/Vol]on 77-71-5650Aavciozzxaw (Bld) [#/Vol]1.3 10 3/uL1.2-3.8[facility] Hospital Of ColumbusLymphocytes/100 WBC Auto (Bld)on 09-03-2024 Lymphocytes/100 WBC (Bld)11.6 %Low20.5-60.0[facility] Of ColumbusMCH Auto (RBC) [Entitic mass]on 60-57-5312AEN (RBC) [Entitic mass]30.2 pg26.7-34.0 [facility] Of ColumbusMCHC Auto (RBC) [Mass/Vol]on 85-38-5507HZJM (RBC) [Mass/Vol]34.0 g/dL29.9-35.2FAultman HospitalMCV Auto (RBC) [Entitic vol]on 55-04-3996QSY (RBC) [Entitic vol]88.7 fL81.0-99.0[facility] ColumbusMonocytes Auto (Bld) [#/Vol]on 83-65-6881Zsdsqlwep (Bld) [#/Vol]0.4 10 3/uL0.3-0.8[facility] ColumbusMonocytes/100 WBC Auto (Bld)on 79-92-5247Wacbbnbox/100 WBC (Bld)3.8 %1.7-12.0[facility] Of ColumbusNeutrophils Auto (Bld) [#/Vol]on 93-92-6322Rrsenmsufyz (Bld) [#/Vol]9.1 10 3/uLHigh1.4-6.5FAultman HospitalNeutrophils/100 WBC Auto (Bld)on 85-21-4068Ssdhknjkaea/100 WBC (Bld)84.0 %High43.0-75.0[facility] Of ColumbusNo Panel Informationon 51-61-0251Aipifxzfffm # (Auto)0.0 10 3/uL0.0-0.7FAultman HospitalImmature Granulocyte # (Auto) 0.04 10 3/uLHigh0.00-0.03[facility] Of ColumbusPlatelet mean volume Auto (Bld) [Entitic vol]on 25-26-5190Aczgdlio mean volume (Bld) [Entitic vol] 11.8 fL9.5-13.5FAultman HospitalPlatelets Auto (Bld) [#/Vol]on 65-83-2569Pdmdreqdu (Bld) [#/Vol]213 10 3/oW600-124LxyditagpChildren'S Hospital Of ColumbusRBC Auto (Bld) [#/Vol]on 36-45-4014CVN (Bld) [#/Vol]4.24 10 6/uL4.20-5.40 [facility] Centererum or plasma albumin/globulin mass ratioon 97-86-9239Udwlhsv/Globulin [Mass ratio]1.1 {ratio}[facility] Centererum or plasma anion gap determinationon 98-18-0126Qwqit gap [Moles/Vol] 7.2 mmol/LFSt. John of God Hospitalerum or plasma total cholesterol/high density lipoprotein (HDL) cholesterol mass gavin 09-03-2024 Cholesterol.total/Cholesterol in HDL [Mass ratio]1.8 {ratio}[facility] Of ColumbusComment on above:3.3 - 4.4 LOW RISK4.4 - 7.1 AVERAGE RISK7.1 - 11.0 MODERATE RISK>11.0 HIGH RISKBasophils Auto (Bld) [#/Vol]on 03-09-2024 Basophils (Bld) [#/Vol]Automated basophil count0.0-0.1FAultman HospitalBasophils/100 WBC Auto (Bld)on 00-38-3531Oqgvktqow/100 WBC (Bld)Automated basophil %Low0.2-2.0[facility] ColumbusEosinophils/100 WBC Auto (Bld)on 25-77-9475Tatgbvyicqi/100 WBC (Bld)Automated eosinophil %Low0.9-7.0 [facility] ColumbusErythrocyte distribution width Auto (RBC) [Ratio]on 98-71-5400Rxqgktezvvf distribution width (RBC) [Ratio]Erythrocyte distribution width [Ratio] by Automated count11.0-15.0[facility] ColumbusEstimated glomerular filtration rate (GFR) non- Americanon 12-90-4236QZX/1.73 sq M.predicted among non-blacks MDRD (S/P/Bld) [Vol rate/Area]Estimated glomerular filtration rate (GFR) non- AmericanLow>=60 mL/min/1.73m 2FAultman HospitalHematocrit Auto (Bld) [Volume fraction]on 88-90-6654Caoahvbdty (Bld) [Volume fraction]Hematocrit [Volume Fraction] of Blood by Automated wdkguUvh47.0-48.0[facility] Of ColumbusHemoglobin [Mass/volume] in Bloodon 64-79-9787Ncvoiklkez (Bld) [Mass/Vol] Hemoglobin [Mass/volume] in WzabfFhc82.0-16.0[facility] Laboratory - Chemistry and Chemistry - challengeon 57-68-9524Nbnfkig [Mass/Vol] 8.9 mg/dL8.5-10.1FAultman HospitalChloride [Moles/Vol]103 mmol/L 98-107Children[facility] Hospital Of ColumbusCO2 [Moles/Vol]21.8 mmol/L21.0-32.0 [facility] ColumbusCreatinine [Mass/Vol]1.74 mg/dLHigh0.55-1.02 [facility] ColumbusGFR/1.73 sq M.predicted MDRD (S/P/Bld) [Vol rate/Area]34 mL/min/{1.73_m2}Low>=60 mL/min/1.73m 2FAultman HospitalGlucose [Mass/Vol]164 mg/ySZeuk69-394XljnjydcmChildren'S Hospital Of Columbus Potassium [Moles/Vol]2.9 mmol/LCritically low3.5-5.1FAultman HospitalComment on above:RESULTS CALLED TO JASON VAZQUEZ RN @BY Cecile [place] vy6590Rsumrm [Moles/Vol]141 mmol/G988-765MplameufjChildren'S Hospital Of ColumbusUrea nitrogen [Mass/Vol]21.0 mg/dLHigh7.0-18.0[facility] ColumbusUrea nitrogen/Creatinine [Mass ratio]12.1 mg/mgChildren'S Hospital Of Columbus Laboratory - Hematology and Cell countson 37-03-6062Gbyletaa granulocytes/100 WBC (Bld)0.7 %High0.0-0.5FAultman HospitalLeukocytes [#/volume] corrected for nucleated erythrocytes in Blood by Automated counon 36-45-3002ZVO corrected for nucl RBC Auto (Bld) [#/Vol]Leukocytes [#/volume] corrected for nucleated erythrocytes in Blood by Automated coun4.0-11.0[facility] Hospital Of ColumbusLymphocytes Auto (Bld) [#/Vol]on 62-85-6153Tdxobvcgsmx (Bld) [#/Vol]Lymphocytes [#/volume] in Blood by Automated count1.2-3.8[facility] Of ColumbusLymphocytes/100 WBC Auto (Bld)on 03-09-2024 Lymphocytes/100 WBC (Bld)Lymphocytes/100 leukocytes in Blood by Automated count Low20.5-60.0[facility] Of ColumbusMCH Auto (RBC) [Entitic mass]on 69-18-4259CMT (RBC) [Entitic mass]MCH [Entitic mass] by Automated count26.7-34.0 [facility] Of ColumbusMCHC Auto (RBC) [Mass/Vol]on 61-82-7639UDRU (RBC) [Mass/Vol]MCHC [Mass/volume] by Automated count29.9-35.2FRegency Hospital ToledoV Auto (RBC) [Entitic vol]on 10-24-2173YPL (RBC) [Entitic vol] MCV [Entitic volume] by Automated count81.0-99.0[facility] ColumbusMonocytes Auto (Bld) [#/Vol]on 30-59-3787Ddslrnmtw (Bld) [#/Vol]Automated blood monocyte count0.3-0.8[facility] ColumbusMonocytes/100 WBC Auto (Bld)on 68-58-1522Zoiywrhuj/100 WBC (Bld)Automated monocyte %1.7-12.0 [facility] Of ColumbusNeutrophils Auto (Bld) [#/Vol]on 03-09-2024 Neutrophils (Bld) [#/Vol]Neutrophils [#/volume] in Blood by Automated countHigh 1.4-6.5FAultman HospitalNeutrophils/100 WBC Auto (Bld)on 48-82-7260Esjxgrmbiid/100 WBC (Bld)Automated neutrophil %High43.0-75.0[facility] ColumbusNo Panel Informationon 36-88-7476Gbxoczweyvq # (Auto)0.0 10 3/uL0.0-0.7FAultman HospitalImmature Granulocyte # (Auto)0.06 10 3/uLHigh0.00-0.03[facility] ColumbusPlatelet mean volume Auto (Bld) [Entitic vol]on 15-08-7569Czuhdxca mean volume (Bld) [Entitic vol]Platelet mean volume [Entitic volume] in Blood by Automated count9.5-13.5FAultman HospitalPlatelets Auto (Bld) [#/Vol]on 72-55-5055Jifthcdex (Bld) [#/Vol]Platelets [#/volume] in Blood by Automated jpqac167-806NyrtkexhuChildren'S Hospital Of ColumbusRBC Auto (Bld) [#/Vol]on 87-11-1556BXW (Bld) [#/Vol]Erythrocytes [#/volume] in Blood by Automated countLow4.20-5.40[facility] Centererum or plasma anion gap determinationon 13-49-7287Iloam gap [Moles/Vol] Serum or plasma anion gap determinationChildren'S Hospital Of Columbus Basophils Auto (Bld) [#/Vol]on 11-99-5390Dspikijth (Bld) [#/Vol]Automated basophil count0.0-0.1FAultman HospitalBasophils/100 WBC Auto (Bld)on 16-55-4882Enyxptizk/100 WBC (Bld)Automated basophil %0.2-2.0[facility] Of ColumbusEosinophils/100 WBC Auto (Bld)on 03-08-2024 Eosinophils/100 WBC (Bld)Automated eosinophil %0.9-7.0[facility] Of ColumbusErythrocyte distribution width Auto (RBC) [Ratio]on 67-14-3942Smsvtagetex distribution width (RBC) [Ratio]Erythrocyte distribution width [Ratio] by Automated count11.0-15.0[facility] ColumbusEstimated glomerular filtration rate (GFR) non- Americanon 82-50-1554EJS/1.73 sq M.predicted among non-blacks MDRD (S/P/Bld) [Vol rate/Area]Estimated glomerular filtration rate (GFR) non- AmericanLow>=60 mL/min/1.73m 2FAultman HospitalFibrin D-dimer [Presence] in Platelet poor plasma by Latex agglutinationon 90-82-5451Wuhcub D-dimer LA Ql (PPP)Fibrin D-dimer [Presence] in Platelet poor plasma by Latex agglutinationCritically high<=0.59Children[facility] Hospital Of ColumbusComment on above:RESULTS CALLED TO CHONG Villeda RN @BY Tarun Albright MLT at 0609Increases in D-Dimer concentration observed withthromboembolic events can be variable due to localization,size, and age of the thrombus. Therefore, a thromboembolicevent cannot be diagnosed with certainty on the basis of thereference range. D-Dimers may also be elevated for a varietyof disorders including advanced age, , coronarydisease, cancer, liver disease, infection, inflammation,hematoma, DIC, trauma, post-surge ry, diabetes, thrombolyticor anticoagulant therapy, stress, and generalizedhospitalization.Globulin Calc (S) [Mass/Vol]on 31-51-3325Kijamdrr (S) [Mass/Vol]Serum globulin measurement by calculation (mass/volume)[facility] Of ColumbusHematocrit Auto (Bld) [Volume fraction]on 03-08-2024 Hematocrit (Bld) [Volume fraction]Hematocrit [Volume Fraction] of Blood by Automated vgtblWwj38.0-48.0[facility] Of ColumbusHemoglobin [Mass/volume] in Bloodon 73-01-5484Sfacfnnyom (Bld) [Mass/Vol]Hemoglobin [Mass/volume] in NztwwUhi11.0-16.0[facility] ColumbusLaboratory - Chemistry and Chemistry - challengeon 16-83-5912Cedjuva [Mass/Vol]3.2 g/dLLow 3.4-5.0[facility] ColumbusALP [Catalytic activity/Vol]89 U/L46-116 [facility] ColumbusALT [Catalytic activity/Vol]156 U/VYhko79-21 [facility] ColumbusAST [Catalytic activity/Vol]178 U/SGzbf06-71 [facility] ColumbusBilirubin [Mass/Vol]1.4 mg/dLHigh0.2-1.0 [facility] ColumbusBilirubin.direct [Mass/Vol]0.4 mg/dLHigh0.0-0.2 [facility] Of ColumbusLactate [Moles/Vol]1.2 mmol/L0.4-2.0[facility] ColumbusLipase [Catalytic activity/Vol]26.0 U/L16.0-77.0[facility] ColumbusMagnesium [Mass/Vol]1.9 mg/dL1.8-2.4FAultman HospitalNatriuretic peptide B (Bld) [Mass/Vol]697.0 pg/mL<=1800.0[facility] ColumbusProtein [Mass/Vol]6.3 g/dLLow6.4-8.2FAultman HospitalBilirubin Ql (U)NegativeNEGATIVEChildren'S Hospital Of Columbus Glucose (U) [Mass/Vol]NegativeNEGATIVEChildren'S Hospital Of ColumbusKetones Ql (U)NegativeNEGATIVEChildren'S Hospital Of ColumbuspH (U)7.0 [pH]5.0-9.0 [facility] Centerpecific gravity (U) [Rel density]1.010 1.005-1.025Children[facility] Hospital Of ColumbusUrobilinogen Qn (U)1.0 {Nora'U}/dL0.2-1.0[facility] ColumbusCalcium [Mass/Vol]9.0 mg/dL8.5-10.1FAultman HospitalChloride [Moles/Vol]106 mmol/L 98-107Children[facility] Hospital Of ColumbusCO2 [Moles/Vol]29.0 mmol/L21.0-32.0 [facility] ColumbusCreatinine [Mass/Vol]1.25 mg/dLHigh0.55-1.02 [facility] ColumbusGFR/1.73 sq M.predicted MDRD (S/P/Bld) [Vol rate/Area]50 mL/min/{1.73_m2}Low>=60 mL/min/1.73m 2FAultman HospitalGlucose [Mass/Vol]111 mg/sWAddu93-259TpalefkbgChildren'S Hospital Of Columbus Potassium [Moles/Vol]3.1 mmol/LLow3.5-5.1FSt. John of God Hospitalodium [Moles/Vol]145 mmol/G972-134UzwinlceoChildren'S Hospital Of ColumbusUrea nitrogen [Mass/Vol]18.0 mg/dL7.0-18.0[facility] Of ColumbusUrea nitrogen/Creatinine [Mass ratio]14.4 mg/mgChildren'S Hospital Of Columbus Laboratory - Hematology and Cell countson 67-38-8732Irthkjdo granulocytes/100 WBC (Bld)0.3 %0.0-0.5FAultman HospitalLaboratory - Microbiology and Antimicrobial susceptibilityon 25-68-4308MWVL-CoV-2 (COVID-19) RNA RADHA+probe Ql (Unsp spec)NegativeNEGMansfield HospitalComment on above: This test has not been FDA cleared or approved, but has beenauthorized [...] the declaration isterminated or authorization is revoked sooner.S. agalactiae Org specific cx Ql (Vag fld)Not detectedNOT DETECTAshtabula General HospitalLaboratory - Specimen informationon 78-69-1371Wxckshmjqf (U)CLEARCLEARFAultman HospitalColor (U)LT. YELLOWYELLOWChildren'S Hospital Of Columbus Laboratory - Urinalysison 31-21-3248Kcoocpp casts LM Ql (Urine sed)RAREChildren'S Hospital Of ColumbusLeukocyte esterase Test strip Ql (U)NegativeNEGATIVE [facility] ColumbusMucus Ql (Urine sed)TRACEAbnormalNONE SEEN [facility] ColumbusNitrite Ql (U)NegativeNEGATIVEChildren'S Hospital Of ColumbusProtein Ql (U)NegativeNEG/TRACEChildren'S Hospital Of ColumbusLeukocytes [#/volume] corrected for nucleated erythrocytes in Blood by Automated counon 88-10-5287IYF corrected for nucl RBC Auto (Bld) [#/Vol] Leukocytes [#/volume] corrected for nucleated erythrocytes in Blood by Automated coun4.0-11.0[facility] Of ColumbusLymphocytes Auto (Bld) [#/Vol]on 66-77-4323Kxvazswmxfl (Bld) [#/Vol]Lymphocytes [#/volume] in Blood by Automated count1.2-3.8[facility] ColumbusLymphocytes/100 WBC Auto (Bld)on 27-94-9200Aasqehhuaif/100 WBC (Bld)Lymphocytes/100 leukocytes in Blood by Automated ymmdqHtd56.5-60.0[facility] NorthH Auto (RBC) [Entitic mass]on 77-70-4176AYZ (RBC) [Entitic mass]MCH [Entitic mass] by Automated count26.7-34.0[facility] NorthHC Auto (RBC) [Mass/Vol]on 12-98-1171YHUW (RBC) [Mass/Vol]MCHC [Mass/volume] by Automated count29.9-35.2FRegency Hospital ToledoV Auto (RBC) [Entitic vol]on 17-93-1097QPM (RBC) [Entitic vol]MCV [Entitic volume] by Automated count 81.0-99.0[facility] ColumbusMonocytes Auto (Bld) [#/Vol]on 24-79-3394Darshcjgf (Bld) [#/Vol]Automated blood monocyte count0.3-0.8[facility] ColumbusMonocytes/100 WBC Auto (Bld)on 26-50-9038Tqgkvivwn/100 WBC (Bld)Automated monocyte %1.7-12.0[facility] Neutrophils Auto (Bld) [#/Vol]on 48-96-0304Yxgbdkuurgf (Bld) [#/Vol]Neutrophils [#/volume] in Blood by Automated countHigh1.4-6.5FAultman HospitalNeutrophils/100 WBC Auto (Bld)on 35-31-5831Mqnkalikpob/100 WBC (Bld) Automated neutrophil %43.0-75.0[facility] ColumbusNo Panel Informationon 90-90-5352Ritizzus I High Sensitivity9.3 pg/mL4.0-51.3FAultman HospitalComment on above:CUT-OFF POINTS HAVE BEEN ESTABLISHED BASED ON THE FOURTHUNIVERSAL DEFINITION OF MYOCARDIAL INFARCTION. THE UPPERREFERENCE LIMIT (URL) OF TROPONIN, DEFINED THE 99THPERCENTILE OF cTnI DISTRIBUTION IN A REFERENCE POPULATION,HAS BEEN CONFIRMED THE DECISION THRESHOLD FOR MIDIAGNOSIS.99TH PERCENTILE = 51.4 PG/MLNOTE: HIGH-SENSITIVITY TROPONIN ASSAY IS NOT INTENDED TO BEUSED IN ISOLATION BUT SHOULD BE INTERPRETED IN CONJUNCTIONWITH OTHER DIAGNOSTIC AND CLINICAL INFORMATION.Bedside Influenza Type A AntigenNegativeParma Community General Hospital Medical CenterComment on above:Negative for Flu A protein antigen. Infection due to Flu Acannot be ruled out. Flu A antigen in thesample may bebelow the detection limit of the test.Bedside Influenza Type B AntigenNegativeChildren'S Hospital Of ColumbusComment on above:Negative for Flu B protein antigen. Infection due to Flu Bcannot be ruled out. Flu B antigen in thesample may bebelow the detection limit of the test. Urine BacteriaTRACE #/HPFAbnormalNONE [facility] HospitalUrine Culture ReflexedNOChildren'S Hospital Of ColumbusUrine Occult BloodTRACE-L NEGATIVEChildren'S Hospital Of ColumbusUrine Other CastsSEEN #/LPFAbnormalNONE [facility] HospitalUrine Other CrystalsNone Seen #/HPFNone [facility] CenterUrine RBC0-2 #/HPF0-2FAultman HospitalUrine Squamous Epithelial CellsRARE #/LPFNONE/RAREChildren'S Hospital Of ColumbusUrine WBC0-2 #/HPFAbnormalNONE [facility] HospitalA.calcoaceticus-baumannii cmplx PCRNot detectedNOT DETECTSelect Medical Cleveland Clinic Rehabilitation Hospital, Edwin ShawBacteroides fragilis (PCR)Not detectedNOT [facility] CenterBlood Culture SourceBloodChildren'S Hospital Of ColumbusCandida albicans (PCR)Not detectedNOT [facility] CenterCandida auris (PCR)Not detectedNOT [facility] CenterCandida glabrata (PCR)Not detectedNOT DETECTAshtabula General HospitalCandida krusei (PCR)Not detectedNOT DETECTAshtabula General HospitalCandida parapsilosis (PCR)Not detectedNOT DETECTE [facility] Hospital Of ColumbusCandida tropicalis (PCR)Not detectedNOT DETECTSelect Medical Cleveland Clinic Rehabilitation Hospital, Edwin ShawCrypto neoformans/gattii (PCR)(LAB)Not detected NOT DETECTAshtabula General HospitalCTX-M ESBL (PCR)NOT APPLICABLENOT [facility] CenterEnterobacter cloacae complex (PCR)Not detectedNOT DETECTAshtabula General HospitalEnterobacterales (PCR)Not detectedNOT [facility] CenterEnterococcus faecalis PCRNot detectedNOT [facility] CenterEnterococcus faecium PCRNot detectedNOT [facility] CenterEscherichia coli ResultNot detectedNOT [facility] CenterHaemophilus influenzae DNA Not detectedNOT [facility] Medical CenterIMP (blaIMP) Carbap Res Gene (PCR)NOT APPLICABLENOT [facility] CenterKlebsiella aerogenes (PCR)Not detectedNOT [facility] Klebsiella oxytoca (PCR)Not detectedNOT [facility] Klebsiella pneumoniae group (PCR)Not detectedNOT [facility] CenterKPC (blaKPC) Detection (PCR)NOT APPLICABLENOT [facility] CenterListeria monocytogenes (PCR)Not detectedNOT DETECTSelect Medical Cleveland Clinic Rehabilitation Hospital, Edwin ShawMCR-1 Resistance GeneNOT APPLICABLENOT [facility] CentermecA/C & MREJ Antimicrob Resist GenNOT APPLICABLENOT [facility] CentermecA/C-Methicillin Resistance GeneNOT APPLICABLENOT [facility] CenterNDM (blaNDM) Detection (PCR)NOT APPLICABLENOT [facility] CenterNeisseria meningitidis (PCR)Not detectedNOT [facility] CenterProteus species (PCR)Not detectedNOT [facility] CenterPseudomonas aeruginosa (PCR)Not detectedNOT [facility] Hospitalalmonella spp. (PCR)Not detectedNOT [facility] Hospitalerratia marcescens (PCR)Not detectedNOT [facility] Hospitaltaphylococcus aureus (PCR)(LAB)Not detectedNOT [facility] Centertaphylococcus epidermidis (PCR)Not detectedNOT [facility] Hospitaltaphylococcus lugdunensis (TEM-PCRNot detectedNOT [facility] Hospitaltaphylococcus species (PCR) Not detectedNOT [facility] Hospitaltenotroph. maltophilia (PCR)Not detectedNOT [facility] Hospitaltreptococcus pneumoniae (PCR)Not detectedNOT [facility] Streptococcus pyogenes (PCR)(LAB)Not detectedNOT [facility] Hospitaltreptococcus species (PCR)Not detectedNOT [facility] Hospitalyn OXA-48-like Carb Res Gene (PCR)NOT APPLICABLENOT [facility] CenterVanA/B-Vancomycin Resistance GenesNOT APPLICABLENOT DETECTAshtabula General HospitalVIM (blaVIM) Carbap Res Gene (PCR)NOT APPLICABLENOT DETECTAshtabula General HospitalEosinophils # (Auto)0.1 10 3/uL0.0-0.7FAultman HospitalImmature Granulocyte # (Auto)0.03 10 3/uL0.00-0.03Children'S Hospital Of ColumbusNo Panel InformationOrdered By: Rich Carcamo on 86-28-6490Rqfwhqdb Identification Only [facility]S Hospital Of ColumbusBlood Culture 1FAultman HospitalPlatelet mean volume Auto (Bld) [Entitic vol]on 34-73-2051Edvrsngm mean volume (Bld) [Entitic vol]Platelet mean volume [Entitic volume] in Blood by Automated count9.5-13.5FAultman HospitalPlatelets Auto (Bld) [#/Vol]on 25-24-6139Fvkkcpqbf (Bld) [#/Vol]Platelets [#/volume] in Blood by Automated uhpkc375-416GnwjwwlswChildren'S Hospital Of ColumbusRBC Auto (Bld) [#/Vol]on 67-20-9298WOX (Bld) [#/Vol]Erythrocytes [#/volume] in Blood by Automated count Low4.20-5.40[facility] Centererum or plasma albumin/globulin mass ratioon 88-31-2454Ryemqvk/Globulin [Mass ratio]Serum or plasma albumin/globulin mass ratioThe University of [facility] Medical Centererum or plasma anion gap determinationon 75-41-8887Ssdib gap [Moles/Vol]Serum or plasma anion gap determinationChildren'S Hospital Of ColumbusBasophils Auto (Bld) [#/Vol]on 48-42-2183Iziixfpkk (Bld) [#/Vol]0.0 10 3/uL0.0-0.1FAultman HospitalBasophils/100 WBC Auto (Bld)on 47-80-8724Dmujvxtxg/100 WBC (Bld)0.4 % 0.2-2.0Children'S Hospital Of ColumbusEosinophils/100 WBC Auto (Bld)on 74-68-8858Nvnaydnezug/100 WBC (Bld)2.6 %0.9-7.0[facility] Erythrocyte distribution width Auto (RBC) [Ratio]on 66-75-5838Tpkejselkto distribution width (RBC) [Ratio]13.3 %11.0-15.0[facility] Estimated glomerular filtration rate (GFR) non- Americanon 11-07-2023 GFR/1.73 sq M.predicted among non-blacks MDRD (S/P/Bld) [Vol rate/Area]45 mL/min/{1.73_m2}Low>=60Children'S Hospital Of ColumbusHematocrit Auto (Bld) [Volume fraction]on 90-77-4043Anoestvkxs (Bld) [Volume fraction]35.4 %Low 36.0-48.0Children'S Hospital Of ColumbusHemoglobin [Mass/volume] in Bloodon 83-78-7198Nkpziuaamv (Bld) [Mass/Vol]11.8 g/dLLow12.0-16.0Children[facility]S Hospital Of ColumbusIron binding capacity [Mass/volume] in Serum or Plasmaon 07-23-2276Ppcf binding capacity [Mass/Vol]258.0 ug/dL250.0-450.0Children'S Hospital Of ColumbusIron saturation [Mass Fraction] in Serum or Plasmaon 13-10-4822Fhje saturation [Mass fraction]31.8 %[facility] Laboratory - Chemistry and Chemistry - challengeon 42-99-0058Xjcmbkr [Mass/Vol] 10.0 mg/dL8.5-10.1FAultman HospitalChloride [Moles/Vol]102 mmol/P70-384AemvskrusChildren'S Hospital Of ColumbusCO2 [Moles/Vol]30.7 mmol/L21.0-32.0 [facility] Hospital Of ColumbusCobalamin (Vitamin B12) [Mass/Vol]344.0 pg/mL 193.0-986.0[facility] Hospital Of ColumbusCreatinine [Mass/Vol]1.17 mg/dLHigh 0.55-1.02Children'S Hospital Of ColumbusFerritin [Mass/Vol]154.0 ng/mL 8.0-252.0Children'[facility] Hospital Of ColumbusGFR/1.73 sq M.predicted MDRD (S/P/Bld) [Vol rate/Area]54 mL/min/{1.73_m2}Low>=60[facility] Glucose [Mass/Vol]107 mg/iJYezb10-421NoysvkdioChildren'S Hospital Of ColumbusIron [Mass/Vol]82.0 ug/dL50.0-170.0[facility] Hospital Of ColumbusPotassium [Moles/Vol]3.5 mmol/L3.5-5.1FSt. John of God Hospitalodium [Moles/Vol] 141 mmol/P910-134UnydqyfmmChildren'S Hospital Of ColumbusUrea nitrogen [Mass/Vol]15.0 mg/dL7.0-18.0Children[facility] Hospital Of ColumbusUrea nitrogen/Creatinine [Mass ratio]12.8 mg/mgChildren'S Hospital Of ColumbusLaboratory - Hematology and Cell countson 08-30-9851Xtiueypg granulocytes/100 WBC (Bld)0.2 %0.0-0.5FAultman HospitalLeukocytes [#/volume] corrected for nucleated erythrocytes in Blood by Automated counon 93-69-2946VDH corrected for nucl RBC Auto (Bld) [#/Vol]5.3 10 3/uL4.0-11.0[facility] Lymphocytes Auto (Bld) [#/Vol]on 92-20-4399Vrldctzoxxo (Bld) [#/Vol]1.9 10 3/uL 1.2-3.8Children'S Hospital Of ColumbusLymphocytes/100 WBC Auto (Bld)on 66-12-6551Ipozaprmwuu/100 WBC (Bld)35.4 %20.5-60.0[facility] NorthH Auto (RBC) [Entitic mass]on 30-22-3324BYM (RBC) [Entitic mass]30.6 pg 26.7-34.0Children'S Hospital Of ColumbusMCHC Auto (RBC) [Mass/Vol]on 69-68-3563ZBYJ (RBC) [Mass/Vol]33.3 g/dL29.9-35.2FAultman HospitalMCV Auto (RBC) [Entitic vol]on 18-46-7916SXK (RBC) [Entitic vol]91.7 fL 81.0-99.0Children'[facility] Hospital Of ColumbusMonocytes Auto (Bld) [#/Vol]on 15-49-2295Afkrcfapu (Bld) [#/Vol]0.6 10 3/uL0.3-0.8Children[facility] Hospital Of ColumbusMonocytes/100 WBC Auto (Bld)on 16-00-5427Xxecsmbps/100 WBC (Bld)12.1 %High 1.7-12.0Children'S Hospital Of ColumbusNeutrophils Auto (Bld) [#/Vol]on 81-81-6302Emeeqjvtqxo (Bld) [#/Vol]2.6 10 3/uL1.4-6.5FAultman HospitalNeutrophils/100 WBC Auto (Bld)on 15-73-0154Ltldmaifnud/100 WBC (Bld)49.3 % 43.0-75.0Children[facility] Hospital Of ColumbusNo Panel Informationon 11-07-2023 Eosinophils # (Auto)0.1 10 3/uL0.0-0.7FAultman HospitalFolate 17.80 ng/mL8.60-58.90Children'S Hospital Of ColumbusImmature Granulocyte # (Auto)0.01 10 3/uL0.00-0.03Children'S Hospital Of ColumbusPlatelet mean volume Auto (Bld) [Entitic vol]on 63-42-8097Zlelelzx mean volume (Bld) [Entitic vol] 12.2 fL9.5-13.5FAultman HospitalPlatelets Auto (Bld) [#/Vol]on 13-47-9374Cygexwgob (Bld) [#/Vol]190 10 3/hA238-138PmlncddvpChildren'S Hospital Of ColumbusRBC Auto (Bld) [#/Vol]on 72-66-0701GCV (Bld) [#/Vol]3.86 10 6/uLLow 4.20-5.40[facility] Centererum or plasma anion gap determinationon 59-63-6835Maqxz gap [Moles/Vol]11.8 mmol/LFAultman HospitalRF videography Hypopharynx and Esophagus Views for swallowing function W speech and W barium contrast [place] 96-73-2[address] [address] Fluoroscopy Report Signed Patient: GIOVANNA BAUM MR#: [id number] : 1940 Acct:[id number] Age/Sex: 82 / F ADM Date: 09/13/23 Loc: [place] Attending Dr: Torres Rosa M.D. Ordering Physician: Torres Rosa M.D. Date of Service: 09/13/23 Procedure(s): FL modified barium swallow Accession Number(s): [id number] cc: Ovi Mauricio D.O.; Torres Rosa M.D. [place] [address] Patient Name: GIOVANNA BAUM MRN: [id number] date: 1940 Sex: F Assigned Patient Location: [place] Current Patient Location[place] Accession/Order Number: [id number] Exam Date: 09/13/2023 13:00 Report Date: 09/13/2023 14:07 At the request of: TORRES ROSA Procedure: FL modified barium swallow EXAMINATION: FL [...] report for further discussion. Electronically authenticated by: WILLIAM BERMEO Date: 09/13/2023 14:07 Dictated By: William Bermeo M.D. Signed By: 09/13/23 1410 DD/ 1407 TD/TT: Granite Polisher:TBHRadiology, Radiologist, MD - 09/13/[address] [address] Fluoroscopy Report Signed Patient: GIOVANNA BAUM MR#: [id number] : 1940 Acct:[id number] Age/Sex: 82 / F ADM Date: 09/13/23 Loc: [place] Attending Dr: Torres Rosa M.D. Ordering Physician: Torres Rosa M.D. Date of Service: 09/13/23 Procedure(s): FL modified barium swallow Accession Number(s): [id number] cc: Ovi Mauricio D.O.; Torres Rosa M.D. The [place] [id number] Patient Name: GIOVANNA BAUM MRN: [id number] date: 1940 Sex: F Assigned Patient [place]: [place] Current Patient Location[place] Accession/Order Number: [id number] Exam Date: 09/13/2023 13:00 Report Date: 09/13/2023 14:07 At the request of: TORRES ROSA Procedure: FL modified barium swallow EXAMINATION: FL [...] report for further discussion. Electronically authenticated by: WILLIAM BERMEO Date: 09/13/2023 14:07 Dictated By: William Bermeo M.D. Signed By: 09/13/23 1410 DD/ 1407 TD/TT: Granite Polisher: UZMA HealthcareRadiology Study observation (narrative)[facility] HealthcareRF videography Hypopharynx and Esophagus Views for swallowing function W speech and W barium contrast POOrdered By: Radiologist Radiology on 55-77-8740[facility] Work Phone: Office Visiton 17-30-1599Pryzbq-up [id number] Giovanna Baum 1940 F Date Provider Department [facility] Family History Problem Relation Age of Onset No Known Problems Mother No Known Problems Father Family Status - Relation Status Age at Mother Father Level of Service:96375 [place] OFFICE/OUTPATIENT ESTABLISHED LOW MDM 20-29 [facility] CampusFUCOMMUNITY HEALTH AB QUANTITAIVE DOUBLE IMMUNODIFFUon 15-05-4604Sdejvvmfigd flavusNegativeNormalNeg:<1:1The Premier HealthComment on above:Performed By: #### FUNGUYI #### [facility] [address] [place] [address] Dr. Milena RosaAsphugoillus fumigatusNegativeNormalNeg:<1:1[facility] Comment on above:Performed By: #### FUNGUYI #### [facility] [address] [place] [address] Dr. Milena RosaAspergillus nigerNegativeNormalNeg:<1:1[facility] Comment on above:Performed By: #### FUNGUYI #### [facility] [address] [place] [address] [address] Milena RosaBlastomycesNegativeNormalNeg:<1:1The Premier HealthComment on above:Performed By: #### FUNGUYI #### [facility] [address] [place] [address] [address] Milena RosaHISTOPLASMA GALACTOMANNAN AG URINEon 38-33-3469Nwkxtnveghh Gal'rosales Ag<0.5Normal<0.5 ng/mLThe Upper Jay HospitalComment on above:Performed By: #### HISTGAL ####[facility] [address] [place] [address]DrElia Abbott ChangCOCCIDIODES IGG/IGM AB BY IFAon 25-36-5909Bbkowtpnndc Ab, IgG EIA0.1 [facility] HospitalComment on above:Result Comment: Negative <1.0 Indeterminate 1.0-1.4 Positive >1.4Performed By: #### COCCABS #### [facility] [address] [address] [address] Milena RosaCoccidiodes Ab, IgM, EIA0.0 [facility] Comment on above:Result Comment: Negative <1.0 Indeterminate 1.0-1.4 Positive >1.4Performed By: #### COCCABS #### [facility] [address] [place] [address] [address] Milena RosaHISTOPLASMA CAP AB QUANT DIDon 84-75-6467Kzssqvkotfl Mycelial CF Ab.NegativeNormalNeg:<1:2[facility] Medical CenterComment on above:Performed By: #### HISTDID ####[facility] [address] [place] [address]DrElia RosaHistoplasma Yeast CF AbNegativeNormalNeg:<1:2The [facility] HealthCombaraga county memorial hospital on above:Performed By: #### HISTDID ####[facility] [address] [place] [address]DrElia Sims Visiton 61-85-0665Ldterq-up [id number] Giovanna Baum 1940 F Date Provider Department Center 07/26/2022 JEMAL RICHARDS [facility] Family History Problem Relation Age of Onset No Known Problems Mother No Known Problems Father Family Status - Relation Status Age at Mother Father Level of Service:71945 [place] OFFICE/OUTPATIENT ESTABLISHED MOD MDM 30-39 MIN Reason for Visit and Comments: Follow-up [125399] - 6 weeks- Go over Holter monitor results- Discuss medicationsNormalUniversity of Wells Medical CenterCT CHEST WO CONon 07-19-2022 CT CHEST WO CONEXAMINATION: CT CHEST WO CON HISTORY: Chronic cough , shortness [...] Electronically authenticated by: WILLIAM BERMEO Date: 2022-07-19 14:55[facility] HospitalOffice Visiton 42-49-2353Bksniu-up [id number] Giovanna Baum 1940 F Date Provider Department Center 06/07/2022 3848-JEMAL MEDEIROS [facility] Family History Problem Relation Age of Onset No Known Problems Mother No Known Problems Father Family Status - Relation Status Age at Mother Father Level of Service:88238 [place] OFFICE/OUTPATIENT ESTABLISHED MOD MDM 30-39 MIN Reason for Visit and Comments: Post-Cath [731]NormalThe University of Toledo Medical CenterCB AUTO DIFFon 09-91-3734YFQQ #0.0 103/ulNormal0.0-0.1The [facility] HealthComment on above: Performed By: #### CBC #### [facility] [address] [place] [address] Dr. Milena RosaBasophils/100 WBC (Bld)0.3 %Normal0.2-2.0[facility] Comment on above:Performed By: #### CBC #### [facility] [address] [place] [address] Dr. Milena Munoz #0.2 103/ulNormal0.0-0.7The Premier HealthComment on above: Performed By: #### CBC #### [facility] [address] [place] [address] Dr. Milena Rootosinophils/100 WBC (Bld)2.8 %Normal0.9-7.0[facility] Comment on above:Performed By: #### CBC #### [facility] [address] [place] [address] Dr. Milena Rootrythrocyte distribution width (RBC) [Ratio]13.3 %Tecwhl91.0-15.0 The Premier HealthComment on above:Performed By: #### CBC #### [facility] [address] [place] [address] Dr. Milena RosaHematocrit (Bld) [Volume fraction]38.5 %Fslkne07.0-48.0The Premier HealthComment on above:Performed By: #### CBC #### [facility] [address] [place] [address] Dr. Milena RosaHemoglobin (Bld) [Mass/Vol]12.6 g/uNJylywn96.0-16.0The Premier HealthComment on above:Performed By: #### CBC #### [facility] [address] [place] [address] Dr. Milena Lugo #0.02 10e3/ulNormal0.00-0.03The Premier HealthComment on above:Performed By: #### CBC #### [facility] [address] [place] [address] Dr. Milena Lugo %0.3 %Normal0.0-0.5The [facility] HealthComment on above: Performed By: #### CBC #### [facility] [address] [place] [address] Dr. Milena Ordaz #2.5 103/ulNormal1.2-3.8The [facility] HealthComment on above:Performed By: #### CBC #### [facility] [address] [place] [address] Dr. Milena Velezhocytes/100 WBC (Bld)37.6 %Hqdlej15.5-60.0The [facility] HealthComment on above:Performed By: #### CBC #### [facility] [address] [place] [address] Dr. Milena Suarez DIFF REQNONormalThe Premier HealthComment on above: Performed By: #### CBC #### [facility] [address] [place] [address] Dr. Milena Gipson (RBC) [Entitic mass]29.8 rbRppwsn50.7-34.0The [facility] HealthComment on above:Performed By: #### CBC #### [facility] [address] [place] [address] Dr. Milena Gipson (RBC) [Mass/Vol]32.7 g/tNLgdrti36.9-35.2The [facility] HealthComment on above:Performed By: #### CBC #### [facility] [address] [place] [address] Dr. Milena Gipson (RBC) [Entitic vol]91.0 dUVseyjn95.0-99.0The [facility] HealthCombaraga county memorial hospital on above:Performed By: #### CBC #### [facility] [address] [place] [address] Dr. Milena Albert #0.7 103/ulNormal0.3-0.8The [facility] HealthComment on above:Performed By: #### CBC #### [facility] [address] [place] [address] Dr. Milena Dialloocytes/100 WBC (Bld)10.0 %Normal1.7-12.0[facility] Comment on above:Performed By: #### CBC #### [facility] [address] [place] [address] Dr. Milena PelaezUT #3.3 103/ulNormal1.4-6.5The [facility] HealthComment on above:Performed By: #### CBC #### [facility] [address] [place] [address] Dr. Milena Pelaezutrophils/100 WBC (Bld)49.0 %Osyvzb55.0-75.0The [facility] HealthComment on above:Performed By: #### CBC #### [facility] [address] [place] [address] Dr. Milena Vogellet mean volume (Bld) [Entitic vol]11.5 fLNormal9.5-13.5The [facility] HealthComment on above:Performed By: #### CBC #### [facility] [address] [place] [address] Dr. Milena RosaPLT201 103/zyQijmrb415-754Thn Premier HealthComment on above: Performed By: #### CBC #### [facility] [address] [place] [address] Dr. Milena RosaRBC4.23 106/ulNormal4.20-5.40The Premier HealthComment on above:Performed By: #### CBC #### [facility] [address] [place] [address] Dr. Milena RosaWBC6.7 103/ulNormal4.0-11.0The Premier HealthComment on above: Performed By: #### CBC #### [facility] [address] [place] [address] Dr. Milena Hodgesvid-19 PCR (CVDTB)on 03-37-6123CMRH-CoV-2 (COVID-19) RNA RADHA+probe Ql (Unsp spec)Not detectedNormalNOT DETECTEDThe [facility] Comment on above:Result Comment: This test is not yet approved or cleared by the [place] FDA. When there are no FDA-approved or cleared tests available, and other criteria are met, FDA can make tests available under an emergency access mechanism called an Emergency Use Authorization (EUA). The EUA for this test is supported by the [employer] Boiler of Health and Human Service's (HHS's) declaration that circumstances exist to justify the emergency use of in vitro diagnostics for the detection and/or diagnosis of the virus that causes COVID- 19. This EUA will remain in effect (meaning [...] of clinical signs and symptoms consistent with SARS-CoV-2.Performed By: #### CVDTB ####[facility] [address] [place] [address]Dr. Milena RosaPROF CHEM 8 (BAS METB)on 30-39-2503Nmrmu gap [Moles/Vol]13.1 mmol/LNormalAdena Regional Medical CenterComment on above:Performed By: #### BMP #### [facility] [address] [place] [address] Dr. Milena RosaCalcium [Mass/Vol]9.8 mg/dLNormal8.5-10.1[facility] Comment on above:Performed By: #### BMP #### [facility] [address] [place] [address] Dr. Milena RosaChloride [Moles/Vol]103 mmol/XNlkpuf46-121SlaAdena Regional Medical Center Comment on above:Performed By: #### BMP #### [facility] [address] [place] [address] Dr. Milena RosaCO2 [Moles/Vol]26.7 mmol/AQsozdo74.0-32.0[facility] Comment on above:Performed By: #### BMP #### [facility] [address] [place] [address] Dr. Milena RosaCreatinine [Mass/Vol]0.95 mg/dLNormal0.55-1.02The Premier HealthComment on above:Performed By: #### BMP #### [facility] [address] [place] [address] [address] Milena RootGFR-AF SOUTH AFRICAN>60Normal>=60The Premier HealthComment on above:Performed By: #### BMP #### [facility] [address] [address] [address] Milena RootGFR-NON AF ZNNIRYZG05 mL/min/1.65s8Qltbkkgshy low>=60The Premier HealthComment on above:Performed By: #### BMP #### [facility] [address] [place] [address] Dr. Milena RosaGlucose [Mass/Vol]93 mg/vFDxrbwo30-109Jza [facility] Comment on above:Performed By: #### BMP #### [facility] [address] [place] [address] Dr. Milena RosaPotassium [Moles/Vol]3.8 mmol/LNormal3.5-5.1The [facility] Comment on above:Performed By: #### BMP #### [facility] [address] [place] [address] Dr. Milena RosaSodium [Moles/Vol]139 mmol/OAarrlu571-311Nfr [facility] Comment on above:Performed By: #### BMP #### [facility] [address] [place] [address] Dr. Milena RosaUrea nitrogen [Mass/Vol]18.0 mg/dLNormal7.0-18.0The Premier HealthComment on above:Performed By: #### BMP #### [facility] [address] [place] [address] Dr. Milena Burnette nitrogen/Creatinine [Mass ratio]18.9 mg/mgNormalThe Premier HealthComment on above:Performed By: #### BMP #### [facility] [address] [place] [address] Dr. Milena Vides STRESS/REST MULTIon 90-89-9354VA STRESS/REST MULTIPatient: GIOVANNA BAUM Exam Date: 04/28/2022 : 1940 Gender:F Ordering : DR OVI MAURICIO D.O. Admission #: [id number] Family : Order #: [id number] CLICK HERE TO VIEW EXAM RADIOLOGY REPORT [...] was abnormal per attending physician Dr. Ramón Mauricio due to EKG changes. For more details [...] by: Gómez Ziegler MD on 04/28/2022 at 14:26[facility] AUTO DIFFon 14-49-8199UIDE #0.0 103/ulNormal0.0-0.1[facility] CenterComment on above:Performed By: #### CBC ####[facility] [address] [place], [place] [address]Wa.Yilan ChangBasophils/100 WBC (Bld)0.5 %Normal 0.2-2.0The Premier HealthComment on above:Performed By: #### CBC ####[facility] [address] [place] [address]Dr.Yilan ChangEO # 0.1 103/ulNormal0.0-0.7The Premier HealthComment on above:Performed By: #### CBC ####[facility] [address] [place], [place] [address]Dr. Yilan ChangEosinophils/100 WBC (Bld)1.9 %Normal0.9-7.0[facility] Comment on above:Performed By: #### CBC ####[facility] [address] [place], [place] [address]Dr.Kimberleylan ChangErythrocyte distribution width (RBC) [Ratio]14.3 %Vxqpwc88.0-15.0The [facility] HealthComment on above: Performed By: #### CBC ####[facility] [address] [place], [place] [address]Dr.Kimberleylan ChangHematocrit (Bld) [Volume fraction]37.6 % Hofjxf50.0-48.0The [facility] HealthComment on above:Performed By: #### CBC ####[facility] [address] [place], [place] [address]Dr. Kimberleylan ChangHemoglobin (Bld) [Mass/Vol]12.6 g/lQBwllfc49.0-16.0The Premier HealthComment on above:Performed By: #### CBC ####[facility] [address] [place], [place] [address]Dr.Yilan ChangIG #0.02 10e3/ulNormal0.00-0.03The Premier HealthComment on above:Performed By: #### CBC ####[facility] [address] [place], [place] [address]Dr. Yilan ChangIG %0.3 %Normal0.0-0.5The Premier HealthComment on above:Performed By: #### CBC ####[facility] [address] [place] [address]Dr.Milena ChangLYMPH #2.1 103/ulNormal1.2-3.8[facility] Comment on above:Performed By: #### CBC ####[facility] [address] [place] [address]Dr.Milena RosaLymphocytes/100 WBC (Bld)33.2 %Yekhxe23.5-60.0The Premier HealthComment on above:Performed By: #### CBC ####[facility] [address] [place] [address]Dr. Milena ChangMANUAL DIFF REQNONormalThe Premier HealthComment on above: Performed By: #### CBC ####[facility] [address] [place], [place] [address]Dr.Milena RosaMCH (RBC) [Entitic mass]30.9 pgNormal 26.7-34.0The Premier HealthComment on above:Performed By: #### CBC ####[facility] [address] [place], [place] [address]Dr. Milena RosaMCHC (RBC) [Mass/Vol]33.5 g/zDYeoffy93.9-35.2[facility] Comment on above:Performed By: #### CBC ####[facility] Lvdeqfr[address] [place], [place] [address]Dr.Milena RosaMCV (RBC) [Entitic vol]92.2 fL Zwocmj69.0-99.0The Premier HealthComment on above:Performed By: #### CBC ####[facility] [address] [place] [address]Dr. Milena RosaMONO #0.6 103/ulNormal0.3-0.8The Premier HealthComment on above: Performed By: #### CBC ####[facility] [address] [place], [place] [address]Dr.Kimberleylan ChangMonocytes/100 WBC (Bld)8.9 %Normal 1.7-12.0The [facility] HospitalComment on above:Performed By: #### CBC ####[facility] [address] [place] [address]Dr. Milena RosaNEUT #3.5 103/ulNormal1.4-6.5The [facility] HospitalComment on above: Performed By: #### CBC ####[facility] [address] [place] [address]Dr.Milena RosaNeutrophils/100 WBC (Bld)55.2 %Normal 43.0-75.0The [facility] HospitalComment on above:Performed By: #### CBC ####[facility] [address] [place] [address]Dr. Milena RosaPlatelet mean volume (Bld) [Entitic vol]11.6 fLNormal9.5-13.5The [facility] HospitalComment on above:Performed By: #### CBC ####[facility] [address] [place] [address]Dr.Milena TlgjnELE222 103/ul Fyhhct083-750Ekp [facility] HospitalComment on above:Performed By: #### CBC ####[facility] [address] [place] [address]Dr. Milena ChangRBC4.08 106/ulCritically low4.20-5.40The [facility] HospitalComment on above:Performed By: #### CBC ####[facility] [address] [place] [address]Dr.Milena ChangWBC6.3 103/ulNormal4.0-11.0The [facility] HospitalComment on above:Performed By: #### CBC ####[facility] [address] [place], [place] [address]Dr.Yilan ChangECHOCARDIO M/2D COMPLETEon 13-54-2849ARVYFYBSPU M/2D COMPLETEPatient: GIOVANNA BAUMElia Exam Date: 02/27/2022 : 1940 Gender:F Ordering : DR OVI MAURICIO D.O. Admission #: [id number] Family : Order #: [id number] CLICK HERE TO VIEW EXAM ECHOCARDIOGRAM REPORT [...] by: Carlito Christie M.D. on 03/01/2022 at 11:53[facility] HospitalPROF CHEM 8 (BAS METB)on 18-94-7758Hkldh gap [Moles/Vol]6.1 mmol/LNormal The Premier HealthComment on above:Performed By: #### BMP, TSH #### [facility] [address] [place] [address] Dr. Milena RosaCalcium [Mass/Vol]9.0 mg/dLNormal8.5-10.1[facility] Comment on above:Performed By: #### BMP, TSH #### [facility] [address] [place] [address] [address] Milena RosaChloride [Moles/Vol]103 mmol/IGcuosc48-659KccAdena [facility] Comment on above:Performed By: #### BMP, TSH #### [facility] [address] [address] [address] Milena oRsaCO2 [Moles/Vol]34.4 mmol/LCritically high21.0-32.0The [facility] HospitalComment on above:Performed By: #### BMP, TSH #### [facility] [address] [address] [address] Milena RosaCreatinine [Mass/Vol]1.21 mg/dLCritically high0.55-1.02The Premier HealthComment on above:Performed By: #### BMP, TSH #### [facility] [address] [place] [address] [address] Milena RootGFR-AF EVELRFEM51 mL/min/1.25g4Fbarbbisvf low>=60The Premier HealthComment on above:Performed By: #### BMP, TSH #### [facility] [address] [address] [address] Milena RootGFR-NON AF ANKVUTUR05 mL/min/1.63d4Qxvxcosatn low>=60The Premier HealthComment on above:Performed By: #### BMP, TSH #### [facility] [address] [place] [address] Dr. Milena RosaGlucose [Mass/Vol]101 mg/pGCmeyxr32-948Rfn [facility] Comment on above:Performed By: #### BMP, TSH #### [facility] [address] [place] [address] Dr. Milena RosaPotassium [Moles/Vol]3.5 mmol/LNormal3.5-5.1[facility] Comment on above:Performed By: #### BMP, TSH #### [facility] [address] [place] [address] Dr. Milena Aldridgedium [Moles/Vol]140 mmol/HPhrebm821-225Toa [facility] Comment on above:Performed By: #### BMP, TSH #### [facility] [address] [place] [address] Dr. Milena RosaUrea nitrogen [Mass/Vol]20.0 mg/dLCritically high7.0-18.0The Premier HealthComment on above:Performed By: #### BMP, TSH #### [facility] [address] [place] [address] Dr. Yilan ChangUrea nitrogen/Creatinine [Mass ratio]16.5 mg/mgNoKettering HealthComment on above:Performed By: #### BMP, TSH #### [facility] [address] [place], [place] [address] Dr. Milena RosaIRWINHoreji 83-10-5705ZHX7.640 uIU/mLNormal0.358-3.740The Premier HealthComment on above:Performed By: #### BMP, TSH #### [facility] [address] [place], [place] [address] Dr. Milena RosaXR CHEST 2 Von 61-90-0791AJ CHEST 2 VEXAM: XR CHEST 2 V HISTORY: Dyspnea for [...] Electronically authenticated by: WHITNEY FOURNIER Date: 2022-02-27 13:49[facility] WO CONon 65-27-5266FJH LSPINE WO CONEXAMINATION: MRI [facility] CON HISTORY: Lumbar spondylosis ; chronic [...] Electronically authenticated by: WILLIAM BERMEO Date: 2022-01-09 16:[address] [place], [place] [address]XR hand BI 3Von 84-51-1735JE hand BI 3[facility] Main [place] [address] [place] [address] XRay Report Signed Patient: Giovanna Baum MR#: [id number] : 1940 Acct:[id number] Age/Sex: 81 / F ADM Date: 12/21/21 Loc: [facility] Room: Type: [facility] Attending Dr: Brina Morrissey MD Copies to: [...] Caal Jr., D.O.12/21/2021 2:31 PM Dictation Location: [place] [address] Transcribed By: [facility] 12/21/21 1431 Dictated By: Erasmo Caal Jr, DO 12/21/21 1427 Signed By: 12/21/21 1431[facility]CB AUTO DIFFon 09-14-2021 BASO #0.0 103/ulNormal0.0-0.1The Premier HealthComment on above:Performed By: #### CBC #### [facility] [address] [address] [address] Milena RosaBasophils/100 WBC (Bld)0.2 %Normal0.2-2.0[facility] Comment on above:Performed By: #### CBC #### [facility] [address] [place] [address] [address] Milena Munoz #0.1 103/ulNormal0.0-0.7The Premier HealthComment on above: Performed By: #### CBC #### [facility] [address] [address] [address] Milena Rootosinophils/100 WBC (Bld)2.8 %Normal0.9-7.0[facility] Comment on above:Performed By: #### CBC #### [facility] [address] [address] [address] Milena Rootrythrocyte distribution width (RBC) [Ratio]13.4 %Elrygh69.0-15.0 The Premier HealthComment on above:Performed By: #### CBC #### [facility] [address] [address] [address] Milena Johnatocrit (Bld) [Volume fraction]38.2 %Ewnaxl82.0-48.0The Premier HealthComment on above:Performed By: #### CBC #### [facility] [address] [place] [address] Dr. Milena RosaHemoglobin (Bld) [Mass/Vol]12.5 g/tIBggezi67.0-16.0The Premier HealthComment on above:Performed By: #### CBC #### [facility] [address] [place] [address] Dr. Milena Lugo #0.02 10e3/ulNormal0.00-0.03The [facility] on above:Performed By: #### CBC #### [facility] [address] [place] [address] Dr. Milena Lugo %0.4 %Normal0.0-0.5The Premier HealthComment on above: Performed By: #### CBC #### [facility] [address] [place] [address] Dr. Milena Ordaz #2.1 103/ulNormal1.2-3.8The [facility] on above:Performed By: #### CBC #### [facility] [address] [place] [address] Dr. Milena Morganmphocytes/100 WBC (Bld)40.5 %Lrzgyd47.5-60.0The [facility] on above:Performed By: #### CBC #### [facility] [address] [place] [address] Dr. Milena RosaMANUAL DIFF REQNONormalThe Premier HealthComment on above: Performed By: #### CBC #### [facility] [address] [place] [address] Dr. Milena Burnett (RBC) [Entitic mass]29.7 uuDqoers53.7-34.0The Premier HealthComment on above:Performed By: #### CBC #### [facility] [address] [place] [address] [address] Milena GipsonHC (RBC) [Mass/Vol]32.7 g/cLEnevkv96.9-35.2The Premier HealthComment on above:Performed By: #### CBC #### [facility] [address] [place] [address] Dr. Milena GipsonV (RBC) [Entitic vol]90.7 nSLjnldy91.0-99.0The Premier HealthComment on above:Performed By: #### CBC #### [facility] [address] [place] [address] Dr. Milena Albert #0.6 103/ulNormal0.3-0.8The Premier HealthComment on above:Performed By: #### CBC #### [facility] [address] [place] [address] Dr. Milena Dialloocytes/100 WBC (Bld)12.0 %Normal1.7-12.0[facility] Comment on above:Performed By: #### CBC #### [facility] [address] [place] [address] Dr. Milena Schmidt #2.3 103/ulNormal1.4-6.5The Premier HealthComment on above:Performed By: #### CBC #### [facility] [address] [place] [address] Dr. Milena Pelaezutrophils/100 WBC (Bld)44.1 %Fidwsy87.0-75.0The Premier HealthComment on above:Performed By: #### CBC #### [facility] [address] [place] [address] Dr. Milena Vogellet mean volume (Bld) [Entitic vol]11.7 fLNormal9.5-13.5The Premier HealthComment on above:Performed By: #### CBC #### [facility] [address] [place] [address] Dr. Milena RosaPLT206 103/ogTdsaie586-789Wre Premier HealthComment on above: Performed By: #### CBC #### [facility] [address] [place], [place] [address] Dr. Milena RosaRBC4.21 106/ulNormal4.20-5.40The Premier HealthComment on above:Performed By: #### CBC #### [facility] [address] [place], [place] [address] Dr. Milena RosaWBC5.1 103/ulNormal4.0-11.0The Premier HealthComment on above: Performed By: #### CBC #### [facility] [address] [id number] Milena RosaMG MAMM SCREEN 3D SHERICE CADon 15-84-3798EV MAMM SCREEN 3D SHERICE CAD Patient: GIOVANNA BAUM Exam Date: 09/14/2021 : 1940 Gender:F Ordering : DR OVI MAURICIO D.O. Admission #: [id number] Family : Order #: [id number] CLICK HERE TO VIEW EXAM RADIOLOGY REPORT [...] Treatments None Family Cancers None LOCATION: [facility] BREAST COMPOSITION: Scattered areas fibroglandular density. FINDINGS: [...] by: Gómez Ziegler MD on 09/14/2021 at 10:42[facility] HospitalPROF CHEM 8 (BAS METB)on 20-85-0396Etqff gap [Moles/Vol]10.5 mmol/LNormalThe Premier HealthComment on above:Performed By: #### BMP #### [facility] [address] [place] [address] [address] Milena RosaCalcium [Mass/Vol]9.5 mg/dLNormal8.5-10.1[facility] Comment on above:Performed By: #### BMP #### [facility] [address] [place] [address] [address] Milena RosaChloride [Moles/Vol]101 mmol/ZQyjlog47-999Rpq [facility] Comment on above:Performed By: #### BMP #### [facility] [address] [place] [address] [address] Milena RosaCO2 [Moles/Vol]31.1 mmol/LWjpubu62.0-32.0[facility] Comment on above:Performed By: #### BMP #### [facility] [address] [place] [address] [address] Milena RosaCreatinine [Mass/Vol]1.01 mg/dLNormal0.55-1.02[facility] CenterComment on above:Performed By: #### BMP #### [facility] [address] [place] [address] [address] Milena RootGFR-AF SOUTH AFRICAN>60Normal>=60The Premier HealthComment on above:Performed By: #### BMP #### [facility] [address] [address] [address] Milena RootGFR-NON AF SPBAVFHM98 mL/min/1.80v1Gyczcavqrj low>=60The Premier HealthComment on above:Performed By: #### BMP #### [facility] [address] [address] [address] Milena RosaGlucose [Mass/Vol]96 mg/jJDqtagk17-475DxpAdena [facility] Center Comment on above:Performed By: #### BMP #### [facility] [address] [place] [address] [address] Milena RosaPotassium [Moles/Vol]3.6 mmol/LNormal3.5-5.1[facility] Comment on above:Performed By: #### BMP #### [facility] [address] [place] [address] [address] Milena Aldridgedium [Moles/Vol]139 mmol/LGqoyvo451-719Byi [facility] Comment on above:Performed By: #### BMP #### [facility] [address] [place] [address] [address] Milena RosaUrea nitrogen [Mass/Vol]20.0 mg/dLCritically high7.0-18.0[facility] CenterComment on above:Performed By: #### BMP #### [facility] [address] [place] [address] [address] Milena Burnette nitrogen/Creatinine [Mass ratio]19.8 mg/mgNormalThe Premier HealthComment on above:Performed By: #### BMP #### [facility] [address] [place] [address] [address] Milena RosaCoortega Summary.on 16-13-9955Gajhoa Summary.CODING DATE: 12/26/2017 FINAL [facility] STATUS: Home (Routine DC) PAYOR: Medicare APC DESCRIPTION 5481 Laser Eye Procedures ADMIT DX: REASON FOR VISIT DX: H26.492 Other secondary cataract, left eye FINAL DX: PRINCIPAL: H26.492 Other secondary cataract, left eye SECONDARY: PYMT PROC APC STAT DESCRIPTION DOCTOR NAME DATE 20357 5481 T Discission of secondary Quinn Armendariz DO 12/25/2017 membranous cataract (opacified posterior lens capsule and/or anterior hyaloid); lasersurgery (eg, YAG laser) (1 or more stages) [...] Isha Eddy Revised Date Saved: 12/26/2017 11:03 amNThe Surgical Hospital at SouthwoodsCoding Summary.on 90-79-5035Lvgghg Summary.CODING DATE: 12/19/2017 FINAL [facility] STATUS: Home (Routine DC) PAYOR: Me phan APC DESCRIPTION 5481 Laser Eye Procedures ADMIT [...] matches the documented diagnosis and / or procedurein the patient's chart. However, the narrative phrase printed from the coding software may appear abbreviated, or result in slightly different terminology. Coded By: Shilpa Perez Date Saved: 12/19/2017 09:21 [facility] Vital Signs Date TimeVital SignValuePerforming YujmpipkmZecnrjcj25-19-6595 10:37-0400Body cpofrv957.86 cmBenjamin Ball DO Work Phone: [phone]10-22-2025 10:37-0400 Body mass index (BMI) [Ratio]31.7 kg/p5Izlfckfw Ball DO Work Phone: [phone]10-22-2025 10:37-0400 Body ewsdop22.21 kgBenjamin Ball DO Work Phone: [phone] [place], [place] 1808310-22-2025 10:37-0400 Diastolic blood uxzroyjk75 mm[Hg]Ovi Ball DO Work Phone: [phone] [place], [place] 1808310-22-2025 10:37-0400 Heart rate67 /minBenjamin Ball DO Work Phone: [phone] [place], [place] 1808310-22-2025 10:37-0400 Respiratory rate20 /minBenjamin Ball DO Work Phone: [phone]10-22-2025 10:37-0400 SaO2% (BldA) [Mass fraction]97 %Ovi Ball DO Work Phone: [phone] [place], [place] 3413410-22-2025 10:37-0400 Systolic blood mm[Hg]Ovi Ball DO Work Phone: [phone] [place], [place] 3413408-11-2025 09:55-0400 Body orfkfs880.86 cmBenjamin Ball DO Work Phone: [phone] [place], [place] 3413408-11-2025 09:55-0400 Body mass index (BMI) [Ratio]32.1 kg/v3Zpladbmi Ball DO Work Phone: [phone] [place], [place] 3413408-11-2025 09:55-0400 Body dxwgte84.23 kgBenjamin Ball DO Work Phone: [phone] [place], [place] 3413408-11-2025 09:55-0400 Diastolic blood lsndjucf64 mm[Hg]Ovi Ball DO Work Phone: [phone] [place], [place] 3413408-11-2025 09:55-0400 Heart rate58 /minBenjamin Ball DO Work Phone: [phone] [place], [place] 3413408-11-2025 09:55-0400 Respiratory rate12 /minBenjamin Ball DO Work Phone: [phone] [place], [place] 3413408-11-2025 09:55-0400 SaO2% (BldA) [Mass fraction]96 %Ovi Ball DO Work Phone: [phone] [place], [place] 3413408-11-2025 09:55-0400 Systolic blood sypbdgpm899 mm[Hg]Ovi Ball DO Work Phone: [phone] [place], [place] 3413407-28-2025 12:46-0400 Body ozmido561.86 cmBenjamin Ball DO Work Phone: [phone] [place], [place] 3413407-28-2025 12:46-0400 Body mass index (BMI) [Ratio]31.3 kg/x9Inipvfjr Ball DO Work Phone: [phone] [place], [place] 3413407-28-2025 12:46-0400 Body usvvvk98.3 kgBenjamin Ball DO Work Phone: [facility]07-28-2025 12:46-0400 Diastolic blood bwfmrorr93 mm[Hg]Ovi Ball DO Work Phone: [facility]07-28-2025 12:46-0400 Heart rate75 /minBenligia Ball DO Work Phone: [facility]07-28-2025 12:46-0400 Systolic blood czyazdcc367 mm[Hg]Ovi Ball DO Work Phone: [facility]04-28-2025 09:56-0400 Body rlkoaz694.13 cmChildren'S [facility]04-28-2025 09:56-0400Body mass index (BMI) [Ratio]30.7 kg/m9VrpghpdwaChildren'S Hospital Of Columbus04-28-2025 09:56-0400Body .02 kgChildren'S Hospital Of [facility]04-28-2025 09:56-0400Diastolic blood fuabcjwn43 mm[Hg][facility] 08-25-2024 09:56-0400Heart rate64 /[facility] 08-25-2024 09:56-0400Respiratory rate12 /[facility] 08-25-2024 09:56-7320VpP6% (BldA) [Mass fraction]97 %[facility]04-28-2025 09:56-0400Systolic blood mm[Hg][facility]12-16-2024 14:22-0500Body .9 An Yang LEGAL TRANSCRIPTIONIST Work Phone: DSC TradingUniversity HospitalYrfimzicyw71-51-4780 14:22-0500Body mass index (BMI) [Ratio]31.71 kg/u3DwzxhnBrigitte Yang LEGAL TRANSCRIPTIONIST Work Phone: noUniversity HospitalEdkzgvcsbi84-39-3961 14:22-0500Body qaftpo36.22 kgBrigitte Yang LEGAL TRANSCRIPTIONIST Work Phone: noUniversity HospitalTqmvdzcvuk67-86-9821 14:22-0500Diastolic blood ellfigvz03 mm[Hg]Brigitte Yang LEGAL TRANSCRIPTIONIST Work Phone: [facility] HospitalGtxymadbqn29-10-2110 14:22-0500Heart rate61 /min Brigitte Yang LEGAL TRANSCRIPTIONIST Work Phone: [facility] HospitalNvjumujied16-56-5412 14:22-6311UpY4% (BldA) [Mass fraction]97 %Brigitte Yang LEGAL TRANSCRIPTIONIST Work Phone: [facility] HospitalSpwtsuccvg67-66-8127 14:22-0500Systolic blood xoildguj76 mm[Hg]Brigitte Yang LEGAL TRANSCRIPTIONIST Work Phone: [facility] HospitalZtiadjaggc68-13-7999 10:07-0500Body .13 cmChildren[facility]11-18-2024 10:07-0500Body mass index (BMI) [Ratio]30.5 kg/z6MsejiffuzChildren'S Hospital Of [facility]11-18-2024 10:07-0500Body fyzjkw21.85 kgChildren'S Hospital Of [facility]11-18-2024 10:07-0500Diastolic blood ozenjxif21 mm[Hg][facility]11-18-2024 10:07-0500 Heart rate61 /[facility]11-18-2024 10:07-5822ZqD7% (BldA) [Mass fraction]97 %[facility]11-18-2024 10:07-0500 Systolic blood ogiabmgk362 mm[Hg][facility]10-28-2024 10:08-0400Body muyciz964.13 cmChildren'S [facility]10-28-2024 10:08-0400Body mass index (BMI) [Ratio]30.4 kg/v3IxlmszhrvChildren'S Hospital Of [facility]10-28-2024 10:08-0400Body qijrqy47.39 kgChildren'[facility] 02-25-2024 10:08-0400Diastolic blood mm[Hg][facility]10-28-2024 10:08-0400Heart rate61 /[facility] 02-25-2024 10:08-0400Respiratory rate12 /[facility] 02-25-2024 10:08-0400Systolic blood mm[Hg][facility]03-22-2024 09:05-0400Body .13 cmChildren[facility]03-22-2024 09:05-0400Body mass index (BMI) [Ratio]29.8 kg/n7HxavrnsceChildren'S Hospital Of [facility]03-22-2024 09:05-0400Body fxwefm35.2 kgChildren'S Hospital Of [facility]03-22-2024 09:05-0400Diastolic blood zryyktlg61 mm[Hg][facility]03-22-2024 09:05-0400Heart rate62 /[facility]03-22-2024 09:05-0400Respiratory rate12 /[facility]03-22-2024 09:05-0400Systolic blood nosmilvd900 mm[Hg][facility]10-24-2023 16:00-0400Body heightBenjamin Ball Other [facility] [employer] Other 211951-47-1353 16:00-0400Body mass index (BMI) [Ratio] 30.44 kg/n6Lmmqeyuv Ball Other [facility] [employer] Other 10-24-2023 16:00-0400Body sgkeol26.54 kgBenjamin Ball Other [facility] [employer] Other 10-24-2023 16:00-0400Diastolic blood oamxfvlx21 mm[Hg] Ovi Ball Other [facility] [employer] Other 10-24-2023 16:00-0400Respiratory rate12 /minBenjamin Ball Other [facility] [employer] Other 10-24-2023 16:00-0400Systolic blood eunmfesr062 mm[Hg] Ovi Ball Other [employer] Other 03-20-2023 16:30-0400Body heightBenjamin Ball Other [employer] Other 03-20-2023 16:30-0400Body mass index (BMI) [Ratio] 31.33 kg/e1Bfyjiovx Ball Other [employer] Other 03-20-2023 16:30-0400Body ghcpuq13.58 kgBenjamin Ball Other [employer] Other 03-20-2023 16:30-0400Diastolic blood yohbtwkk62 mm[Hg] Ovi Ball Other [employer] Other 03-20-2023 16:30-0400Respiratory rate12 /minBenjamin Ball Other [employer] Other 03-20-2023 16:30-0400Systolic blood mm[Hg] Ovi Ball Other [employer] Other 08-24-2022 11:00-0400Body heightCollyg Morrissey Other [employer] Other Encounters Encounter DateEncounter TypeCare ProviderFacilityStart: 02-18-2025 End: 32-24-1635wjjxbyvijuDjduxkxj Ball DO Work Phone: [phone]-Qxlgrmscj [facility] PulmonaryStart: 02-18-2025 End: 00-78-7928Dwwhcha encounter procedureAlina Aguilar APRN [facility] Work Phone: Start: 01-21-2025 End: 97-63-6546ztmamyqsbdMpeghdmk Ball DO Work Phone: [facility] Work Phone: Start: 01-21-2025 End: 32-69-2856Vwstkxm encounter procedureBrina Morrissey MD-[facility] Work Phone: Start: 12-22-2024 End: 82-63-5074kawkndduhkWgjzmogMami Guy MDFacility:[facility] Start: 12-08-2024 End: 74-99-8534naszjfloosJmxqrehs Ball DO Work Phone: [facility] Work Phone: Start: 12-08-2024 End: 76-88-9998Vqkcwjn encounter procedureBenjamin Ball DO-[facility] Work Phone: Start: 18-91-0355Hme-patient / Non-visitBenjamin Ball DO-[facility] Work Phone: Start: 11-24-2024 End: 36-31-2803lkoxsylixuCjdwdycq Ball DO Work Phone: [facility] Work Phone: Start: 11-24-2024 End: 51-43-3031Kzhhxbq encounter procedureBrigitte Morris APRN-[facility] Work Phone: Start: 11-06-2024 End: 71-34-6813PwexluSweujnc C Windnagel LEGAL TRANSCRIPTIONIST Other Phone: aNA BELLEVUEComment on above:Cerebral infarction, left hemisphere (HCC)Start: 70-56-9784Ohe-patient / Non-visitBenjamin Ball DO- [facility] Work Phone: Start: 22-37-2842Quz-patient / Non-visitBenjamin Ball DO-[facility] Work Phone: Start: 09-08-2024 End: 20-34-3491jrmtrdljvyPwyknjlGood Guy MDFacility:[facility] Start: 71-52-8155Usf-patient / Non-visitBenjamin Ball DO-[facility] Work Phone: Start: 09-02-2024 End: 86-74-5704exqceepqiiPtzduznosPremier Health [facility] Work Phone: Start: 09-02-2024 End: 76-82-4987Jjatfgq encounter procedureFircarilion clinic Physician [facility][Note 3] Orthopedics Work Phone: Start: 08-25-2024 End: 64-00-7656qaksktmlbpMlwsbblsuPremier Health [facility] Work Phone: Start: 08-25-2024 End: 48-60-2087Qjtnlwy encounter procedureFaizan Physician [facility] Work Phone: Start: 05-06-2024 End: 54-42-4562eadrvmmkerRkdlmiphhPremier Health [facility] Work Phone: Start: 05-06-2024 End: 18-58-1007Eywntvz encounter procedureFircarilion clinic Physician [facility][Note 3] Orthopedics Work Phone: Start: 04-14-2024 End: 19-62-8111Fnhddv outpatient visit 25 Joaquin Yang LEGAL TRANSCRIPTIONIST Work Phone: noms [place] [address] R[address]TEComment on above:Obstructive sleep apnea syndrome (Primary Dx); Cerebral infarction, left hemisphere (CMS/HCC); Hypoxia; Sleep deprivationStart: 04-14-2024 End: 41-23-2543xeqahozkupYYSNSH GILLMORNot AvailableStart: 04-14-2024 End: 08-81-2585Hghygp flowsFaustino Yang LEGAL TRANSCRIPTIONIST Work Phone: noms [address] R[address]TEStart: 04-14-2024 End: 42-81-8039Cmeytb flowsFaustino Yang LEGAL TRANSCRIPTIONIST Work Phone: noms [address] R[address]TEStart: 03-17-2024 End: 68-81-6095ajntfndflhTocgqwhitPremier Health [facility] Work Phone: Start: 03-17-2024 End: 14-60-5382Jrqgqrr encounter procedureSampson [facility] Work Phone: Start: 69-00-6687Wph-patient / Non-visitFirhiawathas Physician Group-[facility] Work Phone: Start: 52-77-6222Ybw-patient / Non-visitFirelands [facility] Work Phone: Start: 19-06-5678Wvu-patient / Non-visitFirelands [facility] Work Phone: Start: 10-32-6154Qaj-patient / Non-visitFirelands [facility] Work Phone: Start: 02-25-2024 End: 28-89-0491lkuntcjaueUrutrkrofPremier Health [facility] Work Phone: Start: 02-25-2024 End: 63-69-6733Cvnmhkd encounter procedureSampson [facility] Medical Center [facility] Work Phone: Start: 02-15-2024 End: 37-95-7860CjhspxJkdhceKash Rosa MD Work Phone: NOQW ENTComment on above:LPRD (laryngopharyngeal reflux disease)Start: 01-17-2024 End: 51-76-5137UnrnweEbjwzqahSUNY [facility] ROUTEComment on above: Cerebral infarction, left hemisphere (CMS/HCC) (Primary Dx)Start: 01-01-2024 End: 84-19-7912vveucjjswiAbzlajliiPremier Health [facility] Work Phone: Start: 01-01-2024 End: 66-74-1269Eciudba encounter procedureSampson Regional Medical Center [facility] Work Phone: Start: 21-06-2683Czg-patient / Non-visitLake Norman Regional Medical Centerelands [facility] Work Phone: Start: 10-08-2023 End: 95-40-3942gvlbevwxndDBEITE GILLMORNot AvailableStart: 09-26-2023 End: 48-98-7392ymmeboaeyiCHQNAB H TIMMISNot AvailableStart: 09-13-2023 End: 48-57-7042Hagqouhoz Result EncounterHilary Duran Rosa MD Work Phone: noms External Department UnsolicitedStart: 09-13-2023 End: 10-01-1498Cwlalsvxr Result EncounterHilary Duran Rosa MD Work Phone: noms External Department UnsolicitedStart: 08-15-2023 End: 82-80-9026udjtyxgwinVLHMIY H TIMMISNot AvailableStart: 07-20-2023 End: 07-78-9254djtovznygiSvqoljrzhRegional Medical Center Work Phone: Start: 07-20-2023 End: 96-09-7503Lquhffq encounter procedureAffinity Health Partnerss Physician [facility] Work Phone: Start: 07-04-2023 End: 69-45-2321Vwuqhbk encounter procedureSampson Regional Medical [facility] Work Phone: Start: 04-17-2023 End: 21-72-4845wiqnzikrwqVjmgjyuc Ball Other [employer] Other Start: 62-07-3647Faiuxxpty encounterBenjamin BallFPG [facility] ClinicStart: 03-13-2023 End: 71-67-9349tbqzcskjrmImnklfuc Ball Other [employer] Other Start: 08-24-1369Sbkihfriq encounterBenjamin BallFPG [facility] ClinicStart: 03-07-2023 End: 89-03-5431surzolorkjEjcngwzm Ball Other [employer] Other Start: 87-55-3842Ekscbngxd encounterBenjamin BallFPG [facility] ClinicStart: 03-01-2023 End: 33-45-8588todkemkmmtHdfdlgpl Ball Other [employer] Other Start: 62-10-5655Dzyhquyzi encounterBenjamin BallFPG [facility] ClinicStart: 02-28-2023 End: 58-64-6370gahqldkkbkIhdhidiv Ball Other [employer] Other Start: 65-95-6347Wgcoqigew encounterBenjamin BallFPG [facility] ClinicStart: 02-22-2023 End: 20-24-4408iuawcmyyjbReevvrnr Ball Other [employer] Other Start: 21-27-6715Wncaonzzh encounterBenjamin BallFPG [facility] ClinicStart: 02-21-2023 End: 35-98-7033anqfjkijdvLtokbprr Ball Other [employer] Other Start: 86-23-8029Wsgelgwzr encounterBenjamin BallFPG [facility] ClinicStart: 02-20-2023 End: 59-64-3620jnrplxmevrLlvwcwhu Ball Other [employer] Other Start: 98-46-6995Xnzkhi outpatient visit 25 minutes Ovi BallFPG [facility] ClinicStart: 01-23-2023 End: 50-98-0477gsnhgvhioaSrsepibx Ball Other [employer] Other Start: 67-19-1912Ngzvetikq encounterBenjamin BallFPG [facility] ClinicStart: 01-16-2023 End: 25-43-6911yaqtmfttxwVdtajol Calvey Other [employer] Other Start: 82-09-3813Wtsaoo outpatient visit 15 minutes Brina Lisa Kwong OrthopedicsStart: 01-05-2023 End: 74-75-0174yjkvdnuyvzDMLRTSJClinton Memorial Hospital Start: 37-76-6528smczutsmgtIVSMIWI ANTWON .Facility:M5Btwiw: 09-01-2022 End: 40-63-2278ntkcjqynbeIBDTEPK HALKER .Facility:D4Cuzoa: 07-31-2022 End: 54-62-8036mrftdyywycDqwjvkw Calvey Other [place] [employer] Other Start: 78-21-8514Fwpvpwnrv encounterCollyg Mauricio Medical ClinicStart: 07-26-2022 End: 62-24-1432ehtxlsrlomQO OVI MAURICIOFacility:D3Oyzep: 07-26-2022 End: 90-83-2458zunmarsuvoAEREPJRUniversity Hospitals Health System Start: 07-25-2022 End: 86-05-8215rzelejsnaeRWRYONCRYIFX LAKSHMIPATHY .Facility:W8Bjtif: 07-20-2022 End: 47-98-9423qibkeasmrnBMDTHTSSGBKG LAKSHMIPATHY .Facility:J7Nptri: 07-19-2022 End: 21-77-8422noibnbhvzbPW OVI [facility] [employer] Other Start: 37-17-2173Lleammmal encounterBenligia Mauricio Medical ClinicStart: 07-17-2022 End: 35-51-3258tqilqovzffDgherqlm Hang Other [employer] Other Start: 79-99-9169Fintlls encounter procedureBenligia Mauricio Medical ClinicStart: 06-20-2022 End: 46-91-2707ribmofnfcmYU ELIZABETH JESSICA .Facility:K6Cjvmh: 84-49-3177Eseopkgzr encounterColleen Lisa Mauricio Medical ClinicStart: 06-07-2022 End: 46-07-3601yyzcsbkkcgUEPECAJ ALGHOTHANINorth [employer] Other Start: 65-05-1766Ocwuwtkxv for preprocedural laboratory examinationMOMONTEFIORE HEALTH SYSTEMJOSIAH Butlerue HospitalStart: 05-15-2022 End: 98-40-8689dqxohmmvxnURFTWEU ALGHOTHANIFacility:R0Zbcoa: 05-15-2022 End: 85-27-9232Daihwbvrk for preprocedural laboratory examinationMOMONTEFIORE HEALTH SYSTEMJOSIAH MEDEIROSFacility:X8Hpqzi: 74-48-5479ghkjsyauxdNF ELIZABETH S JESSICA .Facility:H1 Start: 04-28-2022 End: 76-11-2918vbjiknknzqIY OVI BALLFacility:Q6Iphwu: 87-84-4678vlzisegspf DR DIOR BALLFacility:V9Uiywd: 36-18-2374fudielygumPX OVI MAURICIO Facility:R3Zlmdz: 86-40-1953ytlgrzrailXV OVI BALLFacility:Z5Mxkip: 97-56-9722jyqnfbivnzQY ELIZABETH S JESSICA .Facility:X3Mlwik: 81-55-3498rsvlbznabwHB OVI BALLFacility:L6Wlwka: 02-27-2022 End: 84-72-2988eedxhwuizaCK OVI BALLFacility:N6Fyzpn: 02-23-2022 End: 89-46-7436umgbjdpdiwIKHU CRISTOBAL .Facility:I2Iasvc: 02-07-2022 End: 86-29-0246hsdmjmxvycMF ELIZABETH S JESSICA .Facility:K9Tppyd: 01-18-2022 End: 60-40-9475yudweudbrfRsqfcco Calvey Other [employer] Other Start: 80-40-7773Vqbiqg outpatient visit 15 minutes Brina [facility] OrthopedicsStart: 01-09-2022 End: 44-66-4143dziuzmygpwGWGK CRISTOBAL .Facility:U4Laaep: 12-29-2021 End: 97-12-8070bnrefzxmmcNMOT CRISTOBAL .Facility:A3Ftiiz: 12-21-2021 End: 93-47-7264guvqaniofyZedlgki Ghanshyam Other [employer] [employer] Other Start: 46-35-9109Bjhtmo outpatient new 30 minutes Brina MorrisseyFPG [facility] OrthopedicsStart: 12-21-2021 End: 64-76-5766Qvzumnp encounter procedureMD Brina Morrissey Work Phone: [facility] Start: 12-13-2021 End: 83-10-9949znoyhnienwMO ELIZABETH S JESSICA .Facility:U9Oibwd: 12-01-2021 End: 14-40-0980rprnpnfgesJBRX SOLIS .Facility:Z9Fkzzd: 09-14-2021 End: 99-95-9595jrswovpxgzJV OVI BALLFacility:X1Zsvta: 44-77-7604Nlebv health examinationCoyg Morrissey Other [employer] [employer] Other Start: 12-25-2017 End: 97-45-1811Iqdzika encounterJonathan ZahlerFacility:FTMCStart: 12-18-2017 End: 97-71-1150Czdcyrc encounterJonathan ZahlerFacility:[facility] Procedures DateProcedureProcedure DetailPerforming ClinicianStart: 02-59-1993Ponvshwu Identification OnlyStart: 62-35-2863Nfmul Culture 1Start: 08-41-6806TK videography Hypopharynx and Esophagus Views for swallowing function W speech and W barium contrast Maicol Rosa MD Work Phone: Start: 92-36-6784Qucegr-up visitFollow-upMOHAMAD ALGHOTHANIStart: 34-59-6477Oejnh X-ray of bilateral handsMD Brina Morrissey Work Phone: Start: 89-81-6542Rhlsuqmxy for osteoporosisCollDesert Regional Medical Centerhernan Other Start: 77-61-6362Enubakiaq for malignant neoplasm of colonCoLakewood Regional Medical Center Other Start: 01-08-5136Gajopofbn mammographyComelissa Morrissey Other Cough 786.2Colleen GhanshyamDepression screeningComelissa Morrissey Other Screening for malignant neoplasm of breastComelissa Morrissey Other Plan of Treatment DateCare ActivityDetailAuthorStart: 69-07-7399Ckxtgxylc vaccinationInfluenza Vaccine (#1)[facility] HealthcareStart: 09-08-2024 End: 78-71-2775Ophoryi encounter atefkepdp04/12/2025 11:00 AM EDT Office Visit [facility] [address] [place] [address] Brigitte Yang NP [address] [place], [place] [facility] ROUTEStart: 04-14-2024 End: 86-99-3455Flzjkxv encounter procedureNOCLEVELAND CLINIC [facility] ROUTEComment on above:ArrivedStart: 91-58-9424Ajygdqtcf vaccinationInfluenza Vaccine (#1)[facility] HealthcareComprehensive metabolic 1999 panel - Serum or PlasmaChildren'S Hospital Of ColumbusComprehensive metabolic 1999 panel - Serum or PlasmaChildren'S Hospital Of ColumbusComprehensive metabolic 1999 panel - Serum or Plasma [facility] ColumbusCT Chest WO contrastChildren'S Hospital Of ColumbusCT Chest WO [facility]MG Breast - bilateral ScreeningChildren'S Hospital Of ColumbusMR Kidney WO and W contrast IV [facility] Immunizations Immunization DateImmunizationNotesCare OaavzdooCohuftoj65-73-7254grbsnkiii, high dose seasonal, preservative-freeChildren'S Hospital Of Columbus10-28-2024 influenza virus vaccine, unspecified formulationFelicia Windnagel LEGAL TRANSCRIPTIONIST Other Phone: [facility] HospitalTyxdcmhvyb67-40-3631iijzfwoyi, high dose seasonal, preservative-freeBenjamin Ball Other [employer] [facility] [employer] Other 500178-13-0766guyatwyxf virus vaccine, split virus (incl. purified surface antigen)Brina Morrissey Other [employer] Other [id number] virus vaccine, unspecified formulationChildren'S Hospital Of Columbus12-06-2021COVID-19 Vaccine Pfizer - Documentation Purposes OnlyBenligia Mauricio Other [facility]09-20-2021influenza virus vaccine, split virus (incl. purified surface antigen)Brina Morrissey Other [employer] Other [id number] virus vaccine, unspecified formulationChildren'S Hospital Of Columbus02-18-2021COVID-19 Vaccine Pfizer - Documentation Purposes OnlyBenligia Mauricio Other [facility]01-28-2021COVID-19 Vaccine Moderna - Documentation Purposes OnlyComaryannyg Morrissey Other [facility]01-28-2021COVID-19 Vaccine Pfizer - Documentation Purposes OnlyBenligia Mauricio Other [facility]11-11-2020influenza virus vaccine, split virus (incl. purified surface antigen)Brina Morrissey Other [employer] Other [id number] virus vaccine, unspecified formulationChildren'S Hospital Of Columbus2019influenza virus vaccine, split virus (incl. purified surface antigen)Brina Morrissey Other [employer] Other [id number] virus vaccine, unspecified formulationChildren'S Hospital Of Columbus11-28-2018influenza virus vaccine, split virus (incl. purified surface antigen)Brina Morrissey Other [employer] Other [id number] virus vaccine, unspecified formulationChildren'S Hospital Of Columbus11-17-2017pneumococcal Conjugate, unspecified formulation; Translations: [Need for prophylactic vaccination ag ainst Streptococcus pneumoniae (pneumococcus)]Brina Morrissey Other [employer] Other 1308564-61-5889xfmbvezvdtfr polysaccharide vaccine, 23 valentBenjamin Ball Other [facility]07-21-2017 pneumococcal conjugate vaccine, 13 valentBenjamin Ball Other [facility]10-12-2016influenza virus vaccine, split virus (incl. purified surface antigen)Brina Morrissey Other [employer] Other [id number] virus vaccine, unspecified formulationChildren'S Hospital Of Columbus Payers DatePayer CategoryPayerPolicy [id number] Cross Blue ShieldBCBS Member Subscriber Plan / Payer (Effective 2016-Present) Name: Giovanna Baum Relation to Subscriber: Self Name: Giovanna Baum Payer ID: Not on file Group ID: [id number] Type: Not on file Address: [facility] [address] [place] [id number] [id number] 2008Medicare 1.2.84[id number] [id number] 85gtz830-ez84-887r-1e7p-277sc6o0048543-76-4499Zgpoxyc6888254 2.16.840.1.167388.3.579.2.42670-58-4661Iaplboz0173752 2.16.840.1.105218.3.579.2.49845-54-3165Yodhyfw1274090 2.16.840.1.582614.3.579.2.23715-38-3953Ycivdol1181232 2.16.840.1.131135.3.579.2.45608-71-8699Ynzqafz6649953 2.16.840.1.826426.3.579.2.73992-62-4376Lkgfezh3795186 2.16.840.1.189836.3.579.2.62631-52-6589Gunfgva5960941 2.16.840.1.084595.3.579.2.79134-20-0578Zxzeslw0710654 2.16.840.1.348829.3.579.2.75979-16-2576Gwxihgp1374982 2.16.840.1.187721.3.579.2.02592-49-4644Xouniva6880722 2.16.840.1.351280.3.579.2.32997-36-3608Zcmmkii5505966 2.16.840.1.774433.3.579.2.67520-75-8783Qadffup2635947 2.16.840.1.601666.3.579.2.83524-48-7074Qalpxll2475310 2.16.840.1.577790.3.579.2.62015-65-6100Soldjxl7722879 2.16.840.1.873370.3.579.2.33803-59-1975Hupofbb2579983 2.16.840.1.279850.3.579.2.65708-86-3252Ardrzjb7030165 2.16.840.1.041760.3.579.2.05366-04-8660Qqabiyq6606659 2.16.840.1.077815.3.579.2.62898-57-6720Gbwcwcq8317924 2.16840.1.528894.3.579.2.74593-00-2753Ccbzpsm4186702 2.840.1.563591.3.579.2.75980-29-8459Runfirc6714973 2.840.1.259857.3.579.2.79618-92-1456Stuqafg3533759 2.840.1.534314.3.579.2.59842-64-8111Uzmvbjj1842483 2.840.1.981656.3.579.2.93154-22-6246Ffrsfrb7327816 2.840.1.643870.3.579.2.92712-34-7917Dyfsagc4143472 2.840.1.391287.3.579.2.36832-31-1748Aykosee9589557 2.16840.1.892685.3.579.2.866292-60-2255Dvhxiyh3122353 2.16840.1.535347.3.579.2.329176-93-5419Dbkfpjx6386025 2.16.840.1.990260.3.579.2.761046-94-5768Stfsaug1948158 2.16840.1.370305.3.579.2.599766-65-0826Qsimefi839630883 2..840.1.341069.3.579.2.33799-88-0100Oxufqao945691407 2.16.840.1.789957.3.579.2.196 Social History DateTypeDetailFacilityTobacco smoking status NHISUnknown if ever smokedSt. Rita'S Hospital Work Phone: Start: 01-47-2913Lvo [facility] Hospitaltart: 10-08-2023 End: 07-14-2660Uwx Assigned At [facility] [employer] Other Start: 06-28-2023 End: 78-97-0291Gayzxlo smoking status NHISNever smoked tobacco (finding) [facility] Centertart: 63-47-1301Qrfroha use and exposure Smokeless tobacco non-userNOTX HealthcareStart: 08-15-2023 End: 27-18-3638Hklnmvebe beverage intakeCurrent drinker of alcohol (finding)[facility] HealthcareStart: 10-08-2023 End: 48-52-1408Esdwcyd of Social functionNOMS HealthcareHow often to you have a drink containing alcohol?Monthly or lessNOMS HealthcareHow many standard drinks containing alcohol do you have on a typical day?1 or 2NOMS HealthcareHow often do you have 6 or more drinks on 1 occasion?NeverNOMS HealthcareStart: 10-08-2023 Alcohol Commentcaffeine: 1-2 cups per dayNOMS HealthcareStart: 53-26-0860Uvo assigned at birthNot on fileNOTX HealthcareStart: 03-17-2024 End: 06-02-9607QuwNzkriq (finding)[facility] Centertart: 83-90-2627Aoghojd CommentSociallyNOTX HealthcareStart: 67-93-6217HxlEatyqsXZXP Healthcare Functional Status YzxpJejhnsbokhHezuzjVorgczon92-60-5065Wgwzq score [AUDIT-C]1 10/08/2023 7:19 AM [facility]yNov[facility] Clinical Notes 12-01-2021 to 11-24-2024 Note Date & PiiaGztlNsgiupkp99-04-8858 Evaluation note* Diagnosis Onset Date Resolution Status Admit Date Cerebral infarction, left hemisphere acuteJuly 2024 12:37pmHypersomniaacuteJuly 2024 12:37pmObstructive sleep apneaacuteJuly 2024 12:37pmPrimary insomniaacuteJuly 2024 12:37pmASHD (arteriosclerotic heart disease)acuteAugust 2024 9:47am Cerebral atherosclerosisacuteAugust 2024 9:47amElevated cholesterolacute December 08, 2024 9:47amElevation of levels of liver transaminase levelsacute December 08, 2024 9:47amLumbar spondylosisacuteAugust 2024 9:47amMajor depressive disorder, recurrent, in full remissionacuteAut 2024 9:47am Mild persistent asthma without complicationacuteAut 2024 9:47amMultiple pulmonary nodulesacuteAugust 2024 9:47amObesityacuteAugust 2024 9:47amObstructive sleep apneaacuteAut 2024 9:47amPrimary hypertension acuteAut 2024 9:47amPrimary insomniaacuteAut 2024 9:47amRenal mass, leftacuteAugust 2024 9:47am [facility] Work Phone: 1(611) 974-862607-28-2025 Evaluation note* Diagnosis Onset Date Resolution Status Admit Date Cerebral infarction, left hemisphere acuteJuly 2024 12:37pmHypersomniaacuteJuly 2024 12:37pmObstructive sleep apneaacuteJuly 2024 12:37pmPrimary insomniaacuteJuly 2024 12:37pmASHD (arteriosclerotic heart disease)acuteAut 2024 9:47am Cerebral atherosclerosisacuteAugust 2024 9:47amChronic kidney diseaseacute December 08, 2024 9:47amElevated cholesterolacuteAugust 2024 9:47amLumbar spondylosisacuteAugust 2024 9:47amMild persistent asthma without complicationacuteAugust 2024 9:47amMultiple pulmonary nodulesacuteAugust 2024 9:47amObesityacuteAugust 2024 9:47amObstructive sleep apnea acuteAugust 2024 9:47amPrimary hypertensionacuteAugust 2024 9:47am Primary insomniaacuteAugust 2024 9:47amRenal mass, leftacuteAugust 2024 9:47amArthritis of carpometacarpal (CMC) joint of left thumbacuteSept2024 10:28amArthritis of carpometacarpal (CMC) joint of right thumbacute January 21, 2025 10:28amCarpal tunnel syndrome, leftacuteSeptember 2024 10:28amCarpal tunnel syndrome, rightacuteSeptember 2024 10:28am [facility] Work Phone: 1(570) 640-279107-28-2025 Evaluation note* Diagnosis Onset Date Resolution Status Admit Date Cerebral infarction, left hemisphere acuteJuly 2024 12:37pmHypersomniaacuteJuly 2024 12:37pmObstructive sleep apneaacuteJuly 2024 12:37pmPrimary insomniaacuteJuly 2024 12:37pmASHD (arteriosclerotic heart disease)acuteAugust 2024 9:47am Cerebral atherosclerosisacuteAugust 2024 9:47amChronic kidney diseaseacute December 08, 2024 9:47amElevated cholesterolacuteAugust 2024 9:47amLumbar spondylosisacuteAugust 2024 9:47amMild persistent asthma without complicationacuteAugust 2024 9:47amMultiple pulmonary nodulesacuteAugust 2024 9:47amObesityacuteAugust 2024 9:47amObstructive sleep apnea acuteAugust 2024 9:47amPrimary hypertensionacuteAugust 2024 9:47am Primary insomniaacuteAugust 2024 9:47amRenal mass, leftacuteAugust 2024 9:47amArthritis of carpometacarpal (CMC) joint of left thumbacuteSeptember 2024 10:28amArthritis of carpometacarpal (CMC) joint of right thumbacute January 21, 2025 10:28amCarpal tunnel syndrome, leftacuteSeptember 2024 10:28amCarpal tunnel syndrome, rightacuteSeptember 2024 10:28amGERD (gastroesophageal reflux disease)acuteOctober 2024 10:31amShortness of breath on exertionacuteOctober 2024 10:31amUpper airway cough syndrome acuteOctober 2024 10:31am [facility] Work Phone: 1(391) 192-577805-06-2025 Evaluation note* Diagnosis Onset Date Resolution Status Admit Date Arthritis of carpometacarpal (CMC) joint of left thumb acuteMay 2024 10:11amArthritis of carpometacarpal (CMC) joint of right thumbacuteMay 2024 10:11amCarpal tunnel syndrome, leftacuteMay 2024 10:11amCarpal tunnel syndrome, rightacuteMay 2024 10:11am [facility] Work Phone: 1(487) 843-720604-28-2025 Evaluation note* Diagnosis Onset Date Resolution Status Admit Date ASHD (arteriosclerotic heart disease) acuteApril 2024 9:55amCerebral atherosclerosisacuteApril 2024 9:55am Elevated cholesterolacuteApril 2024 9:55amElevation of levels of liver transaminase levelsacuteApr2024 9:55amLumbar spondylosisacuteApril 2024 9:55amMajor depressive disorder, recurrent, in full remissionacute August 25, 2024 9:55amMild persistent asthma without complicationacuteApril 2024 9:55amMultiple pulmonary nodulesacuteApril 2024 9:55amObesity acuteApril 2024 9:55amObstructive sleep apneaacuteApril 2024 9:55am Primary hypertensionacuteApril 2024 9:55amMedicare annual wellness visit, subsequentnoneactiveApril 2024 9:55amScreening mammogram for breast cancer noneactiveApril 2024 9:55amArthritis of carpometacarpal (CMC) joint of left thumbacuteMay 2024 10:11amArthritis of carpometacarpal (CMC) joint of right thumbacuteMay 2024 10:11amCarpal tunnel syndrome, leftacuteMay 2024 10:11amCarpal tunnel syndrome, rightacuteMay 2024 10:11am [facility] Work Phone: 1(154) 121-492010-28-2024 Evaluation note* Diagnosis Onset Date Resolution Status Admit Date ASHD (arteriosclerotic heart disease) acuteOctober 2023 9:54amCerebral atherosclerosisacuteOctober 2023 9:54amElevated cholesterolacuteOctober 2023 9:54amLumbar spondylosisacute February 25, 2024 9:54amMajor depressive disorder, recurrent, in full remission acuteOctober 2023 9:54amMild persistent asthma without complicationacute February 25, 2024 9:54amObesityacuteOctober 2023 9:54amObstructive sleep apneaacuteOctober 2023 9:54amPrimary hypertensionacuteOctober 2023 9:54amASHD (arteriosclerotic heart disease)acuteNovember 2023 10:03am Elevation of levels of liver transaminase levelsacuteNovember 2023 10:03am Ground glass opacity present on imaging of lungacuteNov2023 10:03am Mild persistent asthma without complicationacuteNovember 2023 10:03am Pleuritic chest painacuteNovember 2023 10:03amPneumoniaacuteNovember 2023 10:03amPrimary hypertensionacuteNovember 2023 10:03amAcute kidney injury superimposed on chronic kidney diseasenoneactiveNov2023 10:03amArthritis of carpometacarpal (CMC) joint of left thumbacuteJanuary 2024 8:46amArthritis of carpometacarpal (CMC) joint of right thumbacuteJanuary 2024 8:46amCarpal tunnel syndrome, leftacuteJanuary 2024 8:46amCarpal tunnel syndrome, rightacuteJanuary 2024 8:46am [facility] Work Phone: 1(633) 796-214909-03-2024 Evaluation note* Diagnosis Onset Date Resolution Status Admit Date Arthritis of carpometacarpal (CMC) joint of left thumb acuteSeptember 2023 8:36amArthritis of carpometacarpal (CMC) joint of right thumbacuteSeptember 2023 8:36amCarpal tunnel syndrome, leftacuteSeptember 2023 8:36amCarpal tunnel syndrome, rightacuteSeptember 2023 8:36amASHD (arteriosclerotic heart disease)acuteOctober 2023 9:54amCerebral atherosclerosisacuteOctober 2023 9:54amElevated cholesterolacuteOctober 2023 9:54amLumbar spondylosisacuteOctober 2023 9:54amMajor depressive disorder, recurrent, in full remissionacuteOctober 2023 9:54am Mild persistent asthma without complicationacuteOctober 2023 9:54amObesity acuteOctober 2023 9:54amObstructive sleep apneaacuteOctober 2023 9:54amPrimary hypertensionacuteOctober 2023 9:54amASHD (arteriosclerotic heart disease)acuteNovember 2023 10:03amChronic kidney diseaseacute March 17, 2024 10:03amElevation of levels of liver transaminase levelsacute March 17, 2024 10:03amGround glass opacity present on imaging of lungacute March 17, 2024 10:03amMild persistent asthma without complicationacute March 17, 2024 10:03amPleuritic chest painacuteNovember 2023 10:03am PneumoniaacuteNovember 2023 10:03amPrimary hypertensionacuteNovember 2023 10:03am [facility] Work Phone: [phone] 377-887601-19-2024 Marta received fax from [facility] requesting patient hold her [...] asked them to contact Dr. Arriola for clearance.[facility]12-19-2023 Evaluation note* Encounter Date Diagnosis Assessment Notes Treatment Notes Treatment Clinical Notes Mar, Acute cerebral infarction (ICD-1 0 - I63.9) Mar,erebral atherosclerosis (ICD-10 - I67.2) [facility] Other 11-01-2023 Evaluation note* Encounter Date Diagnosis Assessment Notes Treatment Notes Treatment Clinical Notes Feb, Acute cerebral infarction (ICD-1 0 - I63.9) [facility] Other 11-01-2023 Evaluation note* Encounter Date Diagnosis Assessment Notes Treatment Notes Treatment Clinical Notes Feb, Bruit (ICD-10 - R09.89) [facility] Other 10-25-2023 Evaluation note* Encounter Date Diagnosis Assessment Notes Treatment Notes Treatment Clinical Notes Jan, Transient left leg weakness (ICD -10 - R29.898) Jan,Jerking movements of extremities (ICD-10 - R25.2) [facility] Other 10-24-2023 Evaluation note* Encounter Date Diagnosis Assessment Notes Treatment Notes Treatment Clinical Notes Jan, Transient left leg weakness (ICD -10 - R29.898) No acute findings on examination today. Unable to determine etiology to this patient's complaints. No obvious nerve impingment symptoms or findings No obvious persistent focal neurologic deficit MRI brain Labs Referral to Neurology Jan,Jerking movements of extremities (ICD-10 - R25.2)r/o metabolic abnormalities w/ labs. Focal seizure disorder? Schedule labs and MRI brain to r/o tumor, infarction, hemorrhage. Refer to Neurology Jan,Lumbar spondylosis (ICD-10 - M47.816) Jan,Obstructive sleep apnea (ICD-10 - G47.33)AHI 38 w/ Psat 80% Jan,SHD (arteriosclerotic heart disease) (ICD-10 - I25.10)This patient is stable without activity related CP, dyspnea or lightheadedness. They are instructedto continue exercise and AHA diet plan. Continue secondary prevention measures. Jan,rimary hypertension (ICD-10 - I10)This patient is instructed to consume a healthy, low-fat, low-salt diet. They are also encouraged to continue exercise to achieve/maintain a normal BMI. Jan,Elevated cholesterol (ICD-10 - E78.00)Instructed on diet and exercise with continued statin therapy.Discussed the beneficial effects of lo wering cholesterol in reducing the risk for cerebrovascular and cardiovascular disease. [facility] Other 09-19-2023 Evaluation note* Encounter Date Diagnosis Assessment Notes Treatment Notes Treatment Clinical Notes Dec, Carpal tunnel syndrome, right (I CD-10 - G56.01) Bilateral carpal tunnel and bilateral thumb CMC joints injected with cortisone under sterile technique, patient tolerated well Dec,arpal tunnel syndrome, left (ICD-10 - G56.02) Dec,rthritis of carpometacarpal (CMC) joint of right thumb (ICD-10 - M18.11) Dec,rthritis of carpometacarpal (CMC) joint of left thumb (ICD-10 - M18.12) Dec,ain in right hand (ICD-10 - M79.641) Dec,ain in left hand (ICD-10 - M79.642) [facility] Other 09-08-2023 NoteCardiology Clinic Note Chief Complaint: abnormal stress HPI: iGovanna Baum is a 82 y.o. female With a [...] in all muscle groups, (more content not included)...[facility]09-08-2023 NotePatient here for 6 mo follow up CAD, hypertension, and hyperlipidemia. Has not been taking aspirin because she doesn't like taking a lot of pills. Says she's only had chest pain once recently. Sees Dr. Smith and had CT chest in September. [facility]04-03-2023 Evaluation note* Encounter Date Diagnosis Assessment Notes Treatment Notes Treatment Clinical Notes Jul, Pulmonary nodule (ICD-10 - R91.1) RUL 10m m nodule - 06/3022ough (ICD9-CM - 786.2) Jul,Mild persistent asthma without complication (ICD-10 - J45.30) [facility] Other 03-29-2023 NoteCardiology Clinic Note Chief Complaint: abnormal stress HPI: Giovanna Baum is a 81 y.o. female With a [...] motor function in all (more content not included)...[facility]03-23-2023 NoteCONSULTATION CONSULTATION DATE: 07/20/2022 TO: Dr. Mauricio CHIEF COMPLAINT: Includes severe lower back pain, [...] be helping some of her pain symptoms.[id number] Evaluation note* Encounter Date Diagnosis Assessment Notes Treatment Notes Treatment Clinical Notes Jun, Pulmonary nodule (ICD-10 - R91.1) RUL 10m m nodule - 06/3022 [facility] Other 03-20-2023 Evaluation note* Encounter Date Diagnosis [...] reviewed and amended by provider signed below. Jun,SHD (arteriosclerotic heart disease) (ICD-10 - I25.10)This patient is stable without activity related CP, dyspnea or lightheadedness. They are instructedto continue exercise and AHA diet plan. Jun,rimary hypertension (ICD-10 - I10)This patient is instructed to consume a healthy, low-fat, low-salt diet. They are also encouraged to continue exercise to achieve/maintain a normal BMI. Jun,astroesophageal reflux disease with esophagitis without hemorrhage (ICD-10 - K21.00)Diet instructions: Smaller portions, avoid eating and laying flat, avoid eating or drinking prior to bedtime. Weight loss. Jun,Major depressive disorder, recurrent, in full remission (ICD-10 - F33.42)Healthy diet and exericise. Continue present therapy Jun,Obstructive sleep apnea (ICD-10 - G47.33)This patient is aware of the benefits associated with DIVINA: With continued use, the patient reduces the risk for MN, CVA, HTN, cardiac dysrhythmias and sudden cardiac deaths.The patient is also aware of the association between DIVINA and morning headaches, daytime somnolence, fatigue and obesity, whichalso has been improved with continued use.The patient is compliant with treatment, wearing the equipment every night for greater than 4 hours.The patient is instructed to continue use of the CPAP forOSA treatment. Jun,Overactive bladder (ICD-10 - N32.81)Improved w/ medications, tolerating side effects Jun,cute bacterial conjunctivitis of both eyes (ICD-10 - H10.33)Warm compresses, begin antibiotics, wash hands frequently Jun,Screening mammogram for breast cancer (ICD-10 - Z12.31) [facility] Other 02-08-2023 Evaluation note* Encounter Date Diagnosis Assessment Notes Treatment Notes Treatment Clinical Notes May, ASHD (arteriosclerotic heart dis ease) (ICD-10 - I25.10) LHC: moderate, nonobstructive coronary disease - 05/2022 [facility] Other 02-08-2023 NotePatient here for follow up [...] light-headedness. All other systems reviewed and are negative.[facility] 06-07-2022 NoteCardiology Clinic Note Chief Complaint: abnormal stress HPI: Giovanna Baum is a 81 y.o. female With a [...] Value Ventricular Rate 53 Atrial Rate 53 VA Interval 186 QRS DURATION 142 QT Interval 472 QTC CALCULATION(BAZETT) 442 P North Pitcher 29 R-North Pitcher -35 T Wave North Pitcher 59 Impression Sinus bradycardia Left axis deviation Left bundle branch block Abnormal ECG When compared with ECG of 30-NOV-2008 12:01, Premature atrial comple (more content not included)...[facility]10-27-2022 NoteCONSULTATION CONSULTATION DATE: 02/23/2022 This [...] will be followed in the clinic thereafter.[facility] [id number] Evaluation note* Encounter Date Diagnosis Assessment Notes Treatment Notes Treatment Clinical Notes Dec, Pain in left hand (ICD-10 - M79. 642) Dec,rthritis of carpometacarpal (CMC) joint of both thumbs (ICD-10 - M18.0)Discussed with patient she is progressing well. Continue to use voltaren gel as needed. Patient given Dr. Stewart medication sheet Dec,ain in right hand (ICD-10 - M79.641) Dec, arpal tunnel syndrome, right (ICD-10 - G56.01) Dec,arpal tunnel syndrome, left (ICD-10 - G56.02) Dec,Numbness in both hands (ICD-10 - R20.0) [facility] Other 09-01-2022 NoteCONSULTATION CONSULTATION DATE: 12/29/2021 HISTORY [...] patient is in agreement to move forward.[facility] [id number] Evaluation note* Encounter Date Diagnosis Assessment Notes Treatment Notes Treatment Clinical Notes Nov, Pain in left hand (ICD-10 - M79. 642) Nov,rthritis of carpometacarpal (CMC) joint of both thumbs (ICD-10 - M18.0)Extensive discussion was held with the patient regarding treatment options. She was instructed to wear a supportive wrist brace at night and during activities during the day, as well as using topicalVoltaren Gel in the morning and at night. Patient also has elected for cortisone injections today. After sterile prep, cortisone injections performed into bilateral thumb CMC joints. Patient tolerated well. Discussed surgical treatment if the injections are not helpful. Nov,ain in right hand (ICD-10 - M79.641) Nov,arpal tunnel syndrome, right (ICD-10 - G56.01)The patient also appears to have carpal tunnel of both wrists. Cortisone injections were performed into both wrists after sterile prep. Patient tolerated well. Nov,arpal tunnel syndrome, left (ICD-10 - G56.02) Nov,Numbness in both hands (ICD-10 - R20.0) [facility] Other 08-04-2022 NoteCONSULTATION CONSULTATION DATE: 12/01/2021 HISTORY [...] followed up in the office post procedure.[facility] HealthEvaluation noteNo assessment information [facility] Work Phone: Evaluation noteNo InformationNort [employer] Other Evaluation note* Diagnosis Onset Date Resolution Status Arthritis of carpometacarpal (CMC) joint of left thumb acuteArthritis of carpometacarpal (CMC) joint of right thumbacuteCarpal tunnel syndrome, leftacuteCarpal tunnel syndrome, rightacuteLeft hand painacuteRight hand painacuteASHD (arteriosclerotic heart disease)acuteCerebral atherosclerosis acuteGERD (gastroesophageal reflux disease)acuteLumbar spondylosisacuteMajor depressive disorder, recurrent, in full remissionacuteMild persistent asthma without complicationacuteObstructive sleep apneaacutePrimary hypertensionacute Medicare annual wellness visit, subsequentnoneactiveScreening mammogram [facility] Work [facility]: Evaluation note* Diagnosis Onset Date Resolution Status Arthritis of carpometacarpal (CMC) joint of left thumb acuteArthritis of carpometacarpal (CMC) joint of right thumbacuteCarpal tunnel syndrome, leftacuteCarpal tunnel syndrome, rightacute [facility] Work Phone: Evaluation note* Diagnosis LPRD (laryngopharyngeal reflux disease) Acute laryngitis, without mention of obstruction documented in this encounter [facility] HealthcareEvaluation note* Diagnosis Onset Date Resolution Status Arthritis of carpometacarpal (CMC) joint of left thumb acuteArthritis of carpometacarpal (CMC) joint of right thumbacuteCarpal tunnel syndrome, leftacuteCarpal tunnel syndrome, rightacuteASHD (arteriosclerotic heart disease)acuteCerebral atherosclerosisacuteElevated cholesterolacuteLumbar spondylosisacuteMajor depressive disorder, recurrent, in full remissionacuteMild persistent asthma without complicationacuteObstructive sleep apneaacutePrimary hypertensionacute [facility] Work Phone: Evaluation note* Diagnosis Obstructive sleep apnea syndrome- Primary Obstructive sleep apnea (adult) (pediatric) Cerebral infarction, left hemisphere (CMS/HCC) Unspecified cerebral artery occlusion with cerebral infarction Hypoxia Hypoxemia Sleep deprivation Problems related to lack of adequate sleep documented in this encounter [facility] HealthcareEvaluation note* Diagnosis Cerebral infarction, left hemisphere (CMS/HCC)- Primary Unspecified cerebral artery occlusion with cerebral infarction documented in this encounter [facility] HealthcareEvaluation note* Diagnosis Onset Date Resolution Status Admit Date ASHD (arteriosclerotic heart disease) acuteApril 2024 9:55amCerebral atherosclerosisacuteApril 2024 9:55am Elevated cholesterolacuteApril 2024 9:55amElevation of levels of liver transaminase levelsacuteApr2024 9:55amLumbar spondylosisacuteApril 2024 9:55amMajor depressive disorder, recurrent, in full remissionacute August 25, 2024 9:55amMild persistent asthma without complicationacuteApril 2024 9:55amMultiple pulmonary nodulesacuteApril 2024 9:55amObesity acuteApril 2024 9:55amObstructive sleep apneaacuteApril 2024 9:55am Primary hypertensionacuteApril 2024 9:55amMedicare annual wellness visit, subsequentnoneactiveApril 2024 9:55amScreening mammogram for breast cancer noneactiveApril 2024 9:55am [facility] Work Phone: Evaluation note* Diagnosis Cerebral infarction, left hemisphere (HCC) Unspecified cerebral artery occlusion with cerebral infarction documented in this encounter [facility] HealthcareHistory general Narrative - Reported* Type Description Date Medical History Esophageal reflux Medical Historyseasonal allergiesMedical HistoryOSAMedical HistoryHypertension Surgical HistoryAPPENEDECTOMYSurgical HistoryHYSTERECTOMYSurgical HistorySINUS Surgical HistoryLEFT HANDSurgical HistoryHEART CATHSurgical History CHOLECYSTECTOMY [facility] Other History general Narrative - Reported* Type Description Date Medical History Esophageal reflux Medical Historyseasonal allergiesMedical HistoryOSAMedical HistoryHypertension Medical HistoryASHD (arteriosclerotic heart disease)Surgical History APPENEDECTOMYSurgical HistoryHYSTERECTOMYSurgical HistorySINUSSurgical History LEFT HANDSurgical HistoryHEART CATHSurgical HistoryCHOLECYSTECTOMYSurgical Historycardiac catheterization06/07/22 [facility] Other [employer] general Narrative - Reported* Type Description Date Medical History Esophageal reflux Medical Historyseasonal allergiesMedical HistoryOSAMedical HistoryHypertension Medical HistoryASHD (arteriosclerotic heart disease)Medical HistoryLumbar spondylosisMedical HistoryOveractive bladderMedical HistoryPrimary osteoarthritis of both first carpometacarpal jointsMedical HistoryOther secondary pulmonary hypertensionMedical HistoryMultiple pulmonary nodulesMedical HistoryNSVT (nonsustained ventricular tachycardia)Medical HistoryObstructive sleep apneaMedical HistoryMajor depressive disorder, recurrent, in full remissionSurgical HistoryAPPENEDECTOMYSurgical HistoryHYSTERECTOMYSurgical HistorySINUSSurgical HistoryLEFT HANDSurgical HistoryHEART CATHSurgical History CHOLECYSTECTOMYSurgical Historycardiac catheterization06/07/22Hospitalization HistorySEE SURGICAL HX [facility] Other Reason for referral (narrative)No reason for referral information availableSelect [facility] Work Phone: Summary Purpose Family History Relationship Condition Age at Onset Recorded Date/T urvashi sister Hypertension Unknown Diabetes mellitusUnknown Advance Directives Advance Directive Response Recorded Date/ Time Advance Directives No December 21, 2021 12:20pm Advance Directive Response Recorded Date/ Time Advance Directives No December 21, 2021 11:20am Chief Complaint and Reason for Visit Chief Complaint M79.641 Chief Complaint OP SP SHERICE HAND PAIN Medicare WellnessReason for VisitArthritis of carpometacarpal (CMC) joint of left thumb Arthritis of [...] BILAT HAND TIM N 6 Month Check UpReason for VisitArthritis of carpometacarpal (CMC) joint of left thumb Arthritis of [...] Oc tober 2023 9:54am Cerebral atherosclerosis February 24, 2 024 9:54am Elevated cholesterol February 25, 2024 [...] Oc tober 2023 9:54am Cerebral atherosclerosis February 24, 2 024 9:54am Elevated cholesterol February 25, 2024 [...] Admit Date ASHD (arteriosclerotic heart disease) [facility] 2024 9:55am Cerebral atherosclerosis August 25 [...] 2024 9:55am Screening mammogram for breast cancer [facility] 2024 9:55am Chief Complaint Admit Date 6 month f/u-HIGH RISK Juliana 28th, 2025 9 :55am 3 MONTHS September 02, 2024 [...] 10:11am Carpal tunnel syndrome, left September 02, 10:11am Carpal tunnel syndrome, right September 02, 2 025 10:11am Chief Complaint Admit Date 3 [...] syndrome, right September 02, 2 025 10:11am Chief Complaint Admit Date 5-6 Month Follow up November 24, 2024 12:3 7pm 4 month f/u-HIGH RISK December 08, 2024 9:47am Reason for Visit Admit Date Cerebral infarction, left hemisphere Xavier y 2024 12:37pm Hypersomnia November 24, 2024 12:3 7pm Obstructive sleep apnea November 24, 2024 12:37pm Primary insomnia November 24, 2024 12:3 7pm ASHD (arteriosclerotic heart disease) [facility] 2024 9:47am Cerebral atherosclerosis December 08 9:47am [...] mass, left December 08, 2024 9: 47am Chief Complaint Admit Date 5-6 Month Follow up November 24, 2024 12:3 7pm 4 month f/u-HIGH RISK December 08, 2024 9:47am 4 months January 21, 2025 10:28am Reason for Visit Admit Date Cerebral infarction, left hemisphere Oct 12:37pm Hypersomnia November 24, 2024 12:3 7pm Obstructive sleep apnea November 24, 2024 12:37pm Primary insomnia November 24, 2024 12:3 7pm ASHD (arteriosclerotic heart disease) [facility] 2024 9:47am Cerebral atherosclerosis December 08 9:47am Chronic kidney disease December 08, 2024 9:47am Elevated cholesterol December 08, 2024 9 :47am Lumbar spondylosis December 08, 2024 9: 47am Mild persistent asthma without complicat ion December 08, 2024 9:47am Multiple pulmonary nodules December 08, 2024 9:47am Obesity December 08, 2024 9: 47am Obstructive sleep apnea December 08 9:47am Primary hypertension December 08, 2024 9 :47am Primary insomnia December 08, 2024 9: 47am Renal mass, left December 08, 2024 9: 47am Arthritis of carpometacarpal (CMC) joint of left thumb January 21, 2025 10:28am Arthritis of carpometacarpal (CMC) joint of right thumb January 21, 2025 10:28am Carpal tunnel syndrome, left December 302024 10:28am Carpal tunnel syndrome, right January 21, 2025 10:28am Chief Complaint Admit Date 5-6 Month Follow up November 24, 2024 12:3 7pm 4 month f/u-HIGH RISK December 08, 2024 9:47am 4 months January 21, 2025 10:28am Transfer of care -[facility] tx, Asthma February 18, 2025 10:31am Reason for Visit Admit Date Cerebral infarction, left hemisphere Xavier 2024 12:37pm Hypersomnia November 24, 2024 12:3 7pm Obstructive sleep apnea November 24, 2024 12:37pm Primary insomnia November 24, 2024 12:3 7pm ASHD (arteriosclerotic heart disease) Au 2024 9:47am Cerebral atherosclerosis December 08 9:47am Chronic kidney disease December 08, 2024 9:47am Elevated cholesterol December 08, 2024 9 :47am Lumbar spondylosis December 08, 2024 9: 47am Mild persistent asthma without complicat ion December 08, 2024 9:47am Multiple pulmonary nodules December 08, 2024 9:47am Obesity December 08, 2024 9: 47am Obstructive sleep apnea December 08 9:47am Primary hypertension December 08, 2024 9 :47am Primary insomnia December 08, 2024 9: 47am Renal mass, left December 08, 2024 9: 47am Arthritis of carpometacarpal (CMC) joint of left thumb January 21, 2025 10:28am Arthritis of carpometacarpal (CMC) joint of right thumb January 21, 2025 10:28am Carpal tunnel syndrome, left December 302024 10:28am Carpal tunnel syndrome, right January 21, 2025 10:28am GERD (gastroesophageal reflux disease) O ctober 2024 10:31am Shortness of breath on exertion February 18, 2025 10:31am Upper airway cough syndrome January 10:31am Additional Source Comments INFORMATION SOURCE (unrecogn ized section and content) DATE CREATED AUTHOR 12/29/2017 [facility] DATE CREATED AUTHOR AUTHOR'S ORGANIZ ATION 12/25/2021 [facility] DATE CREATED AUTHOR AUTHOR'S ORGANIZ ATION 09/08/2022 [facility] DATE CREATED AUTHOR AUTHOR'S ORGANIZ ATION 05/19/2023 [facility] DATE CREATED AUTHOR AUTHOR'S ORGANIZ ATION 04/16/2024 [facility] DATE CREATED AUTHOR AUTHOR'S ORGANIZ ATION 12/27/2024 [facility] Care Teams (unrecognized sec tion and content) Team Status: Active Member Role Status Dates Ovi Mauricio DO Primary Care Provider Active Team Status: Active Member Role Status Dates Ovi Mauricio DO Primary Care Provider Active Start: September 30, 2024 Emile Elmore ProviderActiveStart: September 30, 2024 Team Status: Active Member Role Status Dates Ovi Mauricio DO Primary Care Provider Active Start: October 23, 2024 Emile Elmore ProviderActiveStart: October 23, 2024 Team Status: Inactive Member Role Status Dates Ovi Mauricio DO Primary Care Provider Active Start: November 24, 2024 End: November 24Morena Luciano ProviderActiveStart: November 24, 2024 End: November 24, 2024 Team Status: Active Member Role Status Dates Ovi Mauricio DO Primary Care Provider Active Start: December 05, 2024 Emile Elmore ProviderActiveStart: December 05, 2024 Team Status: Inactive Member Role Status Dates Ovi Mauricio DO Primary Care Provider Active Start: December 08, 2024 End: December 08Emile Ibarra ProviderActiveStart: December 08, 2024 End: December 08, 2024 Team Status: Inactive Member Role Status Dates Ovi Mauricio DO Primary Care Provider Active Start: January 01, 2024 End: December 31Jesus Mcghee ProviderActiveStart: January 01, 2024 End: January 01, 2024 Team Status: Inactive Member Role Status Dates Ovi Mauricio DO Primary Care Provide r, Attending Provider Active Start: February 25, 2024 End: February 25, 2024 Team Status: Active Member Role Status Dates Ovi Mauricio DO Primary Care Provide r, Attending Provider Active Start: November 07, 2023 Team Status: Inactive Member Role Status Dates Brina Morrissey MD Attending Provider Active Team Status: Inactive Member Role Status Dates Ovi Mauricio DO Primary Care Provider Active Start: July 04, 2023 End: July 03rachel Morrissey MDAttkrista ProviderActiveStart: July 04, 2023 End: July 04, 2023 Team Status: Inactive Member Role Status Dates Ovi Mauricio DO Primary Care Provide r, Attending Provider Active Start: July 20, 2023 End: July 20, 2023Team MemberRelationshipSpecialtyStart DateEnd Date Ovi Mauricio MD [address] [place] [id number] [facility] Team Status: Active Member Role Status Dates Ovi Mauricio DO Primary Care Provide r, Attending Provider Active Start: February 27, 2024 Team Status: Active Member Role Status Dates Ovi Mauricio DO Primary Care Provider Active Start: March 08, 2024 Marin Chase MDAttending ProviderActiveStart: March 08, 2024 Team Status: Active Member Role Status Dates Ovi Mauricio DO Primary Care Provider Active Start: March 09, 2024 Tyrone Rosas MDAttending ProviderActiveStart: March 09, 2024 Team Status: Active Member Role Status Dates Ovi Mauricio DO Primary Care Provider Active Start: March 10, 2024 Aditi Daniel CMAAttending ProviderActiveStart: March 10, 2024 Team Status: Active Member Role Status Dates Ovi Mauricio DO Primary Care Provide r, Attending Provider Active Start: March 10, 2024 Team Status: Inactive Member Role Status Dates Ovi Mauricio DO Primary Care Provide r, Attending Provider Active Start: March 17, 2024 End: March 17, 2024Team MemberRelationshipSpecialtyStart DateEnd Date Ovi Mauricio MD [address] [place] [id number] PCP - [facility] Medicine07/10/23 Madhavi Arriola DO [address] [place] [address] Referring UvvqdpcibUimlojaov39/16/24Team MemberRelationshipSpecialtyStart Date End Date Ovi Mauricio MD [address] [place] [id number] PCP - GeneralInternal Medicine07/10/23 Madhavi Arriola DO [address] [place] [address] Referring VovcwvyenNzwhzlnhg13/16/24Team MemberRelationshipSpecialtyStart Date End Date Ovi Mauricio MD [address] [place] [address] PCP - GeneralInternal Medicine07/10/23 Team Status: Inactive Member Role Status Dates Ovi Mauricio DO Primary Care Provider Active Start: May 06, 2024 End: May 06Jesus Mcghee ProviderActiveStart: May 06, 2024 End: May 06, 2024 Team Status: Inactive Member Role Status Dates Ovi Mauricio DO Primary Care Provide r, Attending Provider Active Start: August 25, 2024 End: August 25, 2024 Team Status: Inactive Member Role Status Dates Ovi Mauricio DO Primary Care Provider Active Start: September 02, 2024 End: September 02Jesus Mcghee ProviderActiveStart: September 02, 2024 End: September 02, 2024 Team Status: Active Member Role Status Dates Ovi Mauricio DO Primary Care Provider Active Start: September 03, 2024 Ovi Mauricio DOAttkrista ProviderActiveStart: September 03, 2024 Team Status: Inactive Member Role Status Dates Ovi Mauricio DO Primary Care Provider Active Start: January 21, 2025 End: January 21Jesus Mcghee ProviderActiveStart: January 21, 2025 End: January 21, 2025Team MemberRelationshipSpecialtyStart DateEnd Date Ovi Mauricio DO PCP - GeneralInternal Medicine07/10/23 Madhavi Arriola DO [address] [place] [address] Referring DykywbqqkDmybzbyxp77/16/24 Team Status: Active Member Role/Relationship Status Dates Ovi Mauricio DO Primary Care Provider Active Team Status: Inactive Member Role/Relationship Status Dates Ovi Mauricio DO Primary Care Provider Active Start: November 24, 2024 End: November 24ngMorena Webb ProviderActiveStart: November 24, 2024 End: November 24, 2024 Team Status: Active Member Role/Relationship Status Dates Ovi Mauricio DO Primary Care Provider Active Start: December 05, 2024 Ovi Mauricio DOAttending ProviderActiveStart: December 05, 2024 Team Status: Inactive Member Role/Relationship Status Javier Mauricio DO Primary Care Provider Active Start: December 08, 2024 End: December 08enligia Mauricio DOAttkrista ProviderActiveStart: December 08, 2024 End: December 08, 2024 Team Status: Inactive Member Role/Relationship Status Dates Ovi Mauricio DO Primary Care Provider Active Start: January 21, 2025 End: January 21ollyg Morrissey MDAttkrista ProviderActiveStart: January 21, 2025 End: January 21, 2025 Team Status: Inactive Member Role/Relationship Status Dates Ovi Mauricio DO Primary Care Provider Active Start: February 18, 2025 End: February 18enJeimy Alvarezing ProviderActiveStart: February 18, 2025 End: February 18, 2025Heidi SHEA Ramirez ACNP-BCAttending ProviderActiveStart: February 18, 2025 End: February 18, 2025Team MemberRelationshipSpecialtyStart DateEnd Ovi Laws DO PCP - GeneralInternal Medicine07/10/23 Madhavi Arriola DO [address] [place] [address] Referring IcuarpueyRrjsegone92/16/24 Goals (unrecognized section and content) Goals may [...] FOR VISIT (unrecogniz ed section and content) ReasonCommentsMed Refill FOR RECORDS PERTAINING TO PATIENTS WHO [...] BE BASED ON THE PRIMARY CLINICAL RECORDS. [facility]. provides no warranty or guarantee of the accuracy or completeness of information in this document.
--- NOTE | 2025-04-02 08:40 | PM.CN ---
Consult Note: HPI Data of Consult Patient: known to practice within the last 3 years Consult date: 04/02/25 Requesting Physician: Kelly Lott NP Primary Care Provider: Ovi Crooks, Consult Narrative Reason for consult: low back and RLE pain Narrative: Rupali Richardson a pleasant 84 year old female presents for evaluation of chronic low back pain secondary to lumbar stenosis, lumbar ddd, and lumbar spondylosis. Pt has failed to benefit from > 6 weeks of PT/HEP, heat, ice, tylenol, nsaids. continues to utilize tylenol and gabapentin, cannot take NSAIDs as she is on plavix. has not needed baclofen but has available at home. denies fall/injury since last visit. Pt noting pain 4/10 increasing to 9/10. Pain increases with pushing, pulling, standing, walking. Notes improvement with sitting. She found benefit to prior lumbar NKECHI and has noticed increasing low back and RLE pain since last visit. 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 (ICD-10) Lumbar spondylosis ?M47.816 - Spondylosis without myelopathy or radiculopathy, lumbar region (ICD-10) Numbness and tingling ?R20.0 - Anesthesia of skin (ICD-10) ?R20.2 - Paresthesia of skin (ICD-10) Osteoarthritis ?M19.90 - Unspecified osteoarthritis, unspecified site (ICD-10) Upper back pain ?M54.9 - Dorsalgia, unspecified (ICD-10) Low back pain ?M54.50 - Low back pain, unspecified (ICD-10) Acid reflux ?K21.9 - Gastro-esophageal reflux disease without esophagitis (ICD-10) Obesity ?E66.9 - Obesity, unspecified (ICD-10) Sleep apnea ?G47.30 - Sleep apnea, unspecified (ICD-10) Atrial fibrillation ?I48.91 - Unspecified atrial fibrillation (ICD-10) Surgical History 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 - Acquired absence of unspecified finger(s) (ICD-10) S/P lumbar spine operation ?Z98.890 - Other specified postprocedural states (ICD-10) S/P thoracentesis ?Z98.890 - Other specified postprocedural states (ICD-10) S/P sinus surgery ?Z98.890 - Other specified postprocedural states (ICD-10) H/O hand surgery ?Z98.890 - Other specified postprocedural states (ICD-10) H/O cardiac catheterization ?Z98.890 - Other specified postprocedural states (ICD-10) History of hysterectomy ?Z90.710 - Acquired absence of both cervix and uterus (ICD-10) History of cholecystectomy ?Z90.49 - Acquired absence of other specified parts of digestive tract (ICD-10) Hx of appendectomy ?Z90.49 - Acquired absence of other specified parts of digestive tract (ICD-10) Social History Highest level of school completed/degree received: high school graduate Little interest or pleasure in doing things: not at all Feeling down, depressed, or hopeless: not at all Meds Home Medications and Allergies Home Medications ?Medication ?Instructions ?Recorded ?Confirmed ?Type atorvastatin 40 mg tablet 40 mg PO DAILY 10/05/22 12/22/24 History escitalopram oxalate 10 mg tablet 10 mg PO DAILY 10/05/22 12/22/24 History (Lexapro) gabapentin 100 mg capsule 100 mg PO BID 10/05/22 12/22/24 History isosorbide mononitrate 30 mg 30 mg PO DAILY 10/05/22 12/22/24 History tablet,extended release 24 hr losartan 50 mg tablet 50 mg PO DAILY 10/05/22 12/22/24 History metoprolol tartrate 25 mg tablet 12.5 mg PO DAILY 10/05/22 12/22/24 History oxybutynin chloride 15 mg 15 mg PO DAILY 10/05/22 12/22/24 History tablet,extended release 24 hr clopidogrel 75 mg PO DAILY 04/12/23 12/22/24 History budesonide-formoterol HFA 160 2 puff inhalation Q12H 03/08/24 12/22/24 History mcg-4.5 mcg/actuation aerosol inhaler (Symbicort) hydrochlorothiazide 25 mg tablet 25 mg PO QAM 03/08/24 12/22/24 History omeprazole 40 mg capsule,delayed 40 mg PO .ACB 03/08/24 12/22/24 History release baclofen 10 mg tablet 10 mg PO BID PRN muscle spasm #180 12/03/24 12/22/24 Rx tabs fexofenadine 180 mg tablet 180 mg PO DAILY 12/22/24 12/22/24 History (Leslie Allergy) Allergies Allergy/AdvReac Type Severity Reaction Status Date / Time midazolam (From Versed) Allergy Unknown Vomiting Verified 12/22/24 10:43 Exam Constitutional Documenting provider has reviewed patient's vital signs: yes Common normals: no apparent distress, oriented x3, healthy appearing, alert and well nourished General appearance: cooperative HENMT Common normals: normocephalic, hearing grossly normal bilaterally and moist oral mucous membranes Head and scalp: normocephalic Eye Common normals: PERRL Pupil: PERRL Neck & C-Spine Common normals: full ROM General: normal visual inspection Chest Common normals: inspection of chest normal Respiratory Common normals: normal respiratory effort, no retractions and no use of accessory muscles Back & Pelvis Thoracic spine/upper back: thoracic spinal tenderness (right T9-12); no pain with ROM Lumbar spine/lower back: lumbar spinal tenderness and straight leg raise positive right; no pain with ROM and straight leg raise negative left Sacroiliac joints: SI joint(s) abnormal Other: decreased sensation right L4,5,S1 strength 5/5 in BLE positive bilateral michelle(patricks), gaenslens, thigh thrust, compression test Neuro Common normals: oriented x3 Sensorium/orientation: alert Psych Common normals: mental status grossly normal, thought process normal, cooperative, affect normal, speech normal and activity/motor behavior normal Speech: normal speech Thought process: normal thought process Results Imaging Lumbar MRI : Attestation: I have reviewed the pertinent imaging results. Radiologist's impression: Their is 5 mm of retrolisthesis of L2 upon L3. There is preservation of vertebral body. There is severe disc height loss at L2-L3 with moderate disc height loss at L3-L4 and L5-S1. There is moderate disc height loss at L1-L2 with mild disc height loss at L4-5. There is Schmorl's node formation throughout. There is Modic type I endplate edema at L1-L2 and L2-3. There is Modic type II fatty endplate degenerative change at L3-L4 and L5-S1. The conus terminates at the inferior endplate of the L1 vertebral body level. No epidural or paraspinous fluid collection is appreciated. There is a 1.4 cm heterogeneous structure in the left renal cortex posteriorly. This is isointense attenuating on the previous CT. This may represent a complex/hemorrhagic cyst. A mass is not excluded however. Follow-up with contrast-enhanced CT or MRI is recommended. There is a similar hemorrhagic cyst at the inferior pole of the left renal cortex. Simple cysts are noted in the renal cortices requiring no further follow-up. At T12-L1: There is a small right central disc bulge with mild spinal canal narrowing. There is facet hypertrophy. There is no significant neural foraminal stenosis. At L1-L2: There is a circumferential disc bulge with a focal right subarticular disc protrusion. There is facet hypertrophy. There is moderate spinal canal stenosis with mild right neural foraminal narrowing. At L2-L3: There is a circumferential disc bulge with facet hypertrophy. There is mild spinal canal stenosis with mild left and moderate right neural foraminal narrowing. At L3-L4: There is a broad-based disc bulge with facet hypertrophy and evidence of previous right hemilaminotomy. No spinal canal narrowing. There is endplate osteophyte formation. There is mild left and moderate right neural foraminal stenosis. At L4-L5: There is a broad-based disc bulge with facet hypertrophy and ligament flavum thickening. There is moderate spinal canal stenosis with mild to moderate bilateral neural foraminal narrowing. At L5-S1: There is a circumferential disc bulge with facet hypertrophy and ligamentum flavum thickening. There is endplate osteophyte formation. There is no spinal canal narrowing. There is mild right and moderate left neural foraminal stenosis. Additional Findings Additional findings: If on a controlled substance or opioids, I have checked an [place] report on this patient and there are no aberrancies noted in the prescribing history.??If on a controlled substance or opioid a drug screen was completed and reviewed within the last year, and if there has not been a drug screen completed we ordered one today to monitor higher risk, state monitored pain medication use. As part of providing excellent, safe, comprehensive care, the following was completed at our patient's visit: 1. A medication reconciliation and review to ensure accurate knowledge of current/active medications, including asking our patients to inform us about any [id number] medications or herbal remedies/nutritional supplements/alternative remedies. 2. A review to specifically ensure our patients have had annual screening for screening for depression, screening for tobacco use, and screening for unhealthy alcohol use. For concerning screenings had a discussion with the patient, provided patient education, and recommended follow-up with primary care provider when appropriate. If patient noted with a risk of falling, they received education on strength, gait, and balance training to prevent future risk of falling. Portions of this note may have been carried over from the previous visit and updated as appropriate. Please note this office utilizes paper charting in addition to the electronic medical record. A list of current medications, vitals, and PMH is available there as the clinical staff outside of myself do not have access to [employer] charting during the clinic day operations. As part of providing quality comprehensive care the current medications, vitals, and PMH were reviewed in the paper chart. Assessment and Plan Assessment and Plan (1) Lumbar stenosis with neurogenic claudication: Assessment and Plan: 12/22/24 right L4-5 L5-S1 TFESI >50% improvement in pain and functional ability for at least 3 months (2) Sacroiliitis: (3) Myalgia, other site: (4) Lumbar spondylosis: Plan The patient has had over 3 months of moderate to severe low back and RLE pain with functional impairment and inadequate response to conservative care including NSAIDS (unless there are contraindication such as concurrent blood thinners), multiple oral or topical pain medications, and home exercise program/physical therapy.? Patient has completed >6 weeks of guided home exercise program and/or formal physical therapy program without relief of their symptoms.? I have reviewed the imaging of the lumbar spine and no red flags were identified.? The Oswestry Disability Index was completed, and the patient scored a 20%.? repeat right L4-5 L5-S1 TFESI under fluoroscopy, prior injection provided at least 50% improvement in pain and functional ability for 3 months continue baclofen 5-10mg bid prn pain/spasms f/u after procedure
== END 2025-04-02 08:15 | disposition home or self-care (01) ==
LOC: PM 08:15
PROVIDERS: PCP Internal Medicine; Visit Provider Nurse Practitioner
DX: M48.062 Spinal stenosis, lumbar region with neurogenic claudication (principal); M46.1 Sacroiliitis, not elsewhere classified; M79.18 Myalgia, other site; M47.816 Spondylosis without myelopathy or radiculopathy, lumbar region
CPT/HCPCS: G0463

== ENCOUNTER 2025-04-06 08:48 | Day surgery (SDC) | payer MEDICARE, BC, SELFPAY ==
--- OUTSIDE RECORDS SUMMARY | 2025-04-06 08:56 | XMS_ITS | CCD ---
Author Organization 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 Name Role Phone Zahler, Quinn Unavailable Unavailable Zahler, Quinn Unavailable Unavailable Erliner, Quinn Unavailable Unavailable OVI [phone] UNKNOWN Unavailable Unavailable Zahler, Quinn Unavailable Unavailable Zahler, Quinn Unavailable Unavailable Kala, Quinn Unavailable Unavailable OVI [phone] UNKNOWN Unavailable Unavailable MD Brina Morrissey Attending [...] JESSICA ., DR ELIZABETH Cerna Attending Unavailable JESSIAC ., DR ELIZABETH Cerna Admitting Unavailable BALL, [...] Care Provider Hang KENNEDY, Ovi Attending Provider Brina Morrissey MD Attending Provider Ovi Mauricio DO E Primary Care Provider Hang KENNEDY, Ovi Primary Care Provider Hang KENNEDY, Ovi Attending Provider Ovi Mauricio DO Referring Provider Alina Ramirez APRN Attending Provider ZeinabDane powers DOle Unavailable Allergies Allergy ClassificationReported Allergen(s)Allergy TypeDate of OnsetReaction(s) Facility (1 source)MidazolamDrug Xikqgkm14-27-6295[facility] Repository (8 sources)Midazolam; Translations: [MIDAZOLAM]Drug Aiupahy25-64-1368Ajmokw [facility]itingUniversity [facility] Medications Current Medications MedicationDrug Class(es)DatesSig (Normalized)Sig (Original)acetaminophen 325 mg / HYDROcodone bitartrate 5 mg oral tablet (10 sources)Opioid AgonistStart: 67-96-9141egwu 1 tablet by mouth twice daily as needed for painHYDROcodone-Acetaminophen 5-325 MG 1 tablet Orally bid as needed for pain for 7 days Dec, Activeatorvastatin 40 mg oral tablet (20 sources)HMG-CoA Reductase InhibitorStart: 36-44-7212sojs 1 tablet by mouth at bedtimeatorvastatin (Lipitor) 40 MG tablet Take 40 mg by mouth at bedtime 05/08/2023 Activetake 1 tablet by mouth every twenty-four hoursAtorvastatin Calcium 40 MG 1 tablet Orally Once a day Activeciprofloxacin 3 mg/ml ophthalmic solution (5 sources)Quinolone AntimicrobialStart: 75-63-2141omgu 2 drop(s) into the eye(s) every four hoursCiprofloxacin HCl 0.3 % 2 drops Ophthalmic every 4 hours while awake for 7 days Jun, ActiveCpap (Continuous Positive Airway Pressure) unit (1 source)Start: 35-70-5416Imeh (Continuous Positive Airway Pressure) unit Active 0 .ROUTE February 18, 2025 12:00am As directed at night time [place] [facility] [place] (18 sources)CPAP Machine Activegabapentin 100 mg oral capsule (20 sources)Anti-epileptic AgentStart: 85-91-1646nprr 1 capsule by mouth once daily at bedtimeGabapentin 100 mg capsule Active 100 MG PO Daily at bedtime 90 90 0 December 11, 2024 2:28pm Complies with drug therapyStart: 05-11-2024 End: 59-33-2010Jnmdvtvbdb 100 mg capsule Discontinued 0 .ROUTE .COMPLEX 90 3 May 11, 2024 8:27pm December 08, 2024 10:37am TAKE 1 CAPSULE AT BEDTIME Start: 66-06-1050Jmmfhbxbqx 100 mg capsule Active 0 .ROUTE .COMPLEX 90 May 11, 2024 8:27pm TAKE 1 CAPSULE AT BEDTIMEStart: 07-03-2023 End: 56-67-6748bagu 1 capsule by mouth at bedtimeGabapentin 100 mg capsule Discontinued 100 MG PO July 03, 2023 1:00am May 11, 2024 8:27pm Fr eeTextSig: TAKE 1 CAPSULE AT BEDTIME; Note: Source Status: Start; Refills: 3; Qty: 90 Capsule; Provider: Hang Dior ( )hydroCHLOROthiazide 25 mg oral tablet (20 sources)Thiazide DiureticStart: 93-90-5874mcyf 1 tablet by mouth once daily Hydrochlorothiazide 25 mg tablet Active 25 MG PO Daily February 18, 2025 12:00am Complies with drug therapyStart: 83-84-5525Wdygaofnpgiucrdfecc 25 mg tablet Active 0 .ROUTE .COMPLEX May 11, 2024 8:27pm TAKE 1 TABLET EVERY DAYStart: 08-28-2023 End: 18-86-4175Etbnecarvitydmabptd 25 mg tablet Discontinued 0 .ROUTE .COMPLEX 90 May 11, 2024 8:27pm February 18, 2025 10:41am TAKE 1 TABLET EVERY DAYStart: 08-28-2023 End: 09-21-6623Udqvimdbmolfdkuffji 25 mg tablet Discontinued 0 .ROUTE .COMPLEX August 28, 2023 4:54pm May 11, 2024 8:27pm TAKE 1 TABLET EVERY DAY Start: 58-26-2677Tnqrhptyotxtjmddhza 25 mg tablet Active 0 .ROUTE .COMPLEX August 28, 2023 3:54pm TAKE 1 TABLET EVERY DAYStart: 08-28-2023 Hydrochlorothiazide Active 0 .ROUTE .COMPLEX August 28, 2023 4:54pm TAKE 1 TABLET EVERY DAYStart: 07-03-2023 End: 69-36-9908xybz 1 tablet by mouth once dailyHydrochlorothiazide 25 mg tablet Discontinued 25 MG PO Daily July 03, 2023 1:00am August 28, 2023 4:54pm FreeTextSig: TAKE 1 TABLET EVERY DAY; Note: Source Status: Taking; Provider: Hang Dior( )Hydrochlorothiazide-25 mg 25 mg (2 sources)take 1 tablet by mouth once dailyHydrochlorothiazide-25 mg 25 mg 1 tablet Orally Once a day Qaalpk31 hr isosorbide mononitrate 30 mg extended release oral tablet (20 sources)Nitrate VasodilatorStart: 21-22-4496cisl 1 tablet by mouth once daily, then take 1 tablet by mouth every twenty-four hoursisosorbide mononitrate ER (Imdur) 30 MG 24 hr tablet Take 30 mg by mouth Daily 05/08/2023 Activetake 1 tablet by mouth every twenty-four hoursIsosorbide Mononitrate ER 30 MG 1 tablet in the morning Orally Once a day Activelosartan potassium 50 mg oral tablet (20 sources)Angiotensin 2 Receptor BlockerStart: 74-38-6969Nspcxwtb 50 mg tablet Active 0 .ROUTE .COMPLEX 90 September 04, 2024 1:11pm TAKE 1 TABLET EVERY DAY Com plies with drug therapyStart: 07-03-2023 End: 49-79-8021zgkm 1 tablet by mouth once dailyLosartan 50 mg tablet Discontinued 50 MG PO Daily July 03, 2023 1:00am September 04, 2024 1:11pm FreeTe xtSig: TAKE 1 TABLET EVERY DAY; Note: Source Status: Taking; Provider: Hang Dior ( )24 hr metoprolol succinate 25 mg extended release oral tablet (20 sources)beta-Adrenergic BlockerStart: 06-19-2023 End: 97-35-8184ywto 1 tablet by mouth once dailymetoprolol succinate XL (Toprol- XL) 25 MG 24 hr tablet Take 25 mg by mouth Daily 06/19/2023 Activetake 1 tablet by mouth every twenty-four hoursMetoprolol Succinate ER 25 MG 1 tablet Orally Once a day Activeomeprazole 20 mg delayed release oral capsule (20 sources)Proton Pump InhibitorStart: 41-28-4737paub 1 capsule by mouth once dailyOmeprazole 20 mg capsule,delayed release(DR/EC) Active 20 MG PO Daily February 18, 2025 12:00am Complies with drug therapyStart: 03-22-2024 End: 23-40-9551Tlqxqmjpif 40 mg capsule,delayed release(DR/EC) Discontinued 0 .ROUTE .COMPLEX 90 March 22, 2024 12:46pm January 10, 2025 8:26am TAKE 1 CAPSULE ONE TIME DAILY 30 MINUTES BEFORE MORNING MEALStart: 07-03-2023 End: 07-16-8002gbly 1 capsule by mouth before mealtimeomeprazole (PriLOSEC) [address] capsule Indications: LPRD (laryngopharyngeal reflux disease) Take 1 c apsule (40 mg) by mouth in the morning. Take before meals. Do not crush or chew.. 90 capsule 08/15/2023 ActiveStart: 54-55-6405nsxg 1 capsule by mouth once dailyOmeprazole 40 MG 1 capsule 30 minutes before morning meal Orally Once a day Jun, Amkhan93 hr oxybutynin chloride 15 mg extended release oral tablet (20 sources)Cholinergic Muscarinic AntagonistStart: 12-10-2023 End: 24-40-2513Vqxihwiurg Chloride 15 mg tablet extended release 24hr Active 0 .ROUTE .COMPLEX 90 September 2855:30pm TAKE 1 TABLET EVERY DAY Complies with drug therapyStart: 48-79-2798cczilejzdj XL (Ditropan-XL) 15 MG 24 hr tablet 09/28/2023 ActiveStart: 07-03-2023 End: 18-18-4033gmyf 1 tablet by mouth once dailyOxybutynin Chloride [...] Inhibitor, Nonsteroidal Anti-inflammatory Drug Start: 07-19-2023 End: 95-70-2533Lrkxejm (Karon Low Dose Aspirin) 81 mg tablet,delayed release (DR/EC) Discontinued 81 MG PO Daily July 19, 2023 12:00am July 20, 2023 9:03amStart: 07-03-2023 End: 93-12-2232jnwf 1 tablet by mouth once dailyAspirin 81 [...] tablet (9 sources)gamma-Aminobutyric Acid-ergic AgonistStart: 01-21-2025 End: 10-21-3018Wmhthmug 10 mg tablet Discontinued MG PO January 21, 2025 12:00am February 18, 2025 10:33amtake 1 tablet by mouth every twelve hours Baclofen 10 MG 1 tablet as needed Orally Twice a day Not-Zyukry138 actuat budesonide 0.16 mg/actuat / formoterol fumarate 0.0045 mg/actuat metered dose inhaler (20 sources)Corticosteroid, beta2-Adrenergic AgonistStart: 07-19-2023 End: 18-12-0299adxo 1 puff(s) by inhalation twice dailyBudesonide-Formoterol (Symbicort) 160-4.5 mcg/actuation HFA aerosol inhaler Discontinued 2 PUFF INHA LATION Twice daily July 19, 2023 12:00am February 18, 2025 10:34amStart: 85-88-4355eyiq 2 puff(s) by inhalation twice dailySymbicort 160-4.5 MCG/ACT 2 puffs Inhalation Twice a day Jul, ActiveStart: 70-50-9419acka 2 puff(s) by inhalation twice dailySymbicort 160-4.5 MCG/ACT 2 puffs Inhalation Twice a day Jul, Activetake 2 puff(s) by inhalation in the morningbudesonide- formoterol (Symbicort) 160-4.5 MCG/ACT inhaler Inhale 2 puffs in the morning and 2 puffsbefore bedtime. Rinse mouth with water after use to reduce aftertaste and incidence of candidiasis.Do not swallow.. Activecholecalciferol 1.25 mg oral tablet (3 sources)Vitamin DStart: 12-08-2024 End: 83-34-7909gwet 1 tablet by mouth onceCholecalciferol (Vitamin D3) 1,250 mcg (50,000 unit) tablet Discontinued 1250 MCG PO Once December 08, 2024 12:00am February 18, 2025 10:34amclonazePAM 0.5 mg oral tablet (3 sources)BenzodiazepineStart: 12-08-2024 End: 05-96-8618bbyu 1 tablet by mouth once daily 30 minutes before bedtime Clonazepam 0.5 mg tablet Discontinued 0.5 MG PO Daily at bedtime 30 30 2 December 08, 2024 12:00am December 11, 2024 2:28pm Primary insomnia Primary insomnia administer 30 minutes before bedtimeclopidogrel 75 mg oral tablet (20 sources)P2Y12 Platelet InhibitorStart: 04-17-2023 End: 63-14-6146qdfl 1 tablet by mouth once dailyClopidogrel 75 mg tablet Discontinued 75 MG PO Daily 90 90 0 February 16, 2025 8:25am February 18, 2025 10:34amescitalopram 10 mg oral tablet (20 sources)Serotonin Reuptake InhibitorStart: 07-16-2023 End: 54-71-5208Cfbrtidmhncg Oxalate 10 mg tablet Discontinued 0 .ROUTE .COMPLEX 90 3 December 10, 2023 6:54am 2024 5:30pm TAKE 1 TABLET EVERY DAYStart: 07-03-2023 End: 23-74-0126tvef 1 tablet by mouth once dailyEscitalopram Oxalate 10 mg tablet Discontinued 10 MG PO Daily July 03, 2023 1:00am July 16, 2023 5:05pm FreeTextSig: TAKE 1 TABLET EVERY DAY; Note: Source Status: Taking; Provider: Hang Dior ( )famotidine 20 mg oral tablet (15 sources)Histamine-2 Receptor AntagonistStart: 11-12-2023 End: 79-57-3696yplk 1 tablet by mouth once daily at bedtimeFamotidine 20 mg tablet Discontinued 20 MG PO Daily at bedtime February 25, 2024 12:00am August 25, 2024 10:00amfexofenadine hydrochloride 180 mg oral tablet (3 sources)Histamine-1 Receptor AntagonistStart: 12-08-2024 End: 98-84-7462vsmj 1 tablet by mouth once dailyFexofenadine 180 [...] tablet (9 sources)Proton Pump InhibitorStart: 01-10-2025 End: 66-19-9985Uivzxbcdepuf 40 mg tablet,delayed release (DR/EC) Discontinued 40 MG PO Daily 90 90 3 January 10, 2025 12:00am February 18, 2025 10:34am take on an empty stomach, 30 minutes prior to bkfstStart: 11-24-3926creq 1 tablet by mouth every twenty-four hoursProtonix 40 mg 1 tablet Orally daily Sep, Not-TakingraNITIdine 300 mg oral tablet (7 sources)Histamine-2 Receptor AntagonistStart: 87-34-7396lfzy 1 tablet by mouth once dailyZantac 300 MG 1 tablet Orally daily Oct, Not-Taking triamcinolone acetonide 40 mg/ml injectable suspension (20 sources)CorticosteroidStart: 72-84-0438Gpufewd-40 Dec, 20 mgTylenol Arthritis Pain 650 MG (7 sources)Tylenol Arthritis Pain 650 MG as directed Orally Not-TakingTylenol Arthritis Pain 650 MG as directed Orally Active Problems Active Problems Problem ClassificationProblemDateDocumented DateEpisodic/ChronicAcute and unspecified renal failure (1 source)Acute kidney failure, unspecified; Translations: [Acute kidney failure, unspecified]40-11-5882FgcpstcgKjrzh bronchitis (1 source)Acute bronchitis; Translations: [Acute bronchitis due to other specified organisms]EpisodicAcute cerebrovascular disease (20 sources)Cerebral infarction; Translations: [Cerebral infarction, unspecified]Onset: 48-36-9458TpccgaoYrdlve (20 sources)Uncomplicated mild persistent asthma; Translations: [Mild persistent asthma, uncomplicated]Onset: 56-20-0321GwqeqztJaegtot dysrhythmias (9 sources)Paroxysmal atrial fibrillation; Translations: [Paroxysmal atrial fibrillation]Onset: 141927-66-6547GthteesVnnxzzn kidney disease (13 sources)Chronic kidney disease; Translations: [Chronic kidney disease, unspecified]50-33-3776TztpbfiBtsoevll atherosclerosis and other heart disease (20 sources)Coronary arteriosclerosis; Translations: [Atherosclerotic heart disease of resighini coronary artery without angina pectoris]Onset: 06-07-2022 ChronicComment on above:LHC: LAD 40-50%, LCx 20%, RCA 30% - eficiency and other anemia (8 sources)Anemia; Translations: [Anemia, unspecified]68-01-2301IomuorpaQffwyquk mellitus without complication (2 sources)Hyperglycemia; Translations: [Hyperglycemia, unspecified]09-03-2024 EpisodicDisorders of lipid metabolism (20 sources)Hypercholesterolemia; Translations: [Pure hypercholesterolemia, unspecified]Onset: 94-52-0933KfiyznyMahgufmvkv disorders (20 sources)Gastroesophageal reflux disease; Translations: [GERD [Gastroesophageal reflux disease]]Onset: 331234-38-7821XdddtyjXqlcpsyhmn disorders (2 sources)Esophageal disorders; Translations: [Gastro-esophageal reflux disease with esophagitis, without bleeding]Essential hypertension (20 sources)Essential hypertension; Translations: [Essential (primary) hypertension]Onset: 29-17-0310GwlhhovLwyalrbslcnsx symptoms and ill-defined conditions (1 source)Urinary incontinence; Translations: [Other urinary incontinence] ChronicGenitourinary symptoms and ill-defined conditions (1 source)Dysuria; Translations: [Dysuria]EpisodicHeart valve disorders (1 source)Rheumatic disorders of both mitral and tricuspid valves; Translations: [RHEUMATIC D/O MITRAL TRICUSPID VALV]Onset: 97-71-2951NpladqyWrwhpwkmtmizp and screening for infectious disease (1 source)Vaccination given; Translations: [Encounter for immunization]Episodic Inflammation; infection of eye (except that caused by tuberculosis or sexually transmitteddisease) (1 source)Unspecified acute conjunctivitis, bilateralEpisodicMalaise and fatigue (2 sources)Chronic fatigue, unspecified; Translations: [Chronic fatigue syndrome]Onset: 37-31-6977KnjiagzRloteorlnp disorders (1 source)Primary ovarian failure; Translations: [Other primary ovarian failure] Onset: 67-46-7677MplqojnJkvaygzbvaoge mental health disorders (16 sources)Primary insomnia; Translations: [Primary insomnia]Onset: 10-08-2023 05-18-9763QrdoadxPqfj disorders (20 sources)Recurrent major depression in full remission; Translations: [Major depressive disorder, recurrent, in full remission]Onset: 51-36-7772Ftbrlhx Mycoses (1 source)Candidiasis of skin and nails; Translations: [Candidiasis of skin and nail]EpisodicNutritional deficiencies (1 source)Vitamin D deficiency; Translations: [Vitamin D deficiency, unspecified]Onset: 34-63-0325RrqbpxvVrudtrwisscdkw (20 sources)Arthritis of bilateral first carpometacarpal joints; Translations: [Bilateral primary osteoarthritis of first carpometacarpal joints]Onset: 12-14-2015 Resolved: 20-62-5253OxmmrxqHimye aftercare (1 source)Long-term current use of drug therapy; Translations: [Other half-way (current) drug therapy]EpisodicOther and ill-defined cerebrovascular disease (20 sources)Cerebral atherosclerosis; Translations: [Cerebral atherosclerosis] Onset: 939291-91-9881UslujmtEglff and ill-defined cerebrovascular disease (7 sources)Cerebral atherosclerosis; Translations: [Cerebral atherosclerosis] ChronicOther circulatory disease (1 source)H/O: cardiovascular disease; Translations: [Personal history of other diseases of the circulatory system]EpisodicOther circulatory disease (1 source)Other specified symptoms and signs involving the circulatory and respiratory systemsEpisodicOther congenital anomalies (1 source)Congenital spondylolysis of lumbosacral region; Translations: [Congenital spondylolysis, lumbosacral region]Onset: 05-94-1141LivwbjkPxoig connective tissue disease (4 sources)Pain in left hand; Translations: [Pain in limb]Onset: 12-21-2021 Resolved: 11-70-6246KlnnntsxBomza connective tissue disease (4 sources)Pain in right hand; Translations: [Pain in limb]Onset: 12-21-2021 Resolved: 70-21-7336FflzqgbkJfmea connective tissue disease (2 sources)Other symptoms and signs involving the musculoskeletal systemEpisodic Other connective tissue disease (2 sources)Cramp and spasmEpisodicOther connective tissue disease (6 sources)Hand pain; Translations: [Pain in left hand]62-47-4023XqmaxxcyVjtew diseases of bladder and urethra (20 sources)Overactive bladder; Translations: [Overactive bladder]Onset: 390321-68-4116TrqwtrnEheaf diseases of bladder and urethra (1 source)Overactive bladderChronicOther diseases of kidney and ureters (7 sources)Renal mass; Translations: [Other specified disorders of kidney and ureter]43-44-7273SpxojyzPvmbpla on above:CT: hypodense nodule left nodule - [...] liver enzymes level; Translations: [High liver transaminase level]19-90-7605EisgqczwEloct lower respiratory disease (19 sources)Cough; Translations: [Cough]EpisodicOther lower respiratory disease (14 sources)Nodule of lung; Translations: [Solitary pulmonary nodule]Episodic Other lower respiratory disease (2 sources)Solitary pulmonary noduleEpisodicOther lower respiratory disease (17 sources)Other nonspecific abnormal finding of lung field; Translations: [Ground glass opacity present on imaging of lung]Onset: 12-14-4705YuvarbcdGufzi lower respiratory disease (8 sources)Pleuritic pain; Translations: [Pleurodynia]62-88-3696ObmkrhrkAuwym lower respiratory disease (2 sources)Pleurodynia; Translations: [Painful respiration]11-47-8842Fwjfvgkt Other lower respiratory disease (2 sources)Posterior rhinorrhea; Translations: [Upper airway cough syndrome] 53-32-9983KtvdawogGhnmu lower respiratory disease (2 sources)Dyspnea on exertion; Translations: [Shortness of breath]02-18-2025 EpisodicOther nervous system disorders (20 sources)Carpal tunnel syndrome of right wrist; Translations: [Carpal tunnel syndrome, right upper limb]82-50-0832DgymlloVzjrc nervous system disorders (20 sources)Carpal tunnel syndrome of left wrist; Translations: [Carpal tunnel syndrome, left upper limb]47-55-2396TiqczrlZekns nervous system disorders (9 sources)Carpal tunnel syndrome, right upper limb; Translations: [Carpal tunnel syndrome]Onset: 12-21-2021 Resolved: 24-45-1433TokewglTbnvf nervous system disorders (9 sources)Carpal tunnel syndrome, left upper limb; Translations: [Carpal tunnel syndrome]Onset: 12-21-2021 Resolved: 83-91-2659TonkbhmHpnoz nervous system disorders (1 source)Other chronic pain; Translations: [OTHER CHRONIC PAIN]Onset: 86-80-5707BqqerokInwiv nervous system disorders (2 sources)Anesthesia of skinOnset: 12-21-2021 Resolved: 99-67-4390JzoaoxxaTldgy nervous system disorders (1 source)Paresthesia; Translations: [Paresthesia of skin]EpisodicOther nutritional; endocrine; and metabolic disorders (3 sources)Hypercalcemia; Translations: [Hypercalcemia]Onset: 07-21-2017 00-29-3363WuhgtjzKxopi nutritional; endocrine; and metabolic disorders (1 source)Simple obesity ; Translations: [Other obesity due to excess calories] Onset: 48-99-6531BarlmylShkea nutritional; endocrine; and metabolic disorders (2 sources)Body mass index 30+ - obesity; Translations: [Body mass index 31.0- 31.9, adult]Onset: 34-20-9770NgbtrrsPvbgr nutritional; endocrine; and metabolic disorders (4 sources)Obesity, unspecified; Translations: [Obesity, unspecified]02-25-2024 ChronicOther upper respiratory disease (8 sources)Hoarse; Translations: [Dysphonia]76-07-9211DccznrijQmanqlwza (7 sources)Right hemiparesis; Translations: [Hemiplegia, unspecified affecting right dominant side]Onset: 112524-63-6097JxeonnvDwmk-; endo-; and myocarditis; cardiomyopathy (except that caused by tuberculosis or sexually transmitted disease) (1 source)Acute pericarditis; Translations: [Acute pericarditis, unspecified] EpisodicPneumonia (except that caused by tuberculosis or sexually transmitted disease) (8 sources)Pneumonia; Translations: [Pneumonia, unspecified organism]03-15-2024 EpisodicPulmonary heart disease (20 sources)Secondary pulmonary hypertension; Translations: [Other secondary pulmonary hypertension]Onset: 136220-79-7034CvthgxjHgvtwkby codes; unclassified (20 sources)Obstructive sleep apnea syndrome; Translations: [Obstructive sleep apnea (adult) (pediatric)]Onset: 644667-55-3072SwkjxyyJhomvyox codes; unclassified (9 sources)Obstructive sleep apnea (adult) (pediatric); Translations: [Obstructive sleep apnea (adult)(pediatric)]ChronicResidual codes; unclassified (13 sources)Hypersomnia; Translations: [Hypersomnia, unspecified]Onset: 818949-07-9640TqcgrutSbmtzrht codes; unclassified (1 source)Postmenopausal state; Translations: [Asymptomatic menopausal state] EpisodicSpondylosis; intervertebral disc disorders; other back problems (20 sources)Lumbar spondylosis; Translations: [Spondylosis without myelopathy or radiculopathy, lumbar region]Onset: 21-60-3850IlxtmnyOacmhdk on above:MRI: L1-2 mod spinal canal stenosis, L2-3 mod right foraminal stenosis, L3-4 mod right foraminal stenosis, L4-5 mod B/L foraminal stenosis, L5S1 mod left foraminal stenosis - 11/2024Unclassified (4 sources)LOW BACK PAIN, UNSPECIFIED; Translations: [LOW BACK PAIN, UNSPECIFIED]Onset: 05-51-8257Susdqvkidabs (1 source)CONTACT W/AND (SUSP) EXPOS COVID-19; Translations: [CONTACT W/AND (SUSP) EXPOS COVID-19]Onset: 81-73-7486Wyldzjgcaxyf (1 source)GASTR-ESOPH RFLX DS ESPHGTS W/O BLD; Translations: [GASTR-ESOPH RFLX DS ESPHGTS W/O BLD]Onset: 14-96-2889Wxbiuasjfzgo (1 source)Other ventricular tachycardia; Translations: [Other ventricular tachycardia]Viral infection (1 source)Herpes zoster with complication; Translations: [Zoster with other complications]EpisodicViral infection (1 source)Disease caused by 2019-nCoV; Translations: [COVID-19] Past or Other Problems Problem ClassificationProblemDateDocumented DateEpisodic/ChronicConditions associated with dizziness or vertigo (1 source)Benign paroxysmal positional vertigo; Translations: [Benign paroxysmal vertigo, unspecified ear] Resolved: 09-78-6656VlxfaohjFxkxwrr and fatigue (1 source)Malaise and fatigue; Translations: [Other malaise and fatigue]Onset: 82-06-4677XvxkzamhVbeaicfbtml chest pain (7 sources)Chest pain, unspecified; Translations: [Chest pain]Onset: 04-28-2022 EpisodicOther aftercare (1 source)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; Translations: [OTH CHEMICAL MILLING PROCESSOR CURRENT DRUG THERAPY]Onset: 78-04-6836XgpwieurCnxxj aftercare (7 sources)Long-term current use of inhaled steroid; Translations: [terminal carman (current) use of 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]Onset: 398460-44-4276RxahomgkGfenr gastrointestinal disorders (20 sources)Dysphagia; Translations: [Dysphagia]Onset: 088899-91-7356 EpisodicOther infections; including parasitic (7 sources)Personal history of other infectious and parasitic diseases; Translations: [History of COVID-19]Onset: 07-26-2022 Resolved: 546180-03-7590VeblmqytBlgmv lower respiratory disease (20 sources)Multiple nodules of lung; Translations: [Other nonspecific abnormal finding of lung field]Onset: 977654-22-6781SojpdzsoIvtzbqf on above:CT: 10cm RUL - 09/2022No further imaging due to patient decisionCT: 10cm RUL - 09/2022, CT: 5mm (2), 7mm RUL - 04/2024No further imaging due to patient decision Other lower respiratory disease (11 sources)Chronic cough; Translations: [Chronic cough]Onset: 07-19-2022 EpisodicOther lower respiratory disease (5 sources)Other forms of dyspnea; Translations: [OTHER FORMS OF DYSPNEA]Onset: 07-42-9422RchclrvdCxsly lower respiratory disease (8 sources)Dyspnea; Translations: [Other forms of dyspnea]Onset: 07-26-2022 Resolved: 337071-86-5983YiybvymnCwggh lower respiratory disease (9 sources)Hypoxia; Translations: [Hypoxemia]Onset: 126975-81-4342Vstgerae Other non-traumatic joint disorders (1 source)Arthralgia of the pelvic region and thigh; Translations: [Pain in joint, pelvic region and thigh]Onset: 88-54-5889SojawthrJuzet non-traumatic joint disorders (1 source)Arthralgia of the lower leg; Translations: [Pain in joint, lower leg] Onset: 06-02-9224JqbosyowIlcar nutritional; endocrine; and metabolic disorders (19 sources)Obesity; Translations: [Obesity, unspecified]Onset: 01-05-2023 Resolved: [id number] nutritional; endocrine; and metabolic disorders (1 source)Overweight; Translations: [Overweight]Onset: 56-25-7240UsgudggeMvkec nutritional; endocrine; and metabolic disorders (1 source)Body mass index 25-29 - overweight; Translations: [Body mass index 29.0-29.9, adult]Onset: 03-13-5633OorlyokcQgsjd screening for suspected conditions (not mental disorders or infectious disease) (8 sources)Abnormal findings on diagnostic imaging of other specified body structures; Translations: [Imaging of thorax abnormal]Onset: 07-22-2022 Resolved: [id number] screening for suspected conditions (not mental disorders or infectious disease) (17 sources)Encounter for screening mammogram for malignant neoplasm of breast; Translations: [Encounter for screening for diseases of the blood and blood- forming organs and certain disorders involving the immune mechanism]Onset: 03-16-2017 Resolved: 28-72-2355NguqbukqPfgulmcd codes; unclassified (1 source)Requires influenza virus vaccination; Translations: [Need for prophylactic vaccination and inoculation, Influenza]Onset: 55-50-3028Fegqapdv Residual codes; unclassified (9 sources)Sleep deprivation; Translations: [Sleep deprivation]Onset: 10-08-2023 44-37-5166NidhfaofTtaoxxgwllg; intervertebral disc disorders; other back problems (9 sources)Radiculopathy, lumbar region; Translations: [Spinal stenosis, lumbar region without neurogenic claudication]Onset: 92-86-1991QonpcqamPhdimzoitxgf (13 sources)NSVT (nonsustained ventricular tachycardia); Translations: [NSVT (nonsustained ventricular tachycardia)]Unclassified (1 source)LOW BACK PAIN, UNSPECIFIED; Translations: [LOW BACK PAIN, UNSPECIFIED] Onset: 07-20-2022 Results Test NameValueInterpretationReference RangeFacilityNo Panel InformationOrdered By: Ovi Mauricio on [id number] Vitamin D Total28.3 ng/mLUniversity Hospitals Beachwood Medical CenterComment on above:<20 ng/mL Vit D wotwhsbll20-<30 ng/mL Vit D nswjidsmkcmx49-233 ng/mL Vit D sufficient>100 ng/mL Potential Toxicity Glucose mean value [Mass/volume] in Blood Estimated from glycated hemoglobin Ordered By: Ovi Mauricio on 23-19-5607Cfglmoz glucose Estimated from glycated hemoglobin (Bld) [Mass/Vol]123 mg/dLUniversity Hospitals Beachwood Medical CenterHemoglobin A1c percentageOrdered By: Ovi Mauricio on 33-95-4445QxG0h (Bld) [Mass fraction] 5.9 %4.5-6.2FRiverside Methodist HospitalComment on above:ADA RECOMMENDED LIMIT 4.0 - 6.0ADA THERAPEUTIC TARGET < 7.0ACTION SUGGESTED> 7.0Laboratory - Chemistry and Chemistry - challengeOrdered By: Ovi Mauricio on 10-23-2024 Albumin [Mass/Vol]3.3 g/dLLow3.4-5.0[facility] Medical CenterCalcium [Mass/Vol]10.0 mg/dL8.5-10.1FRiverside Methodist HospitalNo Panel InformationOrdered By: Ovi Mauricio on [id number]-Ijyqqhq Vitamin D Total26.8 ng/mLUniversity Hospitals Beachwood Medical CenterComment on above:<20 ng/mL Vit D -<30 ng/mL Vit D -839 ng/mL Vit D sufficient>100 ng/mL Potential ToxicityParathyroid Hormone (Intact)43 pg/wI07-30BzvqiryahUniversity Hospitals Beachwood Medical CenterComment on above:Performed at: - [facility] [id number] Director: Davie Montez PhD, Phone: [phone] Phosphorus Level3.0 mg/dL2.6-4.7FRiverside Methodist HospitalEstimated glomerular filtration rate (GFR) non- Americanon 59-20-2616PHG/1.73 sq M.predicted among non-blacks MDRD (S/P/Bld) [Vol rate/Area]51 mL/min/{1.73_m2} Low>=60 mL/min/1.73m [address] [place], [place] [address]Laboratory - Chemistry and Chemistry - challengeon 83-17-5898Kltiqdbhny [Mass/Vol]1.04 mg/dLHigh 0.55-1.02[facility] Medical CenterGFR/1.73 sq M.predicted MDRD (S/P/Bld) [Vol rate/Area]mL/min/{1.73_m2}>=60 mL/min/1.73m [address] [place], [place] [address]Basophils Auto (Bld) [#/Vol]on 86-00-2288Nrqbgfmdv (Bld) [#/Vol]0.0 10 3/uL0.0-0.1FRiverside Methodist HospitalBasophils/100 WBC Auto (Bld)on 25-84-4015Nzgseykuf/100 WBC (Bld)0.1 %Low0.2-2.0[facility] CenterCholesterol in LDL Calc [Mass/Vol]on 92-62-0618Epxywoopbsi in LDL [Mass/Vol]42.0 mg/dLUniversity Hospitals Beachwood Medical CenterComment on above:<100 mg/dl CFDJOWW149-445 mg/dl NEAR OR ABOVE PYPXPOZ845-580 mg/dl BORDERLINE ZHDP378-834 mg/dl HIGH>190 mg/dl VERY HIGHCholesterol in VLDL Calc [Mass/Vol]on 09-03-2024 Cholesterol in VLDL [Mass/Vol]14.4 mg/dLUniversity Hospitals Beachwood Medical Center Eosinophils/100 WBC Auto (Bld)on 98-29-1839Egprhggveka/100 WBC (Bld)0.1 %Low 0.9-7.0[facility] CenterErythrocyte distribution width Auto (RBC) [Ratio]on 85-64-1737Jlsanfzeskc distribution width (RBC) [Ratio]13.2 % 11.0-15.0[facility] CenterEstimated glomerular filtration rate (GFR) non- Americanon 70-90-3995DEF/1.73 sq M.predicted among non-blacks MDRD (S/P/Bld) [Vol rate/Area]39 mL/min/{1.73_m2}Low>=60 mL/min/1.73m 2FRiverside Methodist HospitalGlobulin Calc (S) [Mass/Vol]on 31-52-7156Tzlospnr (S) [Mass/Vol]3.3 g/dLUniversity Hospitals Beachwood Medical CenterHematocrit Auto (Bld) [Volume fraction]on 07-93-7516Waalmmzjku (Bld) [Volume fraction]37.6 %36.0-48.0 [facility] CenterHemoglobin [Mass/volume] in Bloodon 09-03-2024 Hemoglobin (Bld) [Mass/Vol]12.8 g/dL12.0-16.0[facility] Laboratory - Chemistry and Chemistry - challengeon 34-74-2558[place] [Mass/Vol] 3.7 g/dL3.4-5.0[facility] CenterALP [Catalytic activity/Vol]75 U/A58-550DdimsnplfUniversity Hospitals Beachwood Medical CenterALT [Catalytic activity/Vol]21 U/L 14-59[facility] CenterAST [Catalytic activity/Vol]13 U/KNln77-43 [facility] CenterBilirubin [Mass/Vol]0.7 mg/dL0.2-1.0[facility] CenterCalcium [Mass/Vol]10.6 mg/dLHigh8.5-10.1FRiverside Methodist HospitalChloride [Moles/Vol]103 mmol/E04-441QrzbfffpqUniversity Hospitals Beachwood Medical CenterCholesterol [Mass/Vol]129 mg/dL<=200[facility] CenterCholesterol in HDL [Mass/Vol]73 mg/vZJhfq04-23OigafeudmUniversity Hospitals Beachwood Medical CenterComment on above:> or =60 mg/dl - LOW CARDIOVASCULAR RISK<40 mg/dl - HIGH CARDIOVASCULAR RISKCO2 [Moles/Vol]32.4 mmol/LHigh21.0-32.0[facility] CenterCreatinine [Mass/Vol]1.32 mg/dLHigh0.55-1.02[facility] CenterGFR/1.73 sq M.predicted MDRD (S/P/Bld) [Vol rate/Area]47 mL/min/{1.73_m2}Low>=60 mL/min/1.73m 2FRiverside Methodist HospitalGlucose [Mass/Vol]149 mg/kKValv29-556GczdgmrfdUniversity Hospitals Beachwood Medical CenterPotassium [Moles/Vol]3.6 mmol/L3.5-5.1FRiverside Methodist HospitalProtein [Mass/Vol] 7.0 g/dL6.4-8.2FSouthern Ohio Medical Centerodium [Moles/Vol]139 mmol/L 136-145[facility] CenterTriglyceride [Mass/Vol]72 mg/dL<=150 [facility] CenterUrea nitrogen [Mass/Vol]20.0 mg/dLHigh7.0-18.0 [facility] CenterUrea nitrogen/Creatinine [Mass ratio]15.2 mg/mg [facility] CenterLaboratory - Hematology and Cell countson 54-70-3054Exnozgmr granulocytes/100 WBC (Bld)0.4 %0.0-0.5FRiverside Methodist HospitalLeukocytes [#/volume] corrected for nucleated erythrocytes in Blood by Automated counon 66-33-2060XMC corrected for nucl RBC Auto (Bld) [#/Vol]10.8 10 3/uL4.0-11.0[facility] Medical CenterLymphocytes Auto (Bld) [#/Vol]on 13-32-1910Qarjcfjcglv (Bld) [#/Vol]1.3 10 3/uL1.2-3.8[facility] CenterLymphocytes/100 WBC Auto (Bld)on 09-03-2024 Lymphocytes/100 WBC (Bld)11.6 %Low20.5-60.0[facility] CenterMCH Auto (RBC) [Entitic mass]on 24-52-5803KWE (RBC) [Entitic mass]30.2 pg26.7-34.0 [facility] CenterMCHC Auto (RBC) [Mass/Vol]on 88-98-0563WKEE (RBC) [Mass/Vol]34.0 g/dL29.9-35.2FRiverside Methodist HospitalMCV Auto (RBC) [Entitic vol]on 01-63-9514HYN (RBC) [Entitic vol]88.7 fL81.0-99.0[facility] CenterMonocytes Auto (Bld) [#/Vol]on 11-72-6659Xmpxphtbe (Bld) [#/Vol]0.4 10 3/uL0.3-0.8[facility] CenterMonocytes/100 WBC Auto (Bld)on 02-56-1801Hnklawysc/100 WBC (Bld)3.8 %1.7-12.0[facility] Medical CenterNeutrophils Auto (Bld) [#/Vol]on 44-48-3049Kxuszrodhtx (Bld) [#/Vol]9.1 10 3/uLHigh1.4-6.5FRiverside Methodist HospitalNeutrophils/100 WBC Auto (Bld)on 95-66-1319Weoxwblxbip/100 WBC (Bld)84.0 %High43.0-75.0[facility] CenterNo Panel Informationon 37-58-3790Tomeofpesvj # (Auto)0.0 10 3/uL0.0-0.7FRiverside Methodist HospitalImmature Granulocyte # (Auto) 0.04 10 3/uLHigh0.00-0.03[facility] Medical CenterPlatelet mean volume Auto (Bld) [Entitic vol]on 30-20-7502Euoyciip mean volume (Bld) [Entitic vol] 11.8 fL9.5-13.5FRiverside Methodist HospitalPlatelets Auto (Bld) [#/Vol]on 00-44-0299Vsgkpgiqp (Bld) [#/Vol]213 10 3/oG854-937IwrtsrzucUniversity Hospitals Beachwood Medical CenterRBC Auto (Bld) [#/Vol]on 89-57-8267FNT (Bld) [#/Vol]4.24 10 6/uL4.20-5.40 [facility] Hospitalerum or plasma albumin/globulin mass ratioon 63-91-9551Ichwojh/Globulin [Mass ratio]1.1 {ratio}[facility] Hospitalerum or plasma anion gap determinationon 31-50-6969Gwdhi gap [Moles/Vol] 7.2 mmol/LFSouthern Ohio Medical Centererum or plasma total cholesterol/high density lipoprotein (HDL) cholesterol mass gavin 09-03-2024 Cholesterol.total/Cholesterol in HDL [Mass ratio]1.8 {ratio}[facility] CenterComment on above:3.3 - 4.4 LOW RISK4.4 - 7.1 AVERAGE RISK7.1 - 11.0 MODERATE RISK>11.0 HIGH RISKBasophils Auto (Bld) [#/Vol]on 03-09-2024 Basophils (Bld) [#/Vol]Automated basophil count0.0-0.1FRiverside Methodist HospitalBasophils/100 WBC Auto (Bld)on 69-11-4368Itkbjylfo/100 WBC (Bld)Automated basophil %Low0.2-2.0[facility] CenterEosinophils/100 WBC Auto (Bld)on 59-80-0967Tokrpoemsju/100 WBC (Bld)Automated eosinophil %Low0.9-7.0 [facility] CenterErythrocyte distribution width Auto (RBC) [Ratio]on 09-91-9834Qzqlsnofops distribution width (RBC) [Ratio]Erythrocyte distribution width [Ratio] by Automated count11.0-15.0[facility] CenterEstimated glomerular filtration rate (GFR) non- Americanon 66-26-6781NWJ/1.73 sq M.predicted among non-blacks MDRD (S/P/Bld) [Vol rate/Area]Estimated glomerular filtration rate (GFR) non- AmericanLow>=60 mL/min/1.73m 2FRiverside Methodist HospitalHematocrit Auto (Bld) [Volume fraction]on 72-29-6987Nzppfqolta (Bld) [Volume fraction]Hematocrit [Volume Fraction] of Blood by Automated meifwXaf06.0-48.0[facility] CenterHemoglobin [Mass/volume] in Bloodon 81-21-3684Rzmuaxlcll (Bld) [Mass/Vol] Hemoglobin [Mass/volume] in YlxeqCea67.0-16.0[facility] Laboratory - Chemistry and Chemistry - challengeon 19-23-8596Tyxlygi [Mass/Vol] 8.9 mg/dL8.5-10.1FRiverside Methodist HospitalChloride [Moles/Vol]103 mmol/L 98-107[facility] CenterCO2 [Moles/Vol]21.8 mmol/L21.0-32.0 [facility] CenterCreatinine [Mass/Vol]1.74 mg/dLHigh0.55-1.02 [facility] CenterGFR/1.73 sq M.predicted MDRD (S/P/Bld) [Vol rate/Area]34 mL/min/{1.73_m2}Low>=60 mL/min/1.73m 2FRiverside Methodist HospitalGlucose [Mass/Vol]164 mg/wLPgrk21-844FmtpxwrltUniversity Hospitals Beachwood Medical Center Potassium [Moles/Vol]2.9 mmol/LCritically low3.5-5.1FRiverside Methodist HospitalComment on above:RESULTS CALLED TO JASON VAZQUEZ RN @BY Cecile San tw4768Xdpomf [Moles/Vol]141 mmol/V763-347KgdfajfjkUniversity Hospitals Beachwood Medical CenterUrea nitrogen [Mass/Vol]21.0 mg/dLHigh7.0-18.0[facility] CenterUrea nitrogen/Creatinine [Mass ratio]12.1 mg/mgUniversity Hospitals Beachwood [facility] Center Laboratory - Hematology and Cell countson 47-66-9823Wuulfwso granulocytes/100 WBC (Bld)0.7 %High0.0-0.5FRiverside Methodist HospitalLeukocytes [#/volume] corrected for nucleated erythrocytes in Blood by Automated counon 13-96-7641ATX corrected for nucl RBC Auto (Bld) [#/Vol]Leukocytes [#/volume] corrected for nucleated erythrocytes in Blood by Automated coun4.0-11.0[facility] CenterLymphocytes Auto (Bld) [#/Vol]on 16-76-5920Lsbsarrxwap (Bld) [#/Vol]Lymphocytes [#/volume] in Blood by Automated count1.2-3.8[facility] CenterLymphocytes/100 WBC Auto (Bld)on 03-09-2024 Lymphocytes/100 WBC (Bld)Lymphocytes/100 leukocytes in Blood by Automated count Low20.5-60.0[facility] CenterMCH Auto (RBC) [Entitic mass]on 77-98-7507ZGA (RBC) [Entitic mass]MCH [Entitic mass] by Automated count26.7-34.0 [facility] CenterMCHC Auto (RBC) [Mass/Vol]on 26-88-4545RVNO (RBC) [Mass/Vol]MCHC [Mass/volume] by Automated count29.9-35.2FBucyrus Community HospitalV Auto (RBC) [Entitic vol]on 74-44-0325OPR (RBC) [Entitic vol] MCV [Entitic volume] by Automated count81.0-99.0[facility] CenterMonocytes Auto (Bld) [#/Vol]on 64-27-3706Twlxngupk (Bld) [#/Vol]Automated blood monocyte count0.3-0.8[facility] CenterMonocytes/100 WBC Auto (Bld)on 71-77-8899Tynsylcvm/100 WBC (Bld)Automated monocyte %1.7-12.0 [facility] CenterNeutrophils Auto (Bld) [#/Vol]on 03-09-2024 Neutrophils (Bld) [#/Vol]Neutrophils [#/volume] in Blood by Automated countHigh 1.4-6.5FRiverside Methodist HospitalNeutrophils/100 WBC Auto (Bld)on 82-58-2019Zjtigghnvuz/100 WBC (Bld)Automated neutrophil %High43.0-75.0[facility] CenterNo Panel Informationon 07-65-5858Fzxrptotjns # (Auto)0.0 10 3/uL0.0-0.7FRiverside Methodist HospitalImmature Granulocyte # (Auto)0.06 10 3/uLHigh0.00-0.03[facility] CenterPlatelet mean volume Auto (Bld) [Entitic vol]on 49-38-6021Jlikczjj mean volume (Bld) [Entitic vol]Platelet mean volume [Entitic volume] in Blood by Automated count9.5-13.5FRiverside Methodist HospitalPlatelets Auto (Bld) [#/Vol]on 24-04-3881Msdgqixxf (Bld) [#/Vol]Platelets [#/volume] in Blood by Automated -652PqbbxtythUniversity Hospitals Beachwood Medical CenterRBC Auto (Bld) [#/Vol]on 18-76-0386NXN (Bld) [#/Vol]Erythrocytes [#/volume] in Blood by Automated countLow4.20-5.40[facility] Hospitalerum or plasma anion gap determinationon 27-46-6093Hlaao gap [Moles/Vol] Serum or plasma anion gap determinationUniversity Hospitals Beachwood Medical Center Basophils Auto (Bld) [#/Vol]on 60-51-6279Hqgsvwrvk (Bld) [#/Vol]Automated basophil count0.0-0.1FRiverside Methodist HospitalBasophils/100 WBC Auto (Bld)on 54-95-3417Mfwofmsir/100 WBC (Bld)Automated basophil %0.2-2.0[facility] CenterEosinophils/100 WBC Auto (Bld)on 03-08-2024 Eosinophils/100 WBC (Bld)Automated eosinophil %0.9-7.0[facility] CenterErythrocyte distribution width Auto (RBC) [Ratio]on 61-59-3453Tabzagfclra distribution width (RBC) [Ratio]Erythrocyte distribution width [Ratio] by Automated count11.0-15.0[facility] CenterEstimated glomerular filtration rate (GFR) non- Americanon 32-27-0427ZRM/1.73 sq M.predicted among non-blacks MDRD (S/P/Bld) [Vol rate/Area]Estimated glomerular filtration rate (GFR) non- AmericanLow>=60 mL/min/1.73m 2FRiverside Methodist HospitalFibrin D-dimer [Presence] in Platelet poor plasma by Latex agglutinationon 00-99-5184Lboydt D-dimer LA Ql (PPP)Fibrin D-dimer [Presence] in Platelet poor plasma by Latex agglutinationCritically high<=0.59[facility] CenterComment on above:RESULTS CALLED TO CHONG Villeda RN [...] therapy, stress, and generalizedhospitalization.Globulin Calc (S) [Mass/Vol]on 62-68-1187Tujrkxhm (S) [Mass/Vol]Serum globulin measurement by calculation (mass/volume)[facility] CenterHematocrit Auto (Bld) [Volume fraction]on 03-08-2024 Hematocrit (Bld) [Volume fraction]Hematocrit [Volume Fraction] of Blood by Automated ewvuxTab17.0-48.0[facility] CenterHemoglobin [Mass/volume] in Bloodon 76-61-5121Kqwtomajsg (Bld) [Mass/Vol]Hemoglobin [Mass/volume] in CedxyGsq36.0-16.0[facility] CenterLaboratory - Chemistry and Chemistry - challengeon 14-93-0998Aonpulh [Mass/Vol]3.2 g/dLLow 3.4-5.0[facility] CenterALP [Catalytic activity/Vol]89 U/L46-116 [facility] CenterALT [Catalytic activity/Vol]156 U/CHvoh64-81 [facility] CenterAST [Catalytic activity/Vol]178 U/XRohw71-22 [facility] CenterBilirubin [Mass/Vol]1.4 mg/dLHigh0.2-1.0 [facility] CenterBilirubin.direct [Mass/Vol]0.4 mg/dLHigh0.0-0.2 [facility] CenterLactate [Moles/Vol]1.2 mmol/L0.4-2.0[facility] CenterLipase [Catalytic activity/Vol]26.0 U/L16.0-77.0[facility] CenterMagnesium [Mass/Vol]1.9 mg/dL1.8-2.4FRiverside Methodist HospitalNatriuretic peptide B (Bld) [Mass/Vol]697.0 pg/mL<=1800.0[facility] CenterProtein [Mass/Vol]6.3 g/dLLow6.4-8.2FRiverside Methodist HospitalBilirubin Ql (U)NegativeNEGATIVEUniversity Hospitals Beachwood Medical Center Glucose (U) [Mass/Vol]NegativeNEGATIVEUniversity Hospitals Beachwood Medical CenterKetones Ql (U)NegativeNEGATIVEUniversity Hospitals Beachwood Medical CenterpH (U)7.0 [pH]5.0-9.0 [facility] Hospitalpecific gravity (U) [Rel density]1.010 1.005-1.025[facility] CenterUrobilinogen Qn (U)1.0 {Nora'U}/dL0.2-1.0[facility] CenterCalcium [Mass/Vol]9.0 mg/dL8.5-10.1FRiverside Methodist HospitalChloride [Moles/Vol]106 mmol/L 98-107[facility] CenterCO2 [Moles/Vol]29.0 mmol/L21.0-32.0 [facility] CenterCreatinine [Mass/Vol]1.25 mg/dLHigh0.55-1.02 [facility] CenterGFR/1.73 sq M.predicted MDRD (S/P/Bld) [Vol rate/Area]50 mL/min/{1.73_m2}Low>=60 mL/min/1.73m 2FRiverside Methodist HospitalGlucose [Mass/Vol]111 mg/iRMbai88-411AsryahoirUniversity Hospitals Beachwood Medical Center Potassium [Moles/Vol]3.1 mmol/LLow3.5-5.1FSouthern Ohio Medical Centerodium [Moles/Vol]145 mmol/M753-101KlakflnrqUniversity Hospitals Beachwood Medical CenterUrea nitrogen [Mass/Vol]18.0 mg/dL7.0-18.0[facility] CenterUrea nitrogen/Creatinine [Mass ratio]14.4 mg/mgUniversity Hospitals Beachwood Medical Center Laboratory - Hematology and Cell countson 08-50-5708Puvhbtob granulocytes/100 WBC (Bld)0.3 %0.0-0.5FRiverside Methodist HospitalLaboratory - Microbiology and Antimicrobial susceptibilityon 45-34-5797EODP-CoV-2 (COVID-19) RNA RADHA+probe Ql (Unsp spec)NegativeNEGEast Liverpool City HospitalComment on above: This test has not [...] Org specific cx Ql (Vag fld)Not detectedNOT DETECTKettering Health Main CampusLaboratory - Specimen informationon 11-53-3130Twbsicfdee (U)CLEARCLEARFRiverside Methodist HospitalColor (U)LT. YELLOWYELLOWUniversity Hospitals Beachwood Medical Center Laboratory - Urinalysison 80-78-1207Uyysajj casts LM Ql (Urine sed)RAREUniversity Hospitals Beachwood Medical CenterLeukocyte esterase Test strip Ql (U)NegativeNEGATIVE [facility] CenterMucus Ql (Urine sed)TRACEAbnormalNONE SEEN [facility] CenterNitrite Ql (U)NegativeNEGATIVEUniversity Hospitals Beachwood Medical CenterProtein Ql (U)NegativeNEG/TRACEUniversity Hospitals Beachwood Medical CenterLeukocytes [#/volume] corrected for nucleated erythrocytes in Blood by Automated counon 48-61-7928PKE corrected for nucl RBC Auto (Bld) [#/Vol] Leukocytes [#/volume] corrected for nucleated erythrocytes in Blood by Automated coun4.0-11.0[facility] Medical CenterLymphocytes Auto (Bld) [#/Vol]on 89-27-9896Oigxosvxejq (Bld) [#/Vol]Lymphocytes [#/volume] in Blood by Automated count1.2-3.8[facility] CenterLymphocytes/100 WBC Auto (Bld)on 87-45-6360Ngfaaxddrba/100 WBC (Bld)Lymphocytes/100 leukocytes in Blood by Automated koyzaUvm53.5-60.0[facility] HospitalH Auto (RBC) [Entitic mass]on 59-95-4720SVN (RBC) [Entitic mass]MCH [Entitic mass] by Automated count26.7-34.0[facility] HospitalHC Auto (RBC) [Mass/Vol]on 51-60-0177VDGK (RBC) [Mass/Vol]MCHC [Mass/volume] by Automated count29.9-35.2FBucyrus Community HospitalV Auto (RBC) [Entitic vol]on 27-05-0225DMM (RBC) [Entitic vol]MCV [Entitic volume] by Automated count 81.0-99.0[facility] CenterMonocytes Auto (Bld) [#/Vol]on 09-44-4830Xmuwaasuw (Bld) [#/Vol]Automated blood monocyte count0.3-0.8[facility] CenterMonocytes/100 WBC Auto (Bld)on 66-36-3981Iaffmiewg/100 WBC (Bld)Automated monocyte %1.7-12.0[facility] Neutrophils Auto (Bld) [#/Vol]on 56-72-8684Ljwyfxycawd (Bld) [#/Vol]Neutrophils [#/volume] in Blood by Automated countHigh1.4-6.5FRiverside Methodist HospitalNeutrophils/100 WBC Auto (Bld)on 66-68-9147Elxqlqzecry/100 WBC (Bld) Automated neutrophil %43.0-75.0[facility] CenterNo Panel Informationon 91-53-6102Fqwiwhtt I High Sensitivity9.3 pg/mL4.0-51.3FRiverside Methodist HospitalComment on above:CUT-OFF POINTS HAVE BEEN ESTABLISHED [...] DIAGNOSTIC AND CLINICAL INFORMATION.Bedside Influenza Type A AntigenNegativeOhiohealth Arthur G.[facility] Center Medical CenterComment on above:Negative for Flu A protein antigen. Infection due to Flu Acannot be ruled out. Flu A antigen in thesample may bebelow the detection limit of the test.Bedside Influenza Type B AntigenNegativeUniversity Hospitals Beachwood Medical CenterComment on above:Negative for Flu B protein antigen. Infection due to Flu Bcannot be ruled out. Flu B antigen in thesample may bebelow the detection limit of the test. Urine BacteriaTRACE #/HPFAbnormalNONE [facility] HospitalUrine Culture ReflexedNOUniversity Hospitals Beachwood Medical CenterUrine Occult BloodTRACE-L NEGATIVEUniversity Hospitals Beachwood Medical CenterUrine Other CastsSEEN #/LPFAbnormalNONE [facility] HospitalUrine Other CrystalsNone Seen #/HPFNone [facility] HospitalUrine RBC0-2 #/HPF0-2FRiverside Methodist HospitalUrine Squamous Epithelial CellsRARE #/LPFNONE/RAREUniversity Hospitals Beachwood Medical CenterUrine WBC0-2 #/HPFAbnormalNONE [facility] HospitalA.calcoaceticus-baumannii cmplx PCRNot detectedNOT DETECTWilson Memorial HospitalBacteroides fragilis (PCR)Not detectedNOT [facility] YoungstownBlood Culture SourceBloodUniversity Hospitals Beachwood Medical CenterCandida albicans (PCR)Not detectedNOT [facility] YoungstownCandida auris (PCR)Not detectedNOT [facility] YoungstownCandida glabrata (PCR)Not detectedNOT DETECTKettering Health Main CampusCandida krusei (PCR)Not detectedNOT DETECTKettering Health Main CampusCandida parapsilosis (PCR)Not detectedNOT DETECTE [facility] CenterCandida tropicalis (PCR)Not detectedNOT DETECTWilson Memorial HospitalCrypto neoformans/gattii (PCR)(LAB)Not detected NOT DETECTKettering Health Main CampusCTX-M ESBL (PCR)NOT APPLICABLENOT [facility] YoungstownEnterobacter cloacae complex (PCR)Not detectedNOT DETECTKettering Health Main CampusEnterobacterales (PCR)Not detectedNOT [facility] YoungstownEnterococcus faecalis PCRNot detectedNOT [facility] YoungstownEnterococcus faecium PCRNot detectedNOT [facility] YoungstownEscherichia coli ResultNot detectedNOT [facility] - YoungstownHaemophilus influenzae DNA Not detectedNOT Select Medical [facility] (blaIMP[facility] Carbap Res Gene (PCR)NOT APPLICABLENOT [facility]Klebsiella aerogenes (PCR)Not detectedNOT [facility] Klebsiella oxytoca (PCR)Not detectedNOT [facility] Klebsiella pneumoniae group (PCR)Not detectedNOT [facility] (blaKPC) Detection (PCR)NOT APPLICABLENOT [facility] [place]stownListeria monocytogenes (PCR)Not detectedNOT DETECTWilson Memorial HospitalMCR-1 Resistance GeneNOT APPLICABLENOT [facility] HospitalmecA/C & MREJ Antimicrob Resist GenNOT APPLICABLENOT [facility] [place]mecA/C-Methicillin Resistance GeneNOT APPLICABLENOT [facility]NDM (blaNDM) Detection (PCR)NOT APPLICABLENOT [facility] [place]Neisseria meningitidis (PCR)Not detectedNOT [facility] [place]stownProteus species (PCR)Not detectedNOT [facility] [place]Pseudomonas aeruginosa (PCR)Not detectedNOT [facility] Hospitalalmonella spp. (PCR)Not detectedNOT [facility] Hospitalerratia marcescens (PCR)Not detectedNOT [facility] Hospitaltaphylococcus aureus (PCR)(LAB)Not detectedNOT [facility] Hospitaltaphylococcus epidermidis (PCR)Not detectedNOT [facility] Hospitaltaphylococcus lugdunensis (TEM-PCRNot detectedNOT [facility] Hospitaltaphylococcus species (PCR) Not detectedNOT [facility] Hospitaltenotroph. maltophilia (PCR)Not detectedNOT [facility] Hospitaltreptococcus pneumoniae (PCR)Not detectedNOT [facility] Streptococcus pyogenes (PCR)(LAB)Not detectedNOT [facility] Hospitaltreptococcus species (PCR)Not detectedNOT [facility] Hospitalyn OXA-48-like Carb Res Gene (PCR)NOT APPLICABLENOT [facility] [place]stownVanA/B-Vancomycin Resistance GenesNOT APPLICABLENOT DETECTKettering Health Main CampusVIM (blaVIM) Carbap Res Gene (PCR)NOT APPLICABLENOT DETECTKettering Health Main CampusEosinophils # (Auto)0.1 10 3/uL0.0-0.7FRiverside Methodist HospitalImmature Granulocyte # (Auto)0.03 10 3/uL0.00-0.03[facility] CenterNo Panel InformationOrdered By: Rich Carcamo on 41-93-3309Itkidega Identification Only [facility] CenterBlood Culture 1FRiverside Methodist HospitalPlatelet mean volume Auto (Bld) [Entitic vol]on 31-72-9704Jllclegs mean volume (Bld) [Entitic vol]Platelet mean volume [Entitic volume] in Blood by Automated count9.5-13.5FRiverside Methodist HospitalPlatelets Auto (Bld) [#/Vol]on 25-81-4098Zzmtiodab (Bld) [#/Vol]Platelets [#/volume] in Blood by Automated lblee108-963KgsqgssifUniversity Hospitals Beachwood Medical CenterRBC Auto (Bld) [#/Vol]on 69-47-2685EXP (Bld) [#/Vol]Erythrocytes [#/volume] in Blood by Automated count Low4.20-5.40[facility] Bryan Hospitalerum or plasma albumin/globulin mass ratioon 25-19-3726Rfkrknp/Globulin [Mass ratio]Serum or plasma albumin/globulin mass ratioParkview Health Bryan Hospitalerum or plasma anion gap determinationon 93-89-4849Bgdch gap [Moles/Vol]Serum or plasma anion gap determinationUniversity Hospitals Beachwood Medical CenterBasophils Auto (Bld) [#/Vol]on 72-45-0836Akhplazga (Bld) [#/Vol]0.0 10 3/uL0.0-0.1FRiverside Methodist HospitalBasophils/100 WBC Auto (Bld)on 78-57-0485Qrbyuwioo/100 WBC (Bld)0.4 % 0.2-2.0[facility] CenterEosinophils/100 WBC Auto (Bld)on 72-33-3701Ldtebuvdeis/100 WBC (Bld)2.6 %0.9-7.0[facility] Erythrocyte distribution width Auto (RBC) [Ratio]on 61-48-1858Cvkwivljvlj distribution width (RBC) [Ratio]13.3 %11.0-15.0[facility] Estimated glomerular filtration rate (GFR) non- Americanon 11-07-2023 GFR/1.73 sq M.predicted among non-blacks MDRD (S/P/Bld) [Vol rate/Area]45 mL/min/{1.73_m2}Low>=60[facility] CenterHematocrit Auto (Bld) [Volume fraction]on 39-44-6402Pquwlknmjf (Bld) [Volume fraction]35.4 %Low 36.0-48.0[facility] CenterHemoglobin [Mass/volume] in Bloodon 67-68-2370Fjijgewifd (Bld) [Mass/Vol]11.8 g/dLLow12.0-16.0[facility] CenterIron binding capacity [Mass/volume] in Serum or Plasmaon 86-34-3059Ecqj binding capacity [Mass/Vol]258.0 ug/dL250.0-450.0[facility] Medical CenterIron saturation [Mass Fraction] in Serum or Plasmaon 39-54-6152Ddya saturation [Mass fraction]31.8 %[facility] Laboratory - Chemistry and Chemistry - challengeon 02-22-6024Nzftsvf [Mass/Vol] 10.0 mg/dL8.5-10.1FRiverside Methodist HospitalChloride [Moles/Vol]102 mmol/T68-112FhaowxdiqUniversity Hospitals Beachwood Medical CenterCO2 [Moles/Vol]30.7 mmol/L21.0-32.0 [facility] CenterCobalamin (Vitamin B12) [Mass/Vol]344.0 pg/mL 193.0-986.0[facility] CenterCreatinine [Mass/Vol]1.17 mg/dLHigh 0.55-1.02[facility] CenterFerritin [Mass/Vol]154.0 ng/mL 8.0-252.0[facility] CenterGFR/1.73 sq M.predicted MDRD (S/P/Bld) [Vol rate/Area]54 mL/min/{1.73_m2}Low>=60[facility] Glucose [Mass/Vol]107 mg/qHWzxm40-337IrrlmcvdyUniversity Hospitals Beachwood Medical CenterIron [Mass/Vol]82.0 ug/dL50.0-170.0[facility] CenterPotassium [Moles/Vol]3.5 mmol/L3.5-5.1FSouthern [place] Medical Centerodium [Moles/Vol] 141 mmol/J766-069JyxirdiyeUniversity Hospitals Beachwood Medical CenterUrea nitrogen [Mass/Vol]15.0 mg/dL7.0-18.0[facility] CenterUrea nitrogen/Creatinine [Mass ratio]12.8 mg/mgUniversity Hospitals Beachwood Medical CenterLaboratory - Hematology and Cell countson 79-34-3334Xiqoiyxl granulocytes/100 WBC (Bld)0.2 %0.0-0.5FRiverside Methodist HospitalLeukocytes [#/volume] corrected for nucleated erythrocytes in Blood by Automated counon 48-28-8692KRU corrected for nucl RBC Auto (Bld) [#/Vol]5.3 10 3/uL4.0-11.0[facility] Lymphocytes Auto (Bld) [#/Vol]on 80-56-0754Qshyseftfwl (Bld) [#/Vol]1.9 10 3/uL 1.2-3.8[facility] CenterLymphocytes/100 WBC Auto (Bld)on 59-64-5873Osbjyvnbkxy/100 WBC (Bld)35.4 %20.5-60.0[facility] HospitalH Auto (RBC) [Entitic mass]on 36-59-2331ZFE (RBC) [Entitic mass]30.6 pg 26.7-34.0[facility] CenterMCHC Auto (RBC) [Mass/Vol]on 90-47-4748JTDR (RBC) [Mass/Vol]33.3 g/dL29.9-35.2FRiverside Methodist HospitalMCV Auto (RBC) [Entitic vol]on 51-42-9672ARW (RBC) [Entitic vol]91.7 fL 81.0-99.0[facility] CenterMonocytes Auto (Bld) [#/Vol]on 00-34-6730Xjyrpymhj (Bld) [#/Vol]0.6 10 3/uL0.3-0.8[facility] CenterMonocytes/100 WBC Auto (Bld)on 02-86-5682Zcgsevmkc/100 WBC (Bld)12.1 %High 1.7-12.0[facility] CenterNeutrophils Auto (Bld) [#/Vol]on 39-10-6303Emnvvcxhieg (Bld) [#/Vol]2.6 10 3/uL1.4-6.5FRiverside Methodist HospitalNeutrophils/100 WBC Auto (Bld)on 53-09-8465Fywmrlwubkl/100 WBC (Bld)49.3 % 43.0-75.0[facility] CenterNo Panel Informationon 11-07-2023 Eosinophils # (Auto)0.1 10 3/uL0.0-0.7FRiverside Methodist HospitalFolate 17.80 ng/mL8.60-58.90[facility] CenterImmature Granulocyte # (Auto)0.01 10 3/uL0.00-0.03[facility] CenterPlatelet mean volume Auto (Bld) [Entitic vol]on 66-88-7171Yblasfoo mean volume (Bld) [Entitic vol] 12.2 fL9.5-13.5FRiverside Methodist HospitalPlatelets Auto (Bld) [#/Vol]on 83-35-8098Xjcivaznj (Bld) [#/Vol]190 10 3/xQ539-593RmmjlqfshUniversity Hospitals Beachwood Medical CenterRBC Auto (Bld) [#/Vol]on 04-65-4614CFF (Bld) [#/Vol]3.86 10 6/uLLow 4.20-5.40Park[facility] Hospitalerum or plasma anion gap determinationon 90-48-9641Zxepa gap [Moles/Vol]11.8 mmol/LFRiverside Methodist HospitalRF videography Hypopharynx and Esophagus Views for swallowing function W speech and W barium contrast [place] 06-[address] [address] Fluoroscopy Report Signed Patient: GIOVANNA BAUM MR#: [id number] : 1940 Acct:[id number] Age/Sex: 82 / F ADM Date: 09/13/23 Loc: [place] Attending Dr: Torres Rosa M.D. Ordering Physician: Torres Rosa M.D. Date of Service: 09/13/23 Procedure(s): FL modified barium swallow Accession Number(s): [id number] cc: Ovi Mauricio D.O.; Torres Rosa M.D. [place] [address] Patient Name: GIOVANNA BAUM MRN: [id number] date: 1940 Sex: F Assigned Patient Location: [place] Current Patient Location: [place] Accession/Order Number: [id number] Exam Date: 09/13/2023 13:00 Report Date: 09/13/2023 [...] Signed By: 09/13/23 1410 DD/ 1407 TD/TT: Manager Servicing:TBHRadiology, Radiologist, MD - 09/13/[address] [address] Fluoroscopy Report Signed Patient: GIOVANNA BAUM MR#: [id number] : 1940 Acct:[id number] Age/Sex: 82 / F ADM Date: 09/13/23 Loc: [place] Attending Dr: Torres Rosa M.D. Ordering Physician: Torres Rosa M.D. Date of Service: 09/13/23 Procedure(s): FL modified barium swallow Accession Number(s): [id number] cc: Ovi Mauricio D.O.; Torres Rosa M.D. The [place] [id number] Patient Name: GIOVANNA BAUM MRN: [id number] date: 1940 Sex: F Assigned Patient Location: [place] Current Patient Location: [place] Accession/Order Number: [id number] Exam Date: 09/13/2023 13:00 Report Date: 09/13/2023 [...] Signed By: 09/13/23 1410 DD/ 1407 TD/TT: Manager Servicing: [facility] HealthcareRadiology Study observation (narrative)[facility] HealthcareRF videography Hypopharynx and Esophagus Views for swallowing function W speech and W barium contrast POOrdered By: Radiologist Radiology on 09-20-5736[facility] Work Phone: Office Visiton [id number]-up [id number] Giovanna Baum 1940 F Date Provider Department Center 01/05/2023 [facility]8-JEMAL MEDEIROS [facility] Family History Problem Relation Age of Onset No Known Problems Mother No Known Problems Father Family Status - Relation Status Age at Mother Father Level of Service:54876 DC OFFICE/OUTPATIENT ESTABLISHED LOW MDM 20-29 [facility] HospitalFUATRIUM [facility]OUTHPARK AB QUANTITAIVE DOUBLE IMMUNODIFFUon 46-40-4566Rqntjldwsjr flavusNegativeNormalNeg:<1:1The [facility] DaytonComment on above:Performed By: #### FUNGUYI #### [facility] [address] [place] [address] Dr. Milena RosaAsphugoillus fumigatusNegativeNormalNeg:<1:1[facility] Comment on above:Performed By: #### FUNGUYI #### [facility] [address] [place] [address] Dr. Milena RosaAspergillus nigerNegativeNormalNeg:<1:1[facility] Comment on above:Performed By: #### FUNGUYI #### [facility] [address] [place] [address] [address] Milena RosaBlastomycesNegativeNormalNeg:<1:1The [facility] DaytonComment on above:Performed By: #### FUNGUYI #### [facility] [address] [place] [address] [address] Milena RosaHISTOPLASMA GALACTOMANNAN AG URINEon 76-52-3759Dmskzcrqeha Gal'rosales Ag<0.5Normal<0.5 ng/mLThe [facility]up HospitalComment on above:Performed By: #### HISTGAL ####[facility] [address] [place] [address]DrElia Abbott ChangCOCCIDIODES IGG/IGM AB BY IFAon 20-20-0974Ejmzyafjjki Ab, IgG EIA0.1 EIA [facility] HospitalComment on above:Result Comment: Negative <1.0 Indeterminate 1.0-1.4 Positive >1.4Performed By: #### COCCABS #### [facility] [address] [place] [address] [address] Milena RosaCoccidiodes Ab, IgM, EIA0.0 EIA [facility] Comment on above:Result Comment: Negative <1.0 Indeterminate 1.0-1.4 Positive >1.4Performed By: #### COCCABS #### [facility] [address] [place] [address] [address] Milena RosaHISTOPLASMA CAP AB QUANT DIDon 23-72-2177Lqtgboqirca Mycelial CF Ab.NegativeNormalNeg:<1:2[facility] HealthComment on above:Performed By: #### HISTDID ####[facility] [address] [place] [address]DrElia RosaHistoplasma Yeast CF AbNegativeNormalNeg:<1:2The [facility] DaytonCommary [facility] bed rehabilitation [facility] on above:Performed By: #### HISTDID ####[facility] [address] [place] [address]DrElia Sims Visiton 11-88-2403Dkijyb-up [id number] Giovanna Baum 1940 F Date Provider Department Center 07/26/2022 JEMAL RICHARDS [facility] Family History Problem Relation Age of Onset No Known Problems Mother No Known Problems Father Family Status - Relation Status Age at Mother Father Level of Service:27280 DC OFFICE/OUTPATIENT ESTABLISHED MOD MDM 30-39 MIN Reason for Visit and Comments: Follow-up [190993] - 6 weeks- Go over Holter monitor [...] Electronically authenticated by: WILLIAM BERMEO Date: 2022-07-19 14:55[facility] HospitalOffice [facility] [id number]-up [id number] Giovanna Baum 1940 F Date Provider Department Center 06/07/2022 3848-JEMAL MEDEIROS [facility] Family History Problem Relation Age of Onset No Known Problems Mother No Known Problems Father Family Status - Relation Status Age at Mother Father Level of Service:76703 DC OFFICE/OUTPATIENT ESTABLISHED MOD MDM 30-39 MIN Reason for Visit and Comments: Post-Cath [731]NormalHolzer HospitalCB AUTO DIFFon 20-59-1103ZLVM #0.0 103/ulNormal0.0-0.1The [facility] Hospital DaytonComment on above: Performed By: #### CBC #### [facility] [address] [place] [address] Dr. Milena RosaBasophils/100 WBC (Bld)0.3 %Normal0.2-2.0[facility] Comment on above:Performed By: #### CBC #### [facility] [address] [place] [address] Dr. Milena Munoz #0.2 103/ulNormal0.0-0.7The [facility] Hospital DaytonComment on above: Performed By: #### CBC #### [facility] [address] [place] [address] Dr. Milena Rootosinophils/100 WBC (Bld)2.8 %Normal0.9-7.0The [facility] Comment on above:Performed By: #### CBC #### [facility] [address] [place] [address] Dr. Milena oRotrythrocyte distribution width (RBC) [Ratio]13.3 %Gudbnv00.0-15.0 The [facility] Hospital DaytonComment on above:Performed By: #### CBC #### [facility] [address] [place] [address] Dr. Milena RosaHematocrit (Bld) [Volume fraction]38.5 %Hikzto07.0-48.0The [facility] Hospital DaytonComment on above:Performed By: #### CBC #### [facility] [address] [place] [address] Dr. Milena RosaHemoglobin (Bld) [Mass/Vol]12.6 g/qCVbrmgn12.0-16.0The [facility] DaytonComment on above:Performed By: #### CBC #### [facility] [address] [place] [address] Dr. Milena Lugo #0.02 10e3/ulNormal0.00-0.03The [facility] Hospital DaytonComment on above:Performed By: #### CBC #### [facility] [address] [place] [address] Dr. Milena Lugo %0.3 %Normal0.0-0.5The [facility] Hospital DaytonComment on above: Performed By: #### CBC #### [facility] [address] [place] [address] Dr. Milena Ordaz #2.5 103/ulNormal1.2-3.8The [facility] Hospital DaytonComment on above:Performed By: #### CBC #### [facility] [address] [place] [address] Dr. Milena Velezhocytes/100 WBC (Bld)37.6 %Xcskic51.5-60.0The [facility] Hospital DaytonComment on above:Performed By: #### CBC #### [facility] [address] [place] [address] Dr. Milena Suarez DIFF REQNONormalThe [facility] Hospital DaytonComment on above: Performed By: #### CBC #### [facility] [address] [place] [address] Dr. Milena Gipson (RBC) [Entitic mass]29.8 crSscwla56.7-34.0The [facility] DaytonComment on above:Performed By: #### CBC #### [facility] [address] [place] [address] Dr. Milena Gipson (RBC) [Mass/Vol]32.7 g/iUUmxudc48.9-35.2The [facility] Hospital DaytonComment on above:Performed By: #### CBC #### [facility] [address] [place] [address] Dr. Milena Gipson (RBC) [Entitic vol]91.0 wTLkgkfa00.0-99.0The [facility] DaytonCommary [facility] rehabilitation hospital on above:Performed By: #### CBC #### [facility] [address] [place] [address] Dr. Milena Albert #0.7 103/ulNormal0.3-0.8The [facility] Hospital DaytonComment on above:Performed By: #### CBC #### [facility] [address] [place] [address] Dr. Milena Dialloocytes/100 WBC (Bld)10.0 %Normal1.7-12.0The [facility] Comment on above:Performed By: #### CBC #### [facility] [address] [place] [address] Dr. Milena PelaezUT #3.3 103/ulNormal1.4-6.5The [facility] Hospital DaytonComment on above:Performed By: #### CBC #### [facility] [address] [place] [address] Dr. Milena Pelaezutrophils/100 WBC (Bld)49.0 %Acnbtu24.0-75.0The [facility] DaytonComment on above:Performed By: #### CBC #### [facility] [address] [place] [address] Dr. Milena Vogellet mean volume (Bld) [Entitic vol]11.5 fLNormal9.5-13.5The [facility] Hospital DaytonComment on above:Performed By: #### CBC #### [facility] [address] [place] [address] Dr. Milena RosaPLT201 103/gtGhpqol705-264Yyh [facility] DaytonComment on above: Performed By: #### CBC #### [facility] [address] [place] [address] Dr. Milena RosaRBC4.23 106/ulNormal4.20-5.40The [facility] Hospital DaytonComment on above:Performed By: #### CBC #### [facility] [address] [place] [address] Dr. Milena RoasWBC6.7 103/ulNormal4.0-11.0The [facility] Hospital DaytonComment on above: Performed By: #### CBC #### [facility] [address] [place] [address] Dr. Milena Hodgesvid-19 PCR (CVDTB)on 10-19-1605XMIA-CoV-2 (COVID-19) RNA RADHA+probe Ql (Unsp spec)Not detectedNormalNOT DETECTEDThe [facility] Comment on above:Result Comment: This test is not yet approved or cleared by the [place] FDA. When there are no FDA-approved or cleared tests available, and other criteria are met, FDA can make tests available under an emergency access mechanism called an Emergency Use Authorization (EUA). The EUA for this test is supported by the Parking Lot Attendant And Cashier of Health and Human Service's (HHS's) declaration [...] symptoms consistent with SARS-CoV-2.Performed By: #### CVDTB ####[facility] [address] [place] [address]Dr. Milena RosaPROF CHEM 8 (BAS METB)on 26-32-5942Cqrul gap [Moles/Vol]13.1 mmol/LNormalKettering HealthComment on above:Performed By: #### BMP #### [facility] [address] [place] [address] Dr. Milena RosaCalcium [Mass/Vol]9.8 mg/dLNormal8.5-10.1[facility] Comment on above:Performed By: #### BMP #### [facility] [address] [place] [address] Dr. Milena RosaChloride [Moles/Vol]103 mmol/NAndtdu65-128WduKettering Health Comment on above:Performed By: #### BMP #### [facility] [address] [place] [address] Dr. Milena RosaCO2 [Moles/Vol]26.7 mmol/HWdgtsi73.0-32.0[facility] Comment on above:Performed By: #### BMP #### [facility] [address] [place] [address] Dr. Milena RosaCreatinine [Mass/Vol]0.95 mg/dLNormal0.55-1.02The [facility] Hospital DaytonComment on above:Performed By: #### BMP #### [facility] [address] [place] [address] [address] Milena RootGFR-AF KYRGYZ>60Normal>=60The [facility] Hospital DaytonComment on above:Performed By: #### BMP #### [facility] [address] [place] [address] [address] Milena RootGFR-NON AF SAOYPFGU72 mL/min/1.40s1Bgvxoxzxwv low>=60The [facility] DaytonComment on above:Performed By: #### BMP #### [facility] [address] [place] [address] Dr. Milena RosaGlucose [Mass/Vol]93 mg/rATqkynm60-883Fxi [facility] Comment on above:Performed By: #### BMP #### [facility] [address] [place] [address] Dr. Milena RosaPotassium [Moles/Vol]3.8 mmol/LNormal3.5-5.1The [facility] Comment on above:Performed By: #### BMP #### [facility] [address] [place] [address] Dr. Milena RosaSodium [Moles/Vol]139 mmol/CNkaxyf985-276Fbv [facility] Comment on above:Performed By: #### BMP #### [facility] [address] [place] [address] Dr. Milena RosaUrea nitrogen [Mass/Vol]18.0 mg/dLNormal7.0-18.0The [facility] DaytonComment on above:Performed By: #### BMP #### [facility] [address] [place] [address] Dr. Milena Burnette nitrogen/Creatinine [Mass ratio]18.9 mg/mgNormalThe [facility] Hospital DaytonComment on above:Performed By: #### BMP #### [facility] [address] [place] [address] Dr. Milena Vides STRESS/REST MULTIon 39-15-2138RV STRESS/REST MULTIPatient: GIOVANNA BAUM Exam Date: 04/28/2022 : 1940 Gender:F Ordering : DR OVI MAURICIO D.O. Admission #: [id number] Family : Order #: [id number] CLICK HERE TO VIEW EXAM RADIOLOGY REPORT [...] by: Gómez Ziegler MD on 04/28/2022 at 14:26[facility] AUTO DIFFon 17-18-6106MCEV #0.0 103/ulNormal0.0-0.1[facility] HealthComment on above:Performed By: #### CBC ####[facility] [address] [place], [place] [address]Rs.Yilan ChangBasophils/100 WBC (Bld)0.5 %Normal 0.2-2.0The [facility] Hospital DaytonComment on above:Performed By: #### CBC ####[facility] [address] [place] [address]Dr.Yilan ChangEO # 0.1 103/ulNormal0.0-0.7The [facility] Hospital DaytonComment on above:Performed By: #### CBC ####[facility] [address] [place], [place] [address]Dr. Yilan ChangEosinophils/100 WBC (Bld)1.9 %Normal0.9-7.0The [facility] Comment on above:Performed By: #### CBC ####[facility] [address] [place], [place] [address]Dr.Kimberleylan ChangErythrocyte distribution width (RBC) [Ratio]14.3 %Osheam42.0-15.0The [facility] DaytonComment on above: Performed By: #### CBC ####[facility] [address] [place], [place] [address]Dr.Kimberleylan ChangHematocrit (Bld) [Volume fraction]37.6 % Frwnej97.0-48.0The [facility] DaytonComment on above:Performed By: #### CBC ####[facility] [address] [place], [place] [address]Dr. Kimberleylan ChangHemoglobin (Bld) [Mass/Vol]12.6 g/lYPpersz39.0-16.0The [facility] DaytonComment on above:Performed By: #### CBC ####[facility] [address] [place], [place] [address]Dr.Yilan ChangIG #0.02 10e3/ulNormal0.00-0.03The [facility] DaytonComment on above:Performed By: #### CBC ####[facility] [address] [place], [place] [address]Dr. Yilan ChangIG %0.3 %Normal0.0-0.5The [facility] DaytonComment on above:Performed By: #### CBC ####[facility] [address] [place] [address]Dr.Milena ChangLYMPH #2.1 103/ulNormal1.2-3.8The [facility] Comment on above:Performed By: #### CBC ####[facility] [address] [place] [address]Dr.Milena RosaLymphocytes/100 WBC (Bld)33.2 %Aijfxd46.5-60.0The [facility] DaytonComment on above:Performed By: #### CBC ####[facility] [address] [place] [address]Dr. Milena ChangMANUAL DIFF REQNONormalThe [facility] Hospital DaytonComment on above: Performed By: #### CBC ####[facility] [address] [place], [place] [address]Dr.Milena RosaMCH (RBC) [Entitic mass]30.9 pgNormal 26.7-34.0The [facility] DaytonComment on above:Performed By: #### CBC ####[facility] [address] [place], [place] [address]Dr. Milena RosaMCHC (RBC) [Mass/Vol]33.5 g/zMNgxyeq59.9-35.2[facility] Comment on above:Performed By: #### CBC ####[facility] [address] [place], [place] [address]Dr.Milena RosaMCV (RBC) [Entitic vol]92.2 fL Dbbrga80.0-99.0The [facility] Hospital DaytonComment on above:Performed By: #### CBC ####[facility] [address] [place] [address]Dr. Milena RosaMONO #0.6 103/ulNormal0.3-0.8The Access Hospital DaytonComment on above: Performed By: #### CBC ####[facility] [address] [place], [place] [address]Dr.Kimberleylan ChangMonocytes/100 WBC (Bld)8.9 %Normal 1.7-12.0The [facility]up HospitalComment on above:Performed By: #### CBC ####[facility] [address] [place] [address]Dr. Milena RosaNEUT #3.5 103/ulNormal1.4-6.5The Jessup HospitalComment on above: Performed By: #### CBC ####[facility] [address] [place] [address]Dr.Milena RosaNeutrophils/100 WBC (Bld)55.2 %Normal 43.0-75.0The [facility] HospitalComment on above:Performed By: #### CBC ####[facility] [address] [place] [address]Dr. Milena RosaPlatelet mean volume (Bld) [Entitic vol]11.6 fLNormal9.5-13.5The Jess[facility] HospitalComment on above:Performed By: #### CBC ####[facility] [address] [place] [address]Dr.Milena QztkfJBO517 103/ul Taqdvs909-773Kvj Jessup HospitalComment on above:Performed By: #### CBC ####[facility] [address] [place] [address]Dr. Milena ChangRBC4.08 106/ulCritically low4.20-5.40The Jessup HospitalComment on above:Performed By: #### CBC ####[facility] [address] [place] [address]Dr.Milena ChangWBC6.3 103/ulNormal4.0-11.0The Jess[facility] HospitalComment on above:Performed By: #### CBC ####[facility] [address] [place], [place] [address]Dr.Yilan ChangECHOCARDIO M/2D COMPLETEon 79-25-4911GZFFIJRIDJ M/2D COMPLETEPatient: GIOVANNA BAUMElia Exam Date: 02/27/2022 : 1940 Gender:F Ordering : DR OVI MAURICIO D.O. Admission #: [id number] Family : Order #: [id number] CLICK HERE TO VIEW EXAM ECHOCARDIOGRAM REPORT [...] by: Carlito Christie M.D. on 03/01/2022 at 11:53[facility] HospitalPROF CHEM 8 (BAS METB)on 25-94-2443Qlsys gap [Moles/Vol]6.1 mmol/LNormal The [facility] Hospital DaytonComment on above:Performed By: #### BMP, TSH #### [facility] [address] [place] [address] Dr. Milena RosaCalcium [Mass/Vol]9.0 mg/dLNormal8.5-10.1[facility] Comment on above:Performed By: #### BMP, TSH #### [facility] [address] [address] [address] Milena RosaChloride [Moles/Vol]103 mmol/CSahhyr42-583MxoKettering Health Comment on above:Performed By: #### BMP, TSH #### [facility] [address] [address] [address] Milena RosaCO2 [Moles/Vol]34.4 mmol/LCritically high21.0-32.0The [facility] HospitalComment on above:Performed By: #### BMP, TSH #### [facility] [address] [address] [address] Milena RosaCreatinine [Mass/Vol]1.21 mg/dLCritically high0.55-1.02The [facility] Hospital DaytonComment on above:Performed By: #### BMP, TSH #### [facility] [address] [address] [address] Milena RootGFR-AF NGCQOXZO33 mL/min/1.81d6Icebpteqye low>=60The [facility] Hospital DaytonComment on above:Performed By: #### BMP, TSH #### [facility] [address] [address] [address] Milena RootGFR-NON AF WVJXFIYV46 mL/min/1.37z1Voykvwkeol low>=60The [facility] Hospital DaytonComment on above:Performed By: #### BMP, TSH #### [facility] [address] [place] [address] Dr. Milena RosaGlucose [Mass/Vol]101 mg/iSWcnuse48-998Dbs [facility] Comment on above:Performed By: #### BMP, TSH #### [facility] [address] [place] [address] Dr. Milena RosaPotassium [Moles/Vol]3.5 mmol/LNormal3.5-5.1The [facility] Comment on above:Performed By: #### BMP, TSH #### [facility] [address] [place] [address] Dr. Milena Aldridgedium [Moles/Vol]140 mmol/LKdrbaa382-187Knq [facility] Comment on above:Performed By: #### BMP, TSH #### [facility] [address] [place] [address] Dr. Milena RosaUrea nitrogen [Mass/Vol]20.0 mg/dLCritically high7.0-18.0The [facility] Hospital DaytonComment on above:Performed By: #### BMP, TSH #### [facility] [address] [place] [address] Dr. Yilan ChangUrea nitrogen/Creatinine [Mass ratio]16.5 mg/mgNoCentervilleComment on above:Performed By: #### BMP, TSH #### [facility] [address] [place], [place] [address] Dr. Milena RosaIRWINHoreji 28-63-5507PHX4.640 uIU/mLNormal0.358-3.740The [facility] Hospital DaytonComment on above:Performed By: #### BMP, TSH #### [facility] [address] [place], [place] [address] Dr. Milena RosaXR CHEST 2 Von 95-61-4419ZK CHEST 2 VEXAM: XR CHEST 2 V [...] Electronically authenticated by: WHITNEY FOURNIER Date: 2022-02-27 13:49[facility] WO CONon 21-56-8313OEW LSPINE WO CONEXAMINATION: MRI [facility] CON HISTORY: Lumbar spondylosis ; chronic [...] Electronically authenticated by: WILLIAM BERMEO Date: 2022-01-09 16:[address] [place], [place] [address]XR hand BI 3Von 52-97-9938AG hand BI 3[facility] [place] [address] [place] [address] XRay Report Signed Patient: Giovanna Baum MR#: [id number] : 1940 Acct:[id number] Age/Sex: 81 / F ADM Date: 12/21/21 Loc: [facility] Room: Type: [facility] Attending Dr: Brina Morrissey MD Copies [...] Caal Jr., D.O.12/21/2021 2:31 PM Dictation Location: [place] [address] Transcribed By: [place] 12/21/21 1431 Dictated By: Erasmo Caal Jr, DO 12/21/21 1427 Signed By: 12/21/21 1431[facility] DIFFon 09-14-2021 BASO #0.0 103/ulNormal0.0-0.1The Access Hospital DaytonComment on above:Performed By: #### CBC #### [facility] [address] [address] [address] Milena RosaBasophils/100 WBC (Bld)0.2 %Normal0.2-2.0[facility] Comment on above:Performed By: #### CBC #### [facility] [address] [place] [address] [address] Milena Munoz #0.1 103/ulNormal0.0-0.7The [facility] Hospital DaytonComment on above: Performed By: #### CBC #### [facility] [address] [address] [address] Milena Rootosinophils/100 WBC (Bld)2.8 %Normal0.9-7.0The [facility] Comment on above:Performed By: #### CBC #### [facility] [address] [address] [address] Milena Rootrythrocyte distribution width (RBC) [Ratio]13.4 %Brknux76.0-15.0 The [facility] Hospital DaytonComment on above:Performed By: #### CBC #### [facility] [address] [address] [address] Milena Johnatocrit (Bld) [Volume fraction]38.2 %Xrjgyx88.0-48.0The [facility] Hospital DaytonComment on above:Performed By: #### CBC #### [facility] [address] [place] [address] Dr. Milena RosaHemoglobin (Bld) [Mass/Vol]12.5 g/oZYiwoep96.0-16.0The [facility] Hospital DaytonComment on above:Performed By: #### CBC #### [facility] [address] [place] [address] Dr. Milena Lugo #0.02 10e3/ulNormal0.00-0.03[facility] on above:Performed By: #### CBC #### [facility] [address] [place] [address] Dr. Milena Lugo %0.4 %Normal0.0-0.5The Access Hospital DaytonComment on above: Performed By: #### CBC #### [facility] [address] [place] [address] Dr. Milena Ordaz #2.1 103/ulNormal1.2-3.8[facility] on above:Performed By: #### CBC #### [facility] [address] [place] [address] Dr. Milena Morganmphocytes/100 WBC (Bld)40.5 %Sywmuk09.5-60.0[facility] on above:Performed By: #### CBC #### [facility] [address] [place] [address] Dr. Milena RosaMANUAL DIFF REQNONormalThe Access Hospital DaytonComment on above: Performed By: #### CBC #### [facility] [address] [place] [address] Dr. Milena Burnett (RBC) [Entitic mass]29.7 lbUmwacm75.7-34.0The [facility] Hospital DaytonComment on above:Performed By: #### CBC #### [facility] [address] [address] [address] Milena GipsonHC (RBC) [Mass/Vol]32.7 g/lYMeqrfi84.9-35.2The Access Hospital DaytonComment on above:Performed By: #### CBC #### [facility] [address] [place] [address] Dr. Milena GipsonV (RBC) [Entitic vol]90.7 mHLmlcvg24.0-99.0The Access Hospital DaytonComment on above:Performed By: #### CBC #### [facility] [address] [place] [address] Dr. Milena Albert #0.6 103/ulNormal0.3-0.8The [facility] Hospital DaytonComment on above:Performed By: #### CBC #### [facility] [address] [place] [address] Dr. Milena Dialloocytes/100 WBC (Bld)12.0 %Normal1.7-12.0[facility] Comment on above:Performed By: #### CBC #### [facility] [address] [place] [address] Dr. Milena Schmidt #2.3 103/ulNormal1.4-6.5The Access Hospital DaytonComment on above:Performed By: #### CBC #### [facility] [address] [place] [address] Dr. Milena Pelaezutrophils/100 WBC (Bld)44.1 %Ehzfoj94.0-75.0The [facility] Hospital DaytonComment on above:Performed By: #### CBC #### [facility] [address] [place] [address] Dr. Milena Vogellet mean volume (Bld) [Entitic vol]11.7 fLNormal9.5-13.5The [facility] Hospital DaytonComment on above:Performed By: #### CBC #### [facility] [address] [place] [address] Dr. Milena RosaPLT206 103/ytKqkyro824-854Twi Access Hospital DaytonComment on above: Performed By: #### CBC #### [facility] [address] [place], [place] [address] Dr. Milena RosaRBC4.21 106/ulNormal4.20-5.40The [facility] Hospital DaytonComment on above:Performed By: #### CBC #### [facility] [address] [place], [place] [address] Dr. Milena RosaWBC5.1 103/ulNormal4.0-11.0The [facility] Hospital DaytonComment on above: Performed By: #### CBC #### [facility] [address] [place] [address] Milena RosaMG MAMM SCREEN 3D SHERICE CADon 20-11-3204RR MAMM SCREEN 3D SHERICE CAD Patient: GIOVANNA BAUM Exam Date: 09/14/2021 : 1940 Gender:F Ordering : DR OVI MAURICIO D.O. Admission #: [id number] Family : Order #: [id number] CLICK HERE TO VIEW EXAM RADIOLOGY REPORT [...] Treatments None Family Cancers None LOCATION: [facility] BREAST COMPOSITION: Scattered areas fibroglandular density. FINDINGS: [...] by: Gómez Ziegler MD on 09/14/2021 at 10:42[facility] HospitalPROF CHEM 8 (BAS METB)on 63-45-1931Djrdm gap [Moles/Vol]10.5 mmol/LNormalThe Access Hospital DaytonComment on above:Performed By: #### BMP #### [facility] [address] [address] [address] Milena RosaCalcium [Mass/Vol]9.5 mg/dLNormal8.5-10.1[facility] Comment on above:Performed By: #### BMP #### [facility] [address] [place] [address] [address] Milena RosaChloride [Moles/Vol]101 mmol/FVrexvx12-111Qdc [facility] Comment on above:Performed By: #### BMP #### [facility] [address] [place] [address] [address] Milena RosaCO2 [Moles/Vol]31.1 mmol/XZikjym14.0-32.0[facility] Comment on above:Performed By: #### BMP #### [facility] [address] [place] [address] [address] Milena RosaCreatinine [Mass/Vol]1.01 mg/dLNormal0.55-1.02[facility]tering HealthComment on above:Performed By: #### BMP #### [facility] [address] [place] [address] [address] Milena RootGFR-AF KYRGYZ>60Normal>=60The [facility] Hospital DaytonComment on above:Performed By: #### BMP #### [facility] [address] [address] [address] Milena RootGFR-NON AF KFXDTPFS05 mL/min/1.97k3Oavcyqgbgb low>=60The [facility] DaytonComment on above:Performed By: #### BMP #### [facility] [address] [address] [address] Milena RosaGlucose [Mass/Vol]96 mg/yVDnvgzk13-459EtzKettering Health Comment on above:Performed By: #### BMP #### [facility] [address] [address] [address] Milena RosaPotassium [Moles/Vol]3.6 mmol/LNormal3.5-5.1[facility] Comment on above:Performed By: #### BMP #### [facility] [address] [address] [address] Milena Aldridgedium [Moles/Vol]139 mmol/RZzfovc550-769Nkj [facility] Comment on above:Performed By: #### BMP #### [facility] [address] [address] [address] Milena RosaUrea nitrogen [Mass/Vol]20.0 mg/dLCritically high7.0-18.0[facility] HealthComment on above:Performed By: #### BMP #### [facility] [address] [place] [address] [address] Milena Burnette nitrogen/Creatinine [Mass ratio]19.8 mg/mgNormalThe Access Hospital DaytonComment on above:Performed By: #### BMP #### [facility] [address] [address] [address] Milena RosaCoortega Summary.on 64-61-0705Qtvdis Summary.CODING DATE: 12/26/2017 FINAL [facility] [place] STATUS: Home (Routine DC) PAYOR: Medicare APC DESCRIPTION 5481 Laser Eye Procedures ADMIT DX: REASON FOR VISIT DX: H26.492 Other secondary cataract, left eye FINAL DX: PRINCIPAL: H26.492 Other secondary cataract, left eye SECONDARY: PYMT PROC APC STAT DESCRIPTION DOCTOR NAME DATE 31590 5481 T Discission of secondary Quinn Armendariz [...] Isha Eddy Revised Date Saved: 12/26/2017 11:03 amNCleveland Clinic Lutheran HospitalCoding Summary.on 86-88-1873Xvkvil Summary.CODING DATE: 12/19/2017 FINAL [facility] [place] STATUS: Home (Routine DC) PAYOR: Me phan [...] By: Shilpa Perez Date Saved: 12/19/2017 09:21 [facility] Vital Signs Date TimeVital SignValuePerforming SapornmriMawgdgwq41-97-2912 10:37-0400Body hrhdyg835.86 cmBenjamin Ball DO Work Phone: [phone]10-22-2025 10:37-0400 Body mass index (BMI) [Ratio]31.7 kg/t1Iuhjbpaw Ball DO Work Phone: [phone]10-22-2025 10:37-0400 Body zfzxyy99.21 kgBenjamin Ball DO Work Phone: [phone] [place], [place] 9823910-22-2025 10:37-0400 Diastolic blood wkcerztc20 mm[Hg]Ovi Ball DO Work Phone: [phone] [place], [place] 9823910-22-2025 10:37-0400 Heart rate67 /minBenjamin Ball DO Work Phone: [phone] [place], [place] [address]10-22-2025 10:37-0400 Respiratory rate20 /minBenjamin Ball DO Work Phone: [phone]10-22-2025 10:37-0400 SaO2% (BldA) [Mass fraction]97 %Ovi Ball DO Work Phone: [phone] [place], [place] 7256010-22-2025 10:37-0400 Systolic blood snmknrib359 mm[Hg]Ovi Ball DO Work Phone: [phone])[address] [place], [place] 7256008-11-2025 09:55-0400 Body tnkdig383.86 cmBenjamin Ball DO Work Phone: [phone])[address] [place], [place] 7256008-11-2025 09:55-0400 Body mass index (BMI) [Ratio]32.1 kg/d4Laztslbj Ball DO Work Phone: [phone])[address] [place], [place] 7256008-11-2025 09:55-0400 Body zlmtji33.23 kgBenjamin Ball DO Work Phone: [phone])[address] [place], [place] 7256008-11-2025 09:55-0400 Diastolic blood ikuneluh15 mm[Hg]Ovi Ball DO Work Phone: [phone])[address] [place], [place] 7256008-11-2025 09:55-0400 Heart rate58 /minBenjamin Ball DO Work Phone: [phone])[address] [place], [place] 7256008-11-2025 09:55-0400 Respiratory rate12 /minBenjamin Ball DO Work Phone: [phone])[address] [place], [place] 7256008-11-2025 09:55-0400 SaO2% (BldA) [Mass fraction]96 %Ovi Ball DO Work Phone: [phone] [place], [place] 7256008-11-2025 09:55-0400 Systolic blood fyjxbjmj450 mm[Hg]Ovi Ball DO Work Phone: [phone] [place], [place] 7256007-28-2025 12:46-0400 Body pnvmvi925.86 cmBenjamin Ball DO Work Phone: [phone])[address] [place], [place] 7256007-28-2025 12:46-0400 Body mass index (BMI) [Ratio]31.3 kg/m9Hoqlqgxn Ball DO Work Phone: [phone] [place], [place] 7256007-28-2025 12:46-0400 Body mmwecm39.3 kgBenjamin Ball DO Work Phone: [facility]07-28-2025 12:46-0400 Diastolic blood okdfvdkx44 mm[Hg]Ovi Ball DO Work Phone: [facility]07-28-2025 12:46-0400 Heart rate75 /minBenligia Ball DO Work Phone: [facility]07-28-2025 12:46-0400 Systolic blood qxedqcnf588 mm[Hg]Ovi Ball DO Work Phone: [facility]04-28-2025 09:56-0400 Body htbtyv971.13 cmUniversity [facility]als [facility]04-28-2025 09:56-0400Body mass index (BMI) [Ratio]30.7 kg/y1WohkwtdmlUniversity [facility]als [facility]04-28-2025 09:56-0400Body pemrfi93.02 kgUniversity Hospitals [facility]04-28-2025 09:56-0400Diastolic blood mdtiaaza63 mm[Hg][facility] 08-25-2024 09:56-0400Heart rate64 /[facility] 08-25-2024 09:56-0400Respiratory rate12 /[facility] 08-25-2024 09:56-4509IeB2% (BldA) [Mass fraction]97 %[facility]04-28-2025 09:56-0400Systolic blood petngtjo942 mm[Hg][facility]12-16-2024 14:22-0500Body kbmlee001.9 An Yang [employer] Work Phone: SilverpopLafayette [facility] Health CenterOfgtzqnskk80-99-6782 14:22-0500Body mass index (BMI) [Ratio]31.71 kg/j2HsljteBrigitte Yang [employer] Work Phone: noLafayette Regional Health CenterPmbkxihwgl71-56-0048 14:22-0500Body smbxif17.22 kgBrigitte Yang [employer] Work Phone: noLafayette Regional Health CenterOiyhjgpyxo60-02-7667 14:22-0500Diastolic blood mm[Hg]Brigitte Yang [employer] Work Phone: [facility] CenterUyzacmstsk47-34-4449 14:22-0500Heart rate61 /min Brigitte Yang [employer] Work Phone: [facility] CenterKxdvktjlox40-43-9038 14:22-7781YsK5% (BldA) [Mass fraction]97 %Brigitte Yang [employer] Work Phone: [facility] CenterCqxzfelgof87-95-2570 14:22-0500Systolic blood hoqnmwlm63 mm[Hg]Brigitte Yang [employer] Work Phone: [facility] CenterNvhsvvwjdh04-71-9976 10:07-0500Body fjtmqo256.13 cmUniversity [facility]als [facility]11-18-2024 10:07-0500Body mass index (BMI) [Ratio]30.5 kg/v3DhwytdfraUniversity Hospitals [facility] Center11-18-2024 10:07-0500Body yliflb27.85 kgUniversity Hospitals [facility]11-18-2024 10:07-0500Diastolic blood decyopua65 mm[Hg][facility]11-18-2024 10:07-0500 Heart rate61 /[facility]11-18-2024 10:07-2806GvH2% (BldA) [Mass fraction]97 %[facility]11-18-2024 10:07-0500 Systolic blood qjoesbuj120 mm[Hg][facility]10-28-2024 10:08-0400Body olbkjy493.13 cmUniversity [facility]als [facility]10-28-2024 10:08-0400Body mass index (BMI) [Ratio]30.4 kg/k2FhpmpfyrnUniversity Hospitals [facility] Center10-28-2024 10:08-0400Body ywmslw21.39 kgUniversity Hospitals [facility] 02-25-2024 10:08-0400Diastolic blood uydwigjq91 mm[Hg][facility]10-28-2024 10:08-0400Heart rate61 /[facility] 02-25-2024 10:08-0400Respiratory rate12 /[facility] 02-25-2024 10:08-0400Systolic blood waxlfvnn187 mm[Hg][facility]03-22-2024 09:05-0400Body .13 cmUniversity [facility]03-22-2024 09:05-0400Body mass index (BMI) [Ratio]29.8 kg/y0XojyakvqvUniversity Hospitals [facility] Center03-22-2024 09:05-0400Body trkebb61.2 kgUniversity Hospitals [facility]03-22-2024 09:05-0400Diastolic blood mlidzoqa85 mm[Hg][facility]03-22-2024 09:05-0400Heart rate62 /[facility]03-22-2024 09:05-0400Respiratory rate12 /[facility]03-22-2024 09:05-0400Systolic blood mm[Hg][facility]10-24-2023 16:00-0400Body heightBenjamin Ball Other [facility] [employer] Other [id number] 16:00-0400Body mass index (BMI) [Ratio] 30.44 kg/z3Etwwlcmp Ball Other [facility] [employer] Other 10-24-2023 16:00-0400Body .54 kgBenjamin Ball Other [facility] [employer] Other 10-24-2023 16:00-0400Diastolic blood mm[Hg] Ovi Ball Other [facility] [employer] Other 10-24-2023 16:00-0400Respiratory rate12 /minBenjamin Ball Other [facility] [employer] Other 10-24-2023 16:00-0400Systolic blood jqwfjiib675 mm[Hg] Ovi Ball Other [place] [employer] Other 03-20-2023 16:30-0400Body heightBenjamin Ball Other [employer] Other 03-20-2023 16:30-0400Body mass index (BMI) [Ratio] 31.33 kg/z2Tccyvtue Ball Other [employer] Other 03-20-2023 16:30-0400Body .58 kgBenjamin Ball Other [employer] Other 03-20-2023 16:30-0400Diastolic blood uynfnhbk40 mm[Hg] Ovi Ball Other [employer] Other 03-20-2023 16:30-0400Respiratory rate12 /minBenjamin Ball Other [employer] Other 03-20-2023 16:30-0400Systolic blood lmtuvoij323 mm[Hg] Ovi Ball Other [employer] Other 08-24-2022 11:00-0400Body heightCollyg Morrissey Other [employer] Other Encounters Encounter DateEncounter TypeCare ProviderFacilityStart: 02-18-2025 End: 15-06-3442hditezyfbvWlrffzyk Ball DO Work Phone: [phone]-Xtmazyrts [facility] Onlnine PulmonaryStart: 02-18-2025 End: 02-48-8888Iqqpqds encounter procedureAlina Aguilar APRN [facility] Work Phone: Start: 01-21-2025 End: 51-03-5006vfcncuvvjmMiqneltn Ball DO Work Phone: [facility] Work Phone: Start: 01-21-2025 End: 92-10-4826Navdsxw encounter procedureBrina Morrissey MD-[facility] Work Phone: Start: 12-22-2024 End: 07-45-1169lqlumuiqeoBpyxbkuMami Guy MDFacility:[facility] Start: 12-08-2024 End: 85-60-0412nifnhzaepiUjxsflcw Ball DO Work Phone: [facility] Work Phone: Start: 12-08-2024 End: 39-33-7629Uebagol encounter procedureBenjamin Ball DO-[facility] Work Phone: Start: 75-05-2402Mar-patient / Non-visitBenjamin Ball DO-[facility] Work Phone: Start: 11-24-2024 End: 42-67-8038dpgnrzxqxuRzqpnptg Ball DO Work Phone: [facility] Work Phone: Start: 11-24-2024 End: 80-11-3073Rhxpsui encounter procedureBrigitte Morris APRN-[facility] Work Phone: Start: 11-06-2024 End: 93-86-7040XnbmcrSiqfogs C Windnagel [employer] Other Phone: aNA BELLEVUEComment on above:Cerebral infarction, left hemisphere (HCC)Start: 58-76-5788Vdy-patient / Non-visitBenjamin Ball DO- [facility] Work Phone: Start: 67-62-7369Dzn-patient / Non-visitBenjamin Ball DO-[facility] Work Phone: Start: 09-08-2024 End: 43-19-5011wvibaggwpfRnkqalzGood Guy MDFacility:[facility] Start: 24-00-2045Jen-patient / Non-visitBenjamin Ball DO-[facility] Work Phone: Start: 09-02-2024 End: 34-15-9951lxyspeihuiKvsggujusRiverview Health Institute Work Phone: Start: 09-02-2024 End: 60-43-0056Jqcnkpt encounter procedureFirpioneer [facility] Physician [facility] Work Phone: Start: 08-25-2024 End: 68-11-1836tzisntyqavTpbkaoebaRiverview Health Institute Work Phone: Start: 08-25-2024 End: 99-83-5294Veylidm encounter procedureFaizan Physician [facility] Work Phone: Start: 05-06-2024 End: 59-03-2470itdkvzxiurQnhnadadmRiverview Health Institute Work Phone: Start: 05-06-2024 End: 07-15-9628Uebrbyl encounter procedureFirpioneer [facility] hospital [facility] Physician [facility] Work Phone: Start: 04-14-2024 End: 23-20-4676Wvgwan outpatient visit 25 Joaquin Yang [employer] Work Phone: noms [facility] [facility] ROUTEComment on above:Obstructive sleep apnea syndrome (Primary Dx); Cerebral infarction, left hemisphere (CMS/HCC); Hypoxia; Sleep deprivationStart: 04-14-2024 End: 55-58-8413ohyaafffubHWIIWX GILLMORNot AvailableStart: 04-14-2024 End: 15-05-8605Uqvnvf flowsFaustino Yang [employer] Work Phone: noms [facility] STATE ROUTEStart: 04-14-2024 End: 80-68-7047Jluhxc flowsFaustino Yang [employer] Work Phone: noms [facility] ROUTEStart: 03-17-2024 End: 17-34-8772ymzswlibumYpatplwmgRiverview Health Institute Work Phone: Start: 03-17-2024 End: 93-83-4138Vgrdiek [facility]At[facility] Work Phone: Start: 72-05-5466Piw-patient / Non-visitFirgarlands [facility] Work Phone: Start: 81-06-9446Cxq-patient / Non-visitFirelands [facility] Work Phone: Start: 91-80-9217Twb-patient / Non-visitFirelands [facility] Work Phone: Start: 72-83-3168Iqk-patient / Non-visitFirelands [facility] Work Phone: Start: 02-25-2024 End: 11-25-7783pxsejdpbbqZhrkuiiqqRiverview Health Institute Work Phone: Start: 02-25-2024 End: 85-15-4457Lsqnrbd encounter procedureAt[facility] Work Phone: Start: 02-15-2024 End: 76-81-1447IzfzxxLgborvKash Rosa MD Work Phone: NOWW ENTComment on above:LPRD (laryngopharyngeal reflux disease)Start: 01-17-2024 End: 33-94-5388JmfkknQvsgpsxlCapital [facility] ROUTEComment on above: Cerebral infarction, left hemisphere (CMS/HCC) (Primary Dx)Start: 01-01-2024 End: 24-16-0359nhthmuzamvBwzkjrwkvRiverview Health Institute Work Phone: Start: 01-01-2024 End: 07-86-3604Mejsoch encounter procedureAt[facility] Work Phone: Start: 20-67-7710Tqw-patient / Non-visitUn[facility] Work Phone: Start: 10-08-2023 End: 65-16-0401ifxbctlporFYRWQT GILLMORNot AvailableStart: 09-26-2023 End: 80-59-9300lekbztdffgHTUOYJ H TIMMISNot AvailableStart: 09-13-2023 End: 23-16-6500Lbzwbuvce Result EncounterHilary Duran Rosa MD Work Phone: noms External Department UnsolicitedStart: 09-13-2023 End: 15-88-2002Tvqfumoys Result EncounterHilary Duran Rosa MD Work Phone: noms External Department UnsolicitedStart: 08-15-2023 End: 51-46-6673kigzdsvovbHTYSRF H TIMMISNot AvailableStart: 07-20-2023 End: 56-01-4984wbptqzarunWqytkhieiSelect [facility] Work Phone: Start: 07-20-2023 End: 08-87-0254Cdourqm encounter [facility] Work Phone: Start: 07-04-2023 End: 92-54-2389Bduoxte encounter procedureAt[facility] Work Phone: Start: 04-17-2023 End: 01-76-8222ynbxwqagmsYuridumg [facility] Other [employer]locity [employer] Other Start: 43-21-4898Kbihpkcuj encounterBenjamin BallFPG [facility] ClinicStart: 03-13-2023 End: 53-71-1792urtdgdcpoyVhamxekc [facility] Other [employer]Taglocity [employer] Other Start: 07-06-4660Rfyyptxbu encounterBenjamin BallFPG [facility] ClinicStart: 03-07-2023 End: 79-75-3053ukcwbxtmqiDczwtkhs [facility] Other [employer] Other Start: 10-86-9838Aggmxnoil encounterBenjamin BallFPG [facility] ClinicStart: 03-01-2023 End: 06-64-0101gsdzqyrhlqFaglzwgs Ball Other [employer] Other Start: 09-89-3299Fdualyyit encounterBenjamin BallFPG [facility] ClinicStart: 02-28-2023 End: 17-23-8958bzrxbcbkayHpyjhctk Ball Other [employer] Other Start: 28-15-7534Xlzvyhqsf encounterBenjamin BallFPG [facility] ClinicStart: 02-22-2023 End: 15-78-5696hmljyhcatvTjqfiwnd Ball Other [employer] Other Start: 42-76-0829Lvijbdvxx encounterBenjamin BallFPG [facility] ClinicStart: 02-21-2023 End: 31-97-8967bwehuimeexQuoeepvm Ball Other [employer] Other Start: 41-71-8153Oqnnbobpx encounterBenjamin BallFPG [facility] ClinicStart: 02-20-2023 End: 49-83-6181nydopwyvvxVnkdhywu Ball Other [employer] Other Start: 47-46-1906Qanseb outpatient visit 25 minutes Ovi BallFPG [facility] ClinicStart: 01-23-2023 End: 16-38-4549kilessyykkIryeylys Ball Other [employer] Other Start: 65-53-4946Jtldgkjfz encounterBenjamin BallFPG [facility] ClinicStart: 01-16-2023 End: 89-00-6349vkxibrxmthJpazqhj Calvey Other [employer] Other Start: 46-70-3642Gpvfsx outpatient visit 15 minutes Brina Lisa [facility] OrthopedicsStart: 01-05-2023 End: 13-98-2218ujbrbpxratABZRMFOMercy Health [facility] Start: 34-43-8991xyclkrpivyLVYZNAQ ANTWON .Facility:Y1Bxjev: 09-01-2022 End: 06-53-3421ugynntwehiQSKKLKL HALKER .Facility:J0Kagzf: 07-31-2022 End: 08-48-8260jepyivrgwqCnafkkc Cal[place] Other [place] [employer] Other Start: 15-82-9561Xhljswrnu encounterCollyg Mauricio Medical ClinicStart: 07-26-2022 End: 57-27-7538nrnrvujiaxSC OVI MAURICIOFacility:K9Cfqok: 07-26-2022 End: 53-18-3231ojndqermdiVQBPJBLMercy Health [facility] Start: 07-25-2022 End: 76-93-2943vbiemkvfhbMIRRIYLZPOHC LAKSHMIPATHY .Facility:T0Kndre: 07-20-2022 End: 45-25-2666uxjaurkahxSNHXDXMOFCVY LAKSHMIPATHY .Facility:R1Dbmmi: 07-19-2022 End: 04-54-7660zzrimaneqiWY OVI [facility] [employer] Other Start: 34-37-8945Zlqjtvxtv encounterBenligia Mauricio Medical ClinicStart: 07-17-2022 End: 27-55-6068ekkybmkcbjKaabskkw Hang Other [place] [employer] Other Start: 14-73-2315Rcbypnb encounter procedureBenligia Mauricio Medical ClinicStart: 06-20-2022 End: 82-88-8132baqknlhlirUU ELIZABETH JESSICA .Facility:E5Xbpcr: 47-64-4597Qmlvyaouy encounterColleen Lisa Mauricio Medical ClinicStart: 06-07-2022 End: 87-28-0675jzzsoprknjRPUFHYW ALGHOTHANINorth [employer] Other Start: 12-47-1997Ftwjkcvbw for preprocedural laboratory examinationMOALICE HYDE MEDICAL CENTERJOSIAH Butlerue HospitalStart: 05-15-2022 End: 36-21-1697nmakszvhjtGYGEAQQ ALGHOTHANIFacility:A7Glsvc: 05-15-2022 End: 89-80-1053Htnzitiau for preprocedural laboratory examinationMOALICE HYDE MEDICAL CENTERJOSIAH MEDEIROSFacility:I0Acsqs: 78-56-7554gciazexwnvUO ELIZABETH S JESSICA .Facility:H1 Start: 04-28-2022 End: 82-69-3696lidyhdiwqkBK OVI BALLFacility:E6Hlbcx: 85-40-3930xanzkjlrpp DR DIOR BALLFacility:K2Mqbkg: 46-10-9329pmvjlfragyYU OVI MAURICIO Facility:G9Gxopa: 30-91-2712cuvncwtkbfGA OVI BALLFacility:R6Xucwl: 68-44-8969tywulvvqrtKY ELIZABETH S JESSICA .Facility:T2Ytslh: 93-59-5583jxpnykmycvXA OVI BALLFacility:I9Fwbfj: 02-27-2022 End: 75-04-4996vogswyimzcSU OVI BALLFacility:N4Crfqc: 02-23-2022 End: 21-45-0278bepsstmhmlEWOB CRISTOBAL .Facility:J6Pstxv: 02-07-2022 End: 52-85-3218kkmzoaizhtSW ELIZABETH S JESSICA .Facility:T4Cozkq: 01-18-2022 End: 71-29-6640iecccqorslDkzvmge Calvey Other [place] [employer] Other Start: 48-03-6615Lzipox outpatient visit 15 minutes Brina [facility] OrthopedicsStart: 01-09-2022 End: 31-92-0820dqikaxokleNFJA CRISTOBAL .Facility:R0Eefbg: 12-29-2021 End: 81-88-4211jqrxfeviqpEWFU CRISTOBAL .Facility:S5Xckvt: 12-21-2021 End: 11-98-1614fjesfcrhadVxorkmi Ghanshyam Other [place] [employer] Other Start: 90-74-8981Gzmepf outpatient new 30 minutes Brina MorrisseyFPG [facility]icsStart: 12-21-2021 End: 44-83-2482Npzukdr encounter procedureMD Brina Morrissey Work Phone: [facility] Start: 12-13-2021 End: 97-45-2187fssjvvikiqGR ELIZABETH S JESSICA .Facility:T5Bdokl: 12-01-2021 End: 77-07-3641krhajwqsieFTZM SOLIS .Facility:W2Znkrp: 09-14-2021 End: 70-00-1500pqpzljinnaDU OVI BALLFacility:Q4Mruxj: 61-41-5037Ohyjo health examinationCoyg Morrissey Other [facility] [employer] Other Start: 12-25-2017 End: 94-37-7028Ajffxso encounterJonathan ZahlerFacility:FTMCStart: 12-18-2017 End: 15-71-2820Eahwdly encounterJonathan ZahlerFacility:[facility] [place] Procedures DateProcedureProcedure DetailPerforming ClinicianStart: 79-00-9298Linzende Identification OnlyStart: 89-73-6761Gxyap Culture 1Start: 80-89-7189VO videography Hypopharynx and Esophagus Views for swallowing function W speech and W barium contrast Maicol Rosa MD Work Phone: Start: 95-70-7068Ryxpxn-up visitFollow-upMOHAMAD ALGHOTHANIStart: 49-47-3910Fcspi X-ray of bilateral handsMD Brina Morrissey Work Phone: Start: 20-35-6781Yyrposaku for osteoporosisCollVan Ness campushernan Other Start: 35-35-8368Xwoewiplz for malignant neoplasm of colonCoAdventist Health St. Helena Other Start: 16-48-7844Vylxwvsap mammographyComelissa Morrissey Other Cough 786.2Colleen GhanshyamDepression screeningComelissa Morrissey Other Screening for malignant neoplasm of breastComelissa Morrissey Other Plan of Treatment DateCare ActivityDetailAuthorStart: 24-97-0963Xmbqjqcsg vaccinationInfluenza Vaccine (#1)[facility] HealthcareStart: 09-08-2024 End: 64-18-2295Tuaofga encounter ztmkipssl73/12/2025 11:00 AM EDT Office Visit [facility] [address] [place] [address] Brigitte Yang NP [address] [place], [place] NOMJEFFERSON ABINGTON HOSPITALYENIFER [facility] ROUTEStart: 04-14-2024 End: 47-21-1832Bivsiwo encounter procedureNOGALION HOSPITAL ROUTEComment on above:ArrivedStart: 30-59-8566Stwdsazgv vaccinationInfluenza Vaccine (#1)[facility] HealthcareComprehensive metabolic 1999 panel - Serum or PlasmaUniversity Hospitals Beachwood Medical CenterComprehensive metabolic 1999 panel - Serum or PlasmaUniversity Hospitals Beachwood Medical CenterComprehensive metabolic 1999 panel - Serum or Plasma [facility] Beach[facility] Medical CenterCT Chest WO contrastUniversity Hospitals Beachwood Medical CenterCT Chest WO [facility] HospitalMG Breast - bilateral ScreeningUniversity Hospitals Beachwood Medical CenterMR Kidney WO and W contrast IV [facility] Immunizations Immunization DateImmunizationNotesCare RvpupvtxWoldgwsy57-83-4247riujmuioo, high dose seasonal, preservative-freeUniversity Hospitals Beachwood Medical Center10-28-2024 influenza virus vaccine, unspecified formulationFelicia Windnagel [employer] Other Phone: [facility] CenterUqxksvhttr95-50-5967vauonqnpo, high dose seasonal, preservative-freeBenjamin Ball Other [facility] [employer] Other 568683-50-0904lwmqekmko virus vaccine, split virus (incl. purified surface antigen)Brina Morrissey Other [employer] Other [id number] virus vaccine, unspecified formulationUniversity Hospitals Beachwood Medical Center12-06-2021COVID-19 Vaccine Pfizer - Documentation Purposes OnlyBenligia Mauricio Other [facility]09-20-2021influenza virus vaccine, split virus (incl. purified surface antigen)Brina Morrissey Other [employer] Other 09486964-48-9052efwabdqwo virus vaccine, unspecified formulationUniversity Hospitals Beachwood Medical Center02-18-2021COVID-19 Vaccine Pfizer - Documentation Purposes OnlyBenligia Mauricio Other [facility]01-28-2021COVID-19 Vaccine Moderna - Documentation Purposes OnlyComaryannyg Morrissey Other [facility]01-28-2021COVID-19 Vaccine Pfizer - Documentation Purposes OnlyBenligia Mauricio Other [facility]11-11-2020influenza virus vaccine, split virus (incl. purified surface antigen)Brina Morrissey Other [employer] Other [id number] virus vaccine, unspecified formulationUniversity Hospitals Beachwood Medical Center2019influenza virus vaccine, split virus (incl. purified surface antigen)Brina Morrissey Other [employer] Other [id number] virus vaccine, unspecified formulationUniversity Hospitals Beachwood Medical Center11-28-2018influenza virus vaccine, split virus (incl. purified surface antigen)Brina Morrissey Other [employer] Other 11243716-27-2676kvjrghqsz virus vaccine, unspecified formulationUniversity Hospitals Beachwood Medical Center11-17-2017pneumococcal Conjugate, unspecified formulation; Translations: [Need for prophylactic vaccination ag ainst Streptococcus pneumoniae (pneumococcus)]Brina Morrissey Other [employer] Other 1000731-20-0749eewjdbbaumgf polysaccharide vaccine, 23 valentBenjamin Ball Other [facility]07-21-2017 pneumococcal conjugate vaccine, 13 valentBenjamin Ball Other [facility]10-12-2016influenza virus vaccine, split virus (incl. purified surface antigen)Brina Morrissey Other [employer] Other 10930733-77-8177yaaqfjrvf virus vaccine, unspecified formulationUniversity Hospitals Beachwood Medical Center Payers DatePayer CategoryPayerPolicy [id number] Cross Blue ShieldBCBS Member Subscriber Plan / Payer (Effective 2016-Present) Name: Giovanna Baum Relation to Subscriber: Self Name: Giovanna Baum Payer ID: Not on file Group ID: [id number] Type: Not on file Address: [facility] [address] [place] [id number] [id number] 2008Medicare [id number] [id number] 05wkw742-on59-376j-3t0c-421lz[id number] 2.16.840.1.716483.3.579.[id number] 2.16.840.1.649412.3.579.2.27545-37-4568Gzpaecg6616482 2.16.840.1.937345.3.579.2.98450-94-2868Hfnyphl4223283 2.16.840.1.438327.3.579.2.98833-78-3008Sohxowj6263529 2.16.840.1.991259.3.579.2.66433-48-9438Gzwtbrk7900032 2.16.840.1.661853.3.579.2.76413-77-9870Fdcfhqp5257774 2.16.840.1.734187.3.579.2.29767-30-8311Rzntsmw8342293 2.16.840.1.800351.3.579.2.58412-24-9215Lambahx8134270 2.16.840.1.345172.3.579.2.49830-14-0494Stuqbkx0221785 2.16.840.1.240917.3.579.2.24938-55-3819Yateyuu1901829 2.16.840.1.223871.3.579.2.65800-58-0978Jqhcztv8775247 2.16.840.1.140556.3.579.2.90254-57-1275Xkepnjs1668063 2.16.840.1.481915.3.579.2.50596-49-5083Rmvxpqn6249367 2.16.840.1.987835.3.579.2.99767-18-9818Kklpedm4258661 2.16.840.1.577994.3.579.2.58295-45-4422Nncrmqs0008700 2.16.840.1.818137.3.579.2.08404-69-3797Hongsvt6532219 2.16.840.1.397622.3.579.2.00977-55-1062Qewpazo3583610 2.16840.1.023674.3.579.2.33969-88-1237Ljsmrkg0004981 2.840.1.427958.3.579.2.66173-13-2221Fmiaozt2113116 2.840.1.688287.3.579.2.24720-60-9392Wedsdyp8416482 2.840.1.744976.3.579.2.51242-64-3395Wotuuyg7976336 2.840.1.183055.3.579.2.74958-28-4243Xmxrrwf4671567 2.840.1.184657.3.579.2.10189-17-4254Ulwhaqi2456719 2.840.1.362094.3.579.2.59237-40-9992Hqjdmri2876311 2.16840.1.463216.3.579.2.046783-33-4932Mqghbyj0231448 2.16840.1.447325.3.579.2.093074-57-0407Qjfxkvf0550870 2.16.840.1.636188.3.579.2.535717-21-0146Tvxwiae9079165 2.16840.1.307308.3.579.2.284098-93-9184Emgebek577941951 2..840.1.214068.3.579.2.25514-99-6324Dnkltyj380918387 2.16.840.1.496554.3.579.2.196 Social History DateTypeDetailFacilityTobacco smoking status NHISUnknown if ever smokedKettering Health [facility] Work Phone: Start: 17-79-8701Lna Assigned At [facility] Hamiltontart: 10-08-2023 End: 99-31-7085Kdk Assigned At [facility] [employer] Other Start: 06-28-2023 End: 43-57-1858Jbijkiw smoking status NHISNever smoked tobacco (finding) [facility] Hospitaltart: 35-71-3615Nefdwqm use and exposure Smokeless tobacco non-userNOHI HealthcareStart: 08-15-2023 End: 62-70-6243Oeuqvkhef beverage intakeCurrent drinker of alcohol (finding)[facility] HealthcareStart: 10-08-2023 End: 99-23-6799Xdxomaq of Social functionNOMS HealthcareHow often to you have a drink containing alcohol?Monthly or lessNOMS HealthcareHow many standard drinks containing alcohol do you have on a typical day?1 or 2NOMS HealthcareHow often do you have 6 or more drinks on 1 occasion?NeverNOMS HealthcareStart: 10-08-2023 Alcohol Commentcaffeine: 1-2 cups per dayNOMS HealthcareStart: 59-66-1980Zip assigned at birthNot on fileNOHI HealthcareStart: 03-17-2024 End: 96-60-2912NpvFybzkc (finding)[facility] Hospitaltart: 43-81-2151Mezhfhw CommentSociallyNOHI HealthcareStart: 42-41-3606IjqRynvxvFCSJ Healthcare Functional Status IggkPokocsbsmjIvnfjwRoxvehxk17-49-4207Mngnf score [AUDIT-C]1 10/08/2023 7:19 AM [facility]yFormerly [facility] Clinical Notes 12-01-2021 to 11-24-2024 Note Date & OpwlQwpnMpgbslcq47-57-1092 Evaluation note* Diagnosis Onset Date Resolution Status [...] insomniaacuteAut 2024 9:47amRenal mass, leftacuteAugust 2024 9:47am [facility] Work Phone: 1(918) 194-997007-28-2025 Evaluation note* Diagnosis Onset Date Resolution Status [...] 2024 10:28amCarpal tunnel syndrome, rightacuteSeptember 2024 10:28am [facility] Work Phone: 1(157) 534-289207-28-2025 Evaluation note* Diagnosis Onset Date Resolution Status [...] 10:31amUpper airway cough syndrome acuteOctober 2024 10:31am [facility] Work Phone: 1(487) 324-630005-06-2025 Evaluation note* Diagnosis Onset Date Resolution Status Admit Date Arthritis of carpometacarpal (CMC) joint of left thumb acuteMay 2024 10:11amArthritis of carpometacarpal (CMC) joint of right thumbacuteMay 2024 10:11amCarpal tunnel syndrome, leftacuteMay 2024 10:11amCarpal tunnel syndrome, rightacuteMay 2024 10:11am [facility] Work Phone: 1(181) 660-989404-28-2025 Evaluation note* Diagnosis Onset Date Resolution Status [...] 2024 10:11amCarpal tunnel syndrome, rightacuteMay 2024 10:11am [facility] Work Phone: 1(620) 306-823210-28-2024 Evaluation note* Diagnosis Onset Date Resolution Status [...] 2024 8:46amCarpal tunnel syndrome, rightacuteJanuary 2024 8:46am [facility] Work Phone: 1(195) 521-490309-03-2024 Evaluation note* Diagnosis Onset Date Resolution Status [...] 10:03am PneumoniaacuteNovember 2023 10:03amPrimary hypertensionacuteNovember 2023 10:03am [facility] Work Phone: 1(626) 576-667901-19-2024 Marta received fax from [facility] requesting patient hold [...] asked them to contact Dr. Arriola for clearance.[facility]12-19-2023 Evaluation note* Encounter Date Diagnosis Assessment Notes Treatment Notes Treatment Clinical Notes Mar, Acute cerebral infarction (ICD-1 0 - I63.9) Mar,erebral atherosclerosis (ICD-10 - I67.2) [employer] Other 11-01-2023 Evaluation note* Encounter Date Diagnosis Assessment Notes Treatment Notes Treatment Clinical Notes Feb, Acute cerebral infarction (ICD-1 0 - I63.9) [employer] Other 11-01-2023 Evaluation note* Encounter Date Diagnosis Assessment Notes Treatment Notes Treatment Clinical Notes Feb, Bruit (ICD-10 - R09.89) [employer] Other 10-25-2023 Evaluation note* Encounter Date Diagnosis Assessment Notes Treatment Notes Treatment Clinical Notes Jan, Transient left leg weakness (ICD -10 - R29.898) Jan,Jerking movements of extremities (ICD-10 - R25.2) [employer] Other 10-24-2023 Evaluation note* Encounter Date Diagnosis [...] the risk for cerebrovascular and cardiovascular disease. [employer] Other 09-19-2023 Evaluation note* Encounter Date Diagnosis [...] Dec,ain in left hand (ICD-10 - M79.642) [employer] Other 09-08-2023 NoteCardiology Clinic Note Chief Complaint: abnormal stress HPI: Giovanna Baum is a 82 y.o. female With [...] in all muscle groups, (more content not included)...[facility]09-08-2023 NotePatient here for 6 mo follow up CAD, hypertension, and hyperlipidemia. Has not been taking aspirin because she doesn't like taking a lot of pills. Says she's only had chest pain once recently. Sees Dr. Smith and had CT chest in September. [facility]04-03-2023 Evaluation note* Encounter Date Diagnosis Assessment Notes Treatment Notes Treatment Clinical Notes Jul, Pulmonary nodule (ICD-10 - R91.1) RUL 10m m nodule - 06/3022ough (ICD9-CM - 786.2) Jul,Mild persistent asthma without complication (ICD-10 - J45.30) [employer] Other 03-29-2023 NoteCardiology Clinic Note Chief Complaint: [...] motor function in all (more content not included)...[facility]03-23-2023 NoteCONSULTATION CONSULTATION DATE: 07/20/2022 TO: Dr. Mauricio [...] be helping some of her pain symptoms.[facility] DaytonSupcquew62-89-2518 Evaluation note* Encounter Date Diagnosis Assessment Notes Treatment Notes Treatment Clinical Notes Jun, Pulmonary nodule (ICD-10 - R91.1) RUL 10m m nodule - 06/3022 [employer] Other 03-20-2023 Evaluation note* Encounter Date Diagnosis [...] use, the patient reduces the risk for AR, CVA, HTN, cardiac dysrhythmias and sudden cardiac [...] mammogram for breast cancer (ICD-10 - Z12.31) [employer] Other 02-08-2023 Evaluation note* Encounter Date Diagnosis Assessment Notes Treatment Notes Treatment Clinical Notes May, ASHD (arteriosclerotic heart dis ease) (ICD-10 - I25.10) LHC: moderate, nonobstructive coronary disease - 05/2022 [employer] Other 02-08-2023 NotePatient here for follow up [...] light-headedness. All other systems reviewed and are negative.[facility] 06-07-2022 NoteCardiology Clinic Note Chief Complaint: [...] QT Interval 472 QTC CALCULATION(BAZETT) 442 P [place] 29 R-[place] -35 T Wave [place] 59 Impression Sinus bradycardia Left axis deviation Left bundle branch block Abnormal ECG When compared with ECG of 30-NOV-2008 12:01, Premature atrial comple (more content not included)...[facility]10-27-2022 NoteCONSULTATION CONSULTATION DATE: 02/23/2022 This is [...] will be followed in the clinic thereafter.[facility] DaytonCwuvgzmd83-31-4482 Evaluation note* Encounter Date Diagnosis Assessment Notes [...] Dec,Numbness in both hands (ICD-10 - R20.0) [employer] Other 09-01-2022 NoteCONSULTATION CONSULTATION DATE: 12/29/2021 HISTORY [...] patient is in agreement to move forward.[facility] DaytonJqvfcsjz51-17-8874 Evaluation note* Encounter Date Diagnosis Assessment Notes [...] Nov,Numbness in both hands (ICD-10 - R20.0) [employer] Other 08-04-2022 NoteCONSULTATION CONSULTATION DATE: 12/01/2021 HISTORY [...] followed up in the office post procedure.[facility] DaytonEvaluation noteNo assessment information [facility] Work Phone: Evaluation noteNo InformationNort [employer] Other Evaluation note* Diagnosis Onset Date Resolution [...] annual wellness visit, subsequentnoneactiveScreening mammogram for breast cancerSt. [facility] Work Phone: Evaluation note* Diagnosis Onset Date Resolution Status Arthritis of carpometacarpal (CMC) joint of left thumb acuteArthritis of carpometacarpal (CMC) joint of right thumbacuteCarpal tunnel syndrome, leftacuteCarpal tunnel syndrome, rightacute [facility] Work Phone: Evaluation note* Diagnosis LPRD (laryngopharyngeal reflux disease) Acute laryngitis, without mention of obstruction documented in this encounter [facility] HealthcareEvaluation note* Diagnosis Onset Date Resolution Status Arthritis of carpometacarpal (CMC) joint of left thumb acuteArthritis of carpometacarpal (CMC) joint of right thumbacuteCarpal tunnel syndrome, leftacuteCarpal tunnel syndrome, rightacuteASHD (arteriosclerotic heart disease)acuteCerebral atherosclerosisacuteElevated cholesterolacuteLumbar spondylosisacuteMajor depressive disorder, recurrent, in full remissionacuteMild persistent asthma without complicationacuteObstructive sleep apneaacutePrimary hypertensionacute [facility] Work Phone: Evaluation note* Diagnosis Obstructive sleep apnea syndrome- Primary Obstructive sleep apnea (adult) (pediatric) Cerebral infarction, left hemisphere (CMS/HCC) Unspecified cerebral artery occlusion with cerebral infarction Hypoxia Hypoxemia Sleep deprivation Problems related to lack of adequate sleep documented in this encounter [facility] HealthcareEvaluation note* Diagnosis Cerebral infarction, left hemisphere (CMS/HCC)- Primary Unspecified cerebral artery occlusion with cerebral infarction documented in this encounter [facility] HealthcareEvaluation note* Diagnosis Onset Date Resolution [...] mammogram for breast cancer noneactiveApril 2024 9:55am [facility] Work Phone: Evaluation note* Diagnosis Cerebral infarction, left hemisphere (HCC) Unspecified cerebral artery occlusion with cerebral infarction documented in this encounter [facility] HealthcareHistory general Narrative - Reported* Type Description Date Medical History Esophageal reflux Medical Historyseasonal allergiesMedical HistoryOSAMedical HistoryHypertension Surgical HistoryAPPENEDECTOMYSurgical HistoryHYSTERECTOMYSurgical HistorySINUS Surgical HistoryLEFT HANDSurgical HistoryHEART CATHSurgical History CHOLECYSTECTOMY [employer] Other History general Narrative - Reported* Type Description Date Medical History Esophageal reflux Medical Historyseasonal allergiesMedical HistoryOSAMedical HistoryHypertension Medical HistoryASHD (arteriosclerotic heart disease)Surgical History APPENEDECTOMYSurgical HistoryHYSTERECTOMYSurgical HistorySINUSSurgical History LEFT HANDSurgical HistoryHEART CATHSurgical HistoryCHOLECYSTECTOMYSurgical Historycardiac catheterization06/07/22 [employer] Other Hisxeiz general Narrative - Reported* Type Description Date [...] History CHOLECYSTECTOMYSurgical Historycardiac catheterization06/07/22Hospitalization HistorySEE SURGICAL HX [employer] Other Reason for referral (narrative)No reason for referral information availableSumma Health [facility] Work Phone: Summary Purpose Family History Relationship [...] Admit Date [facility] Cerebral atherosclerosis August 25 [...] 2024 9:55am Screening mammogram for breast cancer [facility] 2024 9:55am Chief Complaint Admit Date 6 [...] 12:3 7pm ASHD (arteriosclerotic heart disease) [facility] 2024 9:47am Cerebral atherosclerosis December 08 9:47am [...] 2024 12:3 7pm ASHD (arteriosclerotic heart disease) [facility] 2024 9:47am Cerebral atherosclerosis December 08 9:47am [...] January 21, 2025 10:28am Transfer of care -[facility] tx, Asthma February 18, 2025 10:31am [...] section and content) DATE CREATED AUTHOR 12/29/2017 [facility] DATE CREATED AUTHOR AUTHOR'S ORGANIZ ATION 12/25/2021 [facility] DATE CREATED AUTHOR AUTHOR'S ORGANIZ ATION 09/08/2022 [facility] DATE CREATED AUTHOR AUTHOR'S ORGANIZ ATION 05/19/2023 [facility] DATE CREATED AUTHOR AUTHOR'S ORGANIZ ATION 04/16/2024 [facility] DATE CREATED AUTHOR AUTHOR'S ORGANIZ ATION 12/27/2024 [facility] Care Teams (unrecognized sec tion and [...] DateEnd Date Ovi Mauricio MD [address] [place] [phone] [facility] - [facility] Team Status: Active Member Role Status [...] DateEnd Date Ovi Mauricio MD [address] [place] [id number] PCP - [facility] Medicine07/10/23 Madhavi Arriola DO [address] [place] [address] Referring CevxfqusoVzrbmzwqp11/16/24Team MemberRelationshipSpecialtyStart Date End Date Ovi Mauricio MD [address] [place] [phone] PCP - GeneralInternal Medicine07/10/23 Madhavi Arriola DO [address] [place] [address] Referring HxufqfmcxWeplxpwnc38/16/24Team MemberRelationshipSpecialtyStart Date End Date Ovi Mauricio MD [address] [place] [address] PCP - GeneralInternal Medicine07/10/23 Team [...] Medicine07/10/23 Madhavi Arriola DO [address] [place] [address] Referring IpcuxruflAjhrbxxeo68/16/24 Team Status: Active Member Role/Relationship Status Dates [...] Arriola DO [address] [place] [address] Referring VrjepxduxAstzzcbcc42/16/24 Goals (unrecognized section and content) Goals may [...] BE BASED ON THE PRIMARY CLINICAL RECORDS. [employer] [facility]. provides no warranty or guarantee of the accuracy or completeness of information in this document.
[2025-04-06 09:13] VITALS: BP 118/65; PULSE 68; TEMP 36.3; O2SAT 96
[2025-04-06 09:57] VITALS: BP 147/72; PULSE 74; O2SAT 97
[2025-04-06 09:58] VITALS: BP 150/71; PULSE 70; O2SAT 96
[2025-04-06] MEDS: BUPIVACAINE HCL 0.25% PF 25 MG/10 ML VIAL INJ (09:59)
[2025-04-06] MEDS: LIDOCAINE HCL 2% 400 MG/20 ML MDV INJ (09:59)
[2025-04-06] MEDS: IOHEXOL 240 MG/ML - 10 ML VIAL INJ (09:59)
[2025-04-06] MEDS: METHYLPREDNISOLONE ACETATE 80 MG/ML VIAL INJ (10:00)
[2025-04-06] MEDS: 0.9 % SODIUM CHLORIDE 10 ML SYRINGE - SALINE FLUSH INJ (10:00)
--- NOTE | 2025-04-06 10:00 | P.ON_ITS ---
Date of procedure: 04/06/25 Pre-op diagnosis: Pain due to lumbar stenosis with neurogenic claudication Post-op diagnosis: same as pre-op Procedure: Procedure: Right L4-5, L5-S1 transforaminal epidural steroid injection Medications: Bupivacaine 0.25% 2cc, lidocaine 2% 1cc, depomedrol 80mg The patient was seen and examined in the preoperative holding area.? Informed consent was obtained and placed on the chart.? Patient was brought to the medical procedure unit and placed in the prone position where a timeout was completed verifying the correct patient, procedure site, position, and planned special equipment using sterile aseptic technique.? Under direct fluoroscopic visualization a 25-gauge Quincke tipped spinal needle was advanced to the designated neural foramen where contrast dye was injected to show adequate spread.? The needle was inserted at level right L4-5. There was no evidence of vascular or adverse uptake.? Epidural spread was appreciated.? The above- mentioned injectate was then placed in a 1.5 mL aliquot preceded by negative aspiration.? The needle was removed. The needle was inserted and the procedure repeated at level right L5-S1.? The surgery site was covered.? Patient was taken to the postprocedural recovery area and monitored for an appropriate length of time before found suitable for discharge in the accompaniment of a responsible adult. Anesthesia: Local Surgeon: Isaac Guy Pathology: none sent Condition: stable Disposition: no change
== END 2025-04-06 10:15 | disposition home or self-care (01) ==
PROVIDERS: PCP Internal Medicine; Visit Provider Anesthesiology
DX: M48.062 Spinal stenosis, lumbar region with neurogenic claudication (principal); M54.50 Low back pain, unspecified; G89.29 Other chronic pain
CPT/HCPCS: 64483; 64484; J0665; J1010; Q9966

== ENCOUNTER 2025-04-16 09:08 | Outpatient (OUT) | payer MEDICARE, BC, SELFPAY ==
--- OUTSIDE RECORDS SUMMARY | 2023-10-29 05:00 | XMS_ITS ---
Author Organization The [facility] in [place] Address [address] [place] [address] Care Team Providers Care Office Runner Name Role Phone Ovi Crooks DO Primary Care Provider Rogelio Pearl Unavailable [phone] REASON FOR VISIT F/U -1 YEAR ASTHMA Encounters Encounter Location Date Provider Diagnosis Pulmonary Medicine [address] [address] 10/29/2023 Rogelio Smith Plan Of Treatment No Information Progress Notes * Rupali [place] LDOB:[birth year] (84 yo F)Acc No.[id number]:10/29/2023 UNLOCKED PROGRESS NOTE Follow Up Patient: Rupali ARANGO :?Rogelio Smith DODOB:1940???Age:82 Y ???Sex:FemaleDate:4Phone:[phone]:[address] [place] [address], [id number]:Ovi Crooks DO Subjective: * Chief Complaints: * 1 . F/U -1 YEAR ASTHMA. * Medical History: Objective: * Vitals: Assessment: Plan: * Treatment: * * Electronic signature of Rogelio Smith DO on 04/16/2025 at 09:19 AM ESTSign off status: PendingVisit Status:?R/S (Rescheduled) * Provider: Harish Smith DO Date: 0 10/29/2023 Generated for Printing/Faxing/eTransmitting on:?04/16/2025 09:19 AM EST
--- OUTSIDE RECORDS SUMMARY | 2023-10-31 08:00 | XMS_ITS ---
Author Organization The [facility] in [place] Address [address] [place] [address] Care Team Providers Care Hazardous Material Specialist Name Role Phone Ovi Crooks DO Primary Care Provider Rogelio Pearl Unavailable [phone] REASON FOR VISIT F/U -1 YEAR ASTHMA Encounters Encounter Location Date Provider Diagnosis Pulmonary Medicine [address] [address] 10/31/2023 Rogelio Smith Plan Of Treatment No Information Progress Notes * Rupali RICHARDSON LDOB:[birth year] (84 yo F)Acc No.[id number]:10/31/2023 UNLOCKED PROGRESS NOTE Follow Up Patient: uRpali ARANGO :?Rogelio Smith DODOB:1940???Age:82 Y ???Sex:FemaleDate:4Phone:[phone]:[address] [place] [address], [id number]:Ovi Crooks DO Subjective: * Chief Complaints: * 1 . F/U -1 YEAR ASTHMA. * Medical History: Objective: * Vitals: Assessment: Plan: * Treatment: * * Electronic signature of Rogelio Smith DO on 04/16/2025 at 09:18 AM ESTSign off status: PendingVisit Status:?R/S (Rescheduled) * Provider: Harish Smith DO Date: 0 10/31/2023 Generated for Printing/Faxing/eTransmitting on:?04/16/2025 09:18 AM EST
--- OUTSIDE RECORDS SUMMARY | 2024-11-25 05:00 | XMS_ITS ---
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 Analyst Name Role Phone Ovi Crooks DO Primary Care Provider Rogelio Pearl Unavailable [phone] REASON FOR VISIT F/U -1 YEAR ASTHMA Encounters Encounter Location Date Provider Diagnosis Pulmonary Medicine [address] [address] 11/25/2024 Rogelio Smith Plan Of Treatment No Information Progress Notes * Rupali RICHARDSON LDOB:[birth year] (84 yo F)Acc No.[id number]:11/25/2024 UNLOCKED PROGRESS NOTE Follow Up Patient: Rupali ARANGO :?Rogelio Smith DODOB:1940???Age:84 Y ???Sex:FemaleDate:11/25/2024Phone:[phone]:[address] [place] [address], [id number]:Ovi Crooks DO Subjective: * Chief Complaints: * 1 . F/U -1 YEAR ASTHMA. * Medical History: Objective: * Vitals: Assessment: Plan: * Treatment: * * Electronic signature of Rogelio Smith DO on 04/16/2025 at 09:19 AM ESTSign off status: PendingVisit Status:?OFF CANC (OFFICE CANCEL) * Provider: Harish Smith DO Date: 0 11/25/2024 Generated for Printing/Faxing/eTransmitting on:?04/16/2025 09:19 AM EST
--- OUTSIDE RECORDS SUMMARY | 2025-04-13 06:44 | XMS_ITS | Continuity of Care Document ---
Author Organization [facility] Address [address] [place] [address] Phone Care Team Providers Care Police Crime Scene Technician Name Role Phone Ovi Crooks DO Primary Care Provider Brina Morrissey MD Attending Provider Ovi Crooks DO Referring Provider [phone] Alina Ramirez APRN Attending Provider Ovi Crooks DO Attending Provider [phone] Care Teams Patient Care Team Team Status: Active Member Role/Relationship Status Dates Ovi Crooks DO Primary Care Provider Active Visit Care Team Team Status: Inactive Member Role/Relationship Status Dates Ovi Crooks DO Primary Care Provider Active Start: January 21, 2025 End: January 21ollJesus Banks ProviderActiveStart: January 21, 2025 End: January 21, 2025 Visit Care Team Team Status: Inactive Member Role/Relationship Status Dates Ovi Crooks DO Primary Care Provider Active Start: February 18, 2025 End: February 18Le Ibarra ProviderActiveStart: February 18, 2025 End: February 18, 2025Alina Ramirez APRN ACNP-BCAttkrista ProviderActiveStart: February 18, 2025 End: February 18, 2025 Patient Care Team Team Status: Inactive Member Role/Relationship Status Dates Ovi Crooks DO Primary Care Provider Active Start: April 13, 2025 End: April 13alexander Crooks DOAttkrista ProviderActiveStart: April 13, 2025 End: April 13, 2025 Chief Complaint and Reason for Visit Chief Complaint Admit Date 4 months January 21, 2025 10:28am Transfer of care -[facility] tx, Asthma February 18, 2025 10:31am 4 month follow up April 13, 2025 10:41am Reason for Visit Admit Date Arthritis of [...] 10:31am Upper airway cough syndrome January 10:31am ASHD (arteriosclerotic heart disease) De cember 2024 10:41am Cerebral atherosclerosis April 13, 2025 10:41am Chronic kidney disease April 13 10:41am Elevated cholesterol April 13, 2025 10:41am Lumbar spondylosis April 13, 2025 10:41am Mild persistent asthma without complicat ion April 13, 2025 10:41am Multiple pulmonary nodules March 10:41am Obesity April 13, 2025 10:41am Obstructive sleep apnea April 13, 2 025 10:41am Primary hypertension April 13, 2025 10:41am Primary insomnia April 13, 2025 10:41am Renal mass, left April 13, 2025 10:41am Allergies, Adverse Reactions, Alerts Allergen Type Severity Reaction Last Updated Verified Status No Known Allergies Allergy Unknown April 13, 2025 10:43amYesActive Social History Smoking Status Status Start Date End Date Date of Observa tion Never smoked tobacco (finding) February 18, 2025 10:37am Observation Status Observation Response Date of Response Legal Sex Female (finding) Sex Assigned At BirthFemaleJuly 1940 Family History Relationship Condition Age at Onset Recorded Date/T urvashi sister Hypertension Unknown Diabetes mellitusUnknown Problems Active Problems Problem Diagnosis/Recorded Date Onset Date Status C omments Carpal tunnel syndrome, right July 03, 2023 4:45pm Unkno wn Active Upper airway cough syndromeOctober 2024 9:59amUnknownActiveElevation of levels of liver transaminase levelsNovember 2023 11:49amUnknownActive Primary insomniaJuly 2024 4:57pmUnknownActiveObstructive sleep apneaMarch 2023 4:45pmUnknownActiveCarpal tunnel syndrome, leftMarch 2023 4:45pm UnknownActiveMild persistent asthma without complicationMarch 2023 4:45pm UnknownActiveRenal mass, leftMay 2024 12:09pmUnknownActiveCT: hypodense nodule left kidney - 02/2024,MRI spine: 1.4cm left renal cyst - 08/2024,MRI: 1.3cm left renal hemorrhagic cyst - 09/2024MRI spine: 1.4cm left renal cyst - 10/2024 (repeat in year - 09/2025)Pleuritic chest painNovember 2023 11:48am UnknownActiveElevated cholesterolMarch 2023 8:56amUnknownActiveCerebral infarction, left hemisphereJuly 2024 4:54pmUnknownActiveCerebral atherosclerosisMarch 2023 4:45pmUnknownActiveHypersomniaJuly 2024 4:55pmUnknownActiveChronic kidney diseaseApril 2023 6:07pmUnknownActive Shortness of breath on exertionOctober 2024 10:00amUnknownActivePrimary hypertensionMarch 2023 4:45pmUnknownActiveMajor depressive disorder, recurrent, in full remissionMarch 2023 4:45pmUnknownActiveLPRD (laryngopharyngeal reflux disease)August 16, 2023 1:35pmUnknownActiveEvaluated by ENTMultiple pulmonary nodulesMarch 2023 4:45pmUnknownActiveCT: 10cm RUL - 09/2022, CT: 5mm (2), 7mm RUL - 04/2024No further imaging due to patient decisionGERD (gastroesophageal reflux disease)December 03, 2023 4:10pmUnknown ActiveArthritis of carpometacarpal (CMC) joint of right thumbMarch 2023 4:45pmUnknownActiveArthritis of carpometacarpal (CMC) joint of left thumbMarch 2023 4:45pmUnknownActiveLumbar spondylosisMarch 2023 4:45pmUnknown ActiveMRI: L1-2 mod spinal canal stenosis, L2-3 mod right foraminal stenosis, L3-4 mod right foraminal stenosis, L4-5 mod B/L foraminal stenosis, L5S1 mod left foraminal stenosis - 11/2024ObesityOctober 2023 9:49amUnknownActive ASHD (arteriosclerotic heart disease)July 03, 2023 4:45pmUnknownActiveLHC: LAD 40-50%, LCx 20%, RCA 30% - 05/2022Inactive/Resolved Problems Problem Diagnosis/Recorded Date Onset Date Status C omments Ground glass opacity present on imaging of lung March 17, 2024 10:31am Unknown Resolved Medications Medication Status Dose Units Route Directions Qty Days Refills S tart Date Stop Date End Date Reason(s) Instructions Adherence Escitalopram Oxalate 10 mg tablet Discontinued 0 .ROUTE.TOTRORW638Lcszq 2023 4:05pmAugust 2023 5:54amTAKE 1 TABLET EVERY DAYHydrochlorothiazide 25 mg tabletDiscontinued0.ROUTE.HKXSBFH208Qpckn 2023 3:54pmJanuary 2024 7:27pmTAKE 1 TABLET EVERY DAYEscitalopram Oxalate 10 mg tabletDiscontinued0.ROUTE.ZTMLXKN965Qsthct 2023 5:54amJune 2024 4:30pmTAKE 1 TABLET EVERY DAYOxybutynin Chloride 15 mg tablet extended release 51svKhbcbasjkqxq4.ROUTE.XDIAJXJ671Qktmqj 2023 5:54amJune 2024 4:30pmTAKE 1 TABLET EVERY DAYOmeprazole 40 mg capsule,delayed release(DR/EC) Discontinued0.ROUTE.OHZQEWY784Akpbgxmo 2023 11:46amSeptember 2024 7:26amTAKE 1 CAPSULE ONE TIME DAILY 30 MINUTES BEFORE MORNING MEALGabapentin 100 mg capsuleDiscontinued0.ROUTE.LCQZUNP898Shnhckl2024 7:27pmAugust 2024 9:37amTAKE 1 CAPSULE AT BEDTIMEHydrochlorothiazide 25 mg tabletDiscontinued 0.ROUTE.IPDMEYZ118Zfduknb2024 7:27pmOctober 2024 9:41amTAKE 1 TABLET EVERY DAYLosartan 50 mg tabletActive0.ROUTE.2024 12:11pmTAKE 1 TABLET EVERY DAYComplies with drug therapyMetoprolol Succinate 25 mg tablet extended release 24 daGjzstl86LRCMNulep42795Alq 2024 11:43am Complies with drug therapyEscitalopram Oxalate 10 mg tabletDiscontinued0.ROUTE .2024 4:29pmOctober 2024 6:46amTAKE 1 TABLET EVERY DAY Oxybutynin Chloride 15 mg tablet extended release 79ehJrxsem0.ROUTE.IIZRFLX928 September 28, 2024 4:30pmTAKE 1 TABLET EVERY DAYComplies with drug therapyGabapentin 100 mg tnwddwbJsmpke611DAKKFnwkn at mftyilf85834Tkwiws 2024 1:28pmComplies with drug therapyPantoprazole 40 mg tablet,delayed release (DR/EC)Vmzemxukplgr09 EVHUVctlz70017Ahiksikmy 12th, 2025 11:00pmOctober 2024 9:34amtake on an empty stomach, 30 minutes prior to bkfstClopidogrel 75 mg wxmalfBdkwsojixsis74JG PODailyOctober 2024 7:24amOctober 2024 7:25amClopidogrel 75 mg nnilmtSbklnobiknil60QAUJRdwbp52117Lqgwbpm 20th, 2025 7:25amOctober 2024 9:34amEscitalopram Oxalate 10 mg rtyletBxofpd86JOGHWdlbr18006Jrtefej 2024 6:46amComplies with drug therapyGabapentin 100 mg gixcpdaNeafecslqxkq599XUPV July 03, 2023 12:00amJanuary 2024 7:27pmFreeTextSig: TAKE 1 CAPSULE AT BEDTIME; Note: Source Status: Start; Refills: 3; Qty: 90 Capsule; Provider: Valeriy Dior ( )Escitalopram Oxalate 10 mg puxohtAjhhxvzocpng94 MGPODailyMarch 2023 12:00amMarch 2023 4:05pmFreeTextSig: TAKE 1 TABLET EVERY DAY; Note: Source Status: Taking; Provider: Valeriy Dior (NPI: [id number])Hydrochlorothiazide 25 mg wwcpuyQhqixcnbwhut84MSVMNocglNwbgh 2023 12:00amApril 2023 3:54pmFreeTextSig: TAKE 1 TABLET EVERY DAY; Note: Source Status: Taking; Provider: Valeriy Dior ( )Metoprolol Succinate 25 mg tablet extended release 24 gpQzivgzeuauht20XHEOUbjxbAehqx 2023 12:00amMay 2024 11:44amFreeTextSi tablet Orally Once a day; Note: Source Status: Taking; Provider: Valeriy Dior ( )Clopidogrel 75 mg dityxgBgwajwbpjuet63CJDCYwvefFhrlr 2023 12:00amOct2024 7:25am FreeTextSi tablet Orally Once a day; Note: Source Status: Start; Provider: Valeriy Dior EAtorvastatin 40 mg xdareuXzydzn7STGRIZapirHpjvw 2023 12:00am FreeTextSi tablet Orally Once a day; Note: Source Status: Taking; Provider: Valeriy Dior ( )Complies with drug therapyOxybutynin Chloride 15 mg tablet extended release 27esGptnhbjopmhn1QOSLEAnhuaJcuqg 2023 12:00am December 10, 2023 5:54amFreeTextSig: TAKE 1 TABLET EVERY DAY; Note: Source Status: Taking; Refills: 3; Qty: 90 Tablet; Provider: Valeriy Dior ( )Losartan 50 mg gfqtoxZyaxhiiofuci46ZAUZWvdhtWuywq 2023 12:00am September 04, 2024 12:11pmFreeTextSig: TAKE 1 TABLET EVERY DAY; Note: Source Status: Taking; Provider: Valeriy Dior ( )Isosorbide Mononitrate 30 mg tablet extended release 24 tsOzjizc7UWFKPTpgkhQgngn 2023 12:00am FreeTextSi tablet in the morning Orally Once a day; Note: Source Status: Taking; Provider: Valeriy Dior ( )Complies with drug therapy Aspirin 81 mg tablet,delayed release (DR/EC)Eldwznajnuoz26CXYYNahikUcljs 2023 12:00amMarch 2023 9:06amFreeTextSi tablet Orally Once a day; Note: Source Status: Taking; Provider: Valeriy Dior ( )Omeprazole 40 mg capsule,delayed release(DR/EC)Kingoiankrjn67IUHPZyxkaNhptq 2023 12:00am March 22, 2024 11:46amFreeTextSi capsule 30 minutes before morning meal Orally Once a day; Note: Source Status: Taking; Provider: Valeriy Dior EAspirin (Karon Low Dose Aspirin) 81 mg tablet,delayed release (DR/EC)Xmtefoemjlqj26IXCZ DailyMarch 2023 11:00pmMarch 2023 8:03amBudesonide-Formoterol (Symbicort) 160-4.5 mcg/actuation HFA aerosol wpypixkFibxukddobdv6KSDEUYMJZRMGJF Tw[facility] dailyCommunity [facility] Centerch 2023 11:00pmOctober 2024 9:34amFamotidine 20 mg zpuaabXgtdprfxnihg16HEJJQdigo at bedtimeOctober 2023 11:00pmApril 2024 9:00amCholecalciferol (Vitamin D3) 1,250 mcg (50,000 unit) tablet Jkmsrbqqcotp9329IZCRQZxfnQycnzv 2024 11:00pmOctober 2024 9:34am Fexofenadine 180 mg fgwkacRayulteqvdjv029XUYNCllocJtvjeg 2024 11:00pm February 18, 2025 9:34amClonazepam 0.5 mg tabletDiscontinued0.5MGPODaily at lclubrp00392Xcdayj 2024 11:00pmAugust 2024 1:28pmPrimary insomnia Primary insomniaadminister 30 minutes before bedtimeBaclofen 10 mg tablet DiscontinuedMGPOSept2024 11:00pmOctober 2024 9:33amOmeprazole 20 mg capsule,delayed release(DR/EC)Bbonib37OJYZLksafRczetfk 21st, 2025 11:00pm Complies with drug therapyHydrochlorothiazide 25 mg hcdfrgPmunpi85HLGSIhyxo February 17, 2025 11:00pmComplies with drug therapyCpap (Continuous Positive Airway Pressure) unitActive0.RouteOct2024 11:00pmAs directed at night time DME- [facility] [place] Immunizations Immunization Event Date Not Given Reason Dose Number Mobile Home Installer Lot Number Reason(s) Given Vaccine Information Statement (VIS) Detail Administration Location COVID-19 mRNA-1273 (Moderna) May 27, 2020 COVID-19 mRNA, Comirnaty (Soxiable)May 27OVID-19 mRNA, Comirnaty (Soxiable)June 17OVID mRNA, Comirnaty (Soxiable)April 04, 2021 Quadrivalent Influenza (mdv)March 26, 2017Fluzone TIV High-Dose 65YR+ February 25, [id number] [facility] CenterInfluenza, trivalentNovember [id number], trivalentNovember [id number] vaccine, quadrivalent, adjuvantedOctober [id number], unspecified formulationOctober 2015influenza, unspecified formulationNovember 2017influenza, unspecified formulationNovember 2018influenza, unspecified formulationNovember 2019influenza, unspecified formulationSeptember 2020influenza, unspecified formulationOctober neumococcal Conjugate Vaccine, 13 valentJuly 2016Pneumococcal Polysacc. Vaccine, 23 valent March 16, 2017 Vital Signs Vital Reading Result Reference Range Collection Date/Time Height 59 [in_i] February 18, 2025 9:85qvHxodde82.21 kgOctober 2024 9:37amHeart Rate67 /ijb87-656Exywdlc 2024 9:37amRespiratory rate20 /dyi40-74Ifcxvdd 2024 9:37amOxygen saturation by Pulse dwlgrinj77 %95-100October 2024 9:37amBP Jchzhvye441 mm[Hg]100-140[facility]ro[facility] 2024 9:37amBP Qvtefkxfw29 mm[Hg] 60-100October 2024 9:37amBMI (Body Mass Index)31.7 kg/v0Qojtuvf 2024 9:40qtHugqbz44 [in_i]April 13, 2025 10:94weFccsgg90.32 kgDeceer 2024 10:50amHeart Rate61 /jyy19-380Lpyohkfv 2024 10:50amRespiratory rate12 /myc99-29Elavmnkv 2024 10:50amBP Nolisatd329 mm[Hg]100-140Deceer 2024 10:50amBP Tmrqufkue96 mm[Hg]60-100Deceer 2024 10:50amBMI (Body Mass Index)31.7 kg/t3Fvrgxiol 2024 10:50am Advance Directives Advance Directive Response Recorded Date/ Time Advance Directives No December 21, 2021 11:20am Insurance Providers Guarantor Rupali Richardson Address [address] [facility] [address]Fcuwbil Info.Home Phone: Payer Group Member ID Coverage Type Subscriber Relationship to Subscriber Effective Date Expiration Date Shirley GUTIERREZ Id: [id number] L Baldosser Id: [id number] [address] [facility] [address] Home Phone: Email: [email or web address] [id number] L Baldosser Id: [id number] [address] [facility] [address] Home Phone: Email: [email or web address] Encounters Encounter Location(s) Arrival/Admit Date Discharge/Departure Date Discharge/Departure Disposition Provider(s) Departed Physician/ Provider Office Visit -[facility] January 21, 2025 10:28am January 21, 2025 10:47am Discharged to home care or self care (routine discharge) Brina Morrissey MD Departed Physician/ Provider Office Visit -[facility] February 18, 2025 10:31am February 18, 2025 11:22am Discharged to home care or self care (routine discharge) Jeff Coker APRN [facility] Departed Physician/ Provider Office Visit -[facility] April 13, 2025 10:41am April 13, 2025 11:43am Discharged to home care or self care (routine discharge) Ovi Crooks DO Recent Diagnosis Onset Date Admit Date Arthritis of carpometacarpal (CMC) joint of left thumb Unknown January 21, 2025 10:28am Arthritis of carpometacarpal (CMC) joint of right thumb Unknown January 21, 2025 10:28am Carpal tunnel syndrome, left Unknown Sep tember 2024 10:28am Carpal tunnel syndrome, right Unknown Se ptember 2024 10:28am GERD (gastroesophageal reflux disease) Unknown February 18, 2025 10:31am Shortness of breath on exertion Unknown February 18, 2025 10:31am Upper airway cough syndrome Unknown Octo 2024 10:31am ASHD (arteriosclerotic heart disease) Unknown April 13, 2025 10:41am Cerebral atherosclerosis Unknown Decembe r 2024 10:41am Chronic kidney disease Unknown April 13, 2025 10:41am Elevated cholesterol Unknown April 132024 10:41am Lumbar spondylosis Unknown March 10:41am Mild persistent asthma without complication Unkn own April 13, 2025 10:41am Multiple pulmonary nodules Unknown Decem 2024 10:41am Obesity Unknown April 13, 2 025 10:41am Obstructive sleep apnea Unknown April 13, 2025 10:41am Primary hypertension Unknown April 132024 10:41am Primary insomnia Unknown April 13, 2025 10:41am Renal mass, left Unknown April 13, 2025 10:41am Assessments Diagnosis Onset Date Resolution Status Admit Date Arthritis of carpometacarpal (CMC) joint of left thumb acuteSeptember 2024 10:28amArthritis of carpometacarpal (CMC) joint of right thumbacuteSept2024 10:28amCarpal tunnel syndrome, leftacute January 21, 2025 10:28amCarpal tunnel syndrome, rightacuteSept2024 10:28amGERD (gastroesophageal reflux disease)acuteOctober 2024 10:31amShortness of breath on exertionacuteOctober 2024 10:31amUpper airway cough syndromeacuteOctober 2024 10:31amASHD (arteriosclerotic heart disease)acuteDecember 2024 10:41amCerebral atherosclerosisacuteDeceer 2024 10:41amChronic kidney diseaseacuteDecekingman regional medical center 2024 10:41amElevated cholesterolacuteDeceer 2024 10:41amLumbar spondylosisacuteDeceer 2024 10:41amMild persistent asthma without complicationacuteDeceer 2024 10:41amMultiple pulmonary nodulesacuteDeceer 2024 10:41amObesity acuteDeceer 2024 10:41amObstructive sleep apneaacuteNcceer 2024 10:41amPrimary hypertensionacuteDeceer 2024 10:41amPrimary insomniaacute April 13, 2025 10:41amRenal mass, leftacuteDeceer 2024 10:41am Plan of Treatment [facility] 10:52amWe performed a cortisone injection into the bilateral carpal tunnel under sterile technique. The patient tolerated this well without complication. We discussed that the wrist/hand may feel numb and tingle for hours after this injection. We performed a cortisone injection into the bilateral carpal tunnel under sterile technique. The patient tolerated this well without complication. We discussed that the wrist/hand may feel numb and tingle for hours after this injection. We performed a cortisone injection into the bilateral thumb CMC joint under sterile technique. The patient tolerated this well without complication. We discussed that the finger may feel numb and tingle for hours after this injection. We performed a cortisone injection into the bilateral thumb CMC joint under sterile technique. The patient tolerated this well without complication. We discussed that the finger may feel numb and tingle for hours after this injection. 84-year-old woman with bilateral carpal tunnel syndrome and [...] each location - This is the patient's seventh injection - Patient was counseled that there [...] cellulitis in the area of steroid injection. Author Alina Ramirez [facility] HospitalAuthoredOctroberts [facility] 2024 11:43amPatient seems to be need to be established with our office after previously being followed by Dr. Smith at the [facility]. Patient's respiratory status appears to be stable with patient not utilizing any inhaled medications. PFTs in 2014 showed no obstruction, restriction, bronchodilator response or diffusion abnormality. Patient's minimal dyspnea with extended exertion may be related to age. Patient has chronic back pain which may also be contributing to decreased activity tolerance/stamina. Patient is not interested in repeating PFT. Discussed the role of uncontrolled GERD and rhinitis/postnasal drip in poorly controlled lower airways inflammation. Recommended patient utilize saline nasal rinse 1-2 times a day as needed for sinus discomfort, continue with daily antihistamine, and add H2 john at bedtime. Patient verbalized understanding. Patient was encouraged to continue with physical activity as able to help maintain activity tolerance/stamina. All questions were answered. The patient was advised to call us if there are any new respiratory issues or concerns. Follow-up in 6 months. Patient states no refills are required at this time. Author Ovi Crooks [facility] 2024 10:43pmThis patient is stable without activity related chest pain, dyspnea or lightheadedness. I instructed them to continue exercise at least 3x weekly and consume a low salt, low fat, high fiber diet. I instructed them to continue secondary prevention measures in reducing risks for recurrent events. LHC: LAD 40-50%, LCx 20%, RCA 30% - 05/2022 - medical management Echo: LVEF 50-55%, normal RV size/function, RVSP 42 - 02/2022 I instructed this patient on the benefits of adequate control of hypertension and diabetes, if appropriate. I have also instructed them to avoid use of NSAIDs due to the adverse effects on renal function. I instructed them on adequate fluid balance and to consume at least 48 oz of fluids daily. I also instructed them to monitor for an unexplained increase in weight and lower extremity edema. They have been instructed to notify the office for any changes or concerns. I have instructed this patient to consume a healthy, low-fat, low-salt diet. I have also encouraged them to continue exercise with weight loss to achieve/maintain a BMI < 30. I have instructed this patient on the correct procedure for obtaining home BP measurements:? - rest for 5 minutes w/o talking. - positioned w/ feet on floor and arms supported. - average best 2/3 readings w/ goal < 135/85. - update office w/ home readings in 2 weeks. Continue Losartan, HCTZ without interruption Continue close surveillance CT: hypodense nodule left kidney - 02/2024, MRI spine: 1.4cm left renal cyst - 08/2024, MRI: 1.3cm left renal hemorrhagic cyst - 09/2024 MRI spine: 1.4cm left renal cyst - 10/2024 (repeat in year - 09/2025) She denies CP, dyspnea, change in sputum or hemoptysis CT: 10cm RUL - 09/2022, CT: 5mm (2), 7mm RUL - 04/2024 No further imaging due to patient decision January, w/ RLE weakness No focal neurologic deficits Reviewed stroke symptoms and instructed to go to ER for suspicious symptoms. Continue secondary prevention measures Continue Atorvastatin and Plavix without interruption I have instructed this patient on a low fat, high fiber diet and exercise. I have discussed the primary and secondary prevention benefits attributed to lowering LDL cholesterol. I have also discussed the medical treatment of elevated cholesterol, which is based on the 10 year ASCVD risk. Continue Atorvastatin without interruption No ER visits for EA of asthma Continue mucolytics as needed Continue LABA/ICS Continue Symbicort without interruption PFT normal - 2014 This patient is aware of the benefits associated with DIVINA: With continued use, the patient reduces the risk for AK, CVA, HTN, cardiac dysrhythmias and sudden cardiac deaths. The patient is also aware of the association between DIVINA and morning headaches, daytime somnolence, fatigue and obesity, which also has been improved with continued use. The patient is compliant with treatment, wearing the equipment every night for greater than 4 hours. The patient is instructed to continue use of the CPAP for DIVINA treatment. Recent adjustments w/ her pressures. f/u Sleep Clinic Continues to be tired w/ AHI increased to 13 at latest OV Trial of Clonazepam at HS due to dreaming and awakening w/ physical acting out dreams I have instructed this patient on a low-fat, high-fiber diet.?? I have also instructed them to reduce calories, portions sizes, sweet drinks and snacks.?? I have also recommended they exercise for 30 minutes, 3-5 times weekly. They are aware of the comorbid conditions associated with excessive weight: Diabetes, HTN, Hyperlipidemia, CAD and arthritis. I have instructed this patient to avoid bending, twisting or lifting. I have also instructed on use of intermittent heat and ice as needed. They may schedule a massage or gentle manipulation. I instructed them on the safe use of Tylenol, Lidocaine and stretching exercises. I informed them of alternative modes of treatment for severe pain, which may include referral to physical therapy or pain management. - MRI: L1-2 mod spinal canal stenosis, L2-3 mod right foraminal stenosis, L3-4 mod right foraminal stenosis, L4-5 mod B/L foraminal stenosis, L5S1 mod left foraminal stenosis - 11/2024 DIVINA contributes Awakening at night, reacting to dreams. Compliant w/ PAP therapy - AHI fluctuates f/u Sleep Clinic d/c Gabapentin Trial of Clonazepine Future Tests Future scheduled test information is unavailable Pending Tests Pending diagnostic test information is unavailable Future Visits Future appointment information is unavailable Future Procedures Procedure Name Ordered Date Scheduled Date Sean Alcantara April 13, 2025 11:23am Future Medications Future medication information is unavailable Patient Instructions Patient instructions are unavailable
--- OUTSIDE RECORDS SUMMARY | 2025-04-16 09:18 | XMS_ITS | Patient Health Record ---
Author Organization [facility] in [place] Address [address] [place] [address] Care Team Providers Care Director Card Name Role Phone Ovi Crooks DO Primary Care Provider Rogelio Pearl Unavailable [phone] Allergies Allergen (clinical drug ingredient) Drug/Non Drug [...] Flu, Unspecified Unknown 02/17/2022 Administered Pneumococcal (Pneumovax 23)[id number] (COVID 19 Pfizer 30mcg/0.3mL)Enaiaag49/06/2021Administered Social History Tobacco Use: Social History Observation Description Date Details (start date - stop date) Never Smoker NA - NA Tobacco Use/Smoking Question Answer Notes Patient is a nonsmoker Tobacco Control (Standard) Question Answer Notes Tobacco use: Nonsmoker Problems Problem Type SNOMED Code ICD Code Onset Dates Problem Status W/U Status Risk Notes Problem Obstructive sleep ap ravi syndrome (disorder) (85529243) Obstructive sleep apnea (adult) (pediatric) (G47.33) ActiveconfirmedProblemObesity (832396506)Obesity, unspecified (E66.9)Active confirmedProblemUncomplicated mild persistent asthma (664247375)Mild persistent asthma, uncomplicated (J45.30)ActiveconfirmedProblemOveractive bladder (480010879)Overactive bladder (N32.81)ActiveconfirmedProblemLong-term current use of inhaled steroid (100151111)FPC (current) use of 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 (Z79.51)ActiveconfirmedProblemCoronary artery disease (54045352)Coronary artery disease (I25.10)ActiveconfirmedProblemParoxysmal atrial fibrillation (021148713) Paroxysmal atrial fibrillation (I48.0)ActiveconfirmedProblemBenign essential hypertension (7366218)Benign essential hypertension (I10)ActiveconfirmedProblem Multiple pulmonary nodules (744551994)Multiple pulmonary nodules (R91.8)Active confirmedProblemHypercholesterolemia (91981707)Hypercholesterolemia (E78.00) ActiveconfirmedProblemSecondary pulmonary hypertension (51142050)Other secondary pulmonary hypertension (I27.29)ActiveconfirmedProblemBody mass index 30.00 to 34.99 (715833001453949)Body mass index [BMI] 31.0-31.9, adult (Z68.31)Active confirmedProblemGastroesophageal reflux disease with esophagitis (disorder) (052946690)Gastroesophageal reflux disease with esophagitis without hemorrhage (K21.00)ActiveconfirmedProblemHistory of COVID-19 (511522281673036382)History of COVID-19 (Z86.16)Activeconfirmed Encounters Encounter Location Date Provider Diagnosis [facility] [place] [address] [place] [address] 11/17/2024 Rogelio Smith Plan Of Treatment No Information Insurance Providers Payer Name Payer Address Payer Phone Subscriber Number Group Number Insured Name Patient Relationship to Insured Coverage Start Date Coverage End Date [place] [address] [address] [id number] SureshRosalind merino - patient is the [id number] MEDICARE SUPPLEMENTPO [address] [place] [id number] SureshAfsaneh merinoPaddy - patient is the [id number] 2016 Medical (General) History Medical History History [...] Surgical History Surgery Date(Month/Year) Sinus polypectomy cardiac ccbowhqwsfdincz18/18/2023Nerve Ablation-Back06/20/2022ack Injection 07/25/2022LaminectomyCholecystectomyappendectomyhysterectomy, abdominal
--- OUTSIDE RECORDS SUMMARY | 2025-04-16 09:19 | XMS_ITS | Encounter Summary ---
Author Organization [facility] Address [address] [place] [address] Care Team Providers Care Supervisor Floor Assembly Name Role Phone Ovi Crooks DO Primary Care Provider [phone] Reason for Visit * ReasonCommentsMed Refill Encounter Details DateTypeDepartmentCare Team (Latest Contact Info)Ahktuauhjqc16/10/2025Refill [facility] at [facility] [address] [place] [address] Nik Gr MD [address] [facility] [address] [place] [address] Coronary artery disease of [place] heart with stable angina pectoris, unspecified vessel or lesion type Social History Tobacco UseTypesPacks/DayYears UsedDateSmoking Tobacco: NeverSmokeless Tobacco: NeverAlcohol UseStandard Drinks/WeekCommentsNot Currently0 (1 standard drink = 0.6 oz pure alcohol)DE Safety & EnvironmentAnswerDate RecordedFear of Current or Ex-PartnerNot on file06/21/2023Emotionally AbusedNot on file06/21/2023hysically AbusedNot on file06/21/2023Sexually AbusedNot on file06/21/2023hysically or Sexually AbusedNot on file06/21/2023CommentsNoSex and Gender Information ValueDate RecordedSex Assigned at BirthNot on fileLegal WbuKaxfkh12/29/2022 10:33 PM EDTGender IdentityNot on fileSexual OrientationNot on filedocumented as of this encounter Plan of Treatment Not on file documented as of this encounter Visit Diagnoses Diagnosis Coronary artery disease of [place] heart with stable angina pectoris, unspecified vessel or lesion type documented in this encounter Care Teams Team MemberRelationshipSpecialtyStart DateEnd Date Ovi Crooks DO [address] [place] [id number] PCP - General05/09/22documented as of this encounter
--- OUTSIDE RECORDS SUMMARY | 2025-04-16 09:19 | XMS_ITS | Encounter Summary ---
Author Organization [facility] Address [address] [place] [address] Care Team Providers Care Recreational Aide Name Role Phone Ovi Crooks DO Primary Care Provider [phone] Reason for Visit * ReasonCommentsMed Refill Encounter Details DateTypeDepartmentCare Team (Latest Contact Info)Armrofgkvpk63/17/2025Refill [facility] Heart at [facility] [address] [place] [address] Nik Gr MD [address] [facility] [address] [place] [address] Coronary artery disease of [place] heart with stable angina pectoris, unspecified vessel or lesion type Social History Tobacco UseTypesPacks/DayYears UsedDateSmoking Tobacco: NeverSmokeless Tobacco: NeverAlcohol UseStandard Drinks/WeekCommentsNot Currently0 (1 standard drink = 0.6 oz pure alcohol)SC Safety & EnvironmentAnswerDate RecordedFear of Current or Ex-PartnerNot on file06/21/2023Emotionally AbusedNot on file06/21/2023hysically AbusedNot on file06/21/2023Sexually AbusedNot on file06/21/2023hysically or Sexually AbusedNot on file06/21/2023CommentsNoSex and Gender Information ValueDate RecordedSex Assigned at BirthNot on fileLegal CwdNureoo11/29/2022 10:33 PM EDTGender IdentityNot on fileSexual OrientationNot on filedocumented as of this encounter Plan of Treatment Not on file documented as of this encounter Visit Diagnoses Diagnosis Coronary artery disease of [place] heart with stable angina pectoris, unspecified vessel or lesion type documented in this encounter Care Teams Team MemberRelationshipSpecialtyStart DateEnd Date Ovi Crooks DO [address] [place] [address] PCP - General05/09/22documented as of this encounter
--- NOTE | 2025-04-16 09:30 | PM.CN ---
Consult Note: HPI Data of Consult Patient: known to practice within the last 3 years Consult date: 04/16/25 Requesting Physician: Kelly Lott NP Primary Care Provider: Ovi Crooks DO Consult Narrative Reason for consult: low back pain Narrative: Rupali Richardson a pleasant 84 year old female presents for evaluation of chronic low back pain secondary to lumbar stenosis, lumbar ddd, and lumbar spondylosis. Pt has failed to benefit from > 6 weeks of PT/HEP, heat, ice, tylenol, nsaids. continues to utilize tylenol and gabapentin, cannot take NSAIDs as she is on plavix. has not needed baclofen but has available at home. denies fall/injury since last visit. Pt noting pain 1/10 increasing to 2/10. Pain increases with pushing, pulling, standing, walking. Notes improvement with sitting. Recently underwent left L4-5 L5-S1 TFESI with >90% improvement ongoing. does not mild bilateral sij pain with activity. cc:: CC: Kelly Lott NP Review of Systems ROS Musculoskeletal Reports: back pain; Denies: extremity pain [facility] Medical History (Updated 12/03/24 @ 08:47 by Kelly Lott NP) Acute hypotension ?I95.9 - Hypotension, unspecified (ICD-10) Pleuritic chest pain ?R07.81 - Pleurodynia (ICD-10) Anticoagulant long-term use ?Z79.01 - alf (current) use of anticoagulants (ICD-10) Lumbar spondylosis ?M47.816 - Spondylosis without myelopathy or radiculopathy, lumbar region (ICD-10) Numbness and tingling ?R20.0 - Anesthesia of skin (ICD-10) ?R20.2 - Paresthesia of skin (ICD-10) Osteoarthritis ?M19.90 - Unspecified osteoarthritis, unspecified site (ICD-10) Upper back pain ?M54.9 - Dorsalgia, unspecified (ICD-10) Low back pain ?M54.50 - Low back pain, unspecified (ICD-10) Acid reflux ?K21.9 - Gastro-esophageal reflux disease without esophagitis (ICD-10) Obesity ?E66.9 - Obesity, unspecified (ICD-10) Sleep apnea ?G47.30 - Sleep apnea, unspecified (ICD-10) Atrial fibrillation ?I48.91 - Unspecified atrial fibrillation (ICD-10) Surgical History 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 - Acquired absence of unspecified finger(s) (ICD-10) S/P lumbar spine operation ?Z98.890 - Other specified postprocedural states (ICD-10) S/P thoracentesis ?Z98.890 - Other specified postprocedural states (ICD-10) S/P sinus surgery ?Z98.890 - Other specified postprocedural states (ICD-10) H/O hand surgery ?Z98.890 - Other specified postprocedural states (ICD-10) H/O cardiac catheterization ?Z98.890 - Other specified postprocedural states (ICD-10) History of hysterectomy ?Z90.710 - Acquired absence of both cervix and uterus (ICD-10) History of cholecystectomy ?Z90.49 - Acquired absence of other specified parts of digestive tract (ICD-10) Hx of appendectomy ?Z90.49 - Acquired absence of other specified parts of digestive tract (ICD-10) Social History Highest level of school completed/degree received: high school graduate Little interest or pleasure in doing things: not at all Feeling down, depressed, or hopeless: not at all Meds Home Medications and Allergies Home Medications ?Medication ?Instructions ?Recorded ?Confirmed ?Type atorvastatin 40 mg tablet 40 mg PO DAILY 10/05/22 04/06/25 History escitalopram oxalate 10 mg tablet 10 mg PO DAILY 10/05/22 04/06/25 History (Lexapro) gabapentin 100 mg capsule 100 mg PO BID 10/05/22 04/06/25 History isosorbide mononitrate 30 mg 30 mg PO DAILY 10/05/22 04/06/25 History tablet,extended release 24 hr losartan 50 mg tablet 50 mg PO DAILY 10/05/22 04/06/25 History metoprolol tartrate 25 mg tablet 12.5 mg PO DAILY 10/05/22 04/06/25 History oxybutynin chloride 15 mg 15 mg PO DAILY 10/05/22 04/06/25 History tablet,extended release 24 hr clopidogrel 75 mg PO DAILY 04/12/23 04/06/25 History budesonide-formoterol HFA 160 2 puff inhalation Q12H 03/08/24 04/06/25 History mcg-4.5 mcg/actuation aerosol inhaler (Symbicort) hydrochlorothiazide 25 mg tablet 25 mg PO QAM 03/08/24 04/06/25 History omeprazole 40 mg capsule,delayed 40 mg PO .ACB 03/08/24 04/06/25 History release baclofen 10 mg tablet 10 mg PO BID PRN muscle spasm #180 12/03/24 04/06/25 Rx tabs fexofenadine 180 mg tablet 180 mg PO DAILY 12/22/24 04/06/25 History (Leslie Allergy) Allergies Allergy/AdvReac Type Severity Reaction Status Date / Time midazolam (From Versed) Allergy Unknown Vomiting Verified 04/06/25 09:09 Exam Constitutional Documenting provider has reviewed patient's vital signs: yes Common normals: no apparent distress, oriented x3 and alert General appearance: cooperative HENMT Common normals: normocephalic, hearing grossly normal bilaterally and moist oral mucous membranes Head and scalp: normocephalic Eye Common normals: PERRL Pupil: PERRL Neck & C-Spine Common normals: full ROM General: normal visual inspection Chest Common normals: inspection of chest normal Respiratory Common normals: normal respiratory effort, no retractions and no use of accessory muscles Back & Pelvis Thoracic spine/upper back: thoracic spinal tenderness (right T9-12); no pain with ROM Lumbar spine/lower back: lumbar spinal tenderness and straight leg raise negative bilaterally; no pain with ROM Sacroiliac joints: SI joint(s) abnormal Other: strength 5/5 in BLE sensation intact BLE positive bilateral michelle(patricks), gaenslens, thigh thrust, compression test Neuro Common normals: oriented x3 Sensorium/orientation: alert Psych Common normals: mental status grossly normal, thought process normal, cooperative, affect normal, speech normal and activity/motor behavior normal Speech: normal speech Thought process: normal thought process Results Additional Findings Additional findings: If on a controlled substance or opioids, I have checked an [place] report on this patient and there are no aberrancies noted in the prescribing history.??If on a controlled substance or opioid a drug screen was completed and reviewed within the last year, and if there has not been a drug screen completed we ordered one today to monitor higher risk, state monitored pain medication use. As part of providing excellent, safe, comprehensive care, the following was completed at our patient's visit: 1. A medication reconciliation and review to ensure accurate knowledge of current/active medications, including asking our patients to inform us about any mvxh-ckf-ponqprj medications or herbal remedies/nutritional supplements/alternative remedies. 2. A review to specifically ensure our patients have had annual screening for screening for depression, screening for tobacco use, and screening for unhealthy alcohol use. For concerning screenings had a discussion with the patient, provided patient education, and recommended follow-up with primary care provider when appropriate. If patient noted with a risk of falling, they received education on strength, gait, and balance training to prevent future risk of falling. Portions of this note may have been carried over from the previous visit and updated as appropriate. Please note this office utilizes paper charting in addition to the electronic medical record. A list of current medications, vitals, and PMH is available there as the clinical staff outside of myself do not have access to [employer] charting during the clinic day operations. As part of providing quality comprehensive care the current medications, vitals, and PMH were reviewed in the paper chart. Assessment and Plan Assessment and Plan (1) Sacroiliitis: (2) Lumbar stenosis with neurogenic claudication: (3) Myalgia, other site: (4) Lumbar spondylosis: Plan The patient has had over 3 months of moderate to severe low back and bilateral SIJ pain with functional impairment and inadequate response to conservative care including NSAIDS (unless there are contraindication such as concurrent blood thinners), multiple oral or topical pain medications, and home exercise program/physical therapy.? Patient has completed >6 weeks of guided home exercise program and/or formal physical therapy program without relief of their symptoms.? I have reviewed the imaging of the lumbar spine and no red flags were identified.? can schedule bilateral SIJ injection under fluoroscopy when needed, pain well controlled at this time continue baclofen 5-10mg bid prn pain/spasms f/u after procedure, or 3 months for medication management
== END 2025-04-16 09:09 | disposition home or self-care (01) ==
LOC: PM 09:11
PROVIDERS: PCP Internal Medicine; Visit Provider Nurse Practitioner
DX: M46.1 Sacroiliitis, not elsewhere classified (principal); M48.062 Spinal stenosis, lumbar region with neurogenic claudication; M79.18 Myalgia, other site; M47.816 Spondylosis without myelopathy or radiculopathy, lumbar region
CPT/HCPCS: G0463